=== PATIENT | male | born 1965 ===

== ENCOUNTER 2021-01-30 09:42 | Inpatient (IN) | payer BC, MEDICAID, MEDICARE ==
[2021-01-30] MEDS ORDERED: LACTULOSE 20 GM/30 ML ORAL LIQD PO ONE ×2 (11:00→19:22)
[2021-01-30] MEDS ORDERED: DEXTROSE 50% IN WATER (25GM) 50 ML VIAL IV PRN (11:00)
--- NOTE | 2021-01-30 11:03 | Emergency Department Report ---
ED General Adult HPI - General Chief complaint: Hyperglycemia Stated complaint: AMS/HYPOLYCEMIA PUI?: No Time Seen by Provider: 01/30/21 10:12 Source: patient, EMS ( EMS documentation not available at time of chart dictat ion ), RN notes reviewed, old records reviewed Mode of arrival: Stretcher Limitations: Altered Mental Status, Physical Limitation - History of Present Illness Initial comments: The patient was evaluated in the emergency department for symptoms described in the history of present illness. He/she was evaluated in the context of the global COVID-19 pandemic, which necessitated consideration that the patient might be at risk for infection with the virus that causes COVID-19. Institutional protocols and algorithms that pertain to the evaluation of patients at risk for COVID-19 are in a state of rapid change based on information released by regulatory bodies including the CDC and federal and state organizations. These policies and algorithms were followed during the patient's care in the emergency department. Please note that these policies, procedures and recommendations changed on a rapid basis. This is a 55-year-old gentleman. He is not known to myself previously. 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 This patient was recently admitted to [facility]. He presented with a toxic metabolic encephalopathy in the context of recently missed hemodialysis sessions and hepatic encephalopathy. His encephalopathy was resolved with hemodialysis,rifaxamin, and lactulose. While hospitalized at [facility], hemoglobin trended down from 9-7. He was started on octreotide, GI consulted, EGD performed on January 24 showed no actively bleeding vessels, scattered duodenal polyps. On day of discharge, hemoglobin was 7.3. He was referred to outpatient [facility]. Outpatient work-up was recommended, including outpatient CBC, outpatient GI evaluation for possible liver transplant, and MRI abdomen to better characterize liver. The patient presents to the ER today with a complaint of altered mental status and resolved hypoglycemia. The patient is currently altered. He is breathing spontaneously. He does not really follow commands. As per nursing documentation, initial sugar was 43, patient given amp of D50, blood sugar improved to 393. The patient is not currently accompanied by friends or family at this time to further elaborate on the qualitative nature of symptoms, exacerbating factors, relieving factors or aggravating factors. His last known well time is not explicitly known. He groans in response to painful stimuli. In the emergency room, Accu-Chek within normal limits, he is also found to be hypothermic with a rectal temperature of 91 degrees. His paperwork does not specify who his outpatient senior telecommunications consultant is. It is also not know what specific days he receives hemodialysis. -: unknown Radiation: other Severity scale (0 -10): 0 Quality: other Consistency: other Improves with: other Worsens with: other Associated Symptoms: weakness, other - Related Data Allergies Allergy/AdvReac Type Severity Reaction Status Date / Time No Known Allergies Allergy Unverified 01/30/21 09:58 ED Review of Systems ROS: Stated complaint: AMS/HYPOLYCEMIA Other details as noted in HPI Comment: Unobtainable due to pts medical conditions ED Past Medical Hx - Past Medical History Previous Medical History?: Yes Hx Hypertension: Yes Hx Diabetes: Yes - Surgical History Additional Surgical History: RBKA - Social History Smoking Status: Never Smoker ED Physical Exam - General Limitations: Altered Mental Status, Physical Limitation General appearance: lethargic - Head Head exam: Present: atraumatic, normocephalic - Eye Eye exam: Present: normal appearance, PERRL - ENT ENT exam: Present: mucous membranes dry, normal external ear exam - Neck Neck exam: Present: normal inspection. Absent: tenderness, meningismus - Respiratory Respiratory exam: Present: decreased breath sounds. Absent: respiratory di stress, wheezes, rales, rhonchi, stridor - Cardiovascular Cardiovascular Exam: Present: regular rate, normal rhythm, normal heart sounds. Absent: bradycardia, tachycardia, irregular rhythm, systolic murmur, diastolic murmur, rubs, gallop - GI/Abdominal GI/Abdominal exam: Present: soft. Absent: distended, tenderness, guarding, rebound, rigid, pulsatile mass - Rectal Rectal exam: Present: deferred - exam: Present: normal inspection External exam: Present: normal external exam - Extremities Exam Extremities exam: Present: normal inspection (2+ pulses noted in the bilateral upper extremities. 2+ pulses noted in the bilateral lower extremities. There is no long bony tenderness. The muscular compartments are soft. The pelvis is stable.), other (Status post right below-knee amputation. Right upper extremity fistula noted, without redness, pus or streaking.). Absent: tenderness, calf tenderness - Back Exam Back exam: Present: normal inspection. Absent: tenderness, CVA tenderness (R), CVA tenderness (L), paraspinal tenderness, vertebral tenderness - Neurological Exam Neurological exam: Present: altered, other (The patient is sleepy but arousable. He moves 4 extremities. He groans in response to stimuli.) - Psychiatric Psychiatric exam: Present: other (The patient is nonverbal) - Skin Skin exam: Present: warm, dry, intact, normal color ED Course Vital Signs 01/30/21 01/30/21 01/30/21 10:09 11:34 11:38 Temperature 97.6 F 91.8 F L 91.8 F L Pulse Rate 61 Respiratory 18 Rate Blood Pressure 118/57 [Left] O2 Sat by Pulse 98 Oximetry 01/30/21 13:16 Temperature Pulse Rate 80 Respiratory 10 L Rate Blood Pressure 180/95 [Left] O2 Sat by Pulse 100 Oximetry - Reevaluation(s) Reevaluation #1: 01/30/21 12:25 Differential diagnosis, including but not limited to: Hepatic encephalopathy, uremic encephalopathy, intracranial hemorrhage, pneumonia, urinary tract infection, toxic metabolic encephalopathy, sepsis Assessment and plan: 55-year-old gentleman, who is hypothermic with a core temperature of 91 degrees, history of hypoglycemia, history of hepatic encephalopathy, toxic metabolic encephalopathy, recently discharged from another hospital, who is likely presenting with the same. Start patient on active patient rewarming. Administer ceftriaxone empirically. Continue lactulose and rifaximin. Noncontrast CT scan of the brain negative for acute findings. Serum toxicology study negative. TSH within normal limits. Ammonia level pending. Have discussed with nephrology, Dr. Live, who has examined this patient, and will follow in consultation. Accu-Cheks every 1 hour, as needed dextrose. Patient will be to the medical service under the care of Dr. Fry. We will defer to inpatient team to follow-up on urinalysis. Elevated troponin is likely a type II troponin leak. EKG not consistent with STEMI. 01/30/21 12:27 Reevaluation #2: 01/30/21 12:48 Nursing team reports Accu-Chek of 56. They are instructed to administer dextrose as ordered. Reevaluation #3: 01/30/21 13:58 Patient more awake, eating a meal. Hyperammonemia noted, 74. To defer to inpatient team for further management ED Medical Decision Making - Lab Data Result diagrams: 01/30/21 11:11 01/30/21 11:11 Vital Signs 01/30/21 01/30/21 01/30/21 10:09 11:34 11:38 Temperature 97.6 F 91.8 F L 91.8 F L Pulse Rate 61 Respiratory 18 Rate Blood Pressure 118/57 [Left] O2 Sat by Pulse 98 Oximetry Lab Results 01/30/21 01/30/21 01/30/21 Range/Units 11:11 11:11 11:11 WBC 3.5 L (4.5-11.0) K/mm3 RBC 2.51 L (3.65-5.03) M/mm3 Hgb 7.9 L (11.8-15.2) gm/dl Hct 22.7 L (35.5-45.6) % MCV 90 (84-94) fl MCH 32 (28-32) pg MCHC 35 H (32-34) % RDW 15.1 (13.2-15.2) % Plt Count 70 L (140-440) K/mm3 Lymph % (Auto) 10.2 L (13.4-35.0) % [place] % (Auto) 6.0 (0.0-7.3) % Eos % (Auto) 0.2 (0.0-4.3) % Baso % (Auto) 0.2 (0.0-1.8) % Lymph # (Auto) 0.4 L (1.2-5.4) K/mm3 [place] # (Auto) 0.2 (0.0-0.8) K/mm3 Eos # (Auto) 0.0 (0.0-0.4) K/mm3 Baso # (Auto) 0.0 (0.0-0.1) K/mm3 Seg Neutrophils % 83.4 H (40.0-70.0) % Seg Neutrophils # 2.9 (1.8-7.7) K/mm3 PT 15.0 H (12.2-14.9) Sec. INR 1.20 H (0.87-1.13) APTT 27.2 (24.2-36.6) Sec. Sodium 140 (137-145) mmol/L Potassium 5.0 (3.6-5.0) mmol/L Chloride 101.0 (98-107) mmol/L Carbon Dioxide 24 (22-30) mmol/L Anion Gap 20 mmol/L BUN 81 H (9-20) mg/dL Creatinine 9.1 H (0.8-1.3) mg/dL Estimated GFR 6 ml/min BUN/Creatinine Ratio 9 % Glucose 82 (75-100) mg/dL Lactic Acid (0.7-2.0) mmol/L Calcium 9.0 (8.4-10.2) mg/dL Magnesium 2.30 (1.7-2.3) mg/dL Total Bilirubin 0.70 (0.1-1.2) mg/dL AST 15 (5-40) units/L ALT 14 (7-56) units/L Alkaline Phosphatase 151 H (35-129) units/L Total Creatine Kinase 45 L (55-170) units/L Troponin T 0.137 H* (0.00-0.029) ng/mL Total Protein 6.6 (6.3-8.2) g/dL Albumin 2.8 L (3.9-5) g/dL Albumin/Globulin Ratio 0.7 % TSH (0.270-4.200) mlU/mL Salicylates (2.8-20.0) mg/dL Acetaminophen (10.0-30.0) ug/mL Plasma/Serum Alcohol (0-0.07) % 01/30/21 01/30/21 01/30/21 Range/Units 11:11 11:11 11:11 WBC (4.5-11.0) K/mm3 RBC (3.65-5.03) M/mm3 Hgb (11.8-15.2) gm/dl Hct (35.5-45.6) % MCV (84-94) fl MCH (28-32) pg MCHC (32-34) % RDW (13.2-15.2) % Plt Count (140-440) K/mm3 Lymph % (Auto) (13.4-35.0) % [place] % (Auto) (0.0-7.3) % Eos % (Auto) (0.0-4.3) % Baso % (Auto) (0.0-1.8) % Lymph # (Auto) (1.2-5.4) K/mm3 [place] # (Auto) (0.0-0.8) K/mm3 Eos # (Auto) (0.0-0.4) K/mm3 Baso # (Auto) (0.0-0.1) K/mm3 Seg Neutrophils % (40.0-70.0) % Seg Neutrophils # (1.8-7.7) K/mm3 PT (12.2-14.9) Sec. INR (0.87-1.13) APTT (24.2-36.6) Sec. Sodium (137-145) mmol/L Potassium (3.6-5.0) mmol/L Chloride (98-107) mmol/L Carbon Dioxide (22-30) mmol/L Anion Gap mmol/L BUN (9-20) mg/dL Creatinine (0.8-1.3) mg/dL Estimated GFR ml/min BUN/Creatinine Ratio % Glucose (75-100) mg/dL Lactic Acid 1.40 (0.7-2.0) mmol/L Calcium (8.4-10.2) mg/dL Magnesium (1.7-2.3) mg/dL Total Bilirubin (0.1-1.2) mg/dL AST (5-40) units/L ALT (7-56) units/L Alkaline Phosphatase (35-129) units/L Total Creatine Kinase (55-170) units/L Troponin T (0.00-0.029) ng/mL Total Protein (6.3-8.2) g/dL Albumin (3.9-5) g/dL Albumin/Globulin Ratio % TSH 1.690 (0.270-4.200) mlU/mL Salicylates < 0.3 L (2.8-20.0) mg/dL Acetaminophen (10.0-30.0) ug/mL Plasma/Serum Alcohol (0-0.07) % 01/30/21 01/30/21 Range/Units 11:11 11:11 WBC (4.5-11.0) K/mm3 RBC (3.65-5.03) M/mm3 Hgb (11.8-15.2) gm/dl Hct (35.5-45.6) % MCV (84-94) fl MCH (28-32) pg MCHC (32-34) % RDW (13.2-15.2) % Plt Count (140-440) K/mm3 Lymph % (Auto) (13.4-35.0) % [place] % (Auto) (0.0-7.3) % Eos % (Auto) (0.0-4.3) % Baso % (Auto) (0.0-1.8) % Lymph # (Auto) (1.2-5.4) K/mm3 [place] # (Auto) (0.0-0.8) K/mm3 Eos # (Auto) (0.0-0.4) K/mm3 Baso # (Auto) (0.0-0.1) K/mm3 Seg Neutrophils % (40.0-70.0) % Seg Neutrophils # (1.8-7.7) K/mm3 PT (12.2-14.9) Sec. INR (0.87-1.13) APTT (24.2-36.6) Sec. Sodium (137-145) mmol/L Potassium (3.6-5.0) mmol/L Chloride (98-107) mmol/L Carbon Dioxide (22-30) mmol/L Anion Gap mmol/L BUN (9-20) mg/dL Creatinine (0.8-1.3) mg/dL Estimated GFR ml/min BUN/Creatinine Ratio % Glucose (75-100) mg/dL Lactic Acid (0.7-2.0) mmol/L Calcium (8.4-10.2) mg/dL Magnesium (1.7-2.3) mg/dL Total Bilirubin (0.1-1.2) mg/dL AST (5-40) units/L ALT (7-56) units/L Alkaline Phosphatase (35-129) units/L Total Creatine Kinase (55-170) units/L Troponin T (0.00-0.029) ng/mL Total Protein (6.3-8.2) g/dL Albumin (3.9-5) g/dL Albumin/Globulin Ratio % TSH (0.270-4.200) mlU/mL Salicylates (2.8-20.0) mg/dL Acetaminophen 5.0 L (10.0-30.0) ug/mL Plasma/Serum Alcohol < 0.01 (0-0.07) % - EKG Data -: EKG Interpreted by Me EKG shows normal: sinus rhythm Rate: normal - EKG Data When compared to previous EKG there are: previous EKG unavailable 01/30/21 12:23 EKG interpreted at 11: 22 Sinus rhythm, 68 bpm. Normal axis. QTC prolonged, motion artifact. Poor R wave progression. Abnormal EKG. Not a STEMI. No prior for comparison - Radiology Data Radiology results: report reviewed, image reviewed CHEST 1 VIEW INDICATION: Altered mental status, difficulty in breathing. COMPARISON: None FINDINGS: Support devices: None. Heart: Within normal limits. Lungs/Pleura: No acute air space or interstitial disease. Additional findings: None. IMPRESSION: No acute findings. Signer Name: Miguel Banks Jr, MD Signed: 01/30/2021 10:45 AM Workstation Name: [id number] CT BRAIN: 01/30/2021 INDICATION / CLINICAL INFORMATION: Altered Mental Status. COMPARISON: None available. FINDINGS: BRAIN/INTRACRANIAL STRUCTURES: Unenhanced CT images of the brain demonstrate no evidence of acute intracranial abnormality. Ventricles and sulci are within normal limits of size and shape for a patient of this age. Chronic white matter hypoattenuation is noted. There is possible chronic lacunar changes present in the fiona. There is no evidence of acute ischemic injury, hemorrhage, or mass. Prominent atherosclerotic vascular calcifications are associated with the distal vertebral arteries, left greater than right. Atherosclerotic changes are also associated with distal internal carotid arteries. EXTRACRANIAL STRUCTURES: Patient is status post left ocular surgery. IMPRESSION: No acute intracranial abnormality. All CT scans at this location are performed using dose reduction to ALARA by means of automated exposure control. Signer Name: Lanre Mc MD Signed: 01/30/2021 10:53 AM Workstation Name: [id number] Critical Care Time: Yes Critical care time in (mins) excluding proc time.: 35 Critical care attestation.: If time is entered above; I have spent that time in minutes in the direct care of this critically ill patient, excluding procedure time. ED Disposition Clinical Impression: Acute encephalopathy, End stage renal disease, History of hypoglycemia, Amputation of right lower extremity below knee, Hypothermia, Anemia Disposition: DC-09 OP ADMIT IP TO THIS HOSP Is pt being admited?: Yes Does the pt Need Aspirin: No Condition: Fair Referrals: PRIMARY CARE, [Primary Care Provider] - 3-5 Days
[2021-01-30] MEDS ORDERED: LACTULOSE ENEMA 1000 ML PR SCH (11:30)
[2021-01-30 11:35] LABS: Basophils % (Auto) 0.2 % (0.0-1.8); Eosinophils % (Auto) 0.2 % (0.0-4.3); Hematocrit 22.7 % (35.5-45.6); Hemoglobin 7.9 gm/dl (11.8-15.2); Lymphocytes # (Auto) 0.4 K/mm3 (1.2-5.4); Lymphocytes % (Auto) 10.2 % (13.4-35.0); Mean Corpuscular HGB Conc 35 % (32-34); Mean Corpuscular Volume 90 fl (84-94); Monocytes # (Auto) 0.2 K/mm3 (0.0-0.8); Red Blood Count 2.51 M/mm3 (3.65-5.03); Red Cell Distribution Width 15.1 % (13.2-15.2)
[2021-01-30 11:36] LABS: Platelet Count 70 K/mm3 (140-440)
--- NOTE | 2021-01-30 11:42 | Consultation ---
History of Present Illness - Reason for Consult Consult date: 01/30/21 end stage renal disease - History of Present Illness The patient is a 55 YO male with history significant for HTN, DM type 2, ESRD on HD (MWF), Noncompliance with outpatient dialysis, Anemia, HBV, Chronic Liver Disease, Cirrhosis complicated by Esophageal Varices and Debility who [facility] for evaluation of AMS. Patient is confused with and is unable to provide a good history. Family found patient to have increased confusion. EMS was notified and upon arrival the patient was found to have a blood glucose in the 50s. The patient was treated with supportive care and subsequently transported to the ED. The patient was found to have hepatic encephalopathy. He was admitted for further evaluation. Nephrology was consulted for further evaluation. Past History Past Medical History: other (See HPI.) Medications and Allergies Allergies Allergy/AdvReac Type Severity Reaction Status Date / Time No Known Allergies Allergy Unverified 01/30/21 09:58 Active Meds: Active Medications Dextrose (Dextrose 50% In Water (25gm) 50 Ml Vial) 50 gm IV Q30MIN PRN; Protocol PRN Reason: Hypoglycemia Lactulose (Lactulose Enema 1000 Ml) 20 gm OH NOW LEYLA Stop: 01/30/21 13:00 Review of Systems ROS unobtainable: due to mental status Exam - Vital Signs Vital signs: Vital Signs Temp Pulse Resp BP Pulse Ox 97.6 F 61 18 118/57 98 01/30/21 10:09 01/30/21 10:09 01/30/21 10:09 01/30/21 10:09 01/30/21 10:09 Results - Lab Results 01/30/21 11:11 01/30/21 11:11 Assessment and Plan 1. ESRD: Patient is on maintenance hemodialysis three times a week, MWF schedule. Per patient last HD was on 01/28. Meds dosage based on GFR. Hemodialysis today. 2. FEN: Monitor lytes and volume status. 3. Anemia, POA: 2/2 ESRD and Liver disease. Epogen with HD. 4. Encephalopathy, POA: Likely hepatic encephalopathy. Lactulose. Hypoglycemia on admission. 5. Hypoglycemia: D5 infusion. 6. Thrombocytopenia, POA: 7. Hypertension: Monitor BP. Adjust meds as appropriate. Subjective: Patient was seen and examined at the bedside. General Appearance: General appearance: well-developed, appears stated age, not in distress HEENT: ATNC, pupils equal Neck: trachea midline Respiratory: ctab Heart: regular, S1S2, no murmur Abdomen: soft, bowel sounds heard, appears distended, not tender Integumentary: no rash, warm and dry Neurologic: lethargic, not following any command, confused Ext: no edema, R BKA Hemodialysis access: R arm AVF
[2021-01-30 11:43] LABS: INR 1.2 (0.87-1.13)
[2021-01-30 11:44] LABS: Partial Thromboplastin Time 27.2 Sec. (24.2-36.6)
--- NOTE | 2021-01-30 11:50 | XRay Report ---
CHEST 1 VIEW INDICATION: Altered mental status, difficulty in breathing. COMPARISON: None FINDINGS: Support devices: None. Heart: Within normal limits. Lungs/Pleura: No acute air space or interstitial disease. Additional findings: None. IMPRESSION: No acute findings. Signer Name: Miguel Banks Jr, MD Signed: 01/30/2021 11:45 AM Workstation Name: [id number]
--- NOTE | 2021-01-30 11:57 | Cat Scan Report ---
CT BRAIN: 01/30/2021 INDICATION / CLINICAL INFORMATION: Altered Mental Status. COMPARISON: None available. FINDINGS: BRAIN/INTRACRANIAL STRUCTURES: Unenhanced CT images of the brain demonstrate no evidence of acute int racranial abnormality. Ventricles and sulci are within normal limits of size and shape for a patient of this age. Chronic wh ite matter hypoattenuation is noted. There is possible chronic lacunar changes present in the fiona. There is no evidence of acute ischemic injury, hemorrhage, or mass. Prominent atherosclerotic vascular calcifications are associated with the distal vertebral arteries, left greater than right. Atherosclerotic changes are also associated with distal internal carotid art eries. EXTRACRANIAL STRUCTURES: Patient is status post left ocular surgery. IMPRESSION: No acute intracranial abnormality. All CT scans at this location are performed using dose reduction to ALARA by means of automated expos ure control. Signer Name: Lanre Mc MD Signed: 01/30/2021 11:53 AM Workstation Name: [id number]
[2021-01-30 11:58] LABS: Albumin 2.8 g/dL (3.9-5)
[2021-01-30] MEDS ORDERED: cefTRIAXone/NS 2 GM/100 ML 2 GM/100 ML BAG IV ONE (12:15)
--- NOTE | 2021-01-30 12:49 | History and Physical Report ---
History of Present Illness Chief complaint: He is confused History of present illness: 55 YO Male with ESRD on HD, Noncompliance with outpatient dialysis, Anemia, HBV, Chronic Liver Disease, Cirrhosis complicated by Esophageal Varices, HTN, Debility, DM presents to ED for evaluation. Patient is confused with diminished cognition and is unable to provide detailed history. Patient is only able to provide minimal history. Patient history taken from EMS staff, ED staff as well as patient family members. Patient family report the patient was found to have increased confusion today. EMS was notified and upon arrival the patient was found to be in distress with a blood glucose in the 50s. The patient was treate d with supportive care and subsequently transported to [facility] for further care and evaluation of the aforementioned symptoms. The patient was seen and evaluated in the emergency department. All lab and imaging studies reviewed. The patient was found to have hepatic encephalopathy complicated by diminished cognition, end-stage renal disease in need of urgent dialysis, as well as hypoglycemia. Nephrology team consulted in ED. Patient found to have recurrent hypoglycemia and was initiated on a dextrose drip with every hour glucose monitoring. The patient was admitted to [facility] due to increased risk of decompensation. No further history is obtainable. Patient is confused and lethargic the time my evaluation but has a positive gag reflex and is able to protect his airway without difficulty. No prior admission for review. No medication listed at time of admission for reconciliation. Past History Past Medical History: hypertension, hyperlipidemia Past Surgical History: Other (Right BKA) Social history: single. denies: smoking, alcohol abuse, prescription drug abuse Family history: hypertension Medications and Allergies Allergies Allergy/AdvReac Type Severity Reaction Status Date / Time No Known Allergies Allergy Unverified 01/30/21 09:58 Active Meds: Active Medications Dextrose (Dextrose 50% In Water (25gm) 50 Ml Vial) 50 gm IV Q30MIN PRN; Protocol PRN Reason: Hypoglycemia Dextrose/Sodium Chloride (D5/0.45ns) 1,000 mls @ 250 mls/hr IV DIRECT LEYLA Lactulose (Lactulose Enema 1000 Ml) 20 gm WI NOW LEYLA Stop: 01/30/21 13:00 Rifaximin (Rifaximin 550 Mg Tab) 550 mg PO NOW ONE Stop: 01/30/21 13:01 Review of Systems ROS unobtainable: due to mental status Exam - Constitutional Vitals: Temp Pulse Resp BP Pulse Ox 91.8 F L 61 18 118/57 98 01/30/21 11:38 01/30/21 10:09 01/30/21 10:09 01/30/21 10:09 01/30/21 10:09 General appearance: Present: mild distress, disheveled, malodorous - EENT Eyes: Present: PERRL ENT: clear oral mucosa, hearing decreased - Neck Neck: Present: supple, normal ROM - Respiratory Respiratory effort: normal Respiratory: bilateral: CTA - Cardiovascular Heart Sounds: Present: S1 & S2. Absent: rub, click - Extremities Extremities: pulses symmetrical, No edema Peripheral Pulses: within normal limits - Abdominal General gastrointestinal: Present: soft, non-tender, non-distended, normal bowel sounds Male genitourinary: Present: normal - Integumentary Integumentary: Present: clear, warm, dry - Musculoskeletal Musculoskeletal: generalized weakness - Psychiatric Psychiatric: appropriate mood/affect, intact judgment & insight, no memory intac t - Neurologic Neurologic: CNII-XII intact, moves all extremities HEART Score - HEART Score Troponin: Troponin T 0.137 ng/mL (0.00-0.029) H* 01/30/21 11:11 Results - Labs CBC & Chem 7: 01/30/21 11:11 01/30/21 11:11 Labs: Abnormal lab results 01/30/21 01/30/21 01/30/21 Range/Units 11:11 11:11 11:11 WBC 3.5 L (4.5-11.0) K/mm3 RBC 2.51 L (3.65-5.03) M/mm3 Hgb 7.9 L (11.8-15.2) gm/dl Hct 22.7 L (35.5-45.6) % MCHC 35 H (32-34) % Plt Count 70 L (140-440) K/mm3 Lymph % (Auto) 10.2 L (13.4-35.0) % Lymph # (Auto) 0.4 L (1.2-5.4) K/mm3 Seg Neutrophils % 83.4 H (40.0-70.0) % PT 15.0 H (12.2-14.9) Sec. INR 1.20 H (0.87-1.13) BUN 81 H (9-20) mg/dL Creatinine 9.1 H (0.8-1.3) mg/dL Alkaline Phosphatase 151 H (35-129) units/L Total Creatine Kinase 45 L (55-170) units/L Troponin T 0.137 H* (0.00-0.029) ng/mL Albumin 2.8 L (3.9-5) g/dL Salicylates (2.8-20.0) mg/dL Acetaminophen (10.0-30.0) ug/mL 01/30/21 01/30/21 Range/Units 11:11 11:11 WBC (4.5-11.0) K/mm3 RBC (3.65-5.03) M/mm3 Hgb (11.8-15.2) gm/dl Hct (35.5-45.6) % MCHC (32-34) % Plt Count (140-440) K/mm3 Lymph % (Auto) (13.4-35.0) % Lymph # (Auto) (1.2-5.4) K/mm3 Seg Neutrophils % (40.0-70.0) % PT (12.2-14.9) Sec. INR (0.87-1.13) BUN (9-20) mg/dL Creatinine (0.8-1.3) mg/dL Alkaline Phosphatase (35-129) units/L Total Creatine Kinase (55-170) units/L Troponin T (0.00-0.029) ng/mL Albumin (3.9-5) g/dL Salicylates < 0.3 L (2.8-20.0) mg/dL Acetaminophen 5.0 L (10.0-30.0) ug/mL Assessment and Plan - Patient Problems (1) End stage renal disease Current Visit: No Status: Acute Plan to address problem: Nephrology team consulted in ED. Dialysis as per renal team, strict I/O, monitor urine output every shift, avoid nephrotoxic agents. (2) Hepatic encephalopathy Current Visit: Yes Status: Acute Plan to address problem: CT head, neuro check, seizure precaution, aspiration precautions, fall precautions, supportive care. (3) Chronic liver disease and cirrhosis Current Visit: Yes Status: Acute Plan to address problem: Outpatient GI follow-up for possible liver transplant, supportive care. Ammonia level, continue medical management. (4) Hypoglycemia Current Visit: Yes Status: Acute Plan to address problem: Dextrose drip, Accu-Chek every hour, continue medical management. Admit to IMCU. (5) DVT prophylaxis Current Visit: Yes Status: Acute Plan to address problem: SCD to bilateral lower extremities while in bed.
[2021-01-30] MEDS ORDERED: DEXTROSE 50% IN WATER (25GM) 50 ML SYRINGE IV ONE (12:51)
[2021-01-30] MEDS ORDERED: SODIUM CHLORIDE 0.9% 100 ML IV PRN (13:00)
[2021-01-30] MEDS ORDERED: D5W/0.45% NACL 1,000 ML IV SCH (13:00)
[2021-01-30] MEDS ORDERED: DEXTROSE 50% IN WATER (25GM) 50 ML SYRINGE IV PRN ×2 (13:00→22:15)
[2021-01-30] MEDS ORDERED: EPOETIN ALFA-EPBX 20,000 UNIT/1 ML VIAL SUB-Q PRN (13:00)
[2021-01-30] MEDS ORDERED: RIFAXIMIN 550 MG TAB PO ONE (13:00)
[2021-01-30 13:21] LABS: Chol/HDL Ratio 2.43 %
[2021-01-30] MEDS ORDERED: ALBUTEROL 2.5 MG/3 ML NEBU IH PRN (13:26)
[2021-01-30 15:31] LABS: Hepatitis B Surface Antigen Non-Reactive (Negative); Hepatitis C Virus Antibody Non-Reactive (NonReactive)
[2021-01-30] MEDS ORDERED: traMADol 50 MG TAB PO PRN (22:17)
[2021-01-31 00:20] LABS: Amphetamine Screen,Urine PRESUMPTIVE NEGATIVE; Benzodiazepines Screen,Urine PRESUMPTIVE NEGATIVE; Cannabinoid Screen,Urine PRESUMPTIVE NEGATIVE; Cocaine Screen,Urine PRESUMPTIVE NEGATIVE; Methadone Screen,Urine PRESUMPTIVE NEGATIVE; Opiate Screen,Urine PRESUMPTIVE NEGATIVE
[2021-01-31 00:28] LABS: Bilirubin,Urine NEG (Negative); Blood,Urine NEG (Negative); Color,Urine Yellow (Yellow); Mucus,Urine FEW /HPF
[2021-01-31 06:53] LABS: Albumin 2.5 g/dL (3.9-5); Calcium 8.3 mg/dL (8.4-10.2)
--- NOTE | 2021-01-31 09:22 | Progress Note ---
Assessment and Plan 1. ESRD: Patient is on maintenance hemodialysis three times a week, MWF schedule. Per patient last HD was on 01/28. Meds dosage based on GFR. Hemodialysis: 01/30. 2. FEN: Monitor lytes and volume status. 3. Anemia, POA: 2/2 ESRD and Liver disease. Epogen with HD. 4. Encephalopathy, POA: Likely hepatic encephalopathy. Lactulose. Hypoglycemia on admission. MS is better today. 5. Hypoglycemia: Bl sugar is high now. Monitor. 6. Thrombocytopenia, POA: 7. Hypertension: Monitor BP. Adjust meds as appropriate. Subjective: Patient was seen and examined at the bedside. Doing ok. General Appearance: General appearance: well-developed, appears stated age, not in distress HEENT: ATNC, pupils equal Neck: trachea midline Respiratory: ctab Heart: regular, S1S2, no murmur Abdomen: soft, bowel sounds heard, appears distended, not tender Integumentary: no rash, warm and dry Neurologic: alert, able to move extremities, slight confusion noted Ext: no edema, R BKA Hemodialysis access: R arm AVF Subjective Date of service: 01/31/21 Objective - Vital Signs Vital signs: Vital Signs - 12hr 01/30/21 01/30/21 01/30/21 21:30 22:00 22:30 Temperature Pulse Rate 93 H 93 H 97 H Respiratory 15 11 L 15 Rate Blood Pressure 140/31 140/55 174/90 O2 Sat by Pulse 100 99 100 Oximetry 01/30/21 01/30/21 01/30/21 23:00 23:16 23:30 Temperature 97.8 F Pulse Rate 93 H 93 H 100 H Respiratory 10 L 12 13 Rate Blood Pressure 143/49 159/54 134/34 O2 Sat by Pulse 100 97 100 Oximetry 01/31/21 01/31/21 01/31/21 00:30 00:40 00:50 Temperature Pulse Rate 96 H 97 H Respiratory 10 L 12 Rate Blood Pressure 144/55 144/55 186/51 O2 Sat by Pulse 98 100 100 Oximetry 01/31/21 01/31/21 01/31/21 01:00 01:48 03:16 Temperature 97.8 F Pulse Rate 93 H 97 H Respiratory 18 Rate Blood Pressure 124/41 124/62 O2 Sat by Pulse 99 98 Oximetry 01/31/21 07:39 Temperature Pulse Rate 92 H Respiratory Rate Blood Pressure 126/64 O2 Sat by Pulse 98 Oximetry - Lab 01/30/21 11:11 01/31/21 05:48 Most recent lab results Calcium 8.3 mg/dL (8.4-10.2) L 01/31/21 05:48 Magnesium 2.30 mg/dL (1.7-2.3) 01/30/21 11:11 Medications & Allergies - Medications Allergies/Adverse Reactions: Allergies No Known Allergies Allergy (Unverified 01/30/21 09:58) Home Medications: Home Medications Medication Instructions Recorded Confirmed Last Taken Type Insulin Glargine [Lantus VIAL] 30 unit SUB-Q QHS 01/31/21 01/31/21 Unknown History Lispro Insulin [HumaLOG] 0 unit SQ ACHS 01/31/21 01/31/21 Unknown History Active Medications: Generic Name Dose Route Start Last Admin Trade Name Freq PRN Reason Stop Dose Admin Albuterol 2.5 mg 01/30/21 13:26 Albuterol 2.5 Mg/3 Ml Nebu IH Q4HRT PRN Shortness Of Breath Dextrose 50 ml 01/30/21 22:15 Dextrose 50% In Water (25gm) 50 Ml Syringe IV Q30MIN PRN Hypoglycemia Protocol Dextrose/Sodium Chloride 1,000 mls @ 250 mls/hr 01/30/21 13:00 01/30/21 13:03 D5/0.45ns IV 250 mls/hr DIRECT LEYLA Administration Sodium Chloride 100 mls @ 999 mls/hr 01/30/21 13:00 Nacl 0.9% IV OLIVIA PRN Hypotension Insulin Human Regular 0 units 01/31/21 07:30 Insulin Regular, Human 100 Units/1 Ml SUB-Q ACHS LEYLA Protocol Ondansetron HCl 4 mg 01/30/21 13:26 Ondansetron 4 Mg/2 Ml Inj IV Q8H PRN Nausea And Vomiting Sodium Chloride 10 ml 01/30/21 22:00 01/30/21 22:11 Sodium Chloride 0.9% 10 Ml Flush Syringe IV 10 ml BID LEYLA Administration Sodium Chloride 10 ml 01/30/21 13:26 Sodium Chloride 0.9% 10 Ml Flush Syringe IV PRN PRN LINE FLUSH Tramadol HCl 50 mg 01/30/21 22:17 01/30/21 23:00 Tramadol 50 Mg Tab PO 50 mg Q6H PRN Administration Pain, Moderate (4-6)
[2021-01-31] MEDS: INSULIN REGULAR, HUMAN 100 UNITS/1 ML SUB-Q SCH ×5 (09:33→22:00)
--- NOTE | 2021-01-31 12:05 | Electrocardiograph Report ---
[facility] Test Date: 2021-01-30 Test Time: 11:22:48 Pat Name: WHITNEY ESPOSITO Department: Room: A479 Gender: M Service Desk Technician: FRED : 1965 Requested By: GAY MACDONALD Order Number: [id number] Reading MD: Mary Vaughn Measurements Intervals [place] Rate: 68 P: 63 [place]: 131 QRS: -1 QRSD: 106 T: 33 QT: 485 QTc: 515 Interpretive Statements Sinus rhythm Prolonged QT interval No previous ECG available for comparison Electronically Signed On 01-31-2021 12:04:40 EDT by Mary Vaughn
[2021-02-01 06:22] LABS: Hemoglobin 6.7 gm/dl (11.8-15.2); Mean Corpuscular HGB Conc 35 % (32-34); Mean Corpuscular Volume 91 fl (84-94); Red Blood Count 2.12 M/mm3 (3.65-5.03); Red Cell Distribution Width 15.1 % (13.2-15.2)
[2021-02-01 06:24] LABS: Hematocrit 19.3 % (35.5-45.6); Platelet Count 62 K/mm3 (140-440)
[2021-02-01 06:43] LABS: Calcium 8.6 mg/dL (8.4-10.2)
[2021-02-01] MEDS ORDERED: SODIUM CHLORIDE 0.9% 500 ML 500 ML IV NR (07:40)
--- NOTE | 2021-02-01 08:15 | Progress Note ---
Assessment and Plan Assessment and Plan (1) Hepatic encephalopathy Current Visit: Yes Status: Acute Plan to address problem: CT head, neuro check, seizure precaution, aspiration precautions, fall precautions, supportive care. Patient lethargic and confused Continue lactulose Repeat ammonia level (2) End stage renal disease Current Visit: No Status: Acute Plan to address problem: Nephrology team consulted in ED. Dialysis as per renal team, strict I/O, monitor urine output every shift, avoid nephrotoxic agents. (3) Chronic liver disease and cirrhosis Current Visit: Yes Status: Acute Plan to address problem: Outpatient GI follow-up for possible liver transplant, supportive care. Ammonia level, continue medical management. (4) Hypoglycemia Current Visit: Yes Status: Acute Plan to address problem: Dextrose drip, Accu-Chek every hour, continue medical management. Admit to IMCU. (5) DVT prophylaxis Current Visit: Yes Status: Acute Plan to address problem: SCD to bilateral lower extremities while in bed. Subjective Date of service: 01/31/21 Principal diagnosis: Hepatic encephalopathy, end-stage renal disease on dialysis Interval history: History of present illness: 55 YO Male with ESRD on HD, Noncompliance with outpatient dialysis, Anemia, HBV, Chronic Liver Disease, Cirrhosis complicated by Esophageal Varices, HTN, Debility, DM presents to ED for evaluation. Patient is confused with diminished cognition and is unable to provide detailed history. Patient is only able to provide minimal history. Patient history taken from EMS staff, ED staff as well as patient family members. Patient family report the patient was found to have increased confusion today. EMS was notified and upon arrival the patient was found to be in distress with a blood glucose in the 50s. The patient was treated with supportive care and subsequently transported to [facility] for further care and evaluation of the aforementioned symptoms. The patient was seen and evaluated in the emergency department. All lab and imaging studies reviewed. The patient was found to have hepatic encephalopathy complicated by diminished cognition, end-stage renal disease in need of urgent dialysis, as well as hypoglycemia. Nephrology team consulted in ED. Patient found to have recurrent hypoglycemia and was initiated on a dextrose drip with every hour glucose monitoring. The patient was admitted to IMCU due to increased risk of decompensation. No further history is obtainable. Patient is confused and lethargic the time my evaluation but has a positive gag reflex and is able to protect his airway without difficulty. No prior admission for review. No medication listed at time of admission for reconciliation. Day #2 01/31/2021 Patient still lethargic and confused Objective - Constitutional Vitals: Vital Signs - 12hr 01/31/21 01/31/21 02/01/21 22:00 23:36 04:29 Temperature 98.6 F 98.0 F Pulse Rate 94 H 94 H 81 Respiratory 20 18 Rate Blood Pressure 137/71 132/65 O2 Sat by Pulse 100 98 Oximetry General appearance: Present: no acute distress, well-nourished - EENT Eyes: PERRL, EOM intact ENT: hearing intact, clear oral mucosa Ears: bilateral: normal - Neck Neck: supple, normal ROM - Respiratory Respiratory effort: normal Respiratory: bilateral: CTA - Breasts Breasts: normal - Cardiovascular Heart rate: 78 Rhythm: regular Heart Sounds: Present: S1 & S2. Absent: gallop, rub Extremities: pulses intact, No edema, normal color, Full ROM - Gastrointestinal General gastrointestinal: Present: soft, non-tender, non-distended, normal bowel sounds - Genitourinary Male genitourinary: normal - Integumentary Integumentary: clear, warm, dry - Musculoskeletal Musculoskeletal: strength equal bilaterally, generalized weakness - Neurologic Neurologic: moves all extremities, other (Patient lethargic and confused) - Psychiatric Psychiatric: memory intact, appropriate mood/affect, intact judgment & insight - Allied health notes Allied health notes reviewed: nursing, case management - Labs CBC & Chem 7: 02/01/21 05:08 02/01/21 05:08 Labs: Abnormal lab results 01/30/21 01/31/21 01/31/21 Range/Units 11:11 07:40 11:23 WBC (4.5-11.0) K/mm3 RBC (3.65-5.03) M/mm3 Hgb (11.8-15.2) gm/dl Hct (35.5-45.6) % MCHC (32-34) % Plt Count (140-440) K/mm3 Sodium (137-145) mmol/L Chloride (98-107) mmol/L BUN (9-20) mg/dL Creatinine (0.8-1.3) mg/dL Glucose (75-100) mg/dL POC Glucose 392 H 380 H (70-105) mg/dL Phosphorus (2.5-4.5) mg/dL Crossmatch See Detail 01/31/21 01/31/21 02/01/21 Range/Units 16:30 20:33 00:39 WBC (4.5-11.0) K/mm3 RBC (3.65-5.03) M/mm3 Hgb (11.8-15.2) gm/dl Hct (35.5-45.6) % MCHC (32-34) % Plt Count (140-440) K/mm3 Sodium (137-145) mmol/L Chloride (98-107) mmol/L BUN (9-20) mg/dL Creatinine (0.8-1.3) mg/dL Glucose (75-100) mg/dL POC Glucose 312 H 485 H 159 H (70-105) mg/dL Phosphorus (2.5-4.5) mg/dL Crossmatch 02/01/21 02/01/21 Range/Units 05:08 05:08 WBC 3.5 L (4.5-11.0) K/mm3 RBC 2.12 L (3.65-5.03) M/mm3 Hgb 6.7 L (11.8-15.2) gm/dl Hct 19.3 L* (35.5-45.6) % MCHC 35 H (32-34) % Plt Count 62 L (140-440) K/mm3 Sodium 135 L (137-145) mmol/L Chloride 95.0 L (98-107) mmol/L BUN 67 H (9-20) mg/dL Creatinine 7.9 H (0.8-1.3) mg/dL Glucose 214 H (75-100) mg/dL POC Glucose (70-105) mg/dL Phosphorus 6.00 H (2.5-4.5) mg/dL Crossmatch HEART Score - HEART Score Troponin: Troponin T 0.137 ng/mL (0.00-0.029) H* 01/30/21 11:11
[2021-02-01] MEDS ORDERED: LACTULOSE 20 GM/30 ML ORAL LIQD PO SCH (09:00)
[2021-02-01] MEDS: INSULIN REGULAR, HUMAN 100 UNITS/1 ML SUB-Q SCH ×4 (10:13→23:39)
[2021-02-01] MEDS ORDERED: SODIUM CHLORIDE 0.9% 250ML 250 ML ONE (10:16)
--- NOTE | 2021-02-01 13:18 | Progress Note ---
Assessment and Plan 1. ESRD: Patient is on maintenance hemodialysis three times a week, MWF schedule. Per patient last HD was on 01/28. Meds dosage based on GFR. Hemodialysis: 01/30, 02/01. 2. FEN: Monitor lytes and volume status. 3. Anemia, POA: 2/2 ESRD and Liver disease. Epogen with HD. S/p PRBC today. 4. Encephalopathy, POA: Likely hepatic encephalopathy. Lactulose. Hypoglycemia on admission. MS is better. 5. DM type 2: Hypoglycemia on admission. Bl sugar is high now. Monitor. 6. Thrombocytopenia, POA: 7. Hypertension: Monitor BP. Adjust meds as appropriate. Subjective: Patient was seen and examined at the bedside. Doing ok. General Appearance: General appearance: well-developed, appears stated age, not in distress HEENT: ATNC, pupils equal Neck: trachea midline Respiratory: ctab Heart: regular, S1S2, no murmur Abdomen: soft, bowel sounds heard, appears distended, not tender Integumentary: no rash, warm and dry Neurologic: alert, able to move extremities, slight confusion noted Ext: no edema, R BKA Hemodialysis access: R arm AVF Subjective Date of service: 02/01/21 Principal diagnosis: Hepatic encephalopathy, end-stage renal disease on dialysis Objective - Vital Signs Vital signs: Vital Signs - 12hr 02/01/21 02/01/21 02/01/21 04:29 10:00 10:05 Temperature 98.0 F 97.9 F Pulse Rate 81 87 79 Respiratory 18 20 Rate Blood Pressure 132/65 178/76 165/77 O2 Sat by Pulse 98 Oximetry 02/01/21 02/01/21 02/01/21 10:15 10:30 10:45 Temperature Pulse Rate 86 92 H 63 Respiratory Rate Blood Pressure 156/63 142/56 154/60 O2 Sat by Pulse Oximetry 02/01/21 02/01/21 02/01/21 11:00 11:15 11:30 Temperature Pulse Rate 96 H 94 H 96 H Respiratory Rate Blood Pressure 146/64 157/66 154/64 O2 Sat by Pulse Oximetry 02/01/21 02/01/21 02/01/21 11:45 12:00 12:15 Temperature Pulse Rate 94 H 73 95 H Respiratory Rate Blood Pressure 149/91 173/75 152/66 O2 Sat by Pulse Oximetry - Lab 02/01/21 19:15 02/01/21 05:08 Most recent lab results Calcium 8.6 mg/dL (8.4-10.2) 02/01/21 05:08 Phosphorus 6.00 mg/dL (2.5-4.5) H 02/01/21 05:08 Magnesium 2.30 mg/dL (1.7-2.3) 01/30/21 11:11 Medications & Allergies - Medications Allergies/Adverse Reactions: Allergies No Known Allergies Allergy (Unverified 01/30/21 09:58) Home Medications: Home Medications Medication Instructions Recorded Confirmed Last Taken Type Insulin Glargine [Lantus VIAL] 30 unit SUB-Q QHS 01/31/21 01/31/21 Unknown History Lispro Insulin [HumaLOG] 0 unit SQ ACHS 01/31/21 01/31/21 Unknown History Active Medications: Generic Name Dose Route Start Last Admin Trade Name Freq PRN Reason Stop Dose Admin Albuterol 2.5 mg 01/30/21 13:26 Albuterol 2.5 Mg/3 Ml Nebu IH Q4HRT PRN Shortness Of Breath Dextrose 50 ml 01/30/21 22:15 Dextrose 50% In Water (25gm) 50 Ml Syringe IV Q30MIN PRN Hypoglycemia Protocol Sodium Chloride 100 mls @ 999 mls/hr 01/30/21 13:00 Nacl 0.9% IV OLIVIA PRN Hypotension Sodium Chloride 500 mls @ 0 mls/hr 02/01/21 07:40 Nacl 0.9% 500 Ml IV 02/01/21 20:00 ONCE NR As Directed Insulin Human Regular 0 units 01/31/21 07:30 02/01/21 10:13 Insulin Regular, Human 100 Units/1 Ml SUB-Q Not Given ACHS [facility] Protocol Lactulose 20 gm 02/01/21 09:00 02/01/21 11:26 Lactulose 20 Gm/30 Ml Oral Liqd PO Not Given Q12H LEYLA Ondansetron HCl 4 mg 01/30/21 13:26 Ondansetron 4 Mg/2 Ml Inj IV Q8H PRN Nausea And Vomiting Sodium Chloride 10 ml 01/30/21 22:00 02/01/21 11:26 Sodium Chloride 0.9% 10 Ml Flush Syringe IV Not Given BID LEYLA Sodium Chloride 10 ml 01/30/21 13:26 Sodium Chloride 0.9% 10 Ml Flush Syringe IV PRN PRN LINE FLUSH Tramadol HCl 50 mg 01/30/21 22:17 01/30/21 23:00 Tramadol 50 Mg Tab PO 50 mg Q6H PRN Administration Pain, Moderate (4-6)
--- NOTE | 2021-02-01 13:44 | Progress Note ---
Assessment and Plan Assessment and plan: #Hypoglycemia Resolved #Acute on chronic anemia Hemoglobin dropped to 6.7 Transfused with 1 unit PRBC Repeat hemoglobin after transfusion Monitor for any bleeding If hemoglobin remains stable, will discharge to follow-up with GI #Hepatic encephalopathy Continue lactulose as ordered in a.m. to have at least 3 BMs in a day #ESRD Hemodialysis as scheduled #Chronic liver disease and cirrhosis Follow-up with GI as outpatient Continue lactulose #DVT prophylaxis SCDs Hold heparin products due to acute on chronic anemia History Interval history: 55 YO Male with ESRD on HD, Noncompliance with outpatient dialysis, Anemia, HBV, Chronic Liver Disease, Cirrhosis complicated by Esophageal Varices, HTN, Debilit y, DM presents to ED for evaluation. Patient is confused with diminished cognition and is unable to provide detailed history. Patient is only able to provide minimal history. Patient history taken from EMS staff, ED staff as well as patient family members. Patient family report the patient was found to have increased confusion today. EMS was notified and upon arrival the patient was found to be in distress with a blood glucose in the 50s. The patient was treated with supportive care and subsequently transported to [facility] for further care and evaluation of the aforementioned symptoms. The patient was seen and evaluated in the emergency department. All lab and imaging studies reviewed. T he patient was found to have hepatic encephalopathy complicated by diminished cognition, end-stage renal disease in need of urgent dialysis, as well as hypoglycemia. Nephrology team consulted in ED. Patient found to have recurrent hypoglycemia and was initiated on a dextrose drip with every hour glucose monitoring. The patient was admitted to IMCU due to increased risk of decompensation. No further history is obtainable. Patient is confused and lethargic the time my evaluation but has a positive gag reflex and is able to protect his airway without difficulty. No prior admission for review. No medication listed at time of admission for reconciliation. 01/31. Patient is still confused and lethargic 02/01. Patient is more awake today. Hemoglobin dropped to 6.7. Ordered 1 unit PRBCs . His blood glucose has been stable. Hospitalist Physical - Physical exam Narrative exam: VITAL SIGNS: Reviewed. GENERAL: Awake HEAD: No signs of head trauma. EYES: Pupils are equal. Extraocular motions intact. MOUTH: Oropharynx is normal. NECK: No adenopathy, no JVD. CHEST: Chest with diminished breath sounds bilaterally. No wheezes, rales, or rhonchi. CARDIAC: normal S1 and S2, without murmurs, gallops, or rubs. ABDOMEN: Soft, non tender and non distended. No rebound or guarding, and no masses palpated. Bowel Sounds normal. MUSCULOSKELETAL: No edema NEUROLOGIC EXAM: Alert and oriented x3. No focal neurologic deficits SKIN: No obvious lesions - Constitutional Vitals: Temp Pulse Resp BP Pulse Ox 97.9 F 95 H 20 152/66 98 02/01/21 10:00 02/01/21 12:15 02/01/21 10:00 02/01/21 12:15 02/01/21 04:29 HEART Score - HEART Score Troponin: Troponin T 0.137 ng/mL (0.00-0.029) H* 01/30/21 11:11 Results - Labs CBC & Chem 7: 02/01/21 05:08 02/01/21 05:08 Labs: Laboratory Last Values WBC 3.5 K/mm3 (4.5-11.0) L 02/01/21 05:08 RBC 2.12 M/mm3 (3.65-5.03) L 02/01/21 05:08 Hgb 6.7 gm/dl (11.8-15.2) L 02/01/21 05:08 Hct 19.3 % (35.5-45.6) L* 02/01/21 05:08 MCV 91 fl (84-94) 02/01/21 05:08 MCH 32 pg (28-32) 02/01/21 05:08 MCHC 35 % (32-34) H 02/01/21 05:08 RDW 15.1 % (13.2-15.2) 02/01/21 05:08 Plt Count 62 K/mm3 (140-440) L 02/01/21 05:08 Lymph % (Auto) 10.2 % (13.4-35.0) L 01/30/21 11:11 [place] % (Auto) 6.0 % (0.0-7.3) 01/30/21 11:11 Eos % (Auto) 0.2 % (0.0-4.3) 01/30/21 11:11 Baso % (Auto) 0.2 % (0.0-1.8) 01/30/21 11:11 Lymph # (Auto) 0.4 K/mm3 (1.2-5.4) L 01/30/21 11:11 [place] # (Auto) 0.2 K/mm3 (0.0-0.8) 01/30/21 11:11 Eos # (Auto) 0.0 K/mm3 (0.0-0.4) 01/30/21 11:11 Baso # (Auto) 0.0 K/mm3 (0.0-0.1) 01/30/21 11:11 Seg Neutrophils % 83.4 % (40.0-70.0) H 01/30/21 11:11 Seg Neutrophils # 2.9 K/mm3 (1.8-7.7) 01/30/21 11:11 PT 15.0 Sec. (12.2-14.9) H 01/30/21 11:11 INR 1.20 (0.87-1.13) H 01/30/21 11:11 APTT 27.2 Sec. (24.2-36.6) 01/30/21 11:11 Sodium 135 mmol/L (137-145) L 02/01/21 05:08 Potassium 4.8 mmol/L (3.6-5.0) 02/01/21 05:08 Chloride 95.0 mmol/L (98-107) L 02/01/21 05:08 Carbon Dioxide 27 mmol/L (22-30) 02/01/21 05:08 Anion Gap 18 mmol/L 02/01/21 05:08 BUN 67 mg/dL (9-20) H 02/01/21 05:08 Creatinine 7.9 mg/dL (0.8-1.3) H 02/01/21 05:08 Estimated GFR 7 ml/min 02/01/21 05:08 BUN/Creatinine Ratio 8 % 02/01/21 05:08 Glucose 214 mg/dL (75-100) H 02/01/21 05:08 POC Glucose 292 mg/dL (70-105) H 02/01/21 08:12 Lactic Acid 1.40 mmol/L (0.7-2.0) 01/30/21 11:11 Calcium 8.6 mg/dL (8.4-10.2) 02/01/21 05:08 Phosphorus 6.00 mg/dL (2.5-4.5) H 02/01/21 05:08 Magnesium 2.30 mg/dL (1.7-2.3) 01/30/21 11:11 Total Bilirubin 0.30 mg/dL (0.1-1.2) 01/31/21 05:48 AST 29 units/L (5-40) 01/31/21 05:48 ALT 18 units/L (7-56) 01/31/21 05:48 Alkaline Phosphatase 169 units/L (35-129) H 01/31/21 05:48 Ammonia 83.0 umol/L (25-60) H 02/01/21 08:48 Total Creatine Kinase 45 units/L (55-170) L 01/30/21 11:11 Troponin T 0.137 ng/mL (0.00-0.029) H* 01/30/21 11:11 Total Protein 5.9 g/dL (6.3-8.2) L 01/31/21 05:48 Albumin 2.5 g/dL (3.9-5) L 01/31/21 05:48 Albumin/Globulin Ratio 0.7 % 01/31/21 05:48 Triglycerides 85 mg/dL (2-149) 01/30/21 11:11 Cholesterol 134 mg/dL (50-199) 01/30/21 11:11 LDL Cholesterol Direct 74 mg/dL (50-130) 01/30/21 11:11 HDL Cholesterol 55 mg/dL (40-59) 01/30/21 11:11 Cholesterol/HDL Ratio 2.43 % 01/30/21 11:11 TSH 1.690 mlU/mL (0.270-4.200) 01/30/21 11:11 Urine Color Yellow (Yellow) 01/30/21 23:57 Urine Turbidity Clear (Clear) 01/30/21 23:57 Urine pH 6.0 (5.0-7.0) 01/30/21 23:57 Ur Specific [place] 1.012 (1.003-1.030) 01/30/21 23:57 Urine Protein 100 mg/dl mg/dL (Negative) 01/30/21 23:57 Urine Glucose (UA) >=500 mg/dL (Negative) 01/30/21 23:57 Urine Ketones Neg mg/dL (Negative) 01/30/21 23:57 Urine Blood Neg (Negative) 01/30/21 23:57 Urine Nitrite Neg (Negative) 01/30/21 23:57 Urine Bilirubin Neg (Negative) 01/30/21 23:57 Urine Urobilinogen 2.0 mg/dL (<2.0) 01/30/21 23:57 Ur Leukocyte Esterase Neg (Negative) 01/30/21 23:57 Urine WBC (Auto) 6.0 /HPF (0.0-6.0) 01/30/21 23:57 Urine RBC (Auto) 13.0 /HPF (0.0-6.0) 01/30/21 23:57 U Epithel Cells (Auto) < 1.0 /HPF (0-13.0) 01/30/21 23:57 Urine Mucus Few /HPF 01/30/21 23:57 Nasal Screen MRSA (PCR) Positive (Negative) 01/31/21 Unknown Salicylates < 0.3 mg/dL (2.8-20.0) L 01/30/21 11:11 Urine Opiates Screen Presumptive negative 01/30/21 23:57 Urine Methadone Screen Presumptive negative 01/30/21 23:57 Acetaminophen 5.0 ug/mL (10.0-30.0) L 01/30/21 11:11 Ur Barbiturates Screen Presumptive negative 01/30/21 23:57 Ur Phencyclidine Scrn Presumptive negative 01/30/21 23:57 Ur Amphetamines Screen Presumptive negative 01/30/21 23:57 U Benzodiazepines Scrn Presumptive negative 01/30/21 23:57 Urine Cocaine Screen Presumptive negative 01/30/21 23:57 U Marijuana (THC) Screen Presumptive negative 01/30/21 23:57 Drugs of Abuse Note Disclamer 01/30/21 23:57 Plasma/Serum Alcohol < 0.01 % (0-0.07) 01/30/21 11:11 Hepatitis A IgM Ab Non-reactive (NonReactive) 01/30/21 11:11 Hep Bs Antigen Non-reactive (Negative) 01/30/21 11:11 Hep B Core IgM Ab Non-reactive (NonReactive) 01/30/21 11:11 Hepatitis C Antibody Non-reactive (NonReactive) 01/30/21 11:11 Blood Type A POSITIVE 01/30/21 11:11 Antibody Screen Negative 01/30/21 11:11 Crossmatch See Detail 01/30/21 11:11 Microbiology: Microbiology 01/30/21 11:11 Peripheral/Venous Blood Culture - Preliminary NO GROWTH AFTER 48 HOURS 01/30/21 11:11 Peripheral/Venous Blood Culture - Preliminary NO GROWTH AFTER 48 HOURS Sr/IV: Voiding Method Urinal Active Medications - Current Medications Current Medications: Generic Name Dose Route Start Last Admin Trade Name Freq PRN Reason Stop Dose Admin Albuterol 2.5 mg 01/30/21 13:26 Albuterol 2.5 Mg/3 Ml Nebu IH Q4HRT PRN Shortness Of Breath Dextrose 50 ml 01/30/21 22:15 Dextrose 50% In Water (25gm) 50 Ml Syringe IV Q30MIN PRN Hypoglycemia Protocol Sodium Chloride 100 mls @ 999 mls/hr 01/30/21 13:00 Nacl 0.9% IV OLIVIA PRN Hypotension Sodium Chloride 500 mls @ 0 mls/hr 02/01/21 07:40 Nacl 0.9% 500 Ml IV 02/01/21 20:00 ONCE NR As Directed Insulin Human Regular 0 units 01/31/21 07:30 02/01/21 10:13 Insulin Regular, Human 100 Units/1 Ml SUB-Q Not Given ACHS LEYLA Protocol Lactulose 20 gm 02/01/21 09:00 02/01/21 11:26 Lactulose 20 Gm/30 Ml Oral Liqd PO Not Given Q12H LEYLA Ondansetron HCl 4 mg 01/30/21 13:26 Ondansetron 4 Mg/2 Ml Inj IV Q8H PRN Nausea And Vomiting Sodium Chloride 10 ml 01/30/21 22:00 02/01/21 11:26 Sodium Chloride 0.9% 10 Ml Flush Syringe IV Not Given BID LEYLA Sodium Chloride 10 ml 01/30/21 13:26 Sodium Chloride 0.9% 10 Ml Flush Syringe IV PRN PRN LINE FLUSH Tramadol HCl 50 mg 01/30/21 22:17 01/30/21 23:00 Tramadol 50 Mg Tab PO 50 mg Q6H PRN Administration Pain, Moderate (4-6) Nutrition/Malnutrition Assess - Dietary Evaluation Nutrition/Malnutrition Findings: Nutrition Notes Start: 01/31/21 09:41 Freq: Status: Active Protocol: Document 01/31/21 09:41 LILIYA (Rec: 01/31/21 10:05 BK [id number]) Co-Sign 01/31/21 09:41 MK Nutrition Notes Need for Assessment generated from: MD Order Initial or Follow up Assessment Current Diagnosis CKD (stage V CKD),Diabetes, Hypertension,Hyperlipidemia Other Pertinent Diagnosis cirrhosis w/ esophageal varices, anemia Current Diet Cardiac/Consistent CHO Labs/Tests Na 135 BUN 55 CR 6.9 BG 448 Pertinent Medications D51/2NS 250ml/hr Insulin Height 5 ft 11 in Weight 63.7 kg Usual Body Weight 77 kg [place] Body Weight (kg) 78.18 BMI 19.5 Intake Prior to Admission Good Weight change and time frame 17% wt loss, 3 months Weight Status Appropriate Subjective/Other Information MD order for dietary supplement. Pt reports good appetite and consumed 100% breakfast and Glucerna. Per chart, pt has hx of noncompliance with dialysis and reoccuring hypoglycemia. Pt received dialysis on 01/30 and had 1L removed. Percent of energy/protein needs met: 39%/34% (PO intakes) Burn Absent Trauma Absent GI Symptoms None Food Allergy No Current % PO Good (75-100%) Minimum of two criteria No Interpretation of Weight Loss (severe) >7.5% in 3 months #1 Nutrition Diagnosis Increased nutrient needs ( specify in comment below) Comments: protein Etiology dialysis As Evidenced by Signs and Symptoms pt meeting 34% protein needs via PO intakes Is patient on ventilator? No Is Patient Ambulatory and/or Out of Bed No REE-([facility]-confined to bed) 1170.954 Calculation Used for Recommendations [facility] Additional Notes Pro: >76g (>1.2 g/kg) Fluid: 1,000-1,500 mL or per Nutrition Intervention Change Diet Order: Renal/Consistent CHO Nutrition Support: D/C Glucerna Butter Pecan Nepro Butter Pecan Daily Kcal 425 Protein (gm) 19 Goal #1 Meet at least 75% energy and protein needs via PO/ONS intakes Anticipated Discharge Needs: Renal/Consistent CHO diet Follow-Up By: 02/05/21 Additional Comments F/U for renal diet/ONS tolerance and intakes
[2021-02-01] MEDS: LACTULOSE 20 GM/30 ML ORAL LIQD PO SCH ×2 (14:05→23:35)
[2021-02-01 19:31] LABS: Hematocrit 23.5 % (35.5-45.6); Hemoglobin 8.2 gm/dl (11.8-15.2)
[2021-02-01] MEDS ORDERED: INSULIN GLARGINE 100 UNITS/ML SUB-Q SCH (22:00)
[2021-02-02 06:09] LABS: Basophils % (Auto) 0.5 % (0.0-1.8); Eosinophils # (Auto) 0.1 K/mm3 (0.0-0.4); Eosinophils % (Auto) 1.6 % (0.0-4.3); Hematocrit 23.1 % (35.5-45.6); Hemoglobin 8.1 gm/dl (11.8-15.2); Lymphocytes # (Auto) 0.5 K/mm3 (1.2-5.4); Lymphocytes % (Auto) 12.5 % (13.4-35.0); Mean Corpuscular HGB Conc 35 % (32-34); Mean Corpuscular Volume 92 fl (84-94); Monocytes # (Auto) 0.5 K/mm3 (0.0-0.8); Monocytes % (Auto) 10.5 % (0.0-7.3); Red Cell Distribution Width 14.4 % (13.2-15.2)
[2021-02-02 06:12] LABS: Platelet Count 64 K/mm3 (140-440)
[2021-02-02] MEDS: LACTULOSE 20 GM/30 ML ORAL LIQD PO SCH ×3 (06:58→22:31)
[2021-02-02] MEDS ORDERED: INSULIN GLARGINE 100 UNITS/ML SUB-Q NR (08:15)
[2021-02-02] MEDS: INSULIN REGULAR, HUMAN 100 UNITS/1 ML SUB-Q SCH ×4 (08:48→22:36)
--- NOTE | 2021-02-02 11:32 | Progress Note ---
History Interval history: 55 YO Male with ESRD on HD, Noncompliance with outpatient dialysis, Anemia, HBV, Chronic Liver Disease, Cirrhosis complicated by Esophageal Varices, HTN, Debility, DM presents to ED for evaluation. Patient is confused with diminished cognition and is unable to provide detailed history. Patient is only able to provide minimal history. Patient history taken from EMS staff, ED staff as well as patient family members. Patient family report the patient was found to have increased confusion today. EMS was notified and upon arrival the patient was found to be in distress with a blood glucose in the 50s. The patient was treated with supportive care and subsequently transported to [facility] for further care and evaluation of the aforementioned symptoms. The patient was seen and evaluated in the emergency department. All lab and imaging studies reviewed. The patient was found to have hepatic encephalopathy complicated by diminished cognition, end-stage renal disease in need of urgent dialysis, as well as hypoglycemia. Nephrology team consulted in ED. Patient found to have recurrent hypoglycemia and was initiated on a dextrose drip with every hour glucose monitoring. The patient was admitted to [facility] due to increased risk of decompensation. No further history is obtainable. Patient is confused and lethargic the time my evaluation but has a positive gag reflex and is able to protect his airway without difficulty. No prior admission for review. No medication listed at time of admission for reconciliation. 01/31. Patient is still confused and lethargic 02/01. Patient is more awake today. Hemoglobin dropped to 6.7. Ordered 1 unit PRBCs . His blood glucose has been stable. 02/02. Patient needs placement. Hemoglobin remained stable. Discharge when patient is placed Hospitalist Physical - Constitutional Vitals: Temp Pulse Resp BP Pulse Ox 99.2 F 101 H 18 154/77 98 02/02/21 04:18 02/02/21 04:18 02/02/21 04:18 02/02/21 04:18 02/02/21 04:18 General appearance: Present: no acute distress, well-nourished HEART Score - HEART Score Troponin: Troponin T 0.137 ng/mL (0.00-0.029) H* 01/30/21 11:11 Results - Labs CBC & Chem 7: 02/02/21 05:05 02/01/21 05:08 Labs: Laboratory Last Values WBC 4.4 K/mm3 (4.5-11.0) L 02/02/21 05:05 RBC 2.50 M/mm3 (3.65-5.03) L 02/02/21 05:05 Hgb 8.1 gm/dl (11.8-15.2) L 02/02/21 05:05 Hct 23.1 % (35.5-45.6) L 02/02/21 05:05 MCV 92 fl (84-94) 02/02/21 05:05 MCH 32 pg (28-32) 02/02/21 05:05 MCHC 35 % (32-34) H 02/02/21 05:05 RDW 14.4 % (13.2-15.2) 02/02/21 05:05 Plt Count 64 K/mm3 (140-440) L 02/02/21 05:05 Lymph % (Auto) 12.5 % (13.4-35.0) L 02/02/21 05:05 [place] % (Auto) 10.5 % (0.0-7.3) H 02/02/21 05:05 Eos % (Auto) 1.6 % (0.0-4.3) 02/02/21 05:05 Baso % (Auto) 0.5 % (0.0-1.8) 02/02/21 05:05 Lymph # (Auto) 0.5 K/mm3 (1.2-5.4) L 02/02/21 05:05 [place] # (Auto) 0.5 K/mm3 (0.0-0.8) 02/02/21 05:05 Eos # (Auto) 0.1 K/mm3 (0.0-0.4) 02/02/21 05:05 Baso # (Auto) 0.0 K/mm3 (0.0-0.1) 02/02/21 05:05 Seg Neutrophils % 74.9 % (40.0-70.0) H 02/02/21 05:05 Seg Neutrophils # 3.3 K/mm3 (1.8-7.7) 02/02/21 05:05 PT 15.0 Sec. (12.2-14.9) H 01/30/21 11:11 INR 1.20 (0.87-1.13) H 01/30/21 11:11 APTT 27.2 Sec. (24.2-36.6) 01/30/21 11:11 Sodium 135 mmol/L (137-145) L 02/01/21 05:08 Potassium 4.8 mmol/L (3.6-5.0) 02/01/21 05:08 Chloride 95.0 mmol/L (98-107) L 02/01/21 05:08 Carbon Dioxide 27 mmol/L (22-30) 02/01/21 05:08 Anion Gap 18 mmol/L 02/01/21 05:08 BUN 67 mg/dL (9-20) H 02/01/21 05:08 Creatinine 7.9 mg/dL (0.8-1.3) H 02/01/21 05:08 Estimated GFR 7 ml/min 02/01/21 05:08 BUN/Creatinine Ratio 8 % 02/01/21 05:08 Glucose 214 mg/dL (75-100) H 02/01/21 05:08 POC Glucose 490 mg/dL (70-105) H 02/02/21 08:19 Lactic Acid 1.40 mmol/L (0.7-2.0) 01/30/21 11:11 Calcium 8.6 mg/dL (8.4-10.2) 02/01/21 05:08 Phosphorus 6.00 mg/dL (2.5-4.5) H 02/01/21 05:08 Magnesium 2.30 mg/dL (1.7-2.3) 01/30/21 11:11 Total Bilirubin 0.30 mg/dL (0.1-1.2) 01/31/21 05:48 AST 29 units/L (5-40) 01/31/21 05:48 ALT 18 units/L (7-56) 01/31/21 05:48 Alkaline Phosphatase 169 units/L (35-129) H 01/31/21 05:48 Ammonia 83.0 umol/L (25-60) H 02/01/21 08:48 Total Creatine Kinase 45 units/L (55-170) L 01/30/21 11:11 Troponin T 0.137 ng/mL (0.00-0.029) H* 01/30/21 11:11 Total Protein 5.9 g/dL (6.3-8.2) L 01/31/21 05:48 Albumin 2.5 g/dL (3.9-5) L 01/31/21 05:48 Albumin/Globulin Ratio 0.7 % 01/31/21 05:48 Triglycerides 85 mg/dL (2-149) 01/30/21 11:11 Cholesterol 134 mg/dL (50-199) 01/30/21 11:11 LDL Cholesterol Direct 74 mg/dL (50-130) 01/30/21 11:11 HDL Cholesterol 55 mg/dL (40-59) 01/30/21 11:11 Cholesterol/HDL Ratio 2.43 % 01/30/21 11:11 TSH 1.690 mlU/mL (0.270-4.200) 01/30/21 11:11 Urine Color Yellow (Yellow) 01/30/21 23:57 Urine Turbidity Clear (Clear) 01/30/21 23:57 Urine pH 6.0 (5.0-7.0) 01/30/21 23:57 Ur Specific [place] 1.012 (1.003-1.030) 01/30/21 23:57 Urine Protein 100 mg/dl mg/dL (Negative) 01/30/21 23:57 Urine Glucose (UA) >=500 mg/dL (Negative) 01/30/21 23:57 Urine Ketones Neg mg/dL (Negative) 01/30/21 23:57 Urine Blood Neg (Negative) 01/30/21 23:57 Urine Nitrite Neg (Negative) 01/30/21 23:57 Urine Bilirubin Neg (Negative) 01/30/21 23:57 Urine Urobilinogen 2.0 mg/dL (<2.0) 01/30/21 23:57 Ur Leukocyte Esterase Neg (Negative) 01/30/21 23:57 Urine WBC (Auto) 6.0 /HPF (0.0-6.0) 01/30/21 23:57 Urine RBC (Auto) 13.0 /HPF (0.0-6.0) 01/30/21 23:57 U Epithel Cells (Auto) < 1.0 /HPF (0-13.0) 01/30/21 23:57 Urine Mucus Few /HPF 01/30/21 23:57 Nasal Screen MRSA (PCR) Positive (Negative) 01/31/21 Unknown Salicylates < 0.3 mg/dL (2.8-20.0) L 01/30/21 11:11 Urine Opiates Screen Presumptive negative 01/30/21 23:57 Urine Methadone Screen Presumptive negative 01/30/21 23:57 Acetaminophen 5.0 ug/mL (10.0-30.0) L 01/30/21 11:11 Ur Barbiturates Screen Presumptive negative 01/30/21 23:57 Ur Phencyclidine Scrn Presumptive negative 01/30/21 23:57 Ur Amphetamines Screen Presumptive negative 01/30/21 23:57 U Benzodiazepines Scrn Presumptive negative 01/30/21 23:57 Urine Cocaine Screen Presumptive negative 01/30/21 23:57 U Marijuana (THC) Screen Presumptive negative 01/30/21 23:57 Drugs of Abuse Note Disclamer 01/30/21 23:57 Plasma/Serum Alcohol < 0.01 % (0-0.07) 01/30/21 11:11 Hepatitis A IgM Ab Non-reactive (NonReactive) 01/30/21 11:11 Hep Bs Antigen Non-reactive (Negative) 01/30/21 11:11 Hep B Core IgM Ab Non-reactive (NonReactive) 01/30/21 11:11 Hepatitis C Antibody Non-reactive (NonReactive) 01/30/21 11:11 Blood Type A POSITIVE 01/30/21 11:11 Antibody Screen Negative 01/30/21 11:11 Crossmatch See Detail 01/30/21 11:11 Microbiology: Microbiology 01/30/21 11:11 Peripheral/Venous Blood Culture - Preliminary NO GROWTH AFTER 48 HOURS 01/30/21 11:11 Peripheral/Venous Blood Culture - Preliminary NO GROWTH AFTER 48 HOURS Sr/IV: Voiding Method Condom Catheter Active Medications - Current Medications Current Medications: Generic Name Dose Route Start Last Admin Trade Name Freq PRN Reason Stop Dose Admin Albuterol 2.5 mg 01/30/21 13:26 Albuterol 2.5 Mg/3 Ml Nebu IH Q4HRT PRN Shortness Of Breath Dextrose 50 ml 01/30/21 22:15 Dextrose 50% In Water (25gm) 50 Ml Syringe IV Q30MIN PRN Hypoglycemia Protocol Sodium Chloride 100 mls @ 999 mls/hr 01/30/21 13:00 Nacl 0.9% IV OLIVIA PRN Hypotension Insulin Glargine 10 units 02/01/21 22:00 02/01/21 23:35 Insulin Glargine 100 Units/Ml SUB-Q 10 units QHS LEYLA Administration Insulin Glargine 12 units 02/02/21 08:15 02/02/21 10:14 Insulin Glargine 100 Units/Ml SUB-Q 02/02/21 12:00 12 units QAMDIAB NR Administration Insulin Human Regular 0 units 01/31/21 07:30 02/02/21 08:48 Insulin Regular, Human 100 Units/1 Ml SUB-Q 10 units ACHS LEYLA Administration Protocol Lactulose 20 gm 02/01/21 14:00 02/02/21 06:58 Lactulose 20 Gm/30 Ml Oral Liqd PO 20 gm Q8H LEYLA Administration Ondansetron HCl 4 mg 01/30/21 13:26 Ondansetron 4 Mg/2 Ml Inj IV Q8H PRN Nausea And Vomiting Sodium Chloride 10 ml 01/30/21 22:00 02/02/21 10:14 Sodium Chloride 0.9% 10 Ml Flush Syringe IV 10 ml BID LEYLA Administration Sodium Chloride 10 ml 01/30/21 13:26 Sodium Chloride 0.9% 10 Ml Flush Syringe IV PRN PRN LINE FLUSH Tramadol HCl 50 mg 01/30/21 22:17 01/30/21 23:00 Tramadol 50 Mg Tab PO 50 mg Q6H PRN Administration Pain, Moderate (4-6) Nutrition/Malnutrition Assess - Dietary Evaluation Nutrition/Malnutrition Findings: Nutrition Notes Start: 01/31/21 09:41 Freq: Status: Active Protocol: Document 01/31/21 09:41 LILIYA (Rec: 01/31/21 10:05 LILIYA [email or web address]) Co-Sign 01/31/21 09:41 ALISSA Nutrition Notes Need for Assessment generated from: MD Order Initial or Follow up Assessment Current Diagnosis CKD (stage V CKD),Diabetes, Hypertension,Hyperlipidemia Other Pertinent Diagnosis cirrhosis w/ esophageal varices, anemia Current Diet Cardiac/Consistent CHO Labs/Tests Na 135 BUN 55 CR 6.9 BG 448 Pertinent Medications D51/2NS 250ml/hr Insulin Height 5 ft 11 in Weight 63.7 kg Usual Body Weight 77 kg [place] Body Weight (kg) 78.18 BMI 19.5 Intake Prior to Admission Good Weight change and time frame 17% wt loss, 3 months Weight Status Appropriate Subjective/Other Information MD order for dietary supplement. Pt reports good appetite and consumed 100% breakfast and Glucerna. Per chart, pt has hx of noncompliance with dialysis and reoccuring hypoglycemia. Pt received dialysis on 01/30 and had 1L removed. Percent of energy/protein needs met: 39%/34% (PO intakes) Burn Absent Trauma Absent GI Symptoms None Food Allergy No Current % PO Good (75-100%) Minimum of two criteria No Interpretation of Weight Loss (severe) >7.5% in 3 months #1 Nutrition Diagnosis Increased nutrient needs ( specify in comment below) Comments: protein Etiology dialysis As Evidenced by Signs and Symptoms pt meeting 34% protein needs via PO intakes Is patient on ventilator? No Is Patient Ambulatory and/or Out of Bed No REE-([facility]-confined to bed) 1586.128 Calculation Used for Recommendations [facility] Additional Notes Pro: >76g (>1.2 g/kg) Fluid: 1,000-1,500 mL or per MD Nutrition Intervention Change Diet Order: Renal/Consistent CHO Nutrition Support: D/C Glucerna Butter Pecan Nepro Butter Pecan Daily Kcal 425 Protein (gm) 19 Goal #1 Meet at least 75% energy and protein needs via PO/ONS intakes Anticipated Discharge Needs: Renal/Consistent CHO diet Follow-Up By: 02/05/21 Additional Comments F/U for renal diet/ONS tolerance and intakes
[2021-02-02] MEDS: INSULIN LISPRO 100 UNIT/ML SUB-Q SCH ×2 (13:56→22:37)
--- NOTE | 2021-02-02 14:56 | Progress Note ---
Assessment and Plan 1. ESRD: Patient is on maintenance hemodialysis three times a week, MWF schedule. Per patient last HD was on 01/28. Meds dosage based on GFR. Hemodialysis: 01/30, 02/01. 2. FEN: Monitor lytes and volume status. 3. Anemia, POA: 2/2 ESRD and Liver disease. Epogen with HD. S/p PRBC today. 4. Encephalopathy, POA: Likely hepatic encephalopathy. Lactulose. Hypoglycemia on admission. MS is better. 5. DM type 2: Hypoglycemia on admission. Bl sugar is high now. Monitor. 6. Thrombocytopenia, POA: 7. Hypertension: Monitor BP. Adjust meds as appropriate. Subjective: Patient was seen and examined at the bedside. Doing ok. General Appearance: General appearance: well-developed, appears stated age, not in distress HEENT: ATNC, pupils equal Neck: trachea midline Respiratory: ctab Heart: regular, S1S2, no murmur Abdomen: soft, bowel sounds heard, appears distended, not tender Integumentary: no rash, warm and dry Neurologic: alert, able to move extremities, slight confusion noted Ext: no edema, R BKA Hemodialysis access: R arm AVF Subjective Date of service: 02/02/21 Principal diagnosis: Hepatic encephalopathy, end-stage renal disease on dialysis Objective - Vital Signs Vital signs: Vital Signs - 12hr 02/02/21 04:18 Temperature 99.2 F Pulse Rate 101 H Respiratory 18 Rate Blood Pressure 154/77 O2 Sat by Pulse 98 Oximetry - Lab 02/02/21 05:05 02/01/21 05:08 Most recent lab results Calcium 8.6 mg/dL (8.4-10.2) 02/01/21 05:08 Phosphorus 6.00 mg/dL (2.5-4.5) H 02/01/21 05:08 Magnesium 2.30 mg/dL (1.7-2.3) 01/30/21 11:11 Medications & Allergies - Medications Allergies/Adverse Reactions: Allergies No Known Allergies Allergy (Unverified 01/30/21 09:58) Home Medications: Home Medications Medication Instructions Recorded Confirmed Last Taken Type Insulin Glargine [Lantus VIAL] 30 unit SUB-Q QHS 01/31/21 01/31/21 Unknown History Lispro Insulin [HumaLOG] 0 unit SQ ACHS 01/31/21 01/31/21 Unknown History Active Medications: Generic Name Dose Route Start Last Admin Trade Name Barb PRN Reason Stop Dose Admin Albuterol 2.5 mg 01/30/21 13:26 Albuterol 2.5 Mg/3 Ml Nebu IH Q4HRT PRN Shortness Of Breath Dextrose 50 ml 01/30/21 22:15 Dextrose 50% In Water (25gm) 50 Ml Syringe IV Q30MIN PRN Hypoglycemia Protocol Sodium Chloride 100 mls @ 999 mls/hr 01/30/21 13:00 Nacl 0.9% IV OLIVIA PRN Hypotension Insulin Glargine 10 units 02/01/21 22:00 02/01/21 23:35 Insulin Glargine 100 Units/Ml SUB-Q 10 units QHS LEYLA Administration Insulin Human Lispro 4 unit 02/02/21 13:19 02/02/21 13:56 Insulin Lispro 100 Unit/Ml SUB-Q 4 unit AC LEYLA Administration Insulin Human Regular 0 units 01/31/21 07:30 02/02/21 12:20 Insulin Regular, Human 100 Units/1 Ml SUB-Q 1 units ACHS LEYLA Administration Protocol Lactulose 20 gm 02/01/21 14:00 02/02/21 06:58 Lactulose 20 Gm/30 Ml Oral Liqd PO 20 gm Q8H LEYLA Administration Ondansetron HCl 4 mg 01/30/21 13:26 Ondansetron 4 Mg/2 Ml Inj IV Q8H PRN Nausea And Vomiting Sodium Chloride 10 ml 01/30/21 22:00 02/02/21 10:14 Sodium Chloride 0.9% 10 Ml Flush Syringe IV 10 ml BID LEYLA Administration Sodium Chloride 10 ml 01/30/21 13:26 Sodium Chloride 0.9% 10 Ml Flush Syringe IV PRN PRN LINE FLUSH Tramadol HCl 50 mg 01/30/21 22:17 01/30/21 23:00 Tramadol 50 Mg Tab PO 50 mg Q6H PRN Administration Pain, Moderate (4-6)
[2021-02-02] MEDS ORDERED: INSULIN GLARGINE 100 UNITS/ML SUB-Q SCH (22:00)
[2021-02-02] MEDS ORDERED: hydrALAZINE 20 MG/1 ML INJ IV PRN (22:02)
[2021-02-02] MEDS: INSULIN GLARGINE 100 UNITS/ML SUB-Q SCH (22:35)
[2021-02-03 00:22] LABS: Albumin 2.8 g/dL (3.9-5); Calcium 8.6 mg/dL (8.4-10.2)
[2021-02-03] MEDS: INSULIN REGULAR, HUMAN 100 UNITS/1 ML SUB-Q SCH ×7 (00:51→21:16)
[2021-02-03 01:12] LABS: Basophils % (Auto) 0.3 % (0.0-1.8); Eosinophils # (Auto) 0.1 K/mm3 (0.0-0.4); Eosinophils % (Auto) 2.5 % (0.0-4.3); Hematocrit 24.2 % (35.5-45.6); Hemoglobin 8.3 gm/dl (11.8-15.2); Lymphocytes # (Auto) 0.5 K/mm3 (1.2-5.4); Lymphocytes % (Auto) 13.3 % (13.4-35.0); Mean Corpuscular HGB Conc 34 % (32-34); Mean Corpuscular Volume 94 fl (84-94); Monocytes # (Auto) 0.3 K/mm3 (0.0-0.8); Monocytes % (Auto) 8.6 % (0.0-7.3); Red Blood Count 2.57 M/mm3 (3.65-5.03); Red Cell Distribution Width 14.9 % (13.2-15.2)
[2021-02-03 01:14] LABS: Platelet Count 60 K/mm3 (140-440)
[2021-02-03] MEDS ORDERED: INSULIN REGULAR, HUMAN 100 UNITS/1 ML SUB-Q ONE (01:38)
[2021-02-03] MEDS: LACTULOSE 20 GM/30 ML ORAL LIQD PO SCH ×3 (05:40→21:18)
[2021-02-03] MEDS: ONDANSETRON 4 MG/2 ML INJ IV PRN (06:05)
[2021-02-03] MEDS: INSULIN LISPRO 100 UNIT/ML SUB-Q SCH ×5 (08:41→21:17)
--- NOTE | 2021-02-03 08:50 | Progress Note ---
Assessment and Plan 1. ESRD: Patient is on maintenance hemodialysis three times a week, MWF schedule. Per patient last HD was on 01/28. Meds dosage based on GFR. Hemodialysis: 01/30, 02/01. 2. FEN: Monitor lytes and volume status. 3. Anemia, POA: 2/2 ESRD and Liver disease. Epogen with HD. S/p PRBC. 4. Encephalopathy, POA: Likely hepatic encephalopathy. Lactulose. Hypoglycemia on admission. MS is better. 5. DM type 2: Hypoglycemia on admission. Bl sugar is high now. Monitor. 6. Thrombocytopenia, POA: 7. Hypertension: Monitor BP. Adjust meds as appropriate. Subjective: Patient was seen and examined at the bedside. Doing ok. General Appearance: General appearance: well-developed, appears stated age, not in distress HEENT: ATNC, pupils equal Neck: trachea midline Respiratory: ctab Heart: regular, S1S2, no murmur Abdomen: soft, bowel sounds heard, appears distended, not tender Integumentary: no rash, warm and dry Neurologic: alert, able to move extremities Ext: no edema, R BKA Hemodialysis access: R arm AVF Subjective Date of service: 02/03/21 Principal diagnosis: Hepatic encephalopathy, end-stage renal disease on dialysis Objective - Vital Signs Vital signs: Vital Signs - 12hr 02/02/21 02/02/21 02/02/21 22:00 22:32 23:56 Temperature 98.1 F Pulse Rate 98 H 97 H 95 H Respiratory 18 Rate Blood Pressure 192/54 145/33 O2 Sat by Pulse 100 Oximetry 02/03/21 05:04 Temperature 98.2 F Pulse Rate 99 H Respiratory 18 Rate Blood Pressure 152/60 O2 Sat by Pulse 98 Oximetry - Lab 02/03/21 00:20 02/03/21 00:20 Most recent lab results Calcium 8.6 mg/dL (8.4-10.2) 02/02/21 23:17 Phosphorus 6.00 mg/dL (2.5-4.5) H 02/01/21 05:08 Magnesium 2.30 mg/dL (1.7-2.3) 01/30/21 11:11 Medications & Allergies - Medications Allergies/Adverse Reactions: Allergies No Known Allergies Allergy (Unverified 01/30/21 09:58) Home Medications: Home Medications Medication Instructions Recorded Confirmed Last Taken Type Insulin Glargine [Lantus VIAL] 30 unit SUB-Q QHS 01/31/21 01/31/21 Unknown History Lispro Insulin [HumaLOG] 0 unit SQ ACHS 01/31/21 01/31/21 Unknown History Insulin Glargine [Lantus VIAL] 26 units SUB-Q BID #20 ml 02/04/21 Unknown Rx Lactulose [Cephulac] 20 gm PO Q8H #30 oral.liqd 02/04/21 Unknown Rx Active Medications: Generic Name Dose Route Start Last Admin Trade Name Freq PRN Reason Stop Dose Admin Albuterol 2.5 mg 01/30/21 13:26 Albuterol 2.5 Mg/3 Ml Nebu IH Q4HRT PRN Shortness Of Breath Dextrose 50 ml 01/30/21 22:15 Dextrose 50% In Water (25gm) 50 Ml Syringe IV Q30MIN PRN Hypoglycemia Protocol Hydralazine HCl 5 mg 02/02/21 22:02 02/02/21 22:32 Hydralazine 20 Mg/1 Ml Inj IV 5 mg Q4H PRN Administration hypertention Sodium Chloride 100 mls @ 999 mls/hr 01/30/21 13:00 Nacl 0.9% IV OLIVIA PRN Hypotension Insulin Glargine 20 units 02/02/21 22:00 02/02/21 22:35 Insulin Glargine 100 Units/Ml SUB-Q 20 units BID LEYLA Administration Insulin Human Lispro 4 unit 02/02/21 22:00 02/03/21 08:41 Insulin Lispro 100 Unit/Ml SUB-Q Not Given ACHS [facility] Insulin Human Regular 0 units 01/31/21 07:30 02/03/21 08:42 Insulin Regular, Human 100 Units/1 Ml SUB-Q Not Given ACHS [facility] Protocol Lactulose 20 gm 02/01/21 14:00 02/03/21 05:40 Lactulose 20 Gm/30 Ml Oral Liqd PO 20 gm Q8H LEYLA Administration Ondansetron HCl 4 mg 01/30/21 13:26 02/03/21 06:05 Ondansetron 4 Mg/2 Ml Inj IV 4 mg Q8H PRN Administration Nausea And Vomiting Sodium Chloride 10 ml 01/30/21 22:00 02/02/21 22:37 Sodium Chloride 0.9% 10 Ml Flush Syringe IV 10 ml BID LEYLA Administration Sodium Chloride 10 ml 01/30/21 13:26 Sodium Chloride 0.9% 10 Ml Flush Syringe IV PRN PRN LINE FLUSH Tramadol HCl 50 mg 01/30/21 22:17 01/30/21 23:00 Tramadol 50 Mg Tab PO 50 mg Q6H PRN Administration Pain, Moderate (4-6)
--- NOTE | 2021-02-03 10:21 | Progress Note ---
Assessment and Plan Assessment and plan: #Hypoglycemia Resolved #Acute on chronic anemia Hemoglobin dropped to 6.7 was transfused Hemoglobin remained stable at ~8 Monitor for any bleeding #Hepatic encephalopathy Improved Continue lactulose #ESRD Hemodialysis as scheduled #Chronic liver disease and cirrhosis Follow-up with GI as outpatient Continue lactulose #DVT prophylaxis SCDs Hold heparin products due to acute on chronic anemia History Interval history: 55 YO Male with ESRD on HD, Noncompliance with outpatient dialysis, Anemia, HBV, Chronic Liver Disease, Cirrhosis complicated by Esophageal Varices, HTN, Debility, DM presents to ED for evaluation. Patient is confused with diminished cognition and is unable to provide detailed history. Patient is only able to provide minimal history. Patient history taken from EMS staff, ED staff as well as patient family members. Patient family report the patient was found to have increased confusion today. EMS was notified and upon arrival the patient was found to be in distress with a blood glucose in the 50s. The patient was treated with supportive care and subsequently transported to [facility] for further care and evaluation of the aforementioned symptoms. The patient was seen and evaluated in the emergency department. All lab and imaging studies reviewed. The patient was found to have hepatic encephalopathy complicated by diminished cognition, end-stage renal disease in need of urgent dialysis, as well as hypoglycemia. Nephrology team consulted in ED. Patient found to have recurrent hypoglycemia and was initiated on a dextrose drip with every hour glucose monitoring. The patient was admitted to [facility] due to increased risk of decompensation. No further history is obtainable. Patient is confused and lethargic the time my evaluation but has a positive gag reflex and is able to protect his airway without difficulty. No prior admission for review. No medication listed at time of admission for reconciliation. 01/31. Patient is still confused and lethargic 02/01. Patient is more awake today. Hemoglobin dropped to 6.7. Ordered 1 unit PRBCs . His blood glucose has been stable. 02/02. Patient needs placement. Hemoglobin remained stable. Discharge when patient is placed 02/03. Blood glucose was elevated yesterday so his insulin was adjusted. Blood glucose appears more stable today. Awaiting placement. Hemoglobin stable today Hospitalist Physical - Physical exam Narrative exam: VITAL SIGNS: Reviewed. GENERAL: Awake HEAD: No signs of head trauma. EYES: Pupils are equal. Extraocular motions intact. MOUTH: Oropharynx is normal. NECK: No adenopathy, no JVD. CHEST: Chest with diminished breath sounds bilaterally. No wheezes, rales, or rhonchi. CARDIAC: normal S1 and S2, without murmurs, gallops, or rubs. ABDOMEN: Soft, non tender and non distended. No rebound or guarding, and no masses palpated. Bowel Sounds normal. MUSCULOSKELETAL: No edema NEUROLOGIC EXAM: Alert and oriented x3. No focal neurologic deficits SKIN: No obvious lesions - Constitutional Vitals: Temp Pulse Resp BP Pulse Ox 98.2 F 99 H 18 152/60 98 02/03/21 05:04 02/03/21 05:04 02/03/21 05:04 02/03/21 05:04 02/03/21 05:04 HEART Score - HEART Score Troponin: Troponin T 0.137 ng/mL (0.00-0.029) H* 01/30/21 11:11 Results - Labs CBC & Chem 7: 02/03/21 00:20 02/03/21 00:20 Labs: Laboratory Last Values WBC 3.9 K/mm3 (4.5-11.0) L 02/03/21 00:20 RBC 2.57 M/mm3 (3.65-5.03) L 02/03/21 00:20 Hgb 8.3 gm/dl (11.8-15.2) L 02/03/21 00:20 Hct 24.2 % (35.5-45.6) L 02/03/21 00:20 MCV 94 fl (84-94) 02/03/21 00:20 MCH 32 pg (28-32) 02/03/21 00:20 MCHC 34 % (32-34) 02/03/21 00:20 RDW 14.9 % (13.2-15.2) 02/03/21 00:20 Plt Count 60 K/mm3 (140-440) L 02/03/21 00:20 Lymph % (Auto) 13.3 % (13.4-35.0) L 02/03/21 00:20 [place] % (Auto) 8.6 % (0.0-7.3) H 02/03/21 00:20 Eos % (Auto) 2.5 % (0.0-4.3) 02/03/21 00:20 Baso % (Auto) 0.3 % (0.0-1.8) 02/03/21 00:20 Lymph # (Auto) 0.5 K/mm3 (1.2-5.4) L 02/03/21 00:20 [place] # (Auto) 0.3 K/mm3 (0.0-0.8) 02/03/21 00:20 Eos # (Auto) 0.1 K/mm3 (0.0-0.4) 02/03/21 00:20 Baso # (Auto) 0.0 K/mm3 (0.0-0.1) 02/03/21 00:20 Seg Neutrophils % 75.3 % (40.0-70.0) H 02/03/21 00:20 Seg Neutrophils # 2.9 K/mm3 (1.8-7.7) 02/03/21 00:20 PT 15.0 Sec. (12.2-14.9) H 01/30/21 11:11 INR 1.20 (0.87-1.13) H 01/30/21 11:11 APTT 27.2 Sec. (24.2-36.6) 01/30/21 11:11 Sodium 130 mmol/L (137-145) L 02/02/21 23:17 Potassium 4.5 mmol/L (3.6-5.0) 02/02/21 23:17 Chloride 89.7 mmol/L (98-107) L 02/02/21 23:17 Carbon Dioxide 26 mmol/L (22-30) 02/02/21 23:17 Anion Gap 19 mmol/L 02/02/21 23:17 BUN 58 mg/dL (9-20) H 02/02/21 23:17 Creatinine 6.5 mg/dL (0.8-1.3) H 02/02/21 23:17 Estimated GFR 9 ml/min 02/02/21 23:17 BUN/Creatinine Ratio 9 % 02/02/21 23:17 Glucose 569 mg/dL (75-100) H* 02/03/21 00:20 POC Glucose 115 mg/dL (70-105) H 02/03/21 08:26 Lactic Acid 1.40 mmol/L (0.7-2.0) 01/30/21 11:11 Calcium 8.6 mg/dL (8.4-10.2) 02/02/21 23:17 Phosphorus 6.00 mg/dL (2.5-4.5) H 02/01/21 05:08 Magnesium 2.30 mg/dL (1.7-2.3) 01/30/21 11:11 Total Bilirubin 0.50 mg/dL (0.1-1.2) 02/02/21 23:17 AST 30 units/L (5-40) 02/02/21 23:17 ALT 30 units/L (7-56) 02/02/21 23:17 Alkaline Phosphatase 181 units/L (35-129) H 02/02/21 23:17 Ammonia 83.0 umol/L (25-60) H 02/01/21 08:48 Total Creatine Kinase 45 units/L (55-170) L 01/30/21 11:11 Troponin T 0.137 ng/mL (0.00-0.029) H* 01/30/21 11:11 Total Protein 5.9 g/dL (6.3-8.2) L 02/02/21 23:17 Albumin 2.8 g/dL (3.9-5) L 02/02/21 23:17 Albumin/Globulin Ratio 0.9 % 02/02/21 23:17 Triglycerides 85 mg/dL (2-149) 01/30/21 11:11 Cholesterol 134 mg/dL (50-199) 01/30/21 11:11 LDL Cholesterol Direct 74 mg/dL (50-130) 01/30/21 11:11 HDL Cholesterol 55 mg/dL (40-59) 01/30/21 11:11 Cholesterol/HDL Ratio 2.43 % 01/30/21 11:11 TSH 1.690 mlU/mL (0.270-4.200) 01/30/21 11:11 Urine Color Yellow (Yellow) 01/30/21 23:57 Urine Turbidity Clear (Clear) 01/30/21 23:57 Urine pH 6.0 (5.0-7.0) 01/30/21 23:57 Ur Specific [place] 1.012 (1.003-1.030) 01/30/21 23:57 Urine Protein 100 mg/dl mg/dL (Negative) 01/30/21 23:57 Urine Glucose (UA) >=500 mg/dL (Negative) 01/30/21 23:57 Urine Ketones Neg mg/dL (Negative) 01/30/21 23:57 Urine Blood Neg (Negative) 01/30/21 23:57 Urine Nitrite Neg (Negative) 01/30/21 23:57 Urine Bilirubin Neg (Negative) 01/30/21 23:57 Urine Urobilinogen 2.0 mg/dL (<2.0) 01/30/21 23:57 Ur Leukocyte Esterase Neg (Negative) 01/30/21 23:57 Urine WBC (Auto) 6.0 /HPF (0.0-6.0) 01/30/21 23:57 Urine RBC (Auto) 13.0 /HPF (0.0-6.0) 01/30/21 23:57 U Epithel Cells (Auto) < 1.0 /HPF (0-13.0) 01/30/21 23:57 Urine Mucus Few /HPF 01/30/21 23:57 Nasal Screen MRSA (PCR) Positive (Negative) 01/31/21 Unknown Salicylates < 0.3 mg/dL (2.8-20.0) L 01/30/21 11:11 Urine Opiates Screen Presumptive negative 01/30/21 23:57 Urine Methadone Screen Presumptive negative 01/30/21 23:57 Acetaminophen 5.0 ug/mL (10.0-30.0) L 01/30/21 11:11 Ur Barbiturates Screen Presumptive negative 01/30/21 23:57 Ur Phencyclidine Scrn Presumptive negative 01/30/21 23:57 Ur Amphetamines Screen Presumptive negative 01/30/21 23:57 U Benzodiazepines Scrn Presumptive negative 01/30/21 23:57 Urine Cocaine Screen Presumptive negative 01/30/21 23:57 U Marijuana (THC) Screen Presumptive negative 01/30/21 23:57 Drugs of Abuse Note Disclamer 01/30/21 23:57 Plasma/Serum Alcohol < 0.01 % (0-0.07) 01/30/21 11:11 Hepatitis A IgM Ab Non-reactive (NonReactive) 01/30/21 11:11 Hep Bs Antigen Non-reactive (Negative) 01/30/21 11:11 Hep B Core IgM Ab Non-reactive (NonReactive) 01/30/21 11:11 Hepatitis C Antibody Non-reactive (NonReactive) 01/30/21 11:11 Blood Type A POSITIVE 01/30/21 11:11 Antibody Screen Negative 01/30/21 11:11 Crossmatch See Detail 01/30/21 11:11 Microbiology: Microbiology 01/30/21 11:11 Peripheral/Venous Blood Culture - Preliminary NO GROWTH AFTER 72 HOURS 01/30/21 11:11 Peripheral/Venous Blood Culture - Preliminary NO GROWTH AFTER 72 HOURS Sr/IV: Voiding Method Condom Catheter Active Medications - Current Medications Current Medications: Generic Name Dose Route Start Last Admin Trade Name Freq PRN Reason Stop Dose Admin Albuterol 2.5 mg 01/30/21 13:26 Albuterol 2.5 Mg/3 Ml Nebu IH Q4HRT PRN Shortness Of Breath Dextrose 50 ml 01/30/21 22:15 Dextrose 50% In Water (25gm) 50 Ml Syringe IV Q30MIN PRN Hypoglycemia Protocol Hydralazine HCl 5 mg 02/02/21 22:02 02/02/21 22:32 Hydralazine 20 Mg/1 Ml Inj IV 5 mg Q4H PRN Administration hypertention Sodium Chloride 100 mls @ 999 mls/hr 01/30/21 13:00 Nacl 0.9% IV OLIVIA PRN Hypotension Insulin Glargine 20 units 02/02/21 22:00 02/02/21 22:35 Insulin Glargine 100 Units/Ml SUB-Q 20 units BID LEYLA Administration Insulin Human Lispro 4 unit 02/02/21 22:00 02/03/21 08:41 Insulin Lispro 100 Unit/Ml SUB-Q Not Given ACHS [facility] Insulin Human Regular 0 units 01/31/21 07:30 02/03/21 08:42 Insulin Regular, Human 100 Units/1 Ml SUB-Q Not Given ACHS [facility] Protocol Lactulose 20 gm 02/01/21 14:00 02/03/21 05:40 Lactulose 20 Gm/30 Ml Oral Liqd PO 20 gm Q8H LEYLA Administration Ondansetron HCl 4 mg 01/30/21 13:26 02/03/21 06:05 Ondansetron 4 Mg/2 Ml Inj IV 4 mg Q8H PRN Administration Nausea And Vomiting Sodium Chloride 10 ml 01/30/21 22:00 02/02/21 22:37 Sodium Chloride 0.9% 10 Ml Flush Syringe IV 10 ml BID LEYLA Administration Sodium Chloride 10 ml 05/12/21 13:26 Sodium Chloride 0.9% 10 Ml Flush Syringe IV PRN PRN LINE FLUSH Tramadol HCl 50 mg 01/30/21 22:17 01/30/21 23:00 Tramadol 50 Mg Tab PO 50 mg Q6H PRN Administration Pain, Moderate (4-6) Nutrition/Malnutrition Assess - Dietary Evaluation Nutrition/Malnutrition Findings: Nutrition Notes Start: 01/31/21 09:41 Freq: Status: Active Protocol: Document 01/31/21 09:41 LILIYA (Rec: 01/31/21 10:05 LILIYA [id number]) Co-Sign 01/31/21 09:41 MK Nutrition Notes Need for Assessment generated from: MD Order Initial or Follow up Assessment Current Diagnosis CKD (stage V CKD),Diabetes, Hypertension,Hyperlipidemia Other Pertinent Diagnosis cirrhosis w/ esophageal varices, anemia Current Diet Cardiac/Consistent CHO Labs/Tests Na 135 BUN 55 CR 6.9 BG 448 Pertinent Medications D51/2NS 250ml/hr Insulin Height 5 ft 11 in Weight 63.7 kg Usual Body Weight 77 kg [place] Body Weight (kg) 78.18 BMI 19.5 Intake Prior to Admission Good Weight change and time frame 17% wt loss, 3 months Weight Status Appropriate Subjective/Other Information MD order for dietary supplement. Pt reports good appetite and consumed 100% breakfast and Glucerna. Per chart, pt has hx of noncompliance with dialysis and reoccuring hypoglycemia. Pt received dialysis on 01/30 and had 1L removed. Percent of energy/protein needs met: 39%/34% (PO intakes) Burn Absent Trauma Absent GI Symptoms None Food Allergy No Current % PO Good (75-100%) Minimum of two criteria No Interpretation of Weight Loss (severe) >7.5% in 3 months #1 Nutrition Diagnosis Increased nutrient needs ( specify in comment below) Comments: protein Etiology dialysis As Evidenced by Signs and Symptoms pt meeting 34% protein needs via PO intakes Is patient on ventilator? No Is Patient Ambulatory and/or Out of Bed No REE-([facility]-confined to bed) [phone] Calculation Used for Recommendations [facility] Additional Notes Pro: >76g (>1.2 g/kg) Fluid: 1,000-1,500 mL or per MD Nutrition Intervention Change Diet Order: Renal/Consistent CHO Nutrition Support: D/C Glucerna Butter Pecan Nepro Butter Pecan Daily Kcal 425 Protein (gm) 19 Goal #1 Meet at least 75% energy and protein needs via PO/ONS intakes Anticipated Discharge Needs: Renal/Consistent CHO diet Follow-Up By: 02/05/21 Additional Comments F/U for renal diet/ONS tolerance and intakes
[2021-02-03] MEDS: INSULIN GLARGINE 100 UNITS/ML SUB-Q SCH ×2 (10:29→21:15)
[2021-02-04] MEDS ORDERED: SODIUM CHLORIDE 0.9% 250ML 250 ML IV ONE ×2 (00:01→01:45)
[2021-02-04] MEDS: ONDANSETRON 4 MG/2 ML INJ IV PRN (00:41)
[2021-02-04] MEDS: INSULIN REGULAR, HUMAN 100 UNITS/1 ML SUB-Q SCH ×2 (02:42→13:41)
[2021-02-04] MEDS: LACTULOSE 20 GM/30 ML ORAL LIQD PO SCH ×2 (05:42→15:32)
[2021-02-04] MEDS ORDERED: INSULIN GLARGINE 100 UNITS/ML SUB-Q SCH ×2 (07:56→10:00)
[2021-02-04] MEDS ORDERED: DEXTROSE 50% IN WATER (25GM) 50 ML SYRINGE IV PRN (07:57)
--- NOTE | 2021-02-04 10:02 | Progress Note ---
Assessment and Plan 1. ESRD: Patient is on maintenance hemodialysis three times a week, MWF schedule. Per patient last HD was on 01/28. Meds dosage based on GFR. Hemodialysis: 01/30, 02/01, 02/04. 2. FEN: Monitor lytes and volume status. 3. Anemia, POA: 2/2 ESRD and Liver disease. Epogen with HD. S/p PRBC. 4. Encephalopathy, POA: Likely hepatic encephalopathy. Lactulose. Hypoglycemia on admission. MS is better. 5. DM type 2: Hypoglycemia on admission. Bl sugar was high, improving. Monitor. 6. Thrombocytopenia, POA: 7. Hypertension: Monitor BP. Adjust meds as appropriate. Subjective: Patient was seen and examined at the bedside. Doing ok. General Appearance: General appearance: well-developed, appears stated age, not in distress HEENT: ATNC, pupils equal Neck: trachea midline Respiratory: ctab Heart: regular, S1S2, no murmur Abdomen: soft, bowel sounds heard, appears distended, not tender Integumentary: no rash, warm and dry Neurologic: alert, able to move extremities Ext: no edema, R BKA Hemodialysis access: R arm AVF Subjective Date of service: 02/04/21 Principal diagnosis: Hepatic encephalopathy, end-stage renal disease on dialysis Objective - Vital Signs Vital signs: Vital Signs - 12hr 02/03/21 02/04/21 02/04/21 23:19 03:54 07:33 Temperature 98.4 F 98.6 F 97.8 F Pulse Rate 102 H 78 92 H Respiratory 20 20 20 Rate Blood Pressure 116/67 129/60 Blood Pressure 121/89 [Left] O2 Sat by Pulse 100 98 99 Oximetry - Lab 02/03/21 00:20 02/03/21 00:20 Most recent lab results Calcium 8.6 mg/dL (8.4-10.2) 02/02/21 23:17 Phosphorus 6.00 mg/dL (2.5-4.5) H 02/01/21 05:08 Magnesium 2.30 mg/dL (1.7-2.3) 01/30/21 11:11 Medications & Allergies - Medications Allergies/Adverse Reactions: Allergies No Known Allergies Allergy (Unverified 01/30/21 09:58) Home Medications: Home Medications Medication Instructions Recorded Confirmed Last Taken Type Insulin Glargine [Lantus VIAL] 30 unit SUB-Q QHS 01/31/21 01/31/21 Unknown History Lispro Insulin [HumaLOG] 0 unit SQ ACHS 01/31/21 01/31/21 Unknown History Insulin Glargine [Lantus VIAL] 26 units SUB-Q BID #20 ml 02/04/21 Unknown Rx Lactulose [Cephulac] 20 gm PO Q8H #30 oral.liqd 02/04/21 Unknown Rx Active Medications: Generic Name Dose Route Start Last Admin Trade Name Freq PRN Reason Stop Dose Admin Albuterol 2.5 mg 01/30/21 13:26 Albuterol 2.5 Mg/3 Ml Nebu IH Q4HRT PRN Shortness Of Breath Dextrose 50 ml 01/30/21 22:15 Dextrose 50% In Water (25gm) 50 Ml Syringe IV Q30MIN PRN Hypoglycemia Protocol Hydralazine HCl 5 mg 02/02/21 22:02 02/02/21 22:32 Hydralazine 20 Mg/1 Ml Inj IV 5 mg Q4H PRN Administration hypertention Sodium Chloride 100 mls @ 999 mls/hr 01/30/21 13:00 Nacl 0.9% IV OLIVIA PRN Hypotension Insulin Glargine 26 units 02/04/21 10:00 02/04/21 09:22 Insulin Glargine 100 Units/Ml SUB-Q 26 units BID LEYLA Administration Insulin Human Lispro 0 unit 02/04/21 09:00 Insulin Lispro 100 Unit/Ml SUB-Q ACHS LEYLA Protocol Lactulose 20 gm 02/01/21 14:00 02/04/21 05:42 Lactulose 20 Gm/30 Ml Oral Liqd PO 20 gm Q8H LEYLA Administration Ondansetron HCl 4 mg 01/30/21 13:26 02/04/21 00:41 Ondansetron 4 Mg/2 Ml Inj IV 4 mg Q8H PRN Administration Nausea And Vomiting Sodium Chloride 10 ml 01/30/21 22:00 02/04/21 09:18 Sodium Chloride 0.9% 10 Ml Flush Syringe IV 10 ml BID LEYLA Administration Sodium Chloride 10 ml 01/30/21 13:26 Sodium Chloride 0.9% 10 Ml Flush Syringe IV PRN PRN LINE FLUSH Tramadol HCl 50 mg 01/30/21 22:17 01/30/21 23:00 Tramadol 50 Mg Tab PO 50 mg Q6H PRN Administration Pain, Moderate (4-6)
--- NOTE | 2021-02-04 11:03 | Progress Note ---
Assessment and Plan Assessment and plan: #Hypoglycemia Resolved #DM with hyperglycemia On lantus and lispro sliding scale Monitor blood glucose #Acute on chronic anemia Hemoglobin dropped to 6.7 was transfused Hemoglobin remained stable at ~8 Monitor for any bleeding #Hepatic encephalopathy Improved Continue lactulose #ESRD Hemodialysis as scheduled #Chronic liver disease and cirrhosis Follow-up with GI as outpatient Continue lactulose #DVT prophylaxis SCDs Hold heparin products due to acute on chronic anemia History Interval history: 55 YO Male with ESRD on HD, Noncompliance with outpatient dialysis, Anemia, HBV, Chronic Liver Disease, Cirrhosis complicated by Esophageal Varices, HTN, Debility, DM presents to ED for evaluation. Patient is confused with diminished cognition and is unable to provide detailed history. Patient is only able to provide minimal history. Patient history taken from EMS staff, ED staff as well as patient family members. Patient family report the patient was found to have increased confusion today. EMS was notified and upon arrival the patient was found to be in distress with a blood glucose in the 50s. The patient was treated with supportive care and subsequently transported to [facility] for further c are and evaluation of the aforementioned symptoms. The patient was seen and evaluated in the emergency department. All lab and imaging studies reviewed. The patient was found to have hepatic encephalopathy complicated by diminished cognition, end-stage renal disease in need of urgent dialysis, as well as hypoglycemia. Nephrology team consulted in ED. Patient found to have recurrent hypoglycemia and was initiated on a dextrose drip with every hour glucose monitoring. The patient was admitted to [facility] due to increased risk of decompensation. No further history is obtainable. Patient is confused and lethargic the time my evaluation but has a positive gag reflex and is able to protect his airway without difficulty. No prior admission for review. No medication listed at time of admission for reconciliation. Hospital course 01/31. Patient is still confused and lethargic 02/01. Patient is more awake today. Hemoglobin dropped to 6.7. Ordered 1 unit PRBCs . His blood glucose has been stable. 02/02. Patient needs placement. Hemoglobin remained stable. Discharge when patient is placed 02/03. Blood glucose was elevated yesterday so his insulin was adjusted. Blood glucose appears more stable today. Awaiting placement. Hemoglobin stable today 02/04. Insulin adjusted as his blood glucose was elevated. He is awaiting placement. Hospitalist Physical - Physical exam Narrative exam: VITAL SIGNS: Reviewed. GENERAL: Awake HEAD: No signs of head trauma. EYES: Pupils are equal. Extraocular motions intact. MOUTH: Oropharynx is normal. NECK: No adenopathy, no JVD. CHEST: Chest with diminished breath sounds bilaterally. No wheezes, rales, or rhonchi. CARDIAC: normal S1 and S2, without murmurs, gallops, or rubs. ABDOMEN: Soft, non tender and non distended. No rebound or guarding, and no masses palpated. Bowel Sounds normal. MUSCULOSKELETAL: No edema NEUROLOGIC EXAM: Alert and oriented x3. No focal neurologic deficits SKIN: No obvious lesions - Constitutional Vitals: Temp Pulse Resp BP Pulse Ox 97.8 F 92 H 20 129/60 99 02/04/21 07:33 02/04/21 07:33 02/04/21 07:33 02/04/21 07:33 02/04/21 07:33 HEART Score - HEART Score Troponin: Troponin T 0.137 ng/mL (0.00-0.029) H* 01/30/21 11:11 Results - Labs CBC & Chem 7: 02/03/21 00:20 02/03/21 00:20 Labs: Laboratory Last Values WBC 3.9 K/mm3 (4.5-11.0) L 02/03/21 00:20 RBC 2.57 M/mm3 (3.65-5.03) L 02/03/21 00:20 Hgb 8.3 gm/dl (11.8-15.2) L 02/03/21 00:20 Hct 24.2 % (35.5-45.6) L 02/03/21 00:20 MCV 94 fl (84-94) 02/03/21 00:20 MCH 32 pg (28-32) 02/03/21 00:20 MCHC 34 % (32-34) 02/03/21 00:20 RDW 14.9 % (13.2-15.2) 02/03/21 00:20 Plt Count 60 K/mm3 (140-440) L 02/03/21 00:20 Lymph % (Auto) 13.3 % (13.4-35.0) L 02/03/21 00:20 [place] % (Auto) 8.6 % (0.0-7.3) H 02/03/21 00:20 Eos % (Auto) 2.5 % (0.0-4.3) 02/03/21 00:20 Baso % (Auto) 0.3 % (0.0-1.8) 02/03/21 00:20 Lymph # (Auto) 0.5 K/mm3 (1.2-5.4) L 02/03/21 00:20 [place] # (Auto) 0.3 K/mm3 (0.0-0.8) 02/03/21 00:20 Eos # (Auto) 0.1 K/mm3 (0.0-0.4) 02/03/21 00:20 Baso # (Auto) 0.0 K/mm3 (0.0-0.1) 02/03/21 00:20 Seg Neutrophils % 75.3 % (40.0-70.0) H 02/03/21 00:20 Seg Neutrophils # 2.9 K/mm3 (1.8-7.7) 02/03/21 00:20 PT 15.0 Sec. (12.2-14.9) H 01/30/21 11:11 INR 1.20 (0.87-1.13) H 01/30/21 11:11 APTT 27.2 Sec. (24.2-36.6) 01/30/21 11:11 Sodium 130 mmol/L (137-145) L 02/02/21 23:17 Potassium 4.5 mmol/L (3.6-5.0) 02/02/21 23:17 Chloride 89.7 mmol/L (98-107) L 02/02/21 23:17 Carbon Dioxide 26 mmol/L (22-30) 02/02/21 23:17 Anion Gap 19 mmol/L 02/02/21 23:17 BUN 58 mg/dL (9-20) H 02/02/21 23:17 Creatinine 6.5 mg/dL (0.8-1.3) H 02/02/21 23:17 Estimated GFR 9 ml/min 02/02/21 23:17 BUN/Creatinine Ratio 9 % 02/02/21 23:17 Glucose 569 mg/dL (75-100) H* 02/03/21 00:20 POC Glucose 399 mg/dL (70-105) H 02/04/21 02:22 Lactic Acid 1.40 mmol/L (0.7-2.0) 01/30/21 11:11 Calcium 8.6 mg/dL (8.4-10.2) 02/02/21 23:17 Phosphorus 6.00 mg/dL (2.5-4.5) H 02/01/21 05:08 Magnesium 2.30 mg/dL (1.7-2.3) 01/30/21 11:11 Total Bilirubin 0.50 mg/dL (0.1-1.2) 02/02/21 23:17 AST 30 units/L (5-40) 02/02/21 23:17 ALT 30 units/L (7-56) 02/02/21 23:17 Alkaline Phosphatase 181 units/L (35-129) H 02/02/21 23:17 Ammonia 83.0 umol/L (25-60) H 02/01/21 08:48 Total Creatine Kinase 45 units/L (55-170) L 01/30/21 11:11 Troponin T 0.137 ng/mL (0.00-0.029) H* 01/30/21 11:11 Total Protein 5.9 g/dL (6.3-8.2) L 02/02/21 23:17 Albumin 2.8 g/dL (3.9-5) L 02/02/21 23:17 Albumin/Globulin Ratio 0.9 % 02/02/21 23:17 Triglycerides 85 mg/dL (2-149) 01/30/21 11:11 Cholesterol 134 mg/dL (50-199) 01/30/21 11:11 LDL Cholesterol Direct 74 mg/dL (50-130) 01/30/21 11:11 HDL Cholesterol 55 mg/dL (40-59) 01/30/21 11:11 Cholesterol/HDL Ratio 2.43 % 01/30/21 11:11 TSH 1.690 mlU/mL (0.270-4.200) 01/30/21 11:11 Urine Color Yellow (Yellow) 01/30/21 23:57 Urine Turbidity Clear (Clear) 01/30/21 23:57 Urine pH 6.0 (5.0-7.0) 01/30/21 23:57 Ur Specific [place] 1.012 (1.003-1.030) 05/12/21 23:57 Urine Protein 100 mg/dl mg/dL (Negative) 01/30/21 23:57 Urine Glucose (UA) >=500 mg/dL (Negative) 01/30/21 23:57 Urine Ketones Neg mg/dL (Negative) 01/30/21 23:57 Urine Blood Neg (Negative) 01/30/21 23:57 Urine Nitrite Neg (Negative) 01/30/21 23:57 Urine Bilirubin Neg (Negative) 01/30/21 23:57 Urine Urobilinogen 2.0 mg/dL (<2.0) 01/30/21 23:57 Ur Leukocyte Esterase Neg (Negative) 01/30/21 23:57 Urine WBC (Auto) 6.0 /HPF (0.0-6.0) 01/30/21 23:57 Urine RBC (Auto) 13.0 /HPF (0.0-6.0) 01/30/21 23:57 U Epithel Cells (Auto) < 1.0 /HPF (0-13.0) 01/30/21 23:57 Urine Mucus Few /HPF 01/30/21 23:57 Nasal Screen MRSA (PCR) Positive (Negative) 01/31/21 Unknown Salicylates < 0.3 mg/dL (2.8-20.0) L 01/30/21 11:11 Urine Opiates Screen Presumptive negative 01/30/21 23:57 Urine Methadone Screen Presumptive negative 01/30/21 23:57 Acetaminophen 5.0 ug/mL (10.0-30.0) L 01/30/21 11:11 Ur Barbiturates Screen Presumptive negative 01/30/21 23:57 Ur Phencyclidine Scrn Presumptive negative 01/30/21 23:57 Ur Amphetamines Screen Presumptive negative 01/30/21 23:57 U Benzodiazepines Scrn Presumptive negative 01/30/21 23:57 Urine Cocaine Screen Presumptive negative 01/30/21 23:57 U Marijuana (THC) Screen Presumptive negative 01/30/21 23:57 Drugs of Abuse Note Disclamer 01/30/21 23:57 Plasma/Serum Alcohol < 0.01 % (0-0.07) 01/30/21 11:11 Hepatitis A IgM Ab Non-reactive (NonReactive) 01/30/21 11:11 Hep Bs Antigen Non-reactive (Negative) 01/30/21 11:11 Hep B Core IgM Ab Non-reactive (NonReactive) 01/30/21 11:11 Hepatitis C Antibody Non-reactive (NonReactive) 01/30/21 11:11 Blood Type A POSITIVE 01/30/21 11:11 Antibody Screen Negative 01/30/21 11:11 Crossmatch See Detail 01/30/21 11:11 Microbiology: Microbiology 01/30/21 11:11 Peripheral/Venous Blood Culture - Preliminary NO GROWTH AFTER 4 DAYS 01/30/21 11:11 Peripheral/Venous Blood Culture - Preliminary NO GROWTH AFTER 4 DAYS 01/30/21 00:00 Urine,Catheterized - Straight Catheter Urine Culture - Final Sr/IV: Voiding Method Condom Catheter Active Medications - Current Medications Current Medications: Generic Name Dose Route Start Last Admin Trade Name Freq PRN Reason Stop Dose Admin Albuterol 2.5 mg 01/30/21 13:26 Albuterol 2.5 Mg/3 Ml Nebu IH Q4HRT PRN Shortness Of Breath Dextrose 50 ml 01/30/21 22:15 Dextrose 50% In Water (25gm) 50 Ml Syringe IV Q30MIN PRN Hypoglycemia Protocol Hydralazine HCl 5 mg 02/02/21 22:02 02/02/21 22:32 Hydralazine 20 Mg/1 Ml Inj IV 5 mg Q4H PRN Administration hypertention Sodium Chloride 100 mls @ 999 mls/hr 01/30/21 13:00 Nacl 0.9% IV OLIVIA PRN Hypotension Insulin Glargine 26 units 02/04/21 10:00 02/04/21 09:22 Insulin Glargine 100 Units/Ml SUB-Q 26 units BID LEYLA Administration Insulin Human Lispro 0 unit 02/04/21 09:00 Insulin Lispro 100 Unit/Ml SUB-Q [facility] Protocol Lactulose 20 gm 02/01/21 14:00 02/04/21 05:42 Lactulose 20 Gm/30 Ml Oral Liqd PO 20 gm Q8H LEYLA Administration Ondansetron HCl 4 mg 01/30/21 13:26 02/04/21 00:41 Ondansetron 4 Mg/2 Ml Inj IV 4 mg Q8H PRN Administration Nausea And Vomiting Sodium Chloride 10 ml 01/30/21 22:00 02/04/21 09:18 Sodium Chloride 0.9% 10 Ml Flush Syringe IV 10 ml BID LEYLA Administration Sodium Chloride 10 ml 01/30/21 13:26 Sodium Chloride 0.9% 10 Ml Flush Syringe IV PRN PRN LINE FLUSH Tramadol HCl 50 mg 01/30/21 22:17 01/30/21 23:00 Tramadol 50 Mg Tab PO 50 mg Q6H PRN Administration Pain, Moderate (4-6) Nutrition/Malnutrition Assess - Dietary Evaluation Nutrition/Malnutrition Findings: Nutrition Notes Start: 01/31/21 09:41 Freq: Status: Active Protocol: Document 01/31/21 09:41 LILIYA (Rec: 01/31/21 10:05 LILIYA [id number]) Co-Sign 01/31/21 09:41 ALISSA Nutrition Notes Need for Assessment generated from: MD Order Initial or Follow up Assessment Current Diagnosis CKD (stage V CKD),Diabetes, Hypertension,Hyperlipidemia Other Pertinent Diagnosis cirrhosis w/ esophageal varices, anemia Current Diet Cardiac/Consistent CHO Labs/Tests Na 135 BUN 55 CR 6.9 BG 448 Pertinent Medications D51/2NS 250ml/hr Insulin Height 5 ft 11 in Weight 63.7 kg Usual Body Weight 77 kg [place] Body Weight (kg) 78.18 BMI 19.5 Intake Prior to Admission Good Weight change and time frame 17% wt loss, 3 months Weight Status Appropriate Subjective/Other Information MD order for dietary supplement. Pt reports good appetite and consumed 100% breakfast and Glucerna. Per chart, pt has hx of noncompliance with dialysis and reoccuring hypoglycemia. Pt received dialysis on 01/30 and had 1L removed. Percent of energy/protein needs met: 39%/34% (PO intakes) Burn Absent Trauma Absent GI Symptoms None Food Allergy No Current % PO Good (75-100%) Minimum of two criteria No Interpretation of Weight Loss (severe) >7.5% in 3 months #1 Nutrition Diagnosis Increased nutrient needs ( specify in comment below) Comments: protein Etiology dialysis As Evidenced by Signs and Symptoms pt meeting 34% protein needs via PO intakes Is patient on ventilator? No Is Patient Ambulatory and/or Out of Bed No REE-([facility]-confined to bed) 5822.456 Calculation Used for Recommendations [facility] Additional Notes Pro: >76g (>1.2 g/kg) Fluid: 1,000-1,500 mL or per MD Nutrition Intervention Change Diet Order: Renal/Consistent CHO Nutrition Support: D/C Glucerna Butter Pecan Nepro Butter Pecan Daily Kcal 425 Protein (gm) 19 Goal #1 Meet at least 75% energy and protein needs via PO/ONS intakes Anticipated Discharge Needs: Renal/Consistent CHO diet Follow-Up By: 02/05/21 Additional Comments F/U for renal diet/ONS tolerance and intakes
--- NOTE | 2021-02-04 12:32 | Discharge Summary ---
Providers - Providers Date of Admission: 01/30/21 13:26 Date of discharge: 02/04/21 Attending physician: FRANK HARO 01/30/21 11:00 Consult to Physician [CONS] Urgent Comment: Consulting Provider: MOLLY TOVAR Physician Instructions: Reason For Exam: esrd 01/31/21 02:20 Consult to Dietitian/Nutrition [CONS] Routine Physician Instructions: Reason For Exam: Reason for Consult: Pt needs oral supplement 01/31/21 12:55 Physical Therapy Evaluation and Treat [CONS] Routine Comment: Reason For Exam: Debility Primary care physician: BOSTON CUTTER Hospitalization Condition: Fair Hospital course: 55 YO Male with ESRD on HD, Noncompliance with outpatient dialysis, Anemia, HBV, Chronic Liver Disease, Cirrhosis complicated by Esophageal Varices, HTN, Debility, DM presents to ED for evaluation. Patient is confused with diminished cognition and is unable to provide detailed history. Patient is only able to provide minimal history. Patient history taken from EMS staff, ED staff as well as patient family members. Patient family report the patient was found to have increased confusion today. EMS was notified and upon arrival the patient was found to be in distress with a blood glucose in the 50s. The patient was treated with supportive care and subsequently transported to [facility] for further care and evaluation of the aforementioned symptoms. The patient was seen and evaluated in the emergency department. All lab and imaging studies reviewed. The patient was found to have hepatic encephalopathy complicated by diminished cognition, end-stage renal disease in need of urgent dialysis, as well as hypoglycemia. Nephrology team consulted in ED. Patient found to have recurrent hypoglycemia and was initiated on a dextrose drip with every hour glucose monitoring. The patient was admitted to [facility] due to increased risk of decompensation. No further history is obtainable. Patient is confused and lethargic the time my evaluation but has a positive gag reflex and is able to protect his airway without difficulty. No prior admission for review. No medication listed at time of admission for reconciliation. Hospital course 01/31. Patient is still confused and lethargic 02/01. Patient is more awake today. Hemoglobin dropped to 6.7. Ordered 1 unit PRBCs . His blood glucose has been stable. 02/02. Patient needs placement. Hemoglobin remained stable. Discharge when patient is placed 02/03. Blood glucose was elevated yesterday so his insulin was adjusted. Blood glucose appears more stable today. Awaiting placement. Hemoglobin stable today 02/04. Insulin adjusted as his blood glucose was elevated. He is stable for discharge today. He is hemodynamically stable. Disposition: DC-01 TO HOME OR SELFCARE Final Discharge Diagnosis (Prints w/discharge instructions): Hypoglycemia Time spent for discharge: 45 mins Core Measure Documentation - Palliative Care Palliative Care/ Comfort Measures: Not Applicable - Core Measures Any of the following diagnoses?: none Exam - Physical Exam Narrative exam: VITAL SIGNS: Reviewed. GENERAL: Awake HEAD: No signs of head trauma. EYES: Pupils are equal. Extraocular motions intact. MOUTH: Oropharynx is normal. NECK: No adenopathy, no JVD. CHEST: Chest with diminished breath sounds bilaterally. No wheezes, rales, or rhonchi. CARDIAC: normal S1 and S2, without murmurs, gallops, or rubs. ABDOMEN: Soft, non tender and non distended. No rebound or guarding, and no masses palpated. Bowel Sounds normal. MUSCULOSKELETAL: No edema NEUROLOGIC EXAM: Alert and oriented x3. No focal neurologic deficits SKIN: No obvious lesions - Constitutional Vitals: Temp Pulse Resp BP Pulse Ox 99.0 F 95 H 18 97/44 99 02/04/21 10:20 02/04/21 12:15 02/04/21 10:20 02/04/21 12:15 02/04/21 07:33 Plan Additional Instructions: Continue insulin as prescribed. Follow up with PCP in 1 week Follow up with: PRIMARY CAREMD [Primary Care Provider] - 3-5 Days Prescriptions: Lactulose [Cephulac] 20 gm PO Q8H #30 oral.liqd Insulin Glargine [Lantus VIAL] 26 units SUB-Q BID #20 ml
[2021-02-04] MEDS: INSULIN LISPRO 100 UNIT/ML SUB-Q SCH ×3 (13:39→16:58)
[2021-02-04 14:55] VITALS: BP 136/64
== END 2021-02-04 17:38 | disposition home or self-care (01) | DRG 441 ==
LOC: ED 09:42 → IMCU 13:26 → 4A 01-31 00:48
PROVIDERS: ADMIT Internal Medicine; ATTEND Internal Medicine
PROC: 5A1D70Z Performance of Urinary Filtration, Intermittent, Less than 6 Hours Per Day (ICD-10-PCS; principal; 2021-01-30)
PROC: 5A1D70Z Performance of Urinary Filtration, Intermittent, Less than 6 Hours Per Day (ICD-10-PCS; 2021-02-01)
PROC: 30233L1 Transfusion of Nonautologous Fresh Plasma into Peripheral Vein, Percutaneous Approach (ICD-10-PCS; 2021-02-01)
PROC: 5A1D70Z Performance of Urinary Filtration, Intermittent, Less than 6 Hours Per Day (ICD-10-PCS; 2021-02-04)
DX: K72.90 Hepatic failure, unspecified without coma (principal); N18.6 End stage renal disease; E11.649 Type 2 diabetes mellitus with hypoglycemia without coma; D69.6 Thrombocytopenia, unspecified; I12.0 Hypertensive chronic kidney disease with stage 5 chronic kidney disease or end stage renal disease; E11.22 Type 2 diabetes mellitus with diabetic chronic kidney disease; D63.1 Anemia in chronic kidney disease; T68.XXXA Hypothermia, initial encounter; Z89.511 Acquired absence of right leg below knee; Z99.2 Dependence on renal dialysis; Z91.15 Patient's noncompliance with renal dialysis; Z81.1 Family history of alcohol abuse and dependence; Z82.49 Family history of ischemic heart disease and other diseases of the circulatory system
CPT/HCPCS: 36415; 36430; 70450; 71045; 80048; 80053; 80061; 80074; 80307; 80320; 81001; 82140; 82550; 82947; 82962; 83735; 84100; 84443; 84484; 85014; 85018; 85025; 85027; 85610; 85730; 86850; 86900; 86901; 86920; 87040; 87086; 87641; 93005; G0378; G0480; J0360; J0696; J0885; J1815; J2405; J7050; P9016

== ENCOUNTER 2021-02-12 14:05 | Inpatient (IN) | payer MEDICAID ==
--- NOTE | 2021-02-12 14:28 | Emergency Department Report ---
ED Altered Mental Status HPI - General Chief Complaint: Dyspnea/Respdistress Stated Complaint: SEPSIS Time Seen by Provider: 02/12/21 14:14 Source: EMS Mode of arrival: Stretcher Limitations: Altered Mental Status - History of Present Illness Initial Comments: Patient is 55-year-old male with history of end-stage renal disease on hemodialysis, hypertension diabetes and history of hepatic encephalopathy. Patient was recently discharged from the hospital approximately 9 days ago with similar presentation. Patient brought to the emergency room via EMS from home for evaluation of altered mental status and decreased responsiveness for the last few days. Patient is not communicating and history provided by EMS from the family. Family stated that patient missed dialysis. MD Complaint: altered mental status, confusion, decreased responsiveness -: days(s) Severity: moderate - Related Data Home Medications Medication Instructions Recorded Confirmed Last Taken Insulin Glargine [Lantus VIAL] 30 unit SUB-Q QHS 01/31/21 01/31/21 Unknown Lispro Insulin [HumaLOG] 0 unit SQ ACHS 01/31/21 01/31/21 Unknown Previous Rx's Medication Instructions Recorded Last Taken Type Insulin Glargine [Lantus VIAL] 26 units SUB-Q BID #20 ml 02/04/21 Unknown Rx Lactulose [Cephulac] 20 gm PO Q8H #30 oral.liqd 02/04/21 Unknown Rx Allergies Allergy/AdvReac Type Severity Reaction Status Date / Time No Known Allergies Allergy Unverified 01/30/21 09:58 ED Review of Systems ROS: Stated complaint: SEPSIS Other details as noted in HPI Comment: Unobtainable due to pts medical conditions ED Past Medical Hx - Past Medical History Hx Hypertension: Yes Hx Congestive Heart Failure: No Hx Diabetes: Yes Hx Asthma: No Hx COPD: No - Surgical History Additional Surgical History: RBKA - Social History Smoking Status: Unknown if ever smoked - Medications Home Medications: Home Medications Medication Instructions Recorded Confirmed Last Taken Type Insulin Glargine [Lantus VIAL] 30 unit SUB-Q QHS 01/31/21 01/31/21 Unknown History Lispro Insulin [HumaLOG] 0 unit SQ ACHS 01/31/21 01/31/21 Unknown History Insulin Glargine [Lantus VIAL] 26 units SUB-Q BID #20 ml 02/04/21 Unknown Rx Lactulose [Cephulac] 20 gm PO Q8H #30 oral.liqd 02/04/21 Unknown Rx ED Physical Exam - General Limitations: Altered Mental Status General appearance: alert, in no apparent distress - Head Head exam: Present: atraumatic, normocephalic, normal inspection - Eye Eye exam: Present: normal appearance - ENT ENT exam: Present: normal exam, normal orophraynx, mucous membranes moist - Neck Neck exam: Present: normal inspection, full ROM. Absent: tenderness, meningismus - Respiratory Respiratory exam: Present: normal lung sounds bilaterally - Cardiovascular Cardiovascular Exam: Present: regular rate, normal rhythm, normal heart sounds - GI/Abdominal GI/Abdominal exam: Present: soft, distended, normal bowel sounds. Absent: tenderness, guarding, rebound, rigid, hernia - Extremities Exam Extremities exam: Present: normal inspection, normal capillary refill, other (Right below-knee amputation.) - Back Exam Back exam: Present: normal inspection, full ROM. Absent: CVA tenderness (R), CV A tenderness (L) - Neurological Exam Neurological exam: Present: altered - Psychiatric Psychiatric exam: Present: flat affect - Skin Skin exam: Present: warm, intact, normal color ED Course Vital Signs 02/12/21 02/12/21 02/12/21 14:12 14:16 14:31 Temperature 98.4 F Pulse Rate 67 67 Respiratory 11 L 11 L Rate Blood Pressure 137/62 142/63 O2 Sat by Pulse 95 100 97 Oximetry 02/12/21 02/12/21 02/12/21 15:01 15:31 16:01 Temperature Pulse Rate 70 71 69 Respiratory 12 11 L 9 L Rate Blood Pressure 144/59 144/57 140/57 O2 Sat by Pulse 100 100 100 Oximetry 02/12/21 16:31 Temperature Pulse Rate 69 Respiratory 11 L Rate Blood Pressure 149/67 O2 Sat by Pulse 100 Oximetry - Lab Data Result diagrams: 02/12/21 14:42 02/12/21 14:42 Lab Results 02/12/21 02/12/21 02/12/21 Range/Units 14:42 14:42 14:42 WBC 4.4 L (4.5-11.0) K/mm3 RBC 2.26 L (3.65-5.03) M/mm3 Hgb 7.3 L (11.8-15.2) gm/dl Hct 21.5 L (35.5-45.6) % MCV 95 H (84-94) fl MCH 32 (28-32) pg MCHC 34 (32-34) % RDW 15.0 (13.2-15.2) % Plt Count 112 L (140-440) K/mm3 Lymph % (Auto) 9.2 L (13.4-35.0) % [place] % (Auto) 7.8 H (0.0-7.3) % Eos % (Auto) 1.6 (0.0-4.3) % Baso % (Auto) 0.4 (0.0-1.8) % Lymph # (Auto) 0.4 L (1.2-5.4) K/mm3 [place] # (Auto) 0.3 (0.0-0.8) K/mm3 Eos # (Auto) 0.1 (0.0-0.4) K/mm3 Baso # (Auto) 0.0 (0.0-0.1) K/mm3 Seg Neutrophils % 81.0 H (40.0-70.0) % Seg Neutrophils # 3.5 (1.8-7.7) K/mm3 PT 14.9 (12.2-14.9) Sec. INR 1.19 H (0.87-1.13) APTT 27.9 (24.2-36.6) Sec. Sodium 135 L (137-145) mmol/L Potassium 5.4 H (3.6-5.0) mmol/L Chloride 97.4 L (98-107) mmol/L Carbon Dioxide 22 (22-30) mmol/L Anion Gap 21 mmol/L BUN 91 H (9-20) mg/dL Creatinine 7.9 H (0.8-1.3) mg/dL Estimated GFR 7 ml/min BUN/Creatinine Ratio 12 % Glucose 563 H* (75-100) mg/dL Lactic Acid (0.7-2.0) mmol/L Calcium 8.4 (8.4-10.2) mg/dL Total Bilirubin (0.1-1.2) mg/dL Direct Bilirubin (0-0.2) mg/dL Indirect Bilirubin mg/dL AST (5-40) units/L ALT (7-56) units/L Alkaline Phosphatase (35-129) units/L Ammonia (25-60) umol/L Troponin T (0.00-0.029) ng/mL Total Protein (6.3-8.2) g/dL Albumin (3.9-5) g/dL Albumin/Globulin Ratio % Triglycerides (2-149) mg/dL Cholesterol (50-199) mg/dL LDL Cholesterol Direct (50-130) mg/dL HDL Cholesterol (40-59) mg/dL Cholesterol/HDL Ratio % 02/12/21 02/12/21 02/12/21 Range/Units 14:42 14:42 14:42 WBC (4.5-11.0) K/mm3 RBC (3.65-5.03) M/mm3 Hgb (11.8-15.2) gm/dl Hct (35.5-45.6) % MCV (84-94) fl MCH (28-32) pg MCHC (32-34) % RDW (13.2-15.2) % Plt Count (140-440) K/mm3 Lymph % (Auto) (13.4-35.0) % [place] % (Auto) (0.0-7.3) % Eos % (Auto) (0.0-4.3) % Baso % (Auto) (0.0-1.8) % Lymph # (Auto) (1.2-5.4) K/mm3 [place] # (Auto) (0.0-0.8) K/mm3 Eos # (Auto) (0.0-0.4) K/mm3 Baso # (Auto) (0.0-0.1) K/mm3 Seg Neutrophils % (40.0-70.0) % Seg Neutrophils # (1.8-7.7) K/mm3 PT (12.2-14.9) Sec. INR (0.87-1.13) APTT (24.2-36.6) Sec. Sodium (137-145) mmol/L Potassium (3.6-5.0) mmol/L Chloride (98-107) mmol/L Carbon Dioxide (22-30) mmol/L Anion Gap mmol/L BUN (9-20) mg/dL Creatinine (0.8-1.3) mg/dL Estimated GFR ml/min BUN/Creatinine Ratio % Glucose (75-100) mg/dL Lactic Acid 2.20 H* (0.7-2.0) mmol/L Calcium (8.4-10.2) mg/dL Total Bilirubin 0.40 (0.1-1.2) mg/dL Direct Bilirubin < 0.2 (0-0.2) mg/dL Indirect Bilirubin 0.2 mg/dL AST 12 (5-40) units/L ALT 24 (7-56) units/L Alkaline Phosphatase 194 H (35-129) units/L Ammonia 212.0 H (25-60) umol/L Troponin T 0.107 H* (0.00-0.029) ng/mL Total Protein 5.7 L (6.3-8.2) g/dL Albumin 3.1 L (3.9-5) g/dL Albumin/Globulin Ratio 1.2 % Triglycerides 130 (2-149) mg/dL Cholesterol 129 (50-199) mg/dL LDL Cholesterol Direct 60 (50-130) mg/dL HDL Cholesterol 51 (40-59) mg/dL Cholesterol/HDL Ratio 2.52 % - EKG Data -: EKG Interpreted by Me EKG shows normal: sinus rhythm - Radiology Data Radiology results: report reviewed - Medical Decision Making Patient is 55-year-old male with history of end-stage renal disease on hemodialysis, hypertension diabetes and history of hepatic encephalopathy. Patient was recently discharged from the hospital approximately 9 days ago with similar presentation. Patient brought to the emergency room via EMS from home for evaluation of altered mental status and decreased responsiveness for the last few days. Patient is not communicating and history provided by EMS from the family. Family stated that patient missed dialysis. Vital signs remained stable in the ER. Chest x-ray is unremarkable. Labs re viewed and showed ammonia level of 212. Patient started on lactulose. Potassium is 5.4 and blood glucose is 550. Patient received insulin. I discussed the patient with Dr. Fry, he agreed to admit the patient to medical service for further management. Critical Care Time: Yes Critical care time in (mins) excluding proc time.: 30 Critical care attestation.: If time is entered above; I have spent that time in minutes in the direct care of this critically ill patient, excluding procedure time. ED Disposition Clinical Impression: Acute encephalopathy, Altered mental status Disposition: [id number] OP ADMIT IP TO THIS HOSP Is pt being admited?: Yes Condition: Stable
--- NOTE | 2021-02-12 14:56 | XRay Report ---
CHEST 1 VIEW 02/12/2021 1:48 PM INDICATION / CLINICAL INFORMATION: Altered Mental Status. COMPARISON: 01/30/2021 FINDINGS: SUPPORT DEVICES: None. HEART / MEDIASTINUM: Stable cardiomegaly. LUNGS / PLEURA: No significant pulmonary or pleural abnormality. No pneumothorax. ADDITIONAL FINDINGS: No significant additional findings. IMPRESSION: No acute abnormality. Signer Name: Michael Schaffer MD Signed: 02/12/2021 2:52 PM Workstation Name: [id number]
[2021-02-12 15:10] LABS: Basophils % (Auto) 0.4 % (0.0-1.8); Eosinophils # (Auto) 0.1 K/mm3 (0.0-0.4); Eosinophils % (Auto) 1.6 % (0.0-4.3); Hematocrit 21.5 % (35.5-45.6); Hemoglobin 7.3 gm/dl (11.8-15.2); Lymphocytes # (Auto) 0.4 K/mm3 (1.2-5.4); Lymphocytes % (Auto) 9.2 % (13.4-35.0); Mean Corpuscular HGB Conc 34 % (32-34); Mean Corpuscular Volume 95 fl (84-94); Monocytes # (Auto) 0.3 K/mm3 (0.0-0.8); Monocytes % (Auto) 7.8 % (0.0-7.3); Platelet Count 112 K/mm3 (140-440); Red Blood Count 2.26 M/mm3 (3.65-5.03)
[2021-02-12 15:20] LABS: Calcium 8.4 mg/dL (8.4-10.2); INR 1.19 (0.87-1.13)
[2021-02-12 15:21] LABS: Partial Thromboplastin Time 27.9 Sec. (24.2-36.6)
[2021-02-12 15:24] LABS: Alanine Aminotransferase 24 units/L (7-56); Albumin 3.1 g/dL (3.9-5)
[2021-02-12 16:18] LABS: Bilirubin,Direct < 0.2 mg/dL (0-0.2)
[2021-02-12] MEDS ORDERED: INSULIN REGULAR, HUMAN 100 UNITS/1 ML IV ONE (16:21)
[2021-02-12 16:53] LABS: Chol/HDL Ratio 2.52 %; HDL Cholesterol 51 mg/dL (40-59); LDL Cholesterol,Direct 60 mg/dL (50-130)
[2021-02-12] MEDS ORDERED: ACETAMINOPHEN 325 MG TAB PO PRN (17:57)
[2021-02-12] MEDS ORDERED: ONDANSETRON 4 MG/2 ML INJ IV PRN (17:57)
[2021-02-12] MEDS ORDERED: ALBUTEROL 2.5 MG/3 ML NEBU IH PRN (17:57)
--- NOTE | 2021-02-12 17:57 | History and Physical Report ---
History of Present Illness Chief complaint: He is not acting like himself History of present illness: 55 YO Male with ESRD on HD, Noncompliance with outpatient dialysis, Anemia, HBV, Chronic Liver Disease, Cirrhosis complicated by Esophageal Varices, HTN, Debility, DM presents to ED for evaluation. Patient is confused with diminished cognition and is unable to provide detailed history. Patient history taken from EMS staff, ED staff as well as patient family members. Patient family report the patient was "not acting like himself" and found to have worsening confusion over the past 2 days. EMS was notified and upon arrival the patient was found to be in distress and subsequent transported to [facility] for further care and evaluation of the aforementioned symptoms. The patient was seen and evaluated in the emergency department. All lab and imaging studies reviewed. The patient was found to have hepatic encephalopathy complicated by diminished cognition, end-stage renal disease in need of urgent dialysis, as well as uncontrolled diabetes, and acidosis. Nephrology team consulted in ED. The patient was a dmitted to [facility] due to increased risk of decompensation. No further history is obtainable. Patient is confused and lethargic the time my evaluation but has a positive gag reflex and is able to protect his airway without difficulty. No prior admission for review. No medication listed at time of admission for reconciliation. Past History Past Medical History: ESRD, hypertension, other (See HPI) Past Surgical History: Other (Right BKA, dialysis access) Social history: single. denies: smoking, alcohol abuse, prescription drug abuse Family history: hypertension Medications and Allergies Allergies Allergy/AdvReac Type Severity Reaction Status Date / Time No Known Allergies Allergy Unverified 01/30/21 09:58 Home Medications Medication Instructions Recorded Confirmed Last Taken Type Insulin Glargine [Lantus VIAL] 30 unit SUB-Q QHS 01/31/21 01/31/21 Unknown History Lispro Insulin [HumaLOG] 0 unit SQ ACHS 01/31/21 01/31/21 Unknown History Insulin Glargine [Lantus VIAL] 26 units SUB-Q BID #20 ml 02/04/21 Unknown Rx Lactulose [Cephulac] 20 gm PO Q8H #30 oral.liqd 02/04/21 Unknown Rx Review of Systems ROS unobtainable: due to mental status Exam - Constitutional Vitals: Temp Pulse Resp BP Pulse Ox 98.4 F 72 11 L 151/66 100 02/12/21 14:12 02/12/21 17:01 02/12/21 17:01 02/12/21 17:01 02/12/21 17:01 General appearance: Present: mild distress - EENT Eyes: Present: PERRL ENT: hearing intact, clear oral mucosa - Neck Neck: Present: supple, normal ROM - Respiratory Respiratory effort: normal Respiratory: bilateral: CTA - Cardiovascular Heart Sounds: Present: S1 & S2. Absent: rub, click - Extremities Extremities: pulses symmetrical, No edema Extremity abnormal: other (Right BKA) Peripheral Pulses: within normal limits - Abdominal General gastrointestinal: Present: soft, non-tender, non-distended, normal bowel sounds Male genitourinary: Present: normal - Integumentary Integumentary: Present: clear, warm, dry - Musculoskeletal Musculoskeletal: generalized weakness - Psychiatric Psychiatric: no appropriate mood/affect, no intact judgment & insight, no memory intact - Neurologic Neurologic: CNII-XII intact, no focal deficits, moves all extremities, no gait normal HEART Score - HEART Score Troponin: Troponin T 0.107 ng/mL (0.00-0.029) H* 02/12/21 14:42 Results - Labs CBC & Chem 7: 02/12/21 14:42 02/12/21 14:42 Labs: Abnormal lab results 02/12/21 02/12/21 02/12/21 Range/Units 14:42 14:42 14:42 WBC 4.4 L (4.5-11.0) K/mm3 RBC 2.26 L (3.65-5.03) M/mm3 Hgb 7.3 L (11.8-15.2) gm/dl Hct 21.5 L (35.5-45.6) % MCV 95 H (84-94) fl Plt Count 112 L (140-440) K/mm3 Lymph % (Auto) 9.2 L (13.4-35.0) % [place] % (Auto) 7.8 H (0.0-7.3) % Lymph # (Auto) 0.4 L (1.2-5.4) K/mm3 Seg Neutrophils % 81.0 H (40.0-70.0) % INR 1.19 H (0.87-1.13) Sodium 135 L (137-145) mmol/L Potassium 5.4 H (3.6-5.0) mmol/L Chloride 97.4 L (98-107) mmol/L BUN 91 H (9-20) mg/dL Creatinine 7.9 H (0.8-1.3) mg/dL Glucose 563 H* (75-100) mg/dL POC Glucose (70-105) mg/dL Lactic Acid (0.7-2.0) mmol/L Alkaline Phosphatase (35-129) units/L Ammonia (25-60) umol/L Troponin T (0.00-0.029) ng/mL Total Protein (6.3-8.2) g/dL Albumin (3.9-5) g/dL 02/12/21 02/12/21 02/12/21 Range/Units 14:42 14:42 14:42 WBC (4.5-11.0) K/mm3 RBC (3.65-5.03) M/mm3 Hgb (11.8-15.2) gm/dl Hct (35.5-45.6) % MCV (84-94) fl Plt Count (140-440) K/mm3 Lymph % (Auto) (13.4-35.0) % [place] % (Auto) (0.0-7.3) % Lymph # (Auto) (1.2-5.4) K/mm3 Seg Neutrophils % (40.0-70.0) % INR (0.87-1.13) Sodium (137-145) mmol/L Potassium (3.6-5.0) mmol/L Chloride (98-107) mmol/L BUN (9-20) mg/dL Creatinine (0.8-1.3) mg/dL Glucose (75-100) mg/dL POC Glucose (70-105) mg/dL Lactic Acid 2.20 H* (0.7-2.0) mmol/L Alkaline Phosphatase 194 H (35-129) units/L Ammonia 212.0 H (25-60) umol/L Troponin T 0.107 H* (0.00-0.029) ng/mL Total Protein 5.7 L (6.3-8.2) g/dL Albumin 3.1 L (3.9-5) g/dL 02/12/21 Range/Units 16:14 WBC (4.5-11.0) K/mm3 RBC (3.65-5.03) M/mm3 Hgb (11.8-15.2) gm/dl Hct (35.5-45.6) % MCV (84-94) fl Plt Count (140-440) K/mm3 Lymph % (Auto) (13.4-35.0) % [place] % (Auto) (0.0-7.3) % Lymph # (Auto) (1.2-5.4) K/mm3 Seg Neutrophils % (40.0-70.0) % INR (0.87-1.13) Sodium (137-145) mmol/L Potassium (3.6-5.0) mmol/L Chloride (98-107) mmol/L BUN (9-20) mg/dL Creatinine (0.8-1.3) mg/dL Glucose (75-100) mg/dL POC Glucose 477 H (70-105) mg/dL Lactic Acid (0.7-2.0) mmol/L Alkaline Phosphatase (35-129) units/L Ammonia (25-60) umol/L Troponin T (0.00-0.029) ng/mL Total Protein (6.3-8.2) g/dL Albumin (3.9-5) g/dL Assessment and Plan - Patient Problems (1) Hepatic encephalopathy Current Visit: No Status: Acute Plan to address problem: Neuro check, seizure precaution, aspiration precaution, fall precautions, continue to monitor. (2) End stage renal disease Current Visit: No Status: Acute Plan to address problem: Nephrology team consulted, strict I's/O, monitor urine output every shift, dialysis as per renal team, avoid nephrotoxic agents. (3) Acidosis Current Visit: Yes Status: Acute Plan to address problem: BMP, repeat BMP in a.m., nephrology team consulted, dialysis as per renal team. (4) Hyponatremia Current Visit: Yes Status: Acute Plan to address problem: BMP, supportive care, repeat BMP in a.m., monitor fluid balance. (5) Hyperammonemia Current Visit: Yes Status: Acute Plan to address problem: Supportive care, repeat ammonia level in a.m. Lactulose x1. (6) DVT prophylaxis Current Visit: No Status: Acute Plan to address problem: SCD to bilateral lower extremities while in bed
[2021-02-12] MEDS ORDERED: DEXTROSE 50% IN WATER (25GM) 50 ML SYRINGE IV PRN (23:01)
[2021-02-12] MEDS: INSULIN REGULAR, HUMAN 100 UNITS/1 ML SUB-Q SCH (23:34)
[2021-02-13] MEDS ORDERED: traMADol 50 MG TAB PO PRN (02:12)
[2021-02-13 06:28] LABS: Basophils % (Auto) 0.4 % (0.0-1.8); Eosinophils # (Auto) 0.1 K/mm3 (0.0-0.4); Eosinophils % (Auto) 1.6 % (0.0-4.3); Hematocrit 21.6 % (35.5-45.6); Hemoglobin 7.5 gm/dl (11.8-15.2); Lymphocytes # (Auto) 0.7 K/mm3 (1.2-5.4); Lymphocytes % (Auto) 12.2 % (13.4-35.0); Mean Corpuscular HGB Conc 35 % (32-34); Mean Corpuscular Volume 94 fl (84-94); Monocytes # (Auto) 0.5 K/mm3 (0.0-0.8); Monocytes % (Auto) 8.3 % (0.0-7.3); Platelet Count 137 K/mm3 (140-440); Red Blood Count 2.31 M/mm3 (3.65-5.03); Red Cell Distribution Width 14.8 % (13.2-15.2)
[2021-02-13 06:41] LABS: Albumin 2.8 g/dL (3.9-5); Calcium 8.7 mg/dL (8.4-10.2)
[2021-02-13] MEDS: INSULIN REGULAR, HUMAN 100 UNITS/1 ML SUB-Q SCH ×4 (08:43→23:47)
[2021-02-13] MEDS ORDERED: EPOETIN ALFA-EPBX 20,000 UNIT/1 ML VIAL SUB-Q PRN (10:18)
[2021-02-13] MEDS ORDERED: SODIUM CHLORIDE 0.9% 100 ML IV PRN (10:18)
--- NOTE | 2021-02-13 10:18 | Consultation ---
History of Present Illness - Reason for Consult Consult date: 02/13/21 end stage renal disease - History of Present Illness The patient is a 55 YO male with history significant for HTN, DM type 2, ESRD on HD (MWF), Noncompliance with outpatient dialysis, Anemia, HBV, Chronic Liver Disease, Cirrhosis complicated by Esophageal Varices and Debility who presented to [facility] ED 02/12 for evaluation of AMS. Patient was lethargic to provide any history and there was no family member at the bedside. Patient family reported the patient was "not acting like himself" and found to have worsening confusion over the past 2 days. Of note he was recently admitted to this facility with similar presentation and was discharged on 02/04. Initial bl glucose was 563. The patient was found to have hepatic encephalopathy. Nephrology was consulted for further evaluation and treatment of ESRD. Past History Past Medical History: ESRD, hypertension, other (See HPI) Past Surgical History: Other (Right BKA, dialysis access) Social history: single. denies: smoking, alcohol abuse, prescription drug abuse Family history: hypertension Medications and Allergies Allergies Allergy/AdvReac Type Severity Reaction Status Date / Time No Known Allergies Allergy Verified 02/13/21 09:53 Home Medications Medication Instructions Recorded Confirmed Last Taken Type Insulin Glargine [Lantus VIAL] 30 unit SUB-Q QHS 01/31/21 02/13/21 Unknown History Lispro Insulin [HumaLOG] 0 unit SQ ACHS 01/31/21 02/13/21 Unknown History Insulin Glargine [Lantus VIAL] 26 units SUB-Q BID #20 ml 02/04/21 02/13/21 Unknown Rx Lactulose [Cephulac] 20 gm PO Q8H #30 oral.liqd 02/04/21 02/13/21 Unknown Rx Active Meds: Active Medications Acetaminophen (Acetaminophen 325 Mg Tab) 650 mg PO Q4H PRN PRN Reason: Pain MILD(1-3)/Fever >100.5/[place] Albuterol (Albuterol 2.5 Mg/3 Ml Nebu) 2.5 mg IH Q4HRT PRN PRN Reason: Shortness Of Breath Dextrose (Dextrose 50% In Water (25gm) 50 Ml Syringe) 50 ml IV Q30MIN PRN; Protocol PRN Reason: Hypoglycemia Insulin Human Regular (Insulin Regular, Human 100 Units/1 Ml) 0 units SUB-Q ACHS [facility]; Protocol Last Admin: 02/13/21 08:43 Dose: Not Given Documented by: Ondansetron HCl (Ondansetron 4 Mg/2 Ml Inj) 4 mg IV Q8H PRN PRN Reason: Nausea And Vomiting Sodium Chloride (Sodium Chloride 0.9% 10 Ml Flush Syringe) 10 ml IV BID [facility] Last Admin: 02/12/21 21:31 Dose: 10 ml Documented by: Sodium Chloride (Sodium Chloride 0.9% 10 Ml Flush Syringe) 10 ml IV PRN PRN PRN Reason: LINE FLUSH Tramadol HCl (Tramadol 50 Mg Tab) 50 mg PO Q6H PRN PRN Reason: Pain, Moderate (4-6) Review of Systems ROS unobtainable: due to mental status Exam - Vital Signs Vital signs: Vital Signs Temp Pulse Resp BP Pulse Ox 98.4 F 67 11 L 137/62 95 02/12/21 14:12 02/12/21 14:12 02/12/21 14:12 02/12/21 14:12 02/12/21 14:12 Results - Lab Results 02/13/21 05:55 02/13/21 05:55 Most recent lab results Calcium 8.7 mg/dL (8.4-10.2) 02/13/21 05:55 Assessment and Plan 1. ESRD: Patient is on maintenance hemodialysis three times a week, MWF schedule. Meds dosage based on GFR. Hemodialysis: 02/13. 2. FEN: Hyperkalemia, HD today. Monitor lytes and volume status. 3. Anemia, POA: 2/2 ESRD and Liver disease. Epogen with HD. PRBC as needed. 4. Encephalopathy, POA: Likely hepatic encephalopathy. Lactulose. Hyperglycemia on admission. Monitor. 5. DM type 2 uncontrolled: SSI. Monitor. 6. Thrombocytopenia, POA: 7. Hypertension: Monitor BP. Adjust meds as appropriate. Subjective: Patient was seen and examined at the bedside. General Appearance: General appearance: well-developed, appears stated age, not in distress HEENT: ATNC, pupils equal Neck: trachea midline Respiratory: ctab Heart: regular, S1S2, no murmur Abdomen: soft, bowel sounds heard, not tender Integumentary: no rash, warm and dry Neurologic: lethargic, non-verbal, not following any command Ext: no edema, R BKA Hemodialysis access: R arm AVF
--- NOTE | 2021-02-13 11:00 | Progress Note ---
Assessment and Plan Assessment and plan: 55 YO Male with ESRD on HD, Noncompliance with outpatient dialysis, Anemia, HBV, Chronic Liver Disease, Cirrhosis complicated by Esophageal Varices, HTN, Debility, DM presents to ED for evaluation. Patient is confused with diminished cognition and is unable to provide detailed history. Patient history taken from EMS staff, ED staff as well as patient family members. Patient family report the patient was "not acting like himself" and found to have worsening confusion over the past 2 days. EMS was notified and upon arrival the patient was found to be in distress and subsequent transported to [facility] for further care and evaluation of the aforementioned symptoms. The patient was seen and evaluated in the emergency department. All lab and imaging studies reviewed. The patient was found to have hepatic encephalopathy complicated by diminished cognition, end-stage renal disease in need of urgent dialysis, as well as uncontrolled diabetes, and acidosis. Nephrology team consulted in ED. 02/13: Patient was recently in the hospital with similar reasons, although at that time was also hypoglycemic, it appears that the patient has not been complaint with HD. Will Consult [employer] Consultant for HD Will start on Lactulose, patient may benefit from NGT as he is lethargic, nursing to re-assess and place if needed and unable to take PO. Adjust insulin management (1) Hepatic encephalopathy Current Visit: No Status: Acute Plan to address problem: Neuro check, seizure precaution, aspiration precaution, fall precautions, continue to monitor. (2) End stage renal disease Current Visit: No Status: Acute Plan to address problem: Nephrology team consulted, strict I's/O, monitor urine output every shift, olivia lysis as per renal team, avoid nephrotoxic agents. (3) Metolic Acidosis Current Visit: Yes Status: Acute Plan to address problem: BMP, repeat BMP in a.m., nephrology team consulted, dialysis as per renal team. (4) Hyponatremia Current Visit: Yes Status: Acute Plan to address problem: BMP, supportive care, repeat BMP in a.m., monitor fluid balance. (5) Hyperammonemia Current Visit: Yes Status: Acute Plan to address problem: Supportive care, repeat ammonia level in a.m. Lactulose x1. (6) diabetes mellitus with hyperglycemia (7) hyperkalemia Expect improvement with dialysis (8) DVT prophylaxis Current Visit: No Status: Acute Plan to address problem: SCD to bilateral lower extremities while in bed History Interval history: Patient seen and examined, remains altered, no respiratory distress noted. Hospitalist Physical - Physical exam Narrative exam: General appearance: Present: mild distress, altered mental status, lethargic - EENT Eyes: Present: PERRL ENT: hearing intact, clear oral mucosa - Neck Neck: Present: supple, normal ROM - Respiratory Respiratory effort: normal Respiratory: bilateral: CTA - Cardiovascular Heart Sounds: Present: S1 & S2. Absent: rub, click - Extremities Extremities: pulses symmetrical, No edema Extremity abnormal: other (Right BKA) Peripheral Pulses: within normal limits - Abdominal General gastrointestinal: Present: soft, non-tender, non-distended, normal bowel sounds Male genitourinary: Present: normal - Integumentary Integumentary: Present: warm and dry, see full skin exam from nursing staff - Musculoskeletal Musculoskeletal: generalized weakness - Psychiatric Psychiatric: no appropriate mood/affect, no intact judgment & insight, no memory intact - Neurologic Neurologic: CNII-XII intact, no focal deficits, moves all extremities, no gait normal - Constitutional Vitals: Temp Pulse Resp BP Pulse Ox 98.3 F 79 16 135/70 99 02/13/21 04:48 02/13/21 04:48 02/12/21 20:59 02/13/21 04:48 02/13/21 08:45 General appearance: Present: mild distress HEART Score - HEART Score Troponin: Troponin T 0.103 ng/mL (0.00-0.029) H* 02/12/21 17:13 Results - Labs CBC & Chem 7: 02/13/21 05:55 02/13/21 05:55 Labs: Laboratory Last Values WBC 5.5 K/mm3 (4.5-11.0) 02/13/21 05:55 RBC 2.31 M/mm3 (3.65-5.03) L 02/13/21 05:55 Hgb 7.5 gm/dl (11.8-15.2) L 02/13/21 05:55 Hct 21.6 % (35.5-45.6) L 02/13/21 05:55 MCV 94 fl (84-94) 02/13/21 05:55 MCH 32 pg (28-32) 02/13/21 05:55 MCHC 35 % (32-34) H 02/13/21 05:55 RDW 14.8 % (13.2-15.2) 02/13/21 05:55 Plt Count 137 K/mm3 (140-440) L 02/13/21 05:55 Lymph % (Auto) 12.2 % (13.4-35.0) L 02/13/21 05:55 Het[place] % (Auto) 8.3 % (0.0-7.3) H 02/13/21 05:55 Eos % (Auto) 1.6 % (0.0-4.3) 02/13/21 05:55 Baso % (Auto) 0.4 % (0.0-1.8) 02/13/21 05:55 Lymph # (Auto) 0.7 K/mm3 (1.2-5.4) L 02/13/21 05:55 Hettinger # (Auto) 0.5 K/mm3 (0.0-0.8) 02/13/21 05:55 Eos # (Auto) 0.1 K/mm3 (0.0-0.4) 02/13/21 05:55 Baso # (Auto) 0.0 K/mm3 (0.0-0.1) 02/13/21 05:55 Seg Neutrophils % 77.5 % (40.0-70.0) H 02/13/21 05:55 Seg Neutrophils # 4.3 K/mm3 (1.8-7.7) 02/13/21 05:55 PT 14.9 Sec. (12.2-14.9) 02/12/21 14:42 INR 1.19 (0.87-1.13) H 02/12/21 14:42 APTT 27.9 Sec. (24.2-36.6) 02/12/21 14:42 Sodium 138 mmol/L (137-145) 02/13/21 05:55 Potassium 5.3 mmol/L (3.6-5.0) H 02/13/21 05:55 Chloride 99.4 mmol/L (98-107) 02/13/21 05:55 Carbon Dioxide 23 mmol/L (22-30) 02/13/21 05:55 Anion Gap 21 mmol/L 02/13/21 05:55 BUN 101 mg/dL (9-20) H 02/13/21 05:55 Creatinine 8.6 mg/dL (0.8-1.3) H 02/13/21 05:55 Estimated GFR 6 ml/min 02/13/21 05:55 BUN/Creatinine Ratio 12 % 02/13/21 05:55 Glucose 264 mg/dL (75-100) H 02/13/21 05:55 POC Glucose 255 mg/dL (70-105) H 02/13/21 07:29 Lactic Acid 2.20 mmol/L (0.7-2.0) H* 02/12/21 14:42 Calcium 8.7 mg/dL (8.4-10.2) 02/13/21 05:55 Total Bilirubin 0.60 mg/dL (0.1-1.2) 02/13/21 05:55 Direct Bilirubin < 0.2 mg/dL (0-0.2) 02/12/21 14:42 Indirect Bilirubin 0.2 mg/dL 02/12/21 14:42 AST 15 units/L (5-40) 02/13/21 05:55 ALT 21 units/L (7-56) 02/13/21 05:55 Alkaline Phosphatase 177 units/L (35-129) H 02/13/21 05:55 Ammonia 212.0 umol/L (25-60) H 02/12/21 14:42 Troponin T 0.103 ng/mL (0.00-0.029) H* 02/12/21 17:13 Total Protein 6.2 g/dL (6.3-8.2) L 02/13/21 05:55 Albumin 2.8 g/dL (3.9-5) L 02/13/21 05:55 Albumin/Globulin Ratio 0.8 % 02/13/21 05:55 Triglycerides 130 mg/dL (2-149) 02/12/21 14:42 Cholesterol 129 mg/dL (50-199) 02/12/21 14:42 LDL Cholesterol Direct 60 mg/dL (50-130) 02/12/21 14:42 HDL Cholesterol 51 mg/dL (40-59) 02/12/21 14:42 Cholesterol/HDL Ratio 2.52 % 02/12/21 14:42 Microbiology: Microbiology 02/12/21 14:42 Peripheral/Venous Blood Culture - Preliminary Culture in Progress 02/12/21 14:50 Peripheral/Venous Blood Culture - Preliminary Culture in Progress Sr/IV: Voiding Method Diaper Active Medications - Current Medications Current Medications: Generic Name Dose Route Start Last Admin Trade Name Freq PRN Reason Stop Dose Admin Acetaminophen 650 mg 02/12/21 17:57 Acetaminophen 325 Mg Tab PO Q4H PRN Pain MILD(1-3)/Fever >100.5/MOLINA Albuterol 2.5 mg 02/12/21 17:57 Albuterol 2.5 Mg/3 Ml Nebu IH Q4HRT PRN Shortness Of Breath Dextrose 50 ml 02/12/21 23:01 Dextrose 50% In Water (25gm) 50 Ml Syringe IV Q30MIN PRN Hypoglycemia Protocol Sodium Chloride 100 mls @ 999 mls/hr 02/13/21 10:18 Nacl 0.9% IV OLIVIA PRN Hypotension Insulin Human Regular 0 units 02/12/21 23:00 02/13/21 08:43 Insulin Regular, Human 100 Units/1 Ml SUB-Q Not Given ACHS LEYLA Protocol Lactulose 20 gm 02/13/21 12:00 Lactulose 20 Gm/30 Ml Oral Liqd PO 02/14/21 06:01 Q6HR LEYLA Ondansetron HCl 4 mg 02/12/21 17:57 Ondansetron 4 Mg/2 Ml Inj IV Q8H PRN Nausea And Vomiting Sodium Chloride 10 ml 02/12/21 22:00 02/12/21 21:31 Sodium Chloride 0.9% 10 Ml Flush Syringe IV 10 ml BID LEYLA Administration Sodium Chloride 10 ml 02/12/21 18:57 Sodium Chloride 0.9% 10 Ml Flush Syringe IV PRN PRN LINE FLUSH Tramadol HCl 50 mg 02/13/21 02:12 Tramadol 50 Mg Tab PO Q6H PRN Pain, Moderate (4-6)
[2021-02-13] MEDS: LACTULOSE 20 GM/30 ML ORAL LIQD PO SCH ×3 (13:09→23:40)
--- NOTE | 2021-02-13 14:43 | Electrocardiograph Report ---
[facility] Test Date: 2021-02-12 Test Time: 14:34:33 Pat Name: WHITNEY ESPOSITO Department: Room: A381 1 Gender: M Physical Education Department Chair: BLAYNE : 1965 Requested By: BRIAN SONG Order Number: [id number] Reading MD: Mary Vaughn Measurements Intervals [place] Rate: 68 P: 51 [place]: 143 QRS: -8 QRSD: 97 T: 18 QT: 434 QTc: 461 Interpretive Statements Sinus rhythm Compared to ECG 01/30/2021 11:22:48 No significant change Electronically Signed On 02-13-2021 14:43:21 EDT by Mary Vaughn
--- NOTE | 2021-02-13 21:27 | XRay Report ---
ABDOMEN 1 VIEW 02/13/2021 8:18 PM INDICATION / CLINICAL INFORMATION: verification of doub houff placement. COMPARISON: 02/12/2021 chest radiograph FINDINGS: TUBES / LINES: Interval placement of weighted gastric tube with tip in the midline upper abdomen like ly in the distal stomach. BOWEL GAS PATTERN: Nonobstructive bowel gas pattern. FREE AIR / EXTRALUMINAL GAS: None. ADDITIONAL FINDINGS: No significant additional findings. IMPRESSION: 1. Weighted gastric tube tip is likely in the distal stomach. Signer Name: Severiano Riuz MD Signed: 02/13/2021 9:22 PM Workstation Name: [id number]
[2021-02-14] MEDS: LACTULOSE 20 GM/30 ML ORAL LIQD PO SCH ×4 (06:20→17:39)
[2021-02-14] MEDS: INSULIN REGULAR, HUMAN 100 UNITS/1 ML SUB-Q SCH ×4 (09:37→22:06)
--- NOTE | 2021-02-14 10:57 | Progress Note ---
Assessment and Plan Assessment and plan: 55 YO Male with ESRD on HD, Noncompliance with outpatient dialysis, Anemia, HBV, Chronic Liver Disease, Cirrhosis complicated by Esophageal Varices, HTN, Debility, DM presents to ED for evaluation. Patient is confused with diminished cognition and is unable to provide detailed history. Patient history taken from EMS staff, ED staff as well as patient family members. Patient family report the patient was "not acting like himself" and found to have worsening confusion over the past 2 days. EMS was notified and upon arrival the patient was found to be in distress and subsequent transported to [facility] for further care and evaluation of the aforementioned symptoms. The patient was seen and evaluated in the emergency department. All lab and imaging studies reviewed. The patient was found to have hepatic encephalopathy complicated by diminished cognition, end-stage renal disease in need of urgent dialysis, as well as uncontrolled diabetes, and acidosis. Nephrology team consulted in ED. 02/13: Patient was recently in the hospital with similar reasons, although at that time was also hypoglycemic, it appears that the patient has not been complaint with HD. Will Consult [employer] Docent for HD Will start on Lactulose, patient may benefit from NGT as he is lethargic, nursing to re-assess and place if needed and unable to take PO. Adjust insulin management 02/14: Continue supportive care, Ammonia level improving, will obtain CT head to ensure no other issues especially since patient refusing to speak. Fall precautions, also will defer to Leather Currier about starting tube feed if patient not tolerating PO. Will adjust insulin therapy for better blood glucose control. Monitor LABS Anticipate discharge in a day ot 2 (1) Hepatic encephalopathy Current Visit: No Status: Acute Plan to address problem: Neuro check, seizure precaution, aspiration precaution, fall precautions, continue to monitor. (2) End stage renal disease Current Visit: No Status: Acute Plan to address problem: Nephrology team consulted, strict I's/O, monitor urine output every shift, dialysis as per renal team, avoid nephrotoxic agents. (3) Metolic Acidosis Current Visit: Yes Status: Acute Plan to address problem: BMP, repeat BMP in a.m., nephrology team consulted, dialysis as per renal team. (4) Hyponatremia Current Visit: Yes Status: Acute Plan to address problem: BMP, supportive care, repeat BMP in a.m., monitor fluid balance. (5) Hyperammonemia Current Visit: Yes Status: Acute Plan to address problem: Supportive care, repeat ammonia level in a.m. Lactulose x1. (6) diabetes mellitus with hyperglycemia (7) hyperkalemia Expect improvement with dialysis (8) Moderate Protein Calorie Malnutrition (9) DVT prophylaxis Current Visit: No Status: Acute Plan to address problem: SCD to bilateral lower extremities while in bed History Interval history: Patient seen and examined, remains altered, no respiratory distress noted. Dobhoff was placed yesterday for lactulose administration. Patient is known to be verbal but again refusing to speak to staff. Hospitalist Physical - Physical exam Narrative exam: General appearance: Present: No distress, altered mental status, lethargic but moves all limbs, although however not speaking to staff - EENT Eyes: Present: PERRL ENT: hearing intact, clear oral mucosa - Neck Neck: Present: supple, normal ROM - Respiratory Respiratory effort: normal Respiratory: bilateral: CTA - Cardiovascular Heart Sounds: Present: S1 & S2. Absent: rub, click - Extremities Extremities: pulses symmetrical, No edema Extremity abnormal: other (Right BKA) Peripheral Pulses: within normal limits - Abdominal General gastrointestinal: Present: soft, non-tender, non-distended, normal bowel sounds Male genitourinary: Present: normal - Integumentary Integumentary: Present: warm and dry, see full skin exam from nursing staff - Musculoskeletal Musculoskeletal: generalized weakness - Psychiatric Psychiatric: no appropriate mood/affect, no intact judgment & insight, no memory intact - Neurologic Neurologic: CNII-XII intact, no focal deficits, moves all extremities, no gait normal - Constitutional Vitals: Temp Pulse Resp BP Pulse Ox 99.4 F 93 H 16 164/67 99 02/14/21 05:00 02/14/21 08:00 02/14/21 05:00 02/14/21 05:00 02/14/21 09:20 General appearance: Present: mild distress HEART Score - HEART Score Troponin: Troponin T 0.103 ng/mL (0.00-0.029) H* 02/12/21 17:13 Results - Labs CBC & Chem 7: 02/13/21 05:55 02/13/21 05:55 Labs: Laboratory Last Values WBC 5.5 K/mm3 (4.5-11.0) 02/13/21 05:55 RBC 2.31 M/mm3 (3.65-5.03) L 02/13/21 05:55 Hgb 7.5 gm/dl (11.8-15.2) L 02/13/21 05:55 Hct 21.6 % (35.5-45.6) L 02/13/21 05:55 MCV 94 fl (84-94) 02/13/21 05:55 MCH 32 pg (28-32) 02/13/21 05:55 MCHC 35 % (32-34) H 02/13/21 05:55 RDW 14.8 % (13.2-15.2) 02/13/21 05:55 Plt Count 137 K/mm3 (140-440) L 02/13/21 05:55 Lymph % (Auto) 12.2 % (13.4-35.0) L 02/13/21 05:55 Dickenson % (Auto) 8.3 % (0.0-7.3) H 02/13/21 05:55 Eos % (Auto) 1.6 % (0.0-4.3) 02/13/21 05:55 Baso % (Auto) 0.4 % (0.0-1.8) 02/13/21 05:55 Lymph # (Auto) 0.7 K/mm3 (1.2-5.4) L 02/13/21 05:55 Dickenson # (Auto) 0.5 K/mm3 (0.0-0.8) 02/13/21 05:55 Eos # (Auto) 0.1 K/mm3 (0.0-0.4) 02/13/21 05:55 Baso # (Auto) 0.0 K/mm3 (0.0-0.1) 02/13/21 05:55 Seg Neutrophils % 77.5 % (40.0-70.0) H 02/13/21 05:55 Seg Neutrophils # 4.3 K/mm3 (1.8-7.7) 02/13/21 05:55 PT 14.9 Sec. (12.2-14.9) 02/12/21 14:42 INR 1.19 (0.87-1.13) H 02/12/21 14:42 APTT 27.9 Sec. (24.2-36.6) 02/12/21 14:42 Sodium 138 mmol/L (137-145) 02/13/21 05:55 Potassium 5.3 mmol/L (3.6-5.0) H 02/13/21 05:55 Chloride 99.4 mmol/L (98-107) 02/13/21 05:55 Carbon Dioxide 23 mmol/L (22-30) 02/13/21 05:55 Anion Gap 21 mmol/L 02/13/21 05:55 BUN 101 mg/dL (9-20) H 02/13/21 05:55 Creatinine 8.6 mg/dL (0.8-1.3) H 02/13/21 05:55 Estimated GFR 6 ml/min 02/13/21 05:55 BUN/Creatinine Ratio 12 % 02/13/21 05:55 Glucose 264 mg/dL (75-100) H 02/13/21 05:55 POC Glucose 254 mg/dL (70-105) H 02/14/21 07:33 Lactic Acid 2.20 mmol/L (0.7-2.0) H* 02/12/21 14:42 Calcium 8.7 mg/dL (8.4-10.2) 02/13/21 05:55 Total Bilirubin 0.60 mg/dL (0.1-1.2) 02/13/21 05:55 Direct Bilirubin < 0.2 mg/dL (0-0.2) 02/12/21 14:42 Indirect Bilirubin 0.2 mg/dL 02/12/21 14:42 AST 15 units/L (5-40) 02/13/21 05:55 ALT 21 units/L (7-56) 02/13/21 05:55 Alkaline Phosphatase 177 units/L (35-129) H 02/13/21 05:55 Ammonia 156.0 umol/L (25-60) H 02/13/21 13:23 Troponin T 0.103 ng/mL (0.00-0.029) H* 02/12/21 17:13 Total Protein 6.2 g/dL (6.3-8.2) L 02/13/21 05:55 Albumin 2.8 g/dL (3.9-5) L 02/13/21 05:55 Albumin/Globulin Ratio 0.8 % 02/13/21 05:55 Triglycerides 130 mg/dL (2-149) 02/12/21 14:42 Cholesterol 129 mg/dL (50-199) 02/12/21 14:42 LDL Cholesterol Direct 60 mg/dL (50-130) 02/12/21 14:42 HDL Cholesterol 51 mg/dL (40-59) 02/12/21 14:42 Cholesterol/HDL Ratio 2.52 % 02/12/21 14:42 Microbiology: Microbiology 02/12/21 14:50 Peripheral/Venous Blood Culture - Preliminary NO GROWTH AFTER 24 HOURS 02/12/21 14:42 Peripheral/Venous Blood Culture - Preliminary NO GROWTH AFTER 24 HOURS Sr/IV: Voiding Method External Female Catheter Active Medications - Current Medications Current Medications: Generic Name Dose Route Start Last Admin Trade Name Freq PRN Reason Stop Dose Admin Acetaminophen 650 mg 02/12/21 17:57 Acetaminophen 325 Mg Tab PO Q4H PRN Pain MILD(1-3)/Fever >100.5/MOLINA Albuterol 2.5 mg 02/12/21 17:57 Albuterol 2.5 Mg/3 Ml Nebu IH Q4HRT PRN Shortness Of Breath Dextrose 50 ml 02/12/21 23:01 Dextrose 50% In Water (25gm) 50 Ml Syringe IV Q30MIN PRN Hypoglycemia Protocol Sodium Chloride 100 mls @ 999 mls/hr 02/13/21 10:18 Nacl 0.9% IV OLIVIA PRN Hypotension Insulin Human Regular 0 units 02/12/21 23:00 02/14/21 09:37 Insulin Regular, Human 100 Units/1 Ml SUB-Q 4 units ACHS LEYLA Administration Protocol Lactulose 20 gm 02/14/21 07:45 02/14/21 09:37 Lactulose 20 Gm/30 Ml Oral Liqd PO 20 gm Q6HR LEYLA Administration Ondansetron HCl 4 mg 02/12/21 17:57 Ondansetron 4 Mg/2 Ml Inj IV Q8H PRN Nausea And Vomiting Sodium Chloride 10 ml 02/12/21 22:00 02/14/21 09:38 Sodium Chloride 0.9% 10 Ml Flush Syringe IV 10 ml BID LEYLA Administration Sodium Chloride 10 ml 02/12/21 18:57 Sodium Chloride 0.9% 10 Ml Flush Syringe IV PRN PRN LINE FLUSH Tramadol HCl 50 mg 02/13/21 02:12 Tramadol 50 Mg Tab PO Q6H PRN Pain, Moderate (4-6) Nutrition/Malnutrition Assess - Dietary Evaluation Nutrition/Malnutrition Findings: Nutrition Notes Start: 02/13/21 12:34 Freq: Status: Active Protocol: Document 02/13/21 12:34 (Rec: 02/13/21 12:43 ALISSA [id number]) Nutrition Notes Need for Assessment generated from: MD Order,baseball glove shaper,MST Initial or Follow up Assessment Current Diagnosis CKD (stage V CKD),Diabetes, Hypertension Other Pertinent Diagnosis on HD, chronic liver disease, corrhosis, esophageal varices, debility Current Diet NPO Labs/Tests K 5.3 BG 264 Pertinent Medications Reviewed Height 5 ft 9 in Weight 77.111 kg [place] Body Weight (kg) 72.72 BMI 25.1 Weight Status Appropriate Subjective/Other Information RN screen for chewing difficulty, MST, and skin risk . Gavino score 17. MD consult for poor oral intakes and ONS. Pt is NPO and waiting OPERATIONS SPECIALIST eval. Pt has no signs of muscle or fat wasting. Burn Absent Trauma Absent Current % PO Negligible Minimum of two criteria No physical signs of malnutrition #1 Nutrition Diagnosis Predicted suboptimal energy intake Etiology debility As Evidenced by Signs and Symptoms pt NPO Is patient on ventilator? No Is Patient Ambulatory and/or Out of Bed No REE-([facility]-confined to bed) 1914.228 Calculation Used for Recommendations [facility] Additional Notes Protein: (0.8-1g/kg) 62-77g Fluid: 1 ml/kcal Nutrition Intervention Change Diet Order: Advance diet or start TF when medically able Nutrition Support: Recommend TF if pt unable to consume PO: Nepro 1.8 at 45 ml/hr Flush 200 ml q4h or per MD Kcal 1,944 Protein (gm) 87 Carbohydrates (gm) 174 Fat (gm) 104 Fluid (mL) 785 Fiber (gm) 0 Goal #1 Diet advancement or TF start Anticipated Discharge Needs: Unable to determine at this time Follow-Up By: 02/15/21 Additional Comments FU for TF start or diet advancement and intakes - Malnutrition Assessment Minimum of two criteria: Yes - Attestation Statement I have reviewed and agreed w/ Malnutrition eval & tx plan: Yes
--- NOTE | 2021-02-14 14:15 | Progress Note ---
Assessment and Plan 1. ESRD: Patient is on maintenance hemodialysis three times a week, MWF schedule. Meds dosage based on GFR. Hemodialysis: 02/13. 2. FEN: Hyperkalemia, s/p HD. Monitor lytes and volume status. 3. Anemia, POA: 2/2 ESRD and Liver disease. Epogen with HD. PRBC as needed. 4. Encephalopathy, POA: Likely hepatic encephalopathy. Lactulose. Hyperglycemia on admission. Monitor. 5. DM type 2 uncontrolled: SSI. Monitor. 6. Thrombocytopenia, POA: 7. Hypertension: Monitor BP. Adjust meds as appropriate. Subjective: Patient was seen and examined at the bedside. General Appearance: General appearance: well-developed, appears stated age, not in distress HEENT: ATNC, pupils equal Neck: trachea midline Respiratory: ctab Heart: regular, S1S2, no murmur Abdomen: soft, bowel sounds heard, not tender Integumentary: no rash, warm and dry Neurologic: more alert, conversing, follows command Ext: no edema, R BKA Hemodialysis access: R arm AVF Subjective Date of service: 02/14/21 Objective - Vital Signs Vital signs: Vital Signs - 12hr 02/14/21 02/14/21 02/14/21 05:00 08:00 09:20 Temperature 99.4 F Pulse Rate 100 H Pulse Rate [ 93 H Apical] Respiratory 16 Rate Blood Pressure 164/67 [Left] O2 Sat by Pulse 97 99 Oximetry 02/14/21 11:05 Temperature 99.9 F H Pulse Rate 99 H Pulse Rate [ Apical] Respiratory 16 Rate Blood Pressure 148/65 [Left] O2 Sat by Pulse 100 Oximetry - Lab 02/15/21 06:03 02/15/21 06:03 Most recent lab results Calcium 8.7 mg/dL (8.4-10.2) 02/13/21 05:55 Medications & Allergies - Medications Allergies/Adverse Reactions: Allergies No Known Allergies Allergy (Verified 02/13/21 09:53) Home Medications: Home Medications Medication Instructions Recorded Confirmed Last Taken Type Insulin Glargine [Lantus VIAL] 30 unit SUB-Q QHS 01/31/21 02/13/21 Unknown History Lispro Insulin [HumaLOG] 0 unit SQ ACHS 01/31/21 02/13/21 Unknown History Insulin Glargine [Lantus VIAL] 26 units SUB-Q BID #20 ml 02/04/21 02/13/21 Unknown Rx Lactulose [Cephulac] 20 gm PO Q8H #30 oral.liqd 02/04/21 02/13/21 Unknown Rx Active Medications: Generic Name Dose Route Start Last Admin Trade Name Freq PRN Reason Stop Dose Admin Acetaminophen 650 mg 02/12/21 17:57 Acetaminophen 325 Mg Tab PO Q4H PRN Pain MILD(1-3)/Fever >100.5/MOLINA Albuterol 2.5 mg 02/12/21 17:57 Albuterol 2.5 Mg/3 Ml Nebu IH Q4HRT PRN Shortness Of Breath Dextrose 50 ml 02/12/21 23:01 Dextrose 50% In Water (25gm) 50 Ml Syringe IV Q30MIN PRN Hypoglycemia Protocol Sodium Chloride 100 mls @ 999 mls/hr 02/13/21 10:18 Nacl 0.9% IV OLIVIA PRN Hypotension Insulin Human Regular 0 units 02/12/21 23:00 02/14/21 13:37 Insulin Regular, Human 100 Units/1 Ml SUB-Q 4 units ACHS LEYLA Administration Protocol Lactulose 20 gm 02/14/21 07:45 02/14/21 13:37 Lactulose 20 Gm/30 Ml Oral Liqd PO 20 gm Q6HR LEYLA Administration Ondansetron HCl 4 mg 02/12/21 17:57 Ondansetron 4 Mg/2 Ml Inj IV Q8H PRN Nausea And Vomiting Sodium Chloride 10 ml 02/12/21 22:00 02/14/21 09:38 Sodium Chloride 0.9% 10 Ml Flush Syringe IV 10 ml BID LEYLA Administration Sodium Chloride 10 ml 02/12/21 18:57 Sodium Chloride 0.9% 10 Ml Flush Syringe IV PRN PRN LINE FLUSH Tramadol HCl 50 mg 02/13/21 02:12 Tramadol 50 Mg Tab PO Q6H PRN Pain, Moderate (4-6)
--- NOTE | 2021-02-14 15:32 | Cat Scan Report ---
CT HEAD WITHOUT CONTRAST INDICATION / CLINICAL INFORMATION: AMS. TECHNIQUE: Axial imaging performed from the skull apex through the skull base without the use of cont rast. Sagittal and coronal reformatted images. All CT scans at this location are performed using CT dose reduction for ALARA by means of automated exposure control. COMPARISON: 01/30/2021 FINDINGS: CEREBRAL PARENCHYMA: No acute parenchymal abnormality is appreciated. Mild chronic ischemic changes i n the white matter are stable. HEMORRHAGE: None. EXTRA-AXIAL SPACES: Normal in size and morphology for the patient's age. VENTRICULAR SYSTEM: Normal in size and morphology for the patient's age. MIDLINE SHIFT OR HERNIATION: None. CEREBELLUM / BRAINSTEM: 5 mm chronic lacunar infarct in the right fiona is again noted. The remainder of the posterior fossa is unremarkable. CALVARIUM: No significant abnormality. ORBITS: Patient is status post left ocular surgery. The right orbital cavity is unremarkable. PARANASAL SINUSES / MASTOID AIR CELLS: Normal as visualized. SOFT TISSUES of HEAD: No significant abnormality. ADDITIONAL FINDINGS: None. IMPRESSION: No acute intracranial abnormality. Chronic findings as described which are unchanged since 01/30/2021. Signer Name: Miguel Banks Jr, MD Signed: 02/14/2021 3:28 PM Workstation Name: [id number]
[2021-02-15] MEDS: LACTULOSE 20 GM/30 ML ORAL LIQD PO SCH ×5 (05:38→23:18)
[2021-02-15 06:28] LABS: Hemoglobin 6.9 gm/dl (11.8-15.2); Mean Corpuscular HGB Conc 35 % (32-34); Mean Corpuscular Volume 94 fl (84-94); Red Blood Count 2.13 M/mm3 (3.65-5.03); Red Cell Distribution Width 14.8 % (13.2-15.2)
[2021-02-15 06:33] LABS: Platelet Count 97 K/mm3 (140-440)
[2021-02-15 06:52] LABS: Albumin 2.9 g/dL (3.9-5); Calcium 8.9 mg/dL (8.4-10.2)
[2021-02-15] MEDS: INSULIN REGULAR, HUMAN 100 UNITS/1 ML SUB-Q SCH ×4 (08:44→23:17)
[2021-02-15] MEDS ORDERED: diphenhydrAMINE 50 MG/ML VIAL IV ONE (11:26)
[2021-02-15] MEDS ORDERED: SODIUM CHLORIDE 0.9% 500 ML 500 ML IV ONE (12:00)
--- NOTE | 2021-02-15 12:06 | Progress Note ---
Assessment and Plan 1. ESRD: Patient is on maintenance hemodialysis three times a week, MWF schedule. Meds dosage based on GFR. Hemodialysis: 02/13, 02/15. 2. FEN: Hyperkalemia, improved. Monitor lytes and volume status. 3. Anemia, POA: 2/2 ESRD and Liver disease. Epogen with HD. PRBC as needed. 4. Encephalopathy, POA: Likely hepatic encephalopathy. Lactulose. Hyperglycemia on admission. Monitor. 5. DM type 2 uncontrolled: SSI. Monitor. 6. Thrombocytopenia, POA: 7. Hypertension: Monitor BP. Adjust meds as appropriate. Subjective: Patient was seen and examined at the bedside. Doing ok. General Appearance: General appearance: well-developed, appears stated age, not in distress HEENT: ATNC, pupils equal Neck: trachea midline Respiratory: ctab Heart: regular, S1S2, no murmur Abdomen: soft, bowel sounds heard, not tender Integumentary: no rash, warm and dry Neurologic: alert, conversing, able to move extremities, slight confusion noted Ext: no edema, R BKA Hemodialysis access: R arm AVF Subjective Date of service: 02/15/21 Objective - Vital Signs Vital signs: Vital Signs - 12hr 02/15/21 02/15/21 02/15/21 02:59 03:59 04:08 Temperature 98.6 F Pulse Rate 87 Respiratory 18 17 18 Rate Blood Pressure 129/61 O2 Sat by Pulse 100 Oximetry 02/15/21 02/15/21 02/15/21 09:00 09:05 09:30 Temperature 98.2 F Pulse Rate 82 77 80 Respiratory 18 Rate Blood Pressure 119/61 110/54 91/54 O2 Sat by Pulse Oximetry 02/15/21 02/15/21 02/15/21 09:45 10:00 10:15 Temperature Pulse Rate 80 79 80 Respiratory Rate Blood Pressure 101/47 92/48 91/45 O2 Sat by Pulse Oximetry 02/15/21 02/15/21 02/15/21 10:30 10:45 11:00 Temperature Pulse Rate 78 78 88 Respiratory Rate Blood Pressure 97/50 103/50 96/36 O2 Sat by Pulse Oximetry 02/15/21 02/15/21 11:15 11:30 Temperature Pulse Rate 80 78 Respiratory Rate Blood Pressure 130/61 109/51 O2 Sat by Pulse Oximetry - Lab 02/15/21 06:03 02/15/21 06:03 Most recent lab results Calcium 8.9 mg/dL (8.4-10.2) 02/15/21 06:03 Medications & Allergies - Medications Allergies/Adverse Reactions: Allergies No Known Allergies Allergy (Verified 02/13/21 09:53) Home Medications: Home Medications Medication Instructions Recorded Confirmed Last Taken Type Insulin Glargine [Lantus VIAL] 30 unit SUB-Q QHS 01/31/21 02/13/21 Unknown History Lispro Insulin [HumaLOG] 0 unit SQ ACHS 01/31/21 02/13/21 Unknown History Insulin Glargine [Lantus VIAL] 26 units SUB-Q BID #20 ml 02/04/21 02/13/21 Unknown Rx Lactulose [Cephulac] 20 gm PO Q8H #30 oral.liqd 02/04/21 02/13/21 Unknown Rx Active Medications: Generic Name Dose Route Start Last Admin Trade Name Freq PRN Reason Stop Dose Admin Acetaminophen 650 mg 02/12/21 17:57 Acetaminophen 325 Mg Tab PO Q4H PRN Pain MILD(1-3)/Fever >100.5/MOLINA Albuterol 2.5 mg 02/12/21 17:57 Albuterol 2.5 Mg/3 Ml Nebu IH Q4HRT PRN Shortness Of Breath Dextrose 50 ml 02/12/21 23:01 Dextrose 50% In Water (25gm) 50 Ml Syringe IV Q30MIN PRN Hypoglycemia Protocol Sodium Chloride 100 mls @ 999 mls/hr 02/13/21 10:18 Nacl 0.9% IV OLIVIA PRN Hypotension Insulin Human Regular 0 units 02/12/21 23:00 02/15/21 08:44 Insulin Regular, Human 100 Units/1 Ml SUB-Q 2 units ACHS LEYLA Administration Protocol Lactulose 20 gm 02/14/21 07:45 02/15/21 05:38 Lactulose 20 Gm/30 Ml Oral Liqd PO 20 gm Q6HR LEYLA Administration Ondansetron HCl 4 mg 02/12/21 17:57 Ondansetron 4 Mg/2 Ml Inj IV Q8H PRN Nausea And Vomiting Sodium Chloride 10 ml 02/12/21 22:00 02/15/21 09:08 Sodium Chloride 0.9% 10 Ml Flush Syringe IV Not Given BID LEYLA Sodium Chloride 10 ml 02/12/21 18:57 Sodium Chloride 0.9% 10 Ml Flush Syringe IV PRN PRN LINE FLUSH Tramadol HCl 50 mg 02/13/21 02:12 02/15/21 02:59 Tramadol 50 Mg Tab PO 50 mg Q6H PRN Administration Pain, Moderate (4-6)
--- NOTE | 2021-02-15 12:45 | Progress Note ---
Assessment and Plan Assessment and plan: 55 YO Male with ESRD on HD, Noncompliance with outpatient dialysis, Anemia, HBV, Chronic Liver Disease, Cirrhosis complicated by Esophageal Varices, HTN, Debility, DM presents to ED for evaluation. Patient is confused with diminished cognition and is unable to provide detailed history. Patient history taken from EMS staff, ED staff as well as patient family members. Patient family report the patient was "not acting like himself" and found to have worsening confusion over the past 2 days. EMS was notified and upon arrival the patient was found to be in distress and subsequent transported to [facility] for further care and evaluation of the aforementioned symptoms. The patient was seen and evaluated in the emergency department. All lab and imaging studies reviewed. The patient was found to have hepatic encephalopathy complicated by diminished cognition, end-stage renal disease in need of urgent dialysis, as well as uncontrolled diabetes, and acidosis. Nephrology team consulted in ED. 02/13: Patient was recently in the hospital with similar reasons, although at that time was also hypoglycemic, it appears that the patient has not been complaint with HD. Will Consult [facility] for HD Will start on Lactulose, patient may benefit from NGT as he is lethargic, nursing to re-assess and place if needed and unable to take PO. Adjust insulin management 02/14: Continue supportive care, Ammonia level improving, will obtain CT head to ensure no other issues especially since patient refusing to speak. Fall precautions, also will defer to Sample Processor about starting tube feed if patient not tolerating PO. Will adjust insulin therapy for better blood glucose control. Monitor LABS Anticipate discharge in a day ot 2 02/15: Noted anemia of chronic disease, will transfuse one unit considering hypotension also. Patient clinically is improving. Anticipate discharge in next 24 hours. He needs to be compliant with his lactulose as this was the turning point considering the hepatic encephalopathy. If hypotension is unresolving will obtain a CT of the abdomen and pelvis. Hyperkalemia is also resolved plan discussed with nursing staff. (1) Hepatic encephalopathy Current Visit: No Status: Acute Plan to address problem: Neuro check, seizure precaution, aspiration precaution, fall precautions, continue to monitor. (2) End stage renal disease Current Visit: No Status: Acute Plan to address problem: Nephrology team consulted, strict I's/O, monitor urine output every shift, dialysis as per renal team, avoid nephrotoxic agents. (3) Metolic Acidosis Current Visit: Yes Status: Acute Plan to address problem: BMP, repeat BMP in a.m., nephrology team consulted, dialysis as per renal team. (4) Hyponatremia Current Visit: Yes Status: Acute Plan to address problem: BMP, supportive care, repeat BMP in a.m., monitor fluid balance. (5) Hyperammonemia Current Visit: Yes Status: Acute Plan to address problem: Supportive care, repeat ammonia level in a.m. Lactulose x1. (6) diabetes mellitus with hyperglycemia (7) hyperkalemia Expect improvement with dialysis (8) Moderate Protein Calorie Malnutrition (9) DVT prophylaxis Current Visit: No Status: Acute Plan to address problem: SCD to bilateral lower extremities while in bed History Interval history: Patient seen and examined, remains altered, no respiratory distress noted. Patient pulled off dubhoff. But now more communicative, taking his medication. bp Low but not symptomatic Hospitalist Physical - Physical exam Narrative exam: General appearance: Present: No distress, altered mental status, lethargic but moves all limbs, a - EENT Eyes: Present: PERRL ENT: hearing intact, clear oral mucosa - Neck Neck: Present: supple, normal ROM - Respiratory Respiratory effort: normal Respiratory: bilateral: CTA - Cardiovascular Heart Sounds: Present: S1 & S2. Absent: rub, click - Extremities Extremities: pulses symmetrical, No edema Extremity abnormal: other (Right BKA) Peripheral Pulses: within normal limits - Abdominal General gastrointestinal: Present: soft, non-tender, non-distended, normal bowel sounds Male genitourinary: Present: normal - Integumentary Integumentary: Present: warm and dry, see full skin exam from nursing staff - Musculoskeletal Musculoskeletal: generalized weakness - Psychiatric Psychiatric: no appropriate mood/affect, no intact judgment & insight, no memory intact - Neurologic Neurologic: CNII-XII intact, no focal deficits, moves all extremities, no gait normal - Constitutional Vitals: Temp Pulse Resp BP Pulse Ox 98.3 F 78 18 129/60 100 02/15/21 12:15 02/15/21 12:15 02/15/21 12:15 02/15/21 12:15 02/15/21 04:08 General appearance: Present: mild distress HEART Score - HEART Score Troponin: Troponin T 0.103 ng/mL (0.00-0.029) H* 02/12/21 17:13 Results - Labs CBC & Chem 7: 02/15/21 06:03 02/15/21 06:03 Labs: Laboratory Last Values WBC 4.2 K/mm3 (4.5-11.0) L 02/15/21 06:03 RBC 2.13 M/mm3 (3.65-5.03) L 02/15/21 06:03 Hgb 6.9 gm/dl (11.8-15.2) L 02/15/21 06:03 Hct 20.0 % (35.5-45.6) L 02/15/21 06:03 MCV 94 fl (84-94) 02/15/21 06:03 MCH 33 pg (28-32) H 02/15/21 06:03 MCHC 35 % (32-34) H 02/15/21 06:03 RDW 14.8 % (13.2-15.2) 02/15/21 06:03 Plt Count 97 K/mm3 (140-440) L 02/15/21 06:03 Lymph % (Auto) 12.2 % (13.4-35.0) L 02/13/21 05:55 [place] % (Auto) 8.3 % (0.0-7.3) H 02/13/21 05:55 Eos % (Auto) 1.6 % (0.0-4.3) 02/13/21 05:55 Baso % (Auto) 0.4 % (0.0-1.8) 02/13/21 05:55 Lymph # (Auto) 0.7 K/mm3 (1.2-5.4) L 02/13/21 05:55 [place] # (Auto) 0.5 K/mm3 (0.0-0.8) 02/13/21 05:55 Eos # (Auto) 0.1 K/mm3 (0.0-0.4) 02/13/21 05:55 Baso # (Auto) 0.0 K/mm3 (0.0-0.1) 02/13/21 05:55 Seg Neutrophils % 77.5 % (40.0-70.0) H 02/13/21 05:55 Seg Neutrophils # 4.3 K/mm3 (1.8-7.7) 02/13/21 05:55 PT 14.9 Sec. (12.2-14.9) 02/12/21 14:42 INR 1.19 (0.87-1.13) H 02/12/21 14:42 APTT 27.9 Sec. (24.2-36.6) 02/12/21 14:42 Sodium 137 mmol/L (137-145) 02/15/21 06:03 Potassium 4.4 mmol/L (3.6-5.0) 02/15/21 06:03 Chloride 97.1 mmol/L (98-107) L 02/15/21 06:03 Carbon Dioxide 29 mmol/L (22-30) 02/15/21 06:03 Anion Gap 15 mmol/L 02/15/21 06:03 BUN 67 mg/dL (9-20) H 02/15/21 06:03 Creatinine 7.6 mg/dL (0.8-1.3) H 02/15/21 06:03 Estimated GFR 7 ml/min 02/15/21 06:03 BUN/Creatinine Ratio 9 % 02/15/21 06:03 Glucose 196 mg/dL (75-100) H 02/15/21 06:03 POC Glucose 195 mg/dL (70-105) H 02/15/21 07:59 Lactic Acid 2.20 mmol/L (0.7-2.0) H* 02/12/21 14:42 Calcium 8.9 mg/dL (8.4-10.2) 02/15/21 06:03 Total Bilirubin 0.70 mg/dL (0.1-1.2) 02/15/21 06:03 Direct Bilirubin < 0.2 mg/dL (0-0.2) 02/12/21 14:42 Indirect Bilirubin 0.2 mg/dL 02/12/21 14:42 AST 22 units/L (5-40) 02/15/21 06:03 ALT 18 units/L (7-56) 02/15/21 06:03 Alkaline Phosphatase 155 units/L (35-129) H 02/15/21 06:03 Ammonia 156.0 umol/L (25-60) H 02/13/21 13:23 Troponin T 0.103 ng/mL (0.00-0.029) H* 02/12/21 17:13 Total Protein 6.0 g/dL (6.3-8.2) L 02/15/21 06:03 Albumin 2.9 g/dL (3.9-5) L 02/15/21 06:03 Albumin/Globulin Ratio 0.9 % 02/15/21 06:03 Triglycerides 130 mg/dL (2-149) 02/12/21 14:42 Cholesterol 129 mg/dL (50-199) 02/12/21 14:42 LDL Cholesterol Direct 60 mg/dL (50-130) 02/12/21 14:42 HDL Cholesterol 51 mg/dL (40-59) 02/12/21 14:42 Cholesterol/HDL Ratio 2.52 % 02/12/21 14:42 Microbiology: Microbiology 02/12/21 14:42 Peripheral/Venous Blood Culture - Preliminary NO GROWTH AFTER 48 HOURS 02/12/21 14:50 Peripheral/Venous Blood Culture - Preliminary NO GROWTH AFTER 48 HOURS Sr/IV: Voiding Method Incontinent Active Medications - Current Medications Current Medications: Generic Name Dose Route Start Last Admin Trade Name Freq PRN Reason Stop Dose Admin Acetaminophen 650 mg 02/12/21 17:57 Acetaminophen 325 Mg Tab PO Q4H PRN Pain MILD(1-3)/Fever >100.5/MOLINA Albuterol 2.5 mg 02/12/21 17:57 Albuterol 2.5 Mg/3 Ml Nebu IH Q4HRT PRN Shortness Of Breath Dextrose 50 ml 02/12/21 23:01 Dextrose 50% In Water (25gm) 50 Ml Syringe IV Q30MIN PRN Hypoglycemia Protocol Sodium Chloride 100 mls @ 999 mls/hr 02/13/21 10:18 Nacl 0.9% IV OLIVIA PRN Hypotension Insulin Human Regular 0 units 02/12/21 23:00 02/15/21 12:22 Insulin Regular, Human 100 Units/1 Ml SUB-Q Not Given ACHS [facility] Protocol Lactulose 20 gm 02/14/21 07:45 02/15/21 12:26 Lactulose 20 Gm/30 Ml Oral Liqd PO Not Given Q6HR [facility] Ondansetron HCl 4 mg 02/12/21 17:57 Ondansetron 4 Mg/2 Ml Inj IV Q8H PRN Nausea And Vomiting Sodium Chloride 10 ml 02/12/21 22:00 02/15/21 09:08 Sodium Chloride 0.9% 10 Ml Flush Syringe IV Not Given BID LEYLA Sodium Chloride 10 ml 02/12/21 18:57 Sodium Chloride 0.9% 10 Ml Flush Syringe IV PRN PRN LINE FLUSH Tramadol HCl 50 mg 02/13/21 02:12 02/15/21 02:59 Tramadol 50 Mg Tab PO 50 mg Q6H PRN Administration Pain, Moderate (4-6) Nutrition/Malnutrition Assess - Dietary Evaluation Nutrition/Malnutrition Findings: Nutrition Notes Start: 02/13/21 12:34 Freq: Status: Active Protocol: Document 02/15/21 09:06 CW (Rec: 02/15/21 09:13 CW [id number]) Nutrition Notes Need for Assessment generated from: MD 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 Swallow evaluation completed. Pt able to tolerate regular consistency diet. PO intake has been excellent. Burn Absent Trauma Absent Current % PO Good (75-100%) Minimum of two criteria No physical signs of malnutrition #1 Nutrition Diagnosis Predicted suboptimal energy intake As Evidenced by Signs and Symptoms Pt eating 100% of meals Diagnosis Progress(for reassessment Resolved documentation) Is patient on ventilator? No Is Patient Ambulatory and/or Out of Bed No REE-([facility]-confined to bed) [phone] Calculation Used for Recommendations [facility] Additional Notes Protein: (0.8-1g/kg) 62-77g Fluid: 1 ml/kcal Nutrition Intervention Change Diet Order: Change diet to Consistent Carbohydrate Renal diet Goal #1 Meet at least 75% of kcal adn protein needs via PO Anticipated Discharge Needs: Renal Consistent Carbohydrate Diet Follow-Up By: 02/19/21 Additional Comments F/U stable intakes
[2021-02-15] MEDS ORDERED: SODIUM CHLORIDE 0.9% 500 ML 500 ML ONE (15:13)
[2021-02-16] MEDS: LACTULOSE 20 GM/30 ML ORAL LIQD PO SCH ×2 (05:23→13:00)
[2021-02-16] MEDS: INSULIN REGULAR, HUMAN 100 UNITS/1 ML SUB-Q SCH ×2 (07:30→11:30)
--- NOTE | 2021-02-16 08:52 | Progress Note ---
Assessment and Plan 1. ESRD: Patient is on maintenance hemodialysis three times a week, MWF schedule. Meds dosage based on GFR. Hemodialysis: 02/13, 02/15. 2. FEN: Hyperkalemia, improved. Monitor lytes and volume status. 3. Anemia, POA: 2/2 ESRD and Liver disease. Epogen with HD. PRBC as needed. 4. Encephalopathy, POA: Likely hepatic encephalopathy. Lactulose. Hyperglycemia on admission. Monitor. 5. DM type 2 uncontrolled: SSI. Monitor. 6. Thrombocytopenia, POA: 7. Hypertension: Monitor BP. Adjust meds as appropriate. Subjective: Patient was seen and examined at the bedside. Doing ok. General Appearance: General appearance: well-developed, appears stated age, not in distress HEENT: ATNC, pupils equal Neck: trachea midline Respiratory: ctab Heart: regular, S1S2, no murmur Abdomen: soft, bowel sounds heard, not tender Integumentary: no rash, warm and dry Neurologic: alert, conversing, able to move extremities, slight confusion noted Ext: no edema, R BKA Hemodialysis access: R arm AVF Subjective Date of service: 02/16/21 Objective - Vital Signs Vital signs: Vital Signs - 12hr 02/15/21 02/16/21 22:15 04:21 Temperature 98.9 F 98.6 F Pulse Rate 90 Respiratory 18 18 Rate Blood Pressure 129/57 139/64 O2 Sat by Pulse 99 Oximetry - Lab 02/16/21 10:51 02/15/21 06:03 Most recent lab results Calcium 8.9 mg/dL (8.4-10.2) 02/15/21 06:03 Medications & Allergies - Medications Allergies/Adverse Reactions: Allergies No Known Allergies Allergy (Verified 02/16/21 18:26) Home Medications: Home Medications Medication Instructions Recorded Confirmed Last Taken Type Insulin Glargine [Lantus VIAL] 30 unit SUB-Q QHS 01/31/21 02/13/21 Unknown History Lispro Insulin [HumaLOG] 0 unit SQ ACHS 01/31/21 02/13/21 Unknown History Insulin Glargine [Lantus VIAL] 26 units SUB-Q BID #20 ml 02/04/21 02/13/21 Unknown Rx Lactulose [Cephulac] 20 gm PO Q8H 30 Days oral.liqd 02/16/21 Unknown Rx Clindamycin [Clindamycin CAP] 300 mg PO Q6H #27 capsule 02/17/21 Unknown Rx Active Medications: Generic Name Dose Route Start Last Admin Trade Name Freq PRN Reason Stop Dose Admin Acetaminophen 650 mg 02/12/21 17:57 Acetaminophen 325 Mg Tab PO Q4H PRN Pain MILD(1-3)/Fever >100.5/MOLINA Albuterol 2.5 mg 02/12/21 17:57 Albuterol 2.5 Mg/3 Ml Nebu IH Q4HRT PRN Shortness Of Breath Dextrose 50 ml 02/12/21 23:01 Dextrose 50% In Water (25gm) 50 Ml Syringe IV Q30MIN PRN Hypoglycemia Protocol Sodium Chloride 100 mls @ 999 mls/hr 02/13/21 10:18 Nacl 0.9% IV OLIVIA PRN Hypotension Insulin Human Regular 0 units 02/12/21 23:00 02/15/21 23:17 Insulin Regular, Human 100 Units/1 Ml SUB-Q 8 units ACHS LEYLA Administration Protocol Lactulose 20 gm 02/14/21 07:45 02/16/21 05:23 Lactulose 20 Gm/30 Ml Oral Liqd PO 20 gm Q6HR LEYLA Administration Ondansetron HCl 4 mg 02/12/21 17:57 Ondansetron 4 Mg/2 Ml Inj IV Q8H PRN Nausea And Vomiting Sodium Chloride 10 ml 02/12/21 22:00 02/15/21 21:32 Sodium Chloride 0.9% 10 Ml Flush Syringe IV 10 ml BID LEYLA Administration Sodium Chloride 10 ml 02/12/21 18:57 Sodium Chloride 0.9% 10 Ml Flush Syringe IV PRN PRN LINE FLUSH Tramadol HCl 50 mg 02/13/21 02:12 02/15/21 02:59 Tramadol 50 Mg Tab PO 50 mg Q6H PRN Administration Pain, Moderate (4-6)
[2021-02-16] MEDS ORDERED: INSULIN REGULAR, HUMAN 100 UNITS/1 ML SUB-Q ONE (10:01)
--- NOTE | 2021-02-16 10:14 | Discharge Summary ---
Providers - Providers Date of Admission: 02/12/21 17:57 Attending physician: RONNIE PIERRE MD 02/13/21 02:10 Consult to Dietitian/Nutrition [CONS] Routine Physician Instructions: Reason For Exam: Reason for Consult: Poor oral intake 02/13/21 02:11 Speech Therapy Evaluation and Treat [CONS] Routine Reason For Exam: speech evaluation 02/13/21 08:44 Consult to Physician [CONS] Routine Comment: Consulting Provider: MOLLY TOVAR Physician Instructions: Reason For Exam: esrd 02/13/21 09:14 Physical Therapy Evaluation and Treat [CONS] Routine Comment: Reason For Exam: weakness 02/13/21 09:16 Occupational Therapy Evaluate and Treat [CONS] Routine Comment: Reason For Exam: weakness 02/14/21 11:00 Speech Therapy Evaluation and Treat [CONS] Routine Reason For Exam: swallow eval 02/15/21 03:36 Consult to Wound/ET Nurse [CONS] Routine Reason For Exam: wound eval 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 Patient is confused with diminished cognition and is unable to provide detailed history. Patient history taken from EMS staff, ED staff as well as patient family members. Patient family report the patient was "not acting like himself" and found to have worsening confusion over the past 2 days. EMS was notified and upon arrival the patient was found to be in distress and subsequent transported to [facility] for further care and evaluation of the aforementioned symptoms. The patient was seen and evaluated in the emergency de partment. All lab and imaging studies reviewed. The patient was found to have hepatic encephalopathy complicated by diminished cognition, end-stage renal disease in need of urgent dialysis, as well as uncontrolled diabetes, and acidosis. Nephrology team consulted in ED. 02/13: Patient was recently in the hospital with similar reasons, although at that time was also hypoglycemic, it appears that the patient has not been complaint with HD. Will Consult Business Performance Specialist for HD Will start on Lactulose, patient may benefit from NGT as he is lethargic, nursing to re-assess and place if needed and unable to take PO. Adjust insulin management 5/27: Continue supportive care, Ammonia level improving, will obtain CT head to ensure no other issues especially since patient refusing to speak. Fall p recautions, also will defer to Baby Counselor about starting tube feed if patient not tolerating PO. Will adjust insulin therapy for better blood glucose control. Monitor LABS Anticipate discharge in a day ot 2 02/15: Noted anemia of chronic disease, will transfuse one unit considering hypotension also. Patient clinically is improving. Anticipate discharge in next 24 hours. He needs to be compliant with his lactulose as this was the turning point considering the hepatic encephalopathy. If hypotension is unresolving will obtain a CT of the abdomen and pelvis. Hyperkalemia is also resolved plan discussed with nursing staff. 02/16: Patient clinically stable today mental status is improved we did have extensive discussion about his medical condition and the need to be compliant with the lactulose he states that he was not taking the lactulose because the staff at the facility where he is at would not clean him up. He also has a sacral wound which is being monitored. Considering that he was not having significant diarrhea on the lactulose he is now agreeable to he will take it. His blood pressure was low yesterday but this was during dialysis and is improved. I do not think that this inconsiderate to consider palliative care for him due to his chronic liver disease. Will defer to case management and outpatient discussion with the patient. Otherwise will plan proceed with dis charge and continued on dialysis outpatient. (1) Hepatic encephalopathy Current Visit: No Status: Acute Plan to address problem: Neuro check, seizure precaution, aspiration precaution, fall precautions, continue to monitor. (2) End stage renal disease Current Visit: No Status: Acute Plan to address problem: Nephrology team consulted, strict I's/O, monitor urine output every shift, dialysis as per renal team, avoid nephrotoxic agents. (3) Metabolic Acidosis Current Visit: Yes Status: Acute Plan to address problem: BMP, repeat BMP in a.m., nephrology team consulted, dialysis as per renal team. (4) Hyponatremia Current Visit: Yes Status: Acute Plan to address problem: BMP, supportive care, repeat BMP in a.m., monitor fluid balance. (5) Hyperammonemia Current Visit: Yes Status: Acute Plan to address problem: Supportive care, repeat ammonia level in a.m. Lactulose x1. (6) diabetes mellitus with hyperglycemia (7) hyperkalemia Expect improvement with dialysis (8) sacral wound (9) Moderate Protein Calorie Malnutrition Disposition: DC/TX-06 HOME UNDER HOME HLTH Final Discharge Diagnosis (Prints w/discharge instructions): hepatic hepatic Time spent for discharge: 35 mins Core Measure Documentation - Palliative Care Palliative Care/ Comfort Measures: Palliative Care/Comfort Measures - Core Measures Any of the following diagnoses?: none Exam - Physical Exam Narrative exam: General appearance: Present: No distress, altered mental status, lethargic but moves all limbs, a - EENT Eyes: Present: PERRL ENT: hearing intact, clear oral mucosa - Neck Neck: Present: supple, normal ROM - Respiratory Respiratory effort: normal Respiratory: bilateral: CTA - Cardiovascular Heart Sounds: Present: S1 & S2. Absent: rub, click - Extremities Extremities: pulses symmetrical, No edema Extremity abnormal: other (Right BKA) Peripheral Pulses: within normal limits - Abdominal General gastrointestinal: Present: soft, non-tender, non-distended, normal bowel sounds Male genitourinary: Present: normal - Integumentary Integumentary: Present: warm and dry, see full skin exam from nursing staff - Musculoskeletal Musculoskeletal: generalized weakness - Psychiatric Psychiatric: no appropriate mood/affect, no intact judgment & insight, no memory intact - Neurologic Neurologic: CNII-XII intact, no focal deficits, moves all extremities, no gait normal - Constitutional Vitals: Temp Pulse Resp BP Pulse Ox 98.6 F 90 18 139/64 99 02/16/21 04:21 02/15/21 22:15 02/16/21 04:21 02/16/21 04:21 02/15/21 22:15 Plan Activity: advance as tolerated, fall precautions Diet: low fat Special Instructions: record daily weights, record daily BP diary, physical therapy, occupational therapy, home health RN Durable Medical Equipment Needed Upon Discharge: Bedside Commode Additional Instructions: Patient must be compliant with lactulose and must continue with dialysis unless he wishes to be hospice. Follow up with: PRIMARY CAREMD [Primary Care Provider] - 3-5 Days MOLLY TOVAR MD [Staff Physician] - 7 Days Prescriptions: Lactulose [Cephulac] 20 gm PO Q8H 30 Days oral.liqd
[2021-02-16 11:10] LABS: Basophils % (Auto) 0.7 % (0.0-1.8); Eosinophils # (Auto) 0.1 K/mm3 (0.0-0.4); Eosinophils % (Auto) 2.5 % (0.0-4.3); Hematocrit 22.2 % (35.5-45.6); Hemoglobin 7.7 gm/dl (11.8-15.2); Lymphocytes # (Auto) 0.5 K/mm3 (1.2-5.4); Lymphocytes % (Auto) 10.6 % (13.4-35.0); Mean Corpuscular HGB Conc 35 % (32-34); Mean Corpuscular Volume 94 fl (84-94); Monocytes # (Auto) 0.5 K/mm3 (0.0-0.8); Monocytes % (Auto) 10.6 % (0.0-7.3); Red Blood Count 2.36 M/mm3 (3.65-5.03); Red Cell Distribution Width 14.8 % (13.2-15.2)
[2021-02-16 11:14] LABS: Platelet Count 76 K/mm3 (140-440)
[2021-02-16 16:48] VITALS: BP 126/62
== END 2021-02-16 17:04 | disposition hospice, inpatient (51) | DRG 441 ==
LOC: ED 14:05 → 3A 17:57
PROVIDERS: ADMIT Internal Medicine; ATTEND Internal Medicine
PROC: 5A1D70Z Performance of Urinary Filtration, Intermittent, Less than 6 Hours Per Day (ICD-10-PCS; 2021-02-13)
PROC: 30233N1 Transfusion of Nonautologous Red Blood Cells into Peripheral Vein, Percutaneous Approach (ICD-10-PCS; principal; 2021-02-15)
PROC: 5A1D70Z Performance of Urinary Filtration, Intermittent, Less than 6 Hours Per Day (ICD-10-PCS; 2021-02-15)
DX: K72.00 Acute and subacute hepatic failure without coma (principal); N18.6 End stage renal disease; E87.2 Acidosis; E72.20 Disorder of urea cycle metabolism, unspecified; E87.1 Hypo-osmolality and hyponatremia; E44.0 Moderate protein-calorie malnutrition; E11.65 Type 2 diabetes mellitus with hyperglycemia; I12.0 Hypertensive chronic kidney disease with stage 5 chronic kidney disease or end stage renal disease; Z20.822 Contact with and (suspected) exposure to COVID-19; E11.22 Type 2 diabetes mellitus with diabetic chronic kidney disease; K76.9 Liver disease, unspecified; E87.5 Hyperkalemia; D64.9 Anemia, unspecified; D69.6 Thrombocytopenia, unspecified; S31.000A Unspecified open wound of lower back and pelvis without penetration into retroperitoneum, initial encounter; Y93.89 Activity, other specified; Z68.25 Body mass index [BMI] 25.0-25.9, adult; Z99.2 Dependence on renal dialysis; Z89.511 Acquired absence of right leg below knee; Z82.49 Family history of ischemic heart disease and other diseases of the circulatory system; Z79.4 Long term (current) use of insulin; Z79.899 Other long term (current) drug therapy; Y99.8 Other external cause status; Y92.89 Other specified places as the place of occurrence of the external cause
CPT/HCPCS: 36415; 70450; 71045; 74018; 80048; 80053; 80061; 80076; 80320; 81001; 82140; 82550; 82962; 83735; 84443; 84484; 85025; 85027; 85610; 85730; 86850; 86900; 86901; 86920; 87040; 87086; 93005; 96374; G0378; G0480; J0885; J1200; J1644; J1815; J7040; P9016; U0003

== ENCOUNTER 2021-02-16 17:47 | Inpatient (IN) | payer MEDICAID ==
--- NOTE | 2021-02-17 02:42 | Emergency Department Report ---
<BRIAN SONG - Last Filed: 02/18/21 09:43> ED General Adult HPI - General Chief complaint: Medical Clearance Stated complaint: CASE MANAGEMENT Time Seen by Provider: 02/17/21 00:28 - Related Data Home Medications Medication Instructions Recorded Confirmed Last Taken Insulin Glargine [Lantus VIAL] 30 unit SUB-Q QHS 01/31/21 02/13/21 Unknown Lispro Insulin [HumaLOG] 0 unit SQ ACHS 01/31/21 02/13/21 Unknown Previous Rx's Medication Instructions Recorded Last Taken Type Insulin Glargine [Lantus VIAL] 26 units SUB-Q BID #20 ml 02/04/21 Unknown Rx Lactulose [Cephulac] 20 gm PO Q8H 30 Days oral.liqd 02/16/21 Unknown Rx Clindamycin [Clindamycin CAP] 300 mg PO Q6H #27 capsule 02/17/21 Unknown Rx Allergies Allergy/AdvReac Type Severity Reaction Status Date / Time No Known Allergies Allergy Verified 02/16/21 18:26 ED Past Medical Hx - Medications Home Medications: Home Medications Medication Instructions Recorded Confirmed Last Taken Type Insulin Glargine [Lantus VIAL] 30 unit SUB-Q QHS 01/31/21 02/13/21 Unknown History Lispro Insulin [HumaLOG] 0 unit SQ ACHS 01/31/21 02/13/21 Unknown History Insulin Glargine [Lantus VIAL] 26 units SUB-Q BID #20 ml 02/04/21 02/13/21 Unknown Rx Lactulose [Cephulac] 20 gm PO Q8H 30 Days oral.liqd 02/16/21 Unknown Rx Clindamycin [Clindamycin CAP] 300 mg PO Q6H #27 capsule 02/17/21 Unknown Rx ED Course - Reevaluation(s) Reevaluation #2: 02/18/21 09:44 Mr. Garcia is a 55-year-old male with history of end-stage renal disease on hemodialysis. Patient is waiting for placement. Case management involved. Patient is asymptomatic at this moment. I reviewed his vital sign stable with an oxygen saturation of 100% and a normal blood pressure. Patient denied any shortness of breath. Labs reviewed and showed a potassium of 4.2. BUN and creatinine slightly elevated from previous number however patient is not in need for emergency dialysis now. We will continue to monitor. ED Medical Decision Making - Lab Data Result diagrams: 02/17/21 02:24 02/18/21 06:46 ED Disposition Clinical Impression: Anemia, Chronic liver disease and cirrhosis, Hyperglycemia, Case management patient, Induration of skin, Amputation of right lower extremity below knee, Acidosis, End-stage renal disease needing dialysis, Azotemia Disposition: OP ADMIT IP TO THIS HOSP Condition: Good Prescriptions: Clindamycin [Clindamycin CAP] 300 mg PO Q6H #27 capsule Referrals: PRIMARY CARE, [Primary Care Provider] - 3-5 Days <TORRESGAY - Last Filed: 02/18/21 22:25> ED General Adult HPI - General PUI?: No Source: patient, EMS ( EMS documentation not available at time of chart dictation ), RN notes reviewed, old records reviewed Mode of arrival: Ambulatory Limitations: Physical Limitation - History of Present Illness Initial comments: The patient was evaluated in the emergency department for symptoms described in the history of present illness. He/she was evaluated in the context of the global COVID-19 pandemic, which necessitated consideration that the patient might be at risk for infection with the virus that causes COVID-19. Institutional protocols and algorithms that pertain to the evaluation of patients at risk for COVID-19 are in a state of rapid change based on information released by regulatory bodies including the CDC and federal and state organizations. These policies and algorithms were followed during the patient's care in the emergency department. Please note that these policies, procedures and recommendations changed on a rapid basis. The patient is a 55-year-old gentleman. His past medical history includes end-stage renal disease on hemodialysis, noncompliance with outpatient dialysis, anemia, hepatitis B, chronic liver disease, cirrhosis, esophageal varices, hypertension, debility, diabetes. Also has a history of left lower extremity below-knee amputation, distant past, as well as chronic sacral wound. I admitted this patient to the [facility] January 30 for hepatic encephalopathy, hypoglycemia, and hypothermia. The patient was discharged, and subsequently readmitted. As per review of recent discharge summary, patient was found to be clinically stable on February 16, with improving mental status. It appears that extensive discussion about his medical conditions and need to be compliant with lactulose was had with the patient, patient indicated he did not want to take lactulose because staff at facility would not clean him up. He is also found to have a sacral wound. Case management also saw and evaluated this patient. As per case management documentation from February 16, 2021, patient had been accepted to [facility] hosp[facility] program. In addition, case management received a call from a Mr. Trivedi; [phone], who had advised case management that he would receive patient back at his [facility] prison. However, at that point time, it appeared that the patient was refusing transportation, and had signed himself back into the hospital. To me, the patient presents to the ER with a complaint of request for case management. The patient denies headache, neck pain, chest pain, abdominal pain or shortness of breath. He indicates that he is hungry. He is not homicidal suicidal. He knows the month, date, and location. He denies dysuria. He states he is due for hemodialysis this Thursday. -: This evening Consistency: constant Improves with: none Worsens with: none ED Review of Systems ROS: Stated complaint: CASE MANAGEMENT Other details as noted in HPI Constitutional: malaise (Chronic malaise and weakness). denies: fever Eyes: denies: eye discharge Respiratory: denies: cough Cardiovascular: denies: chest pain Gastrointestinal: other (Patient states he is hungry). denies: abdominal pain Genitourinary: denies: dysuria Skin: lesions (Testicular lesion) Neurological: weakness ED Past Medical Hx - Past Medical History Hx Hypertension: Yes Hx Congestive Heart Failure: No Hx Diabetes: Yes Hx Renal Disease: Yes Hx Asthma: No Hx COPD: No - Surgical History Additional Surgical History: RBKA - Social History Smoking Status: Former Smoker ED Physical Exam - General Limitations: Physical Limitation, Other (Chaperoned by fishing guide Charmaine angulo) General appearance: alert, in no apparent distress - Head Head exam: Present: atraumatic, normocephalic - Eye Eye exam: Present: normal appearance, EOMI. Absent: nystagmus - ENT ENT exam: Present: normal exam, normal orophraynx, mucous membranes moist, normal external ear exam - Neck Neck exam: Present: normal inspection, full ROM. Absent: tenderness, meningismus - Respiratory Respiratory exam: Present: normal lung sounds bilaterally. Absent: respiratory distress, wheezes, rales, rhonchi, stridor, decreased breath sounds - Cardiovascular Cardiovascular Exam: Present: regular rate, normal rhythm, normal heart sounds. Absent: bradycardia, tachycardia, irregular rhythm, systolic murmur, diastolic murmur, rubs, gallop - GI/Abdominal GI/Abdominal exam: Present: soft, distended. Absent: tenderness, guarding, rebound, rigid, pulsatile mass - Rectal Rectal exam: Present: normal inspection (There is a chronic appearing sacral wound and skin avulsion. There is no redness, pus or streaking), other (Chaperoned by Charmaine Barrett) - exam: Present: other (There is no testicular tenderness. There is normal testicular lie bilaterally. In the mid scrotum, midline, there is a small area of induration, that is draining minimal pus.) - Extremities Exam Extremities exam: Present: normal inspection (Status post right lower extremity below-knee amputation), other (2+ pulses noted in the bilateral upper extremity, and left lower extremity. There is a right upper extremity fistula, without redness, pus or streaking. There is ecchymosis over the right arm fistula.) - Back Exam Back exam: Present: normal inspection. Absent: tenderness, CVA tenderness (R), paraspinal tenderness, vertebral tenderness - Neurological Exam Neurological exam: Present: alert, other (No facial droop. Tongue midline. Extraocular movements intact bilaterally. Facial sensation intact to light touch in V1, V2, V3 distribution bilaterally. 5 and a 5 strength in 4 extremities. Sensation intact to light touch in 4 extremities.) - Psychiatric Psychiatric exam: Present: flat affect - Skin Skin exam: Present: warm, dry, intact, normal color, abrasion. Absent: rash ED Course Vital Signs 02/16/21 02/17/21 02/17/21 18:26 06:25 12:10 Temperature 98.8 F 98.3 F 98.7 F Pulse Rate 94 H 100 H 89 Respiratory 14 18 18 Rate Blood Pressure 127/56 148/75 128/66 [Right] O2 Sat by Pulse 97 98 99 Oximetry 02/17/21 02/18/21 02/18/21 19:35 02:00 08:24 Temperature 98.2 F 97.9 F 98.5 F Pulse Rate 90 88 89 Respiratory 19 16 17 Rate Blood Pressure 125/52 136/72 116/50 [Right] O2 Sat by Pulse 100 100 100 Oximetry 02/18/21 21:00 Temperature 98.4 F Pulse Rate 85 Respiratory 18 Rate Blood Pressure 137/67 [Right] O2 Sat by Pulse 100 Oximetry - Reevaluation(s) Reevaluation #1: 02/17/21 04:31 Differential diagnosis, including but not limited to: Case management patient, chronic anemia, chronic hepatitis, end-stage renal disease, cellulitis with abscess draining Assessment and plan: 55-year-old gentleman, who is currently awake, alert, oriented, sober, without asterxis, not in clinical hepatic encephalopathy at this time, presenting essentially with request for case management evaluation. Laboratory studies appear to be at baseline, with the exception of hype rglycemia. Start sliding scale insulin. Give insulin bolus in the emergency room. He has a superficial area of cellulitis and induration on the mid superior scrotum, which is already draining. This is about 0.5 x 0.5 cm. There is no testicular tenderness. This does not appear to involve the deep tissues of the genitals, it appears to be superficial, therefore, warm compresses, antibiotics, and supportive care. Start warm compresses and clindamycin. Continue home medications. Request case management evaluation. EKG pending at this time. Assuming hypoglycemia improves, which to anticipate, patient medically suitable at this time for case management disposition. 02/17/21 05:08 [facility] to follow-up on urinalysis, repeat Accu-Chek, and case management recommendations. 02/18/21 05:07 Patient resting comfortably in stretcher, and in no acute distress. Case management arrangement for final disposition is pending. Repeat basic metabolic panel last night did not demonstrate need for emergent or urgent hemodialysis. Patient continues to have issues with hyperglycemia, repeat insulin as ordered. Repeat basic metabolic panel ordered for 6:45 AM draw. [facility] to follow-up on repeat basic metabolic panel. Patient is saturating well at this time, and in no acute respiratory distress. Reevaluation #2: 02/18/21 22:23 Patient has been here for a few days, and laboratory studies are progressively worsening, today, he has recurrent hyperglycemia, pseudohyponatremia, anion gap acidosis, azotemia and uremia. I contacted nephrology on-call, Dr. Nadia Pool, I discussed the patient's history, physical, pertinent laboratory studies and current presentation. We are both in agreement that admission would be acceptable and recommended for urgent hemodialysis, as well as glycemic optimization, in addition to inpatient case management optimization. Hospital physician, Dr. Blanca to admit to [facility] ED Medical Decision Making - Lab Data Result diagrams: 02/17/21 02:24 02/18/21 21:14 Vital Signs 02/16/21 18:26 Temperature 98.8 F Pulse Rate 94 H Respiratory 14 Rate Blood Pressure 127/56 [Right] O2 Sat by Pulse 97 Oximetry Lab Results 02/17/21 02/17/21 02/17/21 Range/Units 02:24 02:24 02:24 WBC 4.7 (4.5-11.0) K/mm3 RBC 2.70 L (3.65-5.03) M/mm3 Hgb 8.6 L (11.8-15.2) gm/dl Hct 25.3 L (35.5-45.6) % MCV 94 (84-94) fl MCH 32 (28-32) pg MCHC 34 (32-34) % RDW 15.1 (13.2-15.2) % Plt Count 86 L (140-440) K/mm3 Lymph % (Auto) 9.4 L (13.4-35.0) % [place] % (Auto) 7.9 H (0.0-7.3) % Eos % (Auto) 1.5 (0.0-4.3) % Baso % (Auto) 0.3 (0.0-1.8) % Lymph # (Auto) 0.4 L (1.2-5.4) K/mm3 [place] # (Auto) 0.4 (0.0-0.8) K/mm3 Eos # (Auto) 0.1 (0.0-0.4) K/mm3 Baso # (Auto) 0.0 (0.0-0.1) K/mm3 Seg Neutrophils % 80.9 H (40.0-70.0) % Seg Neutrophils # 3.8 (1.8-7.7) K/mm3 Sodium 132 L (137-145) mmol/L Potassium 4.1 (3.6-5.0) mmol/L Chloride 92.7 L (98-107) mmol/L Carbon Dioxide 26 (22-30) mmol/L Anion Gap 17 mmol/L BUN 50 H (9-20) mg/dL Creatinine 5.7 H (0.8-1.3) mg/dL Estimated GFR 10 ml/min BUN/Creatinine Ratio 9 % Glucose 470 H (75-100) mg/dL Calcium 8.4 (8.4-10.2) mg/dL Magnesium 2.10 (1.7-2.3) mg/dL Total Bilirubin 0.60 (0.1-1.2) mg/dL AST 18 (5-40) units/L ALT 19 (7-56) units/L Alkaline Phosphatase 171 H (35-129) units/L Total Creatine Kinase 86 (55-170) units/L Total Protein 6.2 L (6.3-8.2) g/dL Albumin 3.0 L (3.9-5) g/dL Albumin/Globulin Ratio 0.9 % TSH 0.986 (0.270-4.200) mlU/mL Salicylates (2.8-20.0) mg/dL Acetaminophen (10.0-30.0) ug/mL 02/17/21 02/17/21 Range/Units 02:24 02:24 WBC (4.5-11.0) K/mm3 RBC (3.65-5.03) M/mm3 Hgb (11.8-15.2) gm/dl Hct (35.5-45.6) % MCV (84-94) fl MCH (28-32) pg MCHC (32-34) % RDW (13.2-15.2) % Plt Count (140-440) K/mm3 Lymph % (Auto) (13.4-35.0) % [place] % (Auto) (0.0-7.3) % Eos % (Auto) (0.0-4.3) % Baso % (Auto) (0.0-1.8) % Lymph # (Auto) (1.2-5.4) K/mm3 [place] # (Auto) (0.0-0.8) K/mm3 Eos # (Auto) (0.0-0.4) K/mm3 Baso # (Auto) (0.0-0.1) K/mm3 Seg Neutrophils % (40.0-70.0) % Seg Neutrophils # (1.8-7.7) K/mm3 Sodium (137-145) mmol/L Potassium (3.6-5.0) mmol/L Chloride (98-107) mmol/L Carbon Dioxide (22-30) mmol/L Anion Gap mmol/L BUN (9-20) mg/dL Creatinine (0.8-1.3) mg/dL Estimated GFR ml/min BUN/Creatinine Ratio % Glucose (75-100) mg/dL Calcium (8.4-10.2) mg/dL Magnesium (1.7-2.3) mg/dL Total Bilirubin (0.1-1.2) mg/dL AST (5-40) units/L ALT (7-56) units/L Alkaline Phosphatase (35-129) units/L Total Creatine Kinase (55-170) units/L Total Protein (6.3-8.2) g/dL Albumin (3.9-5) g/dL Albumin/Globulin Ratio % TSH (0.270-4.200) mlU/mL Salicylates < 0.3 L (2.8-20.0) mg/dL Acetaminophen 5.0 L (10.0-30.0) ug/mL - EKG Data -: EKG Interpreted by Me EKG shows normal: sinus rhythm Rate: normal - EKG Data 02/17/21 05:09 EKG interpreted at 05: 0 5 AM. Sinus rhythm, 97 bpm. Normal axis, QTC prolonged, left ventricular hypertrophy, poor R wave progression, motion artifact. Abnormal EKG. No STEMI. Critical care attestation.: If time is entered above; I have spent that time in minutes in the direct care of this critically ill patient, excluding procedure time. ED Disposition Is pt being admited?: Yes Does the pt Need Aspirin: No
[2021-02-17] MEDS ORDERED: ACETAMINOPHEN 325 MG TAB PO PRN (02:43)
[2021-02-17] MEDS ORDERED: ONDANSETRON 4 MG ODT TAB PO PRN (02:43)
[2021-02-17 02:52] LABS: Basophils % (Auto) 0.3 % (0.0-1.8); Eosinophils # (Auto) 0.1 K/mm3 (0.0-0.4); Eosinophils % (Auto) 1.5 % (0.0-4.3); Hematocrit 25.3 % (35.5-45.6); Hemoglobin 8.6 gm/dl (11.8-15.2); Lymphocytes # (Auto) 0.4 K/mm3 (1.2-5.4); Lymphocytes % (Auto) 9.4 % (13.4-35.0); Mean Corpuscular HGB Conc 34 % (32-34); Mean Corpuscular Volume 94 fl (84-94); Monocytes # (Auto) 0.4 K/mm3 (0.0-0.8); Monocytes % (Auto) 7.9 % (0.0-7.3); Red Cell Distribution Width 15.1 % (13.2-15.2)
[2021-02-17 02:53] LABS: Platelet Count 86 K/mm3 (140-440)
[2021-02-17 03:09] LABS: Calcium 8.4 mg/dL (8.4-10.2)
[2021-02-17] MEDS ORDERED: INSULIN REGULAR, HUMAN 100 UNITS/1 ML SUB-Q ONE ×2 (03:27→05:48)
[2021-02-17] MEDS ORDERED: DEXTROSE 50% IN WATER (25GM) 50 ML SYRINGE IV PRN (04:19)
[2021-02-17] MEDS: CLINDAMYCIN 300 MG CAP PO SCH ×3 (04:25→19:30)
[2021-02-17] MEDS: LACTULOSE 20 GM/30 ML ORAL LIQD PO SCH ×3 (04:26→19:30)
[2021-02-17] MEDS ORDERED: INSULIN REGULAR, HUMAN 100 UNITS/1 ML SUB-Q SCH (05:00)
[2021-02-17 05:30] LABS: Bacteria,Urine 1+ /HPF (Negative); Bilirubin,Urine NEG (Negative); Blood,Urine NEG (Negative); Color,Urine Yellow (Yellow); Urobilinogen,Urine < 2.0 mg/dL (<2.0)
[2021-02-17] MEDS ORDERED: INSULIN GLARGINE 100 UNITS/ML SUB-Q SCH ×2 (10:00→22:00)
[2021-02-17] MEDS: INSULIN REGULAR, HUMAN 100 UNITS/1 ML SUB-Q SCH ×4 (14:44→23:12)
[2021-02-17 21:46] LABS: Calcium 8.6 mg/dL (8.4-10.2)
[2021-02-17] MEDS ORDERED: INSULIN LISPRO 100 UNIT/ML SUB-Q SCH (22:00)
[2021-02-18] MEDS: CLINDAMYCIN 300 MG CAP PO SCH ×4 (00:50→19:34)
[2021-02-18] MEDS ORDERED: INSULIN REGULAR, HUMAN 100 UNITS/1 ML SUB-Q ONE ×3 (01:45→17:52)
[2021-02-18] MEDS: LACTULOSE 20 GM/30 ML ORAL LIQD PO SCH ×3 (03:00→21:10)
[2021-02-18 07:28] LABS: Calcium 8.8 mg/dL (8.4-10.2)
[2021-02-18] MEDS: INSULIN REGULAR, HUMAN 100 UNITS/1 ML SUB-Q SCH ×3 (08:19→19:24)
--- NOTE | 2021-02-18 21:39 | Electrocardiograph Report ---
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
[2021-02-18 21:50] LABS: Calcium 8.4 mg/dL (8.4-10.2)
[2021-02-18] MEDS ORDERED: INSULIN REGULAR, HUMAN 100 UNITS/1 ML IV ONE (22:13)
[2021-02-18] MEDS ORDERED: ALBUTEROL 2.5 MG/3 ML NEBU IH PRN (22:38)
[2021-02-18] MEDS ORDERED: DEXTROSE 50% IN WATER (25GM) 50 ML SYRINGE IV PRN (22:39)
--- NOTE | 2021-02-18 22:46 | History and Physical Report ---
History of Present Illness Date of examination: 02/18/21 Date of admission: 02/18/21 Chief complaint: End-stage renal disease on hemodialysis Waiting for placement Hyperglycemia History of present illness: 55-year-old male with past medical history of end-stage renal disease on hemodialysis, noncompliance with outpatient dialysis, anemia, hepatitis B, chronic liver disease, cirrhosis, esophageal varices, hypertension, debility, diabetes. Also has a history of left lower extremity below-knee amputation, distant past, as well as chronic sacral wound was brought to the hospital for hemodialysis placement issue and hyperglycemia Patient was admitted to the [facility] January 30 for hepatic encephalopathy, hypoglycemia, and hypothermia. The patient was discharged, and subsequently readmitted. As per review of recent discharge summary, patient was found to be clinically stable on February 16, with improving mental status. It appears that extensive discussion about his medical conditions and need to be compliant with lactulose was had with the patient, patient indicated he did not want to take lactulose because staff at facility would not clean him up. He is also found to have a sacral wound. Case management also saw and evaluated this patient. As per case management documentation from February 16, 2021, patient had been accepted to [facility]. In addition, case management received a call from a Mr. Trivedi; [phone], who had advised case management that he would receive patient back at his personal [facility]. However, at that point time, it appeared that the patient was refusing transportation, and had signed himself back into the hospital. the patient presents to the ER because patient missed hemodialysis. Patient BUN is 77 creatinine 7.1 glucose 511 we consulted nephrology for hemodialysis in the morning Past History Past Medical History: anemia, diabetes, ESRD, hepatitis, hypertension, liver disease, renal failure, other (Esophageal varices) Medications and Allergies Allergies Allergy/AdvReac Type Severity Reaction Status Date / Time No Known Allergies Allergy Verified 02/16/21 18:26 Home Medications Medication Instructions Recorded Confirmed Last Taken Type Insulin Glargine [Lantus VIAL] 30 unit SUB-Q QHS 01/31/21 02/13/21 Unknown History Lispro Insulin [HumaLOG] 0 unit SQ ACHS 01/31/21 02/13/21 Unknown History Insulin Glargine [Lantus VIAL] 26 units SUB-Q BID #20 ml 02/04/21 02/13/21 Unknown Rx Lactulose [Cephulac] 20 gm PO Q8H 30 Days oral.liqd 02/16/21 Unknown Rx Clindamycin [Clindamycin CAP] 300 mg PO Q6H #27 capsule 02/17/21 Unknown Rx Active Meds: Active Medications Acetaminophen (Acetaminophen 325 Mg Tab) 325 mg PO Q6HR PRN PRN Reason: PAIN Acetaminophen (Acetaminophen 325 Mg Tab) 650 mg PO Q4H PRN PRN Reason: Pain MILD(1-3)/Fever >100.5/MOLINA Albuterol (Albuterol 2.5 Mg/3 Ml Nebu) 2.5 mg IH Q3HRT PRN PRN Reason: Shortness Of Breath Albuterol/Ipratropium (Ipratropium/Albuterol Sulfate 3 Ml Ampul.Neb) 1 ampul IH Q6HRT LEYLA Clindamycin HCl (Clindamycin 300 Mg Cap) 300 mg PO Q6HR LEYLA; Protocol Stop: 02/24/21 00:01 Last Admin: 02/18/21 19:34 Dose: 300 mg Documented by: Dextrose (Dextrose 50% In Water (25gm) 50 Ml Syringe) 50 ml IV Q30MIN PRN; Protocol PRN Reason: Hypoglycemia Dextrose (Dextrose 50% In Water (25gm) 50 Ml Syringe) 50 ml IV Q30MIN PRN; Protocol PRN Reason: Hypoglycemia Famotidine (Famotidine 20 Mg Tab) 20 mg PO BID LEYLA Insulin Glargine (Insulin Glargine 100 Units/Ml) 20 units SUB-Q BID LEYLA Insulin Human Lispro (Insulin Lispro 100 Unit/Ml) 0 unit SUB-Q ACHS LEYLA; Protocol Insulin Human Regular (Insulin Regular, Human 100 Units/1 Ml) 0 units SUB-Q AC LEYLA; Protocol Last Admin: 02/18/21 19:24 Dose: Not Given Documented by: Lactulose (Lactulose 20 Gm/30 Ml Oral Liqd) 20 gm PO Q8H [facility] Last Admin: 02/18/21 21:10 Dose: 20 gm Documented by: Ondansetron HCl (Ondansetron 4 Mg Odt Tab) 4 mg PO Q6HR PRN PRN Reason: Nausea Ondansetron HCl (Ondansetron 4 Mg/2 Ml Inj) 4 mg IV Q8H PRN PRN Reason: Nausea And Vomiting Sodium Chloride (Sodium Chloride 0.9% 10 Ml Flush Syringe) 10 ml IV BID LEYLA Sodium Chloride (Sodium Chloride 0.9% 10 Ml Flush Syringe) 10 ml IV PRN PRN PRN Reason: LINE FLUSH Exam - Constitutional Vitals: Temp Pulse Resp BP Pulse Ox 98.4 F 85 18 137/67 100 02/18/21 21:00 02/18/21 21:00 02/18/21 21:00 02/18/21 21:00 02/18/21 21:00 General appearance: Present: no acute distress, well-nourished - EENT Eyes: Present: PERRL ENT: hearing intact, clear oral mucosa - Neck Neck: Present: supple, normal ROM - Respiratory Respiratory effort: normal Respiratory: bilateral: diminished - Cardiovascular Heart Sounds: Present: S1 & S2. Absent: rub, click - Extremities Extremities: pulses symmetrical, No edema Extremity abnormal: other (normal inspection (Status post right lower extremity below-knee amputation), other (2+ pulses noted in the bilateral upper extremity, and left lower extremity. There is a right upper extremity fistula, without redness, pus or streaking. There is ecchymosis over the right arm fistula.)) Peripheral Pulses: within normal limits - Abdominal General gastrointestinal: Present: soft, non-tender, non-distended, normal bowel sounds Male genitourinary: Present: normal - Integumentary Integumentary: Present: clear, warm, dry - Musculoskeletal Musculoskeletal: gait normal, strength equal bilaterally - Psychiatric Psychiatric: appropriate mood/affect, intact judgment & insight - Neurologic Neurologic: CNII-XII intact, moves all extremities Results - Labs CBC & Chem 7: 02/17/21 02:24 02/18/21 21:14 Labs: Laboratory Last Values WBC 4.7 K/mm3 (4.5-11.0) 02/17/21 02:24 RBC 2.70 M/mm3 (3.65-5.03) L 02/17/21 02:24 Hgb 8.6 gm/dl (11.8-15.2) L 02/17/21 02:24 Hct 25.3 % (35.5-45.6) L 02/17/21 02:24 MCV 94 fl (84-94) 02/17/21 02:24 MCH 32 pg (28-32) 02/17/21 02:24 MCHC 34 % (32-34) 02/17/21 02:24 RDW 15.1 % (13.2-15.2) 02/17/21 02:24 Plt Count 86 K/mm3 (140-440) L 02/17/21 02:24 Lymph % (Auto) 9.4 % (13.4-35.0) L 02/17/21 02:24 [place] % (Auto) 7.9 % (0.0-7.3) H 02/17/21 02:24 Eos % (Auto) 1.5 % (0.0-4.3) 02/17/21 02:24 Baso % (Auto) 0.3 % (0.0-1.8) 02/17/21 02:24 Lymph # (Auto) 0.4 K/mm3 (1.2-5.4) L 02/17/21 02:24 [place] # (Auto) 0.4 K/mm3 (0.0-0.8) 02/17/21 02:24 Eos # (Auto) 0.1 K/mm3 (0.0-0.4) 02/17/21 02:24 Baso # (Auto) 0.0 K/mm3 (0.0-0.1) 02/17/21 02:24 Seg Neutrophils % 80.9 % (40.0-70.0) H 02/17/21 02:24 Seg Neutrophils # 3.8 K/mm3 (1.8-7.7) 02/17/21 02:24 Sodium 131 mmol/L (137-145) L 02/18/21 21:14 Potassium 4.3 mmol/L (3.6-5.0) 02/18/21 21:14 Chloride 91.6 mmol/L (98-107) L 02/18/21 21:14 Carbon Dioxide 24 mmol/L (22-30) 02/18/21 21:14 Anion Gap 20 mmol/L 02/18/21 21:14 BUN 77 mg/dL (9-20) H 02/18/21 21:14 Creatinine 7.1 mg/dL (0.8-1.3) H 02/18/21 21:14 Estimated GFR 8 ml/min 02/18/21 21:14 BUN/Creatinine Ratio 11 % 02/18/21 21:14 Glucose 511 mg/dL (75-100) H* 02/18/21 21:14 POC Glucose 395 mg/dL (70-105) H 02/18/21 16:50 Calcium 8.4 mg/dL (8.4-10.2) 02/18/21 21:14 Magnesium 2.10 mg/dL (1.7-2.3) 02/17/21 02:24 Total Bilirubin 0.60 mg/dL (0.1-1.2) 02/17/21 02:24 AST 18 units/L (5-40) 02/17/21 02:24 ALT 19 units/L (7-56) 02/17/21 02:24 Alkaline Phosphatase 171 units/L (35-129) H 02/17/21 02:24 Ammonia 43.0 umol/L (25-60) 02/18/21 21:14 Total Creatine Kinase 86 units/L (55-170) 02/17/21 02:24 Total Protein 6.2 g/dL (6.3-8.2) L 02/17/21 02:24 Albumin 3.0 g/dL (3.9-5) L 02/17/21 02:24 Albumin/Globulin Ratio 0.9 % 02/17/21 02:24 TSH 0.986 mlU/mL (0.270-4.200) 02/17/21 02:24 Urine Color Yellow (Yellow) 02/17/21 Unknown Urine Turbidity Clear (Clear) 02/17/21 Unknown Urine pH 6.0 (5.0-7.0) 02/17/21 Unknown Ur Specific [place] 1.012 (1.003-1.030) 02/17/21 Unknown Urine Protein 100 mg/dl mg/dL (Negative) 02/17/21 Unknown Urine Glucose (UA) >=500 mg/dL (Negative) 02/17/21 Unknown Urine Ketones Neg mg/dL (Negative) 02/17/21 Unknown Urine Blood Neg (Negative) 02/17/21 Unknown Urine Nitrite Neg (Negative) 02/17/21 Unknown Urine Bilirubin Neg (Negative) 02/17/21 Unknown Urine Urobilinogen < 2.0 mg/dL (<2.0) 02/17/21 Unknown Ur Leukocyte Esterase Neg (Negative) 02/17/21 Unknown Urine WBC (Auto) 2.0 /HPF (0.0-6.0) 02/17/21 Unknown Urine RBC (Auto) 2.0 /HPF (0.0-6.0) 02/17/21 Unknown U Epithel Cells (Auto) < 1.0 /HPF (0-13.0) 02/17/21 Unknown Urine Bacteria (Auto) 1+ /HPF (Negative) 02/17/21 Unknown Salicylates < 0.3 mg/dL (2.8-20.0) L 02/17/21 02:24 Acetaminophen 5.0 ug/mL (10.0-30.0) L 02/17/21 02:24 Microbiology: Microbiology 02/17/21 Unknown Urine,Clean Catch Urine Culture - Preliminary NO GROWTH AFTER 24 HOURS Assessment and Plan VTE prophylaxis?: Chemical Plan of care discussed with patient/family: Yes - Patient Problems (1) End-stage renal disease needing dialysis Current Visit: Yes Status: Acute Plan to address problem: We will put the patient on renal diet. Avoid nephrotoxic drug. We will consult nephrology for hemodialysis in the morning recheck CBC BMP in the morning (2) Diabetes 1.5, managed as type 2 Current Visit: Yes Status: Acute Plan to address problem: We will put the patient on diabetic diet. We also put the patient on Humalog sliding scale moderate dose Accu-Chek before meals and at bedtime. Will consult for diabetic education recheck BMP in the morning. We will continue the home medication (3) Anemia Current Visit: Yes Status: Acute Plan to address problem: Stable. Anemia most likely secondary to chronic kidney disease. Recheck CBC in the morning (4) Case management patient Current Visit: Yes Status: Acute Plan to address problem: Case management is working on placement for the patient. (5) Chronic liver disease and cirrhosis Current Visit: Yes Status: Acute (6) Hyponatremia Current Visit: No Status: Acute Plan to address problem: Patient has pseudohyponatremia due to elevated blood glucose. We will recheck the BMP in the morning. (7) Hypertension Current Visit: Yes Status: Acute Plan to address problem: Hydralazine 10 mg IV every 6 hours as needed. We will monitor the patient closely (8) DVT prophylaxis Current Visit: No Status: Acute Plan to address problem: Heparin 5000 units subcu every 8 hours for DVT prophylaxis. Pepcid 20 mg p.o. twice daily for GI prophylaxis. Patient is a full code
[2021-02-18] MEDS ORDERED: hydrALAZINE 20 MG/1 ML INJ IV PRN (22:56)
[2021-02-18] MEDS ORDERED: INSULIN GLARGINE 100 UNITS/ML SUB-Q SCH (23:00)
[2021-02-18] MEDS ORDERED: ONDANSETRON 4 MG ODT TAB PO PRN (23:00)
[2021-02-19] MEDS: CLINDAMYCIN 300 MG CAP PO SCH ×5 (00:28→23:26)
[2021-02-19] MEDS: IPRATROPIUM/ALBUTEROL SULFATE 3 ML AMPUL.NEB IH SCH ×4 (02:09→19:31)
[2021-02-19] MEDS: LACTULOSE 20 GM/30 ML ORAL LIQD PO SCH ×3 (03:23→20:20)
[2021-02-19] MEDS: HEPARIN 5,000 UNIT/1 ML VIAL SUB-Q SCH ×3 (05:08→22:09)
[2021-02-19 05:56] LABS: Basophils % (Auto) 0.5 % (0.0-1.8); Eosinophils # (Auto) 0.1 K/mm3 (0.0-0.4); Eosinophils % (Auto) 1.9 % (0.0-4.3); Hematocrit 20.7 % (35.5-45.6); Hemoglobin 7.3 gm/dl (11.8-15.2); Lymphocytes # (Auto) 0.6 K/mm3 (1.2-5.4); Lymphocytes % (Auto) 11.2 % (13.4-35.0); Mean Corpuscular HGB Conc 36 % (32-34); Mean Corpuscular Volume 93 fl (84-94); Monocytes # (Auto) 0.5 K/mm3 (0.0-0.8); Monocytes % (Auto) 9.2 % (0.0-7.3); Platelet Count 84 K/mm3 (140-440); Red Blood Count 2.22 M/mm3 (3.65-5.03); Red Cell Distribution Width 15.5 % (13.2-15.2)
[2021-02-19 06:11] LABS: Calcium 8.4 mg/dL (8.4-10.2)
--- NOTE | 2021-02-19 08:56 | Consultation ---
History of Present Illness - Reason for Consult Consult date: 02/19/21 end stage renal disease - History of Present Illness The patient is a 55 YO male with history significant for HTN, DM type 2, ESRD on HD (MWF), Noncompliance with outpatient dialysis, Anemia, HBV, Chronic Liver Disease, Cirrhosis complicated by Esophageal Varices and Debility who presented to [facility] ED 02/17 after he refused to go back to the personal [place] [facility]. He also refused to take Lactulose. He was recently admitted with AMS and was discharged on 02/16. He denies any new new symptoms at this time. He was last dialyzed on 02/15 at this facility. Initial bl glucose was 589. Nephrology was consulted for further evaluation and treatment of ESRD. Past History Past Medical History: anemia, diabetes, dialysis, ESRD, hepatitis, hypertension, liver disease, other (Esophageal varices) Medications and Allergies Allergies Allergy/AdvReac Type Severity Reaction Status Date / Time No Known Allergies Allergy Verified 02/16/21 18:26 Home Medications Medication Instructions Recorded Confirmed Last Taken Type Insulin Glargine [Lantus VIAL] 58 unit SUB-Q QHS 01/31/21 02/19/21 Unknown History Lispro Insulin [HumaLOG] See Protocol SQ ACHS 01/31/21 02/19/21 Unknown History Lactulose [Cephulac] 20 gm PO Q8H 30 Days oral.liqd 02/16/21 02/19/21 Unknown Rx Calcium Acetate 2 tab PO TID 02/19/21 02/19/21 Unknown History Inderal 20 mg PO BID 02/19/21 02/19/21 Unknown History allopurinoL 100 mg PO DAILY 02/19/21 02/19/21 Unknown History Active Meds: Active Medications Acetaminophen (Acetaminophen 325 Mg Tab) 650 mg PO Q4H PRN PRN Reason: Pain MILD(1-3)/Fever >100.5/MOLINA Albuterol (Albuterol 2.5 Mg/3 Ml Nebu) 2.5 mg IH Q3HRT PRN PRN Reason: Shortness Of Breath Albuterol/Ipratropium (Ipratropium/Albuterol Sulfate 3 Ml Ampul.Neb) 1 ampul IH Q6HRT LEYLA Last Admin: 02/19/21 02:09 Dose: 1 ampul Documented by: Clindamycin HCl (Clindamycin 300 Mg Cap) 300 mg PO Q6HR [facility]; Protocol Stop: 02/24/21 00:01 Last Admin: 02/19/21 05:09 Dose: 300 mg Documented by: Dextrose (Dextrose 50% In Water (25gm) 50 Ml Syringe) 0 ml IV Q30MIN PRN; Protocol PRN Reason: Hypoglycemia Famotidine (Famotidine 20 Mg Tab) 20 mg PO QAM [facility] Heparin Sodium (Porcine) (Heparin 5,000 Unit/1 Ml Vial) 5,000 unit SUB-Q Q8HR [facility] Last Admin: 02/19/21 05:08 Dose: 5,000 unit Documented by: Hydralazine HCl (Hydralazine 20 Mg/1 Ml Inj) 10 mg IV Q6H PRN PRN Reason: htn Insulin Glargine (Insulin Glargine 100 Units/Ml) 20 units SUB-Q BID [facility] Last Admin: 02/18/21 23:21 Dose: 20 units Documented by: Insulin Human Lispro (Insulin Lispro 100 Unit/Ml) 0 unit SUB-Q ACHS [facility]; Protocol Lactulose (Lactulose 20 Gm/30 Ml Oral Liqd) 20 gm PO Q8H [facility] Last Admin: 02/19/21 03:23 Dose: 20 gm Documented by: Ondansetron HCl (Ondansetron 4 Mg/2 Ml Inj) 4 mg IV Q8H PRN PRN Reason: Nausea And Vomiting Ondansetron HCl (Ondansetron 4 Mg Odt Tab) 4 mg PO Q6H PRN PRN Reason: Nausea Sodium Chloride (Sodium Chloride 0.9% 10 Ml Flush Syringe) 10 ml IV BID [facility] Sodium Chloride (Sodium Chloride 0.9% 10 Ml Flush Syringe) 10 ml IV PRN PRN PRN Reason: LINE FLUSH Review of Systems Constitutional: no weight loss, no weight gain, no fever, no chills, no weakness Cardiovascular: no chest pain, no edema, no syncope, no lightheadedness, no shortness of breath, no leg edema Respiratory: no cough, no hemoptysis, no shortness of breath Gastrointestinal: no abdominal pain, no nausea, no vomiting Genitourinary Male: no dysuria, no hematuria Neurological: no syncope, no convulsions, no aphasia, no change in speech Exam - Vital Signs Vital signs: Vital Signs Temp Pulse Resp BP Pulse Ox 98.8 F 94 H 14 127/56 97 02/16/21 18:26 02/16/21 18:26 02/16/21 18:26 02/16/21 18:26 02/16/21 18:26 Results - Lab Results 02/19/21 05:27 02/19/21 05:27 Most recent lab results Calcium 8.4 mg/dL (8.4-10.2) 02/19/21 05:27 Magnesium 2.10 mg/dL (1.7-2.3) 02/17/21 02:24 Assessment and Plan 1. ESRD: Patient is on maintenance hemodialysis three times a week, MWF schedule. Meds dosage based on GFR. Missed HD yesterday. Hemodialysis: 02/19. 2. FEN: Monitor lytes and volume status. 3. Anemia, POA: 2/2 ESRD and Liver disease. Epogen with HD. PRBC as needed. 4. Cirrhosis with h/o hepatic encephalopathy: Lactulose. Monitor. 5. DM type 2 uncontrolled: Hyperglycemia on admission. SSI. Monitor. 6. Thrombocytopenia, POA: 7. Hypertension: Monitor BP. Adjust meds as appropriate. Subjective: Patient was seen and examined at the bedside. General Appearance: General appearance: well-developed, appears stated age, not in distress HEENT: ATNC, pupils equal Neck: trachea midline Respiratory: ctab Heart: regular, S1S2, no murmur Abdomen: soft, bowel sounds heard, not tender Integumentary: no rash, warm and dry Neurologic: AO, conversing, able to move extremities Ext: no edema, R BKA Hemodialysis access: R arm AVF
[2021-02-19] MEDS ORDERED: SODIUM CHLORIDE 0.9% 100 ML IV PRN (09:06)
[2021-02-19] MEDS: INSULIN LISPRO 100 UNIT/ML SUB-Q SCH ×4 (09:10→23:18)
[2021-02-19] MEDS: FAMOTIDINE 20 MG TAB PO SCH (09:26)
--- NOTE | 2021-02-19 10:50 | Progress Note ---
Assessment and Plan Assessment and plan: 55 YO Male with ESRD on HD, Noncompliance with outpatient dialysis, Anemia, HBV, Chronic Liver Disease, Cirrhosis complicated by Esophageal Varices, HTN, Debility, DM presents to ED for evaluation. Patient is confused with diminished cognition and is unable to provide detailed history. Patient history taken from EMS staff, ED staff as well as patient family members. Patient family report the patient was "not acting like himself" and found to have worsening confusion over the past 2 days. EMS was notified and upon arrival the patient was found to be in distress and subsequent transported to [facility] for further care and evaluation of the aforementioned symptoms. The patient was seen and evaluated in the emergency department. All lab and imaging studies reviewed. The patient was found to have hepatic encephalopathy complicated by diminished cognition, end-stage renal disease in need of urgent dialysis, as well as uncontrolled diabetes, and acidosis. Nephrology team consulted in ED. During the admission referenced above is mental status is improved we did have extensive discussion about his medical condition and the need to be compliant with the lactulose he states that he was not taking the lactulose because the staff at the facility where he is at would not clean him up. He also has a sacral wound which is being monitored. Considering that he was not having significant diarrhea on the lactulose he is now agreeable to he will take it. His blood pressure was low yesterday but this was during dialysis and is improved. I do not think that this inconsiderate to consider palliative care for him due to his chronic liver disease. Will defer to case management and outpatient discussion with the patient. Otherwise will plan proceed with discharge and continued on dialysis outpatient. Return to the ER due to: As per case management documentation from February 16, 2021, patient had been accepted to [place] hospice program. In addition, case management received a call from a Mr. Trivedi; [phone], who had advised case management that he would receive patient back at his personal shelter. However, at that point time, it appeared that the patient was refusing tr ansportation, and had signed himself back into the hospital. the patient presents to the ER because patient missed hemodialysis. Patient BUN is 77 creatinine 7.1 glucose 511 we consulted nephrology for hemodialysis in the morning 6/1: Resume dialysis will adjust insulin for better coverage. Very poor prognosis considering poor medical compliance. Agree with hospice recommendation. Will obtain wound care to continue to manage. Monitor anemia as patient was pretty anemic during the last hospitalization. Required transfusion. (1) Hepatic encephalopathy Current Visit: No Status: Acute Plan to address problem: Neuro check, seizure precaution, aspiration precaution, fall precautions, continue to monitor. (2) End stage renal disease Current Visit: No Status: Acute Plan to address problem: Nephrology team consulted, strict I's/O, monitor urine output every shift, dialysis as per renal team, avoid nephrotoxic agents. (3) Metabolic Acidosis Current Visit: Yes Status: Acute Plan to address problem: BMP, repeat BMP in a.m., nephrology team consulted, dialysis as per renal team. (4) Hyponatremia Current Visit: Yes Status: Acute Plan to address problem: BMP, supportive care, repeat BMP in a.m., monitor fluid balance. (5) Hyperammonemia Current Visit: Yes Status: Acute Plan to address problem: Continue lactulose (6) diabetes mellitus with hyperglycemia (7) hyperkalemia Expect improvement with dialysis (8) sacral wound (9) Moderate Protein Calorie Malnutrition History Interval history: Patient seen and examined no acute distress. Hospitalist Physical - Physical exam Narrative exam: VITAL SIGNS: Reviewed. GENERAL: The patient appears normally developed, Vital signs as documented. HEAD: No signs of head trauma. EYES: Pupils are equal. Extraocular motions intact. Icteric sclera EARS: Hearing grossly intact. MOUTH: Oropharynx is normal. NECK: No adenopathy, no JVD. CHEST: Chest with diminished breath sounds bilaterally. No wheezes, rales, or rhonchi. CARDIAC: Regular rate and rhythm. S1 and S2, without murmurs, gallops, or rubs. VASCULAR: No Edema. Peripheral pulses normal and equal in all extremities. ABDOMEN: Soft, non tender and non distended. No rebound or guarding, and no masses palpated. Bowel Sounds normal. MUSCULOSKELETAL: Right BKA extremities without clubbing, cyanosis or edema. NEUROLOGIC EXAM: Alert and oriented x 3 No focal sensory or strength deficits. Speech normal. Follows commands. PSYCHIATRIC: Mood normal. SKIN: Jaundice detail exam as documented in skin assessment - Constitutional Vitals: Temp Pulse Resp BP Pulse Ox 99.4 F 90 18 110/57 98 02/19/21 09:50 02/19/21 10:45 02/19/21 09:50 02/19/21 10:45 02/19/21 04:52 General appearance: Present: no acute distress, well-nourished Results - Labs CBC & Chem 7: 02/19/21 05:27 02/19/21 05:27 Labs: Laboratory Last Values WBC 5.2 K/mm3 (4.5-11.0) 02/19/21 05:27 RBC 2.22 M/mm3 (3.65-5.03) L 02/19/21 05:27 Hgb 7.3 gm/dl (11.8-15.2) L 02/19/21 05:27 Hct 20.7 % (35.5-45.6) L 02/19/21 05:27 MCV 93 fl (84-94) 02/19/21 05:27 MCH 33 pg (28-32) H 02/19/21 05:27 MCHC 36 % (32-34) H 02/19/21 05:27 RDW 15.5 % (13.2-15.2) H 02/19/21 05:27 Plt Count 84 K/mm3 (140-440) L 02/19/21 05:27 Lymph % (Auto) 11.2 % (13.4-35.0) L 02/19/21 05:27 [place] % (Auto) 9.2 % (0.0-7.3) H 02/19/21 05:27 Eos % (Auto) 1.9 % (0.0-4.3) 02/19/21 05:27 Baso % (Auto) 0.5 % (0.0-1.8) 02/19/21 05:27 Lymph # (Auto) 0.6 K/mm3 (1.2-5.4) L 02/19/21 05:27 [place] # (Auto) 0.5 K/mm3 (0.0-0.8) 02/19/21 05:27 Eos # (Auto) 0.1 K/mm3 (0.0-0.4) 02/19/21 05:27 Baso # (Auto) 0.0 K/mm3 (0.0-0.1) 02/19/21 05:27 Seg Neutrophils % 77.2 % (40.0-70.0) H 02/19/21 05:27 Seg Neutrophils # 4.0 K/mm3 (1.8-7.7) 02/19/21 05:27 Sodium 132 mmol/L (137-145) L 02/19/21 05:27 Potassium 4.2 mmol/L (3.6-5.0) 02/19/21 05:27 Chloride 93.4 mmol/L (98-107) L 02/19/21 05:27 Carbon Dioxide 23 mmol/L (22-30) 02/19/21 05:27 Anion Gap 20 mmol/L 02/19/21 05:27 BUN 74 mg/dL (9-20) H 02/19/21 05:27 Creatinine 7.5 mg/dL (0.8-1.3) H 02/19/21 05:27 Estimated GFR 8 ml/min 02/19/21 05:27 BUN/Creatinine Ratio 10 % 02/19/21 05:27 Glucose 305 mg/dL (75-100) H 02/19/21 05:27 POC Glucose 267 mg/dL (70-105) H 02/19/21 07:40 Calcium 8.4 mg/dL (8.4-10.2) 02/19/21 05:27 Magnesium 2.10 mg/dL (1.7-2.3) 02/17/21 02:24 Total Bilirubin 0.60 mg/dL (0.1-1.2) 02/17/21 02:24 AST 18 units/L (5-40) 02/17/21 02:24 ALT 19 units/L (7-56) 02/17/21 02:24 Alkaline Phosphatase 171 units/L (35-129) H 02/17/21 02:24 Ammonia 43.0 umol/L (25-60) 02/18/21 21:14 Total Creatine Kinase 86 units/L (55-170) 02/17/21 02:24 Total Protein 6.2 g/dL (6.3-8.2) L 02/17/21 02:24 Albumin 3.0 g/dL (3.9-5) L 02/17/21 02:24 Albumin/Globulin Ratio 0.9 % 02/17/21 02:24 TSH 0.986 mlU/mL (0.270-4.200) 02/17/21 02:24 Urine Color Yellow (Yellow) 02/17/21 Unknown Urine Turbidity Clear (Clear) 02/17/21 Unknown Urine pH 6.0 (5.0-7.0) 02/17/21 Unknown Ur Specific [place] 1.012 (1.003-1.030) 02/17/21 Unknown Urine Protein 100 mg/dl mg/dL (Negative) 02/17/21 Unknown Urine Glucose (UA) >=500 mg/dL (Negative) 02/17/21 Unknown Urine Ketones Neg mg/dL (Negative) 02/17/21 Unknown Urine Blood Neg (Negative) 02/17/21 Unknown Urine Nitrite Neg (Negative) 02/17/21 Unknown Urine Bilirubin Neg (Negative) 02/17/21 Unknown Urine Urobilinogen < 2.0 mg/dL (<2.0) 02/17/21 Unknown Ur Leukocyte Esterase Neg (Negative) 02/17/21 Unknown Urine WBC (Auto) 2.0 /HPF (0.0-6.0) 02/17/21 Unknown Urine RBC (Auto) 2.0 /HPF (0.0-6.0) 02/17/21 Unknown U Epithel Cells (Auto) < 1.0 /HPF (0-13.0) 02/17/21 Unknown Urine Bacteria (Auto) 1+ /HPF (Negative) 02/17/21 Unknown Salicylates < 0.3 mg/dL (2.8-20.0) L 02/17/21 02:24 Acetaminophen 5.0 ug/mL (10.0-30.0) L 02/17/21 02:24 Microbiology: Microbiology 02/17/21 Unknown Urine,Clean Catch Urine Culture - Preliminary NO GROWTH AFTER 24 HOURS Sr/IV: Voiding Method Urinal Active Medications - Current Medications Current Medications: Generic Name Dose Route Start Last Admin Trade Name Freq PRN Reason Stop Dose Admin Acetaminophen 650 mg 02/18/21 22:38 Acetaminophen 325 Mg Tab PO Q4H PRN Pain MILD(1-3)/Fever >100.5/MOLINA Albuterol 2.5 mg 02/18/21 22:38 Albuterol 2.5 Mg/3 Ml Nebu IH Q3HRT PRN Shortness Of Breath Albuterol/Ipratropium 1 ampul 02/19/21 02:00 02/19/21 02:09 Ipratropium/Albuterol Sulfate 3 Ml Ampul.Neb IH 1 ampul Q6HRT LEYLA Administration Clindamycin HCl 300 mg 02/19/21 12:00 Clindamycin 300 Mg Cap PO 02/24/21 06:01 Q6HR LEYLA Protocol Dextrose 0 ml 02/18/21 23:00 Dextrose 50% In Water (25gm) 50 Ml Syringe IV Q30MIN PRN Hypoglycemia Protocol Famotidine 20 mg 02/19/21 10:00 02/19/21 09:26 Famotidine 20 Mg Tab PO 20 mg QAM LEYLA Administration Heparin Sodium (Porcine) 5,000 unit 02/19/21 06:00 02/19/21 05:08 Heparin 5,000 Unit/1 Ml Vial SUB-Q 5,000 unit Q8HR LEYLA Administration Hydralazine HCl 10 mg 02/18/21 22:56 Hydralazine 20 Mg/1 Ml Inj IV Q6H PRN htn Sodium Chloride 100 mls @ 999 mls/hr 02/19/21 09:06 Nacl 0.9% IV OLIVIA PRN Hypotension Insulin Glargine 20 units 02/18/21 23:00 02/18/21 23:21 Insulin Glargine 100 Units/Ml SUB-Q 20 units BID LEYLA Administration Insulin Human Lispro 0 unit 02/19/21 07:30 02/19/21 09:10 Insulin Lispro 100 Unit/Ml SUB-Q 4 unit ACHS LEYLA Administration Protocol Lactulose 20 gm 02/17/21 03:00 02/19/21 03:23 Lactulose 20 Gm/30 Ml Oral Liqd PO 20 gm Q8H LEYLA Administration Ondansetron HCl 4 mg 02/18/21 22:38 Ondansetron 4 Mg/2 Ml Inj IV Q8H PRN Nausea And Vomiting Sodium Chloride 10 ml 02/19/21 10:00 02/19/21 09:24 Sodium Chloride 0.9% 10 Ml Flush Syringe IV 10 ml BID LEYLA Administration Sodium Chloride 10 ml 02/18/21 22:38 Sodium Chloride 0.9% 10 Ml Flush Syringe IV PRN PRN LINE FLUSH
[2021-02-19] MEDS: EPOETIN ALFA-EPBX 20,000 UNIT/1 ML VIAL SUB-Q PRN (12:23)
[2021-02-19] MEDS: INSULIN GLARGINE 100 UNITS/ML SUB-Q SCH ×2 (13:48→23:17)
[2021-02-19] MEDS: INSULIN REGULAR, HUMAN 100 UNITS/1 ML SUB-Q SCH (17:23)
[2021-02-20] MEDS: LACTULOSE 20 GM/30 ML ORAL LIQD PO SCH ×3 (03:55→18:14)
[2021-02-20] MEDS: ACETAMINOPHEN 325 MG TAB PO PRN (04:59)
[2021-02-20] MEDS: CLINDAMYCIN 300 MG CAP PO SCH ×3 (06:16→17:16)
[2021-02-20] MEDS: HEPARIN 5,000 UNIT/1 ML VIAL SUB-Q SCH ×3 (06:17→21:46)
[2021-02-20] MEDS ORDERED: CALCIUM ACETATE PO SCH (08:00)
[2021-02-20] MEDS ORDERED: IPRATROPIUM/ALBUTEROL SULFATE 3 ML AMPUL.NEB IH SCH (08:00)
[2021-02-20] MEDS ORDERED: CALCIUM ACETATE 667 MG CAP PO SCH (08:30)
[2021-02-20] MEDS: CALCIUM ACETATE 667 MG CAP PO SCH ×3 (09:10→17:16)
[2021-02-20] MEDS: INSULIN LISPRO 100 UNIT/ML SUB-Q SCH ×4 (09:10→21:48)
[2021-02-20] MEDS: FAMOTIDINE 20 MG TAB PO SCH (09:11)
--- NOTE | 2021-02-20 09:36 | Progress Note ---
Assessment and Plan 1. ESRD: Patient is on maintenance hemodialysis three times a week, MWF schedule. Meds dosage based on GFR. Missed HD 02/18. Hemodialysis: 02/19, 02/20. 2. FEN: Monitor lytes and volume status. 3. Anemia, POA: 2/2 ESRD and Liver disease. Epogen with HD. PRBC as needed. 4. Cirrhosis with h/o hepatic encephalopathy: Lactulose. Monitor. 5. DM type 2 uncontrolled: Hyperglycemia on admission. SSI. Monitor. 6. Thrombocytopenia, POA: 7. Hypertension: Monitor BP. Adjust meds as appropriate. Subjective: Patient was seen and examined at the bedside. General Appearance: General appearance: well-developed, appears stated age, not in distress HEENT: ATNC, pupils equal Neck: trachea midline Respiratory: ctab Heart: regular, S1S2, no murmur Abdomen: soft, bowel sounds heard, not tender Integumentary: no rash, warm and dry Neurologic: AO, conversing, able to move extremities Ext: no edema, R BKA Hemodialysis access: R arm AVF Subjective Date of service: 02/20/21 Objective - Vital Signs Vital signs: Vital Signs - 12hr 02/19/21 02/20/21 21:53 05:04 Temperature 98.5 F Pulse Rate 95 H Respiratory 18 Rate Blood Pressure 118/52 [Right] O2 Sat by Pulse 95 100 Oximetry - Lab 02/19/21 05:27 02/19/21 05:27 Most recent lab results Calcium 8.4 mg/dL (8.4-10.2) 02/19/21 05:27 Magnesium 2.10 mg/dL (1.7-2.3) 02/17/21 02:24 Medications & Allergies - Medications Allergies/Adverse Reactions: Allergies No Known Allergies Allergy (Verified 02/16/21 18:26) Home Medications: Home Medications Medication Instructions Recorded Confirmed Last Taken Type Insulin Glargine [Lantus VIAL] 58 unit SUB-Q QHS 01/31/21 02/19/21 Unknown History Lispro Insulin [HumaLOG] See Protocol SQ ACHS 01/31/21 02/19/21 Unknown History Lactulose [Cephulac] 20 gm PO Q8H 30 Days oral.liqd 02/16/21 02/19/21 Unknown Rx Calcium Acetate 2 tab PO TID 02/19/21 02/19/21 Unknown History Inderal 20 mg PO BID 02/19/21 02/19/21 Unknown History allopurinoL 100 mg PO DAILY 02/19/21 02/19/21 Unknown History Active Medications: Generic Name Dose Route Start Last Admin Trade Name Freq PRN Reason Stop Dose Admin Acetaminophen 650 mg 02/18/21 22:38 02/20/21 04:59 Acetaminophen 325 Mg Tab PO 650 mg Q4H PRN Administration Pain MILD(1-3)/Fever >100.5/MOLINA Albuterol 2.5 mg 02/18/21 22:38 Albuterol 2.5 Mg/3 Ml Nebu IH Q3HRT PRN Shortness Of Breath Allopurinol 100 mg 02/20/21 10:00 Allopurinol 100 Mg Tab PO QDAY [facility] Calcium Acetate 1,334 mg 02/20/21 08:30 02/20/21 09:10 Calcium Acetate 667 Mg Cap PO Not Given TIDWM [facility] Clindamycin HCl 300 mg 02/19/21 12:00 02/20/21 06:16 Clindamycin 300 Mg Cap PO 02/24/21 06:01 300 mg Q6HR LEYLA Administration Protocol Dextrose 0 ml 02/18/21 23:00 Dextrose 50% In Water (25gm) 50 Ml Syringe IV Q30MIN PRN Hypoglycemia Protocol Famotidine 20 mg 02/19/21 10:00 02/20/21 09:11 Famotidine 20 Mg Tab PO Not Given QAM [facility] Heparin Sodium (Porcine) 5,000 unit 02/19/21 06:00 02/20/21 06:17 Heparin 5,000 Unit/1 Ml Vial SUB-Q Not Given Q8HR [facility] Hydralazine HCl 10 mg 02/18/21 22:56 Hydralazine 20 Mg/1 Ml Inj IV Q6H PRN htn Sodium Chloride 100 mls @ 999 mls/hr 02/19/21 09:06 Nacl 0.9% IV OLIVIA PRN Hypotension Insulin Glargine 30 units 02/19/21 11:00 02/19/21 23:17 Insulin Glargine 100 Units/Ml SUB-Q 30 units BID LEYLA Administration Insulin Human Lispro 0 unit 02/19/21 07:30 02/20/21 09:10 Insulin Lispro 100 Unit/Ml SUB-Q Not Given ACHS [facility] Protocol Lactulose 20 gm 02/17/21 03:00 02/20/21 03:55 Lactulose 20 Gm/30 Ml Oral Liqd PO 20 gm Q8H LEYLA Administration Ondansetron HCl 4 mg 02/18/21 22:38 Ondansetron 4 Mg/2 Ml Inj IV Q8H PRN Nausea And Vomiting Propranolol HCl 20 mg 02/20/21 10:00 Propranolol 10 Mg Tab PO BID LEYLA Sodium Chloride 10 ml 02/19/21 10:00 02/20/21 09:11 Sodium Chloride 0.9% 10 Ml Flush Syringe IV Not Given BID LEYLA Sodium Chloride 10 ml 02/18/21 22:38 Sodium Chloride 0.9% 10 Ml Flush Syringe IV PRN PRN LINE FLUSH
[2021-02-20] MEDS ORDERED: INDERAL 20 MG PO SCH (10:00)
[2021-02-20] MEDS ORDERED: NON-FORMULARY EACH (Allopurinol 100 MG) PO SCH (10:00)
--- NOTE | 2021-02-20 11:04 | Progress Note ---
Assessment and Plan Assessment and plan: 55 YO Male with ESRD on HD, Noncompliance with outpatient dialysis, Anemia, HBV, Chronic Liver Disease, Cirrhosis complicated by Esophageal Varices, HTN, Debility, DM presents to ED for evaluation. Patient is confused with diminished cognition and is unable to provide detailed history. Patient history taken from EMS staff, ED staff as well as patient family members. Patient family report the patient was "not acting like himself" and found to have worsening confusion over the past 2 days. EMS was notified and upon arrival the patient was found to be in distress and subsequent transported to [facility] for further care and evaluation of the aforementioned symptoms. The patient was seen and evaluated in the emergency department. All lab and imaging studies reviewed. The patient was found to have hepatic encephalopathy complicated by diminished cognition, end-stage renal disease in need of urgent dialysis, as well as uncontrolled diabetes, and acidosis. Nephrology team consulted in ED. During the admission referenced above is mental status is improved we did have extensive discussion about his medical condition and the need to be compliant with the lactulose he states that he was not taking the lactulose because the staff at the facility where he is at would not clean him up. He also has a sacral wound which is being monitored. Considering that he was not having significant diarrhea on the lactulose he is now agreeable to he will take it. His blood pressure was low yesterday but this was during dialysis and is improved. I do not think that this inconsiderate to consider palliative care for him due to his chronic liver disease. Will defer to case management and outpatient discussion with the patient. Otherwise will plan proceed with discharge and continued on dialysis outpatient. Return to the ER due to: As per case management documentation from February 16, 2021, patient had been accepted to [place] hosp[facility] program. In addition, case management received a call from a Mr. Trivedi; [phone], who had advised case management that he would receive patient back at his [facility]. However, at that point time, it appeared that the patient was refusing tr ansportation, and had signed himself back into the hospital. the patient presents to the ER because patient missed hemodialysis. Patient BUN is 77 creatinine 7.1 glucose 511 we consulted nephrology for hemodialysis in the morning 6/1: Resume dialysis will adjust insulin for better coverage. Very poor prognosis considering poor medical compliance. Agree with hospice recommendation. Will obtain wound care to continue to manage. Monitor anemia as patient was pretty anemic during the last hospitalization. Required transfusion. /: Continues to undergo dialysis no change in mental status noted. Tolerating medications. Blood sugar mildly elevated adjusted insulin yesterday when awake for the patient received a dose today and if still elevated will adjust. Again case management is working on discharge plan for this patient as he is pending placement (1) Hepatic encephalopathy Current Visit: No Status: Acute Plan to address problem: Neuro check, seizure precaution, aspiration precaution, fall precautions, continue to monitor. (2) End stage renal disease Current Visit: No Status: Acute Plan to address problem: Nephrology team consulted, strict I's/O, monitor urine output every shift, dialysis as per renal team, avoid nephrotoxic agents. (3) Metabolic Acidosis Current Visit: Yes Status: Acute Plan to address problem: BMP, repeat BMP in a.m., nephrology team consulted, dialysis as per renal team. (4) Hyponatremia Current Visit: Yes Status: Acute Plan to address problem: BMP, supportive care, repeat BMP in a.m., monitor fluid balance. (5) Hyperammonemia Current Visit: Yes Status: Acute Plan to address problem: Continue lactulose (6) diabetes mellitus with hyperglycemia (7) hyperkalemia Expect improvement with dialysis (8) sacral wound (9) Moderate Protein Calorie Malnutrition History Interval history: Patient seen and examined no acute distress. Undergoing HD. Hospitalist Physical - Physical exam Narrative exam: VITAL SIGNS: Reviewed. GENERAL: The patient appears normally developed, Vital signs as documented. Seen and examined at the hemodialysis bay HEAD: No signs of head trauma. EYES: Pupils are equal. Extraocular motions intact. Icteric sclera EARS: Hearing grossly intact. MOUTH: Oropharynx is normal. NECK: No adenopathy, no JVD. CHEST: Chest with diminished breath sounds bilaterally. No wheezes, rales, or rhonchi. CARDIAC: Regular rate and rhythm. S1 and S2, without murmurs, gallops, or ru bs. VASCULAR: No Edema. Peripheral pulses normal and equal in all extremities. ABDOMEN: Soft, non tender and non distended. No rebound or guarding, and no masses palpated. Bowel Sounds normal. MUSCULOSKELETAL: Right BKA extremities without clubbing, cyanosis or edema. NEUROLOGIC EXAM: Alert and oriented x 3 No focal sensory or strength deficits. Speech normal. Follows commands. PSYCHIATRIC: Mood normal. SKIN: Jaundice detail exam as documented in skin assessment - Constitutional Vitals: Temp Pulse Resp BP Pulse Ox 98.5 F 96 H 18 96/55 100 02/20/21 09:15 02/20/21 10:00 02/20/21 09:15 02/20/21 10:00 02/20/21 05:04 General appearance: Present: no acute distress, well-nourished Results - Labs CBC & Chem 7: 02/19/21 05:27 02/19/21 05:27 Labs: Laboratory Last Values WBC 5.2 K/mm3 (4.5-11.0) 02/19/21 05:27 RBC 2.22 M/mm3 (3.65-5.03) L 02/19/21 05:27 Hgb 7.3 gm/dl (11.8-15.2) L 02/19/21 05:27 Hct 20.7 % (35.5-45.6) L 02/19/21 05:27 MCV 93 fl (84-94) 02/19/21 05:27 MCH 33 pg (28-32) H 02/19/21 05:27 MCHC 36 % (32-34) H 02/19/21 05:27 RDW 15.5 % (13.2-15.2) H 02/19/21 05:27 Plt Count 84 K/mm3 (140-440) L 02/19/21 05:27 Lymph % (Auto) 11.2 % (13.4-35.0) L 02/19/21 05:27 [place] % (Auto) 9.2 % (0.0-7.3) H 02/19/21 05:27 Eos % (Auto) 1.9 % (0.0-4.3) 02/19/21 05:27 Baso % (Auto) 0.5 % (0.0-1.8) 02/19/21 05:27 Lymph # (Auto) 0.6 K/mm3 (1.2-5.4) L 02/19/21 05:27 [place] # (Auto) 0.5 K/mm3 (0.0-0.8) 02/19/21 05:27 Eos # (Auto) 0.1 K/mm3 (0.0-0.4) 02/19/21 05:27 Baso # (Auto) 0.0 K/mm3 (0.0-0.1) 02/19/21 05:27 Seg Neutrophils % 77.2 % (40.0-70.0) H 02/19/21 05:27 Seg Neutrophils # 4.0 K/mm3 (1.8-7.7) 02/19/21 05:27 Sodium 132 mmol/L (137-145) L 02/19/21 05:27 Potassium 4.2 mmol/L (3.6-5.0) 02/19/21 05:27 Chloride 93.4 mmol/L (98-107) L 02/19/21 05:27 Carbon Dioxide 23 mmol/L (22-30) 02/19/21 05:27 Anion Gap 20 mmol/L 02/19/21 05:27 BUN 74 mg/dL (9-20) H 02/19/21 05:27 Creatinine 7.5 mg/dL (0.8-1.3) H 02/19/21 05:27 Estimated GFR 8 ml/min 02/19/21 05:27 BUN/Creatinine Ratio 10 % 02/19/21 05:27 Glucose 305 mg/dL (75-100) H 02/19/21 05:27 POC Glucose 377 mg/dL (70-105) H 02/20/21 07:37 Calcium 8.4 mg/dL (8.4-10.2) 02/19/21 05:27 Magnesium 2.10 mg/dL (1.7-2.3) 02/17/21 02:24 Total Bilirubin 0.60 mg/dL (0.1-1.2) 02/17/21 02:24 AST 18 units/L (5-40) 02/17/21 02:24 ALT 19 units/L (7-56) 02/17/21 02:24 Alkaline Phosphatase 171 units/L (35-129) H 02/17/21 02:24 Ammonia 43.0 umol/L (25-60) 02/18/21 21:14 Total Creatine Kinase 86 units/L (55-170) 02/17/21 02:24 Total Protein 6.2 g/dL (6.3-8.2) L 02/17/21 02:24 Albumin 3.0 g/dL (3.9-5) L 02/17/21 02:24 Albumin/Globulin Ratio 0.9 % 02/17/21 02:24 TSH 0.986 mlU/mL (0.270-4.200) 02/17/21 02:24 Urine Color Yellow (Yellow) 02/17/21 Unknown Urine Turbidity Clear (Clear) 02/17/21 Unknown Urine pH 6.0 (5.0-7.0) 02/17/21 Unknown Ur Specific [place] 1.012 (1.003-1.030) 02/17/21 Unknown Urine Protein 100 mg/dl mg/dL (Negative) 02/17/21 Unknown Urine Glucose (UA) >=500 mg/dL (Negative) 02/17/21 Unknown Urine Ketones Neg mg/dL (Negative) 02/17/21 Unknown Urine Blood Neg (Negative) 02/17/21 Unknown Urine Nitrite Neg (Negative) 02/17/21 Unknown Urine Bilirubin Neg (Negative) 02/17/21 Unknown Urine Urobilinogen < 2.0 mg/dL (<2.0) 02/17/21 Unknown Ur Leukocyte Esterase Neg (Negative) 02/17/21 Unknown Urine WBC (Auto) 2.0 /HPF (0.0-6.0) 02/17/21 Unknown Urine RBC (Auto) 2.0 /HPF (0.0-6.0) 02/17/21 Unknown U Epithel Cells (Auto) < 1.0 /HPF (0-13.0) 02/17/21 Unknown Urine Bacteria (Auto) 1+ /HPF (Negative) 02/17/21 Unknown Salicylates < 0.3 mg/dL (2.8-20.0) L 02/17/21 02:24 Acetaminophen 5.0 ug/mL (10.0-30.0) L 02/17/21 02:24 Microbiology: Microbiology 02/17/21 Unknown Urine,Clean Catch Urine Culture - Final NO GROWTH AFTER 48 HOURS Sr/IV: Voiding Method Urinal Active Medications - Current Medications Current Medications: Generic Name Dose Route Start Last Admin Trade Name Freq PRN Reason Stop Dose Admin Acetaminophen 650 mg 02/18/21 22:38 02/20/21 04:59 Acetaminophen 325 Mg Tab PO 650 mg Q4H PRN Administration Pain MILD(1-3)/Fever >100.5/MOLINA Albuterol 2.5 mg 02/18/21 22:38 Albuterol 2.5 Mg/3 Ml Nebu IH Q3HRT PRN Shortness Of Breath Allopurinol 100 mg 02/20/21 10:00 Allopurinol 100 Mg Tab PO QDAY COUNTS INCLUDE 234 BEDS AT THE [facility] Calcium Acetate 1,334 mg 02/20/21 08:30 02/20/21 09:10 Calcium Acetate 667 Mg Cap PO Not Given TIDWM COUNTS INCLUDE 234 BEDS AT THE [facility] Clindamycin HCl 300 mg 02/19/21 12:00 02/20/21 06:16 Clindamycin 300 Mg Cap PO 02/24/21 06:01 300 mg Q6HR LEYLA Administration Protocol Dextrose 0 ml 02/18/21 23:00 Dextrose 50% In Water (25gm) 50 Ml Syringe IV Q30MIN PRN Hypoglycemia Protocol Famotidine 20 mg 02/19/21 10:00 02/20/21 09:11 Famotidine 20 Mg Tab PO Not Given QAM COUNTS INCLUDE 234 BEDS AT THE [facility] Heparin Sodium (Porcine) 5,000 unit 02/19/21 06:00 02/20/21 06:17 Heparin 5,000 Unit/1 Ml Vial SUB-Q Not Given Q8HR COUNTS INCLUDE 234 BEDS AT THE [facility] Hydralazine HCl 10 mg 02/18/21 22:56 Hydralazine 20 Mg/1 Ml Inj IV Q6H PRN htn Sodium Chloride 100 mls @ 999 mls/hr 02/19/21 09:06 Nacl 0.9% IV OLIVIA PRN Hypotension Insulin Glargine 30 units 02/19/21 11:00 02/19/21 23:17 Insulin Glargine 100 Units/Ml SUB-Q 30 units BID LEYLA Administration Insulin Human Lispro 0 unit 02/19/21 07:30 02/20/21 09:10 Insulin Lispro 100 Unit/Ml SUB-Q Not Given ACHS COUNTS INCLUDE 234 BEDS AT THE [facility] Protocol Lactulose 20 gm 02/17/21 03:00 02/20/21 03:55 Lactulose 20 Gm/30 Ml Oral Liqd PO 20 gm Q8H LEYLA Administration Ondansetron HCl 4 mg 02/18/21 22:38 Ondansetron 4 Mg/2 Ml Inj IV Q8H PRN Nausea And Vomiting Propranolol HCl 20 mg 02/20/21 10:00 Propranolol 10 Mg Tab PO BID LEYLA Sodium Chloride 10 ml 02/19/21 10:00 02/20/21 09:11 Sodium Chloride 0.9% 10 Ml Flush Syringe IV Not Given BID LEYLA Sodium Chloride 10 ml 02/18/21 22:38 Sodium Chloride 0.9% 10 Ml Flush Syringe IV PRN PRN LINE FLUSH Nutrition/Malnutrition Assess - Dietary Evaluation Nutrition/Malnutrition Findings: Nutrition Notes Start: 02/19/21 10:48 Freq: Status: Active Protocol: Document 02/19/21 10:48 LP (Rec: 02/19/21 11:08 LP [id number]) Nutrition Notes Need for Assessment generated from: MD Order Initial or Follow up Assessment Current Diagnosis CKD (stage V CKD),Decubitus( Pressure Ulcer),Diabetes, Hypertension Other Pertinent Diagnosis on HD, Liver dz, stage 2 sacral wound Current Diet Renal consistent CHO Labs/Tests Na 132 BUN 74 Cr 7.5 BG 305 Pertinent Medications Reviewed Height 5 ft 11 in Weight 70.307 kg [place] Body Weight (kg) 78.18 BMI 21.6 Weight Status Appropriate Subjective/Other Information Consult for diet education. Pt denies need for education. Pt states wanting more food and Nepro. Burn Absent Trauma Absent GI Symptoms None Minimum of two criteria Yes Body Fat Depletion Mild depletion (non-severe) Fluid Accumulation Mild (non-severe) #2 Nutrition Diagnosis Increased nutrient needs ( specify in comment below) Comments: protein Etiology wound healing As Evidenced by Signs and Symptoms Pt with stage 2 sacral wound #1 Nutrition Diagnosis Malnutrition Etiology chronic illness As Evidenced by Signs and Symptoms Muscle and fat mass loss, fluid accumulation Is patient on ventilator? No Is Patient Ambulatory and/or Out of Bed Yes REE-([place]. or-ambulatory/OOB) [ 2020. NUTR.MSJOOB] Kcal/Kg value to use for calculation 35 Approximate Energy Requirements Using 2461 kcal/Kg Calculation Used for Recommendations Kcal/kg Additional Notes Protein needs greater than 84g (greater than 1.2g/kg) Fluid needs are 1000-1500ml or per MD Nutrition Intervention Change Diet Order: Continue Add Supplement/Snack (indicate name/kcal Nepro TID and double portions /protein ) protein and vegetables Provides kCal: 1,275 Provides Protein (gm) 57 Goal #1 Meet at least 80% of kcal and protein needs Goal #2 Wound healing Anticipated Discharge Needs: Renal consistent CHO with Nepro BID- TID Follow-Up By: 02/21/21 Additional Comments Follow for intakes
[2021-02-20] MEDS: PROPRANOLOL 10 MG TAB PO SCH ×2 (12:47→22:01)
[2021-02-20] MEDS: INSULIN GLARGINE 100 UNITS/ML SUB-Q SCH ×2 (12:56→21:45)
[2021-02-20] MEDS: allopurinoL 100 MG TAB PO SCH (12:56)
[2021-02-21] MEDS: CLINDAMYCIN 300 MG CAP PO SCH ×5 (00:05→23:20)
--- NOTE | 2021-02-21 09:03 | Progress Note ---
Assessment and Plan 1. ESRD: Patient is on maintenance hemodialysis three times a week, MWF schedule. Meds dosage based on GFR. Missed HD 02/18. Hemodialysis: 02/19, 02/20. 2. FEN: Monitor lytes and volume status. 3. Anemia, POA: 2/2 ESRD and Liver disease. Epogen with HD. PRBC as needed. 4. Cirrhosis with h/o hepatic encephalopathy: Lactulose. Monitor. 5. DM type 2 uncontrolled: Hyperglycemia on admission. SSI. Monitor. 6. Thrombocytopenia, POA: 7. Hypertension: Monitor BP. Adjust meds as appropriate. Subjective: Patient was seen and examined at the bedside. Doing ok. General Appearance: General appearance: well-developed, appears stated age, not in distress HEENT: ATNC, pupils equal Neck: trachea midline Respiratory: ctab Heart: regular, S1S2, no murmur Abdomen: soft, bowel sounds heard, not tender Integumentary: no rash, warm and dry Neurologic: AO, conversing, able to move extremities Ext: no edema, R BKA Hemodialysis access: R arm AVF Subjective Date of service: 02/21/21 Objective - Vital Signs Vital signs: Vital Signs - 12hr 02/20/21 02/21/21 21:58 05:55 Temperature 98.3 F 98.9 F Pulse Rate 92 H 74 Respiratory 18 18 Rate Blood Pressure 119/55 102/45 O2 Sat by Pulse 98 96 Oximetry - Lab 02/19/21 05:27 02/19/21 05:27 Most recent lab results Calcium 8.4 mg/dL (8.4-10.2) 02/19/21 05:27 Magnesium 2.10 mg/dL (1.7-2.3) 02/17/21 02:24 Medications & Allergies - Medications Allergies/Adverse Reactions: Allergies No Known Allergies Allergy (Verified 02/16/21 18:26) Home Medications: Home Medications Medication Instructions Recorded Confirmed Last Taken Type Insulin Glargine [Lantus VIAL] 58 unit SUB-Q QHS 01/31/21 02/19/21 Unknown History Lispro Insulin [HumaLOG] See Protocol SQ ACHS 01/31/21 02/19/21 Unknown History Lactulose [Cephulac] 20 gm PO Q8H 30 Days oral.liqd 02/16/21 02/19/21 Unknown Rx Calcium Acetate 2 tab PO TID 02/19/21 02/19/21 Unknown History Inderal 20 mg PO BID 02/19/21 02/19/21 Unknown History allopurinoL 100 mg PO DAILY 02/19/21 02/19/21 Unknown History Active Medications: Generic Name Dose Route Start Last Admin Trade Name Freq PRN Reason Stop Dose Admin Acetaminophen 650 mg 02/18/21 22:38 02/20/21 04:59 Acetaminophen 325 Mg Tab PO 650 mg Q4H PRN Administration Pain MILD(1-3)/Fever >100.5/MOLINA Albuterol 2.5 mg 02/18/21 22:38 Albuterol 2.5 Mg/3 Ml Nebu IH Q3HRT PRN Shortness Of Breath Allopurinol 100 mg 02/20/21 10:00 02/20/21 12:56 Allopurinol 100 Mg Tab PO 100 mg QDAY LEYLA Administration Calcium Acetate 1,334 mg 02/20/21 08:30 02/20/21 17:16 Calcium Acetate 667 Mg Cap PO 1,334 mg TIDWM LEYLA Administration Clindamycin HCl 300 mg 02/19/21 12:00 02/21/21 06:37 Clindamycin 300 Mg Cap PO 02/24/21 06:01 300 mg Q6HR LEYLA Administration Protocol Dextrose 0 ml 02/18/21 23:00 Dextrose 50% In Water (25gm) 50 Ml Syringe IV Q30MIN PRN Hypoglycemia Protocol Famotidine 20 mg 02/19/21 10:00 02/20/21 09:11 Famotidine 20 Mg Tab PO Not Given QAM LEYLA Heparin Sodium (Porcine) 5,000 unit 02/19/21 06:00 02/20/21 21:46 Heparin 5,000 Unit/1 Ml Vial SUB-Q 5,000 unit Q8HR LEYLA Administration Hydralazine HCl 10 mg 02/18/21 22:56 Hydralazine 20 Mg/1 Ml Inj IV Q6H PRN htn Sodium Chloride 100 mls @ 999 mls/hr 02/19/21 09:06 Nacl 0.9% IV OLIVIA PRN Hypotension Insulin Glargine 30 units 02/19/21 11:00 02/20/21 21:45 Insulin Glargine 100 Units/Ml SUB-Q 30 units BID LEYLA Administration Insulin Human Lispro 0 unit 02/19/21 07:30 02/20/21 21:48 Insulin Lispro 100 Unit/Ml SUB-Q 8 unit ACHS LEYLA Administration Protocol Lactulose 20 gm 02/17/21 03:00 02/20/21 18:14 Lactulose 20 Gm/30 Ml Oral Liqd PO 20 gm Q8H LEYLA Administration Ondansetron HCl 4 mg 02/18/21 22:38 Ondansetron 4 Mg/2 Ml Inj IV Q8H PRN Nausea And Vomiting Propranolol HCl 20 mg 02/20/21 10:00 02/20/21 22:01 Propranolol 10 Mg Tab PO 20 mg BID LEYLA Administration Sodium Chloride 10 ml 02/19/21 10:00 02/21/21 00:06 Sodium Chloride 0.9% 10 Ml Flush Syringe IV 10 ml BID LEYLA Administration Sodium Chloride 10 ml 02/18/21 22:38 Sodium Chloride 0.9% 10 Ml Flush Syringe IV PRN PRN LINE FLUSH
[2021-02-21] MEDS: FAMOTIDINE 20 MG TAB PO SCH (09:42)
[2021-02-21] MEDS: PROPRANOLOL 10 MG TAB PO SCH ×2 (09:45→21:57)
[2021-02-21] MEDS: INSULIN GLARGINE 100 UNITS/ML SUB-Q SCH ×2 (09:51→21:54)
[2021-02-21] MEDS: INSULIN LISPRO 100 UNIT/ML SUB-Q SCH ×4 (09:56→21:55)
[2021-02-21] MEDS: CALCIUM ACETATE 667 MG CAP PO SCH ×3 (10:06→16:57)
[2021-02-21] MEDS: allopurinoL 100 MG TAB PO SCH (10:08)
[2021-02-21] MEDS: HEPARIN 5,000 UNIT/1 ML VIAL SUB-Q SCH ×3 (13:15→22:05)
[2021-02-21] MEDS: LACTULOSE 20 GM/30 ML ORAL LIQD PO SCH ×2 (13:15→21:59)
--- NOTE | 2021-02-21 13:49 | XRay Report ---
RIGHT HIP 3 VIEWS INDICATION: Pain right hip, recent surg after fall. COMPARISON: None. IMPRESSION: Limited exam. There is poor visualization of the right femoral neck on all views. There is been previous internal stabilization of the right femoral neck fracture with 3 orthopedic screws. There is suggestion of a subacute healing fracture in the right femoral neck. Please correlate with t he patient's surgical history. This could represent a healing fracture or an acute fracture. The pel karolyn bones are intact. The soft tissues are unremarkable. Signer Name: Miguel Banks Jr, MD Signed: 02/21/2021 1:44 PM Workstation Name: [id number]
--- NOTE | 2021-02-21 15:38 | Progress Note ---
Assessment and Plan Assessment and plan: 55 YO Male with ESRD on HD, Noncompliance with outpatient dialysis, Anemia, HBV, Chronic Liver Disease, Cirrhosis complicated by Esophageal Varices, HTN, Debility, DM presents to ED for evaluation. Patient is confused with diminished cognition and is unable to provide detailed history. Patient history taken from EMS staff, ED staff as well as patient family members. Patient family report the patient was "not acting like himself" and found to have worsening confusion over the past 2 days. EMS was notified and upon arrival the patient was found to be in distress and subsequent transported to [facility] for further care and evaluation of the aforementioned symptoms. The patient was seen and evaluated in the emergency department. All lab and imaging studies reviewed. The patient was found to have hepatic encephalopathy complicated by diminished cognition, end-stage renal disease in need of urgent dialysis, as well as uncontrolled diabetes, and acidosis. Nephrology team consulted in ED. During the admission referenced above is mental status is improved we did have extensive discussion about his medical condition and the need to be compliant with the lactulose he states that he was not taking the lactulose because the staff at the facility where he is at would not clean him up. He also has a sacral wound which is being monitored. Considering that he was not having significant diarrhea on the lactulose he is now agreeable to he will take it. His blood pressure was low yesterday but this was during dialysis and is improved. I do not think that this inconsiderate to consider palliative care for him due to his chronic liver disease. Will defer to case management and outpatient discussion with the patient. Otherwise will plan proceed with discharge and continued on dialysis outpatient. Return to the ER due to: As per case management documentation from February 16, 2021, patient had been accepted to [facility] program. In addition, case management received a call from a Mr. Trivedi; [phone], who had advised case management that he would receive patient back at his personal [facility]. However, at that point time, it appeared that the patient was refusing tra nsportation, and had signed himself back into the hospital. the patient presents to the ER because patient missed hemodialysis. Patient BUN is 77 creatinine 7.1 glucose 511 we consulted nephrology for hemodialysis in the morning 6/1: Resume dialysis will adjust insulin for better coverage. Very poor prognosis considering poor medical compliance. Agree with hospice recommendation. Will obtain wound care to continue to manage. Monitor anemia as patient was pretty anemic during the last hospitalization. Required transfusion. 02/20: Continues to undergo dialysis no change in mental status noted. Tolerating medications. Blood sugar mildly elevated adjusted insulin yesterday when awake for the patient received a dose today and if still elevated will adjust. Again case management is working on discharge plan for this patient as he is pending placement 02/21 patient complains of right hip pain. He said he fell few weeks ago and is concerned about another fracture. He had a fracture about 8 weeks ago and had surgery. Will obtain X ray right hip. Patient pending placement. (1) Hepatic encephalopathy Current Visit: No Status: Acute Plan to address problem: Neuro check, seizure precaution, aspiration precaution, fall precautions, continue to monitor. (2) End stage renal disease Current Visit: No Status: Acute Plan to address problem: Nephrology team consulted, strict I's/O, monitor urine output every shift, dialysis as per renal team, avoid nephrotoxic agents. (3) Metabolic Acidosis Current Visit: Yes Status: Acute Plan to address problem: BMP, repeat BMP in a.m., nephrology team consulted, dialysis as per renal team. (4) Hyponatremia Current Visit: Yes Status: Acute Plan to address problem: BMP, supportive care, repeat BMP in a.m., monitor fluid balance. (5) Hyperammonemia Current Visit: Yes Status: Acute Plan to address problem: Continue lactulose (6) diabetes mellitus with hyperglycemia (7) hyperkalemia Expect improvement with dialysis (8) sacral wound (9) Moderate Protein Calorie Malnutrition Hospitalist Physical - Physical exam Narrative exam: GENERAL: Not in acute distress, HEAD: Normocephalic, atraumatic. EYES: Pupils are equal. Extraocular motions intact. Icteric sclera EARS: Hearing grossly intact. MOUTH: Oropharynx is normal. NECK: No adenopathy, no JVD. CHEST: Chest with diminished breath sounds bilaterally. No wheezes, rales, or rhonchi. CARDIAC: Regular rate and rhythm. S1 and S2, without murmurs, gallops, or rubs. VASCULAR: No Edema. Peripheral pulses normal and equal in all extremities. ABDOMEN: Soft, non tender and non distended. No rebound or guarding, and no masses palpated. Bowel Sounds normal. MUSCULOSKELETAL: Right BKA , extremities without clubbing, cyanosis or edema. NEUROLOGIC EXAM: Alert and oriented x 3 No focal sensory or strength deficits. Speech normal. Follows commands. PSYCHIATRIC: Mood normal. - Constitutional Vitals: Temp Pulse Resp BP Pulse Ox 98.7 F 75 18 108/45 99 02/21/21 11:06 02/21/21 11:06 02/21/21 11:06 02/21/21 11:02/21/21 11:06 Results - Labs CBC & Chem 7: 02/19/21 05:27 02/19/21 05:27 Labs: Laboratory Last Values WBC 5.2 K/mm3 (4.5-11.0) 02/19/21 05:27 RBC 2.22 M/mm3 (3.65-5.03) L 02/19/21 05:27 Hgb 7.3 gm/dl (11.8-15.2) L 02/19/21 05:27 Hct 20.7 % (35.5-45.6) L 02/19/21 05:27 MCV 93 fl (84-94) 02/19/21 05:27 MCH 33 pg (28-32) H 02/19/21 05:27 MCHC 36 % (32-34) H 02/19/21 05:27 RDW 15.5 % (13.2-15.2) H 02/19/21 05:27 Plt Count 84 K/mm3 (140-440) L 02/19/21 05:27 Lymph % (Auto) 11.2 % (13.4-35.0) L 02/19/21 05:27 [place] % (Auto) 9.2 % (0.0-7.3) H 02/19/21 05:27 Eos % (Auto) 1.9 % (0.0-4.3) 02/19/21 05:27 Baso % (Auto) 0.5 % (0.0-1.8) 02/19/21 05:27 Lymph # (Auto) 0.6 K/mm3 (1.2-5.4) L 02/19/21 05:27 [place] # (Auto) 0.5 K/mm3 (0.0-0.8) 02/19/21 05:27 Eos # (Auto) 0.1 K/mm3 (0.0-0.4) 02/19/21 05:27 Baso # (Auto) 0.0 K/mm3 (0.0-0.1) 02/19/21 05:27 Seg Neutrophils % 77.2 % (40.0-70.0) H 02/19/21 05:27 Seg Neutrophils # 4.0 K/mm3 (1.8-7.7) 02/19/21 05:27 Sodium 132 mmol/L (137-145) L 02/19/21 05:27 Potassium 4.2 mmol/L (3.6-5.0) 02/19/21 05:27 Chloride 93.4 mmol/L (98-107) L 02/19/21 05:27 Carbon Dioxide 23 mmol/L (22-30) 02/19/21 05:27 Anion Gap 20 mmol/L 02/19/21 05:27 BUN 74 mg/dL (9-20) H 02/19/21 05:27 Creatinine 7.5 mg/dL (0.8-1.3) H 02/19/21 05:27 Estimated GFR 8 ml/min 02/19/21 05:27 BUN/Creatinine Ratio 10 % 02/19/21 05:27 Glucose 305 mg/dL (75-100) H 02/19/21 05:27 POC Glucose 190 mg/dL (70-105) H 02/21/21 11:06 Calcium 8.4 mg/dL (8.4-10.2) 02/19/21 05:27 Magnesium 2.10 mg/dL (1.7-2.3) 02/17/21 02:24 Total Bilirubin 0.60 mg/dL (0.1-1.2) 02/17/21 02:24 AST 18 units/L (5-40) 02/17/21 02:24 ALT 19 units/L (7-56) 02/17/21 02:24 Alkaline Phosphatase 171 units/L (35-129) H 02/17/21 02:24 Ammonia 43.0 umol/L (25-60) 02/18/21 21:14 Total Creatine Kinase 86 units/L (55-170) 02/17/21 02:24 Total Protein 6.2 g/dL (6.3-8.2) L 02/17/21 02:24 Albumin 3.0 g/dL (3.9-5) L 02/17/21 02:24 Albumin/Globulin Ratio 0.9 % 02/17/21 02:24 TSH 0.986 mlU/mL (0.270-4.200) 02/17/21 02:24 Urine Color Yellow (Yellow) 02/17/21 Unknown Urine Turbidity Clear (Clear) 02/17/21 Unknown Urine pH 6.0 (5.0-7.0) 02/17/21 Unknown Ur Specific [place] 1.012 (1.003-1.030) 02/17/21 Unknown Urine Protein 100 mg/dl mg/dL (Negative) 02/17/21 Unknown Urine Glucose (UA) >=500 mg/dL (Negative) 02/17/21 Unknown Urine Ketones Neg mg/dL (Negative) 02/17/21 Unknown Urine Blood Neg (Negative) 02/17/21 Unknown Urine Nitrite Neg (Negative) 02/17/21 Unknown Urine Bilirubin Neg (Negative) 02/17/21 Unknown Urine Urobilinogen < 2.0 mg/dL (<2.0) 02/17/21 Unknown Ur Leukocyte Esterase Neg (Negative) 02/17/21 Unknown Urine WBC (Auto) 2.0 /HPF (0.0-6.0) 02/17/21 Unknown Urine RBC (Auto) 2.0 /HPF (0.0-6.0) 02/17/21 Unknown U Epithel Cells (Auto) < 1.0 /HPF (0-13.0) 02/17/21 Unknown Urine Bacteria (Auto) 1+ /HPF (Negative) 02/17/21 Unknown Salicylates < 0.3 mg/dL (2.8-20.0) L 02/17/21 02:24 Acetaminophen 5.0 ug/mL (10.0-30.0) L 02/17/21 02:24 Coronavirus (PCR) Negative (Negative) 02/20/21 Unknown Sr/IV: Voiding Method Diaper Active Medications - Current Medications Current Medications: Generic Name Dose Route Start Last Admin Trade Name Freq PRN Reason Stop Dose Admin Acetaminophen 650 mg 02/18/21 22:38 02/20/21 04:59 Acetaminophen 325 Mg Tab PO 650 mg Q4H PRN Administration Pain MILD(1-3)/Fever >100.5/MOLINA Albuterol 2.5 mg 02/18/21 22:38 Albuterol 2.5 Mg/3 Ml Nebu IH Q3HRT PRN Shortness Of Breath Allopurinol 100 mg 02/20/21 10:00 02/21/21 10:08 Allopurinol 100 Mg Tab PO 100 mg QDAY LEYLA Administration Calcium Acetate 1,334 mg 02/20/21 08:30 02/21/21 13:15 Calcium Acetate 667 Mg Cap PO 1,334 mg TIDWM LEYLA Administration Clindamycin HCl 300 mg 02/19/21 12:00 02/21/21 13:15 Clindamycin 300 Mg Cap PO 02/24/21 06:01 300 mg Q6HR LEYLA Administration Protocol Dextrose 0 ml 02/18/21 23:00 Dextrose 50% In Water (25gm) 50 Ml Syringe IV Q30MIN PRN Hypoglycemia Protocol Famotidine 20 mg 02/19/21 10:00 02/21/21 09:42 Famotidine 20 Mg Tab PO 20 mg QAM LEYLA Administration Heparin Sodium (Porcine) 5,000 unit 02/19/21 06:00 02/21/21 13:15 Heparin 5,000 Unit/1 Ml Vial SUB-Q Not Given Q8HR LEYLA Hydralazine HCl 10 mg 02/18/21 22:56 Hydralazine 20 Mg/1 Ml Inj IV Q6H PRN htn Sodium Chloride 100 mls @ 999 mls/hr 02/19/21 09:06 Nacl 0.9% IV OLIVIA PRN Hypotension Insulin Glargine 30 units 02/19/21 11:00 02/21/21 09:51 Insulin Glargine 100 Units/Ml SUB-Q 30 units BID LEYLA Administration Insulin Human Lispro 0 unit 02/19/21 07:30 02/21/21 13:15 Insulin Lispro 100 Unit/Ml SUB-Q 2 unit ACHS LEYLA Administration Protocol Lactulose 20 gm 02/17/21 03:00 02/21/21 13:15 Lactulose 20 Gm/30 Ml Oral Liqd PO 20 gm Q8H ELYLA Administration Ondansetron HCl 4 mg 02/18/21 22:38 Ondansetron 4 Mg/2 Ml Inj IV Q8H PRN Nausea And Vomiting Propranolol HCl 20 mg 02/20/21 10:00 02/21/21 09:45 Propranolol 10 Mg Tab PO 20 mg BID LEYLA Administration Sodium Chloride 10 ml 02/19/21 10:00 02/21/21 10:06 Sodium Chloride 0.9% 10 Ml Flush Syringe IV 10 ml BID LEYLA Administration Sodium Chloride 10 ml 02/18/21 22:38 Sodium Chloride 0.9% 10 Ml Flush Syringe IV PRN PRN LINE FLUSH Nutrition/Malnutrition Assess - Dietary Evaluation Nutrition/Malnutrition Findings: Nutrition Notes Start: 02/19/21 10:48 Freq: Status: Active Protocol: Document 02/21/21 10:55 (Rec: 02/21/21 10:59 MK [id number]) Nutrition Notes Initial or Follow up Reassessment Current Diagnosis CKD (stage V CKD),Decubitus( Pressure Ulcer),Diabetes, Hypertension Other Pertinent Diagnosis on HD, Liver dz, stage 2 sacral wound Current Diet Renal consistent CHO cardiac Labs/Tests POC BG [id number] Pertinent Medications Reviewed Height 5 ft 11 in Weight 70.3 kg [place] Body Weight (kg) 78.18 BMI 21.6 Weight Status Appropriate Subjective/Other Information FU for intakes. Pt reports only wanting 1 Nepro. He states he is eating most of his meal trays and would like more Frosted Flakes. Percent of energy/protein needs met: 100%/100% Burn Absent Trauma Absent GI Symptoms None Current % PO Good (75-100%) Minimum of two criteria Yes Body Fat Depletion Mild depletion (non-severe) Fluid Accumulation Mild (non-severe) #2 Nutrition Diagnosis Increased nutrient needs ( specify in comment below) Diagnosis Progress(for reassessment Continues documentation) #1 Nutrition Diagnosis Malnutrition Diagnosis Progress(for reassessment Continues documentation) Is patient on ventilator? No Is Patient Ambulatory and/or Out of Bed Yes REE-(Stanly-St. Jeor-ambulatory/OOB) [ NUTR.MSJOOB] Kcal/Kg value to use for calculation 35 Approximate Energy Requirements Using 2461 kcal/Kg Calculation Used for Recommendations Kcal/kg Additional Notes Protein needs greater than 84g (greater than 1.2g/kg) Fluid needs are 1000-1500ml or per MD Nutrition Intervention Change Diet Order: Continue Add Supplement/Snack (indicate name/kcal Nepro daily /protein ) Provides kCal: 425 Provides Protein (gm) 19 Goal #1 Meet at least 80% of kcal and protein needs Goal #2 Wound healing Anticipated Discharge Needs: Renal consistent CHO with Nepro BID- daily Follow-Up By: 02/27/21 Additional Comments Follow for stable intakes
[2021-02-22] MEDS: CLINDAMYCIN 300 MG CAP PO SCH ×3 (05:42→17:05)
[2021-02-22] MEDS: LACTULOSE 20 GM/30 ML ORAL LIQD PO SCH ×4 (05:43→18:12)
[2021-02-22] MEDS: HEPARIN 5,000 UNIT/1 ML VIAL SUB-Q SCH ×4 (05:46→22:18)
[2021-02-22 07:57] LABS: Hematocrit 22.2 % (35.5-45.6); Hemoglobin 7.6 gm/dl (11.8-15.2)
--- NOTE | 2021-02-22 08:35 | Progress Note ---
Assessment and Plan 1. ESRD: Patient is on maintenance hemodialysis three times a week, MWF schedule. Meds dosage based on GFR. Missed HD 02/18. Hemodialysis: 02/19, 02/20. 2. FEN: Monitor lytes and volume status. 3. Anemia, POA: 2/2 ESRD and Liver disease. Epogen with HD. PRBC as needed. 4. Cirrhosis with h/o hepatic encephalopathy: Lactulose. Monitor. 5. DM type 2 uncontrolled: Hyperglycemia on admission. SSI. Monitor. 6. Thrombocytopenia, POA: 7. Hypertension: Monitor BP. Adjust meds as appropriate. Subjective: Patient was seen and examined at the bedside. Doing ok. General Appearance: General appearance: well-developed, appears stated age, not in distress HEENT: ATNC, pupils equal Neck: trachea midline Respiratory: ctab Heart: regular, S1S2, no murmur Abdomen: soft, bowel sounds heard, not tender Integumentary: no rash, warm and dry Neurologic: AO, conversing, able to move extremities Ext: no edema, R BKA Hemodialysis access: R arm AVF Subjective Date of service: 02/22/21 Objective - Vital Signs Vital signs: Vital Signs - 12hr 02/21/21 02/21/21 02/21/21 21:35 21:36 21:57 Temperature 98.0 F Pulse Rate 71 71 71 Respiratory 18 Rate Blood Pressure 107/57 107/57 O2 Sat by Pulse 100 100 Oximetry 02/22/21 05:48 Temperature 98.2 F Pulse Rate 79 Respiratory 18 Rate Blood Pressure 119/56 O2 Sat by Pulse 99 Oximetry - Lab 02/22/21 07:22 02/19/21 05:27 Most recent lab results Calcium 8.4 mg/dL (8.4-10.2) 02/19/21 05:27 Magnesium 2.10 mg/dL (1.7-2.3) 02/17/21 02:24 Medications & Allergies - Medications Allergies/Adverse Reactions: Allergies No Known Allergies Allergy (Verified 02/16/21 18:26) Home Medications: Home Medications Medication Instructions Recorded Confirmed Last Taken Type Insulin Glargine [Lantus VIAL] 58 unit SUB-Q QHS 01/31/21 02/19/21 Unknown History Lispro Insulin [HumaLOG] See Protocol SQ ACHS 01/31/21 02/19/21 Unknown History Lactulose [Cephulac] 20 gm PO Q8H 30 Days oral.liqd 02/16/21 02/19/21 Unknown Rx Calcium Acetate 2 tab PO TID 02/19/21 02/19/21 Unknown History Inderal 20 mg PO BID 02/19/21 02/19/21 Unknown History allopurinoL 100 mg PO DAILY 02/19/21 02/19/21 Unknown History Active Medications: Generic Name Dose Route Start Last Admin Trade Name Freq PRN Reason Stop Dose Admin Acetaminophen 650 mg 02/18/21 22:38 02/20/21 04:59 Acetaminophen 325 Mg Tab PO 650 mg Q4H PRN Administration Pain MILD(1-3)/Fever >100.5/MOLINA Albuterol 2.5 mg 02/18/21 22:38 Albuterol 2.5 Mg/3 Ml Nebu IH Q3HRT PRN Shortness Of Breath Allopurinol 100 mg 02/20/21 10:00 02/21/21 10:08 Allopurinol 100 Mg Tab PO 100 mg QDAY LEYLA Administration Calcium Acetate 1,334 mg 02/20/21 08:30 02/21/21 16:57 Calcium Acetate 667 Mg Cap PO 1,334 mg TIDWM LEYLA Administration Clindamycin HCl 300 mg 02/19/21 12:00 02/22/21 05:42 Clindamycin 300 Mg Cap PO 02/24/21 06:01 300 mg Q6HR LEYLA Administration Protocol Dextrose 0 ml 02/18/21 23:00 Dextrose 50% In Water (25gm) 50 Ml Syringe IV Q30MIN PRN Hypoglycemia Protocol Famotidine 20 mg 02/19/21 10:00 02/21/21 09:42 Famotidine 20 Mg Tab PO 20 mg QAM LEYLA Administration Heparin Sodium (Porcine) 5,000 unit 02/19/21 06:00 02/22/21 05:46 Heparin 5,000 Unit/1 Ml Vial SUB-Q Not Given Q8HR LEYLA Hydralazine HCl 10 mg 02/18/21 22:56 Hydralazine 20 Mg/1 Ml Inj IV Q6H PRN htn Sodium Chloride 100 mls @ 999 mls/hr 02/19/21 09:06 Nacl 0.9% IV OLIVIA PRN Hypotension Insulin Glargine 30 units 02/19/21 11:00 02/21/21 21:54 Insulin Glargine 100 Units/Ml SUB-Q 30 units BID LEYLA Administration Insulin Human Lispro 0 unit 02/19/21 07:30 02/21/21 21:55 Insulin Lispro 100 Unit/Ml SUB-Q 4 unit ACHS LEYLA Administration Protocol Lactulose 20 gm 02/17/21 03:00 02/22/21 05:43 Lactulose 20 Gm/30 Ml Oral Liqd PO 20 gm Q8H LEYLA Administration Ondansetron HCl 4 mg 02/18/21 22:38 Ondansetron 4 Mg/2 Ml Inj IV Q8H PRN Nausea And Vomiting Propranolol HCl 20 mg 02/20/21 10:00 02/21/21 21:57 Propranolol 10 Mg Tab PO 20 mg BID LEYLA Administration Sodium Chloride 10 ml 02/19/21 10:00 02/21/21 21:56 Sodium Chloride 0.9% 10 Ml Flush Syringe IV 10 ml BID LEYLA Administration Sodium Chloride 10 ml 02/18/21 22:38 Sodium Chloride 0.9% 10 Ml Flush Syringe IV PRN PRN LINE FLUSH
[2021-02-22] MEDS: INSULIN LISPRO 100 UNIT/ML SUB-Q SCH ×4 (08:56→22:23)
[2021-02-22] MEDS: CALCIUM ACETATE 667 MG CAP PO SCH ×3 (08:57→17:05)
[2021-02-22] MEDS: INSULIN GLARGINE 100 UNITS/ML SUB-Q SCH ×2 (08:59→22:26)
[2021-02-22] MEDS: PROPRANOLOL 10 MG TAB PO SCH ×2 (08:59→22:27)
[2021-02-22] MEDS: FAMOTIDINE 20 MG TAB PO SCH (08:59)
[2021-02-22] MEDS: allopurinoL 100 MG TAB PO SCH (08:59)
--- NOTE | 2021-02-22 12:50 | Progress Note ---
Assessment and Plan Assessment and plan: 55 YO Male with ESRD on HD, Noncompliance with outpatient dialysis, Anemia, HBV, Chronic Liver Disease, Cirrhosis complicated by Esophageal Varices, HTN, Debility, DM presents to ED for evaluation. Patient is confused with diminished cognition and is unable to provide detailed history. Patient history taken from EMS staff, ED staff as well as patient family members. Patient family report the patient was "not acting like himself" and found to have worsening confusion over the past 2 days. EMS was notified and upon arrival the patient was found to be in distress and subsequent transported to [facility] for further care and evaluation of the aforementioned symptoms. The patient was seen and evaluated in the emergency department. All lab and imaging studies reviewed. The patient was found to have hepatic encephalopathy complicated by diminished cognition, end-stage renal disease in need of urgent dialysis, as well as uncontrolled diabetes, and acidosis. Nephrology team consulted in ED. During the admission referenced above is mental status is improved we did have extensive discussion about his medical condition and the need to be compliant with the lactulose he states that he was not taking the lactulose because the staff at the facility where he is at would not clean him up. He also has a sacral wound which is being monitored. Considering that he was not having significant diarrhea on the lactulose he is now agreeable to he will take it. His blood pressure was low yesterday but this was during dialysis and is improved. I do not think that this inconsiderate to consider palliative care for him due to his chronic liver disease. Will defer to case management and outpatient discussion with the patient. Otherwise will plan proceed with discharge and continued on dialysis outpatient. Return to the ER due to: As per case management documentation from February 16, 2021, patient had been accepted to [facility]. In addition, case management received a call from a Mr. Trivedi; [phone], who had advised case management that he would receive patient back at his personal residential. However, at that point time, it appeared that the patient was refusing tra nsportation, and had signed himself back into the hospital. the patient presents to the ER because patient missed hemodialysis. Patient BUN is 77 creatinine 7.1 glucose 511 we consulted nephrology for hemodialysis in the morning 6/1: Resume dialysis will adjust insulin for better coverage. Very poor prognosis considering poor medical compliance. Agree with hospice recommendation. Will obtain wound care to continue to manage. Monitor anemia as patient was pretty anemic during the last hospitalization. Required transfusion. 02/20: Continues to undergo dialysis no change in mental status noted. Tolerating medications. Blood sugar mildly elevated adjusted insulin yesterday when awake for the patient received a dose today and if still elevated will adjust. Again case management is working on discharge plan for this patient as he is pending placement 02/21 patient complains of right hip pain. He said he fell few weeks ago and is concerned about another fracture. He had a fracture about 8 weeks ago and had surgery. Will obtain X ray right hip. Patient pending placement. 02/22 Patient seen in Dialysis Unit. He states hip pain improved. No other complaints. Right hip X ray done yesterday report read may be healing fracture or acute fracture. Will discuss with Orthopedic Surgeon Patient pending placement (1) Hepatic encephalopathy Current Visit: No Status: Acute Plan to address problem: Neuro check, seizure precaution, aspiration precaution, fall precautions, continue to monitor. (2) End stage renal disease Current Visit: No Status: Acute Plan to address problem: Nephrology team consulted, strict I's/O, monitor urine output every shift, dialysis as per renal team, avoid nephrotoxic agents. (3) Metabolic Acidosis Current Visit: Yes Status: Acute Plan to address problem: BMP, repeat BMP in a.m., nephrology team consulted, dialysis as per renal team. (4) Hyponatremia Current Visit: Yes Status: Acute Plan to address problem: BMP, supportive care, repeat BMP in a.m., monitor fluid balance. (5) Hyperammonemia Current Visit: Yes Status: Acute Plan to address problem: Continue lactulose (6) diabetes mellitus with hyperglycemia (7) hyperkalemia Expect improvement with dialysis (8) sacral wound (9) Moderate Protein Calorie Malnutrition History Interval history: Less pain right hip Hospitalist Physical - Physical exam Narrative exam: GENERAL: Not in acute distress, HEAD: Normocephalic, atraumatic. EYES: Pupils are equal. Extraocular motions intact. Icteric sclera EARS: Hearing grossly intact. MOUTH: Oropharynx is normal. NECK: No adenopathy, no JVD. CHEST: Chest with diminished breath sounds bilaterally. No wheezes, rales, or rhonchi. CARDIAC: Regular rate and rhythm. S1 and S2, without murmurs, gallops, or rubs. VASCULAR: No Edema. Peripheral pulses normal and equal in all extremities. ABDOMEN: Soft, non tender and non distended. No rebound or guarding, and no masses palpated. Bowel Sounds normal. MUSCULOSKELETAL: Right BKA , extremities without clubbing, cyanosis or edema. NEUROLOGIC EXAM: Alert and oriented x 3 No focal sensory or strength deficits. Speech normal. Follows commands. PSYCHIATRIC: Mood normal. - Constitutional Vitals: Temp Pulse Resp BP Pulse Ox 97.2 F L 69 20 83/47 99 02/22/21 09:15 02/22/21 12:00 02/22/21 09:15 02/22/21 12:00 02/22/21 05:48 General appearance: Present: no acute distress, well-nourished Results - Labs CBC & Chem 7: 02/22/21 07:22 02/19/21 05:27 Labs: Laboratory Last Values WBC 5.2 K/mm3 (4.5-11.0) 02/19/21 05:27 RBC 2.22 M/mm3 (3.65-5.03) L 02/19/21 05:27 Hgb 7.6 gm/dl (11.8-15.2) L 02/22/21 07:22 Hct 22.2 % (35.5-45.6) L 02/22/21 07:22 MCV 93 fl (84-94) 02/19/21 05:27 MCH 33 pg (28-32) H 02/19/21 05:27 MCHC 36 % (32-34) H 02/19/21 05:27 RDW 15.5 % (13.2-15.2) H 02/19/21 05:27 Plt Count 84 K/mm3 (140-440) L 02/19/21 05:27 Lymph % (Auto) 11.2 % (13.4-35.0) L 02/19/21 05:27 [place] % (Auto) 9.2 % (0.0-7.3) H 02/19/21 05:27 Eos % (Auto) 1.9 % (0.0-4.3) 02/19/21 05:27 Baso % (Auto) 0.5 % (0.0-1.8) 02/19/21 05:27 Lymph # (Auto) 0.6 K/mm3 (1.2-5.4) L 02/19/21 05:27 [place] # (Auto) 0.5 K/mm3 (0.0-0.8) 02/19/21 05:27 Eos # (Auto) 0.1 K/mm3 (0.0-0.4) 02/19/21 05:27 Baso # (Auto) 0.0 K/mm3 (0.0-0.1) 02/19/21 05:27 Seg Neutrophils % 77.2 % (40.0-70.0) H 02/19/21 05:27 Seg Neutrophils # 4.0 K/mm3 (1.8-7.7) 02/19/21 05:27 Sodium 132 mmol/L (137-145) L 02/19/21 05:27 Potassium 4.2 mmol/L (3.6-5.0) 02/19/21 05:27 Chloride 93.4 mmol/L (98-107) L 02/19/21 05:27 Carbon Dioxide 23 mmol/L (22-30) 02/19/21 05:27 Anion Gap 20 mmol/L 02/19/21 05:27 BUN 74 mg/dL (9-20) H 02/19/21 05:27 Creatinine 7.5 mg/dL (0.8-1.3) H 02/19/21 05:27 Estimated GFR 8 ml/min 02/19/21 05:27 BUN/Creatinine Ratio 10 % 02/19/21 05:27 Glucose 305 mg/dL (75-100) H 02/19/21 05:27 POC Glucose 308 mg/dL (70-105) H 02/22/21 07:23 Calcium 8.4 mg/dL (8.4-10.2) 02/19/21 05:27 Magnesium 2.10 mg/dL (1.7-2.3) 02/17/21 02:24 Total Bilirubin 0.60 mg/dL (0.1-1.2) 02/17/21 02:24 AST 18 units/L (5-40) 02/17/21 02:24 ALT 19 units/L (7-56) 02/17/21 02:24 Alkaline Phosphatase 171 units/L (35-129) H 02/17/21 02:24 Ammonia 43.0 umol/L (25-60) 02/18/21 21:14 Total Creatine Kinase 86 units/L (55-170) 02/17/21 02:24 Total Protein 6.2 g/dL (6.3-8.2) L 02/17/21 02:24 Albumin 3.0 g/dL (3.9-5) L 02/17/21 02:24 Albumin/Globulin Ratio 0.9 % 02/17/21 02:24 TSH 0.986 mlU/mL (0.270-4.200) 02/17/21 02:24 Urine Color Yellow (Yellow) 02/17/21 Unknown Urine Turbidity Clear (Clear) 02/17/21 Unknown Urine pH 6.0 (5.0-7.0) 02/17/21 Unknown Ur Specific [place] 1.012 (1.003-1.030) 02/17/21 Unknown Urine Protein 100 mg/dl mg/dL (Negative) 02/17/21 Unknown Urine Glucose (UA) >=500 mg/dL (Negative) 02/17/21 Unknown Urine Ketones Neg mg/dL (Negative) 02/17/21 Unknown Urine Blood Neg (Negative) 02/17/21 Unknown Urine Nitrite Neg (Negative) 02/17/21 Unknown Urine Bilirubin Neg (Negative) 02/17/21 Unknown Urine Urobilinogen < 2.0 mg/dL (<2.0) 02/17/21 Unknown Ur Leukocyte Esterase Neg (Negative) 02/17/21 Unknown Urine WBC (Auto) 2.0 /HPF (0.0-6.0) 02/17/21 Unknown Urine RBC (Auto) 2.0 /HPF (0.0-6.0) 02/17/21 Unknown U Epithel Cells (Auto) < 1.0 /HPF (0-13.0) 02/17/21 Unknown Urine Bacteria (Auto) 1+ /HPF (Negative) 02/17/21 Unknown Salicylates < 0.3 mg/dL (2.8-20.0) L 02/17/21 02:24 Acetaminophen 5.0 ug/mL (10.0-30.0) L 02/17/21 02:24 Coronavirus (PCR) Negative (Negative) 02/20/21 Unknown Sr/IV: Voiding Method Bedpan Active Medications - Current Medications Current Medications: Generic Name Dose Route Start Last Admin Trade Name Freq PRN Reason Stop Dose Admin Acetaminophen 650 mg 02/18/21 22:38 02/20/21 04:59 Acetaminophen 325 Mg Tab PO 650 mg Q4H PRN Administration Pain MILD(1-3)/Fever >100.5/MOLINA Albuterol 2.5 mg 02/18/21 22:38 Albuterol 2.5 Mg/3 Ml Nebu IH Q3HRT PRN Shortness Of Breath Allopurinol 100 mg 02/20/21 10:00 02/22/21 08:59 Allopurinol 100 Mg Tab PO 100 mg QDAY LEYLA Administration Calcium Acetate 1,334 mg 02/20/21 08:30 02/22/21 08:57 Calcium Acetate 667 Mg Cap PO 1,334 mg TIDWM LEYLA Administration Clindamycin HCl 300 mg 02/19/21 12:00 02/22/21 05:42 Clindamycin 300 Mg Cap PO 02/24/21 06:01 300 mg Q6HR LEYLA Administration Protocol Dextrose 0 ml 02/18/21 23:00 Dextrose 50% In Water (25gm) 50 Ml Syringe IV Q30MIN PRN Hypoglycemia Protocol Famotidine 20 mg 02/19/21 10:00 02/22/21 08:59 Famotidine 20 Mg Tab PO 20 mg QAM LEYLA Administration Heparin Sodium (Porcine) 5,000 unit 02/19/21 06:00 02/22/21 05:46 Heparin 5,000 Unit/1 Ml Vial SUB-Q Not Given Q8HR LEYLA Hydralazine HCl 10 mg 02/18/21 22:56 Hydralazine 20 Mg/1 Ml Inj IV Q6H PRN htn Sodium Chloride 100 mls @ 999 mls/hr 02/19/21 09:06 Nacl 0.9% IV OLIVIA PRN Hypotension Insulin Glargine 30 units 02/19/21 11:00 02/22/21 08:59 Insulin Glargine 100 Units/Ml SUB-Q 30 units BID LEYLA Administration Insulin Human Lispro 0 unit 02/19/21 07:30 02/22/21 08:56 Insulin Lispro 100 Unit/Ml SUB-Q 6 unit ACHS LEYLA Administration Protocol Lactulose 20 gm 02/17/21 03:00 02/22/21 05:43 Lactulose 20 Gm/30 Ml Oral Liqd PO 20 gm Q8H LEYLA Administration Ondansetron HCl 4 mg 02/18/21 22:38 Ondansetron 4 Mg/2 Ml Inj IV Q8H PRN Nausea And Vomiting Propranolol HCl 20 mg 02/20/21 10:00 02/22/21 08:59 Propranolol 10 Mg Tab PO 20 mg BID LEYLA Administration Sodium Chloride 10 ml 02/19/21 10:00 02/22/21 09:00 Sodium Chloride 0.9% 10 Ml Flush Syringe IV 10 ml BID LEYLA Administration Sodium Chloride 10 ml 02/18/21 22:38 Sodium Chloride 0.9% 10 Ml Flush Syringe IV PRN PRN LINE FLUSH Nutrition/Malnutrition Assess - Dietary Evaluation Nutrition/Malnutrition Findings: Nutrition Notes Start: 02/19/21 10:48 Freq: Status: Active Protocol: Document 02/21/21 10:55 (Rec: 02/21/21 10:59 [id number]) Nutrition Notes Initial or Follow up Reassessment Current Diagnosis CKD (stage V CKD),Decubitus( Pressure Ulcer),Diabetes, Hypertension Other Pertinent Diagnosis on HD, Liver dz, stage 2 sacral wound Current Diet Renal consistent CHO cardiac Labs/Tests POC BG [id number] Pertinent Medications Reviewed Height 5 ft 11 in Weight 70.3 kg [place] Body Weight (kg) 78.18 BMI 21.6 Weight Status Appropriate Subjective/Other Information FU for intakes. Pt reports only wanting 1 Nepro. He states he is eating most of his meal trays and would like more Frosted Flakes. Percent of energy/protein needs met: 100%/100% Burn Absent Trauma Absent GI Symptoms None Current % PO Good (75-100%) Minimum of two criteria Yes Body Fat Depletion Mild depletion (non-severe) Fluid Accumulation Mild (non-severe) #2 Nutrition Diagnosis Increased nutrient needs ( specify in comment below) Diagnosis Progress(for reassessment Continues documentation) #1 Nutrition Diagnosis Malnutrition Diagnosis Progress(for reassessment Continues documentation) Is patient on ventilator? No Is Patient Ambulatory and/or Out of Bed Yes REE-([place]-St. Jeor-ambulatory/OOB) [ [id number]] Kcal/Kg value to use for calculation 35 Approximate Energy Requirements Using 2461 kcal/Kg Calculation Used for Recommendations Kcal/kg Additional Notes Protein needs greater than 84g (greater than 1.2g/kg) Fluid needs are 1000-1500ml or per MD Nutrition Intervention Change Diet Order: Continue Add Supplement/Snack (indicate name/kcal Nepro daily /protein ) Provides kCal: 425 Provides Protein (gm) 19 Goal #1 Meet at least 80% of kcal and protein needs Goal #2 Wound healing Anticipated Discharge Needs: Renal consistent CHO with Nepro BID- daily Follow-Up By: 02/27/21 Additional Comments Follow for stable intakes
[2021-02-23] MEDS: CLINDAMYCIN 300 MG CAP PO SCH ×4 (00:38→17:35)
[2021-02-23] MEDS: LACTULOSE 20 GM/30 ML ORAL LIQD PO SCH ×3 (04:13→20:37)
[2021-02-23] MEDS: HEPARIN 5,000 UNIT/1 ML VIAL SUB-Q SCH ×3 (05:50→22:05)
[2021-02-23] MEDS: INSULIN LISPRO 100 UNIT/ML SUB-Q SCH ×4 (08:20→22:04)
[2021-02-23] MEDS: CALCIUM ACETATE 667 MG CAP PO SCH ×3 (08:21→17:35)
[2021-02-23] MEDS: INSULIN GLARGINE 100 UNITS/ML SUB-Q SCH ×2 (09:17→22:03)
[2021-02-23] MEDS: diphenhydrAMINE 25 MG CAP PO PRN ×2 (09:32→22:04)
[2021-02-23] MEDS: allopurinoL 100 MG TAB PO SCH (09:32)
[2021-02-23] MEDS: FAMOTIDINE 20 MG TAB PO SCH (09:33)
[2021-02-23] MEDS: PROPRANOLOL 10 MG TAB PO SCH ×2 (09:34→21:58)
--- NOTE | 2021-02-23 10:08 | Progress Note ---
Assessment and Plan Assessment and plan: 55 YO Male with ESRD on HD, Noncompliance with outpatient dialysis, Anemia, HBV, Chronic Liver Disease, Cirrhosis complicated by Esophageal Varices, HTN, Debility, DM presents to ED for evaluation. Patient is confused with diminished cognition and is unable to provide detailed history. Patient history taken from EMS staff, ED staff as well as patient family members. Patient family report the patient was "not acting like himself" and found to have worsening confusion over the past 2 days. EMS was notified and upon arrival the patient was found to be in distress and subsequent transported to [facility] for further care and evaluation of the aforementioned symptoms. The patient was seen and evaluated in the emergency department. All lab and imaging studies reviewed. The patient was found to have hepatic encephalopathy complicated by diminished cognition, end-stage renal disease in need of urgent dialysis, as well as uncontrolled diabetes, and acidosis. Nephrology team consulted in ED. During the admission referenced above is mental status is improved we did have extensive discussion about his medical condition and the need to be compliant with the lactulose he states that he was not taking the lactulose because the staff at the facility where he is at would not clean him up. He also has a sacral wound which is being monitored. Considering that he was not having significant diarrhea on the lactulose he is now agreeable to he will take it. His blood pressure was low yesterday but this was during dialysis and is improved. I do not think that this inconsiderate to consider palliative care for him due to his chronic liver disease. Will defer to case management and outpatient discussion with the patient. Otherwise will plan proceed with discharge and continued on dialysis outpatient. Return to the ER due to: As per case management documentation from February 16, 2021, patient had been accepted to [facility]. In addition, case management received a call from a Mr. Trivedi; [phone], who had advised case management that he would receive patient back at his personal [place] [facility]. However, at that point time, it appeared that the patient was refusing tra nsportation, and had signed himself back into the hospital. the patient presents to the ER because patient missed hemodialysis. Patient BUN is 77 creatinine 7.1 glucose 511 we consulted nephrology for hemodialysis in the morning 6/1: Resume dialysis will adjust insulin for better coverage. Very poor prognosis considering poor medical compliance. Agree with hospice recommendation. Will obtain wound care to continue to manage. Monitor anemia as patient was pretty anemic during the last hospitalization. Required transfusion. 02/20: Continues to undergo dialysis no change in mental status noted. Tolerating medications. Blood sugar mildly elevated adjusted insulin yesterday when awake for the patient received a dose today and if still elevated will adjust. Again case management is working on discharge plan for this patient as he is pending placement 02/21 patient complains of right hip pain. He said he fell few weeks ago and is concerned about another fracture. He had a fracture about 8 weeks ago and had surgery. Will obtain X ray right hip. Patient pending placement. 02/22 Patient seen in Dialysis Unit. He states hip pain improved. No other complaints. Right hip X ray done yesterday report read may be healing fracture or acute fracture. Will discuss with Orthopedic Surgeon Patient pending placement 02/23 Less hip pain. Today complains of generalized itching. Will start Benadryl po prn. Orthopedic consulted to evaluate right hip. Patient pending placement (1) Hepatic encephalopathy Current Visit: No Status: Acute Plan to address problem: Neuro check, seizure precaution, aspiration precaution, fall precautions, continue to monitor. (2) End stage renal disease Current Visit: No Status: Acute Plan to address problem: Nephrology team consulted, strict I's/O, monitor urine output every shift, dialysis as per renal team, avoid nephrotoxic agents. (3) Metabolic Acidosis Current Visit: Yes Status: Acute Plan to address problem: BMP, repeat BMP in a.m., nephrology team consulted, dialysis as per renal team. (4) Hyponatremia Current Visit: Yes Status: Acute Plan to address problem: BMP, supportive care, repeat BMP in a.m., monitor fluid balance. (5) Hyperammonemia Current Visit: Yes Status: Acute Plan to address problem: Continue lactulose (6) diabetes mellitus with hyperglycemia (7) hyperkalemia Expect improvement with dialysis (8) sacral wound (9) Moderate Protein Calorie Malnutrition History Interval history: Less pain right hip Gen itching Hospitalist Physical - Physical exam Narrative exam: GENERAL: Not in acute distress, HEAD: Normocephalic, atraumatic. EYES: Pupils are equal. Extraocular motions intact. Icteric sclera EARS: Hearing grossly intact. MOUTH: Oropharynx is normal. NECK: No adenopathy, no JVD. CHEST: Chest with diminished breath sounds bilaterally. No wheezes, rales, or rhonchi. CARDIAC: Regular rate and rhythm. S1 and S2, without murmurs, gallops, or rubs. VASCULAR: No Edema. Peripheral pulses normal and equal in all extremities. ABDOMEN: Soft, non tender and non distended. No rebound or guarding, and no masses palpated. Bowel Sounds normal. MUSCULOSKELETAL: Right BKA , extremities without clubbing, cyanosis or edema. NEUROLOGIC EXAM: Alert and oriented x 3 No focal sensory or strength deficits. Speech normal. Follows commands. PSYCHIATRIC: Mood normal. - Constitutional Vitals: Temp Pulse Resp BP Pulse Ox 97.9 F 82 16 94/39 97 02/23/21 09:59 02/23/21 09:59 02/23/21 09:59 02/23/21 09:59 02/23/21 09:59 General appearance: Present: no acute distress, well-nourished Results - Labs CBC & Chem 7: 02/22/21 07:22 02/19/21 05:27 Labs: Laboratory Last Values WBC 5.2 K/mm3 (4.5-11.0) 02/19/21 05:27 RBC 2.22 M/mm3 (3.65-5.03) L 02/19/21 05:27 Hgb 7.6 gm/dl (11.8-15.2) L 02/22/21 07:22 Hct 22.2 % (35.5-45.6) L 02/22/21 07:22 MCV 93 fl (84-94) 02/19/21 05:27 MCH 33 pg (28-32) H 02/19/21 05:27 MCHC 36 % (32-34) H 02/19/21 05:27 RDW 15.5 % (13.2-15.2) H 02/19/21 05:27 Plt Count 84 K/mm3 (140-440) L 02/19/21 05:27 Lymph % (Auto) 11.2 % (13.4-35.0) L 02/19/21 05:27 Bee % (Auto) 9.2 % (0.0-7.3) H 02/19/21 05:27 Eos % (Auto) 1.9 % (0.0-4.3) 02/19/21 05:27 Baso % (Auto) 0.5 % (0.0-1.8) 02/19/21 05:27 Lymph # (Auto) 0.6 K/mm3 (1.2-5.4) L 02/19/21 05:27 Bee # (Auto) 0.5 K/mm3 (0.0-0.8) 02/19/21 05:27 Eos # (Auto) 0.1 K/mm3 (0.0-0.4) 02/19/21 05:27 Baso # (Auto) 0.0 K/mm3 (0.0-0.1) 02/19/21 05:27 Seg Neutrophils % 77.2 % (40.0-70.0) H 02/19/21 05:27 Seg Neutrophils # 4.0 K/mm3 (1.8-7.7) 02/19/21 05:27 Sodium 132 mmol/L (137-145) L 02/19/21 05:27 Potassium 4.2 mmol/L (3.6-5.0) 02/19/21 05:27 Chloride 93.4 mmol/L (98-107) L 02/19/21 05:27 Carbon Dioxide 23 mmol/L (22-30) 02/19/21 05:27 Anion Gap 20 mmol/L 02/19/21 05:27 BUN 74 mg/dL (9-20) H 02/19/21 05:27 Creatinine 7.5 mg/dL (0.8-1.3) H 02/19/21 05:27 Estimated GFR 8 ml/min 02/19/21 05:27 BUN/Creatinine Ratio 10 % 02/19/21 05:27 Glucose 305 mg/dL (75-100) H 02/19/21 05:27 POC Glucose 353 mg/dL (70-105) H 02/22/21 22:13 Calcium 8.4 mg/dL (8.4-10.2) 02/19/21 05:27 Magnesium 2.10 mg/dL (1.7-2.3) 02/17/21 02:24 Total Bilirubin 0.60 mg/dL (0.1-1.2) 02/17/21 02:24 AST 18 units/L (5-40) 02/17/21 02:24 ALT 19 units/L (7-56) 02/17/21 02:24 Alkaline Phosphatase 171 units/L (35-129) H 02/17/21 02:24 Ammonia 43.0 umol/L (25-60) 02/18/21 21:14 Total Creatine Kinase 86 units/L (55-170) 02/17/21 02:24 Total Protein 6.2 g/dL (6.3-8.2) L 02/17/21 02:24 Albumin 3.0 g/dL (3.9-5) L 02/17/21 02:24 Albumin/Globulin Ratio 0.9 % 02/17/21 02:24 TSH 0.986 mlU/mL (0.270-4.200) 02/17/21 02:24 Urine Color Yellow (Yellow) 02/17/21 Unknown Urine Turbidity Clear (Clear) 02/17/21 Unknown Urine pH 6.0 (5.0-7.0) 02/17/21 Unknown Ur Specific [place] 1.012 (1.003-1.030) 02/17/21 Unknown Urine Protein 100 mg/dl mg/dL (Negative) 02/17/21 Unknown Urine Glucose (UA) >=500 mg/dL (Negative) 02/17/21 Unknown Urine Ketones Neg mg/dL (Negative) 02/17/21 Unknown Urine Blood Neg (Negative) 02/17/21 Unknown Urine Nitrite Neg (Negative) 02/17/21 Unknown Urine Bilirubin Neg (Negative) 02/17/21 Unknown Urine Urobilinogen < 2.0 mg/dL (<2.0) 02/17/21 Unknown Ur Leukocyte Esterase Neg (Negative) 02/17/21 Unknown Urine WBC (Auto) 2.0 /HPF (0.0-6.0) 02/17/21 Unknown Urine RBC (Auto) 2.0 /HPF (0.0-6.0) 02/17/21 Unknown U Epithel Cells (Auto) < 1.0 /HPF (0-13.0) 02/17/21 Unknown Urine Bacteria (Auto) 1+ /HPF (Negative) 02/17/21 Unknown Salicylates < 0.3 mg/dL (2.8-20.0) L 02/17/21 02:24 Acetaminophen 5.0 ug/mL (10.0-30.0) L 02/17/21 02:24 Coronavirus (PCR) Negative (Negative) 02/20/21 Unknown Sr/IV: Voiding Method Bedpan Active Medications - Current Medications Current Medications: Generic Name Dose Route Start Last Admin Trade Name Freq PRN Reason Stop Dose Admin Acetaminophen 650 mg 02/18/21 22:38 02/20/21 04:59 Acetaminophen 325 Mg Tab PO 650 mg Q4H PRN Administration Pain MILD(1-3)/Fever >100.5/MOLINA Albuterol 2.5 mg 02/18/21 22:38 Albuterol 2.5 Mg/3 Ml Nebu IH Q3HRT PRN Shortness Of Breath Allopurinol 100 mg 02/20/21 10:00 02/23/21 09:32 Allopurinol 100 Mg Tab PO 100 mg QDAY LEYLA Administration Calcium Acetate 1,334 mg 02/20/21 08:30 02/23/21 08:21 Calcium Acetate 667 Mg Cap PO 1,334 mg TIDWM LEYLA Administration Clindamycin HCl 300 mg 02/19/21 12:00 02/23/21 05:51 Clindamycin 300 Mg Cap PO 02/24/21 06:01 300 mg Q6HR LEYLA Administration Protocol Dextrose 0 ml 02/18/21 23:00 Dextrose 50% In Water (25gm) 50 Ml Syringe IV Q30MIN PRN Hypoglycemia Protocol Diphenhydramine HCl 25 mg 02/23/21 09:10 02/23/21 09:32 Diphenhydramine 25 Mg Cap PO 25 mg BID PRN Administration Itching Famotidine 20 mg 02/19/21 10:00 02/23/21 09:33 Famotidine 20 Mg Tab PO 20 mg QAM LEYLA Administration Heparin Sodium (Porcine) 5,000 unit 02/19/21 06:00 02/23/21 05:50 Heparin 5,000 Unit/1 Ml Vial SUB-Q 5,000 unit Q8HR LEYLA Administration Hydralazine HCl 10 mg 02/18/21 22:56 Hydralazine 20 Mg/1 Ml Inj IV Q6H PRN htn Sodium Chloride 100 mls @ 999 mls/hr 02/19/21 09:06 Nacl 0.9% IV OLIVIA PRN Hypotension Insulin Glargine 30 units 02/19/21 11:00 02/23/21 09:17 Insulin Glargine 100 Units/Ml SUB-Q Not Given BID [facility] Insulin Human Lispro 0 unit 02/19/21 07:30 02/23/21 08:20 Insulin Lispro 100 Unit/Ml SUB-Q 2 unit ACHS LEYLA Administration Protocol Lactulose 20 gm 02/17/21 03:00 02/23/21 04:13 Lactulose 20 Gm/30 Ml Oral Liqd PO Not Given Q8H LEYLA Ondansetron HCl 4 mg 02/18/21 22:38 Ondansetron 4 Mg/2 Ml Inj IV Q8H PRN Nausea And Vomiting Propranolol HCl 20 mg 02/20/21 10:00 02/23/21 09:34 Propranolol 10 Mg Tab PO Not Given BID LEYLA Sodium Chloride 10 ml 02/19/21 10:00 02/23/21 09:34 Sodium Chloride 0.9% 10 Ml Flush Syringe IV 10 ml BID LEYLA Administration Sodium Chloride 10 ml 02/18/21 22:38 Sodium Chloride 0.9% 10 Ml Flush Syringe IV PRN PRN LINE FLUSH Nutrition/Malnutrition Assess - Dietary Evaluation Nutrition/Malnutrition Findings: Nutrition Notes Start: 02/19/21 10:48 Freq: Status: Active Protocol: Document 02/21/21 10:55 (Rec: 02/21/21 10:59 [id number]) Nutrition Notes Initial or Follow up Reassessment Current Diagnosis CKD (stage V CKD),Decubitus( Pressure Ulcer),Diabetes, Hypertension Other Pertinent Diagnosis on HD, Liver dz, stage 2 sacral wound Current Diet Renal consistent CHO cardiac Labs/Tests POC BG [id number] Pertinent Medications Reviewed Height 5 ft 11 in Weight 70.3 kg [place] Body Weight (kg) 78.18 BMI 21.6 Weight Status Appropriate Subjective/Other Information FU for intakes. Pt reports only wanting 1 Nepro. He states he is eating most of his meal trays and would like more Frosted Flakes. Percent of energy/protein needs met: 100%/100% Burn Absent Trauma Absent GI Symptoms None Current % PO Good (75-100%) Minimum of two criteria Yes Body Fat Depletion Mild depletion (non-severe) Fluid Accumulation Mild (non-severe) #2 Nutrition Diagnosis Increased nutrient needs ( specify in comment below) Diagnosis Progress(for reassessment Continues documentation) #1 Nutrition Diagnosis Malnutrition Diagnosis Progress(for reassessment Continues documentation) Is patient on ventilator? No Is Patient Ambulatory and/or Out of Bed Yes REE-(Ceiba-St. Jeor-ambulatory/OOB) [ NUTR.MSJOOB] Kcal/Kg value to use for calculation 35 Approximate Energy Requirements Using 2461 kcal/Kg Calculation Used for Recommendations Kcal/kg Additional Notes Protein needs greater than 84g (greater than 1.2g/kg) Fluid needs are 1000-1500ml or per MD Nutrition Intervention Change Diet Order: Continue Add Supplement/Snack (indicate name/kcal Nepro daily /protein ) Provides kCal: 425 Provides Protein (gm) 19 Goal #1 Meet at least 80% of kcal and protein needs Goal #2 Wound healing Anticipated Discharge Needs: Renal consistent CHO with Nepro BID- daily Follow-Up By: 02/27/21 Additional Comments Follow for stable intakes
--- NOTE | 2021-02-23 14:32 | Progress Note ---
Assessment and Plan 1. ESRD: Patient is on maintenance hemodialysis three times a week, MWF schedule. Meds dosage based on GFR. Missed HD 02/18. Hemodialysis: 02/19, 02/20, 02/22. 2. FEN: Monitor lytes and volume status. 3. Anemia, POA: 2/2 ESRD and Liver disease. Epogen with HD. PRBC as needed. 4. Cirrhosis with h/o hepatic encephalopathy: Lactulose. Monitor. 5. DM type 2 uncontrolled: Hyperglycemia on admission. SSI. Monitor. 6. Thrombocytopenia, POA: 7. Hypertension: Monitor BP. Adjust meds as appropriate. Subjective: Patient was seen and examined at the bedside. Doing ok. General Appearance: General appearance: well-developed, appears stated age, not in distress HEENT: ATNC, pupils equal Neck: trachea midline Respiratory: ctab Heart: regular, S1S2, no murmur Abdomen: soft, bowel sounds heard, not tender Integumentary: no rash, warm and dry Neurologic: AO, conversing, able to move extremities Ext: no edema, R BKA Hemodialysis access: R arm AVF Subjective Date of service: 02/23/21 Objective - Vital Signs Vital signs: Vital Signs - 12hr 02/23/21 02/23/21 02/23/21 05:50 09:34 09:59 Temperature 97.6 F 97.9 F Pulse Rate 78 82 82 Respiratory 16 16 Rate Blood Pressure 105/47 94/39 Blood Pressure 94/39 [Right] O2 Sat by Pulse 97 97 Oximetry 02/23/21 11:27 Temperature Pulse Rate 82 Respiratory 16 Rate Blood Pressure Blood Pressure 111/69 [Right] O2 Sat by Pulse 98 Oximetry - Lab 02/22/21 07:22 02/19/21 05:27 Most recent lab results Calcium 8.4 mg/dL (8.4-10.2) 02/19/21 05:27 Magnesium 2.10 mg/dL (1.7-2.3) 02/17/21 02:24 Medications & Allergies - Medications Allergies/Adverse Reactions: Allergies No Known Allergies Allergy (Verified 02/16/21 18:26) Home Medications: Home Medications Medication Instructions Recorded Confirmed Last Taken Type Insulin Glargine [Lantus VIAL] 58 unit SUB-Q QHS 01/31/21 02/19/21 Unknown History Lispro Insulin [HumaLOG] See Protocol SQ ACHS 01/31/21 02/19/21 Unknown History Lactulose [Cephulac] 20 gm PO Q8H 30 Days oral.liqd 02/16/21 02/19/21 Unknown Rx Calcium Acetate 2 tab PO TID 02/19/21 02/19/21 Unknown History Inderal 20 mg PO BID 02/19/21 02/19/21 Unknown History allopurinoL 100 mg PO DAILY 02/19/21 02/19/21 Unknown History Active Medications: Generic Name Dose Route Start Last Admin Trade Name Freq PRN Reason Stop Dose Admin Acetaminophen 650 mg 02/18/21 22:38 02/20/21 04:59 Acetaminophen 325 Mg Tab PO 650 mg Q4H PRN Administration Pain MILD(1-3)/Fever >100.5/MOLINA Albuterol 2.5 mg 02/18/21 22:38 Albuterol 2.5 Mg/3 Ml Nebu IH Q3HRT PRN Shortness Of Breath Allopurinol 100 mg 02/20/21 10:00 02/23/21 09:32 Allopurinol 100 Mg Tab PO 100 mg QDAY LEYLA Administration Calcium Acetate 1,334 mg 02/20/21 08:30 02/23/21 12:28 Calcium Acetate 667 Mg Cap PO 1,334 mg TIDWM LEYLA Administration Clindamycin HCl 300 mg 02/19/21 12:00 02/23/21 12:28 Clindamycin 300 Mg Cap PO 02/24/21 06:01 300 mg Q6HR LEYLA Administration Protocol Dextrose 0 ml 02/18/21 23:00 Dextrose 50% In Water (25gm) 50 Ml Syringe IV Q30MIN PRN Hypoglycemia Protocol Diphenhydramine HCl 25 mg 02/23/21 09:10 02/23/21 09:32 Diphenhydramine 25 Mg Cap PO 25 mg BID PRN Administration Itching Famotidine 20 mg 02/19/21 10:00 02/23/21 09:33 Famotidine 20 Mg Tab PO 20 mg QAM LEYLA Administration Heparin Sodium (Porcine) 5,000 unit 02/19/21 06:00 02/23/21 05:50 Heparin 5,000 Unit/1 Ml Vial SUB-Q 5,000 unit Q8HR LEYLA Administration Hydralazine HCl 10 mg 02/18/21 22:56 Hydralazine 20 Mg/1 Ml Inj IV Q6H PRN htn Sodium Chloride 100 mls @ 999 mls/hr 02/19/21 09:06 Nacl 0.9% IV OLIVIA PRN Hypotension Insulin Glargine 30 units 02/19/21 11:00 02/23/21 09:17 Insulin Glargine 100 Units/Ml SUB-Q Not Given BID LEYLA Insulin Human Lispro 0 unit 02/19/21 07:30 02/23/21 12:27 Insulin Lispro 100 Unit/Ml SUB-Q 4 unit ACHS LEYLA Administration Protocol Lactulose 20 gm 02/17/21 03:00 02/23/21 12:28 Lactulose 20 Gm/30 Ml Oral Liqd PO 20 gm Q8H LEYLA Administration Ondansetron HCl 4 mg 02/18/21 22:38 Ondansetron 4 Mg/2 Ml Inj IV Q8H PRN Nausea And Vomiting Propranolol HCl 20 mg 02/20/21 10:00 02/23/21 09:34 Propranolol 10 Mg Tab PO Not Given BID LEYLA Sodium Chloride 10 ml 02/19/21 10:00 02/23/21 09:34 Sodium Chloride 0.9% 10 Ml Flush Syringe IV 10 ml BID LEYLA Administration Sodium Chloride 10 ml 02/18/21 22:38 Sodium Chloride 0.9% 10 Ml Flush Syringe IV PRN PRN LINE FLUSH
[2021-02-23] MEDS: ACETAMINOPHEN 325 MG TAB PO PRN (17:36)
[2021-02-23] MEDS: ONDANSETRON 4 MG/2 ML INJ IV PRN (22:01)
[2021-02-24] MEDS: CLINDAMYCIN 300 MG CAP PO SCH ×2 (00:06→05:44)
[2021-02-24] MEDS: LACTULOSE 20 GM/30 ML ORAL LIQD PO SCH ×3 (04:13→22:05)
[2021-02-24] MEDS: HEPARIN 5,000 UNIT/1 ML VIAL SUB-Q SCH ×3 (05:44→22:11)
[2021-02-24] MEDS: INSULIN LISPRO 100 UNIT/ML SUB-Q SCH ×4 (08:32→22:35)
[2021-02-24] MEDS: CALCIUM ACETATE 667 MG CAP PO SCH ×3 (08:32→18:10)
--- NOTE | 2021-02-24 09:54 | Progress Note ---
Assessment and Plan Assessment and plan: 55 YO Male with ESRD on HD, Noncompliance with outpatient dialysis, Anemia, HBV, Chronic Liver Disease, Cirrhosis complicated by Esophageal Varices, HTN, Debility, DM presents to ED for evaluation. Patient is confused with diminished cognition and is unable to provide detailed history. Patient history taken from EMS staff, ED staff as well as patient family members. Patient family report the patient was "not acting like himself" and found to have worsening confusion over the past 2 days. EMS was notified and upon arrival the patient was found to be in distress and subsequent transported to [facility] for further care and evaluation of the aforementioned symptoms. The patient was seen and evaluated in the emergency department. All lab and imaging studies reviewed. The patient was found to have hepatic encephalopathy complicated by diminished cognition, end-stage renal disease in need of urgent dialysis, as well as uncontrolled diabetes, and acidosis. Nephrology team consulted in ED. During the admission referenced above is mental status is improved we did have extensive discussion about his medical condition and the need to be compliant with the lactulose he states that he was not taking the lactulose because the staff at the facility where he is at would not clean him up. He also has a sacral wound which is being monitored. Considering that he was not having significant diarrhea on the lactulose he is now agreeable to he will take it. His blood pressure was low yesterday but this was during dialysis and is improved. I do not think that this inconsiderate to consider palliative care for him due to his chronic liver disease. Will defer to case management and outpatient discussion with the patient. Otherwise will plan proceed with discharge and continued on dialysis outpatient. Return to the ER due to: As per case management documentation from February 16, 2021, patient had been accepted to [facility]. In addition, case management received a call from a Mr. Trivedi; [phone], who had advised case management that he would receive patient back at his personal long term. However, at that point time, it appeared that the patient was refusing tra nsportation, and had signed himself back into the hospital. the patient presents to the ER because patient missed hemodialysis. Patient BUN is 77 creatinine 7.1 glucose 511 we consulted nephrology for hemodialysis in the morning 6/1: Resume dialysis will adjust insulin for better coverage. Very poor prognosis considering poor medical compliance. Agree with hospice recommendation. Will obtain wound care to continue to manage. Monitor anemia as patient was pretty anemic during the last hospitalization. Required transfusion. 02/20: Continues to undergo dialysis no change in mental status noted. Tolerating medications. Blood sugar mildly elevated adjusted insulin yesterday when awake for the patient received a dose today and if still elevated will adjust. Again case management is working on discharge plan for this patient as he is pending placement 02/21 patient complains of right hip pain. He said he fell few weeks ago and is concerned about another fracture. He had a fracture about 8 weeks ago and had surgery. Will obtain X ray right hip. Patient pending placement. 02/22 Patient seen in Dialysis Unit. He states hip pain improved. No other complaints. Right hip X ray done yesterday report read may be healing fracture or acute fracture. Will discuss with Orthopedic Surgeon Patient pending placement 02/23 Less hip pain. Today complains of generalized itching. Will start Benadryl po prn. Orthopedic consulted to evaluate right hip. Patient pending placement 02/24 Less hip pain. Generalized itching now resolved. Orthopedic consulted to evaluate right hip. He complains of sleeplessness. Will give Ambien prn Patient pending placement (1) Hepatic encephalopathy Current Visit: No Status: Acute Plan to address problem: Neuro check, seizure precaution, aspiration precaution, fall precautions, continue to monitor. (2) End stage renal disease Current Visit: No Status: Acute Plan to address problem: Nephrology team consulted, strict I's/O, monitor urine output every shift, dialysis as per renal team, avoid nephrotoxic agents. (3) Metabolic Acidosis Current Visit: Yes Status: Acute Plan to address problem: BMP, repeat BMP in a.m., nephrology team consulted, dialysis as per renal team. (4) Hyponatremia Current Visit: Yes Status: Acute Plan to address problem: BMP, supportive care, repeat BMP in a.m., monitor fluid balance. (5) Hyperammonemia Current Visit: Yes Status: Acute Plan to address problem: Continue lactulose (6) diabetes mellitus with hyperglycemia (7) hyperkalemia Expect improvement with dialysis (8) sacral wound (9) Moderate Protein Calorie Malnutrition History Interval history: Less pain right hip Gen itching is resolved c/o sleeplessness,requesting sleep aid Hospitalist Physical - Physical exam Narrative exam: GENERAL: Not in acute distress, HEAD: Normocephalic, atraumatic. EYES: Pupils are equal. Extraocular motions intact. Icteric sclera EARS: Hearing grossly intact. MOUTH: Oropharynx is normal. NECK: No adenopathy, no JVD. CHEST: Chest with diminished breath sounds bilaterally. No wheezes, rales, or rhonchi. CARDIAC: Regular rate and rhythm. S1 and S2, without murmurs, gallops, or rubs. VASCULAR: No Edema. Peripheral pulses normal and equal in all extremities. ABDOMEN: Soft, non tender and non distended. No rebound or guarding, and no masses palpated. Bowel Sounds normal. MUSCULOSKELETAL: Right BKA , extremities without clubbing, cyanosis or edema. NEUROLOGIC EXAM: Alert and oriented x 3 No focal sensory or strength deficits. Speech normal. Follows commands. PSYCHIATRIC: Mood normal. - Constitutional Vitals: Temp Pulse Resp BP Pulse Ox 98.2 F 76 16 109/41 99 02/24/21 04:56 02/24/21 04:56 02/24/21 04:56 02/24/21 04:56 02/24/21 04:56 General appearance: Present: no acute distress, well-nourished Results - Labs CBC & Chem 7: 02/22/21 07:22 02/19/21 05:27 Labs: Laboratory Last Values WBC 5.2 K/mm3 (4.5-11.0) 02/19/21 05:27 RBC 2.22 M/mm3 (3.65-5.03) L 02/19/21 05:27 Hgb 7.6 gm/dl (11.8-15.2) L 02/22/21 07:22 Hct 22.2 % (35.5-45.6) L 02/22/21 07:22 MCV 93 fl (84-94) 02/19/21 05:27 MCH 33 pg (28-32) H 02/19/21 05:27 MCHC 36 % (32-34) H 02/19/21 05:27 RDW 15.5 % (13.2-15.2) H 02/19/21 05:27 Plt Count 84 K/mm3 (140-440) L 02/19/21 05:27 Lymph % (Auto) 11.2 % (13.4-35.0) L 02/19/21 05:27 [place] % (Auto) 9.2 % (0.0-7.3) H 02/19/21 05:27 Eos % (Auto) 1.9 % (0.0-4.3) 02/19/21 05:27 Baso % (Auto) 0.5 % (0.0-1.8) 02/19/21 05:27 Lymph # (Auto) 0.6 K/mm3 (1.2-5.4) L 02/19/21 05:27 [place] # (Auto) 0.5 K/mm3 (0.0-0.8) 02/19/21 05:27 Eos # (Auto) 0.1 K/mm3 (0.0-0.4) 02/19/21 05:27 Baso # (Auto) 0.0 K/mm3 (0.0-0.1) 02/19/21 05:27 Seg Neutrophils % 77.2 % (40.0-70.0) H 02/19/21 05:27 Seg Neutrophils # 4.0 K/mm3 (1.8-7.7) 02/19/21 05:27 Sodium 132 mmol/L (137-145) L 02/19/21 05:27 Potassium 4.2 mmol/L (3.6-5.0) 02/19/21 05:27 Chloride 93.4 mmol/L (98-107) L 02/19/21 05:27 Carbon Dioxide 23 mmol/L (22-30) 02/19/21 05:27 Anion Gap 20 mmol/L 02/19/21 05:27 BUN 74 mg/dL (9-20) H 02/19/21 05:27 Creatinine 7.5 mg/dL (0.8-1.3) H 02/19/21 05:27 Estimated GFR 8 ml/min 02/19/21 05:27 BUN/Creatinine Ratio 10 % 02/19/21 05:27 Glucose 305 mg/dL (75-100) H 02/19/21 05:27 POC Glucose 248 mg/dL (70-105) H 02/23/21 21:52 Calcium 8.4 mg/dL (8.4-10.2) 02/19/21 05:27 Magnesium 2.10 mg/dL (1.7-2.3) 02/17/21 02:24 Total Bilirubin 0.60 mg/dL (0.1-1.2) 02/17/21 02:24 AST 18 units/L (5-40) 02/17/21 02:24 ALT 19 units/L (7-56) 02/17/21 02:24 Alkaline Phosphatase 171 units/L (35-129) H 02/17/21 02:24 Ammonia 43.0 umol/L (25-60) 02/18/21 21:14 Total Creatine Kinase 86 units/L (55-170) 02/17/21 02:24 Total Protein 6.2 g/dL (6.3-8.2) L 02/17/21 02:24 Albumin 3.0 g/dL (3.9-5) L 02/17/21 02:24 Albumin/Globulin Ratio 0.9 % 02/17/21 02:24 TSH 0.986 mlU/mL (0.270-4.200) 02/17/21 02:24 Urine Color Yellow (Yellow) 02/17/21 Unknown Urine Turbidity Clear (Clear) 02/17/21 Unknown Urine pH 6.0 (5.0-7.0) 02/17/21 Unknown Ur Specific [place] 1.012 (1.003-1.030) 02/17/21 Unknown Urine Protein 100 mg/dl mg/dL (Negative) 02/17/21 Unknown Urine Glucose (UA) >=500 mg/dL (Negative) 02/17/21 Unknown Urine Ketones Neg mg/dL (Negative) 02/17/21 Unknown Urine Blood Neg (Negative) 02/17/21 Unknown Urine Nitrite Neg (Negative) 02/17/21 Unknown Urine Bilirubin Neg (Negative) 02/17/21 Unknown Urine Urobilinogen < 2.0 mg/dL (<2.0) 02/17/21 Unknown Ur Leukocyte Esterase Neg (Negative) 02/17/21 Unknown Urine WBC (Auto) 2.0 /HPF (0.0-6.0) 02/17/21 Unknown Urine RBC (Auto) 2.0 /HPF (0.0-6.0) 02/17/21 Unknown U Epithel Cells (Auto) < 1.0 /HPF (0-13.0) 02/17/21 Unknown Urine Bacteria (Auto) 1+ /HPF (Negative) 02/17/21 Unknown Salicylates < 0.3 mg/dL (2.8-20.0) L 02/17/21 02:24 Acetaminophen 5.0 ug/mL (10.0-30.0) L 02/17/21 02:24 Coronavirus (PCR) Negative (Negative) 02/20/21 Unknown Sr/IV: Voiding Method Urinal Active Medications - Current Medications Current Medications: Generic Name Dose Route Start Last Admin Trade Name Freq PRN Reason Stop Dose Admin Acetaminophen 650 mg 02/18/21 22:38 02/23/21 17:36 Acetaminophen 325 Mg Tab PO 650 mg Q4H PRN Administration Pain MILD(1-3)/Fever >100.5/MOLINA Albuterol 2.5 mg 02/18/21 22:38 Albuterol 2.5 Mg/3 Ml Nebu IH Q3HRT PRN Shortness Of Breath Allopurinol 100 mg 02/20/21 10:00 02/23/21 09:32 Allopurinol 100 Mg Tab PO 100 mg QDAY LEYLA Administration Calcium Acetate 1,334 mg 02/20/21 08:30 02/24/21 08:32 Calcium Acetate 667 Mg Cap PO 1,334 mg TIDWM LEYLA Administration Dextrose 0 ml 02/18/21 23:00 Dextrose 50% In Water (25gm) 50 Ml Syringe IV Q30MIN PRN Hypoglycemia Protocol Diphenhydramine HCl 25 mg 02/23/21 09:10 02/23/21 22:04 Diphenhydramine 25 Mg Cap PO 25 mg BID PRN Administration Itching Famotidine 20 mg 02/19/21 10:00 02/23/21 09:33 Famotidine 20 Mg Tab PO 20 mg QAM LEYLA Administration Heparin Sodium (Porcine) 5,000 unit 02/19/21 06:00 02/24/21 05:44 Heparin 5,000 Unit/1 Ml Vial SUB-Q Not Given Q8HR LEYLA Hydralazine HCl 10 mg 02/18/21 22:56 Hydralazine 20 Mg/1 Ml Inj IV Q6H PRN htn Sodium Chloride 100 mls @ 999 mls/hr 02/19/21 09:06 Nacl 0.9% IV OLIVIA PRN Hypotension Insulin Glargine 30 units 02/19/21 11:00 02/23/21 22:03 Insulin Glargine 100 Units/Ml SUB-Q 30 units BID LEYLA Administration Insulin Human Lispro 0 unit 02/19/21 07:30 02/24/21 08:32 Insulin Lispro 100 Unit/Ml SUB-Q 2 unit ACHS LEYLA Administration Protocol Lactulose 20 gm 02/24/21 14:00 Lactulose 20 Gm/30 Ml Oral Liqd PO Q8HR LEYLA Ondansetron HCl 4 mg 02/18/21 22:38 02/23/21 22:01 Ondansetron 4 Mg/2 Ml Inj IV 4 mg Q8H PRN Administration Nausea And Vomiting Propranolol HCl 20 mg 02/20/21 10:00 02/23/21 21:58 Propranolol 10 Mg Tab PO Not Given BID LEYLA Sodium Chloride 10 ml 02/19/21 10:00 02/23/21 22:07 Sodium Chloride 0.9% 10 Ml Flush Syringe IV 10 ml BID LEYLA Administration Sodium Chloride 10 ml 02/18/21 22:38 Sodium Chloride 0.9% 10 Ml Flush Syringe IV PRN PRN LINE FLUSH Nutrition/Malnutrition Assess - Dietary Evaluation Nutrition/Malnutrition Findings: Nutrition Notes Start: 02/19/21 10:48 Freq: Status: Active Protocol: Document 02/21/21 10:55 (Rec: 02/21/21 10:59 [id number]) Nutrition Notes Initial or Follow up Reassessment Current Diagnosis CKD (stage V CKD),Decubitus( Pressure Ulcer),Diabetes, Hypertension Other Pertinent Diagnosis on HD, Liver dz, stage 2 sacral wound Current Diet Renal consistent CHO cardiac Labs/Tests POC BG 446-201 Pertinent Medications Reviewed Height 5 ft 11 in Weight 70.3 kg [place] Body Weight (kg) 78.18 BMI 21.6 Weight Status Appropriate Subjective/Other Information FU for intakes. Pt reports only wanting 1 Nepro. He states he is eating most of his meal trays and would like more Frosted Flakes. Percent of energy/protein needs met: 100%/100% Burn Absent Trauma Absent GI Symptoms None Current % PO Good (75-100%) Minimum of two criteria Yes Body Fat Depletion Mild depletion (non-severe) Fluid Accumulation Mild (non-severe) #2 Nutrition Diagnosis Increased nutrient needs ( specify in comment below) Diagnosis Progress(for reassessment Continues documentation) #1 Nutrition Diagnosis Malnutrition Diagnosis Progress(for reassessment Continues documentation) Is patient on ventilator? No Is Patient Ambulatory and/or Out of Bed Yes REE-(Sharp-St. Jeor-ambulatory/OOB) [ NUTR.MSJOOB] Kcal/Kg value to use for calculation 35 Approximate Energy Requirements Using 2461 kcal/Kg Calculation Used for Recommendations Kcal/kg Additional Notes Protein needs greater than 84g (greater than 1.2g/kg) Fluid needs are 1000-1500ml or per MD Nutrition Intervention Change Diet Order: Continue Add Supplement/Snack (indicate name/kcal Nepro daily /protein ) Provides kCal: 425 Provides Protein (gm) 19 Goal #1 Meet at least 80% of kcal and protein needs Goal #2 Wound healing Anticipated Discharge Needs: Renal consistent CHO with Nepro BID- daily Follow-Up By: 02/27/21 Additional Comments Follow for stable intakes
[2021-02-24] MEDS: diphenhydrAMINE 25 MG CAP PO PRN ×2 (11:16→22:04)
[2021-02-24] MEDS: allopurinoL 100 MG TAB PO SCH (11:17)
[2021-02-24] MEDS: FAMOTIDINE 20 MG TAB PO SCH (11:17)
[2021-02-24] MEDS: PROPRANOLOL 10 MG TAB PO SCH ×2 (11:18→22:05)
[2021-02-24] MEDS: INSULIN GLARGINE 100 UNITS/ML SUB-Q SCH ×2 (11:26→22:34)
[2021-02-24] MEDS ORDERED: POLYETHYLENE GLYCOL 3350 17 GM POWDER PO PRN (12:08)
[2021-02-24] MEDS: traMADol 50 MG TAB PO PRN (13:44)
--- NOTE | 2021-02-24 19:05 | Progress Note ---
Assessment and Plan 1. ESRD: Patient is on maintenance hemodialysis three times a week, MWF schedule. Meds dosage based on GFR. Missed HD 02/18. Hemodialysis: 02/19, 02/20, 02/22. 2. FEN: Monitor lytes and volume status. 3. Anemia, POA: 2/2 ESRD and Liver disease. Epogen with HD. PRBC as needed. 4. Cirrhosis with h/o hepatic encephalopathy: Lactulose. Monitor. 5. DM type 2 uncontrolled: Hyperglycemia on admission. SSI. Monitor. 6. Thrombocytopenia, POA: 7. Hypertension: Monitor BP. Adjust meds as appropriate. Subjective: Patient was seen and examined at the bedside. Doing ok. General Appearance: General appearance: well-developed, appears stated age, not in distress HEENT: ATNC, pupils equal Neck: trachea midline Respiratory: ctab Heart: regular, S1S2, no murmur Abdomen: soft, bowel sounds heard, not tender Integumentary: no rash, warm and dry Neurologic: AO, conversing, able to move extremities Ext: no edema, R BKA Hemodialysis access: R arm AVF Subjective Date of service: 02/24/21 Objective - Vital Signs Vital signs: Vital Signs - 12hr 02/24/21 02/24/21 02/24/21 10:00 11:10 11:18 Temperature 98 F Pulse Rate 81 81 Respiratory 18 16 Rate Blood Pressure 107/54 Blood Pressure 107/54 [Left] O2 Sat by Pulse 98 98 Oximetry - Lab 02/22/21 07:22 02/19/21 05:27 Most recent lab results Calcium 8.4 mg/dL (8.4-10.2) 02/19/21 05:27 Magnesium 2.10 mg/dL (1.7-2.3) 02/17/21 02:24 Medications & Allergies - Medications Allergies/Adverse Reactions: Allergies No Known Allergies Allergy (Verified 02/16/21 18:26) Home Medications: Home Medications Medication Instructions Recorded Confirmed Last Taken Type Insulin Glargine [Lantus VIAL] 58 unit SUB-Q QHS 01/31/21 02/19/21 Unknown History Lispro Insulin [HumaLOG] See Protocol SQ ACHS 01/31/21 02/19/21 Unknown History Lactulose [Cephulac] 20 gm PO Q8H 30 Days oral.liqd 02/16/21 02/19/21 Unknown Rx Calcium Acetate 2 tab PO TID 02/19/21 02/19/21 Unknown History Inderal 20 mg PO BID 02/19/21 02/19/21 Unknown History allopurinoL 100 mg PO DAILY 02/19/21 02/19/21 Unknown History Active Medications: Generic Name Dose Route Start Last Admin Trade Name Freq PRN Reason Stop Dose Admin Acetaminophen 650 mg 02/18/21 22:38 02/23/21 17:36 Acetaminophen 325 Mg Tab PO 650 mg Q4H PRN Administration Pain MILD(1-3)/Fever >100.5/MOLINA Albuterol 2.5 mg 02/18/21 22:38 Albuterol 2.5 Mg/3 Ml Nebu IH Q3HRT PRN Shortness Of Breath Allopurinol 100 mg 02/20/21 10:00 02/24/21 11:17 Allopurinol 100 Mg Tab PO 100 mg QDAY LEYLA Administration Calcium Acetate 1,334 mg 02/20/21 08:30 02/24/21 18:10 Calcium Acetate 667 Mg Cap PO Not Given TIDWM LEYLA Dextrose 0 ml 02/18/21 23:00 Dextrose 50% In Water (25gm) 50 Ml Syringe IV Q30MIN PRN Hypoglycemia Protocol Diphenhydramine HCl 25 mg 02/23/21 09:10 02/24/21 11:16 Diphenhydramine 25 Mg Cap PO 25 mg BID PRN Administration Itching Famotidine 20 mg 02/19/21 10:00 02/24/21 11:17 Famotidine 20 Mg Tab PO 20 mg QAM LEYLA Administration Heparin Sodium (Porcine) 5,000 unit 02/19/21 06:00 02/24/21 14:55 Heparin 5,000 Unit/1 Ml Vial SUB-Q Not Given Q8HR LEYLA Hydralazine HCl 10 mg 02/18/21 22:56 Hydralazine 20 Mg/1 Ml Inj IV Q6H PRN htn Sodium Chloride 100 mls @ 999 mls/hr 02/19/21 09:06 Nacl 0.9% IV OLIVIA PRN Hypotension Insulin Glargine 30 units 02/19/21 11:00 02/24/21 11:26 Insulin Glargine 100 Units/Ml SUB-Q 30 units BID LEYLA Administration Insulin Human Lispro 0 unit 02/19/21 07:30 02/24/21 18:11 Insulin Lispro 100 Unit/Ml SUB-Q Not Given ACHS LEYLA Protocol Lactulose 20 gm 02/24/21 14:00 02/24/21 13:43 Lactulose 20 Gm/30 Ml Oral Liqd PO 20 gm Q8HR LEYLA Administration Ondansetron HCl 4 mg 02/18/21 22:38 02/23/21 22:01 Ondansetron 4 Mg/2 Ml Inj IV 4 mg Q8H PRN Administration Nausea And Vomiting Polyethylene Glycol 17 gm 02/24/21 12:08 02/24/21 12:47 Polyethylene Glycol 3350 17 Gm Powder PO 17 gm QDAY PRN Administration Constipation Propranolol HCl 20 mg 02/20/21 10:00 02/24/21 11:18 Propranolol 10 Mg Tab PO Not Given BID LEYLA Sodium Chloride 10 ml 02/19/21 10:00 02/24/21 11:17 Sodium Chloride 0.9% 10 Ml Flush Syringe IV 10 ml BID LEYLA Administration Sodium Chloride 10 ml 02/18/21 22:38 Sodium Chloride 0.9% 10 Ml Flush Syringe IV PRN PRN LINE FLUSH Tramadol HCl 50 mg 02/24/21 13:20 02/24/21 13:44 Tramadol 50 Mg Tab PO 50 mg Q6H PRN Administration Pain, Moderate (4-6) Zolpidem Tartrate 5 mg 02/24/21 09:54 Zolpidem 5 Mg Tab PO QHS PRN Sleep
[2021-02-24] MEDS: ZOLPIDEM 5 MG TAB PO PRN (22:36)
[2021-02-25] MEDS: LACTULOSE 20 GM/30 ML ORAL LIQD PO SCH ×3 (05:25→21:56)
[2021-02-25] MEDS: HEPARIN 5,000 UNIT/1 ML VIAL SUB-Q SCH ×3 (05:37→21:57)
[2021-02-25] MEDS: ONDANSETRON 4 MG/2 ML INJ IV PRN (06:06)
[2021-02-25] MEDS: INSULIN LISPRO 100 UNIT/ML SUB-Q SCH ×4 (08:52→21:57)
--- NOTE | 2021-02-25 09:03 | Progress Note ---
Assessment and Plan 1. ESRD: Patient is on maintenance hemodialysis three times a week, MWF schedule. Meds dosage based on GFR. Missed HD 02/18. Hemodialysis: 02/19, 02/20, 02/22. 2. FEN: Monitor lytes and volume status. 3. Anemia, POA: 2/2 ESRD and Liver disease. Epogen with HD. PRBC as needed. 4. Cirrhosis with h/o hepatic encephalopathy: Lactulose. Monitor. 5. DM type 2 uncontrolled: Hyperglycemia on admission. SSI. Monitor. 6. Thrombocytopenia, POA: 7. Hypertension: Monitor BP. Adjust meds as appropriate. Subjective: Patient was seen and examined at the bedside. Doing ok. General Appearance: General appearance: well-developed, appears stated age, not in distress HEENT: ATNC, pupils equal Neck: trachea midline Respiratory: ctab Heart: regular, S1S2, no murmur Abdomen: soft, bowel sounds heard, not tender Integumentary: no rash, warm and dry Neurologic: AO, conversing, able to move extremities Ext: no edema, R BKA Hemodialysis access: R arm AVF Subjective Date of service: 02/25/21 Objective - Vital Signs Vital signs: Vital Signs - 12hr 02/24/21 02/24/21 02/25/21 22:00 22:05 04:05 Temperature 98.3 F Pulse Rate 73 68 Respiratory 18 18 Rate Blood Pressure 122/62 104/54 O2 Sat by Pulse 100 99 Oximetry 02/25/21 04:06 Temperature Pulse Rate 68 Respiratory Rate Blood Pressure O2 Sat by Pulse 100 Oximetry - Lab 02/22/21 07:22 02/19/21 05:27 Most recent lab results Calcium 8.4 mg/dL (8.4-10.2) 02/19/21 05:27 Magnesium 2.10 mg/dL (1.7-2.3) 02/17/21 02:24 Medications & Allergies - Medications Allergies/Adverse Reactions: Allergies No Known Allergies Allergy (Verified 02/16/21 18:26) Home Medications: Home Medications Medication Instructions Recorded Confirmed Last Taken Type Insulin Glargine [Lantus VIAL] 58 unit SUB-Q QHS 01/31/21 02/19/21 Unknown History Lispro Insulin [HumaLOG] See Protocol SQ ACHS 01/31/21 02/19/21 Unknown History Lactulose [Cephulac] 20 gm PO Q8H 30 Days oral.liqd 02/16/21 02/19/21 Unknown Rx Calcium Acetate 2 tab PO TID 02/19/21 02/19/21 Unknown History Inderal 20 mg PO BID 02/19/21 02/19/21 Unknown History allopurinoL 100 mg PO DAILY 02/19/21 02/19/21 Unknown History Active Medications: Generic Name Dose Route Start Last Admin Trade Name Freq PRN Reason Stop Dose Admin Acetaminophen 650 mg 02/18/21 22:38 02/23/21 17:36 Acetaminophen 325 Mg Tab PO 650 mg Q4H PRN Administration Pain MILD(1-3)/Fever >100.5/MOLINA Albuterol 2.5 mg 02/18/21 22:38 Albuterol 2.5 Mg/3 Ml Nebu IH Q3HRT PRN Shortness Of Breath Allopurinol 100 mg 02/20/21 10:00 02/24/21 11:17 Allopurinol 100 Mg Tab PO 100 mg QDAY LEYLA Administration Calcium Acetate 1,334 mg 02/20/21 08:30 02/24/21 18:10 Calcium Acetate 667 Mg Cap PO Not Given TIDWM LEYLA Dextrose 0 ml 02/18/21 23:00 Dextrose 50% In Water (25gm) 50 Ml Syringe IV Q30MIN PRN Hypoglycemia Protocol Diphenhydramine HCl 25 mg 02/23/21 09:10 02/24/21 22:04 Diphenhydramine 25 Mg Cap PO 25 mg BID PRN Administration Itching Famotidine 20 mg 02/19/21 10:00 02/24/21 11:17 Famotidine 20 Mg Tab PO 20 mg QAM LEYLA Administration Heparin Sodium (Porcine) 5,000 unit 02/19/21 06:00 02/25/21 05:37 Heparin 5,000 Unit/1 Ml Vial SUB-Q Not Given Q8HR LEYLA Hydralazine HCl 10 mg 02/18/21 22:56 Hydralazine 20 Mg/1 Ml Inj IV Q6H PRN htn Sodium Chloride 100 mls @ 999 mls/hr 02/19/21 09:06 Nacl 0.9% IV OLIVIA PRN Hypotension Insulin Glargine 30 units 02/19/21 11:00 02/24/21 22:34 Insulin Glargine 100 Units/Ml SUB-Q 30 units BID LEYLA Administration Insulin Human Lispro 0 unit 02/19/21 07:30 02/25/21 08:52 Insulin Lispro 100 Unit/Ml SUB-Q Not Given ACHS [facility] Protocol Lactulose 20 gm 02/24/21 14:00 02/25/21 05:25 Lactulose 20 Gm/30 Ml Oral Liqd PO 20 gm Q8HR LEYLA Administration Ondansetron HCl 4 mg 02/18/21 22:38 02/25/21 06:06 Ondansetron 4 Mg/2 Ml Inj IV 4 mg Q8H PRN Administration Nausea And Vomiting Polyethylene Glycol 17 gm 02/24/21 12:08 02/24/21 12:47 Polyethylene Glycol 3350 17 Gm Powder PO 17 gm QDAY PRN Administration Constipation Propranolol HCl 20 mg 02/20/21 10:00 02/24/21 22:05 Propranolol 10 Mg Tab PO 20 mg BID LEYLA Administration Sodium Chloride 10 ml 02/19/21 10:00 02/24/21 22:06 Sodium Chloride 0.9% 10 Ml Flush Syringe IV 10 ml BID LEYLA Administration Sodium Chloride 10 ml 02/18/21 22:38 Sodium Chloride 0.9% 10 Ml Flush Syringe IV PRN PRN LINE FLUSH Tramadol HCl 50 mg 02/24/21 13:20 02/24/21 13:44 Tramadol 50 Mg Tab PO 50 mg Q6H PRN Administration Pain, Moderate (4-6) Zolpidem Tartrate 5 mg 02/24/21 09:54 02/24/21 22:36 Zolpidem 5 Mg Tab PO 5 mg QHS PRN Administration Sleep
[2021-02-25] MEDS: PROPRANOLOL 10 MG TAB PO SCH ×2 (09:04→21:56)
[2021-02-25] MEDS: allopurinoL 100 MG TAB PO SCH (09:04)
[2021-02-25] MEDS: INSULIN GLARGINE 100 UNITS/ML SUB-Q SCH (09:04)
[2021-02-25] MEDS: CALCIUM ACETATE 667 MG CAP PO SCH ×3 (09:04→17:17)
[2021-02-25] MEDS: FAMOTIDINE 20 MG TAB PO SCH (09:04)
--- NOTE | 2021-02-25 09:48 | Consultation ---
History of Present Illness - HPI Consult date: 02/25/21 Consult reason: joint pain, fracture History of present illness: 55 y/o male with c/o right hip pain after a fall several months back, seen at outside facility where he underwent cannulated screw fixation right hip fracture...hx of ETOH abuse, dementia... Past History Past Medical History: anemia, diabetes, dialysis, ESRD, hepatitis, hypertension, liver disease, other (Esophageal varices) Medications and Allergies Allergies Allergy/AdvReac Type Severity Reaction Status Date / Time No Known Allergies Allergy Verified 02/16/21 18:26 Home Medications Medication Instructions Recorded Confirmed Last Taken Type Calcium Acetate [Phoslo] 1,334 mg PO TIDWM #90 capsule 03/01/21 Unknown Rx Famotidine [Pepcid] 20 mg PO QAM #30 tablet 03/01/21 Unknown Rx Lactulose [Cephulac] 20 gm PO Q8HR 30 Days 03/01/21 Unknown Rx Lispro Insulin [HumaLOG] See Protocol SQ ACHS 30 Days 03/01/21 Unknown Rx allopurinoL [Zyloprim] 100 mg PO QDAY #30 tablet 03/01/21 Unknown Rx propranoloL [Inderal] 20 mg PO BID #60 tablet 03/01/21 Unknown Rx Active Meds: Active Medications Acetaminophen (Acetaminophen 325 Mg Tab) 650 mg PO Q4H PRN PRN Reason: Pain MILD(1-3)/Fever >100.5/MOLINA Last Admin: 02/23/21 17:36 Dose: 650 mg Documented by: Albuterol (Albuterol 2.5 Mg/3 Ml Nebu) 2.5 mg IH Q3HRT PRN PRN Reason: Shortness Of Breath Allopurinol (Allopurinol 100 Mg Tab) 100 mg PO QDAY [facility] Last Admin: 02/25/21 09:04 Dose: 100 mg Documented by: Calcium Acetate (Calcium Acetate 667 Mg Cap) 1,334 mg PO TIDWM [facility] Last Admin: 02/25/21 09:04 Dose: 1,334 mg Documented by: Dextrose (Dextrose 50% In Water (25gm) 50 Ml Syringe) 0 ml IV Q30MIN PRN; Protocol PRN Reason: Hypoglycemia Diphenhydramine HCl (Diphenhydramine 25 Mg Cap) 25 mg PO BID PRN PRN Reason: Itching Last Admin: 02/24/21 22:04 Dose: 25 mg Documented by: Famotidine (Famotidine 20 Mg Tab) 20 mg PO QAM [facility] Last Admin: 02/25/21 09:04 Dose: 20 mg Documented by: Heparin Sodium (Porcine) (Heparin 5,000 Unit/1 Ml Vial) 5,000 unit SUB-Q Q8HR [facility] Last Admin: 02/25/21 05:37 Dose: Not Given Documented by: Hydralazine HCl (Hydralazine 20 Mg/1 Ml Inj) 10 mg IV Q6H PRN PRN Reason: htn Sodium Chloride (Nacl 0.9%) 100 mls @ 999 mls/hr IV OLIVIA PRN PRN Reason: Hypotension Insulin Glargine (Insulin Glargine 100 Units/Ml) 30 units SUB-Q BID [facility] Last Admin: 02/25/21 09:04 Dose: 30 units Documented by: Insulin Human Lispro (Insulin Lispro 100 Unit/Ml) 0 unit SUB-Q ACHS [facility]; Protocol Last Admin: 02/25/21 08:52 Dose: Not Given Documented by: Lactulose (Lactulose 20 Gm/30 Ml Oral Liqd) 20 gm PO Q8HR [facility] Last Admin: 02/25/21 05:25 Dose: 20 gm Documented by: Ondansetron HCl (Ondansetron 4 Mg/2 Ml Inj) 4 mg IV Q8H PRN PRN Reason: Nausea And Vomiting Last Admin: 02/25/21 06:06 Dose: 4 mg Documented by: Polyethylene Glycol (Polyethylene Glycol 3350 17 Gm Powder) 17 gm PO QDAY PRN PRN Reason: Constipation Last Admin: 02/24/21 12:47 Dose: 17 gm Documented by: Propranolol HCl (Propranolol 10 Mg Tab) 20 mg PO BID [facility] Last Admin: 02/25/21 09:04 Dose: Not Given Documented by: Sodium Chloride (Sodium Chloride 0.9% 10 Ml Flush Syringe) 10 ml IV BID [facility] Last Admin: 02/25/21 09:04 Dose: 10 ml Documented by: Sodium Chloride (Sodium Chloride 0.9% 10 Ml Flush Syringe) 10 ml IV PRN PRN PRN Reason: LINE FLUSH Tramadol HCl (Tramadol 50 Mg Tab) 50 mg PO Q6H PRN PRN Reason: Pain, Moderate (4-6) Last Admin: 02/24/21 13:44 Dose: 50 mg Documented by: Zolpidem Tartrate (Zolpidem 5 Mg Tab) 5 mg PO QHS PRN PRN Reason: Sleep Last Admin: 02/24/21 22:36 Dose: 5 mg Documented by: Physical Examination - Physical exam Narrative exam: Right hip well-healed incision stab wounds mild to moderate swelling Assessment and Plan right femoral neck fracture, s/p ORIF would resume PT when medical condition allows
[2021-02-25] MEDS: traMADol 50 MG TAB PO PRN (10:17)
[2021-02-25] MEDS: DEXTROSE 50% IN WATER (25GM) 50 ML SYRINGE IV PRN ×3 (11:44→16:56)
--- NOTE | 2021-02-25 13:22 | Progress Note ---
Assessment and Plan Assessment and plan: 55 YO Male with ESRD on HD, Noncompliance with outpatient dialysis, Anemia, HBV, Chronic Liver Disease, Cirrhosis complicated by Esophageal Varices, HTN, Debility, DM presents to ED for evaluation. Patient is confused with diminished cognition and is unable to provide detailed history. Patient history taken from EMS staff, ED staff as well as patient family members. Patient family report the patient was "not acting like himself" and found to have worsening confusion over the past 2 days. EMS was notified and upon arrival the patient was found to be in distress and subsequent transported to [facility] for further care and evaluation of the aforementioned symptoms. The patient was seen and evaluated in the emergency department. All lab and imaging studies reviewed. The patient was found to have hepatic encephalopathy complicated by diminished cognition, end-stage renal disease in need of urgent dialysis, as well as uncontrolled diabetes, and acidosis. Nephrology team consulted in ED. During the admission referenced above is mental status is improved we did have extensive discussion about his medical condition and the need to be compliant with the lactulose he states that he was not taking the lactulose because the staff at the facility where he is at would not clean him up. He also has a sacral wound which is being monitored. Considering that he was not having significant diarrhea on the lactulose he is now agreeable to he will take it. His blood pressure was low yesterday but this was during dialysis and is improved. I do not think that this inconsiderate to consider palliative care for him due to his chronic liver disease. Will defer to case management and outpatient discussion with the patient. Otherwise will plan proceed with discharge and continued on dialysis outpatient. Return to the ER due to: As per case management documentation from February 16, 2021, patient had been accepted to [facility] hospice program. In addition, case management received a call from a Mr. Trivedi; [phone], who had advised case management that he would receive patient back at his personal long term. However, at that point time, it appeared that the patient was refusing tra nsportation, and had signed himself back into the hospital. the patient presents to the ER because patient missed hemodialysis. Patient BUN is 77 creatinine 7.1 glucose 511 we consulted nephrology for hemodialysis in the morning 6/1: Resume dialysis will adjust insulin for better coverage. Very poor prognosis considering poor medical compliance. Agree with hospice recommendation. Will obtain wound care to continue to manage. Monitor anemia as patient was pretty anemic during the last hospitalization. Required transfusion. 02/20: Continues to undergo dialysis no change in mental status noted. Tolerating medications. Blood sugar mildly elevated adjusted insulin yesterday when awake for the patient received a dose today and if still elevated will adjust. Again case management is working on discharge plan for this patient as he is pending placement 02/21 patient complains of right hip pain. He said he fell few weeks ago and is concerned about another fracture. He had a fracture about 8 weeks ago and had surgery. Will obtain X ray right hip. Patient pending placement. 02/22 Patient seen in Dialysis Unit. He states hip pain improved. No other complaints. Right hip X ray done yesterday report read may be healing fracture or acute fracture. Will discuss with Orthopedic Surgeon Patient pending placement 02/23 Less hip pain. Today complains of generalized itching. Will start Benadryl po prn. Orthopedic consulted to evaluate right hip. Patient pending placement 02/24 Less hip pain. Generalized itching now resolved. Orthopedic consulted to evaluate right hip. He complains of sleeplessness. Will give Ambien prn Patient pending placement 02/25 Patient requested DNR status yesterday. I discussed with him and he signed forms. He also complains of worsening abdominal distension and requested tapping, Will order paracentesis. Right hip evaluated by Dr. Trivedi and conservative management recommended. (1) Hepatic encephalopathy Current Visit: No Status: Acute Plan to address problem: Neuro check, seizure precaution, aspiration precaution, fall precautions, continue to monitor. (2) End stage renal disease Current Visit: No Status: Acute Plan to address problem: Nephrology team consulted, strict I's/O, monitor urine output every shift, dialysis as per renal team, avoid nephrotoxic agents. (3) Metabolic Acidosis Current Visit: Yes Status: Acute Plan to address problem: BMP, repeat BMP in a.m., nephrology team consulted, dialysis as per renal team. (4) Hyponatremia Current Visit: Yes Status: Acute Plan to address problem: BMP, supportive care, repeat BMP in a.m., monitor fluid balance. (5) Hyperammonemia Current Visit: Yes Status: Acute Plan to address problem: Continue lactulose (6) diabetes mellitus with hyperglycemia (7) hyperkalemia Expect improvement with dialysis (8) sacral wound (9) Moderate Protein Calorie Malnutrition History Interval history: Less pain right hip Gen itching is resolved c/o sleeplessness,requested sleep aid Requested DNR status Abdominal distension, request paracentesis Hospitalist Physical - Physical exam Narrative exam: GENERAL: Not in acute distress, HEAD: Normocephalic, atraumatic. EYES: Pupils are equal. Extraocular motions intact. Icteric sclera EARS: Hearing grossly intact. MOUTH: Oropharynx is normal. NECK: No adenopathy, no JVD. CHEST: Chest with diminished breath sounds bilaterally. No wheezes, rales, or rhonchi. CARDIAC: Regular rate and rhythm. S1 and S2, without murmurs, gallops, or rubs. VASCULAR: No Edema. Peripheral pulses normal and equal in all extremities. ABDOMEN: Soft, non tender , abd distension from ascitis, No rebound or gu arding, and no masses palpated. Bowel Sounds normal. MUSCULOSKELETAL: Right BKA , extremities without clubbing, cyanosis or edema. NEUROLOGIC EXAM: Alert and oriented x 3 No focal sensory or strength deficits. Speech normal. Follows commands. PSYCHIATRIC: Mood normal. - Constitutional Vitals: Temp Pulse Resp BP Pulse Ox 98.3 F 69 18 119/54 98 02/25/21 12:22 02/25/21 12:22 02/25/21 12:22 02/25/21 12:22 02/25/21 12:22 General appearance: Present: no acute distress, well-nourished HEART Score - HEART Score Troponin: Hgb 7.6 gm/dl (11.8-15.2) L 02/22/21 07:22 Hct 22.2 % (35.5-45.6) L 02/22/21 07:22 Coronavirus (PCR) Negative (Negative) 02/20/21 Unknown Results - Labs CBC & Chem 7: 02/22/21 07:22 02/19/21 05:27 Labs: Laboratory Last Values WBC 5.2 K/mm3 (4.5-11.0) 02/19/21 05:27 RBC 2.22 M/mm3 (3.65-5.03) L 02/19/21 05:27 Hgb 7.6 gm/dl (11.8-15.2) L 02/22/21 07:22 Hct 22.2 % (35.5-45.6) L 02/22/21 07:22 MCV 93 fl (84-94) 02/19/21 05:27 MCH 33 pg (28-32) H 02/19/21 05:27 MCHC 36 % (32-34) H 02/19/21 05:27 RDW 15.5 % (13.2-15.2) H 02/19/21 05:27 Plt Count 84 K/mm3 (140-440) L 02/19/21 05:27 Lymph % (Auto) 11.2 % (13.4-35.0) L 02/19/21 05:27 [place] % (Auto) 9.2 % (0.0-7.3) H 02/19/21 05:27 Eos % (Auto) 1.9 % (0.0-4.3) 02/19/21 05:27 Baso % (Auto) 0.5 % (0.0-1.8) 02/19/21 05:27 Lymph # (Auto) 0.6 K/mm3 (1.2-5.4) L 02/19/21 05:27 [place] # (Auto) 0.5 K/mm3 (0.0-0.8) 02/19/21 05:27 Eos # (Auto) 0.1 K/mm3 (0.0-0.4) 02/19/21 05:27 Baso # (Auto) 0.0 K/mm3 (0.0-0.1) 02/19/21 05:27 Seg Neutrophils % 77.2 % (40.0-70.0) H 02/19/21 05:27 Seg Neutrophils # 4.0 K/mm3 (1.8-7.7) 02/19/21 05:27 Sodium 132 mmol/L (137-145) L 02/19/21 05:27 Potassium 4.2 mmol/L (3.6-5.0) 02/19/21 05:27 Chloride 93.4 mmol/L (98-107) L 02/19/21 05:27 Carbon Dioxide 23 mmol/L (22-30) 02/19/21 05:27 Anion Gap 20 mmol/L 02/19/21 05:27 BUN 74 mg/dL (9-20) H 02/19/21 05:27 Creatinine 7.5 mg/dL (0.8-1.3) H 02/19/21 05:27 Estimated GFR 8 ml/min 02/19/21 05:27 BUN/Creatinine Ratio 10 % 02/19/21 05:27 Glucose 305 mg/dL (75-100) H 02/19/21 05:27 POC Glucose 69 mg/dL (70-105) L 02/25/21 12:11 Calcium 8.4 mg/dL (8.4-10.2) 02/19/21 05:27 Magnesium 2.10 mg/dL (1.7-2.3) 02/17/21 02:24 Total Bilirubin 0.60 mg/dL (0.1-1.2) 02/17/21 02:24 AST 18 units/L (5-40) 02/17/21 02:24 ALT 19 units/L (7-56) 02/17/21 02:24 Alkaline Phosphatase 171 units/L (35-129) H 02/17/21 02:24 Ammonia 43.0 umol/L (25-60) 02/18/21 21:14 Total Creatine Kinase 86 units/L (55-170) 02/17/21 02:24 Total Protein 6.2 g/dL (6.3-8.2) L 02/17/21 02:24 Albumin 3.0 g/dL (3.9-5) L 02/17/21 02:24 Albumin/Globulin Ratio 0.9 % 02/17/21 02:24 TSH 0.986 mlU/mL (0.270-4.200) 02/17/21 02:24 Urine Color Yellow (Yellow) 02/17/21 Unknown Urine Turbidity Clear (Clear) 02/17/21 Unknown Urine pH 6.0 (5.0-7.0) 02/17/21 Unknown Ur Specific [place] 1.012 (1.003-1.030) 02/17/21 Unknown Urine Protein 100 mg/dl mg/dL (Negative) 02/17/21 Unknown Urine Glucose (UA) >=500 mg/dL (Negative) 02/17/21 Unknown Urine Ketones Neg mg/dL (Negative) 02/17/21 Unknown Urine Blood Neg (Negative) 02/17/21 Unknown Urine Nitrite Neg (Negative) 02/17/21 Unknown Urine Bilirubin Neg (Negative) 02/17/21 Unknown Urine Urobilinogen < 2.0 mg/dL (<2.0) 02/17/21 Unknown Ur Leukocyte Esterase Neg (Negative) 02/17/21 Unknown Urine WBC (Auto) 2.0 /HPF (0.0-6.0) 02/17/21 Unknown Urine RBC (Auto) 2.0 /HPF (0.0-6.0) 02/17/21 Unknown U Epithel Cells (Auto) < 1.0 /HPF (0-13.0) 02/17/21 Unknown Urine Bacteria (Auto) 1+ /HPF (Negative) 02/17/21 Unknown Salicylates < 0.3 mg/dL (2.8-20.0) L 02/17/21 02:24 Acetaminophen 5.0 ug/mL (10.0-30.0) L 02/17/21 02:24 Coronavirus (PCR) Negative (Negative) 02/20/21 Unknown Sr/IV: Voiding Method Urinal Active Medications - Current Medications Current Medications: Generic Name Dose Route Start Last Admin Trade Name Freq PRN Reason Stop Dose Admin Acetaminophen 650 mg 02/18/21 22:38 02/23/21 17:36 Acetaminophen 325 Mg Tab PO 650 mg Q4H PRN Administration Pain MILD(1-3)/Fever >100.5/MOLINA Albuterol 2.5 mg 02/18/21 22:38 Albuterol 2.5 Mg/3 Ml Nebu IH Q3HRT PRN Shortness Of Breath Allopurinol 100 mg 02/20/21 10:00 02/25/21 09:04 Allopurinol 100 Mg Tab PO 100 mg QDAY LEYLA Administration Calcium Acetate 1,334 mg 02/20/21 08:30 02/25/21 12:15 Calcium Acetate 667 Mg Cap PO Not Given TIDWM LEYLA Dextrose 0 ml 02/18/21 23:00 02/25/21 12:11 Dextrose 50% In Water (25gm) 50 Ml Syringe IV 15 ml Q30MIN PRN Administration Hypoglycemia Protocol Diphenhydramine HCl 25 mg 02/23/21 09:10 02/24/21 22:04 Diphenhydramine 25 Mg Cap PO 25 mg BID PRN Administration Itching Famotidine 20 mg 02/19/21 10:00 02/25/21 09:04 Famotidine 20 Mg Tab PO 20 mg QAM LEYLA Administration Heparin Sodium (Porcine) 5,000 unit 02/19/21 06:00 02/25/21 05:37 Heparin 5,000 Unit/1 Ml Vial SUB-Q Not Given Q8HR LEYLA Hydralazine HCl 10 mg 02/18/21 22:56 Hydralazine 20 Mg/1 Ml Inj IV Q6H PRN htn Sodium Chloride 100 mls @ 999 mls/hr 02/19/21 09:06 Nacl 0.9% IV OLIVIA PRN Hypotension Insulin Human Lispro 0 unit 02/19/21 07:30 02/25/21 11:42 Insulin Lispro 100 Unit/Ml SUB-Q Not Given ACHS [facility] Protocol Lactulose 20 gm 02/24/21 14:00 02/25/21 05:25 Lactulose 20 Gm/30 Ml Oral Liqd PO 20 gm Q8HR LEYLA Administration Ondansetron HCl 4 mg 02/18/21 22:38 02/25/21 06:06 Ondansetron 4 Mg/2 Ml Inj IV 4 mg Q8H PRN Administration Nausea And Vomiting Polyethylene Glycol 17 gm 02/24/21 12:08 02/24/21 12:47 Polyethylene Glycol 3350 17 Gm Powder PO 17 gm QDAY PRN Administration Constipation Propranolol HCl 20 mg 02/20/21 10:00 02/25/21 09:04 Propranolol 10 Mg Tab PO Not Given BID LEYLA Sodium Chloride 10 ml 02/19/21 10:00 02/25/21 09:04 Sodium Chloride 0.9% 10 Ml Flush Syringe IV 10 ml BID LEYLA Administration Sodium Chloride 10 ml 02/18/21 22:38 Sodium Chloride 0.9% 10 Ml Flush Syringe IV PRN PRN LINE FLUSH Tramadol HCl 50 mg 02/24/21 13:20 02/25/21 10:17 Tramadol 50 Mg Tab PO 50 mg Q6H PRN Administration Pain, Moderate (4-6) Zolpidem Tartrate 5 mg 02/24/21 09:54 02/24/21 22:36 Zolpidem 5 Mg Tab PO 5 mg QHS PRN Administration Sleep Nutrition/Malnutrition Assess - Dietary Evaluation Nutrition/Malnutrition Findings: Nutrition Notes Start: 02/19/21 10:48 Freq: Status: Active Protocol: Document 02/21/21 10:55 MK (Rec: 02/21/21 10:59 MK [id number]) Nutrition Notes Initial or Follow up Reassessment Current Diagnosis CKD (stage V CKD),Decubitus( Pressure Ulcer),Diabetes, Hypertension Other Pertinent Diagnosis on HD, Liver dz, stage 2 sacral wound Current Diet Renal consistent CHO cardiac Labs/Tests POC BG [id number] Pertinent Medications Reviewed Height 5 ft 11 in Weight 70.3 kg [place] Body Weight (kg) 78.18 BMI 21.6 Weight Status Appropriate Subjective/Other Information FU for intakes. Pt reports only wanting 1 Nepro. He states he is eating most of his meal trays and would like more Frosted Flakes. Percent of energy/protein needs met: 100%/100% Burn Absent Trauma Absent GI Symptoms None Current % PO Good (75-100%) Minimum of two criteria Yes Body Fat Depletion Mild depletion (non-severe) Fluid Accumulation Mild (non-severe) #2 Nutrition Diagnosis Increased nutrient needs ( specify in comment below) Diagnosis Progress(for reassessment Continues documentation) #1 Nutrition Diagnosis Malnutrition Diagnosis Progress(for reassessment Continues documentation) Is patient on ventilator? No Is Patient Ambulatory and/or Out of Bed Yes REE-([place]-ambulatory/OOB) [ NUTR.[id number]] Kcal/Kg value to use for calculation 35 Approximate Energy Requirements Using 2461 kcal/Kg Calculation Used for Recommendations Kcal/kg Additional Notes Protein needs greater than 84g (greater than 1.2g/kg) Fluid needs are 1000-1500ml or per MD Nutrition Intervention Change Diet Order: Continue Add Supplement/Snack (indicate name/kcal Nepro daily /protein ) Provides kCal: 425 Provides Protein (gm) 19 Goal #1 Meet at least 80% of kcal and protein needs Goal #2 Wound healing Anticipated Discharge Needs: Renal consistent CHO with Nepro BID- daily Follow-Up By: 02/27/21 Additional Comments Follow for stable intakes
[2021-02-25] MEDS: EPOETIN ALFA-EPBX 20,000 UNIT/1 ML VIAL SUB-Q PRN (15:47)
[2021-02-25] MEDS: DEXTROSE 5% IN WATER 1,000 ML IV SCH (18:43)
[2021-02-26 05:28] LABS: Hemoglobin 7.8 gm/dl (11.8-15.2); Mean Corpuscular HGB Conc 34 % (32-34); Mean Corpuscular Volume 95 fl (84-94); Red Blood Count 2.44 M/mm3 (3.65-5.03); Red Cell Distribution Width 15.5 % (13.2-15.2)
[2021-02-26 05:32] LABS: Platelet Count 98 K/mm3 (140-440)
[2021-02-26 05:36] LABS: Calcium 8.7 mg/dL (8.4-10.2)
[2021-02-26] MEDS: LACTULOSE 20 GM/30 ML ORAL LIQD PO SCH ×4 (06:21→22:21)
[2021-02-26] MEDS: HEPARIN 5,000 UNIT/1 ML VIAL SUB-Q SCH ×4 (06:21→22:22)
[2021-02-26] MEDS: INSULIN LISPRO 100 UNIT/ML SUB-Q SCH ×4 (09:56→22:17)
[2021-02-26] MEDS: CALCIUM ACETATE 667 MG CAP PO SCH ×3 (09:56→16:55)
[2021-02-26] MEDS: PROPRANOLOL 10 MG TAB PO SCH ×3 (09:57→22:22)
[2021-02-26] MEDS: allopurinoL 100 MG TAB PO SCH (09:57)
[2021-02-26] MEDS: FAMOTIDINE 20 MG TAB PO SCH (09:57)
[2021-02-26] MEDS: DEXTROSE 5% IN WATER 1,000 ML IV SCH (10:02)
--- NOTE | 2021-02-26 13:05 | Progress Note ---
Assessment and Plan 55 YO Male with ESRD on HD, Noncompliance with outpatient dialysis, Anemia, HBV, Chronic Liver Disease, Cirrhosis complicated by Esophageal Varices, HTN, Debility, DM presents to ED with confusion with diminished cognition. Patient family report the patient was "not acting like himself" and found to have worsening confusion over the past 2 days. In the ER the patient was found to have hepatic encephalopathy complicated by diminished cognition, end-stage renal disease in need of urgent dialysis, as well as uncontrolled diabetes, and a cidosis. Nephrology team consulted in ED and patient was then admitted for further evaluation and Mx. A/p -- Hepatic encephalopathy cont lactulose, Neuro check, seizure precaution, aspiration precaution, fall precautions, continue to monitor. -- End stage renal disease Nephrology team consulted, strict I's/O, monitor urine output every shift, dialysis as per renal team, avoid nephrotoxic agents. --Metabolic Acidosis Nephrology team consulted, dialysis as per renal team. --Hyponatremia Monitor BMP, monitor fluid balance. -- Hyperammonemia Continue lactulose --Diabetes mellitus with hyperglycemia Consistent carb diet, SSI -- hyperkalemia, Improvement with dialysis --Sacral wound, wound care -- Moderate Protein Calorie Malnutrition, nutrition consulted --DVT Px, SCD --DNR code status --Disposition: needs placement, CM waiting for placement Daily clinical course: 02/19: Resume dialysis will adjust insulin for better coverage. Very poor prognosis considering poor medical compliance. Agree with hospice recommendation. Will obtain wound care to continue to manage. Monitor anemia as patient was pretty anemic during the last hospitalization. Required transfusion. 02/20: Continues to undergo dialysis no change in mental status noted. Tolerating medications. Blood sugar mildly elevated adjusted insulin yesterday when awake for the patient received a dose today and if still elevated will adjust. Again case management is working on discharge plan for this patient as he is pending placement 02/21 patient complains of right hip pain. He said he fell few weeks ago and is concerned about another fracture. He had a fracture about 8 weeks ago and had surgery. Will obtain X ray right hip. Patient pending placement. 02/22 Patient seen in Dialysis Unit. He states hip pain improved. No other complaints. Right hip X ray done yesterday report read may be healing fracture or acute fracture. Will discuss with Orthopedic Surgeon Patient pending placement 02/23 Less hip pain. Today complains of generalized itching. Will start Benadryl po prn. Orthopedic consulted to evaluate right hip. Patient pending placement 02/24 Less hip pain. Generalized itching now resolved. Orthopedic consulted to evaluate right hip. He complains of sleeplessness. Will give Ambien prn Patient pending placement 02/25 Patient requested DNR status yesterday. I discussed with him and he signed forms. He also complains of worsening abdominal distension and requested tapping, Will order paracentesis. Right hip evaluated by Dr. Trivedi and conservative management recommended. 02/26: Plan for paracentesis today. Need to set up dialysis as outpatient. district manager primary care sales working on discharge planning. Subjective Date of service: 02/26/21 Interval history: Patient seen and examined. Medical records and medication list reviewed. No acute event overnight noted by the RN. Patient denies any chest pain or difficulty breathing. Patient is tolerating diet. Discussed plan of care at bedside with patient. Objective - Exam Narrative Exam: GENERAL: Not in acute distress, HEAD: Normocephalic, atraumatic. EYES: Pupils are equal. Extraocular motions intact. Icteric sclera EARS: Hearing grossly intact. MOUTH: Oropharynx is normal. NECK: No adenopathy, no JVD. CHEST: Chest with diminished breath sounds bilaterally. No wheezes, rales, or rhonchi. CARDIAC: Regular rate and rhythm. S1 and S2, without murmurs, gallops, or rubs. VASCULAR: No Edema. Peripheral pulses normal and equal in all extremities. ABDOMEN: Soft, non tender , abd distension from ascitis, No rebound or guarding, and no masses palpated. Bowel Sounds normal. MUSCULOSKELETAL: Right BKA , extremities without clubbing, cyanosis or edema. NEUROLOGIC EXAM: Alert, No focal sensory or strength deficits. Speech leticia l. Follows commands. PSYCHIATRIC: Mood dull. - Labs CBC & Chem 7: 02/28/21 12:37 02/28/21 12:37 Labs: Abnormal lab results 02/25/21 02/25/21 02/25/21 Range/Units 16:48 17:16 18:18 RBC (3.65-5.03) M/mm3 Hgb (11.8-15.2) gm/dl Hct (35.5-45.6) % MCV (84-94) fl RDW (13.2-15.2) % Plt Count (140-440) K/mm3 Sodium (137-145) mmol/L Chloride (98-107) mmol/L BUN (9-20) mg/dL Creatinine (0.8-1.3) mg/dL POC Glucose 45 L 123 H 64 L (70-105) mg/dL Hemoglobin A1c (4-6) % 02/26/21 02/26/21 02/26/21 Range/Units 04:33 04:33 04:33 RBC 2.44 L (3.65-5.03) M/mm3 Hgb 7.8 L (11.8-15.2) gm/dl Hct 23.0 L (35.5-45.6) % MCV 95 H (84-94) fl RDW 15.5 H (13.2-15.2) % Plt Count 98 L (140-440) K/mm3 Sodium 133 L (137-145) mmol/L Chloride 94.1 L (98-107) mmol/L BUN 39 H (9-20) mg/dL Creatinine 5.0 H (0.8-1.3) mg/dL POC Glucose (70-105) mg/dL Hemoglobin A1c 7.4 H (4-6) %
--- NOTE | 2021-02-26 14:22 | Progress Note ---
Assessment and Plan 1. ESRD: Patient is on maintenance hemodialysis three times a week, MWF schedule. Meds dosage based on GFR. Missed HD 02/18. Hemodialysis: 02/19, 02/20, 02/22, 02/25. 2. FEN: Monitor lytes and volume status. 3. Anemia, POA: 2/2 ESRD and Liver disease. Epogen with HD. PRBC as needed. 4. Cirrhosis with h/o hepatic encephalopathy: Lactulose. Monitor. 5. DM type 2 uncontrolled: Hyperglycemia on admission. SSI. Monitor. 6. Thrombocytopenia, POA: 7. Hypertension: Monitor BP. Adjust meds as appropriate. Subjective: Patient was seen and examined at the bedside. General Appearance: General appearance: well-developed, appears stated age, not in distress HEENT: ATNC, pupils equal Neck: trachea midline Respiratory: ctab Heart: regular, S1S2, no murmur Abdomen: soft, bowel sounds heard, not tender Integumentary: no rash, warm and dry Neurologic: lethargic Ext: no edema, R BKA Hemodialysis access: R arm AVF Subjective Date of service: 02/26/21 Objective - Lab 02/26/21 04:33 02/26/21 04:33 Most recent lab results Calcium 8.7 mg/dL (8.4-10.2) 02/26/21 04:33 Magnesium 2.10 mg/dL (1.7-2.3) 02/17/21 02:24 Medications & Allergies - Medications Allergies/Adverse Reactions: Allergies No Known Allergies Allergy (Verified 02/16/21 18:26) Home Medications: Home Medications Medication Instructions Recorded Confirmed Last Taken Type Insulin Glargine [Lantus VIAL] 58 unit SUB-Q QHS 01/31/21 02/19/21 Unknown History Lispro Insulin [HumaLOG] See Protocol SQ ACHS 01/31/21 02/19/21 Unknown History Lactulose [Cephulac] 20 gm PO Q8H 30 Days oral.liqd 02/16/21 02/19/21 Unknown Rx Calcium Acetate 2 tab PO TID 02/19/21 02/19/21 Unknown History Inderal 20 mg PO BID 02/19/21 02/19/21 Unknown History allopurinoL 100 mg PO DAILY 02/19/21 02/19/21 Unknown History Active Medications: Generic Name Dose Route Start Last Admin Trade Name Freq PRN Reason Stop Dose Admin Acetaminophen 650 mg 02/18/21 22:38 02/23/21 17:36 Acetaminophen 325 Mg Tab PO 650 mg Q4H PRN Administration Pain MILD(1-3)/Fever >100.5/MOLINA Albuterol 2.5 mg 02/18/21 22:38 Albuterol 2.5 Mg/3 Ml Nebu IH Q3HRT PRN Shortness Of Breath Allopurinol 100 mg 02/20/21 10:00 02/26/21 09:57 Allopurinol 100 Mg Tab PO Not Given QDAY [facility] Calcium Acetate 1,334 mg 02/20/21 08:30 02/26/21 11:48 Calcium Acetate 667 Mg Cap PO Not Given TIDWM [facility] Dextrose 0 ml 02/18/21 23:00 02/25/21 16:56 Dextrose 50% In Water (25gm) 50 Ml Syringe IV 50 ml Q30MIN PRN Administration Hypoglycemia Protocol Diphenhydramine HCl 25 mg 02/23/21 09:10 02/24/21 22:04 Diphenhydramine 25 Mg Cap PO 25 mg BID PRN Administration Itching Famotidine 20 mg 02/19/21 10:00 02/26/21 09:57 Famotidine 20 Mg Tab PO Not Given QAM [facility] Heparin Sodium (Porcine) 5,000 unit 02/19/21 06:00 02/26/21 13:43 Heparin 5,000 Unit/1 Ml Vial SUB-Q Not Given Q8HR [facility] Hydralazine HCl 10 mg 02/18/21 22:56 Hydralazine 20 Mg/1 Ml Inj IV Q6H PRN htn Sodium Chloride 100 mls @ 999 mls/hr 02/19/21 09:06 Nacl 0.9% IV OLIVIA PRN Hypotension Dextrose 1,000 mls @ 42 mls/hr 02/25/21 19:00 02/26/21 10:02 D5w IV 42 mls/hr DIRECT LEYLA Administration Insulin Human Lispro 0 unit 02/19/21 07:30 02/26/21 11:48 Insulin Lispro 100 Unit/Ml SUB-Q Not Given ACHS [facility] Protocol Lactulose 20 gm 02/24/21 14:00 02/26/21 13:43 Lactulose 20 Gm/30 Ml Oral Liqd PO Not Given Q8HR [facility] Ondansetron HCl 4 mg 02/18/21 22:38 02/25/21 06:06 Ondansetron 4 Mg/2 Ml Inj IV 4 mg Q8H PRN Administration Nausea And Vomiting Polyethylene Glycol 17 gm 02/24/21 12:08 02/24/21 12:47 Polyethylene Glycol 3350 17 Gm Powder PO 17 gm QDAY PRN Administration Constipation Propranolol HCl 20 mg 02/20/21 10:00 02/26/21 09:57 Propranolol 10 Mg Tab PO Not Given BID LEYLA Sodium Chloride 10 ml 02/19/21 10:00 02/26/21 09:57 Sodium Chloride 0.9% 10 Ml Flush Syringe IV Not Given BID LEYLA Sodium Chloride 10 ml 02/18/21 22:38 Sodium Chloride 0.9% 10 Ml Flush Syringe IV PRN PRN LINE FLUSH Tramadol HCl 50 mg 02/24/21 13:20 02/25/21 10:17 Tramadol 50 Mg Tab PO 50 mg Q6H PRN Administration Pain, Moderate (4-6) Zolpidem Tartrate 5 mg 02/24/21 09:54 02/24/21 22:36 Zolpidem 5 Mg Tab PO 5 mg QHS PRN Administration Sleep
[2021-02-27] MEDS: HEPARIN 5,000 UNIT/1 ML VIAL SUB-Q SCH ×3 (05:17→21:10)
[2021-02-27] MEDS: LACTULOSE 20 GM/30 ML ORAL LIQD PO SCH ×4 (05:17→22:20)
[2021-02-27] MEDS: DEXTROSE 5% IN WATER 1,000 ML IV SCH (06:18)
[2021-02-27] MEDS: INSULIN LISPRO 100 UNIT/ML SUB-Q SCH ×4 (08:20→21:33)
--- NOTE | 2021-02-27 10:51 | Progress Note ---
Assessment and Plan 1. ESRD: Patient is on maintenance hemodialysis three times a week, MWF schedule. Meds dosage based on GFR. Missed HD 02/18. Hemodialysis: 02/19, 02/20, 02/22, 02/25. 2. FEN: Monitor lytes and volume status. 3. Anemia, POA: 2/2 ESRD and Liver disease. Epogen with HD. PRBC as needed. 4. Cirrhosis with h/o hepatic encephalopathy: Lactulose. Monitor. 5. DM type 2 uncontrolled: Hyperglycemia on admission. SSI. Monitor. 6. Thrombocytopenia, POA: 7. Hypertension: Monitor BP. Adjust meds as appropriate. Subjective: Patient was seen and examined at the bedside while on hemodialysis. Patient refusing his meds. General Appearance: General appearance: well-developed, appears stated age, not in distress HEENT: ATNC, pupils equal Neck: trachea midline Respiratory: ctab Heart: regular, S1S2, no murmur Abdomen: soft, bowel sounds heard, not tender Integumentary: no rash, warm and dry Neurologic: lethargic, non-verbal, not following any command Ext: no edema, R BKA Hemodialysis access: R arm AVF Subjective Date of service: 02/27/21 Objective - Vital Signs Vital signs: Vital Signs - 12hr 02/27/21 05:05 Temperature 97.7 F Pulse Rate 81 Respiratory 20 Rate Blood Pressure 149/70 O2 Sat by Pulse 100 Oximetry - Lab 02/26/21 04:33 02/26/21 04:33 Most recent lab results Calcium 8.7 mg/dL (8.4-10.2) 02/26/21 04:33 Magnesium 2.10 mg/dL (1.7-2.3) 02/17/21 02:24 Medications & Allergies - Medications Allergies/Adverse Reactions: Allergies No Known Allergies Allergy (Verified 02/16/21 18:26) Home Medications: Home Medications Medication Instructions Recorded Confirmed Last Taken Type Insulin Glargine [Lantus VIAL] 58 unit SUB-Q QHS 01/31/21 02/19/21 Unknown History Lispro Insulin [HumaLOG] See Protocol SQ ACHS 01/31/21 02/19/21 Unknown History Lactulose [Cephulac] 20 gm PO Q8H 30 Days oral.liqd 02/16/21 02/19/21 Unknown Rx Calcium Acetate 2 tab PO TID 02/19/21 02/19/21 Unknown History Inderal 20 mg PO BID 02/19/21 02/19/21 Unknown History allopurinoL 100 mg PO DAILY 02/19/21 02/19/21 Unknown History Active Medications: Generic Name Dose Route Start Last Admin Trade Name Freq PRN Reason Stop Dose Admin Acetaminophen 650 mg 02/18/21 22:38 02/23/21 17:36 Acetaminophen 325 Mg Tab PO 650 mg Q4H PRN Administration Pain MILD(1-3)/Fever >100.5/MOLINA Albuterol 2.5 mg 02/18/21 22:38 Albuterol 2.5 Mg/3 Ml Nebu IH Q3HRT PRN Shortness Of Breath Allopurinol 100 mg 02/20/21 10:00 02/26/21 09:57 Allopurinol 100 Mg Tab PO Not Given QDAY LEYLA Calcium Acetate 1,334 mg 02/20/21 08:30 02/26/21 16:55 Calcium Acetate 667 Mg Cap PO Not Given TIDWM LEYLA Dextrose 0 ml 02/18/21 23:00 02/25/21 16:56 Dextrose 50% In Water (25gm) 50 Ml Syringe IV 50 ml Q30MIN PRN Administration Hypoglycemia Protocol Diphenhydramine HCl 25 mg 02/23/21 09:10 02/24/21 22:04 Diphenhydramine 25 Mg Cap PO 25 mg BID PRN Administration Itching Famotidine 20 mg 02/19/21 10:00 02/26/21 09:57 Famotidine 20 Mg Tab PO Not Given QAM [facility] Heparin Sodium (Porcine) 5,000 unit 02/19/21 06:00 02/27/21 05:17 Heparin 5,000 Unit/1 Ml Vial SUB-Q Not Given Q8HR [facility] Hydralazine HCl 10 mg 02/18/21 22:56 Hydralazine 20 Mg/1 Ml Inj IV Q6H PRN htn Sodium Chloride 100 mls @ 999 mls/hr 02/19/21 09:06 Nacl 0.9% IV OLIVIA PRN Hypotension Dextrose 1,000 mls @ 42 mls/hr 02/25/21 19:00 02/27/21 06:18 D5w IV 42 mls/hr DIRECT LEYLA Administration Insulin Human Lispro 0 unit 02/19/21 07:30 02/27/21 08:20 Insulin Lispro 100 Unit/Ml SUB-Q Not Given A[facility]S [facility] Protocol Lactulose 20 gm 02/24/21 14:00 02/27/21 05:17 Lactulose 20 Gm/30 Ml Oral Liqd PO Not Given Q8HR [facility] Ondansetron HCl 4 mg 02/18/21 22:38 02/25/21 06:06 Ondansetron 4 Mg/2 Ml Inj IV 4 mg Q8H PRN Administration Nausea And Vomiting Polyethylene Glycol 17 gm 02/24/21 12:08 02/24/21 12:47 Polyethylene Glycol 3350 17 Gm Powder PO 17 gm QDAY PRN Administration Constipation Propranolol HCl 20 mg 02/20/21 10:00 02/26/21 22:22 Propranolol 10 Mg Tab PO Not Given BID [facility] Sodium Chloride 10 ml 02/19/21 10:00 02/26/21 22:17 Sodium Chloride 0.9% 10 Ml Flush Syringe IV 10 ml BID LEYLA Administration Sodium Chloride 10 ml 02/18/21 22:38 Sodium Chloride 0.9% 10 Ml Flush Syringe IV PRN PRN LINE FLUSH Tramadol HCl 50 mg 02/24/21 13:20 02/25/21 10:17 Tramadol 50 Mg Tab PO 50 mg Q6H PRN Administration Pain, Moderate (4-6) Zolpidem Tartrate 5 mg 02/24/21 09:54 02/24/21 22:36 Zolpidem 5 Mg Tab PO 5 mg QHS PRN Administration Sleep
[2021-02-27] MEDS: FAMOTIDINE 20 MG TAB PO SCH (11:34)
[2021-02-27] MEDS: CALCIUM ACETATE 667 MG CAP PO SCH ×3 (11:34→18:59)
[2021-02-27] MEDS: PROPRANOLOL 10 MG TAB PO SCH ×2 (11:34→22:21)
[2021-02-27] MEDS: allopurinoL 100 MG TAB PO SCH (11:34)
--- NOTE | 2021-02-27 14:33 | Procedure Note ---
Date of procedure: 02/27/21 Pre-op diagnosis: ascites Post-op diagnosis: same Procedure: US paracentesis Findings: moderate ascites Anesthesia: local Surgeon: AL WEINBERG Estimated blood loss: none Pathology: list (120cc) Specimen disposition: to lab Condition: stable Disposition: floor
--- NOTE | 2021-02-27 14:44 | Progress Note ---
Assessment and Plan 55 YO Male with ESRD on HD, Noncompliance with outpatient dialysis, Anemia, HBV, Chronic Liver Disease, Cirrhosis complicated by Esophageal Varices, HTN, Debility, DM presents to ED with confusion with diminished cognition. Patient family report the patient was "not acting like himself" and found to have worsening confusion over the past 2 days. In the ER the patient was found to have hepatic encephalopathy complicated by diminished cognition, end-stage renal disease in need of urgent dialysis, as well as uncontrolled diabetes, and a cidosis. Nephrology team consulted in ED and patient was then admitted for further evaluation and Mx. A/p -- Hepatic encephalopathy due to hepatic cirrhosis cont lactulose, Neuro check, seizure precaution, aspiration precaution, fall precautions, continue to monitor. -- End stage renal disease Nephrology team consulted, strict I's/O, monitor urine output every shift, dialysis as per renal team, avoid nephrotoxic agents. --Metabolic Acidosis Nephrology team consulted, dialysis as per renal team. --Hyponatremia Monitor BMP, monitor fluid balance. -- Hyperammonemia Continue lactulose --Diabetes mellitus with hyperglycemia Consistent carb diet, SSI -- hyperkalemia, Improvement with dialysis --Ascitis, s/p paracentesis today --Sacral wound, wound care -- Moderate Protein Calorie Malnutrition, nutrition consulted --DVT Px, SCD --DNR code status --Disposition: needs placement, CM waiting for placement Daily clinical course: 02/19: Resume dialysis will adjust insulin for better coverage. Very poor prognosis considering poor medical compliance. Agree with hospice recommendation. Will obtain wound care to continue to manage. Monitor anemia as patient was pretty anemic during the last hospitalization. Required transf usion. 02/20: Continues to undergo dialysis no change in mental status noted. Tolerating medications. Blood sugar mildly elevated adjusted insulin yesterday when awake for the patient received a dose today and if still elevated will adjust. Again case management is working on discharge plan for this patient as he is pending placement 02/21 patient complains of right hip pain. He said he fell few weeks ago and is concerned about another fracture. He had a fracture about 8 weeks ago and had surgery. Will obtain X ray right hip. Patient pending placement. 02/22 Patient seen in Dialysis Unit. He states hip pain improved. No other complaints. Right hip X ray done yesterday report read may be healing fracture or acute fracture. Will discuss with Orthopedic Surgeon Patient pending placement 6/ Less hip pain. Today complains of generalized itching. Will start Benadryl po prn. Orthopedic consulted to evaluate right hip. Patient pending placement 6/6 Less hip pain. Generalized itching now resolved. Orthopedic consulted to evaluate right hip. He complains of sleeplessness. Will give Ambien prn Patient pending placement 02/25 Patient requested DNR status yesterday. I discussed with him and he signed forms. He also complains of worsening abdominal distension and requested tapping, Will order paracentesis. Right hip evaluated by Dr. Trivedi and conservative management recommended. 02/26: Plan for paracentesis today. Need to set up dialysis as outpatient. manager location working on discharge planning. 02/27: Patient did not sign the consent for paracentesis yesterday so paracentesis was done today and aspirated 6.2L ascitic fluid. Patient refusing medication per RN. Getting dialysis. Patient noted slightly altered today, will place NG tube remains altered and keep refusing oral meds, order for ammonia level and will cont lactulose. Subjective Date of service: 02/27/21 Interval history: Patient seen and examined. Medical records and medication list reviewed. No acute event overnight noted by the RN. Patient denies any chest pain or difficulty breathing. Patient is tolerating diet. Discussed plan of care at bedside with patient. s/p paracentesis today Objective - Exam Narrative Exam: GENERAL: Not in acute distress, HEAD: Normocephalic, atraumatic. EYES: Pupils are equal. Extraocular motions intact. Icteric sclera EARS: Hearing grossly intact. MOUTH: Oropharynx is normal. NECK: No adenopathy, no JVD. CHEST: Chest with diminished breath sounds bilaterally. No wheezes, rales, or rhonchi. CARDIAC: Regular rate and rhythm. S1 and S2, without murmurs, gallops, or rubs. VASCULAR: No Edema. Peripheral pulses normal and equal in all extremities. ABDOMEN: Soft, non tender , abd distension from ascitis, No rebound or guarding, and no masses palpated. Bowel Sounds normal. MUSCULOSKELETAL: Right BKA , extremities without clubbing, cyanosis or edema. NEUROLOGIC EXAM: Alert, No focal sensory or strength deficits. Speech normal. Follows commands. PSYCHIATRIC: Mood dull. - Constitutional Vitals: Vital Signs - 12hr 06/09/21 06/09/21 06/09/21 05:05 09:05 09:35 Temperature 97.7 F 98.9 F Pulse Rate 81 80 78 Respiratory 20 20 Rate Blood Pressure 149/70 136/69 145/74 O2 Sat by Pulse 100 Oximetry 02/27/21 02/27/21 02/27/21 09:45 10:00 10:15 Temperature Pulse Rate 79 77 78 Respiratory Rate Blood Pressure 143/76 141/77 170/94 O2 Sat by Pulse Oximetry 02/27/21 02/27/21 02/27/21 10:30 10:45 11:00 Temperature Pulse Rate 798 H 78 75 Respiratory Rate Blood Pressure 156/82 134/72 136/66 O2 Sat by Pulse Oximetry 02/27/21 02/27/21 02/27/21 11:15 11:30 11:45 Temperature Pulse Rate 77 82 79 Respiratory Rate Blood Pressure 142/78 136/67 158/74 O2 Sat by Pulse Oximetry 02/27/21 02/27/21 02/27/21 12:00 12:15 12:30 Temperature Pulse Rate 82 83 78 Respiratory Rate Blood Pressure 162/76 154/96 137/73 O2 Sat by Pulse Oximetry 02/27/21 02/27/21 12:45 13:15 Temperature 98.9 F Pulse Rate 79 79 Respiratory 16 Rate Blood Pressure 129/73 135/72 O2 Sat by Pulse Oximetry - Labs CBC & Chem 7: 02/28/21 12:37 02/28/21 12:37 Labs: Abnormal lab results 02/26/21 02/27/21 02/27/21 Range/Units 21:34 02:03 08:10 POC Glucose 114 H 118 H 115 H (70-105) mg/dL
--- NOTE | 2021-02-27 16:27 | Ultrasound Report ---
ULTRASOUND-GUIDED PARACENTESIS HISTORY: ascitis from cirrhosis. PROCEDURE: The risks (including but not limited to bleeding, infection, and bowel injury) and benefi ts were explained to the patient and informed consent was obtained. A time out procedure was perform ed. Ultrasound was used to evaluate the abdomen and locate the largest ascites fluid pocket. Once the sk in was marked, the procedure site was prepped and draped in the usual sterile fashion and lidocaine w as used for local anesthesia. A skin beck was made and a 5 [place]kin[place] centesis catheter was placed. The patient was monitored closely throughout the procedure, and a total of 6200 mL of yellow fluid was a spirated. No labs were ordered. The patient tolerated the procedure well with no complications. IMPRESSION: Successful ultrasound-guided paracentesis as described. Signer Name: Miguel Banks Jr, MD Signed: 02/27/2021 4:22 PM Workstation Name: [id number]
[2021-02-27] MEDS: ONDANSETRON 4 MG/2 ML INJ IV PRN (17:10)
[2021-02-28] MEDS: LACTULOSE 20 GM/30 ML ORAL LIQD PO SCH ×3 (06:17→22:29)
[2021-02-28] MEDS: HEPARIN 5,000 UNIT/1 ML VIAL SUB-Q SCH ×4 (06:18→22:29)
[2021-02-28] MEDS: INSULIN LISPRO 100 UNIT/ML SUB-Q SCH ×4 (09:37→22:30)
[2021-02-28] MEDS: allopurinoL 100 MG TAB PO SCH (09:41)
[2021-02-28] MEDS: CALCIUM ACETATE 667 MG CAP PO SCH ×3 (09:41→17:50)
[2021-02-28] MEDS: FAMOTIDINE 20 MG TAB PO SCH (09:41)
[2021-02-28] MEDS: PROPRANOLOL 10 MG TAB PO SCH ×2 (09:43→22:30)
--- NOTE | 2021-02-28 10:15 | Progress Note ---
Assessment and Plan 1. ESRD: Patient is on maintenance hemodialysis three times a week, MWF schedule. Meds dosage based on GFR. Missed HD 02/18. Hemodialysis: 02/19, 02/20, 02/22, 02/25, 02/27. 2. FEN: Monitor lytes and volume status. 3. Anemia, POA: 2/2 ESRD and Liver disease. Epogen with HD. PRBC as needed. 4. Cirrhosis with h/o hepatic encephalopathy: Lactulose. Monitor. 5. DM type 2 uncontrolled: Hyperglycemia on admission. SSI. Monitor. 6. Thrombocytopenia, POA: 7. Hypertension: Monitor BP. Adjust meds as appropriate. Subjective: Patient was seen and examined at the bedside while on hemodialysis. General Appearance: General appearance: well-developed, appears stated age, not in distress HEENT: ATNC, pupils equal Neck: trachea midline Respiratory: ctab Heart: regular, S1S2, no murmur Abdomen: soft, bowel sounds heard, not tender Integumentary: no rash, warm and dry Neurologic: alert, conversing, moving extremities Ext: no edema, R BKA Hemodialysis access: R arm AVF Subjective Date of service: 02/28/21 Objective - Vital Signs Vital signs: Vital Signs - 12hr 02/27/21 02/28/21 02/28/21 22:27 04:33 09:39 Temperature 98.2 F 98.6 F 97.9 F Pulse Rate 85 84 82 Respiratory 16 14 18 Rate Blood Pressure 125/67 125/64 112/47 O2 Sat by Pulse 100 98 97 Oximetry 02/28/21 09:43 Temperature Pulse Rate Respiratory Rate Blood Pressure 112/47 O2 Sat by Pulse Oximetry - Lab 02/28/21 12:37 02/28/21 12:37 Most recent lab results Calcium 8.7 mg/dL (8.4-10.2) 02/26/21 04:33 Magnesium 2.10 mg/dL (1.7-2.3) 02/17/21 02:24 Medications & Allergies - Medications Allergies/Adverse Reactions: Allergies No Known Allergies Allergy (Verified 02/16/21 18:26) Home Medications: Home Medications Medication Instructions Recorded Confirmed Last Taken Type Insulin Glargine [Lantus VIAL] 58 unit SUB-Q QHS 01/31/21 02/19/21 Unknown History Lispro Insulin [HumaLOG] See Protocol SQ ACHS 01/31/21 02/19/21 Unknown History Lactulose [Cephulac] 20 gm PO Q8H 30 Days oral.liqd 02/16/21 02/19/21 Unknown Rx Calcium Acetate 2 tab PO TID 02/19/21 02/19/21 Unknown History Inderal 20 mg PO BID 02/19/21 02/19/21 Unknown History allopurinoL 100 mg PO DAILY 02/19/21 02/19/21 Unknown History Active Medications: Generic Name Dose Route Start Last Admin Trade Name Freq PRN Reason Stop Dose Admin Acetaminophen 650 mg 02/18/21 22:38 02/23/21 17:36 Acetaminophen 325 Mg Tab PO 650 mg Q4H PRN Administration Pain MILD(1-3)/Fever >100.5/MOLINA Albuterol 2.5 mg 02/18/21 22:38 Albuterol 2.5 Mg/3 Ml Nebu IH Q3HRT PRN Shortness Of Breath Allopurinol 100 mg 02/20/21 10:00 02/28/21 09:41 Allopurinol 100 Mg Tab PO 100 mg QDAY LEYLA Administration Calcium Acetate 1,334 mg 02/20/21 08:30 02/28/21 09:41 Calcium Acetate 667 Mg Cap PO 1,334 mg TIDWM LEYLA Administration Dextrose 0 ml 02/18/21 23:00 02/25/21 16:56 Dextrose 50% In Water (25gm) 50 Ml Syringe IV 50 ml Q30MIN PRN Administration Hypoglycemia Protocol Diphenhydramine HCl 25 mg 02/23/21 09:10 02/24/21 22:04 Diphenhydramine 25 Mg Cap PO 25 mg BID PRN Administration Itching Famotidine 20 mg 02/19/21 10:00 02/28/21 09:41 Famotidine 20 Mg Tab PO 20 mg QAM LEYLA Administration Heparin Sodium (Porcine) 5,000 unit 02/19/21 06:00 02/28/21 06:18 Heparin 5,000 Unit/1 Ml Vial SUB-Q Not Given Q8HR LEYLA Hydralazine HCl 10 mg 02/18/21 22:56 Hydralazine 20 Mg/1 Ml Inj IV Q6H PRN htn Sodium Chloride 100 mls @ 999 mls/hr 02/19/21 09:06 Nacl 0.9% IV OLIVIA PRN Hypotension Dextrose 1,000 mls @ 42 mls/hr 02/25/21 19:00 02/27/21 06:18 D5w IV 42 mls/hr DIRECT LEYLA Administration Insulin Human Lispro 0 unit 02/19/21 07:30 02/28/21 09:37 Insulin Lispro 100 Unit/Ml SUB-Q 2 unit ACHS LEYLA Administration Protocol Lactulose 20 gm 02/24/21 14:00 02/28/21 06:17 Lactulose 20 Gm/30 Ml Oral Liqd PO Not Given Q8HR LEYLA Ondansetron HCl 4 mg 02/18/21 22:38 02/27/21 17:10 Ondansetron 4 Mg/2 Ml Inj IV 4 mg Q8H PRN Administration Nausea And Vomiting Polyethylene Glycol 17 gm 02/24/21 12:08 02/24/21 12:47 Polyethylene Glycol 3350 17 Gm Powder PO 17 gm QDAY PRN Administration Constipation Propranolol HCl 20 mg 02/20/21 10:00 02/28/21 09:43 Propranolol 10 Mg Tab PO Not Given BID LEYLA Sodium Chloride 10 ml 02/19/21 10:00 02/28/21 09:44 Sodium Chloride 0.9% 10 Ml Flush Syringe IV 10 ml BID LEYLA Administration Sodium Chloride 10 ml 02/18/21 22:38 Sodium Chloride 0.9% 10 Ml Flush Syringe IV PRN PRN LINE FLUSH Tramadol HCl 50 mg 02/24/21 13:20 02/25/21 10:17 Tramadol 50 Mg Tab PO 50 mg Q6H PRN Administration Pain, Moderate (4-6) Zolpidem Tartrate 5 mg 02/24/21 09:54 02/24/21 22:36 Zolpidem 5 Mg Tab PO 5 mg QHS PRN Administration Sleep
[2021-02-28] MEDS: ONDANSETRON 4 MG/2 ML INJ IV PRN (12:32)
[2021-02-28 13:19] LABS: Basophils % (Auto) 0.7 % (0.0-1.8); Eosinophils % (Auto) 1.1 % (0.0-4.3); Hematocrit 20.5 % (35.5-45.6); Hemoglobin 7.1 gm/dl (11.8-15.2); Lymphocytes # (Auto) 0.5 K/mm3 (1.2-5.4); Lymphocytes % (Auto) 13.2 % (13.4-35.0); Mean Corpuscular HGB Conc 35 % (32-34); Mean Corpuscular Volume 93 fl (84-94); Monocytes # (Auto) 0.4 K/mm3 (0.0-0.8); Monocytes % (Auto) 10.6 % (0.0-7.3); Platelet Count 113 K/mm3 (140-440); Red Blood Count 2.22 M/mm3 (3.65-5.03)
[2021-02-28 14:38] LABS: Hepatitis B Surface Antigen Non-Reactive (Negative); Hepatitis C Virus Antibody Non-Reactive (NonReactive)
[2021-02-28 14:39] LABS: Calcium 8.4 mg/dL (8.4-10.2)
--- NOTE | 2021-02-28 16:03 | Progress Note ---
Assessment and Plan 55 YO Male with ESRD on HD, Noncompliance with outpatient dialysis, Anemia, HBV, Chronic Liver Disease, Cirrhosis complicated by Esophageal Varices, HTN, Debility, DM presents to ED with confusion with diminished cognition. Patient family report the patient was "not acting like himself" and found to have worsening confusion over the past 2 days. In the ER the patient was found to have hepatic encephalopathy complicated by diminished cognition, end-stage renal disease in need of urgent dialysis, as well as uncontrolled diabetes, and a cidosis. Nephrology team consulted in ED and patient was then admitted for further evaluation and Mx. A/p -- Hepatic encephalopathy due to hepatic cirrhosis cont lactulose, Neuro check, seizure precaution, aspiration precaution, fall precautions, continue to monitor. -- End stage renal disease Nephrology team consulted, strict I's/O, monitor urine output every shift, dialysis as per renal team, avoid nephrotoxic agents. --Metabolic Acidosis Nephrology team consulted, dialysis as per renal team. --Hyponatremia Monitor BMP, monitor fluid balance. -- Hyperammonemia Continue lactulose --Diabetes mellitus with hyperglycemia Consistent carb diet, SSI -- hyperkalemia, Improvement with dialysis --Ascitis, s/p paracentesis today --Sacral wound, wound care -- Moderate Protein Calorie Malnutrition, nutrition consulted --DVT Px, SCD --DNR code status --Disposition: needs placement, CM waiting for placement Daily clinical course: 02/19: Resume dialysis will adjust insulin for better coverage. Very poor prognosis considering poor medical compliance. Agree with hospice recommendation. Will obtain wound care to continue to manage. Monitor anemia as patient was pretty anemic during the last hospitalization. Required transf usion. 02/20: Continues to undergo dialysis no change in mental status noted. Tolerating medications. Blood sugar mildly elevated adjusted insulin yesterday when awake for the patient received a dose today and if still elevated will adjust. Again case management is working on discharge plan for this patient as he is pending placement 02/21 patient complains of right hip pain. He said he fell few weeks ago and is concerned about another fracture. He had a fracture about 8 weeks ago and had surgery. Will obtain X ray right hip. Patient pending placement. 02/22 Patient seen in Dialysis Unit. He states hip pain improved. No other complaints. Right hip X ray done yesterday report read may be healing fracture or acute fracture. Will discuss with Orthopedic Surgeon Patient pending placement 02/23 Less hip pain. Today complains of generalized itching. Will start Benadryl po prn. Orthopedic consulted to evaluate right hip. Patient pending placement / Less hip pain. Generalized itching now resolved. Orthopedic consulted to evaluate right hip. He complains of sleeplessness. Will give Ambien prn Patient pending placement 02/25 Patient requested DNR status yesterday. I discussed with him and he signed forms. He also complains of worsening abdominal distension and requested tapping, Will order paracentesis. Right hip evaluated by Dr. Trivedi and conservative management recommended. 02/26: Plan for paracentesis today. Need to set up dialysis as outpatient. 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 02/27: Patient did not sign the consent for paracentesis yesterday so paracentesis was done today and aspirated 6.2L ascitic fluid. Patient refusing medication per RN. Getting dialysis. Patient noted slightly altered today, will place NG tube remains altered and keep refusing oral meds, order for ammonia level and will cont lactulose. 02/28: Patient appears much more calm and cooperative today. He stated that he has been refusing procedure and medication as he believes he was not in the right state of his mind. Patient acknowledges the importance of being compliant and he promises that he will take the medications as he will be given. Discharge planning per case management as patient would need outpatient dialysis center set up and personal intermediate set up. Subjective Date of service: 02/28/21 Interval history: Patient seen and examined. Medical records and medication list reviewed. No acute event overnight noted by the RN. Patient denies any chest pain or difficulty breathing. Patient is tolerating diet. Discussed plan of care at bedside with patient. Need placement on discharge Objective - Exam Narrative Exam: GENERAL: Not in acute distress, HEAD: Normocephalic, atraumatic. EYES: Pupils are equal. Extraocular motions intact. Icteric sclera EARS: Hearing grossly intact. MOUTH: Oropharynx is normal. NECK: No adenopathy, no JVD. CHEST: Chest with diminished breath sounds bilaterally. No wheezes, rales, or rhonchi. CARDIAC: Regular rate and rhythm. S1 and S2, without murmurs, gallops, or rubs. VASCULAR: No Edema. Peripheral pulses normal and equal in all extremities. ABDOMEN: Soft, non tender , abd distension from ascitis, No rebound or guarding, and no masses palpated. Bowel Sounds normal. MUSCULOSKELETAL: Right BKA , extremities without clubbing, cyanosis or edema. NEUROLOGIC EXAM: Alert and oriented x3, No focal sensory or strength deficits. Speech normal. Follows commands. PSYCHIATRIC: Mood dull. - Constitutional Vitals: Vital Signs - 12hr 02/28/21 02/28/21 02/28/21 04:33 09:39 09:43 Temperature 98.6 F 97.9 F Pulse Rate 84 82 Respiratory 14 18 Rate Blood Pressure 125/64 112/47 112/47 O2 Sat by Pulse 98 97 Oximetry - Labs CBC & Chem 7: 02/28/21 12:37 02/28/21 12:37 Labs: Abnormal lab results 02/27/21 02/27/21 02/27/21 Range/Units 17:01 20:31 23:57 WBC (4.5-11.0) K/mm3 RBC (3.65-5.03) M/mm3 Hgb (11.8-15.2) gm/dl Hct (35.5-45.6) % MCHC (32-34) % Plt Count (140-440) K/mm3 Lymph % (Auto) (13.4-35.0) % [place] % (Auto) (0.0-7.3) % Lymph # (Auto) (1.2-5.4) K/mm3 Seg Neutrophils % (40.0-70.0) % Sodium (137-145) mmol/L Chloride (98-107) mmol/L BUN (9-20) mg/dL Creatinine (0.8-1.3) mg/dL Glucose (75-100) mg/dL POC Glucose 110 H 166 H 200 H (70-105) mg/dL Ammonia (25-60) umol/L 02/28/21 02/28/21 02/28/21 Range/Units 04:14 08:08 12:05 WBC (4.5-11.0) K/mm3 RBC (3.65-5.03) M/mm3 Hgb (11.8-15.2) gm/dl Hct (35.5-45.6) % MCHC (32-34) % Plt Count (140-440) K/mm3 Lymph % (Auto) (13.4-35.0) % [place] % (Auto) (0.0-7.3) % Lymph # (Auto) (1.2-5.4) K/mm3 Seg Neutrophils % (40.0-70.0) % Sodium (137-145) mmol/L Chloride (98-107) mmol/L BUN (9-20) mg/dL Creatinine (0.8-1.3) mg/dL Glucose (75-100) mg/dL POC Glucose 169 H 161 H 357 H (70-105) mg/dL Ammonia (25-60) umol/L 02/28/21 02/28/21 02/28/21 Range/Units 12:37 12:37 12:37 WBC 3.6 L (4.5-11.0) K/mm3 RBC 2.22 L (3.65-5.03) M/mm3 Hgb 7.1 L (11.8-15.2) gm/dl Hct 20.5 L (35.5-45.6) % MCHC 35 H (32-34) % Plt Count 113 L (140-440) K/mm3 Lymph % (Auto) 13.2 L (13.4-35.0) % [place] % (Auto) 10.6 H (0.0-7.3) % Lymph # (Auto) 0.5 L (1.2-5.4) K/mm3 Seg Neutrophils % 74.4 H (40.0-70.0) % Sodium 130 L (137-145) mmol/L Chloride 88.7 L (98-107) mmol/L BUN 54 H (9-20) mg/dL Creatinine 6.5 H (0.8-1.3) mg/dL Glucose 295 H (75-100) mg/dL POC Glucose (70-105) mg/dL Ammonia 138.0 H (25-60) umol/L
[2021-02-28] MEDS: ZOLPIDEM 5 MG TAB PO PRN (22:29)
[2021-03-01] MEDS: HEPARIN 5,000 UNIT/1 ML VIAL SUB-Q SCH ×3 (05:11→22:16)
[2021-03-01] MEDS: LACTULOSE 20 GM/30 ML ORAL LIQD PO SCH ×3 (05:11→22:12)
[2021-03-01] MEDS: CALCIUM ACETATE 667 MG CAP PO SCH ×3 (08:51→17:22)
[2021-03-01] MEDS: INSULIN LISPRO 100 UNIT/ML SUB-Q SCH ×4 (08:51→22:50)
[2021-03-01] MEDS: diphenhydrAMINE 25 MG CAP PO PRN (10:30)
--- NOTE | 2021-03-01 11:55 | Progress Note ---
Assessment and Plan 1. ESRD: Patient is on maintenance hemodialysis three times a week, MWF schedule. Meds dosage based on GFR. Missed HD 02/18. Hemodialysis: 02/19, 02/20, 02/22, 02/25, 02/27. 2. FEN: Monitor lytes and volume status. 3. Anemia, POA: 2/2 ESRD and Liver disease. Epogen with HD. PRBC as needed. 4. Cirrhosis with h/o hepatic encephalopathy: Lactulose. Monitor. 5. DM type 2 uncontrolled: Hyperglycemia on admission. SSI. Monitor. 6. Thrombocytopenia, POA: 7. Hypertension: Monitor BP. Adjust meds as appropriate. Subjective: Patient was seen and examined at the bedside while on hemodialysis. General Appearance: General appearance: well-developed, appears stated age, not in distress HEENT: ATNC, pupils equal Neck: trachea midline Respiratory: ctab Heart: regular, S1S2, no murmur Abdomen: soft, bowel sounds heard, not tender Integumentary: no rash, warm and dry Neurologic: alert, conversing, moving extremities Ext: no edema, R BKA Hemodialysis access: R arm AVF Subjective Date of service: 03/01/21 Objective - Vital Signs Vital signs: Vital Signs - 12hr 03/01/21 03/01/21 03/01/21 04:36 09:00 09:04 Temperature 97.9 F 98.3 F Pulse Rate 85 82 79 Respiratory 18 18 Rate Blood Pressure 117/65 132/70 118/66 O2 Sat by Pulse 100 Oximetry 03/01/21 03/01/21 03/01/21 09:15 09:30 09:45 Temperature Pulse Rate 76 84 86 Respiratory Rate Blood Pressure 107/53 133/65 113/62 O2 Sat by Pulse Oximetry 03/01/21 03/01/21 03/01/21 10:00 10:15 10:30 Temperature Pulse Rate 85 84 91 H Respiratory Rate Blood Pressure 113/64 129/62 124/56 O2 Sat by Pulse Oximetry 03/01/21 03/01/21 03/01/21 10:45 11:00 11:15 Temperature Pulse Rate 87 89 85 Respiratory Rate Blood Pressure 107/57 127/63 104/57 O2 Sat by Pulse Oximetry 03/01/21 03/01/21 11:30 11:45 Temperature Pulse Rate 81 89 Respiratory Rate Blood Pressure 102/52 103/56 O2 Sat by Pulse Oximetry - Lab 02/28/21 12:37 02/28/21 12:37 Most recent lab results Calcium 8.4 mg/dL (8.4-10.2) 02/28/21 12:37 Magnesium 2.10 mg/dL (1.7-2.3) 02/17/21 02:24 Medications & Allergies - Medications Allergies/Adverse Reactions: Allergies No Known Allergies Allergy (Verified 02/16/21 18:26) Home Medications: Home Medications Medication Instructions Recorded Confirmed Last Taken Type Calcium Acetate [Phoslo] 1,334 mg PO TIDWM #90 capsule 03/01/21 Unknown Rx Famotidine [Pepcid] 20 mg PO QAM #30 tablet 03/01/21 Unknown Rx Lactulose [Cephulac] 20 gm PO Q8HR 30 Days 03/01/21 Unknown Rx Lispro Insulin [HumaLOG] See Protocol SQ ACHS 30 Days 03/01/21 Unknown Rx allopurinoL [Zyloprim] 100 mg PO QDAY #30 tablet 03/01/21 Unknown Rx propranoloL [Inderal] 20 mg PO BID #60 tablet 03/01/21 Unknown Rx Active Medications: Generic Name Dose Route Start Last Admin Trade Name Freq PRN Reason Stop Dose Admin Acetaminophen 650 mg 02/18/21 22:38 02/23/21 17:36 Acetaminophen 325 Mg Tab PO 650 mg Q4H PRN Administration Pain MILD(1-3)/Fever >100.5/MOLINA Albuterol 2.5 mg 02/18/21 22:38 Albuterol 2.5 Mg/3 Ml Nebu IH Q3HRT PRN Shortness Of Breath Allopurinol 100 mg 02/20/21 10:00 02/28/21 09:41 Allopurinol 100 Mg Tab PO 100 mg QDAY LEYLA Administration Calcium Acetate 1,334 mg 02/20/21 08:30 03/01/21 08:51 Calcium Acetate 667 Mg Cap PO Not Given TIDWM LEYLA Dextrose 0 ml 02/18/21 23:00 02/25/21 16:56 Dextrose 50% In Water (25gm) 50 Ml Syringe IV 50 ml Q30MIN PRN Administration Hypoglycemia Protocol Diphenhydramine HCl 25 mg 02/23/21 09:10 03/01/21 10:30 Diphenhydramine 25 Mg Cap PO 25 mg BID PRN Administration Itching Famotidine 20 mg 02/19/21 10:00 02/28/21 09:41 Famotidine 20 Mg Tab PO 20 mg QAM LEYLA Administration Heparin Sodium (Porcine) 5,000 unit 02/19/21 06:00 03/01/21 05:11 Heparin 5,000 Unit/1 Ml Vial SUB-Q Not Given Q8HR [facility] Hydralazine HCl 10 mg 02/18/21 22:56 Hydralazine 20 Mg/1 Ml Inj IV Q6H PRN htn Sodium Chloride 100 mls @ 999 mls/hr 02/19/21 09:06 Nacl 0.9% IV OLIVIA PRN Hypotension Insulin Human Lispro 0 unit 02/19/21 07:30 03/01/21 08:51 Insulin Lispro 100 Unit/Ml SUB-Q Not Given [facility] Protocol Lactulose 20 gm 02/24/21 14:00 03/01/21 05:11 Lactulose 20 Gm/30 Ml Oral Liqd PO Not Given Q8HR [facility] Ondansetron HCl 4 mg 02/18/21 22:38 02/28/21 12:32 Ondansetron 4 Mg/2 Ml Inj IV 4 mg Q8H PRN Administration Nausea And Vomiting Polyethylene Glycol 17 gm 02/24/21 12:08 02/24/21 12:47 Polyethylene Glycol 3350 17 Gm Powder PO 17 gm QDAY PRN Administration Constipation Propranolol HCl 20 mg 02/20/21 10:00 02/28/21 22:30 Propranolol 10 Mg Tab PO Not Given BID LEYLA Sodium Chloride 10 ml 02/19/21 10:00 02/28/21 22:29 Sodium Chloride 0.9% 10 Ml Flush Syringe IV 10 ml BID LEYLA Administration Sodium Chloride 10 ml 02/18/21 22:38 Sodium Chloride 0.9% 10 Ml Flush Syringe IV PRN PRN LINE FLUSH Tramadol HCl 50 mg 02/24/21 13:20 02/25/21 10:17 Tramadol 50 Mg Tab PO 50 mg Q6H PRN Administration Pain, Moderate (4-6) Zolpidem Tartrate 5 mg 02/24/21 09:54 02/28/21 22:29 Zolpidem 5 Mg Tab PO 5 mg QHS PRN Administration Sleep
[2021-03-01] MEDS: EPOETIN ALFA-EPBX 20,000 UNIT/1 ML VIAL SUB-Q PRN (12:00)
--- NOTE | 2021-03-01 12:25 | Discharge Summary ---
Providers - Providers Date of Admission: 02/19/21 16:35 Date of discharge: 03/01/21 Attending physician: JEN CARPENTER 02/17/21 02:42 Consult to Case Management [CONS] Stat Services Needed at Discharge: Body Welder Notified:: awaiting call back 02/18/21 22:13 Consult to Physician [CONS] Urgent Comment: Dr. Edwards spoke with Dr. Pool @ [phone] Consulting Provider: MOLLY TOVAR Physician Instructions: Reason For Exam: esrd 02/18/21 22:40 Consult to Dietitian/Nutrition [CONS] Routine Physician Instructions: Reason For Exam: Reason for Consult: Diet education 02/19/21 07:34 Consult to Wound/ET Nurse [CONS] Routine Reason For Exam: wound eval 02/22/21 14:04 Consult to Physician [CONS] Routine Comment: Consulting Provider: NEFTALI CAMARILLO Physician Instructions: Reason For Exam: Right hip pain, recent hip fracture post surg 02/26/21 14:06 Occupational Therapy Evaluate and Treat [CONS] Routine Comment: Reason For Exam: Eval & Treat Physical Therapy Evaluation and Treat [CONS] Routine Comment: Reason For Exam: Eval & Treat 02/26/21 22:37 Consult to Wound/ET Nurse [CONS] Routine Reason For Exam: wound eval 02/28/21 23:29 Consult to Wound/ET Nurse [CONS] Routine Reason For Exam: puss coming out between scrotum and penis Primary care physician: [employer] APPRENTICE Hospitalization Condition: Good Disposition: [id number] HOME UNDER HOME [facility] Time spent for discharge: 34 minutes Core Measure Documentation - Palliative Care Palliative Care/ Comfort Measures: Not Applicable - Core Measures Any of the following diagnoses?: none Exam - Physical Exam Narrative exam: GENERAL: Not in acute distress, HEAD: Normocephalic, atraumatic. EYES: Pupils are equal. Extraocular motions intact. Icteric sclera EARS: Hearing grossly intact. MOUTH: Oropharynx is normal. NECK: No adenopathy, no JVD. CHEST: Chest with diminished breath sounds bilaterally. No wheezes, rales, or rhonchi. CARDIAC: Regular rate and rhythm. S1 and S2, without murmurs, gallops, or rubs. VASCULAR: No Edema. Peripheral pulses normal and equal in all extremities. ABDOMEN: Soft, non tender , abd distension from ascitis, No rebound or guarding, and no masses palpated. Bowel Sounds normal. MUSCULOSKELETAL: Right BKA , extremities without clubbing, cyanosis or edema. NEUROLOGIC EXAM: Alert and oriented x3, No focal sensory or strength deficits. Speech normal. Follows commands. PSYCHIATRIC: Mood dull. - Constitutional Vitals: Temp Pulse Resp BP Pulse Ox 98.3 F 89 18 103/56 100 03/01/21 09:00 03/01/21 11:45 03/01/21 09:00 03/01/21 11:45 03/01/21 04:36 Plan Activity: advance as tolerated, fall precautions Weight Bearing Status: Weight Bear as Tolerated Diet: renal, low carbohydrate Follow up with: PRIMARY CARE, [Primary Care Provider] - 3-5 Days TIP ESCOBAR MD [Staff Physician] - 7 Days MARY LOU RED MD [Staff Physician] - 7 Days Prescriptions: Lactulose [Cephulac] 20 gm PO Q8HR 30 Days Lispro Insulin [HumaLOG] See Protocol SQ ACHS 30 Days propranoloL [Inderal] 20 mg PO BID #60 tablet Famotidine [Pepcid] 20 mg PO QAM #30 tablet Calcium Acetate [Phoslo] 1,334 mg PO TIDWM #90 capsule allopurinoL [Zyloprim] 100 mg PO QDAY #30 tablet
[2021-03-01] MEDS: FAMOTIDINE 20 MG TAB PO SCH (13:23)
[2021-03-01] MEDS: allopurinoL 100 MG TAB PO SCH (13:23)
[2021-03-01] MEDS: PROPRANOLOL 10 MG TAB PO SCH ×2 (13:25→22:16)
[2021-03-02] MEDS: LACTULOSE 20 GM/30 ML ORAL LIQD PO SCH ×3 (05:37→23:13)
[2021-03-02] MEDS: HEPARIN 5,000 UNIT/1 ML VIAL SUB-Q SCH ×3 (05:38→23:16)
[2021-03-02] MEDS: INSULIN LISPRO 100 UNIT/ML SUB-Q SCH ×4 (07:30→23:20)
[2021-03-02] MEDS: CALCIUM ACETATE 667 MG CAP PO SCH ×3 (08:11→17:30)
[2021-03-02] MEDS: PROPRANOLOL 10 MG TAB PO SCH ×2 (10:07→23:13)
[2021-03-02] MEDS: FAMOTIDINE 20 MG TAB PO SCH (10:07)
[2021-03-02] MEDS: allopurinoL 100 MG TAB PO SCH (10:08)
--- NOTE | 2021-03-02 10:12 | Progress Note ---
Assessment and Plan 1. ESRD: Patient is on maintenance hemodialysis three times a week, MWF schedule. Meds dosage based on GFR. Missed HD 02/18. Hemodialysis: 02/19, 02/20, 02/22, 02/25, 02/27, 03/01. 2. FEN: Monitor lytes and volume status. 3. Anemia, POA: 2/2 ESRD and Liver disease. Epogen with HD. PRBC as needed. 4. Cirrhosis with h/o hepatic encephalopathy: Lactulose. Monitor. 5. DM type 2 uncontrolled: SSI. Monitor. 6. Thrombocytopenia, POA: 7. Hypertension: Monitor BP. Adjust meds as appropriate. Subjective: Patient was seen and examined at the bedside while on hemodialysis. Doing ok. General Appearance: General appearance: well-developed, appears stated age, not in distress HEENT: ATNC, pupils equal Neck: trachea midline Respiratory: ctab Heart: regular, S1S2, no murmur Abdomen: soft, bowel sounds heard, not tender Integumentary: no rash, warm and dry Neurologic: alert, conversing, moving extremities Ext: no edema, R BKA Hemodialysis access: R arm AVF Subjective Date of service: 03/02/21 Objective - Vital Signs Vital signs: Vital Signs - 12hr 03/01/21 03/02/21 03/02/21 22:16 04:52 05:15 Temperature 99.2 F Pulse Rate 78 80 Respiratory 18 Rate Blood Pressure 112/51 123/60 O2 Sat by Pulse 100 Oximetry 03/02/21 10:07 Temperature Pulse Rate Respiratory Rate Blood Pressure 120/60 O2 Sat by Pulse Oximetry - Lab 02/28/21 12:37 02/28/21 12:37 Most recent lab results Calcium 8.4 mg/dL (8.4-10.2) 02/28/21 12:37 Magnesium 2.10 mg/dL (1.7-2.3) 02/17/21 02:24 Medications & Allergies - Medications Allergies/Adverse Reactions: Allergies No Known Allergies Allergy (Verified 02/16/21 18:26) Home Medications: Home Medications Medication Instructions Recorded Confirmed Last Taken Type Calcium Acetate [Phoslo] 1,334 mg PO TIDWM #90 capsule 03/01/21 Unknown Rx Famotidine [Pepcid] 20 mg PO QAM #30 tablet 03/01/21 Unknown Rx Lactulose [Cephulac] 20 gm PO Q8HR 30 Days 03/01/21 Unknown Rx Lispro Insulin [HumaLOG] See Protocol SQ ACHS 30 Days 03/01/21 Unknown Rx allopurinoL [Zyloprim] 100 mg PO QDAY #30 tablet 03/01/21 Unknown Rx propranoloL [Inderal] 20 mg PO BID #60 tablet 03/01/21 Unknown Rx Active Medications: Generic Name Dose Route Start Last Admin Trade Name Freq PRN Reason Stop Dose Admin Acetaminophen 650 mg 02/18/21 22:38 02/23/21 17:36 Acetaminophen 325 Mg Tab PO 650 mg Q4H PRN Administration Pain MILD(1-3)/Fever >100.5/MOLINA Albuterol 2.5 mg 02/18/21 22:38 Albuterol 2.5 Mg/3 Ml Nebu IH Q3HRT PRN Shortness Of Breath Allopurinol 100 mg 02/20/21 10:00 03/02/21 10:08 Allopurinol 100 Mg Tab PO 100 mg QDAY LEYLA Administration Calcium Acetate 1,334 mg 02/20/21 08:30 03/02/21 08:11 Calcium Acetate 667 Mg Cap PO 1,334 mg TIDWM LEYLA Administration Dextrose 0 ml 02/18/21 23:00 02/25/21 16:56 Dextrose 50% In Water (25gm) 50 Ml Syringe IV 50 ml Q30MIN PRN Administration Hypoglycemia Protocol Diphenhydramine HCl 25 mg 02/23/21 09:10 03/01/21 10:30 Diphenhydramine 25 Mg Cap PO 25 mg BID PRN Administration Itching Famotidine 20 mg 02/19/21 10:00 03/02/21 10:07 Famotidine 20 Mg Tab PO 20 mg QAM LEYLA Administration Heparin Sodium (Porcine) 5,000 unit 02/19/21 06:00 03/02/21 05:38 Heparin 5,000 Unit/1 Ml Vial SUB-Q Not Given Q8HR LEYLA Hydralazine HCl 10 mg 02/18/21 22:56 Hydralazine 20 Mg/1 Ml Inj IV Q6H PRN htn Sodium Chloride 100 mls @ 999 mls/hr 02/19/21 09:06 Nacl 0.9% IV OLIVIA PRN Hypotension Insulin Human Lispro 0 unit 02/19/21 07:30 03/02/21 07:30 Insulin Lispro 100 Unit/Ml SUB-Q 6 unit ACHS LEYLA Administration Protocol Lactulose 20 gm 02/24/21 14:00 03/02/21 05:37 Lactulose 20 Gm/30 Ml Oral Liqd PO 20 gm Q8HR LEYLA Administration Ondansetron HCl 4 mg 02/18/21 22:38 02/28/21 12:32 Ondansetron 4 Mg/2 Ml Inj IV 4 mg Q8H PRN Administration Nausea And Vomiting Polyethylene Glycol 17 gm 02/24/21 12:08 02/24/21 12:47 Polyethylene Glycol 3350 17 Gm Powder PO 17 gm QDAY PRN Administration Constipation Propranolol HCl 20 mg 02/20/21 10:00 03/02/21 10:07 Propranolol 10 Mg Tab PO 20 mg BID LEYLA Administration Sodium Chloride 10 ml 02/19/21 10:00 03/02/21 10:08 Sodium Chloride 0.9% 10 Ml Flush Syringe IV 10 ml BID LEYLA Administration Sodium Chloride 10 ml 02/18/21 22:38 Sodium Chloride 0.9% 10 Ml Flush Syringe IV PRN PRN LINE FLUSH Tramadol HCl 50 mg 02/24/21 13:20 02/25/21 10:17 Tramadol 50 Mg Tab PO 50 mg Q6H PRN Administration Pain, Moderate (4-6) Zolpidem Tartrate 5 mg 02/24/21 09:54 02/28/21 22:29 Zolpidem 5 Mg Tab PO 5 mg QHS PRN Administration Sleep
--- NOTE | 2021-03-02 16:39 | Progress Note ---
Assessment and Plan 55 YO Male with ESRD on HD, Noncompliance with outpatient dialysis, Anemia, HBV, Chronic Liver Disease, Cirrhosis complicated by Esophageal Varices, HTN, Debility, DM presents to ED with confusion with diminished cognition. Patient family report the patient was "not acting like himself" and found to have worsening confusion over the past 2 days. In the ER the patient was found to have hepatic encephalopathy complicated by diminished cognition, end-stage renal disease in need of urgent dialysis, as well as uncontrolled diabetes, and a cidosis. Nephrology team consulted in ED and patient was then admitted for further evaluation and Mx. A/p -- Hepatic encephalopathy due to hepatic cirrhosis cont lactulose, Neuro check, seizure precaution, aspiration precaution, fall precautions, continue to monitor. -- End stage renal disease Nephrology team consulted, strict I's/O, monitor urine output every shift, dialysis as per renal team, avoid nephrotoxic agents. --Metabolic Acidosis Nephrology team consulted, dialysis as per renal team. --Hyponatremia Monitor BMP, monitor fluid balance. -- Hyperammonemia Continue lactulose --Diabetes mellitus with hyperglycemia Consistent carb diet, SSI -- hyperkalemia, Improvement with dialysis --Ascitis, s/p paracentesis today --Sacral wound, wound care -- Moderate Protein Calorie Malnutrition, nutrition consulted --DVT Px, SCD --DNR code status --Disposition: needs placement, CM waiting for placement Daily clinical course: 02/19: Resume dialysis will adjust insulin for better coverage. Very poor prognosis considering poor medical compliance. Agree with hospice recommendation. Will obtain wound care to continue to manage. Monitor anemia as patient was pretty anemic during the last hospitalization. Required transf usion. 02/20: Continues to undergo dialysis no change in mental status noted. Tolerating medications. Blood sugar mildly elevated adjusted insulin yesterday when awake for the patient received a dose today and if still elevated will adjust. Again case management is working on discharge plan for this patient as he is pending placement 02/21 patient complains of right hip pain. He said he fell few weeks ago and is concerned about another fracture. He had a fracture about 8 weeks ago and had surgery. Will obtain X ray right hip. Patient pending placement. 02/22 Patient seen in Dialysis Unit. He states hip pain improved. No other complaints. Right hip X ray done yesterday report read may be healing fracture or acute fracture. Will discuss with Orthopedic Surgeon Patient pending placement 02/23 Less hip pain. Today complains of generalized itching. Will start Benadryl po prn. Orthopedic consulted to evaluate right hip. Patient pending placement 02/24 Less hip pain. Generalized itching now resolved. Orthopedic consulted to evaluate right hip. He complains of sleeplessness. Will give Ambien prn Patient pending placement 02/25 Patient requested DNR status yesterday. I discussed with him and he signed forms. He also complains of worsening abdominal distension and requested tapping, Will order paracentesis. Right hip evaluated by Dr. Trivedi and conservative management recommended. 02/26: Plan for paracentesis today. Need to set up dialysis as outpatient. human resources operations manager working on discharge planning. 02/27: Patient did not sign the consent for paracentesis yesterday so paracentesis was done today and aspirated 6.2L ascitic fluid. Patient refusing medication per RN. Getting dialysis. Patient noted slightly altered today, will place NG tube remains altered and keep refusing oral meds, order for ammonia level and will cont lactulose. 02/28: Patient appears much more calm and cooperative today. He stated that he has been refusing procedure and medication as he believes he was not in the right state of his mind. Patient acknowledges the importance of being compliant and he promises that he will take the medications as he will be given. Discharge planning per case management as patient would need outpatient dialysis center set up and personal intermediate set up. 03/01/21: Patient has personal intermediate setting but according to correctional case records supervisor no available caregiver to accept the patient till Thursday. Continue supportive care. Discharge pending on placement. Subjective Date of service: 03/01/21 Interval history: Patient seen and examined. Medical records and medication list reviewed. No acute event overnight noted by the RN. Patient denies any chest pain or difficulty breathing. Patient is tolerating diet. Discussed plan of care at bedside with patient. Need placement on discharge Objective - Exam Narrative Exam: GENERAL: Not in acute distress, HEAD: Normocephalic, atraumatic. EYES: Pupils are equal. Extraocular motions intact. Icteric sclera EARS: Hearing grossly intact. MOUTH: Oropharynx is normal. NECK: No adenopathy, no JVD. CHEST: Chest with diminished breath sounds bilaterally. No wheezes, rales, or rhonchi. CARDIAC: Regular rate and rhythm. S1 and S2, without murmurs, gallops, or rubs. VASCULAR: No Edema. Peripheral pulses normal and equal in all extremities. ABDOMEN: Soft, non tender , abd distension from ascitis, No rebound or guarding, and no masses palpated. Bowel Sounds normal. MUSCULOSKELETAL: Right BKA , extremities without clubbing, cyanosis or edema. NEUROLOGIC EXAM: Alert and oriented x3, No focal sensory or strength deficits. Speech normal. Follows commands. PSYCHIATRIC: Mood dull. - Constitutional Vitals: Vital Signs - 12hr 03/02/21 03/02/21 03/02/21 04:52 05:15 10:07 Temperature 99.2 F Pulse Rate 80 Respiratory 18 Rate Blood Pressure 123/60 120/60 Blood Pressure [Left] O2 Sat by Pulse 100 Oximetry 03/02/21 11:57 Temperature 98.2 F Pulse Rate 80 Respiratory 20 Rate Blood Pressure Blood Pressure 112/50 [Left] O2 Sat by Pulse 96 Oximetry - Labs CBC & Chem 7: 02/28/21 12:37 02/28/21 12:37 Labs: Abnormal lab results 03/01/21 03/01/21 03/01/21 Range/Units 13:09 16:53 21:25 POC Glucose 229 H 312 H 238 H (70-105) mg/dL 03/02/21 03/02/21 Range/Units 07:43 12:38 POC Glucose 351 H 209 H (70-105) mg/dL
--- NOTE | 2021-03-02 16:40 | Progress Note ---
Assessment and Plan 55 YO Male with ESRD on HD, Noncompliance with outpatient dialysis, Anemia, HBV, Chronic Liver Disease, Cirrhosis complicated by Esophageal Varices, HTN, Debility, DM presents to ED with confusion with diminished cognition. Patient family report the patient was "not acting like himself" and found to have worsening confusion over the past 2 days. In the ER the patient was found to have hepatic encephalopathy complicated by diminished cognition, end-stage renal disease in need of urgent dialysis, as well as uncontrolled diabetes, and a cidosis. Nephrology team consulted in ED and patient was then admitted for further evaluation and Mx. A/p -- Hepatic encephalopathy due to hepatic cirrhosis cont lactulose, Neuro check, seizure precaution, aspiration precaution, fall precautions, continue to monitor. -- End stage renal disease Nephrology team consulted, strict I's/O, monitor urine output every shift, dialysis as per renal team, avoid nephrotoxic agents. --Metabolic Acidosis Nephrology team consulted, dialysis as per renal team. --Hyponatremia Monitor BMP, monitor fluid balance. -- Hyperammonemia Continue lactulose --Diabetes mellitus with hyperglycemia Consistent carb diet, SSI -- hyperkalemia, Improvement with dialysis --Ascitis, s/p paracentesis today --Sacral wound, wound care -- Moderate Protein Calorie Malnutrition, nutrition consulted --DVT Px, SCD --DNR code status --Disposition: needs placement, CM waiting for placement Daily clinical course: 02/19: Resume dialysis will adjust insulin for better coverage. Very poor prognosis considering poor medical compliance. Agree with hospice recommendation. Will obtain wound care to continue to manage. Monitor anemia as patient was pretty anemic during the last hospitalization. Required transf usion. 02/20: Continues to undergo dialysis no change in mental status noted. Tolerating medications. Blood sugar mildly elevated adjusted insulin yesterday when awake for the patient received a dose today and if still elevated will adjust. Again case management is working on discharge plan for this patient as he is pending placement 02/21 patient complains of right hip pain. He said he fell few weeks ago and is concerned about another fracture. He had a fracture about 8 weeks ago and had surgery. Will obtain X ray right hip. Patient pending placement. 02/22 Patient seen in Dialysis Unit. He states hip pain improved. No other complaints. Right hip X ray done yesterday report read may be healing fracture or acute fracture. Will discuss with Orthopedic Surgeon Patient pending placement 02/23 Less hip pain. Today complains of generalized itching. Will start Benadryl po prn. Orthopedic consulted to evaluate right hip. Patient pending placement 02/24 Less hip pain. Generalized itching now resolved. Orthopedic consulted to evaluate right hip. He complains of sleeplessness. Will give Ambien prn Patient pending placement 02/25 Patient requested DNR status yesterday. I discussed with him and he signed forms. He also complains of worsening abdominal distension and requested tapping, Will order paracentesis. Right hip evaluated by Dr. Trivedi and conservative management recommended. 02/26: Plan for paracentesis today. Need to set up dialysis as outpatient. rehab department manager working on discharge planning. 02/27: Patient did not sign the consent for paracentesis yesterday so paracentesis was done today and aspirated 6.2L ascitic fluid. Patient refusing medication per RN. Getting dialysis. Patient noted slightly altered today, will place NG tube remains altered and keep refusing oral meds, order for ammonia level and will cont lactulose. 02/28: Patient appears much more calm and cooperative today. He stated that he has been refusing procedure and medication as he believes he was not in the right state of his mind. Patient acknowledges the importance of being compliant and he promises that he will take the medications as he will be given. Discharge planning per case management as patient would need outpatient dialysis center set up and personal [facility] set up. 03/01/21: Patient has personal [facility] setting but according to rn case mgr no available caregiver to accept the patient till Thursday. Continue supportive care. Discharge pending on placement. 03/02/21: Discharge pending on placement, continue Subjective Date of service: 03/02/21 Objective - Exam Narrative Exam: GENERAL: Not in acute distress, HEAD: Normocephalic, atraumatic. EYES: Pupils are equal. Extraocular motions intact. Icteric sclera EARS: Hearing grossly intact. MOUTH: Oropharynx is normal. NECK: No adenopathy, no JVD. CHEST: Chest with diminished breath sounds bilaterally. No wheezes, rales, or rhonchi. CARDIAC: Regular rate and rhythm. S1 and S2, without murmurs, gallops, or rubs. VASCULAR: No Edema. Peripheral pulses normal and equal in all extremities. ABDOMEN: Soft, non tender , abd distension from ascitis, No rebound or guarding, and no masses palpated. Bowel Sounds normal. MUSCULOSKELETAL: Right BKA , extremities without clubbing, cyanosis or edema. NEUROLOGIC EXAM: Alert and oriented x3, No focal sensory or strength deficits. Speech normal. Follows commands. PSYCHIATRIC: Mood dull. - Constitutional Vitals: Vital Signs - 12hr 03/02/21 03/02/21 03/02/21 04:52 05:15 10:07 Temperature 99.2 F Pulse Rate 80 Respiratory 18 Rate Blood Pressure 123/60 120/60 Blood Pressure [Left] O2 Sat by Pulse 100 Oximetry 03/02/21 11:57 Temperature 98.2 F Pulse Rate 80 Respiratory 20 Rate Blood Pressure Blood Pressure 112/50 [Left] O2 Sat by Pulse 96 Oximetry - Labs CBC & Chem 7: 02/28/21 12:37 02/28/21 12:37 Labs: Abnormal lab results 03/01/21 03/01/21 03/01/21 Range/Units 13:09 16:53 21:25 POC Glucose 229 H 312 H 238 H (70-105) mg/dL 03/02/21 03/02/21 Range/Units 07:43 12:38 POC Glucose 351 H 209 H (70-105) mg/dL
[2021-03-03] MEDS: HEPARIN 5,000 UNIT/1 ML VIAL SUB-Q SCH ×3 (06:15→22:11)
[2021-03-03] MEDS: LACTULOSE 20 GM/30 ML ORAL LIQD PO SCH ×4 (06:16→22:08)
[2021-03-03] MEDS: INSULIN LISPRO 100 UNIT/ML SUB-Q SCH ×4 (07:30→22:09)
[2021-03-03] MEDS: CALCIUM ACETATE 667 MG CAP PO SCH ×3 (08:03→16:53)
[2021-03-03] MEDS: PROPRANOLOL 10 MG TAB PO SCH ×3 (08:53→22:08)
[2021-03-03] MEDS: allopurinoL 100 MG TAB PO SCH ×2 (08:53→10:19)
[2021-03-03] MEDS: FAMOTIDINE 20 MG TAB PO SCH ×2 (08:53→10:19)
--- NOTE | 2021-03-03 12:21 | Progress Note ---
Assessment and Plan 1. ESRD: Patient is on maintenance hemodialysis three times a week, MWF schedule. Meds dosage based on GFR. Missed HD 02/18. Hemodialysis: 02/19, 02/20, 02/22, 02/25, 02/27, 03/01. 2. FEN: Monitor lytes and volume status. 3. Anemia, POA: 2/2 ESRD and Liver disease. Epogen with HD. PRBC as needed. 4. Cirrhosis with h/o hepatic encephalopathy: Lactulose. Monitor. 5. DM type 2 uncontrolled: SSI. Monitor. 6. Thrombocytopenia, POA: 7. Hypertension: Monitor BP. Adjust meds as appropriate. Subjective: Patient was seen and examined at the bedside. General Appearance: General appearance: well-developed, appears stated age, not in distress HEENT: ATNC, pupils equal Neck: trachea midline Respiratory: ctab Heart: regular, S1S2, no murmur Abdomen: soft, bowel sounds heard, not tender Integumentary: no rash, warm and dry Neurologic: lethargic Ext: no edema, R BKA Hemodialysis access: R arm AVF Subjective Date of service: 03/03/21 Objective - Vital Signs Vital signs: Vital Signs - 12hr 03/03/21 03/03/21 04:25 08:53 Temperature 98.2 F Pulse Rate 69 70 Respiratory 18 Rate Blood Pressure 128/60 120/62 O2 Sat by Pulse 100 Oximetry - Lab 03/04/21 23:13 03/04/21 23:13 Most recent lab results Calcium 8.4 mg/dL (8.4-10.2) 02/28/21 12:37 Magnesium 2.10 mg/dL (1.7-2.3) 02/17/21 02:24 Medications & Allergies - Medications Allergies/Adverse Reactions: Allergies No Known Allergies Allergy (Verified 02/16/21 18:26) Home Medications: Home Medications Medication Instructions Recorded Confirmed Last Taken Type Calcium Acetate [Phoslo] 1,334 mg PO TIDWM #90 capsule 03/01/21 Unknown Rx Famotidine [Pepcid] 20 mg PO QAM #30 tablet 03/01/21 Unknown Rx Lactulose [Cephulac] 20 gm PO Q8HR 30 Days 03/01/21 Unknown Rx Lispro Insulin [HumaLOG] See Protocol SQ ACHS 30 Days 03/01/21 Unknown Rx allopurinoL [Zyloprim] 100 mg PO QDAY #30 tablet 03/01/21 Unknown Rx propranoloL [Inderal] 20 mg PO BID #60 tablet 03/01/21 Unknown Rx Active Medications: Generic Name Dose Route Start Last Admin Trade Name Freq PRN Reason Stop Dose Admin Acetaminophen 650 mg 02/18/21 22:38 02/23/21 17:36 Acetaminophen 325 Mg Tab PO 650 mg Q4H PRN Administration Pain MILD(1-3)/Fever >100.5/MOLINA Albuterol 2.5 mg 02/18/21 22:38 Albuterol 2.5 Mg/3 Ml Nebu IH Q3HRT PRN Shortness Of Breath Allopurinol 100 mg 02/20/21 10:00 03/03/21 10:19 Allopurinol 100 Mg Tab PO Not Given QDAY LEYLA Calcium Acetate 1,334 mg 02/20/21 08:30 03/03/21 12:03 Calcium Acetate 667 Mg Cap PO Not Given TIDWM LEYLA Dextrose 0 ml 02/18/21 23:00 02/25/21 16:56 Dextrose 50% In Water (25gm) 50 Ml Syringe IV 50 ml Q30MIN PRN Administration Hypoglycemia Protocol Diphenhydramine HCl 25 mg 02/23/21 09:10 03/01/21 10:30 Diphenhydramine 25 Mg Cap PO 25 mg BID PRN Administration Itching Famotidine 20 mg 02/19/21 10:00 03/03/21 10:19 Famotidine 20 Mg Tab PO Not Given QAM LEYLA Heparin Sodium (Porcine) 5,000 unit 02/19/21 06:00 03/03/21 06:15 Heparin 5,000 Unit/1 Ml Vial SUB-Q Not Given Q8HR LEYLA Hydralazine HCl 10 mg 02/18/21 22:56 Hydralazine 20 Mg/1 Ml Inj IV Q6H PRN htn Sodium Chloride 100 mls @ 999 mls/hr 02/19/21 09:06 Nacl 0.9% IV OLIVIA PRN Hypotension Insulin Human Lispro 0 unit 02/19/21 07:30 03/03/21 11:30 Insulin Lispro 100 Unit/Ml SUB-Q 4 unit ACHS LEYLA Administration Protocol Lactulose 20 gm 02/24/21 14:00 03/03/21 06:16 Lactulose 20 Gm/30 Ml Oral Liqd PO 20 gm Q8HR LEYLA Administration Ondansetron HCl 4 mg 02/18/21 22:38 02/28/21 12:32 Ondansetron 4 Mg/2 Ml Inj IV 4 mg Q8H PRN Administration Nausea And Vomiting Polyethylene Glycol 17 gm 02/24/21 12:08 02/24/21 12:47 Polyethylene Glycol 3350 17 Gm Powder PO 17 gm QDAY PRN Administration Constipation Propranolol HCl 20 mg 02/20/21 10:00 03/03/21 10:19 Propranolol 10 Mg Tab PO Not Given BID LEYLA Sodium Chloride 10 ml 02/19/21 10:00 03/03/21 10:19 Sodium Chloride 0.9% 10 Ml Flush Syringe IV Not Given BID LEYLA Sodium Chloride 10 ml 02/18/21 22:38 Sodium Chloride 0.9% 10 Ml Flush Syringe IV PRN PRN LINE FLUSH Tramadol HCl 50 mg 02/24/21 13:20 02/25/21 10:17 Tramadol 50 Mg Tab PO 50 mg Q6H PRN Administration Pain, Moderate (4-6) Zolpidem Tartrate 5 mg 02/24/21 09:54 02/28/21 22:29 Zolpidem 5 Mg Tab PO 5 mg QHS PRN Administration Sleep
--- NOTE | 2021-03-03 14:19 | Progress Note ---
Assessment and Plan 55 YO Male with ESRD on HD, Noncompliance with outpatient dialysis, Anemia, HBV, Chronic Liver Disease, Cirrhosis complicated by Esophageal Varices, HTN, Debility, DM presents to ED with confusion with diminished cognition. Patient family report the patient was "not acting like himself" and found to have worsening confusion over the past 2 days. In the ER the patient was found to have hepatic encephalopathy complicated by diminished cognition, end-stage renal disease in need of urgent dialysis, as well as uncontrolled diabetes, and a cidosis. Nephrology team consulted in ED and patient was then admitted for further evaluation and Mx. A/p -- Hepatic encephalopathy due to hepatic cirrhosis cont lactulose, Neuro check, seizure precaution, aspiration precaution, fall precautions, continue to monitor. -- End stage renal disease Nephrology team consulted, strict I's/O, monitor urine output every shift, dialysis as per renal team, avoid nephrotoxic agents. --Metabolic Acidosis Nephrology team consulted, dialysis as per renal team. --Hyponatremia Monitor BMP, monitor fluid balance. -- Hyperammonemia Continue lactulose --Diabetes mellitus with hyperglycemia Consistent carb diet, SSI -- hyperkalemia, Improvement with dialysis --Ascitis, s/p paracentesis today --Sacral wound, wound care -- Moderate Protein Calorie Malnutrition, nutrition consulted --DVT Px, SCD --DNR code status --Disposition: needs placement, CM waiting for placement Daily clinical course: 02/19: Resume dialysis will adjust insulin for better coverage. Very poor prognosis considering poor medical compliance. Agree with hospice recommendation. Will obtain wound care to continue to manage. Monitor anemia as patient was pretty anemic during the last hospitalization. Required transf usion. 02/20: Continues to undergo dialysis no change in mental status noted. Tolerating medications. Blood sugar mildly elevated adjusted insulin yesterday when awake for the patient received a dose today and if still elevated will adjust. Again case management is working on discharge plan for this patient as he is pending placement 02/21 patient complains of right hip pain. He said he fell few weeks ago and is concerned about another fracture. He had a fracture about 8 weeks ago and had surgery. Will obtain X ray right hip. Patient pending placement. 02/22 Patient seen in Dialysis Unit. He states hip pain improved. No other complaints. Right hip X ray done yesterday report read may be healing fracture or acute fracture. Will discuss with Orthopedic Surgeon Patient pending placement 02/23 Less hip pain. Today complains of generalized itching. Will start Benadryl po prn. Orthopedic consulted to evaluate right hip. Patient pending placement 02/24 Less hip pain. Generalized itching now resolved. Orthopedic consulted to evaluate right hip. He complains of sleeplessness. Will give Ambien prn Patient pending placement 02/25 Patient requested DNR status yesterday. I discussed with him and he signed forms. He also complains of worsening abdominal distension and requested tapping, Will order paracentesis. Right hip evaluated by Dr. Trivedi and conservative management recommended. 02/26: Plan for paracentesis today. Need to set up dialysis as outpatient. surgical services manager working on discharge planning. 02/27: Patient did not sign the consent for paracentesis yesterday so paracentesis was done today and aspirated 6.2L ascitic fluid. Patient refusing medication per RN. Getting dialysis. Patient noted slightly altered today, will place NG tube remains altered and keep refusing oral meds, order for ammonia level and will cont lactulose. 02/28: Patient appears much more calm and cooperative today. He stated that he has been refusing procedure and medication as he believes he was not in the right state of his mind. Patient acknowledges the importance of being compliant and he promises that he will take the medications as he will be given. Discharge planning per case management as patient would need outpatient dialysis center set up and personal intermediate set up. 03/01/21: Patient has personal intermediate setting but according to case management director no available caregiver to accept the patient till Thursday. Continue supportive care. Discharge pending on placement. 03/02/21 -03/03/21: Discharge pending on placement, continue to monitor clinically. Continue current management and plan and supportive care. Subjective Date of service: 03/03/21 Interval history: Patient seen and examined. Medical records and medication list reviewed. No acute event overnight noted by the RN. Patient denies any chest pain or difficulty breathing. Patient is tolerating diet. Discussed plan of care at bedside with patient. Need placement on discharge Objective - Exam Narrative Exam: GENERAL: Not in acute distress, HEAD: Normocephalic, atraumatic. EYES: Pupils are equal. Extraocular motions intact. Icteric sclera EARS: Hearing grossly intact. MOUTH: Oropharynx is normal. NECK: No adenopathy, no JVD. CHEST: Chest with diminished breath sounds bilaterally. No wheezes, rales, or rhonchi. CARDIAC: Regular rate and rhythm. S1 and S2, without murmurs, gallops, or rubs. VASCULAR: No Edema. Peripheral pulses normal and equal in all extremities. ABDOMEN: Soft, non tender , abd distension from ascitis, No rebound or guarding, and no masses palpated. Bowel Sounds normal. MUSCULOSKELETAL: Right BKA , extremities without clubbing, cyanosis or edema. NEUROLOGIC EXAM: Alert and oriented x3, No focal sensory or strength deficits. Speech normal. Follows commands. PSYCHIATRIC: Mood dull. - Constitutional Vitals: Vital Signs - 12hr 03/03/21 03/03/21 03/03/21 04:25 08:53 12:57 Temperature 98.2 F 98.6 F Pulse Rate 69 70 73 Respiratory 18 24 Rate Blood Pressure 128/60 120/62 136/59 O2 Sat by Pulse 100 100 Oximetry - Labs CBC & Chem 7: 02/28/21 12:37 02/28/21 12:37 Labs: Abnormal lab results 03/02/21 03/02/21 03/02/21 Range/Units 12:38 16:38 21:08 POC Glucose 209 H 195 H 369 H (70-105) mg/dL 03/03/21 03/03/21 03/03/21 Range/Units 02:28 08:09 11:10 POC Glucose 268 H 202 H 263 H (70-105) mg/dL
[2021-03-04] MEDS: HEPARIN 5,000 UNIT/1 ML VIAL SUB-Q SCH ×3 (06:12→21:50)
[2021-03-04] MEDS: LACTULOSE 20 GM/30 ML ORAL LIQD PO SCH ×3 (06:17→21:50)
[2021-03-04] MEDS: INSULIN LISPRO 100 UNIT/ML SUB-Q SCH ×4 (07:30→21:53)
[2021-03-04] MEDS: CALCIUM ACETATE 667 MG CAP PO SCH ×3 (08:38→17:13)
[2021-03-04] MEDS: PROPRANOLOL 10 MG TAB PO SCH ×2 (10:00→21:54)
[2021-03-04] MEDS: EPOETIN ALFA-EPBX 20,000 UNIT/1 ML VIAL SUB-Q PRN (12:54)
--- NOTE | 2021-03-04 15:17 | Progress Note ---
Assessment and Plan 1. ESRD: Patient is on maintenance hemodialysis three times a week, MWF schedule. Meds dosage based on GFR. Missed HD 02/18. Hemodialysis: 02/19, 02/20, 02/22, 02/25, 02/27, 03/01, 03/04. 2. FEN: Monitor lytes and volume status. 3. Anemia, POA: 2/2 ESRD and Liver disease. Epogen with HD. PRBC as needed. 4. Cirrhosis with h/o hepatic encephalopathy: Lactulose. Monitor. 5. DM type 2 uncontrolled: SSI. Monitor. 6. Thrombocytopenia, POA: 7. Hypertension: Monitor BP. Adjust meds as appropriate. Subjective: Patient was seen and examined at the bedside. General Appearance: General appearance: well-developed, appears stated age, not in distress HEENT: ATNC, pupils equal Neck: trachea midline Respiratory: ctab Heart: regular, S1S2, no murmur Abdomen: soft, bowel sounds heard, not tender Integumentary: no rash, warm and dry Neurologic: lethargic Ext: no edema, R BKA Hemodialysis access: R arm AVF Subjective Date of service: 03/04/21 Objective - Vital Signs Vital signs: Vital Signs - 12hr 03/04/21 03/04/21 03/04/21 05:11 10:30 10:36 Temperature 98.5 F 98.3 F Pulse Rate 69 71 70 Respiratory 18 18 Rate Blood Pressure 107/46 155/73 146/76 O2 Sat by Pulse 99 Oximetry 03/04/21 03/04/21 03/04/21 10:45 11:00 11:15 Temperature Pulse Rate 73 75 77 Respiratory Rate Blood Pressure 152/72 143/69 127/63 O2 Sat by Pulse Oximetry 03/04/21 03/04/21 03/04/21 11:30 11:45 12:00 Temperature Pulse Rate 76 74 73 Respiratory Rate Blood Pressure 106/55 103/51 101/49 O2 Sat by Pulse Oximetry 03/04/21 03/04/21 03/04/21 12:15 12:30 12:45 Temperature Pulse Rate 76 74 74 Respiratory Rate Blood Pressure 103/50 97/46 101/47 O2 Sat by Pulse Oximetry 03/04/21 03/04/21 03/04/21 13:00 13:15 13:30 Temperature Pulse Rate 77 78 79 Respiratory Rate Blood Pressure 92/53 94/53 91/52 O2 Sat by Pulse Oximetry 03/04/21 03/04/21 13:36 13:45 Temperature 98.3 F Pulse Rate 80 75 Respiratory 18 Rate Blood Pressure 98/59 103/52 O2 Sat by Pulse Oximetry - Lab 03/04/21 23:13 03/04/21 23:13 Most recent lab results Calcium 8.4 mg/dL (8.4-10.2) 02/28/21 12:37 Magnesium 2.10 mg/dL (1.7-2.3) 02/17/21 02:24 Medications & Allergies - Medications Allergies/Adverse Reactions: Allergies No Known Allergies Allergy (Verified 02/16/21 18:26) Home Medications: Home Medications Medication Instructions Recorded Confirmed Last Taken Type Calcium Acetate [Phoslo] 1,334 mg PO TIDWM #90 capsule 03/01/21 Unknown Rx Famotidine [Pepcid] 20 mg PO QAM #30 tablet 03/01/21 Unknown Rx Lactulose [Cephulac] 20 gm PO Q8HR 30 Days 03/01/21 Unknown Rx Lispro Insulin [HumaLOG] See Protocol SQ ACHS 30 Days 03/01/21 Unknown Rx allopurinoL [Zyloprim] 100 mg PO QDAY #30 tablet 03/01/21 Unknown Rx propranoloL [Inderal] 20 mg PO BID #60 tablet 03/01/21 Unknown Rx Active Medications: Generic Name Dose Route Start Last Admin Trade Name Freq PRN Reason Stop Dose Admin Acetaminophen 650 mg 02/18/21 22:38 02/23/21 17:36 Acetaminophen 325 Mg Tab PO 650 mg Q4H PRN Administration Pain MILD(1-3)/Fever >100.5/MOLINA Albuterol 2.5 mg 02/18/21 22:38 Albuterol 2.5 Mg/3 Ml Nebu IH Q3HRT PRN Shortness Of Breath Allopurinol 100 mg 02/20/21 10:00 03/03/21 10:19 Allopurinol 100 Mg Tab PO Not Given QDAY LEYLA Calcium Acetate 1,334 mg 02/20/21 08:30 03/04/21 12:41 Calcium Acetate 667 Mg Cap PO Not Given TIDWM LEYLA Dextrose 0 ml 02/18/21 23:00 02/25/21 16:56 Dextrose 50% In Water (25gm) 50 Ml Syringe IV 50 ml Q30MIN PRN Administration Hypoglycemia Protocol Diphenhydramine HCl 25 mg 02/23/21 09:10 03/01/21 10:30 Diphenhydramine 25 Mg Cap PO 25 mg BID PRN Administration Itching Famotidine 20 mg 02/19/21 10:00 03/03/21 10:19 Famotidine 20 Mg Tab PO Not Given QAM [facility] Heparin Sodium (Porcine) 5,000 unit 02/19/21 06:00 03/04/21 06:12 Heparin 5,000 Unit/1 Ml Vial SUB-Q Not Given Q8HR LEYLA Hydralazine HCl 10 mg 02/18/21 22:56 Hydralazine 20 Mg/1 Ml Inj IV Q6H PRN htn Sodium Chloride 100 mls @ 999 mls/hr 02/19/21 09:06 Nacl 0.9% IV OLIVIA PRN Hypotension Insulin Human Lispro 0 unit 02/19/21 07:30 03/04/21 11:30 Insulin Lispro 100 Unit/Ml SUB-Q Not Given ACHS [facility] Protocol Lactulose 20 gm 02/24/21 14:00 03/04/21 06:17 Lactulose 20 Gm/30 Ml Oral Liqd PO Not Given Q8HR [facility]1983 Ondansetron HCl 4 mg 02/18/21 22:38 02/28/21 12:32 Ondansetron 4 Mg/2 Ml Inj IV 4 mg Q8H PRN Administration Nausea And Vomiting Polyethylene Glycol 17 gm 02/24/21 12:08 02/24/21 12:47 Polyethylene Glycol 3350 17 Gm Powder PO 17 gm QDAY PRN Administration Constipation Propranolol HCl 20 mg 02/20/21 10:00 03/04/21 10:00 Propranolol 10 Mg Tab PO Not Given BID LEYLA Sodium Chloride 10 ml 02/19/21 10:00 03/03/21 22:00 Sodium Chloride 0.9% 10 Ml Flush Syringe IV Not Given BID LEYLA Sodium Chloride 10 ml 02/18/21 22:38 Sodium Chloride 0.9% 10 Ml Flush Syringe IV PRN PRN LINE FLUSH Tramadol HCl 50 mg 02/24/21 13:20 02/25/21 10:17 Tramadol 50 Mg Tab PO 50 mg Q6H PRN Administration Pain, Moderate (4-6) Zolpidem Tartrate 5 mg 02/24/21 09:54 02/28/21 22:29 Zolpidem 5 Mg Tab PO 5 mg QHS PRN Administration Sleep
--- NOTE | 2021-03-04 16:07 | Progress Note ---
Assessment and Plan 55 YO Male with ESRD on HD, Noncompliance with outpatient dialysis, Anemia, HBV, Chronic Liver Disease, Cirrhosis complicated by Esophageal Varices, HTN, Debility, DM presents to ED with confusion with diminished cognition. Patient family report the patient was "not acting like himself" and found to have worsening confusion over the past 2 days. In the ER the patient was found to have hepatic encephalopathy complicated by diminished cognition, end-stage renal disease in need of urgent dialysis, as well as uncontrolled diabetes, and a cidosis. Nephrology team consulted in ED and patient was then admitted for further evaluation and Mx. A/p -- Hepatic encephalopathy due to hepatic cirrhosis cont lactulose, Neuro check, seizure precaution, aspiration precaution, fall precautions, continue to monitor. -- End stage renal disease Nephrology team consulted, strict I's/O, monitor urine output every shift, dialysis as per renal team, avoid nephrotoxic agents. --Metabolic Acidosis Nephrology team consulted, dialysis as per renal team. --Hyponatremia Monitor BMP, monitor fluid balance. -- Hyperammonemia Continue lactulose --Diabetes mellitus with hyperglycemia Consistent carb diet, SSI -- hyperkalemia, Improvement with dialysis --Ascitis, s/p paracentesis drained 6.2l of ascitic fluid --Sacral wound, cont wound care -- Moderate Protein Calorie Malnutrition, nutrition consulted --Noncompliance, counseled for medication compliance --DVT Px, SCD --DNR code status --Disposition: needs placement, CM waiting for placement Daily clinical course: 02/19: Resume dialysis will adjust insulin for better coverage. Very poor prognosis considering poor medical compliance. Agree with hospice recommendation. Will obtain wound care to continue to manage. Monitor anemia as patient was pretty anemic during the last hospitalization. Required transfusion. 02/20: Continues to undergo dialysis no change in mental status noted. Tolerating medications. Blood sugar mildly elevated adjusted insulin yesterday when awake for the patient received a dose today and if still elevated will adjust. Again case management is working on discharge plan for this patient as he is pending placement 02/21 patient complains of right hip pain. He said he fell few weeks ago and is co ncerned about another fracture. He had a fracture about 8 weeks ago and had surgery. Will obtain X ray right hip. Patient pending placement. 02/22 Patient seen in Dialysis Unit. He states hip pain improved. No other complaints. Right hip X ray done yesterday report read may be healing fracture or acute fracture. Will discuss with Orthopedic Surgeon Patient pending placement 02/23 Less hip pain. Today complains of generalized itching. Will start Benadryl po prn. Orthopedic consulted to evaluate right hip. Patient pending placement 02/24 Less hip pain. Generalized itching now resolved. Orthopedic consulted to evaluate right hip. He complains of sleeplessness. Will give Ambien prn Patient pending placement 02/25 Patient requested DNR status yesterday. I discussed with him and he signed forms. He also complains of worsening abdominal distension and requested tapping, Will order paracentesis. Right hip evaluated by Dr. Trivedi and conservative management recommended. 02/26: Plan for paracentesis today. Need to set up dialysis as outpatient. manager case working on discharge planning. 02/27: Patient did not sign the consent for paracentesis yesterday so paracentesis was done today and aspirated 6.2L ascitic fluid. Patient refusing medication per RN. Getting dialysis. Patient noted slightly altered today, will place NG tube remains altered and keep refusing oral meds, order for ammonia level and will cont lactulose. 02/28: Patient appears much more calm and cooperative today. He stated that he has been refusing procedure and medication as he believes he was not in the right state of his mind. Patient acknowledges the importance of being compliant and he promises that he will take the medications as he will be given. Discharge planning per case management as patient would need outpatient dialysis center set up and personal longterm set up. 03/01/21: Patient has assisted setting but according to top case assembler no available RN to accept the patient till Thursday. Continue supportive care. Discharge pending on placement. 03/02/21 -03/04/21: Discharge pending on placement, continue to monitor clinically. Continue current management and plan and supportive care. Patient need SNF placement. Subjective Date of service: 03/04/21 Interval history: Patient seen and examined. Medical records and medication list reviewed. No acute event overnight noted by the RN. Patient denies any chest pain or difficulty breathing. Patient is tolerating diet. Discussed plan of care at bedside with patient. Need placement on discharge Objective - Exam Narrative Exam: GENERAL: Not in acute distress, HEAD: Normocephalic, atraumatic. EYES: Pupils are equal. Extraocular motions intact. Icteric sclera EARS: Hearing grossly intact. MOUTH: Oropharynx is normal. NECK: No adenopathy, no JVD. CHEST: Chest with diminished breath sounds bilaterally. No wheezes, rales, or rhonchi. CARDIAC: Regular rate and rhythm. S1 and S2, without murmurs, gallops, or rubs. VASCULAR: No Edema. Peripheral pulses normal and equal in all extremities. ABDOMEN: Soft, non tender , abd distension from ascitis, No rebound or guarding, and no masses palpated. Bowel Sounds normal. MUSCULOSKELETAL: Right BKA , extremities without clubbing, cyanosis or edema. NEUROLOGIC EXAM: Alert and oriented x3, No focal sensory or strength deficits. Speech normal. Follows commands. PSYCHIATRIC: Mood dull. - Constitutional Vitals: Vital Signs - 12hr 03/04/21 03/04/21 03/04/21 05:11 10:30 10:36 Temperature 98.5 F 98.3 F Pulse Rate 69 71 70 Respiratory 18 18 Rate Blood Pressure 107/46 155/73 146/76 O2 Sat by Pulse 99 Oximetry 03/04/21 03/04/21 03/04/21 10:45 11:00 11:15 Temperature Pulse Rate 73 75 77 Respiratory Rate Blood Pressure 152/72 143/69 127/63 O2 Sat by Pulse Oximetry 03/04/21 03/04/21 03/04/21 11:30 11:45 12:00 Temperature Pulse Rate 76 74 73 Respiratory Rate Blood Pressure 106/55 103/51 101/49 O2 Sat by Pulse Oximetry 03/04/21 03/04/21 03/04/21 12:15 12:30 12:45 Temperature Pulse Rate 76 74 74 Respiratory Rate Blood Pressure 103/50 97/46 101/47 O2 Sat by Pulse Oximetry 03/04/21 03/04/21 03/04/21 13:00 13:15 13:30 Temperature Pulse Rate 77 78 79 Respiratory Rate Blood Pressure 92/53 94/53 91/52 O2 Sat by Pulse Oximetry 03/04/21 03/04/21 13:36 13:45 Temperature 98.3 F Pulse Rate 80 75 Respiratory 18 Rate Blood Pressure 98/59 103/52 O2 Sat by Pulse Oximetry - Labs CBC & Chem 7: 02/28/21 12:37 02/28/21 12:37 Labs: Abnormal lab results 03/03/21 03/03/21 03/04/21 Range/Units 16:20 21:31 06:57 POC Glucose 193 H 264 H 220 H (70-105) mg/dL 03/04/21 Range/Units 07:34 POC Glucose 178 H (70-105) mg/dL
[2021-03-04] MEDS: FAMOTIDINE 20 MG TAB PO SCH (16:16)
[2021-03-04] MEDS: allopurinoL 100 MG TAB PO SCH (16:16)
[2021-03-04 23:53] LABS: Calcium 8.6 mg/dL (8.4-10.2)
[2021-03-05 00:08] LABS: Hematocrit 23.8 % (35.5-45.6); Hemoglobin 8.2 gm/dl (11.8-15.2); Mean Corpuscular HGB Conc 34 % (32-34); Mean Corpuscular Volume 94 fl (84-94); Platelet Count 139 K/mm3 (140-440); Red Blood Count 2.54 M/mm3 (3.65-5.03); Red Cell Distribution Width 16.3 % (13.2-15.2)
[2021-03-05] MEDS: HEPARIN 5,000 UNIT/1 ML VIAL SUB-Q SCH ×3 (05:27→22:05)
[2021-03-05] MEDS: LACTULOSE 20 GM/30 ML ORAL LIQD PO SCH ×3 (05:29→22:03)
[2021-03-05] MEDS: INSULIN LISPRO 100 UNIT/ML SUB-Q SCH ×4 (07:30→22:04)
--- NOTE | 2021-03-05 07:33 | Progress Note ---
Assessment and Plan 1. ESRD: Patient is on maintenance hemodialysis three times a week, MWF schedule. Meds dosage based on GFR. Missed HD 02/18. Hemodialysis: 02/19, 02/20, 02/22, 02/25, 02/27, 03/01, 03/04. 2. FEN: Hyperkalemia, meds ordered. Monitor lytes and volume status. 3. Anemia, POA: 2/2 ESRD and Liver disease. Epogen with HD. PRBC as needed. 4. Cirrhosis with h/o hepatic encephalopathy: Lactulose. Monitor. 5. DM type 2 uncontrolled: SSI. Monitor. 6. Thrombocytopenia, POA: 7. Hypertension: Monitor BP. Adjust meds as appropriate. Subjective: Patient was seen and examined at the bedside. Patient refusing meds. General Appearance: General appearance: well-developed, appears stated age, not in distress HEENT: ATNC, pupils equal Neck: trachea midline Respiratory: ctab Heart: regular, S1S2, no murmur Abdomen: soft, bowel sounds heard, not tender Integumentary: no rash, warm and dry Neurologic: lethargic, non-verbal Ext: no edema, R BKA Hemodialysis access: R arm AVF Subjective Date of service: 03/05/21 Objective - Vital Signs Vital signs: Vital Signs - 12hr 03/04/21 03/05/21 21:54 05:33 Temperature 99.4 F 99.7 F H Pulse Rate 95 H 102 H Respiratory 20 20 Rate Blood Pressure 143/63 148/71 O2 Sat by Pulse 99 97 Oximetry - Lab 03/04/21 23:13 03/05/21 08:46 Most recent lab results Calcium 8.6 mg/dL (8.4-10.2) 03/04/21 23:13 Magnesium 2.10 mg/dL (1.7-2.3) 02/17/21 02:24 Medications & Allergies - Medications Allergies/Adverse Reactions: Allergies No Known Allergies Allergy (Verified 02/16/21 18:26) Home Medications: Home Medications Medication Instructions Recorded Confirmed Last Taken Type Calcium Acetate [Phoslo] 1,334 mg PO TIDWM #90 capsule 03/01/21 Unknown Rx Famotidine [Pepcid] 20 mg PO QAM #30 tablet 03/01/21 Unknown Rx Lactulose [Cephulac] 20 gm PO Q8HR 30 Days 03/01/21 Unknown Rx Lispro Insulin [HumaLOG] See Protocol SQ ACHS 30 Days 03/01/21 Unknown Rx allopurinoL [Zyloprim] 100 mg PO QDAY #30 tablet 03/01/21 Unknown Rx propranoloL [Inderal] 20 mg PO BID #60 tablet 03/01/21 Unknown Rx Active Medications: Generic Name Dose Route Start Last Admin Trade Name Freq PRN Reason Stop Dose Admin Acetaminophen 650 mg 02/18/21 22:38 02/23/21 17:36 Acetaminophen 325 Mg Tab PO 650 mg Q4H PRN Administration Pain MILD(1-3)/Fever >100.5/MOLINA Albuterol 2.5 mg 02/18/21 22:38 Albuterol 2.5 Mg/3 Ml Nebu IH Q3HRT PRN Shortness Of Breath Allopurinol 100 mg 02/20/21 10:00 03/04/21 16:16 Allopurinol 100 Mg Tab PO 100 mg QDAY LEYLA Administration Calcium Acetate 1,334 mg 02/20/21 08:30 03/04/21 17:13 Calcium Acetate 667 Mg Cap PO Not Given TIDWM LEYLA Dextrose 0 ml 02/18/21 23:00 02/25/21 16:56 Dextrose 50% In Water (25gm) 50 Ml Syringe IV 50 ml Q30MIN PRN Administration Hypoglycemia Protocol Diphenhydramine HCl 25 mg 02/23/21 09:10 03/01/21 10:30 Diphenhydramine 25 Mg Cap PO 25 mg BID PRN Administration Itching Famotidine 20 mg 02/19/21 10:00 03/04/21 16:16 Famotidine 20 Mg Tab PO 20 mg QAM LEYLA Administration Heparin Sodium (Porcine) 5,000 unit 02/19/21 06:00 03/05/21 05:27 Heparin 5,000 Unit/1 Ml Vial SUB-Q 5,000 unit Q8HR LEYLA Administration Hydralazine HCl 10 mg 02/18/21 22:56 Hydralazine 20 Mg/1 Ml Inj IV Q6H PRN htn Sodium Chloride 100 mls @ 999 mls/hr 02/19/21 09:06 Nacl 0.9% IV OLIVIA PRN Hypotension Insulin Human Lispro 0 unit 02/19/21 07:30 03/04/21 21:53 Insulin Lispro 100 Unit/Ml SUB-Q 4 unit ACHS LEYLA Administration Protocol Lactulose 20 gm 02/24/21 14:00 03/05/21 05:29 Lactulose 20 Gm/30 Ml Oral Liqd PO Not Given Q8HR [facility] Ondansetron HCl 4 mg 02/18/21 22:38 02/28/21 12:32 Ondansetron 4 Mg/2 Ml Inj IV 4 mg Q8H PRN Administration Nausea And Vomiting Polyethylene Glycol 17 gm 02/24/21 12:08 02/24/21 12:47 Polyethylene Glycol 3350 17 Gm Powder PO 17 gm QDAY PRN Administration Constipation Propranolol HCl 20 mg 02/20/21 10:00 03/04/21 21:54 Propranolol 10 Mg Tab PO 20 mg BID LEYLA Administration Sodium Chloride 10 ml 02/19/21 10:00 03/04/21 22:07 Sodium Chloride 0.9% 10 Ml Flush Syringe IV 10 ml BID LEYLA Administration Sodium Chloride 10 ml 02/18/21 22:38 Sodium Chloride 0.9% 10 Ml Flush Syringe IV PRN PRN LINE FLUSH Tramadol HCl 50 mg 02/24/21 13:20 02/25/21 10:17 Tramadol 50 Mg Tab PO 50 mg Q6H PRN Administration Pain, Moderate (4-6) Zolpidem Tartrate 5 mg 02/24/21 09:54 02/28/21 22:29 Zolpidem 5 Mg Tab PO 5 mg QHS PRN Administration Sleep
--- NOTE | 2021-03-05 07:54 | Progress Note ---
Assessment and Plan Assessment and plan: 55 YO Male with ESRD on HD, Noncompliance with outpatient dialysis, Anemia, HBV, Chronic Liver Disease, Cirrhosis complicated by Esophageal Varices, HTN, Debility, DM presents to ED with confusion with diminished cognition. Patient family report the patient was "not acting like himself" and found to have worsening confusion over the past 2 days. In the ER the patient was found to have hepatic encephalopathy complicated by diminished cognition, end-stage renal disease in need of urgent dialysis, as well as uncontrolled diabetes, and acidosis. Nephrology team consulted in ED and patient was then admitted for further evaluation and Mx. A/p -- Hepatic encephalopathy due to hepatic cirrhosis cont lactulose, Neuro check, seizure precaution, aspiration precaution, fall precautions, continue to monitor. -- End stage renal disease Nephrology team consulted, strict I's/O, monitor urine output every shift, dialysis as per renal team, avoid nephrotoxic agents. --Metabolic Acidosis Nephrology team consulted, dialysis as per renal team. --Hyponatremia Monitor BMP, monitor fluid balance. -- Hyperammonemia Continue lactulose --Diabetes mellitus with hyperglycemia Consistent carb diet, SSI -- hyperkalemia, Improvement with dialysis --Ascitis, s/p paracentesis drained 6.2l of ascitic fluid --Sacral wound, cont wound care -- Moderate Protein Calorie Malnutrition, nutrition consulted --Noncompliance, counseled for medication compliance --DVT Px, SCD --DNR code status --Disposition: needs placement, CM waiting for placement Daily clinical course: 02/19: Resume dialysis will adjust insulin for better coverage. Very poor progn osis considering poor medical compliance. Agree with hospice recommendation. Will obtain wound care to continue to manage. Monitor anemia as patient was pretty anemic during the last hospitalization. Required transfusion. 02/20: Continues to undergo dialysis no change in mental status noted. Tolerating medications. Blood sugar mildly elevated adjusted insulin yesterday when awake for the patient received a dose today and if still elevated will adjust. Again case management is working on discharge plan for this patient as he is pending placement 02/21 patient complains of right hip pain. He said he fell few weeks ago and is concerned about another fracture. He had a fracture about 8 weeks ago and had surgery. Will obtain X ray right hip. Patient pending placement. 02/22 Patient seen in Dialysis Unit. He states hip pain improved. No other complaints. Right hip X ray done yesterday report read may be healing fracture or acute fracture. Will discuss with Orthopedic Surgeon Patient pending placement 02/23 Less hip pain. Today complains of generalized itching. Will start Benadryl po prn. Orthopedic consulted to evaluate right hip. Patient pending placement 02/24 Less hip pain. Generalized itching now resolved. Orthopedic consulted to evaluate right hip. He complains of sleeplessness. Will give Ambien prn Patient pending placement 02/25 Patient requested DNR status yesterday. I discussed with him and he signed forms. He also complains of worsening abdominal distension and requested t apping, Will order paracentesis. Right hip evaluated by Dr. Trivedi and conservative management recommended. 02/26: Plan for paracentesis today. Need to set up dialysis as outpatient. foundation relations manager working on discharge planning. 02/27: Patient did not sign the consent for paracentesis yesterday so paracentesis was done today and aspirated 6.2L ascitic fluid. Patient refusing medication per RN. Getting dialysis. Patient noted slightly altered today, will place NG tube remains altered and keep refusing oral meds, order for ammonia level and will cont lactulose. 02/28: Patient appears much more calm and cooperative today. He stated that he has been refusing procedure and medication as he believes he was not in the right state of his mind. Patient acknowledges the importance of being compliant and he promises that he will take the medications as he will be given. Discharge planning per case management as patient would need outpatient dialysis center set up and personal nursing home set up. 03/01/21: Patient has senior living setting but according to pillowcase cutter no available RN to accept the patient till Thursday. Continue supportive care. Discharge pending on placement. 03/02/21 -03/04/21: Discharge pending on placement, continue to monitor clinically. Continue current management and plan and supportive care. Patient need SNF placement. 03/05/2021; Awaiting SNF placement for discharge. Prognosis is very poor. Patient is nonresponsive. I try to reach to his son over the phone but could not get in touch. Patient is appropriate for hospice care. History Interval history: Patient was seen and evaluated this morning Patient was minimally responsive Patient is not eating and drinking Hospitalist Physical - Physical exam Narrative exam: Not in cardiopulmonary distress. The patient appeared well nourished and normally developed. Vital signs as documented. Head exam is unremarkable. No scleral icterus . Neck is without jugular venous distension, thyromegaly, or carotid bruits. Lungs are clear to auscultation. Cardiac exam reveals regular rate and Rhythm. Abdominal exam reveals normal bowel sounds, nontender, no organomegaly. Extremities right BKA. WELDER PLASMA ARC: Patient is comatose Sacral decubitus ulcer. - Constitutional Vitals: Temp Pulse Resp BP Pulse Ox 99.7 F H 102 H 20 148/71 97 03/05/21 05:33 03/05/21 05:33 03/05/21 05:33 03/05/21 05:33 03/05/21 05:33 General appearance: Present: no acute distress, well-nourished Results - Labs CBC & Chem 7: 03/04/21 23:13 03/05/21 08:46 Labs: Laboratory Last Values WBC 6.2 K/mm3 (4.5-11.0) 03/04/21 23:13 RBC 2.54 M/mm3 (3.65-5.03) L 03/04/21 23:13 Hgb 8.2 gm/dl (11.8-15.2) L 03/04/21 23:13 Hct 23.8 % (35.5-45.6) L 03/04/21 23:13 MCV 94 fl (84-94) 03/04/21 23:13 MCH 32 pg (28-32) 03/04/21 23:13 MCHC 34 % (32-34) 03/04/21 23:13 RDW 16.3 % (13.2-15.2) H 03/04/21 23:13 Plt Count 139 K/mm3 (140-440) L 03/04/21 23:13 Lymph % (Auto) 13.2 % (13.4-35.0) L 02/28/21 12:37 [place] % (Auto) 10.6 % (0.0-7.3) H 02/28/21 12:37 Eos % (Auto) 1.1 % (0.0-4.3) 02/28/21 12:37 Baso % (Auto) 0.7 % (0.0-1.8) 02/28/21 12:37 Lymph # (Auto) 0.5 K/mm3 (1.2-5.4) L 02/28/21 12:37 [place] # (Auto) 0.4 K/mm3 (0.0-0.8) 02/28/21 12:37 Eos # (Auto) 0.0 K/mm3 (0.0-0.4) 02/28/21 12:37 Baso # (Auto) 0.0 K/mm3 (0.0-0.1) 02/28/21 12:37 Seg Neutrophils % 74.4 % (40.0-70.0) H 02/28/21 12:37 Seg Neutrophils # 2.7 K/mm3 (1.8-7.7) 02/28/21 12:37 PT 13.7 Sec. (12.2-14.9) 02/26/21 04:33 INR 1.00 (0.87-1.13) 02/26/21 04:33 Sodium 132 mmol/L (137-145) L 03/04/21 23:13 Potassium 5.6 mmol/L (3.6-5.0) H D 03/04/21 23:13 Chloride 91.6 mmol/L (98-107) L 03/04/21 23:13 Carbon Dioxide 27 mmol/L (22-30) 03/04/21 23:13 Anion Gap 19 mmol/L 03/04/21 23:13 BUN 47 mg/dL (9-20) H 03/04/21 23:13 Creatinine 5.7 mg/dL (0.8-1.3) H 03/04/21 23:13 Estimated GFR 10 ml/min 03/04/21 23:13 BUN/Creatinine Ratio 8 % 03/04/21 23:13 Glucose 285 mg/dL (75-100) H 03/04/21 23:13 POC Glucose 281 mg/dL (70-105) H 03/04/21 21:52 Hemoglobin A1c 7.4 % (4-6) H 02/26/21 04:33 Calcium 8.6 mg/dL (8.4-10.2) 03/04/21 23:13 Magnesium 2.10 mg/dL (1.7-2.3) 02/17/21 02:24 Total Bilirubin 0.60 mg/dL (0.1-1.2) 02/17/21 02:24 AST 18 units/L (5-40) 02/17/21 02:24 ALT 19 units/L (7-56) 02/17/21 02:24 Alkaline Phosphatase 171 units/L (35-129) H 02/17/21 02:24 Ammonia 138.0 umol/L (25-60) H 02/28/21 12:37 Total Creatine Kinase 86 units/L (55-170) 02/17/21 02:24 Total Protein 6.2 g/dL (6.3-8.2) L 02/17/21 02:24 Albumin 3.0 g/dL (3.9-5) L 02/17/21 02:24 Albumin/Globulin Ratio 0.9 % 02/17/21 02:24 TSH 0.986 mlU/mL (0.270-4.200) 02/17/21 02:24 Urine Color Yellow (Yellow) 02/17/21 Unknown Urine Turbidity Clear (Clear) 02/17/21 Unknown Urine pH 6.0 (5.0-7.0) 02/17/21 Unknown Ur Specific [place] 1.012 (1.003-1.030) 02/17/21 Unknown Urine Protein 100 mg/dl mg/dL (Negative) 02/17/21 Unknown Urine Glucose (UA) >=500 mg/dL (Negative) 02/17/21 Unknown Urine Ketones Neg mg/dL (Negative) 02/17/21 Unknown Urine Blood Neg (Negative) 02/17/21 Unknown Urine Nitrite Neg (Negative) 02/17/21 Unknown Urine Bilirubin Neg (Negative) 02/17/21 Unknown Urine Urobilinogen < 2.0 mg/dL (<2.0) 02/17/21 Unknown Ur Leukocyte Esterase Neg (Negative) 02/17/21 Unknown Urine WBC (Auto) 2.0 /HPF (0.0-6.0) 02/17/21 Unknown Urine RBC (Auto) 2.0 /HPF (0.0-6.0) 02/17/21 Unknown U Epithel Cells (Auto) < 1.0 /HPF (0-13.0) 02/17/21 Unknown Urine Bacteria (Auto) 1+ /HPF (Negative) 02/17/21 Unknown Salicylates < 0.3 mg/dL (2.8-20.0) L 02/17/21 02:24 Acetaminophen 5.0 ug/mL (10.0-30.0) L 02/17/21 02:24 Coronavirus (PCR) Negative (Negative) 02/20/21 Unknown Hepatitis A IgM Ab Non-reactive (NonReactive) 02/28/21 12:37 Hep Bs Antigen Non-reactive (Negative) 02/28/21 12:37 Hep B Core IgM Ab Non-reactive (NonReactive) 02/28/21 12:37 Hepatitis C Antibody Non-reactive (NonReactive) 02/28/21 12:37 Sr/IV: Voiding Method Incontinent Active Medications - Current Medications Current Medications: Generic Name Dose Route Start Last Admin Trade Name Freq PRN Reason Stop Dose Admin Acetaminophen 650 mg 02/18/21 22:38 02/23/21 17:36 Acetaminophen 325 Mg Tab PO 650 mg Q4H PRN Administration Pain MILD(1-3)/Fever >100.5/MOLINA Albuterol 2.5 mg 02/18/21 22:38 Albuterol 2.5 Mg/3 Ml Nebu IH Q3HRT PRN Shortness Of Breath Allopurinol 100 mg 02/20/21 10:00 03/04/21 16:16 Allopurinol 100 Mg Tab PO 100 mg QDAY LEYLA Administration Calcium Acetate 1,334 mg 02/20/21 08:30 03/04/21 17:13 Calcium Acetate 667 Mg Cap PO Not Given TIDWM LEYLA Dextrose 0 ml 02/18/21 23:00 02/25/21 16:56 Dextrose 50% In Water (25gm) 50 Ml Syringe IV 50 ml Q30MIN PRN Administration Hypoglycemia Protocol Diphenhydramine HCl 25 mg 02/23/21 09:10 03/01/21 10:30 Diphenhydramine 25 Mg Cap PO 25 mg BID PRN Administration Itching Famotidine 20 mg 02/19/21 10:00 03/04/21 16:16 Famotidine 20 Mg Tab PO 20 mg QAM LEYLA Administration Heparin Sodium (Porcine) 5,000 unit 02/19/21 06:00 03/05/21 05:27 Heparin 5,000 Unit/1 Ml Vial SUB-Q 5,000 unit Q8HR LEYLA Administration Hydralazine HCl 10 mg 02/18/21 22:56 Hydralazine 20 Mg/1 Ml Inj IV Q6H PRN htn Sodium Chloride 100 mls @ 999 mls/hr 02/19/21 09:06 Nacl 0.9% IV OLIVIA PRN Hypotension Insulin Human Lispro 0 unit 02/19/21 07:30 03/04/21 21:53 Insulin Lispro 100 Unit/Ml SUB-Q 4 unit ACHS LEYLA Administration Protocol Lactulose 20 gm 02/24/21 14:00 03/05/21 05:29 Lactulose 20 Gm/30 Ml Oral Liqd PO Not Given Q8HR LEYLA Ondansetron HCl 4 mg 02/18/21 22:38 02/28/21 12:32 Ondansetron 4 Mg/2 Ml Inj IV 4 mg Q8H PRN Administration Nausea And Vomiting Polyethylene Glycol 17 gm 02/24/21 12:08 02/24/21 12:47 Polyethylene Glycol 3350 17 Gm Powder PO 17 gm QDAY PRN Administration Constipation Propranolol HCl 20 mg 02/20/21 10:00 03/04/21 21:54 Propranolol 10 Mg Tab PO 20 mg BID LEYLA Administration Sodium Chloride 10 ml 02/19/21 10:00 03/04/21 22:07 Sodium Chloride 0.9% 10 Ml Flush Syringe IV 10 ml BID LEYLA Administration Sodium Chloride 10 ml 02/18/21 22:38 Sodium Chloride 0.9% 10 Ml Flush Syringe IV PRN PRN LINE FLUSH Tramadol HCl 50 mg 02/24/21 13:20 02/25/21 10:17 Tramadol 50 Mg Tab PO 50 mg Q6H PRN Administration Pain, Moderate (4-6) Zolpidem Tartrate 5 mg 02/24/21 09:54 02/28/21 22:29 Zolpidem 5 Mg Tab PO 5 mg QHS PRN Administration Sleep Nutrition/Malnutrition Assess - Dietary Evaluation Nutrition/Malnutrition Findings: Nutrition Notes Start: 02/19/21 10:48 Freq: Status: Active Protocol: Document 02/28/21 14:53 (Rec: 02/28/21 14:56 ALISSA [id number]) Nutrition Notes Initial or Follow up Reassessment Current Diagnosis CKD (stage V CKD),Decubitus( Pressure Ulcer),Diabetes, Hypertension Other Pertinent Diagnosis on HD, Liver dz, stage 2 sacral wound Current Diet Renal/Consistent CHO + Nepro once daily Labs/Tests Na 130 BUN 54 Cr 6.5 BG 295 Pertinent Medications Zofran Height 5 ft 11 in Weight 65.7 kg [place] Body Weight (kg) 78.18 BMI 20.2 Weight change and time frame Follow for trends Weight Status Appropriate Subjective/Other Information FU for intakes. Pt reports eating 100% of meals. Cracker wrappers at bedside. Pt asked for snacks- Nepro given. RN states pt ate 100% of breakfast. Percent of energy/protein needs met: 100%/100% Burn Absent Trauma Absent Current % PO Good (75-100%) Minimum of two criteria Yes Body Fat Depletion Mild depletion (non-severe) Fluid Accumulation Mild (non-severe) #2 Nutrition Diagnosis Increased nutrient needs ( specify in comment below) Diagnosis Progress(for reassessment Continues documentation) #1 Nutrition Diagnosis Malnutrition Diagnosis Progress(for reassessment Continues documentation) Is patient on ventilator? No Is Patient Ambulatory and/or Out of Bed No REE-([place]-confined to bed) 1815.540 Kcal/Kg value to use for calculation 31 Approximate Energy Requirements Using 7 kcal/Kg Calculation Used for Recommendations Kcal/kg Additional Notes Pro needs >1.2g/kg: >92g/day Fluid needs 1-1.5L/day Nutrition Intervention Change Diet Order: Continue current diet order Add Supplement/Snack (indicate name/kcal Nepro daily /protein ) Provides kCal: 425 Provides Protein (gm) 19 Goal #1 PO intake of meals plus ONS to meet at least 75% energy and pro needs Goal #2 Wound healing Follow-Up By: 03/05/21 Additional Comments F/U: intakes
[2021-03-05] MEDS: CALCIUM ACETATE 667 MG CAP PO SCH ×3 (08:00→17:03)
[2021-03-05 09:13] LABS: Calcium 9.2 mg/dL (8.4-10.2)
[2021-03-05] MEDS: allopurinoL 100 MG TAB PO SCH (10:00)
[2021-03-05] MEDS: FAMOTIDINE 20 MG TAB PO SCH (10:00)
[2021-03-05] MEDS: PROPRANOLOL 10 MG TAB PO SCH ×2 (10:00→22:03)
[2021-03-05] MEDS ORDERED: CALCIUM GLUCONATE 1,000 MG in SODIUM CHLORIDE 0.9% 100 ML IV ONE (22:23)
[2021-03-05] MEDS ORDERED: SODIUM POLYSTYRENE 15 GM/60 ML ORAL LIQD PO ONE (22:23)
[2021-03-05] MEDS ORDERED: DEXTROSE 50% IN WATER (25GM) 50 ML SYRINGE IV ONE (22:23)
[2021-03-05] MEDS ORDERED: INSULIN REGULAR, HUMAN 100 UNITS/1 ML IV ONE (22:23)
[2021-03-05] MEDS: DEXTROSE 50% IN WATER (25GM) 50 ML SYRINGE IV PRN (23:30)
[2021-03-06] MEDS: HEPARIN 5,000 UNIT/1 ML VIAL SUB-Q SCH ×3 (05:42→21:52)
[2021-03-06] MEDS: LACTULOSE 20 GM/30 ML ORAL LIQD PO SCH ×3 (05:42→21:51)
--- NOTE | 2021-03-06 07:39 | Progress Note ---
Assessment and Plan Assessment and plan: 55 YO Male with ESRD on HD, Noncompliance with outpatient dialysis, Anemia, HBV, Chronic Liver Disease, Cirrhosis complicated by Esophageal Varices, HTN, Debility, DM presents to ED with confusion with diminished cognition. Patient family report the patient was "not acting like himself" and found to have worsening confusion over the past 2 days. In the ER the patient was found to have hepatic encephalopathy complicated by diminished cognition, end-stage renal disease in need of urgent dialysis, as well as uncontrolled diabetes, and acidosis. Nephrology team consulted in ED and patient was then admitted for further evaluation and Mx. A/p -- Hepatic encephalopathy due to hepatic cirrhosis cont lactulose, Neuro check, seizure precaution, aspiration precaution, fall precautions, continue to monitor. -- End stage renal disease Nephrology team consulted, strict I's/O, monitor urine output every shift, dialysis as per renal team, avoid nephrotoxic agents. --Metabolic Acidosis Nephrology team consulted, dialysis as per renal team. --Hyponatremia Monitor BMP, monitor fluid balance. -- Hyperammonemia Continue lactulose --Diabetes mellitus with hyperglycemia Consistent carb diet, SSI -- hyperkalemia, Improvement with dialysis --Ascitis, s/p paracentesis drained 6.2l of ascitic fluid --Sacral wound, cont wound care -- Moderate Protein Calorie Malnutrition, nutrition consulted --Noncompliance, counseled for medication compliance --DVT Px, SCD --DNR code status --Disposition: needs placement, CM waiting for placement Daily clinical course: 02/19: Resume dialysis will adjust insulin for better coverage. Very poor progn osis considering poor medical compliance. Agree with hospice recommendation. Will obtain wound care to continue to manage. Monitor anemia as patient was pretty anemic during the last hospitalization. Required transfusion. 02/20: Continues to undergo dialysis no change in mental status noted. Tolerating medications. Blood sugar mildly elevated adjusted insulin yesterday when awake for the patient received a dose today and if still elevated will adjust. Again case management is working on discharge plan for this patient as he is pending placement 02/21 patient complains of right hip pain. He said he fell few weeks ago and is concerned about another fracture. He had a fracture about 8 weeks ago and had surgery. Will obtain X ray right hip. Patient pending placement. 02/22 Patient seen in Dialysis Unit. He states hip pain improved. No other complaints. Right hip X ray done yesterday report read may be healing fracture or acute fracture. Will discuss with Orthopedic Surgeon Patient pending placement 02/23 Less hip pain. Today complains of generalized itching. Will start Benadryl po prn. Orthopedic consulted to evaluate right hip. Patient pending placement 02/24 Less hip pain. Generalized itching now resolved. Orthopedic consulted to evaluate right hip. He complains of sleeplessness. Will give Ambien prn Patient pending placement 02/25 Patient requested DNR status yesterday. I discussed with him and he signed forms. He also complains of worsening abdominal distension and requested t apping, Will order paracentesis. Right hip evaluated by Dr. Trivedi and conservative management recommended. 02/26: Plan for paracentesis today. Need to set up dialysis as outpatient. senior online marketing manager working on discharge planning. 02/27: Patient did not sign the consent for paracentesis yesterday so paracentesis was done today and aspirated 6.2L ascitic fluid. Patient refusing medication per RN. Getting dialysis. Patient noted slightly altered today, will place NG tube remains altered and keep refusing oral meds, order for ammonia level and will cont lactulose. 02/28: Patient appears much more calm and cooperative today. He stated that he has been refusing procedure and medication as he believes he was not in the right state of his mind. Patient acknowledges the importance of being compliant and he promises that he will take the medications as he will be given. Discharge planning per case management as patient would need outpatient dialysis center set up and personal assisted set up. 03/01/21: Patient has skilled nursing setting but according to human services case manager no available RN to accept the patient till Thursday. Continue supportive care. Discharge pending on placement. 03/02/21 -03/04/21: Discharge pending on placement, continue to monitor clinically. Continue current management and plan and supportive care. Patient need SNF placement. 03/05/2021; Awaiting SNF placement for discharge. Prognosis is very poor. Patient is nonresponsive. I try to reach to his son over the phone but could not get in touch. Patient is appropriate for hospice care. 03/06/2021; patient is awaiting SNF placement. Patient was alert and oriented. No confusion. Patient is stable to be discharged back to SNF. History Interval history: Patient was seen and evaluated this morning Patient was alert and oriented Complaining pain at his BKA stump Hospitalist Physical - Physical exam Narrative exam: Not in cardiopulmonary distress. The patient appeared well nourished and normally developed. Vital signs as documented. Head exam is unremarkable. No scleral icterus . Neck is without jugular venous distension, thyromegaly, or carotid bruits. Lungs are clear to auscultation. Cardiac exam reveals regular rate and Rhythm. Abdominal exam reveals normal bowel sounds, nontender, no organomegaly. Extremities right BKA. LAYER OUT: Patient was alert and oriented. Sacral decubitus ulcer. - Constitutional Vitals: Temp Pulse Resp BP Pulse Ox 99.2 F 92 H 20 150/59 98 03/06/21 06:52 03/06/21 06:52 03/06/21 06:52 03/06/21 06:52 03/06/21 06:52 General appearance: Present: no acute distress, well-nourished Results - Labs CBC & Chem 7: 03/04/21 23:13 03/06/21 07:31 Labs: Laboratory Last Values WBC 6.2 K/mm3 (4.5-11.0) 03/04/21 23:13 RBC 2.54 M/mm3 (3.65-5.03) L 03/04/21 23:13 Hgb 8.2 gm/dl (11.8-15.2) L 03/04/21 23:13 Hct 23.8 % (35.5-45.6) L 03/04/21 23:13 MCV 94 fl (84-94) 03/04/21 23:13 MCH 32 pg (28-32) 03/04/21 23:13 MCHC 34 % (32-34) 03/04/21 23:13 RDW 16.3 % (13.2-15.2) H 03/04/21 23:13 Plt Count 139 K/mm3 (140-440) L 03/04/21 23:13 Lymph % (Auto) 13.2 % (13.4-35.0) L 02/28/21 12:37 [place] % (Auto) 10.6 % (0.0-7.3) H 02/28/21 12:37 Eos % (Auto) 1.1 % (0.0-4.3) 02/28/21 12:37 Baso % (Auto) 0.7 % (0.0-1.8) 02/28/21 12:37 Lymph # (Auto) 0.5 K/mm3 (1.2-5.4) L 02/28/21 12:37 [place] # (Auto) 0.4 K/mm3 (0.0-0.8) 02/28/21 12:37 Eos # (Auto) 0.0 K/mm3 (0.0-0.4) 02/28/21 12:37 Baso # (Auto) 0.0 K/mm3 (0.0-0.1) 02/28/21 12:37 Seg Neutrophils % 74.4 % (40.0-70.0) H 02/28/21 12:37 Seg Neutrophils # 2.7 K/mm3 (1.8-7.7) 02/28/21 12:37 PT 13.7 Sec. (12.2-14.9) 02/26/21 04:33 INR 1.00 (0.87-1.13) 02/26/21 04:33 Sodium 133 mmol/L (137-145) L 03/05/21 08:46 Potassium 5.8 mmol/L (3.6-5.0) H 03/05/21 08:46 Chloride 92.9 mmol/L (98-107) L 03/05/21 08:46 Carbon Dioxide 25 mmol/L (22-30) 03/05/21 08:46 Anion Gap 21 mmol/L 03/05/21 08:46 BUN 57 mg/dL (9-20) H 03/05/21 08:46 Creatinine 6.2 mg/dL (0.8-1.3) H 03/05/21 08:46 Estimated GFR 9 ml/min 03/05/21 08:46 BUN/Creatinine Ratio 9 % 03/05/21 08:46 Glucose 301 mg/dL (75-100) H 03/05/21 08:46 POC Glucose 208 mg/dL (70-105) H 03/05/21 21:54 Hemoglobin A1c 7.4 % (4-6) H 02/26/21 04:33 Calcium 9.2 mg/dL (8.4-10.2) 03/05/21 08:46 Magnesium 2.10 mg/dL (1.7-2.3) 02/17/21 02:24 Total Bilirubin 0.60 mg/dL (0.1-1.2) 02/17/21 02:24 AST 18 units/L (5-40) 02/17/21 02:24 ALT 19 units/L (7-56) 02/17/21 02:24 Alkaline Phosphatase 171 units/L (35-129) H 02/17/21 02:24 Ammonia 138.0 umol/L (25-60) H 02/28/21 12:37 Total Creatine Kinase 86 units/L (55-170) 02/17/21 02:24 Total Protein 6.2 g/dL (6.3-8.2) L 02/17/21 02:24 Albumin 3.0 g/dL (3.9-5) L 02/17/21 02:24 Albumin/Globulin Ratio 0.9 % 02/17/21 02:24 TSH 0.986 mlU/mL (0.270-4.200) 02/17/21 02:24 Urine Color Yellow (Yellow) 02/17/21 Unknown Urine Turbidity Clear (Clear) 02/17/21 Unknown Urine pH 6.0 (5.0-7.0) 02/17/21 Unknown Ur Specific [place] 1.012 (1.003-1.030) 02/17/21 Unknown Urine Protein 100 mg/dl mg/dL (Negative) 02/17/21 Unknown Urine Glucose (UA) >=500 mg/dL (Negative) 02/17/21 Unknown Urine Ketones Neg mg/dL (Negative) 02/17/21 Unknown Urine Blood Neg (Negative) 02/17/21 Unknown Urine Nitrite Neg (Negative) 02/17/21 Unknown Urine Bilirubin Neg (Negative) 02/17/21 Unknown Urine Urobilinogen < 2.0 mg/dL (<2.0) 02/17/21 Unknown Ur Leukocyte Esterase Neg (Negative) 02/17/21 Unknown Urine WBC (Auto) 2.0 /HPF (0.0-6.0) 02/17/21 Unknown Urine RBC (Auto) 2.0 /HPF (0.0-6.0) 02/17/21 Unknown U Epithel Cells (Auto) < 1.0 /HPF (0-13.0) 02/17/21 Unknown Urine Bacteria (Auto) 1+ /HPF (Negative) 02/17/21 Unknown Salicylates < 0.3 mg/dL (2.8-20.0) L 02/17/21 02:24 Acetaminophen 5.0 ug/mL (10.0-30.0) L 02/17/21 02:24 Coronavirus (PCR) Negative (Negative) 02/20/21 Unknown Hepatitis A IgM Ab Non-reactive (NonReactive) 02/28/21 12:37 Hep Bs Antigen Non-reactive (Negative) 02/28/21 12:37 Hep B Core IgM Ab Non-reactive (NonReactive) 02/28/21 12:37 Hepatitis C Antibody Non-reactive (NonReactive) 02/28/21 12:37 Sr/IV: Voiding Method Incontinent Active Medications - Current Medications Current Medications: Generic Name Dose Route Start Last Admin Trade Name Freq PRN Reason Stop Dose Admin Acetaminophen 650 mg 02/18/21 22:38 02/23/21 17:36 Acetaminophen 325 Mg Tab PO 650 mg Q4H PRN Administration Pain MILD(1-3)/Fever >100.5/MOLINA Albuterol 2.5 mg 02/18/21 22:38 Albuterol 2.5 Mg/3 Ml Nebu IH Q3HRT PRN Shortness Of Breath Allopurinol 100 mg 02/20/21 10:00 03/05/21 10:00 Allopurinol 100 Mg Tab PO Not Given QDAY [facility] Calcium Acetate 1,334 mg 02/20/21 08:30 03/05/21 17:03 Calcium Acetate 667 Mg Cap PO Not Given TIDWM [facility] Dextrose 0 ml 02/18/21 23:00 02/25/21 16:56 Dextrose 50% In Water (25gm) 50 Ml Syringe IV 50 ml Q30MIN PRN Administration Hypoglycemia Protocol Diphenhydramine HCl 25 mg 02/23/21 09:10 03/01/21 10:30 Diphenhydramine 25 Mg Cap PO 25 mg BID PRN Administration Itching Famotidine 20 mg 02/19/21 10:00 03/05/21 10:00 Famotidine 20 Mg Tab PO Not Given QAM [facility] Heparin Sodium (Porcine) 5,000 unit 02/19/21 06:00 03/06/21 05:42 Heparin 5,000 Unit/1 Ml Vial SUB-Q 5,000 unit Q8HR LEYLA Administration Hydralazine HCl 10 mg 02/18/21 22:56 Hydralazine 20 Mg/1 Ml Inj IV Q6H PRN htn Sodium Chloride 100 mls @ 999 mls/hr 02/19/21 09:06 Nacl 0.9% IV OLIVIA PRN Hypotension Insulin Human Lispro 0 unit 02/19/21 07:30 03/05/21 22:04 Insulin Lispro 100 Unit/Ml SUB-Q 3 unit ACHS LEYLA Administration Protocol Lactulose 20 gm 02/24/21 14:00 03/06/21 05:42 Lactulose 20 Gm/30 Ml Oral Liqd PO 20 gm Q8HR LEYLA Administration Ondansetron HCl 4 mg 02/18/21 22:38 02/28/21 12:32 Ondansetron 4 Mg/2 Ml Inj IV 4 mg Q8H PRN Administration Nausea And Vomiting Polyethylene Glycol 17 gm 02/24/21 12:08 02/24/21 12:47 Polyethylene Glycol 3350 17 Gm Powder PO 17 gm QDAY PRN Administration Constipation Propranolol HCl 20 mg 02/20/21 10:00 03/05/21 22:03 Propranolol 10 Mg Tab PO Not Given BID LEYLA Sodium Chloride 10 ml 02/19/21 10:00 03/05/21 22:04 Sodium Chloride 0.9% 10 Ml Flush Syringe IV 10 ml BID LEYLA Administration Sodium Chloride 10 ml 02/18/21 22:38 Sodium Chloride 0.9% 10 Ml Flush Syringe IV PRN PRN LINE FLUSH Tramadol HCl 50 mg 02/24/21 13:20 02/25/21 10:17 Tramadol 50 Mg Tab PO 50 mg Q6H PRN Administration Pain, Moderate (4-6) Zolpidem Tartrate 5 mg 02/24/21 09:54 02/28/21 22:29 Zolpidem 5 Mg Tab PO 5 mg QHS PRN Administration Sleep Nutrition/Malnutrition Assess - Dietary Evaluation Nutrition/Malnutrition Findings: Nutrition Notes Start: 02/19/21 10:48 Freq: Status: Active Protocol: Document 03/05/21 12:37 (Rec: 03/05/21 12:39 [email or web address]) Nutrition Notes Initial or Follow up Reassessment Current Diagnosis CKD (stage V CKD),Decubitus( Pressure Ulcer),Diabetes, Hypertension Other Pertinent Diagnosis on HD, Liver dz, stage 2 sacral wound Current Diet Renal/Consistent CHO + Nepro once daily Labs/Tests Na 133 K 5.8 Pertinent Medications Reviewed Height 5 ft 11 in Weight 68.3 kg [place] Body Weight (kg) 78.18 BMI 20.9 Weight Status Appropriate Subjective/Other Information FU for intakes. Pt not responding. Per chart, pt not eating or drinking. Percent of energy/protein needs met: 0%/0% Burn Absent Trauma Absent Current % PO Negligible Minimum of two criteria Yes Body Fat Depletion Mild depletion (non-severe) Fluid Accumulation Mild (non-severe) #2 Nutrition Diagnosis Increased nutrient needs ( specify in comment below) Diagnosis Progress(for reassessment Continues documentation) #1 Nutrition Diagnosis Malnutrition Diagnosis Progress(for reassessment Continues documentation) Is patient on ventilator? No Is Patient Ambulatory and/or Out of Bed No REE-([facility]-confined to bed) 1846.704 Kcal/Kg value to use for calculation 31 Approximate Energy Requirements Using 2117 kcal/Kg Calculation Used for Recommendations Kcal/kg Additional Notes Pro needs >1.2g/kg: >92g/day Fluid needs 1-1.5L/day Nutrition Intervention Change Diet Order: Continue current diet order Add Supplement/Snack (indicate name/kcal Nepro daily /protein ) Provides kCal: 425 Provides Protein (gm) 19 Goal #1 PO intake of meals plus ONS to meet at least 75% energy and pro needs Goal #2 Wound healing Follow-Up By: 03/07/21 Additional Comments FU for intakes
[2021-03-06] MEDS: CALCIUM ACETATE 667 MG CAP PO SCH ×3 (08:57→16:00)
[2021-03-06] MEDS: INSULIN LISPRO 100 UNIT/ML SUB-Q SCH ×4 (08:57→21:52)
[2021-03-06] MEDS: PROPRANOLOL 10 MG TAB PO SCH ×2 (10:10→21:51)
[2021-03-06] MEDS: FAMOTIDINE 20 MG TAB PO SCH (10:11)
[2021-03-06] MEDS: allopurinoL 100 MG TAB PO SCH (10:11)
--- NOTE | 2021-03-06 10:17 | Progress Note ---
Assessment and Plan 1. ESRD: Patient is on maintenance hemodialysis three times a week, MWF schedule. Meds dosage based on GFR. Missed HD 02/18. Hemodialysis: 02/19, 02/20, 02/22, 02/25, 02/27, 03/01, 03/04, 03/06. 2. FEN: Hyperkalemia, improved. Monitor lytes and volume status. 3. Anemia, POA: 2/2 ESRD and Liver disease. Epogen with HD. PRBC as needed. 4. Cirrhosis with h/o hepatic encephalopathy: Lactulose. Monitor. 5. DM type 2 uncontrolled: SSI. Monitor. 6. Thrombocytopenia, POA: 7. Hypertension: Monitor BP. Adjust meds as appropriate. Subjective: Patient was seen and examined at the bedside while on hemodialysis. General Appearance: General appearance: well-developed, appears stated age, not in distress HEENT: ATNC, pupils equal Neck: trachea midline Respiratory: ctab Heart: regular, S1S2, no murmur Abdomen: soft, bowel sounds heard, not tender Integumentary: no rash, warm and dry Neurologic: lethargic, non-verbal Ext: no edema, R BKA Hemodialysis access: R arm AVF Subjective Date of service: 03/06/21 Objective - Vital Signs Vital signs: Vital Signs - 12hr 03/06/21 03/06/21 03/06/21 06:52 09:30 09:45 Temperature 99.2 F 98.0 F Pulse Rate 92 H 90 90 Respiratory 20 18 Rate Blood Pressure 150/59 148/63 120/54 O2 Sat by Pulse 98 Oximetry - Lab 03/04/21 23:13 03/06/21 07:31 Most recent lab results Calcium 9.0 mg/dL (8.4-10.2) 03/06/21 07:31 Magnesium 2.10 mg/dL (1.7-2.3) 02/17/21 02:24 Medications & Allergies - Medications Allergies/Adverse Reactions: Allergies No Known Allergies Allergy (Verified 02/16/21 18:26) Home Medications: Home Medications Medication Instructions Recorded Confirmed Last Taken Type Calcium Acetate [Phoslo] 1,334 mg PO TIDWM #90 capsule 03/01/21 Unknown Rx Famotidine [Pepcid] 20 mg PO QAM #30 tablet 03/01/21 Unknown Rx Lactulose [Cephulac] 20 gm PO Q8HR 30 Days 03/01/21 Unknown Rx Lispro Insulin [HumaLOG] See Protocol SQ ACHS 30 Days 03/01/21 Unknown Rx allopurinoL [Zyloprim] 100 mg PO QDAY #30 tablet 03/01/21 Unknown Rx propranoloL [Inderal] 20 mg PO BID #60 tablet 03/01/21 Unknown Rx Active Medications: Generic Name Dose Route Start Last Admin Trade Name Freq PRN Reason Stop Dose Admin Acetaminophen 650 mg 02/18/21 22:38 02/23/21 17:36 Acetaminophen 325 Mg Tab PO 650 mg Q4H PRN Administration Pain MILD(1-3)/Fever >100.5/MOLINA Albuterol 2.5 mg 02/18/21 22:38 Albuterol 2.5 Mg/3 Ml Nebu IH Q3HRT PRN Shortness Of Breath Allopurinol 100 mg 02/20/21 10:00 03/06/21 10:11 Allopurinol 100 Mg Tab PO Not Given QDAY LEYLA Calcium Acetate 1,334 mg 02/20/21 08:30 03/06/21 08:57 Calcium Acetate 667 Mg Cap PO 1,334 mg TIDWM LEYLA Administration Dextrose 0 ml 02/18/21 23:00 02/25/21 16:56 Dextrose 50% In Water (25gm) 50 Ml Syringe IV 50 ml Q30MIN PRN Administration Hypoglycemia Protocol Diphenhydramine HCl 25 mg 02/23/21 09:10 03/01/21 10:30 Diphenhydramine 25 Mg Cap PO 25 mg BID PRN Administration Itching Famotidine 20 mg 02/19/21 10:00 03/06/21 10:11 Famotidine 20 Mg Tab PO Not Given QAM LEYLA Heparin Sodium (Porcine) 5,000 unit 02/19/21 06:00 03/06/21 05:42 Heparin 5,000 Unit/1 Ml Vial SUB-Q 5,000 unit Q8HR LEYLA Administration Hydralazine HCl 10 mg 02/18/21 22:56 Hydralazine 20 Mg/1 Ml Inj IV Q6H PRN htn Sodium Chloride 100 mls @ 999 mls/hr 02/19/21 09:06 Nacl 0.9% IV OLIVIA PRN Hypotension Insulin Human Lispro 0 unit 02/19/21 07:30 03/06/21 08:57 Insulin Lispro 100 Unit/Ml SUB-Q 3 unit ACHS LEYLA Administration Protocol Lactulose 20 gm 02/24/21 14:00 03/06/21 05:42 Lactulose 20 Gm/30 Ml Oral Liqd PO 20 gm Q8HR LEYLA Administration Ondansetron HCl 4 mg 02/18/21 22:38 02/28/21 12:32 Ondansetron 4 Mg/2 Ml Inj IV 4 mg Q8H PRN Administration Nausea And Vomiting Polyethylene Glycol 17 gm 02/24/21 12:08 02/24/21 12:47 Polyethylene Glycol 3350 17 Gm Powder PO 17 gm QDAY PRN Administration Constipation Propranolol HCl 20 mg 02/20/21 10:00 03/06/21 10:10 Propranolol 10 Mg Tab PO Not Given BID LEYLA Sodium Chloride 10 ml 02/19/21 10:00 03/05/21 22:04 Sodium Chloride 0.9% 10 Ml Flush Syringe IV 10 ml BID LEYLA Administration Sodium Chloride 10 ml 02/18/21 22:38 Sodium Chloride 0.9% 10 Ml Flush Syringe IV PRN PRN LINE FLUSH Tramadol HCl 50 mg 02/24/21 13:20 02/25/21 10:17 Tramadol 50 Mg Tab PO 50 mg Q6H PRN Administration Pain, Moderate (4-6) Zolpidem Tartrate 5 mg 02/24/21 09:54 02/28/21 22:29 Zolpidem 5 Mg Tab PO 5 mg QHS PRN Administration Sleep
[2021-03-06] MEDS: EPOETIN ALFA-EPBX 20,000 UNIT/1 ML VIAL SUB-Q PRN (12:39)
[2021-03-06] MEDS: ACETAMINOPHEN 325 MG TAB PO PRN (18:30)
[2021-03-06] MEDS: ZOLPIDEM 5 MG TAB PO PRN (21:51)
[2021-03-07 05:47] LABS: Hemoglobin 6.8 gm/dl (11.8-15.2); Mean Corpuscular HGB Conc 34 % (32-34); Mean Corpuscular Volume 95 fl (84-94); Red Blood Count 2.09 M/mm3 (3.65-5.03)
[2021-03-07 05:52] LABS: Hematocrit 19.9 % (35.5-45.6); Platelet Count 86 K/mm3 (140-440)
[2021-03-07] MEDS: LACTULOSE 20 GM/30 ML ORAL LIQD PO SCH ×3 (06:37→22:54)
[2021-03-07] MEDS ORDERED: SODIUM CHLORIDE 0.9% 500 ML 500 ML IV ONE (06:48)
[2021-03-07 07:10] LABS: Calcium 8.4 mg/dL (8.4-10.2)
--- NOTE | 2021-03-07 08:41 | Progress Note ---
Assessment and Plan Assessment and plan: 55 YO Male with ESRD on HD, Noncompliance with outpatient dialysis, Anemia, HBV, Chronic Liver Disease, Cirrhosis complicated by Esophageal Varices, HTN, Debility, DM presents to ED with confusion with diminished cognition. Patient family report the patient was "not acting like himself" and found to have worsening confusion over the past 2 days. In the ER the patient was found to have hepatic encephalopathy complicated by diminished cognition, end-stage renal disease in need of urgent dialysis, as well as uncontrolled diabetes, and acidosis. Nephrology team consulted in ED and patient was then admitted for further evaluation and Mx. A/p -- Hepatic encephalopathy due to hepatic cirrhosis cont lactulose, Neuro check, seizure precaution, aspiration precaution, fall precautions, continue to monitor. -- End stage renal disease Nephrology team consulted, strict I's/O, monitor urine output every shift, dialysis as per renal team, avoid nephrotoxic agents. --Metabolic Acidosis Nephrology team consulted, dialysis as per renal team. --Hyponatremia Monitor BMP, monitor fluid balance. -- Hyperammonemia Continue lactulose --Diabetes mellitus with hyperglycemia Consistent carb diet, SSI -- hyperkalemia, Improvement with dialysis --Ascitis, s/p paracentesis drained 6.2l of ascitic fluid --Sacral wound, cont wound care -- Moderate Protein Calorie Malnutrition, nutrition consulted --Noncompliance, counseled for medication compliance --DVT Px, SCD --DNR code status --Disposition: needs placement, CM waiting for placement Daily clinical course: 02/19: Resume dialysis will adjust insulin for better coverage. Very poor progn osis considering poor medical compliance. Agree with hospice recommendation. Will obtain wound care to continue to manage. Monitor anemia as patient was pretty anemic during the last hospitalization. Required transfusion. 02/20: Continues to undergo dialysis no change in mental status noted. Tolerating medications. Blood sugar mildly elevated adjusted insulin yesterday when awake for the patient received a dose today and if still elevated will adjust. Again case management is working on discharge plan for this patient as he is pending placement 02/21 patient complains of right hip pain. He said he fell few weeks ago and is concerned about another fracture. He had a fracture about 8 weeks ago and had surgery. Will obtain X ray right hip. Patient pending placement. 02/22 Patient seen in Dialysis Unit. He states hip pain improved. No other complaints. Right hip X ray done yesterday report read may be healing fracture or acute fracture. Will discuss with Orthopedic Surgeon Patient pending placement 02/23 Less hip pain. Today complains of generalized itching. Will start Benadryl po prn. Orthopedic consulted to evaluate right hip. Patient pending placement 02/24 Less hip pain. Generalized itching now resolved. Orthopedic consulted to evaluate right hip. He complains of sleeplessness. Will give Ambien prn Patient pending placement 02/25 Patient requested DNR status yesterday. I discussed with him and he signed forms. He also complains of worsening abdominal distension and requested t apping, Will order paracentesis. Right hip evaluated by Dr. Trivedi and conservative management recommended. 02/26: Plan for paracentesis today. Need to set up dialysis as outpatient. assistant manager trainee working on discharge planning. 02/27: Patient did not sign the consent for paracentesis yesterday so paracentesis was done today and aspirated 6.2L ascitic fluid. Patient refusing medication per RN. Getting dialysis. Patient noted slightly altered today, will place NG tube remains altered and keep refusing oral meds, order for ammonia level and will cont lactulose. 02/28: Patient appears much more calm and cooperative today. He stated that he has been refusing procedure and medication as he believes he was not in the right state of his mind. Patient acknowledges the importance of being compliant and he promises that he will take the medications as he will be given. Discharge planning per case management as patient would need outpatient dialysis center set up and personal shelter set up. 03/01/21: Patient has [facility] setting but according to case finishing machine adjuster no available RN to accept the patient till Thursday. Continue supportive care. Discharge pending on placement. 03/02/21 -03/04/21: Discharge pending on placement, continue to monitor clinically. Continue current management and plan and supportive care. Patient need SNF placement. 03/05/2021; Awaiting SNF placement for discharge. Prognosis is very poor. Patient is nonresponsive. I try to reach to his son over the phone but could not get in touch. Patient is appropriate for hospice care. 03/06/2021; patient is awaiting SNF placement. Patient was alert and oriented. No confusion. Patient is stable to be discharged back to SNF. 03/07/2021; patient has hemoglobin of 6.8 this morning. A unit of blood ordered. Will monitor H&H. Nephrology is following for dialysis. History Interval history: Patient was seen and evaluated this morning Patient was alert and oriented Complaining pain at his BKA stump Hospitalist Physical - Physical exam Narrative exam: Not in cardiopulmonary distress. The patient appeared well nourished and normally developed. Vital signs as documented. Head exam is unremarkable. No scleral icterus . Neck is without jugular venous distension, thyromegaly, or carotid bruits. Lungs are clear to auscultation. Cardiac exam reveals regular rate and Rhythm. Abdominal exam reveals normal bowel sounds, nontender, no organomegaly. Extremities right BKA. RANGE AID: Patient was alert and oriented. Sacral decubitus ulcer. - Constitutional Vitals: Temp Pulse Resp BP Pulse Ox 99.9 F H 90 20 120/41 99 03/07/21 06:06 03/07/21 06:06 03/07/21 06:06 03/07/21 06:06 03/07/21 06:06 General appearance: Present: no acute distress, well-nourished Results - Labs CBC & Chem 7: 03/07/21 05:23 03/07/21 05:23 Labs: Laboratory Last Values WBC 2.5 K/mm3 (4.5-11.0) L 03/07/21 05:23 RBC 2.09 M/mm3 (3.65-5.03) L 03/07/21 05:23 Hgb 6.8 gm/dl (11.8-15.2) L 03/07/21 05:23 Hct 19.9 % (35.5-45.6) L* 03/07/21 05:23 MCV 95 fl (84-94) H 03/07/21 05:23 MCH 32 pg (28-32) 03/07/21 05:23 MCHC 34 % (32-34) 03/07/21 05:23 RDW 16.0 % (13.2-15.2) H 03/07/21 05:23 Plt Count 86 K/mm3 (140-440) L 03/07/21 05:23 Lymph % (Auto) 13.2 % (13.4-35.0) L 02/28/21 12:37 [place] % (Auto) Group Account Director 03/07/21 05:23 Eos % (Auto) 1.1 % (0.0-4.3) 02/28/21 12:37 Baso % (Auto) 0.7 % (0.0-1.8) 02/28/21 12:37 Lymph # (Auto) 0.5 K/mm3 (1.2-5.4) L 02/28/21 12:37 [place] # (Auto) 0.4 K/mm3 (0.0-0.8) 02/28/21 12:37 Eos # (Auto) 0.0 K/mm3 (0.0-0.4) 02/28/21 12:37 Baso # (Auto) 0.0 K/mm3 (0.0-0.1) 02/28/21 12:37 Seg Neutrophils % 74.4 % (40.0-70.0) H 02/28/21 12:37 Seg Neutrophils # 2.7 K/mm3 (1.8-7.7) 02/28/21 12:37 PT 13.7 Sec. (12.2-14.9) 02/26/21 04:33 INR 1.00 (0.87-1.13) 02/26/21 04:33 Sodium 134 mmol/L (137-145) L 03/07/21 05:23 Potassium 3.8 mmol/L (3.6-5.0) 03/07/21 05:23 Chloride 93.6 mmol/L (98-107) L 03/07/21 05:23 Carbon Dioxide 31 mmol/L (22-30) H 03/07/21 05:23 Anion Gap 13 mmol/L 03/07/21 05:23 BUN 38 mg/dL (9-20) H 03/07/21 05:23 Creatinine 4.5 mg/dL (0.8-1.3) H 03/07/21 05:23 Estimated GFR 14 ml/min 03/07/21 05:23 BUN/Creatinine Ratio 8 % 03/07/21 05:23 Glucose 284 mg/dL (75-100) H 03/07/21 05:23 POC Glucose 375 mg/dL (70-105) H 03/06/21 21:10 Hemoglobin A1c 7.4 % (4-6) H 02/26/21 04:33 Calcium 8.4 mg/dL (8.4-10.2) 03/07/21 05:23 Magnesium 2.10 mg/dL (1.7-2.3) 02/17/21 02:24 Total Bilirubin 0.60 mg/dL (0.1-1.2) 02/17/21 02:24 AST 18 units/L (5-40) 02/17/21 02:24 ALT 19 units/L (7-56) 02/17/21 02:24 Alkaline Phosphatase 171 units/L (35-129) H 02/17/21 02:24 Ammonia 138.0 umol/L (25-60) H 02/28/21 12:37 Total Creatine Kinase 86 units/L (55-170) 02/17/21 02:24 Total Protein 6.2 g/dL (6.3-8.2) L 02/17/21 02:24 Albumin 3.0 g/dL (3.9-5) L 02/17/21 02:24 Albumin/Globulin Ratio 0.9 % 02/17/21 02:24 TSH 0.986 mlU/mL (0.270-4.200) 02/17/21 02:24 Urine Color Yellow (Yellow) 02/17/21 Unknown Urine Turbidity Clear (Clear) 02/17/21 Unknown Urine pH 6.0 (5.0-7.0) 02/17/21 Unknown Ur Specific [place] 1.012 (1.003-1.030) 02/17/21 Unknown Urine Protein 100 mg/dl mg/dL (Negative) 02/17/21 Unknown Urine Glucose (UA) >=500 mg/dL (Negative) 02/17/21 Unknown Urine Ketones Neg mg/dL (Negative) 02/17/21 Unknown Urine Blood Neg (Negative) 02/17/21 Unknown Urine Nitrite Neg (Negative) 02/17/21 Unknown Urine Bilirubin Neg (Negative) 02/17/21 Unknown Urine Urobilinogen < 2.0 mg/dL (<2.0) 02/17/21 Unknown Ur Leukocyte Esterase Neg (Negative) 02/17/21 Unknown Urine WBC (Auto) 2.0 /HPF (0.0-6.0) 02/17/21 Unknown Urine RBC (Auto) 2.0 /HPF (0.0-6.0) 02/17/21 Unknown U Epithel Cells (Auto) < 1.0 /HPF (0-13.0) 02/17/21 Unknown Urine Bacteria (Auto) 1+ /HPF (Negative) 02/17/21 Unknown Salicylates < 0.3 mg/dL (2.8-20.0) L 02/17/21 02:24 Acetaminophen 5.0 ug/mL (10.0-30.0) L 02/17/21 02:24 Coronavirus (PCR) Negative (Negative) 02/20/21 Unknown Hepatitis A IgM Ab Non-reactive (NonReactive) 02/28/21 12:37 Hep Bs Antigen Non-reactive (Negative) 02/28/21 12:37 Hep B Core IgM Ab Non-reactive (NonReactive) 02/28/21 12:37 Hepatitis C Antibody Non-reactive (NonReactive) 02/28/21 12:37 Blood Type A POSITIVE 03/07/21 06:31 Crossmatch See Detail 03/07/21 06:31 Sr/IV: Voiding Method Incontinent Active Medications - Current Medications Current Medications: Generic Name Dose Route Start Last Admin Trade Name Freq PRN Reason Stop Dose Admin Acetaminophen 650 mg 02/18/21 22:38 03/06/21 18:30 Acetaminophen 325 Mg Tab PO 650 mg Q4H PRN Administration Pain MILD(1-3)/Fever >100.5/MOLINA Albuterol 2.5 mg 02/18/21 22:38 Albuterol 2.5 Mg/3 Ml Nebu IH Q3HRT PRN Shortness Of Breath Allopurinol 100 mg 02/20/21 10:00 03/06/21 10:11 Allopurinol 100 Mg Tab PO Not Given QDAY LEYLA Calcium Acetate 1,334 mg 02/20/21 08:30 03/06/21 16:00 Calcium Acetate 667 Mg Cap PO 1,334 mg TIDWM LEYLA Administration Dextrose 0 ml 02/18/21 23:00 02/25/21 16:56 Dextrose 50% In Water (25gm) 50 Ml Syringe IV 50 ml Q30MIN PRN Administration Hypoglycemia Protocol Diphenhydramine HCl 25 mg 02/23/21 09:10 03/01/21 10:30 Diphenhydramine 25 Mg Cap PO 25 mg BID PRN Administration Itching Famotidine 20 mg 02/19/21 10:00 03/06/21 10:11 Famotidine 20 Mg Tab PO Not Given QAM LEYLA Hydralazine HCl 10 mg 02/18/21 22:56 Hydralazine 20 Mg/1 Ml Inj IV Q6H PRN htn Sodium Chloride 100 mls @ 999 mls/hr 02/19/21 09:06 Nacl 0.9% IV OLIVIA PRN Hypotension Insulin Human Lispro 0 unit 02/19/21 07:30 03/06/21 21:52 Insulin Lispro 100 Unit/Ml SUB-Q 8 unit ACHS LEYLA Administration Protocol Lactulose 20 gm 02/24/21 14:00 03/07/21 06:37 Lactulose 20 Gm/30 Ml Oral Liqd PO 20 gm Q8HR LEYLA Administration Ondansetron HCl 4 mg 02/18/21 22:38 02/28/21 12:32 Ondansetron 4 Mg/2 Ml Inj IV 4 mg Q8H PRN Administration Nausea And Vomiting Polyethylene Glycol 17 gm 02/24/21 12:08 02/24/21 12:47 Polyethylene Glycol 3350 17 Gm Powder PO 17 gm QDAY PRN Administration Constipation Propranolol HCl 20 mg 02/20/21 10:00 03/06/21 21:51 Propranolol 10 Mg Tab PO Not Given BID LEYLA Sodium Chloride 10 ml 02/19/21 10:00 03/06/21 21:52 Sodium Chloride 0.9% 10 Ml Flush Syringe IV Not Given BID LEYLA Sodium Chloride 10 ml 02/18/21 22:38 Sodium Chloride 0.9% 10 Ml Flush Syringe IV PRN PRN LINE FLUSH Tramadol HCl 50 mg 02/24/21 13:20 02/25/21 10:17 Tramadol 50 Mg Tab PO 50 mg Q6H PRN Administration Pain, Moderate (4-6) Zolpidem Tartrate 5 mg 02/24/21 09:54 03/06/21 21:51 Zolpidem 5 Mg Tab PO 5 mg QHS PRN Administration Sleep Nutrition/Malnutrition Assess - Dietary Evaluation Nutrition/Malnutrition Findings: Nutrition Notes Start: 02/19/21 10:48 Freq: Status: Active Protocol: Document 03/05/21 12:37 (Rec: 03/05/21 12:39 ALISSA [id number]) Nutrition Notes Initial or Follow up Reassessment Current Diagnosis CKD (stage V CKD),Decubitus( Pressure Ulcer),Diabetes, Hypertension Other Pertinent Diagnosis on HD, Liver dz, stage 2 sacral wound Current Diet Renal/Consistent CHO + Nepro once daily Labs/Tests Na 133 K 5.8 Pertinent Medications Reviewed Height 5 ft 11 in Weight 68.3 kg [place] Body Weight (kg) 78.18 BMI 20.9 Weight Status Appropriate Subjective/Other Information FU for intakes. Pt not responding. Per chart, pt not eating or drinking. Percent of energy/protein needs met: 0%/0% Burn Absent Trauma Absent Current % PO Negligible Minimum of two criteria Yes Body Fat Depletion Mild depletion (non-severe) Fluid Accumulation Mild (non-severe) #2 Nutrition Diagnosis Increased nutrient needs ( specify in comment below) Diagnosis Progress(for reassessment Continues documentation) #1 Nutrition Diagnosis Malnutrition Diagnosis Progress(for reassessment Continues documentation) Is patient on ventilator? No Is Patient Ambulatory and/or Out of Bed No REE-(Walker-St. Jeor-confined to bed) 1846.704 Kcal/Kg value to use for calculation 31 Approximate Energy Requirements Using 2117 kcal/Kg Calculation Used for Recommendations Kcal/kg Additional Notes Pro needs >1.2g/kg: >92g/day Fluid needs 1-1.5L/day Nutrition Intervention Change Diet Order: Continue current diet order Add Supplement/Snack (indicate name/kcal Nepro daily /protein ) Provides kCal: 425 Provides Protein (gm) 19 Goal #1 PO intake of meals plus ONS to meet at least 75% energy and pro needs Goal #2 Wound healing Follow-Up By: 03/07/21 Additional Comments FU for intakes
[2021-03-07] MEDS: INSULIN LISPRO 100 UNIT/ML SUB-Q SCH ×4 (09:38→22:54)
--- NOTE | 2021-03-07 10:07 | Progress Note ---
Assessment and Plan 1. ESRD: Patient is on maintenance hemodialysis three times a week, MWF schedule. Meds dosage based on GFR. Missed HD 02/18. Hemodialysis: 02/19, 02/20, 02/22, 02/25, 02/27, 03/01, 03/04, 03/06. 2. FEN: Hyperkalemia, improved. Monitor lytes and volume status. 3. Anemia, POA: 2/2 ESRD and Liver disease. Epogen with HD. PRBC as needed. 4. Cirrhosis with h/o hepatic encephalopathy: Lactulose. Monitor. 5. DM type 2 uncontrolled: SSI. Monitor. 6. Thrombocytopenia, POA: 7. Hypertension: Monitor BP. Adjust meds as appropriate. Subjective: Patient was seen and examined at the bedside. General Appearance: General appearance: well-developed, appears stated age, not in distress HEENT: ATNC, pupils equal Neck: trachea midline Respiratory: ctab Heart: regular, S1S2, no murmur Abdomen: soft, bowel sounds heard, not tender Integumentary: no rash, warm and dry Neurologic: lethargic, non-verbal Ext: no edema, R BKA Hemodialysis access: R arm AVF Subjective Date of service: 03/07/21 Objective - Vital Signs Vital signs: Vital Signs - 12hr 03/07/21 03/07/21 01:11 06:06 Temperature 99.6 F 99.9 F H Pulse Rate 97 H 90 Respiratory 20 20 Rate Blood Pressure 117/55 120/41 O2 Sat by Pulse 99 99 Oximetry - Lab 03/07/21 05:23 03/07/21 05:23 Most recent lab results Calcium 8.4 mg/dL (8.4-10.2) 03/07/21 05:23 Magnesium 2.10 mg/dL (1.7-2.3) 02/17/21 02:24 Medications & Allergies - Medications Allergies/Adverse Reactions: Allergies No Known Allergies Allergy (Verified 02/16/21 18:26) Home Medications: Home Medications Medication Instructions Recorded Confirmed Last Taken Type Calcium Acetate [Phoslo] 1,334 mg PO TIDWM #90 capsule 03/01/21 Unknown Rx Famotidine [Pepcid] 20 mg PO QAM #30 tablet 03/01/21 Unknown Rx Lactulose [Cephulac] 20 gm PO Q8HR 30 Days 03/01/21 Unknown Rx Lispro Insulin [HumaLOG] See Protocol SQ ACHS 30 Days 03/01/21 Unknown Rx allopurinoL [Zyloprim] 100 mg PO QDAY #30 tablet 03/01/21 Unknown Rx propranoloL [Inderal] 20 mg PO BID #60 tablet 03/01/21 Unknown Rx Active Medications: Generic Name Dose Route Start Last Admin Trade Name Freq PRN Reason Stop Dose Admin Acetaminophen 650 mg 02/18/21 22:38 03/06/21 18:30 Acetaminophen 325 Mg Tab PO 650 mg Q4H PRN Administration Pain MILD(1-3)/Fever >100.5/MOLINA Albuterol 2.5 mg 02/18/21 22:38 Albuterol 2.5 Mg/3 Ml Nebu IH Q3HRT PRN Shortness Of Breath Allopurinol 100 mg 02/20/21 10:00 03/06/21 10:11 Allopurinol 100 Mg Tab PO Not Given QDAY LEYLA Calcium Acetate 1,334 mg 02/20/21 08:30 03/06/21 16:00 Calcium Acetate 667 Mg Cap PO 1,334 mg TIDWM LEYLA Administration Dextrose 0 ml 02/18/21 23:00 02/25/21 16:56 Dextrose 50% In Water (25gm) 50 Ml Syringe IV 50 ml Q30MIN PRN Administration Hypoglycemia Protocol Diphenhydramine HCl 25 mg 02/23/21 09:10 03/01/21 10:30 Diphenhydramine 25 Mg Cap PO 25 mg BID PRN Administration Itching Famotidine 20 mg 02/19/21 10:00 03/06/21 10:11 Famotidine 20 Mg Tab PO Not Given QAM [facility] Hydralazine HCl 10 mg 02/18/21 22:56 Hydralazine 20 Mg/1 Ml Inj IV Q6H PRN htn Sodium Chloride 100 mls @ 999 mls/hr 02/19/21 09:06 Nacl 0.9% IV OLIVIA PRN Hypotension Insulin Human Lispro 0 unit 02/19/21 07:30 03/07/21 09:38 Insulin Lispro 100 Unit/Ml SUB-Q Not Given ACHS [facility] Protocol Lactulose 20 gm 02/24/21 14:00 03/07/21 06:37 Lactulose 20 Gm/30 Ml Oral Liqd PO 20 gm Q8HR LEYLA Administration Ondansetron HCl 4 mg 02/18/21 22:38 02/28/21 12:32 Ondansetron 4 Mg/2 Ml Inj IV 4 mg Q8H PRN Administration Nausea And Vomiting Polyethylene Glycol 17 gm 02/24/21 12:08 02/24/21 12:47 Polyethylene Glycol 3350 17 Gm Powder PO 17 gm QDAY PRN Administration Constipation Propranolol HCl 20 mg 02/20/21 10:00 03/06/21 21:51 Propranolol 10 Mg Tab PO Not Given BID LEYLA Sodium Chloride 10 ml 02/19/21 10:00 03/06/21 21:52 Sodium Chloride 0.9% 10 Ml Flush Syringe IV Not Given BID LEYLA Sodium Chloride 10 ml 02/18/21 22:38 Sodium Chloride 0.9% 10 Ml Flush Syringe IV PRN PRN LINE FLUSH Tramadol HCl 50 mg 02/24/21 13:20 02/25/21 10:17 Tramadol 50 Mg Tab PO 50 mg Q6H PRN Administration Pain, Moderate (4-6) Zolpidem Tartrate 5 mg 02/24/21 09:54 03/06/21 21:51 Zolpidem 5 Mg Tab PO 5 mg QHS PRN Administration Sleep
[2021-03-07] MEDS: FAMOTIDINE 20 MG TAB PO SCH (10:19)
[2021-03-07] MEDS: CALCIUM ACETATE 667 MG CAP PO SCH ×3 (10:19→17:57)
[2021-03-07] MEDS: allopurinoL 100 MG TAB PO SCH (10:20)
[2021-03-07] MEDS: PROPRANOLOL 10 MG TAB PO SCH ×2 (10:30→22:54)
--- NOTE | 2021-03-07 12:07 | XRay Report ---
CHEST PA AND LATERAL VIEWS INDICATION: Chest pain. COMPARISON: 02/12/2021 FINDINGS: Support devices: None. Heart: Within normal limits. Lungs/Pleura: Subtle opacities in the right mid to lower lung are new since the prior. Left lung is c lear. No pleural abnormality. IMPRESSION: 1. Subtle, somewhat patchy opacities in the right mid to lower lung are new since the prior. These co uld be due to atelectasis. Infiltrates could have this appearance. Follow-up is recommended. Signer Name: Jack Chamberlain MD Signed: 03/07/2021 12:03 PM Workstation Name: [id number]
[2021-03-07] MEDS ORDERED: SODIUM CHLORIDE 0.9% 500 ML 500 ML ONE (14:21)
[2021-03-07] MEDS: ACETAMINOPHEN 325 MG TAB PO PRN (14:38)
[2021-03-07 14:59] LABS: Total Cells Counted 100
[2021-03-07 15:00] LABS: Anisocytosis Few; Platelet Estimate Consistent w Auto
[2021-03-07] MEDS: HEPARIN 5,000 UNIT/1 ML VIAL SUB-Q SCH (20:57)
[2021-03-08] MEDS: ZOLPIDEM 5 MG TAB PO PRN ×2 (00:42→23:25)
[2021-03-08] MEDS: LACTULOSE 20 GM/30 ML ORAL LIQD PO SCH ×3 (05:08→23:22)
[2021-03-08 08:44] LABS: Basophils % (Auto) 0.5 % (0.0-1.8); Eosinophils % (Auto) 1.1 % (0.0-4.3); Hematocrit 22.4 % (35.5-45.6); Hemoglobin 7.5 gm/dl (11.8-15.2); Lymphocytes # (Auto) 0.5 K/mm3 (1.2-5.4); Lymphocytes % (Auto) 17.4 % (13.4-35.0); Mean Corpuscular HGB Conc 34 % (32-34); Mean Corpuscular Volume 93 fl (84-94); Monocytes # (Auto) 0.4 K/mm3 (0.0-0.8); Monocytes % (Auto) 14.8 % (0.0-7.3); Red Cell Distribution Width 17.3 % (13.2-15.2)
[2021-03-08 08:51] LABS: Platelet Count 82 K/mm3 (140-440)
--- NOTE | 2021-03-08 08:54 | Progress Note ---
Assessment and Plan Assessment and plan: 55 YO Male with ESRD on HD, Noncompliance with outpatient dialysis, Anemia, HBV, Chronic Liver Disease, Cirrhosis complicated by Esophageal Varices, HTN, Debility, DM presents to ED with confusion with diminished cognition. Patient family report the patient was "not acting like himself" and found to have worsening confusion over the past 2 days. In the ER the patient was found to have hepatic encephalopathy complicated by diminished cognition, end-stage renal disease in need of urgent dialysis, as well as uncontrolled diabetes, and acidosis. Nephrology team consulted in ED and patient was then admitted for further evaluation and Mx. A/p -- Hepatic encephalopathy due to hepatic cirrhosis cont lactulose, Neuro check, seizure precaution, aspiration precaution, fall precautions, continue to monitor. -- End stage renal disease Nephrology team consulted, strict I's/O, monitor urine output every shift, dialysis as per renal team, avoid nephrotoxic agents. --Metabolic Acidosis Nephrology team consulted, dialysis as per renal team. --Hyponatremia Monitor BMP, monitor fluid balance. -- Hyperammonemia Continue lactulose --Diabetes mellitus with hyperglycemia Consistent carb diet, SSI -- hyperkalemia, Improvement with dialysis --Ascitis, s/p paracentesis drained 6.2l of ascitic fluid --Sacral wound, cont wound care -- Moderate Protein Calorie Malnutrition, nutrition consulted --Noncompliance, counseled for medication compliance --DVT Px, SCD --DNR code status --Disposition: needs placement, CM waiting for placement Daily clinical course: 02/19: Resume dialysis will adjust insulin for better coverage. Very poor progn osis considering poor medical compliance. Agree with hospice recommendation. Will obtain wound care to continue to manage. Monitor anemia as patient was pretty anemic during the last hospitalization. Required transfusion. 02/20: Continues to undergo dialysis no change in mental status noted. Tolerating medications. Blood sugar mildly elevated adjusted insulin yesterday when awake for the patient received a dose today and if still elevated will adjust. Again case management is working on discharge plan for this patient as he is pending placement 02/21 patient complains of right hip pain. He said he fell few weeks ago and is concerned about another fracture. He had a fracture about 8 weeks ago and had surgery. Will obtain X ray right hip. Patient pending placement. 02/22 Patient seen in Dialysis Unit. He states hip pain improved. No other complaints. Right hip X ray done yesterday report read may be healing fracture or acute fracture. Will discuss with Orthopedic Surgeon Patient pending placement 02/23 Less hip pain. Today complains of generalized itching. Will start Benadryl po prn. Orthopedic consulted to evaluate right hip. Patient pending placement 02/24 Less hip pain. Generalized itching now resolved. Orthopedic consulted to evaluate right hip. He complains of sleeplessness. Will give Ambien prn Patient pending placement 02/25 Patient requested DNR status yesterday. I discussed with him and he signed forms. He also complains of worsening abdominal distension and requested t apping, Will order paracentesis. Right hip evaluated by Dr. Trivedi and conservative management recommended. 02/26: Plan for paracentesis today. Need to set up dialysis as outpatient. manager image working on discharge planning. 02/27: Patient did not sign the consent for paracentesis yesterday so paracentesis was done today and aspirated 6.2L ascitic fluid. Patient refusing medication per RN. Getting dialysis. Patient noted slightly altered today, will place NG tube remains altered and keep refusing oral meds, order for ammonia level and will cont lactulose. 02/28: Patient appears much more calm and cooperative today. He stated that he has been refusing procedure and medication as he believes he was not in the right state of his mind. Patient acknowledges the importance of being compliant and he promises that he will take the medications as he will be given. Discharge planning per case management as patient would need outpatient dialysis center set up and personal senior care set up. 03/01/21: Patient has custodial setting but according to case monitor no available RN to accept the patient till Thursday. Continue supportive care. Discharge pending on placement. 03/02/21 -03/04/21: Discharge pending on placement, continue to monitor clinically. Continue current management and plan and supportive care. Patient need SNF placement. 03/05/2021; Awaiting SNF placement for discharge. Prognosis is very poor. Patient is nonresponsive. I try to reach to his son over the phone but could not get in touch. Patient is appropriate for hospice care. 03/06/2021; patient is awaiting SNF placement. Patient was alert and oriented. No confusion. Patient is stable to be discharged back to SNF. 03/07/2021; patient has hemoglobin of 6.8 this morning. A unit of blood ordered. Will monitor H&H. Nephrology is following for dialysis. 03/08/2021; patient's hemoglobin was 6.8 yesterday and transfused a unit of blood. I ordered yesterday to do posttransfusion H&H and was not done. CBC was ordered to be done this morning but was not done. COVID-19 test was done on 03/06 and positive. Nephrology is following the patient for his dialysis. Plan is to discharge him to SNF. Will follow with case management because patient is Covid positive. History Interval history: Patient was seen and evaluated this morning Patient was alert and oriented Complaining pain at his [facility] Hospitalist Physical - Physical exam Narrative exam: Not in cardiopulmonary distress. The patient appeared well nourished and normally developed. Vital signs as documented. Head exam is unremarkable. No scleral icterus . Neck is without jugular venous distension, thyromegaly, or carotid bruits. Lungs are clear to auscultation. Cardiac exam reveals regular rate and Rhythm. Abdominal exam reveals normal bowel sounds, nontender, no organomegaly. Extremities right BKA. 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 Sacral decubitus ulcer. - Constitutional Vitals: Temp Pulse Resp BP Pulse Ox 98.5 F 83 18 152/54 99 03/08/21 04:31 03/08/21 04:31 03/08/21 04:31 03/08/21 04:31 03/08/21 04:31 General appearance: Present: no acute distress, well-nourished Results - Labs CBC & Chem 7: 03/08/21 07:06 03/07/21 05:23 Labs: Laboratory Last Values WBC 2.5 K/mm3 (4.5-11.0) L 03/07/21 05:23 RBC 2.09 M/mm3 (3.65-5.03) L 03/07/21 05:23 Hgb 6.8 gm/dl (11.8-15.2) L 03/07/21 05:23 Hct 19.9 % (35.5-45.6) L* 03/07/21 05:23 MCV 95 fl (84-94) H 03/07/21 05:23 MCH 32 pg (28-32) 03/07/21 05:23 MCHC 34 % (32-34) 03/07/21 05:23 RDW 16.0 % (13.2-15.2) H 03/07/21 05:23 Plt Count 86 K/mm3 (140-440) L 03/07/21 05:23 Lymph % (Auto) 13.2 % (13.4-35.0) L 02/28/21 12:37 [place] % (Auto) 14.8 % (0.0-7.3) H 03/08/21 07:06 Eos % (Auto) 1.1 % (0.0-4.3) 03/08/21 07:06 Baso % (Auto) 0.7 % (0.0-1.8) 02/28/21 12:37 Lymph # (Auto) 0.5 K/mm3 (1.2-5.4) L 02/28/21 12:37 [place] # (Auto) 0.4 K/mm3 (0.0-0.8) 03/08/21 07:06 Eos # (Auto) 0.0 K/mm3 (0.0-0.4) 03/08/21 07:06 Baso # (Auto) 0.0 K/mm3 (0.0-0.1) 03/08/21 07:06 Add Manual Diff Complete 03/07/21 05:23 Total Counted 100 03/07/21 05:23 Seg Neutrophils % 66.2 % (40.0-70.0) 03/08/21 07:06 Seg Neuts % (Manual) 78.0 % (40.0-70.0) H 03/07/21 05:23 Lymphocytes % (Manual) 13.0 % (13.4-35.0) L 03/07/21 05:23 Monocytes % (Manual) 9.0 % (0.0-7.3) H 03/07/21 05:23 Nucleated RBC % Not Reportable 03/07/21 05:23 Seg Neutrophils # 1.8 K/mm3 (1.8-7.7) 03/08/21 07:06 Seg Neutrophils # Man 2.0 K/mm3 (1.8-7.7) 03/07/21 05:23 Band Neutrophils # 0.0 K/mm3 03/07/21 05:23 Lymphocytes # (Manual) 0.3 K/mm3 (1.2-5.4) L 03/07/21 05:23 Abs React Lymphs (Man) 0.0 K/mm3 03/07/21 05:23 Monocytes # (Manual) 0.2 K/mm3 (0.0-0.8) 03/07/21 05:23 Eosinophils # (Manual) 0.0 K/mm3 (0.0-0.4) 03/07/21 05:23 Basophils # (Manual) 0.0 K/mm3 (0.0-0.1) 03/07/21 05:23 Metamyelocytes # 0.0 K/mm3 03/07/21 05:23 Myelocytes # 0.0 K/mm3 03/07/21 05:23 Promyelocytes # 0.0 K/mm3 03/07/21 05:23 Blast Cells # 0.0 K/mm3 03/07/21 05:23 WBC Morphology Not Reportable 03/07/21 05:23 Hypersegmented Neuts Not Reportable 03/07/21 05:23 Hyposegmented Neuts Not Reportable 03/07/21 05:23 Hypogranular Neuts Not Reportable 03/07/21 05:23 Smudge Cells Not Reportable 03/07/21 05:23 Toxic Granulation Not Reportable 03/07/21 05:23 Toxic Vacuolation Not Reportable 03/07/21 05:23 Dohle Bodies Not Reportable 03/07/21 05:23 Pelger-Huet Anomaly Not Reportable 03/07/21 05:23 Cosme Rods Not Reportable 03/07/21 05:23 Platelet Estimate Consistent w auto 03/07/21 05:23 Clumped Platelets Not Reportable 03/07/21 05:23 Plt Clumps, EDTA Not Reportable 03/07/21 05:23 Large Platelets Not Reportable 03/07/21 05:23 Giant Platelets Not Reportable 03/07/21 05:23 Platelet Satelliting Not Reportable 03/07/21 05:23 Plt Morphology Comment Not Reportable 03/07/21 05:23 RBC Morphology Not Reportable 03/07/21 05:23 Dimorphic RBCs Not Reportable 03/07/21 05:23 Polychromasia Not Reportable 03/07/21 05:23 Hypochromasia Not Reportable 03/07/21 05:23 Poikilocytosis Not Reportable 03/07/21 05:23 Anisocytosis Few 03/07/21 05:23 Microcytosis Not Reportable 03/07/21 05:23 Macrocytosis Not Reportable 03/07/21 05:23 Spherocytes Not Reportable 03/07/21 05:23 Pappenheimer Bodies Not Reportable 03/07/21 05:23 Sickle Cells Not Reportable 03/07/21 05:23 Target Cells Not Reportable 03/07/21 05:23 Tear Drop Cells Not Reportable 03/07/21 05:23 Ovalocytes Not Reportable 03/07/21 05:23 Helmet Cells Not Reportable 03/07/21 05:23 [place] Bodies Not Reportable 03/07/21 05:23 [place] Rings Not Reportable 03/07/21 05:23 [place] Cells Not Reportable 03/07/21 05:23 Bite Cells Not Reportable 03/07/21 05:23 Crenated Cell Not Reportable 03/07/21 05:23 Elliptocytes Not Reportable 03/07/21 05:23 Acanthocytes (Spur) Not Reportable 03/07/21 05:23 Rouleaux Not Reportable 03/07/21 05:23 Hemoglobin C Crystals Not Reportable 03/07/21 05:23 Schistocytes Not Reportable 03/07/21 05:23 Malaria parasites Not Reportable 03/07/21 05:23 Samir Bodies Not Reportable 03/07/21 05:23 Hem Pathologist Commnt No 03/07/21 05:23 PT 13.7 Sec. (12.2-14.9) 02/26/21 04:33 INR 1.00 (0.87-1.13) 02/26/21 04:33 Sodium 134 mmol/L (137-145) L 03/07/21 05:23 Potassium 3.8 mmol/L (3.6-5.0) 03/07/21 05:23 Chloride 93.6 mmol/L (98-107) L 03/07/21 05:23 Carbon Dioxide 31 mmol/L (22-30) H 03/07/21 05:23 Anion Gap 13 mmol/L 03/07/21 05:23 BUN 38 mg/dL (9-20) H 03/07/21 05:23 Creatinine 4.5 mg/dL (0.8-1.3) H 03/07/21 05:23 Estimated GFR 14 ml/min 03/07/21 05:23 BUN/Creatinine Ratio 8 % 03/07/21 05:23 Glucose 284 mg/dL (75-100) H 03/07/21 05:23 POC Glucose 378 mg/dL (70-105) H 03/08/21 07:40 Hemoglobin A1c 7.4 % (4-6) H 02/26/21 04:33 Calcium 8.4 mg/dL (8.4-10.2) 03/07/21 05:23 Magnesium 2.10 mg/dL (1.7-2.3) 02/17/21 02:24 Total Bilirubin 0.60 mg/dL (0.1-1.2) 02/17/21 02:24 AST 18 units/L (5-40) 02/17/21 02:24 ALT 19 units/L (7-56) 02/17/21 02:24 Alkaline Phosphatase 171 units/L (35-129) H 02/17/21 02:24 Ammonia 138.0 umol/L (25-60) H 02/28/21 12:37 Total Creatine Kinase 86 units/L (55-170) 02/17/21 02:24 Total Protein 6.2 g/dL (6.3-8.2) L 02/17/21 02:24 Albumin 3.0 g/dL (3.9-5) L 02/17/21 02:24 Albumin/Globulin Ratio 0.9 % 02/17/21 02:24 TSH 0.986 mlU/mL (0.270-4.200) 02/17/21 02:24 Urine Color Yellow (Yellow) 02/17/21 Unknown Urine Turbidity Clear (Clear) 02/17/21 Unknown Urine pH 6.0 (5.0-7.0) 02/17/21 Unknown Ur Specific Bee 1.012 (1.003-1.030) 02/17/21 Unknown Urine Protein 100 mg/dl mg/dL (Negative) 02/17/21 Unknown Urine Glucose (UA) >=500 mg/dL (Negative) 02/17/21 Unknown Urine Ketones Neg mg/dL (Negative) 02/17/21 Unknown Urine Blood Neg (Negative) 02/17/21 Unknown Urine Nitrite Neg (Negative) 02/17/21 Unknown Urine Bilirubin Neg (Negative) 02/17/21 Unknown Urine Urobilinogen < 2.0 mg/dL (<2.0) 02/17/21 Unknown Ur Leukocyte Esterase Neg (Negative) 02/17/21 Unknown Urine WBC (Auto) 2.0 /HPF (0.0-6.0) 02/17/21 Unknown Urine RBC (Auto) 2.0 /HPF (0.0-6.0) 02/17/21 Unknown U Epithel Cells (Auto) < 1.0 /HPF (0-13.0) 02/17/21 Unknown Urine Bacteria (Auto) 1+ /HPF (Negative) 02/17/21 Unknown Salicylates < 0.3 mg/dL (2.8-20.0) L 02/17/21 02:24 Acetaminophen 5.0 ug/mL (10.0-30.0) L 02/17/21 02:24 Coronavirus (PCR) Positive (Negative) A 03/06/21 Unknown Hepatitis A IgM Ab Non-reactive (NonReactive) 02/28/21 12:37 Hep Bs Antigen Non-reactive (Negative) 02/28/21 12:37 Hep B Core IgM Ab Non-reactive (NonReactive) 02/28/21 12:37 Hepatitis C Antibody Non-reactive (NonReactive) 02/28/21 12:37 Blood Type A POSITIVE 03/07/21 06:31 Antibody Screen Negative 03/07/21 06:31 Crossmatch See Detail 03/07/21 06:31 Sr/IV: Voiding Method Incontinent Active Medications - Current Medications Current Medications: Generic Name Dose Route Start Last Admin Trade Name Freq PRN Reason Stop Dose Admin Acetaminophen 650 mg 02/18/21 22:38 03/07/21 14:38 Acetaminophen 325 Mg Tab PO 650 mg Q4H PRN Administration Pain MILD(1-3)/Fever >100.5/MOLINA Albuterol 2.5 mg 02/18/21 22:38 Albuterol 2.5 Mg/3 Ml Nebu IH Q3HRT PRN Shortness Of Breath Allopurinol 100 mg 02/20/21 10:00 03/07/21 10:20 Allopurinol 100 Mg Tab PO 100 mg QDAY LEYLA Administration Calcium Acetate 1,334 mg 02/20/21 08:30 03/07/21 17:57 Calcium Acetate 667 Mg Cap PO 1,334 mg TIDWM LEYLA Administration Dextrose 0 ml 02/18/21 23:00 02/25/21 16:56 Dextrose 50% In Water (25gm) 50 Ml Syringe IV 50 ml Q30MIN PRN Administration Hypoglycemia Protocol Diphenhydramine HCl 25 mg 02/23/21 09:10 03/01/21 10:30 Diphenhydramine 25 Mg Cap PO 25 mg BID PRN Administration Itching Famotidine 20 mg 02/19/21 10:00 03/07/21 10:19 Famotidine 20 Mg Tab PO 20 mg QAM LEYLA Administration Hydralazine HCl 10 mg 02/18/21 22:56 Hydralazine 20 Mg/1 Ml Inj IV Q6H PRN htn Sodium Chloride 100 mls @ 999 mls/hr 02/19/21 09:06 Nacl 0.9% IV OLIVIA PRN Hypotension Insulin Human Lispro 0 unit 02/19/21 07:30 03/07/21 22:54 Insulin Lispro 100 Unit/Ml SUB-Q 6 unit ACHS LEYLA Administration Protocol Lactulose 20 gm 02/24/21 14:00 03/08/21 05:08 Lactulose 20 Gm/30 Ml Oral Liqd PO Not Given Q8HR COUNTS INCLUDE 234 BEDS AT [facility] Ondansetron HCl 4 mg 02/18/21 22:38 02/28/21 12:32 Ondansetron 4 Mg/2 Ml Inj IV 4 mg Q8H PRN Administration Nausea And Vomiting Polyethylene Glycol 17 gm 02/24/21 12:08 02/24/21 12:47 Polyethylene Glycol 3350 17 Gm Powder PO 17 gm QDAY PRN Administration Constipation Propranolol HCl 20 mg 02/20/21 10:00 03/07/21 22:54 Propranolol 10 Mg Tab PO 20 mg BID LEYLA Administration Sodium Chloride 10 ml 02/19/21 10:00 03/07/21 22:55 Sodium Chloride 0.9% 10 Ml Flush Syringe IV 10 ml BID LEYLA Administration Sodium Chloride 10 ml 02/18/21 22:38 Sodium Chloride 0.9% 10 Ml Flush Syringe IV PRN PRN LINE FLUSH Tramadol HCl 50 mg 02/24/21 13:20 02/25/21 10:17 Tramadol 50 Mg Tab PO 50 mg Q6H PRN Administration Pain, Moderate (4-6) Zolpidem Tartrate 5 mg 02/24/21 09:54 03/08/21 00:42 Zolpidem 5 Mg Tab PO 5 mg QHS PRN Administration Sleep Nutrition/Malnutrition Assess - Dietary Evaluation Nutrition/Malnutrition Findings: Nutrition Notes Start: 02/19/21 10:48 Freq: Status: Active Protocol: Document 03/07/21 16:43 AKSHAT (Rec: 03/07/21 16:45 [facility] [id number]) Nutrition Notes Initial or Follow up Brief Note Current Diagnosis CKD (stage V CKD),Diabetes Other Pertinent Diagnosis COVID-19 (+), hepatic encephalopathy, ascites Subjective/Other Information Unable to reach pt via phone. Pt with hx of medication/ medical noncompliance. He has consumed <25% of meals since last assessment. Nutrition Intervention Follow-Up By: 03/10/21 Additional Comments F/U: intakes
[2021-03-08] MEDS: FAMOTIDINE 20 MG TAB PO SCH (09:54)
[2021-03-08] MEDS: INSULIN LISPRO 100 UNIT/ML SUB-Q SCH ×4 (09:54→23:22)
[2021-03-08] MEDS: allopurinoL 100 MG TAB PO SCH (09:54)
[2021-03-08] MEDS: CALCIUM ACETATE 667 MG CAP PO SCH ×3 (09:54→18:05)
[2021-03-08] MEDS: PROPRANOLOL 10 MG TAB PO SCH ×2 (09:54→23:24)
--- NOTE | 2021-03-08 13:45 | Progress Note ---
Assessment and Plan 1. ESRD: Patient is on maintenance hemodialysis three times a week, MWF schedule. Meds dosage based on GFR. Missed HD 02/18. Hemodialysis: 02/19, 02/20, 02/22, 02/25, 02/27, 03/01, 03/04, 03/06. 2. FEN: Hyperkalemia, improved. Monitor lytes and volume status. 3. Anemia, POA: 2/2 ESRD and Liver disease. Epogen with HD. PRBC as needed. 4. Cirrhosis with h/o hepatic encephalopathy: Lactulose. Monitor. 5. DM type 2 uncontrolled: SSI. Monitor. 6. Thrombocytopenia, POA: 7. Hypertension: Monitor BP. Adjust meds as appropriate. Await placement. Subjective: Patient was seen and examined at the bedside. General Appearance: General appearance: well-developed, appears stated age, not in distress HEENT: ATNC, pupils equal Neck: trachea midline Respiratory: ctab Heart: regular, S1S2, no murmur Abdomen: soft, bowel sounds heard, not tender Integumentary: no rash, warm and dry Neurologic: lethargic, non-verbal Ext: no edema, R BKA Hemodialysis access: R arm AVF Subjective Date of service: 03/08/21 Objective - Vital Signs Vital signs: Vital Signs - 12hr 03/08/21 03/08/21 04:31 12:46 Temperature 98.5 F 98.2 F Pulse Rate 83 80 Respiratory 18 20 Rate Blood Pressure 152/54 136/42 O2 Sat by Pulse 99 97 Oximetry - Lab 03/08/21 07:06 03/07/21 05:23 Most recent lab results Calcium 8.4 mg/dL (8.4-10.2) 03/07/21 05:23 Magnesium 2.10 mg/dL (1.7-2.3) 02/17/21 02:24 Medications & Allergies - Medications Allergies/Adverse Reactions: Allergies No Known Allergies Allergy (Verified 02/16/21 18:26) Home Medications: Home Medications Medication Instructions Recorded Confirmed Last Taken Type Calcium Acetate [Phoslo] 1,334 mg PO TIDWM #90 capsule 03/01/21 Unknown Rx Famotidine [Pepcid] 20 mg PO QAM #30 tablet 03/01/21 Unknown Rx Lactulose [Cephulac] 20 gm PO Q8HR 30 Days 03/01/21 Unknown Rx Lispro Insulin [HumaLOG] See Protocol SQ ACHS 30 Days 03/01/21 Unknown Rx allopurinoL [Zyloprim] 100 mg PO QDAY #30 tablet 03/01/21 Unknown Rx propranoloL [Inderal] 20 mg PO BID #60 tablet 03/01/21 Unknown Rx Active Medications: Generic Name Dose Route Start Last Admin Trade Name Freq PRN Reason Stop Dose Admin Acetaminophen 650 mg 02/18/21 22:38 03/07/21 14:38 Acetaminophen 325 Mg Tab PO 650 mg Q4H PRN Administration Pain MILD(1-3)/Fever >100.5/MOLINA Albuterol 2.5 mg 02/18/21 22:38 Albuterol 2.5 Mg/3 Ml Nebu IH Q3HRT PRN Shortness Of Breath Allopurinol 100 mg 02/20/21 10:00 03/08/21 09:54 Allopurinol 100 Mg Tab PO 100 mg QDAY LEYLA Administration Calcium Acetate 1,334 mg 02/20/21 08:30 03/08/21 13:40 Calcium Acetate 667 Mg Cap PO 1,334 mg TIDWM LEYLA Administration Dextrose 0 ml 02/18/21 23:00 02/25/21 16:56 Dextrose 50% In Water (25gm) 50 Ml Syringe IV 50 ml Q30MIN PRN Administration Hypoglycemia Protocol Diphenhydramine HCl 25 mg 02/23/21 09:10 03/01/21 10:30 Diphenhydramine 25 Mg Cap PO 25 mg BID PRN Administration Itching Famotidine 20 mg 02/19/21 10:00 03/08/21 09:54 Famotidine 20 Mg Tab PO 20 mg QAM LEYLA Administration Hydralazine HCl 10 mg 02/18/21 22:56 Hydralazine 20 Mg/1 Ml Inj IV Q6H PRN htn Sodium Chloride 100 mls @ 999 mls/hr 02/19/21 09:06 Nacl 0.9% IV OLIVIA PRN Hypotension Insulin Human Lispro 0 unit 02/19/21 07:30 03/08/21 13:40 Insulin Lispro 100 Unit/Ml SUB-Q 8 unit ACHS LEYLA Administration Protocol Lactulose 20 gm 02/24/21 14:00 03/08/21 13:40 Lactulose 20 Gm/30 Ml Oral Liqd PO 20 gm Q8HR LEYLA Administration Ondansetron HCl 4 mg 02/18/21 22:38 02/28/21 12:32 Ondansetron 4 Mg/2 Ml Inj IV 4 mg Q8H PRN Administration Nausea And Vomiting Polyethylene Glycol 17 gm 02/24/21 12:08 02/24/21 12:47 Polyethylene Glycol 3350 17 Gm Powder PO 17 gm QDAY PRN Administration Constipation Propranolol HCl 20 mg 02/20/21 10:00 03/08/21 09:54 Propranolol 10 Mg Tab PO 20 mg BID LEYLA Administration Sodium Chloride 10 ml 02/19/21 10:00 03/08/21 09:55 Sodium Chloride 0.9% 10 Ml Flush Syringe IV 10 ml BID LEYLA Administration Sodium Chloride 10 ml 02/18/21 22:38 Sodium Chloride 0.9% 10 Ml Flush Syringe IV PRN PRN LINE FLUSH Tramadol HCl 50 mg 02/24/21 13:20 02/25/21 10:17 Tramadol 50 Mg Tab PO 50 mg Q6H PRN Administration Pain, Moderate (4-6) Zolpidem Tartrate 5 mg 02/24/21 09:54 03/08/21 00:42 Zolpidem 5 Mg Tab PO 5 mg QHS PRN Administration Sleep
[2021-03-08] MEDS: EPOETIN ALFA-EPBX 20,000 UNIT/1 ML VIAL SUB-Q PRN (21:10)
[2021-03-09] MEDS: LACTULOSE 20 GM/30 ML ORAL LIQD PO SCH ×4 (06:25→23:26)
[2021-03-09] MEDS: INSULIN LISPRO 100 UNIT/ML SUB-Q SCH ×4 (07:30→23:25)
--- NOTE | 2021-03-09 07:50 | Progress Note ---
Assessment and Plan Assessment and plan: 55 YO Male with ESRD on HD, Noncompliance with outpatient dialysis, Anemia, HBV, Chronic Liver Disease, Cirrhosis complicated by Esophageal Varices, HTN, Debility, DM presents to ED with confusion with diminished cognition. Patient family report the patient was "not acting like himself" and found to have worsening confusion over the past 2 days. In the ER the patient was found to have hepatic encephalopathy complicated by diminished cognition, end-stage renal disease in need of urgent dialysis, as well as uncontrolled diabetes, and acidosis. Nephrology team consulted in ED and patient was then admitted for further evaluation and Mx. A/p -- Hepatic encephalopathy due to hepatic cirrhosis cont lactulose, Neuro check, seizure precaution, aspiration precaution, fall precautions, continue to monitor. -- End stage renal disease Nephrology team consulted, strict I's/O, monitor urine output every shift, dialysis as per renal team, avoid nephrotoxic agents. --Metabolic Acidosis Nephrology team consulted, dialysis as per renal team. --Hyponatremia Monitor BMP, monitor fluid balance. -- Hyperammonemia Continue lactulose --Diabetes mellitus with hyperglycemia Consistent carb diet, SSI -- hyperkalemia, Improvement with dialysis --Ascitis, s/p paracentesis drained 6.2l of ascitic fluid --Sacral wound, cont wound care -- Moderate Protein Calorie Malnutrition, nutrition consulted --Noncompliance, counseled for medication compliance --DVT Px, SCD --DNR code status --Disposition: needs placement, CM waiting for placement Daily clinical course: 02/19: Resume dialysis will adjust insulin for better coverage. Very poor progn osis considering poor medical compliance. Agree with hospice recommendation. Will obtain wound care to continue to manage. Monitor anemia as patient was pretty anemic during the last hospitalization. Required transfusion. 02/20: Continues to undergo dialysis no change in mental status noted. Tolerating medications. Blood sugar mildly elevated adjusted insulin yesterday when awake for the patient received a dose today and if still elevated will adjust. Again case management is working on discharge plan for this patient as he is pending placement 02/21 patient complains of right hip pain. He said he fell few weeks ago and is concerned about another fracture. He had a fracture about 8 weeks ago and had surgery. Will obtain X ray right hip. Patient pending placement. 02/22 Patient seen in Dialysis Unit. He states hip pain improved. No other complaints. Right hip X ray done yesterday report read may be healing fracture or acute fracture. Will discuss with Orthopedic Surgeon Patient pending placement 02/23 Less hip pain. Today complains of generalized itching. Will start Benadryl po prn. Orthopedic consulted to evaluate right hip. Patient pending placement 02/24 Less hip pain. Generalized itching now resolved. Orthopedic consulted to evaluate right hip. He complains of sleeplessness. Will give Ambien prn Patient pending placement 02/25 Patient requested DNR status yesterday. I discussed with him and he signed forms. He also complains of worsening abdominal distension and requested t apping, Will order paracentesis. Right hip evaluated by Dr. Trivedi and conservative management recommended. 02/26: Plan for paracentesis today. Need to set up dialysis as outpatient. track manager working on discharge planning. 02/27: Patient did not sign the consent for paracentesis yesterday so paracentesis was done today and aspirated 6.2L ascitic fluid. Patient refusing medication per RN. Getting dialysis. Patient noted slightly altered today, will place NG tube remains altered and keep refusing oral meds, order for ammonia level and will cont lactulose. 02/28: Patient appears much more calm and cooperative today. He stated that he has been refusing procedure and medication as he believes he was not in the right state of his mind. Patient acknowledges the importance of being compliant and he promises that he will take the medications as he will be given. Discharge planning per case management as patient would need outpatient dialysis center set up and personal jail set up. 03/01/21: Patient has [facility] setting but according to corrections caseworker no available RN to accept the patient till Thursday. Continue supportive care. Discharge pending on placement. 03/02/21 -03/04/21: Discharge pending on placement, continue to monitor clinically. Continue current management and plan and supportive care. Patient need SNF placement. 03/05/2021; Awaiting SNF placement for discharge. Prognosis is very poor. Patient is nonresponsive. I try to reach to his son over the phone but could not get in touch. Patient is appropriate for hospice care. 03/06/2021; patient is awaiting SNF placement. Patient was alert and oriented. No confusion. Patient is stable to be discharged back to SNF. 03/07/2021; patient has hemoglobin of 6.8 this morning. A unit of blood ordered. Will monitor H&H. Nephrology is following for dialysis. 03/08/2021; patient's hemoglobin was 6.8 yesterday and transfused a unit of blood. I ordered yesterday to do posttransfusion H&H and was not done. CBC was ordered to be done this morning but was not done. COVID-19 test was done on 03/06 and positive. Nephrology is following the patient for his dialysis. Plan is to discharge him to SNF. Will follow with case management because patient is Covid positive. 03/09/2021; patient's repeat Covid test on 03/09/2021 was positive. Patient is pending for SNF placement. History Interval history: Patient was seen and evaluated this morning Patient was alert and oriented Patient does have any complaints Hospitalist Physical - Physical exam Narrative exam: Not in cardiopulmonary distress. The patient appeared well nourished and normally developed. Vital signs as documented. Head exam is unremarkable. No scleral icterus . Neck is without jugular venous distension, thyromegaly, or carotid bruits. Lungs are clear to auscultation. Cardiac exam reveals regular rate and Rhythm. Abdominal exam reveals normal bowel sounds, nontender, no organomegaly. Extremities right BKA. GLOBE CHANGER: Patient was alert and oriented. Sacral decubitus ulcer. - Constitutional Vitals: Temp Pulse Resp BP Pulse Ox 98.3 F 81 17 135/52 100 03/08/21 21:30 03/08/21 23:24 03/08/21 22:00 03/08/21 23:24 03/08/21 22:00 General appearance: Present: no acute distress, well-nourished Results - Labs CBC & Chem 7: 03/08/21 07:06 03/07/21 05:23 Labs: Laboratory Last Values WBC 2.7 K/mm3 (4.5-11.0) L 03/08/21 07:06 RBC 2.40 M/mm3 (3.65-5.03) L 03/08/21 07:06 Hgb 7.5 gm/dl (11.8-15.2) L 03/08/21 07:06 Hct 22.4 % (35.5-45.6) L 03/08/21 07:06 MCV 93 fl (84-94) 03/08/21 07:06 MCH 32 pg (28-32) 03/08/21 07:06 MCHC 34 % (32-34) 03/08/21 07:06 RDW 17.3 % (13.2-15.2) H 03/08/21 07:06 Plt Count 82 K/mm3 (140-440) L 03/08/21 07:06 Lymph % (Auto) 17.4 % (13.4-35.0) 03/08/21 07:06 [place] % (Auto) 14.8 % (0.0-7.3) H 03/08/21 07:06 Eos % (Auto) 1.1 % (0.0-4.3) 03/08/21 07:06 Baso % (Auto) 0.5 % (0.0-1.8) 03/08/21 07:06 Lymph # (Auto) 0.5 K/mm3 (1.2-5.4) L 03/08/21 07:06 [place] # (Auto) 0.4 K/mm3 (0.0-0.8) 03/08/21 07:06 Eos # (Auto) 0.0 K/mm3 (0.0-0.4) 03/08/21 07:06 Baso # (Auto) 0.0 K/mm3 (0.0-0.1) 03/08/21 07:06 Add Manual Diff Complete 03/07/21 05:23 Total Counted 100 03/07/21 05:23 Seg Neutrophils % 66.2 % (40.0-70.0) 03/08/21 07:06 Seg Neuts % (Manual) 78.0 % (40.0-70.0) H 03/07/21 05:23 Lymphocytes % (Manual) 13.0 % (13.4-35.0) L 03/07/21 05:23 Monocytes % (Manual) 9.0 % (0.0-7.3) H 03/07/21 05:23 Nucleated RBC % Not Reportable 03/07/21 05:23 Seg Neutrophils # 1.8 K/mm3 (1.8-7.7) 03/08/21 07:06 Seg Neutrophils # Man 2.0 K/mm3 (1.8-7.7) 03/07/21 05:23 Band Neutrophils # 0.0 K/mm3 03/07/21 05:23 Lymphocytes # (Manual) 0.3 K/mm3 (1.2-5.4) L 03/07/21 05:23 Abs React Lymphs (Man) 0.0 K/mm3 03/07/21 05:23 Monocytes # (Manual) 0.2 K/mm3 (0.0-0.8) 03/07/21 05:23 Eosinophils # (Manual) 0.0 K/mm3 (0.0-0.4) 03/07/21 05:23 Basophils # (Manual) 0.0 K/mm3 (0.0-0.1) 03/07/21 05:23 Metamyelocytes # 0.0 K/mm3 03/07/21 05:23 Myelocytes # 0.0 K/mm3 03/07/21 05:23 Promyelocytes # 0.0 K/mm3 03/07/21 05:23 Blast Cells # 0.0 K/mm3 03/07/21 05:23 WBC Morphology Not Reportable 03/07/21 05:23 Hypersegmented Neuts Not Reportable 03/07/21 05:23 Hyposegmented Neuts Not Reportable 03/07/21 05:23 Hypogranular Neuts Not Reportable 03/07/21 05:23 Smudge Cells Not Reportable 03/07/21 05:23 Toxic Granulation Not Reportable 03/07/21 05:23 Toxic Vacuolation Not Reportable 03/07/21 05:23 Dohle Bodies Not Reportable 03/07/21 05:23 Pelger-Huet Anomaly Not Reportable 03/07/21 05:23 Cosme Rods Not Reportable 03/07/21 05:23 Platelet Estimate Consistent w auto 03/07/21 05:23 Clumped Platelets Not Reportable 03/07/21 05:23 Plt Clumps, EDTA Not Reportable 03/07/21 05:23 Large Platelets Not Reportable 03/07/21 05:23 Giant Platelets Not Reportable 03/07/21 05:23 Platelet Satelliting Not Reportable 03/07/21 05:23 Plt Morphology Comment Not Reportable 03/07/21 05:23 RBC Morphology Not Reportable 03/07/21 05:23 Dimorphic RBCs Not Reportable 03/07/21 05:23 Polychromasia Not Reportable 03/07/21 05:23 Hypochromasia Not Reportable 03/07/21 05:23 Poikilocytosis Not Reportable 03/07/21 05:23 Anisocytosis Few 03/07/21 05:23 Microcytosis Not Reportable 03/07/21 05:23 Macrocytosis Not Reportable 03/07/21 05:23 Spherocytes Not Reportable 03/07/21 05:23 Pappenheimer Bodies Not Reportable 03/07/21 05:23 Sickle Cells Not Reportable 03/07/21 05:23 Target Cells Not Reportable 03/07/21 05:23 Tear Drop Cells Not Reportable 03/07/21 05:23 Ovalocytes Not Reportable 03/07/21 05:23 Helmet Cells Not Reportable 03/07/21 05:23 Mercado-Ackley Bodies Not Reportable 03/07/21 05:23 Belt Rings Not Reportable 03/07/21 05:23 [place] Cells Not Reportable 03/07/21 05:23 Bite Cells Not Reportable 03/07/21 05:23 Crenated Cell Not Reportable 03/07/21 05:23 Elliptocytes Not Reportable 03/07/21 05:23 Acanthocytes (Spur) Not Reportable 03/07/21 05:23 Rouleaux Not Reportable 03/07/21 05:23 Hemoglobin C Crystals Not Reportable 03/07/21 05:23 Schistocytes Not Reportable 03/07/21 05:23 Malaria parasites Not Reportable 03/07/21 05:23 Samir Bodies Not Reportable 03/07/21 05:23 Hem Pathologist Commnt No 03/07/21 05:23 PT 13.7 Sec. (12.2-14.9) 02/26/21 04:33 INR 1.00 (0.87-1.13) 02/26/21 04:33 Sodium 134 mmol/L (137-145) L 03/07/21 05:23 Potassium 3.8 mmol/L (3.6-5.0) 03/07/21 05:23 Chloride 93.6 mmol/L (98-107) L 03/07/21 05:23 Carbon Dioxide 31 mmol/L (22-30) H 03/07/21 05:23 Anion Gap 13 mmol/L 03/07/21 05:23 BUN 38 mg/dL (9-20) H 03/07/21 05:23 Creatinine 4.5 mg/dL (0.8-1.3) H 03/07/21 05:23 Estimated GFR 14 ml/min 03/07/21 05:23 BUN/Creatinine Ratio 8 % 03/07/21 05:23 Glucose 284 mg/dL (75-100) H 03/07/21 05:23 POC Glucose 376 mg/dL (70-105) H 03/09/21 07:35 Hemoglobin A1c 7.4 % (4-6) H 02/26/21 04:33 Calcium 8.4 mg/dL (8.4-10.2) 03/07/21 05:23 Magnesium 2.10 mg/dL (1.7-2.3) 02/17/21 02:24 Total Bilirubin 0.60 mg/dL (0.1-1.2) 02/17/21 02:24 AST 18 units/L (5-40) 02/17/21 02:24 ALT 19 units/L (7-56) 02/17/21 02:24 Alkaline Phosphatase 171 units/L (35-129) H 02/17/21 02:24 Ammonia 138.0 umol/L (25-60) H 02/28/21 12:37 Total Creatine Kinase 86 units/L (55-170) 02/17/21 02:24 Total Protein 6.2 g/dL (6.3-8.2) L 02/17/21 02:24 Albumin 3.0 g/dL (3.9-5) L 02/17/21 02:24 Albumin/Globulin Ratio 0.9 % 02/17/21 02:24 TSH 0.986 mlU/mL (0.270-4.200) 02/17/21 02:24 Urine Color Yellow (Yellow) 02/17/21 Unknown Urine Turbidity Clear (Clear) 02/17/21 Unknown Urine pH 6.0 (5.0-7.0) 02/17/21 Unknown Ur Specific [place] 1.012 (1.003-1.030) 02/17/21 Unknown Urine Protein 100 mg/dl mg/dL (Negative) 02/17/21 Unknown Urine Glucose (UA) >=500 mg/dL (Negative) 02/17/21 Unknown Urine Ketones Neg mg/dL (Negative) 02/17/21 Unknown Urine Blood Neg (Negative) 02/17/21 Unknown Urine Nitrite Neg (Negative) 02/17/21 Unknown Urine Bilirubin Neg (Negative) 02/17/21 Unknown Urine Urobilinogen < 2.0 mg/dL (<2.0) 02/17/21 Unknown Ur Leukocyte Esterase Neg (Negative) 02/17/21 Unknown Urine WBC (Auto) 2.0 /HPF (0.0-6.0) 02/17/21 Unknown Urine RBC (Auto) 2.0 /HPF (0.0-6.0) 02/17/21 Unknown U Epithel Cells (Auto) < 1.0 /HPF (0-13.0) 02/17/21 Unknown Urine Bacteria (Auto) 1+ /HPF (Negative) 02/17/21 Unknown Salicylates < 0.3 mg/dL (2.8-20.0) L 02/17/21 02:24 Acetaminophen 5.0 ug/mL (10.0-30.0) L 02/17/21 02:24 Coronavirus (PCR) Positive (Negative) A 03/08/21 10:57 Hepatitis A IgM Ab Non-reactive (NonReactive) 02/28/21 12:37 Hep Bs Antigen Non-reactive (Negative) 02/28/21 12:37 Hep B Core IgM Ab Non-reactive (NonReactive) 02/28/21 12:37 Hepatitis C Antibody Non-reactive (NonReactive) 02/28/21 12:37 Blood Type A POSITIVE 03/07/21 06:31 Antibody Screen Negative 03/07/21 06:31 Crossmatch See Detail 03/07/21 06:31 Sr/IV: Voiding Method Urinal Active Medications - Current Medications Current Medications: Generic Name Dose Route Start Last Admin Trade Name Freq PRN Reason Stop Dose Admin Acetaminophen 650 mg 02/18/21 22:38 03/07/21 14:38 Acetaminophen 325 Mg Tab PO 650 mg Q4H PRN Administration Pain MILD(1-3)/Fever >100.5/MOLINA Albuterol 2.5 mg 02/18/21 22:38 Albuterol 2.5 Mg/3 Ml Nebu IH Q3HRT PRN Shortness Of Breath Allopurinol 100 mg 02/20/21 10:00 03/08/21 09:54 Allopurinol 100 Mg Tab PO 100 mg QDAY LEYLA Administration Calcium Acetate 1,334 mg 02/20/21 08:30 03/08/21 18:05 Calcium Acetate 667 Mg Cap PO 1,334 mg TIDWM LEYLA Administration Dextrose 0 ml 02/18/21 23:00 02/25/21 16:56 Dextrose 50% In Water (25gm) 50 Ml Syringe IV 50 ml Q30MIN PRN Administration Hypoglycemia Protocol Diphenhydramine HCl 25 mg 02/23/21 09:10 03/01/21 10:30 Diphenhydramine 25 Mg Cap PO 25 mg BID PRN Administration Itching Famotidine 20 mg 02/19/21 10:00 03/08/21 09:54 Famotidine 20 Mg Tab PO 20 mg QAM LEYLA Administration Hydralazine HCl 10 mg 02/18/21 22:56 Hydralazine 20 Mg/1 Ml Inj IV Q6H PRN htn Sodium Chloride 100 mls @ 999 mls/hr 02/19/21 09:06 Nacl 0.9% IV OLIVIA PRN Hypotension Insulin Human Lispro 0 unit 02/19/21 07:30 03/08/21 23:22 Insulin Lispro 100 Unit/Ml SUB-Q 4 unit ACHS LEYLA Administration Protocol Lactulose 20 gm 02/24/21 14:00 03/09/21 06:25 Lactulose 20 Gm/30 Ml Oral Liqd PO Not Given Q8HR [facility] Ondansetron HCl 4 mg 02/18/21 22:38 02/28/21 12:32 Ondansetron 4 Mg/2 Ml Inj IV 4 mg Q8H PRN Administration Nausea And Vomiting Polyethylene Glycol 17 gm 02/24/21 12:08 02/24/21 12:47 Polyethylene Glycol 3350 17 Gm Powder PO 17 gm QDAY PRN Administration Constipation Propranolol HCl 20 mg 02/20/21 10:00 03/08/21 23:24 Propranolol 10 Mg Tab PO 20 mg BID LEYLA Administration Sodium Chloride 10 ml 02/19/21 10:00 03/08/21 23:25 Sodium Chloride 0.9% 10 Ml Flush Syringe IV 10 ml BID LEYLA Administration Sodium Chloride 10 ml 02/18/21 22:38 Sodium Chloride 0.9% 10 Ml Flush Syringe IV PRN PRN LINE FLUSH Tramadol HCl 50 mg 02/24/21 13:20 02/25/21 10:17 Tramadol 50 Mg Tab PO 50 mg Q6H PRN Administration Pain, Moderate (4-6) Zolpidem Tartrate 5 mg 02/24/21 09:54 03/08/21 23:25 Zolpidem 5 Mg Tab PO 5 mg QHS PRN Administration Sleep Nutrition/Malnutrition Assess - Dietary Evaluation Nutrition/Malnutrition Findings: Nutrition Notes Start: 02/19/21 10:48 Freq: Status: Active Protocol: Document 03/07/21 16:43 [facility] (Rec: 03/07/21 16:45 [facility] [id number]) Nutrition Notes Initial or Follow up Brief Note Current Diagnosis CKD (stage V CKD),Diabetes Other Pertinent Diagnosis COVID-19 (+), hepatic encephalopathy, ascites Subjective/Other Information Unable to reach pt via phone. Pt with hx of medication/ medical noncompliance. He has consumed <25% of meals since last assessment. Nutrition Intervention Follow-Up By: 03/10/21 Additional Comments F/U: intakes
[2021-03-09] MEDS: CALCIUM ACETATE 667 MG CAP PO SCH ×3 (08:00→17:42)
[2021-03-09] MEDS: PROPRANOLOL 10 MG TAB PO SCH ×2 (10:28→23:24)
[2021-03-09] MEDS: FAMOTIDINE 20 MG TAB PO SCH (10:28)
[2021-03-09] MEDS: allopurinoL 100 MG TAB PO SCH (10:29)
--- NOTE | 2021-03-09 11:10 | Progress Note ---
Assessment and Plan 1. ESRD: Patient is on maintenance hemodialysis three times a week, MWF schedule. Meds dosage based on GFR. Missed HD 02/18. Hemodialysis: 02/19, 02/20, 02/22, 02/25, 02/27, 03/01, 03/04, 03/06, 03/08. 2. FEN: Hyperkalemia, improved. Monitor lytes and volume status. 3. Anemia, POA: 2/2 ESRD and Liver disease. Epogen with HD. PRBC as needed. 4. Cirrhosis with h/o hepatic encephalopathy: Lactulose. Monitor. 5. DM type 2 uncontrolled: SSI. Monitor. 6. Thrombocytopenia, POA: 7. Hypertension: Monitor BP. Adjust meds as appropriate. Await placement. Subjective: Patient was seen and examined at the bedside. General Appearance: General appearance: well-developed, appears stated age, not in distress HEENT: ATNC, pupils equal Neck: trachea midline Respiratory: ctab Heart: regular, S1S2, no murmur Abdomen: soft, bowel sounds heard, not tender Integumentary: no rash, warm and dry Neurologic: lethargic, non-verbal Ext: no edema, R BKA Hemodialysis access: R arm AVF Subjective Date of service: 03/09/21 Objective - Vital Signs Vital signs: Vital Signs - 12hr 03/08/21 23:24 Pulse Rate 81 Blood Pressure 135/52 - Lab 03/08/21 07:06 03/07/21 05:23 Most recent lab results Calcium 8.4 mg/dL (8.4-10.2) 03/07/21 05:23 Magnesium 2.10 mg/dL (1.7-2.3) 02/17/21 02:24 Medications & Allergies - Medications Allergies/Adverse Reactions: Allergies No Known Allergies Allergy (Verified 02/16/21 18:26) Home Medications: Home Medications Medication Instructions Recorded Confirmed Last Taken Type Calcium Acetate [Phoslo] 1,334 mg PO TIDWM #90 capsule 03/01/21 Unknown Rx Famotidine [Pepcid] 20 mg PO QAM #30 tablet 03/01/21 Unknown Rx Lactulose [Cephulac] 20 gm PO Q8HR 30 Days 03/01/21 Unknown Rx Lispro Insulin [HumaLOG] See Protocol SQ ACHS 30 Days 03/01/21 Unknown Rx allopurinoL [Zyloprim] 100 mg PO QDAY #30 tablet 03/01/21 Unknown Rx propranoloL [Inderal] 20 mg PO BID #60 tablet 03/01/21 Unknown Rx Active Medications: Generic Name Dose Route Start Last Admin Trade Name Freq PRN Reason Stop Dose Admin Acetaminophen 650 mg 02/18/21 22:38 03/07/21 14:38 Acetaminophen 325 Mg Tab PO 650 mg Q4H PRN Administration Pain MILD(1-3)/Fever >100.5/MOLINA Albuterol 2.5 mg 02/18/21 22:38 Albuterol 2.5 Mg/3 Ml Nebu IH Q3HRT PRN Shortness Of Breath Allopurinol 100 mg 02/20/21 10:00 03/09/21 10:29 Allopurinol 100 Mg Tab PO Not Given QDAY LEYLA Calcium Acetate 1,334 mg 02/20/21 08:30 03/09/21 08:00 Calcium Acetate 667 Mg Cap PO Not Given TIDWM LEYLA Dextrose 0 ml 02/18/21 23:00 02/25/21 16:56 Dextrose 50% In Water (25gm) 50 Ml Syringe IV 50 ml Q30MIN PRN Administration Hypoglycemia Protocol Diphenhydramine HCl 25 mg 02/23/21 09:10 03/01/21 10:30 Diphenhydramine 25 Mg Cap PO 25 mg BID PRN Administration Itching Famotidine 20 mg 02/19/21 10:00 03/09/21 10:28 Famotidine 20 Mg Tab PO Not Given QAM LEYLA Hydralazine HCl 10 mg 02/18/21 22:56 Hydralazine 20 Mg/1 Ml Inj IV Q6H PRN htn Sodium Chloride 100 mls @ 999 mls/hr 02/19/21 09:06 Nacl 0.9% IV OLIVIA PRN Hypotension Insulin Human Lispro 0 unit 02/19/21 07:30 03/09/21 07:30 Insulin Lispro 100 Unit/Ml SUB-Q 8 unit ACHS LEYLA Administration Protocol Lactulose 20 gm 02/24/21 14:00 03/09/21 06:25 Lactulose 20 Gm/30 Ml Oral Liqd PO Not Given Q8HR LEYLA Ondansetron HCl 4 mg 02/18/21 22:38 02/28/21 12:32 Ondansetron 4 Mg/2 Ml Inj IV 4 mg Q8H PRN Administration Nausea And Vomiting Polyethylene Glycol 17 gm 02/24/21 12:08 02/24/21 12:47 Polyethylene Glycol 3350 17 Gm Powder PO 17 gm QDAY PRN Administration Constipation Propranolol HCl 20 mg 02/20/21 10:00 03/09/21 10:28 Propranolol 10 Mg Tab PO Not Given BID LEYLA Sodium Chloride 10 ml 02/19/21 10:00 03/09/21 10:29 Sodium Chloride 0.9% 10 Ml Flush Syringe IV Not Given BID LEYLA Sodium Chloride 10 ml 02/18/21 22:38 Sodium Chloride 0.9% 10 Ml Flush Syringe IV PRN PRN LINE FLUSH Tramadol HCl 50 mg 02/24/21 13:20 02/25/21 10:17 Tramadol 50 Mg Tab PO 50 mg Q6H PRN Administration Pain, Moderate (4-6) Zolpidem Tartrate 5 mg 02/24/21 09:54 03/08/21 23:25 Zolpidem 5 Mg Tab PO 5 mg QHS PRN Administration Sleep
[2021-03-09] MEDS: ACETAMINOPHEN 325 MG TAB PO PRN (13:15)
[2021-03-09] MEDS: INSULIN GLARGINE 100 UNITS/ML SUB-Q SCH (23:25)
[2021-03-10] MEDS: LACTULOSE 20 GM/30 ML ORAL LIQD PO SCH ×3 (07:05→18:21)
[2021-03-10] MEDS: INSULIN LISPRO 100 UNIT/ML SUB-Q SCH ×4 (07:30→22:28)
[2021-03-10] MEDS: CALCIUM ACETATE 667 MG CAP PO SCH ×3 (08:00→17:20)
--- NOTE | 2021-03-10 08:36 | Progress Note ---
Assessment and Plan Assessment and plan: 55 YO Male with ESRD on HD, Noncompliance with outpatient dialysis, Anemia, HBV, Chronic Liver Disease, Cirrhosis complicated by Esophageal Varices, HTN, Debility, DM presents to ED with confusion with diminished cognition. Patient family report the patient was "not acting like himself" and found to have worsening confusion over the past 2 days. In the ER the patient was found to have hepatic encephalopathy complicated by diminished cognition, end-stage renal disease in need of urgent dialysis, as well as uncontrolled diabetes, and acidosis. Nephrology team consulted in ED and patient was then admitted for further evaluation and Mx. A/p -- Hepatic encephalopathy due to hepatic cirrhosis cont lactulose, Neuro check, seizure precaution, aspiration precaution, fall precautions, continue to monitor. -- End stage renal disease Nephrology team consulted, strict I's/O, monitor urine output every shift, dialysis as per renal team, avoid nephrotoxic agents. --Metabolic Acidosis Nephrology team consulted, dialysis as per renal team. --Hyponatremia Monitor BMP, monitor fluid balance. -- Hyperammonemia Continue lactulose --Diabetes mellitus with hyperglycemia Consistent carb diet, SSI -- hyperkalemia, Improvement with dialysis --Ascitis, s/p paracentesis drained 6.2l of ascitic fluid --Sacral wound, cont wound care -- Moderate Protein Calorie Malnutrition, nutrition consulted --Noncompliance, counseled for medication compliance --DVT Px, SCD --DNR code status --Disposition: needs placement, CM waiting for placement Daily clinical course: 02/19: Resume dialysis will adjust insulin for better coverage. Very poor progn osis considering poor medical compliance. Agree with hospice recommendation. Will obtain wound care to continue to manage. Monitor anemia as patient was pretty anemic during the last hospitalization. Required transfusion. 02/20: Continues to undergo dialysis no change in mental status noted. Tolerating medications. Blood sugar mildly elevated adjusted insulin yesterday when awake for the patient received a dose today and if still elevated will adjust. Again case management is working on discharge plan for this patient as he is pending placement 02/21 patient complains of right hip pain. He said he fell few weeks ago and is concerned about another fracture. He had a fracture about 8 weeks ago and had surgery. Will obtain X ray right hip. Patient pending placement. 02/22 Patient seen in Dialysis Unit. He states hip pain improved. No other complaints. Right hip X ray done yesterday report read may be healing fracture or acute fracture. Will discuss with Orthopedic Surgeon Patient pending placement 02/23 Less hip pain. Today complains of generalized itching. Will start Benadryl po prn. Orthopedic consulted to evaluate right hip. Patient pending placement 02/24 Less hip pain. Generalized itching now resolved. Orthopedic consulted to evaluate right hip. He complains of sleeplessness. Will give Ambien prn Patient pending placement 02/25 Patient requested DNR status yesterday. I discussed with him and he signed forms. He also complains of worsening abdominal distension and requested t apping, Will order paracentesis. Right hip evaluated by Dr. Trivedi and conservative management recommended. 02/26: Plan for paracentesis today. Need to set up dialysis as outpatient. 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 02/27: Patient did not sign the consent for paracentesis yesterday so paracentesis was done today and aspirated 6.2L ascitic fluid. Patient refusing medication per RN. Getting dialysis. Patient noted slightly altered today, will place NG tube remains altered and keep refusing oral meds, order for ammonia level and will cont lactulose. 02/28: Patient appears much more calm and cooperative today. He stated that he has been refusing procedure and medication as he believes he was not in the right state of his mind. Patient acknowledges the importance of being compliant and he promises that he will take the medications as he will be given. Discharge planning per case management as patient would need outpatient dialysis center set up and personal jail set up. 03/01/21: Patient has custodial setting but according to nurse case management no available RN to accept the patient till Thursday. Continue supportive care. Discharge pending on placement. 03/02/21 -03/04/21: Discharge pending on placement, continue to monitor clinically. Continue current management and plan and supportive care. Patient need SNF placement. 03/05/2021; Awaiting SNF placement for discharge. Prognosis is very poor. Patient is nonresponsive. I try to reach to his son over the phone but could not get in touch. Patient is appropriate for hospice care. 03/06/2021; patient is awaiting SNF placement. Patient was alert and oriented. No confusion. Patient is stable to be discharged back to SNF. 03/07/2021; patient has hemoglobin of 6.8 this morning. A unit of blood ordered. Will monitor H&H. Nephrology is following for dialysis. 03/08/2021; patient's hemoglobin was 6.8 yesterday and transfused a unit of blood. I ordered yesterday to do posttransfusion H&H and was not done. CBC was ordered to be done this morning but was not done. COVID-19 test was done on 03/06 and positive. Nephrology is following the patient for his dialysis. Plan is to discharge him to SNF. Will follow with case management because patient is Covid positive. 03/09/2021; patient's repeat Covid test on 03/08/2021 was positive. Patient is pending for SNF Placement. Patient had hypoglycemia yesterday and patient was placed on Lantus and his sliding scale adjusted to high dose. Will monitor and adjust as needed. 03/10/2021; pending SNF placement. Covid test was positive on and . History Interval history: Patient was seen and evaluated this morning Patient was alert and oriented Patient does have any complaints Hospitalist Physical - Physical exam Narrative exam: Not in cardiopulmonary distress. The patient appeared well nourished and normally developed. Vital signs as documented. Head exam is unremarkable. No scleral icterus . Neck is without jugular venous distension, thyromegaly, or carotid bruits. Lungs are clear to auscultation. Cardiac exam reveals regular rate and Rhythm. Abdominal exam reveals normal bowel sounds, nontender, no organomegaly. Extremities right BKA. 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 Sacral decubitus ulcer. - Constitutional Vitals: Temp Pulse Resp BP Pulse Ox 99.6 F 79 20 151/55 100 03/09/21 23:27 03/09/21 23:27 03/09/21 23:27 03/09/21 23:27 03/09/21 23:27 General appearance: Present: no acute distress, well-nourished Results - Labs CBC & Chem 7: 03/08/21 07:06 03/07/21 05:23 Labs: Laboratory Last Values WBC 2.7 K/mm3 (4.5-11.0) L 03/08/21 07:06 RBC 2.40 M/mm3 (3.65-5.03) L 03/08/21 07:06 Hgb 7.5 gm/dl (11.8-15.2) L 03/08/21 07:06 Hct 22.4 % (35.5-45.6) L 03/08/21 07:06 MCV 93 fl (84-94) 03/08/21 07:06 MCH 32 pg (28-32) 03/08/21 07:06 MCHC 34 % (32-34) 03/08/21 07:06 RDW 17.3 % (13.2-15.2) H 03/08/21 07:06 Plt Count 82 K/mm3 (140-440) L 03/08/21 07:06 Lymph % (Auto) 17.4 % (13.4-35.0) 03/08/21 07:06 Garvin % (Auto) 14.8 % (0.0-7.3) H 03/08/21 07:06 Eos % (Auto) 1.1 % (0.0-4.3) 03/08/21 07:06 Baso % (Auto) 0.5 % (0.0-1.8) 03/08/21 07:06 Lymph # (Auto) 0.5 K/mm3 (1.2-5.4) L 03/08/21 07:06 Garvin # (Auto) 0.4 K/mm3 (0.0-0.8) 03/08/21 07:06 Eos # (Auto) 0.0 K/mm3 (0.0-0.4) 03/08/21 07:06 Baso # (Auto) 0.0 K/mm3 (0.0-0.1) 03/08/21 07:06 Add Manual Diff Complete 03/07/21 05:23 Total Counted 100 03/07/21 05:23 Seg Neutrophils % 66.2 % (40.0-70.0) 03/08/21 07:06 Seg Neuts % (Manual) 78.0 % (40.0-70.0) H 03/07/21 05:23 Lymphocytes % (Manual) 13.0 % (13.4-35.0) L 03/07/21 05:23 Monocytes % (Manual) 9.0 % (0.0-7.3) H 03/07/21 05:23 Nucleated RBC % Not Reportable 03/07/21 05:23 Seg Neutrophils # 1.8 K/mm3 (1.8-7.7) 03/08/21 07:06 Seg Neutrophils # Man 2.0 K/mm3 (1.8-7.7) 03/07/21 05:23 Band Neutrophils # 0.0 K/mm3 03/07/21 05:23 Lymphocytes # (Manual) 0.3 K/mm3 (1.2-5.4) L 03/07/21 05:23 Abs React Lymphs (Man) 0.0 K/mm3 03/07/21 05:23 Monocytes # (Manual) 0.2 K/mm3 (0.0-0.8) 03/07/21 05:23 Eosinophils # (Manual) 0.0 K/mm3 (0.0-0.4) 03/07/21 05:23 Basophils # (Manual) 0.0 K/mm3 (0.0-0.1) 03/07/21 05:23 Metamyelocytes # 0.0 K/mm3 03/07/21 05:23 Myelocytes # 0.0 K/mm3 03/07/21 05:23 Promyelocytes # 0.0 K/mm3 03/07/21 05:23 Blast Cells # 0.0 K/mm3 03/07/21 05:23 WBC Morphology Not Reportable 03/07/21 05:23 Hypersegmented Neuts Not Reportable 03/07/21 05:23 Hyposegmented Neuts Not Reportable 03/07/21 05:23 Hypogranular Neuts Not Reportable 03/07/21 05:23 Smudge Cells Not Reportable 03/07/21 05:23 Toxic Granulation Not Reportable 03/07/21 05:23 Toxic Vacuolation Not Reportable 03/07/21 05:23 Dohle Bodies Not Reportable 03/07/21 05:23 Pelger-Huet Anomaly Not Reportable 03/07/21 05:23 Cosme Rods Not Reportable 03/07/21 05:23 Platelet Estimate Consistent w auto 03/07/21 05:23 Clumped Platelets Not Reportable 03/07/21 05:23 Plt Clumps, EDTA Not Reportable 03/07/21 05:23 Large Platelets Not Reportable 03/07/21 05:23 Giant Platelets Not Reportable 03/07/21 05:23 Platelet Satelliting Not Reportable 03/07/21 05:23 Plt Morphology Comment Not Reportable 03/07/21 05:23 RBC Morphology Not Reportable 03/07/21 05:23 Dimorphic RBCs Not Reportable 03/07/21 05:23 Polychromasia Not Reportable 03/07/21 05:23 Hypochromasia Not Reportable 03/07/21 05:23 Poikilocytosis Not Reportable 03/07/21 05:23 Anisocytosis Few 03/07/21 05:23 Microcytosis Not Reportable 03/07/21 05:23 Macrocytosis Not Reportable 03/07/21 05:23 Spherocytes Not Reportable 03/07/21 05:23 Pappenheimer Bodies Not Reportable 03/07/21 05:23 Sickle Cells Not Reportable 03/07/21 05:23 Target Cells Not Reportable 03/07/21 05:23 Tear Drop Cells Not Reportable 03/07/21 05:23 Ovalocytes Not Reportable 03/07/21 05:23 Helmet Cells Not Reportable 03/07/21 05:23 Mercado-Walbridge Bodies Not Reportable 03/07/21 05:23 Atwood Rings Not Reportable 03/07/21 05:23 Kathy Cells Not Reportable 03/07/21 05:23 Bite Cells Not Reportable 03/07/21 05:23 Crenated Cell Not Reportable 03/07/21 05:23 Elliptocytes Not Reportable 03/07/21 05:23 Acanthocytes (Spur) Not Reportable 03/07/21 05:23 Rouleaux Not Reportable 03/07/21 05:23 Hemoglobin C Crystals Not Reportable 03/07/21 05:23 Schistocytes Not Reportable 03/07/21 05:23 Malaria parasites Not Reportable 03/07/21 05:23 Samir Bodies Not Reportable 03/07/21 05:23 Hem Pathologist Commnt No 03/07/21 05:23 PT 13.7 Sec. (12.2-14.9) 02/26/21 04:33 INR 1.00 (0.87-1.13) 02/26/21 04:33 Sodium 134 mmol/L (137-145) L 03/07/21 05:23 Potassium 3.8 mmol/L (3.6-5.0) 03/07/21 05:23 Chloride 93.6 mmol/L (98-107) L 03/07/21 05:23 Carbon Dioxide 31 mmol/L (22-30) H 03/07/21 05:23 Anion Gap 13 mmol/L 03/07/21 05:23 BUN 38 mg/dL (9-20) H 03/07/21 05:23 Creatinine 4.5 mg/dL (0.8-1.3) H 03/07/21 05:23 Estimated GFR 14 ml/min 03/07/21 05:23 BUN/Creatinine Ratio 8 % 03/07/21 05:23 Glucose 284 mg/dL (75-100) H 03/07/21 05:23 POC Glucose 299 mg/dL (70-105) H 03/09/21 21:12 Hemoglobin A1c 7.4 % (4-6) H 02/26/21 04:33 Calcium 8.4 mg/dL (8.4-10.2) 03/07/21 05:23 Magnesium 2.10 mg/dL (1.7-2.3) 02/17/21 02:24 Total Bilirubin 0.60 mg/dL (0.1-1.2) 02/17/21 02:24 AST 18 units/L (5-40) 02/17/21 02:24 ALT 19 units/L (7-56) 02/17/21 02:24 Alkaline Phosphatase 171 units/L (35-129) H 02/17/21 02:24 Ammonia 117.0 umol/L (25-60) H 03/09/21 10:10 Total Creatine Kinase 86 units/L (55-170) 02/17/21 02:24 Total Protein 6.2 g/dL (6.3-8.2) L 02/17/21 02:24 Albumin 3.0 g/dL (3.9-5) L 02/17/21 02:24 Albumin/Globulin Ratio 0.9 % 02/17/21 02:24 TSH 0.986 mlU/mL (0.270-4.200) 02/17/21 02:24 Urine Color Yellow (Yellow) 02/17/21 Unknown Urine Turbidity Clear (Clear) 02/17/21 Unknown Urine pH 6.0 (5.0-7.0) 02/17/21 Unknown Ur Specific [place] 1.012 (1.003-1.030) 02/17/21 Unknown Urine Protein 100 mg/dl mg/dL (Negative) 02/17/21 Unknown Urine Glucose (UA) >=500 mg/dL (Negative) 02/17/21 Unknown Urine Ketones Neg mg/dL (Negative) 02/17/21 Unknown Urine Blood Neg (Negative) 02/17/21 Unknown Urine Nitrite Neg (Negative) 02/17/21 Unknown Urine Bilirubin Neg (Negative) 02/17/21 Unknown Urine Urobilinogen < 2.0 mg/dL (<2.0) 02/17/21 Unknown Ur Leukocyte Esterase Neg (Negative) 02/17/21 Unknown Urine WBC (Auto) 2.0 /HPF (0.0-6.0) 02/17/21 Unknown Urine RBC (Auto) 2.0 /HPF (0.0-6.0) 02/17/21 Unknown U Epithel Cells (Auto) < 1.0 /HPF (0-13.0) 02/17/21 Unknown Urine Bacteria (Auto) 1+ /HPF (Negative) 02/17/21 Unknown Salicylates < 0.3 mg/dL (2.8-20.0) L 02/17/21 02:24 Acetaminophen 5.0 ug/mL (10.0-30.0) L 02/17/21 02:24 Coronavirus (PCR) Positive (Negative) A 03/08/21 10:57 Hepatitis A IgM Ab Non-reactive (NonReactive) 02/28/21 12:37 Hep Bs Antigen Non-reactive (Negative) 02/28/21 12:37 Hep B Core IgM Ab Non-reactive (NonReactive) 02/28/21 12:37 Hepatitis C Antibody Non-reactive (NonReactive) 02/28/21 12:37 Blood Type A POSITIVE 03/07/21 06:31 Antibody Screen Negative 03/07/21 06:31 Crossmatch See Detail 03/07/21 06:31 Sr/IV: Voiding Method Incontinent Active Medications - Current Medications Current Medications: Generic Name Dose Route Start Last Admin Trade Name Freq PRN Reason Stop Dose Admin Acetaminophen 650 mg 02/18/21 22:38 03/09/21 13:15 Acetaminophen 325 Mg Tab PO 650 mg Q4H PRN Administration Pain MILD(1-3)/Fever >100.5/MOLINA Albuterol 2.5 mg 02/18/21 22:38 Albuterol 2.5 Mg/3 Ml Nebu IH Q3HRT PRN Shortness Of Breath Allopurinol 100 mg 02/20/21 10:00 03/09/21 10:29 Allopurinol 100 Mg Tab PO Not Given QDAY LEYLA Calcium Acetate 1,334 mg 02/20/21 08:30 03/09/21 17:42 Calcium Acetate 667 Mg Cap PO 1,334 mg TIDWM LEYLA Administration Dextrose 0 ml 02/18/21 23:00 02/25/21 16:56 Dextrose 50% In Water (25gm) 50 Ml Syringe IV 50 ml Q30MIN PRN Administration Hypoglycemia Protocol Diphenhydramine HCl 25 mg 02/23/21 09:10 03/01/21 10:30 Diphenhydramine 25 Mg Cap PO 25 mg BID PRN Administration Itching Famotidine 20 mg 02/19/21 10:00 03/09/21 10:28 Famotidine 20 Mg Tab PO Not Given QAM LEYLA Hydralazine HCl 10 mg 02/18/21 22:56 Hydralazine 20 Mg/1 Ml Inj IV Q6H PRN htn Sodium Chloride 100 mls @ 999 mls/hr 02/19/21 09:06 Nacl 0.9% IV OLIVIA PRN Hypotension Insulin Glargine 10 units 03/09/21 22:00 03/09/21 23:25 Insulin Glargine 100 Units/Ml SUB-Q 10 units QHS LEYLA Administration Insulin Human Lispro 0 unit 03/09/21 22:00 03/09/21 23:25 Insulin Lispro 100 Unit/Ml SUB-Q 6 unit ACHS LEYLA Administration Protocol Lactulose 20 gm 03/09/21 18:00 03/10/21 07:05 Lactulose 20 Gm/30 Ml Oral Liqd PO 20 gm Q6HR LEYLA Administration Ondansetron HCl 4 mg 02/18/21 22:38 02/28/21 12:32 Ondansetron 4 Mg/2 Ml Inj IV 4 mg Q8H PRN Administration Nausea And Vomiting Polyethylene Glycol 17 gm 02/24/21 12:08 02/24/21 12:47 Polyethylene Glycol 3350 17 Gm Powder PO 17 gm QDAY PRN Administration Constipation Propranolol HCl 20 mg 02/20/21 10:00 03/09/21 23:24 Propranolol 10 Mg Tab PO 20 mg BID LEYLA Administration Sodium Chloride 10 ml 02/19/21 10:00 03/09/21 23:26 Sodium Chloride 0.9% 10 Ml Flush Syringe IV 10 ml BID LEYLA Administration Sodium Chloride 10 ml 02/18/21 22:38 Sodium Chloride 0.9% 10 Ml Flush Syringe IV PRN PRN LINE FLUSH Tramadol HCl 50 mg 02/24/21 13:20 02/25/21 10:17 Tramadol 50 Mg Tab PO 50 mg Q6H PRN Administration Pain, Moderate (4-6) Zolpidem Tartrate 5 mg 02/24/21 09:54 03/08/21 23:25 Zolpidem 5 Mg Tab PO 5 mg QHS PRN Administration Sleep Nutrition/Malnutrition Assess - Dietary Evaluation Nutrition/Malnutrition Findings: Nutrition Notes Start: 02/19/21 10:48 Freq: Status: Active Protocol: Document 03/07/21 16:43 AKSHAT (Rec: 03/07/21 16:45 [email or web address] [id number]) Nutrition Notes Initial or Follow up Brief Note Current Diagnosis CKD (stage V CKD),Diabetes Other Pertinent Diagnosis COVID-19 (+), hepatic encephalopathy, ascites Subjective/Other Information Unable to reach pt via phone. Pt with hx of medication/ medical noncompliance. He has consumed <25% of meals since last assessment. Nutrition Intervention Follow-Up By: 03/10/21 Additional Comments F/U: intakes
[2021-03-10] MEDS: allopurinoL 100 MG TAB PO SCH (09:30)
[2021-03-10] MEDS: PROPRANOLOL 10 MG TAB PO SCH ×2 (09:30→22:28)
[2021-03-10] MEDS: FAMOTIDINE 20 MG TAB PO SCH (09:31)
[2021-03-10] MEDS: RIFAXIMIN 550 MG TAB PO SCH ×2 (12:00→22:28)
--- NOTE | 2021-03-10 15:37 | Progress Note ---
Assessment and Plan 1. ESRD: Patient is on maintenance hemodialysis three times a week, MWF schedule. Meds dosage based on GFR. Missed HD 02/18. Hemodialysis: 02/19, 02/20, 02/22, 02/25, 02/27, 03/01, 03/04, 03/06, 03/08. 2. FEN: Hyperkalemia, improved. Monitor lytes and volume status. 3. Anemia, POA: 2/2 ESRD and Liver disease. Epogen with HD. PRBC as needed. 4. Cirrhosis with h/o hepatic encephalopathy: Lactulose. Monitor. 5. DM type 2 uncontrolled: SSI. Monitor. 6. Thrombocytopenia, POA: 7. Hypertension: Monitor BP. Adjust meds as appropriate. Await placement. Subjective: Patient was seen and examined at the bedside. General Appearance: General appearance: well-developed, appears stated age, not in distress HEENT: ATNC, pupils equal Neck: trachea midline Respiratory: ctab Heart: regular, S1S2, no murmur Abdomen: soft, bowel sounds heard, not tender Integumentary: no rash, warm and dry Neurologic: lethargic, non-verbal Ext: no edema, R BKA Hemodialysis access: R arm AVF Subjective Date of service: 03/10/21 Objective - Lab 03/08/21 07:06 03/07/21 05:23 Most recent lab results Calcium 8.4 mg/dL (8.4-10.2) 03/07/21 05:23 Magnesium 2.10 mg/dL (1.7-2.3) 02/17/21 02:24 Medications & Allergies - Medications Allergies/Adverse Reactions: Allergies No Known Allergies Allergy (Verified 02/16/21 18:26) Home Medications: Home Medications Medication Instructions Recorded Confirmed Last Taken Type Calcium Acetate [Phoslo] 1,334 mg PO TIDWM #90 capsule 03/01/21 Unknown Rx Famotidine [Pepcid] 20 mg PO QAM #30 tablet 03/01/21 Unknown Rx Lactulose [Cephulac] 20 gm PO Q8HR 30 Days 03/01/21 Unknown Rx Lispro Insulin [HumaLOG] See Protocol SQ ACHS 30 Days 03/01/21 Unknown Rx allopurinoL [Zyloprim] 100 mg PO QDAY #30 tablet 03/01/21 Unknown Rx propranoloL [Inderal] 20 mg PO BID #60 tablet 03/01/21 Unknown Rx Active Medications: Generic Name Dose Route Start Last Admin Trade Name Freq PRN Reason Stop Dose Admin Acetaminophen 650 mg 02/18/21 22:38 03/09/21 13:15 Acetaminophen 325 Mg Tab PO 650 mg Q4H PRN Administration Pain MILD(1-3)/Fever >100.5/MOLINA Albuterol 2.5 mg 02/18/21 22:38 Albuterol 2.5 Mg/3 Ml Nebu IH Q3HRT PRN Shortness Of Breath Allopurinol 100 mg 02/20/21 10:00 03/10/21 09:30 Allopurinol 100 Mg Tab PO 100 mg QDAY LEYLA Administration Calcium Acetate 1,334 mg 02/20/21 08:30 03/10/21 12:00 Calcium Acetate 667 Mg Cap PO 1,334 mg TIDWM LEYLA Administration Dextrose 0 ml 02/18/21 23:00 02/25/21 16:56 Dextrose 50% In Water (25gm) 50 Ml Syringe IV 50 ml Q30MIN PRN Administration Hypoglycemia Protocol Diphenhydramine HCl 25 mg 02/23/21 09:10 03/01/21 10:30 Diphenhydramine 25 Mg Cap PO 25 mg BID PRN Administration Itching Famotidine 20 mg 02/19/21 10:00 03/10/21 09:31 Famotidine 20 Mg Tab PO 20 mg QAM LEYLA Administration Hydralazine HCl 10 mg 02/18/21 22:56 Hydralazine 20 Mg/1 Ml Inj IV Q6H PRN htn Sodium Chloride 100 mls @ 999 mls/hr 02/19/21 09:06 Nacl 0.9% IV OLIVIA PRN Hypotension Insulin Glargine 10 units 03/09/21 22:00 03/09/21 23:25 Insulin Glargine 100 Units/Ml SUB-Q 10 units QHS LEYLA Administration Insulin Human Lispro 0 unit 03/09/21 22:00 03/10/21 11:30 Insulin Lispro 100 Unit/Ml SUB-Q 4 unit ACHS LEYLA Administration Protocol Lactulose 20 gm 03/09/21 18:00 03/10/21 12:38 Lactulose 20 Gm/30 Ml Oral Liqd PO 20 gm Q6HR LEYLA Administration Ondansetron HCl 4 mg 02/18/21 22:38 02/28/21 12:32 Ondansetron 4 Mg/2 Ml Inj IV 4 mg Q8H PRN Administration Nausea And Vomiting Polyethylene Glycol 17 gm 02/24/21 12:08 02/24/21 12:47 Polyethylene Glycol 3350 17 Gm Powder PO 17 gm QDAY PRN Administration Constipation Propranolol HCl 20 mg 02/20/21 10:00 03/10/21 09:30 Propranolol 10 Mg Tab PO 20 mg BID LEYLA Administration Rifaximin 550 mg 03/10/21 12:00 03/10/21 12:00 Rifaximin 550 Mg Tab PO 550 mg BID LEYLA Administration Sodium Chloride 10 ml 02/19/21 10:00 03/10/21 09:31 Sodium Chloride 0.9% 10 Ml Flush Syringe IV 10 ml BID LEYLA Administration Sodium Chloride 10 ml 02/18/21 22:38 Sodium Chloride 0.9% 10 Ml Flush Syringe IV PRN PRN LINE FLUSH Tramadol HCl 50 mg 02/24/21 13:20 02/25/21 10:17 Tramadol 50 Mg Tab PO 50 mg Q6H PRN Administration Pain, Moderate (4-6) Zolpidem Tartrate 5 mg 02/24/21 09:54 03/08/21 23:25 Zolpidem 5 Mg Tab PO 5 mg QHS PRN Administration Sleep
[2021-03-10] MEDS: INSULIN GLARGINE 100 UNITS/ML SUB-Q SCH (22:28)
[2021-03-11] MEDS: LACTULOSE 20 GM/30 ML ORAL LIQD PO SCH ×5 (01:54→23:34)
--- NOTE | 2021-03-11 09:02 | Progress Note ---
Assessment and Plan Assessment and plan: 55 YO Male with ESRD on HD, Noncompliance with outpatient dialysis, Anemia, HBV, Chronic Liver Disease, Cirrhosis complicated by Esophageal Varices, HTN, Debility, DM presents to ED with confusion with diminished cognition. Patient family report the patient was "not acting like himself" and found to have worsening confusion over the past 2 days. In the ER the patient was found to have hepatic encephalopathy complicated by diminished cognition, end-stage renal disease in need of urgent dialysis, as well as uncontrolled diabetes, and acidosis. Nephrology team consulted in ED and patient was then admitted for further evaluation and Mx. A/p -- Hepatic encephalopathy due to hepatic cirrhosis cont lactulose, Neuro check, seizure precaution, aspiration precaution, fall precautions, continue to monitor. -- End stage renal disease Nephrology team consulted, strict I's/O, monitor urine output every shift, dialysis as per renal team, avoid nephrotoxic agents. --Metabolic Acidosis Nephrology team consulted, dialysis as per renal team. --Hyponatremia Monitor BMP, monitor fluid balance. -- Hyperammonemia Continue lactulose --Diabetes mellitus with hyperglycemia Consistent carb diet, SSI -- hyperkalemia, Improvement with dialysis --Ascitis, s/p paracentesis drained 6.2l of ascitic fluid --Sacral wound, cont wound care -- Moderate Protein Calorie Malnutrition, nutrition consulted --Noncompliance, counseled for medication compliance --DVT Px, SCD --DNR code status --Disposition: needs placement, CM waiting for placement Daily clinical course: 02/19: Resume dialysis will adjust insulin for better coverage. Very poor progn osis considering poor medical compliance. Agree with hospice recommendation. Will obtain wound care to continue to manage. Monitor anemia as patient was pretty anemic during the last hospitalization. Required transfusion. 02/20: Continues to undergo dialysis no change in mental status noted. Tolerating medications. Blood sugar mildly elevated adjusted insulin yesterday when awake for the patient received a dose today and if still elevated will adjust. Again case management is working on discharge plan for this patient as he is pending placement 02/21 patient complains of right hip pain. He said he fell few weeks ago and is concerned about another fracture. He had a fracture about 8 weeks ago and had surgery. Will obtain X ray right hip. Patient pending placement. 02/22 Patient seen in Dialysis Unit. He states hip pain improved. No other complaints. Right hip X ray done yesterday report read may be healing fracture or acute fracture. Will discuss with Orthopedic Surgeon Patient pending placement 02/23 Less hip pain. Today complains of generalized itching. Will start Benadryl po prn. Orthopedic consulted to evaluate right hip. Patient pending placement 02/24 Less hip pain. Generalized itching now resolved. Orthopedic consulted to evaluate right hip. He complains of sleeplessness. Will give Ambien prn Patient pending placement 02/25 Patient requested DNR status yesterday. I discussed with him and he signed forms. He also complains of worsening abdominal distension and requested t apping, Will order paracentesis. Right hip evaluated by Dr. Trivedi and conservative management recommended. 02/26: Plan for paracentesis today. Need to set up dialysis as outpatient. [employer] working on discharge planning. 02/27: Patient did not sign the consent for paracentesis yesterday so paracentesis was done today and aspirated 6.2L ascitic fluid. Patient refusing medication per RN. Getting dialysis. Patient noted slightly altered today, will place NG tube remains altered and keep refusing oral meds, order for ammonia level and will cont lactulose. 02/28: Patient appears much more calm and cooperative today. He stated that he has been refusing procedure and medication as he believes he was not in the right state of his mind. Patient acknowledges the importance of being compliant and he promises that he will take the medications as he will be given. Discharge planning per case management as patient would need outpatient dialysis center set up and personal fdc set up. 03/01/21: Patient has halfway setting but according to case folder no available RN to accept the patient till Thursday. Continue supportive care. Discharge pending on placement. 03/02/21 -03/04/21: Discharge pending on placement, continue to monitor clinically. Continue current management and plan and supportive care. Patient need SNF placement. 03/05/2021; Awaiting SNF placement for discharge. Prognosis is very poor. Patient is nonresponsive. I try to reach to his son over the phone but could not get in touch. Patient is appropriate for hospice care. 03/06/2021; patient is awaiting SNF placement. Patient was alert and oriented. No confusion. Patient is stable to be discharged back to SNF. 03/07/2021; patient has hemoglobin of 6.8 this morning. A unit of blood ordered. Will monitor H&H. Nephrology is following for dialysis. 03/08/2021; patient's hemoglobin was 6.8 yesterday and transfused a unit of blood. I ordered yesterday to do posttransfusion H&H and was not done. CBC was ordered to be done this morning but was not done. COVID-19 test was done on 03/06 and positive. Nephrology is following the patient for his dialysis. Plan is to discharge him to SNF. Will follow with case management because patient is Covid positive. 03/09/2021; patient's repeat Covid test on 03/08/2021 was positive. Patient is pending for SNF Placement. Patient had hypoglycemia yesterday and patient was placed on Lantus and his sliding scale adjusted to high dose. Will monitor and adjust as needed. 03/10/2021; pending SNF placement. Covid test was positive on and . 03/11/2021; patient has hepatic encephalopathy and his ammonia level is very high, patient is currently on lactulose and rifaximin. Ammonia level is trending down. Nephrology is following for dialysis. Patient has positive Covid test last one was on 03/08, that makes placement difficult. Continue with case management. History Interval history: Patient was seen and evaluated this morning Patient was alert and oriented Patient does have any complaints Hospitalist Physical - Physical exam Narrative exam: Not in cardiopulmonary distress. The patient appeared well nourished and normally developed. Vital signs as documented. Head exam is unremarkable. No scleral icterus . Neck is without jugular venous distension, thyromegaly, or carotid bruits. Lungs are clear to auscultation. Cardiac exam reveals regular rate and Rhythm. Abdominal exam reveals normal bowel sounds, nontender, no organomegaly. Extremities right BKA. 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 Sacral decubitus ulcer. - Constitutional Vitals: Temp Pulse Resp BP Pulse Ox 98.5 F 68 20 152/58 99 03/10/21 22:58 03/10/21 22:58 03/10/21 22:58 03/10/21 22:58 03/10/21 22:58 General appearance: Present: no acute distress, well-nourished Results - Labs CBC & Chem 7: 03/08/21 07:06 03/07/21 05:23 Labs: Laboratory Last Values WBC 2.7 K/mm3 (4.5-11.0) L 03/08/21 07:06 RBC 2.40 M/mm3 (3.65-5.03) L 03/08/21 07:06 Hgb 7.5 gm/dl (11.8-15.2) L 03/08/21 07:06 Hct 22.4 % (35.5-45.6) L 03/08/21 07:06 MCV 93 fl (84-94) 03/08/21 07:06 MCH 32 pg (28-32) 03/08/21 07:06 MCHC 34 % (32-34) 03/08/21 07:06 RDW 17.3 % (13.2-15.2) H 03/08/21 07:06 Plt Count 82 K/mm3 (140-440) L 03/08/21 07:06 Lymph % (Auto) 17.4 % (13.4-35.0) 03/08/21 07:06 [place] % (Auto) 14.8 % (0.0-7.3) H 03/08/21 07:06 Eos % (Auto) 1.1 % (0.0-4.3) 03/08/21 07:06 Baso % (Auto) 0.5 % (0.0-1.8) 03/08/21 07:06 Lymph # (Auto) 0.5 K/mm3 (1.2-5.4) L 03/08/21 07:06 [place] # (Auto) 0.4 K/mm3 (0.0-0.8) 03/08/21 07:06 Eos # (Auto) 0.0 K/mm3 (0.0-0.4) 03/08/21 07:06 Baso # (Auto) 0.0 K/mm3 (0.0-0.1) 03/08/21 07:06 Add Manual Diff Complete 03/07/21 05:23 Total Counted 100 03/07/21 05:23 Seg Neutrophils % 66.2 % (40.0-70.0) 03/08/21 07:06 Seg Neuts % (Manual) 78.0 % (40.0-70.0) H 03/07/21 05:23 Lymphocytes % (Manual) 13.0 % (13.4-35.0) L 03/07/21 05:23 Monocytes % (Manual) 9.0 % (0.0-7.3) H 03/07/21 05:23 Nucleated RBC % Not Reportable 03/07/21 05:23 Seg Neutrophils # 1.8 K/mm3 (1.8-7.7) 03/08/21 07:06 Seg Neutrophils # Man 2.0 K/mm3 (1.8-7.7) 03/07/21 05:23 Band Neutrophils # 0.0 K/mm3 03/07/21 05:23 Lymphocytes # (Manual) 0.3 K/mm3 (1.2-5.4) L 03/07/21 05:23 Abs React Lymphs (Man) 0.0 K/mm3 03/07/21 05:23 Monocytes # (Manual) 0.2 K/mm3 (0.0-0.8) 03/07/21 05:23 Eosinophils # (Manual) 0.0 K/mm3 (0.0-0.4) 03/07/21 05:23 Basophils # (Manual) 0.0 K/mm3 (0.0-0.1) 03/07/21 05:23 Metamyelocytes # 0.0 K/mm3 03/07/21 05:23 Myelocytes # 0.0 K/mm3 03/07/21 05:23 Promyelocytes # 0.0 K/mm3 03/07/21 05:23 Blast Cells # 0.0 K/mm3 03/07/21 05:23 WBC Morphology Not Reportable 03/07/21 05:23 Hypersegmented Neuts Not Reportable 03/07/21 05:23 Hyposegmented Neuts Not Reportable 03/07/21 05:23 Hypogranular Neuts Not Reportable 03/07/21 05:23 Smudge Cells Not Reportable 03/07/21 05:23 Toxic Granulation Not Reportable 03/07/21 05:23 Toxic Vacuolation Not Reportable 03/07/21 05:23 Dohle Bodies Not Reportable 03/07/21 05:23 Pelger-Huet Anomaly Not Reportable 03/07/21 05:23 Cosme Rods Not Reportable 03/07/21 05:23 Platelet Estimate Consistent w auto 03/07/21 05:23 Clumped Platelets Not Reportable 03/07/21 05:23 Plt Clumps, EDTA Not Reportable 03/07/21 05:23 Large Platelets Not Reportable 03/07/21 05:23 Giant Platelets Not Reportable 03/07/21 05:23 Platelet Satelliting Not Reportable 03/07/21 05:23 Plt Morphology Comment Not Reportable 03/07/21 05:23 RBC Morphology Not Reportable 03/07/21 05:23 Dimorphic RBCs Not Reportable 03/07/21 05:23 Polychromasia Not Reportable 03/07/21 05:23 Hypochromasia Not Reportable 03/07/21 05:23 Poikilocytosis Not Reportable 03/07/21 05:23 Anisocytosis Few 03/07/21 05:23 Microcytosis Not Reportable 03/07/21 05:23 Macrocytosis Not Reportable 03/07/21 05:23 Spherocytes Not Reportable 03/07/21 05:23 Pappenheimer Bodies Not Reportable 03/07/21 05:23 Sickle Cells Not Reportable 03/07/21 05:23 Target Cells Not Reportable 03/07/21 05:23 Tear Drop Cells Not Reportable 03/07/21 05:23 Ovalocytes Not Reportable 03/07/21 05:23 Helmet Cells Not Reportable 03/07/21 05:23 [place] Bodies Not Reportable 03/07/21 05:23 [place] Rings Not Reportable 03/07/21 05:23 [place] Cells Not Reportable 03/07/21 05:23 Bite Cells Not Reportable 03/07/21 05:23 Crenated Cell Not Reportable 03/07/21 05:23 Elliptocytes Not Reportable 03/07/21 05:23 Acanthocytes (Spur) Not Reportable 03/07/21 05:23 Rouleaux Not Reportable 03/07/21 05:23 Hemoglobin C Crystals Not Reportable 03/07/21 05:23 Schistocytes Not Reportable 03/07/21 05:23 Malaria parasites Not Reportable 03/07/21 05:23 Samir Bodies Not Reportable 03/07/21 05:23 Hem Pathologist Commnt No 03/07/21 05:23 PT 13.7 Sec. (12.2-14.9) 02/26/21 04:33 INR 1.00 (0.87-1.13) 02/26/21 04:33 Sodium 134 mmol/L (137-145) L 03/07/21 05:23 Potassium 3.8 mmol/L (3.6-5.0) 03/07/21 05:23 Chloride 93.6 mmol/L (98-107) L 03/07/21 05:23 Carbon Dioxide 31 mmol/L (22-30) H 03/07/21 05:23 Anion Gap 13 mmol/L 03/07/21 05:23 BUN 38 mg/dL (9-20) H 03/07/21 05:23 Creatinine 4.5 mg/dL (0.8-1.3) H 03/07/21 05:23 Estimated GFR 14 ml/min 03/07/21 05:23 BUN/Creatinine Ratio 8 % 03/07/21 05:23 Glucose 284 mg/dL (75-100) H 03/07/21 05:23 POC Glucose 186 mg/dL (70-105) H 03/11/21 07:32 Hemoglobin A1c 7.4 % (4-6) H 02/26/21 04:33 Calcium 8.4 mg/dL (8.4-10.2) 03/07/21 05:23 Magnesium 2.10 mg/dL (1.7-2.3) 02/17/21 02:24 Total Bilirubin 0.60 mg/dL (0.1-1.2) 02/17/21 02:24 AST 18 units/L (5-40) 02/17/21 02:24 ALT 19 units/L (7-56) 02/17/21 02:24 Alkaline Phosphatase 171 units/L (35-129) H 02/17/21 02:24 Ammonia 84.0 umol/L (25-60) H 03/11/21 05:45 Total Creatine Kinase 86 units/L (55-170) 02/17/21 02:24 Total Protein 6.2 g/dL (6.3-8.2) L 02/17/21 02:24 Albumin 3.0 g/dL (3.9-5) L 02/17/21 02:24 Albumin/Globulin Ratio 0.9 % 02/17/21 02:24 TSH 0.986 mlU/mL (0.270-4.200) 02/17/21 02:24 Urine Color Yellow (Yellow) 02/17/21 Unknown Urine Turbidity Clear (Clear) 02/17/21 Unknown Urine pH 6.0 (5.0-7.0) 02/17/21 Unknown Ur Specific [place] 1.012 (1.003-1.030) 02/17/21 Unknown Urine Protein 100 mg/dl mg/dL (Negative) 02/17/21 Unknown Urine Glucose (UA) >=500 mg/dL (Negative) 02/17/21 Unknown Urine Ketones Neg mg/dL (Negative) 02/17/21 Unknown Urine Blood Neg (Negative) 02/17/21 Unknown Urine Nitrite Neg (Negative) 02/17/21 Unknown Urine Bilirubin Neg (Negative) 02/17/21 Unknown Urine Urobilinogen < 2.0 mg/dL (<2.0) 02/17/21 Unknown Ur Leukocyte Esterase Neg (Negative) 02/17/21 Unknown Urine WBC (Auto) 2.0 /HPF (0.0-6.0) 02/17/21 Unknown Urine RBC (Auto) 2.0 /HPF (0.0-6.0) 02/17/21 Unknown U Epithel Cells (Auto) < 1.0 /HPF (0-13.0) 02/17/21 Unknown Urine Bacteria (Auto) 1+ /HPF (Negative) 02/17/21 Unknown Salicylates < 0.3 mg/dL (2.8-20.0) L 02/17/21 02:24 Acetaminophen 5.0 ug/mL (10.0-30.0) L 02/17/21 02:24 Coronavirus (PCR) Positive (Negative) A 03/08/21 10:57 Hepatitis A IgM Ab Non-reactive (NonReactive) 02/28/21 12:37 Hep Bs Antigen Non-reactive (Negative) 02/28/21 12:37 Hep B Core IgM Ab Non-reactive (NonReactive) 02/28/21 12:37 Hepatitis C Antibody Non-reactive (NonReactive) 02/28/21 12:37 Blood Type A POSITIVE 03/07/21 06:31 Antibody Screen Negative 03/07/21 06:31 Crossmatch See Detail 03/07/21 06:31 Sr/IV: Voiding Method Urinal Active Medications - Current Medications Current Medications: Generic Name Dose Route Start Last Admin Trade Name Freq PRN Reason Stop Dose Admin Acetaminophen 650 mg 02/18/21 22:38 03/09/21 13:15 Acetaminophen 325 Mg Tab PO 650 mg Q4H PRN Administration Pain MILD(1-3)/Fever >100.5/MOLINA Albuterol 2.5 mg 02/18/21 22:38 Albuterol 2.5 Mg/3 Ml Nebu IH Q3HRT PRN Shortness Of Breath Allopurinol 100 mg 02/20/21 10:00 03/10/21 09:30 Allopurinol 100 Mg Tab PO 100 mg QDAY LEYLA Administration Calcium Acetate 1,334 mg 02/20/21 08:30 03/10/21 17:20 Calcium Acetate 667 Mg Cap PO 1,334 mg TIDWM LEYLA Administration Dextrose 0 ml 02/18/21 23:00 02/25/21 16:56 Dextrose 50% In Water (25gm) 50 Ml Syringe IV 50 ml Q30MIN PRN Administration Hypoglycemia Protocol Diphenhydramine HCl 25 mg 02/23/21 09:10 03/01/21 10:30 Diphenhydramine 25 Mg Cap PO 25 mg BID PRN Administration Itching Famotidine 20 mg 02/19/21 10:00 03/10/21 09:31 Famotidine 20 Mg Tab PO 20 mg QAM LEYLA Administration Hydralazine HCl 10 mg 02/18/21 22:56 Hydralazine 20 Mg/1 Ml Inj IV Q6H PRN htn Sodium Chloride 100 mls @ 999 mls/hr 02/19/21 09:06 Nacl 0.9% IV OLIVIA PRN Hypotension Insulin Glargine 10 units 03/09/21 22:00 03/10/21 22:28 Insulin Glargine 100 Units/Ml SUB-Q 10 units QHS LEYLA Administration Insulin Human Lispro 0 unit 03/09/21 22:00 03/10/21 22:28 Insulin Lispro 100 Unit/Ml SUB-Q Not Given ACHS LEYLA Protocol Lactulose 20 gm 03/09/21 18:00 03/11/21 06:13 Lactulose 20 Gm/30 Ml Oral Liqd PO 20 gm Q6HR LEYLA Administration Ondansetron HCl 4 mg 02/18/21 22:38 02/28/21 12:32 Ondansetron 4 Mg/2 Ml Inj IV 4 mg Q8H PRN Administration Nausea And Vomiting Polyethylene Glycol 17 gm 02/24/21 12:08 02/24/21 12:47 Polyethylene Glycol 3350 17 Gm Powder PO 17 gm QDAY PRN Administration Constipation Propranolol HCl 20 mg 02/20/21 10:00 03/10/21 22:28 Propranolol 10 Mg Tab PO 20 mg BID LEYLA Administration Rifaximin 550 mg 03/10/21 12:00 03/10/21 22:28 Rifaximin 550 Mg Tab PO 550 mg BID LEYLA Administration Sodium Chloride 10 ml 02/19/21 10:00 03/10/21 22:28 Sodium Chloride 0.9% 10 Ml Flush Syringe IV 10 ml BID LEYLA Administration Sodium Chloride 10 ml 02/18/21 22:38 Sodium Chloride 0.9% 10 Ml Flush Syringe IV PRN PRN LINE FLUSH Tramadol HCl 50 mg 02/24/21 13:20 02/25/21 10:17 Tramadol 50 Mg Tab PO 50 mg Q6H PRN Administration Pain, Moderate (4-6) Zolpidem Tartrate 5 mg 02/24/21 09:54 03/08/21 23:25 Zolpidem 5 Mg Tab PO 5 mg QHS PRN Administration Sleep Nutrition/Malnutrition Assess - Dietary Evaluation Nutrition/Malnutrition Findings: Nutrition Notes Start: 02/19/21 10:48 Freq: Status: Active Protocol: Document 03/10/21 12:36 AKSHAT (Rec: 03/10/21 12:42 [facility] [email or web address]) Nutrition Notes Initial or Follow up Reassessment Current Diagnosis CKD (stage V CKD),Diabetes Other Pertinent Diagnosis COVID-19 (+), hepatic encephalopathy, ascites Current Diet Renal/Consistent CHO + Nepro once daily Labs/Tests POC Glu been >175 since last assessment Ammonia 117 (03/09) Pertinent Medications Reviewed Height 5 ft 11 in Weight 68.9 kg [place] Body Weight (kg) 78.18 BMI 21.2 Weight Status Appropriate Subjective/Other Information Pt has consumed 61% of meals since last assessment. Percent of energy/protein needs met: 68% energy 57% pro Burn Absent Trauma Absent #2 Nutrition Diagnosis Increased nutrient needs ( specify in comment below) Diagnosis Progress(for reassessment Continues documentation) #1 Nutrition Diagnosis Malnutrition Diagnosis Progress(for reassessment Continues documentation) Is patient on ventilator? No Is Patient Ambulatory and/or Out of Bed No REE-([facility]varisto-confined to bed) 1003.620 Calculation Used for Recommendations [facility] Additional Notes Pro needs >1.2g/kg/day Fluid needs 1-1.5L/day Nutrition Intervention Change Diet Order: Continue current diet order Add Supplement/Snack (indicate name/kcal Nepro daily /protein ) Provides kCal: 425 Provides Protein (gm) 19 Goal #1 PO intake of meals plus ONS to meet at least 75% energy and pro needs Goal #2 Wound healing Follow-Up By: 03/13/21 Additional Comments F/U: intakes (meals/ONS)
[2021-03-11] MEDS: allopurinoL 100 MG TAB PO SCH (09:37)
[2021-03-11] MEDS: RIFAXIMIN 550 MG TAB PO SCH ×2 (09:37→23:35)
[2021-03-11] MEDS: CALCIUM ACETATE 667 MG CAP PO SCH ×3 (09:37→17:29)
[2021-03-11] MEDS: INSULIN LISPRO 100 UNIT/ML SUB-Q SCH ×4 (09:37→23:34)
[2021-03-11] MEDS: FAMOTIDINE 20 MG TAB PO SCH (09:37)
[2021-03-11] MEDS: PROPRANOLOL 10 MG TAB PO SCH ×2 (09:38→23:34)
--- NOTE | 2021-03-11 12:16 | Progress Note ---
Assessment and Plan 1. ESRD: Patient is on maintenance hemodialysis three times a week, MWF schedule. Meds dosage based on GFR. Missed HD 02/18. Hemodialysis: 02/19, 02/20, 02/22, 02/25, 02/27, 03/01, 03/04, 03/06, 03/08. 2. FEN: Hyperkalemia, improved. Monitor lytes and volume status. 3. Anemia, POA: 2/2 ESRD and Liver disease. Epogen with HD. PRBC as needed. 4. Cirrhosis with h/o hepatic encephalopathy: Lactulose. Monitor. 5. DM type 2 uncontrolled: SSI. Monitor. 6. Thrombocytopenia, POA: 7. Hypertension: Monitor BP. Adjust meds as appropriate. Await placement. Subjective: Patient was seen and examined at the bedside. General Appearance: General appearance: well-developed, appears stated age, not in distress HEENT: ATNC, pupils equal Neck: trachea midline Respiratory: ctab Heart: regular, S1S2, no murmur Abdomen: soft, bowel sounds heard, not tender Integumentary: no rash, warm and dry Neurologic: lethargic, non-verbal Ext: no edema, R BKA Hemodialysis access: R arm AVF Subjective Date of service: 03/11/21 Objective - Lab 03/08/21 07:06 03/07/21 05:23 Most recent lab results Calcium 8.4 mg/dL (8.4-10.2) 03/07/21 05:23 Magnesium 2.10 mg/dL (1.7-2.3) 02/17/21 02:24 Medications & Allergies - Medications Allergies/Adverse Reactions: Allergies No Known Allergies Allergy (Verified 02/16/21 18:26) Home Medications: Home Medications Medication Instructions Recorded Confirmed Last Taken Type Calcium Acetate [Phoslo] 1,334 mg PO TIDWM #90 capsule 03/01/21 Unknown Rx Famotidine [Pepcid] 20 mg PO QAM #30 tablet 03/01/21 Unknown Rx Lactulose [Cephulac] 20 gm PO Q8HR 30 Days 03/01/21 Unknown Rx Lispro Insulin [HumaLOG] See Protocol SQ ACHS 30 Days 03/01/21 Unknown Rx allopurinoL [Zyloprim] 100 mg PO QDAY #30 tablet 03/01/21 Unknown Rx propranoloL [Inderal] 20 mg PO BID #60 tablet 03/01/21 Unknown Rx Active Medications: Generic Name Dose Route Start Last Admin Trade Name Freq PRN Reason Stop Dose Admin Acetaminophen 650 mg 02/18/21 22:38 03/09/21 13:15 Acetaminophen 325 Mg Tab PO 650 mg Q4H PRN Administration Pain MILD(1-3)/Fever >100.5/MOLINA Albuterol 2.5 mg 02/18/21 22:38 Albuterol 2.5 Mg/3 Ml Nebu IH Q3HRT PRN Shortness Of Breath Allopurinol 100 mg 02/20/21 10:00 03/11/21 09:37 Allopurinol 100 Mg Tab PO 100 mg QDAY LEYLA Administration Calcium Acetate 1,334 mg 02/20/21 08:30 03/11/21 09:37 Calcium Acetate 667 Mg Cap PO 1,334 mg TIDWM LEYLA Administration Dextrose 0 ml 02/18/21 23:00 02/25/21 16:56 Dextrose 50% In Water (25gm) 50 Ml Syringe IV 50 ml Q30MIN PRN Administration Hypoglycemia Protocol Diphenhydramine HCl 25 mg 02/23/21 09:10 03/01/21 10:30 Diphenhydramine 25 Mg Cap PO 25 mg BID PRN Administration Itching Famotidine 20 mg 02/19/21 10:00 03/11/21 09:37 Famotidine 20 Mg Tab PO 20 mg QAM LEYLA Administration Hydralazine HCl 10 mg 02/18/21 22:56 Hydralazine 20 Mg/1 Ml Inj IV Q6H PRN htn Sodium Chloride 100 mls @ 999 mls/hr 02/19/21 09:06 Nacl 0.9% IV OLIVIA PRN Hypotension Insulin Glargine 10 units 03/09/21 22:00 03/10/21 22:28 Insulin Glargine 100 Units/Ml SUB-Q 10 units QHS LEYLA Administration Insulin Human Lispro 0 unit 03/09/21 22:00 03/11/21 09:37 Insulin Lispro 100 Unit/Ml SUB-Q 3 unit ACHS LEYLA Administration Protocol Lactulose 20 gm 03/09/21 18:00 03/11/21 06:13 Lactulose 20 Gm/30 Ml Oral Liqd PO 20 gm Q6HR LEYLA Administration Ondansetron HCl 4 mg 02/18/21 22:38 02/28/21 12:32 Ondansetron 4 Mg/2 Ml Inj IV 4 mg Q8H PRN Administration Nausea And Vomiting Polyethylene Glycol 17 gm 02/24/21 12:08 02/24/21 12:47 Polyethylene Glycol 3350 17 Gm Powder PO 17 gm QDAY PRN Administration Constipation Propranolol HCl 20 mg 02/20/21 10:00 03/11/21 09:38 Propranolol 10 Mg Tab PO 20 mg BID LEYLA Administration Rifaximin 550 mg 03/10/21 12:00 03/11/21 09:37 Rifaximin 550 Mg Tab PO 550 mg BID LEYLA Administration Sodium Chloride 10 ml 02/19/21 10:00 03/11/21 09:38 Sodium Chloride 0.9% 10 Ml Flush Syringe IV 10 ml BID LEYLA Administration Sodium Chloride 10 ml 02/18/21 22:38 Sodium Chloride 0.9% 10 Ml Flush Syringe IV PRN PRN LINE FLUSH Tramadol HCl 50 mg 02/24/21 13:20 02/25/21 10:17 Tramadol 50 Mg Tab PO 50 mg Q6H PRN Administration Pain, Moderate (4-6) Zolpidem Tartrate 5 mg 02/24/21 09:54 03/08/21 23:25 Zolpidem 5 Mg Tab PO 5 mg QHS PRN Administration Sleep
[2021-03-11] MEDS: INSULIN GLARGINE 100 UNITS/ML SUB-Q SCH (23:34)
[2021-03-12] MEDS: LACTULOSE 20 GM/30 ML ORAL LIQD PO SCH ×4 (06:07→22:59)
--- NOTE | 2021-03-12 09:09 | Progress Note ---
Assessment and Plan 1. ESRD: Patient is on maintenance hemodialysis three times a week, MWF schedule. Meds dosage based on GFR. Missed HD 02/18. Hemodialysis: 02/19, 02/20, 02/22, 02/25, 02/27, 03/01, 03/04, 03/06, 03/08, 03/11. 2. FEN: Hyperkalemia, improved. Monitor lytes and volume status. 3. Anemia, POA: 2/2 ESRD and Liver disease. Epogen with HD. PRBC as needed. 4. Cirrhosis with h/o hepatic encephalopathy: Lactulose. Monitor. 5. DM type 2 uncontrolled: SSI. Monitor. 6. Thrombocytopenia, POA: 7. Hypertension: Monitor BP. Adjust meds as appropriate. Await placement. Subjective: Patient was seen and examined at the bedside. General Appearance: General appearance: well-developed, appears stated age, not in distress HEENT: ATNC, pupils equal Neck: trachea midline Respiratory: ctab Heart: regular, S1S2, no murmur Abdomen: soft, bowel sounds heard, not tender Integumentary: no rash, warm and dry Neurologic: lethargic, non-verbal, not following any command Ext: no edema, R BKA Hemodialysis access: R arm AVF Subjective Date of service: 03/12/21 Objective - Vital Signs Vital signs: Vital Signs - 12hr 03/11/21 03/12/21 21:43 04:11 Temperature 97.9 F 99.5 F Pulse Rate 79 76 Respiratory 18 18 Rate Blood Pressure 150/51 141/53 O2 Sat by Pulse 98 94 Oximetry - Lab 03/08/21 07:06 03/07/21 05:23 Most recent lab results Calcium 8.4 mg/dL (8.4-10.2) 03/07/21 05:23 Magnesium 2.10 mg/dL (1.7-2.3) 02/17/21 02:24 Medications & Allergies - Medications Allergies/Adverse Reactions: Allergies No Known Allergies Allergy (Verified 02/16/21 18:26) Home Medications: Home Medications Medication Instructions Recorded Confirmed Last Taken Type Calcium Acetate [Phoslo] 1,334 mg PO TIDWM #90 capsule 03/01/21 Unknown Rx Famotidine [Pepcid] 20 mg PO QAM #30 tablet 03/01/21 Unknown Rx Lactulose [Cephulac] 20 gm PO Q8HR 30 Days 03/01/21 Unknown Rx Lispro Insulin [HumaLOG] See Protocol SQ ACHS 30 Days 03/01/21 Unknown Rx allopurinoL [Zyloprim] 100 mg PO QDAY #30 tablet 03/01/21 Unknown Rx propranoloL [Inderal] 20 mg PO BID #60 tablet 03/01/21 Unknown Rx Active Medications: Generic Name Dose Route Start Last Admin Trade Name Freq PRN Reason Stop Dose Admin Acetaminophen 650 mg 02/18/21 22:38 03/09/21 13:15 Acetaminophen 325 Mg Tab PO 650 mg Q4H PRN Administration Pain MILD(1-3)/Fever >100.5/MOLINA Albuterol 2.5 mg 02/18/21 22:38 Albuterol 2.5 Mg/3 Ml Nebu IH Q3HRT PRN Shortness Of Breath Allopurinol 100 mg 02/20/21 10:00 03/11/21 09:37 Allopurinol 100 Mg Tab PO 100 mg QDAY LEYLA Administration Calcium Acetate 1,334 mg 02/20/21 08:30 03/11/21 17:29 Calcium Acetate 667 Mg Cap PO Not Given TIDWM LEYLA Dextrose 0 ml 02/18/21 23:00 02/25/21 16:56 Dextrose 50% In Water (25gm) 50 Ml Syringe IV 50 ml Q30MIN PRN Administration Hypoglycemia Protocol Diphenhydramine HCl 25 mg 02/23/21 09:10 03/01/21 10:30 Diphenhydramine 25 Mg Cap PO 25 mg BID PRN Administration Itching Famotidine 20 mg 02/19/21 10:00 03/11/21 09:37 Famotidine 20 Mg Tab PO 20 mg QAM LEYLA Administration Hydralazine HCl 10 mg 02/18/21 22:56 Hydralazine 20 Mg/1 Ml Inj IV Q6H PRN htn Sodium Chloride 100 mls @ 999 mls/hr 02/19/21 09:06 Nacl 0.9% IV OLIVIA PRN Hypotension Insulin Glargine 10 units 03/09/21 22:00 03/11/21 23:34 Insulin Glargine 100 Units/Ml SUB-Q 10 units QHS LEYLA Administration Insulin Human Lispro 0 unit 03/09/21 22:00 03/11/21 23:34 Insulin Lispro 100 Unit/Ml SUB-Q 10 unit ACHS LEYLA Administration Protocol Lactulose 20 gm 03/09/21 18:00 03/12/21 06:07 Lactulose 20 Gm/30 Ml Oral Liqd PO 20 gm Q6HR LEYLA Administration Ondansetron HCl 4 mg 02/18/21 22:38 02/28/21 12:32 Ondansetron 4 Mg/2 Ml Inj IV 4 mg Q8H PRN Administration Nausea And Vomiting Polyethylene Glycol 17 gm 02/24/21 12:08 02/24/21 12:47 Polyethylene Glycol 3350 17 Gm Powder PO 17 gm QDAY PRN Administration Constipation Propranolol HCl 20 mg 02/20/21 10:00 03/11/21 23:34 Propranolol 10 Mg Tab PO 20 mg BID LEYLA Administration Rifaximin 550 mg 03/10/21 12:00 03/11/21 23:35 Rifaximin 550 Mg Tab PO 550 mg BID LEYLA Administration Sodium Chloride 10 ml 02/19/21 10:00 03/11/21 23:35 Sodium Chloride 0.9% 10 Ml Flush Syringe IV 10 ml BID LEYLA Administration Sodium Chloride 10 ml 02/18/21 22:38 Sodium Chloride 0.9% 10 Ml Flush Syringe IV PRN PRN LINE FLUSH Tramadol HCl 50 mg 02/24/21 13:20 02/25/21 10:17 Tramadol 50 Mg Tab PO 50 mg Q6H PRN Administration Pain, Moderate (4-6) Zolpidem Tartrate 5 mg 02/24/21 09:54 03/08/21 23:25 Zolpidem 5 Mg Tab PO 5 mg QHS PRN Administration Sleep
[2021-03-12] MEDS: CALCIUM ACETATE 667 MG CAP PO SCH ×3 (09:26→18:06)
[2021-03-12] MEDS: FAMOTIDINE 20 MG TAB PO SCH (09:26)
[2021-03-12] MEDS: INSULIN LISPRO 100 UNIT/ML SUB-Q SCH ×4 (09:26→22:58)
[2021-03-12] MEDS: PROPRANOLOL 10 MG TAB PO SCH ×2 (09:26→22:58)
[2021-03-12] MEDS: allopurinoL 100 MG TAB PO SCH (09:26)
[2021-03-12] MEDS: RIFAXIMIN 550 MG TAB PO SCH ×2 (09:26→22:59)
--- NOTE | 2021-03-12 11:11 | Progress Note ---
Assessment and Plan Assessment and plan: 55 YO Male with ESRD on HD, Noncompliance with outpatient dialysis, Anemia, HBV, Chronic Liver Disease, Cirrhosis complicated by Esophageal Varices, HTN, Debility, DM presents to ED with confusion with diminished cognition. Patient family report the patient was "not acting like himself" and found to have worsening confusion over the past 2 days. In the ER the patient was found to have hepatic encephalopathy complicated by diminished cognition, end-stage renal disease in need of urgent dialysis, as well as uncontrolled diabetes, and acidosis. Nephrology team consulted in ED and patient was then admitted for further evaluation and Mx. A/p -- Hepatic encephalopathy due to hepatic cirrhosis cont lactulose, Neuro check, seizure precaution, aspiration precaution, fall precautions, continue to monitor. -- End stage renal disease Nephrology team consulted, strict I's/O, monitor urine output every shift, dialysis as per renal team, avoid nephrotoxic agents. --Metabolic Acidosis Nephrology team consulted, dialysis as per renal team. --Hyponatremia Monitor BMP, monitor fluid balance. -- Hyperammonemia Continue lactulose --Diabetes mellitus with hyperglycemia Consistent carb diet, SSI -- hyperkalemia, Improvement with dialysis --Ascitis, s/p paracentesis drained 6.2l of ascitic fluid --Sacral wound, cont wound care -- Moderate Protein Calorie Malnutrition, nutrition consulted --Noncompliance, counseled for medication compliance --DVT Px, SCD --DNR code status --Disposition: needs placement, CM waiting for placement Daily clinical course: 02/19: Resume dialysis will adjust insulin for better coverage. Very poor progno sis considering poor medical compliance. Agree with hospice recommendation. Will obtain wound care to continue to manage. Monitor anemia as patient was pretty anemic during the last hospitalization. Required transfusion. 02/20: Continues to undergo dialysis no change in mental status noted. Tolerating medications. Blood sugar mildly elevated adjusted insulin yesterday when awake for the patient received a dose today and if still elevated will adjust. Again case management is working on discharge plan for this patient as he is pending placement 02/21 patient complains of right hip pain. He said he fell few weeks ago and is concerned about another fracture. He had a fracture about 8 weeks ago and had surgery. Will obtain X ray right hip. Patient pending placement. 02/22 Patient seen in Dialysis Unit. He states hip pain improved. No other complaints. Right hip X ray done yesterday report read may be healing fracture or acute fracture. Will discuss with Orthopedic Surgeon Patient pending placement 02/23 Less hip pain. Today complains of generalized itching. Will start Benadryl po prn. Orthopedic consulted to evaluate right hip. Patient pending placement 02/24 Less hip pain. Generalized itching now resolved. Orthopedic consulted to evaluate right hip. He complains of sleeplessness. Will give Ambien prn Patient pending placement 02/25 Patient requested DNR status yesterday. I discussed with him and he signed forms. He also complains of worsening abdominal distension and requested ta pping, Will order paracentesis. Right hip evaluated by Dr. Trivedi and conservative management recommended. 02/26: Plan for paracentesis today. Need to set up dialysis as outpatient. training project manager working on discharge planning. 02/27: Patient did not sign the consent for paracentesis yesterday so paracentesis was done today and aspirated 6.2L ascitic fluid. Patient refusing medication per RN. Getting dialysis. Patient noted slightly altered today, will place NG tube remains altered and keep refusing oral meds, order for ammonia level and will cont lactulose. 02/28: Patient appears much more calm and cooperative today. He stated that he has been refusing procedure and medication as he believes he was not in the right state of his mind. Patient acknowledges the importance of being compliant and he promises that he will take the medications as he will be given. Discharge planning per case management as patient would need outpatient dialysis center set up and personal custodial set up. 03/01/21: Patient has long-term setting but according to machine adjuster leader case trim no available RN to accept the patient till Thursday. Continue supportive care. Discharge pending on placement. 03/02/21 -03/04/21: Discharge pending on placement, continue to monitor clinically. Continue current management and plan and supportive care. Patient need SNF placement. 03/05/2021; Awaiting SNF placement for discharge. Prognosis is very poor. Patient is nonresponsive. I try to reach to his son over the phone but could not get in touch. Patient is appropriate for hospice care. 03/06/2021; patient is awaiting SNF placement. Patient was alert and oriented. No confusion. Patient is stable to be discharged back to SNF. 03/07/2021; patient has hemoglobin of 6.8 this morning. A unit of blood ordered. Will monitor H&H. Nephrology is following for dialysis. 03/08/2021; patient's hemoglobin was 6.8 yesterday and transfused a unit of blood. I ordered yesterday to do posttransfusion H&H and was not done. CBC was ordered to be done this morning but was not done. COVID-19 test was done on 03/06 and positive. Nephrology is following the patient for his dialysis. Plan is to discharge him to SNF. Will follow with case management because patient is Covid positive. 03/09/2021; patient's repeat Covid test on 03/08/2021 was positive. Patient is pending for SNF Placement. Patient had hypoglycemia yesterday and patient was placed on Lantus and his sliding scale adjusted to high dose. Will monitor and adjust as needed. 03/10/2021; pending SNF placement. Covid test was positive on and . 03/11/2021; patient has hepatic encephalopathy and his ammonia level is very high, patient is currently on lactulose and rifaximin. Ammonia level is trending down. Nephrology is following for dialysis. Patient has positive Covid test last one was on 03/08, that makes placement difficult. Continue with case management. 03/12: Still awaiting placement, discussed with nursing staff to monitor mental s tatus changes. Will check ammonia level. Continue to adjust blood sugar. Complicated by COVID POSITIVELY. Awaiting placement for the patient. Also dialysis chair time. I have discussed with case management as my understanding was that patient was to go for hospice but this plan appears to have changed possibly not clear to me at this time History Interval history: Patient seen and examined no acute distress. Was very lethargic and stuporous. Hospitalist Physical - Physical exam Narrative exam: VITAL SIGNS: Reviewed. GENERAL: The patient appears normally developed, lethargic vital signs as documented. HEAD: No signs of head trauma. EYES: Pupils are equal. Extraocular motions intact. Icteric sclera EARS: Hearing grossly intact. MOUTH: Oropharynx is normal. NECK: No adenopathy, no JVD. CHEST: Chest with diminished breath sounds bilaterally. No wheezes, rales, or rhonchi. CARDIAC: Regular rate and rhythm. S1 and S2, without murmurs, gallops, or rubs. VASCULAR: No Edema. Peripheral pulses normal and equal in all extremities. ABDOMEN: Soft, non tender and non distended. No rebound or guarding, and no masses palpated. Bowel Sounds normal. MUSCULOSKELETAL: Right BKA extremities without clubbing, cyanosis or edema. NEUROLOGIC EXAM: Lethargic and stuporous. No focal sensory or strength deficits. PSYCHIATRIC: Unable to clearly examine SKIN: Jaundice detail exam as documented in skin assessment - Constitutional Vitals: Temp Pulse Resp BP Pulse Ox 99.5 F 76 18 141/53 94 03/12/21 04:11 03/12/21 04:11 03/12/21 04:11 03/12/21 04:11 03/12/21 04:11 General appearance: Present: no acute distress, well-nourished Results - Labs CBC & Chem 7: 03/08/21 07:06 03/07/21 05:23 Labs: Laboratory Last Values WBC 2.7 K/mm3 (4.5-11.0) L 03/08/21 07:06 RBC 2.40 M/mm3 (3.65-5.03) L 03/08/21 07:06 Hgb 7.5 gm/dl (11.8-15.2) L 03/08/21 07:06 Hct 22.4 % (35.5-45.6) L 03/08/21 07:06 MCV 93 fl (84-94) 03/08/21 07:06 MCH 32 pg (28-32) 03/08/21 07:06 MCHC 34 % (32-34) 03/08/21 07:06 RDW 17.3 % (13.2-15.2) H 03/08/21 07:06 Plt Count 82 K/mm3 (140-440) L 03/08/21 07:06 Lymph % (Auto) 17.4 % (13.4-35.0) 03/08/21 07:06 [place] % (Auto) 14.8 % (0.0-7.3) H 03/08/21 07:06 Eos % (Auto) 1.1 % (0.0-4.3) 03/08/21 07:06 Baso % (Auto) 0.5 % (0.0-1.8) 03/08/21 07:06 Lymph # (Auto) 0.5 K/mm3 (1.2-5.4) L 03/08/21 07:06 [place] # (Auto) 0.4 K/mm3 (0.0-0.8) 03/08/21 07:06 Eos # (Auto) 0.0 K/mm3 (0.0-0.4) 03/08/21 07:06 Baso # (Auto) 0.0 K/mm3 (0.0-0.1) 03/08/21 07:06 Add Manual Diff Complete 03/07/21 05:23 Total Counted 100 03/07/21 05:23 Seg Neutrophils % 66.2 % (40.0-70.0) 03/08/21 07:06 Seg Neuts % (Manual) 78.0 % (40.0-70.0) H 03/07/21 05:23 Lymphocytes % (Manual) 13.0 % (13.4-35.0) L 03/07/21 05:23 Monocytes % (Manual) 9.0 % (0.0-7.3) H 03/07/21 05:23 Nucleated RBC % Not Reportable 03/07/21 05:23 Seg Neutrophils # 1.8 K/mm3 (1.8-7.7) 03/08/21 07:06 Seg Neutrophils # Man 2.0 K/mm3 (1.8-7.7) 03/07/21 05:23 Band Neutrophils # 0.0 K/mm3 03/07/21 05:23 Lymphocytes # (Manual) 0.3 K/mm3 (1.2-5.4) L 03/07/21 05:23 Abs React Lymphs (Man) 0.0 K/mm3 03/07/21 05:23 Monocytes # (Manual) 0.2 K/mm3 (0.0-0.8) 03/07/21 05:23 Eosinophils # (Manual) 0.0 K/mm3 (0.0-0.4) 03/07/21 05:23 Basophils # (Manual) 0.0 K/mm3 (0.0-0.1) 03/07/21 05:23 Metamyelocytes # 0.0 K/mm3 03/07/21 05:23 Myelocytes # 0.0 K/mm3 03/07/21 05:23 Promyelocytes # 0.0 K/mm3 03/07/21 05:23 Blast Cells # 0.0 K/mm3 03/07/21 05:23 WBC Morphology Not Reportable 03/07/21 05:23 Hypersegmented Neuts Not Reportable 03/07/21 05:23 Hyposegmented Neuts Not Reportable 03/07/21 05:23 Hypogranular Neuts Not Reportable 03/07/21 05:23 Smudge Cells Not Reportable 03/07/21 05:23 Toxic Granulation Not Reportable 03/07/21 05:23 Toxic Vacuolation Not Reportable 03/07/21 05:23 Dohle Bodies Not Reportable 03/07/21 05:23 Pelger-Huet Anomaly Not Reportable 03/07/21 05:23 Cosme Rods Not Reportable 03/07/21 05:23 Platelet Estimate Consistent w auto 03/07/21 05:23 Clumped Platelets Not Reportable 03/07/21 05:23 Plt Clumps, EDTA Not Reportable 03/07/21 05:23 Large Platelets Not Reportable 03/07/21 05:23 Giant Platelets Not Reportable 03/07/21 05:23 Platelet Satelliting Not Reportable 03/07/21 05:23 Plt Morphology Comment Not Reportable 03/07/21 05:23 RBC Morphology Not Reportable 03/07/21 05:23 Dimorphic RBCs Not Reportable 03/07/21 05:23 Polychromasia Not Reportable 03/07/21 05:23 Hypochromasia Not Reportable 03/07/21 05:23 Poikilocytosis Not Reportable 03/07/21 05:23 Anisocytosis Few 03/07/21 05:23 Microcytosis Not Reportable 03/07/21 05:23 Macrocytosis Not Reportable 03/07/21 05:23 Spherocytes Not Reportable 03/07/21 05:23 Pappenheimer Bodies Not Reportable 03/07/21 05:23 Sickle Cells Not Reportable 03/07/21 05:23 Target Cells Not Reportable 03/07/21 05:23 Tear Drop Cells Not Reportable 03/07/21 05:23 Ovalocytes Not Reportable 03/07/21 05:23 Helmet Cells Not Reportable 03/07/21 05:23 Mercado-Mallow Bodies Not Reportable 03/07/21 05:23 [place] Rings Not Reportable 03/07/21 05:23 Kathy Cells Not Reportable 03/07/21 05:23 Bite Cells Not Reportable 03/07/21 05:23 Crenated Cell Not Reportable 03/07/21 05:23 Elliptocytes Not Reportable 03/07/21 05:23 Acanthocytes (Spur) Not Reportable 03/07/21 05:23 Rouleaux Not Reportable 03/07/21 05:23 Hemoglobin C Crystals Not Reportable 03/07/21 05:23 Schistocytes Not Reportable 03/07/21 05:23 Malaria parasites Not Reportable 03/07/21 05:23 Samir Bodies Not Reportable 03/07/21 05:23 Hem Pathologist Commnt No 03/07/21 05:23 PT 13.7 Sec. (12.2-14.9) 02/26/21 04:33 INR 1.00 (0.87-1.13) 02/26/21 04:33 Sodium 134 mmol/L (137-145) L 03/07/21 05:23 Potassium 3.8 mmol/L (3.6-5.0) 03/07/21 05:23 Chloride 93.6 mmol/L (98-107) L 03/07/21 05:23 Carbon Dioxide 31 mmol/L (22-30) H 03/07/21 05:23 Anion Gap 13 mmol/L 03/07/21 05:23 BUN 38 mg/dL (9-20) H 03/07/21 05:23 Creatinine 4.5 mg/dL (0.8-1.3) H 03/07/21 05:23 Estimated GFR 14 ml/min 03/07/21 05:23 BUN/Creatinine Ratio 8 % 03/07/21 05:23 Glucose 284 mg/dL (75-100) H 03/07/21 05:23 POC Glucose 209 mg/dL (70-105) H 03/12/21 08:18 Hemoglobin A1c 7.4 % (4-6) H 02/26/21 04:33 Calcium 8.4 mg/dL (8.4-10.2) 03/07/21 05:23 Magnesium 2.10 mg/dL (1.7-2.3) 02/17/21 02:24 Total Bilirubin 0.60 mg/dL (0.1-1.2) 02/17/21 02:24 AST 18 units/L (5-40) 02/17/21 02:24 ALT 19 units/L (7-56) 02/17/21 02:24 Alkaline Phosphatase 171 units/L (35-129) H 02/17/21 02:24 Ammonia 84.0 umol/L (25-60) H 03/11/21 05:45 Total Creatine Kinase 86 units/L (55-170) 02/17/21 02:24 Total Protein 6.2 g/dL (6.3-8.2) L 02/17/21 02:24 Albumin 3.0 g/dL (3.9-5) L 02/17/21 02:24 Albumin/Globulin Ratio 0.9 % 02/17/21 02:24 TSH 0.986 mlU/mL (0.270-4.200) 02/17/21 02:24 Urine Color Yellow (Yellow) 02/17/21 Unknown Urine Turbidity Clear (Clear) 02/17/21 Unknown Urine pH 6.0 (5.0-7.0) 02/17/21 Unknown Ur Specific [place] 1.012 (1.003-1.030) 02/17/21 Unknown Urine Protein 100 mg/dl mg/dL (Negative) 02/17/21 Unknown Urine Glucose (UA) >=500 mg/dL (Negative) 02/17/21 Unknown Urine Ketones Neg mg/dL (Negative) 02/17/21 Unknown Urine Blood Neg (Negative) 02/17/21 Unknown Urine Nitrite Neg (Negative) 02/17/21 Unknown Urine Bilirubin Neg (Negative) 02/17/21 Unknown Urine Urobilinogen < 2.0 mg/dL (<2.0) 02/17/21 Unknown Ur Leukocyte Esterase Neg (Negative) 02/17/21 Unknown Urine WBC (Auto) 2.0 /HPF (0.0-6.0) 02/17/21 Unknown Urine RBC (Auto) 2.0 /HPF (0.0-6.0) 02/17/21 Unknown U Epithel Cells (Auto) < 1.0 /HPF (0-13.0) 02/17/21 Unknown Urine Bacteria (Auto) 1+ /HPF (Negative) 02/17/21 Unknown Salicylates < 0.3 mg/dL (2.8-20.0) L 02/17/21 02:24 Acetaminophen 5.0 ug/mL (10.0-30.0) L 02/17/21 02:24 Coronavirus (PCR) Positive (Negative) A 03/08/21 10:57 Hepatitis A IgM Ab Non-reactive (NonReactive) 02/28/21 12:37 Hep Bs Antigen Non-reactive (Negative) 02/28/21 12:37 Hep B Core IgM Ab Non-reactive (NonReactive) 02/28/21 12:37 Hepatitis C Antibody Non-reactive (NonReactive) 02/28/21 12:37 Blood Type A POSITIVE 03/07/21 06:31 Antibody Screen Negative 03/07/21 06:31 Crossmatch See Detail 03/07/21 06:31 Sr/IV: Voiding Method Incontinent Active Medications - Current Medications Current Medications: Generic Name Dose Route Start Last Admin Trade Name Freq PRN Reason Stop Dose Admin Acetaminophen 650 mg 02/18/21 22:38 03/09/21 13:15 Acetaminophen 325 Mg Tab PO 650 mg Q4H PRN Administration Pain MILD(1-3)/Fever >100.5/MOLINA Albuterol 2.5 mg 02/18/21 22:38 Albuterol 2.5 Mg/3 Ml Nebu IH Q3HRT PRN Shortness Of Breath Allopurinol 100 mg 02/20/21 10:00 03/12/21 09:26 Allopurinol 100 Mg Tab PO 100 mg QDAY LEYLA Administration Calcium Acetate 1,334 mg 02/20/21 08:30 03/12/21 09:26 Calcium Acetate 667 Mg Cap PO 1,334 mg TIDWM LEYLA Administration Dextrose 0 ml 02/18/21 23:00 02/25/21 16:56 Dextrose 50% In Water (25gm) 50 Ml Syringe IV 50 ml Q30MIN PRN Administration Hypoglycemia Protocol Diphenhydramine HCl 25 mg 02/23/21 09:10 03/01/21 10:30 Diphenhydramine 25 Mg Cap PO 25 mg BID PRN Administration Itching Famotidine 20 mg 02/19/21 10:00 03/12/21 09:26 Famotidine 20 Mg Tab PO 20 mg QAM LEYLA Administration Hydralazine HCl 10 mg 02/18/21 22:56 Hydralazine 20 Mg/1 Ml Inj IV Q6H PRN htn Sodium Chloride 100 mls @ 999 mls/hr 02/19/21 09:06 Nacl 0.9% IV OLIVIA PRN Hypotension Insulin Glargine 10 units 03/09/21 22:00 03/11/21 23:34 Insulin Glargine 100 Units/Ml SUB-Q 10 units QHS LEYLA Administration Insulin Human Lispro 0 unit 03/09/21 22:00 03/12/21 09:26 Insulin Lispro 100 Unit/Ml SUB-Q 4 unit ACHS LEYLA Administration Protocol Lactulose 20 gm 03/09/21 18:00 03/12/21 06:07 Lactulose 20 Gm/30 Ml Oral Liqd PO 20 gm Q6HR LEYLA Administration Ondansetron HCl 4 mg 02/18/21 22:38 02/28/21 12:32 Ondansetron 4 Mg/2 Ml Inj IV 4 mg Q8H PRN Administration Nausea And Vomiting Polyethylene Glycol 17 gm 02/24/21 12:08 02/24/21 12:47 Polyethylene Glycol 3350 17 Gm Powder PO 17 gm QDAY PRN Administration Constipation Propranolol HCl 20 mg 02/20/21 10:00 03/12/21 09:26 Propranolol 10 Mg Tab PO 20 mg BID LEYLA Administration Rifaximin 550 mg 03/10/21 12:00 03/12/21 09:26 Rifaximin 550 Mg Tab PO 550 mg BID LEYLA Administration Sodium Chloride 10 ml 02/19/21 10:00 03/12/21 09:27 Sodium Chloride 0.9% 10 Ml Flush Syringe IV 10 ml BID LEYLA Administration Sodium Chloride 10 ml 02/18/21 22:38 Sodium Chloride 0.9% 10 Ml Flush Syringe IV PRN PRN LINE FLUSH Tramadol HCl 50 mg 02/24/21 13:20 02/25/21 10:17 Tramadol 50 Mg Tab PO 50 mg Q6H PRN Administration Pain, Moderate (4-6) Zolpidem Tartrate 5 mg 02/24/21 09:54 03/08/21 23:25 Zolpidem 5 Mg Tab PO 5 mg QHS PRN Administration Sleep Nutrition/Malnutrition Assess - Dietary Evaluation Nutrition/Malnutrition Findings: Nutrition Notes Start: 02/19/21 10:48 Freq: Status: Active Protocol: Document 03/10/21 12:36 [email or web address] (Rec: 03/10/21 12:42 [facility] [id number]) Nutrition Notes Initial or Follow up Reassessment Current Diagnosis CKD (stage V CKD),Diabetes Other Pertinent Diagnosis COVID-19 (+), hepatic encephalopathy, ascites Current Diet Renal/Consistent CHO + Nepro once daily Labs/Tests POC Glu been >175 since last assessment Ammonia 117 (03/09) Pertinent Medications Reviewed Height 5 ft 11 in Weight 68.9 kg [place] Body Weight (kg) 78.18 BMI 21.2 Weight Status Appropriate Subjective/Other Information Pt has consumed 61% of meals since last assessment. Percent of energy/protein needs met: 68% energy 57% pro Burn Absent Trauma Absent #2 Nutrition Diagnosis Increased nutrient needs ( specify in comment below) Diagnosis Progress(for reassessment Continues documentation) #1 Nutrition Diagnosis Malnutrition Diagnosis Progress(for reassessment Continues documentation) Is patient on ventilator? No Is Patient Ambulatory and/or Out of Bed No REE-([facility]-confined to bed) [phone] Calculation Used for Recommendations [facility] Additional Notes Pro needs >1.2g/kg/day Fluid needs 1-1.5L/day Nutrition Intervention Change Diet Order: Continue current diet order Add Supplement/Snack (indicate name/kcal Nepro daily /protein ) Provides kCal: 425 Provides Protein (gm) 19 Goal #1 PO intake of meals plus ONS to meet at least 75% energy and pro needs Goal #2 Wound healing Follow-Up By: 03/13/21 Additional Comments F/U: intakes (meals/ONS)
[2021-03-12] MEDS: D5W/0.45% NACL 1,000 ML IV SCH (15:21)
[2021-03-12] MEDS: INSULIN GLARGINE 100 UNITS/ML SUB-Q SCH (22:59)
[2021-03-13] MEDS: LACTULOSE 20 GM/30 ML ORAL LIQD PO SCH ×4 (05:51→23:15)
--- NOTE | 2021-03-13 09:55 | Progress Note ---
Assessment and Plan 1. ESRD: Patient is on maintenance hemodialysis three times a week, MWF schedule. Meds dosage based on GFR. Missed HD 02/18. Hemodialysis: 02/19, 02/20, 02/22, 02/25, 02/27, 03/01, 03/04, 03/06, 03/08, 03/11. 2. FEN: Hyperkalemia, improved. Monitor lytes and volume status. 3. Anemia, POA: 2/2 ESRD and Liver disease. Epogen with HD. PRBC as needed. 4. Cirrhosis with h/o hepatic encephalopathy: Lactulose. Monitor. 5. DM type 2: SSI. Monitor. 6. Thrombocytopenia, POA: 7. Hypertension: Monitor BP. Adjust meds as appropriate. Await placement. Subjective: Patient was seen and examined at the bedside. General Appearance: General appearance: well-developed, appears stated age, not in distress HEENT: ATNC, pupils equal Neck: trachea midline Respiratory: ctab Heart: regular, S1S2, no murmur Abdomen: soft, bowel sounds heard, not tender Integumentary: no rash, warm and dry Neurologic: lethargic, non-verbal, not following any command Ext: no edema, R BKA Hemodialysis access: R arm AVF Subjective Date of service: 03/13/21 Objective - Vital Signs Vital signs: Vital Signs - 12hr 03/12/21 03/13/21 22:23 05:23 Temperature 97.8 F 99.8 F H Pulse Rate 73 74 Respiratory 18 18 Rate Blood Pressure 150/63 160/60 O2 Sat by Pulse 99 96 Oximetry - Lab 03/08/21 07:06 03/07/21 05:23 Most recent lab results Calcium 8.4 mg/dL (8.4-10.2) 03/07/21 05:23 Magnesium 2.10 mg/dL (1.7-2.3) 02/17/21 02:24 Medications & Allergies - Medications Allergies/Adverse Reactions: Allergies No Known Allergies Allergy (Verified 02/16/21 18:26) Home Medications: Home Medications Medication Instructions Recorded Confirmed Last Taken Type Calcium Acetate [Phoslo] 1,334 mg PO TIDWM #90 capsule 03/01/21 Unknown Rx Famotidine [Pepcid] 20 mg PO QAM #30 tablet 03/01/21 Unknown Rx Lactulose [Cephulac] 20 gm PO Q8HR 30 Days 03/01/21 Unknown Rx Lispro Insulin [HumaLOG] See Protocol SQ ACHS 30 Days 03/01/21 Unknown Rx allopurinoL [Zyloprim] 100 mg PO QDAY #30 tablet 03/01/21 Unknown Rx propranoloL [Inderal] 20 mg PO BID #60 tablet 03/01/21 Unknown Rx Active Medications: Generic Name Dose Route Start Last Admin Trade Name Freq PRN Reason Stop Dose Admin Acetaminophen 650 mg 02/18/21 22:38 03/09/21 13:15 Acetaminophen 325 Mg Tab PO 650 mg Q4H PRN Administration Pain MILD(1-3)/Fever >100.5/MOLINA Albuterol 2.5 mg 02/18/21 22:38 Albuterol 2.5 Mg/3 Ml Nebu IH Q3HRT PRN Shortness Of Breath Allopurinol 100 mg 02/20/21 10:00 03/12/21 09:26 Allopurinol 100 Mg Tab PO 100 mg QDAY LEYLA Administration Calcium Acetate 1,334 mg 02/20/21 08:30 03/12/21 18:06 Calcium Acetate 667 Mg Cap PO Not Given TIDWM LEYLA Dextrose 0 ml 02/18/21 23:00 02/25/21 16:56 Dextrose 50% In Water (25gm) 50 Ml Syringe IV 50 ml Q30MIN PRN Administration Hypoglycemia Protocol Diphenhydramine HCl 25 mg 02/23/21 09:10 03/01/21 10:30 Diphenhydramine 25 Mg Cap PO 25 mg BID PRN Administration Itching Famotidine 20 mg 02/19/21 10:00 03/12/21 09:26 Famotidine 20 Mg Tab PO 20 mg QAM LEYLA Administration Hydralazine HCl 10 mg 02/18/21 22:56 Hydralazine 20 Mg/1 Ml Inj IV Q6H PRN htn Sodium Chloride 100 mls @ 999 mls/hr 02/19/21 09:06 Nacl 0.9% IV OLIVIA PRN Hypotension Dextrose/Sodium Chloride 1,000 mls @ 50 mls/hr 03/12/21 15:00 03/12/21 15:21 D5/0.45ns IV 50 mls/hr DIRECT LEYLA Administration Insulin Glargine 10 units 03/09/21 22:00 03/12/21 22:59 Insulin Glargine 100 Units/Ml SUB-Q 10 units QHS LEYLA Administration Insulin Human Lispro 0 unit 03/09/21 22:00 03/12/21 22:58 Insulin Lispro 100 Unit/Ml SUB-Q 3 unit ACHS LEYLA Administration Protocol Lactulose 20 gm 03/09/21 18:00 03/13/21 05:51 Lactulose 20 Gm/30 Ml Oral Liqd PO 20 gm Q6HR LEYLA Administration Ondansetron HCl 4 mg 02/18/21 22:38 02/28/21 12:32 Ondansetron 4 Mg/2 Ml Inj IV 4 mg Q8H PRN Administration Nausea And Vomiting Polyethylene Glycol 17 gm 02/24/21 12:08 02/24/21 12:47 Polyethylene Glycol 3350 17 Gm Powder PO 17 gm QDAY PRN Administration Constipation Propranolol HCl 20 mg 02/20/21 10:00 03/12/21 22:58 Propranolol 10 Mg Tab PO 20 mg BID LEYLA Administration Rifaximin 550 mg 03/10/21 12:00 03/12/21 22:59 Rifaximin 550 Mg Tab PO 550 mg BID LEYLA Administration Sodium Chloride 10 ml 02/19/21 10:00 03/12/21 22:59 Sodium Chloride 0.9% 10 Ml Flush Syringe IV 10 ml BID LEYLA Administration Sodium Chloride 10 ml 02/18/21 22:38 Sodium Chloride 0.9% 10 Ml Flush Syringe IV PRN PRN LINE FLUSH Tramadol HCl 50 mg 02/24/21 13:20 02/25/21 10:17 Tramadol 50 Mg Tab PO 50 mg Q6H PRN Administration Pain, Moderate (4-6) Zolpidem Tartrate 5 mg 02/24/21 09:54 03/08/21 23:25 Zolpidem 5 Mg Tab PO 5 mg QHS PRN Administration Sleep
[2021-03-13] MEDS: CALCIUM ACETATE 667 MG CAP PO SCH ×3 (10:28→16:59)
[2021-03-13] MEDS: PROPRANOLOL 10 MG TAB PO SCH ×2 (10:56→23:15)
[2021-03-13] MEDS: INSULIN LISPRO 100 UNIT/ML SUB-Q SCH ×4 (10:57→23:13)
--- NOTE | 2021-03-13 12:22 | Progress Note ---
Assessment and Plan Assessment and plan: 55 YO Male with ESRD on HD, Noncompliance with outpatient dialysis, Anemia, HBV, Chronic Liver Disease, Cirrhosis complicated by Esophageal Varices, HTN, Debility, DM presents to ED with confusion with diminished cognition. Patient family report the patient was "not acting like himself" and found to have worsening confusion over the past 2 days. In the ER the patient was found to have hepatic encephalopathy complicated by diminished cognition, end-stage renal disease in need of urgent dialysis, as well as uncontrolled diabetes, and acidosis. Nephrology team consulted in ED and patient was then admitted for further evaluation and Mx. A/p -- Hepatic encephalopathy due to hepatic cirrhosis cont lactulose, Neuro check, seizure precaution, aspiration precaution, fall precautions, continue to monitor. -- End stage renal disease Nephrology team consulted, strict I's/O, monitor urine output every shift, dialysis as per renal team, avoid nephrotoxic agents. --Metabolic Acidosis Nephrology team consulted, dialysis as per renal team. --Hyponatremia Monitor BMP, monitor fluid balance. -- Hyperammonemia Continue lactulose --Diabetes mellitus with hyperglycemia Consistent carb diet, SSI -- hyperkalemia, Improvement with dialysis --Ascitis, s/p paracentesis drained 6.2l of ascitic fluid --Sacral wound, cont wound care -- Moderate Protein Calorie Malnutrition, nutrition consulted --Noncompliance, counseled for medication compliance --DVT Px, SCD --DNR code status --Disposition: needs placement, CM waiting for placement Daily clinical course: 02/19: Resume dialysis will adjust insulin for better coverage. Very poor progno sis considering poor medical compliance. Agree with hospice recommendation. Will obtain wound care to continue to manage. Monitor anemia as patient was pretty anemic during the last hospitalization. Required transfusion. 02/20: Continues to undergo dialysis no change in mental status noted. Tolerating medications. Blood sugar mildly elevated adjusted insulin yesterday when awake for the patient received a dose today and if still elevated will adjust. Again case management is working on discharge plan for this patient as he is pending placement 02/21 patient complains of right hip pain. He said he fell few weeks ago and is concerned about another fracture. He had a fracture about 8 weeks ago and had surgery. Will obtain X ray right hip. Patient pending placement. 02/22 Patient seen in Dialysis Unit. He states hip pain improved. No other complaints. Right hip X ray done yesterday report read may be healing fracture or acute fracture. Will discuss with Orthopedic Surgeon Patient pending placement 02/23 Less hip pain. Today complains of generalized itching. Will start Benadryl po prn. Orthopedic consulted to evaluate right hip. Patient pending placement 02/24 Less hip pain. Generalized itching now resolved. Orthopedic consulted to evaluate right hip. He complains of sleeplessness. Will give Ambien prn Patient pending placement 02/25 Patient requested DNR status yesterday. I discussed with him and he signed forms. He also complains of worsening abdominal distension and requested ta pping, Will order paracentesis. Right hip evaluated by Dr. Trivedi and conservative management recommended. 02/26: Plan for paracentesis today. Need to set up dialysis as outpatient. architectural practice manager working on discharge planning. 02/27: Patient did not sign the consent for paracentesis yesterday so paracentesis was done today and aspirated 6.2L ascitic fluid. Patient refusing medication per RN. Getting dialysis. Patient noted slightly altered today, will place NG tube remains altered and keep refusing oral meds, order for ammonia level and will cont lactulose. 02/28: Patient appears much more calm and cooperative today. He stated that he has been refusing procedure and medication as he believes he was not in the right state of his mind. Patient acknowledges the importance of being compliant and he promises that he will take the medications as he will be given. Discharge planning per case management as patient would need outpatient dialysis center set up and personal chcf set up. 03/01/21: Patient has senior care setting but according to pillowcase maker no available RN to accept the patient till Thursday. Continue supportive care. Discharge pending on placement. 03/02/21 -03/04/21: Discharge pending on placement, continue to monitor clinically. Continue current management and plan and supportive care. Patient need SNF placement. 03/05/2021; Awaiting SNF placement for discharge. Prognosis is very poor. Patient is nonresponsive. I try to reach to his son over the phone but could not get in touch. Patient is appropriate for hospice care. 03/06/2021; patient is awaiting SNF placement. Patient was alert and oriented. No confusion. Patient is stable to be discharged back to SNF. 03/07/2021; patient has hemoglobin of 6.8 this morning. A unit of blood ordered. Will monitor H&H. Nephrology is following for dialysis. 03/08/2021; patient's hemoglobin was 6.8 yesterday and transfused a unit of blood. I ordered yesterday to do posttransfusion H&H and was not done. CBC was ordered to be done this morning but was not done. COVID-19 test was done on 03/06 and positive. Nephrology is following the patient for his dialysis. Plan is to discharge him to SNF. Will follow with case management because patient is Covid positive. 03/09/2021; patient's repeat Covid test on 03/08/2021 was positive. Patient is pending for SNF Placement. Patient had hypoglycemia yesterday and patient was placed on Lantus and his sliding scale adjusted to high dose. Will monitor and adjust as needed. 03/10/2021; pending SNF placement. Covid test was positive on and . 03/11/2021; patient has hepatic encephalopathy and his ammonia level is very high, patient is currently on lactulose and rifaximin. Ammonia level is trending down. Nephrology is following for dialysis. Patient has positive Covid test last one was on 03/08, that makes placement difficult. Continue with case management. 03/12: Still awaiting placement, discussed with nursing staff to monitor mental s tatus changes. Will check ammonia level. Continue to adjust blood sugar. Complicated by COVID POSITIVELY. Awaiting placement for the patient. Also dialysis chair time. I have discussed with case management as my understanding was that patient was to go for hospice but this plan appears to have changed possibly not clear to me at this time 03/13: Continue supportive care crush medications that can be crushed. Ammonia level is elevated but not as elevated as previously. Continue lactulose advised nursing staff that this should be given as ordered to communicate with the night team also. Unfortunately when the patient gets better he refuses his lactulose. I truly believe that we should strongly consider palliative care for this patient but nevertheless if he wants to continue dialysis and will be compliant with his medications this is definitely an option can be pursued. Aspiration precautions monitor hemoglobin and platelets. History Interval history: Patient seen and examined no acute distress. Still with profuse encephalopathy overnight states that he takes some of his medications that a liquid form. Hospitalist Physical - Physical exam Narrative exam: VITAL SIGNS: Reviewed. GENERAL: The patient appears normally developed, lethargic vital signs as documented. HEAD: No signs of head trauma. EYES: Pupils are equal. Extraocular motions intact. Icteric sclera EARS: Hearing grossly intact. MOUTH: Oropharynx is normal. NECK: No adenopathy, no JVD. CHEST: Chest with diminished breath sounds bilaterally. No wheezes, rales, or rhonchi. CARDIAC: Regular rate and rhythm. S1 and S2, without murmurs, gallops, or rubs. VASCULAR: No Edema. Peripheral pulses normal and equal in all extremities. ABDOMEN: Soft, non tender and non distended. No rebound or guarding, and no masses palpated. Bowel Sounds normal. MUSCULOSKELETAL: Right BKA extremities without clubbing, cyanosis or edema. NEUROLOGIC EXAM: Lethargic and stuporous. No focal sensory or strength deficits. PSYCHIATRIC: Unable to clearly examine SKIN: Jaundice detail exam as documented in skin assessment - Constitutional Vitals: Temp Pulse Resp BP Pulse Ox 99.8 F H 74 18 160/60 96 03/13/21 05:23 03/13/21 05:23 03/13/21 05:23 03/13/21 05:23 03/13/21 05:23 General appearance: Present: no acute distress, well-nourished Results - Labs CBC & Chem 7: 03/08/21 07:06 03/07/21 05:23 Labs: Laboratory Last Values WBC 2.7 K/mm3 (4.5-11.0) L 03/08/21 07:06 RBC 2.40 M/mm3 (3.65-5.03) L 03/08/21 07:06 Hgb 7.5 gm/dl (11.8-15.2) L 03/08/21 07:06 Hct 22.4 % (35.5-45.6) L 03/08/21 07:06 MCV 93 fl (84-94) 03/08/21 07:06 MCH 32 pg (28-32) 03/08/21 07:06 MCHC 34 % (32-34) 03/08/21 07:06 RDW 17.3 % (13.2-15.2) H 03/08/21 07:06 Plt Count 82 K/mm3 (140-440) L 03/08/21 07:06 Lymph % (Auto) 17.4 % (13.4-35.0) 03/08/21 07:06 [place] % (Auto) 14.8 % (0.0-7.3) H 03/08/21 07:06 Eos % (Auto) 1.1 % (0.0-4.3) 03/08/21 07:06 Baso % (Auto) 0.5 % (0.0-1.8) 03/08/21 07:06 Lymph # (Auto) 0.5 K/mm3 (1.2-5.4) L 03/08/21 07:06 [place] # (Auto) 0.4 K/mm3 (0.0-0.8) 03/08/21 07:06 Eos # (Auto) 0.0 K/mm3 (0.0-0.4) 03/08/21 07:06 Baso # (Auto) 0.0 K/mm3 (0.0-0.1) 03/08/21 07:06 Add Manual Diff Complete 03/07/21 05:23 Total Counted 100 03/07/21 05:23 Seg Neutrophils % 66.2 % (40.0-70.0) 03/08/21 07:06 Seg Neuts % (Manual) 78.0 % (40.0-70.0) H 03/07/21 05:23 Lymphocytes % (Manual) 13.0 % (13.4-35.0) L 03/07/21 05:23 Monocytes % (Manual) 9.0 % (0.0-7.3) H 03/07/21 05:23 Nucleated RBC % Not Reportable 03/07/21 05:23 Seg Neutrophils # 1.8 K/mm3 (1.8-7.7) 03/08/21 07:06 Seg Neutrophils # Man 2.0 K/mm3 (1.8-7.7) 03/07/21 05:23 Band Neutrophils # 0.0 K/mm3 03/07/21 05:23 Lymphocytes # (Manual) 0.3 K/mm3 (1.2-5.4) L 03/07/21 05:23 Abs React Lymphs (Man) 0.0 K/mm3 03/07/21 05:23 Monocytes # (Manual) 0.2 K/mm3 (0.0-0.8) 03/07/21 05:23 Eosinophils # (Manual) 0.0 K/mm3 (0.0-0.4) 03/07/21 05:23 Basophils # (Manual) 0.0 K/mm3 (0.0-0.1) 03/07/21 05:23 Metamyelocytes # 0.0 K/mm3 03/07/21 05:23 Myelocytes # 0.0 K/mm3 03/07/21 05:23 Promyelocytes # 0.0 K/mm3 03/07/21 05:23 Blast Cells # 0.0 K/mm3 03/07/21 05:23 WBC Morphology Not Reportable 03/07/21 05:23 Hypersegmented Neuts Not Reportable 03/07/21 05:23 Hyposegmented Neuts Not Reportable 03/07/21 05:23 Hypogranular Neuts Not Reportable 03/07/21 05:23 Smudge Cells Not Reportable 03/07/21 05:23 Toxic Granulation Not Reportable 03/07/21 05:23 Toxic Vacuolation Not Reportable 03/07/21 05:23 Dohle Bodies Not Reportable 03/07/21 05:23 Pelger-Huet Anomaly Not Reportable 03/07/21 05:23 Cosme Rods Not Reportable 03/07/21 05:23 Platelet Estimate Consistent w auto 03/07/21 05:23 Clumped Platelets Not Reportable 03/07/21 05:23 Plt Clumps, EDTA Not Reportable 03/07/21 05:23 Large Platelets Not Reportable 03/07/21 05:23 Giant Platelets Not Reportable 03/07/21 05:23 Platelet Satelliting Not Reportable 03/07/21 05:23 Plt Morphology Comment Not Reportable 03/07/21 05:23 RBC Morphology Not Reportable 03/07/21 05:23 Dimorphic RBCs Not Reportable 03/07/21 05:23 Polychromasia Not Reportable 03/07/21 05:23 Hypochromasia Not Reportable 03/07/21 05:23 Poikilocytosis Not Reportable 03/07/21 05:23 Anisocytosis Few 03/07/21 05:23 Microcytosis Not Reportable 03/07/21 05:23 Macrocytosis Not Reportable 03/07/21 05:23 Spherocytes Not Reportable 03/07/21 05:23 Pappenheimer Bodies Not Reportable 03/07/21 05:23 Sickle Cells Not Reportable 03/07/21 05:23 Target Cells Not Reportable 03/07/21 05:23 Tear Drop Cells Not Reportable 03/07/21 05:23 Ovalocytes Not Reportable 03/07/21 05:23 Helmet Cells Not Reportable 03/07/21 05:23 [place] Bodies Not Reportable 03/07/21 05:23 [place] Rings Not Reportable 03/07/21 05:23 Kathy Cells Not Reportable 03/07/21 05:23 Bite Cells Not Reportable 03/07/21 05:23 Crenated Cell Not Reportable 03/07/21 05:23 Elliptocytes Not Reportable 03/07/21 05:23 Acanthocytes (Spur) Not Reportable 03/07/21 05:23 Rouleaux Not Reportable 03/07/21 05:23 Hemoglobin C Crystals Not Reportable 03/07/21 05:23 Schistocytes Not Reportable 03/07/21 05:23 Malaria parasites Not Reportable 03/07/21 05:23 Samir Bodies Not Reportable 03/07/21 05:23 Hem Pathologist Commnt No 03/07/21 05:23 PT 13.7 Sec. (12.2-14.9) 02/26/21 04:33 INR 1.00 (0.87-1.13) 02/26/21 04:33 Sodium 134 mmol/L (137-145) L 03/07/21 05:23 Potassium 3.8 mmol/L (3.6-5.0) 03/07/21 05:23 Chloride 93.6 mmol/L (98-107) L 03/07/21 05:23 Carbon Dioxide 31 mmol/L (22-30) H 03/07/21 05:23 Anion Gap 13 mmol/L 03/07/21 05:23 BUN 38 mg/dL (9-20) H 03/07/21 05:23 Creatinine 4.5 mg/dL (0.8-1.3) H 03/07/21 05:23 Estimated GFR 14 ml/min 03/07/21 05:23 BUN/Creatinine Ratio 8 % 03/07/21 05:23 Glucose 284 mg/dL (75-100) H 03/07/21 05:23 POC Glucose 182 mg/dL (70-105) H 03/12/21 22:18 Hemoglobin A1c 7.4 % (4-6) H 02/26/21 04:33 Calcium 8.4 mg/dL (8.4-10.2) 03/07/21 05:23 Magnesium 2.10 mg/dL (1.7-2.3) 02/17/21 02:24 Total Bilirubin 0.60 mg/dL (0.1-1.2) 02/17/21 02:24 AST 18 units/L (5-40) 02/17/21 02:24 ALT 19 units/L (7-56) 02/17/21 02:24 Alkaline Phosphatase 171 units/L (35-129) H 02/17/21 02:24 Ammonia 84.0 umol/L (25-60) H 03/11/21 05:45 Total Creatine Kinase 86 units/L (55-170) 02/17/21 02:24 Total Protein 6.2 g/dL (6.3-8.2) L 02/17/21 02:24 Albumin 3.0 g/dL (3.9-5) L 02/17/21 02:24 Albumin/Globulin Ratio 0.9 % 02/17/21 02:24 TSH 0.986 mlU/mL (0.270-4.200) 02/17/21 02:24 Urine Color Yellow (Yellow) 02/17/21 Unknown Urine Turbidity Clear (Clear) 02/17/21 Unknown Urine pH 6.0 (5.0-7.0) 02/17/21 Unknown Ur Specific [place] 1.012 (1.003-1.030) 02/17/21 Unknown Urine Protein 100 mg/dl mg/dL (Negative) 02/17/21 Unknown Urine Glucose (UA) >=500 mg/dL (Negative) 02/17/21 Unknown Urine Ketones Neg mg/dL (Negative) 02/17/21 Unknown Urine Blood Neg (Negative) 02/17/21 Unknown Urine Nitrite Neg (Negative) 02/17/21 Unknown Urine Bilirubin Neg (Negative) 02/17/21 Unknown Urine Urobilinogen < 2.0 mg/dL (<2.0) 02/17/21 Unknown Ur Leukocyte Esterase Neg (Negative) 02/17/21 Unknown Urine WBC (Auto) 2.0 /HPF (0.0-6.0) 02/17/21 Unknown Urine RBC (Auto) 2.0 /HPF (0.0-6.0) 02/17/21 Unknown U Epithel Cells (Auto) < 1.0 /HPF (0-13.0) 02/17/21 Unknown Urine Bacteria (Auto) 1+ /HPF (Negative) 02/17/21 Unknown Salicylates < 0.3 mg/dL (2.8-20.0) L 02/17/21 02:24 Acetaminophen 5.0 ug/mL (10.0-30.0) L 02/17/21 02:24 Coronavirus (PCR) Positive (Negative) A 03/08/21 10:57 Hepatitis A IgM Ab Non-reactive (NonReactive) 02/28/21 12:37 Hep Bs Antigen Non-reactive (Negative) 02/28/21 12:37 Hep B Core IgM Ab Non-reactive (NonReactive) 02/28/21 12:37 Hepatitis C Antibody Non-reactive (NonReactive) 02/28/21 12:37 Blood Type A POSITIVE 03/07/21 06:31 Antibody Screen Negative 03/07/21 06:31 Crossmatch See Detail 03/07/21 06:31 Sr/IV: Voiding Method Incontinent Active Medications - Current Medications Current Medications: Generic Name Dose Route Start Last Admin Trade Name Freq PRN Reason Stop Dose Admin Acetaminophen 650 mg 02/18/21 22:38 03/09/21 13:15 Acetaminophen 325 Mg Tab PO 650 mg Q4H PRN Administration Pain MILD(1-3)/Fever >100.5/MOLINA Albuterol 2.5 mg 02/18/21 22:38 Albuterol 2.5 Mg/3 Ml Nebu IH Q3HRT PRN Shortness Of Breath Allopurinol 100 mg 02/20/21 10:00 03/12/21 09:26 Allopurinol 100 Mg Tab PO 100 mg QDAY LEYLA Administration Calcium Acetate 1,334 mg 02/20/21 08:30 03/13/21 10:28 Calcium Acetate 667 Mg Cap PO Not Given TIDWM LEYLA Dextrose 0 ml 02/18/21 23:00 02/25/21 16:56 Dextrose 50% In Water (25gm) 50 Ml Syringe IV 50 ml Q30MIN PRN Administration Hypoglycemia Protocol Diphenhydramine HCl 25 mg 02/23/21 09:10 03/01/21 10:30 Diphenhydramine 25 Mg Cap PO 25 mg BID PRN Administration Itching Famotidine 20 mg 02/19/21 10:00 03/12/21 09:26 Famotidine 20 Mg Tab PO 20 mg QAM LEYLA Administration Hydralazine HCl 10 mg 02/18/21 22:56 Hydralazine 20 Mg/1 Ml Inj IV Q6H PRN htn Sodium Chloride 100 mls @ 999 mls/hr 02/19/21 09:06 Nacl 0.9% IV OLIVIA PRN Hypotension Dextrose/Sodium Chloride 1,000 mls @ 50 mls/hr 03/12/21 15:00 03/12/21 15:21 D5/0.45ns IV 50 mls/hr DIRECT LEYLA Administration Insulin Glargine 10 units 03/09/21 22:00 03/12/21 22:59 Insulin Glargine 100 Units/Ml SUB-Q 10 units QHS LEYLA Administration Insulin Human Lispro 0 unit 03/09/21 22:00 03/13/21 10:57 Insulin Lispro 100 Unit/Ml SUB-Q Not Given ACHS [facility] Protocol Lactulose 20 gm 03/09/21 18:00 03/13/21 11:27 Lactulose 20 Gm/30 Ml Oral Liqd PO 20 gm Q6HR LEYLA Administration Ondansetron HCl 4 mg 02/18/21 22:38 02/28/21 12:32 Ondansetron 4 Mg/2 Ml Inj IV 4 mg Q8H PRN Administration Nausea And Vomiting Polyethylene Glycol 17 gm 02/24/21 12:08 02/24/21 12:47 Polyethylene Glycol 3350 17 Gm Powder PO 17 gm QDAY PRN Administration Constipation Propranolol HCl 20 mg 02/20/21 10:00 03/12/21 22:58 Propranolol 10 Mg Tab PO 20 mg BID LEYLA Administration Rifaximin 550 mg 03/10/21 12:00 03/12/21 22:59 Rifaximin 550 Mg Tab PO 550 mg BID LEYLA Administration Sodium Chloride 10 ml 02/19/21 10:00 03/13/21 11:27 Sodium Chloride 0.9% 10 Ml Flush Syringe IV 10 ml BID LEYLA Administration Sodium Chloride 10 ml 02/18/21 22:38 Sodium Chloride 0.9% 10 Ml Flush Syringe IV PRN PRN LINE FLUSH Tramadol HCl 50 mg 02/24/21 13:20 02/25/21 10:17 Tramadol 50 Mg Tab PO 50 mg Q6H PRN Administration Pain, Moderate (4-6) Zolpidem Tartrate 5 mg 02/24/21 09:54 03/08/21 23:25 Zolpidem 5 Mg Tab PO 5 mg QHS PRN Administration Sleep Nutrition/Malnutrition Assess - Dietary Evaluation Nutrition/Malnutrition Findings: Nutrition Notes Start: 02/19/21 10:48 Freq: Status: Active Protocol: Document 03/10/21 12:36 AKSHAT (Rec: 03/10/21 12:42 [email or web address] [id number]) Nutrition Notes Initial or Follow up Reassessment Current Diagnosis CKD (stage V CKD),Diabetes Other Pertinent Diagnosis COVID-19 (+), hepatic encephalopathy, ascites Current Diet Renal/Consistent CHO + Nepro once daily Labs/Tests POC Glu been >175 since last assessment Ammonia 117 (03/09) Pertinent Medications Reviewed Height 5 ft 11 in Weight 68.9 kg [place] Body Weight (kg) 78.18 BMI 21.2 Weight Status Appropriate Subjective/Other Information Pt has consumed 61% of meals since last assessment. Percent of energy/protein needs met: 68% energy 57% pro Burn Absent Trauma Absent #2 Nutrition Diagnosis Increased nutrient needs ( specify in comment below) Diagnosis Progress(for reassessment Continues documentation) #1 Nutrition Diagnosis Malnutrition Diagnosis Progress(for reassessment Continues documentation) Is patient on ventilator? No Is Patient Ambulatory and/or Out of Bed No REE-([place]-[facility] Jeor-confined to bed) 6413.908 Calculation [facility] [place] Additional Notes Pro needs >1.2g/kg/day Fluid needs 1-1.5L/day Nutrition Intervention Change Diet Order: Continue current diet order Add Supplement/Snack (indicate name/kcal Nepro daily /protein ) Provides kCal: 425 Provides Protein (gm) 19 Goal #1 PO intake of meals plus ONS to meet at least 75% energy and pro needs Goal #2 Wound healing Follow-Up By: 03/13/21 Additional Comments F/U: intakes (meals/ONS)
[2021-03-13] MEDS: allopurinoL 100 MG TAB PO SCH (13:26)
[2021-03-13] MEDS: FAMOTIDINE 20 MG TAB PO SCH (13:26)
[2021-03-13] MEDS: RIFAXIMIN 550 MG TAB PO SCH ×2 (13:26→23:15)
[2021-03-13] MEDS: INSULIN GLARGINE 100 UNITS/ML SUB-Q SCH (23:13)
[2021-03-14] MEDS: LACTULOSE 20 GM/30 ML ORAL LIQD PO SCH ×4 (06:56→23:23)
[2021-03-14 08:19] LABS: Hematocrit 26.7 % (35.5-45.6); Hemoglobin 9.4 gm/dl (11.8-15.2); Mean Corpuscular HGB Conc 35 % (32-34); Mean Corpuscular Volume 90 fl (84-94); Platelet Count 100 K/mm3 (140-440); Red Blood Count 2.96 M/mm3 (3.65-5.03); Red Cell Distribution Width 16.3 % (13.2-15.2)
[2021-03-14 08:38] LABS: Albumin 2.3 g/dL (3.9-5); Bilirubin,Direct 0.3 mg/dL (0-0.2)
[2021-03-14 08:55] LABS: Calcium 8.2 mg/dL (8.4-10.2)
--- NOTE | 2021-03-14 10:04 | Progress Note ---
Assessment and Plan 1. ESRD: Patient is on maintenance hemodialysis three times a week, MWF schedule. Meds dosage based on GFR. Missed HD 02/18. Hemodialysis: 02/19, 02/20, 02/22, 02/25, 02/27, 03/01, 03/04, 03/06, 03/08, 03/11, 03/13. 2. FEN: Hyperkalemia, improved. Monitor lytes and volume status. 3. Anemia, POA: 2/2 ESRD and Liver disease. Epogen with HD. PRBC as needed. 4. Cirrhosis with h/o hepatic encephalopathy: Lactulose. Monitor. 5. DM type 2: SSI. Monitor. 6. Thrombocytopenia, POA: 7. Hypertension: Monitor BP. Adjust meds as appropriate. Await placement. Subjective: Patient was seen and examined at the bedside. General Appearance: General appearance: well-developed, appears stated age, not in distress HEENT: ATNC, pupils equal Neck: trachea midline Respiratory: ctab Heart: regular, S1S2, no murmur Abdomen: soft, bowel sounds heard, not tender Integumentary: no rash, warm and dry Neurologic: lethargic, non-verbal, not following any command Ext: no edema, R BKA Hemodialysis access: R arm AVF Subjective Date of service: 03/14/21 Objective - Vital Signs Vital signs: Vital Signs - 12hr 03/13/21 03/14/21 23:03 07:14 Temperature 100.3 F H 99.2 F Pulse Rate 80 78 Respiratory 20 20 Rate Blood Pressure 141/42 157/57 O2 Sat by Pulse 97 97 Oximetry - Lab 03/14/21 07:24 03/14/21 07:24 Most recent lab results Calcium 8.2 mg/dL (8.4-10.2) L 03/14/21 07:24 Magnesium 2.10 mg/dL (1.7-2.3) 02/17/21 02:24 Medications & Allergies - Medications Allergies/Adverse Reactions: Allergies No Known Allergies Allergy (Verified 02/16/21 18:26) Home Medications: Home Medications Medication Instructions Recorded Confirmed Last Taken Type Calcium Acetate [Phoslo] 1,334 mg PO TIDWM #90 capsule 03/01/21 Unknown Rx Famotidine [Pepcid] 20 mg PO QAM #30 tablet 03/01/21 Unknown Rx Lactulose [Cephulac] 20 gm PO Q8HR 30 Days 03/01/21 Unknown Rx Lispro Insulin [HumaLOG] See Protocol SQ ACHS 30 Days 03/01/21 Unknown Rx allopurinoL [Zyloprim] 100 mg PO QDAY #30 tablet 03/01/21 Unknown Rx propranoloL [Inderal] 20 mg PO BID #60 tablet 03/01/21 Unknown Rx Active Medications: Generic Name Dose Route Start Last Admin Trade Name Freq PRN Reason Stop Dose Admin Acetaminophen 650 mg 02/18/21 22:38 03/09/21 13:15 Acetaminophen 325 Mg Tab PO 650 mg Q4H PRN Administration Pain MILD(1-3)/Fever >100.5/MOLINA Albuterol 2.5 mg 02/18/21 22:38 Albuterol 2.5 Mg/3 Ml Nebu IH Q3HRT PRN Shortness Of Breath Allopurinol 100 mg 02/20/21 10:00 03/13/21 13:26 Allopurinol 100 Mg Tab PO 100 mg QDAY LEYLA Administration Calcium Acetate 1,334 mg 02/20/21 08:30 03/13/21 16:59 Calcium Acetate 667 Mg Cap PO Not Given TIDWM LEYLA Dextrose 0 ml 02/18/21 23:00 02/25/21 16:56 Dextrose 50% In Water (25gm) 50 Ml Syringe IV 50 ml Q30MIN PRN Administration Hypoglycemia Protocol Diphenhydramine HCl 25 mg 02/23/21 09:10 03/01/21 10:30 Diphenhydramine 25 Mg Cap PO 25 mg BID PRN Administration Itching Famotidine 20 mg 02/19/21 10:00 03/13/21 13:26 Famotidine 20 Mg Tab PO 20 mg QAM LEYLA Administration Hydralazine HCl 10 mg 02/18/21 22:56 Hydralazine 20 Mg/1 Ml Inj IV Q6H PRN htn Sodium Chloride 100 mls @ 999 mls/hr 02/19/21 09:06 Nacl 0.9% IV OLIVIA PRN Hypotension Dextrose/Sodium Chloride 1,000 mls @ 50 mls/hr 03/12/21 15:00 03/12/21 15:21 D5/0.45ns IV 50 mls/hr DIRECT LEYLA Administration Insulin Glargine 10 units 03/09/21 22:00 03/13/21 23:13 Insulin Glargine 100 Units/Ml SUB-Q 10 units QHS LEYLA Administration Insulin Human Lispro 0 unit 03/09/21 22:00 03/13/21 23:13 Insulin Lispro 100 Unit/Ml SUB-Q 4 unit ACHS LEYLA Administration Protocol Lactulose 20 gm 03/09/21 18:00 03/14/21 06:56 Lactulose 20 Gm/30 Ml Oral Liqd PO 20 gm Q6HR LEYLA Administration Ondansetron HCl 4 mg 02/18/21 22:38 02/28/21 12:32 Ondansetron 4 Mg/2 Ml Inj IV 4 mg Q8H PRN Administration Nausea And Vomiting Polyethylene Glycol 17 gm 02/24/21 12:08 02/24/21 12:47 Polyethylene Glycol 3350 17 Gm Powder PO 17 gm QDAY PRN Administration Constipation Propranolol HCl 20 mg 02/20/21 10:00 03/13/21 23:15 Propranolol 10 Mg Tab PO 20 mg BID LEYLA Administration Rifaximin 550 mg 03/10/21 12:00 03/13/21 23:15 Rifaximin 550 Mg Tab PO 550 mg BID LEYLA Administration Sodium Chloride 10 ml 02/19/21 10:00 03/13/21 23:16 Sodium Chloride 0.9% 10 Ml Flush Syringe IV 10 ml BID LEYLA Administration Sodium Chloride 10 ml 02/18/21 22:38 Sodium Chloride 0.9% 10 Ml Flush Syringe IV PRN PRN LINE FLUSH Tramadol HCl 50 mg 02/24/21 13:20 02/25/21 10:17 Tramadol 50 Mg Tab PO 50 mg Q6H PRN Administration Pain, Moderate (4-6) Zolpidem Tartrate 5 mg 02/24/21 09:54 03/08/21 23:25 Zolpidem 5 Mg Tab PO 5 mg QHS PRN Administration Sleep
[2021-03-14] MEDS: CALCIUM ACETATE 667 MG CAP PO SCH ×3 (10:31→17:10)
[2021-03-14] MEDS: INSULIN LISPRO 100 UNIT/ML SUB-Q SCH ×4 (10:31→23:24)
[2021-03-14] MEDS: allopurinoL 100 MG TAB PO SCH (10:32)
[2021-03-14] MEDS: RIFAXIMIN 550 MG TAB PO SCH ×2 (10:32→23:23)
[2021-03-14] MEDS: PROPRANOLOL 10 MG TAB PO SCH ×2 (10:32→23:23)
[2021-03-14] MEDS: FAMOTIDINE 20 MG TAB PO SCH (10:32)
--- NOTE | 2021-03-14 11:19 | Progress Note ---
Assessment and Plan Assessment and plan: 55 YO Male with ESRD on HD, Noncompliance with outpatient dialysis, Anemia, HBV, Chronic Liver Disease, Cirrhosis complicated by Esophageal Varices, HTN, Debility, DM presents to ED with confusion with diminished cognition. Patient family report the patient was "not acting like himself" and found to have worsening confusion over the past 2 days. In the ER the patient was found to have hepatic encephalopathy complicated by diminished cognition, end-stage renal disease in need of urgent dialysis, as well as uncontrolled diabetes, and acidosis. Nephrology team consulted in ED and patient was then admitted for further evaluation and Mx. A/p -- Hepatic encephalopathy due to hepatic cirrhosis cont lactulose, Neuro check, seizure precaution, aspiration precaution, fall precautions, continue to monitor. -- End stage renal disease Nephrology team consulted, strict I's/O, monitor urine output every shift, dialysis as per renal team, avoid nephrotoxic agents. --Metabolic Acidosis Nephrology team consulted, dialysis as per renal team. --Hyponatremia Monitor BMP, monitor fluid balance. -- Hyperammonemia Continue lactulose --Diabetes mellitus with hyperglycemia Consistent carb diet, SSI -- hyperkalemia, Improvement with dialysis --Ascitis, s/p paracentesis drained 6.2l of ascitic fluid --Sacral wound, cont wound care -- Moderate Protein Calorie Malnutrition, nutrition consulted --Noncompliance, counseled for medication compliance --DVT Px, SCD --DNR code status --Disposition: needs placement, CM waiting for placement Daily clinical course: 02/19: Resume dialysis will adjust insulin for better coverage. Very poor progno sis considering poor medical compliance. Agree with hospice recommendation. Will obtain wound care to continue to manage. Monitor anemia as patient was pretty anemic during the last hospitalization. Required transfusion. 02/20: Continues to undergo dialysis no change in mental status noted. Tolerating medications. Blood sugar mildly elevated adjusted insulin yesterday when awake for the patient received a dose today and if still elevated will adjust. Again case management is working on discharge plan for this patient as he is pending placement 02/21 patient complains of right hip pain. He said he fell few weeks ago and is concerned about another fracture. He had a fracture about 8 weeks ago and had surgery. Will obtain X ray right hip. Patient pending placement. 02/22 Patient seen in Dialysis Unit. He states hip pain improved. No other complaints. Right hip X ray done yesterday report read may be healing fracture or acute fracture. Will discuss with Orthopedic Surgeon Patient pending placement 02/23 Less hip pain. Today complains of generalized itching. Will start Benadryl po prn. Orthopedic consulted to evaluate right hip. Patient pending placement 02/24 Less hip pain. Generalized itching now resolved. Orthopedic consulted to evaluate right hip. He complains of sleeplessness. Will give Ambien prn Patient pending placement 02/25 Patient requested DNR status yesterday. I discussed with him and he signed forms. He also complains of worsening abdominal distension and requested ta pping, Will order paracentesis. Right hip evaluated by Dr. Trivedi and conservative management recommended. 02/26: Plan for paracentesis today. Need to set up dialysis as outpatient. senior procurement manager working on discharge planning. 02/27: Patient did not sign the consent for paracentesis yesterday so paracentesis was done today and aspirated 6.2L ascitic fluid. Patient refusing medication per RN. Getting dialysis. Patient noted slightly altered today, will place NG tube remains altered and keep refusing oral meds, order for ammonia level and will cont lactulose. 02/28: Patient appears much more calm and cooperative today. He stated that he has been refusing procedure and medication as he believes he was not in the right state of his mind. Patient acknowledges the importance of being compliant and he promises that he will take the medications as he will be given. Discharge planning per case management as patient would need outpatient dialysis center set up and personal skilled nursing set up. 03/01/21: Patient has [facility] but according to telehealth case manager no available RN to accept the patient till Thursday. Continue supportive care. Discharge pending on placement. 03/02/21 -03/04/21: Discharge pending on placement, continue to monitor clinically. Continue current management and plan and supportive care. Patient need SNF placement. 03/05/2021; Awaiting SNF placement for discharge. Prognosis is very poor. Patient is nonresponsive. I try to reach to his son over the phone but could not get in touch. Patient is appropriate for hospice care. 03/06/2021; patient is awaiting SNF placement. Patient was alert and oriented. No confusion. Patient is stable to be discharged back to SNF. 03/07/2021; patient has hemoglobin of 6.8 this morning. A unit of blood ordered. Will monitor H&H. Nephrology is following for dialysis. 03/08/2021; patient's hemoglobin was 6.8 yesterday and transfused a unit of blood. I ordered yesterday to do posttransfusion H&H and was not done. CBC was ordered to be done this morning but was not done. COVID-19 test was done on 03/06 and positive. Nephrology is following the patient for his dialysis. Plan is to discharge him to SNF. Will follow with case management because patient is Covid positive. 03/09/2021; patient's repeat Covid test on 03/08/2021 was positive. Patient is pending for SNF Placement. Patient had hypoglycemia yesterday and patient was placed on Lantus and his sliding scale adjusted to high dose. Will monitor and adjust as needed. 03/10/2021; pending SNF placement. Covid test was positive on and . 03/11/2021; patient has hepatic encephalopathy and his ammonia level is very high, patient is currently on lactulose and rifaximin. Ammonia level is trending down. Nephrology is following for dialysis. Patient has positive Covid test last one was on 03/08, that makes placement difficult. Continue with case management. 03/12: Still awaiting placement, discussed with nursing staff to monitor mental s tatus changes. Will check ammonia level. Continue to adjust blood sugar. Complicated by COVID POSITIVELY. Awaiting placement for the patient. Also dialysis chair time. I have discussed with case management as my understanding was that patient was to go for hospice but this plan appears to have changed possibly not clear to me at this time 03/13: Continue supportive care crush medications that can be crushed. Ammonia level is elevated but not as elevated as previously. Continue lactulose advised nursing staff that this should be given as ordered to communicate with the night team also. Unfortunately when the patient gets better he refuses his lactulose. I truly believe that we should strongly consider palliative care for this patient but nevertheless if he wants to continue dialysis and will be compliant with his medications this is definitely an option can be pursued. Aspiration precautions monitor hemoglobin and platelets. 03/14: Patient seen and examined, more awake today. Continue supportive care, patient was made DNR wade, signed the form today after confirming the patient and also the physician. Monitor for fever. AWAITING PLACEMENT. poor prognosis History Interval history: Patient seen and examined no acute distress. Low grade temp. More awake today. Hospitalist Physical - Physical exam Narrative exam: VITAL SIGNS: Reviewed. GENERAL: The patient appears normally developed, lethargic, pale, vital signs as documented. HEAD: No signs of head trauma. EYES: Pupils are equal. Extraocular motions intact. Icteric sclera-Jaundice EARS: Hearing grossly intact. MOUTH: Oropharynx is normal. NECK: No adenopathy, no JVD. CHEST: Chest with diminished breath sounds bilaterally. No wheezes, rales, or rhonchi. CARDIAC: Regular rate and rhythm. S1 and S2, without murmurs, gallops, or rubs. VASCULAR: No Edema. Peripheral pulses normal and equal in all extremities. ABDOMEN: Soft, non tender and non distended. No rebound or guarding, and no masses palpated. Bowel Sounds normal. MUSCULOSKELETAL: Right BKA extremities without clubbing, cyanosis or edema. NEUROLOGIC EXAM: Lethargic and stuporous. No focal sensory or strength deficits. PSYCHIATRIC: Unable to clearly examine SKIN: Jaundice detail exam as documented in skin assessment - Constitutional Vitals: Temp Pulse Resp BP Pulse Ox 99.2 F 78 20 157/57 97 03/14/21 07:14 03/14/21 07:14 03/14/21 07:14 03/14/21 07:14 03/14/21 07:14 General appearance: Present: no acute distress, well-nourished Results - Labs CBC & Chem 7: 03/14/21 07:24 03/14/21 07:24 Labs: Laboratory Last Values WBC 4.4 K/mm3 (4.5-11.0) L 03/14/21 07:24 RBC 2.96 M/mm3 (3.65-5.03) L 03/14/21 07:24 Hgb 9.4 gm/dl (11.8-15.2) L 03/14/21 07:24 Hct 26.7 % (35.5-45.6) L 03/14/21 07:24 MCV 90 fl (84-94) 03/14/21 07:24 MCH 32 pg (28-32) 03/14/21 07:24 MCHC 35 % (32-34) H 03/14/21 07:24 RDW 16.3 % (13.2-15.2) H 03/14/21 07:24 Plt Count 100 K/mm3 (140-440) L 03/14/21 07:24 Lymph % (Auto) 17.4 % (13.4-35.0) 03/08/21 07:06 [place] % (Auto) 14.8 % (0.0-7.3) H 03/08/21 07:06 Eos % (Auto) 1.1 % (0.0-4.3) 03/08/21 07:06 Baso % (Auto) 0.5 % (0.0-1.8) 03/08/21 07:06 Lymph # (Auto) 0.5 K/mm3 (1.2-5.4) L 03/08/21 07:06 [place] # (Auto) 0.4 K/mm3 (0.0-0.8) 03/08/21 07:06 Eos # (Auto) 0.0 K/mm3 (0.0-0.4) 03/08/21 07:06 Baso # (Auto) 0.0 K/mm3 (0.0-0.1) 03/08/21 07:06 Add Manual Diff Complete 03/07/21 05:23 Total Counted 100 03/07/21 05:23 Seg Neutrophils % 66.2 % (40.0-70.0) 03/08/21 07:06 Seg Neuts % (Manual) 78.0 % (40.0-70.0) H 03/07/21 05:23 Lymphocytes % (Manual) 13.0 % (13.4-35.0) L 03/07/21 05:23 Monocytes % (Manual) 9.0 % (0.0-7.3) H 03/07/21 05:23 Nucleated RBC % Not Reportable 03/07/21 05:23 Seg Neutrophils # 1.8 K/mm3 (1.8-7.7) 03/08/21 07:06 Seg Neutrophils # Man 2.0 K/mm3 (1.8-7.7) 03/07/21 05:23 Band Neutrophils # 0.0 K/mm3 03/07/21 05:23 Lymphocytes # (Manual) 0.3 K/mm3 (1.2-5.4) L 03/07/21 05:23 Abs React Lymphs (Man) 0.0 K/mm3 03/07/21 05:23 Monocytes # (Manual) 0.2 K/mm3 (0.0-0.8) 03/07/21 05:23 Eosinophils # (Manual) 0.0 K/mm3 (0.0-0.4) 03/07/21 05:23 Basophils # (Manual) 0.0 K/mm3 (0.0-0.1) 03/07/21 05:23 Metamyelocytes # 0.0 K/mm3 03/07/21 05:23 Myelocytes # 0.0 K/mm3 03/07/21 05:23 Promyelocytes # 0.0 K/mm3 03/07/21 05:23 Blast Cells # 0.0 K/mm3 03/07/21 05:23 WBC Morphology Not Reportable 03/07/21 05:23 Hypersegmented Neuts Not Reportable 03/07/21 05:23 Hyposegmented Neuts Not Reportable 03/07/21 05:23 Hypogranular Neuts Not Reportable 03/07/21 05:23 Smudge Cells Not Reportable 03/07/21 05:23 Toxic Granulation Not Reportable 03/07/21 05:23 Toxic Vacuolation Not Reportable 03/07/21 05:23 Dohle Bodies Not Reportable 03/07/21 05:23 Pelger-Huet Anomaly Not Reportable 03/07/21 05:23 Cosme Rods Not Reportable 03/07/21 05:23 Platelet Estimate Consistent w auto 03/07/21 05:23 Clumped Platelets Not Reportable 03/07/21 05:23 Plt Clumps, EDTA Not Reportable 03/07/21 05:23 Large Platelets Not Reportable 03/07/21 05:23 Giant Platelets Not Reportable 03/07/21 05:23 Platelet Satelliting Not Reportable 03/07/21 05:23 Plt Morphology Comment Not Reportable 03/07/21 05:23 RBC Morphology Not Reportable 03/07/21 05:23 Dimorphic RBCs Not Reportable 03/07/21 05:23 Polychromasia Not Reportable 03/07/21 05:23 Hypochromasia Not Reportable 03/07/21 05:23 Poikilocytosis Not Reportable 03/07/21 05:23 Anisocytosis Few 03/07/21 05:23 Microcytosis Not Reportable 03/07/21 05:23 Macrocytosis Not Reportable 03/07/21 05:23 Spherocytes Not Reportable 03/07/21 05:23 Pappenheimer Bodies Not Reportable 03/07/21 05:23 Sickle Cells Not Reportable 03/07/21 05:23 Target Cells Not Reportable 03/07/21 05:23 Tear Drop Cells Not Reportable 03/07/21 05:23 Ovalocytes Not Reportable 03/07/21 05:23 Helmet Cells Not Reportable 03/07/21 05:23 Mercado-Magness Bodies Not Reportable 03/07/21 05:23 [place] Rings Not Reportable 03/07/21 05:23 Kathy Cells Not Reportable 03/07/21 05:23 Bite Cells Not Reportable 03/07/21 05:23 Crenated Cell Not Reportable 03/07/21 05:23 Elliptocytes Not Reportable 03/07/21 05:23 Acanthocytes (Spur) Not Reportable 03/07/21 05:23 Rouleaux Not Reportable 03/07/21 05:23 Hemoglobin C Crystals Not Reportable 03/07/21 05:23 Schistocytes Not Reportable 03/07/21 05:23 Malaria parasites Not Reportable 03/07/21 05:23 Samir Bodies Not Reportable 03/07/21 05:23 Hem Pathologist Commnt No 03/07/21 05:23 PT 13.7 Sec. (12.2-14.9) 02/26/21 04:33 INR 1.00 (0.87-1.13) 02/26/21 04:33 Sodium 135 mmol/L (137-145) L 03/14/21 07:24 Potassium 4.5 mmol/L (3.6-5.0) 03/14/21 07:24 Chloride 94.3 mmol/L (98-107) L 03/14/21 07:24 Carbon Dioxide 26 mmol/L (22-30) 03/14/21 07:24 Anion Gap 19 mmol/L 03/14/21 07:24 BUN 44 mg/dL (9-20) H 03/14/21 07:24 Creatinine 5.3 mg/dL (0.8-1.3) H 03/14/21 07:24 Estimated GFR 11 ml/min 03/14/21 07:24 BUN/Creatinine Ratio 8 % 03/14/21 07:24 Glucose 191 mg/dL (75-100) H 03/14/21 07:24 POC Glucose 165 mg/dL (70-105) H 03/14/21 07:55 Hemoglobin A1c 7.4 % (4-6) H 02/26/21 04:33 Calcium 8.2 mg/dL (8.4-10.2) L 03/14/21 07:24 Magnesium 2.10 mg/dL (1.7-2.3) 02/17/21 02:24 Total Bilirubin 0.60 mg/dL (0.1-1.2) 03/14/21 07:24 Direct Bilirubin 0.3 mg/dL (0-0.2) H 03/14/21 07:24 Indirect Bilirubin 0.3 mg/dL 03/14/21 07:24 AST 57 units/L (5-40) H 03/14/21 07:24 ALT 24 units/L (7-56) 03/14/21 07:24 Alkaline Phosphatase 179 units/L (35-129) H 03/14/21 07:24 Ammonia 30.0 umol/L (25-60) 03/14/21 07:24 Total Creatine Kinase 86 units/L (55-170) 02/17/21 02:24 Total Protein 6.2 g/dL (6.3-8.2) L 03/14/21 07:24 Albumin 2.3 g/dL (3.9-5) L 03/14/21 07:24 Albumin/Globulin Ratio 0.6 % 03/14/21 07:24 TSH 0.986 mlU/mL (0.270-4.200) 02/17/21 02:24 Urine Color Yellow (Yellow) 02/17/21 Unknown Urine Turbidity Clear (Clear) 02/17/21 Unknown Urine pH 6.0 (5.0-7.0) 02/17/21 Unknown Ur Specific [place] 1.012 (1.003-1.030) 02/17/21 Unknown Urine Protein 100 mg/dl mg/dL (Negative) 02/17/21 Unknown Urine Glucose (UA) >=500 mg/dL (Negative) 02/17/21 Unknown Urine Ketones Neg mg/dL (Negative) 02/17/21 Unknown Urine Blood Neg (Negative) 02/17/21 Unknown Urine Nitrite Neg (Negative) 02/17/21 Unknown Urine Bilirubin Neg (Negative) 02/17/21 Unknown Urine Urobilinogen < 2.0 mg/dL (<2.0) 02/17/21 Unknown Ur Leukocyte Esterase Neg (Negative) 02/17/21 Unknown Urine WBC (Auto) 2.0 /HPF (0.0-6.0) 02/17/21 Unknown Urine RBC (Auto) 2.0 /HPF (0.0-6.0) 02/17/21 Unknown U Epithel Cells (Auto) < 1.0 /HPF (0-13.0) 02/17/21 Unknown Urine Bacteria (Auto) 1+ /HPF (Negative) 02/17/21 Unknown Salicylates < 0.3 mg/dL (2.8-20.0) L 02/17/21 02:24 Acetaminophen 5.0 ug/mL (10.0-30.0) L 02/17/21 02:24 Coronavirus (PCR) Positive (Negative) A 03/08/21 10:57 Hepatitis A IgM Ab Non-reactive (NonReactive) 02/28/21 12:37 Hep Bs Antigen Non-reactive (Negative) 02/28/21 12:37 Hep B Core IgM Ab Non-reactive (NonReactive) 02/28/21 12:37 Hepatitis C Antibody Non-reactive (NonReactive) 02/28/21 12:37 Blood Type A POSITIVE 03/07/21 06:31 Antibody Screen Negative 03/07/21 06:31 Crossmatch See Detail 03/07/21 06:31 Sr/IV: Voiding Method Incontinent Active Medications - Current Medications Current Medications: Generic Name Dose Route Start Last Admin Trade Name Freq PRN Reason Stop Dose Admin Acetaminophen 650 mg 02/18/21 22:38 03/09/21 13:15 Acetaminophen 325 Mg Tab PO 650 mg Q4H PRN Administration Pain MILD(1-3)/Fever >100.5/MOLINA Albuterol 2.5 mg 02/18/21 22:38 Albuterol 2.5 Mg/3 Ml Nebu IH Q3HRT PRN Shortness Of Breath Allopurinol 100 mg 02/20/21 10:00 03/14/21 10:32 Allopurinol 100 Mg Tab PO Not Given QDAY [facility] Calcium Acetate 1,334 mg 02/20/21 08:30 03/14/21 10:31 Calcium Acetate 667 Mg Cap PO Not Given TIDWM LEYLA Dextrose 0 ml 02/18/21 23:00 02/25/21 16:56 Dextrose 50% In Water (25gm) 50 Ml Syringe IV 50 ml Q30MIN PRN Administration Hypoglycemia Protocol Diphenhydramine HCl 25 mg 02/23/21 09:10 03/01/21 10:30 Diphenhydramine 25 Mg Cap PO 25 mg BID PRN Administration Itching Famotidine 20 mg 02/19/21 10:00 03/14/21 10:32 Famotidine 20 Mg Tab PO Not Given QAM [facility] Hydralazine HCl 10 mg 02/18/21 22:56 Hydralazine 20 Mg/1 Ml Inj IV Q6H PRN htn Sodium Chloride 100 mls @ 999 mls/hr 02/19/21 09:06 Nacl 0.9% IV OLIVIA PRN Hypotension Dextrose/Sodium Chloride 1,000 mls @ 50 mls/hr 03/12/21 15:00 03/12/21 15:21 D5/0.45ns IV 50 mls/hr DIRECT LEYLA Administration Insulin Glargine 10 units 03/09/21 22:00 03/13/21 23:13 Insulin Glargine 100 Units/Ml SUB-Q 10 units QHS LEYLA Administration Insulin Human Lispro 0 unit 03/09/21 22:00 03/14/21 10:31 Insulin Lispro 100 Unit/Ml SUB-Q Not Given ACHS [facility] Protocol Lactulose 20 gm 03/09/21 18:00 03/14/21 06:56 Lactulose 20 Gm/30 Ml Oral Liqd PO 20 gm Q6HR LEYLA Administration Ondansetron HCl 4 mg 02/18/21 22:38 02/28/21 12:32 Ondansetron 4 Mg/2 Ml Inj IV 4 mg Q8H PRN Administration Nausea And Vomiting Polyethylene Glycol 17 gm 02/24/21 12:08 02/24/21 12:47 Polyethylene Glycol 3350 17 Gm Powder PO 17 gm QDAY PRN Administration Constipation Propranolol HCl 20 mg 02/20/21 10:00 03/14/21 10:32 Propranolol 10 Mg Tab PO Not Given BID LEYLA Rifaximin 550 mg 03/10/21 12:00 03/14/21 10:32 Rifaximin 550 Mg Tab PO Not Given BID LEYLA Sodium Chloride 10 ml 02/19/21 10:00 03/14/21 10:32 Sodium Chloride 0.9% 10 Ml Flush Syringe IV 10 ml BID LEYLA Administration Sodium Chloride 10 ml 02/18/21 22:38 Sodium Chloride 0.9% 10 Ml Flush Syringe IV PRN PRN LINE FLUSH Tramadol HCl 50 mg 02/24/21 13:20 02/25/21 10:17 Tramadol 50 Mg Tab PO 50 mg Q6H PRN Administration Pain, Moderate (4-6) Zolpidem Tartrate 5 mg 02/24/21 09:54 03/08/21 23:25 Zolpidem 5 Mg Tab PO 5 mg QHS PRN Administration Sleep Nutrition/Malnutrition Assess - Dietary Evaluation Nutrition/Malnutrition Findings: Nutrition Notes Start: 02/19/21 10:48 Freq: Status: Active Protocol: Document 03/13/21 14:06 (Rec: 03/13/21 14:08 [email or web address]) Nutrition Notes Initial or Follow up Reassessment Current Diagnosis CKD (stage V CKD),Diabetes Other Pertinent Diagnosis COVID-19 (+), hepatic encephalopathy, ascites Current Diet Renal/Consistent CHO + Nepro once daily Labs/Tests POC 204 Pertinent Medications D5 1/2 NS at 50ml/hr Height 5 ft 11 in Weight 69.3 kg [place] Body Weight (kg) 78.18 BMI 21.3 Weight Status Appropriate Subjective/Other Information Pt consuming <25% of meals or refusing meals. Unable to reach pt for food prefrences. Percent of energy/protein needs met: Negligible Burn Absent Trauma Absent Current % PO Negligible Minimum of two criteria Yes Body Fat Depletion Mild depletion (non-severe) Fluid Accumulation Mild (non-severe) #2 Nutrition Diagnosis Increased nutrient needs ( specify in comment below) Diagnosis Progress(for reassessment Continues documentation) #1 Nutrition Diagnosis Malnutrition Diagnosis Progress(for reassessment Continues documentation) Is patient on ventilator? No Is Patient Ambulatory and/or Out of Bed No [facility] [phone] Calculation Used for Recommendations Иван Loera Additional Notes Pro needs >1.2g/kg/day Fluid needs 1-1.5L/day Nutrition Intervention Change Diet Order: Continue current diet order Add Supplement/Snack (indicate name/kcal Nepro daily /protein ) Provides kCal: 425 Provides Protein (gm) 19 Goal #1 PO intake of meals plus ONS to meet at least 75% energy and pro needs Goal #2 Wound healing Follow-Up By: 03/15/21 Additional Comments F/U: intakes (meals/ONS) - Malnutrition Assessment Minimum of two criteria: Yes - Attestation Statement I have reviewed and agreed w/ Malnutrition eval & tx plan: Yes
[2021-03-14] MEDS: D5W/0.45% NACL 1,000 ML IV SCH (17:08)
[2021-03-14] MEDS: INSULIN GLARGINE 100 UNITS/ML SUB-Q SCH (23:24)
[2021-03-15] MEDS: LACTULOSE 20 GM/30 ML ORAL LIQD PO SCH ×3 (06:05→17:19)
[2021-03-15] MEDS: INSULIN LISPRO 100 UNIT/ML SUB-Q SCH ×5 (09:47→23:14)
[2021-03-15] MEDS: CALCIUM ACETATE 667 MG CAP PO SCH ×3 (09:47→17:19)
--- NOTE | 2021-03-15 10:24 | Progress Note ---
Assessment and Plan Assessment and plan: Assessment and plan: 55 YO Male with ESRD on HD, Noncompliance with outpatient dialysis, Anemia, HBV, Chronic Liver Disease, Cirrhosis complicated by Esophageal Varices, HTN, Mahnaz ility, DM presents to ED with confusion with diminished cognition. Patient family report the patient was "not acting like himself" and found to have worsening confusion over the past 2 days. In the ER the patient was found to have hepatic encephalopathy complicated by diminished cognition, end-stage renal disease in need of urgent dialysis, as well as uncontrolled diabetes, and acidosis. Nephrology team consulted in ED and patient was then admitted for further evaluation and Mx. A/p -- Hepatic encephalopathy due to hepatic cirrhosis cont lactulose, Neuro check, seizure precaution, aspiration precaution, fall precautions, continue to monitor. -- End stage renal disease Nephrology team consulted, strict I's/O, monitor urine output every shift, dialysis as per renal team, avoid nephrotoxic agents. --Metabolic Acidosis Nephrology team consulted, dialysis as per renal team. --Hyponatremia Monitor BMP, monitor fluid balance. -- Hyperammonemia Continue lactulose --Diabetes mellitus with hyperglycemia Consistent carb diet, SSI -- hyperkalemia, Improvement with dialysis --Ascitis, s/p paracentesis drained 6.2l of ascitic fluid --Sacral wound, cont wound care -- Moderate Protein Calorie Malnutrition, nutrition consulted --Noncompliance, counseled for medication compliance --DVT Px, SCD --DNR code status --Disposition: needs placement, CM waiting for placement Daily clinical course: 02/19: Resume dialysis will adjust insulin for better coverage. Very poor prognosis considering poor medical compliance. Agree with hospice recommendation. Will obtain wound care to continue to manage. Monitor anemia as patient was pretty anemic during the last hospitalization. Required transfusion. 02/20: Continues to undergo dialysis no change in mental status noted. Tolerating medications. Blood sugar mildly elevated adjusted insulin yesterday when awake for the patient received a dose today and if still elevated will adjust. Again case management is working on discharge plan for this patient as he is pending placement 02/21 patient complains of right hip pain. He said he fell few weeks ago and is concerned about another fracture. He had a fracture about 8 weeks ago and had surgery. Will obtain X ray right hip. Patient pending placement. 02/22 Patient seen in Dialysis Unit. He states hip pain improved. No other com plaints. Right hip X ray done yesterday report read may be healing fracture or acute fracture. Will discuss with Orthopedic Surgeon Patient pending placement 02/23 Less hip pain. Today complains of generalized itching. Will start Benadryl po prn. Orthopedic consulted to evaluate right hip. Patient pending placement 02/24 Less hip pain. Generalized itching now resolved. Orthopedic consulted to evaluate right hip. He complains of sleeplessness. Will give Ambien prn Patient pending placement 02/25 Patient requested DNR status yesterday. I discussed with him and he signed forms. He also complains of worsening abdominal distension and requested tapping, Will order paracentesis. Right hip evaluated by Dr. Trivedi and conservative management recommended. 02/26: Plan for paracentesis today. Need to set up dialysis as outpatient. manager environmental services working on discharge planning. 02/27: Patient did not sign the consent for paracentesis yesterday so paracentesis was done today and aspirated 6.2L ascitic fluid. Patient refusing medication per RN. Getting dialysis. Patient noted slightly altered today, will place NG tube remains altered and keep refusing oral meds, order for ammonia level and will cont lactulose. 02/28: Patient appears much more calm and cooperative today. He stated that he has been refusing procedure and medication as he believes he was not in the right state of his mind. Patient acknowledges the importance of being compliant and he promises that he will take the medications as he will be given. Discharge planning per case management as patient would need outpatient dialysis center set up and personal jail set up. 03/01/21: Patient has skilled nursing setting but according to case repairer no available RN to accept the patient till Thursday. Continue supportive care. Discharge pending on placement. 03/02/21 -03/04/21: Discharge pending on placement, continue to monitor clinically. Continue current management and plan and supportive care. Patient need SNF placement. 03/05/2021; Awaiting SNF placement for discharge. Prognosis is very poor. Patient is nonresponsive. I try to reach to his son over the phone but could not get in touch. Patient is appropriate for hospice care. 03/06/2021; patient is awaiting SNF placement. Patient was alert and oriented. No confusion. Patient is stable to be discharged back to SNF. 03/07/2021; patient has hemoglobin of 6.8 this morning. A unit of blood ordered. Will monitor H&H. Nephrology is following for dialysis. 03/08/2021; patient's hemoglobin was 6.8 yesterday and transfused a unit of blood. I ordered yesterday to do posttransfusion H&H and was not done. CBC was ordered to be done this morning but was not done. COVID-19 test was done on 03/06 and positive. Nephrology is following the patient for his dialysis. Plan is to discharge him to SNF. Will follow with case management because patient is Covid positive. 03/09/2021; patient's repeat Covid test on 03/08/2021 was positive. Patient is pending for SNF Placement. Patient had hypoglycemia yesterday and patient was placed on Lantus and his sli ding scale adjusted to high dose. Will monitor and adjust as needed. 03/10/2021; pending SNF placement. Covid test was positive on and . 03/11/2021; patient has hepatic encephalopathy and his ammonia level is very high, patient is currently on lactulose and rifaximin. Ammonia level is trendi ng down. Nephrology is following for dialysis. Patient has positive Covid test last one was on 03/08, that makes placement difficult. Continue with case management. 03/12: Still awaiting placement, discussed with nursing staff to monitor mental status changes. Will check ammonia level. Continue to adjust blood sugar. Complicated by COVID POSITIVELY. Awaiting placement for the patient. Also dialysis chair time. I have discussed with case management as my understanding was that patient was to go for hospice but this plan appears to have changed possibly not clear to me at this time 03/13: Continue supportive care crush medications that can be crushed. Ammonia level is elevated but not as elevated as previously. Continue lactulose advised nursing staff that this should be given as ordered to communicate with the night team also. Unfortunately when the patient gets better he refuses his lactulose. I truly believe that we should strongly consider palliative care for this patient but nevertheless if he wants to continue dialysis and will be compliant with his medications this is definitely an option can be pursued. Aspiration precautions monitor hemoglobin and platelets. 03/14: Patient seen and examined, more awake today. Continue supportive care, patient was made DNR ealier, signed the form today after confirming the patient and also the physician. Monitor for fever. AWAITING PLACEMENT. poor prognosis 03/15/21 Patient is seen and examined. Lab and medication reviewed. Patient denied any chest pain or shortness of breath. Patient is more awake alert today. Patient is getting them hemodialysis today. Continue current management. Awaiting placement. - Patient Problems (1) End-stage renal disease needing dialysis Current Visit: Yes Status: Acute (2) Diabetes 1.5, managed as type 2 Current Visit: Yes Status: Acute (3) Anemia Current Visit: Yes Status: Acute (4) Case management patient Current Visit: Yes Status: Acute (5) Chronic liver disease and cirrhosis Current Visit: Yes Status: Acute (6) Hyponatremia Current Visit: No Status: Acute (7) Hypertension Current Visit: Yes Status: Acute (8) DVT prophylaxis Current Visit: No Status: Acute History Interval history: Patient is seen and examined. Lab and medication is reviewed. Patient is more awake alert. Patient denied any new complain Hospitalist Physical - Constitutional Vitals: Temp Pulse Resp BP Pulse Ox 99.3 F 77 18 143/49 94 03/15/21 04:20 03/15/21 06:04 03/15/21 06:04 03/15/21 06:04 03/15/21 06:04 General appearance: Present: no acute distress, well-nourished Results - Labs CBC & Chem 7: 03/14/21 07:24 03/14/21 07:24 Labs: Laboratory Last Values WBC 4.4 K/mm3 (4.5-11.0) L 03/14/21 07:24 RBC 2.96 M/mm3 (3.65-5.03) L 03/14/21 07:24 Hgb 9.4 gm/dl (11.8-15.2) L 03/14/21 07:24 Hct 26.7 % (35.5-45.6) L 03/14/21 07:24 MCV 90 fl (84-94) 03/14/21 07:24 MCH 32 pg (28-32) 03/14/21 07:24 MCHC 35 % (32-34) H 03/14/21 07:24 RDW 16.3 % (13.2-15.2) H 03/14/21 07:24 Plt Count 100 K/mm3 (140-440) L 03/14/21 07:24 Lymph % (Auto) 17.4 % (13.4-35.0) 03/08/21 07:06 [place] % (Auto) 14.8 % (0.0-7.3) H 03/08/21 07:06 Eos % (Auto) 1.1 % (0.0-4.3) 03/08/21 07:06 Baso % (Auto) 0.5 % (0.0-1.8) 03/08/21 07:06 Lymph # (Auto) 0.5 K/mm3 (1.2-5.4) L 03/08/21 07:06 [place] # (Auto) 0.4 K/mm3 (0.0-0.8) 03/08/21 07:06 Eos # (Auto) 0.0 K/mm3 (0.0-0.4) 03/08/21 07:06 Baso # (Auto) 0.0 K/mm3 (0.0-0.1) 03/08/21 07:06 Add Manual Diff Complete 03/07/21 05:23 Total Counted 100 03/07/21 05:23 Seg Neutrophils % 66.2 % (40.0-70.0) 03/08/21 07:06 Seg Neuts % (Manual) 78.0 % (40.0-70.0) H 03/07/21 05:23 Lymphocytes % (Manual) 13.0 % (13.4-35.0) L 03/07/21 05:23 Monocytes % (Manual) 9.0 % (0.0-7.3) H 03/07/21 05:23 Nucleated RBC % Not Reportable 03/07/21 05:23 Seg Neutrophils # 1.8 K/mm3 (1.8-7.7) 03/08/21 07:06 Seg Neutrophils # Man 2.0 K/mm3 (1.8-7.7) 03/07/21 05:23 Band Neutrophils # 0.0 K/mm3 03/07/21 05:23 Lymphocytes # (Manual) 0.3 K/mm3 (1.2-5.4) L 03/07/21 05:23 Abs React Lymphs (Man) 0.0 K/mm3 03/07/21 05:23 Monocytes # (Manual) 0.2 K/mm3 (0.0-0.8) 03/07/21 05:23 Eosinophils # (Manual) 0.0 K/mm3 (0.0-0.4) 03/07/21 05:23 Basophils # (Manual) 0.0 K/mm3 (0.0-0.1) 03/07/21 05:23 Metamyelocytes # 0.0 K/mm3 03/07/21 05:23 Myelocytes # 0.0 K/mm3 03/07/21 05:23 Promyelocytes # 0.0 K/mm3 03/07/21 05:23 Blast Cells # 0.0 K/mm3 03/07/21 05:23 WBC Morphology Not Reportable 03/07/21 05:23 Hypersegmented Neuts Not Reportable 03/07/21 05:23 Hyposegmented Neuts Not Reportable 03/07/21 05:23 Hypogranular Neuts Not Reportable 03/07/21 05:23 Smudge Cells Not Reportable 03/07/21 05:23 Toxic Granulation Not Reportable 03/07/21 05:23 Toxic Vacuolation Not Reportable 03/07/21 05:23 Dohle Bodies Not Reportable 03/07/21 05:23 Pelger-Huet Anomaly Not Reportable 03/07/21 05:23 Cosme Rods Not Reportable 03/07/21 05:23 Platelet Estimate Consistent w auto 03/07/21 05:23 Clumped Platelets Not Reportable 03/07/21 05:23 Plt Clumps, EDTA Not Reportable 03/07/21 05:23 Large Platelets Not Reportable 03/07/21 05:23 Giant Platelets Not Reportable 03/07/21 05:23 Platelet Satelliting Not Reportable 03/07/21 05:23 Plt Morphology Comment Not Reportable 03/07/21 05:23 RBC Morphology Not Reportable 03/07/21 05:23 Dimorphic RBCs Not Reportable 03/07/21 05:23 Polychromasia Not Reportable 03/07/21 05:23 Hypochromasia Not Reportable 03/07/21 05:23 Poikilocytosis Not Reportable 03/07/21 05:23 Anisocytosis Few 03/07/21 05:23 Microcytosis Not Reportable 03/07/21 05:23 Macrocytosis Not Reportable 03/07/21 05:23 Spherocytes Not Reportable 03/07/21 05:23 Pappenheimer Bodies Not Reportable 03/07/21 05:23 Sickle Cells Not Reportable 03/07/21 05:23 Target Cells Not Reportable 03/07/21 05:23 Tear Drop Cells Not Reportable 03/07/21 05:23 Ovalocytes Not Reportable 03/07/21 05:23 Helmet Cells Not Reportable 03/07/21 05:23 Mercado-Florien Bodies Not Reportable 03/07/21 05:23 [place] Rings Not Reportable 03/07/21 05:23 Kathy Cells Not Reportable 03/07/21 05:23 Bite Cells Not Reportable 03/07/21 05:23 Crenated Cell Not Reportable 03/07/21 05:23 Elliptocytes Not Reportable 03/07/21 05:23 Acanthocytes (Spur) Not Reportable 03/07/21 05:23 Rouleaux Not Reportable 03/07/21 05:23 Hemoglobin C Crystals Not Reportable 03/07/21 05:23 Schistocytes Not Reportable 03/07/21 05:23 Malaria parasites Not Reportable 03/07/21 05:23 Samir Bodies Not Reportable 03/07/21 05:23 Hem Pathologist Commnt No 03/07/21 05:23 PT 13.7 Sec. (12.2-14.9) 02/26/21 04:33 INR 1.00 (0.87-1.13) 02/26/21 04:33 Sodium 135 mmol/L (137-145) L 03/14/21 07:24 Potassium 4.5 mmol/L (3.6-5.0) 03/14/21 07:24 Chloride 94.3 mmol/L (98-107) L 03/14/21 07:24 Carbon Dioxide 26 mmol/L (22-30) 03/14/21 07:24 Anion Gap 19 mmol/L 03/14/21 07:24 BUN 44 mg/dL (9-20) H 03/14/21 07:24 Creatinine 5.3 mg/dL (0.8-1.3) H 03/14/21 07:24 Estimated GFR 11 ml/min 03/14/21 07:24 BUN/Creatinine Ratio 8 % 03/14/21 07:24 Glucose 191 mg/dL (75-100) H 03/14/21 07:24 POC Glucose 229 mg/dL (70-105) H 03/15/21 07:39 Hemoglobin A1c 7.4 % (4-6) H 02/26/21 04:33 Calcium 8.2 mg/dL (8.4-10.2) L 03/14/21 07:24 Magnesium 2.10 mg/dL (1.7-2.3) 02/17/21 02:24 Total Bilirubin 0.60 mg/dL (0.1-1.2) 03/14/21 07:24 Direct Bilirubin 0.3 mg/dL (0-0.2) H 03/14/21 07:24 Indirect Bilirubin 0.3 mg/dL 03/14/21 07:24 AST 57 units/L (5-40) H 03/14/21 07:24 ALT 24 units/L (7-56) 03/14/21 07:24 Alkaline Phosphatase 179 units/L (35-129) H 03/14/21 07:24 Ammonia 30.0 umol/L (25-60) 03/14/21 07:24 Total Creatine Kinase 86 units/L (55-170) 02/17/21 02:24 Total Protein 6.2 g/dL (6.3-8.2) L 03/14/21 07:24 Albumin 2.3 g/dL (3.9-5) L 03/14/21 07:24 Albumin/Globulin Ratio 0.6 % 03/14/21 07:24 TSH 0.986 mlU/mL (0.270-4.200) 02/17/21 02:24 Urine Color Yellow (Yellow) 02/17/21 Unknown Urine Turbidity Clear (Clear) 02/17/21 Unknown Urine pH 6.0 (5.0-7.0) 02/17/21 Unknown Ur Specific Menan 1.012 (1.003-1.030) 02/17/21 Unknown Urine Protein 100 mg/dl mg/dL (Negative) 02/17/21 Unknown Urine Glucose (UA) >=500 mg/dL (Negative) 02/17/21 Unknown Urine Ketones Neg mg/dL (Negative) 02/17/21 Unknown Urine Blood Neg (Negative) 02/17/21 Unknown Urine Nitrite Neg (Negative) 02/17/21 Unknown Urine Bilirubin Neg (Negative) 02/17/21 Unknown Urine Urobilinogen < 2.0 mg/dL (<2.0) 02/17/21 Unknown Ur Leukocyte Esterase Neg (Negative) 02/17/21 Unknown Urine WBC (Auto) 2.0 /HPF (0.0-6.0) 02/17/21 Unknown Urine RBC (Auto) 2.0 /HPF (0.0-6.0) 02/17/21 Unknown U Epithel Cells (Auto) < 1.0 /HPF (0-13.0) 02/17/21 Unknown Urine Bacteria (Auto) 1+ /HPF (Negative) 02/17/21 Unknown Salicylates < 0.3 mg/dL (2.8-20.0) L 02/17/21 02:24 Acetaminophen 5.0 ug/mL (10.0-30.0) L 02/17/21 02:24 Coronavirus (PCR) Positive (Negative) A 03/08/21 10:57 Hepatitis A IgM Ab Non-reactive (NonReactive) 02/28/21 12:37 Hep Bs Antigen Non-reactive (Negative) 02/28/21 12:37 Hep B Core IgM Ab Non-reactive (NonReactive) 02/28/21 12:37 Hepatitis C Antibody Non-reactive (NonReactive) 02/28/21 12:37 Blood Type A POSITIVE 03/07/21 06:31 Antibody Screen Negative 03/07/21 06:31 Crossmatch See Detail 03/07/21 06:31 Sr/IV: Voiding Method Incontinent Active Medications - Current Medications Current Medications: Generic Name Dose Route Start Last Admin Trade Name Freq PRN Reason Stop Dose Admin Acetaminophen 650 mg 02/18/21 22:38 03/09/21 13:15 Acetaminophen 325 Mg Tab PO 650 mg Q4H PRN Administration Pain MILD(1-3)/Fever >100.5/MOLINA Albuterol 2.5 mg 02/18/21 22:38 Albuterol 2.5 Mg/3 Ml Nebu IH Q3HRT PRN Shortness Of Breath Allopurinol 100 mg 02/20/21 10:00 03/14/21 10:32 Allopurinol 100 Mg Tab PO Not Given QDAY [facility] Calcium Acetate 1,334 mg 02/20/21 08:30 03/15/21 09:47 Calcium Acetate 667 Mg Cap PO Not Given TIDWM LEYLA Dextrose 0 ml 02/18/21 23:00 02/25/21 16:56 Dextrose 50% In Water (25gm) 50 Ml Syringe IV 50 ml Q30MIN PRN Administration Hypoglycemia Protocol Diphenhydramine HCl 25 mg 02/23/21 09:10 03/01/21 10:30 Diphenhydramine 25 Mg Cap PO 25 mg BID PRN Administration Itching Famotidine 20 mg 02/19/21 10:00 03/14/21 10:32 Famotidine 20 Mg Tab PO Not Given QAM LEYLA Hydralazine HCl 10 mg 02/18/21 22:56 Hydralazine 20 Mg/1 Ml Inj IV Q6H PRN htn Sodium Chloride 100 mls @ 999 mls/hr 02/19/21 09:06 Nacl 0.9% IV OLIVIA PRN Hypotension Dextrose/Sodium Chloride 1,000 mls @ 50 mls/hr 03/12/21 15:00 03/14/21 17:08 D5/0.45ns IV 50 mls/hr DIRECT LEYLA Administration Insulin Glargine 10 units 03/09/21 22:00 03/14/21 23:24 Insulin Glargine 100 Units/Ml SUB-Q 10 units QHS LEYLA Administration Insulin Human Lispro 0 unit 03/09/21 22:00 03/15/21 09:47 Insulin Lispro 100 Unit/Ml SUB-Q Not Given ACHS [facility] Protocol Lactulose 20 gm 03/09/21 18:00 03/15/21 06:05 Lactulose 20 Gm/30 Ml Oral Liqd PO 20 gm Q6HR LEYLA Administration Ondansetron HCl 4 mg 02/18/21 22:38 02/28/21 12:32 Ondansetron 4 Mg/2 Ml Inj IV 4 mg Q8H PRN Administration Nausea And Vomiting Polyethylene Glycol 17 gm 02/24/21 12:08 02/24/21 12:47 Polyethylene Glycol 3350 17 Gm Powder PO 17 gm QDAY PRN Administration Constipation Propranolol HCl 20 mg 02/20/21 10:00 03/14/21 23:23 Propranolol 10 Mg Tab PO 20 mg BID LEYLA Administration Rifaximin 550 mg 03/10/21 12:00 03/14/21 23:23 Rifaximin 550 Mg Tab PO 550 mg BID LEYLA Administration Sodium Chloride 10 ml 02/19/21 10:00 03/15/21 09:47 Sodium Chloride 0.9% 10 Ml Flush Syringe IV Not Given BID LEYLA Sodium Chloride 10 ml 02/18/21 22:38 Sodium Chloride 0.9% 10 Ml Flush Syringe IV PRN PRN LINE FLUSH Tramadol HCl 50 mg 02/24/21 13:20 02/25/21 10:17 Tramadol 50 Mg Tab PO 50 mg Q6H PRN Administration Pain, Moderate (4-6) Zolpidem Tartrate 5 mg 02/24/21 09:54 03/08/21 23:25 Zolpidem 5 Mg Tab PO 5 mg QHS PRN Administration Sleep Nutrition/Malnutrition Assess - Dietary Evaluation Nutrition/Malnutrition Findings: Nutrition Notes Start: 02/19/21 10:48 Freq: Status: Active Protocol: Document 03/13/21 14:06 (Rec: 03/13/21 14:08 ALISSA [id number]) Nutrition Notes Initial or Follow up Reassessment Current Diagnosis CKD (stage V CKD),Diabetes Other Pertinent Diagnosis COVID-19 (+), hepatic encephalopathy, ascites Current Diet Renal/Consistent CHO + Nepro once daily Labs/Tests POC 204 Pertinent Medications D5 1/2 NS at 50ml/hr Height 5 ft 11 in Weight 69.3 kg [place] Body Weight (kg) 78.18 BMI 21.3 Weight Status Appropriate Subjective/Other Information Pt consuming <25% of meals or refusing meals. Unable to reach pt for food prefrences. Percent of energy/protein needs met: Negligible Burn Absent Trauma Absent Current % PO Negligible Minimum of two criteria Yes Body Fat Depletion Mild depletion (non-severe) Fluid Accumulation Mild (non-severe) #2 Nutrition Diagnosis Increased nutrient needs ( specify in comment below) Diagnosis Progress(for reassessment Continues documentation) #1 Nutrition Diagnosis Malnutrition Diagnosis Progress(for reassessment Continues documentation) Is patient on ventilator? No Is Patient Ambulatory and/or Out of Bed No REE-([place]-confined to bed) 1739.702 Calculation Used for Recommendations [place] Additional Notes Pro needs >1.2g/kg/day Fluid needs 1-1.5L/day Nutrition Intervention Change Diet Order: Continue current diet order Add Supplement/Snack (indicate name/kcal Nepro daily /protein ) Provides kCal: 425 Provides Protein (gm) 19 Goal #1 PO intake of meals plus ONS to meet at least 75% energy and pro needs Goal #2 Wound healing Follow-Up By: 03/15/21 Additional Comments F/U: intakes (meals/ONS) - Malnutrition Assessment Minimum of two criteria: Yes - Attestation Statement I have reviewed and agreed w/ Malnutrition eval & tx plan: Yes
--- NOTE | 2021-03-15 10:36 | Progress Note ---
Assessment and Plan 1. ESRD: Patient is on maintenance hemodialysis three times a week, MWF schedule. Meds dosage based on GFR. Missed HD 02/18. Hemodialysis: 02/19, 02/20, 02/22, 02/25, 02/27, 03/01, 03/04, 03/06, 03/08, 03/11, 03/13, 03/15. 2. FEN: Hyperkalemia, improved. Monitor lytes and volume status. 3. Anemia, POA: 2/2 ESRD and Liver disease. Epogen with HD. PRBC as needed. 4. Cirrhosis with h/o hepatic encephalopathy: Lactulose. Monitor. 5. DM type 2: SSI. Monitor. 6. Thrombocytopenia, POA: 7. Hypertension: Monitor BP. Adjust meds as appropriate. Await placement. Subjective: Patient was seen and examined at the bedside. General Appearance: General appearance: well-developed, appears stated age, not in distress HEENT: ATNC, pupils equal Neck: trachea midline Respiratory: ctab Heart: regular, S1S2, no murmur Abdomen: soft, bowel sounds heard, not tender Integumentary: no rash, warm and dry Neurologic: lethargic, non-verbal, not following any command Ext: no edema, R BKA Hemodialysis access: R arm AVF Subjective Date of service: 03/15/21 Objective - Vital Signs Vital signs: Vital Signs - 12hr 03/15/21 03/15/21 04:20 06:04 Temperature 99.3 F Pulse Rate 81 77 Respiratory 20 18 Rate Blood Pressure 176/48 Blood Pressure 143/49 [Left] O2 Sat by Pulse 92 94 Oximetry - Lab 03/14/21 07:24 03/14/21 07:24 Most recent lab results Calcium 8.2 mg/dL (8.4-10.2) L 03/14/21 07:24 Magnesium 2.10 mg/dL (1.7-2.3) 02/17/21 02:24 Medications & Allergies - Medications Allergies/Adverse Reactions: Allergies No Known Allergies Allergy (Verified 02/16/21 18:26) Home Medications: Home Medications Medication Instructions Recorded Confirmed Last Taken Type Calcium Acetate [Phoslo] 1,334 mg PO TIDWM #90 capsule 03/01/21 Unknown Rx Famotidine [Pepcid] 20 mg PO QAM #30 tablet 03/01/21 Unknown Rx Lactulose [Cephulac] 20 gm PO Q8HR 30 Days 03/01/21 Unknown Rx Lispro Insulin [HumaLOG] See Protocol SQ ACHS 30 Days 03/01/21 Unknown Rx allopurinoL [Zyloprim] 100 mg PO QDAY #30 tablet 03/01/21 Unknown Rx propranoloL [Inderal] 20 mg PO BID #60 tablet 03/01/21 Unknown Rx Active Medications: Generic Name Dose Route Start Last Admin Trade Name Freq PRN Reason Stop Dose Admin Acetaminophen 650 mg 02/18/21 22:38 03/09/21 13:15 Acetaminophen 325 Mg Tab PO 650 mg Q4H PRN Administration Pain MILD(1-3)/Fever >100.5/MOLINA Albuterol 2.5 mg 02/18/21 22:38 Albuterol 2.5 Mg/3 Ml Nebu IH Q3HRT PRN Shortness Of Breath Allopurinol 100 mg 02/20/21 10:00 03/14/21 10:32 Allopurinol 100 Mg Tab PO Not Given QDAY LEYLA Calcium Acetate 1,334 mg 02/20/21 08:30 03/15/21 09:47 Calcium Acetate 667 Mg Cap PO Not Given TIDWM LEYLA Dextrose 0 ml 02/18/21 23:00 02/25/21 16:56 Dextrose 50% In Water (25gm) 50 Ml Syringe IV 50 ml Q30MIN PRN Administration Hypoglycemia Protocol Diphenhydramine HCl 25 mg 02/23/21 09:10 03/01/21 10:30 Diphenhydramine 25 Mg Cap PO 25 mg BID PRN Administration Itching Famotidine 20 mg 02/19/21 10:00 03/14/21 10:32 Famotidine 20 Mg Tab PO Not Given QAM LEYLA Hydralazine HCl 10 mg 02/18/21 22:56 Hydralazine 20 Mg/1 Ml Inj IV Q6H PRN htn Sodium Chloride 100 mls @ 999 mls/hr 02/19/21 09:06 Nacl 0.9% IV OLIVIA PRN Hypotension Dextrose/Sodium Chloride 1,000 mls @ 50 mls/hr 03/12/21 15:00 03/14/21 17:08 D5/0.45ns IV 50 mls/hr DIRECT LEYLA Administration Insulin Glargine 10 units 03/09/21 22:00 03/14/21 23:24 Insulin Glargine 100 Units/Ml SUB-Q 10 units QHS LEYLA Administration Insulin Human Lispro 0 unit 03/09/21 22:00 03/15/21 09:47 Insulin Lispro 100 Unit/Ml SUB-Q Not Given ACHS [facility] Protocol Lactulose 20 gm 03/09/21 18:00 03/15/21 06:05 Lactulose 20 Gm/30 Ml Oral Liqd PO 20 gm Q6HR LEYLA Administration Ondansetron HCl 4 mg 02/18/21 22:38 02/28/21 12:32 Ondansetron 4 Mg/2 Ml Inj IV 4 mg Q8H PRN Administration Nausea And Vomiting Polyethylene Glycol 17 gm 02/24/21 12:08 02/24/21 12:47 Polyethylene Glycol 3350 17 Gm Powder PO 17 gm QDAY PRN Administration Constipation Propranolol HCl 20 mg 02/20/21 10:00 03/14/21 23:23 Propranolol 10 Mg Tab PO 20 mg BID LEYLA Administration Rifaximin 550 mg 03/10/21 12:00 03/14/21 23:23 Rifaximin 550 Mg Tab PO 550 mg BID LEYLA Administration Sodium Chloride 10 ml 02/19/21 10:00 03/15/21 09:47 Sodium Chloride 0.9% 10 Ml Flush Syringe IV Not Given BID LEYLA Sodium Chloride 10 ml 02/18/21 22:38 Sodium Chloride 0.9% 10 Ml Flush Syringe IV PRN PRN LINE FLUSH Tramadol HCl 50 mg 02/24/21 13:20 02/25/21 10:17 Tramadol 50 Mg Tab PO 50 mg Q6H PRN Administration Pain, Moderate (4-6) Zolpidem Tartrate 5 mg 02/24/21 09:54 03/08/21 23:25 Zolpidem 5 Mg Tab PO 5 mg QHS PRN Administration Sleep
[2021-03-15] MEDS: D5W/0.45% NACL 1,000 ML IV SCH (13:23)
[2021-03-15] MEDS: allopurinoL 100 MG TAB PO SCH (13:24)
[2021-03-15] MEDS: RIFAXIMIN 550 MG TAB PO SCH ×2 (13:24→21:52)
[2021-03-15] MEDS: PROPRANOLOL 10 MG TAB PO SCH ×2 (13:24→21:52)
[2021-03-15] MEDS: FAMOTIDINE 20 MG TAB PO SCH (13:24)
[2021-03-15] MEDS: INSULIN GLARGINE 100 UNITS/ML SUB-Q SCH (21:52)
[2021-03-16] MEDS: LACTULOSE 20 GM/30 ML ORAL LIQD PO SCH ×6 (00:21→23:10)
[2021-03-16] MEDS: D5W/0.45% NACL 1,000 ML IV SCH ×2 (05:54→23:12)
[2021-03-16] MEDS: INSULIN LISPRO 100 UNIT/ML SUB-Q SCH ×4 (07:30→23:06)
[2021-03-16 07:32] LABS: Basophils % (Auto) 0.3 % (0.0-1.8); Eosinophils % (Auto) 0.2 % (0.0-4.3); Hematocrit 23.9 % (35.5-45.6); Lymphocytes # (Auto) 0.4 K/mm3 (1.2-5.4); Lymphocytes % (Auto) 8.7 % (13.4-35.0); Mean Corpuscular HGB Conc 34 % (32-34); Mean Corpuscular Volume 92 fl (84-94); Monocytes # (Auto) 0.5 K/mm3 (0.0-0.8); Monocytes % (Auto) 11.6 % (0.0-7.3); Red Cell Distribution Width 15.7 % (13.2-15.2)
[2021-03-16 07:49] LABS: Calcium 7.8 mg/dL (8.4-10.2)
[2021-03-16 07:58] LABS: Platelet Count 95 K/mm3 (140-440)
[2021-03-16] MEDS: CALCIUM ACETATE 667 MG CAP PO SCH ×3 (08:00→17:01)
[2021-03-16] MEDS: RIFAXIMIN 550 MG TAB PO SCH ×3 (08:56→21:03)
[2021-03-16] MEDS: allopurinoL 100 MG TAB PO SCH ×2 (08:57→16:59)
[2021-03-16] MEDS: PROPRANOLOL 10 MG TAB PO SCH ×3 (08:57→21:04)
[2021-03-16] MEDS: FAMOTIDINE 20 MG TAB PO SCH ×2 (08:58→16:59)
--- NOTE | 2021-03-16 11:04 | Progress Note ---
Assessment and Plan Assessment and plan: Assessment and plan: 55 YO Male with ESRD on HD, Noncompliance with outpatient dialysis, Anemia, HBV, Chronic Liver Disease, Cirrhosis complicated by Esophageal Varices, HTN, Mahnaz ility, DM presents to ED with confusion with diminished cognition. Patient family report the patient was "not acting like himself" and found to have worsening confusion over the past 2 days. In the ER the patient was found to have hepatic encephalopathy complicated by diminished cognition, end-stage renal disease in need of urgent dialysis, as well as uncontrolled diabetes, and acidosis. Nephrology team consulted in ED and patient was then admitted for further evaluation and Mx. A/p -- Hepatic encephalopathy due to hepatic cirrhosis cont lactulose, Neuro check, seizure precaution, aspiration precaution, fall precautions, continue to monitor. -- End stage renal disease Nephrology team consulted, strict I's/O, monitor urine output every shift, dialysis as per renal team, avoid nephrotoxic agents. --Metabolic Acidosis Nephrology team consulted, dialysis as per renal team. --Hyponatremia Monitor BMP, monitor fluid balance. -- Hyperammonemia Continue lactulose --Diabetes mellitus with hyperglycemia Consistent carb diet, SSI -- hyperkalemia, Improvement with dialysis --Ascitis, s/p paracentesis drained 6.2l of ascitic fluid --Sacral wound, cont wound care -- Moderate Protein Calorie Malnutrition, nutrition consulted --Noncompliance, counseled for medication compliance --DVT Px, SCD --DNR code status --Disposition: needs placement, CM waiting for placement Daily clinical course: 02/19: Resume dialysis will adjust insulin for better coverage. Very poor prognosis considering poor medical compliance. Agree with hospice recommendation. Will obtain wound care to continue to manage. Monitor anemia as patient was pretty anemic during the last hospitalization. Required transfusion. 02/20: Continues to undergo dialysis no change in mental status noted. Tolerating medications. Blood sugar mildly elevated adjusted insulin yesterday when awake for the patient received a dose today and if still elevated will adjust. Again case management is working on discharge plan for this patient as he is pending placement 02/21 patient complains of right hip pain. He said he fell few weeks ago and is concerned about another fracture. He had a fracture about 8 weeks ago and had surgery. Will obtain X ray right hip. Patient pending placement. 02/22 Patient seen in Dialysis Unit. He states hip pain improved. No other com plaints. Right hip X ray done yesterday report read may be healing fracture or acute fracture. Will discuss with Orthopedic Surgeon Patient pending placement 02/23 Less hip pain. Today complains of generalized itching. Will start Benadryl po prn. Orthopedic consulted to evaluate right hip. Patient pending placement 02/24 Less hip pain. Generalized itching now resolved. Orthopedic consulted to evaluate right hip. He complains of sleeplessness. Will give Ambien prn Patient pending placement 02/25 Patient requested DNR status yesterday. I discussed with him and he signed forms. He also complains of worsening abdominal distension and requested tapping, Will order paracentesis. Right hip evaluated by Dr. Trivedi and conservative management recommended. 02/26: Plan for paracentesis today. Need to set up dialysis as outpatient. animal shelter manager working on discharge planning. 02/27: Patient did not sign the consent for paracentesis yesterday so paracentesis was done today and aspirated 6.2L ascitic fluid. Patient refusing medication per RN. Getting dialysis. Patient noted slightly altered today, will place NG tube remains altered and keep refusing oral meds, order for ammonia level and will cont lactulose. 02/28: Patient appears much more calm and cooperative today. He stated that he has been refusing procedure and medication as he believes he was not in the right state of his mind. Patient acknowledges the importance of being compliant and he promises that he will take the medications as he will be given. Discharge planning per case management as patient would need outpatient dialysis center set up and personal fdc set up. 03/01/21: Patient has fpc setting but according to nurse case manager no available RN to accept the patient till Thursday. Continue supportive care. Discharge pending on placement. 03/02/21 -03/04/21: Discharge pending on placement, continue to monitor clinically. Continue current management and plan and supportive care. Patient need SNF placement. 03/05/2021; Awaiting SNF placement for discharge. Prognosis is very poor. Patient is nonresponsive. I try to reach to his son over the phone but could not get in touch. Patient is appropriate for hospice care. 03/06/2021; patient is awaiting SNF placement. Patient was alert and oriented. No confusion. Patient is stable to be discharged back to SNF. 03/07/2021; patient has hemoglobin of 6.8 this morning. A unit of blood ordered. Will monitor H&H. Nephrology is following for dialysis. 03/08/2021; patient's hemoglobin was 6.8 yesterday and transfused a unit of blood. I ordered yesterday to do posttransfusion H&H and was not done. CBC was ordered to be done this morning but was not done. COVID-19 test was done on 03/06 and positive. Nephrology is following the patient for his dialysis. Plan is to discharge him to SNF. Will follow with case management because patient is Covid positive. 03/09/2021; patient's repeat Covid test on 03/08/2021 was positive. Patient is pending for SNF Placement. Patient had hypoglycemia yesterday and patient was placed on Lantus and his sli ding scale adjusted to high dose. Will monitor and adjust as needed. 03/10/2021; pending SNF placement. Covid test was positive on and . 03/11/2021; patient has hepatic encephalopathy and his ammonia level is very high, patient is currently on lactulose and rifaximin. Ammonia level is trendi ng down. Nephrology is following for dialysis. Patient has positive Covid test last one was on 03/08, that makes placement difficult. Continue with case management. 03/12: Still awaiting placement, discussed with nursing staff to monitor mental status changes. Will check ammonia level. Continue to adjust blood sugar. Complicated by COVID POSITIVELY. Awaiting placement for the patient. Also dialysis chair time. I have discussed with case management as my understanding was that patient was to go for hospice but this plan appears to have changed possibly not clear to me at this time 03/13: Continue supportive care crush medications that can be crushed. Ammonia level is elevated but not as elevated as previously. Continue lactulose advised nursing staff that this should be given as ordered to communicate with the night team also. Unfortunately when the patient gets better he refuses his lactulose. I truly believe that we should strongly consider palliative care for this patient but nevertheless if he wants to continue dialysis and will be compliant with his medications this is definitely an option can be pursued. Aspiration precautions monitor hemoglobin and platelets. 03/14: Patient seen and examined, more awake today. Continue supportive care, patient was made DNR ealier, signed the form today after confirming the patient and also the physician. Monitor for fever. AWAITING PLACEMENT. poor prognosis 03/15/21 Patient is seen and examined. Lab and medication reviewed. Patient denied any chest pain or shortness of breath. Patient is more awake alert today. Patient is getting them hemodialysis today. Continue current management. Awaiting placement. 03/16/21 patient seen and examined. Lab and medication reviewed. Patient feels better. Hemoglobin 8.2 and hematocrit 23.9. Complained of pain in the butt. No other complain. Continue current management and supportive care. Patient is waiting for placement. - Patient Problems (1) End-stage renal disease needing dialysis Current Visit: Yes Status: Acute (2) Diabetes 1.5, managed as type 2 Current Visit: Yes Status: Acute (3) Anemia Current Visit: Yes Status: Acute (4) Case management patient Current Visit: Yes Status: Acute (5) Chronic liver disease and cirrhosis Current Visit: Yes Status: Acute (6) Hyponatremia Current Visit: No Status: Acute (7) Hypertension Current Visit: Yes Status: Acute (8) DVT prophylaxis Current Visit: No Status: Acute History Interval history: Patient is seen and examined. Lab and medication is reviewed. Patient is more awake alert. Patient denied any new complain. Hospitalist Physical - Constitutional Vitals: Temp Pulse Resp BP Pulse Ox 98.7 F 78 20 120/80 89 03/16/21 05:22 03/16/21 08:57 03/16/21 05:22 03/16/21 08:57 03/16/21 05:22 General appearance: Present: no acute distress, well-nourished - EENT Eyes: Present: PERRL, EOM intact ENT: hearing intact, clear oral mucosa - Neck Neck: Present: supple, normal ROM - Respiratory Respiratory effort: normal Respiratory: bilateral: CTA - Cardiovascular Rhythm: regular Heart Sounds: Present: S1 & S2 - Extremities Extremities: no ischemia Peripheral Pulses: within normal limits - Abdominal General gastrointestinal: soft, non-tender, normal bowel sounds - Integumentary Integumentary: Present: clear, warm - Psychiatric Psychiatric: appropriate mood/affect, intact judgment & insight - Neurologic Neurologic: CNII-XII intact, moves all extremities Results - Labs CBC & Chem 7: 03/16/21 06:43 03/16/21 06:43 Labs: Laboratory Last Values WBC 4.5 K/mm3 (4.5-11.0) 03/16/21 06:43 RBC 2.60 M/mm3 (3.65-5.03) L 03/16/21 06:43 Hgb 8.0 gm/dl (11.8-15.2) L 03/16/21 06:43 Hct 23.9 % (35.5-45.6) L 03/16/21 06:43 MCV 92 fl (84-94) 03/16/21 06:43 MCH 31 pg (28-32) 03/16/21 06:43 MCHC 34 % (32-34) 03/16/21 06:43 RDW 15.7 % (13.2-15.2) H 03/16/21 06:43 Plt Count 95 K/mm3 (140-440) L 03/16/21 06:43 Lymph % (Auto) 8.7 % (13.4-35.0) L 03/16/21 06:43 [place] % (Auto) 11.6 % (0.0-7.3) H 03/16/21 06:43 Eos % (Auto) 0.2 % (0.0-4.3) 03/16/21 06:43 Baso % (Auto) 0.3 % (0.0-1.8) 03/16/21 06:43 Lymph # (Auto) 0.4 K/mm3 (1.2-5.4) L 03/16/21 06:43 [place] # (Auto) 0.5 K/mm3 (0.0-0.8) 03/16/21 06:43 Eos # (Auto) 0.0 K/mm3 (0.0-0.4) 03/16/21 06:43 Baso # (Auto) 0.0 K/mm3 (0.0-0.1) 03/16/21 06:43 Add Manual Diff Complete 03/07/21 05:23 Total Counted 100 03/07/21 05:23 Seg Neutrophils % 79.2 % (40.0-70.0) H 03/16/21 06:43 Seg Neuts % (Manual) 78.0 % (40.0-70.0) H 03/07/21 05:23 Lymphocytes % (Manual) 13.0 % (13.4-35.0) L 03/07/21 05:23 Monocytes % (Manual) 9.0 % (0.0-7.3) H 03/07/21 05:23 Nucleated RBC % Not Reportable 03/07/21 05:23 Seg Neutrophils # 3.6 K/mm3 (1.8-7.7) 03/16/21 06:43 Seg Neutrophils # Man 2.0 K/mm3 (1.8-7.7) 03/07/21 05:23 Band Neutrophils # 0.0 K/mm3 03/07/21 05:23 Lymphocytes # (Manual) 0.3 K/mm3 (1.2-5.4) L 03/07/21 05:23 Abs React Lymphs (Man) 0.0 K/mm3 03/07/21 05:23 Monocytes # (Manual) 0.2 K/mm3 (0.0-0.8) 03/07/21 05:23 Eosinophils # (Manual) 0.0 K/mm3 (0.0-0.4) 03/07/21 05:23 Basophils # (Manual) 0.0 K/mm3 (0.0-0.1) 03/07/21 05:23 Metamyelocytes # 0.0 K/mm3 03/07/21 05:23 Myelocytes # 0.0 K/mm3 03/07/21 05:23 Promyelocytes # 0.0 K/mm3 03/07/21 05:23 Blast Cells # 0.0 K/mm3 03/07/21 05:23 WBC Morphology Not Reportable 03/07/21 05:23 Hypersegmented Neuts Not Reportable 03/07/21 05:23 Hyposegmented Neuts Not Reportable 03/07/21 05:23 Hypogranular Neuts Not Reportable 03/07/21 05:23 Smudge Cells Not Reportable 03/07/21 05:23 Toxic Granulation Not Reportable 03/07/21 05:23 Toxic Vacuolation Not Reportable 03/07/21 05:23 Dohle Bodies Not Reportable 03/07/21 05:23 Pelger-Huet Anomaly Not Reportable 03/07/21 05:23 Cosme Rods Not Reportable 03/07/21 05:23 Platelet Estimate Consistent w auto 03/07/21 05:23 Clumped Platelets Not Reportable 03/07/21 05:23 Plt Clumps, EDTA Not Reportable 03/07/21 05:23 Large Platelets Not Reportable 03/07/21 05:23 Giant Platelets Not Reportable 03/07/21 05:23 Platelet Satelliting Not Reportable 03/07/21 05:23 Plt Morphology Comment Not Reportable 03/07/21 05:23 RBC Morphology Not Reportable 03/07/21 05:23 Dimorphic RBCs Not Reportable 03/07/21 05:23 Polychromasia Not Reportable 03/07/21 05:23 Hypochromasia Not Reportable 03/07/21 05:23 Poikilocytosis Not Reportable 03/07/21 05:23 Anisocytosis Few 03/07/21 05:23 Microcytosis Not Reportable 03/07/21 05:23 Macrocytosis Not Reportable 03/07/21 05:23 Spherocytes Not Reportable 03/07/21 05:23 Pappenheimer Bodies Not Reportable 03/07/21 05:23 Sickle Cells Not Reportable 03/07/21 05:23 Target Cells Not Reportable 03/07/21 05:23 Tear Drop Cells Not Reportable 03/07/21 05:23 Ovalocytes Not Reportable 03/07/21 05:23 Helmet Cells Not Reportable 03/07/21 05:23 [place] Bodies Not Reportable 03/07/21 05:23 [place] Rings Not Reportable 03/07/21 05:23 Kathy Cells Not Reportable 03/07/21 05:23 Bite Cells Not Reportable 03/07/21 05:23 Crenated Cell Not Reportable 03/07/21 05:23 Elliptocytes Not Reportable 03/07/21 05:23 Acanthocytes (Spur) Not Reportable 03/07/21 05:23 Rouleaux Not Reportable 03/07/21 05:23 Hemoglobin C Crystals Not Reportable 03/07/21 05:23 Schistocytes Not Reportable 03/07/21 05:23 Malaria parasites Not Reportable 03/07/21 05:23 Samir Bodies Not Reportable 03/07/21 05:23 Hem Pathologist Commnt No 03/07/21 05:23 PT 13.7 Sec. (12.2-14.9) 02/26/21 04:33 INR 1.00 (0.87-1.13) 02/26/21 04:33 Sodium 135 mmol/L (137-145) L 03/16/21 06:43 Potassium 3.6 mmol/L (3.6-5.0) 03/16/21 06:43 Chloride 95.5 mmol/L (98-107) L 03/16/21 06:43 Carbon Dioxide 30 mmol/L (22-30) 03/16/21 06:43 Anion Gap 13 mmol/L 03/16/21 06:43 BUN 37 mg/dL (9-20) H 03/16/21 06:43 Creatinine 5.2 mg/dL (0.8-1.3) H 03/16/21 06:43 Estimated GFR 12 ml/min 03/16/21 06:43 BUN/Creatinine Ratio 7 % 03/16/21 06:43 Glucose 187 mg/dL (75-100) H 03/16/21 06:43 POC Glucose 179 mg/dL (70-105) H 03/16/21 10:56 Hemoglobin A1c 7.4 % (4-6) H 02/26/21 04:33 Calcium 7.8 mg/dL (8.4-10.2) L 03/16/21 06:43 Magnesium 2.10 mg/dL (1.7-2.3) 02/17/21 02:24 Total Bilirubin 0.60 mg/dL (0.1-1.2) 03/14/21 07:24 Direct Bilirubin 0.3 mg/dL (0-0.2) H 03/14/21 07:24 Indirect Bilirubin 0.3 mg/dL 03/14/21 07:24 AST 57 units/L (5-40) H 03/14/21 07:24 ALT 24 units/L (7-56) 03/14/21 07:24 Alkaline Phosphatase 179 units/L (35-129) H 03/14/21 07:24 Ammonia 30.0 umol/L (25-60) 03/14/21 07:24 Total Creatine Kinase 86 units/L (55-170) 02/17/21 02:24 Total Protein 6.2 g/dL (6.3-8.2) L 03/14/21 07:24 Albumin 2.3 g/dL (3.9-5) L 03/14/21 07:24 Albumin/Globulin Ratio 0.6 % 03/14/21 07:24 TSH 0.986 mlU/mL (0.270-4.200) 02/17/21 02:24 Urine Color Yellow (Yellow) 02/17/21 Unknown Urine Turbidity Clear (Clear) 02/17/21 Unknown Urine pH 6.0 (5.0-7.0) 02/17/21 Unknown Ur Specific [place] 1.012 (1.003-1.030) 02/17/21 Unknown Urine Protein 100 mg/dl mg/dL (Negative) 02/17/21 Unknown Urine Glucose (UA) >=500 mg/dL (Negative) 02/17/21 Unknown Urine Ketones Neg mg/dL (Negative) 02/17/21 Unknown Urine Blood Neg (Negative) 02/17/21 Unknown Urine Nitrite Neg (Negative) 02/17/21 Unknown Urine Bilirubin Neg (Negative) 02/17/21 Unknown Urine Urobilinogen < 2.0 mg/dL (<2.0) 02/17/21 Unknown Ur Leukocyte Esterase Neg (Negative) 02/17/21 Unknown Urine WBC (Auto) 2.0 /HPF (0.0-6.0) 02/17/21 Unknown Urine RBC (Auto) 2.0 /HPF (0.0-6.0) 02/17/21 Unknown U Epithel Cells (Auto) < 1.0 /HPF (0-13.0) 02/17/21 Unknown Urine Bacteria (Auto) 1+ /HPF (Negative) 02/17/21 Unknown Salicylates < 0.3 mg/dL (2.8-20.0) L 02/17/21 02:24 Acetaminophen 5.0 ug/mL (10.0-30.0) L 02/17/21 02:24 Coronavirus (PCR) Positive (Negative) A 03/08/21 10:57 Hepatitis A IgM Ab Non-reactive (NonReactive) 02/28/21 12:37 Hep Bs Antigen Non-reactive (Negative) 02/28/21 12:37 Hep B Core IgM Ab Non-reactive (NonReactive) 02/28/21 12:37 Hepatitis C Antibody Non-reactive (NonReactive) 02/28/21 12:37 Blood Type A POSITIVE 03/07/21 06:31 Antibody Screen Negative 03/07/21 06:31 Crossmatch See Detail 03/07/21 06:31 Sr/IV: Voiding Method Incontinent Active Medications - Current Medications Current Medications: Generic Name Dose Route Start Last Admin Trade Name Freq PRN Reason Stop Dose Admin Acetaminophen 650 mg 02/18/21 22:38 03/09/21 13:15 Acetaminophen 325 Mg Tab PO 650 mg Q4H PRN Administration Pain MILD(1-3)/Fever >100.5/MOLINA Albuterol 2.5 mg 02/18/21 22:38 Albuterol 2.5 Mg/3 Ml Nebu IH Q3HRT PRN Shortness Of Breath Allopurinol 100 mg 02/20/21 10:00 03/16/21 08:57 Allopurinol 100 Mg Tab PO 100 mg QDAY LEYLA Administration Calcium Acetate 1,334 mg 02/20/21 08:30 03/16/21 08:00 Calcium Acetate 667 Mg Cap PO 1,334 mg TIDWM LEYLA Administration Dextrose 0 ml 02/18/21 23:00 02/25/21 16:56 Dextrose 50% In Water (25gm) 50 Ml Syringe IV 50 ml Q30MIN PRN Administration Hypoglycemia Protocol Diphenhydramine HCl 25 mg 02/23/21 09:10 03/01/21 10:30 Diphenhydramine 25 Mg Cap PO 25 mg BID PRN Administration Itching Famotidine 20 mg 02/19/21 10:00 03/16/21 08:58 Famotidine 20 Mg Tab PO 20 mg QAM LEYLA Administration Hydralazine HCl 10 mg 02/18/21 22:56 Hydralazine 20 Mg/1 Ml Inj IV Q6H PRN htn Sodium Chloride 100 mls @ 999 mls/hr 02/19/21 09:06 Nacl 0.9% IV OLIVIA PRN Hypotension Dextrose/Sodium Chloride 1,000 mls @ 50 mls/hr 03/12/21 15:00 03/16/21 05:54 D5/0.45ns IV 50 mls/hr DIRECT LEYLA Administration Insulin Glargine 10 units 03/09/21 22:00 03/15/21 21:52 Insulin Glargine 100 Units/Ml SUB-Q 10 units QHS LEYLA Administration Insulin Human Lispro 0 unit 03/09/21 22:00 03/16/21 07:30 Insulin Lispro 100 Unit/Ml SUB-Q 3 unit ACHS LEYLA Administration Protocol Lactulose 20 gm 03/09/21 18:00 03/16/21 05:14 Lactulose 20 Gm/30 Ml Oral Liqd PO Not Given Q6HR LEYLA Ondansetron HCl 4 mg 02/18/21 22:38 02/28/21 12:32 Ondansetron 4 Mg/2 Ml Inj IV 4 mg Q8H PRN Administration Nausea And Vomiting Polyethylene Glycol 17 gm 02/24/21 12:08 02/24/21 12:47 Polyethylene Glycol 3350 17 Gm Powder PO 17 gm QDAY PRN Administration Constipation Propranolol HCl 20 mg 02/20/21 10:00 03/16/21 08:57 Propranolol 10 Mg Tab PO 20 mg BID LEYLA Administration Rifaximin 550 mg 03/10/21 12:00 03/16/21 08:56 Rifaximin 550 Mg Tab PO 550 mg BID LEYLA Administration Sodium Chloride 10 ml 02/19/21 10:00 03/16/21 08:58 Sodium Chloride 0.9% 10 Ml Flush Syringe IV 10 ml BID LEYLA Administration Sodium Chloride 10 ml 02/18/21 22:38 Sodium Chloride 0.9% 10 Ml Flush Syringe IV PRN PRN LINE FLUSH Tramadol HCl 50 mg 02/24/21 13:20 02/25/21 10:17 Tramadol 50 Mg Tab PO 50 mg Q6H PRN Administration Pain, Moderate (4-6) Zolpidem Tartrate 5 mg 02/24/21 09:54 03/08/21 23:25 Zolpidem 5 Mg Tab PO 5 mg QHS PRN Administration Sleep Nutrition/Malnutrition Assess - Dietary Evaluation Nutrition/Malnutrition Findings: Nutrition Notes Start: 02/19/21 10:48 Freq: Status: Active Protocol: Document 03/15/21 11:14 LM (Rec: 03/15/21 11:28 LM [id number]) Nutrition Notes Initial or Follow up Reassessment Current Diagnosis CKD (stage V CKD),Diabetes Other Pertinent Diagnosis COVID-19 (+), hepatic encephalopathy, ascites Current Diet Renal/Consistent CHO + Nepro once daily Labs/Tests POC glu 229 BUN 14 Cr 5.3 Na 135 Pertinent Medications Reviewed Height 5 ft 11 in Weight 66.8 kg [place] Body Weight (kg) 78.18 BMI 20.5 Weight Status Appropriate Subjective/Other Information Unable to reach pt by phone. Per EMR pt ate 0% of breakfast , 75% dinner yesterday. Pt has had poor intakes >7 days. Percent of energy/protein needs met: Negligible Burn Absent Trauma Absent Current % PO Negligible Minimum of two criteria Yes Body Fat Depletion Mild depletion (non-severe) Fluid Accumulation Mild (non-severe) #2 Nutrition Diagnosis Increased nutrient needs ( specify in comment below) Diagnosis Progress(for reassessment Continues documentation) #1 Nutrition Diagnosis Malnutrition Diagnosis Progress(for reassessment Continues documentation) Is patient on ventilator? No Is Patient Ambulatory and/or Out of Bed No REE-([place]-St. Jeor-confined to bed) [phone] Calculation Used for Recommendations [facility] Additional Notes Pro needs >1.2g/kg/day Fluid needs 1-1.5L/day Nutrition Intervention Change Diet Order: Recommend enteral nutrition support if intakes continue > 50%. Nutrition Support: Nepro 1.8 at 45ml/hr Flush 200ml q4h Kcal 1,944 Protein (gm) 87 Fluid (mL) 785 Add Supplement/Snack (indicate name/kcal Nepro daily /protein ) Provides kCal: 425 Provides Protein (gm) 19 Goal #1 PO intake of meals plus ONS to meet at least 75% energy and pro needs or start TF Goal #2 Wound healing Follow-Up By: 03/18/21 Additional Comments F/U for PO/ONS intakes, POC - Malnutrition Assessment Minimum of two criteria: No - Attestation Statement I have reviewed and agreed w/ Malnutrition eval & tx plan: No
--- NOTE | 2021-03-16 13:14 | Progress Note ---
Assessment and Plan 1. ESRD: Patient is on maintenance hemodialysis three times a week, MWF schedule. Meds dosage based on GFR. Missed HD 02/18. Hemodialysis: 02/19, 02/20, 02/22, 02/25, 02/27, 03/01, 03/04, 03/06, 03/08, 03/11, 03/13, 03/15. 2. FEN: Hyperkalemia, improved. Monitor lytes and volume status. 3. Anemia, POA: 2/2 ESRD and Liver disease. Epogen with HD. PRBC as needed. 4. Cirrhosis with h/o hepatic encephalopathy: Lactulose. Monitor. 5. DM type 2: SSI. Monitor. 6. Thrombocytopenia, POA: 7. Hypertension: Monitor BP. Adjust meds as appropriate. Await placement. Subjective: Patient was seen and examined at the bedside. General Appearance: General appearance: well-developed, appears stated age, not in distress HEENT: ATNC, pupils equal Neck: trachea midline Respiratory: ctab Heart: regular, S1S2, no murmur Abdomen: soft, bowel sounds heard, not tender Integumentary: no rash, warm and dry Neurologic: lethargic, non-verbal, not following any command Ext: no edema, R BKA Hemodialysis access: R arm AVF Subjective Date of service: 03/16/21 Objective - Vital Signs Vital signs: Vital Signs - 12hr 03/16/21 03/16/21 03/16/21 05:22 08:57 10:59 Temperature 98.7 F 98.7 F Pulse Rate 78 78 77 Respiratory 20 22 Rate Blood Pressure 111/40 120/80 109/33 O2 Sat by Pulse 89 91 Oximetry - Lab 03/16/21 06:43 03/16/21 06:43 Most recent lab results Calcium 7.8 mg/dL (8.4-10.2) L 03/16/21 06:43 Magnesium 2.10 mg/dL (1.7-2.3) 02/17/21 02:24 Medications & Allergies - Medications Allergies/Adverse Reactions: Allergies No Known Allergies Allergy (Verified 02/16/21 18:26) Home Medications: Home Medications Medication Instructions Recorded Confirmed Last Taken Type Calcium Acetate [Phoslo] 1,334 mg PO TIDWM #90 capsule 03/01/21 Unknown Rx Famotidine [Pepcid] 20 mg PO QAM #30 tablet 03/01/21 Unknown Rx Lactulose [Cephulac] 20 gm PO Q8HR 30 Days 03/01/21 Unknown Rx Lispro Insulin [HumaLOG] See Protocol SQ ACHS 30 Days 03/01/21 Unknown Rx allopurinoL [Zyloprim] 100 mg PO QDAY #30 tablet 03/01/21 Unknown Rx propranoloL [Inderal] 20 mg PO BID #60 tablet 03/01/21 Unknown Rx Active Medications: Generic Name Dose Route Start Last Admin Trade Name Freq PRN Reason Stop Dose Admin Acetaminophen 650 mg 02/18/21 22:38 03/09/21 13:15 Acetaminophen 325 Mg Tab PO 650 mg Q4H PRN Administration Pain MILD(1-3)/Fever >100.5/MOLINA Albuterol 2.5 mg 02/18/21 22:38 Albuterol 2.5 Mg/3 Ml Nebu IH Q3HRT PRN Shortness Of Breath Allopurinol 100 mg 02/20/21 10:00 03/16/21 08:57 Allopurinol 100 Mg Tab PO 100 mg QDAY LEYLA Administration Calcium Acetate 1,334 mg 02/20/21 08:30 03/16/21 12:43 Calcium Acetate 667 Mg Cap PO Not Given TIDWM LEYLA Dextrose 0 ml 02/18/21 23:00 02/25/21 16:56 Dextrose 50% In Water (25gm) 50 Ml Syringe IV 50 ml Q30MIN PRN Administration Hypoglycemia Protocol Diphenhydramine HCl 25 mg 02/23/21 09:10 03/01/21 10:30 Diphenhydramine 25 Mg Cap PO 25 mg BID PRN Administration Itching Famotidine 20 mg 02/19/21 10:00 03/16/21 08:58 Famotidine 20 Mg Tab PO 20 mg QAM LEYLA Administration Hydralazine HCl 10 mg 02/18/21 22:56 Hydralazine 20 Mg/1 Ml Inj IV Q6H PRN htn Sodium Chloride 100 mls @ 999 mls/hr 02/19/21 09:06 Nacl 0.9% IV OLIVIA PRN Hypotension Dextrose/Sodium Chloride 1,000 mls @ 50 mls/hr 03/12/21 15:00 03/16/21 05:54 D5/0.45ns IV 50 mls/hr DIRECT LEYLA Administration Insulin Glargine 10 units 03/09/21 22:00 03/15/21 21:52 Insulin Glargine 100 Units/Ml SUB-Q 10 units QHS LEYLA Administration Insulin Human Lispro 0 unit 03/09/21 22:00 03/16/21 11:30 Insulin Lispro 100 Unit/Ml SUB-Q 3 unit ACHS LEYLA Administration Protocol Lactulose 20 gm 03/09/21 18:00 03/16/21 05:14 Lactulose 20 Gm/30 Ml Oral Liqd PO Not Given Q6HR [facility] Ondansetron HCl 4 mg 02/18/21 22:38 02/28/21 12:32 Ondansetron 4 Mg/2 Ml Inj IV 4 mg Q8H PRN Administration Nausea And Vomiting Polyethylene Glycol 17 gm 02/24/21 12:08 02/24/21 12:47 Polyethylene Glycol 3350 17 Gm Powder PO 17 gm QDAY PRN Administration Constipation Propranolol HCl 20 mg 02/20/21 10:00 03/16/21 08:57 Propranolol 10 Mg Tab PO 20 mg BID LEYLA Administration Rifaximin 550 mg 03/10/21 12:00 03/16/21 08:56 Rifaximin 550 Mg Tab PO 550 mg BID LEYLA Administration Sodium Chloride 10 ml 02/19/21 10:00 03/16/21 08:58 Sodium Chloride 0.9% 10 Ml Flush Syringe IV 10 ml BID LEYLA Administration Sodium Chloride 10 ml 02/18/21 22:38 Sodium Chloride 0.9% 10 Ml Flush Syringe IV PRN PRN LINE FLUSH Tramadol HCl 50 mg 02/24/21 13:20 02/25/21 10:17 Tramadol 50 Mg Tab PO 50 mg Q6H PRN Administration Pain, Moderate (4-6) Zolpidem Tartrate 5 mg 02/24/21 09:54 03/08/21 23:25 Zolpidem 5 Mg Tab PO 5 mg QHS PRN Administration Sleep
[2021-03-16] MEDS: traMADol 50 MG TAB PO PRN (21:03)
[2021-03-16] MEDS: INSULIN GLARGINE 100 UNITS/ML SUB-Q SCH (23:07)
[2021-03-17] MEDS: LACTULOSE 20 GM/30 ML ORAL LIQD PO SCH ×4 (05:54→23:01)
[2021-03-17] MEDS: INSULIN LISPRO 100 UNIT/ML SUB-Q SCH ×4 (07:30→22:42)
--- NOTE | 2021-03-17 09:10 | Progress Note ---
Assessment and Plan 1. ESRD: Patient is on maintenance hemodialysis three times a week, MWF schedule. Meds dosage based on GFR. Missed HD 02/18. Hemodialysis: 02/19, 02/20, 02/22, 02/25, 02/27, 03/01, 03/04, 03/06, 03/08, 03/11, 03/13, 03/15. 2. FEN: Hyperkalemia, improved. Monitor lytes and volume status. 3. Anemia, POA: 2/2 ESRD and Liver disease. Epogen with HD. PRBC as needed. 4. Cirrhosis with h/o hepatic encephalopathy: Lactulose. Monitor. 5. DM type 2: SSI. Monitor. 6. Thrombocytopenia, POA: 7. Hypertension: Monitor BP. Adjust meds as appropriate. Await placement. Subjective: Patient was seen and examined at the bedside. General Appearance: General appearance: well-developed, appears stated age, not in distress HEENT: ATNC, pupils equal Neck: trachea midline Respiratory: ctab Heart: regular, S1S2, no murmur Abdomen: soft, bowel sounds heard, not tender Integumentary: no rash, warm and dry Neurologic: lethargic, non-verbal, not following any command Ext: no edema, R BKA Hemodialysis access: R arm AVF Subjective Date of service: 03/17/21 Objective - Vital Signs Vital signs: Vital Signs - 12hr 03/16/21 03/17/21 22:31 05:53 Temperature 98.3 F 98.2 F Pulse Rate 66 76 Respiratory 18 18 Rate Blood Pressure 139/48 144/62 O2 Sat by Pulse 98 91 Oximetry - Lab 03/16/21 06:43 03/16/21 06:43 Most recent lab results Calcium 7.8 mg/dL (8.4-10.2) L 03/16/21 06:43 Magnesium 2.10 mg/dL (1.7-2.3) 02/17/21 02:24 Medications & Allergies - Medications Allergies/Adverse Reactions: Allergies No Known Allergies Allergy (Verified 02/16/21 18:26) Home Medications: Home Medications Medication Instructions Recorded Confirmed Last Taken Type Calcium Acetate [Phoslo] 1,334 mg PO TIDWM #90 capsule 03/01/21 Unknown Rx Famotidine [Pepcid] 20 mg PO QAM #30 tablet 03/01/21 Unknown Rx Lactulose [Cephulac] 20 gm PO Q8HR 30 Days 03/01/21 Unknown Rx Lispro Insulin [HumaLOG] See Protocol SQ ACHS 30 Days 03/01/21 Unknown Rx allopurinoL [Zyloprim] 100 mg PO QDAY #30 tablet 03/01/21 Unknown Rx propranoloL [Inderal] 20 mg PO BID #60 tablet 03/01/21 Unknown Rx Active Medications: Generic Name Dose Route Start Last Admin Trade Name Freq PRN Reason Stop Dose Admin Acetaminophen 650 mg 02/18/21 22:38 03/09/21 13:15 Acetaminophen 325 Mg Tab PO 650 mg Q4H PRN Administration Pain MILD(1-3)/Fever >100.5/MOLINA Albuterol 2.5 mg 02/18/21 22:38 Albuterol 2.5 Mg/3 Ml Nebu IH Q3HRT PRN Shortness Of Breath Allopurinol 100 mg 02/20/21 10:00 03/16/21 16:59 Allopurinol 100 Mg Tab PO Not Given QDAY LEYLA Calcium Acetate 1,334 mg 02/20/21 08:30 03/16/21 17:01 Calcium Acetate 667 Mg Cap PO 1,334 mg TIDWM LEYLA Administration Dextrose 0 ml 02/18/21 23:00 02/25/21 16:56 Dextrose 50% In Water (25gm) 50 Ml Syringe IV 50 ml Q30MIN PRN Administration Hypoglycemia Protocol Diphenhydramine HCl 25 mg 02/23/21 09:10 03/01/21 10:30 Diphenhydramine 25 Mg Cap PO 25 mg BID PRN Administration Itching Famotidine 20 mg 02/19/21 10:00 03/16/21 16:59 Famotidine 20 Mg Tab PO Not Given QAM LEYLA Hydralazine HCl 10 mg 02/18/21 22:56 Hydralazine 20 Mg/1 Ml Inj IV Q6H PRN htn Sodium Chloride 100 mls @ 999 mls/hr 02/19/21 09:06 Nacl 0.9% IV OLIVIA PRN Hypotension Dextrose/Sodium Chloride 1,000 mls @ 50 mls/hr 03/12/21 15:00 03/16/21 23:12 D5/0.45ns IV 50 mls/hr DIRECT LEYLA Administration Insulin Glargine 10 units 03/09/21 22:00 03/16/21 23:07 Insulin Glargine 100 Units/Ml SUB-Q 10 units QHS LEYLA Administration Insulin Human Lispro 0 unit 03/09/21 22:00 03/16/21 23:06 Insulin Lispro 100 Unit/Ml SUB-Q 6 unit ACHS LEYLA Administration Protocol Lactulose 20 gm 03/09/21 18:00 03/17/21 05:59 Lactulose 20 Gm/30 Ml Oral Liqd PO Not Given Q6HR [facility] Ondansetron HCl 4 mg 02/18/21 22:38 02/28/21 12:32 Ondansetron 4 Mg/2 Ml Inj IV 4 mg Q8H PRN Administration Nausea And Vomiting Polyethylene Glycol 17 gm 02/24/21 12:08 02/24/21 12:47 Polyethylene Glycol 3350 17 Gm Powder PO 17 gm QDAY PRN Administration Constipation Propranolol HCl 20 mg 02/20/21 10:00 03/16/21 21:04 Propranolol 10 Mg Tab PO 20 mg BID LEYLA Administration Rifaximin 550 mg 03/10/21 12:00 03/16/21 21:03 Rifaximin 550 Mg Tab PO 550 mg BID LEYLA Administration Sodium Chloride 10 ml 02/19/21 10:00 03/16/21 23:11 Sodium Chloride 0.9% 10 Ml Flush Syringe IV 10 ml BID LEYLA Administration Sodium Chloride 10 ml 02/18/21 22:38 Sodium Chloride 0.9% 10 Ml Flush Syringe IV PRN PRN LINE FLUSH Tramadol HCl 50 mg 02/24/21 13:20 03/16/21 21:03 Tramadol 50 Mg Tab PO 50 mg Q6H PRN Administration Pain, Moderate (4-6) Zolpidem Tartrate 5 mg 02/24/21 09:54 03/08/21 23:25 Zolpidem 5 Mg Tab PO 5 mg QHS PRN Administration Sleep
[2021-03-17] MEDS: PROPRANOLOL 10 MG TAB PO SCH ×2 (09:47→22:54)
[2021-03-17] MEDS: CALCIUM ACETATE 667 MG CAP PO SCH ×3 (09:47→16:53)
[2021-03-17] MEDS: allopurinoL 100 MG TAB PO SCH (09:47)
[2021-03-17] MEDS: RIFAXIMIN 550 MG TAB PO SCH ×2 (09:48→22:43)
[2021-03-17] MEDS: FAMOTIDINE 20 MG TAB PO SCH (09:48)
--- NOTE | 2021-03-17 09:59 | Progress Note ---
Assessment and Plan Assessment and plan: 55 YO Male with ESRD on HD, Noncompliance with outpatient dialysis, Anemia, HBV, Chronic Liver Disease, Cirrhosis complicated by Esophageal Varices, HTN, Debility, DM presents to ED with confusion with diminished cognition. Patient family report the patient was "not acting like himself" and found to have worsening confusion over the past 2 days. In the ER the patient was found to have hepatic encephalopathy complicated by diminished cognition, end-stage renal disease in need of urgent dialysis, as well as uncontrolled diabetes, and acidosis. Nephrology team consulted in ED and patient was then admitted for further evaluation and Mx. A/p -- Hepatic encephalopathy due to hepatic cirrhosis cont lactulose, Neuro check, seizure precaution, aspiration precaution, fall precautions, continue to monitor. -- End stage renal disease Nephrology team consulted, strict I's/O, monitor urine output every shift, dialysis as per renal team, avoid nephrotoxic agents. --Metabolic Acidosis Nephrology team consulted, dialysis as per renal team. --Hyponatremia Monitor BMP, monitor fluid balance. -- Hyperammonemia Continue lactulose --Diabetes mellitus with hyperglycemia Consistent carb diet, SSI -- hyperkalemia, Improvement with dialysis --Ascitis, s/p paracentesis drained 6.2l of ascitic fluid --Sacral wound, cont wound care -- Moderate Protein Calorie Malnutrition, nutrition consulted --Noncompliance, counseled for medication compliance --DVT Px, SCD --DNR code status --Disposition: needs placement, CM waiting for placement Daily clinical course: 02/19: Resume dialysis will adjust insulin for better coverage. Very poor progno sis considering poor medical compliance. Agree with hospice recommendation. Will obtain wound care to continue to manage. Monitor anemia as patient was pretty anemic during the last hospitalization. Required transfusion. 02/20: Continues to undergo dialysis no change in mental status noted. Tolerating medications. Blood sugar mildly elevated adjusted insulin yesterday when awake for the patient received a dose today and if still elevated will adjust. Again case management is working on discharge plan for this patient as he is pending placement 02/21 patient complains of right hip pain. He said he fell few weeks ago and is concerned about another fracture. He had a fracture about 8 weeks ago and had surgery. Will obtain X ray right hip. Patient pending placement. 02/22 Patient seen in Dialysis Unit. He states hip pain improved. No other complaints. Right hip X ray done yesterday report read may be healing fracture or acute fracture. Will discuss with Orthopedic Surgeon Patient pending placement 02/23 Less hip pain. Today complains of generalized itching. Will start Benadryl po prn. Orthopedic consulted to evaluate right hip. Patient pending placement 02/24 Less hip pain. Generalized itching now resolved. Orthopedic consulted to evaluate right hip. He complains of sleeplessness. Will give Ambien prn Patient pending placement 02/25 Patient requested DNR status yesterday. I discussed with him and he signed forms. He also complains of worsening abdominal distension and requested ta pping, Will order paracentesis. Right hip evaluated by Dr. Trivedi and conservative management recommended. 02/26: Plan for paracentesis today. Need to set up dialysis as outpatient. assistant guest services manager working on discharge planning. 02/27: Patient did not sign the consent for paracentesis yesterday so paracentesis was done today and aspirated 6.2L ascitic fluid. Patient refusing medication per RN. Getting dialysis. Patient noted slightly altered today, will place NG tube remains altered and keep refusing oral meds, order for ammonia level and will cont lactulose. 02/28: Patient appears much more calm and cooperative today. He stated that he has been refusing procedure and medication as he believes he was not in the right state of his mind. Patient acknowledges the importance of being compliant and he promises that he will take the medications as he will be given. Discharge planning per case management as patient would need outpatient dialysis center set up and personal chcf set up. 03/01/21: Patient has senior care setting but according to caser shoe parts no available RN to accept the patient till Thursday. Continue supportive care. Discharge pending on placement. 03/02/21 -03/04/21: Discharge pending on placement, continue to monitor clinically. Continue current management and plan and supportive care. Patient need SNF placement. 03/05/2021; Awaiting SNF placement for discharge. Prognosis is very poor. Patient is nonresponsive. I try to reach to his son over the phone but could not get in touch. Patient is appropriate for hospice care. 03/06/2021; patient is awaiting SNF placement. Patient was alert and oriented. No confusion. Patient is stable to be discharged back to SNF. 03/07/2021; patient has hemoglobin of 6.8 this morning. A unit of blood ordered. Will monitor H&H. Nephrology is following for dialysis. 03/08/2021; patient's hemoglobin was 6.8 yesterday and transfused a unit of blood. I ordered yesterday to do posttransfusion H&H and was not done. CBC was ordered to be done this morning but was not done. COVID-19 test was done on 03/06 and positive. Nephrology is following the patient for his dialysis. Plan is to discharge him to SNF. Will follow with case management because patient is Covid positive. 03/09/2021; patient's repeat Covid test on 03/08/2021 was positive. Patient is pending for SNF Placement. Patient had hypoglycemia yesterday and patient was placed on Lantus and his sliding scale adjusted to high dose. Will monitor and adjust as needed. 03/10/2021; pending SNF placement. Covid test was positive on and . 03/11/2021; patient has hepatic encephalopathy and his ammonia level is very high, patient is currently on lactulose and rifaximin. Ammonia level is trending down. Nephrology is following for dialysis. Patient has positive Covid test last one was on 03/08, that makes placement difficult. Continue with case management. 03/12: Still awaiting placement, discussed with nursing staff to monitor mental s tatus changes. Will check ammonia level. Continue to adjust blood sugar. Complicated by COVID POSITIVELY. Awaiting placement for the patient. Also dialysis chair time. I have discussed with case management as my understanding was that patient was to go for hospice but this plan appears to have changed possibly not clear to me at this time 03/13: Continue supportive care crush medications that can be crushed. Ammonia level is elevated but not as elevated as previously. Continue lactulose advised nursing staff that this should be given as ordered to communicate with the night team also. Unfortunately when the patient gets better he refuses his lactulose. I truly believe that we should strongly consider palliative care for this patient but nevertheless if he wants to continue dialysis and will be compliant with his medications this is definitely an option can be pursued. Aspiration precautions monitor hemoglobin and platelets. 03/14: Patient seen and examined, more awake today. Continue supportive care, patient was made DNR wade, signed the form today after confirming the patient and also the physician. Monitor for fever. AWAITING PLACEMENT. poor prognosis 03/15/21 Patient is seen and examined. Lab and medication reviewed. Patient denied any chest pain or shortness of breath. Patient is more awake alert today. Patient is getting them hemodialysis today. Continue current management. Awaiting placement. 03/16/21 patient seen and examined. Lab and medication reviewed. Patient feels better. Hemoglobin 8.2 and hematocrit 23.9. Complained of pain in the butt. No other complain. Continue current management and supportive care. Patient is waiting for placement. 03/17: Patient remains with poor prognosis refusing dietary intake. Again discussed hospice and palliative care management considering his current medical condition and declining poor prognostic factors. Discussed with nursing staff patient will continue with lactulose had refused this morning but did take it yesterday. Continue aspiration precautions. Discussed the importance of taking the medication the patient verbalized understanding - Patient Problems (1) End-stage renal disease needing dialysis Current Visit: Yes Status: Acute (2) Diabetes 1.5, managed as type 2 Current Visit: Yes Status: Acute (3) Anemia Current Visit: Yes Status: Acute (4) Case management patient Current Visit: Yes Status: Acute (5) Chronic liver disease and cirrhosis Current Visit: Yes Status: Acute (6) Hyponatremia Current Visit: No Status: Acute (7) Hypertension Current Visit: Yes Status: Acute (8) failure to thrive (9) severe protein calorie malnutrition (10) DVT prophylaxis Current Visit: No Status: Acute History Interval history: Patient seen and examined no acute distress. Awake nursing staff reported patient was refusing medications he says that he will take them. Hospitalist Physical - Physical exam Narrative exam: VITAL SIGNS: Reviewed. GENERAL: The patient appears normally developed, awake lying down in a semiprone position pale, vital signs as documented. HEAD: No signs of head trauma. EYES: Pupils are equal. Extraocular motions intact. Icteric sclera-Jaundice EARS: Hearing grossly intact. MOUTH: Oropharynx is normal. NECK: No adenopathy, no JVD. CHEST: Chest with diminished breath sounds bilaterally. No wheezes, rales, or rhonchi. CARDIAC: Regular rate and rhythm. S1 and S2, without murmurs, gallops, or rubs. VASCULAR: No Edema. Peripheral pulses normal and equal in all extremities. ABDOMEN: Soft, non tender and non distended. No rebound or guarding, and no masses palpated. Bowel Sounds normal. MUSCULOSKELETAL: Right BKA extremities without clubbing, cyanosis or edema. NEUROLOGIC EXAM: Lethargic and stuporous. No focal sensory or strength deficits. PSYCHIATRIC: Unable to clearly examine SKIN: Jaundice detail exam as documented in skin assessment - Constitutional Vitals: Temp Pulse Resp BP Pulse Ox 98.2 F 76 18 144/62 91 03/17/21 05:53 03/17/21 05:53 03/17/21 05:53 03/17/21 05:53 03/17/21 05:53 General appearance: Present: no acute distress, well-nourished Results - Labs CBC & Chem 7: 03/16/21 06:43 03/16/21 06:43 Labs: Laboratory Last Values WBC 4.5 K/mm3 (4.5-11.0) 03/16/21 06:43 RBC 2.60 M/mm3 (3.65-5.03) L 03/16/21 06:43 Hgb 8.0 gm/dl (11.8-15.2) L 03/16/21 06:43 Hct 23.9 % (35.5-45.6) L 03/16/21 06:43 MCV 92 fl (84-94) 03/16/21 06:43 MCH 31 pg (28-32) 03/16/21 06:43 MCHC 34 % (32-34) 03/16/21 06:43 RDW 15.7 % (13.2-15.2) H 03/16/21 06:43 Plt Count 95 K/mm3 (140-440) L 03/16/21 06:43 Lymph % (Auto) 8.7 % (13.4-35.0) L 03/16/21 06:43 [place] % (Auto) 11.6 % (0.0-7.3) H 03/16/21 06:43 Eos % (Auto) 0.2 % (0.0-4.3) 03/16/21 06:43 Baso % (Auto) 0.3 % (0.0-1.8) 03/16/21 06:43 Lymph # (Auto) 0.4 K/mm3 (1.2-5.4) L 03/16/21 06:43 [place] # (Auto) 0.5 K/mm3 (0.0-0.8) 03/16/21 06:43 Eos # (Auto) 0.0 K/mm3 (0.0-0.4) 03/16/21 06:43 Baso # (Auto) 0.0 K/mm3 (0.0-0.1) 03/16/21 06:43 Add Manual Diff Complete 03/07/21 05:23 Total Counted 100 03/07/21 05:23 Seg Neutrophils % 79.2 % (40.0-70.0) H 03/16/21 06:43 Seg Neuts % (Manual) 78.0 % (40.0-70.0) H 03/07/21 05:23 Lymphocytes % (Manual) 13.0 % (13.4-35.0) L 03/07/21 05:23 Monocytes % (Manual) 9.0 % (0.0-7.3) H 03/07/21 05:23 Nucleated RBC % Not Reportable 03/07/21 05:23 Seg Neutrophils # 3.6 K/mm3 (1.8-7.7) 03/16/21 06:43 Seg Neutrophils # Man 2.0 K/mm3 (1.8-7.7) 03/07/21 05:23 Band Neutrophils # 0.0 K/mm3 03/07/21 05:23 Lymphocytes # (Manual) 0.3 K/mm3 (1.2-5.4) L 03/07/21 05:23 Abs React Lymphs (Man) 0.0 K/mm3 03/07/21 05:23 Monocytes # (Manual) 0.2 K/mm3 (0.0-0.8) 03/07/21 05:23 Eosinophils # (Manual) 0.0 K/mm3 (0.0-0.4) 03/07/21 05:23 Basophils # (Manual) 0.0 K/mm3 (0.0-0.1) 03/07/21 05:23 Metamyelocytes # 0.0 K/mm3 03/07/21 05:23 Myelocytes # 0.0 K/mm3 03/07/21 05:23 Promyelocytes # 0.0 K/mm3 03/07/21 05:23 Blast Cells # 0.0 K/mm3 03/07/21 05:23 WBC Morphology Not Reportable 03/07/21 05:23 Hypersegmented Neuts Not Reportable 03/07/21 05:23 Hyposegmented Neuts Not Reportable 03/07/21 05:23 Hypogranular Neuts Not Reportable 03/07/21 05:23 Smudge Cells Not Reportable 03/07/21 05:23 Toxic Granulation Not Reportable 03/07/21 05:23 Toxic Vacuolation Not Reportable 03/07/21 05:23 Dohle Bodies Not Reportable 03/07/21 05:23 Pelger-Huet Anomaly Not Reportable 03/07/21 05:23 Cosme Rods Not Reportable 03/07/21 05:23 Platelet Estimate Consistent w auto 03/07/21 05:23 Clumped Platelets Not Reportable 03/07/21 05:23 Plt Clumps, EDTA Not Reportable 03/07/21 05:23 Large Platelets Not Reportable 03/07/21 05:23 Giant Platelets Not Reportable 03/07/21 05:23 Platelet Satelliting Not Reportable 03/07/21 05:23 Plt Morphology Comment Not Reportable 03/07/21 05:23 RBC Morphology Not Reportable 03/07/21 05:23 Dimorphic RBCs Not Reportable 03/07/21 05:23 Polychromasia Not Reportable 03/07/21 05:23 Hypochromasia Not Reportable 03/07/21 05:23 Poikilocytosis Not Reportable 03/07/21 05:23 Anisocytosis Few 03/07/21 05:23 Microcytosis Not Reportable 03/07/21 05:23 Macrocytosis Not Reportable 03/07/21 05:23 Spherocytes Not Reportable 03/07/21 05:23 Pappenheimer Bodies Not Reportable 03/07/21 05:23 Sickle Cells Not Reportable 03/07/21 05:23 Target Cells Not Reportable 03/07/21 05:23 Tear Drop Cells Not Reportable 03/07/21 05:23 Ovalocytes Not Reportable 03/07/21 05:23 Helmet Cells Not Reportable 03/07/21 05:23 Mercado-Coffeen Bodies Not Reportable 03/07/21 05:23 [place] Rings Not Reportable 03/07/21 05:23 Kathy Cells Not Reportable 03/07/21 05:23 Bite Cells Not Reportable 03/07/21 05:23 Crenated Cell Not Reportable 03/07/21 05:23 Elliptocytes Not Reportable 03/07/21 05:23 Acanthocytes (Spur) Not Reportable 03/07/21 05:23 Rouleaux Not Reportable 03/07/21 05:23 Hemoglobin C Crystals Not Reportable 03/07/21 05:23 Schistocytes Not Reportable 03/07/21 05:23 Malaria parasites Not Reportable 03/07/21 05:23 Samir Bodies Not Reportable 03/07/21 05:23 Hem Pathologist Commnt No 03/07/21 05:23 PT 13.7 Sec. (12.2-14.9) 02/26/21 04:33 INR 1.00 (0.87-1.13) 02/26/21 04:33 Sodium 135 mmol/L (137-145) L 03/16/21 06:43 Potassium 3.6 mmol/L (3.6-5.0) 03/16/21 06:43 Chloride 95.5 mmol/L (98-107) L 03/16/21 06:43 Carbon Dioxide 30 mmol/L (22-30) 03/16/21 06:43 Anion Gap 13 mmol/L 03/16/21 06:43 BUN 37 mg/dL (9-20) H 03/16/21 06:43 Creatinine 5.2 mg/dL (0.8-1.3) H 03/16/21 06:43 Estimated GFR 12 ml/min 03/16/21 06:43 BUN/Creatinine Ratio 7 % 03/16/21 06:43 Glucose 187 mg/dL (75-100) H 03/16/21 06:43 POC Glucose 365 mg/dL (70-105) H 03/17/21 07:22 Hemoglobin A1c 7.4 % (4-6) H 02/26/21 04:33 Calcium 7.8 mg/dL (8.4-10.2) L 03/16/21 06:43 Magnesium 2.10 mg/dL (1.7-2.3) 02/17/21 02:24 Total Bilirubin 0.60 mg/dL (0.1-1.2) 03/14/21 07:24 Direct Bilirubin 0.3 mg/dL (0-0.2) H 03/14/21 07:24 Indirect Bilirubin 0.3 mg/dL 03/14/21 07:24 AST 57 units/L (5-40) H 03/14/21 07:24 ALT 24 units/L (7-56) 03/14/21 07:24 Alkaline Phosphatase 179 units/L (35-129) H 03/14/21 07:24 Ammonia 30.0 umol/L (25-60) 03/14/21 07:24 Total Creatine Kinase 86 units/L (55-170) 02/17/21 02:24 Total Protein 6.2 g/dL (6.3-8.2) L 03/14/21 07:24 Albumin 2.3 g/dL (3.9-5) L 03/14/21 07:24 Albumin/Globulin Ratio 0.6 % 03/14/21 07:24 TSH 0.986 mlU/mL (0.270-4.200) 02/17/21 02:24 Urine Color Yellow (Yellow) 02/17/21 Unknown Urine Turbidity Clear (Clear) 02/17/21 Unknown Urine pH 6.0 (5.0-7.0) 02/17/21 Unknown Ur Specific Jen[place] 1.012 (1.003-1.030) 02/17/21 Unknown Urine Protein 100 mg/dl mg/dL (Negative) 02/17/21 Unknown Urine Glucose (UA) >=500 mg/dL (Negative) 02/17/21 Unknown Urine Ketones Neg mg/dL (Negative) 02/17/21 Unknown Urine Blood Neg (Negative) 02/17/21 Unknown Urine Nitrite Neg (Negative) 02/17/21 Unknown Urine Bilirubin Neg (Negative) 02/17/21 Unknown Urine Urobilinogen < 2.0 mg/dL (<2.0) 02/17/21 Unknown Ur Leukocyte Esterase Neg (Negative) 02/17/21 Unknown Urine WBC (Auto) 2.0 /HPF (0.0-6.0) 02/17/21 Unknown Urine RBC (Auto) 2.0 /HPF (0.0-6.0) 02/17/21 Unknown U Epithel Cells (Auto) < 1.0 /HPF (0-13.0) 02/17/21 Unknown Urine Bacteria (Auto) 1+ /HPF (Negative) 02/17/21 Unknown Salicylates < 0.3 mg/dL (2.8-20.0) L 02/17/21 02:24 Acetaminophen 5.0 ug/mL (10.0-30.0) L 02/17/21 02:24 Coronavirus (PCR) Positive (Negative) A 03/08/21 10:57 Hepatitis A IgM Ab Non-reactive (NonReactive) 02/28/21 12:37 Hep Bs Antigen Non-reactive (Negative) 02/28/21 12:37 Hep B Core IgM Ab Non-reactive (NonReactive) 02/28/21 12:37 Hepatitis C Antibody Non-reactive (NonReactive) 02/28/21 12:37 Blood Type A POSITIVE 03/07/21 06:31 Antibody Screen Negative 03/07/21 06:31 Crossmatch See Detail 03/07/21 06:31 Sr/IV: Voiding Method Incontinent Active Medications - Current Medications Current Medications: Generic Name Dose Route Start Last Admin Trade Name Freq PRN Reason Stop Dose Admin Acetaminophen 650 mg 02/18/21 22:38 03/09/21 13:15 Acetaminophen 325 Mg Tab PO 650 mg Q4H PRN Administration Pain MILD(1-3)/Fever >100.5/MOLINA Albuterol 2.5 mg 02/18/21 22:38 Albuterol 2.5 Mg/3 Ml Nebu IH Q3HRT PRN Shortness Of Breath Allopurinol 100 mg 02/20/21 10:00 03/17/21 09:47 Allopurinol 100 Mg Tab PO Not Given QDAY [facility] Calcium Acetate 1,334 mg 02/20/21 08:30 03/17/21 09:47 Calcium Acetate 667 Mg Cap PO Not Given TIDWM LEYLA Dextrose 0 ml 02/18/21 23:00 02/25/21 16:56 Dextrose 50% In Water (25gm) 50 Ml Syringe IV 50 ml Q30MIN PRN Administration Hypoglycemia Protocol Diphenhydramine HCl 25 mg 02/23/21 09:10 03/01/21 10:30 Diphenhydramine 25 Mg Cap PO 25 mg BID PRN Administration Itching Famotidine 20 mg 02/19/21 10:00 03/17/21 09:48 Famotidine 20 Mg Tab PO Not Given QAM [facility] Hydralazine HCl 10 mg 02/18/21 22:56 Hydralazine 20 Mg/1 Ml Inj IV Q6H PRN htn Sodium Chloride 100 mls @ 999 mls/hr 02/19/21 09:06 Nacl 0.9% IV OLIVIA PRN Hypotension Dextrose/Sodium Chloride 1,000 mls @ 50 mls/hr 03/12/21 15:00 03/16/21 23:12 D5/0.45ns IV 50 mls/hr DIRECT LEYLA Administration Insulin Glargine 10 units 03/09/21 22:00 03/16/21 23:07 Insulin Glargine 100 Units/Ml SUB-Q 10 units QHS LEYLA Administration Insulin Human Lispro 0 unit 03/09/21 22:00 03/17/21 07:30 Insulin Lispro 100 Unit/Ml SUB-Q 10 unit ACHS LEYLA Administration Protocol Lactulose 20 gm 03/09/21 18:00 03/17/21 05:59 Lactulose 20 Gm/30 Ml Oral Liqd PO Not Given Q6HR [facility] Ondansetron HCl 4 mg 02/18/21 22:38 02/28/21 12:32 Ondansetron 4 Mg/2 Ml Inj IV 4 mg Q8H PRN Administration Nausea And Vomiting Polyethylene Glycol 17 gm 02/24/21 12:08 02/24/21 12:47 Polyethylene Glycol 3350 17 Gm Powder PO 17 gm QDAY PRN Administration Constipation Propranolol HCl 20 mg 02/20/21 10:00 03/17/21 09:47 Propranolol 10 Mg Tab PO Not Given BID LEYLA Rifaximin 550 mg 03/10/21 12:00 03/17/21 09:48 Rifaximin 550 Mg Tab PO Not Given BID LEYLA Sodium Chloride 10 ml 02/19/21 10:00 03/17/21 09:48 Sodium Chloride 0.9% 10 Ml Flush Syringe IV 10 ml BID LEYLA Administration Sodium Chloride 10 ml 02/18/21 22:38 Sodium Chloride 0.9% 10 Ml Flush Syringe IV PRN PRN LINE FLUSH Tramadol HCl 50 mg 02/24/21 13:20 03/16/21 21:03 Tramadol 50 Mg Tab PO 50 mg Q6H PRN Administration Pain, Moderate (4-6) Zolpidem Tartrate 5 mg 02/24/21 09:54 03/08/21 23:25 Zolpidem 5 Mg Tab PO 5 mg QHS PRN Administration Sleep Nutrition/Malnutrition Assess - Dietary Evaluation Nutrition/Malnutrition Findings: Nutrition Notes Start: 02/19/21 10:48 Freq: Status: Active Protocol: Document 03/15/21 11:14 LM (Rec: 03/15/21 11:28 LM [id number]) Nutrition Notes Initial or Follow up Reassessment Current Diagnosis CKD (stage V CKD),Diabetes Other Pertinent Diagnosis COVID-19 (+), hepatic encephalopathy, ascites Current Diet Renal/Consistent CHO + Nepro once daily Labs/Tests POC glu 229 BUN 14 Cr 5.3 Na 135 Pertinent Medications Reviewed Height 5 ft 11 in Weight 66.8 kg [place] Body Weight (kg) 78.18 BMI 20.5 Weight Status Appropriate Subjective/Other Information Unable to reach pt by phone. Per EMR pt ate 0% of breakfast , 75% dinner yesterday. Pt has had poor intakes >7 days. Percent of energy/protein needs met: Negligible Burn Absent Trauma Absent Current % PO Negligible Minimum of two criteria Yes Body Fat Depletion Mild depletion (non-severe) Fluid Accumulation Mild (non-severe) #2 Nutrition Diagnosis Increased nutrient needs ( specify in comment below) Diagnosis Progress(for reassessment Continues documentation) #1 Nutrition Diagnosis Malnutrition Diagnosis Progress(for reassessment Continues documentation) Is patient on ventilator? No Is Patient Ambulatory and/or Out of Bed No REE-([facility]-confined to bed) 3683.844 Calculation Used for Recommendations [facility] Additional Notes Pro needs >1.2g/kg/day Fluid needs 1-1.5L/day Nutrition Intervention Change Diet Order: Recommend enteral nutrition support if intakes continue > 50%. Nutrition Support: Nepro 1.8 at 45ml/hr Flush 200ml q4h Kcal 1,944 Protein (gm) 87 Fluid (mL) 785 Add Supplement/Snack (indicate name/kcal Nepro daily /protein ) Provides kCal: 425 Provides Protein (gm) 19 Goal #1 PO intake of meals plus ONS to meet at least 75% energy and pro needs or start TF Goal #2 Wound healing Follow-Up By: 03/18/21 Additional Comments F/U for PO/ONS intakes, POC
[2021-03-17] MEDS: D5W/0.45% NACL 1,000 ML IV SCH (16:59)
[2021-03-17] MEDS: INSULIN GLARGINE 100 UNITS/ML SUB-Q SCH (22:42)
[2021-03-18] MEDS: LACTULOSE 20 GM/30 ML ORAL LIQD PO SCH ×5 (05:53→23:25)
[2021-03-18] MEDS: D5W/0.45% NACL 1,000 ML IV SCH (05:53)
--- NOTE | 2021-03-18 08:37 | Progress Note ---
Assessment and Plan 1. ESRD: Patient is on maintenance hemodialysis three times a week, MWF schedule. Meds dosage based on GFR. Missed HD 02/18. Hemodialysis: 02/19, 02/20, 02/22, 02/25, 02/27, 03/01, 03/04, 03/06, 03/08, 03/11, 03/13, 03/15. 2. FEN: Hyperkalemia, improved. Monitor lytes and volume status. 3. Anemia, POA: 2/2 ESRD and Liver disease. Epogen with HD. PRBC as needed. 4. Cirrhosis with h/o hepatic encephalopathy: Lactulose. Monitor. 5. DM type 2: SSI. Monitor. 6. Thrombocytopenia, POA: 7. Hypertension: Monitor BP. Adjust meds as appropriate. Await placement. Subjective: Patient was seen and examined at the bedside. General Appearance: General appearance: well-developed, appears stated age, not in distress HEENT: ATNC, pupils equal Neck: trachea midline Respiratory: ctab Heart: regular, S1S2, no murmur Abdomen: soft, bowel sounds heard, not tender Integumentary: no rash, warm and dry Neurologic: alert, conversing, moving extremities Ext: no edema, R BKA Hemodialysis access: R arm AVF Subjective Date of service: 03/18/21 Objective - Vital Signs Vital signs: Vital Signs - 12hr 03/17/21 03/17/21 03/18/21 22:52 23:06 04:06 Temperature 98.2 F 98.2 F Pulse Rate 73 73 Respiratory 20 18 Rate Blood Pressure 127/53 152/55 O2 Sat by Pulse 94 89 Oximetry - Lab 03/16/21 06:43 03/16/21 06:43 Most recent lab results Calcium 7.8 mg/dL (8.4-10.2) L 03/16/21 06:43 Magnesium 2.10 mg/dL (1.7-2.3) 02/17/21 02:24 Medications & Allergies - Medications Allergies/Adverse Reactions: Allergies No Known Allergies Allergy (Verified 02/16/21 18:26) Home Medications: Home Medications Medication Instructions Recorded Confirmed Last Taken Type Calcium Acetate [Phoslo] 1,334 mg PO TIDWM #90 capsule 03/01/21 Unknown Rx Famotidine [Pepcid] 20 mg PO QAM #30 tablet 03/01/21 Unknown Rx Lactulose [Cephulac] 20 gm PO Q8HR 30 Days 03/01/21 Unknown Rx Lispro Insulin [HumaLOG] See Protocol SQ ACHS 30 Days 03/01/21 Unknown Rx allopurinoL [Zyloprim] 100 mg PO QDAY #30 tablet 03/01/21 Unknown Rx propranoloL [Inderal] 20 mg PO BID #60 tablet 03/01/21 Unknown Rx Active Medications: Generic Name Dose Route Start Last Admin Trade Name Freq PRN Reason Stop Dose Admin Acetaminophen 650 mg 02/18/21 22:38 03/09/21 13:15 Acetaminophen 325 Mg Tab PO 650 mg Q4H PRN Administration Pain MILD(1-3)/Fever >100.5/MOLINA Albuterol 2.5 mg 02/18/21 22:38 Albuterol 2.5 Mg/3 Ml Nebu IH Q3HRT PRN Shortness Of Breath Allopurinol 100 mg 02/20/21 10:00 03/17/21 09:47 Allopurinol 100 Mg Tab PO Not Given QDAY LEYLA Calcium Acetate 1,334 mg 02/20/21 08:30 03/17/21 16:53 Calcium Acetate 667 Mg Cap PO Not Given TIDWM LEYLA Dextrose 0 ml 02/18/21 23:00 02/25/21 16:56 Dextrose 50% In Water (25gm) 50 Ml Syringe IV 50 ml Q30MIN PRN Administration Hypoglycemia Protocol Diphenhydramine HCl 25 mg 02/23/21 09:10 03/01/21 10:30 Diphenhydramine 25 Mg Cap PO 25 mg BID PRN Administration Itching Famotidine 20 mg 02/19/21 10:00 03/17/21 09:48 Famotidine 20 Mg Tab PO Not Given QAM LEYLA Hydralazine HCl 10 mg 02/18/21 22:56 Hydralazine 20 Mg/1 Ml Inj IV Q6H PRN htn Sodium Chloride 100 mls @ 999 mls/hr 02/19/21 09:06 Nacl 0.9% IV OLIVIA PRN Hypotension Dextrose/Sodium Chloride 1,000 mls @ 50 mls/hr 03/12/21 15:00 03/18/21 05:53 D5/0.45ns IV 50 mls/hr DIRECT LEYLA Administration Insulin Glargine 10 units 03/09/21 22:00 03/17/21 22:42 Insulin Glargine 100 Units/Ml SUB-Q 10 units QHS LEYLA Administration Insulin Human Lispro 0 unit 03/09/21 22:00 03/17/21 22:42 Insulin Lispro 100 Unit/Ml SUB-Q 4 unit ACHS LEYLA Administration Protocol Lactulose 20 gm 03/09/21 18:00 03/18/21 06:00 Lactulose 20 Gm/30 Ml Oral Liqd PO Not Given Q6HR [facility] Ondansetron HCl 4 mg 02/18/21 22:38 02/28/21 12:32 Ondansetron 4 Mg/2 Ml Inj IV 4 mg Q8H PRN Administration Nausea And Vomiting Polyethylene Glycol 17 gm 02/24/21 12:08 02/24/21 12:47 Polyethylene Glycol 3350 17 Gm Powder PO 17 gm QDAY PRN Administration Constipation Propranolol HCl 20 mg 02/20/21 10:00 03/17/21 22:54 Propranolol 10 Mg Tab PO 20 mg BID LEYLA Administration Rifaximin 550 mg 03/10/21 12:00 03/17/21 22:43 Rifaximin 550 Mg Tab PO 550 mg BID LEYLA Administration Sodium Chloride 10 ml 02/19/21 10:00 03/17/21 23:02 Sodium Chloride 0.9% 10 Ml Flush Syringe IV 10 ml BID LEYLA Administration Sodium Chloride 10 ml 02/18/21 22:38 Sodium Chloride 0.9% 10 Ml Flush Syringe IV PRN PRN LINE FLUSH Tramadol HCl 50 mg 02/24/21 13:20 03/16/21 21:03 Tramadol 50 Mg Tab PO 50 mg Q6H PRN Administration Pain, Moderate (4-6) Zolpidem Tartrate 5 mg 02/24/21 09:54 03/08/21 23:25 Zolpidem 5 Mg Tab PO 5 mg QHS PRN Administration Sleep
--- NOTE | 2021-03-18 11:09 | Progress Note ---
Assessment and Plan Assessment and plan: 55 YO Male with ESRD on HD, Noncompliance with outpatient dialysis, Anemia, HBV, Chronic Liver Disease, Cirrhosis complicated by Esophageal Varices, HTN, Debility, DM presents to ED with confusion with diminished cognition. Patient family report the patient was "not acting like himself" and found to have worsening confusion over the past 2 days. In the ER the patient was found to have hepatic encephalopathy complicated by diminished cognition, end-stage renal disease in need of urgent dialysis, as well as uncontrolled diabetes, and acidosis. Nephrology team consulted in ED and patient was then admitted for further evaluation and Mx. A/p -- Hepatic encephalopathy due to hepatic cirrhosis cont lactulose, Neuro check, seizure precaution, aspiration precaution, fall precautions, continue to monitor. -- End stage renal disease Nephrology team consulted, strict I's/O, monitor urine output every shift, dialysis as per renal team, avoid nephrotoxic agents. --Metabolic Acidosis Nephrology team consulted, dialysis as per renal team. --Hyponatremia Monitor BMP, monitor fluid balance. -- Hyperammonemia Continue lactulose --Diabetes mellitus with hyperglycemia Consistent carb diet, SSI -- hyperkalemia, Improvement with dialysis --Ascitis, s/p paracentesis drained 6.2l of ascitic fluid --Sacral wound, cont wound care -- Moderate Protein Calorie Malnutrition, nutrition consulted --Noncompliance, counseled for medication compliance --DVT Px, SCD --DNR code status --Disposition: needs placement, CM waiting for placement Daily clinical course: 02/19: Resume dialysis will adjust insulin for better coverage. Very poor progno sis considering poor medical compliance. Agree with hospice recommendation. Will obtain wound care to continue to manage. Monitor anemia as patient was pretty anemic during the last hospitalization. Required transfusion. 02/20: Continues to undergo dialysis no change in mental status noted. Tolerating medications. Blood sugar mildly elevated adjusted insulin yesterday when awake for the patient received a dose today and if still elevated will adjust. Again case management is working on discharge plan for this patient as he is pending placement 02/21 patient complains of right hip pain. He said he fell few weeks ago and is concerned about another fracture. He had a fracture about 8 weeks ago and had surgery. Will obtain X ray right hip. Patient pending placement. 02/22 Patient seen in Dialysis Unit. He states hip pain improved. No other complaints. Right hip X ray done yesterday report read may be healing fracture or acute fracture. Will discuss with Orthopedic Surgeon Patient pending placement 02/23 Less hip pain. Today complains of generalized itching. Will start Benadryl po prn. Orthopedic consulted to evaluate right hip. Patient pending placement 02/24 Less hip pain. Generalized itching now resolved. Orthopedic consulted to evaluate right hip. He complains of sleeplessness. Will give Ambien prn Patient pending placement 02/25 Patient requested DNR status yesterday. I discussed with him and he signed forms. He also complains of worsening abdominal distension and requested ta pping, Will order paracentesis. Right hip evaluated by Dr. Trivedi and conservative management recommended. 02/26: Plan for paracentesis today. Need to set up dialysis as outpatient. manager distribution center working on discharge planning. 02/27: Patient did not sign the consent for paracentesis yesterday so paracentesis was done today and aspirated 6.2L ascitic fluid. Patient refusing medication per RN. Getting dialysis. Patient noted slightly altered today, will place NG tube remains altered and keep refusing oral meds, order for ammonia level and will cont lactulose. 02/28: Patient appears much more calm and cooperative today. He stated that he has been refusing procedure and medication as he believes he was not in the right state of his mind. Patient acknowledges the importance of being compliant and he promises that he will take the medications as he will be given. Discharge planning per case management as patient would need outpatient dialysis center set up and personal half-way set up. 03/01/21: Patient has fpc setting but according to director case no available RN to accept the patient till Thursday. Continue supportive care. Discharge pending on placement. 03/02/21 -03/04/21: Discharge pending on placement, continue to monitor clinically. Continue current management and plan and supportive care. Patient need SNF placement. 03/05/2021; Awaiting SNF placement for discharge. Prognosis is very poor. Patient is nonresponsive. I try to reach to his son over the phone but could not get in touch. Patient is appropriate for hospice care. 03/06/2021; patient is awaiting SNF placement. Patient was alert and oriented. No confusion. Patient is stable to be discharged back to SNF. 03/07/2021; patient has hemoglobin of 6.8 this morning. A unit of blood ordered. Will monitor H&H. Nephrology is following for dialysis. 03/08/2021; patient's hemoglobin was 6.8 yesterday and transfused a unit of blood. I ordered yesterday to do posttransfusion H&H and was not done. CBC was ordered to be done this morning but was not done. COVID-19 test was done on 03/06 and positive. Nephrology is following the patient for his dialysis. Plan is to discharge him to SNF. Will follow with case management because patient is Covid positive. 03/09/2021; patient's repeat Covid test on 03/08/2021 was positive. Patient is pending for SNF Placement. Patient had hypoglycemia yesterday and patient was placed on Lantus and his sliding scale adjusted to high dose. Will monitor and adjust as needed. 03/10/2021; pending SNF placement. Covid test was positive on and . 03/11/2021; patient has hepatic encephalopathy and his ammonia level is very high, patient is currently on lactulose and rifaximin. Ammonia level is trending down. Nephrology is following for dialysis. Patient has positive Covid test last one was on 03/08, that makes placement difficult. Continue with case management. 03/12: Still awaiting placement, discussed with nursing staff to monitor mental s tatus changes. Will check ammonia level. Continue to adjust blood sugar. Complicated by COVID POSITIVELY. Awaiting placement for the patient. Also dialysis chair time. I have discussed with case management as my understanding was that patient was to go for hospice but this plan appears to have changed possibly not clear to me at this time 03/13: Continue supportive care crush medications that can be crushed. Ammonia level is elevated but not as elevated as previously. Continue lactulose advised nursing staff that this should be given as ordered to communicate with the night team also. Unfortunately when the patient gets better he refuses his lactulose. I truly believe that we should strongly consider palliative care for this patient but nevertheless if he wants to continue dialysis and will be compliant with his medications this is definitely an option can be pursued. Aspiration precautions monitor hemoglobin and platelets. 03/14: Patient seen and examined, more awake today. Continue supportive care, patient was made DNR wade, signed the form today after confirming the patient and also the physician. Monitor for fever. AWAITING PLACEMENT. poor prognosis 03/15/21 Patient is seen and examined. Lab and medication reviewed. Patient denied any chest pain or shortness of breath. Patient is more awake alert today. Patient is getting them hemodialysis today. Continue current management. Awaiting placement. 03/16/21 patient seen and examined. Lab and medication reviewed. Patient feels better. Hemoglobin 8.2 and hematocrit 23.9. Complained of pain in the butt. No other complain. Continue current management and supportive care. Patient is waiting for placement. 03/17: Patient remains with poor prognosis refusing dietary intake. Again discussed hospice and palliative care management considering his current medical condition and declining poor prognostic factors. Discussed with nursing staff patient will continue with lactulose had refused this morning but did take it yesterday. Continue aspiration precautions. Discussed the importance of taking the medication the patient verbalized understanding 03/18: Patient undergoing HD discharge planning ongoing discussed with case management team. Covid test ordered today for placement purposes - Patient Problems (1) End-stage renal disease needing dialysis Current Visit: Yes Status: Acute (2) Diabetes 1.5, managed as type 2 Current Visit: Yes Status: Acute (3) Anemia Current Visit: Yes Status: Acute (4) Case management patient Current Visit: Yes Status: Acute (5) Chronic liver disease and cirrhosis Current Visit: Yes Status: Acute (6) Hyponatremia Current Visit: No Status: Acute (7) Hypertension Current Visit: Yes Status: Acute (8) failure to thrive (9) severe protein calorie malnutrition (10) DVT prophylaxis Current Visit: No Status: Acute History Interval history: Patient seen and examined no acute distress. Awake following commands, undergoing HD today. Hospitalist Physical - Physical exam Narrative exam: VITAL SIGNS: Reviewed. GENERAL: The patient appears normally developed, awake lying down in a semiprone position pale, vital signs as documented. HEAD: No signs of head trauma. EYES: Pupils are equal. Extraocular motions intact. Icteric sclera-Jaundice EARS: Hearing grossly intact. MOUTH: Oropharynx is normal. NECK: No adenopathy, no JVD. CHEST: Chest with diminished breath sounds bilaterally. No wheezes, rales, or rhonchi. CARDIAC: Regular rate and rhythm. S1 and S2, without murmurs, gallops, or rubs. VASCULAR: No Edema. Peripheral pulses normal and equal in all extremities. ABDOMEN: Soft, non tender and non distended. No rebound or guarding, and no masses palpated. Bowel Sounds normal. MUSCULOSKELETAL: Right BKA extremities without clubbing, cyanosis or edema. NEUROLOGIC EXAM: Lethargic and stuporous. No focal sensory or strength deficits. PSYCHIATRIC: Unable to clearly examine SKIN: Jaundice detail exam as documented in skin assessment - Constitutional Vitals: Temp Pulse Resp BP Pulse Ox 98.2 F 75 18 152/43 89 03/18/21 09:50 03/18/21 10:46 03/18/21 09:50 03/18/21 10:46 03/18/21 04:06 General appearance: Present: no acute distress, well-nourished Results - Labs CBC & Chem 7: 03/16/21 06:43 03/16/21 06:43 Labs: Laboratory Last Values WBC 4.5 K/mm3 (4.5-11.0) 03/16/21 06:43 RBC 2.60 M/mm3 (3.65-5.03) L 03/16/21 06:43 Hgb 8.0 gm/dl (11.8-15.2) L 03/16/21 06:43 Hct 23.9 % (35.5-45.6) L 03/16/21 06:43 MCV 92 fl (84-94) 03/16/21 06:43 MCH 31 pg (28-32) 03/16/21 06:43 MCHC 34 % (32-34) 03/16/21 06:43 RDW 15.7 % (13.2-15.2) H 03/16/21 06:43 Plt Count 95 K/mm3 (140-440) L 03/16/21 06:43 Lymph % (Auto) 8.7 % (13.4-35.0) L 03/16/21 06:43 [place] % (Auto) 11.6 % (0.0-7.3) H 03/16/21 06:43 Eos % (Auto) 0.2 % (0.0-4.3) 03/16/21 06:43 Baso % (Auto) 0.3 % (0.0-1.8) 03/16/21 06:43 Lymph # (Auto) 0.4 K/mm3 (1.2-5.4) L 03/16/21 06:43 [place] # (Auto) 0.5 K/mm3 (0.0-0.8) 03/16/21 06:43 Eos # (Auto) 0.0 K/mm3 (0.0-0.4) 03/16/21 06:43 Baso # (Auto) 0.0 K/mm3 (0.0-0.1) 03/16/21 06:43 Add Manual Diff Complete 03/07/21 05:23 Total Counted 100 03/07/21 05:23 Seg Neutrophils % 79.2 % (40.0-70.0) H 03/16/21 06:43 Seg Neuts % (Manual) 78.0 % (40.0-70.0) H 03/07/21 05:23 Lymphocytes % (Manual) 13.0 % (13.4-35.0) L 03/07/21 05:23 Monocytes % (Manual) 9.0 % (0.0-7.3) H 03/07/21 05:23 Nucleated RBC % Not Reportable 03/07/21 05:23 Seg Neutrophils # 3.6 K/mm3 (1.8-7.7) 03/16/21 06:43 Seg Neutrophils # Man 2.0 K/mm3 (1.8-7.7) 03/07/21 05:23 Band Neutrophils # 0.0 K/mm3 03/07/21 05:23 Lymphocytes # (Manual) 0.3 K/mm3 (1.2-5.4) L 03/07/21 05:23 Abs React Lymphs (Man) 0.0 K/mm3 03/07/21 05:23 Monocytes # (Manual) 0.2 K/mm3 (0.0-0.8) 03/07/21 05:23 Eosinophils # (Manual) 0.0 K/mm3 (0.0-0.4) 03/07/21 05:23 Basophils # (Manual) 0.0 K/mm3 (0.0-0.1) 03/07/21 05:23 Metamyelocytes # 0.0 K/mm3 03/07/21 05:23 Myelocytes # 0.0 K/mm3 03/07/21 05:23 Promyelocytes # 0.0 K/mm3 03/07/21 05:23 Blast Cells # 0.0 K/mm3 03/07/21 05:23 WBC Morphology Not Reportable 03/07/21 05:23 Hypersegmented Neuts Not Reportable 03/07/21 05:23 Hyposegmented Neuts Not Reportable 03/07/21 05:23 Hypogranular Neuts Not Reportable 03/07/21 05:23 Smudge Cells Not Reportable 03/07/21 05:23 Toxic Granulation Not Reportable 03/07/21 05:23 Toxic Vacuolation Not Reportable 03/07/21 05:23 Dohle Bodies Not Reportable 03/07/21 05:23 Pelger-Huet Anomaly Not Reportable 03/07/21 05:23 Cosme Rods Not Reportable 03/07/21 05:23 Platelet Estimate Consistent w auto 03/07/21 05:23 Clumped Platelets Not Reportable 03/07/21 05:23 Plt Clumps, EDTA Not Reportable 03/07/21 05:23 Large Platelets Not Reportable 03/07/21 05:23 Giant Platelets Not Reportable 03/07/21 05:23 Platelet Satelliting Not Reportable 03/07/21 05:23 Plt Morphology Comment Not Reportable 03/07/21 05:23 RBC Morphology Not Reportable 03/07/21 05:23 Dimorphic RBCs Not Reportable 03/07/21 05:23 Polychromasia Not Reportable 03/07/21 05:23 Hypochromasia Not Reportable 03/07/21 05:23 Poikilocytosis Not Reportable 03/07/21 05:23 Anisocytosis Few 03/07/21 05:23 Microcytosis Not Reportable 03/07/21 05:23 Macrocytosis Not Reportable 03/07/21 05:23 Spherocytes Not Reportable 03/07/21 05:23 Pappenheimer Bodies Not Reportable 03/07/21 05:23 Sickle Cells Not Reportable 03/07/21 05:23 Target Cells Not Reportable 03/07/21 05:23 Tear Drop Cells Not Reportable 03/07/21 05:23 Ovalocytes Not Reportable 03/07/21 05:23 Helmet Cells Not Reportable 03/07/21 05:23 Mercado-Disney Bodies Not Reportable 03/07/21 05:23 Rowdy Rings Not Reportable 03/07/21 05:23 Kathy Cells Not Reportable 03/07/21 05:23 Bite Cells Not Reportable 03/07/21 05:23 Crenated Cell Not Reportable 03/07/21 05:23 Elliptocytes Not Reportable 03/07/21 05:23 Acanthocytes (Spur) Not Reportable 03/07/21 05:23 Rouleaux Not Reportable 03/07/21 05:23 Hemoglobin C Crystals Not Reportable 03/07/21 05:23 Schistocytes Not Reportable 03/07/21 05:23 Malaria parasites Not Reportable 03/07/21 05:23 Samir Bodies Not Reportable 03/07/21 05:23 Hem Pathologist Commnt No 03/07/21 05:23 PT 13.7 Sec. (12.2-14.9) 02/26/21 04:33 INR 1.00 (0.87-1.13) 02/26/21 04:33 Sodium 135 mmol/L (137-145) L 03/16/21 06:43 Potassium 3.6 mmol/L (3.6-5.0) 03/16/21 06:43 Chloride 95.5 mmol/L (98-107) L 03/16/21 06:43 Carbon Dioxide 30 mmol/L (22-30) 03/16/21 06:43 Anion Gap 13 mmol/L 03/16/21 06:43 BUN 37 mg/dL (9-20) H 03/16/21 06:43 Creatinine 5.2 mg/dL (0.8-1.3) H 03/16/21 06:43 Estimated GFR 12 ml/min 03/16/21 06:43 BUN/Creatinine Ratio 7 % 03/16/21 06:43 Glucose 187 mg/dL (75-100) H 03/16/21 06:43 POC Glucose 179 mg/dL (70-105) H 03/18/21 10:40 Hemoglobin A1c 7.4 % (4-6) H 02/26/21 04:33 Calcium 7.8 mg/dL (8.4-10.2) L 03/16/21 06:43 Magnesium 2.10 mg/dL (1.7-2.3) 02/17/21 02:24 Total Bilirubin 0.60 mg/dL (0.1-1.2) 03/14/21 07:24 Direct Bilirubin 0.3 mg/dL (0-0.2) H 03/14/21 07:24 Indirect Bilirubin 0.3 mg/dL 03/14/21 07:24 AST 57 units/L (5-40) H 03/14/21 07:24 ALT 24 units/L (7-56) 03/14/21 07:24 Alkaline Phosphatase 179 units/L (35-129) H 03/14/21 07:24 Ammonia 30.0 umol/L (25-60) 03/14/21 07:24 Total Creatine Kinase 86 units/L (55-170) 02/17/21 02:24 Total Protein 6.2 g/dL (6.3-8.2) L 03/14/21 07:24 Albumin 2.3 g/dL (3.9-5) L 03/14/21 07:24 Albumin/Globulin Ratio 0.6 % 03/14/21 07:24 TSH 0.986 mlU/mL (0.270-4.200) 02/17/21 02:24 Urine Color Yellow (Yellow) 02/17/21 Unknown Urine Turbidity Clear (Clear) 02/17/21 Unknown Urine pH 6.0 (5.0-7.0) 02/17/21 Unknown Ur Specific [place] 1.012 (1.003-1.030) 02/17/21 Unknown Urine Protein 100 mg/dl mg/dL (Negative) 02/17/21 Unknown Urine Glucose (UA) >=500 mg/dL (Negative) 02/17/21 Unknown Urine Ketones Neg mg/dL (Negative) 02/17/21 Unknown Urine Blood Neg (Negative) 02/17/21 Unknown Urine Nitrite Neg (Negative) 02/17/21 Unknown Urine Bilirubin Neg (Negative) 02/17/21 Unknown Urine Urobilinogen < 2.0 mg/dL (<2.0) 02/17/21 Unknown Ur Leukocyte Esterase Neg (Negative) 02/17/21 Unknown Urine WBC (Auto) 2.0 /HPF (0.0-6.0) 02/17/21 Unknown Urine RBC (Auto) 2.0 /HPF (0.0-6.0) 02/17/21 Unknown U Epithel Cells (Auto) < 1.0 /HPF (0-13.0) 02/17/21 Unknown Urine Bacteria (Auto) 1+ /HPF (Negative) 02/17/21 Unknown Salicylates < 0.3 mg/dL (2.8-20.0) L 02/17/21 02:24 Acetaminophen 5.0 ug/mL (10.0-30.0) L 02/17/21 02:24 Coronavirus (PCR) Positive (Negative) A 03/08/21 10:57 Hepatitis A IgM Ab Non-reactive (NonReactive) 02/28/21 12:37 Hep Bs Antigen Non-reactive (Negative) 02/28/21 12:37 Hep B Core IgM Ab Non-reactive (NonReactive) 02/28/21 12:37 Hepatitis C Antibody Non-reactive (NonReactive) 02/28/21 12:37 Blood Type A POSITIVE 03/07/21 06:31 Antibody Screen Negative 03/07/21 06:31 Crossmatch See Detail 03/07/21 06:31 Sr/IV: Voiding Method Urinal Active Medications - Current Medications Current Medications: Generic Name Dose Route Start Last Admin Trade Name Freq PRN Reason Stop Dose Admin Acetaminophen 650 mg 02/18/21 22:38 03/09/21 13:15 Acetaminophen 325 Mg Tab PO 650 mg Q4H PRN Administration Pain MILD(1-3)/Fever >100.5/MOLINA Albuterol 2.5 mg 02/18/21 22:38 Albuterol 2.5 Mg/3 Ml Nebu IH Q3HRT PRN Shortness Of Breath Allopurinol 100 mg 02/20/21 10:00 03/17/21 09:47 Allopurinol 100 Mg Tab PO Not Given QDAY LEYLA Calcium Acetate 1,334 mg 02/20/21 08:30 03/17/21 16:53 Calcium Acetate 667 Mg Cap PO Not Given TIDWM LEYLA Dextrose 0 ml 02/18/21 23:00 02/25/21 16:56 Dextrose 50% In Water (25gm) 50 Ml Syringe IV 50 ml Q30MIN PRN Administration Hypoglycemia Protocol Diphenhydramine HCl 25 mg 02/23/21 09:10 03/01/21 10:30 Diphenhydramine 25 Mg Cap PO 25 mg BID PRN Administration Itching Famotidine 20 mg 02/19/21 10:00 03/17/21 09:48 Famotidine 20 Mg Tab PO Not Given QAM LEYLA Hydralazine HCl 10 mg 02/18/21 22:56 Hydralazine 20 Mg/1 Ml Inj IV Q6H PRN htn Sodium Chloride 100 mls @ 999 mls/hr 02/19/21 09:06 Nacl 0.9% IV OLIVIA PRN Hypotension Dextrose/Sodium Chloride 1,000 mls @ 50 mls/hr 03/12/21 15:00 03/18/21 05:53 D5/0.45ns IV 50 mls/hr DIRECT LEYLA Administration Insulin Glargine 10 units 03/09/21 22:00 03/17/21 22:42 Insulin Glargine 100 Units/Ml SUB-Q 10 units QHS LEYLA Administration Insulin Human Lispro 0 unit 03/09/21 22:00 03/17/21 22:42 Insulin Lispro 100 Unit/Ml SUB-Q 4 unit ACHS LEYLA Administration Protocol Lactulose 20 gm 03/09/21 18:00 03/18/21 06:00 Lactulose 20 Gm/30 Ml Oral Liqd PO Not Given Q6HR [facility] Ondansetron HCl 4 mg 02/18/21 22:38 02/28/21 12:32 Ondansetron 4 Mg/2 Ml Inj IV 4 mg Q8H PRN Administration Nausea And Vomiting Polyethylene Glycol 17 gm 02/24/21 12:08 02/24/21 12:47 Polyethylene Glycol 3350 17 Gm Powder PO 17 gm QDAY PRN Administration Constipation Propranolol HCl 20 mg 02/20/21 10:00 03/17/21 22:54 Propranolol 10 Mg Tab PO 20 mg BID LEYLA Administration Rifaximin 550 mg 03/10/21 12:00 03/17/21 22:43 Rifaximin 550 Mg Tab PO 550 mg BID LEYLA Administration Sodium Chloride 10 ml 02/19/21 10:00 03/17/21 23:02 Sodium Chloride 0.9% 10 Ml Flush Syringe IV 10 ml BID LEYLA Administration Sodium Chloride 10 ml 02/18/21 22:38 Sodium Chloride 0.9% 10 Ml Flush Syringe IV PRN PRN LINE FLUSH Tramadol HCl 50 mg 02/24/21 13:20 03/16/21 21:03 Tramadol 50 Mg Tab PO 50 mg Q6H PRN Administration Pain, Moderate (4-6) Zolpidem Tartrate 5 mg 02/24/21 09:54 03/08/21 23:25 Zolpidem 5 Mg Tab PO 5 mg QHS PRN Administration Sleep Nutrition/Malnutrition Assess - Dietary Evaluation Nutrition/Malnutrition Findings: Nutrition Notes Start: 02/19/21 10:48 Freq: Status: Active Protocol: Document 03/15/21 11:14 LM (Rec: 03/15/21 11:28 LM [id number]) Nutrition Notes Initial or Follow up Reassessment Current Diagnosis CKD (stage V CKD),Diabetes Other Pertinent Diagnosis COVID-19 (+), hepatic encephalopathy, ascites Current Diet Renal/Consistent CHO + Nepro once daily Labs/Tests POC glu 229 BUN 14 Cr 5.3 Na 135 Pertinent Medications Reviewed Height 5 ft 11 in Weight 66.8 kg [place] Body Weight (kg) 78.18 BMI 20.5 Weight Status Appropriate Subjective/Other Information Unable to reach pt by phone. Per EMR pt ate 0% of breakfast , 75% dinner yesterday. Pt has had poor intakes >7 days. Percent of energy/protein needs met: Negligible Burn Absent Trauma Absent Current % PO Negligible Minimum of two criteria Yes Body Fat Depletion Mild depletion (non-severe) Fluid Accumulation Mild (non-severe) #2 Nutrition Diagnosis Increased nutrient needs ( specify in comment below) Diagnosis Progress(for reassessment Continues documentation) #1 Nutrition Diagnosis Malnutrition Diagnosis Progress(for reassessment Continues documentation) Is patient on ventilator? No Is Patient Ambulatory and/or Out of Bed No REE-([facility]-confined to bed) [phone] Calculation Used for Recommendations [facility] Additional Notes Pro needs >1.2g/kg/day Fluid needs 1-1.5L/day Nutrition Intervention Change Diet Order: Recommend enteral nutrition support if intakes continue > 50%. Nutrition Support: Nepro 1.8 at 45ml/hr Flush 200ml q4h Kcal 1,944 Protein (gm) 87 Fluid (mL) 785 Add Supplement/Snack (indicate name/kcal Nepro daily /protein ) Provides kCal: 425 Provides Protein (gm) 19 Goal #1 PO intake of meals plus ONS to meet at least 75% energy and pro needs or start TF Goal #2 Wound healing Follow-Up By: 03/18/21 Additional Comments F/U for PO/ONS intakes, POC
[2021-03-18] MEDS: INSULIN LISPRO 100 UNIT/ML SUB-Q SCH ×4 (12:39→22:32)
[2021-03-18] MEDS: allopurinoL 100 MG TAB PO SCH (14:26)
[2021-03-18] MEDS: FAMOTIDINE 20 MG TAB PO SCH (14:27)
[2021-03-18] MEDS: CALCIUM ACETATE 667 MG CAP PO SCH ×3 (14:28→18:11)
[2021-03-18] MEDS: PROPRANOLOL 10 MG TAB PO SCH ×2 (14:28→22:31)
[2021-03-18] MEDS: RIFAXIMIN 550 MG TAB PO SCH ×2 (15:43→22:34)
[2021-03-18] MEDS: INSULIN GLARGINE 100 UNITS/ML SUB-Q SCH (22:34)
[2021-03-19] MEDS: D5W/0.45% NACL 1,000 ML IV SCH ×2 (01:08→20:31)
[2021-03-19] MEDS: LACTULOSE 20 GM/30 ML ORAL LIQD PO SCH ×4 (06:09→23:13)
--- NOTE | 2021-03-19 07:38 | Progress Note ---
Assessment and Plan Assessment and plan: 55 YO Male with ESRD on HD, Noncompliance with outpatient dialysis, Anemia, HBV, Chronic Liver Disease, Cirrhosis complicated by Esophageal Varices, HTN, Debility, DM presents to ED with confusion with diminished cognition. Patient family report the patient was "not acting like himself" and found to have worsening confusion over the past 2 days. In the ER the patient was found to have hepatic encephalopathy complicated by diminished cognition, end-stage renal disease in need of urgent dialysis, as well as uncontrolled diabetes, and acidosis. Nephrology team consulted in ED and patient was then admitted for further evaluation and Mx. A/p -- Hepatic encephalopathy due to hepatic cirrhosis cont lactulose, Neuro check, seizure precaution, aspiration precaution, fall precautions, continue to monitor. -- End stage renal disease Nephrology team consulted, strict I's/O, monitor urine output every shift, dialysis as per renal team, avoid nephrotoxic agents. --Metabolic Acidosis Nephrology team consulted, dialysis as per renal team. --Hyponatremia Monitor BMP, monitor fluid balance. -- Hyperammonemia Continue lactulose --Diabetes mellitus with hyperglycemia Consistent carb diet, SSI -- hyperkalemia, Improvement with dialysis --Ascitis, s/p paracentesis drained 6.2l of ascitic fluid --Sacral wound, cont wound care -- Moderate Protein Calorie Malnutrition, nutrition consulted --Noncompliance, counseled for medication compliance --DVT Px, SCD --DNR code status --Disposition: needs placement, CM waiting for placement Daily clinical course: 02/19: Resume dialysis will adjust insulin for better coverage. Very poor progn osis considering poor medical compliance. Agree with hospice recommendation. Will obtain wound care to continue to manage. Monitor anemia as patient was pretty anemic during the last hospitalization. Required transfusion. 02/20: Continues to undergo dialysis no change in mental status noted. Tolerating medications. Blood sugar mildly elevated adjusted insulin yesterday when awake for the patient received a dose today and if still elevated will adjust. Again case management is working on discharge plan for this patient as he is pending placement 02/21 patient complains of right hip pain. He said he fell few weeks ago and is concerned about another fracture. He had a fracture about 8 weeks ago and had surgery. Will obtain X ray right hip. Patient pending placement. 02/22 Patient seen in Dialysis Unit. He states hip pain improved. No other complaints. Right hip X ray done yesterday report read may be healing fracture or acute fracture. Will discuss with Orthopedic Surgeon Patient pending placement 02/23 Less hip pain. Today complains of generalized itching. Will start Benadryl po prn. Orthopedic consulted to evaluate right hip. Patient pending placement 02/24 Less hip pain. Generalized itching now resolved. Orthopedic consulted to evaluate right hip. He complains of sleeplessness. Will give Ambien prn Patient pending placement 02/25 Patient requested DNR status yesterday. I discussed with him and he signed forms. He also complains of worsening abdominal distension and requested t apping, Will order paracentesis. Right hip evaluated by Dr. Trivedi and conservative management recommended. 02/26: Plan for paracentesis today. Need to set up dialysis as outpatient. manager produce working on discharge planning. 02/27: Patient did not sign the consent for paracentesis yesterday so paracentesis was done today and aspirated 6.2L ascitic fluid. Patient refusing medication per RN. Getting dialysis. Patient noted slightly altered today, will place NG tube remains altered and keep refusing oral meds, order for ammonia level and will cont lactulose. 02/28: Patient appears much more calm and cooperative today. He stated that he has been refusing procedure and medication as he believes he was not in the right state of his mind. Patient acknowledges the importance of being compliant and he promises that he will take the medications as he will be given. Discharge planning per case management as patient would need outpatient dialysis center set up and personal mcc set up. 03/01/21: Patient has skilled nursing setting but according to caser up no available RN to accept the patient till Thursday. Continue supportive care. Discharge pending on placement. 03/02/21 -03/04/21: Discharge pending on placement, continue to monitor clinically. Continue current management and plan and supportive care. Patient need SNF placement. 03/05/2021; Awaiting SNF placement for discharge. Prognosis is very poor. Patient is nonresponsive. I try to reach to his son over the phone but could not get in touch. Patient is appropriate for hospice care. 03/06/2021; patient is awaiting SNF placement. Patient was alert and oriented. No confusion. Patient is stable to be discharged back to SNF. 03/07/2021; patient has hemoglobin of 6.8 this morning. A unit of blood ordered. Will monitor H&H. Nephrology is following for dialysis. 03/08/2021; patient's hemoglobin was 6.8 yesterday and transfused a unit of blood. I ordered yesterday to do posttransfusion H&H and was not done. CBC was ordered to be done this morning but was not done. COVID-19 test was done on 03/06 and positive. Nephrology is following the patient for his dialysis. Plan is to discharge him to SNF. Will follow with case management because patient is Covid positive. 03/09/2021; patient's repeat Covid test on 03/08/2021 was positive. Patient is pending for SNF Placement. Patient had hypoglycemia yesterday and patient was placed on Lantus and his sliding scale adjusted to high dose. Will monitor and adjust as needed. 03/10/2021; pending SNF placement. Covid test was positive on and . 03/11/2021; patient has hepatic encephalopathy and his ammonia level is very high, patient is currently on lactulose and rifaximin. Ammonia level is trending down. Nephrology is following for dialysis. Patient has positive Covid test last one was on 03/08, that makes placement difficult. Continue with case management. 03/12: Still awaiting placement, discussed with nursing staff to monitor mental status changes. Will check ammonia level. Continue to adjust blood sugar. Complicated by COVID POSITIVELY. Awaiting placement for the patient. Also dialysis chair time. I have discussed with case management as my understanding was that patient was to go for hospice but this plan appears to have changed possibly not clear to me at this time 03/13: Continue supportive care crush medications that can be crushed. Ammonia level is elevated but not as elevated as previously. Continue lactulose advised nursing staff that this should be given as ordered to communicate with the night team also. Unfortunately when the patient gets better he refuses his lactulose. I truly believe that we should strongly consider palliative care for this patient but nevertheless if he wants to continue dialysis and will be compliant with his medications this is definitely an option can be pursued. Aspiration precautions monitor hemoglobin and platelets. 03/14: Patient seen and examined, more awake today. Continue supportive care, patient was made DNR wade, signed the form today after confirming the patient and also the physician. Monitor for fever. AWAITING PLACEMENT. poor prognosis 03/15/21 Patient is seen and examined. Lab and medication reviewed. Patient denied any chest pain or shortness of breath. Patient is more awake alert today. Patient is getting them hemodialysis today. Continue current management. Awaiting placement. 03/16/21 patient seen and examined. Lab and medication reviewed. Patient feels better. Hemoglobin 8.2 and hematocrit 23.9. Complained of pain in the butt. No other complain. Continue current management and supportive care. Patient is waiting for placement. 03/17: Patient remains with poor prognosis refusing dietary intake. Again discussed hospice and palliative care management considering his current medical condition and declining poor prognostic factors. Discussed with nursing staff patient will continue with lactulose had refused this morning but did take it yesterday. Continue aspiration precautions. Discussed the importance of taking the medication the patient verbalized understanding 03/18: Patient undergoing HD discharge planning ongoing discussed with case management team. Covid test ordered today for placement purposes. 03/19/2021; Covid test was ordered and result is pending. Pending placement. - Patient Problems (1) End-stage renal disease needing dialysis Current Visit: Yes Status: Acute (2) Diabetes 1.5, managed as type 2 Current Visit: Yes Status: Acute (3) Anemia Current Visit: Yes Status: Acute (4) Case management patient Current Visit: Yes Status: Acute (5) Chronic liver disease and cirrhosis Current Visit: Yes Status: Acute (6) Hyponatremia Current Visit: No Status: Acute (7) Hypertension Current Visit: Yes Status: Acute (8) failure to thrive (9) severe protein calorie malnutrition (10) DVT prophylaxis Current Visit: No Status: Acute History Interval history: Patient was seen and evaluated this morning Patient was alert and oriented Patient doesn't have new complaints Hospitalist Physical - Physical exam Narrative exam: Not in cardiopulmonary distress. The patient appeared well nourished and normally developed. Vital signs as documented. Head exam is unremarkable. No scleral icterus . Neck is without jugular venous distension, thyromegaly, or carotid bruits. Lungs are clear to auscultation. Cardiac exam reveals regular rate and Rhythm. Abdominal exam reveals normal bowel sounds, nontender, no organomegaly. Extremities right BKA. STONE SANDBLASTER: Patient was alert and oriented. Sacral decubitus ulcer. - Constitutional Vitals: Temp Pulse Resp BP Pulse Ox 97.6 F 77 16 129/32 98 03/18/21 21:51 03/18/21 22:31 03/18/21 22:20 03/18/21 22:31 03/18/21 21:51 General appearance: Present: no acute distress, well-nourished Results - Labs CBC & Chem 7: 03/16/21 06:43 03/16/21 06:43 Labs: Laboratory Last Values WBC 4.5 K/mm3 (4.5-11.0) 03/16/21 06:43 RBC 2.60 M/mm3 (3.65-5.03) L 03/16/21 06:43 Hgb 8.0 gm/dl (11.8-15.2) L 03/16/21 06:43 Hct 23.9 % (35.5-45.6) L 03/16/21 06:43 MCV 92 fl (84-94) 03/16/21 06:43 MCH 31 pg (28-32) 03/16/21 06:43 MCHC 34 % (32-34) 03/16/21 06:43 RDW 15.7 % (13.2-15.2) H 03/16/21 06:43 Plt Count 95 K/mm3 (140-440) L 03/16/21 06:43 Lymph % (Auto) 8.7 % (13.4-35.0) L 03/16/21 06:43 [place] % (Auto) 11.6 % (0.0-7.3) H 03/16/21 06:43 Eos % (Auto) 0.2 % (0.0-4.3) 03/16/21 06:43 Baso % (Auto) 0.3 % (0.0-1.8) 03/16/21 06:43 Lymph # (Auto) 0.4 K/mm3 (1.2-5.4) L 03/16/21 06:43 [place] # (Auto) 0.5 K/mm3 (0.0-0.8) 03/16/21 06:43 Eos # (Auto) 0.0 K/mm3 (0.0-0.4) 03/16/21 06:43 Baso # (Auto) 0.0 K/mm3 (0.0-0.1) 03/16/21 06:43 Add Manual Diff Complete 03/07/21 05:23 Total Counted 100 03/07/21 05:23 Seg Neutrophils % 79.2 % (40.0-70.0) H 03/16/21 06:43 Seg Neuts % (Manual) 78.0 % (40.0-70.0) H 03/07/21 05:23 Lymphocytes % (Manual) 13.0 % (13.4-35.0) L 03/07/21 05:23 Monocytes % (Manual) 9.0 % (0.0-7.3) H 03/07/21 05:23 Nucleated RBC % Not Reportable 03/07/21 05:23 Seg Neutrophils # 3.6 K/mm3 (1.8-7.7) 03/16/21 06:43 Seg Neutrophils # Man 2.0 K/mm3 (1.8-7.7) 03/07/21 05:23 Band Neutrophils # 0.0 K/mm3 03/07/21 05:23 Lymphocytes # (Manual) 0.3 K/mm3 (1.2-5.4) L 03/07/21 05:23 Abs React Lymphs (Man) 0.0 K/mm3 03/07/21 05:23 Monocytes # (Manual) 0.2 K/mm3 (0.0-0.8) 03/07/21 05:23 Eosinophils # (Manual) 0.0 K/mm3 (0.0-0.4) 03/07/21 05:23 Basophils # (Manual) 0.0 K/mm3 (0.0-0.1) 03/07/21 05:23 Metamyelocytes # 0.0 K/mm3 03/07/21 05:23 Myelocytes # 0.0 K/mm3 03/07/21 05:23 Promyelocytes # 0.0 K/mm3 03/07/21 05:23 Blast Cells # 0.0 K/mm3 03/07/21 05:23 WBC Morphology Not Reportable 03/07/21 05:23 Hypersegmented Neuts Not Reportable 03/07/21 05:23 Hyposegmented Neuts Not Reportable 03/07/21 05:23 Hypogranular Neuts Not Reportable 03/07/21 05:23 Smudge Cells Not Reportable 03/07/21 05:23 Toxic Granulation Not Reportable 03/07/21 05:23 Toxic Vacuolation Not Reportable 03/07/21 05:23 Dohle Bodies Not Reportable 03/07/21 05:23 Pelger-Huet Anomaly Not Reportable 03/07/21 05:23 Cosme Rods Not Reportable 03/07/21 05:23 Platelet Estimate Consistent w auto 03/07/21 05:23 Clumped Platelets Not Reportable 03/07/21 05:23 Plt Clumps, EDTA Not Reportable 03/07/21 05:23 Large Platelets Not Reportable 03/07/21 05:23 Giant Platelets Not Reportable 03/07/21 05:23 Platelet Satelliting Not Reportable 03/07/21 05:23 Plt Morphology Comment Not Reportable 03/07/21 05:23 RBC Morphology Not Reportable 03/07/21 05:23 Dimorphic RBCs Not Reportable 03/07/21 05:23 Polychromasia Not Reportable 03/07/21 05:23 Hypochromasia Not Reportable 03/07/21 05:23 Poikilocytosis Not Reportable 03/07/21 05:23 Anisocytosis Few 03/07/21 05:23 Microcytosis Not Reportable 03/07/21 05:23 Macrocytosis Not Reportable 03/07/21 05:23 Spherocytes Not Reportable 03/07/21 05:23 Pappenheimer Bodies Not Reportable 03/07/21 05:23 Sickle Cells Not Reportable 03/07/21 05:23 Target Cells Not Reportable 03/07/21 05:23 Tear Drop Cells Not Reportable 03/07/21 05:23 Ovalocytes Not Reportable 03/07/21 05:23 Helmet Cells Not Reportable 03/07/21 05:23 Mercado-Eclectic Bodies Not Reportable 03/07/21 05:23 [place] Rings Not Reportable 03/07/21 05:23 Kathy Cells Not Reportable 03/07/21 05:23 Bite Cells Not Reportable 03/07/21 05:23 Crenated Cell Not Reportable 03/07/21 05:23 Elliptocytes Not Reportable 03/07/21 05:23 Acanthocytes (Spur) Not Reportable 03/07/21 05:23 Rouleaux Not Reportable 03/07/21 05:23 Hemoglobin C Crystals Not Reportable 03/07/21 05:23 Schistocytes Not Reportable 03/07/21 05:23 Malaria parasites Not Reportable 03/07/21 05:23 Samir Bodies Not Reportable 03/07/21 05:23 Hem Pathologist Commnt No 03/07/21 05:23 PT 13.7 Sec. (12.2-14.9) 02/26/21 04:33 INR 1.00 (0.87-1.13) 02/26/21 04:33 Sodium 135 mmol/L (137-145) L 03/16/21 06:43 Potassium 3.6 mmol/L (3.6-5.0) 03/16/21 06:43 Chloride 95.5 mmol/L (98-107) L 03/16/21 06:43 Carbon Dioxide 30 mmol/L (22-30) 03/16/21 06:43 Anion Gap 13 mmol/L 03/16/21 06:43 BUN 37 mg/dL (9-20) H 03/16/21 06:43 Creatinine 5.2 mg/dL (0.8-1.3) H 03/16/21 06:43 Estimated GFR 12 ml/min 03/16/21 06:43 BUN/Creatinine Ratio 7 % 03/16/21 06:43 Glucose 187 mg/dL (75-100) H 03/16/21 06:43 POC Glucose 254 mg/dL (70-105) H 03/18/21 21:35 Hemoglobin A1c 7.4 % (4-6) H 02/26/21 04:33 Calcium 7.8 mg/dL (8.4-10.2) L 03/16/21 06:43 Magnesium 2.10 mg/dL (1.7-2.3) 02/17/21 02:24 Total Bilirubin 0.60 mg/dL (0.1-1.2) 03/14/21 07:24 Direct Bilirubin 0.3 mg/dL (0-0.2) H 03/14/21 07:24 Indirect Bilirubin 0.3 mg/dL 03/14/21 07:24 AST 57 units/L (5-40) H 03/14/21 07:24 ALT 24 units/L (7-56) 03/14/21 07:24 Alkaline Phosphatase 179 units/L (35-129) H 03/14/21 07:24 Ammonia 30.0 umol/L (25-60) 03/14/21 07:24 Total Creatine Kinase 86 units/L (55-170) 02/17/21 02:24 Total Protein 6.2 g/dL (6.3-8.2) L 03/14/21 07:24 Albumin 2.3 g/dL (3.9-5) L 03/14/21 07:24 Albumin/Globulin Ratio 0.6 % 03/14/21 07:24 TSH 0.986 mlU/mL (0.270-4.200) 02/17/21 02:24 Urine Color Yellow (Yellow) 02/17/21 Unknown Urine Turbidity Clear (Clear) 02/17/21 Unknown Urine pH 6.0 (5.0-7.0) 02/17/21 Unknown Ur Specific [place] 1.012 (1.003-1.030) 02/17/21 Unknown Urine Protein 100 mg/dl mg/dL (Negative) 02/17/21 Unknown Urine Glucose (UA) >=500 mg/dL (Negative) 02/17/21 Unknown Urine Ketones Neg mg/dL (Negative) 02/17/21 Unknown Urine Blood Neg (Negative) 02/17/21 Unknown Urine Nitrite Neg (Negative) 02/17/21 Unknown Urine Bilirubin Neg (Negative) 02/17/21 Unknown Urine Urobilinogen < 2.0 mg/dL (<2.0) 02/17/21 Unknown Ur Leukocyte Esterase Neg (Negative) 02/17/21 Unknown Urine WBC (Auto) 2.0 /HPF (0.0-6.0) 02/17/21 Unknown Urine RBC (Auto) 2.0 /HPF (0.0-6.0) 02/17/21 Unknown U Epithel Cells (Auto) < 1.0 /HPF (0-13.0) 02/17/21 Unknown Urine Bacteria (Auto) 1+ /HPF (Negative) 02/17/21 Unknown Salicylates < 0.3 mg/dL (2.8-20.0) L 02/17/21 02:24 Acetaminophen 5.0 ug/mL (10.0-30.0) L 02/17/21 02:24 Coronavirus (PCR) Positive (Negative) A 03/08/21 10:57 Hepatitis A IgM Ab Non-reactive (NonReactive) 02/28/21 12:37 Hep Bs Antigen Non-reactive (Negative) 02/28/21 12:37 Hep B Core IgM Ab Non-reactive (NonReactive) 02/28/21 12:37 Hepatitis C Antibody Non-reactive (NonReactive) 02/28/21 12:37 Blood Type A POSITIVE 03/07/21 06:31 Antibody Screen Negative 03/07/21 06:31 Crossmatch See Detail 03/07/21 06:31 Sr/IV: Voiding Method Urinal Active Medications - Current Medications Current Medications: Generic Name Dose Route Start Last Admin Trade Name Freq PRN Reason Stop Dose Admin Acetaminophen 650 mg 02/18/21 22:38 03/09/21 13:15 Acetaminophen 325 Mg Tab PO 650 mg Q4H PRN Administration Pain MILD(1-3)/Fever >100.5/MOLINA Albuterol 2.5 mg 02/18/21 22:38 Albuterol 2.5 Mg/3 Ml Nebu IH Q3HRT PRN Shortness Of Breath Allopurinol 100 mg 02/20/21 10:00 03/18/21 14:26 Allopurinol 100 Mg Tab PO 100 mg QDAY LEYLA Administration Calcium Acetate 1,334 mg 02/20/21 08:30 03/18/21 18:11 Calcium Acetate 667 Mg Cap PO Not Given TIDWM LEYLA Dextrose 0 ml 02/18/21 23:00 02/25/21 16:56 Dextrose 50% In Water (25gm) 50 Ml Syringe IV 50 ml Q30MIN PRN Administration Hypoglycemia Protocol Diphenhydramine HCl 25 mg 02/23/21 09:10 03/01/21 10:30 Diphenhydramine 25 Mg Cap PO 25 mg BID PRN Administration Itching Famotidine 20 mg 02/19/21 10:00 03/18/21 14:27 Famotidine 20 Mg Tab PO 20 mg QAM LEYLA Administration Hydralazine HCl 10 mg 02/18/21 22:56 Hydralazine 20 Mg/1 Ml Inj IV Q6H PRN htn Sodium Chloride 100 mls @ 999 mls/hr 02/19/21 09:06 Nacl 0.9% IV OLIVIA PRN Hypotension Dextrose/Sodium Chloride 1,000 mls @ 50 mls/hr 03/12/21 15:00 03/19/21 01:08 D5/0.45ns IV 50 mls/hr DIRECT LEYLA Administration Insulin Glargine 10 units 03/09/21 22:00 03/18/21 22:34 Insulin Glargine 100 Units/Ml SUB-Q 10 units QHS LEYLA Administration Insulin Human Lispro 0 unit 03/09/21 22:00 03/18/21 22:32 Insulin Lispro 100 Unit/Ml SUB-Q 6 unit ACHS LEYLA Administration Protocol Lactulose 20 gm 03/09/21 18:00 03/19/21 06:09 Lactulose 20 Gm/30 Ml Oral Liqd PO 20 gm Q6HR LEYLA Administration Ondansetron HCl 4 mg 02/18/21 22:38 02/28/21 12:32 Ondansetron 4 Mg/2 Ml Inj IV 4 mg Q8H PRN Administration Nausea And Vomiting Polyethylene Glycol 17 gm 02/24/21 12:08 02/24/21 12:47 Polyethylene Glycol 3350 17 Gm Powder PO 17 gm QDAY PRN Administration Constipation Propranolol HCl 20 mg 02/20/21 10:00 03/18/21 22:31 Propranolol 10 Mg Tab PO 20 mg BID LEYLA Administration Rifaximin 550 mg 03/10/21 12:00 03/18/21 22:34 Rifaximin 550 Mg Tab PO 550 mg BID LEYLA Administration Sodium Chloride 10 ml 02/19/21 10:00 03/18/21 22:35 Sodium Chloride 0.9% 10 Ml Flush Syringe IV 10 ml BID LEYLA Administration Sodium Chloride 10 ml 02/18/21 22:38 Sodium Chloride 0.9% 10 Ml Flush Syringe IV PRN PRN LINE FLUSH Tramadol HCl 50 mg 02/24/21 13:20 03/16/21 21:03 Tramadol 50 Mg Tab PO 50 mg Q6H PRN Administration Pain, Moderate (4-6) Zolpidem Tartrate 5 mg 02/24/21 09:54 03/08/21 23:25 Zolpidem 5 Mg Tab PO 5 mg QHS PRN Administration Sleep Nutrition/Malnutrition Assess - Dietary Evaluation Nutrition/Malnutrition Findings: Nutrition Notes Start: 02/19/21 10:48 Freq: Status: Active Protocol: Document 03/18/21 12:24 ALISSA (Rec: 03/18/21 12:26 MK [id number]) Nutrition Notes Initial or Follow up Brief Note Current Diagnosis CKD (stage V CKD),Diabetes Other Pertinent Diagnosis COVID-19 (+), hepatic encephalopathy, ascites Current Diet Renal/Consistent CHO + Nepro once daily Subjective/Other Information Pt refused meals and medications yesterday. Unable to speak with pt. Nutrition Intervention Follow-Up By: 03/19/21 Additional Comments F/U for PO/ONS intakes, POC
[2021-03-19] MEDS: INSULIN LISPRO 100 UNIT/ML SUB-Q SCH ×4 (08:10→22:17)
[2021-03-19] MEDS: allopurinoL 100 MG TAB PO SCH (09:53)
[2021-03-19] MEDS: RIFAXIMIN 550 MG TAB PO SCH ×2 (09:53→22:29)
[2021-03-19] MEDS: FAMOTIDINE 20 MG TAB PO SCH (09:53)
[2021-03-19] MEDS: CALCIUM ACETATE 667 MG CAP PO SCH ×3 (09:53→17:28)
[2021-03-19] MEDS: PROPRANOLOL 10 MG TAB PO SCH ×2 (09:54→22:29)
--- NOTE | 2021-03-19 10:08 | Progress Note ---
Assessment and Plan 1. ESRD: Patient is on maintenance hemodialysis three times a week, MWF schedule. Meds dosage based on GFR. Missed HD 02/18. Hemodialysis: 02/19, 02/20, 02/22, 02/25, 02/27, 03/01, 03/04, 03/06, 03/08, 03/11, 03/13, 03/15, 03/18. 2. FEN: Hyperkalemia, improved. Monitor lytes and volume status. 3. Anemia, POA: 2/2 ESRD and Liver disease. Epogen with HD. PRBC as needed. 4. Cirrhosis with h/o hepatic encephalopathy: Lactulose and Rifaximin. Monitor. 5. DM type 2: SSI. Monitor. 6. Thrombocytopenia, POA. 7. Hypertension: Monitor BP. Adjust meds as appropriate. Await placement. Delay in placement due to Covid test positive. Subjective: Patient was seen and examined at the bedside. General Appearance: General appearance: well-developed, appears stated age, not in distress HEENT: ATNC, pupils equal Neck: trachea midline Respiratory: ctab Heart: regular, S1S2, no murmur Abdomen: soft, bowel sounds heard, slightly distended, not tender Integumentary: no rash, warm and dry Neurologic: alert, conversing, moving extremities Ext: no edema, R BKA Hemodialysis access: R arm AVF Subjective Date of service: 03/19/21 Objective - Vital Signs Vital signs: Vital Signs - 12hr 03/18/21 03/18/21 03/19/21 22:20 22:31 09:54 Pulse Rate 77 77 Pulse Rate [ 78 Anterior Bilateral Throughout] Respiratory 16 Rate [Anterior Bilateral Throughout] Blood Pressure 129/32 129/32 - Lab 03/16/21 06:43 03/16/21 06:43 Most recent lab results Calcium 7.8 mg/dL (8.4-10.2) L 03/16/21 06:43 Magnesium 2.10 mg/dL (1.7-2.3) 02/17/21 02:24 Medications & Allergies - Medications Allergies/Adverse Reactions: Allergies No Known Allergies Allergy (Verified 02/16/21 18:26) Home Medications: Home Medications Medication Instructions Recorded Confirmed Last Taken Type Calcium Acetate [Phoslo] 1,334 mg PO TIDWM #90 capsule 03/01/21 Unknown Rx Famotidine [Pepcid] 20 mg PO QAM #30 tablet 03/01/21 Unknown Rx Lactulose [Cephulac] 20 gm PO Q8HR 30 Days 03/01/21 Unknown Rx Lispro Insulin [HumaLOG] See Protocol SQ ACHS 30 Days 03/01/21 Unknown Rx allopurinoL [Zyloprim] 100 mg PO QDAY #30 tablet 03/01/21 Unknown Rx propranoloL [Inderal] 20 mg PO BID #60 tablet 03/01/21 Unknown Rx Active Medications: Generic Name Dose Route Start Last Admin Trade Name Freq PRN Reason Stop Dose Admin Acetaminophen 650 mg 02/18/21 22:38 03/09/21 13:15 Acetaminophen 325 Mg Tab PO 650 mg Q4H PRN Administration Pain MILD(1-3)/Fever >100.5/MOLINA Albuterol 2.5 mg 02/18/21 22:38 Albuterol 2.5 Mg/3 Ml Nebu IH Q3HRT PRN Shortness Of Breath Allopurinol 100 mg 02/20/21 10:00 03/19/21 09:53 Allopurinol 100 Mg Tab PO 100 mg QDAY LEYAL Administration Calcium Acetate 1,334 mg 02/20/21 08:30 03/19/21 09:53 Calcium Acetate 667 Mg Cap PO 1,334 mg TIDWM LEYLA Administration Dextrose 0 ml 02/18/21 23:00 02/25/21 16:56 Dextrose 50% In Water (25gm) 50 Ml Syringe IV 50 ml Q30MIN PRN Administration Hypoglycemia Protocol Diphenhydramine HCl 25 mg 02/23/21 09:10 03/01/21 10:30 Diphenhydramine 25 Mg Cap PO 25 mg BID PRN Administration Itching Famotidine 20 mg 02/19/21 10:00 03/19/21 09:53 Famotidine 20 Mg Tab PO 20 mg QAM LEYLA Administration Hydralazine HCl 10 mg 02/18/21 22:56 Hydralazine 20 Mg/1 Ml Inj IV Q6H PRN htn Sodium Chloride 100 mls @ 999 mls/hr 02/19/21 09:06 Nacl 0.9% IV OLIVIA PRN Hypotension Dextrose/Sodium Chloride 1,000 mls @ 50 mls/hr 03/12/21 15:00 03/19/21 01:08 D5/0.45ns IV 50 mls/hr DIRECT LEYLA Administration Insulin Glargine 10 units 03/09/21 22:00 03/18/21 22:34 Insulin Glargine 100 Units/Ml SUB-Q 10 units QHS LEYLA Administration Insulin Human Lispro 0 unit 03/09/21 22:00 03/19/21 08:10 Insulin Lispro 100 Unit/Ml SUB-Q 6 unit ACHS LEYLA Administration Protocol Lactulose 20 gm 03/09/21 18:00 03/19/21 06:09 Lactulose 20 Gm/30 Ml Oral Liqd PO 20 gm Q6HR LEYLA Administration Ondansetron HCl 4 mg 02/18/21 22:38 02/28/21 12:32 Ondansetron 4 Mg/2 Ml Inj IV 4 mg Q8H PRN Administration Nausea And Vomiting Polyethylene Glycol 17 gm 02/24/21 12:08 02/24/21 12:47 Polyethylene Glycol 3350 17 Gm Powder PO 17 gm QDAY PRN Administration Constipation Propranolol HCl 20 mg 02/20/21 10:00 03/19/21 09:54 Propranolol 10 Mg Tab PO 20 mg BID LEYLA Administration Rifaximin 550 mg 03/10/21 12:00 03/19/21 09:53 Rifaximin 550 Mg Tab PO 550 mg BID LEYLA Administration Sodium Chloride 10 ml 02/19/21 10:00 03/19/21 09:53 Sodium Chloride 0.9% 10 Ml Flush Syringe IV 10 ml BID LEYLA Administration Sodium Chloride 10 ml 02/18/21 22:38 Sodium Chloride 0.9% 10 Ml Flush Syringe IV PRN PRN LINE FLUSH Tramadol HCl 50 mg 02/24/21 13:20 03/16/21 21:03 Tramadol 50 Mg Tab PO 50 mg Q6H PRN Administration Pain, Moderate (4-6) Zolpidem Tartrate 5 mg 02/24/21 09:54 03/08/21 23:25 Zolpidem 5 Mg Tab PO 5 mg QHS PRN Administration Sleep
[2021-03-19] MEDS: INSULIN GLARGINE 100 UNITS/ML SUB-Q SCH (22:17)
[2021-03-20] MEDS: LACTULOSE 20 GM/30 ML ORAL LIQD PO SCH ×5 (05:37→17:17)
--- NOTE | 2021-03-20 07:16 | Progress Note ---
Assessment and Plan Assessment and plan: 55 YO Male with ESRD on HD, Noncompliance with outpatient dialysis, Anemia, HBV, Chronic Liver Disease, Cirrhosis complicated by Esophageal Varices, HTN, Debility, DM presents to ED with confusion with diminished cognition. Patient family report the patient was "not acting like himself" and found to have worsening confusion over the past 2 days. In the ER the patient was found to have hepatic encephalopathy complicated by diminished cognition, end-stage renal disease in need of urgent dialysis, as well as uncontrolled diabetes, and acidosis. Nephrology team consulted in ED and patient was then admitted for further evaluation and Mx. A/p -- Hepatic encephalopathy due to hepatic cirrhosis cont lactulose, Neuro check, seizure precaution, aspiration precaution, fall precautions, continue to monitor. -- End stage renal disease Nephrology team consulted, strict I's/O, monitor urine output every shift, dialysis as per renal team, avoid nephrotoxic agents. --Metabolic Acidosis Nephrology team consulted, dialysis as per renal team. --Hyponatremia Monitor BMP, monitor fluid balance. -- Hyperammonemia Continue lactulose --Diabetes mellitus with hyperglycemia Consistent carb diet, SSI -- hyperkalemia, Improvement with dialysis --Ascitis, s/p paracentesis drained 6.2l of ascitic fluid --Sacral wound, cont wound care -- Moderate Protein Calorie Malnutrition, nutrition consulted --Noncompliance, counseled for medication compliance --DVT Px, SCD --DNR code status --Disposition: needs placement, CM waiting for placement Daily clinical course: 02/19: Resume dialysis will adjust insulin for better coverage. Very poor progn osis considering poor medical compliance. Agree with hospice recommendation. Will obtain wound care to continue to manage. Monitor anemia as patient was pretty anemic during the last hospitalization. Required transfusion. 02/20: Continues to undergo dialysis no change in mental status noted. Tolerating medications. Blood sugar mildly elevated adjusted insulin yesterday when awake for the patient received a dose today and if still elevated will adjust. Again case management is working on discharge plan for this patient as he is pending placement 02/21 patient complains of right hip pain. He said he fell few weeks ago and is concerned about another fracture. He had a fracture about 8 weeks ago and had surgery. Will obtain X ray right hip. Patient pending placement. 02/22 Patient seen in Dialysis Unit. He states hip pain improved. No other complaints. Right hip X ray done yesterday report read may be healing fracture or acute fracture. Will discuss with Orthopedic Surgeon Patient pending placement 02/23 Less hip pain. Today complains of generalized itching. Will start Benadryl po prn. Orthopedic consulted to evaluate right hip. Patient pending placement 02/24 Less hip pain. Generalized itching now resolved. Orthopedic consulted to evaluate right hip. He complains of sleeplessness. Will give Ambien prn Patient pending placement 02/25 Patient requested DNR status yesterday. I discussed with him and he signed forms. He also complains of worsening abdominal distension and requested t apping, Will order paracentesis. Right hip evaluated by Dr. Trivedi and conservative management recommended. 02/26: Plan for paracentesis today. Need to set up dialysis as outpatient. catering operations manager working on discharge planning. 02/27: Patient did not sign the consent for paracentesis yesterday so paracentesis was done today and aspirated 6.2L ascitic fluid. Patient refusing medication per RN. Getting dialysis. Patient noted slightly altered today, will place NG tube remains altered and keep refusing oral meds, order for ammonia level and will cont lactulose. 02/28: Patient appears much more calm and cooperative today. He stated that he has been refusing procedure and medication as he believes he was not in the right state of his mind. Patient acknowledges the importance of being compliant and he promises that he will take the medications as he will be given. Discharge planning per case management as patient would need outpatient dialysis center set up and personal m[facility]p set up. 03/01/21: Patient has chcf setting but according to behavioral health case manager no available RN to accept the patient till Thursday. Continue supportive care. Discharge pending on placement. 03/02/21 -03/04/21: Discharge pending on placement, continue to monitor clinically. Continue current management and plan and supportive care. Patient need SNF placement. 03/05/2021; Awaiting SNF placement for discharge. Prognosis is very poor. Patient is nonresponsive. I try to reach to his son over the phone but could not get in touch. Patient is appropriate for hospice care. 03/06/2021; patient is awaiting SNF placement. Patient was alert and oriented. No confusion. Patient is stable to be discharged back to SNF. 03/07/2021; patient has hemoglobin of 6.8 this morning. A unit of blood ordered. Will monitor H&H. Nephrology is following for dialysis. 03/08/2021; patient's hemoglobin was 6.8 yesterday and transfused a unit of blood. I ordered yesterday to do posttransfusion H&H and was not done. CBC was ordered to be done this morning but was not done. COVID-19 test was done on 03/06 and positive. Nephrology is following the patient for his dialysis. Plan is to discharge him to SNF. Will follow with case management because patient is Covid positive. 03/09/2021; patient's repeat Covid test on 03/08/2021 was positive. Patient is pending for SNF Placement. Patient had hypoglycemia yesterday and patient was placed on Lantus and his sliding scale adjusted to high dose. Will monitor and adjust as needed. 03/10/2021; pending SNF placement. Covid test was positive on and . 03/11/2021; patient has hepatic encephalopathy and his ammonia level is very high, patient is currently on lactulose and rifaximin. Ammonia level is trending down. Nephrology is following for dialysis. Patient has positive Covid test last one was on 03/08, that makes placement difficult. Continue with case management. 03/12: Still awaiting placement, discussed with nursing staff to monitor mental status changes. Will check ammonia level. Continue to adjust blood sugar. Complicated by COVID POSITIVELY. Awaiting placement for the patient. Also dialysis chair time. I have discussed with case management as my understanding was that patient was to go for hospice but this plan appears to have changed possibly not clear to me at this time 03/13: Continue supportive care crush medications that can be crushed. Ammonia level is elevated but not as elevated as previously. Continue lactulose advised nursing staff that this should be given as ordered to communicate with the night team also. Unfortunately when the patient gets better he refuses his lactulose. I truly believe that we should strongly consider palliative care for this patient but nevertheless if he wants to continue dialysis and will be compliant with his medications this is definitely an option can be pursued. Aspiration precautions monitor hemoglobin and platelets. 03/14: Patient seen and examined, more awake today. Continue supportive care, patient was made DNR wade, signed the form today after confirming the patient and also the physician. Monitor for fever. AWAITING PLACEMENT. poor prognosis 03/15/21 Patient is seen and examined. Lab and medication reviewed. Patient denied any chest pain or shortness of breath. Patient is more awake alert today. Patient is getting them hemodialysis today. Continue current management. Awaiting placement. 03/16/21 patient seen and examined. Lab and medication reviewed. Patient feels better. Hemoglobin 8.2 and hematocrit 23.9. Complained of pain in the butt. No other complain. Continue current management and supportive care. Patient is waiting for placement. 03/17: Patient remains with poor prognosis refusing dietary intake. Again discussed hospice and palliative care management considering his current medical condition and declining poor prognostic factors. Discussed with nursing staff patient will continue with lactulose had refused this morning but did take it yesterday. Continue aspiration precautions. Discussed the importance of taking the medication the patient verbalized understanding 03/18: Patient undergoing HD discharge planning ongoing discussed with case management team. Covid test ordered today for placement purposes. 03/19/2021; Covid test was ordered and result is pending. Pending placement. 03/20/2021; patient's Covid test was positive again on 03/20/2021. Pending placement. - Patient Problems (1) End-stage renal disease needing dialysis Current Visit: Yes Status: Acute (2) Diabetes 1.5, managed as type 2 Current Visit: Yes Status: Acute (3) Anemia Current Visit: Yes Status: Acute (4) Case management patient Current Visit: Yes Status: Acute (5) Chronic liver disease and cirrhosis Current Visit: Yes Status: Acute (6) Hyponatremia Current Visit: No Status: Acute (7) Hypertension Current Visit: Yes Status: Acute (8) failure to thrive (9) severe protein calorie malnutrition (10) DVT prophylaxis Current Visit: No Status: Acute History Interval history: Patient was seen and evaluated this morning Patient was alert and oriented Patient doesn't have new complaints Hospitalist Physical - Physical exam Narrative exam: Not in cardiopulmonary distress. The patient appeared well nourished and normally developed. Vital signs as documented. Head exam is unremarkable. No scleral icterus . Neck is without jugular venous distension, thyromegaly, or carotid bruits. Lungs are clear to auscultation. Cardiac exam reveals regular rate and Rhythm. Abdominal exam reveals normal bowel sounds, nontender, no organomegaly. Extremities right BKA. 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 Sacral decubitus ulcer. - Constitutional Vitals: Temp Pulse Resp BP Pulse Ox 97.6 F 80 18 148/72 94 03/18/21 21:51 03/20/21 05:49 03/20/21 05:48 03/20/21 05:48 03/20/21 05:49 General appearance: Present: no acute distress, well-nourished Results - Labs CBC & Chem 7: 03/16/21 06:43 03/16/21 06:43 Labs: Laboratory Last Values WBC 4.5 K/mm3 (4.5-11.0) 03/16/21 06:43 RBC 2.60 M/mm3 (3.65-5.03) L 03/16/21 06:43 Hgb 8.0 gm/dl (11.8-15.2) L 03/16/21 06:43 Hct 23.9 % (35.5-45.6) L 03/16/21 06:43 MCV 92 fl (84-94) 03/16/21 06:43 MCH 31 pg (28-32) 03/16/21 06:43 MCHC 34 % (32-34) 03/16/21 06:43 RDW 15.7 % (13.2-15.2) H 03/16/21 06:43 Plt Count 95 K/mm3 (140-440) L 03/16/21 06:43 Lymph % (Auto) 8.7 % (13.4-35.0) L 03/16/21 06:43 Quay % (Auto) 11.6 % (0.0-7.3) H 03/16/21 06:43 Eos % (Auto) 0.2 % (0.0-4.3) 03/16/21 06:43 Baso % (Auto) 0.3 % (0.0-1.8) 03/16/21 06:43 Lymph # (Auto) 0.4 K/mm3 (1.2-5.4) L 03/16/21 06:43 Quay # (Auto) 0.5 K/mm3 (0.0-0.8) 03/16/21 06:43 Eos # (Auto) 0.0 K/mm3 (0.0-0.4) 03/16/21 06:43 Baso # (Auto) 0.0 K/mm3 (0.0-0.1) 03/16/21 06:43 Add Manual Diff Complete 03/07/21 05:23 Total Counted 100 03/07/21 05:23 Seg Neutrophils % 79.2 % (40.0-70.0) H 03/16/21 06:43 Seg Neuts % (Manual) 78.0 % (40.0-70.0) H 03/07/21 05:23 Lymphocytes % (Manual) 13.0 % (13.4-35.0) L 03/07/21 05:23 Monocytes % (Manual) 9.0 % (0.0-7.3) H 03/07/21 05:23 Nucleated RBC % Not Reportable 03/07/21 05:23 Seg Neutrophils # 3.6 K/mm3 (1.8-7.7) 03/16/21 06:43 Seg Neutrophils # Man 2.0 K/mm3 (1.8-7.7) 03/07/21 05:23 Band Neutrophils # 0.0 K/mm3 03/07/21 05:23 Lymphocytes # (Manual) 0.3 K/mm3 (1.2-5.4) L 03/07/21 05:23 Abs React Lymphs (Man) 0.0 K/mm3 03/07/21 05:23 Monocytes # (Manual) 0.2 K/mm3 (0.0-0.8) 03/07/21 05:23 Eosinophils # (Manual) 0.0 K/mm3 (0.0-0.4) 03/07/21 05:23 Basophils # (Manual) 0.0 K/mm3 (0.0-0.1) 03/07/21 05:23 Metamyelocytes # 0.0 K/mm3 03/07/21 05:23 Myelocytes # 0.0 K/mm3 03/07/21 05:23 Promyelocytes # 0.0 K/mm3 03/07/21 05:23 Blast Cells # 0.0 K/mm3 03/07/21 05:23 WBC Morphology Not Reportable 03/07/21 05:23 Hypersegmented Neuts Not Reportable 03/07/21 05:23 Hyposegmented Neuts Not Reportable 03/07/21 05:23 Hypogranular Neuts Not Reportable 03/07/21 05:23 Smudge Cells Not Reportable 03/07/21 05:23 Toxic Granulation Not Reportable 03/07/21 05:23 Toxic Vacuolation Not Reportable 03/07/21 05:23 Dohle Bodies Not Reportable 03/07/21 05:23 Pelger-Huet Anomaly Not Reportable 03/07/21 05:23 Cosme Rods Not Reportable 03/07/21 05:23 Platelet Estimate Consistent w auto 03/07/21 05:23 Clumped Platelets Not Reportable 03/07/21 05:23 Plt Clumps, EDTA Not Reportable 03/07/21 05:23 Large Platelets Not Reportable 03/07/21 05:23 Giant Platelets Not Reportable 03/07/21 05:23 Platelet Satelliting Not Reportable 03/07/21 05:23 Plt Morphology Comment Not Reportable 03/07/21 05:23 RBC Morphology Not Reportable 03/07/21 05:23 Dimorphic RBCs Not Reportable 03/07/21 05:23 Polychromasia Not Reportable 03/07/21 05:23 Hypochromasia Not Reportable 03/07/21 05:23 Poikilocytosis Not Reportable 03/07/21 05:23 Anisocytosis Few 03/07/21 05:23 Microcytosis Not Reportable 03/07/21 05:23 Macrocytosis Not Reportable 03/07/21 05:23 Spherocytes Not Reportable 03/07/21 05:23 Pappenheimer Bodies Not Reportable 03/07/21 05:23 Sickle Cells Not Reportable 03/07/21 05:23 Target Cells Not Reportable 03/07/21 05:23 Tear Drop Cells Not Reportable 03/07/21 05:23 Ovalocytes Not Reportable 03/07/21 05:23 Helmet Cells Not Reportable 03/07/21 05:23 Mercado-Oark Bodies Not Reportable 03/07/21 05:23 [place] Rings Not Reportable 03/07/21 05:23 Kathy Cells Not Reportable 03/07/21 05:23 Bite Cells Not Reportable 03/07/21 05:23 Crenated Cell Not Reportable 03/07/21 05:23 Elliptocytes Not Reportable 03/07/21 05:23 Acanthocytes (Spur) Not Reportable 03/07/21 05:23 Rouleaux Not Reportable 03/07/21 05:23 Hemoglobin C Crystals Not Reportable 03/07/21 05:23 Schistocytes Not Reportable 03/07/21 05:23 Malaria parasites Not Reportable 03/07/21 05:23 Samir Bodies Not Reportable 03/07/21 05:23 Hem Pathologist Commnt No 03/07/21 05:23 PT 13.7 Sec. (12.2-14.9) 02/26/21 04:33 INR 1.00 (0.87-1.13) 02/26/21 04:33 Sodium 135 mmol/L (137-145) L 03/16/21 06:43 Potassium 3.6 mmol/L (3.6-5.0) 03/16/21 06:43 Chloride 95.5 mmol/L (98-107) L 03/16/21 06:43 Carbon Dioxide 30 mmol/L (22-30) 03/16/21 06:43 Anion Gap 13 mmol/L 03/16/21 06:43 BUN 37 mg/dL (9-20) H 03/16/21 06:43 Creatinine 5.2 mg/dL (0.8-1.3) H 03/16/21 06:43 Estimated GFR 12 ml/min 03/16/21 06:43 BUN/Creatinine Ratio 7 % 03/16/21 06:43 Glucose 187 mg/dL (75-100) H 03/16/21 06:43 POC Glucose 270 mg/dL (70-105) H 03/19/21 21:17 Hemoglobin A1c 7.4 % (4-6) H 02/26/21 04:33 Calcium 7.8 mg/dL (8.4-10.2) L 03/16/21 06:43 Magnesium 2.10 mg/dL (1.7-2.3) 02/17/21 02:24 Total Bilirubin 0.60 mg/dL (0.1-1.2) 03/14/21 07:24 Direct Bilirubin 0.3 mg/dL (0-0.2) H 03/14/21 07:24 Indirect Bilirubin 0.3 mg/dL 03/14/21 07:24 AST 57 units/L (5-40) H 03/14/21 07:24 ALT 24 units/L (7-56) 03/14/21 07:24 Alkaline Phosphatase 179 units/L (35-129) H 03/14/21 07:24 Ammonia 30.0 umol/L (25-60) 03/14/21 07:24 Total Creatine Kinase 86 units/L (55-170) 02/17/21 02:24 Total Protein 6.2 g/dL (6.3-8.2) L 03/14/21 07:24 Albumin 2.3 g/dL (3.9-5) L 03/14/21 07:24 Albumin/Globulin Ratio 0.6 % 03/14/21 07:24 TSH 0.986 mlU/mL (0.270-4.200) 02/17/21 02:24 Urine Color Yellow (Yellow) 02/17/21 Unknown Urine Turbidity Clear (Clear) 02/17/21 Unknown Urine pH 6.0 (5.0-7.0) 02/17/21 Unknown Ur Specific [place] 1.012 (1.003-1.030) 02/17/21 Unknown Urine Protein 100 mg/dl mg/dL (Negative) 02/17/21 Unknown Urine Glucose (UA) >=500 mg/dL (Negative) 02/17/21 Unknown Urine Ketones Neg mg/dL (Negative) 02/17/21 Unknown Urine Blood Neg (Negative) 02/17/21 Unknown Urine Nitrite Neg (Negative) 02/17/21 Unknown Urine Bilirubin Neg (Negative) 02/17/21 Unknown Urine Urobilinogen < 2.0 mg/dL (<2.0) 02/17/21 Unknown Ur Leukocyte Esterase Neg (Negative) 02/17/21 Unknown Urine WBC (Auto) 2.0 /HPF (0.0-6.0) 02/17/21 Unknown Urine RBC (Auto) 2.0 /HPF (0.0-6.0) 02/17/21 Unknown U Epithel Cells (Auto) < 1.0 /HPF (0-13.0) 02/17/21 Unknown Urine Bacteria (Auto) 1+ /HPF (Negative) 02/17/21 Unknown Salicylates < 0.3 mg/dL (2.8-20.0) L 02/17/21 02:24 Acetaminophen 5.0 ug/mL (10.0-30.0) L 02/17/21 02:24 Coronavirus (PCR) Positive (Negative) A 03/18/21 Unknown Hepatitis A IgM Ab Non-reactive (NonReactive) 02/28/21 12:37 Hep Bs Antigen Non-reactive (Negative) 02/28/21 12:37 Hep B Core IgM Ab Non-reactive (NonReactive) 02/28/21 12:37 Hepatitis C Antibody Non-reactive (NonReactive) 02/28/21 12:37 Blood Type A POSITIVE 03/07/21 06:31 Antibody Screen Negative 03/07/21 06:31 Crossmatch See Detail 03/07/21 06:31 Sr/IV: Voiding Method Incontinent Active Medications - Current Medications Current Medications: Generic Name Dose Route Start Last Admin Trade Name Freq PRN Reason Stop Dose Admin Acetaminophen 650 mg 02/18/21 22:38 03/09/21 13:15 Acetaminophen 325 Mg Tab PO 650 mg Q4H PRN Administration Pain MILD(1-3)/Fever >100.5/MOLINA Albuterol 2.5 mg 02/18/21 22:38 Albuterol 2.5 Mg/3 Ml Nebu IH Q3HRT PRN Shortness Of Breath Allopurinol 100 mg 02/20/21 10:00 03/19/21 09:53 Allopurinol 100 Mg Tab PO 100 mg QDAY LEYLA Administration Calcium Acetate 1,334 mg 02/20/21 08:30 03/19/21 17:28 Calcium Acetate 667 Mg Cap PO Not Given TIDWM LEYLA Dextrose 0 ml 02/18/21 23:00 02/25/21 16:56 Dextrose 50% In Water (25gm) 50 Ml Syringe IV 50 ml Q30MIN PRN Administration Hypoglycemia Protocol Diphenhydramine HCl 25 mg 02/23/21 09:10 03/01/21 10:30 Diphenhydramine 25 Mg Cap PO 25 mg BID PRN Administration Itching Famotidine 20 mg 02/19/21 10:00 03/19/21 09:53 Famotidine 20 Mg Tab PO 20 mg QAM LEYLA Administration Hydralazine HCl 10 mg 02/18/21 22:56 Hydralazine 20 Mg/1 Ml Inj IV Q6H PRN htn Sodium Chloride 100 mls @ 999 mls/hr 02/19/21 09:06 Nacl 0.9% IV OLIVIA PRN Hypotension Dextrose/Sodium Chloride 1,000 mls @ 50 mls/hr 03/12/21 15:00 03/19/21 20:31 D5/0.45ns IV 50 mls/hr DIRECT LEYLA Administration Insulin Glargine 10 units 03/09/21 22:00 03/19/21 22:17 Insulin Glargine 100 Units/Ml SUB-Q 10 units QHS LEYLA Administration Insulin Human Lispro 0 unit 03/09/21 22:00 03/19/21 22:17 Insulin Lispro 100 Unit/Ml SUB-Q 6 unit ACHS LEYLA Administration Protocol Lactulose 20 gm 03/09/21 18:00 03/20/21 05:39 Lactulose 20 Gm/30 Ml Oral Liqd PO 20 gm Q6HR LEYLA Administration Ondansetron HCl 4 mg 02/18/21 22:38 02/28/21 12:32 Ondansetron 4 Mg/2 Ml Inj IV 4 mg Q8H PRN Administration Nausea And Vomiting Polyethylene Glycol 17 gm 02/24/21 12:08 02/24/21 12:47 Polyethylene Glycol 3350 17 Gm Powder PO 17 gm QDAY PRN Administration Constipation Propranolol HCl 20 mg 02/20/21 10:00 03/19/21 22:29 Propranolol 10 Mg Tab PO 20 mg BID LEYLA Administration Rifaximin 550 mg 03/10/21 12:00 03/19/21 22:29 Rifaximin 550 Mg Tab PO 550 mg BID LEYLA Administration Sodium Chloride 10 ml 02/19/21 10:00 03/19/21 22:28 Sodium Chloride 0.9% 10 Ml Flush Syringe IV 10 ml BID LEYLA Administration Sodium Chloride 10 ml 02/18/21 22:38 Sodium Chloride 0.9% 10 Ml Flush Syringe IV PRN PRN LINE FLUSH Tramadol HCl 50 mg 02/24/21 13:20 03/16/21 21:03 Tramadol 50 Mg Tab PO 50 mg Q6H PRN Administration Pain, Moderate (4-6) Zolpidem Tartrate 5 mg 02/24/21 09:54 03/08/21 23:25 Zolpidem 5 Mg Tab PO 5 mg QHS PRN Administration Sleep Nutrition/Malnutrition Assess - Dietary Evaluation Nutrition/Malnutrition Findings: Nutrition Notes Start: 02/19/21 10:48 Freq: Status: Active Protocol: Document 03/19/21 10:50 (Rec: 03/19/21 10:54 [email or web address]) Nutrition Notes Initial or Follow up Reassessment Current Diagnosis CKD (stage V CKD),Diabetes Other Pertinent Diagnosis COVID-19 (+), hepatic encephalopathy, ascites Current Diet Renal/Consistent CHO + Nepro once daily Labs/Tests POC BG 293 Pertinent Medications D5 1/2 NS at 50 ml/hr Height 5 ft 11 in Weight 67.2 kg [place] Body Weight (kg) 78.18 BMI 20.6 Weight Status Appropriate Subjective/Other Information RN states pt only drank water this AM. Pt did not answer phone. Recommend TF as this is the 5th day pt is refusing to eat. Percent of energy/protein needs met: Negligible Burn Absent Trauma Absent Current % PO Negligible Minimum of two criteria Yes Body Fat Depletion Mild depletion (non-severe) Fluid Accumulation Mild (non-severe) #2 Nutrition Diagnosis Increased nutrient needs ( specify in comment below) Diagnosis Progress(for reassessment Continues documentation) #1 Nutrition Diagnosis Malnutrition Diagnosis Progress(for reassessment Continues documentation) Is patient on ventilator? No Is Patient Ambulatory and/or Out of Bed No REE-([place]. Jeor-confined to bed) [phone] Calculation Used for Recommendations [facility] Additional Notes Pro needs >1.2g/kg/day Fluid needs 1-1.5L/day Nutrition Intervention Change Diet Order: Recommend enteral nutrition support. Nutrition Support: Nepro 1.8 at 45ml/hr Flush 200ml q4h Kcal 1,944 Protein (gm) 87 Fluid (mL) 785 Add Supplement/Snack (indicate name/kcal Nepro daily /protein ) Provides kCal: 425 Provides Protein (gm) 19 Goal #1 PO intake of meals plus ONS to meet at least 75% energy and pro needs or start TF Goal #2 Wound healing Follow-Up By: 03/21/21 Additional Comments FU for PO/ONS intakes and POC
[2021-03-20] MEDS: INSULIN LISPRO 100 UNIT/ML SUB-Q SCH ×4 (08:08→22:43)
[2021-03-20] MEDS: CALCIUM ACETATE 667 MG CAP PO SCH ×3 (08:47→17:17)
[2021-03-20] MEDS: FAMOTIDINE 20 MG TAB PO SCH (09:43)
[2021-03-20] MEDS: PROPRANOLOL 10 MG TAB PO SCH ×2 (09:43→22:43)
[2021-03-20] MEDS: allopurinoL 100 MG TAB PO SCH (09:44)
[2021-03-20] MEDS: RIFAXIMIN 550 MG TAB PO SCH ×2 (09:44→22:43)
--- NOTE | 2021-03-20 13:16 | Progress Note ---
Assessment and Plan 1. ESRD: Patient is on maintenance hemodialysis three times a week, MWF schedule. Meds dosage based on GFR. Missed HD 02/18. Hemodialysis: 02/19, 02/20, 02/22, 02/25, 02/27, 03/01, 03/04, 03/06, 03/08, 03/11, 03/13, 03/15, 03/18, 03/20. 2. FEN: Hyperkalemia, improved. Monitor lytes and volume status. 3. Anemia, POA: 2/2 ESRD and Liver disease. Epogen with HD. PRBC as needed. 4. Cirrhosis with h/o hepatic encephalopathy: Lactulose and Rifaximin. Monitor. 5. DM type 2: SSI. Monitor. 6. Thrombocytopenia, POA. 7. Hypertension: Monitor BP. Adjust meds as appropriate. Await placement. Delay in placement due to Covid test positive. Subjective: Patient was seen and examined at the bedside. General Appearance: General appearance: well-developed, appears stated age, not in distress HEENT: ATNC, pupils equal Neck: trachea midline Respiratory: ctab Heart: regular, S1S2, no murmur Abdomen: soft, bowel sounds heard, slightly distended, not tender Integumentary: no rash, warm and dry Neurologic: alert, conversing, moving extremities Ext: no edema, R BKA Hemodialysis access: R arm AVF Subjective Date of service: 03/20/21 Objective - Vital Signs Vital signs: Vital Signs - 12hr 03/20/21 03/20/21 05:48 05:49 Pulse Rate 81 80 Respiratory 18 Rate Blood Pressure 148/72 O2 Sat by Pulse 94 94 Oximetry - Lab 03/16/21 06:43 03/16/21 06:43 Most recent lab results Calcium 7.8 mg/dL (8.4-10.2) L 03/16/21 06:43 Magnesium 2.10 mg/dL (1.7-2.3) 02/17/21 02:24 Medications & Allergies - Medications Allergies/Adverse Reactions: Allergies No Known Allergies Allergy (Verified 02/16/21 18:26) Home Medications: Home Medications Medication Instructions Recorded Confirmed Last Taken Type Calcium Acetate [Phoslo] 1,334 mg PO TIDWM #90 capsule 03/01/21 Unknown Rx Famotidine [Pepcid] 20 mg PO QAM #30 tablet 03/01/21 Unknown Rx Lactulose [Cephulac] 20 gm PO Q8HR 30 Days 03/01/21 Unknown Rx Lispro Insulin [HumaLOG] See Protocol SQ ACHS 30 Days 03/01/21 Unknown Rx allopurinoL [Zyloprim] 100 mg PO QDAY #30 tablet 03/01/21 Unknown Rx propranoloL [Inderal] 20 mg PO BID #60 tablet 03/01/21 Unknown Rx Active Medications: Generic Name Dose Route Start Last Admin Trade Name Freq PRN Reason Stop Dose Admin Acetaminophen 650 mg 02/18/21 22:38 03/09/21 13:15 Acetaminophen 325 Mg Tab PO 650 mg Q4H PRN Administration Pain MILD(1-3)/Fever >100.5/MOLINA Albuterol 2.5 mg 02/18/21 22:38 Albuterol 2.5 Mg/3 Ml Nebu IH Q3HRT PRN Shortness Of Breath Allopurinol 100 mg 02/20/21 10:00 03/20/21 09:44 Allopurinol 100 Mg Tab PO Not Given QDAY LEYLA Calcium Acetate 1,334 mg 02/20/21 08:30 03/20/21 12:01 Calcium Acetate 667 Mg Cap PO Not Given TIDWM LEYLA Dextrose 0 ml 02/18/21 23:00 02/25/21 16:56 Dextrose 50% In Water (25gm) 50 Ml Syringe IV 50 ml Q30MIN PRN Administration Hypoglycemia Protocol Diphenhydramine HCl 25 mg 02/23/21 09:10 03/01/21 10:30 Diphenhydramine 25 Mg Cap PO 25 mg BID PRN Administration Itching Famotidine 20 mg 02/19/21 10:00 03/20/21 09:43 Famotidine 20 Mg Tab PO Not Given QAM LEYLA Hydralazine HCl 10 mg 02/18/21 22:56 Hydralazine 20 Mg/1 Ml Inj IV Q6H PRN htn Sodium Chloride 100 mls @ 999 mls/hr 02/19/21 09:06 Nacl 0.9% IV OLIVIA PRN Hypotension Dextrose/Sodium Chloride 1,000 mls @ 50 mls/hr 03/12/21 15:00 03/19/21 20:31 D5/0.45ns IV 50 mls/hr DIRECT LEYLA Administration Insulin Glargine 10 units 03/09/21 22:00 03/19/21 22:17 Insulin Glargine 100 Units/Ml SUB-Q 10 units QHS [facility] Administration Insulin Human Lispro 0 unit 03/09/21 22:00 03/20/21 12:01 Insulin Lispro 100 Unit/Ml SUB-Q Not Given ACHS [facility] Protocol Lactulose 20 gm 03/09/21 18:00 03/20/21 12:01 Lactulose 20 Gm/30 Ml Oral Liqd PO Not Given Q6HR [facility] Ondansetron HCl 4 mg 02/18/21 22:38 02/28/21 12:32 Ondansetron 4 Mg/2 Ml Inj IV 4 mg Q8H PRN Administration Nausea And Vomiting Polyethylene Glycol 17 gm 02/24/21 12:08 02/24/21 12:47 Polyethylene Glycol 3350 17 Gm Powder PO 17 gm QDAY PRN Administration Constipation Propranolol HCl 20 mg 02/20/21 10:00 03/20/21 09:43 Propranolol 10 Mg Tab PO Not Given BID [facility] Rifaximin 550 mg 03/10/21 12:00 03/20/21 09:44 Rifaximin 550 Mg Tab PO Not Given BID [facility] Sodium Chloride 10 ml 02/19/21 10:00 03/20/21 09:44 Sodium Chloride 0.9% 10 Ml Flush Syringe IV Not Given BID [facility] Sodium Chloride 10 ml 02/18/21 22:38 Sodium Chloride 0.9% 10 Ml Flush Syringe IV PRN PRN LINE FLUSH Tramadol HCl 50 mg 02/24/21 13:20 03/16/21 21:03 Tramadol 50 Mg Tab PO 50 mg Q6H PRN Administration Pain, Moderate (4-6) Zolpidem Tartrate 5 mg 02/24/21 09:54 03/08/21 23:25 Zolpidem 5 Mg Tab PO 5 mg QHS PRN Administration Sleep
[2021-03-20] MEDS: EPOETIN ALFA-EPBX 20,000 UNIT/1 ML VIAL SUB-Q PRN (14:15)
[2021-03-20] MEDS: INSULIN GLARGINE 100 UNITS/ML SUB-Q SCH (22:44)
[2021-03-21] MEDS: LACTULOSE 20 GM/30 ML ORAL LIQD PO SCH ×5 (01:35→23:32)
[2021-03-21] MEDS: RIFAXIMIN 550 MG TAB PO SCH ×2 (09:56→22:07)
[2021-03-21] MEDS: CALCIUM ACETATE 667 MG CAP PO SCH ×3 (09:57→17:51)
[2021-03-21] MEDS: FAMOTIDINE 20 MG TAB PO SCH (09:57)
[2021-03-21] MEDS: allopurinoL 100 MG TAB PO SCH (09:57)
[2021-03-21] MEDS: PROPRANOLOL 10 MG TAB PO SCH ×2 (09:57→22:07)
[2021-03-21] MEDS: INSULIN LISPRO 100 UNIT/ML SUB-Q SCH ×4 (09:57→22:08)
--- NOTE | 2021-03-21 09:58 | Progress Note ---
Assessment and Plan 1. ESRD: Patient is on maintenance hemodialysis three times a week, MWF schedule. Meds dosage based on GFR. Missed HD 02/18. Hemodialysis: 02/19, 02/20, 02/22, 02/25, 02/27, 03/01, 03/04, 03/06, 03/08, 03/11, 03/13, 03/15, 03/18, 03/20. 2. FEN: Hyperkalemia, improved. Monitor lytes and volume status. 3. Anemia, POA: 2/2 ESRD and Liver disease. Epogen with HD. PRBC as needed. 4. Cirrhosis with h/o hepatic encephalopathy: Lactulose and Rifaximin. Monitor. 5. DM type 2: SSI. Monitor. 6. Thrombocytopenia, POA. 7. Hypertension: Monitor BP. Adjust meds as appropriate. Await placement. Delay in placement due to Covid test positive. Subjective: Patient was seen and examined at the bedside. General Appearance: General appearance: well-developed, appears stated age, not in distress HEENT: ATNC, pupils equal Neck: trachea midline Respiratory: ctab Heart: regular, S1S2, no murmur Abdomen: soft, bowel sounds heard, slightly distended, not tender Integumentary: no rash, warm and dry Neurologic: alert, conversing, moving extremities Ext: no edema, R BKA Hemodialysis access: R arm AVF Subjective Date of service: 03/21/21 Objective - Vital Signs Vital signs: Vital Signs - 12hr 03/20/21 03/21/21 03/21/21 22:42 04:42 06:42 Temperature 98.3 F 98.2 F Pulse Rate 84 89 84 Respiratory 18 18 18 Rate Blood Pressure 124/67 112/42 O2 Sat by Pulse 99 91 94 Oximetry - Lab 03/16/21 06:43 03/16/21 06:43 Most recent lab results Calcium 7.8 mg/dL (8.4-10.2) L 03/16/21 06:43 Magnesium 2.10 mg/dL (1.7-2.3) 02/17/21 02:24 Medications & Allergies - Medications Allergies/Adverse Reactions: Allergies No Known Allergies Allergy (Verified 02/16/21 18:26) Home Medications: Home Medications Medication Instructions Recorded Confirmed Last Taken Type Calcium Acetate [Phoslo] 1,334 mg PO TIDWM #90 capsule 03/01/21 Unknown Rx Famotidine [Pepcid] 20 mg PO QAM #30 tablet 03/01/21 Unknown Rx Lactulose [Cephulac] 20 gm PO Q8HR 30 Days 03/01/21 Unknown Rx Lispro Insulin [HumaLOG] See Protocol SQ ACHS 30 Days 03/01/21 Unknown Rx allopurinoL [Zyloprim] 100 mg PO QDAY #30 tablet 03/01/21 Unknown Rx propranoloL [Inderal] 20 mg PO BID #60 tablet 03/01/21 Unknown Rx Active Medications: Generic Name Dose Route Start Last Admin Trade Name Freq PRN Reason Stop Dose Admin Acetaminophen 650 mg 02/18/21 22:38 03/09/21 13:15 Acetaminophen 325 Mg Tab PO 650 mg Q4H PRN Administration Pain MILD(1-3)/Fever >100.5/MOLINA Albuterol 2.5 mg 02/18/21 22:38 Albuterol 2.5 Mg/3 Ml Nebu IH Q3HRT PRN Shortness Of Breath Allopurinol 100 mg 02/20/21 10:00 03/21/21 09:57 Allopurinol 100 Mg Tab PO 100 mg QDAY LEYLA Administration Calcium Acetate 1,334 mg 02/20/21 08:30 03/21/21 09:57 Calcium Acetate 667 Mg Cap PO 1,334 mg TIDWM LEYLA Administration Dextrose 0 ml 02/18/21 23:00 02/25/21 16:56 Dextrose 50% In Water (25gm) 50 Ml Syringe IV 50 ml Q30MIN PRN Administration Hypoglycemia Protocol Diphenhydramine HCl 25 mg 02/23/21 09:10 03/01/21 10:30 Diphenhydramine 25 Mg Cap PO 25 mg BID PRN Administration Itching Famotidine 20 mg 02/19/21 10:00 03/21/21 09:57 Famotidine 20 Mg Tab PO 20 mg QAM LEYLA Administration Hydralazine HCl 10 mg 02/18/21 22:56 Hydralazine 20 Mg/1 Ml Inj IV Q6H PRN htn Sodium Chloride 100 mls @ 999 mls/hr 02/19/21 09:06 Nacl 0.9% IV OLIVIA PRN Hypotension Dextrose/Sodium Chloride 1,000 mls @ 50 mls/hr 03/12/21 15:00 03/19/21 20:31 D5/0.45ns IV 50 mls/hr DIRECT LEYLA Administration Insulin Glargine 10 units 03/09/21 22:00 03/20/21 22:44 Insulin Glargine 100 Units/Ml SUB-Q 10 units QHS LEYLA Administration Insulin Human Lispro 0 unit 03/09/21 22:00 03/21/21 09:57 Insulin Lispro 100 Unit/Ml SUB-Q 4 unit ACHS LEYLA Administration Protocol Lactulose 20 gm 03/09/21 18:00 03/21/21 06:43 Lactulose 20 Gm/30 Ml Oral Liqd PO 20 gm Q6HR LEYLA Administration Ondansetron HCl 4 mg 02/18/21 22:38 02/28/21 12:32 Ondansetron 4 Mg/2 Ml Inj IV 4 mg Q8H PRN Administration Nausea And Vomiting Polyethylene Glycol 17 gm 02/24/21 12:08 02/24/21 12:47 Polyethylene Glycol 3350 17 Gm Powder PO 17 gm QDAY PRN Administration Constipation Propranolol HCl 20 mg 02/20/21 10:00 03/21/21 09:57 Propranolol 10 Mg Tab PO 20 mg BID LEYLA Administration Rifaximin 550 mg 03/10/21 12:00 03/21/21 09:56 Rifaximin 550 Mg Tab PO 550 mg BID LEYLA Administration Sodium Chloride 10 ml 02/19/21 10:00 03/21/21 09:57 Sodium Chloride 0.9% 10 Ml Flush Syringe IV 10 ml BID LEYLA Administration Sodium Chloride 10 ml 02/18/21 22:38 Sodium Chloride 0.9% 10 Ml Flush Syringe IV PRN PRN LINE FLUSH Tramadol HCl 50 mg 02/24/21 13:20 03/16/21 21:03 Tramadol 50 Mg Tab PO 50 mg Q6H PRN Administration Pain, Moderate (4-6) Zolpidem Tartrate 5 mg 02/24/21 09:54 03/08/21 23:25 Zolpidem 5 Mg Tab PO 5 mg QHS PRN Administration Sleep
--- NOTE | 2021-03-21 12:47 | Progress Note ---
Assessment and Plan -- Hepatic encephalopathy due to hepatic cirrhosis cont lactulose, Neuro check, seizure precaution, aspiration precaution, fall precautions, continue to monitor. -- End stage renal disease Nephrology team consulted, strict I's/O, monitor urine output every shift, dialysis as per renal team, avoid nephrotoxic agents. --Metabolic Acidosis Nephrology team consulted, dialysis as per renal team. --Hyponatremia Monitor BMP, monitor fluid balance. -- Hyperammonemia Continue lactulose --Diabetes mellitus with hyperglycemia Consistent carb diet, SSI -- hyperkalemia, Improvement with dialysis --Ascitis, s/p paracentesis drained 6.2l of ascitic fluid --Sacral wound, cont wound care -- Moderate Protein Calorie Malnutrition, nutrition consulted --Noncompliance, counseled for medication compliance Subjective Date of service: 03/21/21 Principal diagnosis: Acute renal failure Interval history: 55 YO Male with ESRD on HD, Noncompliance with outpatient dialysis, Anemia, HBV, Chronic Liver Disease, Cirrhosis complicated by Esophageal Varices, HTN, Debility, DM presents to ED with confusion with diminished cognition. Patient family report the patient was "not acting like himself" and found to have worsening confusion over the past 2 days. In the ER the patient was found to have hepatic encephalopathy complicated by diminished cognition, end-stage renal disease in need of urgent dialysis, as well as uncontrolled diabetes, and acido sis. Nephrology team consulted in ED and patient was then admitted for further evaluation and Mx. I crept all over myself today. /1: Resume dialysis will adjust insulin for better coverage. Very poor prognosis considering poor medical compliance. Agree with hospice recommendation. Will obtain wound care to continue to manage. Monitor anemia as patient was pretty anemic during the last hospitalization. Required transfusion. 62: Continues to undergo dialysis no change in mental status noted. Tolerating medications. Blood sugar mildly elevated adjusted insulin yesterday when awake for the patient received a dose today and if still elevated will adjust. Again case management is working on discharge plan for this patient as he is pending placement 02/21 patient complains of right hip pain. He said he fell few weeks ago and is concerned about another fracture. He had a fracture about 8 weeks ago and had surgery. Will obtain X ray right hip. Patient pending placement. 02/22 Patient seen in Dialysis Unit. He states hip pain improved. No other complaints. Right hip X ray done yesterday report read may be healing fracture or acute fracture. Will discuss with Orthopedic Surgeon Patient pending placement 02/23 Less hip pain. Today complains of generalized itching. Will start Benadryl po prn. Orthopedic consulted to evaluate right hip. Patient pending placement 02/24 Less hip pain. Generalized itching now resolved. Orthopedic consulted to evaluate right hip. He complains of sleeplessness. Will give Ambien prn Patient pending placement 02/25 Patient requested DNR status yesterday. I discussed with him and he signed forms. He also complains of worsening abdominal distension and requested tapping, Will order paracentesis. Right hip evaluated by Dr. Trivedi and conservative management recommended. 02/26: Plan for paracentesis today. Need to set up dialysis as outpatient. manager of sustainability working on discharge planning. 02/27: Patient did not sign the consent for paracentesis yesterday so paracentesis was done today and aspirated 6.2L ascitic fluid. Patient refusing medication per RN. Getting dialysis. Patient noted slightly altered today, will place NG tube remains altered and keep refusing oral meds, order for ammonia level and will cont lactulose. 02/28: Patient appears much more calm and cooperative today. He stated that he has been refusing procedure and medication as he believes he was not in the right state of his mind. Patient acknowledges the importance of being compliant and he promises that he will take the medications as he will be given. Discharge planning per case management as patient would need outpatient dialysis center set up and personal longterm set up. 03/01/21: Patient has correction setting but according to window caser no available RN to accept the patient till Thursday. Continue supportive care. Discharge pending on placement. 03/02/21 -03/04/21: Discharge pending on placement, continue to monitor clinically. Continue current management and plan and supportive care. Patient need SNF placement. 03/05/2021; Awaiting SNF placement for discharge. Prognosis is very poor. Patient is nonresponsive. I try to reach to his son over the phone but could not get in touch. Patient is appropriate for hospice care. 03/06/2021; patient is awaiting SNF placement. Patient was alert and oriented. No confusion. Patient is stable to be discharged back to SNF. 03/07/2021; patient has hemoglobin of 6.8 this morning. A unit of blood ordered. Will monitor H&H. Nephrology is following for dialysis. 03/08/2021; patient's hemoglobin was 6.8 yesterday and transfused a unit of blood. I ordered yesterday to do posttransfusion H&H and was not done. CBC was ordered to be done this morning but was not done. COVID-19 test was done on 03/06 and positive. Nephrology is following the patient for his dialysis. Plan is to discharge him to SNF. Will follow with case management because patient is Covid positive. 03/09/2021; patient's repeat Covid test on 03/08/2021 was positive. Patient is pending for SNF Placement. Patient had hypoglycemia yesterday and patient was placed on Lantus and his sliding scale adjusted to high dose. Will monitor and adjust as needed. 03/10/2021; pending SNF placement. Covid test was positive on and . 03/11/2021; patient has hepatic encephalopathy and his ammonia level is very high, patient is currently on lactulose and rifaximin. Ammonia level is trending down. Nephrology is following for dialysis. Patient has positive Covid test last one was on 03/08, that makes placement difficult. Continue with case management. 03/12: Still awaiting placement, discussed with nursing staff to monitor mental status changes. Will check ammonia level. Continue to adjust blood sugar. Complicated by COVID POSITIVELY. Awaiting placement for the patient. Also dialysis chair time. I have discussed with case management as my understanding was that patient was to go for hospice but this plan appears to have changed possibly not clear to me at this time 03/13: Continue supportive care crush medications that can be crushed. Ammonia level is elevated but not as elevated as previously. Continue lactulose advised nursing staff that this should be given as ordered to communicate with the night team also. Unfortunately when the patient gets better he refuses his lactulose. I truly believe that we should strongly consider palliative care for this patient but nevertheless if he wants to continue dialysis and will be compliant with his medications this is definitely an option can be pursued. Aspiration precautions monitor hemoglobin and platelets. 03/14: Patient seen and examined, more awake today. Continue supportive care, patient was made DNR wade, signed the form today after confirming the patient and also the physician. Monitor for fever. AWAITING PLACEMENT. poor prognosis 03/15/21 Patient is seen and examined. Lab and medication reviewed. Patient denied any chest pain or shortness of breath. Patient is more awake alert today. Patient is getting them hemodialysis today. Continue current management. Awaiting placement. 03/16/21 patient seen and examined. Lab and medication reviewed. Patient feels better. Hemoglobin 8.2 and hematocrit 23.9. Complained of pain in the butt. No other complain. Continue current management and supportive care. Patient is waiting for placement. 03/17: Patient remains with poor prognosis refusing dietary intake. Again discussed hospice and palliative care management considering his current medical condition and declining poor prognostic factors. Discussed with nursing staff patient will continue with lactulose had refused this morning but did take it yesterday. Continue aspiration precautions. Discussed the importance of taking the medication the patient verbalized understanding 03/18: Patient undergoing HD discharge planning ongoing discussed with case management team. Covid test ordered today for placement purposes. 03/19/2021; Covid test was ordered and result is pending. Pending placement. 03/20/2021; patient's Covid test was positive again on 03/20/2021. Pending placement. 03/21/2021. Patient cooperative no acute distress at this time. Complains of loose stool diarrhea. Still awaiting placement. Unable to find hemodialysis placement Objective - Constitutional Vitals: Vital Signs - 12hr 03/21/21 03/21/21 04:42 06:42 Temperature 98.2 F Pulse Rate 89 84 Respiratory 18 18 Rate Blood Pressure 112/42 O2 Sat by Pulse 91 94 Oximetry General appearance: Present: cachectic, disheveled - EENT Eyes: PERRL, EOM intact - Neck Neck: supple, normal ROM - Respiratory Respiratory effort: normal - Cardiovascular Rhythm: regular Heart Sounds: Present: S1 & S2. Absent: gallop, rub Extremity abnormal: other (Scaphoid abdomen deconditioning) - Gastrointestinal General gastrointestinal: Present: other (Generalized weakness increased bony prominences) - Musculoskeletal Musculoskeletal: generalized weakness - Neurologic Neurologic: moves all extremities, other (Cognitive impairment) - Labs CBC & Chem 7: 03/16/21 06:43 03/16/21 06:43 Labs: Abnormal lab results 06/30/21 07/01/21 07/01/21 Range/Units 21:07 07:50 11:37 POC Glucose 271 H 247 H 305 H (70-105) mg/dL
[2021-03-21] MEDS: INSULIN GLARGINE 100 UNITS/ML SUB-Q SCH (22:07)
[2021-03-22] MEDS: LACTULOSE 20 GM/30 ML ORAL LIQD PO SCH ×4 (05:33→23:11)
[2021-03-22] MEDS: RIFAXIMIN 550 MG TAB PO SCH ×2 (09:00→22:40)
[2021-03-22] MEDS: FAMOTIDINE 20 MG TAB PO SCH (09:00)
[2021-03-22] MEDS: INSULIN LISPRO 100 UNIT/ML SUB-Q SCH ×4 (09:00→22:39)
[2021-03-22] MEDS: CALCIUM ACETATE 667 MG CAP PO SCH ×3 (09:01→17:57)
[2021-03-22] MEDS: allopurinoL 100 MG TAB PO SCH (09:01)
[2021-03-22] MEDS: PROPRANOLOL 10 MG TAB PO SCH ×2 (09:02→23:11)
--- NOTE | 2021-03-22 10:57 | Progress Note ---
Assessment and Plan -- Hepatic encephalopathy due to hepatic cirrhosis has resolved cont lactulose, Neuro check, seizure precaution, aspiration precaution, fall precautions, continue to monitor. -Diarrhea has improved. -- End stage renal disease Nephrology team consulted, strict I's/O, monitor urine output every shift, dialysis as per renal team, avoid nephrotoxic agents. Await dialysis center. --Metabolic Acidosis Nephrology team consulted, dialysis as per renal team. --Hyponatremia Monitor BMP, monitor fluid balance. -- Hyperammonemia Continue lactulose --Diabetes mellitus with hyperglycemia Consistent carb diet, SSI -- hyperkalemia, Improvement with dialysis --Ascitis, s/p paracentesis drained 6.2l of ascitic fluid --Sacral wound, cont wound care -- Moderate Protein Calorie Malnutrition, nutrition consulted --Noncompliance, counseled for medication compliance Subjective Date of service: 03/22/21 Principal diagnosis: Acute renal failure Interval history: 55 YO Male with ESRD on HD, Noncompliance with outpatient dialysis, Anemia, HBV, Chronic Liver Disease, Cirrhosis complicated by Esophageal Varices, HTN, Debility, DM presents to ED with confusion with diminished cognition. Patient family report the patient was "not acting like himself" and found to have worsening confusion over the past 2 days. In the ER the patient was found to h ave hepatic encephalopathy complicated by diminished cognition, end-stage renal disease in need of urgent dialysis, as well as uncontrolled diabetes, and acidosis. Nephrology team consulted in ED and patient was then admitted for further evaluation and Mx. I crept all over myself today. /1: Resume dialysis will adjust insulin for better coverage. Very poor prognosis considering poor medical compliance. Agree with hospice recommendation. Will obtain wound care to continue to manage. Monitor anemia as patient was pretty anemic during the last hospitalization. Required transfusion. 6: Continues to undergo dialysis no change in mental status noted. Tolerating medications. Blood sugar mildly elevated adjusted insulin yesterday when awake for the patient received a dose today and if still elevated will adjust. Again case management is working on discharge plan for this patient as he is pending placement 02/21 patient complains of right hip pain. He said he fell few weeks ago and is concerned about another fracture. He had a fracture about 8 weeks ago and had surgery. Will obtain X ray right hip. Patient pending placement. 02/22 Patient seen in Dialysis Unit. He states hip pain improved. No other complaints. Right hip X ray done yesterday report read may be healing fracture o r acute fracture. Will discuss with Orthopedic Surgeon Patient pending placement 02/23 Less hip pain. Today complains of generalized itching. Will start Benadryl po prn. Orthopedic consulted to evaluate right hip. Patient pending placement 02/24 Less hip pain. Generalized itching now resolved. Orthopedic consulted to evaluate right hip. He complains of sleeplessness. Will give Ambien prn Patient pending placement 02/25 Patient requested DNR status yesterday. I discussed with him and he signed forms. He also complains of worsening abdominal distension and requested tapping, Will order paracentesis. Right hip evaluated by Dr. Trivedi and conservative management recommended. 02/26: Plan for paracentesis today. Need to set up dialysis as outpatient. senior tax manager working on discharge planning. 02/27: Patient did not sign the consent for paracentesis yesterday so paracentesis was done today and aspirated 6.2L ascitic fluid. Patient refusing medication per RN. Getting dialysis. Patient noted slightly altered today, will place NG tube remains altered and keep refusing oral meds, order for ammonia level and will cont lactulose. 02/28: Patient appears much more calm and cooperative today. He stated that he has been refusing procedure and medication as he believes he was not in the right state of his mind. Patient acknowledges the importance of being compliant and he promises that he will take the medications as he will be given. Discharge planning per case management as patient would need outpatient dialysis center set up and personal longterm set up. 03/01/21: Patient has alf setting but according to lead case manager no available RN to accept the patient till Thursday. Continue supportive care. Discharge pending on placement. 03/02/21 -03/04/21: Discharge pending on placement, continue to monitor clinically. Continue current management and plan and supportive care. Patient need SNF placement. 03/05/2021; Awaiting SNF placement for discharge. Prognosis is very poor. Patient is nonresponsive. I try to reach to his son over the phone but could not get in touch. Patient is appropriate for hospice care. 03/06/2021; patient is awaiting SNF placement. Patient was alert and oriented. No confusion. Patient is stable to be discharged back to SNF. 03/07/2021; patient has hemoglobin of 6.8 this morning. A unit of blood ordered. Will monitor H&H. Nephrology is following for dialysis. 03/08/2021; patient's hemoglobin was 6.8 yesterday and transfused a unit of blood. I ordered yesterday to do posttransfusion H&H and was not done. CBC was ordered to be done this morning but was not done. COVID-19 test was done on 03/06 and positive. Nephrology is following the patient for his dialysis. Plan is to discharge him to SNF. Will follow with case management because patient is Covid positive. 03/09/2021; patient's repeat Covid test on 03/08/2021 was positive. Patient is pending for SNF Placement. Patient had hypoglycemia yesterday and patient was placed on Lantus and his sliding scale adjusted to high dose. Will monitor and adjust as needed. 03/10/2021; pending SNF placement. Covid test was positive on and . 03/11/2021; patient has hepatic encephalopathy and his ammonia level is very high, patient is currently on lactulose and rifaximin. Ammonia level is trending down. Nephrology is following for dialysis. Patient has positive Covid test last one was on 03/08, that makes placement difficult. Continue with case management. 03/12: Still awaiting placement, discussed with nursing staff to monitor mental status changes. Will check ammonia level. Continue to adjust blood sugar. Complicated by COVID POSITIVELY. Awaiting placement for the patient. Also dialysis chair time. I have discussed with case management as my understanding was that patient was to go for hospice but this plan appears to have changed possibly not clear to me at this time 03/13: Continue supportive care crush medications that can be crushed. Ammonia level is elevated but not as elevated as previously. Continue lactulose advised nursing staff that this should be given as ordered to communicate with the night team also. Unfortunately when the patient gets better he refuses his lactulose. I truly believe that we should strongly consider palliative care for this patient but nevertheless if he wants to continue dialysis and will be compliant with his medications this is definitely an option can be pursued. Aspiration precautions monitor hemoglobin and platelets. 03/14: Patient seen and examined, more awake today. Continue supportive care, pa tient was made DNR ealier, signed the form today after confirming the patient and also the physician. Monitor for fever. AWAITING PLACEMENT. poor prognosis 03/15/21 Patient is seen and examined. Lab and medication reviewed. Patient denied any chest pain or shortness of breath. Patient is more awake alert today. Patient is getting them hemodialysis today. Continue current management. Awaiting placement. 03/16/21 patient seen and examined. Lab and medication reviewed. Patient feel s better. Hemoglobin 8.2 and hematocrit 23.9. Complained of pain in the butt. No other complain. Continue current management and supportive care. Patient is waiting for placement. 03/17: Patient remains with poor prognosis refusing dietary intake. Again discussed hospice and palliative care management considering his current medical condition and declining poor prognostic factors. Discussed with nursing staff patient will continue with lactulose had refused this morning but did take it yesterday. Continue aspiration precautions. Discussed the importance of taking the medication the patient verbalized understanding 03/18: Patient undergoing HD discharge planning ongoing discussed with case management team. Covid test ordered today for placement purposes. 03/19/2021; Covid test was ordered and result is pending. Pending placement. 03/20/2021; patient's Covid test was positive again on 03/20/2021. Pending placement. 03/21/2021. Patient cooperative no acute distress at this time. Complains of loose stool diarrhea. Still awaiting placement. Unable to find hemodialysis placement 03/22/2021. Patient last Covid test was positive however initial test was greater than 14 days ago. Patient is no longer infected. Unable to find hemodialysis line at present. Patient being evaluated for [facility]. Objective - Constitutional Vitals: Vital Signs - 12hr 03/22/21 03:51 Temperature 98.2 F Pulse Rate 75 Respiratory 18 Rate Blood Pressure 142/41 O2 Sat by Pulse 96 Oximetry General appearance: Present: no acute distress, well-nourished - EENT Eyes: PERRL, EOM intact ENT: hearing intact, clear oral mucosa Ears: bilateral: normal - Neck Neck: supple, normal ROM - Respiratory Respiratory effort: normal Respiratory: bilateral: CTA - Breasts Breasts: normal - Cardiovascular Rhythm: regular Heart Sounds: Present: S1 & S2. Absent: gallop, rub Extremities: pulses intact, No edema, normal color, Full ROM - Gastrointestinal General gastrointestinal: Present: soft, non-tender, non-distended, normal bowel sounds - Genitourinary Male genitourinary: normal - Integumentary Integumentary: clear, warm, dry - Musculoskeletal Musculoskeletal: 1, strength equal bilaterally - Neurologic Neurologic: moves all extremities - Psychiatric Psychiatric: memory intact, appropriate mood/affect, intact judgment & insight - Labs CBC & Chem 7: 03/16/21 06:43 03/16/21 06:43 Labs: Abnormal lab results 03/21/21 03/21/21 03/21/21 Range/Units 11:37 17:06 21:30 POC Glucose 305 H 295 H 343 H (70-105) mg/dL 03/22/21 Range/Units 07:32 POC Glucose 198 H (70-105) mg/dL
--- NOTE | 2021-03-22 13:20 | Progress Note ---
Assessment and Plan 1. ESRD: Patient is on maintenance hemodialysis three times a week, MWF schedule. Meds dosage based on GFR. Missed HD 02/18. Hemodialysis: 02/19, 02/20, 02/22, 02/25, 02/27, 03/01, 03/04, 03/06, 03/08, 03/11, 03/13, 03/15, 03/18, 03/20. 2. FEN: Hyperkalemia, improved. Monitor lytes and volume status. 3. Anemia, POA: 2/2 ESRD and Liver disease. Epogen with HD. PRBC as needed. 4. Cirrhosis with h/o hepatic encephalopathy: Lactulose and Rifaximin. Monitor. 5. DM type 2: SSI. Monitor. 6. Thrombocytopenia, POA. 7. Hypertension: Monitor BP. Adjust meds as appropriate. Await placement. Delay in placement due to Covid test positive. Subjective: Patient was seen and examined at the bedside. General Appearance: General appearance: well-developed, appears stated age, not in distress HEENT: ATNC, pupils equal Neck: trachea midline Respiratory: ctab Heart: regular, S1S2, no murmur Abdomen: soft, bowel sounds heard, slightly distended, not tender Integumentary: no rash, warm and dry Neurologic: alert, conversing, moving extremities Ext: no edema, R BKA Hemodialysis access: R arm AVF Subjective Date of service: 03/22/21 Principal diagnosis: Acute renal failure Objective - Vital Signs Vital signs: Vital Signs - 12hr 03/22/21 03/22/21 03/22/21 03:51 08:50 09:00 Temperature 98.2 F 97.9 F Pulse Rate 75 73 75 Respiratory 18 18 Rate Blood Pressure 142/41 124/60 107/48 O2 Sat by Pulse 96 Oximetry 03/22/21 03/22/21 03/22/21 09:15 09:30 09:45 Temperature Pulse Rate 71 72 81 Respiratory Rate Blood Pressure 105/54 107/55 96/52 O2 Sat by Pulse Oximetry 03/22/21 03/22/21 03/22/21 10:00 10:15 10:30 Temperature Pulse Rate 68 75 71 Respiratory Rate Blood Pressure 102/53 112/49 90/49 O2 Sat by Pulse Oximetry 03/22/21 03/22/21 03/22/21 10:45 11:00 11:15 Temperature Pulse Rate 72 69 73 Respiratory Rate Blood Pressure 97/52 83/44 99/43 O2 Sat by Pulse Oximetry 03/22/21 03/22/21 03/22/21 11:30 11:45 12:00 Temperature Pulse Rate 67 73 70 Respiratory Rate Blood Pressure 72/43 80/42 110/51 O2 Sat by Pulse Oximetry 03/22/21 12:15 Temperature 97.9 F Pulse Rate 70 Respiratory 18 Rate Blood Pressure 120/57 O2 Sat by Pulse Oximetry - Lab 03/24/21 06:37 03/24/21 06:37 Most recent lab results Calcium 7.8 mg/dL (8.4-10.2) L 03/16/21 06:43 Magnesium 2.10 mg/dL (1.7-2.3) 02/17/21 02:24 Medications & Allergies - Medications Allergies/Adverse Reactions: Allergies No Known Allergies Allergy (Verified 02/16/21 18:26) Home Medications: Home Medications Medication Instructions Recorded Confirmed Last Taken Type Calcium Acetate [Phoslo] 1,334 mg PO TIDWM #90 capsule 03/01/21 Unknown Rx Famotidine [Pepcid] 20 mg PO QAM #30 tablet 03/01/21 Unknown Rx Lactulose [Cephulac] 20 gm PO Q8HR 30 Days 03/01/21 Unknown Rx Lispro Insulin [HumaLOG] See Protocol SQ ACHS 30 Days 03/01/21 Unknown Rx allopurinoL [Zyloprim] 100 mg PO QDAY #30 tablet 03/01/21 Unknown Rx propranoloL [Inderal] 20 mg PO BID #60 tablet 03/01/21 Unknown Rx Active Medications: Generic Name Dose Route Start Last Admin Trade Name Freq PRN Reason Stop Dose Admin Acetaminophen 650 mg 02/18/21 22:38 03/09/21 13:15 Acetaminophen 325 Mg Tab PO 650 mg Q4H PRN Administration Pain MILD(1-3)/Fever >100.5/MOLINA Albuterol 2.5 mg 02/18/21 22:38 Albuterol 2.5 Mg/3 Ml Nebu IH Q3HRT PRN Shortness Of Breath Allopurinol 100 mg 02/20/21 10:00 03/22/21 09:01 Allopurinol 100 Mg Tab PO 100 mg QDAY LEYLA Administration Calcium Acetate 1,334 mg 02/20/21 08:30 03/22/21 12:04 Calcium Acetate 667 Mg Cap PO Not Given TIDWM LEYLA Dextrose 0 ml 02/18/21 23:00 02/25/21 16:56 Dextrose 50% In Water (25gm) 50 Ml Syringe IV 50 ml Q30MIN PRN Administration Hypoglycemia Protocol Diphenhydramine HCl 25 mg 02/23/21 09:10 03/01/21 10:30 Diphenhydramine 25 Mg Cap PO 25 mg BID PRN Administration Itching Famotidine 20 mg 02/19/21 10:00 03/22/21 09:00 Famotidine 20 Mg Tab PO 20 mg QAM LEYLA Administration Hydralazine HCl 10 mg 02/18/21 22:56 Hydralazine 20 Mg/1 Ml Inj IV Q6H PRN htn Sodium Chloride 100 mls @ 999 mls/hr 02/19/21 09:06 Nacl 0.9% IV OLIVIA PRN Hypotension Dextrose/Sodium Chloride 1,000 mls @ 50 mls/hr 03/12/21 15:00 03/19/21 20:31 D5/0.45ns IV 50 mls/hr DIRECT LEYLA Administration Insulin Glargine 10 units 03/09/21 22:00 03/21/21 22:07 Insulin Glargine 100 Units/Ml SUB-Q 10 units QHS [facility] Administration Insulin Human Lispro 0 unit 03/09/21 22:00 03/22/21 12:04 Insulin Lispro 100 Unit/Ml SUB-Q Not Given ACHS [facility] Protocol Lactulose 20 gm 03/09/21 18:00 03/22/21 12:04 Lactulose 20 Gm/30 Ml Oral Liqd PO Not Given Q6HR [facility] Ondansetron HCl 4 mg 02/18/21 22:38 02/28/21 12:32 Ondansetron 4 Mg/2 Ml Inj IV 4 mg Q8H PRN Administration Nausea And Vomiting Polyethylene Glycol 17 gm 02/24/21 12:08 02/24/21 12:47 Polyethylene Glycol 3350 17 Gm Powder PO 17 gm QDAY PRN Administration Constipation Propranolol HCl 20 mg 02/20/21 10:00 03/22/21 09:02 Propranolol 10 Mg Tab PO 20 mg BID LEYLA Administration Rifaximin 550 mg 03/10/21 12:00 03/22/21 09:00 Rifaximin 550 Mg Tab PO 550 mg BID LEYLA Administration Sodium Chloride 10 ml 02/19/21 10:00 03/22/21 09:01 Sodium Chloride 0.9% 10 Ml Flush Syringe IV 10 ml BID LEYLA Administration Sodium Chloride 10 ml 02/18/21 22:38 Sodium Chloride 0.9% 10 Ml Flush Syringe IV PRN PRN LINE FLUSH Tramadol HCl 50 mg 02/24/21 13:20 03/16/21 21:03 Tramadol 50 Mg Tab PO 50 mg Q6H PRN Administration Pain, Moderate (4-6) Zolpidem Tartrate 5 mg 02/24/21 09:54 03/08/21 23:25 Zolpidem 5 Mg Tab PO 5 mg QHS PRN Administration Sleep
[2021-03-22] MEDS: INSULIN GLARGINE 100 UNITS/ML SUB-Q SCH (22:40)
[2021-03-23] MEDS: LACTULOSE 20 GM/30 ML ORAL LIQD PO SCH ×4 (06:40→23:13)
--- NOTE | 2021-03-23 07:21 | Progress Note ---
Assessment and Plan -- Hepatic encephalopathy due to hepatic cirrhosis has resolved cont lactulose, Neuro check, seizure precaution, aspiration precaution, fall precautions, continue to monitor. -Diarrhea has improved. -- End stage renal disease Nephrology team consulted, strict I's/O, monitor urine output every shift, dialysis as per renal team, avoid nephrotoxic agents. Await dialysis center. --Metabolic Acidosis Nephrology team consulted, dialysis as per renal team. --Hyponatremia Monitor BMP, monitor fluid balance. -- Hyperammonemia Continue lactulose --Diabetes mellitus with hyperglycemia Consistent carb diet, SSI -- hyperkalemia, Improvement with dialysis --Ascitis, s/p paracentesis drained 6.2l of ascitic fluid --Sacral wound, cont wound care -- Moderate Protein Calorie Malnutrition, nutrition consulted --Noncompliance, counseled for medication compliance Subjective Date of service: 03/23/21 Principal diagnosis: Acute renal failure Interval history: 55 YO Male with ESRD on HD, Noncompliance with outpatient dialysis, Anemia, HBV, Chronic Liver Disease, Cirrhosis complicated by Esophageal Varices, HTN, Debility, DM presents to ED with confusion with diminished cognition. Patient family report the patient was "not acting like himself" and found to have worsening confusion over the past 2 days. In the ER the patient was found to h ave hepatic encephalopathy complicated by diminished cognition, end-stage renal disease in need of urgent dialysis, as well as uncontrolled diabetes, and acidosis. Nephrology team consulted in ED and patient was then admitted for further evaluation and Mx. I crept all over myself today. /1: Resume dialysis will adjust insulin for better coverage. Very poor prognosis considering poor medical compliance. Agree with hospice recommendation. Will obtain wound care to continue to manage. Monitor anemia as patient was pretty anemic during the last hospitalization. Required transfusion. 6: Continues to undergo dialysis no change in mental status noted. Tolerating medications. Blood sugar mildly elevated adjusted insulin yesterday when awake for the patient received a dose today and if still elevated will adjust. Again case management is working on discharge plan for this patient as he is pending placement 02/21 patient complains of right hip pain. He said he fell few weeks ago and is concerned about another fracture. He had a fracture about 8 weeks ago and had surgery. Will obtain X ray right hip. Patient pending placement. 02/22 Patient seen in Dialysis Unit. He states hip pain improved. No other complaints. Right hip X ray done yesterday report read may be healing fracture o r acute fracture. Will discuss with Orthopedic Surgeon Patient pending placement 02/23 Less hip pain. Today complains of generalized itching. Will start Benadryl po prn. Orthopedic consulted to evaluate right hip. Patient pending placement 02/24 Less hip pain. Generalized itching now resolved. Orthopedic consulted to evaluate right hip. He complains of sleeplessness. Will give Ambien prn Patient pending placement 02/25 Patient requested DNR status yesterday. I discussed with him and he signed forms. He also complains of worsening abdominal distension and requested tapping, Will order paracentesis. Right hip evaluated by Dr. Trivedi and conservative management recommended. 02/26: Plan for paracentesis today. Need to set up dialysis as outpatient. diagnostic imaging manager working on discharge planning. 02/27: Patient did not sign the consent for paracentesis yesterday so paracentesis was done today and aspirated 6.2L ascitic fluid. Patient refusing medication per RN. Getting dialysis. Patient noted slightly altered today, will place NG tube remains altered and keep refusing oral meds, order for ammonia level and will cont lactulose. 02/28: Patient appears much more calm and cooperative today. He stated that he has been refusing procedure and medication as he believes he was not in the right state of his mind. Patient acknowledges the importance of being compliant and he promises that he will take the medications as he will be given. Discharge planning per case management as patient would need outpatient dialysis center set up and personal [facility] set up. 03/01/21: Patient has [facility] but according to nurse case manager no available RN to accept the patient till Thursday. Continue supportive care. Discharge pending on placement. 03/02/21 -03/04/21: Discharge pending on placement, continue to monitor clinically. Continue current management and plan and supportive care. Patient need SNF placement. 03/05/2021; Awaiting SNF placement for discharge. Prognosis is very poor. Patient is nonresponsive. I try to reach to his son over the phone but could not get in touch. Patient is appropriate for hospice care. 03/06/2021; patient is awaiting SNF placement. Patient was alert and oriented. No confusion. Patient is stable to be discharged back to SNF. 03/07/2021; patient has hemoglobin of 6.8 this morning. A unit of blood ordered. Will monitor H&H. Nephrology is following for dialysis. 03/08/2021; patient's hemoglobin was 6.8 yesterday and transfused a unit of blood. I ordered yesterday to do posttransfusion H&H and was not done. CBC was ordered to be done this morning but was not done. COVID-19 test was done on 03/06 and positive. Nephrology is following the patient for his dialysis. Plan is to discharge him to SNF. Will follow with case management because patient is Covid positive. 03/09/2021; patient's repeat Covid test on 03/08/2021 was positive. Patient is pending for SNF Placement. Patient had hypoglycemia yesterday and patient was placed on Lantus and his sliding scale adjusted to high dose. Will monitor and adjust as needed. 03/10/2021; pending SNF placement. Covid test was positive on and . 03/11/2021; patient has hepatic encephalopathy and his ammonia level is very high, patient is currently on lactulose and rifaximin. Ammonia level is trending down. Nephrology is following for dialysis. Patient has positive Covid test last one was on 03/08, that makes placement difficult. Continue with case management. 03/12: Still awaiting placement, discussed with nursing staff to monitor mental status changes. Will check ammonia level. Continue to adjust blood sugar. Complicated by COVID POSITIVELY. Awaiting placement for the patient. Also dialysis chair time. I have discussed with case management as my understanding was that patient was to go for hospice but this plan appears to have changed possibly not clear to me at this time 03/13: Continue supportive care crush medications that can be crushed. Ammonia level is elevated but not as elevated as previously. Continue lactulose advised nursing staff that this should be given as ordered to communicate with the night team also. Unfortunately when the patient gets better he refuses his lactulose. I truly believe that we should strongly consider palliative care for this patient but nevertheless if he wants to continue dialysis and will be compliant with his medications this is definitely an option can be pursued. Aspiration precautions monitor hemoglobin and platelets. 03/14: Patient seen and examined, more awake today. Continue supportive care, pa tient was made DNR ealier, signed the form today after confirming the patient and also the physician. Monitor for fever. AWAITING PLACEMENT. poor prognosis 03/15/21 Patient is seen and examined. Lab and medication reviewed. Patient denied any chest pain or shortness of breath. Patient is more awake alert today. Patient is getting them hemodialysis today. Continue current management. Awaiting placement. 03/16/21 patient seen and examined. Lab and medication reviewed. Patient feel s better. Hemoglobin 8.2 and hematocrit 23.9. Complained of pain in the butt. No other complain. Continue current management and supportive care. Patient is waiting for placement. 03/17: Patient remains with poor prognosis refusing dietary intake. Again discussed hospice and palliative care management considering his current medical condition and declining poor prognostic factors. Discussed with nursing staff patient will continue with lactulose had refused this morning but did take it yesterday. Continue aspiration precautions. Discussed the importance of taking the medication the patient verbalized understanding 03/18: Patient undergoing HD discharge planning ongoing discussed with case management team. Covid test ordered today for placement purposes. 03/19/2021; Covid test was ordered and result is pending. Pending placement. 03/20/2021; patient's Covid test was positive again on 03/20/2021. Pending placement. 03/21/2021. Patient cooperative no acute distress at this time. Complains of loose stool diarrhea. Still awaiting placement. Unable to find hemodialysis placement 03/22/2021. Patient last Covid test was positive however initial test was greater than 14 days ago. Patient is no longer infected. Unable to find hemodialysis line at present. Patient being evaluated for [facility]. Objective - Constitutional Vitals: Vital Signs - 12hr 03/22/21 03/22/21 03/23/21 21:38 23:15 05:07 Temperature 98.4 F 98.4 F Pulse Rate 73 72 77 Respiratory 16 18 Rate Blood Pressure 88/33 96/46 Blood Pressure 110/45 [Left] O2 Sat by Pulse 97 95 Oximetry - Labs CBC & Chem 7: 03/16/21 06:43 03/16/21 06:43 Labs: Abnormal lab results 03/22/21 03/22/21 03/22/21 Range/Units 07:32 16:31 21:35 POC Glucose 198 H 217 H 225 H (70-105) mg/dL 03/23/21 Range/Units 07:15 POC Glucose 275 H (70-105) mg/dL
[2021-03-23] MEDS: RIFAXIMIN 550 MG TAB PO SCH ×2 (09:51→23:13)
[2021-03-23] MEDS: CALCIUM ACETATE 667 MG CAP PO SCH ×3 (09:51→16:57)
[2021-03-23] MEDS: INSULIN LISPRO 100 UNIT/ML SUB-Q SCH ×4 (09:51→23:12)
[2021-03-23] MEDS: allopurinoL 100 MG TAB PO SCH (09:52)
[2021-03-23] MEDS: FAMOTIDINE 20 MG TAB PO SCH (09:52)
[2021-03-23] MEDS: PROPRANOLOL 10 MG TAB PO SCH ×2 (09:53→23:13)
--- NOTE | 2021-03-23 10:14 | Progress Note ---
Assessment and Plan -- Hepatic encephalopathy due to hepatic cirrhosis has resolved cont lactulose, Neuro check, seizure precaution, aspiration precaution, fall precautions, continue to monitor. -Diarrhea resolved now secondary to lactulose. Patient is alert no encephalopathy. -- End stage renal disease Nephrology team consulted, strict I's/O, monitor urine output every shift, dialysis as per renal team, avoid nephrotoxic agents. Await dialysis center. We will dialyze as indicated. --Metabolic Acidosis Nephrology team consulted, dialysis as per renal team. --Hyponatremia Monitor BMP, monitor fluid balance.-Does not require to be checked today we will check every other day now. -- Hyperammonemia Continue lactulose --Diabetes mellitus with hyperglycemia Consistent carb diet, SSI -- hyperkalemia, Improvement with dialysis --Ascitis, s/p paracentesis drained 6.2l of ascitic fluid --Sacral wound, cont wound care -- Moderate Protein Calorie Malnutrition, nutrition consulted --Noncompliance, counseled for medication compliance Subjective Date of service: 03/23/21 Principal diagnosis: Acute renal failure Interval history: 55 YO Male with ESRD on HD, Noncompliance with outpatient dialysis, Anemia, HBV, Chronic Liver Disease, Cirrhosis complicated by Esophageal Varices, HTN, Debility, DM presents to ED with confusion with diminished cognition. Patient family report the patient was "not acting like himself" and found to have worsening confusion over the past 2 days. In the ER the patient was found to have hepatic encephalopathy complicated by diminished cognition, end-stage renal disease in need of urgent dialysis, as well as uncontrolled diabetes, and acidosis. Nephrology team consulted in ED and patient was then admitted for further evaluation and Mx. I crept all over myself today. /1: Resume dialysis will adjust insulin for better coverage. Very poor prognosis considering poor medical compliance. Agree with hospice recomm endation. Will obtain wound care to continue to manage. Monitor anemia as patient was pretty anemic during the last hospitalization. Required transfusion. 02/20: Continues to undergo dialysis no change in mental status noted. Tolerating medications. Blood sugar mildly elevated adjusted insulin yesterday when awake for the patient received a dose today and if still elevated will adjust. Again case management is working on discharge plan for this patient as he is pending placement 02/21 patient complains of right hip pain. He said he fell few weeks ago and is concerned about another fracture. He had a fracture about 8 weeks ago and had surgery. Will obtain X ray right hip. Patient pending placement. 02/22 Patient seen in Dialysis Unit. He states hip pain improved. No other complaints. Right hip X ray done yesterday report read may be healing fracture or acute fracture. Will discuss with Orthopedic Surgeon Patient pending placement 02/23 Less hip pain. Today complains of generalized itching. Will start Benadryl po prn. Orthopedic consulted to evaluate right hip. Patient pending placement 02/24 Less hip pain. Generalized itching now resolved. Orthopedic consulted to evaluate right hip. He complains of sleeplessness. Will give Ambien prn Patient pending placement 02/25 Patient requested DNR status yesterday. I discussed with him and he signed forms. He also complains of worsening abdominal distension and requested tapping, Will order paracentesis. Right hip evaluated by Dr. Trivedi and conservative management recommended. 02/26: Plan for paracentesis today. Need to set up dialysis as outpatient. regional business manager working on discharge planning. 02/27: Patient did not sign the consent for paracentesis yesterday so paracentesis was done today and aspirated 6.2L ascitic fluid. Patient refusing medication per RN. Getting dialysis. Patient noted slightly altered today, will place NG tube remains altered and keep refusing oral meds, order for ammonia level and will cont lactulose. 02/28: Patient appears much more calm and cooperative today. He stated that he has been refusing procedure and medication as he believes he was not in the right state of his mind. Patient acknowledges the importance of being compliant and he promises that he will take the medications as he will be given. Discharge planning per case management as patient would need outpatient dialysis center set up and personal skilled nursing set up. 03/01/21: Patient has group home setting but according to patient case manager no available RN to accept the patient till Thursday. Continue supportive care. Discharge pending on placement. 03/02/21 -03/04/21: Discharge pending on placement, continue to monitor clinicall y. Continue current management and plan and supportive care. Patient need SNF placement. 03/05/2021; Awaiting SNF placement for discharge. Prognosis is very poor. Patient is nonresponsive. I try to reach to his son over the phone but could not get in touch. Patient is appropriate for hospice care. 03/06/2021; patient is awaiting SNF placement. Patient was alert and oriented. No confusion. Patient is stable to be discharged back to SNF. 03/07/2021; patient has hemoglobin of 6.8 this morning. A unit of blood ordered. Will monitor H&H. Nephrology is following for dialysis. 03/08/2021; patient's hemoglobin was 6.8 yesterday and transfused a unit of blood. I ordered yesterday to do posttransfusion H&H and was not done. CBC was ordered to be done this morning but was not done. COVID-19 test was done on 03/06 and positive. Nephrology is following the patient for his dialysis. Plan is to discharge him to SNF. Will follow with case management because patient is Covid positive. 03/09/2021; patient's repeat Covid test on 03/08/2021 was positive. Patient is pending for SNF Placement. Patient had hypoglycemia yesterday and patient was placed on Lantus and his sliding scale adjusted to high dose. Will monitor and adjust as needed. 03/10/2021; pending SNF placement. Covid test was positive on and . 03/11/2021; patient has hepatic encephalopathy and his ammonia level is very high, patient is currently on lactulose and rifaximin. Ammonia level is trending down. Nephrology is following for dialysis. Patient has positive Covid test last one was on 03/08, that makes placement difficult. Continue with case management. 03/12: Still awaiting placement, discussed with nursing staff to monitor mental status changes. Will check ammonia level. Continue to adjust blood sugar. Complicated by COVID POSITIVELY. Awaiting placement for the patient. Also dialysis chair time. I have discussed with case management as my understanding was that patient was to go for hospice but this plan appears to have changed possibly not clear to me at this time 03/13: Continue supportive care crush medications that can be crushed. Ammonia level is elevated but not as elevated as previously. Continue lactulose advised nursing staff that this should be given as ordered to communicate with the night team also. Unfortunately when the patient gets better he refuses his lactulose. I truly believe that we should strongly consider palliative care for this patient but nevertheless if he wants to continue dialysis and will be compliant with his medications this is definitely an option can be pursued. Aspiration precautions monitor hemoglobin and platelets. 03/14: Patient seen and examined, more awake today. Continue supportive care, patient was made DNR wade, signed the form today after confirming the patient and also the physician. Monitor for fever. AWAITING PLACEMENT. poor prognosis 03/15/21 Patient is seen and examined. Lab and medication reviewed. Patient denied any chest pain or shortness of breath. Patient is more awake alert today. Patient is getting them hemodialysis today. Continue current management. Awaiting placement. 03/16/21 patient seen and examined. Lab and medication reviewed. Patient feels better. Hemoglobin 8.2 and hematocrit 23.9. Complained of pain in the butt. No other complain. Continue current management and supportive care. Patient is waiting for placement. 03/17: Patient remains with poor prognosis refusing dietary intake. Again discussed hospice and palliative care management considering his current medical condition and declining poor prognostic factors. Discussed with nursing staff patient will continue with lactulose had refused this morning but did take it yesterday. Continue aspiration precautions. Discussed the importance of taking the medication the patient verbalized understanding 03/18: Patient undergoing HD discharge planning ongoing discussed with case management team. Covid test ordered today for placement purposes. 03/19/2021; Covid test was ordered and result is pending. Pending placement. 03/20/2021; patient's Covid test was positive again on 03/20/2021. Pending placement. 03/21/2021. Patient cooperative no acute distress at this time. Complains of loose stool diarrhea. Still awaiting placement. Unable to find hemodialysis placement 03/22/2021. Patient last Covid test was positive however initial test was greater than 14 days ago. Patient is no longer infected. Unable to find hemodialysis line at present. Patient being evaluated for [facility]. 03/23/2021. Patient continues to state he feels good much better at this time. Resting comfortably. No distress noted. Still awaiting hemodialysis center. Objective - Constitutional Vitals: Vital Signs - 12hr 03/22/21 03/23/21 23:15 05:07 Temperature 98.4 F Pulse Rate 72 77 Respiratory 18 Rate Blood Pressure 96/46 Blood Pressure 110/45 [Left] O2 Sat by Pulse 95 Oximetry General appearance: Present: cachectic, other (Thin temporal wasting.) - EENT Eyes: PERRL, EOM intact ENT: hearing intact, clear oral mucosa - Neck Neck: supple - Respiratory Respiratory effort: normal - Cardiovascular Rhythm: regular Heart Sounds: Present: S1 & S2. Absent: gallop, rub Extremities: pulses intact, No edema, normal color, Full ROM - Gastrointestinal General gastrointestinal: Present: normal bowel sounds, other (Scaphoid abdomen) - Musculoskeletal Musculoskeletal: generalized weakness - Neurologic Neurologic: moves all extremities - Labs CBC & Chem 7: 03/16/21 06:43 03/16/21 06:43 Labs: Abnormal lab results 03/22/21 03/22/21 03/23/21 Range/Units 16:31 21:35 07:15 POC Glucose 217 H 225 H 275 H (70-105) mg/dL
[2021-03-23] MEDS: INSULIN GLARGINE 100 UNITS/ML SUB-Q SCH ×2 (12:44→23:13)
[2021-03-24] MEDS: LACTULOSE 20 GM/30 ML ORAL LIQD PO SCH ×3 (06:40→19:32)
[2021-03-24 07:32] LABS: Basophils % (Auto) 0.9 % (0.0-1.8); Eosinophils # (Auto) 0.1 K/mm3 (0.0-0.4); Eosinophils % (Auto) 1.7 % (0.0-4.3); Hematocrit 22.6 % (35.5-45.6); Hemoglobin 7.8 gm/dl (11.8-15.2); Lymphocytes # (Auto) 0.6 K/mm3 (1.2-5.4); Lymphocytes % (Auto) 13.3 % (13.4-35.0); Mean Corpuscular HGB Conc 35 % (32-34); Mean Corpuscular Volume 90 fl (84-94); Monocytes # (Auto) 0.5 K/mm3 (0.0-0.8); Monocytes % (Auto) 10.9 % (0.0-7.3); Platelet Count 147 K/mm3 (140-440); Red Blood Count 2.53 M/mm3 (3.65-5.03); Red Cell Distribution Width 15.2 % (13.2-15.2)
[2021-03-24 07:49] LABS: Calcium 8.4 mg/dL (8.4-10.2)
--- NOTE | 2021-03-24 08:04 | Progress Note ---
Assessment and Plan -- Hepatic encephalopathy -Patient alert and oriented x3. due to hepatic cirrhosis has resolved cont lactulose, Neuro check, seizure precaution, aspiration precaution, fall precautions, continue to monitor. -Diarrhea resolved was secondary to lactulose. Patient is alert no encephalopathy. -- End stage renal disease Nephrology team consulted, strict I's/O, monitor urine output every shift, dialysis as per renal team, avoid nephrotoxic agents. Await dialysis center. Still no dialysis center. We will dialyze as indicated. --Metabolic Acidosis Nephrology team consulted, dialysis as per renal team. --Hyponatremia Monitor BMP, monitor fluid balance.-Does not require to be checked today we will check every other day now. -- Hyperammonemia Continue lactulose --Diabetes mellitus with hyperglycemia Consistent carb diet, SSI -- hyperkalemia, Improvement with dialysis --Ascitis, s/p paracentesis drained 6.2l of ascitic fluid -no further ascites at this time. --Sacral wound, pain control continue local wound care. -- Moderate Protein Calorie Malnutrition, nutrition consulted --Noncompliance, counseled for medication compliance --Depression discussed about depression and initiation of Zoloft Subjective Date of service: 03/24/21 Principal diagnosis: Acute renal failure Interval history: 55 YO Male with ESRD on HD, Noncompliance with outpatient dialysis, Anemia, HBV, Chronic Liver Disease, Cirrhosis complicated by Esophageal Varices, HTN, Debility, DM presents to ED with confusion with diminished cognition. Patient family report the patient was "not acting like himself" and found to have worsening confusion over the past 2 days. In the ER the patient was found to have hepatic encephalopathy complicated by diminished cognition, end-stage renal disease in need of urgent dialysis, as well as uncontrolled diabetes, and acid osis. Nephrology team consulted in ED and patient was then admitted for further evaluation and Mx. I crept all over myself today. /1: Resume dialysis will adjust insulin for better coverage. Very poor prognosis considering poor medical compliance. Agree with hospice recommendation. Will obtain wound care to continue to manage. Monitor anemia as patient was pretty anemic during the last hospitalization. Required transfusion. 02/20: Continues to undergo dialysis no change in mental status noted. Tolerating medications. Blood sugar mildly elevated adjusted insulin yesterday when awake for the patient received a dose today and if still elevated will adjust. Again case management is working on discharge plan for this patient as he is pending placement 02/21 patient complains of right hip pain. He said he fell few weeks ago and is concerned about another fracture. He had a fracture about 8 weeks ago and had surgery. Will obtain X ray right hip. Patient pending placement. 02/22 Patient seen in Dialysis Unit. He states hip pain improved. No other complaints. Right hip X ray done yesterday report read may be healing fracture or acute fracture. Will discuss with Orthopedic Surgeon Patient pending placement 02/23 Less hip pain. Today complains of generalized itching. Will start Benadryl po prn. Orthopedic consulted to evaluate right hip. Patient pending placement 02/24 Less hip pain. Generalized itching now resolved. Orthopedic consulted to evaluate right hip. He complains of sleeplessness. Will give Ambien prn Patient pending placement 02/25 Patient requested DNR status yesterday. I discussed with him and he signed forms. He also complains of worsening abdominal distension and requested tapping, Will order paracentesis. Right hip evaluated by Dr. Trivedi and conservative management recommended. 02/26: Plan for paracentesis today. Need to set up dialysis as outpatient. manager body working on discharge planning. 02/27: Patient did not sign the consent for paracentesis yesterday so paracentesis was done today and aspirated 6.2L ascitic fluid. Patient refusing medication per RN. Getting dialysis. Patient noted slightly altered today, will place NG tube remains altered and keep refusing oral meds, order for ammonia level and will cont lactulose. 02/28: Patient appears much more calm and cooperative today. He stated that he has been refusing procedure and medication as he believes he was not in the right state of his mind. Patient acknowledges the importance of being compliant and he promises that he will take the medications as he will be given. Discharge planning per case management as patient would need outpatient dialysis center set up and personal snf set up. 03/01/21: Patient has longterm setting but according to heel caser no available RN to accept the patient till Thursday. Continue supportive care. Discharge pending on placement. 03/02/21 -03/04/21: Discharge pending on placement, continue to monitor clinically. Continue current management and plan and supportive care. Patient need SNF placement. 03/05/2021; Awaiting SNF placement for discharge. Prognosis is very poor. Patient is nonresponsive. I try to reach to his son over the phone but could not get in touch. Patient is appropriate for hospice care. 03/06/2021; patient is awaiting SNF placement. Patient was alert and oriented. No confusion. Patient is stable to be discharged back to SNF. 03/07/2021; patient has hemoglobin of 6.8 this morning. A unit of blood ordered. Will monitor H&H. Nephrology is following for dialysis. 03/08/2021; patient's hemoglobin was 6.8 yesterday and transfused a unit of blood. I ordered yesterday to do posttransfusion H&H and was not done. CBC was ordered to be done this morning but was not done. COVID-19 test was done on 03/06 and positive. Nephrology is following the patient for his dialysis. Plan is to discharge him to SNF. Will follow with case management because patient is Covid positive. 03/09/2021; patient's repeat Covid test on 03/08/2021 was positive. Patient is pending for SNF Placement. Patient had hypoglycemia yesterday and patient was placed on Lantus and his sliding scale adjusted to high dose. Will monitor and adjust as needed. 03/10/2021; pending SNF placement. Covid test was positive on and . 03/11/2021; patient has hepatic encephalopathy and his ammonia level is very high, patient is currently on lactulose and rifaximin. Ammonia level is trending down. Nephrology is following for dialysis. Patient has positive Covid test last one was on 03/08, that makes placement difficult. Continue with case management. 03/12: Still awaiting placement, discussed with nursing staff to monitor mental status changes. Will check ammonia level. Continue to adjust blood sugar. Complicated by COVID POSITIVELY. Awaiting placement for the patient. Also dialysis chair time. I have discussed with case management as my understanding was that patient was to go for hospice but this plan appears to have changed possibly not clear to me at this time 03/13: Continue supportive care crush medications that can be crushed. Ammonia level is elevated but not as elevated as previously. Continue lactulose advised nursing staff that this should be given as ordered to communicate with the night team also. Unfortunately when the patient gets better he refuses his lactulose. I truly believe that we should strongly consider palliative care for this patient but nevertheless if he wants to continue dialysis and will be compliant with his medications this is definitely an option can be pursued. Aspiration precautions monitor hemoglobin and platelets. 03/14: Patient seen and examined, more awake today. Continue supportive care, patient was made DNR wade, signed the form today after confirming the patient and also the physician. Monitor for fever. AWAITING PLACEMENT. poor prognosis 03/15/21 Patient is seen and examined. Lab and medication reviewed. Patient denied any chest pain or shortness of breath. Patient is more awake alert today. Patient is getting them hemodialysis today. Continue current management. Awaiting placement. 03/16/21 patient seen and examined. Lab and medication reviewed. Patient feels better. Hemoglobin 8.2 and hematocrit 23.9. Complained of pain in the butt. No other complain. Continue current management and supportive care. Patient is waiting for placement. 03/17: Patient remains with poor prognosis refusing dietary intake. Again discussed hospice and palliative care management considering his current medical condition and declining poor prognostic factors. Discussed with nursing staff patient will continue with lactulose had refused this morning but did take it yesterday. Continue aspiration precautions. Discussed the importance of taking the medication the patient verbalized understanding 03/18: Patient undergoing HD discharge planning ongoing discussed with case management team. Covid test ordered today for placement purposes. 03/19/2021; Covid test was ordered and result is pending. Pending placement. 03/20/2021; patient's Covid test was positive again on 03/20/2021. Pending placement. 03/21/2021. Patient cooperative no acute distress at this time. Complains of loose stool diarrhea. Still awaiting placement. Unable to find hemodialysis placement 03/22/2021. Patient last Covid test was positive however initial test was greater than 14 days ago. Patient is no longer infected. Unable to find hemodialysis line at present. Patient being evaluated for [facility]. 03/23/2021. Patient continues to state he feels good much better at this time. Resting comfortably. No distress noted. Still awaiting hemodialysis center. 03/24/2021 patient with flat mood discussed about depression. Resting comfortably watching TV. Objective - Constitutional Vitals: Vital Signs - 12hr 03/23/21 03/24/21 21:00 05:03 Temperature 98.3 F 98.6 F Pulse Rate 81 75 Respiratory 16 15 Rate Blood Pressure 119/47 Blood Pressure 108/48 [Left] O2 Sat by Pulse 96 98 Oximetry General appearance: Present: cachectic, other (Thin chronically ill-appearing) - EENT Eyes: PERRL, EOM intact ENT: hearing intact, clear oral mucosa, other (Temporal wasting) - Neck Neck: supple, normal ROM - Respiratory Respiratory effort: normal Respiratory: bilateral: CTA - Cardiovascular Rhythm: regular Heart Sounds: Present: S1 & S2. Absent: gallop, rub Extremity abnormal: other (Scaphoid abdomen increased bony prominences) - Gastrointestinal General gastrointestinal: Present: soft, non-tender, non-distended, normal bowel sounds - Musculoskeletal Musculoskeletal: generalized weakness - Psychiatric Psychiatric: appropriate mood/affect - Labs CBC & Chem 7: 03/24/21 06:37 03/24/21 06:37 Labs: Abnormal lab results 03/23/21 03/23/21 03/23/21 Range/Units 11:14 16:28 21:14 RBC (3.65-5.03) M/mm3 Hgb (11.8-15.2) gm/dl Hct (35.5-45.6) % MCHC (32-34) % Lymph % (Auto) (13.4-35.0) % [place] % (Auto) (0.0-7.3) % Lymph # (Auto) (1.2-5.4) K/mm3 Seg Neutrophils % (40.0-70.0) % Potassium (3.6-5.0) mmol/L Chloride (98-107) mmol/L Carbon Dioxide (22-30) mmol/L BUN (9-20) mg/dL Creatinine (0.8-1.3) mg/dL Glucose (75-100) mg/dL POC Glucose 305 H 172 H 249 H (70-105) mg/dL 03/24/21 03/24/21 03/24/21 Range/Units 06:37 06:37 07:45 RBC 2.53 L (3.65-5.03) M/mm3 Hgb 7.8 L (11.8-15.2) gm/dl Hct 22.6 L (35.5-45.6) % MCHC 35 H (32-34) % Lymph % (Auto) 13.3 L (13.4-35.0) % [place] % (Auto) 10.9 H (0.0-7.3) % Lymph # (Auto) 0.6 L (1.2-5.4) K/mm3 Seg Neutrophils % 73.2 H (40.0-70.0) % Potassium 3.3 L (3.6-5.0) mmol/L Chloride 96.7 L (98-107) mmol/L Carbon Dioxide 31 H (22-30) mmol/L BUN 45 H (9-20) mg/dL Creatinine 6.1 H (0.8-1.3) mg/dL Glucose 136 H (75-100) mg/dL POC Glucose 131 H (70-105) mg/dL
[2021-03-24] MEDS: INSULIN LISPRO 100 UNIT/ML SUB-Q SCH ×4 (08:37→22:43)
[2021-03-24] MEDS: CALCIUM ACETATE 667 MG CAP PO SCH ×3 (09:00→19:32)
[2021-03-24] MEDS: diphenhydrAMINE 25 MG CAP PO PRN (09:01)
[2021-03-24] MEDS: FAMOTIDINE 20 MG TAB PO SCH (09:02)
[2021-03-24] MEDS: RIFAXIMIN 550 MG TAB PO SCH ×2 (09:02→22:44)
[2021-03-24] MEDS: PROPRANOLOL 10 MG TAB PO SCH ×2 (09:02→22:46)
[2021-03-24] MEDS: allopurinoL 100 MG TAB PO SCH (09:08)
[2021-03-24] MEDS ORDERED: SERTRALINE 50 MG TAB PO SCH (10:00)
[2021-03-24] MEDS ORDERED: hydrOXYzine HCL 25 MG TAB PO PRN (10:38)
[2021-03-24] MEDS ORDERED: POTASSIUM CHLORIDE ER 20 MEQ TAB PO ONE (11:00)
[2021-03-24] MEDS ORDERED: POTASSIUM CHLORIDE ER 20 MEQ TAB PO NR (15:00)
[2021-03-24] MEDS: INSULIN GLARGINE 100 UNITS/ML SUB-Q SCH (22:42)
[2021-03-25] MEDS: LACTULOSE 20 GM/30 ML ORAL LIQD PO SCH ×4 (00:23→18:23)
--- NOTE | 2021-03-25 08:30 | Progress Note ---
Assessment and Plan -- Hepatic encephalopathy -Patient alert and oriented x3. due to hepatic cirrhosis has resolved cont lactulose, Neuro check, seizure precaution, aspiration precaution, fall precautions, continue to monitor. -Diarrhea resolved was secondary to lactulose. Patient is alert no encephalopathy. -- End stage renal disease Nephrology team consulted, strict I's/O, monitor urine output every shift, dialysis as per renal team, avoid nephrotoxic agents. Await dialysis center. Still no dialysis center. We will dialyze as indicated. --Metabolic Acidosis Nephrology team consulted, dialysis as per renal team. --Hyponatremia Monitor BMP, monitor fluid balance.-Does not require to be checked today we will check every other day now. -- Hyperammonemia Continue lactulose --Pruritus Add Atarax most likely secondary to liver failure --Diabetes mellitus with hyperglycemia Consistent carb diet, SSI -- hyperkalemia, Improvement with dialysis --Ascitis, s/p paracentesis drained 6.2l of ascitic fluid -no further ascites at this time. --Sacral wound, pain control continue local wound care. -- Moderate Protein Calorie Malnutrition, nutrition consulted --Noncompliance, counseled for medication compliance --Depression discussed about depression and initiation of Zoloft Subjective Date of service: 03/25/21 Principal diagnosis: Acute renal failure Interval history: 55 YO Male with ESRD on HD, Noncompliance with outpatient dialysis, Anemia, HBV, Chronic Liver Disease, Cirrhosis complicated by Esophageal Varices, HTN, Debility, DM presents to ED with confusion with diminished cognition. Patient family report the patient was "not acting like himself" and found to have worsening confusion over the past 2 days. In the ER the patient was found to have hepatic encephalopathy complicated by diminished cognition, end-stage renal disease in need of urgent dialysis, as well as uncontrolled diabetes, and acidosis. Nephrology team consulted in ED and patient was then admitted for further evaluation and Mx. I crept all over myself today. /1: Resume dialysis will adjust insulin for better coverage. Very poor prognosis considering poor medical compliance. Agree with hospice recommendation. Will obtain wound care to continue to manage. Monitor anemia as patient was pretty anemic during the last hospitalization. Required transfusion. 02/20: Continues to undergo dialysis no change in mental status noted. Tolerating medications. Blood sugar mildly elevated adjusted insulin yesterday when awake for the patient received a dose today and if still elevated will adjust. Again case management is working on discharge plan for this patient as he is pending placement 02/21 patient complains of right hip pain. He said he fell few weeks ago and is concerned about another fracture. He had a fracture about 8 weeks ago and had surgery. Will obtain X ray right hip. Patient pending placement. 02/22 Patient seen in Dialysis Unit. He states hip pain improved. No other complaints. Right hip X ray done yesterday report read may be healing fracture or acute fracture. Will discuss with Orthopedic Surgeon Patient pending placement 02/23 Less hip pain. Today complains of generalized itching. Will start Benadryl po prn. Orthopedic consulted to evaluate right hip. Patient pending placement 02/24 Less hip pain. Generalized itching now resolved. Orthopedic consulted to evaluate right hip. He complains of sleeplessness. Will give Ambien prn Patient pending placement 02/25 Patient requested DNR status yesterday. I discussed with him and he signed forms. He also complains of worsening abdominal distension and requested tapping, Will order paracentesis. Right hip evaluated by Dr. Trivedi and conservative management recommended. 02/26: Plan for paracentesis today. Need to set up dialysis as outpatient. value stream manager working on discharge planning. 02/27: Patient did not sign the consent for paracentesis yesterday so paracentesis was done today and aspirated 6.2L ascitic fluid. Patient refusing medication per RN. Getting dialysis. Patient noted slightly altered today, will place NG tube remains altered and keep refusing oral meds, order for ammonia level and will cont lactulose. 02/28: Patient appears much more calm and cooperative today. He stated that he has been refusing procedure and medication as he believes he was not in the r ight state of his mind. Patient acknowledges the importance of being compliant and he promises that he will take the medications as he will be given. Discharge planning per case management as patient would need outpatient dialysis center set up and personal longterm set up. 03/01/21: Patient has snf setting but according to rn case mgr no available RN to accept the patient till Thursday. Continue supportive care. Discharge pending on placement. 03/02/21 -03/04/21: Discharge pending on placement, continue to monitor clinically. Continue current management and plan and supportive care. Patient need SNF placement. 03/05/2021; Awaiting SNF placement for discharge. Prognosis is very poor. Patient is nonresponsive. I try to reach to his son over the phone but could not get in touch. Patient is appropriate for hospice care. 03/06/2021; patient is awaiting SNF placement. Patient was alert and oriented. No confusion. Patient is stable to be discharged back to SNF. 03/07/2021; patient has hemoglobin of 6.8 this morning. A unit of blood ordered. Will monitor H&H. Nephrology is following for dialysis. 03/08/2021; patient's hemoglobin was 6.8 yesterday and transfused a unit of blood. I ordered yesterday to do posttransfusion H&H and was not done. CBC was ordered to be done this morning but was not done. COVID-19 test was done on 03/06 and positive. Nephrology is following the patient for his dialysis. Plan is to discharge him to SNF. Will follow with case management because patient is Covid positive. 03/09/2021; patient's repeat Covid test on 03/08/2021 was positive. Patient is pending for SNF Placement. Patient had hypoglycemia yesterday and patient was placed on Lantus and his sliding scale adjusted to high dose. Will monitor and adjust as needed. 03/10/2021; pending SNF placement. Covid test was positive on and . 03/11/2021; patient has hepatic encephalopathy and his ammonia level is very high, patient is currently on lactulose and rifaximin. Ammonia level is trending down. Nephrology is following for dialysis. Patient has positive Cov id test last one was on 03/08, that makes placement difficult. Continue with case management. 03/12: Still awaiting placement, discussed with nursing staff to monitor mental status changes. Will check ammonia level. Continue to adjust blood sugar. Complicated by COVID POSITIVELY. Awaiting placement for the patient. Also dialysis chair time. I have discussed with case management as my understanding was that patient was to go for hospice but this plan appears to have changed possibly not clear to me at this time 03/13: Continue supportive care crush medications that can be crushed. Ammonia level is elevated but not as elevated as previously. Continue lactulose advised nursing staff that this should be given as ordered to communicate with the night team also. Unfortunately when the patient gets better he refuses his lactulose. I truly believe that we should strongly consider palliative care for this patient but nevertheless if he wants to continue dialysis and will be compliant with his medications this is definitely an option can be pursued. Aspiration precautions monitor hemoglobin and platelets. 03/14: Patient seen and examined, more awake today. Continue supportive care, patient was made DNR wade, signed the form today after confirming the patient and also the physician. Monitor for fever. AWAITING PLACEMENT. poor prognosis 03/15/21 Patient is seen and examined. Lab and medication reviewed. Patient denied any chest pain or shortness of breath. Patient is more awake alert today. Patient is getting them hemodialysis today. Continue current management. Awaiting placement. 03/16/21 patient seen and examined. Lab and medication reviewed. Patient feels better. Hemoglobin 8.2 and hematocrit 23.9. Complained of pain in the butt. No other complain. Continue current management and supportive care. Patient is waiting for placement. 03/17: Patient remains with poor prognosis refusing dietary intake. Again discussed hospice and palliative care management considering his current medical condition and declining poor prognostic factors. Discussed with nursing staff patient will continue with lactulose had refused this morning but did take it yesterday. Continue aspiration precautions. Discussed the importance of taking the medication the patient verbalized understanding 03/18: Patient undergoing HD discharge planning ongoing discussed with case management team. Covid test ordered today for placement purposes. 03/19/2021; Covid test was ordered and result is pending. Pending placement. 03/20/2021; patient's Covid test was positive again on 03/20/2021. Pending placement. 03/21/2021. Patient cooperative no acute distress at this time. Complains of loose stool diarrhea. Still awaiting placement. Unable to find hemodialysis placement 03/22/2021. Patient last Covid test was positive however initial test was greater than 14 days ago. Patient is no longer infected. Unable to find hemodialysis line at present. Patient being evaluated for [facility]. 03/23/2021. Patient continues to state he feels good much better at this time. Resting comfortably. No distress noted. Still awaiting hemodialysis center. 03/24/2021 patient with flat mood discussed about depression. Resting comfortably watching TV. 03/25/2021. Patient denies depression at this time. Complains of itching all over. When am i getting out of here Objective - Constitutional Vitals: Vital Signs - 12hr 03/24/21 03/24/21 03/25/21 21:42 22:46 04:59 Temperature 98.0 F 98.0 F Pulse Rate 85 88 Respiratory 16 16 Rate Blood Pressure 110/48 110/48 117/58 O2 Sat by Pulse 100 Oximetry General appearance: Present: cachectic, other (Temporal wasting) - Neck Neck: supple, normal ROM - Respiratory Respiratory: bilateral: diminished (Poor inspiratory effort) - Cardiovascular Rhythm: regular Extremities: No edema, normal temperature Extremity abnormal: other (Increased bony prominences) - Gastrointestinal General gastrointestinal: Present: other (Scaphoid abdomen positive bowel sounds). Absent: splenomegaly - Musculoskeletal Musculoskeletal: generalized weakness - Neurologic Neurologic: CNII-XII intact, no focal deficits, moves all extremities - Labs CBC & Chem 7: 03/24/21 06:37 03/24/21 06:37 Labs: Abnormal lab results 03/24/21 03/24/21 03/24/21 Range/Units 11:37 16:34 21:41 POC Glucose 228 H 258 H 210 H (70-105) mg/dL 03/25/21 Range/Units 07:36 POC Glucose 276 H (70-105) mg/dL
[2021-03-25] MEDS: INSULIN LISPRO 100 UNIT/ML SUB-Q SCH ×5 (08:34→22:15)
[2021-03-25] MEDS: CALCIUM ACETATE 667 MG CAP PO SCH ×3 (08:35→18:23)
[2021-03-25] MEDS: PROPRANOLOL 10 MG TAB PO SCH ×2 (10:49→22:47)
[2021-03-25] MEDS: allopurinoL 100 MG TAB PO SCH (10:50)
[2021-03-25] MEDS: RIFAXIMIN 550 MG TAB PO SCH ×2 (10:50→22:15)
[2021-03-25] MEDS: FAMOTIDINE 20 MG TAB PO SCH (10:50)
[2021-03-25] MEDS: INSULIN GLARGINE 100 UNITS/ML SUB-Q SCH (22:47)
--- NOTE | 2021-03-25 23:23 | Progress Note ---
Assessment and Plan 1. ESRD: Patient is on maintenance hemodialysis three times a week, MWF schedule. Meds dosage based on GFR. Missed HD 02/18. Hemodialysis: 02/19, 02/20, 02/22, 02/25, 02/27, 03/01, 03/04, 03/06, 03/08, 03/11, 03/13, 03/15, 03/18, 03/20, 03/22, 03/25. 2. FEN: Hyperkalemia, improved. Monitor lytes and volume status. 3. Anemia, POA: 2/2 ESRD and Liver disease. Epogen with HD. PRBC as needed. 4. Cirrhosis with h/o hepatic encephalopathy: Lactulose and Rifaximin. Monitor. 5. DM type 2: SSI. Monitor. 6. Thrombocytopenia, POA. 7. Hypertension: Monitor BP. Adjust meds as appropriate. Await placement. Delay in placement due to Covid test positive. Subjective: Patient was seen and examined at the bedside. General Appearance: General appearance: well-developed, appears stated age, not in distress HEENT: ATNC, pupils equal Neck: trachea midline Respiratory: ctab Heart: regular, S1S2, no murmur Abdomen: soft, bowel sounds heard, slightly distended, not tender Integumentary: no rash, warm and dry Neurologic: alert, conversing, moving extremities Ext: no edema, R BKA Hemodialysis access: R arm AVF Subjective Date of service: 03/25/21 Principal diagnosis: Acute renal failure Objective - Vital Signs Vital signs: Vital Signs - 12hr 03/25/21 03/25/21 03/25/21 11:30 11:45 12:05 Temperature 98 F Pulse Rate 90 89 84 Respiratory 18 Rate Blood Pressure 94/51 77/41 94/50 O2 Sat by Pulse Oximetry 03/25/21 03/25/21 03/25/21 16:33 22:03 22:47 Temperature 98.0 F 97.7 F Pulse Rate 85 86 86 Respiratory 16 18 Rate Blood Pressure 104/38 114/55 114/55 O2 Sat by Pulse 97 99 Oximetry - Lab 03/24/21 06:37 03/24/21 06:37 Most recent lab results Calcium 8.4 mg/dL (8.4-10.2) 03/24/21 06:37 Magnesium 2.10 mg/dL (1.7-2.3) 02/17/21 02:24 Medications & Allergies - Medications Allergies/Adverse Reactions: Allergies No Known Allergies Allergy (Verified 02/16/21 18:26) Home Medications: Home Medications Medication Instructions Recorded Confirmed Last Taken Type Calcium Acetate [Phoslo] 1,334 mg PO TIDWM #90 capsule 03/01/21 Unknown Rx Famotidine [Pepcid] 20 mg PO QAM #30 tablet 03/01/21 Unknown Rx Lactulose [Cephulac] 20 gm PO Q8HR 30 Days 03/01/21 Unknown Rx Lispro Insulin [HumaLOG] See Protocol SQ ACHS 30 Days 03/01/21 Unknown Rx allopurinoL [Zyloprim] 100 mg PO QDAY #30 tablet 03/01/21 Unknown Rx propranoloL [Inderal] 20 mg PO BID #60 tablet 03/01/21 Unknown Rx Active Medications: Generic Name Dose Route Start Last Admin Trade Name Freq PRN Reason Stop Dose Admin Acetaminophen 650 mg 02/18/21 22:38 03/09/21 13:15 Acetaminophen 325 Mg Tab PO 650 mg Q4H PRN Administration Pain MILD(1-3)/Fever >100.5/MOLINA Albuterol 2.5 mg 02/18/21 22:38 Albuterol 2.5 Mg/3 Ml Nebu IH Q3HRT PRN Shortness Of Breath Allopurinol 100 mg 02/20/21 10:00 03/25/21 10:50 Allopurinol 100 Mg Tab PO Not Given QDAY LEYLA Calcium Acetate 1,334 mg 02/20/21 08:30 03/25/21 18:23 Calcium Acetate 667 Mg Cap PO 1,334 mg TIDWM LEYLA Administration Dextrose 0 ml 02/18/21 23:00 02/25/21 16:56 Dextrose 50% In Water (25gm) 50 Ml Syringe IV 50 ml Q30MIN PRN Administration Hypoglycemia Protocol Diphenhydramine HCl 25 mg 02/23/21 09:10 03/24/21 09:01 Diphenhydramine 25 Mg Cap PO 25 mg BID PRN Administration Itching Famotidine 20 mg 02/19/21 10:00 03/25/21 10:50 Famotidine 20 Mg Tab PO Not Given QAM LEYLA Hydralazine HCl 10 mg 02/18/21 22:56 Hydralazine 20 Mg/1 Ml Inj IV Q6H PRN htn Hydroxyzine HCl 25 mg 03/24/21 10:38 Hydroxyzine Hcl 25 Mg Tab PO Q6H PRN Itching Sodium Chloride 100 mls @ 999 mls/hr 02/19/21 09:06 Nacl 0.9% IV OLIVIA PRN Hypotension Dextrose/Sodium Chloride 1,000 mls @ 50 mls/hr 03/12/21 15:00 03/19/21 20:31 D5/0.45ns IV 50 mls/hr DIRECT LEYLA Administration Insulin Glargine 16 units 03/23/21 09:00 03/25/21 22:47 Insulin Glargine 100 Units/Ml SUB-Q 16 units QHS LEYLA Administration Insulin Human Lispro 0 unit 03/09/21 22:00 03/25/21 22:15 Insulin Lispro 100 Unit/Ml SUB-Q 8 unit ACHS LEYLA Administration Protocol Lactulose 20 gm 03/09/21 18:00 03/25/21 18:23 Lactulose 20 Gm/30 Ml Oral Liqd PO 20 gm Q6HR LEYLA Administration Ondansetron HCl 4 mg 02/18/21 22:38 02/28/21 12:32 Ondansetron 4 Mg/2 Ml Inj IV 4 mg Q8H PRN Administration Nausea And Vomiting Polyethylene Glycol 17 gm 02/24/21 12:08 02/24/21 12:47 Polyethylene Glycol 3350 17 Gm Powder PO 17 gm QDAY PRN Administration Constipation Propranolol HCl 20 mg 02/20/21 10:00 03/25/21 22:47 Propranolol 10 Mg Tab PO 20 mg BID LEYLA Administration Rifaximin 550 mg 03/10/21 12:00 03/25/21 22:15 Rifaximin 550 Mg Tab PO 550 mg BID LEYLA Administration Sodium Chloride 10 ml 02/19/21 10:00 03/25/21 22:49 Sodium Chloride 0.9% 10 Ml Flush Syringe IV Not Given BID LEYLA Sodium Chloride 10 ml 02/18/21 22:38 Sodium Chloride 0.9% 10 Ml Flush Syringe IV PRN PRN LINE FLUSH Tramadol HCl 50 mg 02/24/21 13:20 03/16/21 21:03 Tramadol 50 Mg Tab PO 50 mg Q6H PRN Administration Pain, Moderate (4-6) Zolpidem Tartrate 5 mg 02/24/21 09:54 03/08/21 23:25 Zolpidem 5 Mg Tab PO 5 mg QHS PRN Administration Sleep
[2021-03-26] MEDS: LACTULOSE 20 GM/30 ML ORAL LIQD PO SCH ×5 (00:12→23:01)
--- NOTE | 2021-03-26 08:18 | Progress Note ---
Assessment and Plan 1. ESRD: Patient is on maintenance hemodialysis three times a week, MWF schedule. Meds dosage based on GFR. Missed HD 02/18. Hemodialysis: 02/19, 02/20, 02/22, 02/25, 02/27, 03/01, 03/04, 03/06, 03/08, 03/11, 03/13, 03/15, 03/18, 03/20, 03/22, 03/25. 2. FEN: Hyperkalemia, improved. Monitor lytes and volume status. 3. Anemia, POA: 2/2 ESRD and Liver disease. Epogen with HD. PRBC as needed. 4. Cirrhosis with h/o hepatic encephalopathy: Lactulose and Rifaximin. Monitor. 5. DM type 2: SSI. Monitor. 6. Thrombocytopenia, POA. 7. Hypertension: Monitor BP. Adjust meds as appropriate. Await placement. Subjective: Patient was seen and examined at the bedside. General Appearance: General appearance: well-developed, appears stated age, not in distress HEENT: ATNC, pupils equal Neck: trachea midline Respiratory: ctab Heart: regular, S1S2, no murmur Abdomen: soft, bowel sounds heard, slightly distended, not tender Integumentary: no rash, warm and dry Neurologic: alert, conversing, moving extremities Ext: no edema, R BKA Hemodialysis access: R arm AVF Subjective Date of service: 03/26/21 Principal diagnosis: Acute renal failure Objective - Vital Signs Vital signs: Vital Signs - 12hr 03/25/21 03/25/21 03/26/21 22:03 22:47 04:28 Temperature 97.7 F 98.2 F Pulse Rate 86 86 70 Respiratory 18 18 Rate Blood Pressure 114/55 114/55 147/38 O2 Sat by Pulse 99 98 Oximetry - Lab 03/24/21 06:37 03/24/21 06:37 Most recent lab results Calcium 8.4 mg/dL (8.4-10.2) 03/24/21 06:37 Magnesium 2.10 mg/dL (1.7-2.3) 02/17/21 02:24 Medications & Allergies - Medications Allergies/Adverse Reactions: Allergies No Known Allergies Allergy (Verified 02/16/21 18:26) Home Medications: Home Medications Medication Instructions Recorded Confirmed Last Taken Type Calcium Acetate [Phoslo] 1,334 mg PO TIDWM #90 capsule 03/01/21 Unknown Rx Famotidine [Pepcid] 20 mg PO QAM #30 tablet 03/01/21 Unknown Rx Lactulose [Cephulac] 20 gm PO Q8HR 30 Days 03/01/21 Unknown Rx Lispro Insulin [HumaLOG] See Protocol SQ ACHS 30 Days 03/01/21 Unknown Rx allopurinoL [Zyloprim] 100 mg PO QDAY #30 tablet 03/01/21 Unknown Rx propranoloL [Inderal] 20 mg PO BID #60 tablet 03/01/21 Unknown Rx Active Medications: Generic Name Dose Route Start Last Admin Trade Name Freq PRN Reason Stop Dose Admin Acetaminophen 650 mg 02/18/21 22:38 03/09/21 13:15 Acetaminophen 325 Mg Tab PO 650 mg Q4H PRN Administration Pain MILD(1-3)/Fever >100.5/MOLINA Albuterol 2.5 mg 02/18/21 22:38 Albuterol 2.5 Mg/3 Ml Nebu IH Q3HRT PRN Shortness Of Breath Allopurinol 100 mg 02/20/21 10:00 03/25/21 10:50 Allopurinol 100 Mg Tab PO Not Given QDAY LEYLA Calcium Acetate 1,334 mg 02/20/21 08:30 03/25/21 18:23 Calcium Acetate 667 Mg Cap PO 1,334 mg TIDWM LEYLA Administration Dextrose 0 ml 02/18/21 23:00 02/25/21 16:56 Dextrose 50% In Water (25gm) 50 Ml Syringe IV 50 ml Q30MIN PRN Administration Hypoglycemia Protocol Diphenhydramine HCl 25 mg 02/23/21 09:10 03/24/21 09:01 Diphenhydramine 25 Mg Cap PO 25 mg BID PRN Administration Itching Famotidine 20 mg 02/19/21 10:00 03/25/21 10:50 Famotidine 20 Mg Tab PO Not Given QAM LEYLA Hydralazine HCl 10 mg 02/18/21 22:56 Hydralazine 20 Mg/1 Ml Inj IV Q6H PRN htn Hydroxyzine HCl 25 mg 03/24/21 10:38 Hydroxyzine Hcl 25 Mg Tab PO Q6H PRN Itching Sodium Chloride 100 mls @ 999 mls/hr 02/19/21 09:06 Nacl 0.9% IV OLIVIA PRN Hypotension Dextrose/Sodium Chloride 1,000 mls @ 50 mls/hr 03/12/21 15:00 03/19/21 20:31 D5/0.45ns IV 50 mls/hr DIRECT LEYLA Administration Insulin Glargine 16 units 03/23/21 09:00 03/25/21 22:47 Insulin Glargine 100 Units/Ml SUB-Q 16 units QHS LEYLA Administration Insulin Human Lispro 0 unit 03/09/21 22:00 03/25/21 22:15 Insulin Lispro 100 Unit/Ml SUB-Q 8 unit ACHS LEYLA Administration Protocol Lactulose 20 gm 03/09/21 18:00 03/26/21 05:55 Lactulose 20 Gm/30 Ml Oral Liqd PO 20 gm Q6HR LEYLA Administration Ondansetron HCl 4 mg 02/18/21 22:38 02/28/21 12:32 Ondansetron 4 Mg/2 Ml Inj IV 4 mg Q8H PRN Administration Nausea And Vomiting Polyethylene Glycol 17 gm 02/24/21 12:08 02/24/21 12:47 Polyethylene Glycol 3350 17 Gm Powder PO 17 gm QDAY PRN Administration Constipation Propranolol HCl 20 mg 02/20/21 10:00 03/25/21 22:47 Propranolol 10 Mg Tab PO 20 mg BID LEYLA Administration Rifaximin 550 mg 03/10/21 12:00 03/25/21 22:15 Rifaximin 550 Mg Tab PO 550 mg BID LEYLA Administration Sodium Chloride 10 ml 02/19/21 10:00 03/25/21 22:49 Sodium Chloride 0.9% 10 Ml Flush Syringe IV Not Given BID LEYLA Sodium Chloride 10 ml 02/18/21 22:38 Sodium Chloride 0.9% 10 Ml Flush Syringe IV PRN PRN LINE FLUSH Tramadol HCl 50 mg 02/24/21 13:20 03/16/21 21:03 Tramadol 50 Mg Tab PO 50 mg Q6H PRN Administration Pain, Moderate (4-6) Zolpidem Tartrate 5 mg 02/24/21 09:54 03/08/21 23:25 Zolpidem 5 Mg Tab PO 5 mg QHS PRN Administration Sleep
[2021-03-26] MEDS: INSULIN LISPRO 100 UNIT/ML SUB-Q SCH ×4 (08:24→22:57)
--- NOTE | 2021-03-26 08:44 | Progress Note ---
Assessment and Plan Assessment and plan: 55 YO Male with ESRD on HD, Noncompliance with outpatient dialysis, Anemia, HBV, Chronic Liver Disease, Cirrhosis complicated by Esophageal Varices, HTN, Debility, DM presents to ED with confusion with diminished cognition. Patient family report the patient was "not acting like himself" and found to have worsening confusion over the past 2 days. In the ER the patient was found to have hepatic encephalopathy complicated by diminished cognition, end-stage renal disease in need of urgent dialysis, as well as uncontrolled diabetes, and acidosis. -- Hepatic encephalopathy -Patient alert and oriented x3. due to hepatic cirrhosis has resolved cont lactulose, Neuro check, seizure precaution, aspiration precaution, fall precautions, continue to monitor. -Diarrhea resolved was secondary to lactulose. Patient is alert no encephalopathy. -- End stage renal disease Nephrology team consulted, strict I's/O, monitor urine output every shift, dialysis as per renal team, avoid nephrotoxic agents. Await dialysis center. Still no dialysis center. We will dialyze as indicated. --Metabolic Acidosis Nephrology team consulted, dialysis as per renal team. --Hyponatremia Monitor BMP, monitor fluid balance.-Does not require to be checked today we will check every other day now. -- Hyperammonemia Continue lactulose --Pruritus Add Atarax most likely secondary to liver failure --Diabetes mellitus with hyperglycemia Consistent carb diet, SSI -- hyperkalemia, Improvement with dialysis --Ascites, s/p paracentesis drained 6.2l of ascitic fluid -no further ascites at this time. --Sacral wound, pain control continue local wound care. -- Moderate Protein Calorie Malnutrition, nutrition consulted --Noncompliance, counseled for medication compliance --Depression discussed about depression and initiation of Zoloft /1: Resume dialysis will adjust insulin for better coverage. Very poor prognos is considering poor medical compliance. Agree with hospice recommendation. Will obtain wound care to continue to manage. Monitor anemia as patient was pretty anemic during the last hospitalization. Required transfusion. 02/20: Continues to undergo dialysis no change in mental status noted. Tolerating medications. Blood sugar mildly elevated adjusted insulin yesterday when awake for the patient received a dose today and if still elevated will adjust. Again case management is working on discharge plan for this patient as he is pending placement 02/21 patient complains of right hip pain. He said he fell few weeks ago and is concerned about another fracture. He had a fracture about 8 weeks ago and had surgery. Will obtain X ray right hip. Patient pending placement. 02/22 Patient seen in Dialysis Unit. He states hip pain improved. No other complaints. Right hip X ray done yesterday report read may be healing fracture or acute fracture. Will discuss with Orthopedic Surgeon Patient pending placement 02/23 Less hip pain. Today complains of generalized itching. Will start Benadryl po prn. Orthopedic consulted to evaluate right hip. Patient pending placement 02/24 Less hip pain. Generalized itching now resolved. Orthopedic consulted to evaluate right hip. He complains of sleeplessness. Will give Ambien prn Patient pending placement 02/25 Patient requested DNR status yesterday. I discussed with him and he signed forms. He also complains of worsening abdominal distension and requested tap ping, Will order paracentesis. Right hip evaluated by Dr. Trivedi and conservative management recommended. 02/26: Plan for paracentesis today. Need to set up dialysis as outpatient. manager government working on discharge planning. 02/27: Patient did not sign the consent for paracentesis yesterday so paracentesis was done today and aspirated 6.2L ascitic fluid. Patient refusing medication per RN. Getting dialysis. Patient noted slightly altered today, will place NG tube remains altered and keep refusing oral meds, order for ammonia level and will cont lactulose. 02/28: Patient appears much more calm and cooperative today. He stated that he has been refusing procedure and medication as he believes he was not in the right state of his mind. Patient acknowledges the importance of being compliant and he promises that he will take the medications as he will be given. Discharge planning per case management as patient would need outpatient dialysis center set up and personal usp set up. 03/01/21: Patient has [facility] setting but according to field case manager no available RN to accept the patient till Thursday. Continue supportive care. Discharge pending on placement. 03/02/21 -03/04/21: Discharge pending on placement, continue to monitor clinically. Continue current management and plan and supportive care. Patient need SNF placement. 03/05/2021; Awaiting SNF placement for discharge. Prognosis is very poor. Patient is nonresponsive. I try to reach to his son over the phone but could not get in touch. Patient is appropriate for hospice care. 03/06/2021; patient is awaiting SNF placement. Patient was alert and oriented. No confusion. Patient is stable to be discharged back to SNF. 03/07/2021; patient has hemoglobin of 6.8 this morning. A unit of blood ordered. Will monitor H&H. Nephrology is following for dialysis. 03/08/2021; patient's hemoglobin was 6.8 yesterday and transfused a unit of blood. I ordered yesterday to do posttransfusion H&H and was not done. CBC was ordered to be done this morning but was not done. COVID-19 test was done on 03/06 and positive. Nephrology is following the patient for his dialysis. Plan is to discharge him to SNF. Will follow with case management because patient is Covid positive. 03/09/2021; patient's repeat Covid test on 03/08/2021 was positive. Patient is pending for SNF Placement. Patient had hypoglycemia yesterday and patient was placed on Lantus and his sliding scale adjusted to high dose. Will monitor and adjust as needed. 03/10/2021; pending SNF placement. Covid test was positive on and . 03/11/2021; patient has hepatic encephalopathy and his ammonia level is very high, patient is currently on lactulose and rifaximin. Ammonia level is trending down. Nephrology is following for dialysis. Patient has positive Covid test last one was on 03/08, that makes placement difficult. Continue with case management. 03/12: Still awaiting placement, discussed with nursing staff to monitor mental status changes. Will check ammonia level. Continue to adjust blood sugar. Complicated by COVID POSITIVELY. Awaiting placement for the patient. Also dialysis chair time. I have discussed with case management as my understanding was that patient was to go for hospice but this plan appears to have changed possibly not clear to me at this time 03/13: Continue supportive care crush medications that can be crushed. Ammonia level is elevated but not as elevated as previously. Continue lactulose advised nursing staff that this should be given as ordered to communicate with the night team also. Unfortunately when the patient gets better he refuses his lactulose. I truly believe that we should strongly consider palliative care for this patient but nevertheless if he wants to continue dialysis and will be compliant with his medications this is definitely an option can be pursued. Aspiration precautions monitor hemoglobin and platelets. 03/14: Patient seen and examined, more awake today. Continue supportive care, patient was made DNR wade, signed the form today after confirming the patient and also the physician. Monitor for fever. AWAITING PLACEMENT. poor prognosis 03/15/21 Patient is seen and examined. Lab and medication reviewed. Patient denied any chest pain or shortness of breath. Patient is more awake alert today. Patient is getting them hemodialysis today. Continue current management. Awaiting placement. 03/16/21 patient seen and examined. Lab and medication reviewed. Patient feels better. Hemoglobin 8.2 and hematocrit 23.9. Complained of pain in the butt. No other complain. Continue current management and supportive care. Patient is waiting for placement. 03/17: Patient remains with poor prognosis refusing dietary intake. Again discussed hospice and palliative care management considering his current medical condition and declining poor prognostic factors. Discussed with nursing staff patient will continue with lactulose had refused this morning but did take it yesterday. Continue aspiration precautions. Discussed the importance of taking the medication the patient verbalized understanding 03/18: Patient undergoing HD discharge planning ongoing discussed with case management team. Covid test ordered today for placement purposes. 03/19/2021; Covid test was ordered and result is pending. Pending placement. 03/20/2021; patient's Covid test was positive again on 03/20/2021. Pending placement. 03/21/2021. Patient cooperative no acute distress at this time. Complains of loose stool diarrhea. Still awaiting placement. Unable to find hemodialysis placement 03/22/2021. Patient last Covid test was positive however initial test was greater than 14 days ago. Patient is no longer infected. Unable to find hemodialysis line at present. Patient being evaluated for [facility]. 03/23/2021. Patient continues to state he feels good much better at this time. Resting comfortably. No distress noted. Still awaiting hemodialysis center. 03/24/2021 patient with flat mood discussed about depression. Resting comfortably watching TV. 03/25/2021. Patient denies depression at this time. Complains of itching all over. When am i getting out of here 03/26/2021. Case management reports patient is still awaiting hemodialysis placem ent History Interval history: No new issues Hospitalist Physical - Constitutional Vitals: Temp Pulse Resp BP Pulse Ox 98.2 F 70 18 147/38 98 03/26/21 04:28 03/26/21 04:28 03/26/21 04:28 03/26/21 04:28 03/26/21 04:28 General appearance: Present: cachectic, other (Temporal wasting) - EENT Eyes: Present: PERRL, EOM intact ENT: hearing intact, clear oral mucosa, dentition normal - Neck Neck: Present: supple, normal ROM - Respiratory Respiratory effort: normal Respiratory: bilateral: CTA - Cardiovascular Rhythm: regular Heart Sounds: Present: S1 & S2. Absent: gallop, rub - Extremities Extremities: no ischemia, No edema, Full ROM - Abdominal General gastrointestinal: soft, non-tender, non-distended, normal bowel sounds - Integumentary Integumentary: Present: clear, warm, dry - Neurologic Neurologic: CNII-XII intact, moves all extremities Results - Labs CBC & Chem 7: 03/24/21 06:37 03/24/21 06:37 Labs: Laboratory Last Values WBC 4.5 K/mm3 (4.5-11.0) 03/24/21 06:37 RBC 2.53 M/mm3 (3.65-5.03) L 03/24/21 06:37 Hgb 7.8 gm/dl (11.8-15.2) L 03/24/21 06:37 Hct 22.6 % (35.5-45.6) L 03/24/21 06:37 MCV 90 fl (84-94) 03/24/21 06:37 MCH 31 pg (28-32) 03/24/21 06:37 MCHC 35 % (32-34) H 03/24/21 06:37 RDW 15.2 % (13.2-15.2) 03/24/21 06:37 Plt Count 147 K/mm3 (140-440) 03/24/21 06:37 Lymph % (Auto) 13.3 % (13.4-35.0) L 03/24/21 06:37 [place] % (Auto) 10.9 % (0.0-7.3) H 03/24/21 06:37 Eos % (Auto) 1.7 % (0.0-4.3) 03/24/21 06:37 Baso % (Auto) 0.9 % (0.0-1.8) 03/24/21 06:37 Lymph # (Auto) 0.6 K/mm3 (1.2-5.4) L 03/24/21 06:37 [place] # (Auto) 0.5 K/mm3 (0.0-0.8) 03/24/21 06:37 Eos # (Auto) 0.1 K/mm3 (0.0-0.4) 03/24/21 06:37 Baso # (Auto) 0.0 K/mm3 (0.0-0.1) 03/24/21 06:37 Add Manual Diff Complete 03/07/21 05:23 Total Counted 100 03/07/21 05:23 Seg Neutrophils % 73.2 % (40.0-70.0) H 03/24/21 06:37 Seg Neuts % (Manual) 78.0 % (40.0-70.0) H 03/07/21 05:23 Lymphocytes % (Manual) 13.0 % (13.4-35.0) L 03/07/21 05:23 Monocytes % (Manual) 9.0 % (0.0-7.3) H 03/07/21 05:23 Nucleated RBC % Not Reportable 03/07/21 05:23 Seg Neutrophils # 3.3 K/mm3 (1.8-7.7) 03/24/21 06:37 Seg Neutrophils # Man 2.0 K/mm3 (1.8-7.7) 03/07/21 05:23 Band Neutrophils # 0.0 K/mm3 03/07/21 05:23 Lymphocytes # (Manual) 0.3 K/mm3 (1.2-5.4) L 03/07/21 05:23 Abs React Lymphs (Man) 0.0 K/mm3 03/07/21 05:23 Monocytes # (Manual) 0.2 K/mm3 (0.0-0.8) 03/07/21 05:23 Eosinophils # (Manual) 0.0 K/mm3 (0.0-0.4) 03/07/21 05:23 Basophils # (Manual) 0.0 K/mm3 (0.0-0.1) 03/07/21 05:23 Metamyelocytes # 0.0 K/mm3 03/07/21 05:23 Myelocytes # 0.0 K/mm3 03/07/21 05:23 Promyelocytes # 0.0 K/mm3 03/07/21 05:23 Blast Cells # 0.0 K/mm3 03/07/21 05:23 WBC Morphology Not Reportable 03/07/21 05:23 Hypersegmented Neuts Not Reportable 03/07/21 05:23 Hyposegmented Neuts Not Reportable 03/07/21 05:23 Hypogranular Neuts Not Reportable 03/07/21 05:23 Smudge Cells Not Reportable 03/07/21 05:23 Toxic Granulation Not Reportable 03/07/21 05:23 Toxic Vacuolation Not Reportable 03/07/21 05:23 Dohle Bodies Not Reportable 03/07/21 05:23 Pelger-Huet Anomaly Not Reportable 03/07/21 05:23 Cosme Rods Not Reportable 03/07/21 05:23 Platelet Estimate Consistent w auto 03/07/21 05:23 Clumped Platelets Not Reportable 03/07/21 05:23 Plt Clumps, EDTA Not Reportable 03/07/21 05:23 Large Platelets Not Reportable 03/07/21 05:23 Giant Platelets Not Reportable 03/07/21 05:23 Platelet Satelliting Not Reportable 03/07/21 05:23 Plt Morphology Comment Not Reportable 03/07/21 05:23 RBC Morphology Not Reportable 03/07/21 05:23 Dimorphic RBCs Not Reportable 03/07/21 05:23 Polychromasia Not Reportable 03/07/21 05:23 Hypochromasia Not Reportable 03/07/21 05:23 Poikilocytosis Not Reportable 03/07/21 05:23 Anisocytosis Few 03/07/21 05:23 Microcytosis Not Reportable 03/07/21 05:23 Macrocytosis Not Reportable 03/07/21 05:23 Spherocytes Not Reportable 03/07/21 05:23 Pappenheimer Bodies Not Reportable 03/07/21 05:23 Sickle Cells Not Reportable 03/07/21 05:23 Target Cells Not Reportable 03/07/21 05:23 Tear Drop Cells Not Reportable 03/07/21 05:23 Ovalocytes Not Reportable 03/07/21 05:23 Helmet Cells Not Reportable 03/07/21 05:23 Mercado-Myra Bodies Not Reportable 03/07/21 05:23 [place] Rings Not Reportable 03/07/21 05:23 [place] Cells Not Reportable 03/07/21 05:23 Bite Cells Not Reportable 03/07/21 05:23 Crenated Cell Not Reportable 03/07/21 05:23 Elliptocytes Not Reportable 03/07/21 05:23 Acanthocytes (Spur) Not Reportable 03/07/21 05:23 Rouleaux Not Reportable 03/07/21 05:23 Hemoglobin C Crystals Not Reportable 03/07/21 05:23 Schistocytes Not Reportable 03/07/21 05:23 Malaria parasites Not Reportable 03/07/21 05:23 Samir Bodies Not Reportable 03/07/21 05:23 Hem Pathologist Commnt No 03/07/21 05:23 PT 13.7 Sec. (12.2-14.9) 02/26/21 04:33 INR 1.00 (0.87-1.13) 02/26/21 04:33 Sodium 137 mmol/L (137-145) 03/24/21 06:37 Potassium 3.3 mmol/L (3.6-5.0) L 03/24/21 06:37 Chloride 96.7 mmol/L (98-107) L 03/24/21 06:37 Carbon Dioxide 31 mmol/L (22-30) H 03/24/21 06:37 Anion Gap 13 mmol/L 03/24/21 06:37 BUN 45 mg/dL (9-20) H 03/24/21 06:37 Creatinine 6.1 mg/dL (0.8-1.3) H 03/24/21 06:37 Estimated GFR 10 ml/min 03/24/21 06:37 BUN/Creatinine Ratio 7 % 03/24/21 06:37 Glucose 136 mg/dL (75-100) H 03/24/21 06:37 POC Glucose 142 mg/dL (70-105) H 03/26/21 07:57 Hemoglobin A1c 7.4 % (4-6) H 02/26/21 04:33 Calcium 8.4 mg/dL (8.4-10.2) 03/24/21 06:37 Magnesium 2.10 mg/dL (1.7-2.3) 02/17/21 02:24 Total Bilirubin 0.60 mg/dL (0.1-1.2) 03/14/21 07:24 Direct Bilirubin 0.3 mg/dL (0-0.2) H 03/14/21 07:24 Indirect Bilirubin 0.3 mg/dL 03/14/21 07:24 AST 57 units/L (5-40) H 03/14/21 07:24 ALT 24 units/L (7-56) 03/14/21 07:24 Alkaline Phosphatase 179 units/L (35-129) H 03/14/21 07:24 Ammonia 30.0 umol/L (25-60) 03/14/21 07:24 Total Creatine Kinase 86 units/L (55-170) 02/17/21 02:24 Total Protein 6.2 g/dL (6.3-8.2) L 03/14/21 07:24 Albumin 2.3 g/dL (3.9-5) L 03/14/21 07:24 Albumin/Globulin Ratio 0.6 % 03/14/21 07:24 TSH 0.986 mlU/mL (0.270-4.200) 02/17/21 02:24 Urine Color Yellow (Yellow) 02/17/21 Unknown Urine Turbidity Clear (Clear) 02/17/21 Unknown Urine pH 6.0 (5.0-7.0) 02/17/21 Unknown Ur Specific [place] 1.012 (1.003-1.030) 02/17/21 Unknown Urine Protein 100 mg/dl mg/dL (Negative) 02/17/21 Unknown Urine Glucose (UA) >=500 mg/dL (Negative) 02/17/21 Unknown Urine Ketones Neg mg/dL (Negative) 02/17/21 Unknown Urine Blood Neg (Negative) 02/17/21 Unknown Urine Nitrite Neg (Negative) 02/17/21 Unknown Urine Bilirubin Neg (Negative) 02/17/21 Unknown Urine Urobilinogen < 2.0 mg/dL (<2.0) 02/17/21 Unknown Ur Leukocyte Esterase Neg (Negative) 02/17/21 Unknown Urine WBC (Auto) 2.0 /HPF (0.0-6.0) 02/17/21 Unknown Urine RBC (Auto) 2.0 /HPF (0.0-6.0) 02/17/21 Unknown U Epithel Cells (Auto) < 1.0 /HPF (0-13.0) 02/17/21 Unknown Urine Bacteria (Auto) 1+ /HPF (Negative) 02/17/21 Unknown Salicylates < 0.3 mg/dL (2.8-20.0) L 02/17/21 02:24 Acetaminophen 5.0 ug/mL (10.0-30.0) L 02/17/21 02:24 Coronavirus (PCR) Positive (Negative) A 03/18/21 Unknown Hepatitis A IgM Ab Non-reactive (NonReactive) 02/28/21 12:37 Hep Bs Antigen Non-reactive (Negative) 02/28/21 12:37 Hep B Core IgM Ab Non-reactive (NonReactive) 02/28/21 12:37 Hepatitis C Antibody Non-reactive (NonReactive) 02/28/21 12:37 Blood Type A POSITIVE 03/07/21 06:31 Antibody Screen Negative 03/07/21 06:31 Crossmatch See Detail 03/07/21 06:31 Sr/IV: Voiding Method Incontinent Active Medications - Current Medications Current Medications: Generic Name Dose Route Start Last Admin Trade Name Freq PRN Reason Stop Dose Admin Acetaminophen 650 mg 02/18/21 22:38 03/09/21 13:15 Acetaminophen 325 Mg Tab PO 650 mg Q4H PRN Administration Pain MILD(1-3)/Fever >100.5/MOLINA Albuterol 2.5 mg 02/18/21 22:38 Albuterol 2.5 Mg/3 Ml Nebu IH Q3HRT PRN Shortness Of Breath Allopurinol 100 mg 02/20/21 10:00 03/25/21 10:50 Allopurinol 100 Mg Tab PO Not Given QDAY LEYLA Calcium Acetate 1,334 mg 02/20/21 08:30 03/25/21 18:23 Calcium Acetate 667 Mg Cap PO 1,334 mg TIDWM LEYLA Administration Dextrose 0 ml 02/18/21 23:00 02/25/21 16:56 Dextrose 50% In Water (25gm) 50 Ml Syringe IV 50 ml Q30MIN PRN Administration Hypoglycemia Protocol Diphenhydramine HCl 25 mg 02/23/21 09:10 03/24/21 09:01 Diphenhydramine 25 Mg Cap PO 25 mg BID PRN Administration Itching Famotidine 20 mg 02/19/21 10:00 03/25/21 10:50 Famotidine 20 Mg Tab PO Not Given QAM LEYLA Hydralazine HCl 10 mg 02/18/21 22:56 Hydralazine 20 Mg/1 Ml Inj IV Q6H PRN htn Hydroxyzine HCl 25 mg 03/24/21 10:38 Hydroxyzine Hcl 25 Mg Tab PO Q6H PRN Itching Sodium Chloride 100 mls @ 999 mls/hr 02/19/21 09:06 Nacl 0.9% IV OLIVIA PRN Hypotension Dextrose/Sodium Chloride 1,000 mls @ 50 mls/hr 03/12/21 15:00 03/19/21 20:31 D5/0.45ns IV 50 mls/hr DIRECT LEYLA Administration Insulin Glargine 16 units 03/23/21 09:00 03/25/21 22:47 Insulin Glargine 100 Units/Ml SUB-Q 16 units QHS LEYLA Administration Insulin Human Lispro 0 unit 03/09/21 22:00 03/26/21 08:24 Insulin Lispro 100 Unit/Ml SUB-Q Not Given [facility] Protocol Lactulose 20 gm 03/09/21 18:00 03/26/21 05:55 Lactulose 20 Gm/30 Ml Oral Liqd PO 20 gm Q6HR LEYLA Administration Ondansetron HCl 4 mg 02/18/21 22:38 02/28/21 12:32 Ondansetron 4 Mg/2 Ml Inj IV 4 mg Q8H PRN Administration Nausea And Vomiting Polyethylene Glycol 17 gm 02/24/21 12:08 02/24/21 12:47 Polyethylene Glycol 3350 17 Gm Powder PO 17 gm QDAY PRN Administration Constipation Propranolol HCl 20 mg 02/20/21 10:00 03/25/21 22:47 Propranolol 10 Mg Tab PO 20 mg BID LEYLA Administration Rifaximin 550 mg 03/10/21 12:00 03/25/21 22:15 Rifaximin 550 Mg Tab PO 550 mg BID LEYLA Administration Sodium Chloride 10 ml 02/19/21 10:00 03/25/21 22:49 Sodium Chloride 0.9% 10 Ml Flush Syringe IV Not Given BID LEYLA Sodium Chloride 10 ml 05/31/21 22:38 Sodium Chloride 0.9% 10 Ml Flush Syringe IV PRN PRN LINE FLUSH Tramadol HCl 50 mg 02/24/21 13:20 03/16/21 21:03 Tramadol 50 Mg Tab PO 50 mg Q6H PRN Administration Pain, Moderate (4-6) Zolpidem Tartrate 5 mg 02/24/21 09:54 03/08/21 23:25 Zolpidem 5 Mg Tab PO 5 mg QHS PRN Administration Sleep Nutrition/Malnutrition Assess - Dietary Evaluation Nutrition/Malnutrition Findings: Nutrition Notes Start: 02/19/21 10:48 Freq: Status: Active Protocol: Document 03/21/21 13:32 (Rec: 03/21/21 13:35 [email or web address]) Nutrition Notes Initial or Follow up Reassessment Current Diagnosis CKD (stage V CKD),Diabetes Other Pertinent Diagnosis COVID-19 (+), hepatic encephalopathy, ascites Current Diet Renal/Consistent CHO + Nepro once daily Labs/Tests POC BG 305 Pertinent Medications Phoslo Height 5 ft 11 in Weight 66.8 kg Albert Body Weight (kg) 78.18 BMI 20.5 Weight change and time frame wt fluctuations Weight Status Appropriate Subjective/Other Information FU for intakes. RN reports pt is back to eating 100% of meals and ONS. She states when he gets upset he won't eat for a few days to a week, but when he does eat, he will eat 100%. Percent of energy/protein needs met: 100%/100% Burn Absent Trauma Absent Current % PO Good (75-100%) Minimum of two criteria Yes Body Fat Depletion Mild depletion (non-severe) Fluid Accumulation Mild (non-severe) #2 Nutrition Diagnosis Increased nutrient needs ( specify in comment below) Diagnosis Progress(for reassessment Continues documentation) #1 Nutrition Diagnosis Malnutrition Diagnosis Progress(for reassessment Continues documentation) Is patient on ventilator? No Is Patient Ambulatory and/or Out of Bed No REE-([facility] [place]-confined to bed) [phone] Calculation Used for Recommendations [facility] Additional Notes Pro needs >1.2g/kg/day Fluid needs 1-1.5L/day Nutrition Intervention Change Diet Order: Continue current Add Supplement/Snack (indicate name/kcal Nepro daily /protein ) Provides kCal: 425 Provides Protein (gm) 19 Goal #1 PO intake of meals plus ONS to meet at least 75% energy and pro needs or start TF Goal #2 Wound healing Follow-Up By: 03/26/21 Additional Comments FU for intakes
[2021-03-26] MEDS: PROPRANOLOL 10 MG TAB PO SCH ×2 (09:55→22:57)
[2021-03-26] MEDS: CALCIUM ACETATE 667 MG CAP PO SCH ×3 (09:55→17:51)
[2021-03-26] MEDS: RIFAXIMIN 550 MG TAB PO SCH ×2 (09:56→22:57)
[2021-03-26] MEDS: allopurinoL 100 MG TAB PO SCH (09:56)
[2021-03-26] MEDS: FAMOTIDINE 20 MG TAB PO SCH (09:56)
[2021-03-26] MEDS: INSULIN GLARGINE 100 UNITS/ML SUB-Q SCH (22:57)
[2021-03-27] MEDS: LACTULOSE 20 GM/30 ML ORAL LIQD PO SCH ×4 (06:28→23:13)
--- NOTE | 2021-03-27 08:11 | Progress Note ---
Assessment and Plan 1. ESRD: Patient is on maintenance hemodialysis three times a week, MWF schedule. Meds dosage based on GFR. Missed HD 02/18. Hemodialysis: 02/19, 02/20, 02/22, 02/25, 02/27, 03/01, 03/04, 03/06, 03/08, 03/11, 03/13, 03/15, 03/18, 03/20, 03/22, 03/25, 03/27. 2. FEN: Hyperkalemia, improved. Monitor lytes and volume status. 3. Anemia, POA: 2/2 ESRD and Liver disease. Epogen with HD. PRBC as needed. 4. Cirrhosis with h/o hepatic encephalopathy: Lactulose and Rifaximin. Monitor. 5. DM type 2: SSI. Monitor. 6. Thrombocytopenia, POA. 7. Hypotension: BP is intermittently low especially while on hemodialysis. Started on Midodrine. Await placement. Subjective: Patient was seen and examined at the bedside. General Appearance: General appearance: well-developed, appears stated age, not in distress HEENT: ATNC, pupils equal Neck: trachea midline Respiratory: ctab Heart: regular, S1S2, no murmur Abdomen: soft, bowel sounds heard, slightly distended, not tender Integumentary: no rash, warm and dry Neurologic: lethargic, not following any command Ext: no edema, R BKA Hemodialysis access: R arm AVF Subjective Date of service: 03/27/21 Principal diagnosis: Acute renal failure Objective - Vital Signs Vital signs: Vital Signs - 12hr 03/26/21 03/27/21 22:40 04:29 Temperature 98.1 F 98.4 F Pulse Rate 76 64 Respiratory 18 20 Rate Blood Pressure 115/55 141/73 O2 Sat by Pulse 98 99 Oximetry - Lab 03/24/21 06:37 03/24/21 06:37 Most recent lab results Calcium 8.4 mg/dL (8.4-10.2) 03/24/21 06:37 Magnesium 2.10 mg/dL (1.7-2.3) 02/17/21 02:24 Medications & Allergies - Medications Allergies/Adverse Reactions: Allergies No Known Allergies Allergy (Verified 02/16/21 18:26) Home Medications: Home Medications Medication Instructions Recorded Confirmed Last Taken Type Calcium Acetate [Phoslo] 1,334 mg PO TIDWM #90 capsule 03/01/21 Unknown Rx Famotidine [Pepcid] 20 mg PO QAM #30 tablet 03/01/21 Unknown Rx Lactulose [Cephulac] 20 gm PO Q8HR 30 Days 03/01/21 Unknown Rx Lispro Insulin [HumaLOG] See Protocol SQ ACHS 30 Days 03/01/21 Unknown Rx allopurinoL [Zyloprim] 100 mg PO QDAY #30 tablet 03/01/21 Unknown Rx propranoloL [Inderal] 20 mg PO BID #60 tablet 03/01/21 Unknown Rx Active Medications: Generic Name Dose Route Start Last Admin Trade Name Freq PRN Reason Stop Dose Admin Acetaminophen 650 mg 02/18/21 22:38 03/09/21 13:15 Acetaminophen 325 Mg Tab PO 650 mg Q4H PRN Administration Pain MILD(1-3)/Fever >100.5/MOLINA Albuterol 2.5 mg 02/18/21 22:38 Albuterol 2.5 Mg/3 Ml Nebu IH Q3HRT PRN Shortness Of Breath Allopurinol 100 mg 02/20/21 10:00 03/26/21 09:56 Allopurinol 100 Mg Tab PO 100 mg QDAY LEYLA Administration Calcium Acetate 1,334 mg 02/20/21 08:30 03/26/21 17:51 Calcium Acetate 667 Mg Cap PO Not Given TIDWM LEYLA Dextrose 0 ml 02/18/21 23:00 02/25/21 16:56 Dextrose 50% In Water (25gm) 50 Ml Syringe IV 50 ml Q30MIN PRN Administration Hypoglycemia Protocol Diphenhydramine HCl 25 mg 02/23/21 09:10 03/24/21 09:01 Diphenhydramine 25 Mg Cap PO 25 mg BID PRN Administration Itching Famotidine 20 mg 02/19/21 10:00 03/26/21 09:56 Famotidine 20 Mg Tab PO 20 mg QAM LEYLA Administration Hydralazine HCl 10 mg 02/18/21 22:56 Hydralazine 20 Mg/1 Ml Inj IV Q6H PRN htn Hydroxyzine HCl 25 mg 03/24/21 10:38 Hydroxyzine Hcl 25 Mg Tab PO Q6H PRN Itching Sodium Chloride 100 mls @ 999 mls/hr 02/19/21 09:06 Nacl 0.9% IV OLIVIA PRN Hypotension Dextrose/Sodium Chloride 1,000 mls @ 50 mls/hr 03/12/21 15:00 03/19/21 20:31 D5/0.45ns IV 50 mls/hr DIRECT LEYLA Administration Insulin Glargine 16 units 03/23/21 09:00 03/26/21 22:57 Insulin Glargine 100 Units/Ml SUB-Q 16 units QHS LEYLA Administration Insulin Human Lispro 0 unit 03/09/21 22:00 03/26/21 22:57 Insulin Lispro 100 Unit/Ml SUB-Q 4 unit ACHS LEYLA Administration Protocol Lactulose 20 gm 03/09/21 18:00 03/27/21 06:28 Lactulose 20 Gm/30 Ml Oral Liqd PO 20 gm Q6HR LEYLA Administration Ondansetron HCl 4 mg 02/18/21 22:38 02/28/21 12:32 Ondansetron 4 Mg/2 Ml Inj IV 4 mg Q8H PRN Administration Nausea And Vomiting Polyethylene Glycol 17 gm 02/24/21 12:08 02/24/21 12:47 Polyethylene Glycol 3350 17 Gm Powder PO 17 gm QDAY PRN Administration Constipation Propranolol HCl 20 mg 02/20/21 10:00 03/26/21 22:57 Propranolol 10 Mg Tab PO 20 mg BID LEYLA Administration Rifaximin 550 mg 03/10/21 12:00 03/26/21 22:57 Rifaximin 550 Mg Tab PO 550 mg BID ELYLA Administration Sodium Chloride 10 ml 02/19/21 10:00 03/26/21 23:36 Sodium Chloride 0.9% 10 Ml Flush Syringe IV Not Given BID LEYLA Sodium Chloride 10 ml 02/18/21 22:38 Sodium Chloride 0.9% 10 Ml Flush Syringe IV PRN PRN LINE FLUSH Tramadol HCl 50 mg 02/24/21 13:20 03/16/21 21:03 Tramadol 50 Mg Tab PO 50 mg Q6H PRN Administration Pain, Moderate (4-6) Zolpidem Tartrate 5 mg 02/24/21 09:54 03/08/21 23:25 Zolpidem 5 Mg Tab PO 5 mg QHS PRN Administration Sleep
--- NOTE | 2021-03-27 08:15 | Progress Note ---
Assessment and Plan Assessment and plan: 55 YO Male with ESRD on HD, Noncompliance with outpatient dialysis, Anemia, HBV, Chronic Liver Disease, Cirrhosis complicated by Esophageal Varices, HTN, Debility, DM presents to ED with confusion with diminished cognition. Patient family report the patient was "not acting like himself" and found to have worsening confusion over the past 2 days. In the ER the patient was found to have hepatic encephalopathy complicated by diminished cognition, end-stage renal disease in need of urgent dialysis, as well as uncontrolled diabetes, and acidosis. -- Hepatic encephalopathy -Patient alert and oriented x3. due to hepatic cirrhosis has resolved cont lactulose, Neuro check, seizure precaution, aspiration precaution, fall precautions, continue to monitor. -Diarrhea resolved was secondary to lactulose. Patient is alert no encephalopathy. -- End stage renal disease Nephrology team consulted, strict I's/O, monitor urine output every shift, dialysis as per renal team, avoid nephrotoxic agents. Await dialysis center. Still no dialysis center. We will dialyze as indicated. --Metabolic Acidosis Nephrology team consulted, dialysis as per renal team. --Hyponatremia Monitor BMP, monitor fluid balance.-Does not require to be checked today we will check every other day now. -- Hyperammonemia Continue lactulose --Pruritus Add Atarax most likely secondary to liver failure --Diabetes mellitus with hyperglycemia Consistent carb diet, SSI -- hyperkalemia, Improvement with dialysis --Ascites, s/p paracentesis drained 6.2l of ascitic fluid -no further ascites at this time. --Sacral wound, pain control continue local wound care. -- Moderate Protein Calorie Malnutrition, nutrition consulted --Noncompliance, counseled for medication compliance --Depression discussed about depression and initiation of Zoloft /1: Resume dialysis will adjust insulin for better coverage. Very poor prognos is considering poor medical compliance. Agree with hospice recommendation. Will obtain wound care to continue to manage. Monitor anemia as patient was pretty anemic during the last hospitalization. Required transfusion. 02/20: Continues to undergo dialysis no change in mental status noted. Tolerating medications. Blood sugar mildly elevated adjusted insulin yesterday when awake for the patient received a dose today and if still elevated will adjust. Again case management is working on discharge plan for this patient as he is pending placement 02/21 patient complains of right hip pain. He said he fell few weeks ago and is concerned about another fracture. He had a fracture about 8 weeks ago and had surgery. Will obtain X ray right hip. Patient pending placement. 02/22 Patient seen in Dialysis Unit. He states hip pain improved. No other complaints. Right hip X ray done yesterday report read may be healing fracture or acute fracture. Will discuss with Orthopedic Surgeon Patient pending placement 02/23 Less hip pain. Today complains of generalized itching. Will start Benadryl po prn. Orthopedic consulted to evaluate right hip. Patient pending placement 02/24 Less hip pain. Generalized itching now resolved. Orthopedic consulted to evaluate right hip. He complains of sleeplessness. Will give Ambien prn Patient pending placement 02/25 Patient requested DNR status yesterday. I discussed with him and he signed forms. He also complains of worsening abdominal distension and requested tap ping, Will order paracentesis. Right hip evaluated by Dr. Trivedi and conservative management recommended. 02/26: Plan for paracentesis today. Need to set up dialysis as outpatient. shift nurse manager working on discharge planning. 02/27: Patient did not sign the consent for paracentesis yesterday so paracentesis was done today and aspirated 6.2L ascitic fluid. Patient refusing medication per RN. Getting dialysis. Patient noted slightly altered today, will place NG tube remains altered and keep refusing oral meds, order for ammonia level and will cont lactulose. 02/28: Patient appears much more calm and cooperative today. He stated that he has been refusing procedure and medication as he believes he was not in the right state of his mind. Patient acknowledges the importance of being compliant and he promises that he will take the medications as he will be given. Discharge planning per case management as patient would need outpatient dialysis center set up and personal fci set up. 03/01/21: Patient has jail setting but according to case finisher no available RN to accept the patient till Thursday. Continue supportive care. Discharge pending on placement. 03/02/21 -03/04/21: Discharge pending on placement, continue to monitor clinically. Continue current management and plan and supportive care. Patient need SNF placement. 03/05/2021; Awaiting SNF placement for discharge. Prognosis is very poor. Patient is nonresponsive. I try to reach to his son over the phone but could not get in touch. Patient is appropriate for hospice care. 03/06/2021; patient is awaiting SNF placement. Patient was alert and oriented. No confusion. Patient is stable to be discharged back to SNF. 03/07/2021; patient has hemoglobin of 6.8 this morning. A unit of blood ordered. Will monitor H&H. Nephrology is following for dialysis. 03/08/2021; patient's hemoglobin was 6.8 yesterday and transfused a unit of blood. I ordered yesterday to do posttransfusion H&H and was not done. CBC was ordered to be done this morning but was not done. COVID-19 test was done on 03/06 and positive. Nephrology is following the patient for his dialysis. Plan is to discharge him to SNF. Will follow with case management because patient is Covid positive. 03/09/2021; patient's repeat Covid test on 03/08/2021 was positive. Patient is pending for SNF Placement. Patient had hypoglycemia yesterday and patient was placed on Lantus and his sliding scale adjusted to high dose. Will monitor and adjust as needed. 03/10/2021; pending SNF placement. Covid test was positive on and . 03/11/2021; patient has hepatic encephalopathy and his ammonia level is very high, patient is currently on lactulose and rifaximin. Ammonia level is trending down. Nephrology is following for dialysis. Patient has positive Covid test last one was on 03/08, that makes placement difficult. Continue with case management. 03/12: Still awaiting placement, discussed with nursing staff to monitor mental status changes. Will check ammonia level. Continue to adjust blood sugar. Complicated by COVID POSITIVELY. Awaiting placement for the patient. Also dialysis chair time. I have discussed with case management as my understanding was that patient was to go for hospice but this plan appears to have changed possibly not clear to me at this time 03/13: Continue supportive care crush medications that can be crushed. Ammonia level is elevated but not as elevated as previously. Continue lactulose advised nursing staff that this should be given as ordered to communicate with the night team also. Unfortunately when the patient gets better he refuses his lactulose. I truly believe that we should strongly consider palliative care for this patient but nevertheless if he wants to continue dialysis and will be compliant with his medications this is definitely an option can be pursued. Aspiration precautions monitor hemoglobin and platelets. 03/14: Patient seen and examined, more awake today. Continue supportive care, patient was made DNR wade, signed the form today after confirming the patient and also the physician. Monitor for fever. AWAITING PLACEMENT. poor prognosis 03/15/21 Patient is seen and examined. Lab and medication reviewed. Patient denied any chest pain or shortness of breath. Patient is more awake alert today. Patient is getting them hemodialysis today. Continue current management. Awaiting placement. 03/16/21 patient seen and examined. Lab and medication reviewed. Patient feels better. Hemoglobin 8.2 and hematocrit 23.9. Complained of pain in the butt. No other complain. Continue current management and supportive care. Patient is waiting for placement. 03/17: Patient remains with poor prognosis refusing dietary intake. Again discussed hospice and palliative care management considering his current medical condition and declining poor prognostic factors. Discussed with nursing staff patient will continue with lactulose had refused this morning but did take it yesterday. Continue aspiration precautions. Discussed the importance of taking the medication the patient verbalized understanding 03/18: Patient undergoing HD discharge planning ongoing discussed with case management team. Covid test ordered today for placement purposes. 03/19/2021; Covid test was ordered and result is pending. Pending placement. 03/20/2021; patient's Covid test was positive again on 03/20/2021. Pending placement. 03/21/2021. Patient cooperative no acute distress at this time. Complains of loose stool diarrhea. Still awaiting placement. Unable to find hemodialysis placement 03/22/2021. Patient last Covid test was positive however initial test was greater than 14 days ago. Patient is no longer infected. Unable to find hemodialysis line at present. Patient being evaluated for [facility]. 03/23/2021. Patient continues to state he feels good much better at this time. Resting comfortably. No distress noted. Still awaiting hemodialysis center. 03/24/2021 patient with flat mood discussed about depression. Resting comfortably watching TV. 03/25/2021. Patient denies depression at this time. Complains of itching all over. When am i getting out of here 03/26/2021. Case management reports patient is still awaiting hemodialysis placem ent 03/27/2021. Case management reports patient is still awaiting hemodialysis placement. Patient is on maintenance hemodialysis three times a week, MWF schedule. Cont. Lactulose and Rifaximin. Epogen with HD. History Interval history: No new issues Hospitalist Physical - Constitutional Vitals: Temp Pulse Resp BP Pulse Ox 98.4 F 64 20 141/73 99 03/27/21 04:29 03/27/21 04:29 03/27/21 04:29 03/27/21 04:29 03/27/21 04:29 General appearance: Present: cachectic, other (Temporal wasting) - EENT Eyes: Present: PERRL, EOM intact ENT: hearing intact, clear oral mucosa, dentition normal - Neck Neck: Present: supple, normal ROM - Respiratory Respiratory effort: normal Respiratory: bilateral: CTA - Cardiovascular Rhythm: regular Heart Sounds: Present: S1 & S2. Absent: gallop, rub - Extremities Extremities: no ischemia, No edema, Full ROM - Abdominal General gastrointestinal: soft, non-tender, non-distended, normal bowel sounds - Integumentary Integumentary: Present: clear, warm, dry - Neurologic Neurologic: CNII-XII intact, moves all extremities Results - Labs CBC & Chem 7: 03/24/21 06:37 03/24/21 06:37 Labs: Laboratory Last Values WBC 4.5 K/mm3 (4.5-11.0) 03/24/21 06:37 RBC 2.53 M/mm3 (3.65-5.03) L 03/24/21 06:37 Hgb 7.8 gm/dl (11.8-15.2) L 03/24/21 06:37 Hct 22.6 % (35.5-45.6) L 03/24/21 06:37 MCV 90 fl (84-94) 03/24/21 06:37 MCH 31 pg (28-32) 03/24/21 06:37 MCHC 35 % (32-34) H 03/24/21 06:37 RDW 15.2 % (13.2-15.2) 03/24/21 06:37 Plt Count 147 K/mm3 (140-440) 03/24/21 06:37 Lymph % (Auto) 13.3 % (13.4-35.0) L 03/24/21 06:37 [place] % (Auto) 10.9 % (0.0-7.3) H 03/24/21 06:37 Eos % (Auto) 1.7 % (0.0-4.3) 03/24/21 06:37 Baso % (Auto) 0.9 % (0.0-1.8) 03/24/21 06:37 Lymph # (Auto) 0.6 K/mm3 (1.2-5.4) L 03/24/21 06:37 [place] # (Auto) 0.5 K/mm3 (0.0-0.8) 03/24/21 06:37 Eos # (Auto) 0.1 K/mm3 (0.0-0.4) 03/24/21 06:37 Baso # (Auto) 0.0 K/mm3 (0.0-0.1) 03/24/21 06:37 Add Manual Diff Complete 03/07/21 05:23 Total Counted 100 03/07/21 05:23 Seg Neutrophils % 73.2 % (40.0-70.0) H 03/24/21 06:37 Seg Neuts % (Manual) 78.0 % (40.0-70.0) H 03/07/21 05:23 Lymphocytes % (Manual) 13.0 % (13.4-35.0) L 03/07/21 05:23 Monocytes % (Manual) 9.0 % (0.0-7.3) H 03/07/21 05:23 Nucleated RBC % Not Reportable 03/07/21 05:23 Seg Neutrophils # 3.3 K/mm3 (1.8-7.7) 03/24/21 06:37 Seg Neutrophils # Man 2.0 K/mm3 (1.8-7.7) 03/07/21 05:23 Band Neutrophils # 0.0 K/mm3 03/07/21 05:23 Lymphocytes # (Manual) 0.3 K/mm3 (1.2-5.4) L 03/07/21 05:23 Abs React Lymphs (Man) 0.0 K/mm3 03/07/21 05:23 Monocytes # (Manual) 0.2 K/mm3 (0.0-0.8) 03/07/21 05:23 Eosinophils # (Manual) 0.0 K/mm3 (0.0-0.4) 03/07/21 05:23 Basophils # (Manual) 0.0 K/mm3 (0.0-0.1) 03/07/21 05:23 Metamyelocytes # 0.0 K/mm3 03/07/21 05:23 Myelocytes # 0.0 K/mm3 03/07/21 05:23 Promyelocytes # 0.0 K/mm3 03/07/21 05:23 Blast Cells # 0.0 K/mm3 03/07/21 05:23 WBC Morphology Not Reportable 03/07/21 05:23 Hypersegmented Neuts Not Reportable 03/07/21 05:23 Hyposegmented Neuts Not Reportable 03/07/21 05:23 Hypogranular Neuts Not Reportable 03/07/21 05:23 Smudge Cells Not Reportable 03/07/21 05:23 Toxic Granulation Not Reportable 03/07/21 05:23 Toxic Vacuolation Not Reportable 03/07/21 05:23 Dohle Bodies Not Reportable 03/07/21 05:23 Pelger-Huet Anomaly Not Reportable 03/07/21 05:23 Cosme Rods Not Reportable 03/07/21 05:23 Platelet Estimate Consistent w auto 03/07/21 05:23 Clumped Platelets Not Reportable 03/07/21 05:23 Plt Clumps, EDTA Not Reportable 03/07/21 05:23 Large Platelets Not Reportable 03/07/21 05:23 Giant Platelets Not Reportable 03/07/21 05:23 Platelet Satelliting Not Reportable 03/07/21 05:23 Plt Morphology Comment Not Reportable 03/07/21 05:23 RBC Morphology Not Reportable 03/07/21 05:23 Dimorphic RBCs Not Reportable 03/07/21 05:23 Polychromasia Not Reportable 03/07/21 05:23 Hypochromasia Not Reportable 03/07/21 05:23 Poikilocytosis Not Reportable 03/07/21 05:23 Anisocytosis Few 03/07/21 05:23 Microcytosis Not Reportable 03/07/21 05:23 Macrocytosis Not Reportable 03/07/21 05:23 Spherocytes Not Reportable 03/07/21 05:23 Pappenheimer Bodies Not Reportable 03/07/21 05:23 Sickle Cells Not Reportable 03/07/21 05:23 Target Cells Not Reportable 03/07/21 05:23 Tear Drop Cells Not Reportable 03/07/21 05:23 Ovalocytes Not Reportable 03/07/21 05:23 Helmet Cells Not Reportable 03/07/21 05:23 [place] Bodies Not Reportable 03/07/21 05:23 [place] Rings Not Reportable 03/07/21 05:23 [place] Cells Not Reportable 03/07/21 05:23 Bite Cells Not Reportable 03/07/21 05:23 Crenated Cell Not Reportable 03/07/21 05:23 Elliptocytes Not Reportable 03/07/21 05:23 Acanthocytes (Spur) Not Reportable 03/07/21 05:23 Rouleaux Not Reportable 03/07/21 05:23 Hemoglobin C Crystals Not Reportable 03/07/21 05:23 Schistocytes Not Reportable 03/07/21 05:23 Malaria parasites Not Reportable 03/07/21 05:23 Samir Bodies Not Reportable 03/07/21 05:23 Hem Pathologist Commnt No 03/07/21 05:23 PT 13.7 Sec. (12.2-14.9) 02/26/21 04:33 INR 1.00 (0.87-1.13) 02/26/21 04:33 Sodium 137 mmol/L (137-145) 03/24/21 06:37 Potassium 3.3 mmol/L (3.6-5.0) L 03/24/21 06:37 Chloride 96.7 mmol/L (98-107) L 03/24/21 06:37 Carbon Dioxide 31 mmol/L (22-30) H 03/24/21 06:37 Anion Gap 13 mmol/L 03/24/21 06:37 BUN 45 mg/dL (9-20) H 03/24/21 06:37 Creatinine 6.1 mg/dL (0.8-1.3) H 03/24/21 06:37 Estimated GFR 10 ml/min 03/24/21 06:37 BUN/Creatinine Ratio 7 % 03/24/21 06:37 Glucose 136 mg/dL (75-100) H 03/24/21 06:37 POC Glucose 69 mg/dL (70-105) L 03/27/21 08:07 Hemoglobin A1c 7.4 % (4-6) H 02/26/21 04:33 Calcium 8.4 mg/dL (8.4-10.2) 03/24/21 06:37 Magnesium 2.10 mg/dL (1.7-2.3) 02/17/21 02:24 Total Bilirubin 0.60 mg/dL (0.1-1.2) 03/14/21 07:24 Direct Bilirubin 0.3 mg/dL (0-0.2) H 03/14/21 07:24 Indirect Bilirubin 0.3 mg/dL 03/14/21 07:24 AST 57 units/L (5-40) H 03/14/21 07:24 ALT 24 units/L (7-56) 03/14/21 07:24 Alkaline Phosphatase 179 units/L (35-129) H 03/14/21 07:24 Ammonia 30.0 umol/L (25-60) 03/14/21 07:24 Total Creatine Kinase 86 units/L (55-170) 02/17/21 02:24 Total Protein 6.2 g/dL (6.3-8.2) L 03/14/21 07:24 Albumin 2.3 g/dL (3.9-5) L 03/14/21 07:24 Albumin/Globulin Ratio 0.6 % 03/14/21 07:24 TSH 0.986 mlU/mL (0.270-4.200) 02/17/21 02:24 Urine Color Yellow (Yellow) 02/17/21 Unknown Urine Turbidity Clear (Clear) 02/17/21 Unknown Urine pH 6.0 (5.0-7.0) 02/17/21 Unknown Ur Specific [place] 1.012 (1.003-1.030) 02/17/21 Unknown Urine Protein 100 mg/dl mg/dL (Negative) 02/17/21 Unknown Urine Glucose (UA) >=500 mg/dL (Negative) 02/17/21 Unknown Urine Ketones Neg mg/dL (Negative) 02/17/21 Unknown Urine Blood Neg (Negative) 02/17/21 Unknown Urine Nitrite Neg (Negative) 02/17/21 Unknown Urine Bilirubin Neg (Negative) 02/17/21 Unknown Urine Urobilinogen < 2.0 mg/dL (<2.0) 02/17/21 Unknown Ur Leukocyte Esterase Neg (Negative) 02/17/21 Unknown Urine WBC (Auto) 2.0 /HPF (0.0-6.0) 02/17/21 Unknown Urine RBC (Auto) 2.0 /HPF (0.0-6.0) 02/17/21 Unknown U Epithel Cells (Auto) < 1.0 /HPF (0-13.0) 02/17/21 Unknown Urine Bacteria (Auto) 1+ /HPF (Negative) 02/17/21 Unknown Salicylates < 0.3 mg/dL (2.8-20.0) L 02/17/21 02:24 Acetaminophen 5.0 ug/mL (10.0-30.0) L 02/17/21 02:24 Coronavirus (PCR) Positive (Negative) A 03/18/21 Unknown Hepatitis A IgM Ab Non-reactive (NonReactive) 02/28/21 12:37 Hep Bs Antigen Non-reactive (Negative) 02/28/21 12:37 Hep B Core IgM Ab Non-reactive (NonReactive) 02/28/21 12:37 Hepatitis C Antibody Non-reactive (NonReactive) 02/28/21 12:37 Blood Type A POSITIVE 03/07/21 06:31 Antibody Screen Negative 03/07/21 06:31 Crossmatch See Detail 03/07/21 06:31 Sr/IV: Voiding Method Incontinent Active Medications - Current Medications Current Medications: Generic Name Dose Route Start Last Admin Trade Name Freq PRN Reason Stop Dose Admin Acetaminophen 650 mg 02/18/21 22:38 03/09/21 13:15 Acetaminophen 325 Mg Tab PO 650 mg Q4H PRN Administration Pain MILD(1-3)/Fever >100.5/MOLINA Albuterol 2.5 mg 02/18/21 22:38 Albuterol 2.5 Mg/3 Ml Nebu IH Q3HRT PRN Shortness Of Breath Allopurinol 100 mg 02/20/21 10:00 03/26/21 09:56 Allopurinol 100 Mg Tab PO 100 mg QDAY LEYLA Administration Calcium Acetate 1,334 mg 02/20/21 08:30 03/26/21 17:51 Calcium Acetate 667 Mg Cap PO Not Given TIDWM LEYLA Dextrose 0 ml 02/18/21 23:00 02/25/21 16:56 Dextrose 50% In Water (25gm) 50 Ml Syringe IV 50 ml Q30MIN PRN Administration Hypoglycemia Protocol Diphenhydramine HCl 25 mg 02/23/21 09:10 03/24/21 09:01 Diphenhydramine 25 Mg Cap PO 25 mg BID PRN Administration Itching Famotidine 20 mg 02/19/21 10:00 03/26/21 09:56 Famotidine 20 Mg Tab PO 20 mg QAM LEYLA Administration Hydralazine HCl 10 mg 02/18/21 22:56 Hydralazine 20 Mg/1 Ml Inj IV Q6H PRN htn Hydroxyzine HCl 25 mg 03/24/21 10:38 Hydroxyzine Hcl 25 Mg Tab PO Q6H PRN Itching Sodium Chloride 100 mls @ 999 mls/hr 02/19/21 09:06 Nacl 0.9% IV OLIVIA PRN Hypotension Dextrose/Sodium Chloride 1,000 mls @ 50 mls/hr 03/12/21 15:00 03/19/21 20:31 D5/0.45ns IV 50 mls/hr DIRECT LEYLA Administration Insulin Glargine 16 units 03/23/21 09:00 03/26/21 22:57 Insulin Glargine 100 Units/Ml SUB-Q 16 units QHS LEYLA Administration Insulin Human Lispro 0 unit 03/09/21 22:00 03/26/21 22:57 Insulin Lispro 100 Unit/Ml SUB-Q 4 unit ACHS LEYLA Administration Protocol Lactulose 20 gm 03/09/21 18:00 03/27/21 06:28 Lactulose 20 Gm/30 Ml Oral Liqd PO 20 gm Q6HR LEYLA Administration Ondansetron HCl 4 mg 02/18/21 22:38 02/28/21 12:32 Ondansetron 4 Mg/2 Ml Inj IV 4 mg Q8H PRN Administration Nausea And Vomiting Polyethylene Glycol 17 gm 02/24/21 12:08 02/24/21 12:47 Polyethylene Glycol 3350 17 Gm Powder PO 17 gm QDAY PRN Administration Constipation Propranolol HCl 20 mg 02/20/21 10:00 03/26/21 22:57 Propranolol 10 Mg Tab PO 20 mg BID LEYLA Administration Rifaximin 550 mg 03/10/21 12:00 03/26/21 22:57 Rifaximin 550 Mg Tab PO 550 mg BID LEYLA Administration Sodium Chloride 10 ml 02/19/21 10:00 03/26/21 23:36 Sodium Chloride 0.9% 10 Ml Flush Syringe IV Not Given BID LEYLA Sodium Chloride 10 ml 02/18/21 22:38 Sodium Chloride 0.9% 10 Ml Flush Syringe IV PRN PRN LINE FLUSH Tramadol HCl 50 mg 02/24/21 13:20 03/16/21 21:03 Tramadol 50 Mg Tab PO 50 mg Q6H PRN Administration Pain, Moderate (4-6) Zolpidem Tartrate 5 mg 02/24/21 09:54 03/08/21 23:25 Zolpidem 5 Mg Tab PO 5 mg QHS PRN Administration Sleep Nutrition/Malnutrition Assess - Dietary Evaluation Nutrition/Malnutrition Findings: Nutrition Notes Start: 02/19/21 10:48 Freq: Status: Active Protocol: Document 03/26/21 14:42 CW (Rec: 03/26/21 14:47 CW [id number]) Nutrition Notes Initial or Follow up Reassessment Current Diagnosis CKD (stage V CKD),Diabetes Other Pertinent Diagnosis COVID-19 (+), hepatic encephalopathy, ascites Current Diet Renal/Consistent CHO + Nepro once daily Labs/Tests 03/24 K 3.3 BUN 45 Cr 6.1 BG 136 Pertinent Medications Lactulose Humalog Phoslo Height 5 ft 11 in Weight 66.8 kg [place] Body Weight (kg) 78.18 BMI 20.5 Weight Status Appropriate Subjective/Other Information F/U for intakes. Per chart pt eating 50% of meals. RN reports that pt ate a little over 50% at lunch. Pt did not answer phone at this time. RN unsure about ONS. Percent of energy/protein needs met: 57%/46% (without ONS) Burn Absent Trauma Absent Current % PO Fair (50-74%) Minimum of two criteria Yes Body Fat Depletion Mild depletion (non-severe) Fluid Accumulation Mild (non-severe) #2 Nutrition Diagnosis Increased nutrient needs ( specify in comment below) Diagnosis Progress(for reassessment Continues documentation) #1 Nutrition Diagnosis Malnutrition Diagnosis Progress(for reassessment Continues documentation) Is patient on ventilator? No Is Patient Ambulatory and/or Out of Bed No REE-(Lander-St. Jeor-confined to bed) 7630.247 Calculation Used for Recommendations Lander-St Jeor Additional Notes Pro needs >1.2g/kg/day Fluid needs 1-1.5L/day Nutrition Intervention Change Diet Order: Continue current Add Supplement/Snack (indicate name/kcal Nepro daily /protein ) Provides kCal: 425 Provides Protein (gm) 19 Goal #1 PO intake of meals plus ONS to meet at least 75% energy and pro needs Goal #2 Wound healing Follow-Up By: 03/29/21 Additional Comments F/U for stable intakes and ONS tolerance
[2021-03-27] MEDS: INSULIN LISPRO 100 UNIT/ML SUB-Q SCH ×4 (08:17→22:32)
[2021-03-27] MEDS: PROPRANOLOL 10 MG TAB PO SCH ×2 (09:55→23:12)
[2021-03-27] MEDS: allopurinoL 100 MG TAB PO SCH (09:55)
[2021-03-27] MEDS: FAMOTIDINE 20 MG TAB PO SCH (09:55)
[2021-03-27] MEDS: RIFAXIMIN 550 MG TAB PO SCH ×2 (09:55→23:11)
[2021-03-27] MEDS: CALCIUM ACETATE 667 MG CAP PO SCH ×3 (09:55→18:31)
[2021-03-27] MEDS ORDERED: POTASSIUM CHLORIDE ER 20 MEQ TAB PO ONE (21:30)
[2021-03-27] MEDS: INSULIN GLARGINE 100 UNITS/ML SUB-Q SCH (22:31)
[2021-03-27] MEDS: MIDODRINE 5 MG TAB PO SCH (23:12)
[2021-03-28] MEDS: LACTULOSE 20 GM/30 ML ORAL LIQD PO SCH ×3 (06:40→17:12)
[2021-03-28] MEDS: INSULIN LISPRO 100 UNIT/ML SUB-Q SCH ×4 (07:30→22:03)
[2021-03-28] MEDS: CALCIUM ACETATE 667 MG CAP PO SCH ×3 (08:00→17:11)
[2021-03-28 08:23] LABS: Calcium 8.4 mg/dL (8.4-10.2)
--- NOTE | 2021-03-28 09:09 | Progress Note ---
Assessment and Plan Assessment and plan: 55 YO Male with ESRD on HD, Noncompliance with outpatient dialysis, Anemia, HBV, Chronic Liver Disease, Cirrhosis complicated by Esophageal Varices, HTN, Debility, DM presents to ED with confusion with diminished cognition. Patient family report the patient was "not acting like himself" and found to have worsening confusion over the past 2 days. In the ER the patient was found to have hepatic encephalopathy complicated by diminished cognition, end-stage renal disease in need of urgent dialysis, as well as uncontrolled diabetes, and acidosis. -- Hepatic encephalopathy -Patient alert and oriented x3. due to hepatic cirrhosis has resolved cont lactulose, Neuro check, seizure precaution, aspiration precaution, fall precautions, continue to monitor. -Diarrhea resolved was secondary to lactulose. Patient is alert no encephalopathy. -- End stage renal disease Nephrology team consulted, strict I's/O, monitor urine output every shift, dialysis as per renal team, avoid nephrotoxic agents. Await dialysis center. Still no dialysis center. We will dialyze as indicated. --Metabolic Acidosis Nephrology team consulted, dialysis as per renal team. --Hyponatremia Monitor BMP, monitor fluid balance.-Does not require to be checked today we will check every other day now. -- Hyperammonemia Continue lactulose --Pruritus Add Atarax most likely secondary to liver failure --Diabetes mellitus with hyperglycemia Consistent carb diet, SSI -- hyperkalemia, Improvement with dialysis --Ascites, s/p paracentesis drained 6.2l of ascitic fluid -no further ascites at this time. --Sacral wound, pain control continue local wound care. -- Moderate Protein Calorie Malnutrition, nutrition consulted --Noncompliance, counseled for medication compliance --Depression discussed about depression and initiation of Zoloft /1: Resume dialysis will adjust insulin for better coverage. Very poor prognos is considering poor medical compliance. Agree with hospice recommendation. Will obtain wound care to continue to manage. Monitor anemia as patient was pretty anemic during the last hospitalization. Required transfusion. 02/20: Continues to undergo dialysis no change in mental status noted. Tolerating medications. Blood sugar mildly elevated adjusted insulin yesterday when awake for the patient received a dose today and if still elevated will adjust. Again case management is working on discharge plan for this patient as he is pending placement 02/21 patient complains of right hip pain. He said he fell few weeks ago and is concerned about another fracture. He had a fracture about 8 weeks ago and had surgery. Will obtain X ray right hip. Patient pending placement. 02/22 Patient seen in Dialysis Unit. He states hip pain improved. No other complaints. Right hip X ray done yesterday report read may be healing fracture or acute fracture. Will discuss with Orthopedic Surgeon Patient pending placement 02/23 Less hip pain. Today complains of generalized itching. Will start Benadryl po prn. Orthopedic consulted to evaluate right hip. Patient pending placement 02/24 Less hip pain. Generalized itching now resolved. Orthopedic consulted to evaluate right hip. He complains of sleeplessness. Will give Ambien prn Patient pending placement 02/25 Patient requested DNR status yesterday. I discussed with him and he signed forms. He also complains of worsening abdominal distension and requested tap ping, Will order paracentesis. Right hip evaluated by Dr. Trivedi and conservative management recommended. 02/26: Plan for paracentesis today. Need to set up dialysis as outpatient. manager ed working on discharge planning. 02/27: Patient did not sign the consent for paracentesis yesterday so paracentesis was done today and aspirated 6.2L ascitic fluid. Patient refusing medication per RN. Getting dialysis. Patient noted slightly altered today, will place NG tube remains altered and keep refusing oral meds, order for ammonia level and will cont lactulose. 02/28: Patient appears much more calm and cooperative today. He stated that he has been refusing procedure and medication as he believes he was not in the right state of his mind. Patient acknowledges the importance of being compliant and he promises that he will take the medications as he will be given. Discharge planning per case management as patient would need outpatient dialysis center set up and personal snf set up. 03/01/21: Patient has group home setting but according to spring encaser no available RN to accept the patient till Thursday. Continue supportive care. Discharge pending on placement. 03/02/21 -03/04/21: Discharge pending on placement, continue to monitor clinically. Continue current management and plan and supportive care. Patient need SNF placement. 03/05/2021; Awaiting SNF placement for discharge. Prognosis is very poor. Patient is nonresponsive. I try to reach to his son over the phone but could not get in touch. Patient is appropriate for hospice care. 03/06/2021; patient is awaiting SNF placement. Patient was alert and oriented. No confusion. Patient is stable to be discharged back to SNF. 03/07/2021; patient has hemoglobin of 6.8 this morning. A unit of blood ordered. Will monitor H&H. Nephrology is following for dialysis. 03/08/2021; patient's hemoglobin was 6.8 yesterday and transfused a unit of blood. I ordered yesterday to do posttransfusion H&H and was not done. CBC was ordered to be done this morning but was not done. COVID-19 test was done on 03/06 and positive. Nephrology is following the patient for his dialysis. Plan is to discharge him to SNF. Will follow with case management because patient is Covid positive. 03/09/2021; patient's repeat Covid test on 03/08/2021 was positive. Patient is pending for SNF Placement. Patient had hypoglycemia yesterday and patient was placed on Lantus and his sliding scale adjusted to high dose. Will monitor and adjust as needed. 03/10/2021; pending SNF placement. Covid test was positive on and . 03/11/2021; patient has hepatic encephalopathy and his ammonia level is very high, patient is currently on lactulose and rifaximin. Ammonia level is trending down. Nephrology is following for dialysis. Patient has positive Covid test last one was on 03/08, that makes placement difficult. Continue with case management. 03/12: Still awaiting placement, discussed with nursing staff to monitor mental status changes. Will check ammonia level. Continue to adjust blood sugar. Complicated by COVID POSITIVELY. Awaiting placement for the patient. Also dialysis chair time. I have discussed with case management as my understanding was that patient was to go for hospice but this plan appears to have changed possibly not clear to me at this time 03/13: Continue supportive care crush medications that can be crushed. Ammonia level is elevated but not as elevated as previously. Continue lactulose advised nursing staff that this should be given as ordered to communicate with the night team also. Unfortunately when the patient gets better he refuses his lactulose. I truly believe that we should strongly consider palliative care for this patient but nevertheless if he wants to continue dialysis and will be compliant with his medications this is definitely an option can be pursued. Aspiration precautions monitor hemoglobin and platelets. 03/14: Patient seen and examined, more awake today. Continue supportive care, patient was made DNR wade, signed the form today after confirming the patient and also the physician. Monitor for fever. AWAITING PLACEMENT. poor prognosis 03/15/21 Patient is seen and examined. Lab and medication reviewed. Patient denied any chest pain or shortness of breath. Patient is more awake alert today. Patient is getting them hemodialysis today. Continue current management. Awaiting placement. 03/16/21 patient seen and examined. Lab and medication reviewed. Patient feels better. Hemoglobin 8.2 and hematocrit 23.9. Complained of pain in the butt. No other complain. Continue current management and supportive care. Patient is waiting for placement. 03/17: Patient remains with poor prognosis refusing dietary intake. Again discussed hospice and palliative care management considering his current medical condition and declining poor prognostic factors. Discussed with nursing staff patient will continue with lactulose had refused this morning but did take it yesterday. Continue aspiration precautions. Discussed the importance of taking the medication the patient verbalized understanding 03/18: Patient undergoing HD discharge planning ongoing discussed with case management team. Covid test ordered today for placement purposes. 03/19/2021; Covid test was ordered and result is pending. Pending placement. 03/20/2021; patient's Covid test was positive again on 03/20/2021. Pending placement. 03/21/2021. Patient cooperative no acute distress at this time. Complains of loose stool diarrhea. Still awaiting placement. Unable to find hemodialysis placement 03/22/2021. Patient last Covid test was positive however initial test was greater than 14 days ago. Patient is no longer infected. Unable to find hemodialysis line at present. Patient being evaluated for [facility]. 03/23/2021. Patient continues to state he feels good much better at this time. Resting comfortably. No distress noted. Still awaiting hemodialysis center. 03/24/2021 patient with flat mood discussed about depression. Resting comfortably watching TV. 03/25/2021. Patient denies depression at this time. Complains of itching all over. When am i getting out of here 03/26/2021. Case management reports patient is still awaiting hemodialysis placem ent 03/27/2021. Case management reports patient is still awaiting hemodialysis placement. Patient is on maintenance hemodialysis three times a week, MWF schedule. Cont. Lactulose and Rifaximin. Epogen with HD. 03/28/2021. Case management reports patient is still awaiting hemodialysis placement. History Interval history: No new issues Hospitalist Physical - Constitutional Vitals: Temp Pulse Resp BP Pulse Ox 98.3 F 71 18 129/58 96 03/28/21 04:59 03/28/21 04:59 03/28/21 04:59 03/28/21 04:59 03/28/21 04:59 General appearance: Present: cachectic, other (Temporal wasting) - EENT Eyes: Present: PERRL, EOM intact ENT: hearing intact, clear oral mucosa, dentition normal - Neck Neck: Present: supple, normal ROM - Respiratory Respiratory effort: normal Respiratory: bilateral: CTA - Cardiovascular Rhythm: regular Heart Sounds: Present: S1 & S2. Absent: gallop, rub - Extremities Extremities: no ischemia, No edema, Full ROM - Abdominal General gastrointestinal: soft, non-tender, non-distended, normal bowel sounds - Integumentary Integumentary: Present: clear, warm, dry - Neurologic Neurologic: CNII-XII intact, moves all extremities Results - Labs CBC & Chem 7: 03/24/21 06:37 03/28/21 07:06 Labs: Laboratory Last Values WBC 4.5 K/mm3 (4.5-11.0) 03/24/21 06:37 RBC 2.53 M/mm3 (3.65-5.03) L 03/24/21 06:37 Hgb 7.8 gm/dl (11.8-15.2) L 03/24/21 06:37 Hct 22.6 % (35.5-45.6) L 03/24/21 06:37 MCV 90 fl (84-94) 03/24/21 06:37 MCH 31 pg (28-32) 03/24/21 06:37 MCHC 35 % (32-34) H 03/24/21 06:37 RDW 15.2 % (13.2-15.2) 03/24/21 06:37 Plt Count 147 K/mm3 (140-440) 03/24/21 06:37 Lymph % (Auto) 13.3 % (13.4-35.0) L 03/24/21 06:37 [place]ill % (Auto) 10.9 % (0.0-7.3) H 03/24/21 06:37 Eos % (Auto) 1.7 % (0.0-4.3) 03/24/21 06:37 Baso % (Auto) 0.9 % (0.0-1.8) 03/24/21 06:37 Lymph # (Auto) 0.6 K/mm3 (1.2-5.4) L 03/24/21 06:37 [place] # (Auto) 0.5 K/mm3 (0.0-0.8) 03/24/21 06:37 Eos # (Auto) 0.1 K/mm3 (0.0-0.4) 03/24/21 06:37 Baso # (Auto) 0.0 K/mm3 (0.0-0.1) 03/24/21 06:37 Add Manual Diff Complete 03/07/21 05:23 Total Counted 100 03/07/21 05:23 Seg Neutrophils % 73.2 % (40.0-70.0) H 03/24/21 06:37 Seg Neuts % (Manual) 78.0 % (40.0-70.0) H 03/07/21 05:23 Lymphocytes % (Manual) 13.0 % (13.4-35.0) L 03/07/21 05:23 Monocytes % (Manual) 9.0 % (0.0-7.3) H 03/07/21 05:23 Nucleated RBC % Not Reportable 03/07/21 05:23 Seg Neutrophils # 3.3 K/mm3 (1.8-7.7) 03/24/21 06:37 Seg Neutrophils # Man 2.0 K/mm3 (1.8-7.7) 03/07/21 05:23 Band Neutrophils # 0.0 K/mm3 03/07/21 05:23 Lymphocytes # (Manual) 0.3 K/mm3 (1.2-5.4) L 03/07/21 05:23 Abs React Lymphs (Man) 0.0 K/mm3 03/07/21 05:23 Monocytes # (Manual) 0.2 K/mm3 (0.0-0.8) 03/07/21 05:23 Eosinophils # (Manual) 0.0 K/mm3 (0.0-0.4) 03/07/21 05:23 Basophils # (Manual) 0.0 K/mm3 (0.0-0.1) 03/07/21 05:23 Metamyelocytes # 0.0 K/mm3 03/07/21 05:23 Myelocytes # 0.0 K/mm3 03/07/21 05:23 Promyelocytes # 0.0 K/mm3 03/07/21 05:23 Blast Cells # 0.0 K/mm3 03/07/21 05:23 WBC Morphology Not Reportable 03/07/21 05:23 Hypersegmented Neuts Not Reportable 03/07/21 05:23 Hyposegmented Neuts Not Reportable 03/07/21 05:23 Hypogranular Neuts Not Reportable 03/07/21 05:23 Smudge Cells Not Reportable 03/07/21 05:23 Toxic Granulation Not Reportable 03/07/21 05:23 Toxic Vacuolation Not Reportable 03/07/21 05:23 Dohle Bodies Not Reportable 03/07/21 05:23 Pelger-Huet Anomaly Not Reportable 03/07/21 05:23 Cosme Rods Not Reportable 03/07/21 05:23 Platelet Estimate Consistent w auto 03/07/21 05:23 Clumped Platelets Not Reportable 03/07/21 05:23 Plt Clumps, EDTA Not Reportable 03/07/21 05:23 Large Platelets Not Reportable 03/07/21 05:23 Giant Platelets Not Reportable 03/07/21 05:23 Platelet Satelliting Not Reportable 03/07/21 05:23 Plt Morphology Comment Not Reportable 03/07/21 05:23 RBC Morphology Not Reportable 03/07/21 05:23 Dimorphic RBCs Not Reportable 03/07/21 05:23 Polychromasia Not Reportable 03/07/21 05:23 Hypochromasia Not Reportable 03/07/21 05:23 Poikilocytosis Not Reportable 03/07/21 05:23 Anisocytosis Few 03/07/21 05:23 Microcytosis Not Reportable 03/07/21 05:23 Macrocytosis Not Reportable 03/07/21 05:23 Spherocytes Not Reportable 03/07/21 05:23 Pappenheimer Bodies Not Reportable 03/07/21 05:23 Sickle Cells Not Reportable 03/07/21 05:23 Target Cells Not Reportable 03/07/21 05:23 Tear Drop Cells Not Reportable 03/07/21 05:23 Ovalocytes Not Reportable 03/07/21 05:23 Helmet Cells Not Reportable 03/07/21 05:23 Mercado-Keshena Bodies Not Reportable 03/07/21 05:23 Edmond Rings Not Reportable 03/07/21 05:23 Kathy Cells Not Reportable 03/07/21 05:23 Bite Cells Not Reportable 03/07/21 05:23 Crenated Cell Not Reportable 03/07/21 05:23 Elliptocytes Not Reportable 03/07/21 05:23 Acanthocytes (Spur) Not Reportable 03/07/21 05:23 Rouleaux Not Reportable 03/07/21 05:23 Hemoglobin C Crystals Not Reportable 03/07/21 05:23 Schistocytes Not Reportable 03/07/21 05:23 Malaria parasites Not Reportable 03/07/21 05:23 Samir Bodies Not Reportable 03/07/21 05:23 Hem Pathologist Commnt No 03/07/21 05:23 PT 13.7 Sec. (12.2-14.9) 02/26/21 04:33 INR 1.00 (0.87-1.13) 02/26/21 04:33 Sodium 140 mmol/L (137-145) 03/28/21 07:06 Potassium 3.7 mmol/L (3.6-5.0) 03/28/21 07:06 Chloride 98.1 mmol/L (98-107) 03/28/21 07:06 Carbon Dioxide 30 mmol/L (22-30) 03/28/21 07:06 Anion Gap 16 mmol/L 03/28/21 07:06 BUN 38 mg/dL (9-20) H 03/28/21 07:06 Creatinine 5.2 mg/dL (0.8-1.3) H 03/28/21 07:06 Estimated GFR 12 ml/min 03/28/21 07:06 BUN/Creatinine Ratio 7 % 03/28/21 07:06 Glucose 64 mg/dL (75-100) L 07/08/21 07:06 POC Glucose 68 mg/dL (70-105) L 03/28/21 07:37 Hemoglobin A1c 7.4 % (4-6) H 02/26/21 04:33 Calcium 8.4 mg/dL (8.4-10.2) 03/28/21 07:06 Magnesium 2.10 mg/dL (1.7-2.3) 02/17/21 02:24 Total Bilirubin 0.60 mg/dL (0.1-1.2) 03/14/21 07:24 Direct Bilirubin 0.3 mg/dL (0-0.2) H 03/14/21 07:24 Indirect Bilirubin 0.3 mg/dL 03/14/21 07:24 AST 57 units/L (5-40) H 03/14/21 07:24 ALT 24 units/L (7-56) 03/14/21 07:24 Alkaline Phosphatase 179 units/L (35-129) H 03/14/21 07:24 Ammonia 30.0 umol/L (25-60) 03/14/21 07:24 Total Creatine Kinase 86 units/L (55-170) 02/17/21 02:24 Total Protein 6.2 g/dL (6.3-8.2) L 03/14/21 07:24 Albumin 2.3 g/dL (3.9-5) L 03/14/21 07:24 Albumin/Globulin Ratio 0.6 % 03/14/21 07:24 TSH 0.986 mlU/mL (0.270-4.200) 02/17/21 02:24 Urine Color Yellow (Yellow) 02/17/21 Unknown Urine Turbidity Clear (Clear) 02/17/21 Unknown Urine pH 6.0 (5.0-7.0) 02/17/21 Unknown Ur Specific [place] 1.012 (1.003-1.030) 02/17/21 Unknown Urine Protein 100 mg/dl mg/dL (Negative) 02/17/21 Unknown Urine Glucose (UA) >=500 mg/dL (Negative) 02/17/21 Unknown Urine Ketones Neg mg/dL (Negative) 02/17/21 Unknown Urine Blood Neg (Negative) 02/17/21 Unknown Urine Nitrite Neg (Negative) 02/17/21 Unknown Urine Bilirubin Neg (Negative) 02/17/21 Unknown Urine Urobilinogen < 2.0 mg/dL (<2.0) 02/17/21 Unknown Ur Leukocyte Esterase Neg (Negative) 02/17/21 Unknown Urine WBC (Auto) 2.0 /HPF (0.0-6.0) 02/17/21 Unknown Urine RBC (Auto) 2.0 /HPF (0.0-6.0) 02/17/21 Unknown U Epithel Cells (Auto) < 1.0 /HPF (0-13.0) 02/17/21 Unknown Urine Bacteria (Auto) 1+ /HPF (Negative) 02/17/21 Unknown Salicylates < 0.3 mg/dL (2.8-20.0) L 02/17/21 02:24 Acetaminophen 5.0 ug/mL (10.0-30.0) L 02/17/21 02:24 Coronavirus (PCR) Positive (Negative) A 03/18/21 Unknown Hepatitis A IgM Ab Non-reactive (NonReactive) 02/28/21 12:37 Hep Bs Antigen Non-reactive (Negative) 02/28/21 12:37 Hep B Core IgM Ab Non-reactive (NonReactive) 02/28/21 12:37 Hepatitis C Antibody Non-reactive (NonReactive) 02/28/21 12:37 Blood Type A POSITIVE 03/07/21 06:31 Antibody Screen Negative 03/07/21 06:31 Crossmatch See Detail 03/07/21 06:31 Sr/IV: Voiding Method Incontinent Active Medications - Current Medications Current Medications: Generic Name Dose Route Start Last Admin Trade Name Freq PRN Reason Stop Dose Admin Acetaminophen 650 mg 02/18/21 22:38 03/09/21 13:15 Acetaminophen 325 Mg Tab PO 650 mg Q4H PRN Administration Pain MILD(1-3)/Fever >100.5/MOLINA Albuterol 2.5 mg 02/18/21 22:38 Albuterol 2.5 Mg/3 Ml Nebu IH Q3HRT PRN Shortness Of Breath Allopurinol 100 mg 02/20/21 10:00 03/27/21 09:55 Allopurinol 100 Mg Tab PO 100 mg QDAY LEYLA Administration Calcium Acetate 1,334 mg 02/20/21 08:30 03/27/21 18:31 Calcium Acetate 667 Mg Cap PO 1,334 mg TIDWM LEYLA Administration Dextrose 0 ml 02/18/21 23:00 02/25/21 16:56 Dextrose 50% In Water (25gm) 50 Ml Syringe IV 50 ml Q30MIN PRN Administration Hypoglycemia Protocol Diphenhydramine HCl 25 mg 02/23/21 09:10 03/24/21 09:01 Diphenhydramine 25 Mg Cap PO 25 mg BID PRN Administration Itching Famotidine 20 mg 02/19/21 10:00 03/27/21 09:55 Famotidine 20 Mg Tab PO 20 mg QAM LEYLA Administration Hydralazine HCl 10 mg 02/18/21 22:56 Hydralazine 20 Mg/1 Ml Inj IV Q6H PRN htn Hydroxyzine HCl 25 mg 03/24/21 10:38 Hydroxyzine Hcl 25 Mg Tab PO Q6H PRN Itching Sodium Chloride 100 mls @ 999 mls/hr 02/19/21 09:06 Nacl 0.9% IV OLIVIA PRN Hypotension Dextrose/Sodium Chloride 1,000 mls @ 50 mls/hr 03/12/21 15:00 03/19/21 20:31 D5/0.45ns IV 50 mls/hr DIRECT LEYLA Administration Insulin Glargine 16 units 03/23/21 09:00 03/27/21 22:31 Insulin Glargine 100 Units/Ml SUB-Q 16 units QHS LEYLA Administration Insulin Human Lispro 0 unit 03/09/21 22:00 03/28/21 07:30 Insulin Lispro 100 Unit/Ml SUB-Q Not Given ACHS [facility] Protocol Lactulose 20 gm 03/09/21 18:00 03/28/21 06:40 Lactulose 20 Gm/30 Ml Oral Liqd PO 20 gm Q6HR LEYLA Administration Midodrine 10 mg 03/27/21 22:00 03/27/21 23:12 Midodrine 5 Mg Tab PO 10 mg BID LEYLA Administration Ondansetron HCl 4 mg 02/18/21 22:38 02/28/21 12:32 Ondansetron 4 Mg/2 Ml Inj IV 4 mg Q8H PRN Administration Nausea And Vomiting Polyethylene Glycol 17 gm 02/24/21 12:08 02/24/21 12:47 Polyethylene Glycol 3350 17 Gm Powder PO 17 gm QDAY PRN Administration Constipation Propranolol HCl 20 mg 02/20/21 10:00 03/27/21 23:12 Propranolol 10 Mg Tab PO 20 mg BID LEYLA Administration Rifaximin 550 mg 03/10/21 12:00 03/27/21 23:11 Rifaximin 550 Mg Tab PO 550 mg BID LEYLA Administration Sodium Chloride 10 ml 02/19/21 10:00 03/28/21 00:41 Sodium Chloride 0.9% 10 Ml Flush Syringe IV Not Given BID LEYLA Sodium Chloride 10 ml 02/18/21 22:38 Sodium Chloride 0.9% 10 Ml Flush Syringe IV PRN PRN LINE FLUSH Zolpidem Tartrate 5 mg 02/24/21 09:54 03/08/21 23:25 Zolpidem 5 Mg Tab PO 5 mg QHS PRN Administration Sleep Nutrition/Malnutrition Assess - Dietary Evaluation Nutrition/Malnutrition Findings: Nutrition Notes Start: 02/19/21 10: 48 Freq: Status: Active Protocol: Document 03/26/21 14:42 CW (Rec: 03/26/21 14:47 CW [id number]) Nutrition Notes Initial or Follow up Reassessment Current Diagnosis CKD (stage V CKD),Diabetes Other Pertinent Diagnosis COVID-19 (+), hepatic encephalopathy, ascites Current Diet Renal/Consistent CHO + Nepro once daily Labs/Tests 03/24 K 3.3 BUN 45 Cr 6.1 BG 136 Pertinent Medications Lactulose Humalog Phoslo Height 5 ft 11 in Weight 66.8 kg [place] Body Weight (kg) 78.18 BMI 20.5 Weight Status Appropriate Subjective/Other Information F/U for intakes. Per chart pt eating 50% of meals. RN reports that pt ate a little over 50% at lunch. Pt did not answer phone at this time. RN unsure about ONS. Percent of energy/protein needs met: 57%/46% (without ONS) Burn Absent Trauma Absent Current % PO Fair (50-74%) Minimum of two criteria Yes Body Fat Depletion Mild depletion (non-severe) Fluid Accumulation Mild (non-severe) #2 Nutrition Diagnosis Increased nutrient needs ( specify in comment below) Diagnosis Progress(for reassessment Continues documentation) #1 Nutrition Diagnosis Malnutrition Diagnosis Progress(for reassessment Continues documentation) Is patient on ventilator? No Is Patient Ambulatory and/or Out of Bed No REE-(Bertie-St. or-confined to bed) 7982.752 Calculation Used for Recommendations Иван Loera Additional Notes Pro needs >1.2g/kg/day Fluid needs 1-1.5L/day Nutrition Intervention Change Diet Order: Continue current Add Supplement/Snack (indicate name/kcal Nepro daily /protein ) Provides kCal: 425 Provides Protein (gm) 19 Goal #1 PO intake of meals plus ONS to meet at least 75% energy and pro needs Goal #2 Wound healing Follow-Up By: 03/29/21 Additional Comments F/U for stable intakes and ONS tolerance
[2021-03-28] MEDS: PROPRANOLOL 10 MG TAB PO SCH ×2 (09:49→22:06)
[2021-03-28] MEDS: FAMOTIDINE 20 MG TAB PO SCH (09:49)
[2021-03-28] MEDS: RIFAXIMIN 550 MG TAB PO SCH ×2 (09:49→22:08)
[2021-03-28] MEDS: MIDODRINE 5 MG TAB PO SCH ×2 (09:49→22:07)
[2021-03-28] MEDS: allopurinoL 100 MG TAB PO SCH (09:50)
--- NOTE | 2021-03-28 10:25 | Progress Note ---
Assessment and Plan 1. ESRD: Patient is on maintenance hemodialysis three times a week, MWF schedule. Meds dosage based on GFR. Missed HD 02/18. Hemodialysis: 02/19, 02/20, 02/22, 02/25, 02/27, 03/01, 03/04, 03/06, 03/08, 03/11, 03/13, 03/15, 03/18, 03/20, 03/22, 03/25, 03/27. 2. FEN: Hyperkalemia, improved. Monitor lytes and volume status. 3. Anemia, POA: 2/2 ESRD and Liver disease. Epogen with HD. PRBC as needed. 4. Cirrhosis with h/o hepatic encephalopathy: Lactulose and Rifaximin. Monitor. 5. DM type 2: SSI. Monitor. 6. Thrombocytopenia, POA. 7. Hypotension: BP is intermittently low especially while on hemodialysis. On Midodrine. Await placement. Subjective: Patient was seen and examined at the bedside. General Appearance: General appearance: well-developed, appears stated age, not in distress HEENT: ATNC, pupils equal Neck: trachea midline Respiratory: ctab Heart: regular, S1S2, no murmur Abdomen: soft, bowel sounds heard, slightly distended, not tender Integumentary: no rash, warm and dry Neurologic: lethargic, not following any command Ext: no edema, R BKA Hemodialysis access: R arm AVF Subjective Date of service: 03/28/21 Principal diagnosis: Acute renal failure Objective - Vital Signs Vital signs: Vital Signs - 12hr 03/28/21 04:59 Temperature 98.3 F Pulse Rate 71 Respiratory 18 Rate Blood Pressure 129/58 O2 Sat by Pulse 96 Oximetry - Lab 03/24/21 06:37 03/28/21 07:06 Most recent lab results Calcium 8.4 mg/dL (8.4-10.2) 03/28/21 07:06 Magnesium 2.10 mg/dL (1.7-2.3) 02/17/21 02:24 Medications & Allergies - Medications Allergies/Adverse Reactions: Allergies No Known Allergies Allergy (Verified 02/16/21 18:26) Home Medications: Home Medications Medication Instructions Recorded Confirmed Last Taken Type Calcium Acetate [Phoslo] 1,334 mg PO TIDWM #90 capsule 03/01/21 Unknown Rx Famotidine [Pepcid] 20 mg PO QAM #30 tablet 03/01/21 Unknown Rx Lactulose [Cephulac] 20 gm PO Q8HR 30 Days 03/01/21 Unknown Rx Lispro Insulin [HumaLOG] See Protocol SQ ACHS 30 Days 03/01/21 Unknown Rx allopurinoL [Zyloprim] 100 mg PO QDAY #30 tablet 03/01/21 Unknown Rx propranoloL [Inderal] 20 mg PO BID #60 tablet 03/01/21 Unknown Rx Active Medications: Generic Name Dose Route Start Last Admin Trade Name Freq PRN Reason Stop Dose Admin Acetaminophen 650 mg 02/18/21 22:38 03/09/21 13:15 Acetaminophen 325 Mg Tab PO 650 mg Q4H PRN Administration Pain MILD(1-3)/Fever >100.5/MOLINA Albuterol 2.5 mg 02/18/21 22:38 Albuterol 2.5 Mg/3 Ml Nebu IH Q3HRT PRN Shortness Of Breath Allopurinol 100 mg 02/20/21 10:00 03/28/21 09:50 Allopurinol 100 Mg Tab PO 100 mg QDAY LEYLA Administration Calcium Acetate 1,334 mg 02/20/21 08:30 03/28/21 08:00 Calcium Acetate 667 Mg Cap PO 1,334 mg TIDWM LEYLA Administration Dextrose 0 ml 02/18/21 23:00 02/25/21 16:56 Dextrose 50% In Water (25gm) 50 Ml Syringe IV 50 ml Q30MIN PRN Administration Hypoglycemia Protocol Diphenhydramine HCl 25 mg 02/23/21 09:10 03/24/21 09:01 Diphenhydramine 25 Mg Cap PO 25 mg BID PRN Administration Itching Famotidine 20 mg 02/19/21 10:00 03/28/21 09:49 Famotidine 20 Mg Tab PO 20 mg QAM LEYLA Administration Hydralazine HCl 10 mg 02/18/21 22:56 Hydralazine 20 Mg/1 Ml Inj IV Q6H PRN htn Hydroxyzine HCl 25 mg 03/24/21 10:38 Hydroxyzine Hcl 25 Mg Tab PO Q6H PRN Itching Sodium Chloride 100 mls @ 999 mls/hr 02/19/21 09:06 Nacl 0.9% IV OLIVIA PRN Hypotension Dextrose/Sodium Chloride 1,000 mls @ 50 mls/hr 03/12/21 15:00 03/19/21 20:31 D5/0.45ns IV 50 mls/hr DIRECT LEYLA Administration Insulin Glargine 16 units 03/23/21 09:00 03/27/21 22:31 Insulin Glargine 100 Units/Ml SUB-Q 16 units QHS LEYLA Administration Insulin Human Lispro 0 unit 03/09/21 22:00 03/28/21 07:30 Insulin Lispro 100 Unit/Ml SUB-Q Not Given ACHS [facility] Protocol Lactulose 20 gm 03/09/21 18:00 03/28/21 06:40 Lactulose 20 Gm/30 Ml Oral Liqd PO 20 gm Q6HR LEYLA Administration Midodrine 10 mg 03/27/21 22:00 03/28/21 09:49 Midodrine 5 Mg Tab PO 10 mg BID LEYLA Administration Ondansetron HCl 4 mg 02/18/21 22:38 02/28/21 12:32 Ondansetron 4 Mg/2 Ml Inj IV 4 mg Q8H PRN Administration Nausea And Vomiting Polyethylene Glycol 17 gm 02/24/21 12:08 02/24/21 12:47 Polyethylene Glycol 3350 17 Gm Powder PO 17 gm QDAY PRN Administration Constipation Propranolol HCl 20 mg 02/20/21 10:00 03/28/21 09:49 Propranolol 10 Mg Tab PO 20 mg BID LEYLA Administration Rifaximin 550 mg 03/10/21 12:00 03/28/21 09:49 Rifaximin 550 Mg Tab PO 550 mg BID LEYLA Administration Sodium Chloride 10 ml 02/19/21 10:00 03/28/21 09:49 Sodium Chloride 0.9% 10 Ml Flush Syringe IV 10 ml BID LEYLA Administration Sodium Chloride 10 ml 02/18/21 22:38 Sodium Chloride 0.9% 10 Ml Flush Syringe IV PRN PRN LINE FLUSH Zolpidem Tartrate 5 mg 02/24/21 09:54 03/08/21 23:25 Zolpidem 5 Mg Tab PO 5 mg QHS PRN Administration Sleep
[2021-03-28] MEDS: INSULIN GLARGINE 100 UNITS/ML SUB-Q SCH (22:06)
[2021-03-29] MEDS: LACTULOSE 20 GM/30 ML ORAL LIQD PO SCH ×4 (00:13→18:13)
[2021-03-29] MEDS: INSULIN LISPRO 100 UNIT/ML SUB-Q SCH ×4 (07:30→22:00)
[2021-03-29] MEDS: CALCIUM ACETATE 667 MG CAP PO SCH ×3 (08:00→17:00)
--- NOTE | 2021-03-29 09:17 | Progress Note ---
Assessment and Plan Assessment and plan: 55 YO Male with ESRD on HD, Noncompliance with outpatient dialysis, Anemia, HBV, Chronic Liver Disease, Cirrhosis complicated by Esophageal Varices, HTN, Debility, DM presents to ED with confusion with diminished cognition. Patient family report the patient was "not acting like himself" and found to have worsening confusion over the past 2 days. In the ER the patient was found to have hepatic encephalopathy complicated by diminished cognition, end-stage renal disease in need of urgent dialysis, as well as uncontrolled diabetes, and acidosis. -- Hepatic encephalopathy -Patient alert and oriented x3. due to hepatic cirrhosis has resolved cont lactulose, Neuro check, seizure precaution, aspiration precaution, fall precautions, continue to monitor. -Diarrhea resolved was secondary to lactulose. Patient is alert no encephalopathy. -- End stage renal disease Nephrology team consulted, strict I's/O, monitor urine output every shift, dialysis as per renal team, avoid nephrotoxic agents. Await dialysis center. Still no dialysis center. We will dialyze as indicated. --Metabolic Acidosis Nephrology team consulted, dialysis as per renal team. --Hyponatremia Monitor BMP, monitor fluid balance.-Does not require to be checked today we will check every other day now. -- Hyperammonemia Continue lactulose --Pruritus Add Atarax most likely secondary to liver failure --Diabetes mellitus with hyperglycemia Consistent carb diet, SSI -- hyperkalemia, Improvement with dialysis --Ascites, s/p paracentesis drained 6.2l of ascitic fluid -no further ascites at this time. --Sacral wound, pain control continue local wound care. -- Moderate Protein Calorie Malnutrition, nutrition consulted --Noncompliance, counseled for medication compliance --Depression discussed about depression and initiation of Zoloft /1: Resume dialysis will adjust insulin for better coverage. Very poor prognos is considering poor medical compliance. Agree with hospice recommendation. Will obtain wound care to continue to manage. Monitor anemia as patient was pretty anemic during the last hospitalization. Required transfusion. 02/20: Continues to undergo dialysis no change in mental status noted. Tolerating medications. Blood sugar mildly elevated adjusted insulin yesterday when awake for the patient received a dose today and if still elevated will adjust. Again case management is working on discharge plan for this patient as he is pending placement 02/21 patient complains of right hip pain. He said he fell few weeks ago and is concerned about another fracture. He had a fracture about 8 weeks ago and had surgery. Will obtain X ray right hip. Patient pending placement. 02/22 Patient seen in Dialysis Unit. He states hip pain improved. No other complaints. Right hip X ray done yesterday report read may be healing fracture or acute fracture. Will discuss with Orthopedic Surgeon Patient pending placement 02/23 Less hip pain. Today complains of generalized itching. Will start Benadryl po prn. Orthopedic consulted to evaluate right hip. Patient pending placement 02/24 Less hip pain. Generalized itching now resolved. Orthopedic consulted to evaluate right hip. He complains of sleeplessness. Will give Ambien prn Patient pending placement 02/25 Patient requested DNR status yesterday. I discussed with him and he signed forms. He also complains of worsening abdominal distension and requested tap ping, Will order paracentesis. Right hip evaluated by Dr. Trivedi and conservative management recommended. 02/26: Plan for paracentesis today. Need to set up dialysis as outpatient. perennial house manager working on discharge planning. 02/27: Patient did not sign the consent for paracentesis yesterday so paracentesis was done today and aspirated 6.2L ascitic fluid. Patient refusing medication per RN. Getting dialysis. Patient noted slightly altered today, will place NG tube remains altered and keep refusing oral meds, order for ammonia level and will cont lactulose. 02/28: Patient appears much more calm and cooperative today. He stated that he has been refusing procedure and medication as he believes he was not in the right state of his mind. Patient acknowledges the importance of being compliant and he promises that he will take the medications as he will be given. Discharge planning per case management as patient would need outpatient dialysis center set up and personal mcc set up. 03/01/21: Patient has group home setting but according to assistant case manager no available RN to accept the patient till Thursday. Continue supportive care. Discharge pending on placement. 03/02/21 -03/04/21: Discharge pending on placement, continue to monitor clinically. Continue current management and plan and supportive care. Patient need SNF placement. 03/05/2021; Awaiting SNF placement for discharge. Prognosis is very poor. Patient is nonresponsive. I try to reach to his son over the phone but could not get in touch. Patient is appropriate for hospice care. 03/06/2021; patient is awaiting SNF placement. Patient was alert and oriented. No confusion. Patient is stable to be discharged back to SNF. 03/07/2021; patient has hemoglobin of 6.8 this morning. A unit of blood ordered. Will monitor H&H. Nephrology is following for dialysis. 03/08/2021; patient's hemoglobin was 6.8 yesterday and transfused a unit of blood. I ordered yesterday to do posttransfusion H&H and was not done. CBC was ordered to be done this morning but was not done. COVID-19 test was done on 03/06 and positive. Nephrology is following the patient for his dialysis. Plan is to discharge him to SNF. Will follow with case management because patient is Covid positive. 03/09/2021; patient's repeat Covid test on 03/08/2021 was positive. Patient is pending for SNF Placement. Patient had hypoglycemia yesterday and patient was placed on Lantus and his sliding scale adjusted to high dose. Will monitor and adjust as needed. 03/10/2021; pending SNF placement. Covid test was positive on and . 03/11/2021; patient has hepatic encephalopathy and his ammonia level is very high, patient is currently on lactulose and rifaximin. Ammonia level is trending down. Nephrology is following for dialysis. Patient has positive Covid test last one was on 03/08, that makes placement difficult. Continue with case management. 03/12: Still awaiting placement, discussed with nursing staff to monitor mental status changes. Will check ammonia level. Continue to adjust blood sugar. Complicated by COVID POSITIVELY. Awaiting placement for the patient. Also dialysis chair time. I have discussed with case management as my understanding was that patient was to go for hospice but this plan appears to have changed possibly not clear to me at this time 03/13: Continue supportive care crush medications that can be crushed. Ammonia level is elevated but not as elevated as previously. Continue lactulose advised nursing staff that this should be given as ordered to communicate with the night team also. Unfortunately when the patient gets better he refuses his lactulose. I truly believe that we should strongly consider palliative care for this patient but nevertheless if he wants to continue dialysis and will be compliant with his medications this is definitely an option can be pursued. Aspiration precautions monitor hemoglobin and platelets. 03/14: Patient seen and examined, more awake today. Continue supportive care, patient was made DNR wade, signed the form today after confirming the patient and also the physician. Monitor for fever. AWAITING PLACEMENT. poor prognosis 03/15/21 Patient is seen and examined. Lab and medication reviewed. Patient denied any chest pain or shortness of breath. Patient is more awake alert today. Patient is getting them hemodialysis today. Continue current management. Awaiting placement. 03/16/21 patient seen and examined. Lab and medication reviewed. Patient feels better. Hemoglobin 8.2 and hematocrit 23.9. Complained of pain in the butt. No other complain. Continue current management and supportive care. Patient is waiting for placement. 03/17: Patient remains with poor prognosis refusing dietary intake. Again discussed hospice and palliative care management considering his current medical condition and declining poor prognostic factors. Discussed with nursing staff patient will continue with lactulose had refused this morning but did take it yesterday. Continue aspiration precautions. Discussed the importance of taking the medication the patient verbalized understanding 03/18: Patient undergoing HD discharge planning ongoing discussed with case management team. Covid test ordered today for placement purposes. 03/19/2021; Covid test was ordered and result is pending. Pending placement. 03/20/2021; patient's Covid test was positive again on 03/20/2021. Pending placement. 03/21/2021. Patient cooperative no acute distress at this time. Complains of loose stool diarrhea. Still awaiting placement. Unable to find hemodialysis placement 03/22/2021. Patient last Covid test was positive however initial test was greater than 14 days ago. Patient is no longer infected. Unable to find hemodialysis line at present. Patient being evaluated for [facility]. 03/23/2021. Patient continues to state he feels good much better at this time. Resting comfortably. No distress noted. Still awaiting hemodialysis center. 03/24/2021 patient with flat mood discussed about depression. Resting comfortably watching TV. 03/25/2021. Patient denies depression at this time. Complains of itching all over. When am i getting out of here 03/26/2021. Case management reports patient is still awaiting hemodialysis placem ent 03/27/2021. Case management reports patient is still awaiting hemodialysis placement. Patient is on maintenance hemodialysis three times a week, MWF schedule. Cont. Lactulose and Rifaximin. Epogen with HD. 03/28/2021. Case management reports patient is still awaiting hemodialysis placement. 03/29/2021. Plan is for the patient to go to [facility] group home and awaiting on hemodialysis arrangements. [facility] and does not have a bed available. Covid test ordered. We will continue to follow up with case management on discharge planning. History Interval history: No new issues Hospitalist Physical - Constitutional Vitals: Temp Pulse Resp BP Pulse Ox 98.0 F 70 16 111/51 100 03/29/21 04:13 03/28/21 19:55 03/29/21 04:13 03/29/21 04:13 03/28/21 19:55 General appearance: Present: cachectic, other (Temporal wasting) - EENT Eyes: Present: PERRL, EOM intact ENT: hearing intact, clear oral mucosa, dentition normal - Neck Neck: Present: supple, normal ROM - Respiratory Respiratory effort: normal Respiratory: bilateral: CTA - Cardiovascular Rhythm: regular Heart Sounds: Present: S1 & S2. Absent: gallop, rub - Extremities Extremities: no ischemia, No edema, Full ROM - Abdominal General gastrointestinal: soft, non-tender, non-distended, normal bowel sounds - Integumentary Integumentary: Present: clear, warm, dry - Neurologic Neurologic: CNII-XII intact, moves all extremities Results - Labs CBC & Chem 7: 03/24/21 06:37 03/28/21 07:06 Labs: Laboratory Last Values WBC 4.5 K/mm3 (4.5-11.0) 03/24/21 06:37 RBC 2.53 M/mm3 (3.65-5.03) L 03/24/21 06:37 Hgb 7.8 gm/dl (11.8-15.2) L 03/24/21 06:37 Hct 22.6 % (35.5-45.6) L 03/24/21 06:37 MCV 90 fl (84-94) 03/24/21 06:37 MCH 31 pg (28-32) 03/24/21 06:37 MCHC 35 % (32-34) H 03/24/21 06:37 RDW 15.2 % (13.2-15.2) 03/24/21 06:37 Plt Count 147 K/mm3 (140-440) 03/24/21 06:37 Lymph % (Auto) 13.3 % (13.4-35.0) L 03/24/21 06:37 [place] % (Auto) 10.9 % (0.0-7.3) H 03/24/21 06:37 Eos % (Auto) 1.7 % (0.0-4.3) 03/24/21 06:37 Baso % (Auto) 0.9 % (0.0-1.8) 03/24/21 06:37 Lymph # (Auto) 0.6 K/mm3 (1.2-5.4) L 03/24/21 06:37 [place] # (Auto) 0.5 K/mm3 (0.0-0.8) 03/24/21 06:37 Eos # (Auto) 0.1 K/mm3 (0.0-0.4) 03/24/21 06:37 Baso # (Auto) 0.0 K/mm3 (0.0-0.1) 03/24/21 06:37 Add Manual Diff Complete 03/07/21 05:23 Total Counted 100 03/07/21 05:23 Seg Neutrophils % 73.2 % (40.0-70.0) H 03/24/21 06:37 Seg Neuts % (Manual) 78.0 % (40.0-70.0) H 03/07/21 05:23 Lymphocytes % (Manual) 13.0 % (13.4-35.0) L 03/07/21 05:23 Monocytes % (Manual) 9.0 % (0.0-7.3) H 03/07/21 05:23 Nucleated RBC % Not Reportable 03/07/21 05:23 Seg Neutrophils # 3.3 K/mm3 (1.8-7.7) 03/24/21 06:37 Seg Neutrophils # Man 2.0 K/mm3 (1.8-7.7) 03/07/21 05:23 Band Neutrophils # 0.0 K/mm3 03/07/21 05:23 Lymphocytes # (Manual) 0.3 K/mm3 (1.2-5.4) L 03/07/21 05:23 Abs React Lymphs (Man) 0.0 K/mm3 03/07/21 05:23 Monocytes # (Manual) 0.2 K/mm3 (0.0-0.8) 03/07/21 05:23 Eosinophils # (Manual) 0.0 K/mm3 (0.0-0.4) 03/07/21 05:23 Basophils # (Manual) 0.0 K/mm3 (0.0-0.1) 03/07/21 05:23 Metamyelocytes # 0.0 K/mm3 03/07/21 05:23 Myelocytes # 0.0 K/mm3 03/07/21 05:23 Promyelocytes # 0.0 K/mm3 03/07/21 05:23 Blast Cells # 0.0 K/mm3 03/07/21 05:23 WBC Morphology Not Reportable 03/07/21 05:23 Hypersegmented Neuts Not Reportable 03/07/21 05:23 Hyposegmented Neuts Not Reportable 03/07/21 05:23 Hypogranular Neuts Not Reportable 03/07/21 05:23 Smudge Cells Not Reportable 03/07/21 05:23 Toxic Granulation Not Reportable 03/07/21 05:23 Toxic Vacuolation Not Reportable 03/07/21 05:23 Dohle Bodies Not Reportable 03/07/21 05:23 Pelger-Huet Anomaly Not Reportable 03/07/21 05:23 Cosme Rods Not Reportable 03/07/21 05:23 Platelet Estimate Consistent w auto 03/07/21 05:23 Clumped Platelets Not Reportable 03/07/21 05:23 Plt Clumps, EDTA Not Reportable 03/07/21 05:23 Large Platelets Not Reportable 03/07/21 05:23 Giant Platelets Not Reportable 03/07/21 05:23 Platelet Satelliting Not Reportable 03/07/21 05:23 Plt Morphology Comment Not Reportable 03/07/21 05:23 RBC Morphology Not Reportable 03/07/21 05:23 Dimorphic RBCs Not Reportable 03/07/21 05:23 Polychromasia Not Reportable 03/07/21 05:23 Hypochromasia Not Reportable 03/07/21 05:23 Poikilocytosis Not Reportable 03/07/21 05:23 Anisocytosis Few 03/07/21 05:23 Microcytosis Not Reportable 03/07/21 05:23 Macrocytosis Not Reportable 03/07/21 05:23 Spherocytes Not Reportable 03/07/21 05:23 Pappenheimer Bodies Not Reportable 03/07/21 05:23 Sickle Cells Not Reportable 03/07/21 05:23 Target Cells Not Reportable 03/07/21 05:23 Tear Drop Cells Not Reportable 03/07/21 05:23 Ovalocytes Not Reportable 03/07/21 05:23 Helmet Cells Not Reportable 03/07/21 05:23 Mercado-Freeborn Bodies Not Reportable 03/07/21 05:23 [place] Rings Not Reportable 03/07/21 05:23 Kathy Cells Not Reportable 03/07/21 05:23 Bite Cells Not Reportable 03/07/21 05:23 Crenated Cell Not Reportable 03/07/21 05:23 Elliptocytes Not Reportable 03/07/21 05:23 Acanthocytes (Spur) Not Reportable 03/07/21 05:23 Rouleaux Not Reportable 03/07/21 05:23 Hemoglobin C Crystals Not Reportable 03/07/21 05:23 Schistocytes Not Reportable 03/07/21 05:23 Malaria parasites Not Reportable 03/07/21 05:23 Samir Bodies Not Reportable 03/07/21 05:23 Hem Pathologist Commnt No 03/07/21 05:23 PT 13.7 Sec. (12.2-14.9) 02/26/21 04:33 INR 1.00 (0.87-1.13) 02/26/21 04:33 Sodium 140 mmol/L (137-145) 03/28/21 07:06 Potassium 3.7 mmol/L (3.6-5.0) 03/28/21 07:06 Chloride 98.1 mmol/L (98-107) 03/28/21 07:06 Carbon Dioxide 30 mmol/L (22-30) 03/28/21 07:06 Anion Gap 16 mmol/L 03/28/21 07:06 BUN 38 mg/dL (9-20) H 03/28/21 07:06 Creatinine 5.2 mg/dL (0.8-1.3) H 03/28/21 07:06 Estimated GFR 12 ml/min 03/28/21 07:06 BUN/Creatinine Ratio 7 % 03/28/21 07:06 Glucose 64 mg/dL (75-100) L 03/28/21 07:06 POC Glucose 234 mg/dL (70-105) H 03/29/21 07:46 Hemoglobin A1c 7.4 % (4-6) H 02/26/21 04:33 Calcium 8.4 mg/dL (8.4-10.2) 03/28/21 07:06 Magnesium 2.10 mg/dL (1.7-2.3) 02/17/21 02:24 Total Bilirubin 0.60 mg/dL (0.1-1.2) 03/14/21 07:24 Direct Bilirubin 0.3 mg/dL (0-0.2) H 03/14/21 07:24 Indirect Bilirubin 0.3 mg/dL 03/14/21 07:24 AST 57 units/L (5-40) H 03/14/21 07:24 ALT 24 units/L (7-56) 03/14/21 07:24 Alkaline Phosphatase 179 units/L (35-129) H 03/14/21 07:24 Ammonia 30.0 umol/L (25-60) 03/14/21 07:24 Total Creatine Kinase 86 units/L (55-170) 02/17/21 02:24 Total Protein 6.2 g/dL (6.3-8.2) L 03/14/21 07:24 Albumin 2.3 g/dL (3.9-5) L 03/14/21 07:24 Albumin/Globulin Ratio 0.6 % 03/14/21 07:24 TSH 0.986 mlU/mL (0.270-4.200) 02/17/21 02:24 Urine Color Yellow (Yellow) 02/17/21 Unknown Urine Turbidity Clear (Clear) 02/17/21 Unknown Urine pH 6.0 (5.0-7.0) 02/17/21 Unknown Ur Specific [place] 1.012 (1.003-1.030) 02/17/21 Unknown Urine Protein 100 mg/dl mg/dL (Negative) 02/17/21 Unknown Urine Glucose (UA) >=500 mg/dL (Negative) 02/17/21 Unknown Urine Ketones Neg mg/dL (Negative) 02/17/21 Unknown Urine Blood Neg (Negative) 02/17/21 Unknown Urine Nitrite Neg (Negative) 02/17/21 Unknown Urine Bilirubin Neg (Negative) 02/17/21 Unknown Urine Urobilinogen < 2.0 mg/dL (<2.0) 02/17/21 Unknown Ur Leukocyte Esterase Neg (Negative) 02/17/21 Unknown Urine WBC (Auto) 2.0 /HPF (0.0-6.0) 02/17/21 Unknown Urine RBC (Auto) 2.0 /HPF (0.0-6.0) 02/17/21 Unknown U Epithel Cells (Auto) < 1.0 /HPF (0-13.0) 02/17/21 Unknown Urine Bacteria (Auto) 1+ /HPF (Negative) 02/17/21 Unknown Salicylates < 0.3 mg/dL (2.8-20.0) L 02/17/21 02:24 Acetaminophen 5.0 ug/mL (10.0-30.0) L 02/17/21 02:24 Coronavirus (PCR) Positive (Negative) A 03/18/21 Unknown Hepatitis A IgM Ab Non-reactive (NonReactive) 02/28/21 12:37 Hep Bs Antigen Non-reactive (Negative) 03/28/21 18:57 Hep B Core IgM Ab Non-reactive (NonReactive) 02/28/21 12:37 Hepatitis C Antibody Non-reactive (NonReactive) 02/28/21 12:37 Blood Type A POSITIVE 03/07/21 06:31 Antibody Screen Negative 03/07/21 06:31 Crossmatch See Detail 03/07/21 06:31 Sr/IV: Voiding Method Incontinent Active Medications - Current Medications Current Medications: Generic Name Dose Route Start Last Admin Trade Name Freq PRN Reason Stop Dose Admin Acetaminophen 650 mg 02/18/21 22:38 03/09/21 13:15 Acetaminophen 325 Mg Tab PO 650 mg Q4H PRN Administration Pain MILD(1-3)/Fever >100.5/MOLINA Albuterol 2.5 mg 02/18/21 22:38 Albuterol 2.5 Mg/3 Ml Nebu IH Q3HRT PRN Shortness Of Breath Allopurinol 100 mg 02/20/21 10:00 03/28/21 09:50 Allopurinol 100 Mg Tab PO 100 mg QDAY LEYLA Administration Calcium Acetate 1,334 mg 02/20/21 08:30 03/28/21 17:11 Calcium Acetate 667 Mg Cap PO 1,334 mg TIDWM LEYLA Administration Dextrose 0 ml 02/18/21 23:00 02/25/21 16:56 Dextrose 50% In Water (25gm) 50 Ml Syringe IV 50 ml Q30MIN PRN Administration Hypoglycemia Protocol Diphenhydramine HCl 25 mg 02/23/21 09:10 03/24/21 09:01 Diphenhydramine 25 Mg Cap PO 25 mg BID PRN Administration Itching Famotidine 20 mg 02/19/21 10:00 03/28/21 09:49 Famotidine 20 Mg Tab PO 20 mg QAM LEYLA Administration Hydralazine HCl 10 mg 02/18/21 22:56 Hydralazine 20 Mg/1 Ml Inj IV Q6H PRN htn Hydroxyzine HCl 25 mg 03/24/21 10:38 Hydroxyzine Hcl 25 Mg Tab PO Q6H PRN Itching Sodium Chloride 100 mls @ 999 mls/hr 02/19/21 09:06 Nacl 0.9% IV OLIVIA PRN Hypotension Dextrose/Sodium Chloride 1,000 mls @ 50 mls/hr 03/12/21 15:00 03/19/21 20:31 D5/0.45ns IV 50 mls/hr DIRECT LEYLA Administration Insulin Glargine 16 units 03/23/21 09:00 03/28/21 22:06 Insulin Glargine 100 Units/Ml SUB-Q 16 units QHS LEYLA Administration Insulin Human Lispro 0 unit 03/09/21 22:00 03/28/21 22:03 Insulin Lispro 100 Unit/Ml SUB-Q Not Given ACHS [facility] Protocol Lactulose 20 gm 03/09/21 18:00 03/29/21 05:46 Lactulose 20 Gm/30 Ml Oral Liqd PO 20 gm Q6HR LEYLA Administration Midodrine 10 mg 03/27/21 22:00 03/28/21 22:07 Midodrine 5 Mg Tab PO 10 mg BID LEYLA Administration Ondansetron HCl 4 mg 02/18/21 22:38 02/28/21 12:32 Ondansetron 4 Mg/2 Ml Inj IV 4 mg Q8H PRN Administration Nausea And Vomiting Polyethylene Glycol 17 gm 02/24/21 12:08 02/24/21 12:47 Polyethylene Glycol 3350 17 Gm Powder PO 17 gm QDAY PRN Administration Constipation Propranolol HCl 20 mg 02/20/21 10:00 03/28/21 22:06 Propranolol 10 Mg Tab PO 20 mg BID LEYLA Administration Rifaximin 550 mg 03/10/21 12:00 03/28/21 22:08 Rifaximin 550 Mg Tab PO 550 mg BID LEYLA Administration Sodium Chloride 10 ml 02/19/21 10:00 03/28/21 22:07 Sodium Chloride 0.9% 10 Ml Flush Syringe IV 10 ml BID LEYLA Administration Sodium Chloride 10 ml 02/18/21 22:38 Sodium Chloride 0.9% 10 Ml Flush Syringe IV PRN PRN LINE FLUSH Zolpidem Tartrate 5 mg 02/24/21 09:54 03/08/21 23:25 Zolpidem 5 Mg Tab PO 5 mg QHS PRN Administration Sleep Nutrition/Malnutrition Assess - Dietary Evaluation Nutrition/Malnutrition Findings: Nutrition Notes Start: 02/19/21 10:48 Freq: Status: Active Protocol: Document 03/26/21 14:42 CW (Rec: 03/26/21 14:47 CW [id number]) Nutrition Notes Initial or Follow up Reassessment Current Diagnosis CKD (stage V CKD),Diabetes Other Pertinent Diagnosis COVID-19 (+), hepatic encephalopathy, ascites Current Diet Renal/Consistent CHO + Nepro once daily Labs/Tests 03/24 K 3.3 BUN 45 Cr 6.1 BG 136 Pertinent Medications Lactulose Humalog Phoslo Height 5 ft 11 in Weight 66.8 kg [place] Body Weight (kg) 78.18 BMI 20.5 Weight Status Appropriate Subjective/Other Information F/U for intakes. Per chart pt eating 50% of meals. RN reports that pt ate a little over 50% at lunch. Pt did not answer phone at this time. RN unsure about ONS. Percent of energy/protein needs met: 57%/46% (without ONS) Burn Absent Trauma Absent Current % PO Fair (50-74%) Minimum of two criteria Yes Body Fat Depletion Mild depletion (non-severe) Fluid Accumulation Mild (non-severe) #2 Nutrition Diagnosis Increased nutrient needs ( specify in comment below) Diagnosis Progress(for reassessment Continues documentation) #1 Nutrition Diagnosis Malnutrition Diagnosis Progress(for reassessment Continues documentation) Is patient on ventilator? No Is Patient Ambulatory and/or Out of Bed No REE-([facility]-confined to bed) 7084.727 Calculation Used for Recommendations [facility] Additional Notes Pro needs >1.2g/kg/day Fluid needs 1-1.5L/day Nutrition Intervention Change Diet Order: Continue current Add Supplement/Snack (indicate name/kcal Nepro daily /protein ) Provides kCal: 425 Provides Protein (gm) 19 Goal #1 PO intake of meals plus ONS to meet at least 75% energy and pro needs Goal #2 Wound healing Follow-Up By: 03/29/21 Additional Comments F/U for stable intakes and ONS tolerance
[2021-03-29] MEDS: RIFAXIMIN 550 MG TAB PO SCH (10:02)
[2021-03-29] MEDS: allopurinoL 100 MG TAB PO SCH (10:02)
[2021-03-29] MEDS: MIDODRINE 5 MG TAB PO SCH (10:02)
[2021-03-29] MEDS: FAMOTIDINE 20 MG TAB PO SCH (10:02)
[2021-03-29] MEDS: PROPRANOLOL 10 MG TAB PO SCH (10:04)
--- NOTE | 2021-03-29 10:51 | Progress Note ---
Assessment and Plan 1. ESRD: Patient is on maintenance hemodialysis three times a week, MWF schedule. Meds dosage based on GFR. Missed HD 02/18. Hemodialysis: 02/19, 02/20, 02/22, 02/25, 02/27, 03/01, 03/04, 03/06, 03/08, 03/11, 03/13, 03/15, 03/18, 03/20, 03/22, 03/25, 03/27. 2. FEN: Hyperkalemia, improved. Monitor lytes and volume status. 3. Anemia, POA: 2/2 ESRD and Liver disease. Epogen with HD. PRBC as needed. 4. Cirrhosis with h/o hepatic encephalopathy: Lactulose and Rifaximin. Monitor. 5. DM type 2: SSI. Monitor. 6. Thrombocytopenia, POA. 7. Hypotension: BP is intermittently low especially while on hemodialysis. On Midodrine. Await placement. Subjective: Patient was seen and examined at the bedside. General Appearance: General appearance: well-developed, appears stated age, not in distress HEENT: ATNC, pupils equal Neck: trachea midline Respiratory: ctab Heart: regular, S1S2, no murmur Abdomen: soft, bowel sounds heard, slightly distended, not tender Integumentary: no rash, warm and dry Neurologic: lethargic, not following any command, moving extremities Ext: no edema, R BKA Hemodialysis access: R arm AVF Subjective Date of service: 03/29/21 Principal diagnosis: Acute renal failure Objective - Vital Signs Vital signs: Vital Signs - 12hr 03/29/21 04:13 Temperature 98.0 F Respiratory 16 Rate Blood Pressure 111/51 - Lab 03/24/21 06:37 03/28/21 07:06 Most recent lab results Calcium 8.4 mg/dL (8.4-10.2) 03/28/21 07:06 Magnesium 2.10 mg/dL (1.7-2.3) 02/17/21 02:24 Medications & Allergies - Medications Allergies/Adverse Reactions: Allergies No Known Allergies Allergy (Verified 02/16/21 18:26) Home Medications: Home Medications Medication Instructions Recorded Confirmed Last Taken Type Calcium Acetate [Phoslo] 1,334 mg PO TIDWM #90 capsule 03/01/21 Unknown Rx Famotidine [Pepcid] 20 mg PO QAM #30 tablet 03/01/21 Unknown Rx Lactulose [Cephulac] 20 gm PO Q8HR 30 Days 03/01/21 Unknown Rx Lispro Insulin [HumaLOG] See Protocol SQ ACHS 30 Days 03/01/21 Unknown Rx allopurinoL [Zyloprim] 100 mg PO QDAY #30 tablet 03/01/21 Unknown Rx propranoloL [Inderal] 20 mg PO BID #60 tablet 03/01/21 Unknown Rx Active Medications: Generic Name Dose Route Start Last Admin Trade Name Freq PRN Reason Stop Dose Admin Acetaminophen 650 mg 02/18/21 22:38 03/09/21 13:15 Acetaminophen 325 Mg Tab PO 650 mg Q4H PRN Administration Pain MILD(1-3)/Fever >100.5/MOLINA Albuterol 2.5 mg 02/18/21 22:38 Albuterol 2.5 Mg/3 Ml Nebu IH Q3HRT PRN Shortness Of Breath Allopurinol 100 mg 02/20/21 10:00 03/29/21 10:02 Allopurinol 100 Mg Tab PO 100 mg QDAY LEYLA Administration Calcium Acetate 1,334 mg 02/20/21 08:30 03/29/21 08:00 Calcium Acetate 667 Mg Cap PO 1,334 mg TIDWM LEYLA Administration Dextrose 0 ml 02/18/21 23:00 02/25/21 16:56 Dextrose 50% In Water (25gm) 50 Ml Syringe IV 50 ml Q30MIN PRN Administration Hypoglycemia Protocol Diphenhydramine HCl 25 mg 02/23/21 09:10 03/24/21 09:01 Diphenhydramine 25 Mg Cap PO 25 mg BID PRN Administration Itching Famotidine 20 mg 02/19/21 10:00 03/29/21 10:02 Famotidine 20 Mg Tab PO 20 mg QAM LEYLA Administration Hydralazine HCl 10 mg 02/18/21 22:56 Hydralazine 20 Mg/1 Ml Inj IV Q6H PRN htn Hydroxyzine HCl 25 mg 03/24/21 10:38 Hydroxyzine Hcl 25 Mg Tab PO Q6H PRN Itching Sodium Chloride 100 mls @ 999 mls/hr 02/19/21 09:06 Nacl 0.9% IV OLIVIA PRN Hypotension Dextrose/Sodium Chloride 1,000 mls @ 50 mls/hr 03/12/21 15:00 03/19/21 20:31 D5/0.45ns IV 50 mls/hr DIRECT LEYLA Administration Insulin Glargine 16 units 03/23/21 09:00 03/28/21 22:06 Insulin Glargine 100 Units/Ml SUB-Q 16 units QHS LEYLA Administration Insulin Human Lispro 0 unit 03/09/21 22:00 03/29/21 07:30 Insulin Lispro 100 Unit/Ml SUB-Q Not Given ACHS [facility] Protocol Lactulose 20 gm 03/09/21 18:00 03/29/21 05:46 Lactulose 20 Gm/30 Ml Oral Liqd PO 20 gm Q6HR LEYLA Administration Midodrine 10 mg 03/27/21 22:00 03/29/21 10:02 Midodrine 5 Mg Tab PO 10 mg BID LEYLA Administration Ondansetron HCl 4 mg 02/18/21 22:38 02/28/21 12:32 Ondansetron 4 Mg/2 Ml Inj IV 4 mg Q8H PRN Administration Nausea And Vomiting Polyethylene Glycol 17 gm 02/24/21 12:08 02/24/21 12:47 Polyethylene Glycol 3350 17 Gm Powder PO 17 gm QDAY PRN Administration Constipation Propranolol HCl 20 mg 02/20/21 10:00 03/29/21 10:04 Propranolol 10 Mg Tab PO 20 mg BID LEYLA Administration Rifaximin 550 mg 03/10/21 12:00 03/29/21 10:02 Rifaximin 550 Mg Tab PO 550 mg BID LEYLA Administration Sodium Chloride 10 ml 02/19/21 10:00 03/29/21 10:03 Sodium Chloride 0.9% 10 Ml Flush Syringe IV 10 ml BID LEYLA Administration Sodium Chloride 10 ml 02/18/21 22:38 Sodium Chloride 0.9% 10 Ml Flush Syringe IV PRN PRN LINE FLUSH Zolpidem Tartrate 5 mg 02/24/21 09:54 03/08/21 23:25 Zolpidem 5 Mg Tab PO 5 mg QHS PRN Administration Sleep
[2021-03-29] MEDS ORDERED: DEXTROSE 50% IN WATER (25GM) 50 ML SYRINGE IV PRN (12:00)
[2021-03-30] MEDS: PROPRANOLOL 10 MG TAB PO SCH ×3 (00:16→22:48)
[2021-03-30] MEDS: MIDODRINE 5 MG TAB PO SCH ×2 (00:21→12:05)
[2021-03-30] MEDS: INSULIN GLARGINE 100 UNITS/ML SUB-Q SCH ×2 (00:22→22:49)
[2021-03-30] MEDS: RIFAXIMIN 550 MG TAB PO SCH ×3 (00:22→22:48)
[2021-03-30] MEDS: LACTULOSE 20 GM/30 ML ORAL LIQD PO SCH ×4 (00:22→17:36)
[2021-03-30] MEDS: EPOETIN ALFA-EPBX 20,000 UNIT/1 ML VIAL SUB-Q PRN (00:27)
[2021-03-30 05:54] LABS: Hematocrit 23.7 % (35.5-45.6)
[2021-03-30 06:14] LABS: Iron 52 ug/dL (49-181); Total Iron Binding Capacity 203 mcg/dL (250-450)
--- NOTE | 2021-03-30 08:28 | Progress Note ---
Assessment and Plan Assessment and plan: 55 YO Male with ESRD on HD, Noncompliance with outpatient dialysis, Anemia, HBV, Chronic Liver Disease, Cirrhosis complicated by Esophageal Varices, HTN, Debility, DM presents to ED with confusion with diminished cognition. Patient family report the patient was "not acting like himself" and found to have worsening confusion over the past 2 days. In the ER the patient was found to have hepatic encephalopathy complicated by diminished cognition, end-stage renal disease in need of urgent dialysis, as well as uncontrolled diabetes, and acidosis. -- Hepatic encephalopathy -Patient alert and oriented x3. due to hepatic cirrhosis has resolved cont lactulose, Neuro check, seizure precaution, aspiration precaution, fall precautions, continue to monitor. -Diarrhea resolved was secondary to lactulose. Patient is alert no encephalopathy. -- End stage renal disease Nephrology team consulted, strict I's/O, monitor urine output every shift, dialysis as per renal team, avoid nephrotoxic agents. Await dialysis center. Still no dialysis center. We will dialyze as indicated. --Metabolic Acidosis Nephrology team consulted, dialysis as per renal team. --Hyponatremia Monitor BMP, monitor fluid balance.-Does not require to be checked today we will check every other day now. -- Hyperammonemia Continue lactulose --Pruritus Add Atarax most likely secondary to liver failure --Diabetes mellitus with hyperglycemia Consistent carb diet, SSI -- hyperkalemia, Improvement with dialysis --Ascites, s/p paracentesis drained 6.2l of ascitic fluid -no further ascites at this time. --Sacral wound, pain control continue local wound care. -- Moderate Protein Calorie Malnutrition, nutrition consulted --Noncompliance, counseled for medication compliance --Depression discussed about depression and initiation of Zoloft /1: Resume dialysis will adjust insulin for better coverage. Very poor prognos is considering poor medical compliance. Agree with hospice recommendation. Will obtain wound care to continue to manage. Monitor anemia as patient was pretty anemic during the last hospitalization. Required transfusion. 02/20: Continues to undergo dialysis no change in mental status noted. Tolerating medications. Blood sugar mildly elevated adjusted insulin yesterday when awake for the patient received a dose today and if still elevated will adjust. Again case management is working on discharge plan for this patient as he is pending placement 02/21 patient complains of right hip pain. He said he fell few weeks ago and is concerned about another fracture. He had a fracture about 8 weeks ago and had surgery. Will obtain X ray right hip. Patient pending placement. 02/22 Patient seen in Dialysis Unit. He states hip pain improved. No other complaints. Right hip X ray done yesterday report read may be healing fracture or acute fracture. Will discuss with Orthopedic Surgeon Patient pending placement 02/23 Less hip pain. Today complains of generalized itching. Will start Benadryl po prn. Orthopedic consulted to evaluate right hip. Patient pending placement 02/24 Less hip pain. Generalized itching now resolved. Orthopedic consulted to evaluate right hip. He complains of sleeplessness. Will give Ambien prn Patient pending placement 02/25 Patient requested DNR status yesterday. I discussed with him and he signed forms. He also complains of worsening abdominal distension and requested tap ping, Will order paracentesis. Right hip evaluated by Dr. Trivedi and conservative management recommended. 02/26: Plan for paracentesis today. Need to set up dialysis as outpatient. manager staffing working on discharge planning. 02/27: Patient did not sign the consent for paracentesis yesterday so paracentesis was done today and aspirated 6.2L ascitic fluid. Patient refusing medication per RN. Getting dialysis. Patient noted slightly altered today, will place NG tube remains altered and keep refusing oral meds, order for ammonia level and will cont lactulose. 02/28: Patient appears much more calm and cooperative today. He stated that he has been refusing procedure and medication as he believes he was not in the right state of his mind. Patient acknowledges the importance of being compliant and he promises that he will take the medications as he will be given. Discharge planning per case management as patient would need outpatient dialysis center set up and personal usp set up. 03/01/21: Patient has [facility] but according to porter sample case no available RN to accept the patient till Thursday. Continue supportive care. Discharge pending on placement. 03/02/21 -03/04/21: Discharge pending on placement, continue to monitor clinically. Continue current management and plan and supportive care. Patient need SNF placement. 03/05/2021; Awaiting SNF placement for discharge. Prognosis is very poor. Patient is nonresponsive. I try to reach to his son over the phone but could not get in touch. Patient is appropriate for hospice care. 03/06/2021; patient is awaiting SNF placement. Patient was alert and oriented. No confusion. Patient is stable to be discharged back to SNF. 03/07/2021; patient has hemoglobin of 6.8 this morning. A unit of blood ordered. Will monitor H&H. Nephrology is following for dialysis. 03/08/2021; patient's hemoglobin was 6.8 yesterday and transfused a unit of blood. I ordered yesterday to do posttransfusion H&H and was not done. CBC was ordered to be done this morning but was not done. COVID-19 test was done on 03/06 and positive. Nephrology is following the patient for his dialysis. Plan is to discharge him to SNF. Will follow with case management because patient is Covid positive. 03/09/2021; patient's repeat Covid test on 03/08/2021 was positive. Patient is pending for SNF Placement. Patient had hypoglycemia yesterday and patient was placed on Lantus and his sliding scale adjusted to high dose. Will monitor and adjust as needed. 03/10/2021; pending SNF placement. Covid test was positive on and . 03/11/2021; patient has hepatic encephalopathy and his ammonia level is very high, patient is currently on lactulose and rifaximin. Ammonia level is trending down. Nephrology is following for dialysis. Patient has positive Covid test last one was on 03/08, that makes placement difficult. Continue with case management. 03/12: Still awaiting placement, discussed with nursing staff to monitor mental status changes. Will check ammonia level. Continue to adjust blood sugar. Complicated by COVID POSITIVELY. Awaiting placement for the patient. Also dialysis chair time. I have discussed with case management as my understanding was that patient was to go for hospice but this plan appears to have changed possibly not clear to me at this time 03/13: Continue supportive care crush medications that can be crushed. Ammonia level is elevated but not as elevated as previously. Continue lactulose advised nursing staff that this should be given as ordered to communicate with the night team also. Unfortunately when the patient gets better he refuses his lactulose. I truly believe that we should strongly consider palliative care for this patient but nevertheless if he wants to continue dialysis and will be compliant with his medications this is definitely an option can be pursued. Aspiration precautions monitor hemoglobin and platelets. 03/14: Patient seen and examined, more awake today. Continue supportive care, patient was made DNR wade, signed the form today after confirming the patient and also the physician. Monitor for fever. AWAITING PLACEMENT. poor prognosis 03/15/21 Patient is seen and examined. Lab and medication reviewed. Patient denied any chest pain or shortness of breath. Patient is more awake alert today. Patient is getting them hemodialysis today. Continue current management. Awaiting placement. 03/16/21 patient seen and examined. Lab and medication reviewed. Patient feels better. Hemoglobin 8.2 and hematocrit 23.9. Complained of pain in the butt. No other complain. Continue current management and supportive care. Patient is waiting for placement. 03/17: Patient remains with poor prognosis refusing dietary intake. Again discussed hospice and palliative care management considering his current medical condition and declining poor prognostic factors. Discussed with nursing staff patient will continue with lactulose had refused this morning but did take it yesterday. Continue aspiration precautions. Discussed the importance of taking the medication the patient verbalized understanding 03/18: Patient undergoing HD discharge planning ongoing discussed with case management team. Covid test ordered today for placement purposes. 03/19/2021; Covid test was ordered and result is pending. Pending placement. 03/20/2021; patient's Covid test was positive again on 03/20/2021. Pending placement. 03/21/2021. Patient cooperative no acute distress at this time. Complains of loose stool diarrhea. Still awaiting placement. Unable to find hemodialysis placement 03/22/2021. Patient last Covid test was positive however initial test was greater than 14 days ago. Patient is no longer infected. Unable to find hemodialysis line at present. Patient being evaluated for [facility]. 03/23/2021. Patient continues to state he feels good much better at this time. Resting comfortably. No distress noted. Still awaiting hemodialysis center. 03/24/2021 patient with flat mood discussed about depression. Resting comfortably watching TV. 03/25/2021. Patient denies depression at this time. Complains of itching all over. When am i getting out of here 03/26/2021. Case management reports patient is still awaiting hemodialysis placem ent 03/27/2021. Case management reports patient is still awaiting hemodialysis placement. Patient is on maintenance hemodialysis three times a week, MWF schedule. Cont. Lactulose and Rifaximin. Epogen with HD. 03/28/2021. Case management reports patient is still awaiting hemodialysis placement. 03/29/2021. Plan is for the patient to go to [facility] and awaiting on hemodialysis arrangements. [facility] and does not have a bed available. Covid test ordered. We will continue to follow up with case management on discharge planning. 03/30/2021. No new developments. Await hemodialysis placement and potential transfer to [facility]. History Interval history: No new issues Hospitalist Physical - Constitutional Vitals: Temp Pulse Resp BP Pulse Ox 98.2 F 87 18 116/49 100 03/29/21 23:45 03/30/21 00:16 03/29/21 23:45 03/30/21 00:16 03/28/21 19:55 General appearance: Present: cachectic, other (Temporal wasting) Results - Labs CBC & Chem 7: 03/30/21 05:11 03/28/21 07:06 Labs: Laboratory Last Values WBC 4.5 K/mm3 (4.5-11.0) 03/24/21 06:37 RBC 2.53 M/mm3 (3.65-5.03) L 03/24/21 06:37 Hgb 8.0 gm/dl (11.8-15.2) L 03/30/21 05:11 Hct 23.7 % (35.5-45.6) L 03/30/21 05:11 MCV 90 fl (84-94) 03/24/21 06:37 MCH 31 pg (28-32) 03/24/21 06:37 MCHC 35 % (32-34) H 03/24/21 06:37 RDW 15.2 % (13.2-15.2) 03/24/21 06:37 Plt Count 147 K/mm3 (140-440) 03/24/21 06:37 Lymph % (Auto) 13.3 % (13.4-35.0) L 03/24/21 06:37 [place] % (Auto) 10.9 % (0.0-7.3) H 03/24/21 06:37 Eos % (Auto) 1.7 % (0.0-4.3) 03/24/21 06:37 Baso % (Auto) 0.9 % (0.0-1.8) 03/24/21 06:37 Lymph # (Auto) 0.6 K/mm3 (1.2-5.4) L 03/24/21 06:37 [place] # (Auto) 0.5 K/mm3 (0.0-0.8) 03/24/21 06:37 Eos # (Auto) 0.1 K/mm3 (0.0-0.4) 03/24/21 06:37 Baso # (Auto) 0.0 K/mm3 (0.0-0.1) 03/24/21 06:37 Add Manual Diff Complete 03/07/21 05:23 Total Counted 100 03/07/21 05:23 Seg Neutrophils % 73.2 % (40.0-70.0) H 03/24/21 06:37 Seg Neuts % (Manual) 78.0 % (40.0-70.0) H 03/07/21 05:23 Lymphocytes % (Manual) 13.0 % (13.4-35.0) L 03/07/21 05:23 Monocytes % (Manual) 9.0 % (0.0-7.3) H 03/07/21 05:23 Nucleated RBC % Not Reportable 03/07/21 05:23 Seg Neutrophils # 3.3 K/mm3 (1.8-7.7) 03/24/21 06:37 Seg Neutrophils # Man 2.0 K/mm3 (1.8-7.7) 03/07/21 05:23 Band Neutrophils # 0.0 K/mm3 03/07/21 05:23 Lymphocytes # (Manual) 0.3 K/mm3 (1.2-5.4) L 03/07/21 05:23 Abs React Lymphs (Man) 0.0 K/mm3 03/07/21 05:23 Monocytes # (Manual) 0.2 K/mm3 (0.0-0.8) 03/07/21 05:23 Eosinophils # (Manual) 0.0 K/mm3 (0.0-0.4) 03/07/21 05:23 Basophils # (Manual) 0.0 K/mm3 (0.0-0.1) 03/07/21 05:23 Metamyelocytes # 0.0 K/mm3 03/07/21 05:23 Myelocytes # 0.0 K/mm3 03/07/21 05:23 Promyelocytes # 0.0 K/mm3 03/07/21 05:23 Blast Cells # 0.0 K/mm3 03/07/21 05:23 WBC Morphology Not Reportable 03/07/21 05:23 Hypersegmented Neuts Not Reportable 03/07/21 05:23 Hyposegmented Neuts Not Reportable 03/07/21 05:23 Hypogranular Neuts Not Reportable 03/07/21 05:23 Smudge Cells Not Reportable 03/07/21 05:23 Toxic Granulation Not Reportable 03/07/21 05:23 Toxic Vacuolation Not Reportable 03/07/21 05:23 Dohle Bodies Not Reportable 03/07/21 05:23 Pelger-Huet Anomaly Not Reportable 03/07/21 05:23 Cosme Rods Not Reportable 03/07/21 05:23 Platelet Estimate Consistent w auto 03/07/21 05:23 Clumped Platelets Not Reportable 03/07/21 05:23 Plt Clumps, EDTA Not Reportable 03/07/21 05:23 Large Platelets Not Reportable 03/07/21 05:23 Giant Platelets Not Reportable 03/07/21 05:23 Platelet Satelliting Not Reportable 03/07/21 05:23 Plt Morphology Comment Not Reportable 03/07/21 05:23 RBC Morphology Not Reportable 03/07/21 05:23 Dimorphic RBCs Not Reportable 03/07/21 05:23 Polychromasia Not Reportable 03/07/21 05:23 Hypochromasia Not Reportable 03/07/21 05:23 Poikilocytosis Not Reportable 03/07/21 05:23 Anisocytosis Few 03/07/21 05:23 Microcytosis Not Reportable 03/07/21 05:23 Macrocytosis Not Reportable 03/07/21 05:23 Spherocytes Not Reportable 03/07/21 05:23 Pappenheimer Bodies Not Reportable 03/07/21 05:23 Sickle Cells Not Reportable 03/07/21 05:23 Target Cells Not Reportable 03/07/21 05:23 Tear Drop Cells Not Reportable 03/07/21 05:23 Ovalocytes Not Reportable 03/07/21 05:23 Helmet Cells Not Reportable 03/07/21 05:23 [place] Bodies Not Reportable 03/07/21 05:23 Rogers Rings Not Reportable 03/07/21 05:23 Kathy Cells Not Reportable 03/07/21 05:23 Bite Cells Not Reportable 03/07/21 05:23 Crenated Cell Not Reportable 03/07/21 05:23 Elliptocytes Not Reportable 03/07/21 05:23 Acanthocytes (Spur) Not Reportable 03/07/21 05:23 Rouleaux Not Reportable 03/07/21 05:23 Hemoglobin C Crystals Not Reportable 03/07/21 05:23 Schistocytes Not Reportable 03/07/21 05:23 Malaria parasites Not Reportable 03/07/21 05:23 Samir Bodies Not Reportable 03/07/21 05:23 Hem Pathologist Commnt No 03/07/21 05:23 PT 13.7 Sec. (12.2-14.9) 02/26/21 04:33 INR 1.00 (0.87-1.13) 02/26/21 04:33 Sodium 140 mmol/L (137-145) 03/28/21 07:06 Potassium 3.7 mmol/L (3.6-5.0) 03/28/21 07:06 Chloride 98.1 mmol/L (98-107) 03/28/21 07:06 Carbon Dioxide 30 mmol/L (22-30) 03/28/21 07:06 Anion Gap 16 mmol/L 03/28/21 07:06 BUN 38 mg/dL (9-20) H 03/28/21 07:06 Creatinine 5.2 mg/dL (0.8-1.3) H 03/28/21 07:06 Estimated GFR 12 ml/min 03/28/21 07:06 BUN/Creatinine Ratio 7 % 03/28/21 07:06 Glucose 64 mg/dL (75-100) L 03/28/21 07:06 POC Glucose 177 mg/dL (70-105) H 03/30/21 07:33 Hemoglobin A1c 7.4 % (4-6) H 02/26/21 04:33 Calcium 8.4 mg/dL (8.4-10.2) 03/28/21 07:06 Magnesium 2.10 mg/dL (1.7-2.3) 02/17/21 02:24 Iron 52 ug/dL (49-181) 03/30/21 05:11 TIBC 203 mcg/dL (250-450) L 03/30/21 05:11 Ferritin 70.9 ng/mL (30.0-300.0) 03/30/21 05:11 Total Bilirubin 0.60 mg/dL (0.1-1.2) 03/14/21 07:24 Direct Bilirubin 0.3 mg/dL (0-0.2) H 03/14/21 07:24 Indirect Bilirubin 0.3 mg/dL 03/14/21 07:24 AST 57 units/L (5-40) H 03/14/21 07:24 ALT 24 units/L (7-56) 03/14/21 07:24 Alkaline Phosphatase 179 units/L (35-129) H 03/14/21 07:24 Ammonia 30.0 umol/L (25-60) 03/14/21 07:24 Total Creatine Kinase 86 units/L (55-170) 02/17/21 02:24 Total Protein 6.2 g/dL (6.3-8.2) L 03/14/21 07:24 Albumin 2.3 g/dL (3.9-5) L 03/14/21 07:24 Albumin/Globulin Ratio 0.6 % 03/14/21 07:24 Vitamin B12 1583 pg/mL (211-911) H 03/30/21 05:11 Folate 10.11 ng/mL (7.3-26.0) 03/30/21 05:11 TSH 0.986 mlU/mL (0.270-4.200) 02/17/21 02:24 Urine Color Yellow (Yellow) 02/17/21 Unknown Urine Turbidity Clear (Clear) 02/17/21 Unknown Urine pH 6.0 (5.0-7.0) 02/17/21 Unknown Ur Specific [place] 1.012 (1.003-1.030) 02/17/21 Unknown Urine Protein 100 mg/dl mg/dL (Negative) 02/17/21 Unknown Urine Glucose (UA) >=500 mg/dL (Negative) 02/17/21 Unknown Urine Ketones Neg mg/dL (Negative) 02/17/21 Unknown Urine Blood Neg (Negative) 02/17/21 Unknown Urine Nitrite Neg (Negative) 02/17/21 Unknown Urine Bilirubin Neg (Negative) 02/17/21 Unknown Urine Urobilinogen < 2.0 mg/dL (<2.0) 02/17/21 Unknown Ur Leukocyte Esterase Neg (Negative) 02/17/21 Unknown Urine WBC (Auto) 2.0 /HPF (0.0-6.0) 02/17/21 Unknown Urine RBC (Auto) 2.0 /HPF (0.0-6.0) 02/17/21 Unknown U Epithel Cells (Auto) < 1.0 /HPF (0-13.0) 02/17/21 Unknown Urine Bacteria (Auto) 1+ /HPF (Negative) 02/17/21 Unknown Salicylates < 0.3 mg/dL (2.8-20.0) L 02/17/21 02:24 Acetaminophen 5.0 ug/mL (10.0-30.0) L 02/17/21 02:24 Coronavirus (PCR) Positive (Negative) A 03/29/21 Unknown Hepatitis A IgM Ab Non-reactive (NonReactive) 02/28/21 12:37 Hep Bs Antigen Non-reactive (Negative) 03/28/21 18:57 Hep B Core IgM Ab Non-reactive (NonReactive) 02/28/21 12:37 Hepatitis C Antibody Non-reactive (NonReactive) 02/28/21 12:37 Blood Type A POSITIVE 03/07/21 06:31 Antibody Screen Negative 03/07/21 06:31 Crossmatch See Detail 03/07/21 06:31 Sr/IV: Voiding Method Incontinent Active Medications - Current Medications Current Medications: Generic Name Dose Route Start Last Admin Trade Name Freq PRN Reason Stop Dose Admin Acetaminophen 650 mg 02/18/21 22:38 03/09/21 13:15 Acetaminophen 325 Mg Tab PO 650 mg Q4H PRN Administration Pain MILD(1-3)/Fever >100.5/MOLINA Albuterol 2.5 mg 02/18/21 22:38 Albuterol 2.5 Mg/3 Ml Nebu IH Q3HRT PRN Shortness Of Breath Allopurinol 100 mg 02/20/21 10:00 03/29/21 10:02 Allopurinol 100 Mg Tab PO 100 mg QDAY LEYLA Administration Calcium Acetate 1,334 mg 02/20/21 08:30 03/29/21 17:00 Calcium Acetate 667 Mg Cap PO 1,334 mg TIDWM LEYLA Administration Dextrose 50 ml 03/29/21 12:00 Dextrose 50% In Water (25gm) 50 Ml Syringe IV Q30MIN PRN HYPOGLYCEMIA Protocol Diphenhydramine HCl 25 mg 02/23/21 09:10 03/24/21 09:01 Diphenhydramine 25 Mg Cap PO 25 mg BID PRN Administration Itching Famotidine 20 mg 02/19/21 10:00 03/29/21 10:02 Famotidine 20 Mg Tab PO 20 mg QAM LEYLA Administration Hydralazine HCl 10 mg 02/18/21 22:56 Hydralazine 20 Mg/1 Ml Inj IV Q6H PRN htn Hydroxyzine HCl 25 mg 03/24/21 10:38 Hydroxyzine Hcl 25 Mg Tab PO Q6H PRN Itching Sodium Chloride 100 mls @ 999 mls/hr 02/19/21 09:06 Nacl 0.9% IV OLIVIA PRN Hypotension Insulin Glargine 16 units 03/23/21 09:00 03/30/21 00:22 Insulin Glargine 100 Units/Ml SUB-Q 16 units QHS LEYLA Administration Insulin Human Lispro 0 unit 03/09/21 22:00 03/29/21 22:00 Insulin Lispro 100 Unit/Ml SUB-Q Not Given ACHS [facility] Protocol Lactulose 20 gm 03/09/21 18:00 03/30/21 05:34 Lactulose 20 Gm/30 Ml Oral Liqd PO 20 gm Q6HR LEYLA Administration Midodrine 10 mg 03/27/21 22:00 03/30/21 00:21 Midodrine 5 Mg Tab PO 10 mg BID LEYLA Administration Ondansetron HCl 4 mg 02/18/21 22:38 02/28/21 12:32 Ondansetron 4 Mg/2 Ml Inj IV 4 mg Q8H PRN Administration Nausea And Vomiting Polyethylene Glycol 17 gm 02/24/21 12:08 02/24/21 12:47 Polyethylene Glycol 3350 17 Gm Powder PO 17 gm QDAY PRN Administration Constipation Propranolol HCl 20 mg 02/20/21 10:00 03/30/21 00:16 Propranolol 10 Mg Tab PO Not Given BID LEYLA Rifaximin 550 mg 03/10/21 12:00 03/30/21 00:22 Rifaximin 550 Mg Tab PO 550 mg BID LEYLA Administration Sodium Chloride 10 ml 02/19/21 10:00 03/29/21 22:00 Sodium Chloride 0.9% 10 Ml Flush Syringe IV Not Given BID LEYLA Sodium Chloride 10 ml 02/18/21 22:38 Sodium Chloride 0.9% 10 Ml Flush Syringe IV PRN PRN LINE FLUSH Zolpidem Tartrate 5 mg 02/24/21 09:54 03/08/21 23:25 Zolpidem 5 Mg Tab PO 5 mg QHS PRN Administration Sleep Nutrition/Malnutrition Assess - Dietary Evaluation Nutrition/Malnutrition Findings: Nutrition Notes Start: 02/19/21 10:48 Freq: Status: Active Protocol: Document 03/29/21 12:16 (Rec: 03/29/21 12:18 [email or web address]) Nutrition Notes Initial or Follow up Reassessment Current Diagnosis CKD (stage V CKD),Diabetes Other Pertinent Diagnosis COVID-19 (+), hepatic encephalopathy, ascites Current Diet Renal/Consistent CHO + Nepro once daily Labs/Tests POC BG [id number] Pertinent Medications Reviewed Height 5 ft 11 in Weight 66.5 kg [place] Body Weight (kg) 78.18 BMI 20.4 Weight Status Appropriate Subjective/Other Information FU for intakes. Pt not answering phone. Per chart, pt ate 100% of meals yesterday. Percent of energy/protein needs met: 100%/100% Burn Absent Trauma Absent Current % PO Good (75-100%) Minimum of two criteria Yes Body Fat Depletion Mild depletion (non-severe) Fluid Accumulation Mild (non-severe) #2 Nutrition Diagnosis Increased nutrient needs ( specify in comment below) Diagnosis Progress(for reassessment Continues documentation) #1 Nutrition Diagnosis Malnutrition Diagnosis Progress(for reassessment Continues documentation) Is patient on ventilator? No Is Patient Ambulatory and/or Out of Bed No REE-([facility] Jeor-confined to bed) 8225.754 Calculation [facility]ations [facility] Additional Notes Pro needs >1.2g/kg/day Fluid needs 1-1.5L/day Nutrition Intervention Change Diet Order: Continue current Add Supplement/Snack (indicate name/kcal Nepro daily /protein ) Provides kCal: 425 Provides Protein (gm) 19 Goal #1 PO intake of meals plus ONS to meet at least 75% energy and pro needs Goal #2 Wound healing Follow-Up By: 04/05/21 Additional Comments F/U for stable intakes and ONS tolerance
[2021-03-30] MEDS: CALCIUM ACETATE 667 MG CAP PO SCH ×3 (09:13→17:36)
[2021-03-30] MEDS: allopurinoL 100 MG TAB PO SCH (09:13)
[2021-03-30] MEDS: INSULIN LISPRO 100 UNIT/ML SUB-Q SCH ×4 (09:14→22:49)
[2021-03-30] MEDS: FAMOTIDINE 20 MG TAB PO SCH (09:17)
--- NOTE | 2021-03-30 14:22 | Progress Note ---
Assessment and Plan 1. ESRD: Patient is on maintenance hemodialysis three times a week, MWF schedule. Meds dosage based on GFR. Missed HD 02/18. Hemodialysis: 02/19, 02/20, 02/22, 02/25, 02/27, 03/01, 03/04, 03/06, 03/08, 03/11, 03/13, 03/15, 03/18, 03/20, 03/22, 03/25, 03/27, 03/29. 2. FEN: Hyperkalemia, improved. Monitor lytes and volume status. 3. Anemia, POA: 2/2 ESRD and Liver disease. Epogen with HD. PRBC as needed. 4. Cirrhosis with h/o hepatic encephalopathy: Lactulose and Rifaximin. Monitor. 5. DM type 2: SSI. Monitor. 6. Thrombocytopenia, POA. 7. Hypotension: BP is intermittently low especially while on hemodialysis. On Midodrine. Await placement. Subjective: Patient was seen and examined at the bedside. General Appearance: General appearance: well-developed, appears stated age, not in distress HEENT: ATNC, pupils equal Neck: trachea midline Respiratory: ctab Heart: regular, S1S2, no murmur Abdomen: soft, bowel sounds heard, slightly distended, not tender Integumentary: no rash, warm and dry Neurologic: lethargic, not following any command, moving extremities Ext: no edema, R BKA Hemodialysis access: R arm AVF Subjective Date of service: 03/30/21 Principal diagnosis: Acute renal failure Objective - Vital Signs Vital signs: Vital Signs - 12hr 03/30/21 03/30/21 11:09 12:06 Pulse Rate 85 85 Blood Pressure 140/85 O2 Sat by Pulse 98 Oximetry - Lab 03/30/21 05:11 03/28/21 07:06 Most recent lab results Calcium 8.4 mg/dL (8.4-10.2) 03/28/21 07:06 Magnesium 2.10 mg/dL (1.7-2.3) 02/17/21 02:24 Medications & Allergies - Medications Allergies/Adverse Reactions: Allergies No Known Allergies Allergy (Verified 02/16/21 18:26) Home Medications: Home Medications Medication Instructions Recorded Confirmed Last Taken Type Calcium Acetate [Phoslo] 1,334 mg PO TIDWM #90 capsule 03/01/21 Unknown Rx Famotidine [Pepcid] 20 mg PO QAM #30 tablet 03/01/21 Unknown Rx Lactulose [Cephulac] 20 gm PO Q8HR 30 Days 03/01/21 Unknown Rx Lispro Insulin [HumaLOG] See Protocol SQ ACHS 30 Days 03/01/21 Unknown Rx allopurinoL [Zyloprim] 100 mg PO QDAY #30 tablet 03/01/21 Unknown Rx propranoloL [Inderal] 20 mg PO BID #60 tablet 03/01/21 Unknown Rx Active Medications: Generic Name Dose Route Start Last Admin Trade Name Freq PRN Reason Stop Dose Admin Acetaminophen 650 mg 02/18/21 22:38 03/09/21 13:15 Acetaminophen 325 Mg Tab PO 650 mg Q4H PRN Administration Pain MILD(1-3)/Fever >100.5/MOLINA Albuterol 2.5 mg 02/18/21 22:38 Albuterol 2.5 Mg/3 Ml Nebu IH Q3HRT PRN Shortness Of Breath Allopurinol 100 mg 02/20/21 10:00 03/30/21 09:13 Allopurinol 100 Mg Tab PO 100 mg QDAY LEYLA Administration Calcium Acetate 1,334 mg 02/20/21 08:30 03/30/21 12:04 Calcium Acetate 667 Mg Cap PO 1,334 mg TIDWM LEYLA Administration Dextrose 50 ml 03/29/21 12:00 Dextrose 50% In Water (25gm) 50 Ml Syringe IV Q30MIN PRN HYPOGLYCEMIA Protocol Diphenhydramine HCl 25 mg 02/23/21 09:10 03/24/21 09:01 Diphenhydramine 25 Mg Cap PO 25 mg BID PRN Administration Itching Famotidine 20 mg 02/19/21 10:00 03/30/21 09:17 Famotidine 20 Mg Tab PO 20 mg QAM LEYLA Administration Hydralazine HCl 10 mg 02/18/21 22:56 Hydralazine 20 Mg/1 Ml Inj IV Q6H PRN htn Hydroxyzine HCl 25 mg 03/24/21 10:38 Hydroxyzine Hcl 25 Mg Tab PO Q6H PRN Itching Sodium Chloride 100 mls @ 999 mls/hr 02/19/21 09:06 Nacl 0.9% IV OLIVIA PRN Hypotension Insulin Glargine 16 units 03/23/21 09:00 03/30/21 00:22 Insulin Glargine 100 Units/Ml SUB-Q 16 units QHS LEYLA Administration Insulin Human Lispro 0 unit 03/09/21 22:00 03/30/21 12:03 Insulin Lispro 100 Unit/Ml SUB-Q 3 unit ACHS LEYLA Administration Protocol Lactulose 20 gm 03/09/21 18:00 03/30/21 12:03 Lactulose 20 Gm/30 Ml Oral Liqd PO 20 gm Q6HR LEYLA Administration Midodrine 10 mg 03/27/21 22:00 03/30/21 12:05 Midodrine 5 Mg Tab PO 10 mg BID LEYLA Administration Ondansetron HCl 4 mg 02/18/21 22:38 02/28/21 12:32 Ondansetron 4 Mg/2 Ml Inj IV 4 mg Q8H PRN Administration Nausea And Vomiting Polyethylene Glycol 17 gm 02/24/21 12:08 02/24/21 12:47 Polyethylene Glycol 3350 17 Gm Powder PO 17 gm QDAY PRN Administration Constipation Propranolol HCl 20 mg 02/20/21 10:00 03/30/21 12:06 Propranolol 10 Mg Tab PO 20 mg BID LEYLA Administration Rifaximin 550 mg 03/10/21 12:00 03/30/21 12:04 Rifaximin 550 Mg Tab PO 550 mg BID LEYLA Administration Sodium Chloride 10 ml 02/19/21 10:00 03/30/21 12:05 Sodium Chloride 0.9% 10 Ml Flush Syringe IV Not Given BID LEYLA Sodium Chloride 10 ml 02/18/21 22:38 Sodium Chloride 0.9% 10 Ml Flush Syringe IV PRN PRN LINE FLUSH Zolpidem Tartrate 5 mg 02/24/21 09:54 03/08/21 23:25 Zolpidem 5 Mg Tab PO 5 mg QHS PRN Administration Sleep
[2021-03-31] MEDS: LACTULOSE 20 GM/30 ML ORAL LIQD PO SCH ×4 (00:36→17:40)
[2021-03-31] MEDS: INSULIN LISPRO 100 UNIT/ML SUB-Q SCH ×4 (08:35→22:04)
[2021-03-31] MEDS: CALCIUM ACETATE 667 MG CAP PO SCH ×3 (08:35→17:40)
[2021-03-31] MEDS: FAMOTIDINE 20 MG TAB PO SCH (08:59)
[2021-03-31] MEDS: PROPRANOLOL 10 MG TAB PO SCH ×2 (08:59→22:06)
[2021-03-31] MEDS: RIFAXIMIN 550 MG TAB PO SCH ×2 (08:59→22:23)
[2021-03-31] MEDS: allopurinoL 100 MG TAB PO SCH (08:59)
--- NOTE | 2021-03-31 09:45 | Progress Note ---
Assessment and Plan Assessment and plan: 55 YO Male with ESRD on HD, Noncompliance with outpatient dialysis, Anemia, HBV, Chronic Liver Disease, Cirrhosis complicated by Esophageal Varices, HTN, Debility, DM presents to ED with confusion with diminished cognition. Patient family report the patient was "not acting like himself" and found to have worsening confusion over the past 2 days. In the ER the patient was found to have hepatic encephalopathy complicated by diminished cognition, end-stage renal disease in need of urgent dialysis, as well as uncontrolled diabetes, and acidosis. -- Hepatic encephalopathy -Patient alert and oriented x3. due to hepatic cirrhosis has resolved cont lactulose, Neuro check, seizure precaution, aspiration precaution, fall precautions, continue to monitor. -Diarrhea resolved was secondary to lactulose. Patient is alert no encephalopathy. -- End stage renal disease Nephrology team consulted, strict I's/O, monitor urine output every shift, dialysis as per renal team, avoid nephrotoxic agents. Await dialysis center. Still no dialysis center. We will dialyze as indicated. --Metabolic Acidosis Nephrology team consulted, dialysis as per renal team. --Hyponatremia Monitor BMP, monitor fluid balance.-Does not require to be checked today we will check every other day now. -- Hyperammonemia Continue lactulose --Pruritus Add Atarax most likely secondary to liver failure --Diabetes mellitus with hyperglycemia Consistent carb diet, SSI -- hyperkalemia, Improvement with dialysis --Ascites, s/p paracentesis drained 6.2l of ascitic fluid -no further ascites at this time. --Sacral wound, pain control continue local wound care. -- Moderate Protein Calorie Malnutrition, nutrition consulted --Noncompliance, counseled for medication compliance --Depression discussed about depression and initiation of Zoloft /1: Resume dialysis will adjust insulin for better coverage. Very poor prognos is considering poor medical compliance. Agree with hospice recommendation. Will obtain wound care to continue to manage. Monitor anemia as patient was pretty anemic during the last hospitalization. Required transfusion. 02/20: Continues to undergo dialysis no change in mental status noted. Tolerating medications. Blood sugar mildly elevated adjusted insulin yesterday when awake for the patient received a dose today and if still elevated will adjust. Again case management is working on discharge plan for this patient as he is pending placement 02/21 patient complains of right hip pain. He said he fell few weeks ago and is concerned about another fracture. He had a fracture about 8 weeks ago and had surgery. Will obtain X ray right hip. Patient pending placement. 02/22 Patient seen in Dialysis Unit. He states hip pain improved. No other complaints. Right hip X ray done yesterday report read may be healing fracture or acute fracture. Will discuss with Orthopedic Surgeon Patient pending placement 02/23 Less hip pain. Today complains of generalized itching. Will start Benadryl po prn. Orthopedic consulted to evaluate right hip. Patient pending placement 02/24 Less hip pain. Generalized itching now resolved. Orthopedic consulted to evaluate right hip. He complains of sleeplessness. Will give Ambien prn Patient pending placement 02/25 Patient requested DNR status yesterday. I discussed with him and he signed forms. He also complains of worsening abdominal distension and requested tap ping, Will order paracentesis. Right hip evaluated by Dr. Trivedi and conservative management recommended. 02/26: Plan for paracentesis today. Need to set up dialysis as outpatient. assistant branch operations manager working on discharge planning. 02/27: Patient did not sign the consent for paracentesis yesterday so paracentesis was done today and aspirated 6.2L ascitic fluid. Patient refusing medication per RN. Getting dialysis. Patient noted slightly altered today, will place NG tube remains altered and keep refusing oral meds, order for ammonia level and will cont lactulose. 02/28: Patient appears much more calm and cooperative today. He stated that he has been refusing procedure and medication as he believes he was not in the right state of his mind. Patient acknowledges the importance of being compliant and he promises that he will take the medications as he will be given. Discharge planning per case management as patient would need outpatient dialysis center set up and personal prison set up. 03/01/21: Patient has custodial setting but according to director of casework services no available RN to accept the patient till Thursday. Continue supportive care. Discharge pending on placement. 03/02/21 -03/04/21: Discharge pending on placement, continue to monitor clinically. Continue current management and plan and supportive care. Patient need SNF placement. 03/05/2021; Awaiting SNF placement for discharge. Prognosis is very poor. Patient is nonresponsive. I try to reach to his son over the phone but could not get in touch. Patient is appropriate for hospice care. 03/06/2021; patient is awaiting SNF placement. Patient was alert and oriented. No confusion. Patient is stable to be discharged back to SNF. 03/07/2021; patient has hemoglobin of 6.8 this morning. A unit of blood ordered. Will monitor H&H. Nephrology is following for dialysis. 03/08/2021; patient's hemoglobin was 6.8 yesterday and transfused a unit of blood. I ordered yesterday to do posttransfusion H&H and was not done. CBC was ordered to be done this morning but was not done. COVID-19 test was done on 03/06 and positive. Nephrology is following the patient for his dialysis. Plan is to discharge him to SNF. Will follow with case management because patient is Covid positive. 03/09/2021; patient's repeat Covid test on 03/08/2021 was positive. Patient is pending for SNF Placement. Patient had hypoglycemia yesterday and patient was placed on Lantus and his sliding scale adjusted to high dose. Will monitor and adjust as needed. 03/10/2021; pending SNF placement. Covid test was positive on and . 03/11/2021; patient has hepatic encephalopathy and his ammonia level is very high, patient is currently on lactulose and rifaximin. Ammonia level is trending down. Nephrology is following for dialysis. Patient has positive Covid test last one was on 03/08, that makes placement difficult. Continue with case management. 03/12: Still awaiting placement, discussed with nursing staff to monitor mental status changes. Will check ammonia level. Continue to adjust blood sugar. Complicated by COVID POSITIVELY. Awaiting placement for the patient. Also dialysis chair time. I have discussed with case management as my understanding was that patient was to go for hospice but this plan appears to have changed possibly not clear to me at this time 03/13: Continue supportive care crush medications that can be crushed. Ammonia level is elevated but not as elevated as previously. Continue lactulose advised nursing staff that this should be given as ordered to communicate with the night team also. Unfortunately when the patient gets better he refuses his lactulose. I truly believe that we should strongly consider palliative care for this patient but nevertheless if he wants to continue dialysis and will be compliant with his medications this is definitely an option can be pursued. Aspiration precautions monitor hemoglobin and platelets. 03/14: Patient seen and examined, more awake today. Continue supportive care, patient was made DNR wade, signed the form today after confirming the patient and also the physician. Monitor for fever. AWAITING PLACEMENT. poor prognosis 03/15/21 Patient is seen and examined. Lab and medication reviewed. Patient denied any chest pain or shortness of breath. Patient is more awake alert today. Patient is getting them hemodialysis today. Continue current management. Awaiting placement. 03/16/21 patient seen and examined. Lab and medication reviewed. Patient feels better. Hemoglobin 8.2 and hematocrit 23.9. Complained of pain in the butt. No other complain. Continue current management and supportive care. Patient is waiting for placement. 03/17: Patient remains with poor prognosis refusing dietary intake. Again discussed hospice and palliative care management considering his current medical condition and declining poor prognostic factors. Discussed with nursing staff patient will continue with lactulose had refused this morning but did take it yesterday. Continue aspiration precautions. Discussed the importance of taking the medication the patient verbalized understanding 03/18: Patient undergoing HD discharge planning ongoing discussed with case management team. Covid test ordered today for placement purposes. 03/19/2021; Covid test was ordered and result is pending. Pending placement. 03/20/2021; patient's Covid test was positive again on 03/20/2021. Pending placement. 03/21/2021. Patient cooperative no acute distress at this time. Complains of loose stool diarrhea. Still awaiting placement. Unable to find hemodialysis placement 03/22/2021. Patient last Covid test was positive however initial test was greater than 14 days ago. Patient is no longer infected. Unable to find hemodialysis line at present. Patient being evaluated for [facility]. 03/23/2021. Patient continues to state he feels good much better at this time. Resting comfortably. No distress noted. Still awaiting hemodialysis center. 03/24/2021 patient with flat mood discussed about depression. Resting comfortably watching TV. 03/25/2021. Patient denies depression at this time. Complains of itching all over. When am i getting out of here 03/26/2021. Case management reports patient is still awaiting hemodialysis placem ent 03/27/2021. Case management reports patient is still awaiting hemodialysis placement. Patient is on maintenance hemodialysis three times a week, MWF schedule. Cont. Lactulose and Rifaximin. Epogen with HD. 03/28/2021. Case management reports patient is still awaiting hemodialysis placement. 03/29/2021. Plan is for the patient to go to [facility] and awaiting on hemodialysis arrangements. [facility] and does not have a bed available. Covid test ordered. We will continue to follow up with case management on discharge planning. 03/30/2021. No new developments. Await hemodialysis placement and potential transfer to [facility]. 03/31/2021. No new developments. Await hemodialysis placement and potential transfer to [facility]. History Interval history: No new issues Hospitalist Physical - Constitutional Vitals: Temp Pulse Resp BP Pulse Ox 98.0 F 70 19 123/64 98 03/31/21 06:41 03/31/21 06:41 03/31/21 06:41 03/31/21 06:41 03/31/21 06:41 General appearance: Present: cachectic, other (Temporal wasting) - EENT Eyes: Present: PERRL, EOM intact ENT: hearing intact, clear oral mucosa, dentition normal - Neck Neck: Present: supple, normal ROM - Respiratory Respiratory effort: normal Respiratory: bilateral: CTA - Cardiovascular Rhythm: regular Heart Sounds: Present: S1 & S2. Absent: gallop, rub - Extremities Extremities: no ischemia, No edema, Full ROM - Abdominal General gastrointestinal: soft, non-tender, non-distended, normal bowel sounds - Integumentary Integumentary: Present: clear, warm, dry - Neurologic Neurologic: CNII-XII intact, moves all extremities Results - Labs CBC & Chem 7: 03/30/21 05:11 03/28/21 07:06 Labs: Laboratory Last Values WBC 4.5 K/mm3 (4.5-11.0) 03/24/21 06:37 RBC 2.53 M/mm3 (3.65-5.03) L 03/24/21 06:37 Hgb 8.0 gm/dl (11.8-15.2) L 03/30/21 05:11 Hct 23.7 % (35.5-45.6) L 03/30/21 05:11 MCV 90 fl (84-94) 03/24/21 06:37 MCH 31 pg (28-32) 03/24/21 06:37 MCHC 35 % (32-34) H 03/24/21 06:37 RDW 15.2 % (13.2-15.2) 03/24/21 06:37 Plt Count 147 K/mm3 (140-440) 03/24/21 06:37 Lymph % (Auto) 13.3 % (13.4-35.0) L 03/24/21 06:37 Travis % (Auto) 10.9 % (0.0-7.3) H 03/24/21 06:37 Eos % (Auto) 1.7 % (0.0-4.3) 03/24/21 06:37 Baso % (Auto) 0.9 % (0.0-1.8) 03/24/21 06:37 Lymph # (Auto) 0.6 K/mm3 (1.2-5.4) L 03/24/21 06:37 Travis # (Auto) 0.5 K/mm3 (0.0-0.8) 03/24/21 06:37 Eos # (Auto) 0.1 K/mm3 (0.0-0.4) 03/24/21 06:37 Baso # (Auto) 0.0 K/mm3 (0.0-0.1) 03/24/21 06:37 Add Manual Diff Complete 03/07/21 05:23 Total Counted 100 03/07/21 05:23 Seg Neutrophils % 73.2 % (40.0-70.0) H 03/24/21 06:37 Seg Neuts % (Manual) 78.0 % (40.0-70.0) H 03/07/21 05:23 Lymphocytes % (Manual) 13.0 % (13.4-35.0) L 03/07/21 05:23 Monocytes % (Manual) 9.0 % (0.0-7.3) H 03/07/21 05:23 Nucleated RBC % Not Reportable 03/07/21 05:23 Seg Neutrophils # 3.3 K/mm3 (1.8-7.7) 03/24/21 06:37 Seg Neutrophils # Man 2.0 K/mm3 (1.8-7.7) 03/07/21 05:23 Band Neutrophils # 0.0 K/mm3 03/07/21 05:23 Lymphocytes # (Manual) 0.3 K/mm3 (1.2-5.4) L 03/07/21 05:23 Abs React Lymphs (Man) 0.0 K/mm3 03/07/21 05:23 Monocytes # (Manual) 0.2 K/mm3 (0.0-0.8) 03/07/21 05:23 Eosinophils # (Manual) 0.0 K/mm3 (0.0-0.4) 03/07/21 05:23 Basophils # (Manual) 0.0 K/mm3 (0.0-0.1) 03/07/21 05:23 Metamyelocytes # 0.0 K/mm3 03/07/21 05:23 Myelocytes # 0.0 K/mm3 03/07/21 05:23 Promyelocytes # 0.0 K/mm3 03/07/21 05:23 Blast Cells # 0.0 K/mm3 03/07/21 05:23 WBC Morphology Not Reportable 03/07/21 05:23 Hypersegmented Neuts Not Reportable 03/07/21 05:23 Hyposegmented Neuts Not Reportable 03/07/21 05:23 Hypogranular Neuts Not Reportable 03/07/21 05:23 Smudge Cells Not Reportable 03/07/21 05:23 Toxic Granulation Not Reportable 03/07/21 05:23 Toxic Vacuolation Not Reportable 03/07/21 05:23 Dohle Bodies Not Reportable 03/07/21 05:23 Pelger-Huet Anomaly Not Reportable 03/07/21 05:23 Cosme Rods Not Reportable 03/07/21 05:23 Platelet Estimate Consistent w auto 03/07/21 05:23 Clumped Platelets Not Reportable 03/07/21 05:23 Plt Clumps, EDTA Not Reportable 03/07/21 05:23 Large Platelets Not Reportable 03/07/21 05:23 Giant Platelets Not Reportable 03/07/21 05:23 Platelet Satelliting Not Reportable 03/07/21 05:23 Plt Morphology Comment Not Reportable 03/07/21 05:23 RBC Morphology Not Reportable 03/07/21 05:23 Dimorphic RBCs Not Reportable 03/07/21 05:23 Polychromasia Not Reportable 03/07/21 05:23 Hypochromasia Not Reportable 03/07/21 05:23 Poikilocytosis Not Reportable 03/07/21 05:23 Anisocytosis Few 03/07/21 05:23 Microcytosis Not Reportable 03/07/21 05:23 Macrocytosis Not Reportable 03/07/21 05:23 Spherocytes Not Reportable 03/07/21 05:23 Pappenheimer Bodies Not Reportable 03/07/21 05:23 Sickle Cells Not Reportable 03/07/21 05:23 Target Cells Not Reportable 03/07/21 05:23 Tear Drop Cells Not Reportable 03/07/21 05:23 Ovalocytes Not Reportable 03/07/21 05:23 Helmet Cells Not Reportable 03/07/21 05:23 Mercado-Ipava Bodies Not Reportable 03/07/21 05:23 Flushing Rings Not Reportable 03/07/21 05:23 Kathy Cells Not Reportable 03/07/21 05:23 Bite Cells Not Reportable 03/07/21 05:23 Crenated Cell Not Reportable 03/07/21 05:23 Elliptocytes Not Reportable 03/07/21 05:23 Acanthocytes (Spur) Not Reportable 03/07/21 05:23 Rouleaux Not Reportable 03/07/21 05:23 Hemoglobin C Crystals Not Reportable 03/07/21 05:23 Schistocytes Not Reportable 03/07/21 05:23 Malaria parasites Not Reportable 03/07/21 05:23 Samir Bodies Not Reportable 03/07/21 05:23 Hem Pathologist Commnt No 03/07/21 05:23 PT 13.7 Sec. (12.2-14.9) 02/26/21 04:33 INR 1.00 (0.87-1.13) 02/26/21 04:33 Sodium 140 mmol/L (137-145) 03/28/21 07:06 Potassium 3.7 mmol/L (3.6-5.0) 03/28/21 07:06 Chloride 98.1 mmol/L (98-107) 03/28/21 07:06 Carbon Dioxide 30 mmol/L (22-30) 03/28/21 07:06 Anion Gap 16 mmol/L 03/28/21 07:06 BUN 38 mg/dL (9-20) H 03/28/21 07:06 Creatinine 5.2 mg/dL (0.8-1.3) H 03/28/21 07:06 Estimated GFR 12 ml/min 03/28/21 07:06 BUN/Creatinine Ratio 7 % 03/28/21 07:06 Glucose 64 mg/dL (75-100) L 03/28/21 07:06 POC Glucose 188 mg/dL (70-105) H 03/31/21 06:51 Hemoglobin A1c 7.4 % (4-6) H 02/26/21 04:33 Calcium 8.4 mg/dL (8.4-10.2) 03/28/21 07:06 Magnesium 2.10 mg/dL (1.7-2.3) 02/17/21 02:24 Iron 52 ug/dL (49-181) 03/30/21 05:11 TIBC 203 mcg/dL (250-450) L 03/30/21 05:11 Ferritin 70.9 ng/mL (30.0-300.0) 03/30/21 05:11 Total Bilirubin 0.60 mg/dL (0.1-1.2) 03/14/21 07:24 Direct Bilirubin 0.3 mg/dL (0-0.2) H 03/14/21 07:24 Indirect Bilirubin 0.3 mg/dL 03/14/21 07:24 AST 57 units/L (5-40) H 03/14/21 07:24 ALT 24 units/L (7-56) 03/14/21 07:24 Alkaline Phosphatase 179 units/L (35-129) H 03/14/21 07:24 Ammonia 30.0 umol/L (25-60) 03/14/21 07:24 Total Creatine Kinase 86 units/L (55-170) 02/17/21 02:24 Total Protein 6.2 g/dL (6.3-8.2) L 03/14/21 07:24 Albumin 2.3 g/dL (3.9-5) L 03/14/21 07:24 Albumin/Globulin Ratio 0.6 % 03/14/21 07:24 Vitamin B12 1583 pg/mL (211-911) H 03/30/21 05:11 Folate 10.11 ng/mL (7.3-26.0) 03/30/21 05:11 TSH 0.986 mlU/mL (0.270-4.200) 02/17/21 02:24 Urine Color Yellow (Yellow) 02/17/21 Unknown Urine Turbidity Clear (Clear) 02/17/21 Unknown Urine pH 6.0 (5.0-7.0) 02/17/21 Unknown Ur Specific [place] 1.012 (1.003-1.030) 02/17/21 Unknown Urine Protein 100 mg/dl mg/dL (Negative) 02/17/21 Unknown Urine Glucose (UA) >=500 mg/dL (Negative) 02/17/21 Unknown Urine Ketones Neg mg/dL (Negative) 02/17/21 Unknown Urine Blood Neg (Negative) 02/17/21 Unknown Urine Nitrite Neg (Negative) 02/17/21 Unknown Urine Bilirubin Neg (Negative) 02/17/21 Unknown Urine Urobilinogen < 2.0 mg/dL (<2.0) 02/17/21 Unknown Ur Leukocyte Esterase Neg (Negative) 02/17/21 Unknown Urine WBC (Auto) 2.0 /HPF (0.0-6.0) 02/17/21 Unknown Urine RBC (Auto) 2.0 /HPF (0.0-6.0) 02/17/21 Unknown U Epithel Cells (Auto) < 1.0 /HPF (0-13.0) 02/17/21 Unknown Urine Bacteria (Auto) 1+ /HPF (Negative) 02/17/21 Unknown Salicylates < 0.3 mg/dL (2.8-20.0) L 02/17/21 02:24 Acetaminophen 5.0 ug/mL (10.0-30.0) L 02/17/21 02:24 Coronavirus (PCR) Positive (Negative) A 03/29/21 Unknown Hepatitis A IgM Ab Non-reactive (NonReactive) 02/28/21 12:37 Hep Bs Antigen Non-reactive (Negative) 03/28/21 18:57 Hep B Core IgM Ab Non-reactive (NonReactive) 02/28/21 12:37 Hepatitis C Antibody Non-reactive (NonReactive) 02/28/21 12:37 Blood Type A POSITIVE 03/07/21 06:31 Antibody Screen Negative 03/07/21 06:31 Crossmatch See Detail 03/07/21 06:31 Sr/IV: Voiding Method Incontinent Active Medications - Current Medications Current Medications: Generic Name Dose Route Start Last Admin Trade Name Freq PRN Reason Stop Dose Admin Acetaminophen 650 mg 02/18/21 22:38 03/09/21 13:15 Acetaminophen 325 Mg Tab PO 650 mg Q4H PRN Administration Pain MILD(1-3)/Fever >100.5/MOLINA Albuterol 2.5 mg 02/18/21 22:38 Albuterol 2.5 Mg/3 Ml Nebu IH Q3HRT PRN Shortness Of Breath Allopurinol 100 mg 02/20/21 10:00 03/31/21 08:59 Allopurinol 100 Mg Tab PO 100 mg QDAY LEYLA Administration Calcium Acetate 1,334 mg 02/20/21 08:30 03/31/21 08:35 Calcium Acetate 667 Mg Cap PO 1,334 mg TIDWM LEYLA Administration Dextrose 50 ml 03/29/21 12:00 Dextrose 50% In Water (25gm) 50 Ml Syringe IV Q30MIN PRN HYPOGLYCEMIA Protocol Diphenhydramine HCl 25 mg 02/23/21 09:10 03/24/21 09:01 Diphenhydramine 25 Mg Cap PO 25 mg BID PRN Administration Itching Famotidine 20 mg 02/19/21 10:00 03/31/21 08:59 Famotidine 20 Mg Tab PO 20 mg QAM LEYLA Administration Hydralazine HCl 10 mg 02/18/21 22:56 Hydralazine 20 Mg/1 Ml Inj IV Q6H PRN htn Hydroxyzine HCl 25 mg 03/24/21 10:38 Hydroxyzine Hcl 25 Mg Tab PO Q6H PRN Itching Sodium Chloride 100 mls @ 999 mls/hr 02/19/21 09:06 Nacl 0.9% IV OLIVIA PRN Hypotension Insulin Glargine 16 units 03/23/21 09:00 03/30/21 22:49 Insulin Glargine 100 Units/Ml SUB-Q 16 units QHS LEYLA Administration Insulin Human Lispro 0 unit 03/09/21 22:00 03/31/21 08:35 Insulin Lispro 100 Unit/Ml SUB-Q 3 unit ACHS LEYLA Administration Protocol Lactulose 20 gm 03/09/21 18:00 03/31/21 06:14 Lactulose 20 Gm/30 Ml Oral Liqd PO 20 gm Q6HR LEYLA Administration Ondansetron HCl 4 mg 02/18/21 22:38 02/28/21 12:32 Ondansetron 4 Mg/2 Ml Inj IV 4 mg Q8H PRN Administration Nausea And Vomiting Polyethylene Glycol 17 gm 02/24/21 12:08 02/24/21 12:47 Polyethylene Glycol 3350 17 Gm Powder PO 17 gm QDAY PRN Administration Constipation Propranolol HCl 20 mg 02/20/21 10:00 03/31/21 08:59 Propranolol 10 Mg Tab PO 20 mg BID LEYLA Administration Rifaximin 550 mg 03/10/21 12:00 03/31/21 08:59 Rifaximin 550 Mg Tab PO 550 mg BID LEYLA Administration Sodium Chloride 10 ml 02/19/21 10:00 03/31/21 09:01 Sodium Chloride 0.9% 10 Ml Flush Syringe IV Not Given BID LEYLA Sodium Chloride 10 ml 02/18/21 22:38 Sodium Chloride 0.9% 10 Ml Flush Syringe IV PRN PRN LINE FLUSH Zolpidem Tartrate 5 mg 02/24/21 09:54 03/08/21 23:25 Zolpidem 5 Mg Tab PO 5 mg QHS PRN Administration Sleep Nutrition/Malnutrition Assess - Dietary Evaluation Nutrition/Malnutrition Findings: Nutrition Notes Start: 02/19/21 10:48 Freq: Status: Active Protocol: Document 03/29/21 12:16 (Rec: 03/29/21 12:18 [email or web address]) Nutrition Notes Initial or Follow up Reassessment Current Diagnosis CKD (stage V CKD),Diabetes Other Pertinent Diagnosis COVID-19 (+), hepatic encephalopathy, ascites Current Diet Renal/Consistent CHO + Nepro once daily Labs/Tests POC BG 68-234 Pertinent Medications Reviewed Height 5 ft 11 in Weight 66.5 kg [place] Body Weight (kg) 78.18 BMI 20.4 Weight Status Appropriate Subjective/Other Information FU for intakes. Pt not answering phone. Per chart, pt ate 100% of meals yesterday. Percent of energy/protein needs met: 100%/100% Burn Absent Trauma Absent Current % PO Good (75-100%) Minimum of two criteria Yes Body Fat Depletion Mild depletion (non-severe) Fluid Accumulation Mild (non-severe) #2 Nutrition Diagnosis Increased nutrient needs ( specify in comment below) Diagnosis Progress(for reassessment Continues documentation) #1 Nutrition Diagnosis Malnutrition Diagnosis Progress(for reassessment Continues documentation) Is patient on ventilator? No Is Patient Ambulatory and/or Out of Bed No REE-([facility]-confined to bed) 1825.128 Calculation Used for Recommendations [facility] Additional Notes Pro needs >1.2g/kg/day Fluid needs 1-1.5L/day Nutrition Intervention Change Diet Order: Continue current Add Supplement/Snack (indicate name/kcal Nepro daily /protein ) Provides kCal: 425 Provides Protein (gm) 19 Goal #1 PO intake of meals plus ONS to meet at least 75% energy and pro needs Goal #2 Wound healing Follow-Up By: 04/05/21 Additional Comments F/U for stable intakes and ONS tolerance
--- NOTE | 2021-03-31 12:56 | Progress Note ---
Assessment and Plan 1. ESRD: Patient is on maintenance hemodialysis three times a week, MWF schedule. Meds dosage based on GFR. Missed HD 02/18. Hemodialysis: 02/19, 02/20, 02/22, 02/25, 02/27, 03/01, 03/04, 03/06, 03/08, 03/11, 03/13, 03/15, 03/18, 03/20, 03/22, 03/25, 03/27, 03/29. 2. FEN: Hyperkalemia, improved. Monitor lytes and volume status. 3. Anemia, POA: 2/2 ESRD and Liver disease. Epogen with HD. PRBC as needed. 4. Cirrhosis with h/o hepatic encephalopathy: Lactulose and Rifaximin. Monitor. 5. DM type 2: SSI. Monitor. 6. Thrombocytopenia, POA. 7. Hypotension: BP is intermittently low especially while on hemodialysis. Was on Midodrine. Await placement. Subjective: Patient was seen and examined at the bedside. General Appearance: General appearance: well-developed, appears stated age, not in distress HEENT: ATNC, pupils equal Neck: trachea midline Respiratory: ctab Heart: regular, S1S2, no murmur Abdomen: soft, bowel sounds heard, slightly distended, not tender Integumentary: no rash, warm and dry Neurologic: lethargic, not following any command, moving extremities Ext: no edema, R BKA Hemodialysis access: R arm AVF Subjective Date of service: 03/31/21 Principal diagnosis: Acute renal failure Objective - Vital Signs Vital signs: Vital Signs - 12hr 03/31/21 06:41 Temperature 98.0 F Pulse Rate 70 Respiratory 19 Rate Blood Pressure 123/64 O2 Sat by Pulse 98 Oximetry - Lab 03/30/21 05:11 03/28/21 07:06 Most recent lab results Calcium 8.4 mg/dL (8.4-10.2) 03/28/21 07:06 Magnesium 2.10 mg/dL (1.7-2.3) 02/17/21 02:24 Medications & Allergies - Medications Allergies/Adverse Reactions: Allergies No Known Allergies Allergy (Verified 02/16/21 18:26) Home Medications: Home Medications Medication Instructions Recorded Confirmed Last Taken Type Calcium Acetate [Phoslo] 1,334 mg PO TIDWM #90 capsule 03/01/21 Unknown Rx Famotidine [Pepcid] 20 mg PO QAM #30 tablet 03/01/21 Unknown Rx Lactulose [Cephulac] 20 gm PO Q8HR 30 Days 03/01/21 Unknown Rx Lispro Insulin [HumaLOG] See Protocol SQ ACHS 30 Days 03/01/21 Unknown Rx allopurinoL [Zyloprim] 100 mg PO QDAY #30 tablet 03/01/21 Unknown Rx propranoloL [Inderal] 20 mg PO BID #60 tablet 03/01/21 Unknown Rx Active Medications: Generic Name Dose Route Start Last Admin Trade Name Freq PRN Reason Stop Dose Admin Acetaminophen 650 mg 02/18/21 22:38 03/09/21 13:15 Acetaminophen 325 Mg Tab PO 650 mg Q4H PRN Administration Pain MILD(1-3)/Fever >100.5/MOLINA Albuterol 2.5 mg 02/18/21 22:38 Albuterol 2.5 Mg/3 Ml Nebu IH Q3HRT PRN Shortness Of Breath Allopurinol 100 mg 02/20/21 10:00 03/31/21 08:59 Allopurinol 100 Mg Tab PO 100 mg QDAY LEYLA Administration Calcium Acetate 1,334 mg 02/20/21 08:30 03/31/21 08:35 Calcium Acetate 667 Mg Cap PO 1,334 mg TIDWM LEYLA Administration Dextrose 50 ml 03/29/21 12:00 Dextrose 50% In Water (25gm) 50 Ml Syringe IV Q30MIN PRN HYPOGLYCEMIA Protocol Diphenhydramine HCl 25 mg 02/23/21 09:10 03/24/21 09:01 Diphenhydramine 25 Mg Cap PO 25 mg BID PRN Administration Itching Famotidine 20 mg 02/19/21 10:00 03/31/21 08:59 Famotidine 20 Mg Tab PO 20 mg QAM LEYLA Administration Hydralazine HCl 10 mg 02/18/21 22:56 Hydralazine 20 Mg/1 Ml Inj IV Q6H PRN htn Hydroxyzine HCl 25 mg 03/24/21 10:38 Hydroxyzine Hcl 25 Mg Tab PO Q6H PRN Itching Sodium Chloride 100 mls @ 999 mls/hr 02/19/21 09:06 Nacl 0.9% IV OLIVIA PRN Hypotension Insulin Glargine 16 units 03/23/21 09:00 03/30/21 22:49 Insulin Glargine 100 Units/Ml SUB-Q 16 units QHS LEYLA Administration Insulin Human Lispro 0 unit 03/09/21 22:00 03/31/21 08:35 Insulin Lispro 100 Unit/Ml SUB-Q 3 unit ACHS LEYLA Administration Protocol Lactulose 20 gm 03/09/21 18:00 03/31/21 06:14 Lactulose 20 Gm/30 Ml Oral Liqd PO 20 gm Q6HR LEYLA Administration Ondansetron HCl 4 mg 02/18/21 22:38 02/28/21 12:32 Ondansetron 4 Mg/2 Ml Inj IV 4 mg Q8H PRN Administration Nausea And Vomiting Polyethylene Glycol 17 gm 02/24/21 12:08 02/24/21 12:47 Polyethylene Glycol 3350 17 Gm Powder PO 17 gm QDAY PRN Administration Constipation Propranolol HCl 20 mg 02/20/21 10:00 03/31/21 08:59 Propranolol 10 Mg Tab PO 20 mg BID LEYLA Administration Rifaximin 550 mg 03/10/21 12:00 03/31/21 08:59 Rifaximin 550 Mg Tab PO 550 mg BID LEYLA Administration Sodium Chloride 10 ml 02/19/21 10:00 03/31/21 09:01 Sodium Chloride 0.9% 10 Ml Flush Syringe IV Not Given BID LEYLA Sodium Chloride 10 ml 02/18/21 22:38 Sodium Chloride 0.9% 10 Ml Flush Syringe IV PRN PRN LINE FLUSH Zolpidem Tartrate 5 mg 02/24/21 09:54 03/08/21 23:25 Zolpidem 5 Mg Tab PO 5 mg QHS PRN Administration Sleep
[2021-03-31] MEDS: INSULIN GLARGINE 100 UNITS/ML SUB-Q SCH (22:22)
[2021-04-01] MEDS: LACTULOSE 20 GM/30 ML ORAL LIQD PO SCH ×4 (00:24→19:06)
--- NOTE | 2021-04-01 07:44 | Progress Note ---
Assessment and Plan Assessment and plan: 55 YO Male with ESRD on HD, Noncompliance with outpatient dialysis, Anemia, HBV, Chronic Liver Disease, Cirrhosis complicated by Esophageal Varices, HTN, Debility, DM presents to ED with confusion with diminished cognition. Patient family report the patient was "not acting like himself" and found to have worsening confusion over the past 2 days. In the ER the patient was found to have hepatic encephalopathy complicated by diminished cognition, end-stage renal disease in need of urgent dialysis, as well as uncontrolled diabetes, and acidosis. -- Hepatic encephalopathy -Patient alert and oriented x3. due to hepatic cirrhosis has resolved cont lactulose, Neuro check, seizure precaution, aspiration precaution, fall precautions, continue to monitor. -Diarrhea resolved was secondary to lactulose. Patient is alert no encephalopathy. -- End stage renal disease Nephrology team consulted, strict I's/O, monitor urine output every shift, dialysis as per renal team, avoid nephrotoxic agents. Await dialysis center. Still no dialysis center. We will dialyze as indicated. --Metabolic Acidosis Nephrology team consulted, dialysis as per renal team. --Hyponatremia Monitor BMP, monitor fluid balance.-Does not require to be checked today we will check every other day now. -- Hyperammonemia Continue lactulose --Pruritus Add Atarax most likely secondary to liver failure --Diabetes mellitus with hyperglycemia Consistent carb diet, SSI -- hyperkalemia, Improvement with dialysis --Ascites, s/p paracentesis drained 6.2l of ascitic fluid -no further ascites at this time. --Sacral wound, pain control continue local wound care. -- Moderate Protein Calorie Malnutrition, nutrition consulted --Noncompliance, counseled for medication compliance --Depression discussed about depression and initiation of Zoloft /1: Resume dialysis will adjust insulin for better coverage. Very poor prognos is considering poor medical compliance. Agree with hospice recommendation. Will obtain wound care to continue to manage. Monitor anemia as patient was pretty anemic during the last hospitalization. Required transfusion. 02/20: Continues to undergo dialysis no change in mental status noted. Tolerating medications. Blood sugar mildly elevated adjusted insulin yesterday when awake for the patient received a dose today and if still elevated will adjust. Again case management is working on discharge plan for this patient as he is pending placement 02/21 patient complains of right hip pain. He said he fell few weeks ago and is concerned about another fracture. He had a fracture about 8 weeks ago and had surgery. Will obtain X ray right hip. Patient pending placement. 02/22 Patient seen in Dialysis Unit. He states hip pain improved. No other complaints. Right hip X ray done yesterday report read may be healing fracture or acute fracture. Will discuss with Orthopedic Surgeon Patient pending placement 02/23 Less hip pain. Today complains of generalized itching. Will start Benadryl po prn. Orthopedic consulted to evaluate right hip. Patient pending placement 02/24 Less hip pain. Generalized itching now resolved. Orthopedic consulted to evaluate right hip. He complains of sleeplessness. Will give Ambien prn Patient pending placement 02/25 Patient requested DNR status yesterday. I discussed with him and he signed forms. He also complains of worsening abdominal distension and requested tap ping, Will order paracentesis. Right hip evaluated by Dr. Trivedi and conservative management recommended. 02/26: Plan for paracentesis today. Need to set up dialysis as outpatient. document manager working on discharge planning. 02/27: Patient did not sign the consent for paracentesis yesterday so paracentesis was done today and aspirated 6.2L ascitic fluid. Patient refusing medication per RN. Getting dialysis. Patient noted slightly altered today, will place NG tube remains altered and keep refusing oral meds, order for ammonia level and will cont lactulose. 02/28: Patient appears much more calm and cooperative today. He stated that he has been refusing procedure and medication as he believes he was not in the right state of his mind. Patient acknowledges the importance of being compliant and he promises that he will take the medications as he will be given. Discharge planning per case management as patient would need outpatient dialysis center set up and personal chcf set up. 03/01/21: Patient has [facility] setting but according to case management assistant no available RN to accept the patient till Thursday. Continue supportive care. Discharge pending on placement. 03/02/21 -03/04/21: Discharge pending on placement, continue to monitor clinically. Continue current management and plan and supportive care. Patient need SNF placement. 03/05/2021; Awaiting SNF placement for discharge. Prognosis is very poor. Patient is nonresponsive. I try to reach to his son over the phone but could not get in touch. Patient is appropriate for hospice care. 03/06/2021; patient is awaiting SNF placement. Patient was alert and oriented. No confusion. Patient is stable to be discharged back to SNF. 03/07/2021; patient has hemoglobin of 6.8 this morning. A unit of blood ordered. Will monitor H&H. Nephrology is following for dialysis. 03/08/2021; patient's hemoglobin was 6.8 yesterday and transfused a unit of blood. I ordered yesterday to do posttransfusion H&H and was not done. CBC was ordered to be done this morning but was not done. COVID-19 test was done on 03/06 and positive. Nephrology is following the patient for his dialysis. Plan is to discharge him to SNF. Will follow with case management because patient is Covid positive. 03/09/2021; patient's repeat Covid test on 03/08/2021 was positive. Patient is pending for SNF Placement. Patient had hypoglycemia yesterday and patient was placed on Lantus and his sliding scale adjusted to high dose. Will monitor and adjust as needed. 03/10/2021; pending SNF placement. Covid test was positive on and . 03/11/2021; patient has hepatic encephalopathy and his ammonia level is very high, patient is currently on lactulose and rifaximin. Ammonia level is trending down. Nephrology is following for dialysis. Patient has positive Covid test last one was on 03/08, that makes placement difficult. Continue with case management. 03/12: Still awaiting placement, discussed with nursing staff to monitor mental status changes. Will check ammonia level. Continue to adjust blood sugar. Complicated by COVID POSITIVELY. Awaiting placement for the patient. Also dialysis chair time. I have discussed with case management as my understanding was that patient was to go for hospice but this plan appears to have changed possibly not clear to me at this time 03/13: Continue supportive care crush medications that can be crushed. Ammonia level is elevated but not as elevated as previously. Continue lactulose advised nursing staff that this should be given as ordered to communicate with the night team also. Unfortunately when the patient gets better he refuses his lactulose. I truly believe that we should strongly consider palliative care for this patient but nevertheless if he wants to continue dialysis and will be compliant with his medications this is definitely an option can be pursued. Aspiration precautions monitor hemoglobin and platelets. 03/14: Patient seen and examined, more awake today. Continue supportive care, patient was made DNR wade, signed the form today after confirming the patient and also the physician. Monitor for fever. AWAITING PLACEMENT. poor prognosis 03/15/21 Patient is seen and examined. Lab and medication reviewed. Patient denied any chest pain or shortness of breath. Patient is more awake alert today. Patient is getting them hemodialysis today. Continue current management. Awaiting placement. 03/16/21 patient seen and examined. Lab and medication reviewed. Patient feels better. Hemoglobin 8.2 and hematocrit 23.9. Complained of pain in the butt. No other complain. Continue current management and supportive care. Patient is waiting for placement. 03/17: Patient remains with poor prognosis refusing dietary intake. Again discussed hospice and palliative care management considering his current medical condition and declining poor prognostic factors. Discussed with nursing staff patient will continue with lactulose had refused this morning but did take it yesterday. Continue aspiration precautions. Discussed the importance of taking the medication the patient verbalized understanding 03/18: Patient undergoing HD discharge planning ongoing discussed with case management team. Covid test ordered today for placement purposes. 03/19/2021; Covid test was ordered and result is pending. Pending placement. 03/20/2021; patient's Covid test was positive again on 03/20/2021. Pending placement. 03/21/2021. Patient cooperative no acute distress at this time. Complains of loose stool diarrhea. Still awaiting placement. Unable to find hemodialysis placement 03/22/2021. Patient last Covid test was positive however initial test was greater than 14 days ago. Patient is no longer infected. Unable to find hemodialysis line at present. Patient being evaluated for [facility]. 03/23/2021. Patient continues to state he feels good much better at this time. Resting comfortably. No distress noted. Still awaiting hemodialysis center. 03/24/2021 patient with flat mood discussed about depression. Resting comfortably watching TV. 03/25/2021. Patient denies depression at this time. Complains of itching all over. When am i getting out of here 03/26/2021. Case management reports patient is still awaiting hemodialysis placem ent 03/27/2021. Case management reports patient is still awaiting hemodialysis placement. Patient is on maintenance hemodialysis three times a week, MWF schedule. Cont. Lactulose and Rifaximin. Epogen with HD. 03/28/2021. Case management reports patient is still awaiting hemodialysis placement. 03/29/2021. Plan is for the patient to go to [facility] and awaiting on hemodialysis arrangements. [facility] and does not have a bed available. Covid test ordered. We will continue to follow up with case management on discharge planning. 03/30/2021. No new developments. Await hemodialysis placement and potential transfer to [facility]. 03/31/2021. No new developments. Await hemodialysis placement and potential transfer to [facility]. 04/01/2021. Patient resting comfortably. No new issues overnight. Plan is for the patient to go to [facility] and awaiting on hemodialysis arrangements. [facility] and does not have a bed available. Latest Covid test was positive on 03/29/2021. We will continue to follow up with case manag bobby on discharge planning. History Interval history: No new issues Hospitalist Physical - Constitutional Vitals: Temp Pulse Resp BP Pulse Ox 97.3 F L 75 16 156/79 79 L 04/01/21 04:13 04/01/21 04:13 04/01/21 04:13 03/31/21 22:56 04/01/21 04:13 General appearance: Present: cachectic, other (Temporal wasting) - EENT Eyes: Present: PERRL, EOM intact ENT: hearing intact, clear oral mucosa, dentition normal - Neck Neck: Present: supple, normal ROM - Respiratory Respiratory effort: normal Respiratory: bilateral: CTA - Cardiovascular Rhythm: regular Heart Sounds: Present: S1 & S2. Absent: gallop, rub - Extremities Extremities: no ischemia, No edema, Full ROM - Abdominal General gastrointestinal: soft, non-tender, non-distended, normal bowel sounds - Integumentary Integumentary: Present: clear, warm, dry - Neurologic Neurologic: CNII-XII intact, moves all extremities Results - Labs CBC & Chem 7: 03/30/21 05:11 03/28/21 07:06 Labs: Laboratory Last Values WBC 4.5 K/mm3 (4.5-11.0) 03/24/21 06:37 RBC 2.53 M/mm3 (3.65-5.03) L 03/24/21 06:37 Hgb 8.0 gm/dl (11.8-15.2) L 03/30/21 05:11 Hct 23.7 % (35.5-45.6) L 03/30/21 05:11 MCV 90 fl (84-94) 03/24/21 06:37 MCH 31 pg (28-32) 03/24/21 06:37 MCHC 35 % (32-34) H 03/24/21 06:37 RDW 15.2 % (13.2-15.2) 03/24/21 06:37 Plt Count 147 K/mm3 (140-440) 03/24/21 06:37 Lymph % (Auto) 13.3 % (13.4-35.0) L 03/24/21 06:37 Cottle % (Auto) 10.9 % (0.0-7.3) H 03/24/21 06:37 Eos % (Auto) 1.7 % (0.0-4.3) 03/24/21 06:37 Baso % (Auto) 0.9 % (0.0-1.8) 03/24/21 06:37 Lymph # (Auto) 0.6 K/mm3 (1.2-5.4) L 03/24/21 06:37 Cottle # (Auto) 0.5 K/mm3 (0.0-0.8) 03/24/21 06:37 Eos # (Auto) 0.1 K/mm3 (0.0-0.4) 03/24/21 06:37 Baso # (Auto) 0.0 K/mm3 (0.0-0.1) 03/24/21 06:37 Add Manual Diff Complete 03/07/21 05:23 Total Counted 100 03/07/21 05:23 Seg Neutrophils % 73.2 % (40.0-70.0) H 03/24/21 06:37 Seg Neuts % (Manual) 78.0 % (40.0-70.0) H 03/07/21 05:23 Lymphocytes % (Manual) 13.0 % (13.4-35.0) L 03/07/21 05:23 Monocytes % (Manual) 9.0 % (0.0-7.3) H 03/07/21 05:23 Nucleated RBC % Not Reportable 03/07/21 05:23 Seg Neutrophils # 3.3 K/mm3 (1.8-7.7) 03/24/21 06:37 Seg Neutrophils # Man 2.0 K/mm3 (1.8-7.7) 03/07/21 05:23 Band Neutrophils # 0.0 K/mm3 03/07/21 05:23 Lymphocytes # (Manual) 0.3 K/mm3 (1.2-5.4) L 03/07/21 05:23 Abs React Lymphs (Man) 0.0 K/mm3 03/07/21 05:23 Monocytes # (Manual) 0.2 K/mm3 (0.0-0.8) 03/07/21 05:23 Eosinophils # (Manual) 0.0 K/mm3 (0.0-0.4) 03/07/21 05:23 Basophils # (Manual) 0.0 K/mm3 (0.0-0.1) 03/07/21 05:23 Metamyelocytes # 0.0 K/mm3 03/07/21 05:23 Myelocytes # 0.0 K/mm3 03/07/21 05:23 Promyelocytes # 0.0 K/mm3 03/07/21 05:23 Blast Cells # 0.0 K/mm3 03/07/21 05:23 WBC Morphology Not Reportable 03/07/21 05:23 Hypersegmented Neuts Not Reportable 03/07/21 05:23 Hyposegmented Neuts Not Reportable 03/07/21 05:23 Hypogranular Neuts Not Reportable 03/07/21 05:23 Smudge Cells Not Reportable 03/07/21 05:23 Toxic Granulation Not Reportable 03/07/21 05:23 Toxic Vacuolation Not Reportable 03/07/21 05:23 Dohle Bodies Not Reportable 03/07/21 05:23 Pelger-Huet Anomaly Not Reportable 03/07/21 05:23 Cosme Rods Not Reportable 03/07/21 05:23 Platelet Estimate Consistent w auto 03/07/21 05:23 Clumped Platelets Not Reportable 03/07/21 05:23 Plt Clumps, EDTA Not Reportable 03/07/21 05:23 Large Platelets Not Reportable 03/07/21 05:23 Giant Platelets Not Reportable 03/07/21 05:23 Platelet Satelliting Not Reportable 03/07/21 05:23 Plt Morphology Comment Not Reportable 03/07/21 05:23 RBC Morphology Not Reportable 03/07/21 05:23 Dimorphic RBCs Not Reportable 03/07/21 05:23 Polychromasia Not Reportable 03/07/21 05:23 Hypochromasia Not Reportable 03/07/21 05:23 Poikilocytosis Not Reportable 03/07/21 05:23 Anisocytosis Few 03/07/21 05:23 Microcytosis Not Reportable 03/07/21 05:23 Macrocytosis Not Reportable 03/07/21 05:23 Spherocytes Not Reportable 03/07/21 05:23 Pappenheimer Bodies Not Reportable 03/07/21 05:23 Sickle Cells Not Reportable 03/07/21 05:23 Target Cells Not Reportable 03/07/21 05:23 Tear Drop Cells Not Reportable 03/07/21 05:23 Ovalocytes Not Reportable 03/07/21 05:23 Helmet Cells Not Reportable 03/07/21 05:23 Mercado-Moriarty Bodies Not Reportable 03/07/21 05:23 [place] Rings Not Reportable 03/07/21 05:23 Iberia Cells Not Reportable 03/07/21 05:23 Bite Cells Not Reportable 03/07/21 05:23 Crenated Cell Not Reportable 03/07/21 05:23 Elliptocytes Not Reportable 03/07/21 05:23 Acanthocytes (Spur) Not Reportable 03/07/21 05:23 Rouleaux Not Reportable 03/07/21 05:23 Hemoglobin C Crystals Not Reportable 03/07/21 05:23 Schistocytes Not Reportable 03/07/21 05:23 Malaria parasites Not Reportable 03/07/21 05:23 Samir Bodies Not Reportable 03/07/21 05:23 Hem Pathologist Commnt No 03/07/21 05:23 PT 13.7 Sec. (12.2-14.9) 02/26/21 04:33 INR 1.00 (0.87-1.13) 02/26/21 04:33 Sodium 140 mmol/L (137-145) 03/28/21 07:06 Potassium 3.7 mmol/L (3.6-5.0) 03/28/21 07:06 Chloride 98.1 mmol/L (98-107) 03/28/21 07:06 Carbon Dioxide 30 mmol/L (22-30) 03/28/21 07:06 Anion Gap 16 mmol/L 03/28/21 07:06 BUN 38 mg/dL (9-20) H 03/28/21 07:06 Creatinine 5.2 mg/dL (0.8-1.3) H 03/28/21 07:06 Estimated GFR 12 ml/min 03/28/21 07:06 BUN/Creatinine Ratio 7 % 03/28/21 07:06 Glucose 64 mg/dL (75-100) L 03/28/21 07:06 POC Glucose 242 mg/dL (70-105) H 04/01/21 07:33 Hemoglobin A1c 7.4 % (4-6) H 02/26/21 04:33 Calcium 8.4 mg/dL (8.4-10.2) 03/28/21 07:06 Magnesium 2.10 mg/dL (1.7-2.3) 02/17/21 02:24 Iron 52 ug/dL (49-181) 03/30/21 05:11 TIBC 203 mcg/dL (250-450) L 03/30/21 05:11 Ferritin 70.9 ng/mL (30.0-300.0) 03/30/21 05:11 Total Bilirubin 0.60 mg/dL (0.1-1.2) 03/14/21 07:24 Direct Bilirubin 0.3 mg/dL (0-0.2) H 03/14/21 07:24 Indirect Bilirubin 0.3 mg/dL 03/14/21 07:24 AST 57 units/L (5-40) H 03/14/21 07:24 ALT 24 units/L (7-56) 03/14/21 07:24 Alkaline Phosphatase 179 units/L (35-129) H 03/14/21 07:24 Ammonia 30.0 umol/L (25-60) 03/14/21 07:24 Total Creatine Kinase 86 units/L (55-170) 02/17/21 02:24 Total Protein 6.2 g/dL (6.3-8.2) L 03/14/21 07:24 Albumin 2.3 g/dL (3.9-5) L 03/14/21 07:24 Albumin/Globulin Ratio 0.6 % 03/14/21 07:24 Vitamin B12 1583 pg/mL (211-911) H 03/30/21 05:11 Folate 10.11 ng/mL (7.3-26.0) 03/30/21 05:11 TSH 0.986 mlU/mL (0.270-4.200) 02/17/21 02:24 Urine Color Yellow (Yellow) 02/17/21 Unknown Urine Turbidity Clear (Clear) 02/17/21 Unknown Urine pH 6.0 (5.0-7.0) 02/17/21 Unknown Ur Specific Glade 1.012 (1.003-1.030) 02/17/21 Unknown Urine Protein 100 mg/dl mg/dL (Negative) 02/17/21 Unknown Urine Glucose (UA) >=500 mg/dL (Negative) 02/17/21 Unknown Urine Ketones Neg mg/dL (Negative) 02/17/21 Unknown Urine Blood Neg (Negative) 02/17/21 Unknown Urine Nitrite Neg (Negative) 02/17/21 Unknown Urine Bilirubin Neg (Negative) 02/17/21 Unknown Urine Urobilinogen < 2.0 mg/dL (<2.0) 02/17/21 Unknown Ur Leukocyte Esterase Neg (Negative) 02/17/21 Unknown Urine WBC (Auto) 2.0 /HPF (0.0-6.0) 02/17/21 Unknown Urine RBC (Auto) 2.0 /HPF (0.0-6.0) 02/17/21 Unknown U Epithel Cells (Auto) < 1.0 /HPF (0-13.0) 02/17/21 Unknown Urine Bacteria (Auto) 1+ /HPF (Negative) 02/17/21 Unknown Salicylates < 0.3 mg/dL (2.8-20.0) L 02/17/21 02:24 Acetaminophen 5.0 ug/mL (10.0-30.0) L 02/17/21 02:24 Coronavirus (PCR) Positive (Negative) A 03/29/21 Unknown Hepatitis A IgM Ab Non-reactive (NonReactive) 02/28/21 12:37 Hep Bs Antigen Non-reactive (Negative) 03/28/21 18:57 Hep B Core IgM Ab Non-reactive (NonReactive) 02/28/21 12:37 Hepatitis C Antibody Non-reactive (NonReactive) 02/28/21 12:37 Blood Type A POSITIVE 03/07/21 06:31 Antibody Screen Negative 03/07/21 06:31 Crossmatch See Detail 03/07/21 06:31 Sr/IV: Voiding Method Incontinent Active Medications - Current Medications Current Medications: Generic Name Dose Route Start Last Admin Trade Name Freq PRN Reason Stop Dose Admin Acetaminophen 650 mg 02/18/21 22:38 03/09/21 13:15 Acetaminophen 325 Mg Tab PO 650 mg Q4H PRN Administration Pain MILD(1-3)/Fever >100.5/MOLINA Albuterol 2.5 mg 02/18/21 22:38 Albuterol 2.5 Mg/3 Ml Nebu IH Q3HRT PRN Shortness Of Breath Allopurinol 100 mg 02/20/21 10:00 03/31/21 08:59 Allopurinol 100 Mg Tab PO 100 mg QDAY LEYLA Administration Calcium Acetate 1,334 mg 02/20/21 08:30 03/31/21 17:40 Calcium Acetate 667 Mg Cap PO 1,334 mg TIDWM LEYLA Administration Dextrose 50 ml 03/29/21 12:00 Dextrose 50% In Water (25gm) 50 Ml Syringe IV Q30MIN PRN HYPOGLYCEMIA Protocol Diphenhydramine HCl 25 mg 02/23/21 09:10 03/24/21 09:01 Diphenhydramine 25 Mg Cap PO 25 mg BID PRN Administration Itching Famotidine 20 mg 02/19/21 10:00 03/31/21 08:59 Famotidine 20 Mg Tab PO 20 mg QAM LEYLA Administration Hydralazine HCl 10 mg 02/18/21 22:56 Hydralazine 20 Mg/1 Ml Inj IV Q6H PRN htn Hydroxyzine HCl 25 mg 03/24/21 10:38 Hydroxyzine Hcl 25 Mg Tab PO Q6H PRN Itching Sodium Chloride 100 mls @ 999 mls/hr 02/19/21 09:06 Nacl 0.9% IV OLIVIA PRN Hypotension Insulin Glargine 16 units 03/23/21 09:00 03/31/21 22:22 Insulin Glargine 100 Units/Ml SUB-Q 16 units QHS LEYLA Administration Insulin Human Lispro 0 unit 03/09/21 22:00 03/31/21 22:04 Insulin Lispro 100 Unit/Ml SUB-Q 6 unit ACHS LEYLA Administration Protocol Lactulose 20 gm 03/09/21 18:00 04/01/21 05:13 Lactulose 20 Gm/30 Ml Oral Liqd PO 20 gm Q6HR LEYLA Administration Ondansetron HCl 4 mg 02/18/21 22:38 02/28/21 12:32 Ondansetron 4 Mg/2 Ml Inj IV 4 mg Q8H PRN Administration Nausea And Vomiting Polyethylene Glycol 17 gm 02/24/21 12:08 02/24/21 12:47 Polyethylene Glycol 3350 17 Gm Powder PO 17 gm QDAY PRN Administration Constipation Propranolol HCl 20 mg 02/20/21 10:00 03/31/21 22:06 Propranolol 10 Mg Tab PO 20 mg BID LEYLA Administration Rifaximin 550 mg 03/10/21 12:00 03/31/21 22:23 Rifaximin 550 Mg Tab PO 550 mg BID LEYLA Administration Sodium Chloride 10 ml 02/19/21 10:00 04/01/21 00:08 Sodium Chloride 0.9% 10 Ml Flush Syringe IV 10 ml BID LEYLA Administration Sodium Chloride 10 ml 02/18/21 22:38 Sodium Chloride 0.9% 10 Ml Flush Syringe IV PRN PRN LINE FLUSH Zolpidem Tartrate 5 mg 02/24/21 09:54 03/08/21 23:25 Zolpidem 5 Mg Tab PO 5 mg QHS PRN Administration Sleep Nutrition/Malnutrition Assess - Dietary Evaluation Nutrition/Malnutrition Findings: Nutrition Notes Start: 02/19/21 10:48 Freq: Status: Active Protocol: Document 03/29/21 12:16 ALISSA (Rec: 03/29/21 12:18 ALISSA [id number]) Nutrition Notes Initial or Follow up Reassessment Current Diagnosis CKD (stage V CKD),Diabetes Other Pertinent Diagnosis COVID-19 (+), hepatic encephalopathy, ascites Current Diet Renal/Consistent CHO + Nepro once daily Labs/Tests POC BG 68-234 Pertinent Medications Reviewed Height 5 ft 11 in Weight 66.5 kg [place] Body Weight (kg) 78.18 BMI 20.4 Weight Status Appropriate Subjective/Other Information FU for intakes. Pt not answering phone. Per chart, pt ate 100% of meals yesterday. Percent of energy/protein needs met: 100%/100% Burn Absent Trauma Absent Current % PO Good (75-100%) Minimum of two criteria Yes Body Fat Depletion Mild depletion (non-severe) Fluid Accumulation Mild (non-severe) #2 Nutrition Diagnosis Increased nutrient needs ( specify in comment below) Diagnosis Progress(for reassessment Continues documentation) #1 Nutrition Diagnosis Malnutrition Diagnosis Progress(for reassessment Continues documentation) Is patient on ventilator? No Is Patient Ambulatory and/or Out of Bed No REE-([facility]-confined to bed) 9665.128 Calculation Used for Recommendations [facility] Additional Notes Pro needs >1.2g/kg/day Fluid needs 1-1.5L/day Nutrition Intervention Change Diet Order: Continue current Add Supplement/Snack (indicate name/kcal Nepro daily /protein ) Provides kCal: 425 Provides Protein (gm) 19 Goal #1 PO intake of meals plus ONS to meet at least 75% energy and pro needs Goal #2 Wound healing Follow-Up By: 04/05/21 Additional Comments F/U for stable intakes and ONS tolerance
[2021-04-01] MEDS: CALCIUM ACETATE 667 MG CAP PO SCH ×3 (09:27→19:05)
[2021-04-01] MEDS: INSULIN LISPRO 100 UNIT/ML SUB-Q SCH ×4 (09:28→22:15)
[2021-04-01] MEDS: PROPRANOLOL 10 MG TAB PO SCH ×2 (12:31→22:14)
[2021-04-01] MEDS: RIFAXIMIN 550 MG TAB PO SCH ×2 (12:33→22:14)
[2021-04-01] MEDS: FAMOTIDINE 20 MG TAB PO SCH (12:33)
[2021-04-01] MEDS: allopurinoL 100 MG TAB PO SCH (12:34)
--- NOTE | 2021-04-01 12:37 | Progress Note ---
Assessment and Plan 1. ESRD: Patient is on maintenance hemodialysis three times a week, MWF schedule. Meds dosage based on GFR. Missed HD 02/18. Hemodialysis: 02/19, 02/20, 02/22, 02/25, 02/27, 03/01, 03/04, 03/06, 03/08, 03/11, 03/13, 03/15, 03/18, 03/20, 03/22, 03/25, 03/27, 03/29. 2. FEN: Monitor lytes and volume status. 3. Anemia, POA: 2/2 ESRD and Liver disease. Epogen with HD. PRBC as needed. 4. Cirrhosis with h/o hepatic encephalopathy: Lactulose and Rifaximin. Monitor. 5. DM type 2: SSI. Monitor. 6. Thrombocytopenia, POA. 7. Hypotension: BP was intermittently low especially while on hemodialysis. Was on Midodrine. Await placement. Subjective: Patient was seen and examined at the bedside. Per RN pt is eating well. General Appearance: General appearance: well-developed, appears stated age, not in distress HEENT: ATNC, pupils equal Neck: trachea midline Respiratory: ctab Heart: regular, S1S2, no murmur Abdomen: soft, bowel sounds heard, slightly distended, not tender Integumentary: no rash, warm and dry Neurologic: alert, able to move extremities Ext: no edema, R BKA Hemodialysis access: R arm AVF Subjective Date of service: 04/01/21 Principal diagnosis: Acute renal failure Objective - Vital Signs Vital signs: Vital Signs - 12hr 04/01/21 04/01/21 04/01/21 04:13 11:44 12:31 Temperature 97.3 F L 98.5 F Pulse Rate 75 77 77 Respiratory 16 19 Rate Blood Pressure 109/52 109/52 O2 Sat by Pulse 79 L 100 Oximetry - Lab 03/30/21 05:11 03/28/21 07:06 Most recent lab results Calcium 8.4 mg/dL (8.4-10.2) 03/28/21 07:06 Magnesium 2.10 mg/dL (1.7-2.3) 02/17/21 02:24 Medications & Allergies - Medications Allergies/Adverse Reactions: Allergies No Known Allergies Allergy (Verified 02/16/21 18:26) Home Medications: Home Medications Medication Instructions Recorded Confirmed Last Taken Type Calcium Acetate [Phoslo] 1,334 mg PO TIDWM #90 capsule 03/01/21 Unknown Rx Famotidine [Pepcid] 20 mg PO QAM #30 tablet 03/01/21 Unknown Rx Lactulose [Cephulac] 20 gm PO Q8HR 30 Days 03/01/21 Unknown Rx Lispro Insulin [HumaLOG] See Protocol SQ ACHS 30 Days 03/01/21 Unknown Rx allopurinoL [Zyloprim] 100 mg PO QDAY #30 tablet 03/01/21 Unknown Rx propranoloL [Inderal] 20 mg PO BID #60 tablet 03/01/21 Unknown Rx Active Medications: Generic Name Dose Route Start Last Admin Trade Name Freq PRN Reason Stop Dose Admin Acetaminophen 650 mg 02/18/21 22:38 03/09/21 13:15 Acetaminophen 325 Mg Tab PO 650 mg Q4H PRN Administration Pain MILD(1-3)/Fever >100.5/MOLINA Albuterol 2.5 mg 02/18/21 22:38 Albuterol 2.5 Mg/3 Ml Nebu IH Q3HRT PRN Shortness Of Breath Allopurinol 100 mg 02/20/21 10:00 04/01/21 12:34 Allopurinol 100 Mg Tab PO 100 mg QDAY LEYLA Administration Calcium Acetate 1,334 mg 02/20/21 08:30 04/01/21 12:34 Calcium Acetate 667 Mg Cap PO 1,334 mg TIDWM LEYLA Administration Dextrose 50 ml 03/29/21 12:00 Dextrose 50% In Water (25gm) 50 Ml Syringe IV Q30MIN PRN HYPOGLYCEMIA Protocol Diphenhydramine HCl 25 mg 02/23/21 09:10 03/24/21 09:01 Diphenhydramine 25 Mg Cap PO 25 mg BID PRN Administration Itching Famotidine 20 mg 02/19/21 10:00 04/01/21 12:33 Famotidine 20 Mg Tab PO 20 mg QAM LEYLA Administration Hydralazine HCl 10 mg 02/18/21 22:56 Hydralazine 20 Mg/1 Ml Inj IV Q6H PRN htn Hydroxyzine HCl 25 mg 03/24/21 10:38 Hydroxyzine Hcl 25 Mg Tab PO Q6H PRN Itching Sodium Chloride 100 mls @ 999 mls/hr 02/19/21 09:06 Nacl 0.9% IV OLIVIA PRN Hypotension Insulin Glargine 16 units 03/23/21 09:00 03/31/21 22:22 Insulin Glargine 100 Units/Ml SUB-Q 16 units QHS LEYLA Administration Insulin Human Lispro 0 unit 03/09/21 22:00 04/01/21 12:32 Insulin Lispro 100 Unit/Ml SUB-Q 4 unit ACHS LEYLA Administration Protocol Lactulose 20 gm 03/09/21 18:00 04/01/21 12:34 Lactulose 20 Gm/30 Ml Oral Liqd PO 20 gm Q6HR LEYLA Administration Ondansetron HCl 4 mg 02/18/21 22:38 02/28/21 12:32 Ondansetron 4 Mg/2 Ml Inj IV 4 mg Q8H PRN Administration Nausea And Vomiting Polyethylene Glycol 17 gm 02/24/21 12:08 02/24/21 12:47 Polyethylene Glycol 3350 17 Gm Powder PO 17 gm QDAY PRN Administration Constipation Propranolol HCl 20 mg 02/20/21 10:00 04/01/21 12:31 Propranolol 10 Mg Tab PO Not Given BID LEYLA Rifaximin 550 mg 03/10/21 12:00 04/01/21 12:33 Rifaximin 550 Mg Tab PO 550 mg BID LEYLA Administration Sodium Chloride 10 ml 02/19/21 10:00 04/01/21 00:08 Sodium Chloride 0.9% 10 Ml Flush Syringe IV 10 ml BID LEYLA Administration Sodium Chloride 10 ml 02/18/21 22:38 Sodium Chloride 0.9% 10 Ml Flush Syringe IV PRN PRN LINE FLUSH Zolpidem Tartrate 5 mg 02/24/21 09:54 03/08/21 23:25 Zolpidem 5 Mg Tab PO 5 mg QHS PRN Administration Sleep
[2021-04-01] MEDS: INSULIN GLARGINE 100 UNITS/ML SUB-Q SCH (22:16)
[2021-04-02] MEDS: LACTULOSE 20 GM/30 ML ORAL LIQD PO SCH ×4 (00:51→17:58)
--- NOTE | 2021-04-02 07:16 | Progress Note ---
Assessment and Plan Assessment and plan: 55 YO Male with ESRD on HD, Noncompliance with outpatient dialysis, Anemia, HBV, Chronic Liver Disease, Cirrhosis complicated by Esophageal Varices, HTN, Debility, DM presents to ED with confusion with diminished cognition. Patient family report the patient was "not acting like himself" and found to have worsening confusion over the past 2 days. In the ER the patient was found to have hepatic encephalopathy complicated by diminished cognition, end-stage renal disease in need of urgent dialysis, as well as uncontrolled diabetes, and acidosis. Nephrology team consulted in ED and patient was then admitted for further evaluation and Mx. A/p -- Hepatic encephalopathy due to hepatic cirrhosis cont lactulose, Neuro check, seizure precaution, aspiration precaution, fall precautions, continue to monitor. -- End stage renal disease Nephrology team consulted, strict I's/O, monitor urine output every shift, dialysis as per renal team, avoid nephrotoxic agents. --Metabolic Acidosis Nephrology team consulted, dialysis as per renal team. --Hyponatremia Monitor BMP, monitor fluid balance. -- Hyperammonemia Continue lactulose --Diabetes mellitus with hyperglycemia Consistent carb diet, SSI -- hyperkalemia, Improvement with dialysis --Ascitis, s/p paracentesis drained 6.2l of ascitic fluid --Sacral wound, cont wound care -- Moderate Protein Calorie Malnutrition, nutrition consulted --Noncompliance, counseled for medication compliance --DVT Px, SCD --DNR code status --Disposition: needs placement, CM waiting for placement Daily clinical course: 02/19: Resume dialysis will adjust insulin for better coverage. Very poor progn osis considering poor medical compliance. Agree with hospice recommendation. Will obtain wound care to continue to manage. Monitor anemia as patient was pretty anemic during the last hospitalization. Required transfusion. 02/20: Continues to undergo dialysis no change in mental status noted. Tolerating medications. Blood sugar mildly elevated adjusted insulin yesterday when awake for the patient received a dose today and if still elevated will adjust. Again case management is working on discharge plan for this patient as he is pending placement 02/21 patient complains of right hip pain. He said he fell few weeks ago and is concerned about another fracture. He had a fracture about 8 weeks ago and had surgery. Will obtain X ray right hip. Patient pending placement. 02/22 Patient seen in Dialysis Unit. He states hip pain improved. No other complaints. Right hip X ray done yesterday report read may be healing fracture or acute fracture. Will discuss with Orthopedic Surgeon Patient pending placement 02/23 Less hip pain. Today complains of generalized itching. Will start Benadryl po prn. Orthopedic consulted to evaluate right hip. Patient pending placement 02/24 Less hip pain. Generalized itching now resolved. Orthopedic consulted to evaluate right hip. He complains of sleeplessness. Will give Ambien prn Patient pending placement 02/25 Patient requested DNR status yesterday. I discussed with him and he signed forms. He also complains of worsening abdominal distension and requested t apping, Will order paracentesis. Right hip evaluated by Dr. Trivedi and conservative management recommended. 02/26: Plan for paracentesis today. Need to set up dialysis as outpatient. care coordination manager working on discharge planning. 02/27: Patient did not sign the consent for paracentesis yesterday so paracentesis was done today and aspirated 6.2L ascitic fluid. Patient refusing medication per RN. Getting dialysis. Patient noted slightly altered today, will place NG tube remains altered and keep refusing oral meds, order for ammonia level and will cont lactulose. 02/28: Patient appears much more calm and cooperative today. He stated that he has been refusing procedure and medication as he believes he was not in the right state of his mind. Patient acknowledges the importance of being compliant and he promises that he will take the medications as he will be given. Discharge planning per case management as patient would need outpatient dialysis center set up and personal detention set up. 03/01/21: Patient has [facility] setting but according to transplant case manager no available RN to accept the patient till Thursday. Continue supportive care. Discharge pending on placement. 03/02/21 -03/04/21: Discharge pending on placement, continue to monitor clinically. Continue current management and plan and supportive care. Patient need SNF placement. 03/05/2021; Awaiting SNF placement for discharge. Prognosis is very poor. Patient is nonresponsive. I try to reach to his son over the phone but could not get in touch. Patient is appropriate for hospice care. 03/06/2021; patient is awaiting SNF placement. Patient was alert and oriented. No confusion. Patient is stable to be discharged back to SNF. 03/07/2021; patient has hemoglobin of 6.8 this morning. A unit of blood ordered. Will monitor H&H. Nephrology is following for dialysis. 03/08/2021; patient's hemoglobin was 6.8 yesterday and transfused a unit of blood. I ordered yesterday to do posttransfusion H&H and was not done. CBC was ordered to be done this morning but was not done. COVID-19 test was done on 03/06 and positive. Nephrology is following the patient for his dialysis. Plan is to discharge him to SNF. Will follow with case management because patient is Covid positive. 03/09/2021; patient's repeat Covid test on 03/08/2021 was positive. Patient is pending for SNF Placement. Patient had hypoglycemia yesterday and patient was placed on Lantus and his sliding scale adjusted to high dose. Will monitor and adjust as needed. 03/10/2021; pending SNF placement. Covid test was positive on and . 03/11/2021; patient has hepatic encephalopathy and his ammonia level is very high, patient is currently on lactulose and rifaximin. Ammonia level is trending down. Nephrology is following for dialysis. Patient has positive Covid test last one was on 03/08, that makes placement difficult. Continue with case management. 03/12: Still awaiting placement, discussed with nursing staff to monitor mental status changes. Will check ammonia level. Continue to adjust blood sugar. Complicated by COVID POSITIVELY. Awaiting placement for the patient. Also dialysis chair time. I have discussed with case management as my understanding was that patient was to go for hospice but this plan appears to have changed possibly not clear to me at this time 03/13: Continue supportive care crush medications that can be crushed. Ammonia level is elevated but not as elevated as previously. Continue lactulose advised nursing staff that this should be given as ordered to communicate with the night team also. Unfortunately when the patient gets better he refuses his lactulose. I truly believe that we should strongly consider palliative care for this patient but nevertheless if he wants to continue dialysis and will be compliant with his medications this is definitely an option can be pursued. Aspiration precautions monitor hemoglobin and platelets. 03/14: Patient seen and examined, more awake today. Continue supportive care, patient was made DNR wade, signed the form today after confirming the patient and also the physician. Monitor for fever. AWAITING PLACEMENT. poor prognosis 03/15/21 Patient is seen and examined. Lab and medication reviewed. Patient denied any chest pain or shortness of breath. Patient is more awake alert today. Patient is getting them hemodialysis today. Continue current management. Awaiting placement. 03/16/21 patient seen and examined. Lab and medication reviewed. Patient feels better. Hemoglobin 8.2 and hematocrit 23.9. Complained of pain in the butt. No other complain. Continue current management and supportive care. Patient is waiting for placement. 03/17: Patient remains with poor prognosis refusing dietary intake. Again discussed hospice and palliative care management considering his current medical condition and declining poor prognostic factors. Discussed with nursing staff patient will continue with lactulose had refused this morning but did take it yesterday. Continue aspiration precautions. Discussed the importance of taking the medication the patient verbalized understanding 03/18: Patient undergoing HD discharge planning ongoing discussed with case management team. Covid test ordered today for placement purposes. 03/19/2021; Covid test was ordered and result is pending. Pending placement. 03/20/2021; patient's Covid test was positive again on 03/20/2021. Pending placement. 03/21/2021. Patient cooperative no acute distress at this time. Complains of loose stool diarrhea. Still awaiting placement. Unable to find hemodialysis placement 03/22/2021. Patient last Covid test was positive however initial test was greater than 14 days ago. Patient is no longer infected. Unable to find hemodialysis line at present. Patient being evaluated for [facility]. 03/23/2021. Patient continues to state he feels good much better at this time. Resting comfortably. No distress noted. Still awaiting hemodialysis center. 03/24/2021 patient with flat mood discussed about depression. Resting comfortably watching TV. 03/25/2021. Patient denies depression at this time. Complains of itching all over. When am i getting out of here 03/26/2021. Case management reports patient is still awaiting hemodialysis plac ement 03/27/2021. Case management reports patient is still awaiting hemodialysis placement. Patient is on maintenance hemodialysis three times a week, MWF schedule. Cont. Lactulose and Rifaximin. Epogen with HD. 03/28/2021. Case management reports patient is still awaiting hemodialysis placement. 03/29/2021. Plan is for the patient to go to [facility] and awaiting on hemodialysis arrangements. [facility] and does not have a bed available. Covid test ordered. We will continue to follow up with case management on discharge planning. 03/30/2021. No new developments. Await hemodialysis placement and potential transfer to [facility]. 03/31/2021. No new developments. Await hemodialysis placement and potential transfer to [facility]. 04/01/2021. Patient resting comfortably. No new issues overnight. Plan is for the patient to go to [facility] and awaiting on hemodialysis arrangements. [facility] and does not have a bed available. Latest Covid test was positive on 03/29/2021. We will continue to follow up with case man agement on discharge planning. 04/02/2021; pending placement and outpatient hemodialysis arrangement. Patient was Covid + on 03/29/2021 - Patient Problems (1) End-stage renal disease needing dialysis Current Visit: Yes Status: Acute (2) Diabetes 1.5, managed as type 2 Current Visit: Yes Status: Acute (3) Anemia Current Visit: Yes Status: Acute (4) Case management patient Current Visit: Yes Status: Acute (5) Chronic liver disease and cirrhosis Current Visit: Yes Status: Acute (6) Hyponatremia Current Visit: No Status: Acute (7) Hypertension Current Visit: Yes Status: Acute (8) failure to thrive (9) severe protein calorie malnutrition (10) DVT prophylaxis Current Visit: No Status: Acute History Interval history: Patient was seen and evaluated this morning Patient doesn't have new complaints Hospitalist Physical - Physical exam Narrative exam: Not in cardiopulmonary distress. The patient appeared well nourished and normally developed. Vital signs as documented. Head exam is unremarkable. No scleral icterus . Neck is without jugular venous distension, thyromegaly, or carotid bruits. Lungs are clear to auscultation. Cardiac exam reveals regular rate and Rhythm. Abdominal exam reveals normal bowel sounds, nontender, no organomegaly. Extremities right BKA. [employer]POR[employer] OF [employer] RESOURCES: Patient was alert and oriented. Sacral decubitus ulcer. - Constitutional Vitals: Temp Pulse Resp BP Pulse Ox 97.9 F 72 16 133/47 97 04/02/21 04:52 04/02/21 04:52 04/02/21 04:52 04/02/21 04:52 04/02/21 04:52 General appearance: Present: cachectic, other (Temporal wasting) Results - Labs CBC & Chem 7: 03/30/21 05:11 03/28/21 07:06 Labs: Laboratory Last Values WBC 4.5 K/mm3 (4.5-11.0) 03/24/21 06:37 RBC 2.53 M/mm3 (3.65-5.03) L 03/24/21 06:37 Hgb 8.0 gm/dl (11.8-15.2) L 03/30/21 05:11 Hct 23.7 % (35.5-45.6) L 03/30/21 05:11 MCV 90 fl (84-94) 03/24/21 06:37 MCH 31 pg (28-32) 03/24/21 06:37 MCHC 35 % (32-34) H 03/24/21 06:37 RDW 15.2 % (13.2-15.2) 03/24/21 06:37 Plt Count 147 K/mm3 (140-440) 03/24/21 06:37 Lymph % (Auto) 13.3 % (13.4-35.0) L 03/24/21 06:37 George % (Auto) 10.9 % (0.0-7.3) H 03/24/21 06:37 Eos % (Auto) 1.7 % (0.0-4.3) 03/24/21 06:37 Baso % (Auto) 0.9 % (0.0-1.8) 03/24/21 06:37 Lymph # (Auto) 0.6 K/mm3 (1.2-5.4) L 03/24/21 06:37 George # (Auto) 0.5 K/mm3 (0.0-0.8) 03/24/21 06:37 Eos # (Auto) 0.1 K/mm3 (0.0-0.4) 03/24/21 06:37 Baso # (Auto) 0.0 K/mm3 (0.0-0.1) 03/24/21 06:37 Add Manual Diff Complete 03/07/21 05:23 Total Counted 100 03/07/21 05:23 Seg Neutrophils % 73.2 % (40.0-70.0) H 03/24/21 06:37 Seg Neuts % (Manual) 78.0 % (40.0-70.0) H 03/07/21 05:23 Lymphocytes % (Manual) 13.0 % (13.4-35.0) L 03/07/21 05:23 Monocytes % (Manual) 9.0 % (0.0-7.3) H 03/07/21 05:23 Nucleated RBC % Not Reportable 03/07/21 05:23 Seg Neutrophils # 3.3 K/mm3 (1.8-7.7) 03/24/21 06:37 Seg Neutrophils # Man 2.0 K/mm3 (1.8-7.7) 03/07/21 05:23 Band Neutrophils # 0.0 K/mm3 03/07/21 05:23 Lymphocytes # (Manual) 0.3 K/mm3 (1.2-5.4) L 03/07/21 05:23 Abs React Lymphs (Man) 0.0 K/mm3 03/07/21 05:23 Monocytes # (Manual) 0.2 K/mm3 (0.0-0.8) 03/07/21 05:23 Eosinophils # (Manual) 0.0 K/mm3 (0.0-0.4) 03/07/21 05:23 Basophils # (Manual) 0.0 K/mm3 (0.0-0.1) 03/07/21 05:23 Metamyelocytes # 0.0 K/mm3 03/07/21 05:23 Myelocytes # 0.0 K/mm3 03/07/21 05:23 Promyelocytes # 0.0 K/mm3 03/07/21 05:23 Blast Cells # 0.0 K/mm3 03/07/21 05:23 WBC Morphology Not Reportable 03/07/21 05:23 Hypersegmented Neuts Not Reportable 03/07/21 05:23 Hyposegmented Neuts Not Reportable 03/07/21 05:23 Hypogranular Neuts Not Reportable 03/07/21 05:23 Smudge Cells Not Reportable 03/07/21 05:23 Toxic Granulation Not Reportable 03/07/21 05:23 Toxic Vacuolation Not Reportable 03/07/21 05:23 Dohle Bodies Not Reportable 03/07/21 05:23 Pelger-Huet Anomaly Not Reportable 03/07/21 05:23 Cosme Rods Not Reportable 03/07/21 05:23 Platelet Estimate Consistent w auto 03/07/21 05:23 Clumped Platelets Not Reportable 03/07/21 05:23 Plt Clumps, EDTA Not Reportable 03/07/21 05:23 Large Platelets Not Reportable 03/07/21 05:23 Giant Platelets Not Reportable 03/07/21 05:23 Platelet Satelliting Not Reportable 03/07/21 05:23 Plt Morphology Comment Not Reportable 03/07/21 05:23 RBC Morphology Not Reportable 03/07/21 05:23 Dimorphic RBCs Not Reportable 03/07/21 05:23 Polychromasia Not Reportable 03/07/21 05:23 Hypochromasia Not Reportable 03/07/21 05:23 Poikilocytosis Not Reportable 03/07/21 05:23 Anisocytosis Few 03/07/21 05:23 Microcytosis Not Reportable 03/07/21 05:23 Macrocytosis Not Reportable 03/07/21 05:23 Spherocytes Not Reportable 03/07/21 05:23 Pappenheimer Bodies Not Reportable 03/07/21 05:23 Sickle Cells Not Reportable 03/07/21 05:23 Target Cells Not Reportable 03/07/21 05:23 Tear Drop Cells Not Reportable 03/07/21 05:23 Ovalocytes Not Reportable 03/07/21 05:23 Helmet Cells Not Reportable 03/07/21 05:23 Mercado-[place] Bodies Not Reportable 03/07/21 05:23 [place] Rings Not Reportable 03/07/21 05:23 Kathy Cells Not Reportable 03/07/21 05:23 Bite Cells Not Reportable 03/07/21 05:23 Crenated Cell Not Reportable 03/07/21 05:23 Elliptocytes Not Reportable 03/07/21 05:23 Acanthocytes (Spur) Not Reportable 03/07/21 05:23 Rouleaux Not Reportable 03/07/21 05:23 Hemoglobin C Crystals Not Reportable 03/07/21 05:23 Schistocytes Not Reportable 03/07/21 05:23 Malaria parasites Not Reportable 03/07/21 05:23 Samir Bodies Not Reportable 03/07/21 05:23 Hem Pathologist Commnt No 03/07/21 05:23 PT 13.7 Sec. (12.2-14.9) 02/26/21 04:33 INR 1.00 (0.87-1.13) 02/26/21 04:33 Sodium 140 mmol/L (137-145) 03/28/21 07:06 Potassium 3.7 mmol/L (3.6-5.0) 03/28/21 07:06 Chloride 98.1 mmol/L (98-107) 03/28/21 07:06 Carbon Dioxide 30 mmol/L (22-30) 03/28/21 07:06 Anion Gap 16 mmol/L 03/28/21 07:06 BUN 38 mg/dL (9-20) H 03/28/21 07:06 Creatinine 5.2 mg/dL (0.8-1.3) H 03/28/21 07:06 Estimated GFR 12 ml/min 03/28/21 07:06 BUN/Creatinine Ratio 7 % 03/28/21 07:06 Glucose 64 mg/dL (75-100) L 03/28/21 07:06 POC Glucose 215 mg/dL (70-105) H 04/01/21 21:29 Hemoglobin A1c 7.4 % (4-6) H 02/26/21 04:33 Calcium 8.4 mg/dL (8.4-10.2) 03/28/21 07:06 Magnesium 2.10 mg/dL (1.7-2.3) 02/17/21 02:24 Iron 52 ug/dL (49-181) 03/30/21 05:11 TIBC 203 mcg/dL (250-450) L 03/30/21 05:11 Ferritin 70.9 ng/mL (30.0-300.0) 03/30/21 05:11 Total Bilirubin 0.60 mg/dL (0.1-1.2) 03/14/21 07:24 Direct Bilirubin 0.3 mg/dL (0-0.2) H 03/14/21 07:24 Indirect Bilirubin 0.3 mg/dL 03/14/21 07:24 AST 57 units/L (5-40) H 03/14/21 07:24 ALT 24 units/L (7-56) 03/14/21 07:24 Alkaline Phosphatase 179 units/L (35-129) H 03/14/21 07:24 Ammonia 30.0 umol/L (25-60) 03/14/21 07:24 Total Creatine Kinase 86 units/L (55-170) 02/17/21 02:24 Total Protein 6.2 g/dL (6.3-8.2) L 03/14/21 07:24 Albumin 2.3 g/dL (3.9-5) L 03/14/21 07:24 Albumin/Globulin Ratio 0.6 % 03/14/21 07:24 Vitamin B12 1583 pg/mL (211-911) H 03/30/21 05:11 Folate 10.11 ng/mL (7.3-26.0) 03/30/21 05:11 TSH 0.986 mlU/mL (0.270-4.200) 02/17/21 02:24 Urine Color Yellow (Yellow) 02/17/21 Unknown Urine Turbidity Clear (Clear) 02/17/21 Unknown Urine pH 6.0 (5.0-7.0) 02/17/21 Unknown Ur Specific Ariel 1.012 (1.003-1.030) 02/17/21 Unknown Urine Protein 100 mg/dl mg/dL (Negative) 02/17/21 Unknown Urine Glucose (UA) >=500 mg/dL (Negative) 02/17/21 Unknown Urine Ketones Neg mg/dL (Negative) 02/17/21 Unknown Urine Blood Neg (Negative) 02/17/21 Unknown Urine Nitrite Neg (Negative) 02/17/21 Unknown Urine Bilirubin Neg (Negative) 02/17/21 Unknown Urine Urobilinogen < 2.0 mg/dL (<2.0) 02/17/21 Unknown Ur Leukocyte Esterase Neg (Negative) 02/17/21 Unknown Urine WBC (Auto) 2.0 /HPF (0.0-6.0) 02/17/21 Unknown Urine RBC (Auto) 2.0 /HPF (0.0-6.0) 02/17/21 Unknown U Epithel Cells (Auto) < 1.0 /HPF (0-13.0) 02/17/21 Unknown Urine Bacteria (Auto) 1+ /HPF (Negative) 02/17/21 Unknown Salicylates < 0.3 mg/dL (2.8-20.0) L 02/17/21 02:24 Acetaminophen 5.0 ug/mL (10.0-30.0) L 02/17/21 02:24 Coronavirus (PCR) Positive (Negative) A 03/29/21 Unknown Hepatitis A IgM Ab Non-reactive (NonReactive) 02/28/21 12:37 Hep Bs Antigen Non-reactive (Negative) 03/28/21 18:57 Hep B Core IgM Ab Non-reactive (NonReactive) 02/28/21 12:37 Hepatitis C Antibody Non-reactive (NonReactive) 02/28/21 12:37 Blood Type A POSITIVE 03/07/21 06:31 Antibody Screen Negative 03/07/21 06:31 Crossmatch See Detail 03/07/21 06:31 Sr/IV: Voiding Method Incontinent Active Medications - Current Medications Current Medications: Generic Name Dose Route Start Last Admin Trade Name Freq PRN Reason Stop Dose Admin Acetaminophen 650 mg 02/18/21 22:38 03/09/21 13:15 Acetaminophen 325 Mg Tab PO 650 mg Q4H PRN Administration Pain MILD(1-3)/Fever >100.5/MOLINA Albuterol 2.5 mg 02/18/21 22:38 Albuterol 2.5 Mg/3 Ml Nebu IH Q3HRT PRN Shortness Of Breath Allopurinol 100 mg 02/20/21 10:00 04/01/21 12:34 Allopurinol 100 Mg Tab PO 100 mg QDAY LEYLA Administration Calcium Acetate 1,334 mg 02/20/21 08:30 04/01/21 19:05 Calcium Acetate 667 Mg Cap PO Not Given TIDWM LEYLA Dextrose 50 ml 03/29/21 12:00 Dextrose 50% In Water (25gm) 50 Ml Syringe IV Q30MIN PRN HYPOGLYCEMIA Protocol Diphenhydramine HCl 25 mg 02/23/21 09:10 03/24/21 09:01 Diphenhydramine 25 Mg Cap PO 25 mg BID PRN Administration Itching Famotidine 20 mg 02/19/21 10:00 04/01/21 12:33 Famotidine 20 Mg Tab PO 20 mg QAM LEYLA Administration Hydralazine HCl 10 mg 02/18/21 22:56 Hydralazine 20 Mg/1 Ml Inj IV Q6H PRN htn Hydroxyzine HCl 25 mg 03/24/21 10:38 Hydroxyzine Hcl 25 Mg Tab PO Q6H PRN Itching Sodium Chloride 100 mls @ 999 mls/hr 02/19/21 09:06 Nacl 0.9% IV OLIVIA PRN Hypotension Insulin Glargine 16 units 03/23/21 09:00 04/01/21 22:16 Insulin Glargine 100 Units/Ml SUB-Q 16 units QHS LEYLA Administration Insulin Human Lispro 0 unit 03/09/21 22:00 04/01/21 22:15 Insulin Lispro 100 Unit/Ml SUB-Q 4 unit ACHS LEYLA Administration Protocol Lactulose 20 gm 03/09/21 18:00 04/02/21 05:54 Lactulose 20 Gm/30 Ml Oral Liqd PO 20 gm Q6HR LEYLA Administration Ondansetron HCl 4 mg 02/18/21 22:38 02/28/21 12:32 Ondansetron 4 Mg/2 Ml Inj IV 4 mg Q8H PRN Administration Nausea And Vomiting Polyethylene Glycol 17 gm 02/24/21 12:08 02/24/21 12:47 Polyethylene Glycol 3350 17 Gm Powder PO 17 gm QDAY PRN Administration Constipation Propranolol HCl 20 mg 02/20/21 10:00 04/01/21 22:14 Propranolol 10 Mg Tab PO 20 mg BID LEYLA Administration Rifaximin 550 mg 03/10/21 12:00 04/01/21 22:14 Rifaximin 550 Mg Tab PO 550 mg BID LEYLA Administration Sodium Chloride 10 ml 02/19/21 10:00 04/01/21 22:14 Sodium Chloride 0.9% 10 Ml Flush Syringe IV 10 ml BID LEYLA Administration Sodium Chloride 10 ml 02/18/21 22:38 Sodium Chloride 0.9% 10 Ml Flush Syringe IV PRN PRN LINE FLUSH Zolpidem Tartrate 5 mg 02/24/21 09:54 03/08/21 23:25 Zolpidem 5 Mg Tab PO 5 mg QHS PRN Administration Sleep Nutrition/Malnutrition Assess - Dietary Evaluation Nutrition/Malnutrition Findings: Nutrition Notes Start: 02/19/21 10:48 Freq: Status: Active Protocol: Document 03/29/21 12:16 MK (Rec: 03/29/21 12:18 ALISSA [email or web address]) Nutrition Notes Initial or Follow up Reassessment Current Diagnosis CKD (stage V CKD),Diabetes Other Pertinent Diagnosis COVID-19 (+), hepatic encephalopathy, ascites Current Diet Renal/Consistent CHO + Nepro once daily Labs/Tests POC BG [id number] Pertinent Medications Reviewed Height 5 ft 11 in Weight 66.5 kg [place] Body Weight (kg) 78.18 BMI 20.4 Weight Status Appropriate Subjective/Other Information FU for intakes. Pt not answering phone. Per chart, pt ate 100% of meals yesterday. Percent of energy/protein needs met: 100%/100% Burn Absent Trauma Absent Current % PO Good (75-100%) Minimum of two criteria Yes Body Fat Depletion Mild depletion (non-severe) Fluid Accumulation Mild (non-severe) #2 Nutrition Diagnosis Increased nutrient needs ( specify in comment below) Diagnosis Progress(for reassessment Continues documentation) #1 Nutrition Diagnosis Malnutrition Diagnosis Progress(for reassessment Continues documentation) Is patient on ventilator? No Is Patient Ambulatory and/or Out of Bed No REE-([place]-St. Jeor-confined to bed) 1825.128 Calculation Used for Recommendations [place] Jeor Additional Notes Pro needs >1.2g/kg/day Fluid needs 1-1.5L/day Nutrition Intervention Change Diet Order: Continue current Add Supplement/Snack (indicate name/kcal Nepro daily /protein ) Provides kCal: 425 Provides Protein (gm) 19 Goal #1 PO intake of meals plus ONS to meet at least 75% energy and pro needs Goal #2 Wound healing Follow-Up By: 04/05/21 Additional Comments F/U for stable intakes and ONS tolerance
[2021-04-02] MEDS: CALCIUM ACETATE 667 MG CAP PO SCH ×3 (08:49→17:58)
--- NOTE | 2021-04-02 08:49 | Progress Note ---
Assessment and Plan 1. ESRD: Patient is on maintenance hemodialysis three times a week, MWF schedule. Meds dosage based on GFR. Missed HD 02/18. Hemodialysis: 02/19, 02/20, 02/22, 02/25, 02/27, 03/01, 03/04, 03/06, 03/08, 03/11, 03/13, 03/15, 03/18, 03/20, 03/22, 03/25, 03/27, 03/29, 04/01. 2. FEN: Monitor lytes and volume status. 3. Anemia, POA: 2/2 ESRD and Liver disease. Epogen with HD. PRBC as needed. 4. Cirrhosis with h/o hepatic encephalopathy: Lactulose and Rifaximin. Monitor. 5. DM type 2: SSI. Monitor. 6. Thrombocytopenia, POA. 7. Hypotension: BP was intermittently low especially while on hemodialysis. Was on Midodrine. Await placement. Subjective: Patient was seen and examined at the bedside. General Appearance: General appearance: well-developed, appears stated age, not in distress HEENT: ATNC, pupils equal Neck: trachea midline Respiratory: ctab Heart: regular, S1S2, no murmur Abdomen: soft, bowel sounds heard, slightly distended, not tender Integumentary: no rash, warm and dry Neurologic: lethargic, able to move extremities Ext: no edema, R BKA Hemodialysis access: R arm AVF Subjective Date of service: 04/02/21 Principal diagnosis: Acute renal failure Objective - Vital Signs Vital signs: Vital Signs - 12hr 04/01/21 04/01/21 04/01/21 21:29 22:00 22:14 Temperature 97.9 F Pulse Rate 76 76 Respiratory 16 17 Rate Respiratory 17 Rate [Right Upper Groin] Blood Pressure 128/57 128/57 O2 Sat by Pulse 100 Oximetry 04/02/21 04:52 Temperature 97.9 F Pulse Rate 72 Respiratory 16 Rate Respiratory Rate [Right Upper Groin] Blood Pressure 133/47 O2 Sat by Pulse 97 Oximetry - Lab 03/30/21 05:11 03/28/21 07:06 Most recent lab results Calcium 8.4 mg/dL (8.4-10.2) 03/28/21 07:06 Magnesium 2.10 mg/dL (1.7-2.3) 02/17/21 02:24 Medications & Allergies - Medications Allergies/Adverse Reactions: Allergies No Known Allergies Allergy (Verified 02/16/21 18:26) Home Medications: Home Medications Medication Instructions Recorded Confirmed Last Taken Type Calcium Acetate [Phoslo] 1,334 mg PO TIDWM #90 capsule 03/01/21 Unknown Rx Famotidine [Pepcid] 20 mg PO QAM #30 tablet 03/01/21 Unknown Rx Lactulose [Cephulac] 20 gm PO Q8HR 30 Days 03/01/21 Unknown Rx Lispro Insulin [HumaLOG] See Protocol SQ ACHS 30 Days 03/01/21 Unknown Rx allopurinoL [Zyloprim] 100 mg PO QDAY #30 tablet 03/01/21 Unknown Rx propranoloL [Inderal] 20 mg PO BID #60 tablet 03/01/21 Unknown Rx Active Medications: Generic Name Dose Route Start Last Admin Trade Name Freq PRN Reason Stop Dose Admin Acetaminophen 650 mg 02/18/21 22:38 03/09/21 13:15 Acetaminophen 325 Mg Tab PO 650 mg Q4H PRN Administration Pain MILD(1-3)/Fever >100.5/MOLINA Albuterol 2.5 mg 02/18/21 22:38 Albuterol 2.5 Mg/3 Ml Nebu IH Q3HRT PRN Shortness Of Breath Allopurinol 100 mg 02/20/21 10:00 04/01/21 12:34 Allopurinol 100 Mg Tab PO 100 mg QDAY LEYLA Administration Calcium Acetate 1,334 mg 02/20/21 08:30 04/01/21 19:05 Calcium Acetate 667 Mg Cap PO Not Given TIDWM LEYLA Dextrose 50 ml 03/29/21 12:00 Dextrose 50% In Water (25gm) 50 Ml Syringe IV Q30MIN PRN HYPOGLYCEMIA Protocol Diphenhydramine HCl 25 mg 02/23/21 09:10 03/24/21 09:01 Diphenhydramine 25 Mg Cap PO 25 mg BID PRN Administration Itching Famotidine 20 mg 02/19/21 10:00 04/01/21 12:33 Famotidine 20 Mg Tab PO 20 mg QAM LEYLA Administration Hydralazine HCl 10 mg 02/18/21 22:56 Hydralazine 20 Mg/1 Ml Inj IV Q6H PRN htn Hydroxyzine HCl 25 mg 03/24/21 10:38 Hydroxyzine Hcl 25 Mg Tab PO Q6H PRN Itching Sodium Chloride 100 mls @ 999 mls/hr 02/19/21 09:06 Nacl 0.9% IV OLIVIA PRN Hypotension Insulin Glargine 16 units 03/23/21 09:00 04/01/21 22:16 Insulin Glargine 100 Units/Ml SUB-Q 16 units QHS LEYLA Administration Insulin Human Lispro 0 unit 03/09/21 22:00 04/01/21 22:15 Insulin Lispro 100 Unit/Ml SUB-Q 4 unit ACHS LEYLA Administration Protocol Lactulose 20 gm 03/09/21 18:00 04/02/21 05:54 Lactulose 20 Gm/30 Ml Oral Liqd PO 20 gm Q6HR LEYLA Administration Ondansetron HCl 4 mg 02/18/21 22:38 02/28/21 12:32 Ondansetron 4 Mg/2 Ml Inj IV 4 mg Q8H PRN Administration Nausea And Vomiting Polyethylene Glycol 17 gm 02/24/21 12:08 02/24/21 12:47 Polyethylene Glycol 3350 17 Gm Powder PO 17 gm QDAY PRN Administration Constipation Propranolol HCl 20 mg 02/20/21 10:00 04/01/21 22:14 Propranolol 10 Mg Tab PO 20 mg BID LEYLA Administration Rifaximin 550 mg 03/10/21 12:00 04/01/21 22:14 Rifaximin 550 Mg Tab PO 550 mg BID LEYLA Administration Sodium Chloride 10 ml 02/19/21 10:00 04/01/21 22:14 Sodium Chloride 0.9% 10 Ml Flush Syringe IV 10 ml BID LEYLA Administration Sodium Chloride 10 ml 02/18/21 22:38 Sodium Chloride 0.9% 10 Ml Flush Syringe IV PRN PRN LINE FLUSH Zolpidem Tartrate 5 mg 02/24/21 09:54 03/08/21 23:25 Zolpidem 5 Mg Tab PO 5 mg QHS PRN Administration Sleep
[2021-04-02] MEDS: INSULIN LISPRO 100 UNIT/ML SUB-Q SCH ×4 (08:50→22:32)
[2021-04-02] MEDS: allopurinoL 100 MG TAB PO SCH (10:52)
[2021-04-02] MEDS: RIFAXIMIN 550 MG TAB PO SCH ×2 (10:52→22:31)
[2021-04-02] MEDS: FAMOTIDINE 20 MG TAB PO SCH (10:52)
[2021-04-02] MEDS: PROPRANOLOL 10 MG TAB PO SCH ×2 (11:05→22:31)
[2021-04-02] MEDS: INSULIN GLARGINE 100 UNITS/ML SUB-Q SCH (22:32)
[2021-04-03] MEDS: LACTULOSE 20 GM/30 ML ORAL LIQD PO SCH ×6 (00:20→23:13)
[2021-04-03] MEDS: INSULIN LISPRO 100 UNIT/ML SUB-Q SCH ×4 (07:30→22:57)
[2021-04-03 08:58] LABS: Hematocrit 24.9 % (35.5-45.6); Hemoglobin 8.2 gm/dl (11.8-15.2)
[2021-04-03 09:23] LABS: Calcium 8.5 mg/dL (8.4-10.2)
[2021-04-03] MEDS: PROPRANOLOL 10 MG TAB PO SCH ×3 (09:30→23:10)
[2021-04-03] MEDS: RIFAXIMIN 550 MG TAB PO SCH ×3 (09:31→23:12)
[2021-04-03] MEDS: FAMOTIDINE 20 MG TAB PO SCH (09:31)
[2021-04-03] MEDS: CALCIUM ACETATE 667 MG CAP PO SCH ×3 (09:31→17:16)
[2021-04-03] MEDS: allopurinoL 100 MG TAB PO SCH (09:32)
--- NOTE | 2021-04-03 11:49 | Progress Note ---
Assessment and Plan 1. ESRD: Patient is on maintenance hemodialysis three times a week, MWF schedule. Meds dosage based on GFR. Missed HD 02/18. Hemodialysis: 02/19, 02/20, 02/22, 02/25, 02/27, 03/01, 03/04, 03/06, 03/08, 03/11, 03/13, 03/15, 03/18, 03/20, 03/22, 03/25, 03/27, 03/29, 04/01. 2. FEN: Monitor lytes and volume status. 3. Anemia, POA: 2/2 ESRD and Liver disease. Epogen with HD. PRBC as needed. 4. Cirrhosis with h/o hepatic encephalopathy: Lactulose and Rifaximin. Monitor. 5. DM type 2: SSI. Monitor. 6. Thrombocytopenia, POA. 7. Hypotension: BP was intermittently low especially while on hemodialysis. Await placement. Subjective: Patient was seen and examined at the bedside. General Appearance: General appearance: well-developed, appears stated age, not in distress HEENT: ATNC, pupils equal Neck: trachea midline Respiratory: ctab Heart: regular, S1S2, no murmur Abdomen: soft, bowel sounds heard, slightly distended, not tender Integumentary: no rash, warm and dry Neurologic: lethargic, not following any command Ext: no edema, R BKA Hemodialysis access: R arm AVF Subjective Date of service: 04/03/21 Principal diagnosis: Acute renal failure Objective - Vital Signs Vital signs: Vital Signs - 12hr 04/03/21 04/03/21 04:13 09:30 Temperature 97.4 F L Pulse Rate 63 63 Respiratory 16 Rate Blood Pressure 123/57 123/57 O2 Sat by Pulse 73 L Oximetry - Lab 04/03/21 07:31 04/03/21 07:30 Most recent lab results Calcium 8.5 mg/dL (8.4-10.2) 04/03/21 07:30 Phosphorus 3.40 mg/dL (2.5-4.5) 04/03/21 07:30 Magnesium 2.10 mg/dL (1.7-2.3) 02/17/21 02:24 Medications & Allergies - Medications Allergies/Adverse Reactions: Allergies No Known Allergies Allergy (Verified 02/16/21 18:26) Home Medications: Home Medications Medication Instructions Recorded Confirmed Last Taken Type Calcium Acetate [Phoslo] 1,334 mg PO TIDWM #90 capsule 03/01/21 Unknown Rx Famotidine [Pepcid] 20 mg PO QAM #30 tablet 03/01/21 Unknown Rx Lactulose [Cephulac] 20 gm PO Q8HR 30 Days 03/01/21 Unknown Rx Lispro Insulin [HumaLOG] See Protocol SQ ACHS 30 Days 03/01/21 Unknown Rx allopurinoL [Zyloprim] 100 mg PO QDAY #30 tablet 03/01/21 Unknown Rx propranoloL [Inderal] 20 mg PO BID #60 tablet 03/01/21 Unknown Rx Active Medications: Generic Name Dose Route Start Last Admin Trade Name Freq PRN Reason Stop Dose Admin Acetaminophen 650 mg 02/18/21 22:38 03/09/21 13:15 Acetaminophen 325 Mg Tab PO 650 mg Q4H PRN Administration Pain MILD(1-3)/Fever >100.5/MOLINA Albuterol 2.5 mg 02/18/21 22:38 Albuterol 2.5 Mg/3 Ml Nebu IH Q3HRT PRN Shortness Of Breath Allopurinol 100 mg 02/20/21 10:00 04/03/21 09:32 Allopurinol 100 Mg Tab PO 100 mg QDAY LEYLA Administration Calcium Acetate 1,334 mg 02/20/21 08:30 04/03/21 09:31 Calcium Acetate 667 Mg Cap PO 1,334 mg TIDWM LEYLA Administration Dextrose 50 ml 03/29/21 12:00 Dextrose 50% In Water (25gm) 50 Ml Syringe IV Q30MIN PRN HYPOGLYCEMIA Protocol Diphenhydramine HCl 25 mg 02/23/21 09:10 03/24/21 09:01 Diphenhydramine 25 Mg Cap PO 25 mg BID PRN Administration Itching Famotidine 20 mg 02/19/21 10:00 04/03/21 09:31 Famotidine 20 Mg Tab PO 20 mg QAM LEYLA Administration Hydralazine HCl 10 mg 02/18/21 22:56 Hydralazine 20 Mg/1 Ml Inj IV Q6H PRN htn Hydroxyzine HCl 25 mg 03/24/21 10:38 Hydroxyzine Hcl 25 Mg Tab PO Q6H PRN Itching Sodium Chloride 100 mls @ 999 mls/hr 02/19/21 09:06 Nacl 0.9% IV OLIVIA PRN Hypotension Insulin Glargine 16 units 03/23/21 09:00 04/02/21 22:32 Insulin Glargine 100 Units/Ml SUB-Q 16 units QHS LEYLA Administration Insulin Human Lispro 0 unit 03/09/21 22:00 04/03/21 07:30 Insulin Lispro 100 Unit/Ml SUB-Q 6 unit ACHS LEYLA Administration Protocol Lactulose 20 gm 03/09/21 18:00 04/03/21 05:37 Lactulose 20 Gm/30 Ml Oral Liqd PO Not Given Q6HR [facility] Ondansetron HCl 4 mg 02/18/21 22:38 02/28/21 12:32 Ondansetron 4 Mg/2 Ml Inj IV 4 mg Q8H PRN Administration Nausea And Vomiting Polyethylene Glycol 17 gm 02/24/21 12:08 02/24/21 12:47 Polyethylene Glycol 3350 17 Gm Powder PO 17 gm QDAY PRN Administration Constipation Propranolol HCl 20 mg 02/20/21 10:00 04/03/21 09:30 Propranolol 10 Mg Tab PO 20 mg BID LEYLA Administration Rifaximin 550 mg 03/10/21 12:00 04/03/21 09:31 Rifaximin 550 Mg Tab PO 550 mg BID LEYLA Administration Sodium Chloride 10 ml 02/19/21 10:00 04/03/21 09:31 Sodium Chloride 0.9% 10 Ml Flush Syringe IV Not Given BID LEYLA Sodium Chloride 10 ml 02/18/21 22:38 Sodium Chloride 0.9% 10 Ml Flush Syringe IV PRN PRN LINE FLUSH Zolpidem Tartrate 5 mg 02/24/21 09:54 03/08/21 23:25 Zolpidem 5 Mg Tab PO 5 mg QHS PRN Administration Sleep
[2021-04-03] MEDS: INSULIN GLARGINE 100 UNITS/ML SUB-Q SCH (22:58)
[2021-04-04] MEDS: LACTULOSE 20 GM/30 ML ORAL LIQD PO SCH ×4 (07:20→23:07)
[2021-04-04] MEDS: INSULIN LISPRO 100 UNIT/ML SUB-Q SCH ×4 (07:30→23:03)
[2021-04-04] MEDS: CALCIUM ACETATE 667 MG CAP PO SCH ×3 (08:00→17:13)
[2021-04-04] MEDS: PROPRANOLOL 10 MG TAB PO SCH ×3 (08:46→23:04)
[2021-04-04] MEDS: allopurinoL 100 MG TAB PO SCH ×2 (08:47→16:29)
[2021-04-04] MEDS: FAMOTIDINE 20 MG TAB PO SCH ×2 (08:47→16:28)
[2021-04-04] MEDS: RIFAXIMIN 550 MG TAB PO SCH ×3 (08:47→23:04)
--- NOTE | 2021-04-04 09:55 | Progress Note ---
Assessment and Plan 1. ESRD: Patient is on maintenance hemodialysis three times a week, MWF schedule. Meds dosage based on GFR. Missed HD 02/18. Hemodialysis: 02/19, 02/20, 02/22, 02/25, 02/27, 03/01, 03/04, 03/06, 03/08, 03/11, 03/13, 03/15, 03/18, 03/20, 03/22, 03/25, 03/27, 03/29, 04/01, 04/03. 2. FEN: Monitor lytes and volume status. 3. Anemia, POA: 2/2 ESRD and Liver disease. Epogen with HD. PRBC as needed. 4. Cirrhosis with h/o hepatic encephalopathy: Lactulose and Rifaximin. Monitor. 5. DM type 2: SSI. Monitor. 6. Thrombocytopenia, POA. 7. Hypotension: BP was intermittently low especially while on hemodialysis. Await placement. Subjective: Patient was seen and examined at the bedside. General Appearance: General appearance: well-developed, appears stated age, not in distress HEENT: ATNC, pupils equal Neck: trachea midline Respiratory: ctab Heart: regular, S1S2, no murmur Abdomen: soft, bowel sounds heard, slightly distended, not tender Integumentary: no rash, warm and dry Neurologic: lethargic, not following any command Ext: no edema, R BKA Hemodialysis access: R arm AVF Subjective Date of service: 04/04/21 Principal diagnosis: Acute renal failure Objective - Vital Signs Vital signs: Vital Signs - 12hr 04/04/21 04/04/21 04:50 08:46 Temperature 97.9 F Pulse Rate 75 78 Respiratory 16 Rate Blood Pressure 115/50 130/60 O2 Sat by Pulse 94 Oximetry - Lab 04/03/21 07:31 04/03/21 07:30 Most recent lab results Calcium 8.5 mg/dL (8.4-10.2) 04/03/21 07:30 Phosphorus 3.40 mg/dL (2.5-4.5) 04/03/21 07:30 Magnesium 2.10 mg/dL (1.7-2.3) 02/17/21 02:24 Medications & Allergies - Medications Allergies/Adverse Reactions: Allergies No Known Allergies Allergy (Verified 02/16/21 18:26) Home Medications: Home Medications Medication Instructions Recorded Confirmed Last Taken Type Calcium Acetate [Phoslo] 1,334 mg PO TIDWM #90 capsule 03/01/21 Unknown Rx Famotidine [Pepcid] 20 mg PO QAM #30 tablet 03/01/21 Unknown Rx Lactulose [Cephulac] 20 gm PO Q8HR 30 Days 03/01/21 Unknown Rx Lispro Insulin [HumaLOG] See Protocol SQ ACHS 30 Days 03/01/21 Unknown Rx allopurinoL [Zyloprim] 100 mg PO QDAY #30 tablet 03/01/21 Unknown Rx propranoloL [Inderal] 20 mg PO BID #60 tablet 03/01/21 Unknown Rx Active Medications: Generic Name Dose Route Start Last Admin Trade Name Freq PRN Reason Stop Dose Admin Acetaminophen 650 mg 02/18/21 22:38 03/09/21 13:15 Acetaminophen 325 Mg Tab PO 650 mg Q4H PRN Administration Pain MILD(1-3)/Fever >100.5/MOLINA Albuterol 2.5 mg 02/18/21 22:38 Albuterol 2.5 Mg/3 Ml Nebu IH Q3HRT PRN Shortness Of Breath Allopurinol 100 mg 02/20/21 10:00 04/04/21 08:47 Allopurinol 100 Mg Tab PO 100 mg QDAY LEYLA Administration Calcium Acetate 1,334 mg 02/20/21 08:30 04/04/21 08:00 Calcium Acetate 667 Mg Cap PO 1,334 mg TIDWM LEYLA Administration Dextrose 50 ml 03/29/21 12:00 Dextrose 50% In Water (25gm) 50 Ml Syringe IV Q30MIN PRN HYPOGLYCEMIA Protocol Diphenhydramine HCl 25 mg 02/23/21 09:10 03/24/21 09:01 Diphenhydramine 25 Mg Cap PO 25 mg BID PRN Administration Itching Famotidine 20 mg 02/19/21 10:00 04/04/21 08:47 Famotidine 20 Mg Tab PO 20 mg QAM LEYLA Administration Hydralazine HCl 10 mg 02/18/21 22:56 Hydralazine 20 Mg/1 Ml Inj IV Q6H PRN htn Hydroxyzine HCl 25 mg 03/24/21 10:38 Hydroxyzine Hcl 25 Mg Tab PO Q6H PRN Itching Sodium Chloride 100 mls @ 999 mls/hr 02/19/21 09:06 Nacl 0.9% IV OLIVIA PRN Hypotension Insulin Glargine 16 units 03/23/21 09:00 04/03/21 22:58 Insulin Glargine 100 Units/Ml SUB-Q 16 units QHS LEYLA Administration Insulin Human Lispro 0 unit 03/09/21 22:00 04/04/21 07:30 Insulin Lispro 100 Unit/Ml SUB-Q Not Given ACHS PENDING SALE TO [facility] Protocol Lactulose 20 gm 03/09/21 18:00 04/04/21 07:20 Lactulose 20 Gm/30 Ml Oral Liqd PO Not Given Q6HR PENDING SALE TO [facility] Ondansetron HCl 4 mg 02/18/21 22:38 02/28/21 12:32 Ondansetron 4 Mg/2 Ml Inj IV 4 mg Q8H PRN Administration Nausea And Vomiting Polyethylene Glycol 17 gm 02/24/21 12:08 02/24/21 12:47 Polyethylene Glycol 3350 17 Gm Powder PO 17 gm QDAY PRN Administration Constipation Propranolol HCl 20 mg 02/20/21 10:00 04/04/21 08:46 Propranolol 10 Mg Tab PO 20 mg BID LEYLA Administration Rifaximin 550 mg 03/10/21 12:00 04/04/21 08:47 Rifaximin 550 Mg Tab PO 550 mg BID LEYLA Administration Sodium Chloride 10 ml 02/19/21 10:00 04/03/21 23:11 Sodium Chloride 0.9% 10 Ml Flush Syringe IV Not Given BID LEYLA Sodium Chloride 10 ml 02/18/21 22:38 Sodium Chloride 0.9% 10 Ml Flush Syringe IV PRN PRN LINE FLUSH Zolpidem Tartrate 5 mg 02/24/21 09:54 03/08/21 23:25 Zolpidem 5 Mg Tab PO 5 mg QHS PRN Administration Sleep
--- NOTE | 2021-04-04 16:31 | Progress Note ---
Assessment and Plan Assessment and Plan -- Hepatic encephalopathy -Patient alert and oriented x3. due to hepatic cirrhosis has resolved cont lactulose, Neuro check, seizure precaution, aspiration precaution, fall precautions, continue to monitor. -Diarrhea resolved was secondary to lactulose. Patient is alert no encephalopathy. -- End stage renal disease Nephrology team consulted, strict I's/O, monitor urine output every shift, dialysis as per renal team, avoid nephrotoxic agents. Await dialysis center. Still no dialysis center. We will dialyze as indicated. --Metabolic Acidosis Nephrology team consulted, dialysis as per renal team. --Hyponatremia Monitor BMP, monitor fluid balance.-Does not require to be checked today we will check every other day now. -- Hyperammonemia Continue lactulose --Pruritus Add Atarax most likely secondary to liver failure --Diabetes mellitus with hyperglycemia Consistent carb diet, SSI -- hyperkalemia, Improvement with dialysis --Ascites, s/p paracentesis drained 6.2l of ascitic fluid -no further ascites at this time. --Sacral wound, pain control continue local wound care. -- Moderate Protein Calorie Malnutrition, nutrition consulted --Noncompliance, counseled for medication compliance --Depression discussed about depression and initiation of Zoloft Subjective Date of service: 04/03/21 Principal diagnosis: Acute encephalopathy Interval history: 55 YO Male with ESRD on HD, Noncompliance with outpatient dialysis, Anemia, HBV, Chronic Liver Disease, Cirrhosis complicated by Esophageal Varices, HTN, Debility, DM presents to ED with confusion with diminished cognition. Patient family report the patient was "not acting like himself" and found to have worsening confusion over the past 2 days. In the ER the patient was found to have hepatic encephalopathy complicated by diminished cognition, end-stage renal disease in need of urgent dialysis, as well as uncontrolled diabetes, and acidosis. 61: Resume dialysis will adjust insulin for better coverage. Very poor progn osis considering poor medical compliance. Agree with hospice recommendation. Will obtain wound care to continue to manage. Monitor anemia as patient was pretty anemic during the last hospitalization. Required transfusion. 6/2: Continues to undergo dialysis no change in mental status noted. Tolerating medications. Blood sugar mildly elevated adjusted insulin yesterday when awake for the patient received a dose today and if still elevated will adjust. Again case management is working on discharge plan for this patient as he is pending placement 02/21 patient complains of right hip pain. He said he fell few weeks ago and is concerned about another fracture. He had a fracture about 8 weeks ago and had surgery. Will obtain X ray right hip. Patient pending placement. 02/22 Patient seen in Dialysis Unit. He states hip pain improved. No other complaints. Right hip X ray done yesterday report read may be healing fracture or acute fracture. Will discuss with Orthopedic Surgeon Patient pending placement 02/23 Less hip pain. Today complains of generalized itching. Will start Benadryl po prn. Orthopedic consulted to evaluate right hip. Patient pending placement 02/24 Less hip pain. Generalized itching now resolved. Orthopedic consulted to evaluate right hip. He complains of sleeplessness. Will give Ambien prn Patient pending placement 02/25 Patient requested DNR status yesterday. I discussed with him and he signed forms. He also complains of worsening abdominal distension and requested t apping, Will order paracentesis. Right hip evaluated by Dr. Trivedi and conservative management recommended. 02/26: Plan for paracentesis today. Need to set up dialysis as outpatient. 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 02/27: Patient did not sign the consent for paracentesis yesterday so paracentesis was done today and aspirated 6.2L ascitic fluid. Patient refusing medication per RN. Getting dialysis. Patient noted slightly altered today, will place NG tube remains altered and keep refusing oral meds, order for ammonia level and will cont lactulose. 02/28: Patient appears much more calm and cooperative today. He stated that he has been refusing procedure and medication as he believes he was not in the right state of his mind. Patient acknowledges the importance of being compliant and he promises that he will take the medications as he will be given. Discharge planning per case management as patient would need outpatient dialysis center set up and personal alf set up. 03/01/21: Patient has assisted setting but according to case management rn no available RN to accept the patient till Thursday. Continue supportive care. Discharge pending on placement. 03/02/21 -03/04/21: Discharge pending on placement, continue to monitor clinically. Continue current management and plan and supportive care. Patient need SNF placement. 03/05/2021; Awaiting SNF placement for discharge. Prognosis is very poor. Patient is nonresponsive. I try to reach to his son over the phone but could not get in touch. Patient is appropriate for hospice care. 03/06/2021; patient is awaiting SNF placement. Patient was alert and oriented. No confusion. Patient is stable to be discharged back to SNF. 03/07/2021; patient has hemoglobin of 6.8 this morning. A unit of blood ordered. Will monitor H&H. Nephrology is following for dialysis. 03/08/2021; patient's hemoglobin was 6.8 yesterday and transfused a unit of blood. I ordered yesterday to do posttransfusion H&H and was not done. CBC was ordered to be done this morning but was not done. COVID-19 test was done on 03/06 and positive. Nephrology is following the patient for his dialysis. Plan is to discharge him to SNF. Will follow with case management because patient is Covid positive. 03/09/2021; patient's repeat Covid test on 03/08/2021 was positive. Patient is pending for SNF Placement. Patient had hypoglycemia yesterday and patient was placed on Lantus and his sliding scale adjusted to high dose. Will monitor and adjust as needed. 03/10/2021; pending SNF placement. Covid test was positive on and . 03/11/2021; patient has hepatic encephalopathy and his ammonia level is very high, patient is currently on lactulose and rifaximin. Ammonia level is trending down. Nephrology is following for dialysis. Patient has positive Covid test last one was on 03/08, that makes placement difficult. Continue with case management. 03/12: Still awaiting placement, discussed with nursing staff to monitor mental status changes. Will check ammonia level. Continue to adjust blood sugar. Complicated by COVID POSITIVELY. Awaiting placement for the patient. Also dialysis chair time. I have discussed with case management as my understanding was that patient was to go for hospice but this plan appears to have changed possibly not clear to me at this time 03/13: Continue supportive care crush medications that can be crushed. Ammonia level is elevated but not as elevated as previously. Continue lactulose advised nursing staff that this should be given as ordered to communicate with the night team also. Unfortunately when the patient gets better he refuses his lactulose. I truly believe that we should strongly consider palliative care for this patient but nevertheless if he wants to continue dialysis and will be compliant with his medications this is definitely an option can be pursued. Aspiration precautions monitor hemoglobin and platelets. 03/14: Patient seen and examined, more awake today. Continue supportive care, patient was made DNR wade, signed the form today after confirming the patient and also the physician. Monitor for fever. AWAITING PLACEMENT. poor prognosis 03/15/21 Patient is seen and examined. Lab and medication reviewed. Patient denied any chest pain or shortness of breath. Patient is more awake alert today. Patient is getting them hemodialysis today. Continue current management. Awaiting placement. 03/16/21 patient seen and examined. Lab and medication reviewed. Patient feels better. Hemoglobin 8.2 and hematocrit 23.9. Complained of pain in the butt. No other complain. Continue current management and supportive care. Patient is waiting for placement. 03/17: Patient remains with poor prognosis refusing dietary intake. Again discussed hospice and palliative care management considering his current medical condition and declining poor prognostic factors. Discussed with nursing staff patient will continue with lactulose had refused this morning but did take it yesterday. Continue aspiration precautions. Discussed the importance of taking the medication the patient verbalized understanding 03/18: Patient undergoing HD discharge planning ongoing discussed with case management team. Covid test ordered today for placement purposes. 03/19/2021; Covid test was ordered and result is pending. Pending placement. 03/20/2021; patient's Covid test was positive again on 03/20/2021. Pending placement. 03/21/2021. Patient cooperative no acute distress at this time. Complains of loose stool diarrhea. Still awaiting placement. Unable to find hemodialysis placement 03/22/2021. Patient last Covid test was positive however initial test was greater than 14 days ago. Patient is no longer infected. Unable to find hemodialysis line at present. Patient being evaluated for [facility]. 03/23/2021. Patient continues to state he feels good much better at this time. Resting comfortably. No distress noted. Still awaiting hemodialysis center. 03/24/2021 patient with flat mood discussed about depression. Resting comfortably watching TV. 03/25/2021. Patient denies depression at this time. Complains of itching all over. When am i getting out of here 03/26/2021. Case management reports patient is still awaiting hemodialysis plac ement 03/27/2021. Case management reports patient is still awaiting hemodialysis placement. Patient is on maintenance hemodialysis three times a week, MWF schedule. Cont. Lactulose and Rifaximin. Epogen with HD. 03/28/2021. Case management reports patient is still awaiting hemodialysis placement. 03/29/2021. Plan is for the patient to go to [facility] and awaiting on hemodialysis arrangements. [facility] and does not have a bed available. Covid test ordered. We will continue to follow up with case management on discharge planning. 03/30/2021. No new developments. Await hemodialysis placement and potential transfer to [facility]. 03/31/2021. No new developments. Await hemodialysis placement and potential transfer to [facility]. 04/03/2021 Waiting for transfer to detention facility Objective - Constitutional Vitals: Vital Signs - 12hr 04/04/21 04/04/21 04/04/21 04:50 08:46 12:24 Temperature 97.9 F 98.4 F Pulse Rate 75 78 79 Respiratory 16 18 Rate Blood Pressure 115/50 130/60 160/69 O2 Sat by Pulse 94 99 Oximetry General appearance: Present: no acute distress, well-nourished - EENT Eyes: PERRL, EOM intact ENT: hearing intact, clear oral mucosa Ears: bilateral: normal - Neck Neck: supple, normal ROM - Respiratory Respiratory effort: normal Respiratory: bilateral: CTA - Breasts Breasts: normal - Cardiovascular Heart rate: 78 Rhythm: regular Heart Sounds: Present: S1 & S2. Absent: gallop, rub Extremities: pulses intact, No edema, normal color, Full ROM - Gastrointestinal General gastrointestinal: Present: soft, non-tender, non-distended, normal bowel sounds - Genitourinary Male genitourinary: normal - Integumentary Integumentary: clear, warm, dry - Musculoskeletal Musculoskeletal: 1, strength equal bilaterally - Neurologic Neurologic: moves all extremities - Allied health notes Allied health notes reviewed: nursing, case management - Labs CBC & Chem 7: 04/03/21 07:31 04/03/21 07:30 Labs: Abnormal lab results 04/03/21 04/03/21 04/03/21 Range/Units 16:45 20:47 Unknown POC Glucose 170 H 175 H (70-105) mg/dL Coronavirus (PCR) Positive A (Negative) 04/04/21 04/04/21 Range/Units 08:19 12:21 POC Glucose 112 H 278 H (70-105) mg/dL Coronavirus (PCR) (Negative)
--- NOTE | 2021-04-04 16:31 | Progress Note ---
Assessment and Plan Assessment and Plan -- Hepatic encephalopathy -Patient alert and oriented x3. due to hepatic cirrhosis has resolved cont lactulose, Neuro check, seizure precaution, aspiration precaution, fall precautions, continue to monitor. -Diarrhea resolved was secondary to lactulose. Patient is alert no encephalopathy. -- End stage renal disease Nephrology team consulted, strict I's/O, monitor urine output every shift, dialysis as per renal team, avoid nephrotoxic agents. Await dialysis center. Still no dialysis center. We will dialyze as indicated. --Metabolic Acidosis Nephrology team consulted, dialysis as per renal team. --Hyponatremia Monitor BMP, monitor fluid balance.-Does not require to be checked today we will check every other day now. -- Hyperammonemia Continue lactulose --Pruritus Add Atarax most likely secondary to liver failure --Diabetes mellitus with hyperglycemia Consistent carb diet, SSI -- hyperkalemia, Improvement with dialysis --Ascites, s/p paracentesis drained 6.2l of ascitic fluid -no further ascites at this time. --Sacral wound, pain control continue local wound care. -- Moderate Protein Calorie Malnutrition, nutrition consulted --Noncompliance, counseled for medication compliance --Depression discussed about depression and initiation of Zoloft Waiting for transfer to prison facility Subjective Date of service: 04/04/21 Principal diagnosis: Acute encephalopathy Interval history: 55 YO Male with ESRD on HD, Noncompliance with outpatient dialysis, Anemia, HBV, Chronic Liver Disease, Cirrhosis complicated by Esophageal Varices, HTN, Debility, DM presents to ED with confusion with diminished cognition. Patient family report the patient was "not acting like himself" and found to have worsening confusion over the past 2 days. In the ER the patient was found to have hepatic encephalopathy complicated by diminished cognition, end-stage renal disease in need of urgent dialysis, as well as uncontrolled diabetes, and acidosis. 61: Resume dialysis will adjust insulin for better coverage. Very poor prognosis considering poor medical compliance. Agree with hospice recommendation. Will obtain wound care to continue to manage. Monitor anemia as patient was pretty anemic during the last hospitalization. Required transfusion. /2: Continues to undergo dialysis no change in mental status noted. Tolerating medications. Blood sugar mildly elevated adjusted insulin yesterday when awake for the patient received a dose today and if still elevated will adjust. Again case management is working on discharge plan for this patient as he is pending placement 02/21 patient complains of right hip pain. He said he fell few weeks ago and is concerned about another fracture. He had a fracture about 8 weeks ago and had surgery. Will obtain X ray right hip. Patient pending placement. 02/22 Patient seen in Dialysis Unit. He states hip pain improved. No other complaints. Right hip X ray done yesterday report read may be healing fracture or acute fracture. Will discuss with Orthopedic Surgeon Patient pending placement 02/23 Less hip pain. Today complains of generalized itching. Will start Benadryl po prn. Orthopedic consulted to evaluate right hip. Patient pending placement 02/24 Less hip pain. Generalized itching now resolved. Orthopedic consulted to ev aluate right hip. He complains of sleeplessness. Will give Ambien prn Patient pending placement 02/25 Patient requested DNR status yesterday. I discussed with him and he signed forms. He also complains of worsening abdominal distension and requested tapping, Will order paracentesis. Right hip evaluated by Dr. Trivedi and conservative management recommended. 02/26: Plan for paracentesis today. Need to set up dialysis as outpatient. technical delivery manager working on discharge planning. 02/27: Patient did not sign the consent for paracentesis yesterday so paracentesis was done today and aspirated 6.2L ascitic fluid. Patient refusing medication per RN. Getting dialysis. Patient noted slightly altered today, will place NG tube remains altered and keep refusing oral meds, order for ammonia level and will cont lactulose. 02/28: Patient appears much more calm and cooperative today. He stated that he h as been refusing procedure and medication as he believes he was not in the right state of his mind. Patient acknowledges the importance of being compliant and he promises that he will take the medications as he will be given. Discharge planning per case management as patient would need outpatient dialysis center set up and personal fpc set up. 03/01/21: Patient has halfway setting but according to business case analyst no available RN to accept the patient till Thursday. Continue supportive care. Discharge pending on placement. 03/02/21 -03/04/21: Discharge pending on placement, continue to monitor clinically. Continue current management and plan and supportive care. Patient need SNF placement. 03/05/2021; Awaiting SNF placement for discharge. Prognosis is very poor. Patient is nonresponsive. I try to reach to his son over the phone but could not get in touch. Patient is appropriate for hospice care. 03/06/2021; patient is awaiting SNF placement. Patient was alert and oriented. No confusion. Patient is stable to be discharged back to SNF. 03/07/2021; patient has hemoglobin of 6.8 this morning. A unit of blood ordered. Will monitor H&H. Nephrology is following for dialysis. 03/08/2021; patient's hemoglobin was 6.8 yesterday and transfused a unit of blood. I ordered yesterday to do posttransfusion H&H and was not done. CBC was ordered to be done this morning but was not done. COVID-19 test was done on 03/06 and positive. Nephrology is following the patient for his dialysis. Plan is to discharge him to SNF. Will follow with case management because patient is Covid positive. 03/09/2021; patient's repeat Covid test on 03/08/2021 was positive. Patient is pending for SNF Placement. Patient had hypoglycemia yesterday and patient was placed on Lantus and his sliding scale adjusted to high dose. Will monitor and adjust as needed. 03/10/2021; pending SNF placement. Covid test was positive on and . 03/11/2021; patient has hepatic encephalopathy and his ammonia level is very high, patient is currently on lactulose and rifaximin. Ammonia level is rafael nding down. Nephrology is following for dialysis. Patient has positive Covid test last one was on 03/08, that makes placement difficult. Continue with case management. 03/12: Still awaiting placement, discussed with nursing staff to monitor mental status changes. Will check ammonia level. Continue to adjust blood sugar. Complicated by COVID POSITIVELY. Awaiting placement for the patient. Also dialysis chair time. I have discussed with case management as my understanding was that patient was to go for hospice but this plan appears to have changed possibly not clear to me at this time 03/13: Continue supportive care crush medications that can be crushed. Ammonia level is elevated but not as elevated as previously. Continue lactulose advised nursing staff that this should be given as ordered to communicate with the night team also. Unfortunately when the patient gets better he refuses his lactulose. I truly believe that we should strongly consider palliative care for this regis ent but nevertheless if he wants to continue dialysis and will be compliant with his medications this is definitely an option can be pursued. Aspiration precautions monitor hemoglobin and platelets. 03/14: Patient seen and examined, more awake today. Continue supportive care, patient was made DNR wade, signed the form today after confirming the patient and also the physician. Monitor for fever. AWAITING PLACEMENT. poor prognosis 03/15/21 Patient is seen and examined. Lab and medication reviewed. Patient denied any chest pain or shortness of breath. Patient is more awake alert today. Patient is getting them hemodialysis today. Continue current management. Awaiting placement. 03/16/21 patient seen and examined. Lab and medication reviewed. Patient feels better. Hemoglobin 8.2 and hematocrit 23.9. Complained of pain in the butt. No other complain. Continue current management and supportive care. Patient is waiting for placement. 03/17: Patient remains with poor prognosis refusing dietary intake. Again discussed hospice and palliative care management considering his current medical condition and declining poor prognostic factors. Discussed with nursing staff darrell son continue with lactulose had refused this morning but did take it yesterday. Continue aspiration precautions. Discussed the importance of taking the medication the patient verbalized underst anding 03/18: Patient undergoing HD discharge planning ongoing discussed with case management team. Covid test ordered today for placement purposes. 03/19/2021; Covid test was ordered and result is pending. Pending placement. 03/20/2021; patient's Covid test was positive again on 03/20/2021. Pending placement. 03/21/2021. Patient cooperative no acute distress at this time. Complains of loose stool diarrhea. Still awaiting placement. Unable to find hemodialysis placement 03/22/2021. Patient last Covid test was positive however initial test was greater than 14 days ago. Patient is no longer infected. Unable to find hemodialysis line at present. Patient being evaluated for [facility]. 03/23/2021. Patient continues to state he feels good much better at this time. Resting comfortably. No distress noted. Still awaiting hemodialysis center. 03/24/2021 patient with flat mood discussed about depression. Resting comfortably watching TV. 03/25/2021. Patient denies depression at this time. Complains of itching all over. When am i getting out of here 03/26/2021. Case management reports patient is still awaiting hemodialysis placement 03/27/2021. Case management reports patient is still awaiting hemodialysis placement. Patient is on maintenance hemodialysis three times a week, MWF schedule. Cont. Lactulose and Rifaximin. Epogen with HD. 03/28/2021. Case management reports patient is still awaiting hemodialysis placement. 03/29/2021. Plan is for the patient to go to [facility] and awaiting on hemodialysis arrangements. [facility] and does not have a bed available. Covid test ordered. We will continue to follow up with case management on discharge planning. 03/30/2021. No new developments. Await hemodialysis placement and potential transfer to [facility]. 03/31/2021. No new developments. Await hemodialysis placement and potential transfer to [facility]. 04/03/2021 Waiting for transfer to prison facility 04/04/2021 Waiting for transfer to prison facility Objective - Constitutional Vitals: Vital Signs - 12hr 04/04/21 04/04/21 04/04/21 04:50 08:46 12:24 Temperature 97.9 F 98.4 F Pulse Rate 75 78 79 Respiratory 16 18 Rate Blood Pressure 115/50 130/60 160/69 O2 Sat by Pulse 94 99 Oximetry General appearance: Present: no acute distress, well-nourished - EENT Eyes: PERRL, EOM intact ENT: hearing intact, clear oral mucosa Ears: bilateral: normal - Neck Neck: supple, normal ROM - Respiratory Respiratory effort: normal Respiratory: bilateral: CTA - Breasts Breasts: normal - Cardiovascular Heart rate: 78 Rhythm: regular Heart Sounds: Present: S1 & S2. Absent: gallop, rub Extremities: pulses intact, No edema, normal color, Full ROM - Gastrointestinal General gastrointestinal: Present: soft, non-tender, non-distended, normal bowel sounds - Genitourinary Male genitourinary: normal - Integumentary Integumentary: clear, warm, dry - Musculoskeletal Musculoskeletal: 1, strength equal bilaterally - Neurologic Neurologic: moves all extremities - Psychiatric Psychiatric: memory intact, appropriate mood/affect, intact judgment & insight - Labs CBC & Chem 7: 04/03/21 07:31 04/03/21 07:30 Labs: Abnormal lab results 04/03/21 04/03/21 04/03/21 Range/Units 16:45 20:47 Unknown POC Glucose 170 H 175 H (70-105) mg/dL Coronavirus (PCR) Positive A (Negative) 04/04/21 04/04/21 Range/Units 08:19 12:21 POC Glucose 112 H 278 H (70-105) mg/dL Coronavirus (PCR) (Negative)
[2021-04-04] MEDS: INSULIN GLARGINE 100 UNITS/ML SUB-Q SCH (23:03)
[2021-04-05] MEDS: LACTULOSE 20 GM/30 ML ORAL LIQD PO SCH ×4 (05:22→23:31)
[2021-04-05 07:57] LABS: Eosinophils # (Auto) 0.1 K/mm3 (0.0-0.4); Eosinophils % (Auto) 3.4 % (0.0-4.3); Hematocrit 21.5 % (35.5-45.6); Hemoglobin 7.2 gm/dl (11.8-15.2); Lymphocytes # (Auto) 0.7 K/mm3 (1.2-5.4); Lymphocytes % (Auto) 18.6 % (13.4-35.0); Mean Corpuscular HGB Conc 33 % (32-34); Mean Corpuscular Volume 92 fl (84-94); Monocytes # (Auto) 0.5 K/mm3 (0.0-0.8); Monocytes % (Auto) 12.6 % (0.0-7.3); Red Blood Count 2.33 M/mm3 (3.65-5.03); Red Cell Distribution Width 18.2 % (13.2-15.2)
[2021-04-05 08:12] LABS: Platelet Count 72 K/mm3 (140-440)
[2021-04-05] MEDS: INSULIN LISPRO 100 UNIT/ML SUB-Q SCH ×4 (08:36→23:32)
[2021-04-05] MEDS: CALCIUM ACETATE 667 MG CAP PO SCH ×3 (09:19→18:12)
[2021-04-05] MEDS: FAMOTIDINE 20 MG TAB PO SCH (09:19)
[2021-04-05] MEDS: RIFAXIMIN 550 MG TAB PO SCH ×2 (09:20→23:31)
[2021-04-05] MEDS: PROPRANOLOL 10 MG TAB PO SCH ×2 (09:20→23:31)
[2021-04-05] MEDS: allopurinoL 100 MG TAB PO SCH (09:20)
[2021-04-05 09:46] LABS: Albumin 2.5 g/dL (3.9-5); Calcium 8.9 mg/dL (8.4-10.2)
--- NOTE | 2021-04-05 10:49 | Progress Note ---
Assessment and Plan 1. ESRD: Patient is on maintenance hemodialysis three times a week, MWF schedule. Meds dosage based on GFR. Missed HD 02/18. Hemodialysis: 02/19, 02/20, 02/22, 02/25, 02/27, 03/01, 03/04, 03/06, 03/08, 03/11, 03/13, 03/15, 03/18, 03/20, 03/22, 03/25, 03/27, 03/29, 04/01, 04/03. 2. FEN: Monitor lytes and volume status. 3. Anemia, POA: 2/2 ESRD and Liver disease. Epogen with HD. IV Iron 125 mg 04/05. PRBC as needed. 4. Cirrhosis with h/o hepatic encephalopathy: Lactulose and Rifaximin. Monitor. 5. DM type 2: SSI. Monitor. 6. Thrombocytopenia, POA. 7. Hypotension: BP was intermittently low especially while on hemodialysis. Await placement. Subjective: Patient was seen and examined at the bedside. General Appearance: General appearance: well-developed, appears stated age, not in distress HEENT: ATNC, pupils equal Neck: trachea midline Respiratory: ctab Heart: regular, S1S2, no murmur Abdomen: soft, bowel sounds heard, slightly distended, not tender Integumentary: no rash, warm and dry Neurologic: lethargic, not following any command Ext: no edema, R BKA Hemodialysis access: R arm AVF Subjective Date of service: 04/05/21 Principal diagnosis: Acute encephalopathy Objective - Vital Signs Vital signs: Vital Signs - 12hr 04/05/21 04/05/21 05:03 09:28 Temperature 97.9 F Pulse Rate 76 Respiratory 20 Rate Blood Pressure 185/75 134/60 O2 Sat by Pulse 99 Oximetry - Lab 04/05/21 07:46 04/05/21 07:46 Most recent lab results Calcium 8.9 mg/dL (8.4-10.2) 04/05/21 07:46 Phosphorus 3.40 mg/dL (2.5-4.5) 04/03/21 07:30 Magnesium 2.10 mg/dL (1.7-2.3) 02/17/21 02:24 Medications & Allergies - Medications Allergies/Adverse Reactions: Allergies No Known Allergies Allergy (Verified 02/16/21 18:26) Home Medications: Home Medications Medication Instructions Recorded Confirmed Last Taken Type Calcium Acetate [Phoslo] 1,334 mg PO TIDWM #90 capsule 03/01/21 Unknown Rx Famotidine [Pepcid] 20 mg PO QAM #30 tablet 03/01/21 Unknown Rx Lactulose [Cephulac] 20 gm PO Q8HR 30 Days 03/01/21 Unknown Rx Lispro Insulin [HumaLOG] See Protocol SQ ACHS 30 Days 03/01/21 Unknown Rx allopurinoL [Zyloprim] 100 mg PO QDAY #30 tablet 03/01/21 Unknown Rx propranoloL [Inderal] 20 mg PO BID #60 tablet 03/01/21 Unknown Rx Active Medications: Generic Name Dose Route Start Last Admin Trade Name Freq PRN Reason Stop Dose Admin Acetaminophen 650 mg 02/18/21 22:38 03/09/21 13:15 Acetaminophen 325 Mg Tab PO 650 mg Q4H PRN Administration Pain MILD(1-3)/Fever >100.5/MOLINA Albuterol 2.5 mg 02/18/21 22:38 Albuterol 2.5 Mg/3 Ml Nebu IH Q3HRT PRN Shortness Of Breath Allopurinol 100 mg 02/20/21 10:00 04/05/21 09:20 Allopurinol 100 Mg Tab PO 100 mg QDAY LEYLA Administration Calcium Acetate 1,334 mg 02/20/21 08:30 04/05/21 09:19 Calcium Acetate 667 Mg Cap PO 1,334 mg TIDWM LEYLA Administration Dextrose 50 ml 03/29/21 12:00 Dextrose 50% In Water (25gm) 50 Ml Syringe IV Q30MIN PRN HYPOGLYCEMIA Protocol Diphenhydramine HCl 25 mg 02/23/21 09:10 03/24/21 09:01 Diphenhydramine 25 Mg Cap PO 25 mg BID PRN Administration Itching Famotidine 20 mg 02/19/21 10:00 04/05/21 09:19 Famotidine 20 Mg Tab PO 20 mg QAM LEYLA Administration Hydralazine HCl 10 mg 02/18/21 22:56 Hydralazine 20 Mg/1 Ml Inj IV Q6H PRN htn Hydroxyzine HCl 25 mg 03/24/21 10:38 Hydroxyzine Hcl 25 Mg Tab PO Q6H PRN Itching Sodium Chloride 100 mls @ 999 mls/hr 02/19/21 09:06 Nacl 0.9% IV OLIVIA PRN Hypotension Insulin Glargine 16 units 03/23/21 09:00 04/04/21 23:03 Insulin Glargine 100 Units/Ml SUB-Q 16 units QHS LEYLA Administration Insulin Human Lispro 0 unit 03/09/21 22:00 04/05/21 08:36 Insulin Lispro 100 Unit/Ml SUB-Q 3 unit ACHS LEYLA Administration Protocol Lactulose 20 gm 03/09/21 18:00 04/05/21 05:22 Lactulose 20 Gm/30 Ml Oral Liqd PO 20 gm Q6HR LEYLA Administration Ondansetron HCl 4 mg 02/18/21 22:38 02/28/21 12:32 Ondansetron 4 Mg/2 Ml Inj IV 4 mg Q8H PRN Administration Nausea And Vomiting Polyethylene Glycol 17 gm 02/24/21 12:08 02/24/21 12:47 Polyethylene Glycol 3350 17 Gm Powder PO 17 gm QDAY PRN Administration Constipation Propranolol HCl 20 mg 02/20/21 10:00 04/05/21 09:20 Propranolol 10 Mg Tab PO 20 mg BID LEYLA Administration Rifaximin 550 mg 03/10/21 12:00 04/05/21 09:20 Rifaximin 550 Mg Tab PO 550 mg BID LEYLA Administration Sodium Chloride 10 ml 02/19/21 10:00 04/05/21 09:19 Sodium Chloride 0.9% 10 Ml Flush Syringe IV Not Given BID LEYLA Sodium Chloride 10 ml 02/18/21 22:38 Sodium Chloride 0.9% 10 Ml Flush Syringe IV PRN PRN LINE FLUSH Zolpidem Tartrate 5 mg 02/24/21 09:54 03/08/21 23:25 Zolpidem 5 Mg Tab PO 5 mg QHS PRN Administration Sleep
[2021-04-05] MEDS ORDERED: SODIUM FERRIC GLUCON/SUCRO 125 MG in SODIUM CHLORIDE 0.9% 100 ML IV ONE (12:00)
[2021-04-05] MEDS: EPOETIN ALFA-EPBX 20,000 UNIT/1 ML VIAL SUB-Q PRN (22:40)
[2021-04-05] MEDS: INSULIN GLARGINE 100 UNITS/ML SUB-Q SCH (23:31)
[2021-04-06] MEDS: LACTULOSE 20 GM/30 ML ORAL LIQD PO SCH ×3 (06:26→18:18)
--- NOTE | 2021-04-06 07:27 | Progress Note ---
Assessment and Plan Assessment and Plan -- Hepatic encephalopathy -Patient alert and oriented x3. due to hepatic cirrhosis has resolved cont lactulose, Neuro check, seizure precaution, aspiration precaution, fall precautions, continue to monitor. -Diarrhea resolved was secondary to lactulose. Patient is alert no encephalopathy. -- End stage renal disease Nephrology team consulted, strict I's/O, monitor urine output every shift, dialysis as per renal team, avoid nephrotoxic agents. Await dialysis center. Still no dialysis center. We will dialyze as indicated. --Metabolic Acidosis Nephrology team consulted, dialysis as per renal team. --Hyponatremia Monitor BMP, monitor fluid balance.-Does not require to be checked today we will check every other day now. -- Hyperammonemia Continue lactulose --Pruritus Add Atarax most likely secondary to liver failure --Diabetes mellitus with hyperglycemia Consistent carb diet, SSI -- hyperkalemia, Improvement with dialysis --Ascites, s/p paracentesis drained 6.2l of ascitic fluid -no further ascites at this time. --Sacral wound, pain control continue local wound care. -- Moderate Protein Calorie Malnutrition, nutrition consulted --Noncompliance, counseled for medication compliance --Depression discussed about depression and initiation of Zoloft Waiting for transfer to intermediate facility Subjective Date of service: 04/05/21 Principal diagnosis: Acute encephalopathy Interval history: 55 YO Male with ESRD on HD, Noncompliance with outpatient dialysis, Anemia, HBV, Chronic Liver Disease, Cirrhosis complicated by Esophageal Varices, HTN, Debility, DM presents to ED with confusion with diminished cognition. Patient family report the patient was "not acting like himself" and found to have worsening confusion over the past 2 days. In the ER the patient was found to have hepatic encephalopathy complicated by diminished cognition, end-stage renal disease in need of urgent dialysis, as well as uncontrolled diabetes, and acidosis. 61: Resume dialysis will adjust insulin for better coverage. Very poor prognosis considering poor medical compliance. Agree with hospice recommendation. Will obtain wound care to continue to manage. Monitor anemia as patient was pretty anemic during the last hospitalization. Required transfusion. /2: Continues to undergo dialysis no change in mental status noted. Tolerating medications. Blood sugar mildly elevated adjusted insulin yesterday when awake for the patient received a dose today and if still elevated will adjust. Again case management is working on discharge plan for this patient as he is pending placement 02/21 patient complains of right hip pain. He said he fell few weeks ago and is concerned about another fracture. He had a fracture about 8 weeks ago and had surgery. Will obtain X ray right hip. Patient pending placement. 02/22 Patient seen in Dialysis Unit. He states hip pain improved. No other complaints. Right hip X ray done yesterday report read may be healing fracture or acute fracture. Will discuss with Orthopedic Surgeon Patient pending placement 02/23 Less hip pain. Today complains of generalized itching. Will start Benadryl po prn. Orthopedic consulted to evaluate right hip. Patient pending placement 02/24 Less hip pain. Generalized itching now resolved. Orthopedic consulted to ev aluate right hip. He complains of sleeplessness. Will give Ambien prn Patient pending placement 02/25 Patient requested DNR status yesterday. I discussed with him and he signed forms. He also complains of worsening abdominal distension and requested tapping, Will order paracentesis. Right hip evaluated by Dr. Trivedi and conservative management recommended. 02/26: Plan for paracentesis today. Need to set up dialysis as outpatient. data deliverables manager working on discharge planning. 02/27: Patient did not sign the consent for paracentesis yesterday so paracentesis was done today and aspirated 6.2L ascitic fluid. Patient refusing medication per RN. Getting dialysis. Patient noted slightly altered today, will place NG tube remains altered and keep refusing oral meds, order for ammonia level and will cont lactulose. 02/28: Patient appears much more calm and cooperative today. He stated that he h as been refusing procedure and medication as he believes he was not in the right state of his mind. Patient acknowledges the importance of being compliant and he promises that he will take the medications as he will be given. Discharge planning per case management as patient would need outpatient dialysis center set up and personal detention set up. 03/01/21: Patient has group home setting but according to case management rn no available RN to accept the patient till Thursday. Continue supportive care. Discharge pending on placement. 03/02/21 -03/04/21: Discharge pending on placement, continue to monitor clinically. Continue current management and plan and supportive care. Patient need SNF placement. 03/05/2021; Awaiting SNF placement for discharge. Prognosis is very poor. Patient is nonresponsive. I try to reach to his son over the phone but could not get in touch. Patient is appropriate for hospice care. 03/06/2021; patient is awaiting SNF placement. Patient was alert and oriented. No confusion. Patient is stable to be discharged back to SNF. 03/07/2021; patient has hemoglobin of 6.8 this morning. A unit of blood ordered. Will monitor H&H. Nephrology is following for dialysis. 03/08/2021; patient's hemoglobin was 6.8 yesterday and transfused a unit of blood. I ordered yesterday to do posttransfusion H&H and was not done. CBC was ordered to be done this morning but was not done. COVID-19 test was done on 03/06 and positive. Nephrology is following the patient for his dialysis. Plan is to discharge him to SNF. Will follow with case management because patient is Covid positive. 03/09/2021; patient's repeat Covid test on 03/08/2021 was positive. Patient is pending for SNF Placement. Patient had hypoglycemia yesterday and patient was placed on Lantus and his sliding scale adjusted to high dose. Will monitor and adjust as needed. 03/10/2021; pending SNF placement. Covid test was positive on and . 03/11/2021; patient has hepatic encephalopathy and his ammonia level is very high, patient is currently on lactulose and rifaximin. Ammonia level is rafael nding down. Nephrology is following for dialysis. Patient has positive Covid test last one was on 03/08, that makes placement difficult. Continue with case management. 03/12: Still awaiting placement, discussed with nursing staff to monitor mental status changes. Will check ammonia level. Continue to adjust blood sugar. Complicated by COVID POSITIVELY. Awaiting placement for the patient. Also dialysis chair time. I have discussed with case management as my understanding was that patient was to go for hospice but this plan appears to have changed possibly not clear to me at this time 03/13: Continue supportive care crush medications that can be crushed. Ammonia level is elevated but not as elevated as previously. Continue lactulose advised nursing staff that this should be given as ordered to communicate with the night team also. Unfortunately when the patient gets better he refuses his lactulose. I truly believe that we should strongly consider palliative care for this regis ent but nevertheless if he wants to continue dialysis and will be compliant with his medications this is definitely an option can be pursued. Aspiration precautions monitor hemoglobin and platelets. 03/14: Patient seen and examined, more awake today. Continue supportive care, patient was made DNR wade, signed the form today after confirming the patient and also the physician. Monitor for fever. AWAITING PLACEMENT. poor prognosis 03/15/21 Patient is seen and examined. Lab and medication reviewed. Patient denied any chest pain or shortness of breath. Patient is more awake alert today. Patient is getting them hemodialysis today. Continue current management. Awaiting placement. 03/16/21 patient seen and examined. Lab and medication reviewed. Patient feels better. Hemoglobin 8.2 and hematocrit 23.9. Complained of pain in the butt. No other complain. Continue current management and supportive care. Patient is waiting for placement. 03/17: Patient remains with poor prognosis refusing dietary intake. Again discussed hospice and palliative care management considering his current medical condition and declining poor prognostic factors. Discussed with nursing staff darrell son continue with lactulose had refused this morning but did take it yesterday. Continue aspiration precautions. Discussed the importance of taking the medication the patient verbalized underst anding 03/18: Patient undergoing HD discharge planning ongoing discussed with case management team. Covid test ordered today for placement purposes. 03/19/2021; Covid test was ordered and result is pending. Pending placement. 03/20/2021; patient's Covid test was positive again on 03/20/2021. Pending placement. 03/21/2021. Patient cooperative no acute distress at this time. Complains of loose stool diarrhea. Still awaiting placement. Unable to find hemodialysis placement 03/22/2021. Patient last Covid test was positive however initial test was greater than 14 days ago. Patient is no longer infected. Unable to find hemodialysis line at present. Patient being evaluated for [facility]. 03/23/2021. Patient continues to state he feels good much better at this time. Resting comfortably. No distress noted. Still awaiting hemodialysis center. 03/24/2021 patient with flat mood discussed about depression. Resting comfortably watching TV. 03/25/2021. Patient denies depression at this time. Complains of itching all over. When am i getting out of here 03/26/2021. Case management reports patient is still awaiting hemodialysis placement 03/27/2021. Case management reports patient is still awaiting hemodialysis placement. Patient is on maintenance hemodialysis three times a week, MWF schedule. Cont. Lactulose and Rifaximin. Epogen with HD. 03/28/2021. Case management reports patient is still awaiting hemodialysis placement. 03/29/2021. Plan is for the patient to go to [facility] and awaiting on hemodialysis arrangements. [facility] and does not have a bed available. Covid test ordered. We will continue to follow up with case management on discharge planning. 03/30/2021. No new developments. Await hemodialysis placement and potential transfer to [facility]. 03/31/2021. No new developments. Await hemodialysis placement and potential transfer to [facility]. 04/03/2021 Waiting for transfer to intermediate facility 04/04/2021 Waiting for transfer to intermediate facility 04/05/2021 Undergoing hemodialysis during making examination Waiting for placement Objective - Constitutional Vitals: Vital Signs - 12hr 04/05/21 04/05/21 04/05/21 19:30 19:45 20:00 Temperature Pulse Rate 72 77 75 Respiratory Rate Blood Pressure 127/66 115/56 115/55 Blood Pressure [Left] O2 Sat by Pulse Oximetry 04/05/21 04/05/21 04/05/21 20:15 20:30 20:45 Temperature Pulse Rate 73 77 81 Respiratory Rate Blood Pressure 108/56 122/54 115/51 Blood Pressure [Left] O2 Sat by Pulse Oximetry 04/05/21 04/05/21 04/05/21 21:00 21:15 21:30 Temperature Pulse Rate 77 76 78 Respiratory Rate Blood Pressure 112/65 126/55 114/55 Blood Pressure [Left] O2 Sat by Pulse Oximetry 04/05/21 04/05/21 04/05/21 21:45 22:00 22:30 Temperature 97.5 F L Pulse Rate 66 78 72 Respiratory 18 Rate Blood Pressure 126/62 121/58 132/68 Blood Pressure [Left] O2 Sat by Pulse Oximetry 04/05/21 04/05/21 04/06/21 23:22 23:30 05:05 Temperature 98.2 F 98.0 F Pulse Rate 77 76 78 Respiratory 18 18 Rate Blood Pressure 103/62 156/56 Blood Pressure 151/66 [Left] O2 Sat by Pulse 99 97 Oximetry General appearance: Present: no acute distress, well-nourished - EENT Eyes: PERRL, EOM intact ENT: hearing intact, clear oral mucosa Ears: bilateral: normal - Neck Neck: supple, normal ROM - Respiratory Respiratory effort: normal Respiratory: bilateral: CTA - Breasts Breasts: normal - Cardiovascular Heart rate: 78 Rhythm: regular Heart Sounds: Present: S1 & S2. Absent: gallop, rub Extremities: pulses intact, No edema, normal color, Full ROM - Gastrointestinal General gastrointestinal: Present: soft, non-tender, non-distended, normal bowel sounds - Genitourinary Male genitourinary: normal - Integumentary Integumentary: clear, warm, dry - Musculoskeletal Musculoskeletal: 1, strength equal bilaterally - Neurologic Neurologic: moves all extremities - Psychiatric Psychiatric: memory intact, appropriate mood/affect, intact judgment & insight - Labs CBC & Chem 7: 04/05/21 07:46 04/05/21 07:46 Labs: Abnormal lab results 04/05/21 04/05/21 04/05/21 Range/Units 07:46 07:46 07:46 WBC 3.6 L (4.5-11.0) K/mm3 RBC 2.33 L (3.65-5.03) M/mm3 Hgb 7.2 L (11.8-15.2) gm/dl Hct 21.5 L (35.5-45.6) % RDW 18.2 H (13.2-15.2) % Plt Count 72 L (140-440) K/mm3 [place] % (Auto) 12.6 H (0.0-7.3) % Lymph # (Auto) 0.7 L (1.2-5.4) K/mm3 BUN 60 H (9-20) mg/dL Creatinine 6.5 H (0.8-1.3) mg/dL Glucose 217 H (75-100) mg/dL POC Glucose (70-105) mg/dL Alkaline Phosphatase 183 H (35-129) units/L Ammonia 68.0 H (25-60) umol/L Total Protein 5.8 L (6.3-8.2) g/dL Albumin 2.5 L (3.9-5) g/dL 04/05/21 04/05/21 04/05/21 Range/Units 08:20 11:38 17:43 WBC (4.5-11.0) K/mm3 RBC (3.65-5.03) M/mm3 Hgb (11.8-15.2) gm/dl Hct (35.5-45.6) % RDW (13.2-15.2) % Plt Count (140-440) K/mm3 [place] % (Auto) (0.0-7.3) % Lymph # (Auto) (1.2-5.4) K/mm3 BUN (9-20) mg/dL Creatinine (0.8-1.3) mg/dL Glucose (75-100) mg/dL POC Glucose 194 H 216 H 272 H (70-105) mg/dL Alkaline Phosphatase (35-129) units/L Ammonia (25-60) umol/L Total Protein (6.3-8.2) g/dL Albumin (3.9-5) g/dL 04/05/21 04/06/21 04/06/21 Range/Units 21:53 02:12 06:29 WBC (4.5-11.0) K/mm3 RBC (3.65-5.03) M/mm3 Hgb (11.8-15.2) gm/dl Hct (35.5-45.6) % RDW (13.2-15.2) % Plt Count (140-440) K/mm3 [place] % (Auto) (0.0-7.3) % Lymph # (Auto) (1.2-5.4) K/mm3 BUN (9-20) mg/dL Creatinine (0.8-1.3) mg/dL Glucose (75-100) mg/dL POC Glucose 210 H 159 H 109 H (70-105) mg/dL Alkaline Phosphatase (35-129) units/L Ammonia (25-60) umol/L Total Protein (6.3-8.2) g/dL Albumin (3.9-5) g/dL
[2021-04-06] MEDS: INSULIN LISPRO 100 UNIT/ML SUB-Q SCH ×4 (08:20→22:26)
--- NOTE | 2021-04-06 09:47 | Progress Note ---
Assessment and Plan 1. ESRD: Patient is on maintenance hemodialysis three times a week, MWF schedule. Meds dosage based on GFR. Missed HD 02/18. Hemodialysis: 02/19, 02/20, 02/22, 02/25, 02/27, 03/01, 03/04, 03/06, 03/08, 03/11, 03/13, 03/15, 03/18, 03/20, 03/22, 03/25, 03/27, 03/29, 04/01, 04/03, 04/05. 2. FEN: Monitor lytes and volume status. 3. Anemia, POA: 2/2 ESRD and Liver disease. Epogen with HD. IV Iron 125 mg 04/05. PRBC as needed. 4. Cirrhosis with h/o hepatic encephalopathy: Lactulose and Rifaximin. Monitor. 5. DM type 2: SSI. Monitor. 6. Thrombocytopenia, POA. 7. Hypotension: BP was intermittently low especially while on hemodialysis. Await placement. Subjective: Patient was seen and examined at the bedside. General Appearance: General appearance: well-developed, appears stated age, not in distress HEENT: ATNC, pupils equal Neck: trachea midline Respiratory: ctab Heart: regular, S1S2, no murmur Abdomen: soft, bowel sounds heard, slightly distended, not tender Integumentary: no rash, warm and dry Neurologic: lethargic, not following any command Ext: no edema, R BKA Hemodialysis access: R arm AVF Subjective Date of service: 04/06/21 Principal diagnosis: Acute encephalopathy Objective - Vital Signs Vital signs: Vital Signs - 12hr 04/05/21 04/05/21 04/05/21 22:00 22:30 23:22 Temperature 97.5 F L 98.2 F Pulse Rate 78 72 77 Respiratory 18 18 Rate Blood Pressure 121/58 132/68 103/62 Blood Pressure [Left] O2 Sat by Pulse 99 Oximetry 04/05/21 04/06/21 23:30 05:05 Temperature 98.0 F Pulse Rate 76 78 Respiratory 18 Rate Blood Pressure 156/56 Blood Pressure 151/66 [Left] O2 Sat by Pulse 97 Oximetry - Lab 04/05/21 07:46 04/05/21 07:46 Most recent lab results Calcium 8.9 mg/dL (8.4-10.2) 04/05/21 07:46 Phosphorus 3.40 mg/dL (2.5-4.5) 04/03/21 07:30 Magnesium 2.10 mg/dL (1.7-2.3) 02/17/21 02:24 Medications & Allergies - Medications Allergies/Adverse Reactions: Allergies No Known Allergies Allergy (Verified 02/16/21 18:26) Home Medications: Home Medications Medication Instructions Recorded Confirmed Last Taken Type Calcium Acetate [Phoslo] 1,334 mg PO TIDWM #90 capsule 03/01/21 Unknown Rx Famotidine [Pepcid] 20 mg PO QAM #30 tablet 03/01/21 Unknown Rx Lactulose [Cephulac] 20 gm PO Q8HR 30 Days 03/01/21 Unknown Rx Lispro Insulin [HumaLOG] See Protocol SQ ACHS 30 Days 03/01/21 Unknown Rx allopurinoL [Zyloprim] 100 mg PO QDAY #30 tablet 03/01/21 Unknown Rx propranoloL [Inderal] 20 mg PO BID #60 tablet 03/01/21 Unknown Rx Active Medications: Generic Name Dose Route Start Last Admin Trade Name Freq PRN Reason Stop Dose Admin Acetaminophen 650 mg 02/18/21 22:38 03/09/21 13:15 Acetaminophen 325 Mg Tab PO 650 mg Q4H PRN Administration Pain MILD(1-3)/Fever >100.5/MOLINA Albuterol 2.5 mg 02/18/21 22:38 Albuterol 2.5 Mg/3 Ml Nebu IH Q3HRT PRN Shortness Of Breath Allopurinol 100 mg 02/20/21 10:00 04/05/21 09:20 Allopurinol 100 Mg Tab PO 100 mg QDAY LEYLA Administration Calcium Acetate 1,334 mg 02/20/21 08:30 04/05/21 18:12 Calcium Acetate 667 Mg Cap PO 1,334 mg TIDWM LEYLA Administration Dextrose 50 ml 03/29/21 12:00 Dextrose 50% In Water (25gm) 50 Ml Syringe IV Q30MIN PRN HYPOGLYCEMIA Protocol Diphenhydramine HCl 25 mg 02/23/21 09:10 03/24/21 09:01 Diphenhydramine 25 Mg Cap PO 25 mg BID PRN Administration Itching Famotidine 20 mg 02/19/21 10:00 04/05/21 09:19 Famotidine 20 Mg Tab PO 20 mg QAM LEYLA Administration Hydralazine HCl 10 mg 02/18/21 22:56 Hydralazine 20 Mg/1 Ml Inj IV Q6H PRN htn Hydroxyzine HCl 25 mg 03/24/21 10:38 Hydroxyzine Hcl 25 Mg Tab PO Q6H PRN Itching Sodium Chloride 100 mls @ 999 mls/hr 02/19/21 09:06 Nacl 0.9% IV OLIVIA PRN Hypotension Insulin Glargine 16 units 03/23/21 09:00 04/05/21 23:31 Insulin Glargine 100 Units/Ml SUB-Q 16 units QHS LEYLA Administration Insulin Human Lispro 0 unit 03/09/21 22:00 04/06/21 08:20 Insulin Lispro 100 Unit/Ml SUB-Q Not Given ACHS [facility] Protocol Lactulose 20 gm 03/09/21 18:00 04/06/21 06:26 Lactulose 20 Gm/30 Ml Oral Liqd PO 20 gm Q6HR LEYLA Administration Ondansetron HCl 4 mg 02/18/21 22:38 02/28/21 12:32 Ondansetron 4 Mg/2 Ml Inj IV 4 mg Q8H PRN Administration Nausea And Vomiting Polyethylene Glycol 17 gm 02/24/21 12:08 02/24/21 12:47 Polyethylene Glycol 3350 17 Gm Powder PO 17 gm QDAY PRN Administration Constipation Propranolol HCl 20 mg 02/20/21 10:00 04/05/21 23:31 Propranolol 10 Mg Tab PO 20 mg BID LEYLA Administration Rifaximin 550 mg 03/10/21 12:00 04/05/21 23:31 Rifaximin 550 Mg Tab PO 550 mg BID LEYLA Administration Sodium Chloride 10 ml 02/19/21 10:00 04/05/21 23:32 Sodium Chloride 0.9% 10 Ml Flush Syringe IV 10 ml BID LEYLA Administration Sodium Chloride 10 ml 02/18/21 22:38 Sodium Chloride 0.9% 10 Ml Flush Syringe IV PRN PRN LINE FLUSH Zolpidem Tartrate 5 mg 02/24/21 09:54 03/08/21 23:25 Zolpidem 5 Mg Tab PO 5 mg QHS PRN Administration Sleep
[2021-04-06] MEDS: PROPRANOLOL 10 MG TAB PO SCH ×2 (10:09→22:24)
[2021-04-06] MEDS: FAMOTIDINE 20 MG TAB PO SCH (10:09)
[2021-04-06] MEDS: allopurinoL 100 MG TAB PO SCH (10:09)
[2021-04-06] MEDS: RIFAXIMIN 550 MG TAB PO SCH ×2 (10:10→22:27)
[2021-04-06] MEDS: CALCIUM ACETATE 667 MG CAP PO SCH ×3 (10:10→18:18)
[2021-04-06] MEDS: INSULIN GLARGINE 100 UNITS/ML SUB-Q SCH (22:23)
[2021-04-07] MEDS: LACTULOSE 20 GM/30 ML ORAL LIQD PO SCH ×4 (00:37→17:30)
[2021-04-07] MEDS: RIFAXIMIN 550 MG TAB PO SCH ×2 (08:59→21:53)
[2021-04-07] MEDS: FAMOTIDINE 20 MG TAB PO SCH (08:59)
[2021-04-07] MEDS: CALCIUM ACETATE 667 MG CAP PO SCH ×3 (08:59→17:29)
[2021-04-07] MEDS: PROPRANOLOL 10 MG TAB PO SCH ×2 (08:59→21:53)
[2021-04-07] MEDS: allopurinoL 100 MG TAB PO SCH (08:59)
[2021-04-07] MEDS: INSULIN LISPRO 100 UNIT/ML SUB-Q SCH ×4 (09:00→22:54)
--- NOTE | 2021-04-07 14:38 | Progress Note ---
Assessment and Plan Assessment and Plan -- Hepatic encephalopathy -Patient alert and oriented x3. due to hepatic cirrhosis has resolved cont lactulose, Neuro check, seizure precaution, aspiration precaution, fall precautions, continue to monitor. -Diarrhea resolved was secondary to lactulose. Patient is alert no encephalopathy. -- End stage renal disease Nephrology team consulted, strict I's/O, monitor urine output every shift, dialysis as per renal team, avoid nephrotoxic agents. Await dialysis center. Still no dialysis center. We will dialyze as indicated. --Metabolic Acidosis Nephrology team consulted, dialysis as per renal team. --Hyponatremia Monitor BMP, monitor fluid balance.-Does not require to be checked today we will check every other day now. -- Hyperammonemia Continue lactulose --Pruritus Add Atarax most likely secondary to liver failure --Diabetes mellitus with hyperglycemia Consistent carb diet, SSI -- hyperkalemia, Improvement with dialysis --Ascites, s/p paracentesis drained 6.2l of ascitic fluid -no further ascites at this time. --Sacral wound, pain control continue local wound care. -- Moderate Protein Calorie Malnutrition, nutrition consulted --Noncompliance, counseled for medication compliance --Depression discussed about depression and initiation of Zoloft Waiting for transfer to prison facility Subjective Date of service: 04/07/21 Principal diagnosis: Acute encephalopathy Interval history: 55 YO Male with ESRD on HD, Noncompliance with outpatient dialysis, Anemia, HBV, Chronic Liver Disease, Cirrhosis complicated by Esophageal Varices, HTN, Debility, DM presents to ED with confusion with diminished cognition. Patient family report the patient was "not acting like himself" and found to have worsening confusion over the past 2 days. In the ER the patient was found to have hepatic encephalopathy complicated by diminished cognition, end-stage renal disease in need of urgent dialysis, as well as uncontrolled diabetes, and acidosis. 61: Resume dialysis will adjust insulin for better coverage. Very poor prognosis considering poor medical compliance. Agree with hospice recommendation. Will obtain wound care to continue to manage. Monitor anemia as patient was pretty anemic during the last hospitalization. Required transfusion. /2: Continues to undergo dialysis no change in mental status noted. Tolerating medications. Blood sugar mildly elevated adjusted insulin yesterday when awake for the patient received a dose today and if still elevated will adjust. Again case management is working on discharge plan for this patient as he is pending placement 02/21 patient complains of right hip pain. He said he fell few weeks ago and is concerned about another fracture. He had a fracture about 8 weeks ago and had surgery. Will obtain X ray right hip. Patient pending placement. 02/22 Patient seen in Dialysis Unit. He states hip pain improved. No other complaints. Right hip X ray done yesterday report read may be healing fracture or acute fracture. Will discuss with Orthopedic Surgeon Patient pending placement 02/23 Less hip pain. Today complains of generalized itching. Will start Benadryl po prn. Orthopedic consulted to evaluate right hip. Patient pending placement 02/24 Less hip pain. Generalized itching now resolved. Orthopedic consulted to ev aluate right hip. He complains of sleeplessness. Will give Ambien prn Patient pending placement 02/25 Patient requested DNR status yesterday. I discussed with him and he signed forms. He also complains of worsening abdominal distension and requested tapping, Will order paracentesis. Right hip evaluated by Dr. Trivedi and conservative management recommended. 02/26: Plan for paracentesis today. Need to set up dialysis as outpatient. medical case manager working on discharge planning. 02/27: Patient did not sign the consent for paracentesis yesterday so paracentesis was done today and aspirated 6.2L ascitic fluid. Patient refusing medication per RN. Getting dialysis. Patient noted slightly altered today, will place NG tube remains altered and keep refusing oral meds, order for ammonia level and will cont lactulose. 02/28: Patient appears much more calm and cooperative today. He stated that he h as been refusing procedure and medication as he believes he was not in the right state of his mind. Patient acknowledges the importance of being compliant and he promises that he will take the medications as he will be given. Discharge planning per case management as patient would need outpatient dialysis center set up and [facility] set [facility]. 03/01/21: Patient has [facility] setting but according to caseworker intake no available RN to accept the patient till Thursday. Continue supportive care. Discharge pending on placement. 03/02/21 -03/04/21: Discharge pending on placement, continue to monitor clinically. Continue current management and plan and supportive care. Patient need SNF placement. 03/05/2021; Awaiting SNF placement for discharge. Prognosis is very poor. Patient is nonresponsive. I try to reach to his son over the phone but could not get in touch. Patient is appropriate for hospice care. 03/06/2021; patient is awaiting SNF placement. Patient was alert and oriented. No confusion. Patient is stable to be discharged back to SNF. 03/07/2021; patient has hemoglobin of 6.8 this morning. A unit of blood ordered. Will monitor H&H. Nephrology is following for dialysis. 03/08/2021; patient's hemoglobin was 6.8 yesterday and transfused a unit of blood. I ordered yesterday to do posttransfusion H&H and was not done. CBC was ordered to be done this morning but was not done. COVID-19 test was done on 03/06 and positive. Nephrology is following the patient for his dialysis. Plan is to discharge him to SNF. Will follow with case management because patient is Covid positive. 03/09/2021; patient's repeat Covid test on 03/08/2021 was positive. Patient is pending for SNF Placement. Patient had hypoglycemia yesterday and patient was placed on Lantus and his sliding scale adjusted to high dose. Will monitor and adjust as needed. 03/10/2021; pending SNF placement. Covid test was positive on and . 03/11/2021; patient has hepatic encephalopathy and his ammonia level is very high, patient is currently on lactulose and rifaximin. Ammonia level is rafael nding down. Nephrology is following for dialysis. Patient has positive Covid test last one was on 03/08, that makes placement difficult. Continue with case management. 03/12: Still awaiting placement, discussed with nursing staff to monitor mental status changes. Will check ammonia level. Continue to adjust blood sugar. Complicated by COVID POSITIVELY. Awaiting placement for the patient. Also dialysis chair time. I have discussed with case management as my understanding was that patient was to go for hospice but this plan appears to have changed possibly not clear to me at this time 03/13: Continue supportive care crush medications that can be crushed. Ammonia level is elevated but not as elevated as previously. Continue lactulose advised nursing staff that this should be given as ordered to communicate with the night team also. Unfortunately when the patient gets better he refuses his lactulose. I truly believe that we should strongly consider palliative care for this regis ent but nevertheless if he wants to continue dialysis and will be compliant with his medications this is definitely an option can be pursued. Aspiration precautions monitor hemoglobin and platelets. 03/14: Patient seen and examined, more awake today. Continue supportive care, patient was made DNR wade, signed the form today after confirming the patient and also the physician. Monitor for fever. AWAITING PLACEMENT. poor prognosis 03/15/21 Patient is seen and examined. Lab and medication reviewed. Patient denied any chest pain or shortness of breath. Patient is more awake alert today. Patient is getting them hemodialysis today. Continue current management. Awaiting placement. 03/16/21 patient seen and examined. Lab and medication reviewed. Patient feels better. Hemoglobin 8.2 and hematocrit 23.9. Complained of pain in the butt. No other complain. Continue current management and supportive care. Patient is waiting for placement. 03/17: Patient remains with poor prognosis refusing dietary intake. Again discussed hospice and palliative care management considering his current medical condition and declining poor prognostic factors. Discussed with nursing staff darrell son continue with lactulose had refused this morning but did take it yesterday. Continue aspiration precautions. Discussed the importance of taking the medication the patient verbalized underst anding 03/18: Patient undergoing HD discharge planning ongoing discussed with case management team. Covid test ordered today for placement purposes. 03/19/2021; Covid test was ordered and result is pending. Pending placement. 03/20/2021; patient's Covid test was positive again on 03/20/2021. Pending placement. 03/21/2021. Patient cooperative no acute distress at this time. Complains of loose stool diarrhea. Still awaiting placement. Unable to find hemodialysis placement 03/22/2021. Patient last Covid test was positive however initial test was greater than 14 days ago. Patient is no longer infected. Unable to find hemodialysis line at present. Patient being evaluated for [facility]. 03/23/2021. Patient continues to state he feels good much better at this time. Resting comfortably. No distress noted. Still awaiting hemodialysis center. 03/24/2021 patient with flat mood discussed about depression. Resting comfortably watching TV. 03/25/2021. Patient denies depression at this time. Complains of itching all over. When am i getting out of here 03/26/2021. Case management reports patient is still awaiting hemodialysis placement 03/27/2021. Case management reports patient is still awaiting hemodialysis placement. Patient is on maintenance hemodialysis three times a week, MWF schedule. Cont. Lactulose and Rifaximin. Epogen with HD. 03/28/2021. Case management reports patient is still awaiting hemodialysis placement. 03/29/2021. Plan is for the patient to go to [facility] and awaiting on hemodialysis arrangements. [place] and does not have a bed available. Covid test ordered. We will continue to follow up with case management on discharge planning. 03/30/2021. No new developments. Await hemodialysis placement and potential transfer to [facility]. 03/31/2021. No new developments. Await hemodialysis placement and potential transfer to [facility]. 04/03/2021 Waiting for transfer to prison facility 04/04/2021 Waiting for transfer to prison facility 04/05/2021 Undergoing hemodialysis during making examination Waiting for placement 04/06/2021 Waiting for placement 04/07/2021 waiting for placement Objective - Constitutional Vitals: Vital Signs - 12hr 04/07/21 04:06 Temperature 97.8 F Pulse Rate 37 L Respiratory 16 Rate Blood Pressure 129/55 O2 Sat by Pulse 55 L Oximetry General appearance: Present: no acute distress, well-nourished - EENT Eyes: PERRL, EOM intact ENT: hearing intact, clear oral mucosa Ears: bilateral: normal - Neck Neck: supple, normal ROM - Respiratory Respiratory effort: normal Respiratory: bilateral: CTA - Breasts Breasts: normal - Cardiovascular Heart rate: 78 Rhythm: regular Heart Sounds: Present: S1 & S2. Absent: gallop, rub Extremities: pulses intact, No edema, normal color, Full ROM - Gastrointestinal General gastrointestinal: Present: soft, non-tender, non-distended, normal bowel sounds - Genitourinary Male genitourinary: normal - Integumentary Integumentary: clear, warm, dry - Musculoskeletal Musculoskeletal: 1, strength equal bilaterally - Neurologic Neurologic: moves all extremities - Psychiatric Psychiatric: memory intact, appropriate mood/affect, intact judgment & insight - Labs CBC & Chem 7: 04/05/21 07:46 04/05/21 07:46 Labs: Abnormal lab results 04/06/21 04/06/21 04/07/21 Range/Units 17:04 21:21 07:50 POC Glucose 219 H 191 H 285 H (70-105) mg/dL 04/07/21 Range/Units 11:28 POC Glucose 238 H (70-105) mg/dL
[2021-04-07] MEDS: INSULIN GLARGINE 100 UNITS/ML SUB-Q SCH (21:52)
[2021-04-08] MEDS: LACTULOSE 20 GM/30 ML ORAL LIQD PO SCH ×5 (00:50→23:11)
--- NOTE | 2021-04-08 06:50 | Progress Note ---
Assessment and Plan Assessment and Plan -- Hepatic encephalopathy -Patient alert and oriented x3. due to hepatic cirrhosis has resolved cont lactulose, Neuro check, seizure precaution, aspiration precaution, fall precautions, continue to monitor. -Diarrhea resolved was secondary to lactulose. Patient is alert no encephalopathy. -- End stage renal disease Nephrology team consulted, strict I's/O, monitor urine output every shift, dialysis as per renal team, avoid nephrotoxic agents. Await dialysis center. Still no dialysis center. We will dialyze as indicated. --Metabolic Acidosis Nephrology team consulted, dialysis as per renal team. --Hyponatremia Monitor BMP, monitor fluid balance.-Does not require to be checked today we will check every other day now. -- Hyperammonemia Continue lactulose --Pruritus Add Atarax most likely secondary to liver failure --Diabetes mellitus with hyperglycemia Consistent carb diet, SSI -- hyperkalemia, Improvement with dialysis --Ascites, s/p paracentesis drained 6.2l of ascitic fluid -no further ascites at this time. --Sacral wound, pain control continue local wound care. -- Moderate Protein Calorie Malnutrition, nutrition consulted --Noncompliance, counseled for medication compliance --Depression discussed about depression and initiation of Zoloft [facility] Subjective Date of service: 04/08/21 Principal diagnosis: Acute encephalopathy Interval history: 55 YO Male with ESRD on HD, Noncompliance with outpatient dialysis, Anemia, HBV, Chronic Liver Disease, Cirrhosis complicated by Esophageal Varices, HTN, Debility, DM presents to ED with confusion with diminished cognition. Patient family report the patient was "not acting like himself" and found to have worsening confusion over the past 2 days. In the ER the patient was found to have hepatic encephalopathy complicated by diminished cognition, end-stage renal disease in need of urgent dialysis, as well as uncontrolled diabetes, and acidosis. 61: Resume dialysis will adjust insulin for better coverage. Very poor prognosis considering poor medical compliance. Agree with hospice recommendation. Will obtain wound care to continue to manage. Monitor anemia as patient was pretty anemic during the last hospitalization. Required transfusion. /2: Continues to undergo dialysis no change in mental status noted. Tolerating medications. Blood sugar mildly elevated adjusted insulin yesterday when awake for the patient received a dose today and if still elevated will adjust. Again case management is working on discharge plan for this patient as he is pending placement 02/21 patient complains of right hip pain. He said he fell few weeks ago and is concerned about another fracture. He had a fracture about 8 weeks ago and had surgery. Will obtain X ray right hip. Patient pending placement. 02/22 Patient seen in Dialysis Unit. He states hip pain improved. No other complaints. Right hip X ray done yesterday report read may be healing fracture or acute fracture. Will discuss with Orthopedic Surgeon Patient pending placement 02/23 Less hip pain. Today complains of generalized itching. Will start Benadryl po prn. Orthopedic consulted to evaluate right hip. Patient pending placement 02/24 Less hip pain. Generalized itching now resolved. Orthopedic consulted to ev aluate right hip. He complains of sleeplessness. Will give Ambien prn Patient pending placement 02/25 Patient requested DNR status yesterday. I discussed with him and he signed forms. He also complains of worsening abdominal distension and requested tapping, Will order paracentesis. Right hip evaluated by Dr. Trivedi and conservative management recommended. 02/26: Plan for paracentesis today. Need to set up dialysis as outpatient. manager commission working on discharge planning. 02/27: Patient did not sign the consent for paracentesis yesterday so paracentesis was done today and aspirated 6.2L ascitic fluid. Patient refusing medication per RN. Getting dialysis. Patient noted slightly altered today, will place NG tube remains altered and keep refusing oral meds, order for ammonia level and will cont lactulose. 02/28: Patient appears much more calm and cooperative today. He stated that he h as been refusing procedure and medication as he believes he was not in the right state of his mind. Patient acknowledges the importance of being compliant and he promises that he will take the medications as he will be given. Discharge planning per case management as patient would need outpatient dialysis center set up and personal fpc set up. 03/01/21: Patient has [facility] setting but according to family service caseworker no available RN to accept the patient till Thursday. Continue supportive care. Discharge pending on placement. 03/02/21 -03/04/21: Discharge pending on placement, continue to monitor clinically. Continue current management and plan and supportive care. Patient need SNF placement. 03/05/2021; Awaiting SNF placement for discharge. Prognosis is very poor. Patient is nonresponsive. I try to reach to his son over the phone but could not get in touch. Patient is appropriate for hospice care. 03/06/2021; patient is awaiting SNF placement. Patient was alert and oriented. No confusion. Patient is stable to be discharged back to SNF. 03/07/2021; patient has hemoglobin of 6.8 this morning. A unit of blood ordered. Will monitor H&H. Nephrology is following for dialysis. 03/08/2021; patient's hemoglobin was 6.8 yesterday and transfused a unit of blood. I ordered yesterday to do posttransfusion H&H and was not done. CBC was ordered to be done this morning but was not done. COVID-19 test was done on 03/06 and positive. Nephrology is following the patient for his dialysis. Plan is to discharge him to SNF. Will follow with case management because patient is Covid positive. 03/09/2021; patient's repeat Covid test on 03/08/2021 was positive. Patient is pending for SNF Placement. Patient had hypoglycemia yesterday and patient was placed on Lantus and his sliding scale adjusted to high dose. Will monitor and adjust as needed. 03/10/2021; pending SNF placement. Covid test was positive on and . 03/11/2021; patient has hepatic encephalopathy and his ammonia level is very high, patient is currently on lactulose and rifaximin. Ammonia level is rafael nding down. Nephrology is following for dialysis. Patient has positive Covid test last one was on 03/08, that makes placement difficult. Continue with case management. 03/12: Still awaiting placement, discussed with nursing staff to monitor mental status changes. Will check ammonia level. Continue to adjust blood sugar. Complicated by COVID POSITIVELY. Awaiting placement for the patient. Also dialysis chair time. I have discussed with case management as my understanding was that patient was to go for hospice but this plan appears to have changed possibly not clear to me at this time 03/13: Continue supportive care crush medications that can be crushed. Ammonia level is elevated but not as elevated as previously. Continue lactulose advised nursing staff that this should be given as ordered to communicate with the night team also. Unfortunately when the patient gets better he refuses his lactulose. I truly believe that we should strongly consider palliative care for this regis ent but nevertheless if he wants to continue dialysis and will be compliant with his medications this is definitely an option can be pursued. Aspiration precautions monitor hemoglobin and platelets. 03/14: Patient seen and examined, more awake today. Continue supportive care, patient was made DNR wade, signed the form today after confirming the patient and also the physician. Monitor for fever. AWAITING PLACEMENT. poor prognosis 03/15/21 Patient is seen and examined. Lab and medication reviewed. Patient denied any chest pain or shortness of breath. Patient is more awake alert today. Patient is getting them hemodialysis today. Continue current management. Awaiting placement. 03/16/21 patient seen and examined. Lab and medication reviewed. Patient feels better. Hemoglobin 8.2 and hematocrit 23.9. Complained of pain in the butt. No other complain. Continue current management and supportive care. Patient is waiting for placement. 03/17: Patient remains with poor prognosis refusing dietary intake. Again discussed hospice and palliative care management considering his current medical condition and declining poor prognostic factors. Discussed with nursing staff darrell son continue with lactulose had refused this morning but did take it yesterday. Continue aspiration precautions. Discussed the importance of taking the medication the patient verbalized underst anding 03/18: Patient undergoing HD discharge planning ongoing discussed with case management team. Covid test ordered today for placement purposes. 03/19/2021; Covid test was ordered and result is pending. Pending placement. 03/20/2021; patient's Covid test was positive again on 03/20/2021. Pending placement. 03/21/2021. Patient cooperative no acute distress at this time. Complains of loose stool diarrhea. Still awaiting placement. Unable to find hemodialysis placement 03/22/2021. Patient last Covid test was positive however initial test was greater than 14 days ago. Patient is no longer infected. Unable to find hemodialysis line at present. Patient being evaluated for [facility]. 03/23/2021. Patient continues to state he feels good much better at this time. Resting comfortably. No distress noted. Still awaiting hemodialysis center. 03/24/2021 patient with flat mood discussed about depression. Resting comfortably watching TV. 03/25/2021. Patient denies depression at this time. Complains of itching all over. When am i getting out of here 03/26/2021. Case management reports patient is still awaiting hemodialysis placement 03/27/2021. Case management reports patient is still awaiting hemodialysis placement. Patient is on maintenance hemodialysis three times a week, MWF schedule. Cont. Lactulose and Rifaximin. Epogen with HD. 03/28/2021. Case management reports patient is still awaiting hemodialysis placement. 03/29/2021. Plan is for the patient to go to [facility] and awaiting on hemodialysis arrangements. [facility] and does not have a bed available. Covid test ordered. We will continue to follow up with case management on discharge planning. 03/30/2021. No new developments. Await hemodialysis placement and potential transfer to [facility]. 03/31/2021. No new developments. Await hemodialysis placement and potential transfer to [facility]. 04/03/2021 [facility]ing [facility] to [facility] facility 04/04/2021 Waiting for transfer to [facility] facility 04/05/2021 Undergoing hemodialysis during making examination Waiting for placement 04/06/2021 Waiting for placement 04/07/2021 Waiting for placement 04/08/2021 Waiting for placement Objective - Constitutional Vitals: Vital Signs - 12hr 04/07/21 04/07/21 04/07/21 21:18 21:45 21:53 Temperature 97.9 F 97.9 F Pulse Rate 85 85 Respiratory 6 L 16 Rate Blood Pressure 121/56 121/56 Blood Pressure 121/56 [Left] O2 Sat by Pulse 98 Oximetry 04/08/21 05:11 Temperature 97.9 F Pulse Rate Respiratory 16 Rate Blood Pressure 145/75 Blood Pressure [Left] O2 Sat by Pulse Oximetry General appearance: Present: no acute distress, well-nourished - EENT Eyes: PERRL, EOM intact ENT: hearing intact, clear oral mucosa Ears: bilateral: normal - Neck Neck: supple, normal ROM - Respiratory Respiratory effort: normal Respiratory: bilateral: CTA - Breasts Breasts: normal - Cardiovascular Heart rate: 78 Rhythm: regular Heart Sounds: Present: S1 & S2. Absent: gallop, rub Extremities: pulses intact, No edema, normal color, Full ROM - Gastrointestinal General gastrointestinal: Present: soft, non-tender, non-distended, normal bowel sounds - Genitourinary Male genitourinary: normal - Integumentary Integumentary: clear, warm, dry - Musculoskeletal Musculoskeletal: 1, strength equal bilaterally - Neurologic Neurologic: moves all extremities - Psychiatric Psychiatric: memory intact, appropriate mood/affect, intact judgment & insight - Labs CBC & Chem 7: 04/05/21 07:46 04/05/21 07:46 Labs: Abnormal lab results 04/07/21 04/07/21 04/07/21 Range/Units 07:50 11:28 16:29 POC Glucose 285 H 238 H 193 H (70-105) mg/dL 04/07/21 Range/Units 22:26 POC Glucose 150 H (70-105) mg/dL
[2021-04-08] MEDS: INSULIN LISPRO 100 UNIT/ML SUB-Q SCH ×4 (07:30→22:19)
[2021-04-08] MEDS: CALCIUM ACETATE 667 MG CAP PO SCH ×3 (09:43→17:00)
[2021-04-08] MEDS: PROPRANOLOL 10 MG TAB PO SCH ×2 (09:45→22:19)
[2021-04-08] MEDS: allopurinoL 100 MG TAB PO SCH (09:46)
[2021-04-08] MEDS: RIFAXIMIN 550 MG TAB PO SCH ×2 (09:47→22:19)
--- NOTE | 2021-04-08 09:47 | Progress Note ---
Assessment and Plan 1. ESRD: Patient is on maintenance hemodialysis three times a week, MWF schedule. Meds dosage based on GFR. Missed HD 02/18. Hemodialysis: 02/19, 02/20, 02/22, 02/25, 02/27, 03/01, 03/04, 03/06, 03/08, 03/11, 03/13, 03/15, 03/18, 03/20, 03/22, 03/25, 03/27, 03/29, 04/01, 04/03, 04/05. 2. FEN: Monitor lytes and volume status. 3. Anemia, POA: 2/2 ESRD and Liver disease. Epogen with HD. IV Iron 125 mg 04/05. PRBC as needed. 4. Cirrhosis with h/o hepatic encephalopathy: Lactulose and Rifaximin. Monitor. 5. DM type 2: SSI. Monitor. 6. Thrombocytopenia, POA. 7. Hypotension: BP is better now. Await placement. Subjective: Patient was seen and examined at the bedside. General Appearance: General appearance: well-developed, appears stated age, not in distress HEENT: ATNC, pupils equal Neck: trachea midline Respiratory: ctab Heart: regular, S1S2, no murmur Abdomen: soft, bowel sounds heard, slightly distended, not tender Integumentary: no rash, warm and dry Neurologic: lethargic, answering few questions Ext: no edema, R BKA Hemodialysis access: R arm AVF Subjective Date of service: 04/08/21 Principal diagnosis: Acute encephalopathy Objective - Vital Signs Vital signs: Vital Signs - 12hr 04/07/21 04/08/21 21:53 05:11 Temperature 97.9 F Pulse Rate 85 Respiratory 16 Rate Blood Pressure 121/56 145/75 - Lab 04/05/21 07:46 04/05/21 07:46 Most recent lab results Calcium 8.9 mg/dL (8.4-10.2) 04/05/21 07:46 Phosphorus 3.40 mg/dL (2.5-4.5) 04/03/21 07:30 Magnesium 2.10 mg/dL (1.7-2.3) 02/17/21 02:24 Medications & Allergies - Medications Allergies/Adverse Reactions: Allergies No Known Allergies Allergy (Verified 02/16/21 18:26) Home Medications: Home Medications Medication Instructions Recorded Confirmed Last Taken Type Calcium Acetate [Phoslo] 1,334 mg PO TIDWM #90 capsule 03/01/21 Unknown Rx Famotidine [Pepcid] 20 mg PO QAM #30 tablet 03/01/21 Unknown Rx Lactulose [Cephulac] 20 gm PO Q8HR 30 Days 03/01/21 Unknown Rx Lispro Insulin [HumaLOG] See Protocol SQ ACHS 30 Days 03/01/21 Unknown Rx allopurinoL [Zyloprim] 100 mg PO QDAY #30 tablet 03/01/21 Unknown Rx propranoloL [Inderal] 20 mg PO BID #60 tablet 03/01/21 Unknown Rx Active Medications: Generic Name Dose Route Start Last Admin Trade Name Freq PRN Reason Stop Dose Admin Acetaminophen 650 mg 02/18/21 22:38 03/09/21 13:15 Acetaminophen 325 Mg Tab PO 650 mg Q4H PRN Administration Pain MILD(1-3)/Fever >100.5/MOLINA Albuterol 2.5 mg 02/18/21 22:38 Albuterol 2.5 Mg/3 Ml Nebu IH Q3HRT PRN Shortness Of Breath Allopurinol 100 mg 02/20/21 10:00 04/07/21 08:59 Allopurinol 100 Mg Tab PO 100 mg QDAY LEYLA Administration Calcium Acetate 1,334 mg 02/20/21 08:30 04/07/21 17:29 Calcium Acetate 667 Mg Cap PO 1,334 mg TIDWM LEYLA Administration Dextrose 50 ml 03/29/21 12:00 Dextrose 50% In Water (25gm) 50 Ml Syringe IV Q30MIN PRN HYPOGLYCEMIA Protocol Diphenhydramine HCl 25 mg 02/23/21 09:10 03/24/21 09:01 Diphenhydramine 25 Mg Cap PO 25 mg BID PRN Administration Itching Famotidine 20 mg 02/19/21 10:00 04/07/21 08:59 Famotidine 20 Mg Tab PO 20 mg QAM LEYLA Administration Hydralazine HCl 10 mg 02/18/21 22:56 Hydralazine 20 Mg/1 Ml Inj IV Q6H PRN htn Hydroxyzine HCl 25 mg 03/24/21 10:38 Hydroxyzine Hcl 25 Mg Tab PO Q6H PRN Itching Sodium Chloride 100 mls @ 999 mls/hr 02/19/21 09:06 Nacl 0.9% IV OLIVIA PRN Hypotension Insulin Glargine 16 units 03/23/21 09:00 04/07/21 21:52 Insulin Glargine 100 Units/Ml SUB-Q 16 units QHS LEYLA Administration Insulin Human Lispro 0 unit 03/09/21 22:00 04/07/21 22:54 Insulin Lispro 100 Unit/Ml SUB-Q Not Given ACHS [facility] Protocol Lactulose 20 gm 03/09/21 18:00 04/08/21 06:02 Lactulose 20 Gm/30 Ml Oral Liqd PO 20 gm Q6HR LEYLA Administration Ondansetron HCl 4 mg 02/18/21 22:38 02/28/21 12:32 Ondansetron 4 Mg/2 Ml Inj IV 4 mg Q8H PRN Administration Nausea And Vomiting Polyethylene Glycol 17 gm 02/24/21 12:08 02/24/21 12:47 Polyethylene Glycol 3350 17 Gm Powder PO 17 gm QDAY PRN Administration Constipation Propranolol HCl 20 mg 02/20/21 10:00 04/07/21 21:53 Propranolol 10 Mg Tab PO 20 mg BID LEYLA Administration Rifaximin 550 mg 03/10/21 12:00 04/07/21 21:53 Rifaximin 550 Mg Tab PO 550 mg BID LEYLA Administration Sodium Chloride 10 ml 02/19/21 10:00 04/07/21 21:54 Sodium Chloride 0.9% 10 Ml Flush Syringe IV 10 ml BID LEYLA Administration Sodium Chloride 10 ml 02/18/21 22:38 Sodium Chloride 0.9% 10 Ml Flush Syringe IV PRN PRN LINE FLUSH Zolpidem Tartrate 5 mg 02/24/21 09:54 03/08/21 23:25 Zolpidem 5 Mg Tab PO 5 mg QHS PRN Administration Sleep
[2021-04-08] MEDS: FAMOTIDINE 20 MG TAB PO SCH (09:53)
[2021-04-08] MEDS: INSULIN GLARGINE 100 UNITS/ML SUB-Q SCH (22:19)
[2021-04-09] MEDS: LACTULOSE 20 GM/30 ML ORAL LIQD PO SCH ×4 (05:43→23:11)
[2021-04-09] MEDS: INSULIN LISPRO 100 UNIT/ML SUB-Q SCH ×4 (08:20→22:07)
--- NOTE | 2021-04-09 08:54 | Progress Note ---
Assessment and Plan 1. ESRD: Patient is on maintenance hemodialysis three times a week, MWF schedule. Meds dosage based on GFR. Missed HD 02/18. Hemodialysis: 02/19, 02/20, 02/22, 02/25, 02/27, 03/01, 03/04, 03/06, 03/08, 03/11, 03/13, 03/15, 03/18, 03/20, 03/22, 03/25, 03/27, 03/29, 04/01, 04/03, 04/05, 04/08. 2. FEN: Monitor lytes and volume status. 3. Anemia, POA: 2/2 ESRD and Liver disease. Epogen with HD. IV Iron 125 mg 04/05. PRBC as needed. 4. Cirrhosis with h/o hepatic encephalopathy: Lactulose and Rifaximin. Monitor. 5. DM type 2: SSI. Monitor. 6. Thrombocytopenia, POA. 7. Hypotension: BP is better now. Await placement. Subjective: Patient was seen and examined at the bedside. General Appearance: General appearance: well-developed, appears stated age, not in distress HEENT: ATNC, pupils equal Neck: trachea midline Respiratory: ctab Heart: regular, S1S2, no murmur Abdomen: soft, bowel sounds heard, slightly distended, not tender Integumentary: no rash, warm and dry Neurologic: alert, answering few questions Ext: no edema, R BKA Hemodialysis access: R arm AVF Subjective Date of service: 04/09/21 Principal diagnosis: Acute encephalopathy Objective - Vital Signs Vital signs: Vital Signs - 12hr 04/08/21 04/09/21 21:18 04:59 Temperature 97.4 F L 97.9 F Respiratory 16 16 Rate Blood Pressure 142/68 146/67 - Lab 04/05/21 07:46 04/05/21 07:46 Most recent lab results Calcium 8.9 mg/dL (8.4-10.2) 04/05/21 07:46 Phosphorus 3.40 mg/dL (2.5-4.5) 04/03/21 07:30 Magnesium 2.10 mg/dL (1.7-2.3) 02/17/21 02:24 Medications & Allergies - Medications Allergies/Adverse Reactions: Allergies No Known Allergies Allergy (Verified 02/16/21 18:26) Home Medications: Home Medications Medication Instructions Recorded Confirmed Last Taken Type Calcium Acetate [Phoslo] 1,334 mg PO TIDWM #90 capsule 03/01/21 Unknown Rx Famotidine [Pepcid] 20 mg PO QAM #30 tablet 03/01/21 Unknown Rx Lactulose [Cephulac] 20 gm PO Q8HR 30 Days 03/01/21 Unknown Rx Lispro Insulin [HumaLOG] See Protocol SQ ACHS 30 Days 03/01/21 Unknown Rx allopurinoL [Zyloprim] 100 mg PO QDAY #30 tablet 03/01/21 Unknown Rx propranoloL [Inderal] 20 mg PO BID #60 tablet 03/01/21 Unknown Rx Active Medications: Generic Name Dose Route Start Last Admin Trade Name Freq PRN Reason Stop Dose Admin Acetaminophen 650 mg 02/18/21 22:38 03/09/21 13:15 Acetaminophen 325 Mg Tab PO 650 mg Q4H PRN Administration Pain MILD(1-3)/Fever >100.5/MOLINA Albuterol 2.5 mg 02/18/21 22:38 Albuterol 2.5 Mg/3 Ml Nebu IH Q3HRT PRN Shortness Of Breath Allopurinol 100 mg 02/20/21 10:00 04/08/21 09:46 Allopurinol 100 Mg Tab PO 100 mg QDAY LEYLA Administration Calcium Acetate 1,334 mg 02/20/21 08:30 04/08/21 17:00 Calcium Acetate 667 Mg Cap PO Not Given TIDWM LEYLA Dextrose 50 ml 03/29/21 12:00 Dextrose 50% In Water (25gm) 50 Ml Syringe IV Q30MIN PRN HYPOGLYCEMIA Protocol Diphenhydramine HCl 25 mg 02/23/21 09:10 03/24/21 09:01 Diphenhydramine 25 Mg Cap PO 25 mg BID PRN Administration Itching Famotidine 20 mg 02/19/21 10:00 04/08/21 09:53 Famotidine 20 Mg Tab PO 20 mg QAM LEYLA Administration Hydralazine HCl 10 mg 02/18/21 22:56 Hydralazine 20 Mg/1 Ml Inj IV Q6H PRN htn Hydroxyzine HCl 25 mg 03/24/21 10:38 Hydroxyzine Hcl 25 Mg Tab PO Q6H PRN Itching Sodium Chloride 100 mls @ 999 mls/hr 02/19/21 09:06 Nacl 0.9% IV OLIVIA PRN Hypotension Insulin Glargine 16 units 03/23/21 09:00 04/08/21 22:19 Insulin Glargine 100 Units/Ml SUB-Q 16 units QHS LEYLA Administration Insulin Human Lispro 0 unit 03/09/21 22:00 04/09/21 08:20 Insulin Lispro 100 Unit/Ml SUB-Q Not Given ACHS [facility] Protocol Lactulose 20 gm 03/09/21 18:00 04/09/21 05:43 Lactulose 20 Gm/30 Ml Oral Liqd PO 20 gm Q6HR LEYLA Administration Ondansetron HCl 4 mg 02/18/21 22:38 02/28/21 12:32 Ondansetron 4 Mg/2 Ml Inj IV 4 mg Q8H PRN Administration Nausea And Vomiting Polyethylene Glycol 17 gm 02/24/21 12:08 02/24/21 12:47 Polyethylene Glycol 3350 17 Gm Powder PO 17 gm QDAY PRN Administration Constipation Propranolol HCl 20 mg 02/20/21 10:00 04/08/21 22:19 Propranolol 10 Mg Tab PO 20 mg BID LEYLA Administration Rifaximin 550 mg 03/10/21 12:00 04/08/21 22:19 Rifaximin 550 Mg Tab PO 550 mg BID LEYLA Administration Sodium Chloride 10 ml 02/19/21 10:00 04/08/21 23:49 Sodium Chloride 0.9% 10 Ml Flush Syringe IV Not Given BID LEYLA Sodium Chloride 10 ml 02/18/21 22:38 Sodium Chloride 0.9% 10 Ml Flush Syringe IV PRN PRN LINE FLUSH Zolpidem Tartrate 5 mg 02/24/21 09:54 03/08/21 23:25 Zolpidem 5 Mg Tab PO 5 mg QHS PRN Administration Sleep
[2021-04-09] MEDS: CALCIUM ACETATE 667 MG CAP PO SCH ×3 (09:03→16:56)
[2021-04-09] MEDS: PROPRANOLOL 10 MG TAB PO SCH ×2 (11:46→22:07)
[2021-04-09] MEDS: RIFAXIMIN 550 MG TAB PO SCH ×2 (11:47→22:08)
[2021-04-09] MEDS: FAMOTIDINE 20 MG TAB PO SCH (11:47)
[2021-04-09] MEDS: allopurinoL 100 MG TAB PO SCH (11:49)
--- NOTE | 2021-04-09 13:47 | Progress Note ---
Assessment and Plan Assessment and plan: 55 YO Male with ESRD on HD, Noncompliance with outpatient dialysis, Anemia, HBV, Chronic Liver Disease, Cirrhosis complicated by Esophageal Varices, HTN, Debility, DM presents to ED with confusion with diminished cognition. Patient family report the patient was "not acting like himself" and found to have worsening confusion over the past 2 days. In the ER the patient was found to have hepatic encephalopathy complicated by diminished cognition, end-stage renal disease in need of urgent dialysis, as well as uncontrolled diabetes, and acidosis. Nephrology team consulted in ED and patient was then admitted for further evaluation and Mx. A/p -- Hepatic encephalopathy due to hepatic cirrhosis cont lactulose, Neuro check, seizure precaution, aspiration precaution, fall precautions, continue to monitor. -- End stage renal disease Nephrology team consulted, strict I's/O, monitor urine output every shift, dialysis as per renal team, avoid nephrotoxic agents. --Metabolic Acidosis Nephrology team consulted, dialysis as per renal team. --Hyponatremia Monitor BMP, monitor fluid balance. -- Hyperammonemia Continue lactulose --Diabetes mellitus with hyperglycemia Consistent carb diet, SSI -- hyperkalemia, Improvement with dialysis --Ascitis, s/p paracentesis drained 6.2l of ascitic fluid --Sacral wound, cont wound care -- Moderate Protein Calorie Malnutrition, nutrition consulted --Noncompliance, counseled for medication compliance --DVT Px, SCD --DNR code status --Disposition: needs placement, CM waiting for placement -- Hepatic encephalopathy -Patient alert and oriented x3. due to hepatic cirrhosis has resolved cont lactulose, Neuro check, seizure precaution, aspiration precaution, fall precautions, continue to monitor. -Diarrhea resolved was secondary to lactulose. Patient is alert no encephalopathy. -- End stage renal disease Nephrology team consulted, strict I's/O, monitor urine output every shift, dialysis as per renal team, avoid nephrotoxic agents. Await dialysis center. Still no dialysis center. We will dialyze as indicated. --Metabolic Acidosis Nephrology team consulted, dialysis as per renal team. --Hyponatremia Monitor BMP, monitor fluid balance.-Does not require to be checked today we will check every other day now. -- Hyperammonemia Continue lactulose --Pruritus Add Atarax most likely secondary to liver failure --Diabetes mellitus with hyperglycemia Consistent carb diet, SSI -- hyperkalemia, Improvement with dialysis --Ascites, s/p paracentesis drained 6.2l of ascitic fluid -no further ascites at this time. --Sacral wound, pain control continue local wound care. -- Moderate Protein Calorie Malnutrition, nutrition consulted --Noncompliance, counseled for medication compliance --Depression discussed about depression and initiation of Zoloft [facility] 02/19: Resume dialysis will adjust insulin for better coverage. Very poor prognosis considering poor medical compliance. Agree with hospice recommendation. Will obtain wound care to continue to manage. Monitor anemia as patient was pretty anemic during the last hospitalization. Required transfusion. 02/20: Continues to undergo dialysis no change in mental status noted. Tolerating medications. Blood sugar mildly elevated adjusted insulin yesterday when awake for the patient received a dose today and if still elevated will adjust. Again case management is working on discharge plan for this patient as he is pending placement 02/21 patient complains of right hip pain. He said he fell few weeks ago and is concerned about another fracture. He had a fracture about 8 weeks ago and had surgery. Will obtain X ray right hip. Patient pending placement. 02/22 Patient seen in Dialysis Unit. He states hip pain improved. No other complaints. Right hip X ray done yesterday report read may be healing fracture or acute fracture. Will discuss with Orthopedic Surgeon Patient pending placement 02/23 Less hip pain. Today complains of generalized itching. Will start Benadryl po prn. Orthopedic consulted to evaluate right hip. Patient pending placement 02/24 Less hip pain. Generalized itching now resolved. Orthopedic consulted to evaluate right hip. He complains of sleeplessness. Will give Ambien prn Patient pending placement 02/25 Patient requested DNR status yesterday. I discussed with him and he signed forms. He also complains of worsening abdominal distension and requested tapping, Will order paracentesis. Right hip evaluated by Dr. Trivedi and conservative management recommended. 02/26: Plan for paracentesis today. Need to set up dialysis as outpatient. retail office manager working on discharge planning. 02/27: Patient did not sign the consent for paracentesis yesterday so paracentesis was done today and aspirated 6.2L ascitic fluid. Patient refusing medication per RN. Getting dialysis. Patient noted slightly altered today, will place NG tube remains altered and keep refusing oral meds, order for ammonia level and will cont lactulose. 02/28: Patient appears much more calm and cooperative today. He stated that he has been refusing procedure and medication as he believes he was not in the right state of his mind. Patient acknowledges the importance of being compliant and he promises that he will take the medications as he will be given. Discharge planning per case management as patient would need outpatient dialysis center set up and personal senior care set up. 03/01/21: Patient has longterm setting but according to case supervisor no available RN to accept the patient till Thursday. Continue supportive care. Discharge pending on placement. 03/02/21 -03/04/21: Discharge pending on placement, continue to monitor clinically. Continue current management and plan and supportive care. Patient need SNF placement. 03/05/2021; Awaiting SNF placement for discharge. Prognosis is very poor. Patient is nonresponsive. I try to reach to his son over the phone but could not get in touch. Patient is appropriate for hospice care. 03/06/2021; patient is awaiting SNF placement. Patient was alert and oriented. No confusion. Patient is stable to be discharged back to SNF. 03/07/2021; patient has hemoglobin of 6.8 this morning. A unit of blood ordered. Will monitor H&H. Nephrology is following for dialysis. 03/08/2021; patient's hemoglobin was 6.8 yesterday and transfused a unit of blood. I ordered yesterday to do posttransfusion H&H and was not done. CBC was ordered to be done this morning but was not done. COVID-19 test was done on 03/06 and positive. Nephrology is following the patient for his dialysis. Plan is to discharge him to SNF. Will follow with case management because patient is Covid positive. 03/09/2021; patient's repeat Covid test on 03/08/2021 was positive. Patient is pending for SNF Placement. Patient had hypoglycemia yesterday and patient was placed on Lantus and his sliding scale adjusted to high dose. Will monitor and adjust as needed. 03/10/2021; pending SNF placement. Covid test was positive on and . 03/11/2021; patient has hepatic encephalopathy and his ammonia level is very high, patient is currently on lactulose and rifaximin. Ammonia level is trending down. Nephrology is following for dialysis. Patient has positive C ovid test last one was on 03/08, that makes placement difficult. Continue with case management. 03/12: Still awaiting placement, discussed with nursing staff to monitor mental status changes. Will check ammonia level. Continue to adjust blood sugar. Complicated by COVID POSITIVELY. Awaiting placement for the patient. Also dialysis chair time. I have discussed with case management as my understanding was that patient was to go for hospice but this plan appears to have changed possibly not clear to me at this time 03/13: Continue supportive care crush medications that can be crushed. Ammonia level is elevated but not as elevated as previously. Continue lactulose advised nursing staff that this should be given as ordered to communicate with the night team also. Unfortunately when the patient gets better he refuses his lactulose. I truly believe that we should strongly consider palliative care for this patient but nevertheless if he wants to continue dialysis and will be compliant with his medications this is definitely an option can be pursued. Aspiration precautions monitor hemoglobin and platelets. 03/14: Patient seen and examined, more awake today. Continue supportive care, patient was made DNR wade, signed the form today after confirming the patient and also the physician. Monitor for fever. AWAITING PLACEMENT. poor prognosis 03/15/21 Patient is seen and examined. Lab and medication reviewed. Patient denied any chest pain or shortness of breath. Patient is more awake alert today. Patient is getting them hemodialysis today. Continue current management. Awaiting placement. 03/16/21 patient seen and examined. Lab and medication reviewed. Patient feels better. Hemoglobin 8.2 and hematocrit 23.9. Complained of pain in the butt. No other complain. Continue current management and supportive care. Patient is waiting for placement. 03/17: Patient remains with poor prognosis refusing dietary intake. Again discussed hospice and palliative care management considering his current medical condition and declining poor prognostic factors. Discussed with nursing staff patient will continue with lactulose had refused this morning but did take it yesterday. Continue aspiration precautions. Discussed the importance of taking the medication the patient verbalized understanding 03/18: Patient undergoing HD discharge planning ongoing discussed with case management team. Covid test ordered today for placement purposes. 03/19/2021; Covid test was ordered and result is pending. Pending placement. 03/20/2021; patient's Covid test was positive again on 03/20/2021. Pending placement. 03/21/2021. Patient cooperative no acute distress at this time. Complains of loose stool diarrhea. Still awaiting placement. Unable to find hemodialysis placement 03/22/2021. Patient last Covid test was positive however initial test was greater than 14 days ago. Patient is no longer infected. Unable to find hemodialysis line at present. Patient being evaluated for [facility]. 03/23/2021. Patient continues to state he feels good much better at this time. Resting comfortably. No distress noted. Still awaiting hemodialysis center. 03/24/2021 patient with flat mood discussed about depression. Resting comfortably watching TV. 03/25/2021. Patient denies depression at this time. Complains of itching all over. When am i getting out of here 03/26/2021. Case management reports patient is still awaiting hemodialysis placement 03/27/2021. Case management reports patient is still awaiting hemodialysis placement. Patient is on maintenance hemodialysis three times a week, MWF schedule. Cont. Lactulose and Rifaximin. Epogen with HD. 03/28/2021. Case management reports patient is still awaiting hemodialysis placement. 03/29/2021. Plan is for the patient to go to [facility] and awaiting on hemodialysis arrangements. [facility] and does not have a bed available. Covid test ordered. We will continue to follow up with case management on discharge planning. 03/30/2021. No new developments. Await hemodialysis placement and potential transfer to [facility]. 03/31/2021. No new developments. Await hemodialysis placement and potential transfer to [facility]. 04/03/2021 [facility] to [facility] 04/04/2021 Waiting for transfer to [facility] facility 04/05/2021 Undergoing hemodialysis during making examination Waiting for placement 04/06/2021 Waiting for placement 04/07/2021 Waiting for placement 04/08/2021 Waiting for placement 04/09: Patient seen and examined a little bit lethargic otherwise no new changes. hatch tender.. Awaiting placement noted thrombocytopenia continue to monitor. Discussed with case management and Nursing staff. History Interval history: Patient seen and examined no acute distress. Awake following commands, lethargic. Hospitalist Physical - Physical exam Narrative exam: VITAL SIGNS: Reviewed. GENERAL: The patient appears normally developed, awake lying down in a semiprone position pale, vital signs as documented. HEAD: No signs of head trauma. EYES: Pupils are equal. Extraocular motions intact. Icteric sclera-Jaundice EARS: Hearing grossly intact. MOUTH: Oropharynx is normal. NECK: No adenopathy, no JVD. CHEST: Chest with diminished breath sounds bilaterally. No wheezes, rales, or rhonchi. CARDIAC: Regular rate and rhythm. S1 and S2, without murmurs, gallops, or rubs. VASCULAR: No Edema. Peripheral pulses normal and equal in all extremities. ABDOMEN: Soft, non tender and non distended. No rebound or guarding, and no masses palpated. Bowel Sounds normal. MUSCULOSKELETAL: Right BKA extremities without clubbing, cyanosis or edema. NEUROLOGIC EXAM: Lethargic and stuporous. No focal sensory or strength deficits. PSYCHIATRIC: Unable to clearly examine SKIN: Jaundice detail exam as documented in skin assessment - Constitutional Vitals: Temp Pulse Resp BP Pulse Ox 99.0 F 83 20 135/59 100 04/09/21 11:10 04/09/21 11:46 04/09/21 11:10 04/09/21 11:46 04/09/21 11:10 General appearance: Present: no acute distress, well-nourished Results - Labs CBC & Chem 7: 04/05/21 07:46 04/05/21 07:46 Labs: Laboratory Last Values WBC 3.6 K/mm3 (4.5-11.0) L 04/05/21 07:46 RBC 2.33 M/mm3 (3.65-5.03) L 04/05/21 07:46 Hgb 7.2 gm/dl (11.8-15.2) L 04/05/21 07:46 Hct 21.5 % (35.5-45.6) L 04/05/21 07:46 MCV 92 fl (84-94) 04/05/21 07:46 MCH 31 pg (28-32) 04/05/21 07:46 MCHC 33 % (32-34) 04/05/21 07:46 RDW 18.2 % (13.2-15.2) H 04/05/21 07:46 Plt Count 72 K/mm3 (140-440) L 04/05/21 07:46 Lymph % (Auto) 18.6 % (13.4-35.0) 04/05/21 07:46 Granite % (Auto) 12.6 % (0.0-7.3) H 04/05/21 07:46 Eos % (Auto) 3.4 % (0.0-4.3) 04/05/21 07:46 Baso % (Auto) 1.0 % (0.0-1.8) 04/05/21 07:46 Lymph # (Auto) 0.7 K/mm3 (1.2-5.4) L 04/05/21 07:46 Granite # (Auto) 0.5 K/mm3 (0.0-0.8) 04/05/21 07:46 Eos # (Auto) 0.1 K/mm3 (0.0-0.4) 04/05/21 07:46 Baso # (Auto) 0.0 K/mm3 (0.0-0.1) 04/05/21 07:46 Add Manual Diff Complete 03/07/21 05:23 Total Counted 100 03/07/21 05:23 Seg Neutrophils % 64.4 % (40.0-70.0) 04/05/21 07:46 Seg Neuts % (Manual) 78.0 % (40.0-70.0) H 03/07/21 05:23 Lymphocytes % (Manual) 13.0 % (13.4-35.0) L 03/07/21 05:23 Monocytes % (Manual) 9.0 % (0.0-7.3) H 03/07/21 05:23 Nucleated RBC % Not Reportable 03/07/21 05:23 Seg Neutrophils # 2.3 K/mm3 (1.8-7.7) 04/05/21 07:46 Seg Neutrophils # Man 2.0 K/mm3 (1.8-7.7) 03/07/21 05:23 Band Neutrophils # 0.0 K/mm3 03/07/21 05:23 Lymphocytes # (Manual) 0.3 K/mm3 (1.2-5.4) L 03/07/21 05:23 Abs React Lymphs (Man) 0.0 K/mm3 03/07/21 05:23 Monocytes # (Manual) 0.2 K/mm3 (0.0-0.8) 03/07/21 05:23 Eosinophils # (Manual) 0.0 K/mm3 (0.0-0.4) 03/07/21 05:23 Basophils # (Manual) 0.0 K/mm3 (0.0-0.1) 03/07/21 05:23 Metamyelocytes # 0.0 K/mm3 03/07/21 05:23 Myelocytes # 0.0 K/mm3 03/07/21 05:23 Promyelocytes # 0.0 K/mm3 03/07/21 05:23 Blast Cells # 0.0 K/mm3 03/07/21 05:23 WBC Morphology Not Reportable 03/07/21 05:23 Hypersegmented Neuts Not Reportable 03/07/21 05:23 Hyposegmented Neuts Not Reportable 03/07/21 05:23 Hypogranular Neuts Not Reportable 03/07/21 05:23 Smudge Cells Not Reportable 03/07/21 05:23 Toxic Granulation Not Reportable 03/07/21 05:23 Toxic Vacuolation Not Reportable 03/07/21 05:23 Dohle Bodies Not Reportable 03/07/21 05:23 Pelger-Huet Anomaly Not Reportable 03/07/21 05:23 Cosme Rods Not Reportable 03/07/21 05:23 Platelet Estimate Consistent w auto 03/07/21 05:23 Clumped Platelets Not Reportable 03/07/21 05:23 Plt Clumps, EDTA Not Reportable 03/07/21 05:23 Large Platelets Not Reportable 03/07/21 05:23 Giant Platelets Not Reportable 03/07/21 05:23 Platelet Satelliting Not Reportable 03/07/21 05:23 Plt Morphology Comment Not Reportable 03/07/21 05:23 RBC Morphology Not Reportable 03/07/21 05:23 Dimorphic RBCs Not Reportable 03/07/21 05:23 Polychromasia Not Reportable 03/07/21 05:23 Hypochromasia Not Reportable 03/07/21 05:23 Poikilocytosis Not Reportable 03/07/21 05:23 Anisocytosis Few 03/07/21 05:23 Microcytosis Not Reportable 03/07/21 05:23 Macrocytosis Not Reportable 03/07/21 05:23 Spherocytes Not Reportable 03/07/21 05:23 Pappenheimer Bodies Not Reportable 03/07/21 05:23 Sickle Cells Not Reportable 03/07/21 05:23 Target Cells Not Reportable 03/07/21 05:23 Tear Drop Cells Not Reportable 03/07/21 05:23 Ovalocytes Not Reportable 03/07/21 05:23 Helmet Cells Not Reportable 03/07/21 05:23 [place] Bodies Not Reportable 03/07/21 05:23 [place] Rings Not Reportable 03/07/21 05:23 [place] Cells Not Reportable 03/07/21 05:23 Bite Cells Not Reportable 03/07/21 05:23 Crenated Cell Not Reportable 03/07/21 05:23 Elliptocytes Not Reportable 03/07/21 05:23 Acanthocytes (Spur) Not Reportable 03/07/21 05:23 Rouleaux Not Reportable 03/07/21 05:23 Hemoglobin C Crystals Not Reportable 03/07/21 05:23 Schistocytes Not Reportable 03/07/21 05:23 Malaria parasites Not Reportable 03/07/21 05:23 Samir Bodies Not Reportable 03/07/21 05:23 Hem Pathologist Commnt No 03/07/21 05:23 PT 13.7 Sec. (12.2-14.9) 02/26/21 04:33 INR 1.00 (0.87-1.13) 02/26/21 04:33 Sodium 140 mmol/L (137-145) 04/05/21 07:46 Potassium 4.3 mmol/L (3.6-5.0) 04/05/21 07:46 Chloride 100.3 mmol/L (98-107) 04/05/21 07:46 Carbon Dioxide 30 mmol/L (22-30) 04/05/21 07:46 Anion Gap 14 mmol/L 04/05/21 07:46 BUN 60 mg/dL (9-20) H 04/05/21 07:46 Creatinine 6.5 mg/dL (0.8-1.3) H 04/05/21 07:46 Estimated GFR 9 ml/min 04/05/21 07:46 BUN/Creatinine Ratio 9 % 04/05/21 07:46 Glucose 217 mg/dL (75-100) H 04/05/21 07:46 POC Glucose 239 mg/dL (70-105) H 04/09/21 11:11 Hemoglobin A1c 7.4 % (4-6) H 02/26/21 04:33 Calcium 8.9 mg/dL (8.4-10.2) 04/05/21 07:46 Phosphorus 3.40 mg/dL (2.5-4.5) 04/03/21 07:30 Magnesium 2.10 mg/dL (1.7-2.3) 02/17/21 02:24 Iron 52 ug/dL (49-181) 03/30/21 05:11 TIBC 203 mcg/dL (250-450) L 03/30/21 05:11 Ferritin 70.9 ng/mL (30.0-300.0) 03/30/21 05:11 Total Bilirubin 0.60 mg/dL (0.1-1.2) 04/05/21 07:46 Direct Bilirubin 0.3 mg/dL (0-0.2) H 03/14/21 07:24 Indirect Bilirubin 0.3 mg/dL 03/14/21 07:24 AST 34 units/L (5-40) 04/05/21 07:46 ALT 23 units/L (7-56) 04/05/21 07:46 Alkaline Phosphatase 183 units/L (35-129) H 04/05/21 07:46 Ammonia 68.0 umol/L (25-60) H 04/05/21 07:46 Total Creatine Kinase 86 units/L (55-170) 02/17/21 02:24 Total Protein 5.8 g/dL (6.3-8.2) L 04/05/21 07:46 Albumin 2.5 g/dL (3.9-5) L 04/05/21 07:46 Albumin/Globulin Ratio 0.8 % 04/05/21 07:46 Vitamin B12 1583 pg/mL (211-911) H 03/30/21 05:11 Folate 10.11 ng/mL (7.3-26.0) 03/30/21 05:11 TSH 0.986 mlU/mL (0.270-4.200) 02/17/21 02:24 Urine Color Yellow (Yellow) 02/17/21 Unknown Urine Turbidity Clear (Clear) 02/17/21 Unknown Urine pH 6.0 (5.0-7.0) 02/17/21 Unknown Ur Specific [place] 1.012 (1.003-1.030) 02/17/21 Unknown Urine Protein 100 mg/dl mg/dL (Negative) 02/17/21 Unknown Urine Glucose (UA) >=500 mg/dL (Negative) 02/17/21 Unknown Urine Ketones Neg mg/dL (Negative) 02/17/21 Unknown Urine Blood Neg (Negative) 02/17/21 Unknown Urine Nitrite Neg (Negative) 02/17/21 Unknown Urine Bilirubin Neg (Negative) 02/17/21 Unknown Urine Urobilinogen < 2.0 mg/dL (<2.0) 02/17/21 Unknown Ur Leukocyte Esterase Neg (Negative) 02/17/21 Unknown Urine WBC (Auto) 2.0 /HPF (0.0-6.0) 02/17/21 Unknown Urine RBC (Auto) 2.0 /HPF (0.0-6.0) 02/17/21 Unknown U Epithel Cells (Auto) < 1.0 /HPF (0-13.0) 02/17/21 Unknown Urine Bacteria (Auto) 1+ /HPF (Negative) 02/17/21 Unknown Salicylates < 0.3 mg/dL (2.8-20.0) L 02/17/21 02:24 Acetaminophen 5.0 ug/mL (10.0-30.0) L 02/17/21 02:24 Coronavirus (PCR) Positive (Negative) A 04/03/21 Unknown Hepatitis A IgM Ab Non-reactive (NonReactive) 02/28/21 12:37 Hep Bs Antigen Non-reactive (Negative) 03/28/21 18:57 Hep B Core IgM Ab Non-reactive (NonReactive) 02/28/21 12:37 Hepatitis C Antibody Non-reactive (NonReactive) 02/28/21 12:37 Blood Type A POSITIVE 03/07/21 06:31 Antibody Screen Negative 03/07/21 06:31 Crossmatch See Detail 03/07/21 06:31 Sr/IV: Voiding Method Incontinent Active Medications - Current Medications Current Medications: Generic Name Dose Route Start Last Admin Trade Name Freq PRN Reason Stop Dose Admin Acetaminophen 650 mg 02/18/21 22:38 03/09/21 13:15 Acetaminophen 325 Mg Tab PO 650 mg Q4H PRN Administration Pain MILD(1-3)/Fever >100.5/MOLNIA Albuterol 2.5 mg 02/18/21 22:38 Albuterol 2.5 Mg/3 Ml Nebu IH Q3HRT PRN Shortness Of Breath Allopurinol 100 mg 02/20/21 10:00 04/09/21 11:49 Allopurinol 100 Mg Tab PO 100 mg QDAY LEYLA Administration Calcium Acetate 1,334 mg 02/20/21 08:30 04/09/21 11:46 Calcium Acetate 667 Mg Cap PO 1,334 mg TIDWM LEYLA Administration Dextrose 50 ml 03/29/21 12:00 Dextrose 50% In Water (25gm) 50 Ml Syringe IV Q30MIN PRN HYPOGLYCEMIA Protocol Diphenhydramine HCl 25 mg 02/23/21 09:10 03/24/21 09:01 Diphenhydramine 25 Mg Cap PO 25 mg BID PRN Administration Itching Famotidine 20 mg 02/19/21 10:00 04/09/21 11:47 Famotidine 20 Mg Tab PO 20 mg QAM LEYLA Administration Hydralazine HCl 10 mg 02/18/21 22:56 Hydralazine 20 Mg/1 Ml Inj IV Q6H PRN htn Hydroxyzine HCl 25 mg 03/24/21 10:38 Hydroxyzine Hcl 25 Mg Tab PO Q6H PRN Itching Sodium Chloride 100 mls @ 999 mls/hr 02/19/21 09:06 Nacl 0.9% IV OLIVIA PRN Hypotension Insulin Glargine 16 units 03/23/21 09:00 04/08/21 22:19 Insulin Glargine 100 Units/Ml SUB-Q 16 units QHS LEYLA Administration Insulin Human Lispro 0 unit 03/09/21 22:00 04/09/21 11:54 Insulin Lispro 100 Unit/Ml SUB-Q 4 unit ACHS LEYLA Administration Protocol Lactulose 20 gm 03/09/21 18:00 04/09/21 11:45 Lactulose 20 Gm/30 Ml Oral Liqd PO 20 gm Q6HR LEYLA Administration Ondansetron HCl 4 mg 02/18/21 22:38 02/28/21 12:32 Ondansetron 4 Mg/2 Ml Inj IV 4 mg Q8H PRN Administration Nausea And Vomiting Polyethylene Glycol 17 gm 02/24/21 12:08 02/24/21 12:47 Polyethylene Glycol 3350 17 Gm Powder PO 17 gm QDAY PRN Administration Constipation Propranolol HCl 20 mg 02/20/21 10:00 04/09/21 11:46 Propranolol 10 Mg Tab PO 20 mg BID LEYLA Administration Rifaximin 550 mg 03/10/21 12:00 04/09/21 11:47 Rifaximin 550 Mg Tab PO 550 mg BID LEYLA Administration Sodium Chloride 10 ml 02/19/21 10:00 04/09/21 11:50 Sodium Chloride 0.9% 10 Ml Flush Syringe IV 10 ml BID LEYLA Administration Sodium Chloride 10 ml 02/18/21 22:38 Sodium Chloride 0.9% 10 Ml Flush Syringe IV PRN PRN LINE FLUSH Zolpidem Tartrate 5 mg 02/24/21 09:54 03/08/21 23:25 Zolpidem 5 Mg Tab PO 5 mg QHS PRN Administration Sleep Nutrition/Malnutrition Assess - Dietary Evaluation Nutrition/Malnutrition Findings: Nutrition Notes Start: 02/19/21 10:48 Freq: Status: Active Protocol: Document 04/05/21 12:26 (Rec: 04/05/21 12:28 [email or web address]) Nutrition Notes Initial or Follow up Reassessment Current Diagnosis CKD (stage V CKD),Diabetes Other Pertinent Diagnosis COVID-19 (+), hepatic encephalopathy, ascites Current Diet Renal/Consistent CHO + Nepro once daily Labs/Tests POC BG [phone] Pertinent Medications Reviewed Height 5 ft 11 in Weight 70.8 kg Clifford Body Weight (kg) 78.18 BMI 21.7 Weight Status Appropriate Subjective/Other Information FU For intakes. Pt did not answer phone x2. Pt eating 100 % of meals. Percent of energy/protein needs met: 100%/100% Burn Absent Trauma Absent Current % PO Good (75-100%) Minimum of two criteria Yes Body Fat Depletion Mild depletion (non-severe) Fluid Accumulation Mild (non-severe) #2 Nutrition Diagnosis Increased nutrient needs ( specify in comment below) Diagnosis Progress(for reassessment Continues documentation) #1 Nutrition Diagnosis Malnutrition Diagnosis Progress(for reassessment Continues documentation) Is patient on ventilator? No Is Patient Ambulatory and/or Out of Bed No REE-([place]-St. Jeor-confined to bed) 7734.044 Calculation Used for Recommendations [place] Je[place] Additional Notes Pro needs >1.2g/kg/day Fluid needs 1-1.5L/day Nutrition Intervention Change Diet Order: Continue current Add Supplement/Snack (indicate name/kcal Nepro daily /protein ) Provides kCal: 425 Provides Protein (gm) 19 Goal #1 PO intake of meals plus ONS to meet at least 75% energy and pro needs Goal #2 Wound healing Follow-Up By: 04/12/21 Additional Comments FU for stable intakes and ONS tolerance
[2021-04-09] MEDS: INSULIN GLARGINE 100 UNITS/ML SUB-Q SCH (22:07)
[2021-04-10] MEDS: LACTULOSE 20 GM/30 ML ORAL LIQD PO SCH ×4 (05:52→17:25)
[2021-04-10] MEDS: INSULIN LISPRO 100 UNIT/ML SUB-Q SCH ×4 (09:37→22:05)
[2021-04-10] MEDS: CALCIUM ACETATE 667 MG CAP PO SCH ×3 (09:42→17:24)
[2021-04-10] MEDS: FAMOTIDINE 20 MG TAB PO SCH (09:43)
[2021-04-10] MEDS: RIFAXIMIN 550 MG TAB PO SCH ×2 (09:43→22:06)
[2021-04-10] MEDS: allopurinoL 100 MG TAB PO SCH (09:43)
--- NOTE | 2021-04-10 10:54 | Progress Note ---
Assessment and Plan Assessment and plan: 55 YO Male with ESRD on HD, Noncompliance with outpatient dialysis, Anemia, HBV, Chronic Liver Disease, Cirrhosis complicated by Esophageal Varices, HTN, Debility, DM presents to ED with confusion with diminished cognition. Patient family report the patient was "not acting like himself" and found to have worsening confusion over the past 2 days. In the ER the patient was found to have hepatic encephalopathy complicated by diminished cognition, end-stage renal disease in need of urgent dialysis, as well as uncontrolled diabetes, and acidosis. Nephrology team consulted in ED and patient was then admitted for further evaluation and Mx. A/p -- Hepatic encephalopathy due to hepatic cirrhosis cont lactulose, Neuro check, seizure precaution, aspiration precaution, fall precautions, continue to monitor. -- End stage renal disease Nephrology team consulted, strict I's/O, monitor urine output every shift, dialysis as per renal team, avoid nephrotoxic agents. --Metabolic Acidosis Nephrology team consulted, dialysis as per renal team. --Hyponatremia Monitor BMP, monitor fluid balance. -- Hyperammonemia Continue lactulose --Diabetes mellitus with hyperglycemia Consistent carb diet, SSI -- hyperkalemia, Improvement with dialysis --Ascitis, s/p paracentesis drained 6.2l of ascitic fluid --Sacral wound, cont wound care -- Moderate Protein Calorie Malnutrition, nutrition consulted --Noncompliance, counseled for medication compliance -- Thrombocytopenia --DVT Px, SCD --DNR code status --Disposition: needs placement, CM waiting for placement -- Hepatic encephalopathy -Patient alert and oriented x3. due to hepatic cirrhosis has resolved cont lactulose, Neuro check, seizure precaution, aspiration precaution, fall precautions, continue to monitor. -Diarrhea resolved was secondary to lactulose. Patient is alert no encephalopathy. -- End stage renal disease Nephrology team consulted, strict I's/O, monitor urine output every shift, dialysis as per renal team, avoid nephrotoxic agents. Await dialysis center. Still no dialysis center. We will dialyze as indicated. --Metabolic Acidosis Nephrology team consulted, dialysis as per renal team. --Hyponatremia Monitor BMP, monitor fluid balance.-Does not require to be checked today we will check every other day now. -- Hyperammonemia Continue lactulose --Pruritus Add Atarax most likely secondary to liver failure --Diabetes mellitus with hyperglycemia Consistent carb diet, SSI -- hyperkalemia, Improvement with dialysis --Ascites, s/p paracentesis drained 6.2l of ascitic fluid -no further ascites at this time. --Sacral wound, pain control continue local wound care. -- Moderate Protein Calorie Malnutrition, nutrition consulted --Noncompliance, counseled for medication compliance --Depression discussed about depression and initiation of Zoloft [facility]ing [facility] 02/19: Resume dialysis will adjust insulin for better coverage. Very poor prognosis considering poor medical compliance. Agree with hospice recommendation. Will obtain wound care to continue to manage. Monitor anemia as patient was pretty anemic during the last hospitalization. Required transfusion. 02/20: Continues to undergo dialysis no change in mental status noted. Tolerating medications. Blood sugar mildly elevated adjusted insulin yesterday when awake for the patient received a dose today and if still elevated will adjust. Again case management is working on discharge plan for this patient as he is pending placement 02/21 patient complains of right hip pain. He said he fell few weeks ago and is concerned about another fracture. He had a fracture about 8 weeks ago and had surgery. Will obtain X ray right hip. Patient pending placement. 02/22 Patient seen in Dialysis Unit. He states hip pain improved. No other complaints. Right hip X ray done yesterday report read may be healing fracture or acute fracture. Will discuss with Orthopedic Surgeon Patient pending placement 02/23 Less hip pain. Today complains of generalized itching. Will start Benadryl po prn. Orthopedic consulted to evaluate right hip. Patient pending placement 02/24 Less hip pain. Generalized itching now resolved. Orthopedic consulted to evaluate right hip. He complains of sleeplessness. Will give Ambien prn Patient pending placement 02/25 Patient requested DNR status yesterday. I discussed with him and he signed forms. He also complains of worsening abdominal distension and requested nelsy ing, Will order paracentesis. Right hip evaluated by Dr. Trivedi and conservative management recommended. 02/26: Plan for paracentesis today. Need to set up dialysis as outpatient. manager protein working on discharge planning. 02/27: Patient did not sign the consent for paracentesis yesterday so paracentesis was done today and aspirated 6.2L ascitic fluid. Patient refusing medication per RN. Getting dialysis. Patient noted slightly altered today, will place NG tube remains altered and keep refusing oral meds, order for ammonia level and will cont lactulose. 02/28: Patient appears much more calm and cooperative today. He stated that he has been refusing procedure and medication as he believes he was not in the right state of his mind. Patient acknowledges the importance of being compliant and he promises that he will take the medications as he will be given. Discharge planning per case management as patient would need outpatient dialysis center set up and personal fdc set up. 03/01/21: Patient has long-term setting but according to cyanide case hardener no available RN to accept the patient till Thursday. Continue supportive care. Discharge pending on placement. 03/02/21 -03/04/21: Discharge pending on placement, continue to monitor clinically. Continue current management and plan and supportive care. Patient need SNF placement. 03/05/2021; Awaiting SNF placement for discharge. Prognosis is very poor. Patient is nonresponsive. I try to reach to his son over the phone but could not get in touch. Patient is appropriate for hospice care. 03/06/2021; patient is awaiting SNF placement. Patient was alert and oriented. No confusion. Patient is stable to be discharged back to SNF. 03/07/2021; patient has hemoglobin of 6.8 this morning. A unit of blood ordered. Will monitor H&H. Nephrology is following for dialysis. 03/08/2021; patient's hemoglobin was 6.8 yesterday and transfused a unit of blood. I ordered yesterday to do posttransfusion H&H and was not done. CBC was ordered to be done this morning but was not done. COVID-19 test was done on 03/06 and positive. Nephrology is following the patient for his dialysis. Plan is to discharge him to SNF. Will follow with case management because patient is Covid positive. 03/09/2021; patient's repeat Covid test on 03/08/2021 was positive. Patient is pending for SNF Placement. Patient had hypoglycemia yesterday and patient was placed on Lantus and his sliding scale adjusted to high dose. Will monitor and adjust as needed. 03/10/2021; pending SNF placement. Covid test was positive on and . 03/11/2021; patient has hepatic encephalopathy and his ammonia level is very high, patient is currently on lactulose and rifaximin. Ammonia level is trending down. Nephrology is following for dialysis. Patient has positive Covid test last one was on 03/08, that makes placement difficult. Continue with case management. 03/12: Still awaiting placement, discussed with nursing staff to monitor mental status changes. Will check ammonia level. Continue to adjust blood sugar. Complicated by COVID POSITIVELY. Awaiting placement for the patient. Also dialysis chair time. I have discussed with case management as my understanding was that patient was to go for hospice but this plan appears to have changed possibly not clear to me at this time 03/13: Continue supportive care crush medications that can be crushed. Ammonia level is elevated but not as elevated as previously. Continue lactulose advised nursing staff that this should be given as ordered to communicate with the night team also. Unfortunately when the patient gets better he refuses his lactulose. I truly believe that we should strongly consider palliative care for this patient but nevertheless if he wants to continue dialysis and will be compliant with his medications this is definitely an option can be pursued. Aspiration precautions monitor hemoglobin and platelets. 03/14: Patient seen and examined, more awake today. Continue supportive care, patient was made DNR wade, signed the form today after confirming the patient and also the physician. Monitor for fever. AWAITING PLACEMENT. poor prognosis 03/15/21 Patient is seen and examined. Lab and medication reviewed. Patient denied any chest pain or shortness of breath. Patient is more awake alert today. Patient is getting them hemodialysis today. Continue current management. Awaiting placement. 03/16/21 patient seen and examined. Lab and medication reviewed. Patient feels better. Hemoglobin 8.2 and hematocrit 23.9. Complained of pain in the butt. No other complain. Continue current management and supportive care. Patient is waiting for placement. 03/17: Patient remains with poor prognosis refusing dietary intake. Again discussed hospice and palliative care management considering his current medical condition and declining poor prognostic factors. Discussed with nursing staff patient will continue with lactulose had refused this morning but did take it yesterday. Continue aspiration precautions. Discussed the importance of taking the medication the patient verbalized understanding 03/18: Patient undergoing HD discharge planning ongoing discussed with case management team. Covid test ordered today for placement purposes. 03/19/2021; Covid test was ordered and result is pending. Pending placement. 03/20/2021; patient's Covid test was positive again on 03/20/2021. Pending placement. 03/21/2021. Patient cooperative no acute distress at this time. Complains of loose stool diarrhea. Still awaiting placement. Unable to find hemodialysis placement 03/22/2021. Patient last Covid test was positive however initial test was greater than 14 days ago. Patient is no longer infected. Unable to find hemodialysis line at present. Patient being evaluated for [facility]. 03/23/2021. Patient continues to state he feels good much better at this time. Resting comfortably. No distress noted. Still awaiting hemodialysis center. 03/24/2021 patient with flat mood discussed about depression. Resting comfortably watching TV. 03/25/2021. Patient denies depression at this time. Complains of itching all over. When am i getting out of here 03/26/2021. Case management reports patient is still awaiting hemodialysis placement 03/27/2021. Case management reports patient is still awaiting hemodialysis placement. Patient is on maintenance hemodialysis three times a week, MWF schedule. Cont. Lactulose and Rifaximin. Epogen with HD. 03/28/2021. Case management reports patient is still awaiting hemodialysis placement. 03/29/2021. Plan is for the patient to go to [facility] and awaiting on hemodialysis arrangements. [facility] and does not have a bed available. Covid test ordered. We will continue to follow up with case management on discharge planning. 03/30/2021. No new developments. Await hemodialysis placement and potential transfer to [facility]. 03/31/2021. No new developments. Await hemodialysis placement and potential transfer to [facility]. 04/03/2021 [facility]ing for [facility] to [facility] 04/04/2021 Waiting for transfer to [facility] facility 04/05/2021 Undergoing hemodialysis during making examination Waiting for placement 04/06/2021 Waiting for placement 04/07/2021 Waiting for placement 04/08/2021 Waiting for placement 04/09: Patient seen and examined a little bit lethargic otherwise no new changes. Awaiting placement noted thrombocytopenia continue to monitor. Discussed with case management and Nursing staff. 04/10: Thrombocytopenia persist, continue to monitor. Still with lethargy. Continue to monitor, Aspiration precautions. Continue with HD History Interval history: Patient seen and examined no acute distress. Awake following commands, still with some lethargic. Hospitalist Physical - Physical exam Narrative exam: VITAL SIGNS: Reviewed. GENERAL: The patient appears normally developed, awake lying down in a semiprone position pale, vital signs as documented. HEAD: No signs of head trauma. EYES: Pupils are equal. Extraocular motions intact. Icteric sclera-Jaundice EARS: Hearing grossly intact. MOUTH: Oropharynx is normal. NECK: No adenopathy, no JVD. CHEST: Chest with diminished breath sounds bilaterally. No wheezes, rales, or rhonchi. CARDIAC: Regular rate and rhythm. S1 and S2, without murmurs, gallops, or rubs. VASCULAR: No Edema. Peripheral pulses normal and equal in all extremities. ABDOMEN: Soft, non tender and non distended. No rebound or guarding, and no masses palpated. Bowel Sounds normal. MUSCULOSKELETAL: Right BKA extremities without clubbing, cyanosis or edema. NEUROLOGIC EXAM: Lethargic and stuporous. No focal sensory or strength deficits. PSYCHIATRIC: Unable to clearly examine SKIN: Jaundice detail exam as documented in skin assessment - Constitutional Vitals: Temp Pulse Resp BP Pulse Ox 97.6 F 87 18 142/53 100 04/10/21 05:16 04/10/21 05:16 04/10/21 05:16 04/10/21 05:16 04/10/21 05:16 General appearance: Present: no acute distress, well-nourished Results - Labs CBC & Chem 7: 04/10/21 14:54 04/05/21 07:46 Labs: Laboratory Last Values WBC 3.6 K/mm3 (4.5-11.0) L 04/05/21 07:46 RBC 2.33 M/mm3 (3.65-5.03) L 04/05/21 07:46 Hgb 7.2 gm/dl (11.8-15.2) L 04/05/21 07:46 Hct 21.5 % (35.5-45.6) L 04/05/21 07:46 MCV 92 fl (84-94) 04/05/21 07:46 MCH 31 pg (28-32) 04/05/21 07:46 MCHC 33 % (32-34) 04/05/21 07:46 RDW 18.2 % (13.2-15.2) H 04/05/21 07:46 Plt Count 72 K/mm3 (140-440) L 04/05/21 07:46 Lymph % (Auto) 18.6 % (13.4-35.0) 04/05/21 07:46 Petroleum % (Auto) 12.6 % (0.0-7.3) H 04/05/21 07:46 Eos % (Auto) 3.4 % (0.0-4.3) 04/05/21 07:46 Baso % (Auto) 1.0 % (0.0-1.8) 04/05/21 07:46 Lymph # (Auto) 0.7 K/mm3 (1.2-5.4) L 04/05/21 07:46 Petroleum # (Auto) 0.5 K/mm3 (0.0-0.8) 04/05/21 07:46 Eos # (Auto) 0.1 K/mm3 (0.0-0.4) 04/05/21 07:46 Baso # (Auto) 0.0 K/mm3 (0.0-0.1) 04/05/21 07:46 Add Manual Diff Complete 03/07/21 05:23 Total Counted 100 03/07/21 05:23 Seg Neutrophils % 64.4 % (40.0-70.0) 04/05/21 07:46 Seg Neuts % (Manual) 78.0 % (40.0-70.0) H 03/07/21 05:23 Lymphocytes % (Manual) 13.0 % (13.4-35.0) L 03/07/21 05:23 Monocytes % (Manual) 9.0 % (0.0-7.3) H 03/07/21 05:23 Nucleated RBC % Not Reportable 03/07/21 05:23 Seg Neutrophils # 2.3 K/mm3 (1.8-7.7) 04/05/21 07:46 Seg Neutrophils # Man 2.0 K/mm3 (1.8-7.7) 03/07/21 05:23 Band Neutrophils # 0.0 K/mm3 03/07/21 05:23 Lymphocytes # (Manual) 0.3 K/mm3 (1.2-5.4) L 03/07/21 05:23 Abs React Lymphs (Man) 0.0 K/mm3 03/07/21 05:23 Monocytes # (Manual) 0.2 K/mm3 (0.0-0.8) 03/07/21 05:23 Eosinophils # (Manual) 0.0 K/mm3 (0.0-0.4) 03/07/21 05:23 Basophils # (Manual) 0.0 K/mm3 (0.0-0.1) 03/07/21 05:23 Metamyelocytes # 0.0 K/mm3 03/07/21 05:23 Myelocytes # 0.0 K/mm3 03/07/21 05:23 Promyelocytes # 0.0 K/mm3 03/07/21 05:23 Blast Cells # 0.0 K/mm3 03/07/21 05:23 WBC Morphology Not Reportable 03/07/21 05:23 Hypersegmented Neuts Not Reportable 03/07/21 05:23 Hyposegmented Neuts Not Reportable 03/07/21 05:23 Hypogranular Neuts Not Reportable 03/07/21 05:23 Smudge Cells Not Reportable 03/07/21 05:23 Toxic Granulation Not Reportable 03/07/21 05:23 Toxic Vacuolation Not Reportable 03/07/21 05:23 Dohle Bodies Not Reportable 03/07/21 05:23 Pelger-Huet Anomaly Not Reportable 03/07/21 05:23 Cosme Rods Not Reportable 03/07/21 05:23 Platelet Estimate Consistent w auto 03/07/21 05:23 Clumped Platelets Not Reportable 03/07/21 05:23 Plt Clumps, EDTA Not Reportable 03/07/21 05:23 Large Platelets Not Reportable 03/07/21 05:23 Giant Platelets Not Reportable 03/07/21 05:23 Platelet Satelliting Not Reportable 03/07/21 05:23 Plt Morphology Comment Not Reportable 03/07/21 05:23 RBC Morphology Not Reportable 03/07/21 05:23 Dimorphic RBCs Not Reportable 03/07/21 05:23 Polychromasia Not Reportable 03/07/21 05:23 Hypochromasia Not Reportable 03/07/21 05:23 Poikilocytosis Not Reportable 03/07/21 05:23 Anisocytosis Few 03/07/21 05:23 Microcytosis Not Reportable 03/07/21 05:23 Macrocytosis Not Reportable 03/07/21 05:23 Spherocytes Not Reportable 03/07/21 05:23 Pappenheimer Bodies Not Reportable 03/07/21 05:23 Sickle Cells Not Reportable 03/07/21 05:23 Target Cells Not Reportable 03/07/21 05:23 Tear Drop Cells Not Reportable 03/07/21 05:23 Ovalocytes Not Reportable 03/07/21 05:23 Helmet Cells Not Reportable 03/07/21 05:23 Mercado-Muncy Bodies Not Reportable 03/07/21 05:23 [place] Rings Not Reportable 03/07/21 05:23 Kathy Cells Not Reportable 03/07/21 05:23 Bite Cells Not Reportable 03/07/21 05:23 Crenated Cell Not Reportable 03/07/21 05:23 Elliptocytes Not Reportable 03/07/21 05:23 Acanthocytes (Spur) Not Reportable 03/07/21 05:23 Rouleaux Not Reportable 03/07/21 05:23 Hemoglobin C Crystals Not Reportable 03/07/21 05:23 Schistocytes Not Reportable 03/07/21 05:23 Malaria parasites Not Reportable 03/07/21 05:23 Samir Bodies Not Reportable 03/07/21 05:23 Hem Pathologist Commnt No 03/07/21 05:23 PT 13.7 Sec. (12.2-14.9) 02/26/21 04:33 INR 1.00 (0.87-1.13) 02/26/21 04:33 Sodium 140 mmol/L (137-145) 04/05/21 07:46 Potassium 4.3 mmol/L (3.6-5.0) 04/05/21 07:46 Chloride 100.3 mmol/L (98-107) 04/05/21 07:46 Carbon Dioxide 30 mmol/L (22-30) 04/05/21 07:46 Anion Gap 14 mmol/L 04/05/21 07:46 BUN 60 mg/dL (9-20) H 04/05/21 07:46 Creatinine 6.5 mg/dL (0.8-1.3) H 04/05/21 07:46 Estimated GFR 9 ml/min 04/05/21 07:46 BUN/Creatinine Ratio 9 % 04/05/21 07:46 Glucose 217 mg/dL (75-100) H 04/05/21 07:46 POC Glucose 219 mg/dL (70-105) H 04/10/21 07:31 Hemoglobin A1c 7.4 % (4-6) H 02/26/21 04:33 Calcium 8.9 mg/dL (8.4-10.2) 04/05/21 07:46 Phosphorus 3.40 mg/dL (2.5-4.5) 04/03/21 07:30 Magnesium 2.10 mg/dL (1.7-2.3) 02/17/21 02:24 Iron 52 ug/dL (49-181) 03/30/21 05:11 TIBC 203 mcg/dL (250-450) L 03/30/21 05:11 Ferritin 70.9 ng/mL (30.0-300.0) 03/30/21 05:11 Total Bilirubin 0.60 mg/dL (0.1-1.2) 04/05/21 07:46 Direct Bilirubin 0.3 mg/dL (0-0.2) H 03/14/21 07:24 Indirect Bilirubin 0.3 mg/dL 03/14/21 07:24 AST 34 units/L (5-40) 04/05/21 07:46 ALT 23 units/L (7-56) 04/05/21 07:46 Alkaline Phosphatase 183 units/L (35-129) H 04/05/21 07:46 Ammonia 68.0 umol/L (25-60) H 04/05/21 07:46 Total Creatine Kinase 86 units/L (55-170) 02/17/21 02:24 Total Protein 5.8 g/dL (6.3-8.2) L 04/05/21 07:46 Albumin 2.5 g/dL (3.9-5) L 04/05/21 07:46 Albumin/Globulin Ratio 0.8 % 04/05/21 07:46 Vitamin B12 1583 pg/mL (211-911) H 03/30/21 05:11 Folate 10.11 ng/mL (7.3-26.0) 03/30/21 05:11 TSH 0.986 mlU/mL (0.270-4.200) 02/17/21 02:24 Urine Color Yellow (Yellow) 02/17/21 Unknown Urine Turbidity Clear (Clear) 02/17/21 Unknown Urine pH 6.0 (5.0-7.0) 02/17/21 Unknown Ur Specific [place] 1.012 (1.003-1.030) 02/17/21 Unknown Urine Protein 100 mg/dl mg/dL (Negative) 02/17/21 Unknown Urine Glucose (UA) >=500 mg/dL (Negative) 02/17/21 Unknown Urine Ketones Neg mg/dL (Negative) 02/17/21 Unknown Urine Blood Neg (Negative) 02/17/21 Unknown Urine Nitrite Neg (Negative) 02/17/21 Unknown Urine Bilirubin Neg (Negative) 02/17/21 Unknown Urine Urobilinogen < 2.0 mg/dL (<2.0) 02/17/21 Unknown Ur Leukocyte Esterase Neg (Negative) 02/17/21 Unknown Urine WBC (Auto) 2.0 /HPF (0.0-6.0) 02/17/21 Unknown Urine RBC (Auto) 2.0 /HPF (0.0-6.0) 02/17/21 Unknown U Epithel Cells (Auto) < 1.0 /HPF (0-13.0) 02/17/21 Unknown Urine Bacteria (Auto) 1+ /HPF (Negative) 02/17/21 Unknown Salicylates < 0.3 mg/dL (2.8-20.0) L 02/17/21 02:24 Acetaminophen 5.0 ug/mL (10.0-30.0) L 02/17/21 02:24 Coronavirus (PCR) Positive (Negative) A 04/03/21 Unknown Hepatitis A IgM Ab Non-reactive (NonReactive) 02/28/21 12:37 Hep Bs Antigen Non-reactive (Negative) 03/28/21 18:57 Hep B Core IgM Ab Non-reactive (NonReactive) 02/28/21 12:37 Hepatitis C Antibody Non-reactive (NonReactive) 02/28/21 12:37 Blood Type A POSITIVE 03/07/21 06:31 Antibody Screen Negative 03/07/21 06:31 Crossmatch See Detail 03/07/21 06:31 Sr/IV: Voiding Method Incontinent Active Medications - Current Medications Current Medications: Generic Name Dose Route Start Last Admin Trade Name Freq PRN Reason Stop Dose Admin Acetaminophen 650 mg 02/18/21 22:38 03/09/21 13:15 Acetaminophen 325 Mg Tab PO 650 mg Q4H PRN Administration Pain MILD(1-3)/Fever >100.5/MOLINA Albuterol 2.5 mg 02/18/21 22:38 Albuterol 2.5 Mg/3 Ml Nebu IH Q3HRT PRN Shortness Of Breath Allopurinol 100 mg 02/20/21 10:00 04/10/21 09:43 Allopurinol 100 Mg Tab PO 100 mg QDAY LEYLA Administration Calcium Acetate 1,334 mg 02/20/21 08:30 04/10/21 09:42 Calcium Acetate 667 Mg Cap PO 1,334 mg TIDWM LEYLA Administration Dextrose 50 ml 03/29/21 12:00 Dextrose 50% In Water (25gm) 50 Ml Syringe IV Q30MIN PRN HYPOGLYCEMIA Protocol Diphenhydramine HCl 25 mg 02/23/21 09:10 03/24/21 09:01 Diphenhydramine 25 Mg Cap PO 25 mg BID PRN Administration Itching Famotidine 20 mg 02/19/21 10:00 04/10/21 09:43 Famotidine 20 Mg Tab PO 20 mg QAM LEYLA Administration Hydralazine HCl 10 mg 02/18/21 22:56 Hydralazine 20 Mg/1 Ml Inj IV Q6H PRN htn Hydroxyzine HCl 25 mg 03/24/21 10:38 Hydroxyzine Hcl 25 Mg Tab PO Q6H PRN Itching Sodium Chloride 100 mls @ 999 mls/hr 02/19/21 09:06 Nacl 0.9% IV OLIVIA PRN Hypotension Insulin Glargine 16 units 03/23/21 09:00 04/09/21 22:07 Insulin Glargine 100 Units/Ml SUB-Q 16 units QHS LEYLA Administration Insulin Human Lispro 0 unit 03/09/21 22:00 04/10/21 09:37 Insulin Lispro 100 Unit/Ml SUB-Q 4 unit ACHS LEYLA Administration Protocol Lactulose 20 gm 03/09/21 18:00 04/10/21 05:52 Lactulose 20 Gm/30 Ml Oral Liqd PO 20 gm Q6HR LEYLA Administration Ondansetron HCl 4 mg 02/18/21 22:38 02/28/21 12:32 Ondansetron 4 Mg/2 Ml Inj IV 4 mg Q8H PRN Administration Nausea And Vomiting Polyethylene Glycol 17 gm 02/24/21 12:08 02/24/21 12:47 Polyethylene Glycol 3350 17 Gm Powder PO 17 gm QDAY PRN Administration Constipation Propranolol HCl 20 mg 02/20/21 10:00 04/09/21 22:07 Propranolol 10 Mg Tab PO 20 mg BID LEYLA Administration Rifaximin 550 mg 03/10/21 12:00 04/10/21 09:43 Rifaximin 550 Mg Tab PO 550 mg BID LEYLA Administration Sodium Chloride 10 ml 02/19/21 10:00 04/10/21 09:43 Sodium Chloride 0.9% 10 Ml Flush Syringe IV 10 ml BID LEYLA Administration Sodium Chloride 10 ml 02/18/21 22:38 Sodium Chloride 0.9% 10 Ml Flush Syringe IV PRN PRN LINE FLUSH Zolpidem Tartrate 5 mg 02/24/21 09:54 03/08/21 23:25 Zolpidem 5 Mg Tab PO 5 mg QHS PRN Administration Sleep Nutrition/Malnutrition Assess - Dietary Evaluation Nutrition/Malnutrition Findings: Nutrition Notes Start: 02/19/21 10:48 Freq: Status: Active Protocol: Document 04/05/21 12:26 (Rec: 04/05/21 12:28 [id number]) Nutrition Notes Initial or Follow up Reassessment Current Diagnosis CKD (stage V CKD),Diabetes Other Pertinent Diagnosis COVID-19 (+), hepatic encephalopathy, ascites Current Diet Renal/Consistent CHO + Nepro once daily Labs/Tests POC BG [phone] Pertinent Medications Reviewed Height 5 ft 11 in Weight 70.8 kg [place] Body Weight (kg) 78.18 BMI 21.7 Weight Status Appropriate Subjective/Other Information FU For intakes. Pt did not answer phone x2. Pt eating 100 % of meals. Percent of energy/protein needs met: 100%/100% Burn Absent Trauma Absent Current % PO Good (75-100%) Minimum of two criteria Yes Body Fat Depletion Mild depletion (non-severe) Fluid Accumulation Mild (non-severe) #2 Nutrition Diagnosis Increased nutrient needs ( specify in comment below) Diagnosis Progress(for reassessment Continues documentation) #1 Nutrition Diagnosis Malnutrition Diagnosis Progress(for reassessment Continues documentation) Is patient on ventilator? No Is Patient Ambulatory and/or Out of Bed No REE-([facility]-confined to bed) 0583.988 Calculation [facility]ations [facility] Additional Notes Pro needs >1.2g/kg/day Fluid needs 1-1.5L/day Nutrition Intervention Change Diet Order: Continue current Add Supplement/Snack (indicate name/kcal Nepro daily /protein ) Provides kCal: 425 Provides Protein (gm) 19 Goal #1 PO intake of meals plus ONS to meet at least 75% energy and pro needs Goal #2 Wound healing Follow-Up By: 04/12/21 Additional Comments FU for stable intakes and ONS tolerance - Malnutrition Assessment Minimum of two criteria: Yes - Attestation Statement I have reviewed and agreed w/ Malnutrition eval & tx plan: Yes
--- NOTE | 2021-04-10 11:33 | Progress Note ---
Assessment and Plan 1. ESRD: Patient is on maintenance hemodialysis three times a week, MWF schedule. Meds dosage based on GFR. Missed HD 02/18. Hemodialysis: 02/19, 02/20, 02/22, 02/25, 02/27, 03/01, 03/04, 03/06, 03/08, 03/11, 03/13, 03/15, 03/18, 03/20, 03/22, 03/25, 03/27, 03/29, 04/01, 04/03, 04/05, 04/08, 04/10. After about 30 min of treatment the fistula site was infiltrated as patient was keep moving his arm. The treatment was stopped. 2. FEN: Monitor lytes and volume status. 3. Anemia, POA: 2/2 ESRD and Liver disease. Epogen with HD. IV Iron 125 mg 04/05. PRBC as needed. 4. Cirrhosis with h/o hepatic encephalopathy: Lactulose and Rifaximin. Monitor. 5. DM type 2: SSI. Monitor. 6. Thrombocytopenia, POA. 7. Hypotension: BP is better now. Await placement. Subjective: Patient was seen and examined at the bedside. General Appearance: General appearance: well-developed, appears stated age, not in distress HEENT: ATNC, pupils equal Neck: trachea midline Respiratory: ctab Heart: regular, S1S2, no murmur Abdomen: soft, bowel sounds heard, slightly distended, not tender Integumentary: no rash, warm and dry Neurologic: lethargic, not following any command Ext: no edema, R BKA Hemodialysis access: R arm AVF Subjective Date of service: 04/10/21 Principal diagnosis: Acute encephalopathy Objective - Vital Signs Vital signs: Vital Signs - 12hr 04/10/21 04/10/21 04/10/21 05:16 10:35 10:45 Temperature 97.6 F 97.9 F Pulse Rate 87 74 74 Respiratory 18 18 Rate Blood Pressure 142/53 169/82 140/76 O2 Sat by Pulse 100 Oximetry 04/10/21 04/10/21 11:00 11:15 Temperature Pulse Rate 78 78 Respiratory Rate Blood Pressure 146/77 141/61 O2 Sat by Pulse Oximetry - Lab 04/10/21 14:54 04/10/21 14:54 Most recent lab results Calcium 8.9 mg/dL (8.4-10.2) 04/05/21 07:46 Phosphorus 3.40 mg/dL (2.5-4.5) 04/03/21 07:30 Magnesium 2.10 mg/dL (1.7-2.3) 02/17/21 02:24 Medications & Allergies - Medications Allergies/Adverse Reactions: Allergies No Known Allergies Allergy (Verified 02/16/21 18:26) Home Medications: Home Medications Medication Instructions Recorded Confirmed Last Taken Type Calcium Acetate [Phoslo] 1,334 mg PO TIDWM #90 capsule 03/01/21 Unknown Rx Famotidine [Pepcid] 20 mg PO QAM #30 tablet 03/01/21 Unknown Rx Lactulose [Cephulac] 20 gm PO Q8HR 30 Days 03/01/21 Unknown Rx Lispro Insulin [HumaLOG] See Protocol SQ ACHS 30 Days 03/01/21 Unknown Rx allopurinoL [Zyloprim] 100 mg PO QDAY #30 tablet 03/01/21 Unknown Rx propranoloL [Inderal] 20 mg PO BID #60 tablet 03/01/21 Unknown Rx Active Medications: Generic Name Dose Route Start Last Admin Trade Name Freq PRN Reason Stop Dose Admin Acetaminophen 650 mg 02/18/21 22:38 03/09/21 13:15 Acetaminophen 325 Mg Tab PO 650 mg Q4H PRN Administration Pain MILD(1-3)/Fever >100.5/MOLINA Albuterol 2.5 mg 02/18/21 22:38 Albuterol 2.5 Mg/3 Ml Nebu IH Q3HRT PRN Shortness Of Breath Allopurinol 100 mg 02/20/21 10:00 04/10/21 09:43 Allopurinol 100 Mg Tab PO 100 mg QDAY LEYLA Administration Calcium Acetate 1,334 mg 02/20/21 08:30 04/10/21 09:42 Calcium Acetate 667 Mg Cap PO 1,334 mg TIDWM LEYLA Administration Dextrose 50 ml 03/29/21 12:00 Dextrose 50% In Water (25gm) 50 Ml Syringe IV Q30MIN PRN HYPOGLYCEMIA Protocol Diphenhydramine HCl 25 mg 02/23/21 09:10 03/24/21 09:01 Diphenhydramine 25 Mg Cap PO 25 mg BID PRN Administration Itching Famotidine 20 mg 02/19/21 10:00 04/10/21 09:43 Famotidine 20 Mg Tab PO 20 mg QAM LEYLA Administration Hydralazine HCl 10 mg 02/18/21 22:56 Hydralazine 20 Mg/1 Ml Inj IV Q6H PRN htn Hydroxyzine HCl 25 mg 03/24/21 10:38 Hydroxyzine Hcl 25 Mg Tab PO Q6H PRN Itching Sodium Chloride 100 mls @ 999 mls/hr 02/19/21 09:06 Nacl 0.9% IV OLIVIA PRN Hypotension Insulin Glargine 16 units 03/23/21 09:00 04/09/21 22:07 Insulin Glargine 100 Units/Ml SUB-Q 16 units QHS LEYLA Administration Insulin Human Lispro 0 unit 03/09/21 22:00 04/10/21 09:37 Insulin Lispro 100 Unit/Ml SUB-Q 4 unit ACHS LEYLA Administration Protocol Lactulose 20 gm 03/09/21 18:00 04/10/21 05:52 Lactulose 20 Gm/30 Ml Oral Liqd PO 20 gm Q6HR LEYLA Administration Ondansetron HCl 4 mg 02/18/21 22:38 02/28/21 12:32 Ondansetron 4 Mg/2 Ml Inj IV 4 mg Q8H PRN Administration Nausea And Vomiting Polyethylene Glycol 17 gm 02/24/21 12:08 02/24/21 12:47 Polyethylene Glycol 3350 17 Gm Powder PO 17 gm QDAY PRN Administration Constipation Propranolol HCl 20 mg 02/20/21 10:00 04/09/21 22:07 Propranolol 10 Mg Tab PO 20 mg BID LEYLA Administration Rifaximin 550 mg 03/10/21 12:00 04/10/21 09:43 Rifaximin 550 Mg Tab PO 550 mg BID LEYLA Administration Sodium Chloride 10 ml 02/19/21 10:00 04/10/21 09:43 Sodium Chloride 0.9% 10 Ml Flush Syringe IV 10 ml BID LEYLA Administration Sodium Chloride 10 ml 02/18/21 22:38 Sodium Chloride 0.9% 10 Ml Flush Syringe IV PRN PRN LINE FLUSH Zolpidem Tartrate 5 mg 02/24/21 09:54 03/08/21 23:25 Zolpidem 5 Mg Tab PO 5 mg QHS PRN Administration Sleep
[2021-04-10] MEDS: PROPRANOLOL 10 MG TAB PO SCH ×2 (12:08→22:06)
[2021-04-10 15:09] LABS: Hemoglobin 7.6 gm/dl (11.8-15.2); Mean Corpuscular HGB Conc 33 % (32-34); Mean Corpuscular Volume 95 fl (84-94); Red Blood Count 2.43 M/mm3 (3.65-5.03)
[2021-04-10 15:14] LABS: Platelet Count 98 K/mm3 (140-440)
[2021-04-10 15:26] LABS: Calcium 8.5 mg/dL (8.4-10.2)
[2021-04-10] MEDS: INSULIN GLARGINE 100 UNITS/ML SUB-Q SCH (22:04)
[2021-04-11] MEDS: LACTULOSE 20 GM/30 ML ORAL LIQD PO SCH ×5 (02:55→23:52)
--- NOTE | 2021-04-11 07:39 | Progress Note ---
Assessment and Plan Assessment and plan: 55 YO Male with ESRD on HD, Noncompliance with outpatient dialysis, Anemia, HBV, Chronic Liver Disease, Cirrhosis complicated by Esophageal Varices, HTN, Debility, DM presents to ED with confusion with diminished cognition. Patient family report the patient was "not acting like himself" and found to have worsening confusion over the past 2 days. In the ER the patient was found to have hepatic encephalopathy complicated by diminished cognition, end-stage renal disease in need of urgent dialysis, as well as uncontrolled diabetes, and acidosis. Nephrology team consulted in ED and patient was then admitted for further evaluation and Mx. A/p -- Hepatic encephalopathy due to hepatic cirrhosis cont lactulose, Neuro check, seizure precaution, aspiration precaution, fall precautions, continue to monitor. -- End stage renal disease Nephrology team consulted, strict I's/O, monitor urine output every shift, dialysis as per renal team, avoid nephrotoxic agents. --Metabolic Acidosis Nephrology team consulted, dialysis as per renal team. --Hyponatremia Monitor BMP, monitor fluid balance. -- Hyperammonemia Continue lactulose --Diabetes mellitus with hyperglycemia Consistent carb diet, SSI -- hyperkalemia, Improvement with dialysis --Ascitis, s/p paracentesis drained 6.2l of ascitic fluid --Sacral wound, cont wound care -- Moderate Protein Calorie Malnutrition, nutrition consulted --Noncompliance, counseled for medication compliance -- Thrombocytopenia --DVT Px, SCD --DNR code status --Disposition: needs placement, CM waiting for placement -- Hepatic encephalopathy -Patient alert and oriented x3. due to hepatic cirrhosis has resolved cont lactulose, Neuro check, seizure precaution, aspiration precaution, fall precautions, continue to monitor. -Diarrhea resolved was secondary to lactulose. Patient is alert no encephalopathy. -- End stage renal disease Nephrology team consulted, strict I's/O, monitor urine output every shift, dialysis as per renal team, avoid nephrotoxic agents. Await dialysis center. Still no dialysis center. We will dialyze as indicated. --Metabolic Acidosis Nephrology team consulted, dialysis as per renal team. --Hyponatremia Monitor BMP, monitor fluid balance.-Does not require to be checked today we will check every other day now. -- Hyperammonemia Continue lactulose --Pruritus Add Atarax most likely secondary to liver failure --Diabetes mellitus with hyperglycemia Consistent carb diet, SSI -- hyperkalemia, Improvement with dialysis --Ascites, s/p paracentesis drained 6.2l of ascitic fluid -no further ascites at this time. --Sacral wound, pain control continue local wound care. -- Moderate Protein Calorie Malnutrition, nutrition consulted --Noncompliance, counseled for medication compliance --Depression discussed about depression and initiation of Zoloft Waiting for transfer to [facility] facility 02/19: Resume dialysis will adjust insulin for better coverage. Very poor prognosis considering poor medical compliance. Agree with hospice recommendation. Will obtain wound care to continue to manage. Monitor anemia as patient was pretty anemic during the last hospitalization. Required transfusion. 02/20: Continues to undergo dialysis no change in mental status noted. Tolerating medications. Blood sugar mildly elevated adjusted insulin yesterday when awake for the patient received a dose today and if still elevated will adjust. Again case management is working on discharge plan for this patient as he is pending placement 02/21 patient complains of right hip pain. He said he fell few weeks ago and is concerned about another fracture. He had a fracture about 8 weeks ago and had surgery. Will obtain X ray right hip. Patient pending placement. 02/22 Patient seen in Dialysis Unit. He states hip pain improved. No other complaints. Right hip X ray done yesterday report read may be healing fracture or acute fracture. Will discuss with Orthopedic Surgeon Patient pending placement 02/23 Less hip pain. Today complains of generalized itching. Will start Benadryl po prn. Orthopedic consulted to evaluate right hip. Patient pending placement 02/24 Less hip pain. Generalized itching now resolved. Orthopedic consulted to evaluate right hip. He complains of sleeplessness. Will give Ambien prn Patient pending placement 02/25 Patient requested DNR status yesterday. I discussed with him and he signed forms. He also complains of worsening abdominal distension and requested nelsy ing, Will order paracentesis. Right hip evaluated by Dr. Trivedi and conservative management recommended. 02/26: Plan for paracentesis today. Need to set up dialysis as outpatient. funeral home general manager working on discharge planning. 02/27: Patient did not sign the consent for paracentesis yesterday so paracentesis was done today and aspirated 6.2L ascitic fluid. Patient refusing medication per RN. Getting dialysis. Patient noted slightly altered today, will place NG tube remains altered and keep refusing oral meds, order for ammonia level and will cont lactulose. 02/28: Patient appears much more calm and cooperative today. He stated that he has been refusing procedure and medication as he believes he was not in the right state of his mind. Patient acknowledges the importance of being compliant and he promises that he will take the medications as he will be given. Discharge planning per case management as patient would need outpatient dialysis center set up and personal custodial set up. 03/01/21: Patient has senior living setting but according to major case detective no available RN to accept the patient till Thursday. Continue supportive care. Discharge pending on placement. 03/02/21 -03/04/21: Discharge pending on placement, continue to monitor clinically. Continue current management and plan and supportive care. Patient need SNF placement. 03/05/2021; Awaiting SNF placement for discharge. Prognosis is very poor. Patient is nonresponsive. I try to reach to his son over the phone but could not get in touch. Patient is appropriate for hospice care. 03/06/2021; patient is awaiting SNF placement. Patient was alert and oriented. No confusion. Patient is stable to be discharged back to SNF. 03/07/2021; patient has hemoglobin of 6.8 this morning. A unit of blood ordered. Will monitor H&H. Nephrology is following for dialysis. 03/08/2021; patient's hemoglobin was 6.8 yesterday and transfused a unit of blood. I ordered yesterday to do posttransfusion H&H and was not done. CBC was ordered to be done this morning but was not done. COVID-19 test was done on 03/06 and positive. Nephrology is following the patient for his dialysis. Plan is to discharge him to SNF. Will follow with case management because patient is Covid positive. 03/09/2021; patient's repeat Covid test on 03/08/2021 was positive. Patient is pending for SNF Placement. Patient had hypoglycemia yesterday and patient was placed on Lantus and his sliding scale adjusted to high dose. Will monitor and adjust as needed. 03/10/2021; pending SNF placement. Covid test was positive on and . 03/11/2021; patient has hepatic encephalopathy and his ammonia level is very high, patient is currently on lactulose and rifaximin. Ammonia level is trending down. Nephrology is following for dialysis. Patient has positive Covid test last one was on 03/08, that makes placement difficult. Continue with case management. 03/12: Still awaiting placement, discussed with nursing staff to monitor mental status changes. Will check ammonia level. Continue to adjust blood sugar. Complicated by COVID POSITIVELY. Awaiting placement for the patient. Also dialysis chair time. I have discussed with case management as my understanding was that patient was to go for hospice but this plan appears to have changed possibly not clear to me at this time 03/13: Continue supportive care crush medications that can be crushed. Ammonia level is elevated but not as elevated as previously. Continue lactulose advised nursing staff that this should be given as ordered to communicate with the night team also. Unfortunately when the patient gets better he refuses his lactulose. I truly believe that we should strongly consider palliative care for this patient but nevertheless if he wants to continue dialysis and will be compliant with his medications this is definitely an option can be pursued. Aspiration precautions monitor hemoglobin and platelets. 03/14: Patient seen and examined, more awake today. Continue supportive care, patient was made DNR wade, signed the form today after confirming the patient and also the physician. Monitor for fever. AWAITING PLACEMENT. poor prognosis 03/15/21 Patient is seen and examined. Lab and medication reviewed. Patient denied any chest pain or shortness of breath. Patient is more awake alert today. Patient is getting them hemodialysis today. Continue current management. Awaiting placement. 03/16/21 patient seen and examined. Lab and medication reviewed. Patient feels better. Hemoglobin 8.2 and hematocrit 23.9. Complained of pain in the butt. No other complain. Continue current management and supportive care. Patient is waiting for placement. 03/17: Patient remains with poor prognosis refusing dietary intake. Again discussed hospice and palliative care management considering his current medical condition and declining poor prognostic factors. Discussed with nursing staff patient will continue with lactulose had refused this morning but did take it yesterday. Continue aspiration precautions. Discussed the importance of taking the medication the patient verbalized understanding 03/18: Patient undergoing HD discharge planning ongoing discussed with case management team. Covid test ordered today for placement purposes. 03/19/2021; Covid test was ordered and result is pending. Pending placement. 03/20/2021; patient's Covid test was positive again on 03/20/2021. Pending placement. 03/21/2021. Patient cooperative no acute distress at this time. Complains of loose stool diarrhea. Still awaiting placement. Unable to find hemodialysis placement 03/22/2021. Patient last Covid test was positive however initial test was greater than 14 days ago. Patient is no longer infected. Unable to find hemodialysis line at present. Patient being evaluated for [facility]. 03/23/2021. Patient continues to state he feels good much better at this time. Resting comfortably. No distress noted. Still awaiting hemodialysis center. 03/24/2021 patient with flat mood discussed about depression. Resting comfortably watching TV. 03/25/2021. Patient denies depression at this time. Complains of itching all over. When am i getting out of here 03/26/2021. Case management reports patient is still awaiting hemodialysis placement 03/27/2021. Case management reports patient is still awaiting hemodialysis placement. Patient is on maintenance hemodialysis three times a week, MWF schedule. Cont. Lactulose and Rifaximin. Epogen with HD. 03/28/2021. Case management reports patient is still awaiting hemodialysis placement. 03/29/2021. Plan is for the patient to go to [facility] and awaiting on hemodialysis arrangements. [facility] and does not have a bed available. Covid test ordered. We will continue to follow up with case management on discharge planning. 03/30/2021. No new developments. Await hemodialysis placement and potential transfer to [facility]. 03/31/2021. No new developments. Await hemodialysis placement and potential transfer to [facility]. 04/03/2021 Waiting for transfer to [facility] facility 04/04/2021 Waiting for transfer to [facility] facility 04/05/2021 Undergoing hemodialysis during making examination Waiting for placement 04/06/2021 Waiting for placement 04/07/2021 Waiting for placement 04/08/2021 Waiting for placement 04/09: Patient seen and examined a little bit lethargic otherwise no new changes. Awaiting placement noted thrombocytopenia continue to monitor. Discussed with case management and Nursing staff. 04/10: Thrombocytopenia persist, continue to monitor. Still with lethargy. Continue to monitor, Aspiration precautions. Continue with HD 04/11: Discussed with case management patient may possibly have a HD time today and will be able to be discharged unfortunately I think patient has a really poor prognosis considering his liver failure and my recommendation remains for hospice management to be considered outpatient. Patient however wants to continue dialysis. We will continue lactulose. History Interval history: Patient seen and examined no acute distress. Awake following commands, still with some lethargic. Hospitalist Physical - Physical exam Narrative exam: VITAL SIGNS: Reviewed. GENERAL: The patient appears normally developed, awake lying down in a semiprone position pale, vital signs as documented. HEAD: No signs of head trauma. EYES: Pupils are equal. Extraocular motions intact. Icteric sclera-Jaundice EARS: Hearing grossly intact. MOUTH: Oropharynx is normal. NECK: No adenopathy, no JVD. CHEST: Chest with diminished breath sounds bilaterally. No wheezes, rales, or rhonchi. CARDIAC: Regular rate and rhythm. S1 and S2, without murmurs, gallops, or rubs. VASCULAR: No Edema. Peripheral pulses normal and equal in all extremities. ABDOMEN: Soft, non tender and non distended. No rebound or guarding, and no masses palpated. Bowel Sounds normal. MUSCULOSKELETAL: Right BKA extremities without clubbing, cyanosis or edema. NEUROLOGIC EXAM: Lethargic and stuporous. No focal sensory or strength deficits. PSYCHIATRIC: Unable to clearly examine SKIN: Jaundice detail exam as documented in skin assessment - Constitutional Vitals: Temp Pulse Resp BP Pulse Ox 97.9 F 71 16 134/68 100 04/10/21 20:42 04/10/21 22:06 04/10/21 20:42 04/10/21 22:06 04/10/21 22:00 General appearance: Present: no acute distress, well-nourished Results - Labs CBC & Chem 7: 04/10/21 14:54 04/10/21 14:54 Labs: Laboratory Last Values WBC 3.4 K/mm3 (4.5-11.0) L 04/10/21 14:54 RBC 2.43 M/mm3 (3.65-5.03) L 04/10/21 14:54 Hgb 7.6 gm/dl (11.8-15.2) L 04/10/21 14:54 Hct 23.0 % (35.5-45.6) L 04/10/21 14:54 MCV 95 fl (84-94) H 04/10/21 14:54 MCH 31 pg (28-32) 04/10/21 14:54 MCHC 33 % (32-34) 04/10/21 14:54 RDW 20.0 % (13.2-15.2) H 04/10/21 14:54 Plt Count 98 K/mm3 (140-440) L 04/10/21 14:54 Lymph % (Auto) 18.6 % (13.4-35.0) 04/05/21 07:46 Mayes % (Auto) 12.6 % (0.0-7.3) H 04/05/21 07:46 Eos % (Auto) 3.4 % (0.0-4.3) 04/05/21 07:46 Baso % (Auto) 1.0 % (0.0-1.8) 04/05/21 07:46 Lymph # (Auto) 0.7 K/mm3 (1.2-5.4) L 04/05/21 07:46 Mayes # (Auto) 0.5 K/mm3 (0.0-0.8) 04/05/21 07:46 Eos # (Auto) 0.1 K/mm3 (0.0-0.4) 04/05/21 07:46 Baso # (Auto) 0.0 K/mm3 (0.0-0.1) 04/05/21 07:46 Add Manual Diff Complete 03/07/21 05:23 Total Counted 100 03/07/21 05:23 Seg Neutrophils % 64.4 % (40.0-70.0) 04/05/21 07:46 Seg Neuts % (Manual) 78.0 % (40.0-70.0) H 03/07/21 05:23 Lymphocytes % (Manual) 13.0 % (13.4-35.0) L 03/07/21 05:23 Monocytes % (Manual) 9.0 % (0.0-7.3) H 03/07/21 05:23 Nucleated RBC % Not Reportable 03/07/21 05:23 Seg Neutrophils # 2.3 K/mm3 (1.8-7.7) 04/05/21 07:46 Seg Neutrophils # Man 2.0 K/mm3 (1.8-7.7) 03/07/21 05:23 Band Neutrophils # 0.0 K/mm3 03/07/21 05:23 Lymphocytes # (Manual) 0.3 K/mm3 (1.2-5.4) L 03/07/21 05:23 Abs React Lymphs (Man) 0.0 K/mm3 03/07/21 05:23 Monocytes # (Manual) 0.2 K/mm3 (0.0-0.8) 03/07/21 05:23 Eosinophils # (Manual) 0.0 K/mm3 (0.0-0.4) 03/07/21 05:23 Basophils # (Manual) 0.0 K/mm3 (0.0-0.1) 03/07/21 05:23 Metamyelocytes # 0.0 K/mm3 03/07/21 05:23 Myelocytes # 0.0 K/mm3 03/07/21 05:23 Promyelocytes # 0.0 K/mm3 03/07/21 05:23 Blast Cells # 0.0 K/mm3 03/07/21 05:23 WBC Morphology Not Reportable 03/07/21 05:23 Hypersegmented Neuts Not Reportable 03/07/21 05:23 Hyposegmented Neuts Not Reportable 03/07/21 05:23 Hypogranular Neuts Not Reportable 03/07/21 05:23 Smudge Cells Not Reportable 03/07/21 05:23 Toxic Granulation Not Reportable 03/07/21 05:23 Toxic Vacuolation Not Reportable 03/07/21 05:23 Dohle Bodies Not Reportable 03/07/21 05:23 Pelger-Huet Anomaly Not Reportable 03/07/21 05:23 Cosme Rods Not Reportable 03/07/21 05:23 Platelet Estimate Consistent w auto 03/07/21 05:23 Clumped Platelets Not Reportable 03/07/21 05:23 Plt Clumps, EDTA Not Reportable 03/07/21 05:23 Large Platelets Not Reportable 03/07/21 05:23 Giant Platelets Not Reportable 03/07/21 05:23 Platelet Satelliting Not Reportable 03/07/21 05:23 Plt Morphology Comment Not Reportable 03/07/21 05:23 RBC Morphology Not Reportable 03/07/21 05:23 Dimorphic RBCs Not Reportable 03/07/21 05:23 Polychromasia Not Reportable 03/07/21 05:23 Hypochromasia Not Reportable 03/07/21 05:23 Poikilocytosis Not Reportable 03/07/21 05:23 Anisocytosis Few 03/07/21 05:23 Microcytosis Not Reportable 03/07/21 05:23 Macrocytosis Not Reportable 03/07/21 05:23 Spherocytes Not Reportable 03/07/21 05:23 Pappenheimer Bodies Not Reportable 03/07/21 05:23 Sickle Cells Not Reportable 03/07/21 05:23 Target Cells Not Reportable 03/07/21 05:23 Tear Drop Cells Not Reportable 03/07/21 05:23 Ovalocytes Not Reportable 03/07/21 05:23 Helmet Cells Not Reportable 03/07/21 05:23 Mercado-Paradis Bodies Not Reportable 03/07/21 05:23 [place] Rings Not Reportable 03/07/21 05:23 [place] Cells Not Reportable 03/07/21 05:23 Bite Cells Not Reportable 03/07/21 05:23 Crenated Cell Not Reportable 03/07/21 05:23 Elliptocytes Not Reportable 03/07/21 05:23 Acanthocytes (Spur) Not Reportable 03/07/21 05:23 Rouleaux Not Reportable 03/07/21 05:23 Hemoglobin C Crystals Not Reportable 03/07/21 05:23 Schistocytes Not Reportable 03/07/21 05:23 Malaria parasites Not Reportable 03/07/21 05:23 Samir Bodies Not Reportable 03/07/21 05:23 Hem Pathologist Commnt No 03/07/21 05:23 PT 13.7 Sec. (12.2-14.9) 02/26/21 04:33 INR 1.00 (0.87-1.13) 02/26/21 04:33 Sodium 137 mmol/L (137-145) 04/10/21 14:54 Potassium 4.1 mmol/L (3.6-5.0) 04/10/21 14:54 Chloride 97.7 mmol/L (98-107) L 04/10/21 14:54 Carbon Dioxide 25 mmol/L (22-30) 04/10/21 14:54 Anion Gap 18 mmol/L 04/10/21 14:54 BUN 47 mg/dL (9-20) H 04/10/21 14:54 Creatinine 5.9 mg/dL (0.8-1.3) H 04/10/21 14:54 Estimated GFR 10 ml/min 04/10/21 14:54 BUN/Creatinine Ratio 8 % 04/10/21 14:54 Glucose 215 mg/dL (75-100) H 04/10/21 14:54 POC Glucose 227 mg/dL (70-105) H 04/10/21 21:34 Hemoglobin A1c 7.4 % (4-6) H 02/26/21 04:33 Calcium 8.5 mg/dL (8.4-10.2) 04/10/21 14:54 Phosphorus 3.40 mg/dL (2.5-4.5) 04/03/21 07:30 Magnesium 2.10 mg/dL (1.7-2.3) 02/17/21 02:24 Iron 52 ug/dL (49-181) 03/30/21 05:11 TIBC 203 mcg/dL (250-450) L 03/30/21 05:11 Ferritin 70.9 ng/mL (30.0-300.0) 03/30/21 05:11 Total Bilirubin 0.60 mg/dL (0.1-1.2) 04/05/21 07:46 Direct Bilirubin 0.3 mg/dL (0-0.2) H 03/14/21 07:24 Indirect Bilirubin 0.3 mg/dL 03/14/21 07:24 AST 34 units/L (5-40) 04/05/21 07:46 ALT 23 units/L (7-56) 04/05/21 07:46 Alkaline Phosphatase 183 units/L (35-129) H 04/05/21 07:46 Ammonia 68.0 umol/L (25-60) H 04/05/21 07:46 Total Creatine Kinase 86 units/L (55-170) 02/17/21 02:24 Total Protein 5.8 g/dL (6.3-8.2) L 04/05/21 07:46 Albumin 2.5 g/dL (3.9-5) L 04/05/21 07:46 Albumin/Globulin Ratio 0.8 % 04/05/21 07:46 Vitamin B12 1583 pg/mL (211-911) H 03/30/21 05:11 Folate 10.11 ng/mL (7.3-26.0) 03/30/21 05:11 TSH 0.986 mlU/mL (0.270-4.200) 02/17/21 02:24 Urine Color Yellow (Yellow) 02/17/21 Unknown Urine Turbidity Clear (Clear) 02/17/21 Unknown Urine pH 6.0 (5.0-7.0) 02/17/21 Unknown Ur Specific Cope 1.012 (1.003-1.030) 02/17/21 Unknown Urine Protein 100 mg/dl mg/dL (Negative) 02/17/21 Unknown Urine Glucose (UA) >=500 mg/dL (Negative) 02/17/21 Unknown Urine Ketones Neg mg/dL (Negative) 02/17/21 Unknown Urine Blood Neg (Negative) 02/17/21 Unknown Urine Nitrite Neg (Negative) 02/17/21 Unknown Urine Bilirubin Neg (Negative) 02/17/21 Unknown Urine Urobilinogen < 2.0 mg/dL (<2.0) 02/17/21 Unknown Ur Leukocyte Esterase Neg (Negative) 02/17/21 Unknown Urine WBC (Auto) 2.0 /HPF (0.0-6.0) 02/17/21 Unknown Urine RBC (Auto) 2.0 /HPF (0.0-6.0) 02/17/21 Unknown U Epithel Cells (Auto) < 1.0 /HPF (0-13.0) 02/17/21 Unknown Urine Bacteria (Auto) 1+ /HPF (Negative) 02/17/21 Unknown Salicylates < 0.3 mg/dL (2.8-20.0) L 02/17/21 02:24 Acetaminophen 5.0 ug/mL (10.0-30.0) L 02/17/21 02:24 Coronavirus (PCR) Positive (Negative) A 04/10/21 Unknown Hepatitis A IgM Ab Non-reactive (NonReactive) 02/28/21 12:37 Hep Bs Antigen Non-reactive (Negative) 03/28/21 18:57 Hep B Core IgM Ab Non-reactive (NonReactive) 02/28/21 12:37 Hepatitis C Antibody Non-reactive (NonReactive) 02/28/21 12:37 Blood Type A POSITIVE 03/07/21 06:31 Antibody Screen Negative 03/07/21 06:31 Crossmatch See Detail 03/07/21 06:31 Sr/IV: Voiding Method Incontinent Active Medications - Current Medications Current Medications: Generic Name Dose Route Start Last Admin Trade Name Freq PRN Reason Stop Dose Admin Acetaminophen 650 mg 02/18/21 22:38 03/09/21 13:15 Acetaminophen 325 Mg Tab PO 650 mg Q4H PRN Administration Pain MILD(1-3)/Fever >100.5/MOLINA Albuterol 2.5 mg 02/18/21 22:38 Albuterol 2.5 Mg/3 Ml Nebu IH Q3HRT PRN Shortness Of Breath Allopurinol 100 mg 02/20/21 10:00 04/10/21 09:43 Allopurinol 100 Mg Tab PO 100 mg QDAY LEYLA Administration Calcium Acetate 1,334 mg 02/20/21 08:30 04/10/21 17:24 Calcium Acetate 667 Mg Cap PO 1,334 mg TIDWM LEYLA Administration Dextrose 50 ml 03/29/21 12:00 Dextrose 50% In Water (25gm) 50 Ml Syringe IV Q30MIN PRN HYPOGLYCEMIA Protocol Diphenhydramine HCl 25 mg 02/23/21 09:10 03/24/21 09:01 Diphenhydramine 25 Mg Cap PO 25 mg BID PRN Administration Itching Famotidine 20 mg 02/19/21 10:00 04/10/21 09:43 Famotidine 20 Mg Tab PO 20 mg QAM LEYLA Administration Hydralazine HCl 10 mg 02/18/21 22:56 Hydralazine 20 Mg/1 Ml Inj IV Q6H PRN htn Hydroxyzine HCl 25 mg 03/24/21 10:38 Hydroxyzine Hcl 25 Mg Tab PO Q6H PRN Itching Sodium Chloride 100 mls @ 999 mls/hr 02/19/21 09:06 Nacl 0.9% IV OLIVIA PRN Hypotension Insulin Glargine 16 units 03/23/21 09:00 04/10/21 22:04 Insulin Glargine 100 Units/Ml SUB-Q 16 units QHS LEYLA Administration Insulin Human Lispro 0 unit 06/19/21 22:00 04/10/21 22:05 Insulin Lispro 100 Unit/Ml SUB-Q 4 unit ACHS LEYLA Administration Protocol Lactulose 20 gm 03/09/21 18:00 04/11/21 05:17 Lactulose 20 Gm/30 Ml Oral Liqd PO 20 gm Q6HR LEYLA Administration Ondansetron HCl 4 mg 02/18/21 22:38 02/28/21 12:32 Ondansetron 4 Mg/2 Ml Inj IV 4 mg Q8H PRN Administration Nausea And Vomiting Polyethylene Glycol 17 gm 02/24/21 12:08 02/24/21 12:47 Polyethylene Glycol 3350 17 Gm Powder PO 17 gm QDAY PRN Administration Constipation Propranolol HCl 20 mg 02/20/21 10:00 04/10/21 22:06 Propranolol 10 Mg Tab PO 20 mg BID LEYLA Administration Rifaximin 550 mg 03/10/21 12:00 04/10/21 22:06 Rifaximin 550 Mg Tab PO 550 mg BID LEYLA Administration Sodium Chloride 10 ml 02/19/21 10:00 04/10/21 22:06 Sodium Chloride 0.9% 10 Ml Flush Syringe IV Not Given BID LEYLA Sodium Chloride 10 ml 02/18/21 22:38 Sodium Chloride 0.9% 10 Ml Flush Syringe IV PRN PRN LINE FLUSH Zolpidem Tartrate 5 mg 02/24/21 09:54 03/08/21 23:25 Zolpidem 5 Mg Tab PO 5 mg QHS PRN Administration Sleep Nutrition/Malnutrition Assess - Dietary Evaluation Nutrition/Malnutrition Findings: Nutrition Notes Start: 02/19/21 10:48 Freq: Status: Active Protocol: Document 04/05/21 12:26 (Rec: 04/05/21 12:28 [email or web address]) Nutrition Notes Initial or Follow up Reassessment Current Diagnosis CKD (stage V CKD),Diabetes Other Pertinent Diagnosis COVID-19 (+), hepatic encephalopathy, ascites Current Diet Renal/Consistent CHO + Nepro once daily Labs/Tests POC BG [phone] Pertinent Medications Reviewed Height 5 ft 11 in Weight 70.8 kg [place] Body Weight (kg) 78.18 BMI 21.7 Weight Status Appropriate Subjective/Other Information FU For intakes. Pt did not answer phone x2. Pt eating 100 % of meals. Percent of energy/protein needs met: 100%/100% Burn Absent Trauma Absent Current % PO Good (75-100%) Minimum of two criteria Yes Body Fat Depletion Mild depletion (non-severe) Fluid Accumulation Mild (non-severe) #2 Nutrition Diagnosis Increased nutrient needs ( specify in comment below) Diagnosis Progress(for reassessment Continues documentation) #1 Nutrition Diagnosis Malnutrition Diagnosis Progress(for reassessment Continues documentation) Is patient on ventilator? No Is Patient Ambulatory and/or Out of Bed No REE-([facility]-confined to bed) [phone] Calculation Used for Recommendations [facility] Additional Notes Pro needs >1.2g/kg/day Fluid needs 1-1.5L/day Nutrition Intervention Change Diet Order: Continue current Add Supplement/Snack (indicate name/kcal Nepro daily /protein ) Provides kCal: 425 Provides Protein (gm) 19 Goal #1 PO intake of meals plus ONS to meet at least 75% energy and pro needs Goal #2 Wound healing Follow-Up By: 04/12/21 Additional Comments FU for stable intakes and ONS tolerance
[2021-04-11] MEDS: INSULIN LISPRO 100 UNIT/ML SUB-Q SCH ×4 (08:05→22:57)
[2021-04-11] MEDS: CALCIUM ACETATE 667 MG CAP PO SCH ×3 (08:26→17:52)
--- NOTE | 2021-04-11 09:18 | Progress Note ---
Assessment and Plan 1. ESRD: Patient is on maintenance hemodialysis three times a week, MWF schedule. Meds dosage based on GFR. Missed HD 02/18. Hemodialysis: 02/19, 02/20, 02/22, 02/25, 02/27, 03/01, 03/04, 03/06, 03/08, 03/11, 03/13, 03/15, 03/18, 03/20, 03/22, 03/25, 03/27, 03/29, 04/01, 04/03, 04/05, 04/08, 04/10. 04/10: After about 30 min of treatment the fistula site was infiltrated as patient was keep moving his arm. The treatment was stopped. 2. FEN: Monitor lytes and volume status. 3. Anemia, POA: 2/2 ESRD and Liver disease. Epogen with HD. IV Iron 125 mg 04/05. PRBC as needed. 4. Cirrhosis with h/o hepatic encephalopathy: Lactulose and Rifaximin. Monitor. 5. DM type 2: SSI. Monitor. 6. Thrombocytopenia, POA. 7. Hypotension: BP is better. Await placement. Subjective: Patient was seen and examined at the bedside. General Appearance: General appearance: well-developed, appears stated age, not in distress HEENT: ATNC, pupils equal Neck: trachea midline Respiratory: ctab Heart: regular, S1S2, no murmur Abdomen: soft, bowel sounds heard, slightly distended, not tender Integumentary: no rash, warm and dry Neurologic: lethargic, not following any command Ext: no edema, R BKA Hemodialysis access: R arm AVF Subjective Date of service: 04/11/21 Principal diagnosis: Acute encephalopathy Objective - Vital Signs Vital signs: Vital Signs - 12hr 04/10/21 04/10/21 22:00 22:06 Pulse Rate 71 Blood Pressure 134/68 O2 Sat by Pulse 100 Oximetry - Lab 04/10/21 14:54 04/10/21 14:54 Most recent lab results Calcium 8.5 mg/dL (8.4-10.2) 04/10/21 14:54 Phosphorus 3.40 mg/dL (2.5-4.5) 04/03/21 07:30 Magnesium 2.10 mg/dL (1.7-2.3) 02/17/21 02:24 Medications & Allergies - Medications Allergies/Adverse Reactions: Allergies No Known Allergies Allergy (Verified 02/16/21 18:26) Home Medications: Home Medications Medication Instructions Recorded Confirmed Last Taken Type Calcium Acetate [Phoslo] 1,334 mg PO TIDWM #90 capsule 03/01/21 Unknown Rx Famotidine [Pepcid] 20 mg PO QAM #30 tablet 03/01/21 Unknown Rx Lactulose [Cephulac] 20 gm PO Q8HR 30 Days 03/01/21 Unknown Rx Lispro Insulin [HumaLOG] See Protocol SQ ACHS 30 Days 03/01/21 Unknown Rx allopurinoL [Zyloprim] 100 mg PO QDAY #30 tablet 03/01/21 Unknown Rx propranoloL [Inderal] 20 mg PO BID #60 tablet 03/01/21 Unknown Rx Active Medications: Generic Name Dose Route Start Last Admin Trade Name Freq PRN Reason Stop Dose Admin Acetaminophen 650 mg 02/18/21 22:38 03/09/21 13:15 Acetaminophen 325 Mg Tab PO 650 mg Q4H PRN Administration Pain MILD(1-3)/Fever >100.5/MOLINA Albuterol 2.5 mg 02/18/21 22:38 Albuterol 2.5 Mg/3 Ml Nebu IH Q3HRT PRN Shortness Of Breath Allopurinol 100 mg 02/20/21 10:00 04/10/21 09:43 Allopurinol 100 Mg Tab PO 100 mg QDAY LEYLA Administration Calcium Acetate 1,334 mg 02/20/21 08:30 04/11/21 08:26 Calcium Acetate 667 Mg Cap PO 1,334 mg TIDWM LEYLA Administration Dextrose 50 ml 03/29/21 12:00 Dextrose 50% In Water (25gm) 50 Ml Syringe IV Q30MIN PRN HYPOGLYCEMIA Protocol Diphenhydramine HCl 25 mg 02/23/21 09:10 03/24/21 09:01 Diphenhydramine 25 Mg Cap PO 25 mg BID PRN Administration Itching Famotidine 20 mg 02/19/21 10:00 04/10/21 09:43 Famotidine 20 Mg Tab PO 20 mg QAM LEYLA Administration Hydralazine HCl 10 mg 02/18/21 22:56 Hydralazine 20 Mg/1 Ml Inj IV Q6H PRN htn Hydroxyzine HCl 25 mg 03/24/21 10:38 Hydroxyzine Hcl 25 Mg Tab PO Q6H PRN Itching Sodium Chloride 100 mls @ 999 mls/hr 02/19/21 09:06 Nacl 0.9% IV OLIVIA PRN Hypotension Insulin Glargine 16 units 03/23/21 09:00 04/10/21 22:04 Insulin Glargine 100 Units/Ml SUB-Q 16 units QHS LEYLA Administration Insulin Human Lispro 0 unit 03/09/21 22:00 04/11/21 08:05 Insulin Lispro 100 Unit/Ml SUB-Q Not Given ACHS [facility] Protocol Lactulose 20 gm 03/09/21 18:00 04/11/21 05:17 Lactulose 20 Gm/30 Ml Oral Liqd PO 20 gm Q6HR LEYLA Administration Ondansetron HCl 4 mg 02/18/21 22:38 02/28/21 12:32 Ondansetron 4 Mg/2 Ml Inj IV 4 mg Q8H PRN Administration Nausea And Vomiting Polyethylene Glycol 17 gm 02/24/21 12:08 02/24/21 12:47 Polyethylene Glycol 3350 17 Gm Powder PO 17 gm QDAY PRN Administration Constipation Propranolol HCl 20 mg 02/20/21 10:00 04/10/21 22:06 Propranolol 10 Mg Tab PO 20 mg BID LEYLA Administration Rifaximin 550 mg 03/10/21 12:00 04/10/21 22:06 Rifaximin 550 Mg Tab PO 550 mg BID LEYLA Administration Sodium Chloride 10 ml 02/19/21 10:00 04/10/21 22:06 Sodium Chloride 0.9% 10 Ml Flush Syringe IV Not Given BID LEYLA Sodium Chloride 10 ml 02/18/21 22:38 Sodium Chloride 0.9% 10 Ml Flush Syringe IV PRN PRN LINE FLUSH Zolpidem Tartrate 5 mg 02/24/21 09:54 03/08/21 23:25 Zolpidem 5 Mg Tab PO 5 mg QHS PRN Administration Sleep
[2021-04-11] MEDS: RIFAXIMIN 550 MG TAB PO SCH ×2 (10:00→22:56)
[2021-04-11] MEDS: FAMOTIDINE 20 MG TAB PO SCH (10:00)
[2021-04-11] MEDS: PROPRANOLOL 10 MG TAB PO SCH ×2 (10:00→22:56)
[2021-04-11] MEDS: allopurinoL 100 MG TAB PO SCH (10:00)
--- NOTE | 2021-04-11 10:27 | Discharge Summary ---
Providers - Providers Date of Admission: 02/19/21 16:35 Attending physician: RONNIE PIERRE MD 02/17/21 02:42 Consult to Case Management [CONS] Stat Services Needed at Discharge: Technical Sales Support Specialist Notified:: awaiting call back 02/18/21 22:13 Consult to Physician [CONS] Urgent Comment: Dr. Edwards spoke with Dr. Pool @ [id number] Consulting Provider: MOLLY TOVAR Physician Instructions: Reason For Exam: esrd 02/18/21 22:40 Consult to Dietitian/Nutrition [CONS] Routine Physician Instructions: Reason For Exam: Reason for Consult: Diet education 02/19/21 07:34 Consult to Wound/ET Nurse [CONS] Routine Reason For Exam: wound eval 02/22/21 14:04 Consult to Physician [CONS] Routine Comment: Consulting Provider: NEFTALI TRIVEDI Physician Instructions: Reason For Exam: Right hip pain, recent hip fracture post surg 02/26/21 14:06 Occupational Therapy Evaluate and Treat [CONS] Routine Comment: Reason For Exam: Eval & Treat Physical Therapy Evaluation and Treat [CONS] Routine Comment: Reason For Exam: Eval & Treat 02/26/21 22:37 Consult to Wound/ET Nurse [CONS] Routine Reason For Exam: wound eval 02/28/21 23:29 Consult to Wound/ET Nurse [CONS] Routine Reason For Exam: puss coming out between scrotum and penis 03/20/21 22:39 Consult to Wound/ET Nurse [CONS] Routine Reason For Exam: wound eval Primary care physician: CREDIT ADMINISTRATION OFFICER Hospitalization Reason for admission: AMS Condition: Fair Hospital course: 55 YO Male with ESRD on HD, Noncompliance with outpatient dialysis, Anemia, HBV, Chronic Liver Disease, Cirrhosis complicated by Esophageal Varices, HTN, Debility, DM presents to ED with confusion with diminished cognition. Patient family report the patient was "not acting like himself" and found to have worsening confusion over the past 2 days. In the ER the patient was found to have hepatic encephalopathy complicated by diminished cognition, end-stage renal disease in need of urgent dialysis, as well as uncontrolled diabetes, and acidosis. Nephrology team consulted in ED and patient was then admitted for further evaluation and Mx. 02/19: Resume dialysis will adjust insulin for better coverage. Very poor prognosis considering poor medical compliance. Agree with hospice recommendation. Will obtain wound care to continue to manage. Monitor anemia as patient was pretty anemic during the last hospitalization. Required transfusion. 02/20: Continues to undergo dialysis no change in mental status noted. Tolerating medications. Blood sugar mildly elevated adjusted insulin yesterday when awake for the patient received a dose today and if still elevated will adjust. Again case management is working on discharge plan for this patient as he is pending placement 02/21 patient complains of right hip pain. He said he fell few weeks ago and is concerned about another fracture. He had a fracture about 8 weeks ago and had surgery. Will obtain X ray right hip. Patient pending placement. 02/22 Patient seen in Dialysis Unit. He states hip pain improved. No other complaints. Right hip X ray done yesterday report read may be healing fracture or acute fracture. Will discuss with Orthopedic Surgeon Patient pending placement 02/23 Less hip pain. Today complains of generalized itching. Will start Benadryl po prn. Orthopedic consulted to evaluate right hip. Patient pending placement 02/24 Less hip pain. Generalized itching now resolved. Orthopedic consulted to evaluate right hip. He complains of sleeplessness. Will give Ambien prn Patient pending placement 02/25 Patient requested DNR status yesterday. I discussed with him and he signed forms. He also complains of worsening abdominal distension and requested tapping, Will order paracentesis. Right hip evaluated by Dr. Trivedi and conservative management recommended. 02/26: Plan for paracentesis today. Need to set up dialysis as outpatient. supply chain procurement manager working on discharge planning. 02/27: Patient did not sign the consent for paracentesis yesterday so paracentesis was done today and aspirated 6.2L ascitic fluid. Patient refusing medication per RN. Getting dialysis. Patient noted slightly altered today, will place NG tube remains altered and keep refusing oral meds, order for ammonia level and will cont lactulose. 02/28: Patient appears much more calm and cooperative today. He stated that he has been refusing procedure and medication as he believes he was not in the right state of his mind. Patient acknowledges the importance of being compliant and he promises that he will take the medications as he will be given. Discharge planning per case management as patient would need outpatient dialysis center set up and personal prison set up. 03/01/21: Patient has correction setting but according to case sealer no available RN to accept the patient till Thursday. Continue supportive care. Discharge pending on placement. 03/02/21 -03/04/21: Discharge pending on placement, continue to monitor clinically. Continue current management and plan and supportive care. Patient need SNF placement. 03/05/2021; Awaiting SNF placement for discharge. Prognosis is very poor. Patient is nonresponsive. I try to reach to his son over the phone but could not get in touch. Patient is appropriate for hospice care. 03/06/2021; patient is awaiting SNF placement. Patient was alert and oriented. No confusion. Patient is stable to be discharged back to SNF. 03/07/2021; patient has hemoglobin of 6.8 this morning. A unit of blood ordered. Will monitor H&H. Nephrology is following for dialysis. 03/08/2021; patient's hemoglobin was 6.8 yesterday and transfused a unit of blood. I ordered yesterday to do posttransfusion H&H and was not done. CBC was ordered to be done this morning but was not done. COVID-19 test was done on 03/06 and positive. Nephrology is following the patient for his dialysis. Plan is to discharge him to SNF. Will follow with case management because patient is Covid positive. 03/09/2021; patient's repeat Covid test on 03/08/2021 was positive. Patient is pending for SNF Placement. Patient had hypoglycemia yesterday and patient was placed on Lantus and his sliding scale adjusted to high dose. Will monitor and adjust as needed. 03/10/2021; pending SNF placement. Covid test was positive on and . 03/11/2021; patient has hepatic encephalopathy and his ammonia level is very high, patient is currently on lactulose and rifaximin. Ammonia level is trending down. Nephrology is following for dialysis. Patient has positive Cov id test last one was on 03/08, that makes placement difficult. Continue with case management. 03/12: Still awaiting placement, discussed with nursing staff to monitor mental status changes. Will check ammonia level. Continue to adjust blood sugar. Complicated by COVID POSITIVELY. Awaiting placement for the patient. Also dialysis chair time. I have discussed with case management as my understanding was that patient was to go for hospice but this plan appears to have changed possibly not clear to me at this time 03/13: Continue supportive care crush medications that can be crushed. Ammonia level is elevated but not as elevated as previously. Continue lactulose advised nursing staff that this should be given as ordered to communicate with the night team also. Unfortunately when the patient gets better he refuses his lactulose. I truly believe that we should strongly consider palliative care for this patient but nevertheless if he wants to continue dialysis and will be compliant with his medications this is definitely an option can be pursued. Aspiration precautions monitor hemoglobin and platelets. 03/14: Patient seen and examined, more awake today. Continue supportive care, patient was made DNR wade, signed the form today after confirming the patient and also the physician. Monitor for fever. AWAITING PLACEMENT. poor prognosis 03/15/21 Patient is seen and examined. Lab and medication reviewed. Patient denied any chest pain or shortness of breath. Patient is more awake alert today. Patient is getting them hemodialysis today. Continue current management. Awaiting placement. 03/16/21 patient seen and examined. Lab and medication reviewed. Patient feels better. Hemoglobin 8.2 and hematocrit 23.9. Complained of pain in the butt. No other complain. Continue current management and supportive care. Patient is waiting for placement. 03/17: Patient remains with poor prognosis refusing dietary intake. Again discussed hospice and palliative care management considering his current medical condition and declining poor prognostic factors. Discussed with nursing staff patient will continue with lactulose had refused this morning but did take it yesterday. Continue aspiration precautions. Discussed the importance of taking the medication the patient verbalized understanding 03/18: Patient undergoing HD discharge planning ongoing discussed with case management team. Covid test ordered today for placement purposes. 03/19/2021; Covid test was ordered and result is pending. Pending placement. 03/20/2021; patient's Covid test was positive again on 03/20/2021. Pending placement. 03/21/2021. Patient cooperative no acute distress at this time. Complains of loose stool diarrhea. Still awaiting placement. Unable to find hemodialysis placement 03/22/2021. Patient last Covid test was positive however initial test was greater than 14 days ago. Patient is no longer infected. Unable to find hemodialysis line at present. Patient being evaluated for [facility]. 03/23/2021. Patient continues to state he feels good much better at this time. Resting comfortably. No distress noted. Still awaiting hemodialysis center. 03/24/2021 patient with flat mood discussed about depression. Resting comfortably watching TV. 03/25/2021. Patient denies depression at this time. Complains of itching all over. When am i getting out of here 03/26/2021. Case management reports patient is still awaiting hemodialysis placement 03/27/2021. Case management reports patient is still awaiting hemodialysis placement. Patient is on maintenance hemodialysis three times a week, MWF schedule. Cont. Lactulose and Rifaximin. Epogen with HD. 03/28/2021. Case management reports patient is still awaiting hemodialysis placement. 03/29/2021. Plan is for the patient to go to [facility] and awaiting on hemodialysis arrangements. [facility] and does not have a bed available. Covid test ordered. We will continue to follow up with case management on discharge planning. 03/30/2021. No new developments. Await hemodialysis placement and potential transfer to [facility]. 03/31/2021. No new developments. Await hemodialysis placement and potential transfer to [facility]. 04/03/2021 Waiting for transfer to retirement facility 04/04/2021 Waiting for transfer to retirement facility 04/05/2021 Undergoing hemodialysis during making examination Waiting for placement 04/06/2021 Waiting for placement 04/07/2021 Waiting for placement 04/08/2021 Waiting for placement 04/09: Patient seen and examined a little bit lethargic otherwise no new changes. Awaiting placement noted thrombocytopenia continue to monitor. Discussed with case management and Nursing staff. 04/10: Thrombocytopenia persist, continue to monitor. Still with lethargy. Continue to monitor, Aspiration precautions. Continue with HD 04/11: Discussed with case management patient may possibly have a HD time today and will be able to be discharged unfortunately I think patient has a really poor prognosis considering his liver failure and my recommendation remains for hospice management to be considered outpatient. A/p -- Hepatic encephalopathy due to hepatic cirrhosis cont lactulose, Neuro check, seizure precaution, aspiration precaution, fall precautions, continue to monitor. -- End stage renal disease Nephrology team consulted, strict I's/O, monitor urine output every shift, dialysis as per renal team, avoid nephrotoxic agents. --Metabolic Acidosis Nephrology team consulted, dialysis as per renal team. --Hyponatremia Monitor BMP, monitor fluid balance. -- Hyperammonemia Continue lactulose --Diabetes mellitus with hyperglycemia Consistent carb diet, SSI -- hyperkalemia, Improvement with dialysis --Ascitis, s/p paracentesis drained 6.2l of ascitic fluid --Sacral wound, cont wound care -- Moderate Protein Calorie Malnutrition, nutrition consulted --Noncompliance, counseled for medication compliance -- Thrombocytopenia --DVT Px, SCD --DNR code status --Disposition: needs placement, CM waiting for placement -- Hepatic encephalopathy -Patient alert and oriented x3. due to hepatic cirrhosis has resolved cont lactulose, Neuro check, seizure precaution, aspiration precaution, fall precautions, continue to monitor. -Diarrhea resolved was secondary to lactulose. Patient is alert no encephalopathy. -- End stage renal disease Nephrology team consulted, strict I's/O, monitor urine output every shift, dialysis as per renal team, avoid nephrotoxic agents. Await dialysis center. Still no dialysis center. We will dialyze as indicated. --Metabolic Acidosis Nephrology team consulted, dialysis as per renal team. --Hyponatremia Monitor BMP, monitor fluid balance.-Does not require to be checked today we will check every other day now. -- Hyperammonemia Continue lactulose --Pruritus Add Atarax most likely secondary to liver failure --Diabetes mellitus with hyperglycemia Consistent carb diet, SSI -- hyperkalemia, Improvement with dialysis --Ascites, s/p paracentesis drained 6.2l of ascitic fluid -no further ascites at this time. --Sacral wound, pain control continue local wound care. -- Moderate Protein Calorie Malnutrition, nutrition consulted --Noncompliance, counseled for medication compliance --Depression discussed about depression and initiation of Zoloft Waiting for transfer to retirement facility Disposition: 51 HOSPICE[facility]MEDICAL FACILITY Final Discharge Diagnosis (Prints w/discharge instructions): Hepatic encephalopathy Time spent for discharge: 35 MINS Core Measure Documentation - Palliative Care Palliative Care/ Comfort Measures: Not Applicable - Core Measures Any of the following diagnoses?: none Exam - Physical Exam Narrative exam: VITAL SIGNS: Reviewed. GENERAL: The patient appears normally developed, awake lying down in a semiprone position pale, vital signs as documented. HEAD: No signs of head trauma. EYES: Pupils are equal. Extraocular motions intact. Icteric sclera-Jaundice EARS: Hearing grossly intact. MOUTH: Oropharynx is normal. NECK: No adenopathy, no JVD. CHEST: Chest with diminished breath sounds bilaterally. No wheezes, rales, or rhonchi. CARDIAC: Regular rate and rhythm. S1 and S2, without murmurs, gallops, or rubs. VASCULAR: No Edema. Peripheral pulses normal and equal in all extremities. ABDOMEN: Soft, non tender and non distended. No rebound or guarding, and no masses palpated. Bowel Sounds normal. MUSCULOSKELETAL: Right BKA extremities without clubbing, cyanosis or edema. NEUROLOGIC EXAM: Lethargic and stuporous. No focal sensory or strength deficits. PSYCHIATRIC: Unable to clearly examine SKIN: Jaundice detail exam as documented in skin assessment - Constitutional Vitals: Temp Pulse Resp BP Pulse Ox 97.9 F 71 16 134/68 100 04/10/21 20:42 04/10/21 22:06 04/10/21 20:42 04/10/21 22:06 04/10/21 22:00 Plan Activity: advance as tolerated, fall precautions Diet: renal Special Instructions: restrict fluid intake to (1000CC/DAY), record daily weights, record daily BP diary Follow up with: MARY LOU RED MD [Staff Physician] - 7 Days PRIMARY CARE, [Primary Care Provider] - 3-5 Days TIP ESCOBAR MD [Staff Physician] - 7 Days Prescriptions: Lactulose [Cephulac] 20 gm PO Q8HR 30 Days Lispro Insulin [HumaLOG] See Protocol SQ ACHS 30 Days propranoloL [Inderal] 20 mg PO BID #60 tablet Famotidine [Pepcid] 20 mg PO QAM #30 tablet Calcium Acetate [Phoslo] 1,334 mg PO TIDWM #90 capsule allopurinoL [Zyloprim] 100 mg PO QDAY #30 tablet
[2021-04-11] MEDS: INSULIN GLARGINE 100 UNITS/ML SUB-Q SCH (22:56)
[2021-04-12] MEDS: LACTULOSE 20 GM/30 ML ORAL LIQD PO SCH ×3 (06:00→17:14)
[2021-04-12 07:18] LABS: Hematocrit 25.1 % (35.5-45.6); Hemoglobin 8.3 gm/dl (11.8-15.2); Mean Corpuscular HGB Conc 33 % (32-34); Mean Corpuscular Volume 93 fl (84-94); Platelet Count 105 K/mm3 (140-440); Red Blood Count 2.71 M/mm3 (3.65-5.03)
[2021-04-12 07:22] LABS: Red Cell Distribution Width 20.1 % (13.2-15.2)
[2021-04-12 07:36] LABS: Calcium 9.4 mg/dL (8.4-10.2)
--- NOTE | 2021-04-12 08:25 | Progress Note ---
Assessment and Plan Assessment and plan: 55 YO Male with ESRD on HD, Noncompliance with outpatient dialysis, Anemia, HBV, Chronic Liver Disease, Cirrhosis complicated by Esophageal Varices, HTN, Debility, DM presents to ED with confusion with diminished cognition. Patient family report the patient was "not acting like himself" and found to have worsening confusion over the past 2 days. In the ER the patient was found to have hepatic encephalopathy complicated by diminished cognition, end-stage renal disease in need of urgent dialysis, as well as uncontrolled diabetes, and acidosis. Nephrology team consulted in ED and patient was then admitted for further evaluation and Mx. A/p -- Hepatic encephalopathy due to hepatic cirrhosis cont lactulose, Neuro check, seizure precaution, aspiration precaution, fall precautions, continue to monitor. -- End stage renal disease Nephrology team consulted, strict I's/O, monitor urine output every shift, dialysis as per renal team, avoid nephrotoxic agents. --Metabolic Acidosis Nephrology team consulted, dialysis as per renal team. --Hyponatremia Monitor BMP, monitor fluid balance. -- Hyperammonemia Continue lactulose --Diabetes mellitus with hyperglycemia Consistent carb diet, SSI -- hyperkalemia, Improvement with dialysis --Ascitis, s/p paracentesis drained 6.2l of ascitic fluid --Sacral wound, cont wound care -- Moderate Protein Calorie Malnutrition, nutrition consulted --Noncompliance, counseled for medication compliance -- Thrombocytopenia --DVT Px, SCD --DNR code status --Disposition: needs placement, CM waiting for placement -- Hepatic encephalopathy -Patient alert and oriented x3. due to hepatic cirrhosis has resolved cont lactulose, Neuro check, seizure precaution, aspiration precaution, fall precautions, continue to monitor. -Diarrhea resolved was secondary to lactulose. Patient is alert no encephalopathy. -- End stage renal disease Nephrology team consulted, strict I's/O, monitor urine output every shift, dialysis as per renal team, avoid nephrotoxic agents. Await dialysis center. Still no dialysis center. We will dialyze as indicated. --Metabolic Acidosis Nephrology team consulted, dialysis as per renal team. --Hyponatremia Monitor BMP, monitor fluid balance.-Does not require to be checked today we will check every other day now. -- Hyperammonemia Continue lactulose --Pruritus Add Atarax most likely secondary to liver failure --Diabetes mellitus with hyperglycemia Consistent carb diet, SSI -- hyperkalemia, Improvement with dialysis --Ascites, s/p paracentesis drained 6.2l of ascitic fluid -no further ascites at this time. --Sacral wound, pain control continue local wound care. -- Moderate Protein Calorie Malnutrition, nutrition consulted --Noncompliance, counseled for medication compliance --Depression discussed about depression and initiation of Zoloft [facility] 02/19: Resume dialysis will adjust insulin for better coverage. Very poor prognosis considering poor medical compliance. Agree with hospice recommendation. Will obtain wound care to continue to manage. Monitor anemia as patient was pretty anemic during the last hospitalization. Required transfusion. 02/20: Continues to undergo dialysis no change in mental status noted. Tolerating medications. Blood sugar mildly elevated adjusted insulin yesterday when awake for the patient received a dose today and if still elevated will adjust. Again case management is working on discharge plan for this patient as he is pending placement 02/21 patient complains of right hip pain. He said he fell few weeks ago and is concerned about another fracture. He had a fracture about 8 weeks ago and had surgery. Will obtain X ray right hip. Patient pending placement. 02/22 Patient seen in Dialysis Unit. He states hip pain improved. No other complaints. Right hip X ray done yesterday report read may be healing fracture or acute fracture. Will discuss with Orthopedic Surgeon Patient pending placement 02/23 Less hip pain. Today complains of generalized itching. Will start Benadryl po prn. Orthopedic consulted to evaluate right hip. Patient pending placement 02/24 Less hip pain. Generalized itching now resolved. Orthopedic consulted to evaluate right hip. He complains of sleeplessness. Will give Ambien prn Patient pending placement 02/25 Patient requested DNR status yesterday. I discussed with him and he signed forms. He also complains of worsening abdominal distension and requested nelsy ing, Will order paracentesis. Right hip evaluated by Dr. Trivedi and conservative management recommended. 02/26: Plan for paracentesis today. Need to set up dialysis as outpatient. flight operations manager working on discharge planning. 02/27: Patient did not sign the consent for paracentesis yesterday so paracentesis was done today and aspirated 6.2L ascitic fluid. Patient refusing medication per RN. Getting dialysis. Patient noted slightly altered today, will place NG tube remains altered and keep refusing oral meds, order for ammonia level and will cont lactulose. 02/28: Patient appears much more calm and cooperative today. He stated that he has been refusing procedure and medication as he believes he was not in the right state of his mind. Patient acknowledges the importance of being compliant and he promises that he will take the medications as he will be given. Discharge planning per case management as patient would need outpatient dialysis center set up and personal snf set up. 03/01/21: Patient has [facility] setting but according to supportive employment case manager no available RN to accept the patient till Thursday. Continue supportive care. Discharge pending on placement. 03/02/21 -03/04/21: Discharge pending on placement, continue to monitor clinically. Continue current management and plan and supportive care. Patient need SNF placement. 03/05/2021; Awaiting SNF placement for discharge. Prognosis is very poor. Patient is nonresponsive. I try to reach to his son over the phone but could not get in touch. Patient is appropriate for hospice care. 03/06/2021; patient is awaiting SNF placement. Patient was alert and oriented. No confusion. Patient is stable to be discharged back to SNF. 03/07/2021; patient has hemoglobin of 6.8 this morning. A unit of blood ordered. Will monitor H&H. Nephrology is following for dialysis. 03/08/2021; patient's hemoglobin was 6.8 yesterday and transfused a unit of blood. I ordered yesterday to do posttransfusion H&H and was not done. CBC was ordered to be done this morning but was not done. COVID-19 test was done on 03/06 and positive. Nephrology is following the patient for his dialysis. Plan is to discharge him to SNF. Will follow with case management because patient is Covid positive. 03/09/2021; patient's repeat Covid test on 03/08/2021 was positive. Patient is pending for SNF Placement. Patient had hypoglycemia yesterday and patient was placed on Lantus and his sliding scale adjusted to high dose. Will monitor and adjust as needed. 03/10/2021; pending SNF placement. Covid test was positive on and . 03/11/2021; patient has hepatic encephalopathy and his ammonia level is very high, patient is currently on lactulose and rifaximin. Ammonia level is trending down. Nephrology is following for dialysis. Patient has positive Covid test last one was on 03/08, that makes placement difficult. Continue with case management. 03/12: Still awaiting placement, discussed with nursing staff to monitor mental status changes. Will check ammonia level. Continue to adjust blood sugar. Complicated by COVID POSITIVELY. Awaiting placement for the patient. Also dialysis chair time. I have discussed with case management as my understanding was that patient was to go for hospice but this plan appears to have changed possibly not clear to me at this time 03/13: Continue supportive care crush medications that can be crushed. Ammonia level is elevated but not as elevated as previously. Continue lactulose advised nursing staff that this should be given as ordered to communicate with the night team also. Unfortunately when the patient gets better he refuses his lactulose. I truly believe that we should strongly consider palliative care for this patient but nevertheless if he wants to continue dialysis and will be compliant with his medications this is definitely an option can be pursued. Aspiration precautions monitor hemoglobin and platelets. 03/14: Patient seen and examined, more awake today. Continue supportive care, patient was made DNR wade, signed the form today after confirming the patient and also the physician. Monitor for fever. AWAITING PLACEMENT. poor prognosis 03/15/21 Patient is seen and examined. Lab and medication reviewed. Patient denied any chest pain or shortness of breath. Patient is more awake alert today. Patient is getting them hemodialysis today. Continue current management. Awaiting placement. 03/16/21 patient seen and examined. Lab and medication reviewed. Patient feels better. Hemoglobin 8.2 and hematocrit 23.9. Complained of pain in the butt. No other complain. Continue current management and supportive care. Patient is waiting for placement. 03/17: Patient remains with poor prognosis refusing dietary intake. Again discussed hospice and palliative care management considering his current medical condition and declining poor prognostic factors. Discussed with nursing staff patient will continue with lactulose had refused this morning but did take it yesterday. Continue aspiration precautions. Discussed the importance of taking the medication the patient verbalized understanding 03/18: Patient undergoing HD discharge planning ongoing discussed with case management team. Covid test ordered today for placement purposes. 03/19/2021; Covid test was ordered and result is pending. Pending placement. 03/20/2021; patient's Covid test was positive again on 03/20/2021. Pending placement. 03/21/2021. Patient cooperative no acute distress at this time. Complains of loose stool diarrhea. Still awaiting placement. Unable to find hemodialysis placement 03/22/2021. Patient last Covid test was positive however initial test was greater than 14 days ago. Patient is no longer infected. Unable to find hemodialysis line at present. Patient being evaluated for [facility]. 03/23/2021. Patient continues to state he feels good much better at this time. Resting comfortably. No distress noted. Still awaiting hemodialysis center. 03/24/2021 patient with flat mood discussed about depression. Resting comfortably watching TV. 03/25/2021. Patient denies depression at this time. Complains of itching all over. When am i getting out of here 03/26/2021. Case management reports patient is still awaiting hemodialysis placement 03/27/2021. Case management reports patient is still awaiting hemodialysis placement. Patient is on maintenance hemodialysis three times a week, MWF schedule. Cont. Lactulose and Rifaximin. Epogen with HD. 03/28/2021. Case management reports patient is still awaiting hemodialysis placement. 03/29/2021. Plan is for the patient to go to [facility] and awaiting on hemodialysis arrangements. [facility] and does not have a bed available. Covid test ordered. We will continue to follow up with case management on discharge planning. 03/30/2021. No new developments. Await hemodialysis placement and potential transfer to [facility]. 03/31/2021. No new developments. Await hemodialysis placement and potential transfer to [facility]. 04/03/2021 [facility]ing [facility] 04/04/2021 [facility]ing for transfer [facility] 04/05/2021 Undergoing hemodialysis during making examination Waiting for placement 04/06/2021 Waiting for placement 04/07/2021 Waiting for placement 04/08/2021 Waiting for placement 04/09: Patient seen and examined a little bit lethargic otherwise no new changes. Awaiting placement noted thrombocytopenia continue to monitor. Discussed with case management and Nursing staff. 04/10: Thrombocytopenia persist, continue to monitor. Still with lethargy. Continue to monitor, Aspiration precautions. Continue with HD 04/11: Discussed with case management patient may possibly have a HD time today and will be able to be discharged unfortunately I think patient has a really poor prognosis considering his liver failure and my recommendation remains for hospice management to be considered outpatient. Patient however wants to continue dialysis. We will continue lactulose. 04/12: Today admitted with hyperkalemia expect correction with dialysis. We will recheck BMP in a.m.. Discussed with nursing staff will continue lactulose at this time. Awaiting placement. Poor prognosis History Interval history: Patient seen and examined no acute distress. still with some lethargic. Not following any commands undergoing HD today Hospitalist Physical - Physical exam Narrative exam: VITAL SIGNS: Reviewed. GENERAL: The patient appears normally developed, awake lying down in a se miprone position undergoing HD pale, vital signs as documented. HEAD: No signs of head trauma. EYES: Pupils are equal. Extraocular motions intact. Icteric sclera-Jaundice EARS: Hearing grossly intact. MOUTH: Oropharynx is normal. NECK: No adenopathy, no JVD. CHEST: Chest with diminished breath sounds bilaterally. No wheezes, rales, or rhonchi. CARDIAC: Regular rate and rhythm. S1 and S2, without murmurs, gallops, or rubs. VASCULAR: No Edema. Peripheral pulses normal and equal in all extremities. ABDOMEN: Soft, non tender and non distended. No rebound or guarding, and no masses palpated. Bowel Sounds normal. MUSCULOSKELETAL: Right BKA extremities without clubbing, cyanosis or edema. NEUROLOGIC EXAM: Lethargic and stuporous. No focal sensory or strength deficits. PSYCHIATRIC: Unable to clearly examine SKIN: Jaundice detail exam as documented in skin assessment - Constitutional Vitals: Temp Pulse Resp BP Pulse Ox 98.6 F 73 18 125/59 100 04/11/21 16:32 04/11/21 16:32 04/11/21 16:32 04/11/21 16:32 04/11/21 22:00 General appearance: Present: no acute distress, well-nourished Results - Labs CBC & Chem 7: 04/12/21 06:54 04/12/21 06:54 Labs: Laboratory Last Values WBC 3.5 K/mm3 (4.5-11.0) L 04/12/21 06:54 RBC 2.71 M/mm3 (3.65-5.03) L 04/12/21 06:54 Hgb 8.3 gm/dl (11.8-15.2) L 04/12/21 06:54 Hct 25.1 % (35.5-45.6) L 04/12/21 06:54 MCV 93 fl (84-94) 04/12/21 06:54 MCH 31 pg (28-32) 04/12/21 06:54 MCHC 33 % (32-34) 04/12/21 06:54 RDW 20.1 % (13.2-15.2) H 04/12/21 06:54 Plt Count 105 K/mm3 (140-440) L 04/12/21 06:54 Lymph % (Auto) 18.6 % (13.4-35.0) 04/05/21 07:46 [place] % (Auto) 12.6 % (0.0-7.3) H 04/05/21 07:46 Eos % (Auto) 3.4 % (0.0-4.3) 04/05/21 07:46 Baso % (Auto) 1.0 % (0.0-1.8) 04/05/21 07:46 Lymph # (Auto) 0.7 K/mm3 (1.2-5.4) L 04/05/21 07:46 [place] # (Auto) 0.5 K/mm3 (0.0-0.8) 04/05/21 07:46 Eos # (Auto) 0.1 K/mm3 (0.0-0.4) 04/05/21 07:46 Baso # (Auto) 0.0 K/mm3 (0.0-0.1) 04/05/21 07:46 Add Manual Diff Complete 03/07/21 05:23 Total Counted 100 03/07/21 05:23 Seg Neutrophils % 64.4 % (40.0-70.0) 04/05/21 07:46 Seg Neuts % (Manual) 78.0 % (40.0-70.0) H 03/07/21 05:23 Lymphocytes % (Manual) 13.0 % (13.4-35.0) L 03/07/21 05:23 Monocytes % (Manual) 9.0 % (0.0-7.3) H 03/07/21 05:23 Nucleated RBC % Not Reportable 03/07/21 05:23 Seg Neutrophils # 2.3 K/mm3 (1.8-7.7) 04/05/21 07:46 Seg Neutrophils # Man 2.0 K/mm3 (1.8-7.7) 03/07/21 05:23 Band Neutrophils # 0.0 K/mm3 03/07/21 05:23 Lymphocytes # (Manual) 0.3 K/mm3 (1.2-5.4) L 03/07/21 05:23 Abs React Lymphs (Man) 0.0 K/mm3 03/07/21 05:23 Monocytes # (Manual) 0.2 K/mm3 (0.0-0.8) 03/07/21 05:23 Eosinophils # (Manual) 0.0 K/mm3 (0.0-0.4) 03/07/21 05:23 Basophils # (Manual) 0.0 K/mm3 (0.0-0.1) 03/07/21 05:23 Metamyelocytes # 0.0 K/mm3 03/07/21 05:23 Myelocytes # 0.0 K/mm3 03/07/21 05:23 Promyelocytes # 0.0 K/mm3 03/07/21 05:23 Blast Cells # 0.0 K/mm3 03/07/21 05:23 WBC Morphology Not Reportable 03/07/21 05:23 Hypersegmented Neuts Not Reportable 03/07/21 05:23 Hyposegmented Neuts Not Reportable 03/07/21 05:23 Hypogranular Neuts Not Reportable 03/07/21 05:23 Smudge Cells Not Reportable 03/07/21 05:23 Toxic Granulation Not Reportable 03/07/21 05:23 Toxic Vacuolation Not Reportable 03/07/21 05:23 Dohle Bodies Not Reportable 03/07/21 05:23 Pelger-Huet Anomaly Not Reportable 03/07/21 05:23 Cosme Rods Not Reportable 03/07/21 05:23 Platelet Estimate Consistent w auto 03/07/21 05:23 Clumped Platelets Not Reportable 03/07/21 05:23 Plt Clumps, EDTA Not Reportable 03/07/21 05:23 Large Platelets Not Reportable 03/07/21 05:23 Giant Platelets Not Reportable 03/07/21 05:23 Platelet Satelliting Not Reportable 03/07/21 05:23 Plt Morphology Comment Not Reportable 03/07/21 05:23 RBC Morphology Not Reportable 03/07/21 05:23 Dimorphic RBCs Not Reportable 03/07/21 05:23 Polychromasia Not Reportable 03/07/21 05:23 Hypochromasia Not Reportable 03/07/21 05:23 Poikilocytosis Not Reportable 03/07/21 05:23 Anisocytosis Few 03/07/21 05:23 Microcytosis Not Reportable 03/07/21 05:23 Macrocytosis Not Reportable 03/07/21 05:23 Spherocytes Not Reportable 03/07/21 05:23 Pappenheimer Bodies Not Reportable 03/07/21 05:23 Sickle Cells Not Reportable 03/07/21 05:23 Target Cells Not Reportable 03/07/21 05:23 Tear Drop Cells Not Reportable 03/07/21 05:23 Ovalocytes Not Reportable 03/07/21 05:23 Helmet Cells Not Reportable 03/07/21 05:23 [place] Bodies Not Reportable 03/07/21 05:23 [place] Rings Not Reportable 03/07/21 05:23 [place] Cells Not Reportable 03/07/21 05:23 Bite Cells Not Reportable 03/07/21 05:23 Crenated Cell Not Reportable 03/07/21 05:23 Elliptocytes Not Reportable 03/07/21 05:23 Acanthocytes (Spur) Not Reportable 03/07/21 05:23 Rouleaux Not Reportable 03/07/21 05:23 Hemoglobin C Crystals Not Reportable 03/07/21 05:23 Schistocytes Not Reportable 03/07/21 05:23 Malaria parasites Not Reportable 03/07/21 05:23 Samir Bodies Not Reportable 03/07/21 05:23 Hem Pathologist Commnt No 03/07/21 05:23 PT 13.7 Sec. (12.2-14.9) 02/26/21 04:33 INR 1.00 (0.87-1.13) 02/26/21 04:33 Sodium 138 mmol/L (137-145) 04/12/21 06:54 Potassium 5.2 mmol/L (3.6-5.0) H D 04/12/21 06:54 Chloride 98.6 mmol/L (98-107) 04/12/21 06:54 Carbon Dioxide 30 mmol/L (22-30) 04/12/21 06:54 Anion Gap 15 mmol/L 04/12/21 06:54 BUN 62 mg/dL (9-20) H 04/12/21 06:54 Creatinine 7.0 mg/dL (0.8-1.3) H 04/12/21 06:54 Estimated GFR 8 ml/min 04/12/21 06:54 BUN/Creatinine Ratio 9 % 04/12/21 06:54 Glucose 107 mg/dL (75-100) H 04/12/21 06:54 POC Glucose 95 mg/dL (70-105) 04/12/21 07:49 Hemoglobin A1c 7.4 % (4-6) H 02/26/21 04:33 Calcium 9.4 mg/dL (8.4-10.2) 04/12/21 06:54 Phosphorus 3.40 mg/dL (2.5-4.5) 04/03/21 07:30 Magnesium 2.10 mg/dL (1.7-2.3) 02/17/21 02:24 Iron 52 ug/dL (49-181) 03/30/21 05:11 TIBC 203 mcg/dL (250-450) L 03/30/21 05:11 Ferritin 70.9 ng/mL (30.0-300.0) 03/30/21 05:11 Total Bilirubin 0.60 mg/dL (0.1-1.2) 04/05/21 07:46 Direct Bilirubin 0.3 mg/dL (0-0.2) H 03/14/21 07:24 Indirect Bilirubin 0.3 mg/dL 03/14/21 07:24 AST 34 units/L (5-40) 04/05/21 07:46 ALT 23 units/L (7-56) 04/05/21 07:46 Alkaline Phosphatase 183 units/L (35-129) H 04/05/21 07:46 Ammonia 68.0 umol/L (25-60) H 04/05/21 07:46 Total Creatine Kinase 86 units/L (55-170) 02/17/21 02:24 Total Protein 5.8 g/dL (6.3-8.2) L 04/05/21 07:46 Albumin 2.5 g/dL (3.9-5) L 04/05/21 07:46 Albumin/Globulin Ratio 0.8 % 04/05/21 07:46 Vitamin B12 1583 pg/mL (211-911) H 03/30/21 05:11 Folate 10.11 ng/mL (7.3-26.0) 03/30/21 05:11 TSH 0.986 mlU/mL (0.270-4.200) 02/17/21 02:24 Urine Color Yellow (Yellow) 02/17/21 Unknown Urine Turbidity Clear (Clear) 02/17/21 Unknown Urine pH 6.0 (5.0-7.0) 02/17/21 Unknown Ur Specific [place] 1.012 (1.003-1.030) 02/17/21 Unknown Urine Protein 100 mg/dl mg/dL (Negative) 02/17/21 Unknown Urine Glucose (UA) >=500 mg/dL (Negative) 02/17/21 Unknown Urine Ketones Neg mg/dL (Negative) 02/17/21 Unknown Urine Blood Neg (Negative) 02/17/21 Unknown Urine Nitrite Neg (Negative) 02/17/21 Unknown Urine Bilirubin Neg (Negative) 02/17/21 Unknown Urine Urobilinogen < 2.0 mg/dL (<2.0) 02/17/21 Unknown Ur Leukocyte Esterase Neg (Negative) 02/17/21 Unknown Urine WBC (Auto) 2.0 /HPF (0.0-6.0) 02/17/21 Unknown Urine RBC (Auto) 2.0 /HPF (0.0-6.0) 02/17/21 Unknown U Epithel Cells (Auto) < 1.0 /HPF (0-13.0) 02/17/21 Unknown Urine Bacteria (Auto) 1+ /HPF (Negative) 02/17/21 Unknown Salicylates < 0.3 mg/dL (2.8-20.0) L 02/17/21 02:24 Acetaminophen 5.0 ug/mL (10.0-30.0) L 02/17/21 02:24 Coronavirus (PCR) Positive (Negative) A 04/10/21 Unknown Hepatitis A IgM Ab Non-reactive (NonReactive) 02/28/21 12:37 Hep Bs Antigen Non-reactive (Negative) 03/28/21 18:57 Hep B Core IgM Ab Non-reactive (NonReactive) 02/28/21 12:37 Hepatitis C Antibody Non-reactive (NonReactive) 02/28/21 12:37 Blood Type A POSITIVE 03/07/21 06:31 Antibody Screen Negative 03/07/21 06:31 Crossmatch See Detail 03/07/21 06:31 Sr/IV: Voiding Method Incontinent Active Medications - Current Medications Current Medications: Generic Name Dose Route Start Last Admin Trade Name Freq PRN Reason Stop Dose Admin Acetaminophen 650 mg 02/18/21 22:38 03/09/21 13:15 Acetaminophen 325 Mg Tab PO 650 mg Q4H PRN Administration Pain MILD(1-3)/Fever >100.5/MOLINA Albuterol 2.5 mg 02/18/21 22:38 Albuterol 2.5 Mg/3 Ml Nebu IH Q3HRT PRN Shortness Of Breath Allopurinol 100 mg 02/20/21 10:00 04/11/21 10:00 Allopurinol 100 Mg Tab PO 100 mg QDAY LEYLA Administration Calcium Acetate 1,334 mg 02/20/21 08:30 04/11/21 17:52 Calcium Acetate 667 Mg Cap PO 1,334 mg TIDWM LEYLA Administration Dextrose 50 ml 03/29/21 12:00 Dextrose 50% In Water (25gm) 50 Ml Syringe IV Q30MIN PRN HYPOGLYCEMIA Protocol Diphenhydramine HCl 25 mg 02/23/21 09:10 03/24/21 09:01 Diphenhydramine 25 Mg Cap PO 25 mg BID PRN Administration Itching Famotidine 20 mg 02/19/21 10:00 04/11/21 10:00 Famotidine 20 Mg Tab PO 20 mg QAM LEYLA Administration Hydralazine HCl 10 mg 02/18/21 22:56 Hydralazine 20 Mg/1 Ml Inj IV Q6H PRN htn Hydroxyzine HCl 25 mg 03/24/21 10:38 Hydroxyzine Hcl 25 Mg Tab PO Q6H PRN Itching Sodium Chloride 100 mls @ 999 mls/hr 02/19/21 09:06 Nacl 0.9% IV OLIVIA PRN Hypotension Insulin Glargine 16 units 03/23/21 09:00 04/11/21 22:56 Insulin Glargine 100 Units/Ml SUB-Q 16 units QHS LEYLA Administration Insulin Human Lispro 0 unit 03/09/21 22:00 04/11/21 22:57 Insulin Lispro 100 Unit/Ml SUB-Q Not Given [facility]S [facility] Protocol Lactulose 20 gm 03/09/21 18:00 04/12/21 06:00 Lactulose 20 Gm/30 Ml Oral Liqd PO 20 gm Q6HR LEYLA Administration Ondansetron HCl 4 mg 02/18/21 22:38 02/28/21 12:32 Ondansetron 4 Mg/2 Ml Inj IV 4 mg Q8H PRN Administration Nausea And Vomiting Polyethylene Glycol 17 gm 02/24/21 12:08 02/24/21 12:47 Polyethylene Glycol 3350 17 Gm Powder PO 17 gm QDAY PRN Administration Constipation Propranolol HCl 20 mg 02/20/21 10:00 04/11/21 22:56 Propranolol 10 Mg Tab PO 20 mg BID LEYLA Administration Rifaximin 550 mg 03/10/21 12:00 04/11/21 22:56 Rifaximin 550 Mg Tab PO 550 mg BID LEYLA Administration Sodium Chloride 10 ml 02/19/21 10:00 04/11/21 22:57 Sodium Chloride 0.9% 10 Ml Flush Syringe IV Not Given BID LEYLA Sodium Chloride 10 ml 02/18/21 22:38 Sodium Chloride 0.9% 10 Ml Flush Syringe IV PRN PRN LINE FLUSH Zolpidem Tartrate 5 mg 02/24/21 09:54 03/08/21 23:25 Zolpidem 5 Mg Tab PO 5 mg QHS PRN Administration Sleep Nutrition/Malnutrition Assess - Dietary Evaluation Nutrition/Malnutrition Findings: Nutrition Notes Start: 02/19/21 10:48 Freq: Status: Active Protocol: Document 04/05/21 12:26 ALISSA (Rec: 04/05/21 12:28 ALISSA [id number]) Nutrition Notes Initial or Follow up Reassessment Current Diagnosis CKD (stage V CKD),Diabetes Other Pertinent Diagnosis COVID-19 (+), hepatic encephalopathy, ascites Current Diet Renal/Consistent CHO + Nepro once daily Labs/Tests POC BG [phone] Pertinent Medications Reviewed Height 5 ft 11 in Weight 70.8 kg [place] Body Weight (kg) 78.18 BMI 21.7 Weight Status Appropriate Subjective/Other Information FU For intakes. Pt did not answer phone x2. Pt eating 100 % of meals. Percent of energy/protein needs met: 100%/100% Burn Absent Trauma Absent Current % PO Good (75-100%) Minimum of two criteria Yes Body Fat Depletion Mild depletion (non-severe) Fluid Accumulation Mild (non-severe) #2 Nutrition Diagnosis Increased nutrient needs ( specify in comment below) Diagnosis Progress(for reassessment Continues documentation) #1 Nutrition Diagnosis Malnutrition Diagnosis Progress(for reassessment Continues documentation) Is patient on ventilator? No Is Patient Ambulatory and/or Out of Bed No REE-([facility]-confined to bed) 5038.709 Calculation Used for Recommendations [facility] Additional Notes Pro needs >1.2g/kg/day Fluid needs 1-1.5L/day Nutrition Intervention Change Diet Order: Continue current Add Supplement/Snack (indicate name/kcal Nepro daily /protein ) Provides kCal: 425 Provides Protein (gm) 19 Goal #1 PO intake of meals plus ONS to meet at least 75% energy and pro needs Goal #2 Wound healing Follow-Up By: 04/12/21 Additional Comments FU for stable intakes and ONS tolerance
[2021-04-12] MEDS: INSULIN LISPRO 100 UNIT/ML SUB-Q SCH ×4 (08:27→22:21)
--- NOTE | 2021-04-12 08:51 | Progress Note ---
Assessment and Plan 1. ESRD: Patient is on maintenance hemodialysis three times a week, MWF schedule. Meds dosage based on GFR. Missed HD 02/18. Hemodialysis: 02/19, 02/20, 02/22, 02/25, 02/27, 03/01, 03/04, 03/06, 03/08, 03/11, 03/13, 03/15, 03/18, 03/20, 03/22, 03/25, 03/27, 03/29, 04/01, 04/03, 04/05, 04/08, 04/10. 2. FEN: Monitor lytes and volume status. 3. Anemia, POA: 2/2 ESRD and Liver disease. Epogen with HD. IV Iron 125 mg 04/05. PRBC as needed. 4. Cirrhosis with h/o hepatic encephalopathy: Lactulose and Rifaximin. Monitor. 5. DM type 2: SSI. Monitor. 6. Thrombocytopenia, POA. 7. Hypotension: BP is better. Await placement. Subjective: Patient was seen and examined at the bedside. General Appearance: General appearance: well-developed, appears stated age, not in distress HEENT: ATNC, pupils equal Neck: trachea midline Respiratory: ctab Heart: regular, S1S2, no murmur Abdomen: soft, bowel sounds heard, slightly distended, not tender Integumentary: no rash, warm and dry Neurologic: lethargic, not following any command Ext: no edema, R BKA Hemodialysis access: R arm AVF Subjective Date of service: 04/12/21 Principal diagnosis: Acute encephalopathy Objective - Vital Signs Vital signs: Vital Signs - 12hr 04/11/21 22:00 O2 Sat by Pulse 100 Oximetry - Lab 04/12/21 06:54 04/12/21 06:54 Most recent lab results Calcium 9.4 mg/dL (8.4-10.2) 04/12/21 06:54 Phosphorus 3.40 mg/dL (2.5-4.5) 04/03/21 07:30 Magnesium 2.10 mg/dL (1.7-2.3) 02/17/21 02:24 Medications & Allergies - Medications Allergies/Adverse Reactions: Allergies No Known Allergies Allergy (Verified 02/16/21 18:26) Home Medications: Home Medications Medication Instructions Recorded Confirmed Last Taken Type Calcium Acetate [Phoslo] 1,334 mg PO TIDWM #90 capsule 03/01/21 Unknown Rx Famotidine [Pepcid] 20 mg PO QAM #30 tablet 03/01/21 Unknown Rx Lactulose [Cephulac] 20 gm PO Q8HR 30 Days 03/01/21 Unknown Rx Lispro Insulin [HumaLOG] See Protocol SQ ACHS 30 Days 03/01/21 Unknown Rx allopurinoL [Zyloprim] 100 mg PO QDAY #30 tablet 03/01/21 Unknown Rx propranoloL [Inderal] 20 mg PO BID #60 tablet 03/01/21 Unknown Rx Active Medications: Generic Name Dose Route Start Last Admin Trade Name Freq PRN Reason Stop Dose Admin Acetaminophen 650 mg 02/18/21 22:38 03/09/21 13:15 Acetaminophen 325 Mg Tab PO 650 mg Q4H PRN Administration Pain MILD(1-3)/Fever >100.5/MOLINA Albuterol 2.5 mg 02/18/21 22:38 Albuterol 2.5 Mg/3 Ml Nebu IH Q3HRT PRN Shortness Of Breath Allopurinol 100 mg 02/20/21 10:00 04/11/21 10:00 Allopurinol 100 Mg Tab PO 100 mg QDAY LEYLA Administration Calcium Acetate 1,334 mg 02/20/21 08:30 04/11/21 17:52 Calcium Acetate 667 Mg Cap PO 1,334 mg TIDWM LEYLA Administration Dextrose 50 ml 03/29/21 12:00 Dextrose 50% In Water (25gm) 50 Ml Syringe IV Q30MIN PRN HYPOGLYCEMIA Protocol Diphenhydramine HCl 25 mg 02/23/21 09:10 03/24/21 09:01 Diphenhydramine 25 Mg Cap PO 25 mg BID PRN Administration Itching Famotidine 20 mg 02/19/21 10:00 04/11/21 10:00 Famotidine 20 Mg Tab PO 20 mg QAM LEYLA Administration Hydralazine HCl 10 mg 02/18/21 22:56 Hydralazine 20 Mg/1 Ml Inj IV Q6H PRN htn Hydroxyzine HCl 25 mg 03/24/21 10:38 Hydroxyzine Hcl 25 Mg Tab PO Q6H PRN Itching Sodium Chloride 100 mls @ 999 mls/hr 02/19/21 09:06 Nacl 0.9% IV OLIVIA PRN Hypotension Insulin Glargine 16 units 03/23/21 09:00 04/11/21 22:56 Insulin Glargine 100 Units/Ml SUB-Q 16 units QHS LEYLA Administration Insulin Human Lispro 0 unit 03/09/21 22:00 04/12/21 08:27 Insulin Lispro 100 Unit/Ml SUB-Q Not Given ACHS [facility] Protocol Lactulose 20 gm 03/09/21 18:00 04/12/21 06:00 Lactulose 20 Gm/30 Ml Oral Liqd PO 20 gm Q6HR LEYLA Administration Ondansetron HCl 4 mg 02/18/21 22:38 02/28/21 12:32 Ondansetron 4 Mg/2 Ml Inj IV 4 mg Q8H PRN Administration Nausea And Vomiting Polyethylene Glycol 17 gm 02/24/21 12:08 02/24/21 12:47 Polyethylene Glycol 3350 17 Gm Powder PO 17 gm QDAY PRN Administration Constipation Propranolol HCl 20 mg 02/20/21 10:00 04/11/21 22:56 Propranolol 10 Mg Tab PO 20 mg BID LEYLA Administration Rifaximin 550 mg 03/10/21 12:00 04/11/21 22:56 Rifaximin 550 Mg Tab PO 550 mg BID LEYLA Administration Sodium Chloride 10 ml 02/19/21 10:00 04/11/21 22:57 Sodium Chloride 0.9% 10 Ml Flush Syringe IV Not Given BID LEYLA Sodium Chloride 10 ml 02/18/21 22:38 Sodium Chloride 0.9% 10 Ml Flush Syringe IV PRN PRN LINE FLUSH Zolpidem Tartrate 5 mg 02/24/21 09:54 03/08/21 23:25 Zolpidem 5 Mg Tab PO 5 mg QHS PRN Administration Sleep
[2021-04-12] MEDS: PROPRANOLOL 10 MG TAB PO SCH ×2 (10:20→22:21)
[2021-04-12] MEDS: RIFAXIMIN 550 MG TAB PO SCH ×2 (10:22→22:21)
[2021-04-12] MEDS: FAMOTIDINE 20 MG TAB PO SCH (10:22)
[2021-04-12] MEDS: CALCIUM ACETATE 667 MG CAP PO SCH ×4 (10:22→17:12)
[2021-04-12] MEDS: allopurinoL 100 MG TAB PO SCH (10:22)
[2021-04-12] MEDS: EPOETIN ALFA-EPBX 20,000 UNIT/1 ML VIAL SUB-Q PRN (12:45)
[2021-04-12] MEDS: INSULIN GLARGINE 100 UNITS/ML SUB-Q SCH (22:20)
[2021-04-13] MEDS: LACTULOSE 20 GM/30 ML ORAL LIQD PO SCH ×4 (00:44→17:08)
[2021-04-13] MEDS: INSULIN LISPRO 100 UNIT/ML SUB-Q SCH ×4 (08:26→22:10)
[2021-04-13] MEDS: CALCIUM ACETATE 667 MG CAP PO SCH ×3 (09:20→16:41)
[2021-04-13] MEDS: PROPRANOLOL 10 MG TAB PO SCH ×2 (09:20→22:02)
[2021-04-13] MEDS: FAMOTIDINE 20 MG TAB PO SCH (09:21)
[2021-04-13] MEDS: allopurinoL 100 MG TAB PO SCH (09:21)
[2021-04-13] MEDS: RIFAXIMIN 550 MG TAB PO SCH ×2 (09:21→22:01)
--- NOTE | 2021-04-13 11:12 | Progress Note ---
Assessment and Plan Assessment and plan: 55 YO Male with ESRD on HD, Noncompliance with outpatient dialysis, Anemia, HBV, Chronic Liver Disease, Cirrhosis complicated by Esophageal Varices, HTN, Debility, DM presents to ED with confusion with diminished cognition. Patient family report the patient was "not acting like himself" and found to have worsening confusion over the past 2 days. In the ER the patient was found to have hepatic encephalopathy complicated by diminished cognition, end-stage renal disease in need of urgent dialysis, as well as uncontrolled diabetes, and acidosis. Nephrology team consulted in ED and patient was then admitted for further evaluation and Mx. A/p -- Hepatic encephalopathy due to hepatic cirrhosis cont lactulose, Neuro check, seizure precaution, aspiration precaution, fall precautions, continue to monitor. -- End stage renal disease Nephrology team consulted, strict I's/O, monitor urine output every shift, dialysis as per renal team, avoid nephrotoxic agents. --Metabolic Acidosis Nephrology team consulted, dialysis as per renal team. --Hyponatremia Monitor BMP, monitor fluid balance. -- Hyperammonemia Continue lactulose --Diabetes mellitus with hyperglycemia Consistent carb diet, SSI -- hyperkalemia, Improvement with dialysis --Ascitis, s/p paracentesis drained 6.2l of ascitic fluid --Sacral wound, cont wound care -- Moderate Protein Calorie Malnutrition, nutrition consulted --Noncompliance, counseled for medication compliance -- Thrombocytopenia --DVT Px, SCD --DNR code status --Disposition: needs placement, CM waiting for placement -- Hepatic encephalopathy -Patient alert and oriented x3. due to hepatic cirrhosis has resolved cont lactulose, Neuro check, seizure precaution, aspiration precaution, fall precautions, continue to monitor. -Diarrhea resolved was secondary to lactulose. Patient is alert no encephalopathy. -- End stage renal disease Nephrology team consulted, strict I's/O, monitor urine output every shift, dialysis as per renal team, avoid nephrotoxic agents. Await dialysis center. Still no dialysis center. We will dialyze as indicated. --Metabolic Acidosis Nephrology team consulted, dialysis as per renal team. --Hyponatremia Monitor BMP, monitor fluid balance.-Does not require to be checked today we will check every other day now. -- Hyperammonemia Continue lactulose --Pruritus Add Atarax most likely secondary to liver failure --Diabetes mellitus with hyperglycemia Consistent carb diet, SSI -- hyperkalemia, Improvement with dialysis --Ascites, s/p paracentesis drained 6.2l of ascitic fluid -no further ascites at this time. --Sacral wound, pain control continue local wound care. -- Moderate Protein Calorie Malnutrition, nutrition consulted --Noncompliance, counseled for medication compliance --Depression discussed about depression and initiation of Zoloft Waiting for transfer to detention facility 02/19: Resume dialysis will adjust insulin for better coverage. Very poor prognosis considering poor medical compliance. Agree with hospice recommendation. Will obtain wound care to continue to manage. Monitor anemia as patient was pretty anemic during the last hospitalization. Required transfusion. 02/20: Continues to undergo dialysis no change in mental status noted. Tolerating medications. Blood sugar mildly elevated adjusted insulin yesterday when awake for the patient received a dose today and if still elevated will adjust. Again case management is working on discharge plan for this patient as he is pending placement 02/21 patient complains of right hip pain. He said he fell few weeks ago and is concerned about another fracture. He had a fracture about 8 weeks ago and had surgery. Will obtain X ray right hip. Patient pending placement. 02/22 Patient seen in Dialysis Unit. He states hip pain improved. No other complaints. Right hip X ray done yesterday report read may be healing fracture or acute fracture. Will discuss with Orthopedic Surgeon Patient pending placement 02/23 Less hip pain. Today complains of generalized itching. Will start Benadryl po prn. Orthopedic consulted to evaluate right hip. Patient pending placement 02/24 Less hip pain. Generalized itching now resolved. Orthopedic consulted to evaluate right hip. He complains of sleeplessness. Will give Ambien prn Patient pending placement 02/25 Patient requested DNR status yesterday. I discussed with him and he signed forms. He also complains of worsening abdominal distension and requested nelsy ing, Will order paracentesis. Right hip evaluated by Dr. Trivedi and conservative management recommended. 02/26: Plan for paracentesis today. Need to set up dialysis as outpatient. 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 02/27: Patient did not sign the consent for paracentesis yesterday so paracentesis was done today and aspirated 6.2L ascitic fluid. Patient refusing medication per RN. Getting dialysis. Patient noted slightly altered today, will place NG tube remains altered and keep refusing oral meds, order for ammonia level and will cont lactulose. 02/28: Patient appears much more calm and cooperative today. He stated that he has been refusing procedure and medication as he believes he was not in the right state of his mind. Patient acknowledges the importance of being compliant and he promises that he will take the medications as he will be given. Discharge planning per case management as patient would need outpatient dialysis center set up and personal retirement set up. 03/01/21: Patient has assisted setting but according to human services case manager no available RN to accept the patient till Thursday. Continue supportive care. Discharge pending on placement. 03/02/21 -03/04/21: Discharge pending on placement, continue to monitor clinically. Continue current management and plan and supportive care. Patient need SNF placement. 03/05/2021; Awaiting SNF placement for discharge. Prognosis is very poor. Patient is nonresponsive. I try to reach to his son over the phone but could not get in touch. Patient is appropriate for hospice care. 03/06/2021; patient is awaiting SNF placement. Patient was alert and oriented. No confusion. Patient is stable to be discharged back to SNF. 03/07/2021; patient has hemoglobin of 6.8 this morning. A unit of blood ordered. Will monitor H&H. Nephrology is following for dialysis. 03/08/2021; patient's hemoglobin was 6.8 yesterday and transfused a unit of blood. I ordered yesterday to do posttransfusion H&H and was not done. CBC was ordered to be done this morning but was not done. COVID-19 test was done on 03/06 and positive. Nephrology is following the patient for his dialysis. Plan is to discharge him to SNF. Will follow with case management because patient is Covid positive. 03/09/2021; patient's repeat Covid test on 03/08/2021 was positive. Patient is pending for SNF Placement. Patient had hypoglycemia yesterday and patient was placed on Lantus and his sliding scale adjusted to high dose. Will monitor and adjust as needed. 03/10/2021; pending SNF placement. Covid test was positive on and . 03/11/2021; patient has hepatic encephalopathy and his ammonia level is very high, patient is currently on lactulose and rifaximin. Ammonia level is trending down. Nephrology is following for dialysis. Patient has positive Covid test last one was on 03/08, that makes placement difficult. Continue with case management. 03/12: Still awaiting placement, discussed with nursing staff to monitor mental status changes. Will check ammonia level. Continue to adjust blood sugar. Complicated by COVID POSITIVELY. Awaiting placement for the patient. Also dialysis chair time. I have discussed with case management as my understanding was that patient was to go for hospice but this plan appears to have changed possibly not clear to me at this time 03/13: Continue supportive care crush medications that can be crushed. Ammonia level is elevated but not as elevated as previously. Continue lactulose advised nursing staff that this should be given as ordered to communicate with the night team also. Unfortunately when the patient gets better he refuses his lactulose. I truly believe that we should strongly consider palliative care for this patient but nevertheless if he wants to continue dialysis and will be compliant with his medications this is definitely an option can be pursued. Aspiration precautions monitor hemoglobin and platelets. 03/14: Patient seen and examined, more awake today. Continue supportive care, patient was made DNR wade, signed the form today after confirming the patient and also the physician. Monitor for fever. AWAITING PLACEMENT. poor prognosis 03/15/21 Patient is seen and examined. Lab and medication reviewed. Patient denied any chest pain or shortness of breath. Patient is more awake alert today. Patient is getting them hemodialysis today. Continue current management. Awaiting placement. 03/16/21 patient seen and examined. Lab and medication reviewed. Patient feels better. Hemoglobin 8.2 and hematocrit 23.9. Complained of pain in the butt. No other complain. Continue current management and supportive care. Patient is waiting for placement. 03/17: Patient remains with poor prognosis refusing dietary intake. Again discussed hospice and palliative care management considering his current medical condition and declining poor prognostic factors. Discussed with nursing staff patient will continue with lactulose had refused this morning but did take it yesterday. Continue aspiration precautions. Discussed the importance of taking the medication the patient verbalized understanding 03/18: Patient undergoing HD discharge planning ongoing discussed with case management team. Covid test ordered today for placement purposes. 03/19/2021; Covid test was ordered and result is pending. Pending placement. 03/20/2021; patient's Covid test was positive again on 03/20/2021. Pending placement. 03/21/2021. Patient cooperative no acute distress at this time. Complains of loose stool diarrhea. Still awaiting placement. Unable to find hemodialysis placement 03/22/2021. Patient last Covid test was positive however initial test was greater than 14 days ago. Patient is no longer infected. Unable to find hemodialysis line at present. Patient being evaluated for [facility]. 03/23/2021. Patient continues to state he feels good much better at this time. Resting comfortably. No distress noted. Still awaiting hemodialysis center. 03/24/2021 patient with flat mood discussed about depression. Resting comfortably watching TV. 03/25/2021. Patient denies depression at this time. Complains of itching all over. When am i getting out of here 03/26/2021. Case management reports patient is still awaiting hemodialysis placement 03/27/2021. Case management reports patient is still awaiting hemodialysis placement. Patient is on maintenance hemodialysis three times a week, MWF schedule. Cont. Lactulose and Rifaximin. Epogen with HD. 03/28/2021. Case management reports patient is still awaiting hemodialysis placement. 03/29/2021. Plan is for the patient to go to [facility] and awaiting on hemodialysis arrangements. [facility] and does not have a bed available. Covid test ordered. We will continue to follow up with case management on discharge planning. 03/30/2021. No new developments. Await hemodialysis placement and potential transfer to [facility]. 03/31/2021. No new developments. Await hemodialysis placement and potential transfer to [facility]. 04/03/2021 Waiting for transfer to detention facility 04/04/2021 Waiting for transfer to detention facility 04/05/2021 Undergoing hemodialysis during making examination Waiting for placement 04/06/2021 Waiting for placement 04/07/2021 Waiting for placement 04/08/2021 Waiting for placement 04/09: Patient seen and examined a little bit lethargic otherwise no new changes. Awaiting placement noted thrombocytopenia continue to monitor. Discussed with case management and Nursing staff. 04/10: Thrombocytopenia persist, continue to monitor. Still with lethargy. Continue to monitor, Aspiration precautions. Continue with HD 04/11: Discussed with case management patient may possibly have a HD time today and will be able to be discharged unfortunately I think patient has a really poor prognosis considering his liver failure and my recommendation remains for hospice management to be considered outpatient. Patient however wants to continue dialysis. We will continue lactulose. 04/12: Today admitted with hyperkalemia expect correction with dialysis. We will recheck BMP in a.m.. Discussed with nursing staff will continue lactulose at this time. Awaiting placement. Poor prognosis 04/13: m continues with very poor prognosis considering overall clinical condition. Family will had a discussion with case management about hospice. Case management working on this while we will continue to work on other discharge plans. History Interval history: Patient seen and examined no acute distress. still with some lethargic. Not following any commands although awake just choosing not to speak. Hospitalist Physical - Physical exam Narrative exam: VITAL SIGNS: Reviewed. GENERAL: The patient appears normally developed, awake lying down in a semiprone position pale, vital signs as documented. HEAD: No signs of head trauma. EYES: Pupils are equal. Extraocular motions intact. Icteric sclera-Jaundice EARS: Hearing grossly intact. MOUTH: Oropharynx is normal. NECK: No adenopathy, no JVD. CHEST: Chest with diminished breath sounds bilaterally. No wheezes, rales, or rhonchi. CARDIAC: Regular rate and rhythm. S1 and S2, without murmurs, gallops, or rubs. VASCULAR: No Edema. Peripheral pulses normal and equal in all extremities. ABDOMEN: Soft, non tender and non distended. No rebound or guarding, and no masses palpated. Bowel Sounds normal. MUSCULOSKELETAL: Right BKA extremities without clubbing, cyanosis or edema. NEUROLOGIC EXAM: Lethargic and stuporous. No focal sensory or strength deficits. PSYCHIATRIC: Unable to clearly examine SKIN: Jaundice detail exam as documented in skin assessment - Constitutional Vitals: Temp Pulse Resp BP Pulse Ox 97.9 F 67 16 136/70 100 04/12/21 21:36 04/13/21 09:21 04/12/21 21:36 04/13/21 09:21 04/12/21 22:00 General appearance: Present: no acute distress, well-nourished Results - Labs CBC & Chem 7: 04/12/21 06:54 04/12/21 06:54 Labs: Laboratory Last Values WBC 3.5 K/mm3 (4.5-11.0) L 04/12/21 06:54 RBC 2.71 M/mm3 (3.65-5.03) L 04/12/21 06:54 Hgb 8.3 gm/dl (11.8-15.2) L 04/12/21 06:54 Hct 25.1 % (35.5-45.6) L 04/12/21 06:54 MCV 93 fl (84-94) 04/12/21 06:54 MCH 31 pg (28-32) 04/12/21 06:54 MCHC 33 % (32-34) 04/12/21 06:54 RDW 20.1 % (13.2-15.2) H 04/12/21 06:54 Plt Count 105 K/mm3 (140-440) L 04/12/21 06:54 Lymph % (Auto) 18.6 % (13.4-35.0) 04/05/21 07:46 [place] % (Auto) 12.6 % (0.0-7.3) H 04/05/21 07:46 Eos % (Auto) 3.4 % (0.0-4.3) 04/05/21 07:46 Baso % (Auto) 1.0 % (0.0-1.8) 04/05/21 07:46 Lymph # (Auto) 0.7 K/mm3 (1.2-5.4) L 04/05/21 07:46 [place] # (Auto) 0.5 K/mm3 (0.0-0.8) 04/05/21 07:46 Eos # (Auto) 0.1 K/mm3 (0.0-0.4) 04/05/21 07:46 Baso # (Auto) 0.0 K/mm3 (0.0-0.1) 04/05/21 07:46 Add Manual Diff Complete 03/07/21 05:23 Total Counted 100 03/07/21 05:23 Seg Neutrophils % 64.4 % (40.0-70.0) 04/05/21 07:46 Seg Neuts % (Manual) 78.0 % (40.0-70.0) H 03/07/21 05:23 Lymphocytes % (Manual) 13.0 % (13.4-35.0) L 03/07/21 05:23 Monocytes % (Manual) 9.0 % (0.0-7.3) H 03/07/21 05:23 Nucleated RBC % Not Reportable 03/07/21 05:23 Seg Neutrophils # 2.3 K/mm3 (1.8-7.7) 04/05/21 07:46 Seg Neutrophils # Man 2.0 K/mm3 (1.8-7.7) 03/07/21 05:23 Band Neutrophils # 0.0 K/mm3 03/07/21 05:23 Lymphocytes # (Manual) 0.3 K/mm3 (1.2-5.4) L 03/07/21 05:23 Abs React Lymphs (Man) 0.0 K/mm3 03/07/21 05:23 Monocytes # (Manual) 0.2 K/mm3 (0.0-0.8) 03/07/21 05:23 Eosinophils # (Manual) 0.0 K/mm3 (0.0-0.4) 03/07/21 05:23 Basophils # (Manual) 0.0 K/mm3 (0.0-0.1) 03/07/21 05:23 Metamyelocytes # 0.0 K/mm3 03/07/21 05:23 Myelocytes # 0.0 K/mm3 03/07/21 05:23 Promyelocytes # 0.0 K/mm3 03/07/21 05:23 Blast Cells # 0.0 K/mm3 03/07/21 05:23 WBC Morphology Not Reportable 03/07/21 05:23 Hypersegmented Neuts Not Reportable 03/07/21 05:23 Hyposegmented Neuts Not Reportable 03/07/21 05:23 Hypogranular Neuts Not Reportable 03/07/21 05:23 Smudge Cells Not Reportable 03/07/21 05:23 Toxic Granulation Not Reportable 03/07/21 05:23 Toxic Vacuolation Not Reportable 03/07/21 05:23 Dohle Bodies Not Reportable 03/07/21 05:23 Pelger-Huet Anomaly Not Reportable 03/07/21 05:23 Cosme Rods Not Reportable 03/07/21 05:23 Platelet Estimate Consistent w auto 03/07/21 05:23 Clumped Platelets Not Reportable 03/07/21 05:23 Plt Clumps, EDTA Not Reportable 03/07/21 05:23 Large Platelets Not Reportable 03/07/21 05:23 Giant Platelets Not Reportable 03/07/21 05:23 Platelet Satelliting Not Reportable 03/07/21 05:23 Plt Morphology Comment Not Reportable 03/07/21 05:23 RBC Morphology Not Reportable 03/07/21 05:23 Dimorphic RBCs Not Reportable 03/07/21 05:23 Polychromasia Not Reportable 03/07/21 05:23 Hypochromasia Not Reportable 03/07/21 05:23 Poikilocytosis Not Reportable 03/07/21 05:23 Anisocytosis Few 03/07/21 05:23 Microcytosis Not Reportable 03/07/21 05:23 Macrocytosis Not Reportable 03/07/21 05:23 Spherocytes Not Reportable 03/07/21 05:23 Pappenheimer Bodies Not Reportable 03/07/21 05:23 Sickle Cells Not Reportable 03/07/21 05:23 Target Cells Not Reportable 03/07/21 05:23 Tear Drop Cells Not Reportable 03/07/21 05:23 Ovalocytes Not Reportable 03/07/21 05:23 Helmet Cells Not Reportable 03/07/21 05:23 [place] Bodies Not Reportable 03/07/21 05:23 [place] Rings Not Reportable 03/07/21 05:23 Kathy Cells Not Reportable 03/07/21 05:23 Bite Cells Not Reportable 03/07/21 05:23 Crenated Cell Not Reportable 03/07/21 05:23 Elliptocytes Not Reportable 03/07/21 05:23 Acanthocytes (Spur) Not Reportable 03/07/21 05:23 Rouleaux Not Reportable 03/07/21 05:23 Hemoglobin C Crystals Not Reportable 03/07/21 05:23 Schistocytes Not Reportable 03/07/21 05:23 Malaria parasites Not Reportable 03/07/21 05:23 Samir Bodies Not Reportable 03/07/21 05:23 Hem Pathologist Commnt No 03/07/21 05:23 PT 13.7 Sec. (12.2-14.9) 02/26/21 04:33 INR 1.00 (0.87-1.13) 02/26/21 04:33 Sodium 138 mmol/L (137-145) 04/12/21 06:54 Potassium 5.2 mmol/L (3.6-5.0) H D 04/12/21 06:54 Chloride 98.6 mmol/L (98-107) 04/12/21 06:54 Carbon Dioxide 30 mmol/L (22-30) 04/12/21 06:54 Anion Gap 15 mmol/L 04/12/21 06:54 BUN 62 mg/dL (9-20) H 04/12/21 06:54 Creatinine 7.0 mg/dL (0.8-1.3) H 04/12/21 06:54 Estimated GFR 8 ml/min 04/12/21 06:54 BUN/Creatinine Ratio 9 % 04/12/21 06:54 Glucose 107 mg/dL (75-100) H 04/12/21 06:54 POC Glucose 80 mg/dL (70-105) 04/13/21 07:35 Hemoglobin A1c 7.4 % (4-6) H 02/26/21 04:33 Calcium 9.4 mg/dL (8.4-10.2) 04/12/21 06:54 Phosphorus 3.40 mg/dL (2.5-4.5) 04/03/21 07:30 Magnesium 2.10 mg/dL (1.7-2.3) 02/17/21 02:24 Iron 52 ug/dL (49-181) 03/30/21 05:11 TIBC 203 mcg/dL (250-450) L 03/30/21 05:11 Ferritin 70.9 ng/mL (30.0-300.0) 03/30/21 05:11 Total Bilirubin 0.60 mg/dL (0.1-1.2) 04/05/21 07:46 Direct Bilirubin 0.3 mg/dL (0-0.2) H 03/14/21 07:24 Indirect Bilirubin 0.3 mg/dL 03/14/21 07:24 AST 34 units/L (5-40) 04/05/21 07:46 ALT 23 units/L (7-56) 04/05/21 07:46 Alkaline Phosphatase 183 units/L (35-129) H 04/05/21 07:46 Ammonia 68.0 umol/L (25-60) H 04/05/21 07:46 Total Creatine Kinase 86 units/L (55-170) 02/17/21 02:24 Total Protein 5.8 g/dL (6.3-8.2) L 04/05/21 07:46 Albumin 2.5 g/dL (3.9-5) L 04/05/21 07:46 Albumin/Globulin Ratio 0.8 % 04/05/21 07:46 Vitamin B12 1583 pg/mL (211-911) H 03/30/21 05:11 Folate 10.11 ng/mL (7.3-26.0) 03/30/21 05:11 TSH 0.986 mlU/mL (0.270-4.200) 02/17/21 02:24 Urine Color Yellow (Yellow) 02/17/21 Unknown Urine Turbidity Clear (Clear) 02/17/21 Unknown Urine pH 6.0 (5.0-7.0) 02/17/21 Unknown Ur Specific [place] 1.012 (1.003-1.030) 02/17/21 Unknown Urine Protein 100 mg/dl mg/dL (Negative) 02/17/21 Unknown Urine Glucose (UA) >=500 mg/dL (Negative) 02/17/21 Unknown Urine Ketones Neg mg/dL (Negative) 02/17/21 Unknown Urine Blood Neg (Negative) 02/17/21 Unknown Urine Nitrite Neg (Negative) 02/17/21 Unknown Urine Bilirubin Neg (Negative) 02/17/21 Unknown Urine Urobilinogen < 2.0 mg/dL (<2.0) 02/17/21 Unknown Ur Leukocyte Esterase Neg (Negative) 02/17/21 Unknown Urine WBC (Auto) 2.0 /HPF (0.0-6.0) 02/17/21 Unknown Urine RBC (Auto) 2.0 /HPF (0.0-6.0) 02/17/21 Unknown U Epithel Cells (Auto) < 1.0 /HPF (0-13.0) 02/17/21 Unknown Urine Bacteria (Auto) 1+ /HPF (Negative) 02/17/21 Unknown Salicylates < 0.3 mg/dL (2.8-20.0) L 02/17/21 02:24 Acetaminophen 5.0 ug/mL (10.0-30.0) L 02/17/21 02:24 Coronavirus (PCR) Positive (Negative) A 04/10/21 Unknown Hepatitis A IgM Ab Non-reactive (NonReactive) 02/28/21 12:37 Hep Bs Antigen Non-reactive (Negative) 03/28/21 18:57 Hep B Core IgM Ab Non-reactive (NonReactive) 02/28/21 12:37 Hepatitis C Antibody Non-reactive (NonReactive) 02/28/21 12:37 Blood Type A POSITIVE 03/07/21 06:31 Antibody Screen Negative 03/07/21 06:31 Crossmatch See Detail 03/07/21 06:31 Sr/IV: Voiding Method Incontinent Active Medications - Current Medications Current Medications: Generic Name Dose Route Start Last Admin Trade Name Freq PRN Reason Stop Dose Admin Acetaminophen 650 mg 02/18/21 22:38 03/09/21 13:15 Acetaminophen 325 Mg Tab PO 650 mg Q4H PRN Administration Pain MILD(1-3)/Fever >100.5/MOLINA Albuterol 2.5 mg 02/18/21 22:38 Albuterol 2.5 Mg/3 Ml Nebu IH Q3HRT PRN Shortness Of Breath Allopurinol 100 mg 02/20/21 10:00 04/13/21 09:21 Allopurinol 100 Mg Tab PO 100 mg QDAY LEYLA Administration Calcium Acetate 1,334 mg 02/20/21 08:30 04/13/21 09:20 Calcium Acetate 667 Mg Cap PO 1,334 mg TIDWM LEYLA Administration Dextrose 50 ml 03/29/21 12:00 Dextrose 50% In Water (25gm) 50 Ml Syringe IV Q30MIN PRN HYPOGLYCEMIA Protocol Diphenhydramine HCl 25 mg 02/23/21 09:10 03/24/21 09:01 Diphenhydramine 25 Mg Cap PO 25 mg BID PRN Administration Itching Famotidine 20 mg 02/19/21 10:00 04/13/21 09:21 Famotidine 20 Mg Tab PO 20 mg QAM LEYLA Administration Hydralazine HCl 10 mg 02/18/21 22:56 Hydralazine 20 Mg/1 Ml Inj IV Q6H PRN htn Hydroxyzine HCl 25 mg 03/24/21 10:38 Hydroxyzine Hcl 25 Mg Tab PO Q6H PRN Itching Sodium Chloride 100 mls @ 999 mls/hr 02/19/21 09:06 Nacl 0.9% IV OLIVIA PRN Hypotension Insulin Glargine 16 units 03/23/21 09:00 04/12/21 22:20 Insulin Glargine 100 Units/Ml SUB-Q 16 units QHS LEYLA Administration Insulin Human Lispro 0 unit 03/09/21 22:00 04/13/21 08:26 Insulin Lispro 100 Unit/Ml SUB-Q Not Given ACHS [facility] Protocol Lactulose 20 gm 03/09/21 18:00 04/13/21 05:42 Lactulose 20 Gm/30 Ml Oral Liqd PO Not Given Q6HR [facility] Ondansetron HCl 4 mg 02/18/21 22:38 02/28/21 12:32 Ondansetron 4 Mg/2 Ml Inj IV 4 mg Q8H PRN Administration Nausea And Vomiting Polyethylene Glycol 17 gm 02/24/21 12:08 02/24/21 12:47 Polyethylene Glycol 3350 17 Gm Powder PO 17 gm QDAY PRN Administration Constipation Propranolol HCl 20 mg 02/20/21 10:00 04/13/21 09:20 Propranolol 10 Mg Tab PO 20 mg BID LEYLA Administration Rifaximin 550 mg 03/10/21 12:00 04/13/21 09:21 Rifaximin 550 Mg Tab PO 550 mg BID LEYLA Administration Sodium Chloride 10 ml 02/19/21 10:00 04/13/21 09:21 Sodium Chloride 0.9% 10 Ml Flush Syringe IV 10 ml BID LEYLA Administration Sodium Chloride 10 ml 02/18/21 22:38 Sodium Chloride 0.9% 10 Ml Flush Syringe IV PRN PRN LINE FLUSH Zolpidem Tartrate 5 mg 02/24/21 09:54 03/08/21 23:25 Zolpidem 5 Mg Tab PO 5 mg QHS PRN Administration Sleep Nutrition/Malnutrition Assess - Dietary Evaluation Nutrition/Malnutrition Findings: Nutrition Notes Start: 02/19/21 10:48 Freq: Status: Active Protocol: Document 04/12/21 11:23 ALISSA (Rec: 04/12/21 11:25 ALISSA [email or web address]) Nutrition Notes Initial or Follow up Reassessment Current Diagnosis CKD (stage V CKD),Diabetes Other Pertinent Diagnosis COVID-19 (+), hepatic encephalopathy, ascites Current Diet Renal/Consistent CHO + Nepro once daily Labs/Tests K 2.6 BUN 62 Cr 7 Pertinent Medications Phoslo Height 5 ft 11 in Weight 71.3 kg [place] Body Weight (kg) 78.18 BMI 21.9 Weight Status Appropriate Subjective/Other Information FU for intakes. Pt did not answer phone x2. Pt eating 100 % of meals, per chart. Percent of energy/protein needs met: 100%/100% Burn Absent Trauma Absent Current % PO Good (75-100%) Minimum of two criteria Yes Body Fat Depletion Mild depletion (non-severe) Fluid Accumulation Mild (non-severe) #2 Nutrition Diagnosis Increased nutrient needs ( specify in comment below) Diagnosis Progress(for reassessment Continues documentation) #1 Nutrition Diagnosis Malnutrition Diagnosis Progress(for reassessment Continues documentation) Is patient on ventilator? No Is Patient Ambulatory and/or Out of Bed No REE-([facility]-confined to bed) [phone] Calculation Used for Recommendations [facility] Additional Notes Pro needs >1.2g/kg/day Fluid needs 1-1.5L/day Nutrition Intervention Change Diet Order: Continue current Add Supplement/Snack (indicate name/kcal Nepro daily /protein ) Provides kCal: 425 Provides Protein (gm) 19 Goal #1 PO intake of meals plus ONS to meet at least 75% energy and pro needs Goal #2 Wound healing Follow-Up By: 04/19/21 Additional Comments FU for stable intakes and ONS tolerance
--- NOTE | 2021-04-13 11:20 | Progress Note ---
Assessment and Plan 1. ESRD: Patient is on maintenance hemodialysis three times a week, MWF schedule. Meds dosage based on GFR. Missed HD 02/18. Hemodialysis: 02/19, 02/20, 02/22, 02/25, 02/27, 03/01, 03/04, 03/06, 03/08, 03/11, 03/13, 03/15, 03/18, 03/20, 03/22, 03/25, 03/27, 03/29, 04/01, 04/03, 04/05, 04/08, 04/10, 04/12. 2. FEN: Monitor lytes and volume status. 3. Anemia, POA: 2/2 ESRD and Liver disease. Epogen with HD. IV Iron 125 mg 04/05. PRBC as needed. 4. Cirrhosis with h/o hepatic encephalopathy: Lactulose and Rifaximin. Monitor. 5. DM type 2: SSI. Monitor. 6. Thrombocytopenia, POA. 7. Hypotension: BP is better. Await placement. Subjective: Patient was seen and examined at the bedside. General Appearance: General appearance: well-developed, appears stated age, not in distress HEENT: ATNC, pupils equal Neck: trachea midline Respiratory: ctab Heart: regular, S1S2, no murmur Abdomen: soft, bowel sounds heard, slightly distended, not tender Integumentary: no rash, warm and dry Neurologic: lethargic, not following any command Ext: no edema, R BKA Hemodialysis access: R arm AVF Subjective Date of service: 04/13/21 Principal diagnosis: Acute encephalopathy Objective - Vital Signs Vital signs: Vital Signs - 12hr 04/13/21 09:21 Pulse Rate 67 Blood Pressure 136/70 [Left] - Lab 04/12/21 06:54 04/12/21 06:54 Most recent lab results Calcium 9.4 mg/dL (8.4-10.2) 04/12/21 06:54 Phosphorus 3.40 mg/dL (2.5-4.5) 04/03/21 07:30 Magnesium 2.10 mg/dL (1.7-2.3) 02/17/21 02:24 Medications & Allergies - Medications Allergies/Adverse Reactions: Allergies No Known Allergies Allergy (Verified 02/16/21 18:26) Home Medications: Home Medications Medication Instructions Recorded Confirmed Last Taken Type Calcium Acetate [Phoslo] 1,334 mg PO TIDWM #90 capsule 03/01/21 Unknown Rx Famotidine [Pepcid] 20 mg PO QAM #30 tablet 03/01/21 Unknown Rx Lactulose [Cephulac] 20 gm PO Q8HR 30 Days 03/01/21 Unknown Rx Lispro Insulin [HumaLOG] See Protocol SQ ACHS 30 Days 03/01/21 Unknown Rx allopurinoL [Zyloprim] 100 mg PO QDAY #30 tablet 03/01/21 Unknown Rx propranoloL [Inderal] 20 mg PO BID #60 tablet 03/01/21 Unknown Rx Active Medications: Generic Name Dose Route Start Last Admin Trade Name Freq PRN Reason Stop Dose Admin Acetaminophen 650 mg 02/18/21 22:38 03/09/21 13:15 Acetaminophen 325 Mg Tab PO 650 mg Q4H PRN Administration Pain MILD(1-3)/Fever >100.5/MOLINA Albuterol 2.5 mg 02/18/21 22:38 Albuterol 2.5 Mg/3 Ml Nebu IH Q3HRT PRN Shortness Of Breath Allopurinol 100 mg 02/20/21 10:00 04/13/21 09:21 Allopurinol 100 Mg Tab PO 100 mg QDAY LEYLA Administration Calcium Acetate 1,334 mg 02/20/21 08:30 04/13/21 09:20 Calcium Acetate 667 Mg Cap PO 1,334 mg TIDWM LEYLA Administration Dextrose 50 ml 03/29/21 12:00 Dextrose 50% In Water (25gm) 50 Ml Syringe IV Q30MIN PRN HYPOGLYCEMIA Protocol Diphenhydramine HCl 25 mg 02/23/21 09:10 03/24/21 09:01 Diphenhydramine 25 Mg Cap PO 25 mg BID PRN Administration Itching Famotidine 20 mg 02/19/21 10:00 04/13/21 09:21 Famotidine 20 Mg Tab PO 20 mg QAM LEYLA Administration Hydralazine HCl 10 mg 02/18/21 22:56 Hydralazine 20 Mg/1 Ml Inj IV Q6H PRN htn Hydroxyzine HCl 25 mg 03/24/21 10:38 Hydroxyzine Hcl 25 Mg Tab PO Q6H PRN Itching Sodium Chloride 100 mls @ 999 mls/hr 02/19/21 09:06 Nacl 0.9% IV OLIVIA PRN Hypotension Insulin Glargine 16 units 03/23/21 09:00 04/12/21 22:20 Insulin Glargine 100 Units/Ml SUB-Q 16 units QHS LEYLA Administration Insulin Human Lispro 0 unit 03/09/21 22:00 04/13/21 08:26 Insulin Lispro 100 Unit/Ml SUB-Q Not Given ACHS [facility] Protocol Lactulose 20 gm 03/09/21 18:00 04/13/21 05:42 Lactulose 20 Gm/30 Ml Oral Liqd PO Not Given Q6HR [facility] Ondansetron HCl 4 mg 02/18/21 22:38 02/28/21 12:32 Ondansetron 4 Mg/2 Ml Inj IV 4 mg Q8H PRN Administration Nausea And Vomiting Polyethylene Glycol 17 gm 02/24/21 12:08 02/24/21 12:47 Polyethylene Glycol 3350 17 Gm Powder PO 17 gm QDAY PRN Administration Constipation Propranolol HCl 20 mg 02/20/21 10:00 04/13/21 09:20 Propranolol 10 Mg Tab PO 20 mg BID LEYLA Administration Rifaximin 550 mg 03/10/21 12:00 04/13/21 09:21 Rifaximin 550 Mg Tab PO 550 mg BID LEYLA Administration Sodium Chloride 10 ml 02/19/21 10:00 04/13/21 09:21 Sodium Chloride 0.9% 10 Ml Flush Syringe IV 10 ml BID LEYLA Administration Sodium Chloride 10 ml 02/18/21 22:38 Sodium Chloride 0.9% 10 Ml Flush Syringe IV PRN PRN LINE FLUSH Zolpidem Tartrate 5 mg 02/24/21 09:54 03/08/21 23:25 Zolpidem 5 Mg Tab PO 5 mg QHS PRN Administration Sleep
[2021-04-13] MEDS: INSULIN GLARGINE 100 UNITS/ML SUB-Q SCH (22:01)
[2021-04-14] MEDS: LACTULOSE 20 GM/30 ML ORAL LIQD PO SCH ×4 (01:35→18:33)
[2021-04-14] MEDS: FAMOTIDINE 20 MG TAB PO SCH (09:44)
[2021-04-14] MEDS: RIFAXIMIN 550 MG TAB PO SCH ×2 (09:44→21:27)
[2021-04-14] MEDS: allopurinoL 100 MG TAB PO SCH (09:44)
[2021-04-14] MEDS: CALCIUM ACETATE 667 MG CAP PO SCH ×3 (09:44→16:43)
[2021-04-14] MEDS: INSULIN LISPRO 100 UNIT/ML SUB-Q SCH ×4 (09:47→23:17)
[2021-04-14] MEDS: PROPRANOLOL 10 MG TAB PO SCH ×2 (09:50→23:00)
--- NOTE | 2021-04-14 12:44 | Progress Note ---
Assessment and Plan Assessment and plan: 55 YO Male with ESRD on HD, Noncompliance with outpatient dialysis, Anemia, HBV, Chronic Liver Disease, Cirrhosis complicated by Esophageal Varices, HTN, Debility, DM presents to ED with confusion with diminished cognition. Patient family report the patient was "not acting like himself" and found to have worsening confusion over the past 2 days. In the ER the patient was found to have hepatic encephalopathy complicated by diminished cognition, end-stage renal disease in need of urgent dialysis, as well as uncontrolled diabetes, and acidosis. Nephrology team consulted in ED and patient was then admitted for further evaluation and Mx. A/p -- Hepatic encephalopathy due to hepatic cirrhosis cont lactulose, Neuro check, seizure precaution, aspiration precaution, fall precautions, continue to monitor. -- End stage renal disease Nephrology team consulted, strict I's/O, monitor urine output every shift, dialysis as per renal team, avoid nephrotoxic agents. --Metabolic Acidosis Nephrology team consulted, dialysis as per renal team. --Hyponatremia Monitor BMP, monitor fluid balance. -- Hyperammonemia Continue lactulose --Diabetes mellitus with hyperglycemia Consistent carb diet, SSI -- hyperkalemia, Improvement with dialysis --Ascitis, s/p paracentesis drained 6.2l of ascitic fluid --Sacral wound, cont wound care -- Moderate Protein Calorie Malnutrition, nutrition consulted --Noncompliance, counseled for medication compliance -- Thrombocytopenia --DVT Px, SCD --DNR code status --Disposition: needs placement, CM waiting for placement -- Hepatic encephalopathy -Patient alert and oriented x3. due to hepatic cirrhosis has resolved cont lactulose, Neuro check, seizure precaution, aspiration precaution, fall precautions, continue to monitor. -Diarrhea resolved was secondary to lactulose. Patient is alert no encephalopathy. -- End stage renal disease Nephrology team consulted, strict I's/O, monitor urine output every shift, dialysis as per renal team, avoid nephrotoxic agents. Await dialysis center. Still no dialysis center. We will dialyze as indicated. --Metabolic Acidosis Nephrology team consulted, dialysis as per renal team. --Hyponatremia Monitor BMP, monitor fluid balance.-Does not require to be checked today we will check every other day now. -- Hyperammonemia Continue lactulose --Pruritus Add Atarax most likely secondary to liver failure --Diabetes mellitus with hyperglycemia Consistent carb diet, SSI -- hyperkalemia, Improvement with dialysis --Ascites, s/p paracentesis drained 6.2l of ascitic fluid -no further ascites at this time. --Sacral wound, pain control continue local wound care. -- Moderate Protein Calorie Malnutrition, nutrition consulted --Noncompliance, counseled for medication compliance --Depression discussed about depression and initiation of Zoloft Waiting for transfer to detention facility 02/19: Resume dialysis will adjust insulin for better coverage. Very poor prognosis considering poor medical compliance. Agree with hospice recommendation. Will obtain wound care to continue to manage. Monitor anemia as patient was pretty anemic during the last hospitalization. Required transfusion. 02/20: Continues to undergo dialysis no change in mental status noted. Tolerating medications. Blood sugar mildly elevated adjusted insulin yesterday when awake for the patient received a dose today and if still elevated will adjust. Again case management is working on discharge plan for this patient as he is pending placement 02/21 patient complains of right hip pain. He said he fell few weeks ago and is concerned about another fracture. He had a fracture about 8 weeks ago and had surgery. Will obtain X ray right hip. Patient pending placement. 02/22 Patient seen in Dialysis Unit. He states hip pain improved. No other complaints. Right hip X ray done yesterday report read may be healing fracture or acute fracture. Will discuss with Orthopedic Surgeon Patient pending placement 02/23 Less hip pain. Today complains of generalized itching. Will start Benadryl po prn. Orthopedic consulted to evaluate right hip. Patient pending placement 02/24 Less hip pain. Generalized itching now resolved. Orthopedic consulted to evaluate right hip. He complains of sleeplessness. Will give Ambien prn Patient pending placement 02/25 Patient requested DNR status yesterday. I discussed with him and he signed forms. He also complains of worsening abdominal distension and requested nelsy ing, Will order paracentesis. Right hip evaluated by Dr. Trivedi and conservative management recommended. 02/26: Plan for paracentesis today. Need to set up dialysis as outpatient. operations research manager working on discharge planning. 02/27: Patient did not sign the consent for paracentesis yesterday so paracentesis was done today and aspirated 6.2L ascitic fluid. Patient refusing medication per RN. Getting dialysis. Patient noted slightly altered today, will place NG tube remains altered and keep refusing oral meds, order for ammonia level and will cont lactulose. 02/28: Patient appears much more calm and cooperative today. He stated that he has been refusing procedure and medication as he believes he was not in the right state of his mind. Patient acknowledges the importance of being compliant and he promises that he will take the medications as he will be given. Discharge planning per case management as patient would need outpatient dialysis center set up and personal residential set up. 03/01/21: Patient has senior care setting but according to case filler no available RN to accept the patient till Thursday. Continue supportive care. Discharge pending on placement. 03/02/21 -03/04/21: Discharge pending on placement, continue to monitor clinically. Continue current management and plan and supportive care. Patient need SNF placement. 03/05/2021; Awaiting SNF placement for discharge. Prognosis is very poor. Patient is nonresponsive. I try to reach to his son over the phone but could not get in touch. Patient is appropriate for hospice care. 03/06/2021; patient is awaiting SNF placement. Patient was alert and oriented. No confusion. Patient is stable to be discharged back to SNF. 03/07/2021; patient has hemoglobin of 6.8 this morning. A unit of blood ordered. Will monitor H&H. Nephrology is following for dialysis. 03/08/2021; patient's hemoglobin was 6.8 yesterday and transfused a unit of blood. I ordered yesterday to do posttransfusion H&H and was not done. CBC was ordered to be done this morning but was not done. COVID-19 test was done on 03/06 and positive. Nephrology is following the patient for his dialysis. Plan is to discharge him to SNF. Will follow with case management because patient is Covid positive. 03/09/2021; patient's repeat Covid test on 03/08/2021 was positive. Patient is pending for SNF Placement. Patient had hypoglycemia yesterday and patient was placed on Lantus and his sliding scale adjusted to high dose. Will monitor and adjust as needed. 03/10/2021; pending SNF placement. Covid test was positive on and . 03/11/2021; patient has hepatic encephalopathy and his ammonia level is very high, patient is currently on lactulose and rifaximin. Ammonia level is trending down. Nephrology is following for dialysis. Patient has positive Covid test last one was on 03/08, that makes placement difficult. Continue with case management. 03/12: Still awaiting placement, discussed with nursing staff to monitor mental status changes. Will check ammonia level. Continue to adjust blood sugar. Complicated by COVID POSITIVELY. Awaiting placement for the patient. Also dialysis chair time. I have discussed with case management as my understanding was that patient was to go for hospice but this plan appears to have changed possibly not clear to me at this time 03/13: Continue supportive care crush medications that can be crushed. Ammonia level is elevated but not as elevated as previously. Continue lactulose advised nursing staff that this should be given as ordered to communicate with the night team also. Unfortunately when the patient gets better he refuses his lactulose. I truly believe that we should strongly consider palliative care for this patient but nevertheless if he wants to continue dialysis and will be compliant with his medications this is definitely an option can be pursued. Aspiration precautions monitor hemoglobin and platelets. 03/14: Patient seen and examined, more awake today. Continue supportive care, patient was made DNR wade, signed the form today after confirming the patient and also the physician. Monitor for fever. AWAITING PLACEMENT. poor prognosis 03/15/21 Patient is seen and examined. Lab and medication reviewed. Patient denied any chest pain or shortness of breath. Patient is more awake alert today. Patient is getting them hemodialysis today. Continue current management. Awaiting placement. 03/16/21 patient seen and examined. Lab and medication reviewed. Patient feels better. Hemoglobin 8.2 and hematocrit 23.9. Complained of pain in the butt. No other complain. Continue current management and supportive care. Patient is waiting for placement. 03/17: Patient remains with poor prognosis refusing dietary intake. Again discussed hospice and palliative care management considering his current medical condition and declining poor prognostic factors. Discussed with nursing staff patient will continue with lactulose had refused this morning but did take it yesterday. Continue aspiration precautions. Discussed the importance of taking the medication the patient verbalized understanding 03/18: Patient undergoing HD discharge planning ongoing discussed with case management team. Covid test ordered today for placement purposes. 03/19/2021; Covid test was ordered and result is pending. Pending placement. 03/20/2021; patient's Covid test was positive again on 03/20/2021. Pending placement. 03/21/2021. Patient cooperative no acute distress at this time. Complains of loose stool diarrhea. Still awaiting placement. Unable to find hemodialysis placement 03/22/2021. Patient last Covid test was positive however initial test was greater than 14 days ago. Patient is no longer infected. Unable to find hemodialysis line at present. Patient being evaluated for [facility]. 03/23/2021. Patient continues to state he feels good much better at this time. Resting comfortably. No distress noted. Still awaiting hemodialysis center. 03/24/2021 patient with flat mood discussed about depression. Resting comfortably watching TV. 03/25/2021. Patient denies depression at this time. Complains of itching all over. When am i getting out of here 03/26/2021. Case management reports patient is still awaiting hemodialysis placement 03/27/2021. Case management reports patient is still awaiting hemodialysis placement. Patient is on maintenance hemodialysis three times a week, MWF schedule. Cont. Lactulose and Rifaximin. Epogen with HD. 03/28/2021. Case management reports patient is still awaiting hemodialysis placement. 03/29/2021. Plan is for the patient to go to [facility] and awaiting on hemodialysis arrangements. [facility] and does not have a bed available. Covid test ordered. We will continue to follow up with case management on discharge planning. 03/30/2021. No new developments. Await hemodialysis placement and potential transfer to [facility]. 03/31/2021. No new developments. Await hemodialysis placement and potential transfer to [facility]. 04/03/2021 Waiting for transfer to detention facility 04/04/2021 Waiting for transfer to detention facility 04/05/2021 Undergoing hemodialysis during making examination Waiting for placement 04/06/2021 Waiting for placement 04/07/2021 Waiting for placement 04/08/2021 Waiting for placement 04/09: Patient seen and examined a little bit lethargic otherwise no new changes. Awaiting placement noted thrombocytopenia continue to monitor. Discussed with case management and Nursing staff. 04/10: Thrombocytopenia persist, continue to monitor. Still with lethargy. Continue to monitor, Aspiration precautions. Continue with HD 04/11: Discussed with case management patient may possibly have a HD time today and will be able to be discharged unfortunately I think patient has a really poor prognosis considering his liver failure and my recommendation remains for hospice management to be considered outpatient. Patient however wants to continue dialysis. We will continue lactulose. 04/12: Today admitted with hyperkalemia expect correction with dialysis. We will recheck BMP in a.m.. Discussed with nursing staff will continue lactulose at this time. Awaiting placement. Poor prognosis 04/13: m continues with very poor prognosis considering overall clinical condition. Family will had a discussion with case management about hospice. Case management working on this while we will continue to work on other discharge plans. 04/14: Tolerating tube feeds awaiting placement and possible hospice placement. History Interval history: Patient seen and examined no acute distress. still with some lethargic. Started on tube feeds, not following any commands although awake just choosing not to speak. Hospitalist Physical - Physical exam Narrative exam: VITAL SIGNS: Reviewed. GENERAL: The patient appears normally developed, awake lying down in a semiprone position pale, vital signs as documented. HEAD: No signs of head trauma. EYES: Pupils are equal. Extraocular motions intact. Icteric sclera-Jaundice EARS: Hearing grossly intact. MOUTH: Oropharynx is normal. NECK: No adenopathy, no JVD. CHEST: Chest with diminished breath sounds bilaterally. No wheezes, rales, or rhonchi. CARDIAC: Regular rate and rhythm. S1 and S2, without murmurs, gallops, or rubs. VASCULAR: No Edema. Peripheral pulses normal and equal in all extremities. ABDOMEN: Soft, non tender and non distended. No rebound or guarding, and no masses palpated. Bowel Sounds normal. MUSCULOSKELETAL: Right BKA extremities without clubbing, cyanosis or edema. NEUROLOGIC EXAM: Lethargic and stuporous. No focal sensory or strength deficits. PSYCHIATRIC: Unable to clearly examine SKIN: Jaundice detail exam as documented in skin assessment - Constitutional Vitals: Temp Pulse Resp BP Pulse Ox 98.0 F 73 18 124/55 100 04/14/21 03:10 04/14/21 09:50 04/14/21 10:00 04/14/21 09:50 04/14/21 10:00 General appearance: Present: no acute distress, well-nourished Results - Labs CBC & Chem 7: 04/12/21 06:54 04/12/21 06:54 Labs: Laboratory Last Values WBC 3.5 K/mm3 (4.5-11.0) L 04/12/21 06:54 RBC 2.71 M/mm3 (3.65-5.03) L 04/12/21 06:54 Hgb 8.3 gm/dl (11.8-15.2) L 04/12/21 06:54 Hct 25.1 % (35.5-45.6) L 04/12/21 06:54 MCV 93 fl (84-94) 04/12/21 06:54 MCH 31 pg (28-32) 04/12/21 06:54 MCHC 33 % (32-34) 04/12/21 06:54 RDW 20.1 % (13.2-15.2) H 04/12/21 06:54 Plt Count 105 K/mm3 (140-440) L 04/12/21 06:54 Lymph % (Auto) 18.6 % (13.4-35.0) 04/05/21 07:46 [place] % (Auto) 12.6 % (0.0-7.3) H 04/05/21 07:46 Eos % (Auto) 3.4 % (0.0-4.3) 04/05/21 07:46 Baso % (Auto) 1.0 % (0.0-1.8) 04/05/21 07:46 Lymph # (Auto) 0.7 K/mm3 (1.2-5.4) L 04/05/21 07:46 [place] # (Auto) 0.5 K/mm3 (0.0-0.8) 04/05/21 07:46 Eos # (Auto) 0.1 K/mm3 (0.0-0.4) 04/05/21 07:46 Baso # (Auto) 0.0 K/mm3 (0.0-0.1) 04/05/21 07:46 Add Manual Diff Complete 03/07/21 05:23 Total Counted 100 03/07/21 05:23 Seg Neutrophils % 64.4 % (40.0-70.0) 04/05/21 07:46 Seg Neuts % (Manual) 78.0 % (40.0-70.0) H 03/07/21 05:23 Lymphocytes % (Manual) 13.0 % (13.4-35.0) L 03/07/21 05:23 Monocytes % (Manual) 9.0 % (0.0-7.3) H 03/07/21 05:23 Nucleated RBC % Not Reportable 03/07/21 05:23 Seg Neutrophils # 2.3 K/mm3 (1.8-7.7) 04/05/21 07:46 Seg Neutrophils # Man 2.0 K/mm3 (1.8-7.7) 03/07/21 05:23 Band Neutrophils # 0.0 K/mm3 03/07/21 05:23 Lymphocytes # (Manual) 0.3 K/mm3 (1.2-5.4) L 03/07/21 05:23 Abs React Lymphs (Man) 0.0 K/mm3 03/07/21 05:23 Monocytes # (Manual) 0.2 K/mm3 (0.0-0.8) 03/07/21 05:23 Eosinophils # (Manual) 0.0 K/mm3 (0.0-0.4) 03/07/21 05:23 Basophils # (Manual) 0.0 K/mm3 (0.0-0.1) 03/07/21 05:23 Metamyelocytes # 0.0 K/mm3 03/07/21 05:23 Myelocytes # 0.0 K/mm3 03/07/21 05:23 Promyelocytes # 0.0 K/mm3 03/07/21 05:23 Blast Cells # 0.0 K/mm3 03/07/21 05:23 WBC Morphology Not Reportable 03/07/21 05:23 Hypersegmented Neuts Not Reportable 03/07/21 05:23 Hyposegmented Neuts Not Reportable 03/07/21 05:23 Hypogranular Neuts Not Reportable 03/07/21 05:23 Smudge Cells Not Reportable 03/07/21 05:23 Toxic Granulation Not Reportable 03/07/21 05:23 Toxic Vacuolation Not Reportable 03/07/21 05:23 Dohle Bodies Not Reportable 03/07/21 05:23 Pelger-Huet Anomaly Not Reportable 03/07/21 05:23 Cosme Rods Not Reportable 03/07/21 05:23 Platelet Estimate Consistent w auto 03/07/21 05:23 Clumped Platelets Not Reportable 03/07/21 05:23 Plt Clumps, EDTA Not Reportable 03/07/21 05:23 Large Platelets Not Reportable 03/07/21 05:23 Giant Platelets Not Reportable 03/07/21 05:23 Platelet Satelliting Not Reportable 03/07/21 05:23 Plt Morphology Comment Not Reportable 03/07/21 05:23 RBC Morphology Not Reportable 03/07/21 05:23 Dimorphic RBCs Not Reportable 03/07/21 05:23 Polychromasia Not Reportable 03/07/21 05:23 Hypochromasia Not Reportable 03/07/21 05:23 Poikilocytosis Not Reportable 03/07/21 05:23 Anisocytosis Few 03/07/21 05:23 Microcytosis Not Reportable 03/07/21 05:23 Macrocytosis Not Reportable 03/07/21 05:23 Spherocytes Not Reportable 03/07/21 05:23 Pappenheimer Bodies Not Reportable 03/07/21 05:23 Sickle Cells Not Reportable 03/07/21 05:23 Target Cells Not Reportable 03/07/21 05:23 Tear Drop Cells Not Reportable 03/07/21 05:23 Ovalocytes Not Reportable 03/07/21 05:23 Helmet Cells Not Reportable 03/07/21 05:23 [place] Bodies Not Reportable 03/07/21 05:23 [place] Rings Not Reportable 03/07/21 05:23 [place] Cells Not Reportable 03/07/21 05:23 Bite Cells Not Reportable 03/07/21 05:23 Crenated Cell Not Reportable 03/07/21 05:23 Elliptocytes Not Reportable 03/07/21 05:23 Acanthocytes (Spur) Not Reportable 03/07/21 05:23 Rouleaux Not Reportable 03/07/21 05:23 Hemoglobin C Crystals Not Reportable 03/07/21 05:23 Schistocytes Not Reportable 03/07/21 05:23 Malaria parasites Not Reportable 03/07/21 05:23 Samir Bodies Not Reportable 03/07/21 05:23 Hem Pathologist Commnt No 03/07/21 05:23 PT 13.7 Sec. (12.2-14.9) 02/26/21 04:33 INR 1.00 (0.87-1.13) 02/26/21 04:33 Sodium 138 mmol/L (137-145) 04/12/21 06:54 Potassium 5.2 mmol/L (3.6-5.0) H D 04/12/21 06:54 Chloride 98.6 mmol/L (98-107) 04/12/21 06:54 Carbon Dioxide 30 mmol/L (22-30) 04/12/21 06:54 Anion Gap 15 mmol/L 04/12/21 06:54 BUN 62 mg/dL (9-20) H 04/12/21 06:54 Creatinine 7.0 mg/dL (0.8-1.3) H 04/12/21 06:54 Estimated GFR 8 ml/min 04/12/21 06:54 BUN/Creatinine Ratio 9 % 04/12/21 06:54 Glucose 107 mg/dL (75-100) H 04/12/21 06:54 POC Glucose 97 mg/dL (70-105) 04/14/21 12:04 Hemoglobin A1c 7.4 % (4-6) H 02/26/21 04:33 Calcium 9.4 mg/dL (8.4-10.2) 04/12/21 06:54 Phosphorus 3.40 mg/dL (2.5-4.5) 04/03/21 07:30 Magnesium 2.10 mg/dL (1.7-2.3) 02/17/21 02:24 Iron 52 ug/dL (49-181) 03/30/21 05:11 TIBC 203 mcg/dL (250-450) L 03/30/21 05:11 Ferritin 70.9 ng/mL (30.0-300.0) 03/30/21 05:11 Total Bilirubin 0.60 mg/dL (0.1-1.2) 04/05/21 07:46 Direct Bilirubin 0.3 mg/dL (0-0.2) H 03/14/21 07:24 Indirect Bilirubin 0.3 mg/dL 03/14/21 07:24 AST 34 units/L (5-40) 04/05/21 07:46 ALT 23 units/L (7-56) 04/05/21 07:46 Alkaline Phosphatase 183 units/L (35-129) H 04/05/21 07:46 Ammonia 68.0 umol/L (25-60) H 04/05/21 07:46 Total Creatine Kinase 86 units/L (55-170) 02/17/21 02:24 Total Protein 5.8 g/dL (6.3-8.2) L 04/05/21 07:46 Albumin 2.5 g/dL (3.9-5) L 04/05/21 07:46 Albumin/Globulin Ratio 0.8 % 04/05/21 07:46 Vitamin B12 1583 pg/mL (211-911) H 03/30/21 05:11 Folate 10.11 ng/mL (7.3-26.0) 03/30/21 05:11 TSH 0.986 mlU/mL (0.270-4.200) 02/17/21 02:24 Urine Color Yellow (Yellow) 02/17/21 Unknown Urine Turbidity Clear (Clear) 02/17/21 Unknown Urine pH 6.0 (5.0-7.0) 02/17/21 Unknown Ur Specific [place] 1.012 (1.003-1.030) 02/17/21 Unknown Urine Protein 100 mg/dl mg/dL (Negative) 02/17/21 Unknown Urine Glucose (UA) >=500 mg/dL (Negative) 02/17/21 Unknown Urine Ketones Neg mg/dL (Negative) 02/17/21 Unknown Urine Blood Neg (Negative) 02/17/21 Unknown Urine Nitrite Neg (Negative) 02/17/21 Unknown Urine Bilirubin Neg (Negative) 02/17/21 Unknown Urine Urobilinogen < 2.0 mg/dL (<2.0) 02/17/21 Unknown Ur Leukocyte Esterase Neg (Negative) 02/17/21 Unknown Urine WBC (Auto) 2.0 /HPF (0.0-6.0) 02/17/21 Unknown Urine RBC (Auto) 2.0 /HPF (0.0-6.0) 02/17/21 Unknown U Epithel Cells (Auto) < 1.0 /HPF (0-13.0) 02/17/21 Unknown Urine Bacteria (Auto) 1+ /HPF (Negative) 02/17/21 Unknown Salicylates < 0.3 mg/dL (2.8-20.0) L 02/17/21 02:24 Acetaminophen 5.0 ug/mL (10.0-30.0) L 02/17/21 02:24 Coronavirus (PCR) Positive (Negative) A 04/10/21 Unknown Hepatitis A IgM Ab Non-reactive (NonReactive) 02/28/21 12:37 Hep Bs Antigen Non-reactive (Negative) 03/28/21 18:57 Hep B Core IgM Ab Non-reactive (NonReactive) 02/28/21 12:37 Hepatitis C Antibody Non-reactive (NonReactive) 02/28/21 12:37 Blood Type A POSITIVE 03/07/21 06:31 Antibody Screen Negative 03/07/21 06:31 Crossmatch See Detail 03/07/21 06:31 Sr/IV: Voiding Method Incontinent Active Medications - Current Medications Current Medications: Generic Name Dose Route Start Last Admin Trade Name Freq PRN Reason Stop Dose Admin Acetaminophen 650 mg 02/18/21 22:38 03/09/21 13:15 Acetaminophen 325 Mg Tab PO 650 mg Q4H PRN Administration Pain MILD(1-3)/Fever >100.5/MOLINA Albuterol 2.5 mg 02/18/21 22:38 Albuterol 2.5 Mg/3 Ml Nebu IH Q3HRT PRN Shortness Of Breath Allopurinol 100 mg 02/20/21 10:00 04/14/21 09:44 Allopurinol 100 Mg Tab PO 100 mg QDAY LEYLA Administration Calcium Acetate 1,334 mg 02/20/21 08:30 04/14/21 12:28 Calcium Acetate 667 Mg Cap PO 1,334 mg TIDWM LEYLA Administration Dextrose 50 ml 03/29/21 12:00 Dextrose 50% In Water (25gm) 50 Ml Syringe IV Q30MIN PRN HYPOGLYCEMIA Protocol Diphenhydramine HCl 25 mg 02/23/21 09:10 03/24/21 09:01 Diphenhydramine 25 Mg Cap PO 25 mg BID PRN Administration Itching Famotidine 20 mg 02/19/21 10:00 04/14/21 09:44 Famotidine 20 Mg Tab PO 20 mg QAM LEYLA Administration Hydralazine HCl 10 mg 02/18/21 22:56 Hydralazine 20 Mg/1 Ml Inj IV Q6H PRN htn Hydroxyzine HCl 25 mg 03/24/21 10:38 Hydroxyzine Hcl 25 Mg Tab PO Q6H PRN Itching Sodium Chloride 100 mls @ 999 mls/hr 02/19/21 09:06 Nacl 0.9% IV OLIVIA PRN Hypotension Insulin Glargine 16 units 03/23/21 09:00 04/13/21 22:01 Insulin Glargine 100 Units/Ml SUB-Q 16 units QHS LEYLA Administration Insulin Human Lispro 0 unit 03/09/21 22:00 04/14/21 12:16 Insulin Lispro 100 Unit/Ml SUB-Q Not Given ACHS [facility] Protocol Lactulose 20 gm 03/09/21 18:00 04/14/21 12:29 Lactulose 20 Gm/30 Ml Oral Liqd PO 20 gm Q6HR LEYLA Administration Ondansetron HCl 4 mg 02/18/21 22:38 02/28/21 12:32 Ondansetron 4 Mg/2 Ml Inj IV 4 mg Q8H PRN Administration Nausea And Vomiting Polyethylene Glycol 17 gm 02/24/21 12:08 02/24/21 12:47 Polyethylene Glycol 3350 17 Gm Powder PO 17 gm QDAY PRN Administration Constipation Propranolol HCl 20 mg 02/20/21 10:00 04/14/21 09:50 Propranolol 10 Mg Tab PO Not Given BID LEYLA Rifaximin 550 mg 03/10/21 12:00 04/14/21 09:44 Rifaximin 550 Mg Tab PO 550 mg BID LEYLA Administration Sodium Chloride 10 ml 02/19/21 10:00 04/14/21 09:44 Sodium Chloride 0.9% 10 Ml Flush Syringe IV 10 ml BID LEYLA Administration Sodium Chloride 10 ml 02/18/21 22:38 Sodium Chloride 0.9% 10 Ml Flush Syringe IV PRN PRN LINE FLUSH Zolpidem Tartrate 5 mg 02/24/21 09:54 03/08/21 23:25 Zolpidem 5 Mg Tab PO 5 mg QHS PRN Administration Sleep Nutrition/Malnutrition Assess - Dietary Evaluation Nutrition/Malnutrition Findings: Nutrition Notes Start: 02/19/21 10:48 Freq: Status: Active Protocol: Document 04/12/21 11:23 ALISSA (Rec: 04/12/21 11:25 ALISSA [id number]) Nutrition Notes Initial or Follow up Reassessment Current Diagnosis CKD (stage V CKD),Diabetes Other Pertinent Diagnosis COVID-19 (+), hepatic encephalopathy, ascites Current Diet Renal/Consistent CHO + Nepro once daily Labs/Tests K 2.6 BUN 62 Cr 7 Pertinent Medications Phoslo Height 5 ft 11 in Weight 71.3 kg [place] Body Weight (kg) 78.18 BMI 21.9 Weight Status Appropriate Subjective/Other Information FU for intakes. Pt did not answer phone x2. Pt eating 100 % of meals, per chart. Percent of energy/protein needs met: 100%/100% Burn Absent Trauma Absent Current % PO Good (75-100%) Minimum of two criteria Yes Body Fat Depletion Mild depletion (non-severe) Fluid Accumulation Mild (non-severe) #2 Nutrition Diagnosis Increased nutrient needs ( specify in comment below) Diagnosis Progress(for reassessment Continues documentation) #1 Nutrition Diagnosis Malnutrition Diagnosis Progress(for reassessment Continues documentation) Is patient on ventilator? No Is Patient Ambulatory and/or Out of Bed No REE-([facility]-confined to bed) 0060.845 Calculation Used for Recommendations [facility] Additional Notes Pro needs >1.2g/kg/day Fluid needs 1-1.5L/day Nutrition Intervention Change Diet Order: Continue current Add Supplement/Snack (indicate name/kcal Nepro daily /protein ) Provides kCal: 425 Provides Protein (gm) 19 Goal #1 PO intake of meals plus ONS to meet at least 75% energy and pro needs Goal #2 Wound healing Follow-Up By: 04/19/21 Additional Comments FU for stable intakes and ONS tolerance
[2021-04-14] MEDS: ZOLPIDEM 5 MG TAB PO PRN (21:27)
[2021-04-14] MEDS: INSULIN GLARGINE 100 UNITS/ML SUB-Q SCH (23:17)
[2021-04-15] MEDS: LACTULOSE 20 GM/30 ML ORAL LIQD PO SCH ×5 (00:41→23:46)
[2021-04-15] MEDS: INSULIN LISPRO 100 UNIT/ML SUB-Q SCH ×4 (09:34→22:26)
[2021-04-15] MEDS: FAMOTIDINE 20 MG TAB PO SCH (09:35)
[2021-04-15] MEDS: RIFAXIMIN 550 MG TAB PO SCH ×2 (09:35→22:25)
[2021-04-15] MEDS: CALCIUM ACETATE 667 MG CAP PO SCH ×3 (09:35→20:01)
[2021-04-15] MEDS: allopurinoL 100 MG TAB PO SCH (09:44)
[2021-04-15] MEDS: PROPRANOLOL 10 MG TAB PO SCH ×2 (09:46→22:25)
--- NOTE | 2021-04-15 10:42 | Progress Note ---
Assessment and Plan 1. ESRD: Patient is on maintenance hemodialysis three times a week, MWF schedule. Meds dosage based on GFR. Hemodialysis: 02/19, 02/20, 02/22, 02/25, 02/27, 03/01, 03/04, 03/06, 03/08, 03/11, 03/13, 03/15, 03/18, 03/20, 03/22, 03/25, 03/27, 03/29, 04/01, 04/03, 04/05, 04/08, 04/10, 04/12. 2. FEN: Monitor lytes and volume status. 3. Anemia, POA: 2/2 ESRD and Liver disease. Epogen with HD. IV Iron 125 mg 04/05. PRBC as needed. 4. Cirrhosis with h/o hepatic encephalopathy: Lactulose and Rifaximin. Monitor. 5. DM type 2: SSI. Monitor. 6. Thrombocytopenia, POA. 7. COVID infection: Isolation precautions. Await placement. Subjective: Patient was seen and examined at the bedside. General Appearance: General appearance: well-developed, appears stated age, not in distress HEENT: ATNC, pupils equal Neck: trachea midline Respiratory: ctab Heart: regular, S1S2, no murmur Abdomen: soft, bowel sounds heard, distended, not tender Integumentary: no rash, warm and dry Neurologic: lethargic, not following any command Ext: no edema, R BKA Hemodialysis access: R arm AVF Subjective Date of service: 04/15/21 Principal diagnosis: Acute encephalopathy Objective - Vital Signs Vital signs: Vital Signs - 12hr 04/14/21 04/15/21 04/15/21 23:00 04:16 04:42 Temperature 98.2 F Pulse Rate 89 Respiratory 20 Rate Blood Pressure 139/50 160/67 Blood Pressure [Left] O2 Sat by Pulse Oximetry 04/15/21 04/15/21 04:44 09:46 Temperature Pulse Rate 68 82 Respiratory 20 Rate Blood Pressure 137/72 Blood Pressure 160/67 [Left] O2 Sat by Pulse 96 Oximetry - Lab 04/12/21 06:54 04/12/21 06:54 Most recent lab results Calcium 9.4 mg/dL (8.4-10.2) 04/12/21 06:54 Phosphorus 3.40 mg/dL (2.5-4.5) 04/03/21 07:30 Magnesium 2.10 mg/dL (1.7-2.3) 02/17/21 02:24 Medications & Allergies - Medications Allergies/Adverse Reactions: Allergies No Known Allergies Allergy (Verified 02/16/21 18:26) Home Medications: Home Medications Medication Instructions Recorded Confirmed Last Taken Type Calcium Acetate [Phoslo] 1,334 mg PO TIDWM #90 capsule 03/01/21 Unknown Rx Famotidine [Pepcid] 20 mg PO QAM #30 tablet 03/01/21 Unknown Rx Lactulose [Cephulac] 20 gm PO Q8HR 30 Days 03/01/21 Unknown Rx Lispro Insulin [HumaLOG] See Protocol SQ ACHS 30 Days 03/01/21 Unknown Rx allopurinoL [Zyloprim] 100 mg PO QDAY #30 tablet 03/01/21 Unknown Rx propranoloL [Inderal] 20 mg PO BID #60 tablet 03/01/21 Unknown Rx Active Medications: Generic Name Dose Route Start Last Admin Trade Name Freq PRN Reason Stop Dose Admin Acetaminophen 650 mg 02/18/21 22:38 03/09/21 13:15 Acetaminophen 325 Mg Tab PO 650 mg Q4H PRN Administration Pain MILD(1-3)/Fever >100.5/MOLINA Albuterol 2.5 mg 02/18/21 22:38 Albuterol 2.5 Mg/3 Ml Nebu IH Q3HRT PRN Shortness Of Breath Allopurinol 100 mg 02/20/21 10:00 04/15/21 09:44 Allopurinol 100 Mg Tab PO 100 mg QDAY LEYLA Administration Calcium Acetate 1,334 mg 02/20/21 08:30 04/15/21 09:35 Calcium Acetate 667 Mg Cap PO 1,334 mg TIDWM LEYLA Administration Dextrose 50 ml 03/29/21 12:00 Dextrose 50% In Water (25gm) 50 Ml Syringe IV Q30MIN PRN HYPOGLYCEMIA Protocol Diphenhydramine HCl 25 mg 02/23/21 09:10 03/24/21 09:01 Diphenhydramine 25 Mg Cap PO 25 mg BID PRN Administration Itching Famotidine 20 mg 02/19/21 10:00 04/15/21 09:35 Famotidine 20 Mg Tab PO 20 mg QAM LEYLA Administration Hydralazine HCl 10 mg 02/18/21 22:56 Hydralazine 20 Mg/1 Ml Inj IV Q6H PRN htn Hydroxyzine HCl 25 mg 03/24/21 10:38 Hydroxyzine Hcl 25 Mg Tab PO Q6H PRN Itching Sodium Chloride 100 mls @ 999 mls/hr 02/19/21 09:06 Nacl 0.9% IV OLIVIA PRN Hypotension Insulin Glargine 16 units 03/23/21 09:00 04/14/21 23:17 Insulin Glargine 100 Units/Ml SUB-Q 16 units QHS LEYLA Administration Insulin Human Lispro 0 unit 03/09/21 22:00 04/15/21 09:34 Insulin Lispro 100 Unit/Ml SUB-Q 4 unit ACHS LEYLA Administration Protocol Lactulose 20 gm 03/09/21 18:00 04/15/21 06:32 Lactulose 20 Gm/30 Ml Oral Liqd PO 20 gm Q6HR LEYLA Administration Ondansetron HCl 4 mg 02/18/21 22:38 02/28/21 12:32 Ondansetron 4 Mg/2 Ml Inj IV 4 mg Q8H PRN Administration Nausea And Vomiting Polyethylene Glycol 17 gm 02/24/21 12:08 02/24/21 12:47 Polyethylene Glycol 3350 17 Gm Powder PO 17 gm QDAY PRN Administration Constipation Propranolol HCl 20 mg 02/20/21 10:00 04/15/21 09:46 Propranolol 10 Mg Tab PO 20 mg BID LEYLA Administration Rifaximin 550 mg 03/10/21 12:00 04/15/21 09:35 Rifaximin 550 Mg Tab PO 550 mg BID LEYLA Administration Sodium Chloride 10 ml 02/19/21 10:00 04/15/21 09:35 Sodium Chloride 0.9% 10 Ml Flush Syringe IV 10 ml BID LEYLA Administration Sodium Chloride 10 ml 02/18/21 22:38 Sodium Chloride 0.9% 10 Ml Flush Syringe IV PRN PRN LINE FLUSH Zolpidem Tartrate 5 mg 02/24/21 09:54 04/14/21 21:27 Zolpidem 5 Mg Tab PO 5 mg QHS PRN Administration Sleep
--- NOTE | 2021-04-15 11:48 | Progress Note ---
Assessment and Plan Assessment and plan: A/p -- Hepatic encephalopathy due to hepatic cirrhosis cont lactulose, Neuro check, seizure precaution, aspiration precaution, fall precautions, continue to monitor. -- End stage renal disease Nephrology team consulted, strict I's/O, monitor urine output every shift, dialysis as per renal team, avoid nephrotoxic agents. --Metabolic Acidosis Nephrology team consulted, dialysis as per renal team. --Hyponatremia Monitor BMP, monitor fluid balance. -- Hyperammonemia Continue lactulose --Diabetes mellitus with hyperglycemia Consistent carb diet, SSI -- hyperkalemia, Improvement with dialysis --Ascitis, s/p paracentesis drained 6.2l of ascitic fluid --Sacral wound, cont wound care -- Moderate Protein Calorie Malnutrition, nutrition consulted --Noncompliance, counseled for medication compliance -- Thrombocytopenia --DVT Px, SCD --DNR code status --Disposition: needs placement, CM waiting for placement -- Hepatic encephalopathy -Patient alert and oriented x3. due to hepatic cirrhosis has resolved cont lactulose, Neuro check, seizure precaution, aspiration precaution, fall precautions, continue to monitor. -Diarrhea resolved was secondary to lactulose. Patient is alert no encephalopathy. -- End stage renal disease Nephrology team consulted, strict I's/O, monitor urine output every shift, dialysis as per renal team, avoid nephrotoxic agents. Await dialysis center. Still no dialysis center. We will dialyze as indicated. --Metabolic Acidosis Nephrology team consulted, dialysis as per renal team. --Hyponatremia Monitor BMP, monitor fluid balance.-Does not require to be checked today we will check every other day now. -- Hyperammonemia Continue lactulose --Pruritus Add Atarax most likely secondary to liver failure --Diabetes mellitus with hyperglycemia Consistent carb diet, SSI -- hyperkalemia, Improvement with dialysis --Ascites, s/p paracentesis drained 6.2l of ascitic fluid -no further ascites at this time. --Sacral wound, pain control continue local wound care. -- Moderate Protein Calorie Malnutrition, nutrition consulted --Noncompliance, counseled for medication compliance --Depression discussed about depression and initiation of Zoloft Waiting for transfer to detention facility 02/19: Resume dialysis will adjust insulin for better coverage. Very poor prognosis considering poor medical compliance. Agree with hospice recommendation. Will obtain wound care to continue to manage. Monitor anemia as patient was pretty anemic during the last hospitalization. Required transfusion. 02/20: Continues to undergo dialysis no change in mental status noted. Tolerating medications. Blood sugar mildly elevated adjusted insulin yesterday when awake for the patient received a dose today and if still elevated will adjust. Again case management is working on discharge plan for this patient as he is pending placement 02/21 patient complains of right hip pain. He said he fell few weeks ago and is concerned about another fracture. He had a fracture about 8 weeks ago and had surgery. Will obtain X ray right hip. Patient pending placement. 02/22 Patient seen in Dialysis Unit. He states hip pain improved. No other complaints. Right hip X ray done yesterday report read may be healing fracture or acute fracture. Will discuss with Orthopedic Surgeon Patient pending placement 02/23 Less hip pain. Today complains of generalized itching. Will start Benadryl po prn. Orthopedic consulted to evaluate right hip. Patient pending placement 02/24 Less hip pain. Generalized itching now resolved. Orthopedic consulted to evaluate right hip. He complains of sleeplessness. Will give Ambien prn Patient pending placement 02/25 Patient requested DNR status yesterday. I discussed with him and he signed forms. He also complains of worsening abdominal distension and requested tapping, Will order paracentesis. Right hip evaluated by Dr. Trivedi and conservative management recommended. 02/26: Plan for paracentesis today. Need to set up dialysis as outpatient. merchandise manager working on discharge planning. 02/27: Patient did not sign the consent for paracentesis yesterday so paracentesis was done today and aspirated 6.2L ascitic fluid. Patient refusing medication per RN. Getting dialysis. Patient noted slightly altered today, will place NG tube remains altered and keep refusing oral meds, order for ammonia level and w ill cont lactulose. 02/28: Patient appears much more calm and cooperative today. He stated that he has been refusing procedure and medication as he believes he was not in the right state of his mind. Patient acknowledges the importance of being compliant and he promises that he will take the medications as he will be given. Discharge planning per case management as patient would need outpatient dialysis center set up and personal chcf set up. 03/01/21: Patient has residential setting but according to oil field caser no available RN to accept the patient till Thursday. Continue supportive care. Discharge pending on placement. 03/02/21 -03/04/21: Discharge pending on placement, continue to monitor clinically. Continue current management and plan and supportive care. Patient need SNF placement. 03/05/2021; Awaiting SNF placement for discharge. Prognosis is very poor. Patient is nonresponsive. I try to reach to his son over the phone but could not get in touch. Patient is appropriate for hospice care. 03/06/2021; patient is awaiting SNF placement. Patient was alert and oriented. No confusion. Patient is stable to be discharged back to SNF. 03/07/2021; patient has hemoglobin of 6.8 this morning. A unit of blood ordered. Will monitor H&H. Nephrology is following for dialysis. 03/08/2021; patient's hemoglobin was 6.8 yesterday and transfused a unit of blood. I ordered yesterday to do posttransfusion H&H and was not done. CBC was ordered to be done this morning but was not done. COVID-19 test was done on 03/06 and positive. Nephrology is following the patient for his dialysis. Plan is to discharge him to SNF. Will follow with case management because patient is Covid positive. 03/09/2021; patient's repeat Covid test on 03/08/2021 was positive. Patient is p ending for SNF Placement. Patient had hypoglycemia yesterday and patient was placed on Lantus and his sliding scale adjusted to high dose. Will monitor and adjust as needed. 03/10/2021; pending SNF placement. Covid test was positive on and . 03/11/2021; patient has hepatic encephalopathy and his ammonia level is very high, patient is currently on lactulose and rifaximin. Ammonia level is t rending down. Nephrology is following for dialysis. Patient has positive Covid test last one was on 03/08, that makes placement difficult. Continue with case management. 03/12: Still awaiting placement, discussed with nursing staff to monitor mental status changes. Will check ammonia level. Continue to adjust blood sugar. Complicated by COVID POSITIVELY. Awaiting placement for the patient. Also dialysis chair time. I have discussed with case management as my understanding was that patient was to go for hospice but this plan appears to have changed possibly not clear to me at this time 03/13: Continue supportive care crush medications that can be crushed. Ammonia level is elevated but not as elevated as previously. Continue lactulose advised nursing staff that this should be given as ordered to communicate with the night team also. Unfortunately when the patient gets better he refuses his lactulose. I truly believe that we should strongly consider palliative care for this pa tient but nevertheless if he wants to continue dialysis and will be compliant with his medications this is definitely an option can be pursued. Aspiration precautions monitor hemoglobin and platelets. 03/14: Patient seen and examined, more awake today. Continue supportive care, patient was made DNR wade, signed the form today after confirming the patient and also the physician. Monitor for fever. AWAITING PLACEMENT. poor prognosis 03/15/21 Patient is seen and examined. Lab and medication reviewed. Patient denied any chest pain or shortness of breath. Patient is more awake alert today. Patient is getting them hemodialysis today. Continue current management. Awaiting placement. 03/16/21 patient seen and examined. Lab and medication reviewed. Patient feels better. Hemoglobin 8.2 and hematocrit 23.9. Complained of pain in the butt. No other complain. Continue current management and supportive care. Patient is waiting for placement. 03/17: Patient remains with poor prognosis refusing dietary intake. Again discussed hospice and palliative care management considering his current medical condition and declining poor prognostic factors. Discussed with nursing staff patient will continue with lactulose had refused this morning but did take it yesterday. Continue aspiration precautions. Discussed the importance of taking the medication the patient verbalized under standing 03/18: Patient undergoing HD discharge planning ongoing discussed with case management team. Covid test ordered today for placement purposes. 03/19/2021; Covid test was ordered and result is pending. Pending placement. 03/20/2021; patient's Covid test was positive again on 03/20/2021. Pending placement. 03/21/2021. Patient cooperative no acute distress at this time. Complains of loose stool diarrhea. Still awaiting placement. Unable to find hemodialysis placement 03/22/2021. Patient last Covid test was positive however initial test was greater than 14 days ago. Patient is no longer infected. Unable to find hemodialysis line at present. Patient being evaluated for [facility]. 03/23/2021. Patient continues to state he feels good much better at this time. Resting comfortably. No distress noted. Still awaiting hemodialysis center. 03/24/2021 patient with flat mood discussed about depression. Resting comfortably watching TV. 03/25/2021. Patient denies depression at this time. Complains of itching all over. When am i getting out of here 03/26/2021. Case management reports patient is still awaiting hemodialysis placement 03/27/2021. Case management reports patient is still awaiting hemodialysis placement. Patient is on maintenance hemodialysis three times a week, MWF schedule. Cont. Lactulose and Rifaximin. Epogen with HD. 03/28/2021. Case management reports patient is still awaiting hemodialysis placement. 03/29/2021. Plan is for the patient to go to [facility] and awaiting on hemodialysis arrangements. [facility] and does not have a bed available. Covid test ordered. We will continue to follow up with case management on discharge planning. 03/30/2021. No new developments. Await hemodialysis placement and potential transfer to [facility]. 03/31/2021. No new developments. Await hemodialysis placement and potential transfer to [facility]. 04/03/2021 Waiting for transfer to detention facility 04/04/2021 Waiting for transfer to detention facility 04/05/2021 Undergoing hemodialysis during making examination Waiting for placement 04/06/2021 Waiting for placement 04/07/2021 Waiting for placement 04/08/2021 Waiting for placement 04/09: Patient seen and examined a little bit lethargic otherwise no new changes. Awaiting placement noted thrombocytopenia continue to monitor. Discussed with case management and Nursing staff. 04/10: Thrombocytopenia persist, continue to monitor. Still with lethargy. Continue to monitor, Aspiration precautions. Continue with HD 04/11: Discussed with case management patient may possibly have a HD time today and will be able to be discharged unfortunately I think patient has a really poor prognosis considering his liver failure and my recommendation remains for hospice management to be considered outpatient. Patient however wants to continue dialysis. We will continue lactulose. 04/12: Today admitted with hyperkalemia expect correction with dialysis. We will recheck BMP in a.m.. Discussed with nursing staff will continue lactulose at this time. Awaiting placement. Poor prognosis 04/13: m continues with very poor prognosis considering overall clinical condition. Family will had a discussion with case management about hospice. Case management working on this while we will continue to work on other discharge plans. 04/14: Tolerating tube feeds awaiting placement and possible hospice placement. 04/15: Brief summary: 55 YO Male with ESRD on HD, Noncompliance with outpatient dialysis, Anemia, HBV, Chronic Liver Disease, Cirrhosis complicated by Esophageal Varices, HTN, Debility, DM presents to ED with confusion with diminished cognition. Patient family report the patient was "not acting like himself" and found to have worsening confusion over the past 2 days. In the ER the patient was found to have hepatic encephalopathy complicated by diminished cognition, end-stage renal disease in need of urgent dialysis, as well as uncon trolled diabetes, and acidosis. Nephrology team consulted in ED and patient was then admitted for further evaluation and Mx. He has been in the hospital for about 55 days continues to go on dialysis. Repeat Covid test has always come back positive although he is not requiring oxygen. He does have intermittent confusion and does not seem to have any good prognosis considering his alcoholic hepatitis. Continue to encourage nurses to give him his lactulose. He is awaiting hospice decision. History Interval history: Patient seen and examined no acute distress. still with some lethargic a bit more responsive today. Answered all question about how he is feeling since he is okay. Hospitalist Physical - Physical exam Narrative exam: VITAL SIGNS: Reviewed. GENERAL: The patient appears normally developed, awake lying down in a semiprone position pale, vital signs as documented. HEAD: No signs of head trauma. EYES: Pupils are equal. Extraocular motions intact. Icteric sclera-Jaundice EARS: Hearing grossly intact. MOUTH: Oropharynx is normal. NECK: No adenopathy, no JVD. CHEST: Chest with diminished breath sounds bilaterally. No wheezes, rales, or rhonchi. CARDIAC: Regular rate and rhythm. S1 and S2, without murmurs, gallops, or rubs. VASCULAR: No Edema. Peripheral pulses normal and equal in all extremities. ABDOMEN: Soft, non tender and non distended. No rebound or guarding, and no masses palpated. Bowel Sounds normal. MUSCULOSKELETAL: Right BKA extremities without clubbing, cyanosis or edema. NEUROLOGIC EXAM: Lethargic and stuporous. No focal sensory or strength deficits. PSYCHIATRIC: Unable to clearly examine SKIN: Jaundice detail exam as documented in skin assessment - Constitutional Vitals: Temp Pulse Resp BP Pulse Ox 98.2 F 82 20 137/72 96 04/15/21 04:42 04/15/21 09:46 04/15/21 04:44 04/15/21 09:46 04/15/21 04:44 General appearance: Present: no acute distress, well-nourished Results - Labs CBC & Chem 7: 04/12/21 06:54 04/12/21 06:54 Labs: Laboratory Last Values WBC 3.5 K/mm3 (4.5-11.0) L 04/12/21 06:54 RBC 2.71 M/mm3 (3.65-5.03) L 04/12/21 06:54 Hgb 8.3 gm/dl (11.8-15.2) L 04/12/21 06:54 Hct 25.1 % (35.5-45.6) L 04/12/21 06:54 MCV 93 fl (84-94) 04/12/21 06:54 MCH 31 pg (28-32) 04/12/21 06:54 MCHC 33 % (32-34) 04/12/21 06:54 RDW 20.1 % (13.2-15.2) H 04/12/21 06:54 Plt Count 105 K/mm3 (140-440) L 04/12/21 06:54 Lymph % (Auto) 18.6 % (13.4-35.0) 04/05/21 07:46 [place] % (Auto) 12.6 % (0.0-7.3) H 04/05/21 07:46 Eos % (Auto) 3.4 % (0.0-4.3) 04/05/21 07:46 Baso % (Auto) 1.0 % (0.0-1.8) 04/05/21 07:46 Lymph # (Auto) 0.7 K/mm3 (1.2-5.4) L 04/05/21 07:46 [place] # (Auto) 0.5 K/mm3 (0.0-0.8) 04/05/21 07:46 Eos # (Auto) 0.1 K/mm3 (0.0-0.4) 04/05/21 07:46 Baso # (Auto) 0.0 K/mm3 (0.0-0.1) 04/05/21 07:46 Add Manual Diff Complete 03/07/21 05:23 Total Counted 100 03/07/21 05:23 Seg Neutrophils % 64.4 % (40.0-70.0) 04/05/21 07:46 Seg Neuts % (Manual) 78.0 % (40.0-70.0) H 03/07/21 05:23 Lymphocytes % (Manual) 13.0 % (13.4-35.0) L 03/07/21 05:23 Monocytes % (Manual) 9.0 % (0.0-7.3) H 03/07/21 05:23 Nucleated RBC % Not Reportable 03/07/21 05:23 Seg Neutrophils # 2.3 K/mm3 (1.8-7.7) 04/05/21 07:46 Seg Neutrophils # Man 2.0 K/mm3 (1.8-7.7) 03/07/21 05:23 Band Neutrophils # 0.0 K/mm3 03/07/21 05:23 Lymphocytes # (Manual) 0.3 K/mm3 (1.2-5.4) L 03/07/21 05:23 Abs React Lymphs (Man) 0.0 K/mm3 03/07/21 05:23 Monocytes # (Manual) 0.2 K/mm3 (0.0-0.8) 03/07/21 05:23 Eosinophils # (Manual) 0.0 K/mm3 (0.0-0.4) 03/07/21 05:23 Basophils # (Manual) 0.0 K/mm3 (0.0-0.1) 03/07/21 05:23 Metamyelocytes # 0.0 K/mm3 03/07/21 05:23 Myelocytes # 0.0 K/mm3 03/07/21 05:23 Promyelocytes # 0.0 K/mm3 03/07/21 05:23 Blast Cells # 0.0 K/mm3 03/07/21 05:23 WBC Morphology Not Reportable 03/07/21 05:23 Hypersegmented Neuts Not Reportable 03/07/21 05:23 Hyposegmented Neuts Not Reportable 03/07/21 05:23 Hypogranular Neuts Not Reportable 03/07/21 05:23 Smudge Cells Not Reportable 03/07/21 05:23 Toxic Granulation Not Reportable 03/07/21 05:23 Toxic Vacuolation Not Reportable 03/07/21 05:23 Dohle Bodies Not Reportable 03/07/21 05:23 Pelger-Huet Anomaly Not Reportable 03/07/21 05:23 Cosme Rods Not Reportable 03/07/21 05:23 Platelet Estimate Consistent w auto 03/07/21 05:23 Clumped Platelets Not Reportable 03/07/21 05:23 Plt Clumps, EDTA Not Reportable 03/07/21 05:23 Large Platelets Not Reportable 03/07/21 05:23 Giant Platelets Not Reportable 03/07/21 05:23 Platelet Satelliting Not Reportable 03/07/21 05:23 Plt Morphology Comment Not Reportable 03/07/21 05:23 RBC Morphology Not Reportable 03/07/21 05:23 Dimorphic RBCs Not Reportable 03/07/21 05:23 Polychromasia Not Reportable 03/07/21 05:23 Hypochromasia Not Reportable 03/07/21 05:23 Poikilocytosis Not Reportable 03/07/21 05:23 Anisocytosis Few 03/07/21 05:23 Microcytosis Not Reportable 03/07/21 05:23 Macrocytosis Not Reportable 03/07/21 05:23 Spherocytes Not Reportable 03/07/21 05:23 Pappenheimer Bodies Not Reportable 03/07/21 05:23 Sickle Cells Not Reportable 03/07/21 05:23 Target Cells Not Reportable 03/07/21 05:23 Tear Drop Cells Not Reportable 03/07/21 05:23 Ovalocytes Not Reportable 03/07/21 05:23 Helmet Cells Not Reportable 03/07/21 05:23 Merc[place] Bodies Not Reportable 03/07/21 05:23 Hanahan Rings Not Reportable 03/07/21 05:23 Kathy Cells Not Reportable 03/07/21 05:23 Bite Cells Not Reportable 03/07/21 05:23 Crenated Cell Not Reportable 03/07/21 05:23 Elliptocytes Not Reportable 03/07/21 05:23 Acanthocytes (Spur) Not Reportable 03/07/21 05:23 Rouleaux Not Reportable 03/07/21 05:23 Hemoglobin C Crystals Not Reportable 03/07/21 05:23 Schistocytes Not Reportable 03/07/21 05:23 Malaria parasites Not Reportable 03/07/21 05:23 Samir Bodies Not Reportable 03/07/21 05:23 Hem Pathologist Commnt No 03/07/21 05:23 PT 13.7 Sec. (12.2-14.9) 02/26/21 04:33 INR 1.00 (0.87-1.13) 02/26/21 04:33 Sodium 138 mmol/L (137-145) 04/12/21 06:54 Potassium 5.2 mmol/L (3.6-5.0) H D 04/12/21 06:54 Chloride 98.6 mmol/L (98-107) 04/12/21 06:54 Carbon Dioxide 30 mmol/L (22-30) 04/12/21 06:54 Anion Gap 15 mmol/L 04/12/21 06:54 BUN 62 mg/dL (9-20) H 04/12/21 06:54 Creatinine 7.0 mg/dL (0.8-1.3) H 04/12/21 06:54 Estimated GFR 8 ml/min 04/12/21 06:54 BUN/Creatinine Ratio 9 % 04/12/21 06:54 Glucose 107 mg/dL (75-100) H 04/12/21 06:54 POC Glucose 233 mg/dL (70-105) H 04/15/21 08:18 Hemoglobin A1c 7.4 % (4-6) H 02/26/21 04:33 Calcium 9.4 mg/dL (8.4-10.2) 04/12/21 06:54 Phosphorus 3.40 mg/dL (2.5-4.5) 04/03/21 07:30 Magnesium 2.10 mg/dL (1.7-2.3) 02/17/21 02:24 Iron 52 ug/dL (49-181) 03/30/21 05:11 TIBC 203 mcg/dL (250-450) L 03/30/21 05:11 Ferritin 70.9 ng/mL (30.0-300.0) 03/30/21 05:11 Total Bilirubin 0.60 mg/dL (0.1-1.2) 04/05/21 07:46 Direct Bilirubin 0.3 mg/dL (0-0.2) H 03/14/21 07:24 Indirect Bilirubin 0.3 mg/dL 03/14/21 07:24 AST 34 units/L (5-40) 04/05/21 07:46 ALT 23 units/L (7-56) 04/05/21 07:46 Alkaline Phosphatase 183 units/L (35-129) H 04/05/21 07:46 Ammonia 68.0 umol/L (25-60) H 04/05/21 07:46 Total Creatine Kinase 86 units/L (55-170) 02/17/21 02:24 Total Protein 5.8 g/dL (6.3-8.2) L 04/05/21 07:46 Albumin 2.5 g/dL (3.9-5) L 04/05/21 07:46 Albumin/Globulin Ratio 0.8 % 04/05/21 07:46 Vitamin B12 1583 pg/mL (211-911) H 03/30/21 05:11 Folate 10.11 ng/mL (7.3-26.0) 03/30/21 05:11 TSH 0.986 mlU/mL (0.270-4.200) 02/17/21 02:24 Urine Color Yellow (Yellow) 02/17/21 Unknown Urine Turbidity Clear (Clear) 02/17/21 Unknown Urine pH 6.0 (5.0-7.0) 02/17/21 Unknown Ur Specific [place] 1.012 (1.003-1.030) 02/17/21 Unknown Urine Protein 100 mg/dl mg/dL (Negative) 02/17/21 Unknown Urine Glucose (UA) >=500 mg/dL (Negative) 02/17/21 Unknown Urine Ketones Neg mg/dL (Negative) 02/17/21 Unknown Urine Blood Neg (Negative) 02/17/21 Unknown Urine Nitrite Neg (Negative) 02/17/21 Unknown Urine Bilirubin Neg (Negative) 02/17/21 Unknown Urine Urobilinogen < 2.0 mg/dL (<2.0) 02/17/21 Unknown Ur Leukocyte Esterase Neg (Negative) 02/17/21 Unknown Urine WBC (Auto) 2.0 /HPF (0.0-6.0) 02/17/21 Unknown Urine RBC (Auto) 2.0 /HPF (0.0-6.0) 02/17/21 Unknown U Epithel Cells (Auto) < 1.0 /HPF (0-13.0) 02/17/21 Unknown Urine Bacteria (Auto) 1+ /HPF (Negative) 02/17/21 Unknown Salicylates < 0.3 mg/dL (2.8-20.0) L 02/17/21 02:24 Acetaminophen 5.0 ug/mL (10.0-30.0) L 02/17/21 02:24 Coronavirus (PCR) Positive (Negative) A 04/10/21 Unknown Hepatitis A IgM Ab Non-reactive (NonReactive) 02/28/21 12:37 Hep Bs Antigen Non-reactive (Negative) 03/28/21 18:57 Hep B Core IgM Ab Non-reactive (NonReactive) 02/28/21 12:37 Hepatitis C Antibody Non-reactive (NonReactive) 02/28/21 12:37 Blood Type A POSITIVE 03/07/21 06:31 Antibody Screen Negative 03/07/21 06:31 Crossmatch See Detail 03/07/21 06:31 Sr/IV: Voiding Method Incontinent Active Medications - Current Medications Current Medications: Generic Name Dose Route Start Last Admin Trade Name Freq PRN Reason Stop Dose Admin Acetaminophen 650 mg 02/18/21 22:38 03/09/21 13:15 Acetaminophen 325 Mg Tab PO 650 mg Q4H PRN Administration Pain MILD(1-3)/Fever >100.5/MOLINA Albuterol 2.5 mg 02/18/21 22:38 Albuterol 2.5 Mg/3 Ml Nebu IH Q3HRT PRN Shortness Of Breath Allopurinol 100 mg 02/20/21 10:00 04/15/21 09:44 Allopurinol 100 Mg Tab PO 100 mg QDAY LEYLA Administration Calcium Acetate 1,334 mg 02/20/21 08:30 04/15/21 09:35 Calcium Acetate 667 Mg Cap PO 1,334 mg TIDWM LEYLA Administration Dextrose 50 ml 03/29/21 12:00 Dextrose 50% In Water (25gm) 50 Ml Syringe IV Q30MIN PRN HYPOGLYCEMIA Protocol Diphenhydramine HCl 25 mg 02/23/21 09:10 03/24/21 09:01 Diphenhydramine 25 Mg Cap PO 25 mg BID PRN Administration Itching Famotidine 20 mg 02/19/21 10:00 04/15/21 09:35 Famotidine 20 Mg Tab PO 20 mg QAM LEYLA Administration Hydralazine HCl 10 mg 02/18/21 22:56 Hydralazine 20 Mg/1 Ml Inj IV Q6H PRN htn Hydroxyzine HCl 25 mg 03/24/21 10:38 Hydroxyzine Hcl 25 Mg Tab PO Q6H PRN Itching Sodium Chloride 100 mls @ 999 mls/hr 02/19/21 09:06 Nacl 0.9% IV OLIVIA PRN Hypotension Insulin Glargine 16 units 03/23/21 09:00 04/14/21 23:17 Insulin Glargine 100 Units/Ml SUB-Q 16 units QHS LEYLA Administration Insulin Human Lispro 0 unit 03/09/21 22:00 04/15/21 09:34 Insulin Lispro 100 Unit/Ml SUB-Q 4 unit ACHS LEYLA Administration Protocol Lactulose 20 gm 03/09/21 18:00 04/15/21 06:32 Lactulose 20 Gm/30 Ml Oral Liqd PO 20 gm Q6HR LEYLA Administration Ondansetron HCl 4 mg 02/18/21 22:38 02/28/21 12:32 Ondansetron 4 Mg/2 Ml Inj IV 4 mg Q8H PRN Administration Nausea And Vomiting Polyethylene Glycol 17 gm 02/24/21 12:08 02/24/21 12:47 Polyethylene Glycol 3350 17 Gm Powder PO 17 gm QDAY PRN Administration Constipation Propranolol HCl 20 mg 02/20/21 10:00 04/15/21 09:46 Propranolol 10 Mg Tab PO 20 mg BID LEYLA Administration Rifaximin 550 mg 03/10/21 12:00 04/15/21 09:35 Rifaximin 550 Mg Tab PO 550 mg BID LEYLA Administration Sodium Chloride 10 ml 02/19/21 10:00 04/15/21 09:35 Sodium Chloride 0.9% 10 Ml Flush Syringe IV 10 ml BID LEYLA Administration Sodium Chloride 10 ml 02/18/21 22:38 Sodium Chloride 0.9% 10 Ml Flush Syringe IV PRN PRN LINE FLUSH Zolpidem Tartrate 5 mg 02/24/21 09:54 04/14/21 21:27 Zolpidem 5 Mg Tab PO 5 mg QHS PRN Administration Sleep Nutrition/Malnutrition Assess - Dietary Evaluation Nutrition/Malnutrition Findings: Nutrition Notes Start: 02/19/21 10:48 Freq: Status: Active Protocol: Document 04/12/21 11:23 (Rec: 04/12/21 11:25 [id number]) Nutrition Notes Initial or Follow up Reassessment Current Diagnosis CKD (stage V CKD),Diabetes Other Pertinent Diagnosis COVID-19 (+), hepatic encephalopathy, ascites Current Diet Renal/Consistent CHO + Nepro once daily Labs/Tests K 2.6 BUN 62 Cr 7 Pertinent Medications Phoslo Height 5 ft 11 in Weight 71.3 kg [place] Body Weight (kg) 78.18 BMI 21.9 Weight Status Appropriate Subjective/Other Information FU for intakes. Pt did not answer phone x2. Pt eating 100 % of meals, per chart. Percent of energy/protein needs met: 100%/100% Burn Absent Trauma Absent Current % PO Good (75-100%) Minimum of two criteria Yes Body Fat Depletion Mild depletion (non-severe) Fluid Accumulation Mild (non-severe) #2 Nutrition Diagnosis Increased nutrient needs ( specify in comment below) Diagnosis Progress(for reassessment Continues documentation) #1 Nutrition Diagnosis Malnutrition Diagnosis Progress(for reassessment Continues documentation) Is patient on ventilator? No Is Patient Ambulatory and/or Out of Bed No REE-([facility]-confined to bed) [phone] Calculation Used for Recommendations [facility] Additional Notes Pro needs >1.2g/kg/day Fluid needs 1-1.5L/day Nutrition Intervention Change Diet Order: Continue current Add Supplement/Snack (indicate name/kcal Nepro daily /protein ) Provides kCal: 425 Provides Protein (gm) 19 Goal #1 PO intake of meals plus ONS to meet at least 75% energy and pro needs Goal #2 Wound healing Follow-Up By: 04/19/21 Additional Comments FU for stable intakes and ONS tolerance
[2021-04-15] MEDS: INSULIN GLARGINE 100 UNITS/ML SUB-Q SCH (22:24)
[2021-04-16] MEDS: LACTULOSE 20 GM/30 ML ORAL LIQD PO SCH ×4 (06:58→23:32)
--- NOTE | 2021-04-16 07:45 | Progress Note ---
Assessment and Plan Assessment and plan: -- Hepatic encephalopathy due to hepatic cirrhosis cont lactulose, Neuro check, seizure precaution, aspiration precaution, fall precautions, continue to monitor. -- End stage renal disease Nephrology team consulted, strict I's/O, monitor urine output every shift, dialysis as per renal team, avoid nephrotoxic agents. --Metabolic Acidosis Nephrology team consulted, dialysis as per renal team. --Hyponatremia Monitor BMP, monitor fluid balance. -- Hyperammonemia Continue lactulose --Diabetes mellitus with hyperglycemia Consistent carb diet, SSI -- hyperkalemia, Improvement with dialysis --Ascitis, s/p paracentesis drained 6.2l of ascitic fluid --Sacral wound, cont wound care -- Moderate Protein Calorie Malnutrition, nutrition consulted --Noncompliance, counseled for medication compliance -- Thrombocytopenia --DVT Px, SCD --DNR code status --Disposition: needs placement, CM waiting for placement -- Hepatic encephalopathy -Patient alert and oriented x3. due to hepatic cirrhosis has resolved cont lactulose, Neuro check, seizure precaution, aspiration precaution, fall precautions, continue to monitor. -Diarrhea resolved was secondary to lactulose. Patient is alert no enceph alopathy. -- End stage renal disease Nephrology team consulted, strict I's/O, monitor urine output every shift, dialysis as per renal team, avoid nephrotoxic agents. Await dialysis center. Still no dialysis center. We will dialyze as indicated. --Metabolic Acidosis Nephrology team consulted, dialysis as per renal team. --Hyponatremia Monitor BMP, monitor fluid balance.-Does not require to be checked today we will check every other day now. -- Hyperammonemia Continue lactulose --Pruritus Add Atarax most likely secondary to liver failure --Diabetes mellitus with hyperglycemia Consistent carb diet, SSI -- hyperkalemia, Improvement with dialysis --Ascites, s/p paracentesis drained 6.2l of ascitic fluid -no further ascites at this time. --Sacral wound, pain control continue local wound care. -- Moderate Protein Calorie Malnutrition, nutrition consulted --Noncompliance, counseled for medication compliance --Depression discussed about depression and initiation of Zoloft [facility]19: Resume dialysis will adjust insulin for better coverage. Very poor prognosis considering poor medical compliance. Agree with hospice recommendation. Will obtain wound care to continue to manage. Monitor anemia as patient was pretty anemic during the last hospitalization. Required transfusion. 02/20: Continues to undergo dialysis no change in mental status noted. Tolerating medications. Blood sugar mildly elevated adjusted insulin yesterday when awake for the patient received a dose today and if still elevated will adjust. Again case management is working on discharge plan for this patient as he is pending placement 02/21 patient complains of right hip pain. He said he fell few weeks ago and is concerned about another fracture. He had a fracture about 8 weeks ago and had surgery. Will obtain X ray right hip. Patient pending placement. 02/22 Patient seen in Dialysis Unit. He states hip pain improved. No other complaints. Right hip X ray done yesterday report read may be healing fracture or acute fracture. Will discuss with Orthopedic Surgeon Patient pending placement 02/23 Less hip pain. Today complains of generalized itching. Will start Benadryl po prn. Orthopedic consulted to evaluate right hip. Patient pending placement 02/24 Less hip pain. Generalized itching now resolved. Orthopedic consulted to evaluate right hip. He complains of sleeplessness. Will give Ambien prn Patient pending placement 02/25 Patient requested DNR status yesterday. I discussed with him and he signed forms. He also complains of worsening abdominal distension and requested tapping, Will order paracentesis. Right hip evaluated by Dr. Trivedi and conservative management recommended. 02/26: Plan for paracentesis today. Need to set up dialysis as outpatient. night shift manager working on discharge planning. 02/27: Patient did not sign the consent for paracentesis yesterday so paracentesis was done today and aspirated 6.2L ascitic fluid. Patient refusing medication per RN. Getting dialysis. Patient noted slightly altered today, will place NG tube remains altered and keep refusing oral meds, order for ammonia level and will cont lactulose. 02/28: Patient appears much more calm and cooperative today. He stated that he has been refusing procedure and medication as he believes he was not in the right state of his mind. Patient acknowledges the importance of being compliant and he promises that he will take the medications as he will be given. Discharge planning per case management as patient would need outpatient dialysis center set up and [facility] set up. 03/01/21: Patient has intermediate setting but according to special education case manager no available RN to accept the patient till Thursday. Continue supportive care. Discharge pending on placement. 03/02/21 -03/04/21: Discharge pending on placement, continue to monitor clinically. Continue current management and plan and supportive care. Patient need SNF placement. 03/05/2021; Awaiting SNF placement for discharge. Prognosis is very poor. Patient is nonresponsive. I try to reach to his son over the phone but could not get in touch. Patient is appropriate for hospice care. 03/06/2021; patient is awaiting SNF placement. Patient was alert and oriented. No confusion. Patient is stable to be discharged back to SNF. 03/07/2021; patient has hemoglobin of 6.8 this morning. A unit of blood ordered. Will monitor H&H. Nephrology is following for dialysis. 03/08/2021; patient's hemoglobin was 6.8 yesterday and transfused a unit of blood. I ordered yesterday to do posttransfusion H&H and was not done. CBC was ordered to be done this morning but was not done. COVID-19 test was done on 03/06 and positive. Nephrology is following the patient for his dialysis. Plan is to discharge him to SNF. Will follow with case management because patient is Covid positive. 03/09/2021; patient's repeat Covid test on 03/08/2021 was positive. Patient is pending for SNF Placement. Patient had hypoglycemia yesterday and patient was placed on Lantus and his sliding scale adjusted to high dose. Will monitor and adjust as needed. 03/10/2021; pending SNF placement. Covid test was positive on and . 03/11/2021; patient has hepatic encephalopathy and his ammonia level is very high , patient is currently on lactulose and rifaximin. Ammonia level is trending down. Nephrology is following for dialysis. Patient has positive Covid test last one was on 03/08, that makes placement difficult. Continue with case management. 03/12: Still awaiting placement, discussed with nursing staff to monitor mental status changes. Will check ammonia level. Continue to adjust blood sugar. C omplicated by COVID POSITIVELY. Awaiting placement for the patient. Also dialysis chair time. I have discussed with case management as my understanding was that patient was to go for hospice but this plan appears to have changed possibly not clear to me at this time 03/13: Continue supportive care crush medications that can be crushed. Ammonia level is elevated but not as elevated as previously. Continue lactulose advised nursing staff that this should be given as ordered to communicate with the night team also. Unfortunately when the patient gets better he refuses his lactulose. I truly believe that we should strongly consider palliative care for this patient but nevertheless if he wants to continue dialysis and will be compliant with his medications this is definitely an option can be pursued. Aspiration precautions monitor hemoglobin and platelets. 03/14: Patient seen and examined, more awake today. Continue supportive care, patient was made DNR wade, signed the form today after confirming the patient and also the physician. Monitor for fever. AWAITING PLACEMENT. poor prognosis 03/15/21 Patient is seen and examined. Lab and medication reviewed. Patient denied any chest pain or shortness of breath. Patient is more awake alert today. Patient is getting them hemodialysis today. Continue current management. Awaiting placement. 03/16/21 patient seen and examined. Lab and medication reviewed. Patient feels better. Hemoglobin 8.2 and hematocrit 23.9. Complained of pain in the butt. No other complain. Continue current management and supportive care. Patient is waiting for placement. 03/17: Patient remains with poor prognosis refusing dietary intake. Again discussed hospice and palliative care management considering his current medical condition and declining poor prognostic factors. Discussed with nursing staff patient will continue with lactulose had refused this morning but did take it yesterday. Continue aspiration precautions. Discussed the importance of taking the medication the patient verbalized understanding 03/18: Patient undergoing HD discharge planning ongoing discussed with case management team. Covid test ordered today for placement purposes. 03/19/2021; Covid test was ordered and result is pending. Pending placement. 03/20/2021; patient's Covid test was positive again on 03/20/2021. Pending placement. 03/21/2021. Patient cooperative no acute distress at this time. Complains of loose stool diarrhea. Still awaiting placement. Unable to find hemodialysis placement 03/22/2021. Patient last Covid test was positive however initial test was greater than 14 days ago. Patient is no longer infected. Unable to find hemodialysis line at present. Patient being evaluated for [facility]. 03/23/2021. Patient continues to state he feels good much better at this time. Resting comfortably. No distress noted. Still awaiting hemodialysis center. 03/24/2021 patient with flat mood discussed about depression. Resting comfortably watching TV. 03/25/2021. Patient denies depression at this time. Complains of itching all over. When am i getting out of here 03/26/2021. Case management reports patient is still awaiting hemodialysis placement 03/27/2021. Case management reports patient is still awaiting hemodialysis placement. Patient is on maintenance hemodialysis three times a week, MWF schedule. Cont. Lactulose and Rifaximin. Epogen with HD. 03/28/2021. Case management reports patient is still awaiting hemodialysis placement. 03/29/2021. Plan is for the patient to go to [facility] and awaiting on hemodialysis arrangements. [facility] and does not have a bed available. Covid test ordered. We will continue to follow up with case management on discharge planning. 03/30/2021. No new developments. Await hemodialysis placement and potential transfer to [facility]. 03/31/2021. No new developments. Await hemodialysis placement and potential transfer to [facility]. 04/03/2021 [facility] 04/04/[facility]21 Waiting for [facility] to [facility] 04/05/2021 Undergoing hemodialysis during making examination Waiting for placement 04/06/2021 Waiting for placement 04/07/2021 Waiting for placement 04/08/2021 Waiting for placement 04/09: Patient seen and examined a little bit lethargic otherwise no new changes. Awaiting placement noted thrombocytopenia continue to monitor. Discussed with case management and Nursing staff. 04/10: Thrombocytopenia persist, continue to monitor. Still with lethargy. Continue to monitor, Aspiration precautions. Continue with HD 04/11: Discussed with case management patient may possibly have a HD time today and will be able to be discharged unfortunately I think patient has a really poor prognosis considering his liver failure and my recommendation remains for hospice management to be considered outpatient. Patient however wants to continue dialysis. We will continue lactulose. 04/12: Today admitted with hyperkalemia expect correction with dialysis. We will recheck BMP in a.m.. Discussed with nursing staff will continue lactulose at this time. Awaiting placement. Poor prognosis 04/13: m continues with very poor prognosis considering overall clinical condition. Family will had a discussion with case management about hospice. Case management working on this while we will continue to work on other discharge plans. 04/14: Tolerating tube feeds awaiting placement and possible hospice placement. 04/15: Brief summary: 55 YO Male with ESRD on HD, Noncompliance with outpatient dialysis, Anemia, HBV, Chronic Liver Disease, Cirrhosis complicated by Esophageal Varices, HTN, Debility, DM presents to ED with confusion with diminished cognition. Patient family report the patient was "not acting like himself" and found to have worsening confusion over the past 2 days. In the ER the patient was found to have hepatic encephalopathy complicated by diminished cognition, end-stage renal disease in need of urgent dialysis, as well as uncontrolled diabetes, and acidosis. Nephrology team consulted in ED and patient was then admitted for further evaluation and Mx. He has been in the hospital for about 55 days continues to go on dialysis. Repeat Covid test has always come back positive although he is not requiring oxygen. He does have intermittent confusion and does not seem to have any good prognosis considering his alcoholic hepatitis. Continue to encourage nurses to give him his lactulose. He is awaiting hospice decision. 04/16; Awaiting hospice decision. Discussed with case management and she told me to send referral to different hospice facilities. History Interval history: Patient was seen and evaluated this morning Patient doesn't have new complaints Hospitalist Physical - Physical exam Narrative exam: Not in cardiopulmonary distress. The patient appeared well nourished and normally developed. Vital signs as documented. Head exam is unremarkable. No scleral icterus . Neck is without jugular venous distension, thyromegaly, or carotid bruits. Lungs are clear to auscultation. Cardiac exam reveals regular rate and Rhythm. Abdominal exam reveals normal bowel sounds, nontender, no organomegaly. Extremities right BKA. 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 Sacral decubitus ulcer. - Constitutional Vitals: Temp Pulse Resp BP Pulse Ox 97.8 F 73 18 170/83 90 04/16/21 04:51 04/16/21 04:51 04/16/21 04:51 04/16/21 04:51 04/16/21 04:51 General appearance: Present: no acute distress, well-nourished Results - Labs CBC & Chem 7: 04/12/21 06:54 04/12/21 06:54 Labs: Laboratory Last Values WBC 3.5 K/mm3 (4.5-11.0) L 04/12/21 06:54 RBC 2.71 M/mm3 (3.65-5.03) L 04/12/21 06:54 Hgb 8.3 gm/dl (11.8-15.2) L 04/12/21 06:54 Hct 25.1 % (35.5-45.6) L 04/12/21 06:54 MCV 93 fl (84-94) 04/12/21 06:54 MCH 31 pg (28-32) 04/12/21 06:54 MCHC 33 % (32-34) 04/12/21 06:54 RDW 20.1 % (13.2-15.2) H 04/12/21 06:54 Plt Count 105 K/mm3 (140-440) L 04/12/21 06:54 Lymph % (Auto) 18.6 % (13.4-35.0) 04/05/21 07:46 Dale % (Auto) 12.6 % (0.0-7.3) H 04/05/21 07:46 Eos % (Auto) 3.4 % (0.0-4.3) 04/05/21 07:46 Baso % (Auto) 1.0 % (0.0-1.8) 04/05/21 07:46 Lymph # (Auto) 0.7 K/mm3 (1.2-5.4) L 04/05/21 07:46 Dale # (Auto) 0.5 K/mm3 (0.0-0.8) 04/05/21 07:46 Eos # (Auto) 0.1 K/mm3 (0.0-0.4) 04/05/21 07:46 Baso # (Auto) 0.0 K/mm3 (0.0-0.1) 04/05/21 07:46 Add Manual Diff Complete 03/07/21 05:23 Total Counted 100 03/07/21 05:23 Seg Neutrophils % 64.4 % (40.0-70.0) 04/05/21 07:46 Seg Neuts % (Manual) 78.0 % (40.0-70.0) H 03/07/21 05:23 Lymphocytes % (Manual) 13.0 % (13.4-35.0) L 03/07/21 05:23 Monocytes % (Manual) 9.0 % (0.0-7.3) H 03/07/21 05:23 Nucleated RBC % Not Reportable 03/07/21 05:23 Seg Neutrophils # 2.3 K/mm3 (1.8-7.7) 04/05/21 07:46 Seg Neutrophils # Man 2.0 K/mm3 (1.8-7.7) 03/07/21 05:23 Band Neutrophils # 0.0 K/mm3 03/07/21 05:23 Lymphocytes # (Manual) 0.3 K/mm3 (1.2-5.4) L 03/07/21 05:23 Abs React Lymphs (Man) 0.0 K/mm3 03/07/21 05:23 Monocytes # (Manual) 0.2 K/mm3 (0.0-0.8) 03/07/21 05:23 Eosinophils # (Manual) 0.0 K/mm3 (0.0-0.4) 03/07/21 05:23 Basophils # (Manual) 0.0 K/mm3 (0.0-0.1) 03/07/21 05:23 Metamyelocytes # 0.0 K/mm3 03/07/21 05:23 Myelocytes # 0.0 K/mm3 03/07/21 05:23 Promyelocytes # 0.0 K/mm3 03/07/21 05:23 Blast Cells # 0.0 K/mm3 03/07/21 05:23 WBC Morphology Not Reportable 03/07/21 05:23 Hypersegmented Neuts Not Reportable 03/07/21 05:23 Hyposegmented Neuts Not Reportable 03/07/21 05:23 Hypogranular Neuts Not Reportable 03/07/21 05:23 Smudge Cells Not Reportable 03/07/21 05:23 Toxic Granulation Not Reportable 03/07/21 05:23 Toxic Vacuolation Not Reportable 03/07/21 05:23 Dohle Bodies Not Reportable 03/07/21 05:23 Pelger-Huet Anomaly Not Reportable 03/07/21 05:23 Cosme Rods Not Reportable 03/07/21 05:23 Platelet Estimate Consistent w auto 03/07/21 05:23 Clumped Platelets Not Reportable 03/07/21 05:23 Plt Clumps, EDTA Not Reportable 03/07/21 05:23 Large Platelets Not Reportable 03/07/21 05:23 Giant Platelets Not Reportable 03/07/21 05:23 Platelet Satelliting Not Reportable 03/07/21 05:23 Plt Morphology Comment Not Reportable 03/07/21 05:23 RBC Morphology Not Reportable 03/07/21 05:23 Dimorphic RBCs Not Reportable 03/07/21 05:23 Polychromasia Not Reportable 03/07/21 05:23 Hypochromasia Not Reportable 03/07/21 05:23 Poikilocytosis Not Reportable 03/07/21 05:23 Anisocytosis Few 03/07/21 05:23 Microcytosis Not Reportable 03/07/21 05:23 Macrocytosis Not Reportable 03/07/21 05:23 Spherocytes Not Reportable 03/07/21 05:23 Pappenheimer Bodies Not Reportable 03/07/21 05:23 Sickle Cells Not Reportable 03/07/21 05:23 Target Cells Not Reportable 03/07/21 05:23 Tear Drop Cells Not Reportable 03/07/21 05:23 Ovalocytes Not Reportable 03/07/21 05:23 Helmet Cells Not Reportable 03/07/21 05:23 [place] Bodies Not Reportable 03/07/21 05:23 [place] Rings Not Reportable 03/07/21 05:23 Kathy Cells Not Reportable 03/07/21 05:23 Bite Cells Not Reportable 03/07/21 05:23 Crenated Cell Not Reportable 03/07/21 05:23 Elliptocytes Not Reportable 03/07/21 05:23 Acanthocytes (Spur) Not Reportable 03/07/21 05:23 Rouleaux Not Reportable 03/07/21 05:23 Hemoglobin C Crystals Not Reportable 03/07/21 05:23 Schistocytes Not Reportable 03/07/21 05:23 Malaria parasites Not Reportable 03/07/21 05:23 Samir Bodies Not Reportable 03/07/21 05:23 Hem Pathologist Commnt No 03/07/21 05:23 PT 13.7 Sec. (12.2-14.9) 02/26/21 04:33 INR 1.00 (0.87-1.13) 02/26/21 04:33 Sodium 138 mmol/L (137-145) 04/12/21 06:54 Potassium 5.2 mmol/L (3.6-5.0) H D 04/12/21 06:54 Chloride 98.6 mmol/L (98-107) 04/12/21 06:54 Carbon Dioxide 30 mmol/L (22-30) 04/12/21 06:54 Anion Gap 15 mmol/L 04/12/21 06:54 BUN 62 mg/dL (9-20) H 04/12/21 06:54 Creatinine 7.0 mg/dL (0.8-1.3) H 04/12/21 06:54 Estimated GFR 8 ml/min 04/12/21 06:54 BUN/Creatinine Ratio 9 % 04/12/21 06:54 Glucose 107 mg/dL (75-100) H 04/12/21 06:54 POC Glucose 105 mg/dL (70-105) 04/16/21 07:32 Hemoglobin A1c 7.4 % (4-6) H 02/26/21 04:33 Calcium 9.4 mg/dL (8.4-10.2) 04/12/21 06:54 Phosphorus 3.40 mg/dL (2.5-4.5) 04/03/21 07:30 Magnesium 2.10 mg/dL (1.7-2.3) 02/17/21 02:24 Iron 52 ug/dL (49-181) 03/30/21 05:11 TIBC 203 mcg/dL (250-450) L 03/30/21 05:11 Ferritin 70.9 ng/mL (30.0-300.0) 03/30/21 05:11 Total Bilirubin 0.60 mg/dL (0.1-1.2) 04/05/21 07:46 Direct Bilirubin 0.3 mg/dL (0-0.2) H 03/14/21 07:24 Indirect Bilirubin 0.3 mg/dL 03/14/21 07:24 AST 34 units/L (5-40) 04/05/21 07:46 ALT 23 units/L (7-56) 04/05/21 07:46 Alkaline Phosphatase 183 units/L (35-129) H 04/05/21 07:46 Ammonia 68.0 umol/L (25-60) H 04/05/21 07:46 Total Creatine Kinase 86 units/L (55-170) 02/17/21 02:24 Total Protein 5.8 g/dL (6.3-8.2) L 04/05/21 07:46 Albumin 2.5 g/dL (3.9-5) L 04/05/21 07:46 Albumin/Globulin Ratio 0.8 % 04/05/21 07:46 Vitamin B12 1583 pg/mL (211-911) H 03/30/21 05:11 Folate 10.11 ng/mL (7.3-26.0) 03/30/21 05:11 TSH 0.986 mlU/mL (0.270-4.200) 02/17/21 02:24 Urine Color Yellow (Yellow) 02/17/21 Unknown Urine Turbidity Clear (Clear) 02/17/21 Unknown Urine pH 6.0 (5.0-7.0) 02/17/21 Unknown Ur Specific [place] 1.012 (1.003-1.030) 02/17/21 Unknown Urine Protein 100 mg/dl mg/dL (Negative) 02/17/21 Unknown Urine Glucose (UA) >=500 mg/dL (Negative) 02/17/21 Unknown Urine Ketones Neg mg/dL (Negative) 02/17/21 Unknown Urine Blood Neg (Negative) 02/17/21 Unknown Urine Nitrite Neg (Negative) 02/17/21 Unknown Urine Bilirubin Neg (Negative) 02/17/21 Unknown Urine Urobilinogen < 2.0 mg/dL (<2.0) 02/17/21 Unknown Ur Leukocyte Esterase Neg (Negative) 02/17/21 Unknown Urine WBC (Auto) 2.0 /HPF (0.0-6.0) 02/17/21 Unknown Urine RBC (Auto) 2.0 /HPF (0.0-6.0) 02/17/21 Unknown U Epithel Cells (Auto) < 1.0 /HPF (0-13.0) 02/17/21 Unknown Urine Bacteria (Auto) 1+ /HPF (Negative) 02/17/21 Unknown Salicylates < 0.3 mg/dL (2.8-20.0) L 02/17/21 02:24 Acetaminophen 5.0 ug/mL (10.0-30.0) L 02/17/21 02:24 Coronavirus (PCR) Positive (Negative) A 04/10/21 Unknown Hepatitis A IgM Ab Non-reactive (NonReactive) 02/28/21 12:37 Hep Bs Antigen Non-reactive (Negative) 03/28/21 18:57 Hep B Core IgM Ab Non-reactive (NonReactive) 02/28/21 12:37 Hepatitis C Antibody Non-reactive (NonReactive) 02/28/21 12:37 Blood Type A POSITIVE 03/07/21 06:31 Antibody Screen Negative 03/07/21 06:31 Crossmatch See Detail 03/07/21 06:31 Sr/IV: Voiding Method Incontinent Active Medications - Current Medications Current Medications: Generic Name Dose Route Start Last Admin Trade Name Freq PRN Reason Stop Dose Admin Acetaminophen 650 mg 02/18/21 22:38 03/09/21 13:15 Acetaminophen 325 Mg Tab PO 650 mg Q4H PRN Administration Pain MILD(1-3)/Fever >100.5/MOLINA Albuterol 2.5 mg 02/18/21 22:38 Albuterol 2.5 Mg/3 Ml Nebu IH Q3HRT PRN Shortness Of Breath Allopurinol 100 mg 02/20/21 10:00 04/15/21 09:44 Allopurinol 100 Mg Tab PO 100 mg QDAY LEYLA Administration Calcium Acetate 1,334 mg 02/20/21 08:30 04/15/21 20:01 Calcium Acetate 667 Mg Cap PO Not Given TIDWM LEYLA Dextrose 50 ml 03/29/21 12:00 Dextrose 50% In Water (25gm) 50 Ml Syringe IV Q30MIN PRN HYPOGLYCEMIA Protocol Diphenhydramine HCl 25 mg 02/23/21 09:10 03/24/21 09:01 Diphenhydramine 25 Mg Cap PO 25 mg BID PRN Administration Itching Famotidine 20 mg 02/19/21 10:00 04/15/21 09:35 Famotidine 20 Mg Tab PO 20 mg QAM LEYLA Administration Hydralazine HCl 10 mg 02/18/21 22:56 Hydralazine 20 Mg/1 Ml Inj IV Q6H PRN htn Hydroxyzine HCl 25 mg 03/24/21 10:38 Hydroxyzine Hcl 25 Mg Tab PO Q6H PRN Itching Sodium Chloride 100 mls @ 999 mls/hr 02/19/21 09:06 Nacl 0.9% IV OLIVIA PRN Hypotension Insulin Glargine 16 units 03/23/21 09:00 04/15/21 22:24 Insulin Glargine 100 Units/Ml SUB-Q 16 units QHS LEYLA Administration Insulin Human Lispro 0 unit 03/09/21 22:00 04/15/21 22:26 Insulin Lispro 100 Unit/Ml SUB-Q 4 unit ACHS LEYLA Administration Protocol Lactulose 20 gm 03/09/21 18:00 04/16/21 06:58 Lactulose 20 Gm/30 Ml Oral Liqd PO 20 gm Q6HR LEYLA Administration Ondansetron HCl 4 mg 02/18/21 22:38 02/28/21 12:32 Ondansetron 4 Mg/2 Ml Inj IV 4 mg Q8H PRN Administration Nausea And Vomiting Polyethylene Glycol 17 gm 02/24/21 12:08 02/24/21 12:47 Polyethylene Glycol 3350 17 Gm Powder PO 17 gm QDAY PRN Administration Constipation Propranolol HCl 20 mg 02/20/21 10:00 04/15/21 22:25 Propranolol 10 Mg Tab PO 20 mg BID LEYLA Administration Rifaximin 550 mg 03/10/21 12:00 04/15/21 22:25 Rifaximin 550 Mg Tab PO 550 mg BID LEYLA Administration Sodium Chloride 10 ml 02/19/21 10:00 04/15/21 22:26 Sodium Chloride 0.9% 10 Ml Flush Syringe IV Not Given BID LEYLA Sodium Chloride 10 ml 02/18/21 22:38 Sodium Chloride 0.9% 10 Ml Flush Syringe IV PRN PRN LINE FLUSH Zolpidem Tartrate 5 mg 02/24/21 09:54 04/14/21 21:27 Zolpidem 5 Mg Tab PO 5 mg QHS PRN Administration Sleep Nutrition/Malnutrition Assess - Dietary Evaluation Nutrition/Malnutrition Findings: Nutrition Notes Start: 02/19/21 10:48 Freq: Status: Active Protocol: Document 04/12/21 11:23 (Rec: 04/12/21 11:25 [email or web address]) Nutrition Notes Initial or Follow up Reassessment Current Diagnosis CKD (stage V CKD),Diabetes Other Pertinent Diagnosis COVID-19 (+), hepatic encephalopathy, ascites Current Diet Renal/Consistent CHO + Nepro once daily Labs/Tests K 2.6 BUN 62 Cr 7 Pertinent Medications [place] Height 5 ft 11 in Weight 71.3 kg [place] Body Weight (kg) 78.18 BMI 21.9 Weight Status Appropriate Subjective/Other Information FU for intakes. Pt did not answer phone x2. Pt eating 100 % of meals, per chart. Percent of energy/protein needs met: 100%/100% Burn Absent Trauma Absent Current % PO Good (75-100%) Minimum of two criteria Yes Body Fat Depletion Mild depletion (non-severe) Fluid Accumulation Mild (non-severe) #2 Nutrition Diagnosis Increased nutrient needs ( specify in comment below) Diagnosis Progress(for reassessment Continues documentation) #1 Nutrition Diagnosis Malnutrition Diagnosis Progress(for reassessment Continues documentation) Is patient on ventilator? No Is Patient Ambulatory and/or Out of Bed No REE-([facility]-confined to bed) 0326.066 Calculation Used for Recommendations [facility] Additional Notes Pro needs >1.2g/kg/day Fluid needs 1-1.5L/day Nutrition Intervention Change Diet Order: Continue current Add Supplement/Snack (indicate name/kcal Nepro daily /protein ) Provides kCal: 425 Provides Protein (gm) 19 Goal #1 PO intake of meals plus ONS to meet at least 75% energy and pro needs Goal #2 Wound healing Follow-Up By: 04/19/21 Additional Comments FU for stable intakes and ONS tolerance
[2021-04-16] MEDS: INSULIN LISPRO 100 UNIT/ML SUB-Q SCH ×4 (08:38→22:57)
[2021-04-16] MEDS: RIFAXIMIN 550 MG TAB PO SCH ×2 (10:40→22:55)
[2021-04-16] MEDS: FAMOTIDINE 20 MG TAB PO SCH (10:41)
[2021-04-16] MEDS: allopurinoL 100 MG TAB PO SCH (10:41)
[2021-04-16] MEDS: CALCIUM ACETATE 667 MG CAP PO SCH ×3 (10:48→17:45)
[2021-04-16] MEDS: PROPRANOLOL 10 MG TAB PO SCH ×2 (10:49→22:55)
--- NOTE | 2021-04-16 14:09 | Progress Note ---
Assessment and Plan 1. ESRD: Patient is on maintenance hemodialysis three times a week, MWF schedule. Meds dosage based on GFR. Hemodialysis: 02/19, 02/20, 02/22, 02/25, 02/27, 03/01, 03/04, 03/06, 03/08, 03/11, 03/13, 03/15, 03/18, 03/20, 03/22, 03/25, 03/27, 03/29, 04/01, 04/03, 04/05, 04/08, 04/10, 04/12, 04/15. 2. FEN: Monitor lytes and volume status. 3. Anemia, POA: 2/2 ESRD and Liver disease. Epogen with HD. IV Iron 125 mg 04/05. PRBC as needed. 4. Cirrhosis with h/o hepatic encephalopathy: Lactulose and Rifaximin. Monitor. 5. DM type 2: SSI. Monitor. 6. Thrombocytopenia, POA. 7. COVID infection: Isolation precautions. Await placement. Subjective: Patient was seen and examined at the bedside. General Appearance: General appearance: well-developed, appears stated age, not in distress HEENT: ATNC, pupils equal Neck: trachea midline Respiratory: ctab Heart: regular, S1S2, no murmur Abdomen: soft, bowel sounds heard, distended, not tender Integumentary: no rash, warm and dry Neurologic: lethargic, not following any command Ext: no edema, R BKA Hemodialysis access: R arm AVF Subjective Date of service: 04/16/21 Principal diagnosis: Acute encephalopathy Objective - Vital Signs Vital signs: Vital Signs - 12hr 04/16/21 04/16/21 04/16/21 04:51 10:00 10:49 Temperature 97.8 F Pulse Rate 73 73 Respiratory 18 Rate Blood Pressure 170/83 170/83 O2 Sat by Pulse 90 99 Oximetry - Lab 04/12/21 06:54 04/12/21 06:54 Most recent lab results Calcium 9.4 mg/dL (8.4-10.2) 04/12/21 06:54 Phosphorus 3.40 mg/dL (2.5-4.5) 04/03/21 07:30 Magnesium 2.10 mg/dL (1.7-2.3) 02/17/21 02:24 Medications & Allergies - Medications Allergies/Adverse Reactions: Allergies No Known Allergies Allergy (Verified 02/16/21 18:26) Home Medications: Home Medications Medication Instructions Recorded Confirmed Last Taken Type Calcium Acetate [Phoslo] 1,334 mg PO TIDWM #90 capsule 03/01/21 Unknown Rx Famotidine [Pepcid] 20 mg PO QAM #30 tablet 03/01/21 Unknown Rx Lactulose [Cephulac] 20 gm PO Q8HR 30 Days 03/01/21 Unknown Rx Lispro Insulin [HumaLOG] See Protocol SQ ACHS 30 Days 03/01/21 Unknown Rx allopurinoL [Zyloprim] 100 mg PO QDAY #30 tablet 03/01/21 Unknown Rx propranoloL [Inderal] 20 mg PO BID #60 tablet 03/01/21 Unknown Rx Active Medications: Generic Name Dose Route Start Last Admin Trade Name Freq PRN Reason Stop Dose Admin Acetaminophen 650 mg 02/18/21 22:38 03/09/21 13:15 Acetaminophen 325 Mg Tab PO 650 mg Q4H PRN Administration Pain MILD(1-3)/Fever >100.5/MOLINA Albuterol 2.5 mg 02/18/21 22:38 Albuterol 2.5 Mg/3 Ml Nebu IH Q3HRT PRN Shortness Of Breath Allopurinol 100 mg 02/20/21 10:00 04/16/21 10:41 Allopurinol 100 Mg Tab PO 100 mg QDAY LEYLA Administration Calcium Acetate 1,334 mg 02/20/21 08:30 04/16/21 13:32 Calcium Acetate 667 Mg Cap PO Not Given TIDWM LEYLA Dextrose 50 ml 03/29/21 12:00 Dextrose 50% In Water (25gm) 50 Ml Syringe IV Q30MIN PRN HYPOGLYCEMIA Protocol Diphenhydramine HCl 25 mg 02/23/21 09:10 03/24/21 09:01 Diphenhydramine 25 Mg Cap PO 25 mg BID PRN Administration Itching Famotidine 20 mg 02/19/21 10:00 04/16/21 10:41 Famotidine 20 Mg Tab PO 20 mg QAM LEYLA Administration Hydralazine HCl 10 mg 02/18/21 22:56 Hydralazine 20 Mg/1 Ml Inj IV Q6H PRN htn Hydroxyzine HCl 25 mg 03/24/21 10:38 Hydroxyzine Hcl 25 Mg Tab PO Q6H PRN Itching Sodium Chloride 100 mls @ 999 mls/hr 02/19/21 09:06 Nacl 0.9% IV OLIVIA PRN Hypotension Insulin Glargine 16 units 03/23/21 09:00 04/15/21 22:24 Insulin Glargine 100 Units/Ml SUB-Q 16 units QHS LEYLA Administration Insulin Human Lispro 0 unit 03/09/21 22:00 04/16/21 13:04 Insulin Lispro 100 Unit/Ml SUB-Q Not Given ACHS [facility] Protocol Lactulose 20 gm 03/09/21 18:00 04/16/21 13:05 Lactulose 20 Gm/30 Ml Oral Liqd PO Not Given Q6HR [facility] Ondansetron HCl 4 mg 02/18/21 22:38 02/28/21 12:32 Ondansetron 4 Mg/2 Ml Inj IV 4 mg Q8H PRN Administration Nausea And Vomiting Polyethylene Glycol 17 gm 02/24/21 12:08 02/24/21 12:47 Polyethylene Glycol 3350 17 Gm Powder PO 17 gm QDAY PRN Administration Constipation Propranolol HCl 20 mg 02/20/21 10:00 04/16/21 10:49 Propranolol 10 Mg Tab PO 20 mg BID LEYLA Administration Rifaximin 550 mg 03/10/21 12:00 04/16/21 10:40 Rifaximin 550 Mg Tab PO 550 mg BID LEYLA Administration Sodium Chloride 10 ml 02/19/21 10:00 04/16/21 10:41 Sodium Chloride 0.9% 10 Ml Flush Syringe IV 10 ml BID LEYLA Administration Sodium Chloride 10 ml 02/18/21 22:38 Sodium Chloride 0.9% 10 Ml Flush Syringe IV PRN PRN LINE FLUSH Zolpidem Tartrate 5 mg 02/24/21 09:54 04/14/21 21:27 Zolpidem 5 Mg Tab PO 5 mg QHS PRN Administration Sleep
[2021-04-16] MEDS: INSULIN GLARGINE 100 UNITS/ML SUB-Q SCH (22:55)
[2021-04-17] MEDS: LACTULOSE 20 GM/30 ML ORAL LIQD PO SCH ×3 (06:42→18:25)
--- NOTE | 2021-04-17 07:36 | Progress Note ---
Assessment and Plan Assessment and plan: -- Hepatic encephalopathy due to hepatic cirrhosis cont lactulose, Neuro check, seizure precaution, aspiration precaution, fall precautions, continue to monitor. -- End stage renal disease Nephrology team consulted, strict I's/O, monitor urine output every shift, dialysis as per renal team, avoid nephrotoxic agents. --Metabolic Acidosis Nephrology team consulted, dialysis as per renal team. --Hyponatremia Monitor BMP, monitor fluid balance. -- Hyperammonemia Continue lactulose --Diabetes mellitus with hyperglycemia Consistent carb diet, SSI -- hyperkalemia, Improvement with dialysis --Ascitis, s/p paracentesis drained 6.2l of ascitic fluid --Sacral wound, cont wound care -- Moderate Protein Calorie Malnutrition, nutrition consulted --Noncompliance, counseled for medication compliance -- Thrombocytopenia --DVT Px, SCD --DNR code status --Disposition: needs placement, CM waiting for placement -- Hepatic encephalopathy -Patient alert and oriented x3. due to hepatic cirrhosis has resolved cont lactulose, Neuro check, seizure precaution, aspiration precaution, fall precautions, continue to monitor. -Diarrhea resolved was secondary to lactulose. Patient is alert no enceph alopathy. -- End stage renal disease Nephrology team consulted, strict I's/O, monitor urine output every shift, dialysis as per renal team, avoid nephrotoxic agents. Await dialysis center. Still no dialysis center. We will dialyze as indicated. --Metabolic Acidosis Nephrology team consulted, dialysis as per renal team. --Hyponatremia Monitor BMP, monitor fluid balance.-Does not require to be checked today we will check every other day now. -- Hyperammonemia Continue lactulose --Pruritus Add Atarax most likely secondary to liver failure --Diabetes mellitus with hyperglycemia Consistent carb diet, SSI -- hyperkalemia, Improvement with dialysis --Ascites, s/p paracentesis drained 6.2l of ascitic fluid -no further ascites at this time. --Sacral wound, pain control continue local wound care. -- Moderate Protein Calorie Malnutrition, nutrition consulted --Noncompliance, counseled for medication compliance --Depression discussed about depression and initiation of Zoloft Waiting for transfer to alf facility 02/19: Resume dialysis will adjust insulin for better coverage. Very poor prognosis considering poor medical compliance. Agree with hospice recommendation. Will obtain wound care to continue to manage. Monitor anemia as patient was pretty anemic during the last hospitalization. Required transfusion. 02/20: Continues to undergo dialysis no change in mental status noted. Tolerating medications. Blood sugar mildly elevated adjusted insulin yesterday when awake for the patient received a dose today and if still elevated will adjust. Again case management is working on discharge plan for this patient as he is pending placement 02/21 patient complains of right hip pain. He said he fell few weeks ago and is concerned about another fracture. He had a fracture about 8 weeks ago and had surgery. Will obtain X ray right hip. Patient pending placement. 02/22 Patient seen in Dialysis Unit. He states hip pain improved. No other complaints. Right hip X ray done yesterday report read may be healing fracture or acute fracture. Will discuss with Orthopedic Surgeon Patient pending placement 02/23 Less hip pain. Today complains of generalized itching. Will start Benadryl po prn. Orthopedic consulted to evaluate right hip. Patient pending placement 02/24 Less hip pain. Generalized itching now resolved. Orthopedic consulted to evaluate right hip. He complains of sleeplessness. Will give Ambien prn Patient pending placement 02/25 Patient requested DNR status yesterday. I discussed with him and he signed forms. He also complains of worsening abdominal distension and requested tapping, Will order paracentesis. Right hip evaluated by Dr. Trivedi and conservative management recommended. 02/26: Plan for paracentesis today. Need to set up dialysis as outpatient. 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 02/27: Patient did not sign the consent for paracentesis yesterday so paracentesis was done today and aspirated 6.2L ascitic fluid. Patient refusing medication per RN. Getting dialysis. Patient noted slightly altered today, will place NG tube remains altered and keep refusing oral meds, order for ammonia level and will cont lactulose. 02/28: Patient appears much more calm and cooperative today. He stated that he has been refusing procedure and medication as he believes he was not in the right state of his mind. Patient acknowledges the importance of being compliant and he promises that he will take the medications as he will be given. Discharge planning per case management as patient would need outpatient dialysis center set up and personal residential set up. 03/01/21: Patient has [facility] setting but according to medical case manager no available RN to accept the patient till Thursday. Continue supportive care. Discharge pending on placement. 03/02/21 -03/04/21: Discharge pending on placement, continue to monitor clinically. Continue current management and plan and supportive care. Patient need SNF placement. 03/05/2021; Awaiting SNF placement for discharge. Prognosis is very poor. Patient is nonresponsive. I try to reach to his son over the phone but could not get in touch. Patient is appropriate for hospice care. 03/06/2021; patient is awaiting SNF placement. Patient was alert and oriented. No confusion. Patient is stable to be discharged back to SNF. 03/07/2021; patient has hemoglobin of 6.8 this morning. A unit of blood ordered. Will monitor H&H. Nephrology is following for dialysis. 03/08/2021; patient's hemoglobin was 6.8 yesterday and transfused a unit of blood. I ordered yesterday to do posttransfusion H&H and was not done. CBC was ordered to be done this morning but was not done. COVID-19 test was done on 03/06 and positive. Nephrology is following the patient for his dialysis. Plan is to discharge him to SNF. Will follow with case management because patient is Covid positive. 03/09/2021; patient's repeat Covid test on 03/08/2021 was positive. Patient is pending for SNF Placement. Patient had hypoglycemia yesterday and patient was placed on Lantus and his sliding scale adjusted to high dose. Will monitor and adjust as needed. 03/10/2021; pending SNF placement. Covid test was positive on and . 03/11/2021; patient has hepatic encephalopathy and his ammonia level is very high , patient is currently on lactulose and rifaximin. Ammonia level is trending down. Nephrology is following for dialysis. Patient has positive Covid test last one was on 03/08, that makes placement difficult. Continue with case management. 03/12: Still awaiting placement, discussed with nursing staff to monitor mental status changes. Will check ammonia level. Continue to adjust blood sugar. C omplicated by COVID POSITIVELY. Awaiting placement for the patient. Also dialysis chair time. I have discussed with case management as my understanding was that patient was to go for hospice but this plan appears to have changed possibly not clear to me at this time 03/13: Continue supportive care crush medications that can be crushed. Ammonia level is elevated but not as elevated as previously. Continue lactulose advised nursing staff that this should be given as ordered to communicate with the night team also. Unfortunately when the patient gets better he refuses his lactulose. I truly believe that we should strongly consider palliative care for this patient but nevertheless if he wants to continue dialysis and will be compliant with his medications this is definitely an option can be pursued. Aspiration precautions monitor hemoglobin and platelets. 03/14: Patient seen and examined, more awake today. Continue supportive care, patient was made DNR wade, signed the form today after confirming the patient and also the physician. Monitor for fever. AWAITING PLACEMENT. poor prognosis 03/15/21 Patient is seen and examined. Lab and medication reviewed. Patient denied any chest pain or shortness of breath. Patient is more awake alert today. Patient is getting them hemodialysis today. Continue current management. Awaiting placement. 03/16/21 patient seen and examined. Lab and medication reviewed. Patient feels better. Hemoglobin 8.2 and hematocrit 23.9. Complained of pain in the butt. No other complain. Continue current management and supportive care. Patient is waiting for placement. 03/17: Patient remains with poor prognosis refusing dietary intake. Again discussed hospice and palliative care management considering his current medical condition and declining poor prognostic factors. Discussed with nursing staff patient will continue with lactulose had refused this morning but did take it yesterday. Continue aspiration precautions. Discussed the importance of taking the medication the patient verbalized understanding 03/18: Patient undergoing HD discharge planning ongoing discussed with case management team. Covid test ordered today for placement purposes. 03/19/2021; Covid test was ordered and result is pending. Pending placement. 03/20/2021; patient's Covid test was positive again on 03/20/2021. Pending placement. 03/21/2021. Patient cooperative no acute distress at this time. Complains of loose stool diarrhea. Still awaiting placement. Unable to find hemodialysis placement 03/22/2021. Patient last Covid test was positive however initial test was greater than 14 days ago. Patient is no longer infected. Unable to find hemodialysis line at present. Patient being evaluated for [facility]. 03/23/2021. Patient continues to state he feels good much better at this time. Resting comfortably. No distress noted. Still awaiting hemodialysis center. 03/24/2021 patient with flat mood discussed about depression. Resting comfortably watching TV. 03/25/2021. Patient denies depression at this time. Complains of itching all over. When am i getting out of here 03/26/2021. Case management reports patient is still awaiting hemodialysis placement 03/27/2021. Case management reports patient is still awaiting hemodialysis placement. Patient is on maintenance hemodialysis three times a week, MWF schedule. Cont. Lactulose and Rifaximin. Epogen with HD. 03/28/2021. Case management reports patient is still awaiting hemodialysis placement. 03/29/2021. Plan is for the patient to go to [facility] and awaiting on hemodialysis arrangements. [facility] and does not have a bed available. Covid test ordered. We will continue to follow up with case management on discharge planning. 03/30/2021. No new developments. Await hemodialysis placement and potential transfer to [facility]. 03/31/2021. No new developments. Await hemodialysis placement and potential transfer to [facility]. 04/03/2021 Waiting for transfer to alf facility 04/04/2021 Waiting for transfer to alf facility 04/05/2021 Undergoing hemodialysis during making examination Waiting for placement 04/06/2021 Waiting for placement 04/07/2021 Waiting for placement 04/08/2021 Waiting for placement 04/09: Patient seen and examined a little bit lethargic otherwise no new changes. Awaiting placement noted thrombocytopenia continue to monitor. Discussed with case management and Nursing staff. 04/10: Thrombocytopenia persist, continue to monitor. Still with lethargy. Continue to monitor, Aspiration precautions. Continue with HD 04/11: Discussed with case management patient may possibly have a HD time today and will be able to be discharged unfortunately I think patient has a really poor prognosis considering his liver failure and my recommendation remains for hospice management to be considered outpatient. Patient however wants to continue dialysis. We will continue lactulose. 04/12: Today admitted with hyperkalemia expect correction with dialysis. We will recheck BMP in a.m.. Discussed with nursing staff will continue lactulose at this time. Awaiting placement. Poor prognosis 04/13: m continues with very poor prognosis considering overall clinical condition. Family will had a discussion with case management about hospice. Case management working on this while we will continue to work on other discharge plans. 04/14: Tolerating tube feeds awaiting placement and possible hospice placement. 04/15: Brief summary: 55 YO Male with ESRD on HD, Noncompliance with outpatient dialysis, Anemia, HBV, Chronic Liver Disease, Cirrhosis complicated by Esophageal Varices, HTN, Debility, DM presents to ED with confusion with diminished cognition. Patient family report the patient was "not acting like himself" and found to have worsening confusion over the past 2 days. In the ER the patient was found to have hepatic encephalopathy complicated by diminished cognition, end-stage renal disease in need of urgent dialysis, as well as uncontrolled diabetes, and acidosis. Nephrology team consulted in ED and patient was then admitted for further evaluation and Mx. He has been in the hospital for about 55 days continues to go on dialysis. Repeat Covid test has always come back positive although he is not requiring oxygen. He does have intermittent confusion and does not seem to have any good prognosis considering his alcoholic hepatitis. Continue to encourage nurses to give him his lactulose. He is awaiting hospice decision. 04/16; Awaiting hospice decision. Discussed with case management and she told me to send referral to different hospice facilities. 04/17; awaiting acceptance by hospice facilities. Patient had positive Covid test multiple times. History Interval history: Patient was seen and evaluated this morning Patient doesn't have new complaints Hospitalist Physical - Physical exam Narrative exam: Not in cardiopulmonary distress. The patient appeared well nourished and normally developed. Vital signs as documented. Head exam is unremarkable. No scleral icterus . Neck is without jugular venous distension, thyromegaly, or carotid bruits. Lungs are clear to auscultation. Cardiac exam reveals regular rate and Rhythm. Abdominal exam reveals normal bowel sounds, nontender, no organomegaly. Extremities right BKA. 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 Sacral decubitus ulcer. - Constitutional Vitals: Temp Pulse Resp BP Pulse Ox 98.6 F 76 18 97/57 97 04/17/21 04:28 04/17/21 04:28 04/17/21 04:28 04/17/21 04:04/17/21 04:28 General appearance: Present: no acute distress, well-nourished Results - Labs CBC & Chem 7: 04/12/21 06:54 04/12/21 06:54 Labs: Laboratory Last Values WBC 3.5 K/mm3 (4.5-11.0) L 04/12/21 06:54 RBC 2.71 M/mm3 (3.65-5.03) L 04/12/21 06:54 Hgb 8.3 gm/dl (11.8-15.2) L 04/12/21 06:54 Hct 25.1 % (35.5-45.6) L 04/12/21 06:54 MCV 93 fl (84-94) 04/12/21 06:54 MCH 31 pg (28-32) 04/12/21 06:54 MCHC 33 % (32-34) 04/12/21 06:54 RDW 20.1 % (13.2-15.2) H 04/12/21 06:54 Plt Count 105 K/mm3 (140-440) L 04/12/21 06:54 Lymph % (Auto) 18.6 % (13.4-35.0) 04/05/21 07:46 [place] % (Auto) 12.6 % (0.0-7.3) H 04/05/21 07:46 Eos % (Auto) 3.4 % (0.0-4.3) 04/05/21 07:46 Baso % (Auto) 1.0 % (0.0-1.8) 04/05/21 07:46 Lymph # (Auto) 0.7 K/mm3 (1.2-5.4) L 04/05/21 07:46 [place] # (Auto) 0.5 K/mm3 (0.0-0.8) 04/05/21 07:46 Eos # (Auto) 0.1 K/mm3 (0.0-0.4) 04/05/21 07:46 Baso # (Auto) 0.0 K/mm3 (0.0-0.1) 04/05/21 07:46 Add Manual Diff Complete 03/07/21 05:23 Total Counted 100 03/07/21 05:23 Seg Neutrophils % 64.4 % (40.0-70.0) 04/05/21 07:46 Seg Neuts % (Manual) 78.0 % (40.0-70.0) H 03/07/21 05:23 Lymphocytes % (Manual) 13.0 % (13.4-35.0) L 03/07/21 05:23 Monocytes % (Manual) 9.0 % (0.0-7.3) H 03/07/21 05:23 Nucleated RBC % Not Reportable 03/07/21 05:23 Seg Neutrophils # 2.3 K/mm3 (1.8-7.7) 04/05/21 07:46 Seg Neutrophils # Man 2.0 K/mm3 (1.8-7.7) 03/07/21 05:23 Band Neutrophils # 0.0 K/mm3 03/07/21 05:23 Lymphocytes # (Manual) 0.3 K/mm3 (1.2-5.4) L 03/07/21 05:23 Abs React Lymphs (Man) 0.0 K/mm3 03/07/21 05:23 Monocytes # (Manual) 0.2 K/mm3 (0.0-0.8) 03/07/21 05:23 Eosinophils # (Manual) 0.0 K/mm3 (0.0-0.4) 03/07/21 05:23 Basophils # (Manual) 0.0 K/mm3 (0.0-0.1) 03/07/21 05:23 Metamyelocytes # 0.0 K/mm3 03/07/21 05:23 Myelocytes # 0.0 K/mm3 03/07/21 05:23 Promyelocytes # 0.0 K/mm3 03/07/21 05:23 Blast Cells # 0.0 K/mm3 03/07/21 05:23 WBC Morphology Not Reportable 03/07/21 05:23 Hypersegmented Neuts Not Reportable 03/07/21 05:23 Hyposegmented Neuts Not Reportable 03/07/21 05:23 Hypogranular Neuts Not Reportable 03/07/21 05:23 Smudge Cells Not Reportable 03/07/21 05:23 Toxic Granulation Not Reportable 03/07/21 05:23 Toxic Vacuolation Not Reportable 03/07/21 05:23 Dohle Bodies Not Reportable 03/07/21 05:23 Pelger-Huet Anomaly Not Reportable 03/07/21 05:23 Cosme Rods Not Reportable 03/07/21 05:23 Platelet Estimate Consistent w auto 03/07/21 05:23 Clumped Platelets Not Reportable 03/07/21 05:23 Plt Clumps, EDTA Not Reportable 03/07/21 05:23 Large Platelets Not Reportable 03/07/21 05:23 Giant Platelets Not Reportable 03/07/21 05:23 Platelet Satelliting Not Reportable 03/07/21 05:23 Plt Morphology Comment Not Reportable 03/07/21 05:23 RBC Morphology Not Reportable 03/07/21 05:23 Dimorphic RBCs Not Reportable 03/07/21 05:23 Polychromasia Not Reportable 03/07/21 05:23 Hypochromasia Not Reportable 03/07/21 05:23 Poikilocytosis Not Reportable 03/07/21 05:23 Anisocytosis Few 03/07/21 05:23 Microcytosis Not Reportable 03/07/21 05:23 Macrocytosis Not Reportable 03/07/21 05:23 Spherocytes Not Reportable 03/07/21 05:23 Pappenheimer Bodies Not Reportable 03/07/21 05:23 Sickle Cells Not Reportable 03/07/21 05:23 Target Cells Not Reportable 03/07/21 05:23 Tear Drop Cells Not Reportable 03/07/21 05:23 Ovalocytes Not Reportable 03/07/21 05:23 Helmet Cells Not Reportable 03/07/21 05:23 Merc[place] Bodies Not Reportable 03/07/21 05:23 [place] Rings Not Reportable 03/07/21 05:23 Kathy Cells Not Reportable 03/07/21 05:23 Bite Cells Not Reportable 03/07/21 05:23 Crenated Cell Not Reportable 03/07/21 05:23 Elliptocytes Not Reportable 03/07/21 05:23 Acanthocytes (Spur) Not Reportable 03/07/21 05:23 Rouleaux Not Reportable 03/07/21 05:23 Hemoglobin C Crystals Not Reportable 03/07/21 05:23 Schistocytes Not Reportable 03/07/21 05:23 Malaria parasites Not Reportable 03/07/21 05:23 Samir Bodies Not Reportable 03/07/21 05:23 Hem Pathologist Commnt No 03/07/21 05:23 PT 13.7 Sec. (12.2-14.9) 02/26/21 04:33 INR 1.00 (0.87-1.13) 02/26/21 04:33 Sodium 138 mmol/L (137-145) 04/12/21 06:54 Potassium 5.2 mmol/L (3.6-5.0) H D 04/12/21 06:54 Chloride 98.6 mmol/L (98-107) 04/12/21 06:54 Carbon Dioxide 30 mmol/L (22-30) 04/12/21 06:54 Anion Gap 15 mmol/L 04/12/21 06:54 BUN 62 mg/dL (9-20) H 04/12/21 06:54 Creatinine 7.0 mg/dL (0.8-1.3) H 04/12/21 06:54 Estimated GFR 8 ml/min 04/12/21 06:54 BUN/Creatinine Ratio 9 % 04/12/21 06:54 Glucose 107 mg/dL (75-100) H 04/12/21 06:54 POC Glucose 196 mg/dL (70-105) H 04/17/21 07:29 Hemoglobin A1c 7.4 % (4-6) H 02/26/21 04:33 Calcium 9.4 mg/dL (8.4-10.2) 04/12/21 06:54 Phosphorus 3.40 mg/dL (2.5-4.5) 04/03/21 07:30 Magnesium 2.10 mg/dL (1.7-2.3) 02/17/21 02:24 Iron 52 ug/dL (49-181) 03/30/21 05:11 TIBC 203 mcg/dL (250-450) L 03/30/21 05:11 Ferritin 70.9 ng/mL (30.0-300.0) 03/30/21 05:11 Total Bilirubin 0.60 mg/dL (0.1-1.2) 04/05/21 07:46 Direct Bilirubin 0.3 mg/dL (0-0.2) H 03/14/21 07:24 Indirect Bilirubin 0.3 mg/dL 03/14/21 07:24 AST 34 units/L (5-40) 04/05/21 07:46 ALT 23 units/L (7-56) 04/05/21 07:46 Alkaline Phosphatase 183 units/L (35-129) H 04/05/21 07:46 Ammonia 68.0 umol/L (25-60) H 04/05/21 07:46 Total Creatine Kinase 86 units/L (55-170) 02/17/21 02:24 Total Protein 5.8 g/dL (6.3-8.2) L 04/05/21 07:46 Albumin 2.5 g/dL (3.9-5) L 04/05/21 07:46 Albumin/Globulin Ratio 0.8 % 04/05/21 07:46 Vitamin B12 1583 pg/mL (211-911) H 03/30/21 05:11 Folate 10.11 ng/mL (7.3-26.0) 03/30/21 05:11 TSH 0.986 mlU/mL (0.270-4.200) 02/17/21 02:24 Urine Color Yellow (Yellow) 02/17/21 Unknown Urine Turbidity Clear (Clear) 02/17/21 Unknown Urine pH 6.0 (5.0-7.0) 02/17/21 Unknown Ur Specific [place] 1.012 (1.003-1.030) 02/17/21 Unknown Urine Protein 100 mg/dl mg/dL (Negative) 02/17/21 Unknown Urine Glucose (UA) >=500 mg/dL (Negative) 02/17/21 Unknown Urine Ketones Neg mg/dL (Negative) 02/17/21 Unknown Urine Blood Neg (Negative) 02/17/21 Unknown Urine Nitrite Neg (Negative) 02/17/21 Unknown Urine Bilirubin Neg (Negative) 02/17/21 Unknown Urine Urobilinogen < 2.0 mg/dL (<2.0) 02/17/21 Unknown Ur Leukocyte Esterase Neg (Negative) 02/17/21 Unknown Urine WBC (Auto) 2.0 /HPF (0.0-6.0) 02/17/21 Unknown Urine RBC (Auto) 2.0 /HPF (0.0-6.0) 02/17/21 Unknown U Epithel Cells (Auto) < 1.0 /HPF (0-13.0) 02/17/21 Unknown Urine Bacteria (Auto) 1+ /HPF (Negative) 02/17/21 Unknown Salicylates < 0.3 mg/dL (2.8-20.0) L 02/17/21 02:24 Acetaminophen 5.0 ug/mL (10.0-30.0) L 02/17/21 02:24 Coronavirus (PCR) Positive (Negative) A 04/10/21 Unknown Hepatitis A IgM Ab Non-reactive (NonReactive) 02/28/21 12:37 Hep Bs Antigen Non-reactive (Negative) 03/28/21 18:57 Hep B Core IgM Ab Non-reactive (NonReactive) 02/28/21 12:37 Hepatitis C Antibody Non-reactive (NonReactive) 02/28/21 12:37 Blood Type A POSITIVE 03/07/21 06:31 Antibody Screen Negative 03/07/21 06:31 Crossmatch See Detail 03/07/21 06:31 Sr/IV: Voiding Method Incontinent Active Medications - Current Medications Current Medications: Generic Name Dose Route Start Last Admin Trade Name Freq PRN Reason Stop Dose Admin Acetaminophen 650 mg 02/18/21 22:38 03/09/21 13:15 Acetaminophen 325 Mg Tab PO 650 mg Q4H PRN Administration Pain MILD(1-3)/Fever >100.5/MOLINA Albuterol 2.5 mg 02/18/21 22:38 Albuterol 2.5 Mg/3 Ml Nebu IH Q3HRT PRN Shortness Of Breath Allopurinol 100 mg 02/20/21 10:00 04/16/21 10:41 Allopurinol 100 Mg Tab PO 100 mg QDAY LEYLA Administration Calcium Acetate 1,334 mg 02/20/21 08:30 04/16/21 17:45 Calcium Acetate 667 Mg Cap PO Not Given TIDWM LEYLA Dextrose 50 ml 03/29/21 12:00 Dextrose 50% In Water (25gm) 50 Ml Syringe IV Q30MIN PRN HYPOGLYCEMIA Protocol Diphenhydramine HCl 25 mg 02/23/21 09:10 03/24/21 09:01 Diphenhydramine 25 Mg Cap PO 25 mg BID PRN Administration Itching Famotidine 20 mg 02/19/21 10:00 04/16/21 10:41 Famotidine 20 Mg Tab PO 20 mg QAM LEYLA Administration Hydralazine HCl 10 mg 02/18/21 22:56 Hydralazine 20 Mg/1 Ml Inj IV Q6H PRN htn Hydroxyzine HCl 25 mg 03/24/21 10:38 Hydroxyzine Hcl 25 Mg Tab PO Q6H PRN Itching Sodium Chloride 100 mls @ 999 mls/hr 02/19/21 09:06 Nacl 0.9% IV OLIVIA PRN Hypotension Insulin Glargine 16 units 03/23/21 09:00 04/16/21 22:55 Insulin Glargine 100 Units/Ml SUB-Q 16 units QHS LEYLA Administration Insulin Human Lispro 0 unit 03/09/21 22:00 04/16/21 22:57 Insulin Lispro 100 Unit/Ml SUB-Q 4 unit ACHS LEYLA Administration Protocol Lactulose 20 gm 03/09/21 18:00 04/17/21 06:42 Lactulose 20 Gm/30 Ml Oral Liqd PO 20 gm Q6HR LEYLA Administration Ondansetron HCl 4 mg 02/18/21 22:38 02/28/21 12:32 Ondansetron 4 Mg/2 Ml Inj IV 4 mg Q8H PRN Administration Nausea And Vomiting Polyethylene Glycol 17 gm 02/24/21 12:08 02/24/21 12:47 Polyethylene Glycol 3350 17 Gm Powder PO 17 gm QDAY PRN Administration Constipation Propranolol HCl 20 mg 02/20/21 10:00 04/16/21 22:55 Propranolol 10 Mg Tab PO 20 mg BID LEYLA Administration Rifaximin 550 mg 03/10/21 12:00 04/16/21 22:55 Rifaximin 550 Mg Tab PO 550 mg BID LEYLA Administration Sodium Chloride 10 ml 02/19/21 10:00 04/16/21 22:56 Sodium Chloride 0.9% 10 Ml Flush Syringe IV Not Given BID LEYLA Sodium Chloride 10 ml 02/18/21 22:38 Sodium Chloride 0.9% 10 Ml Flush Syringe IV PRN PRN LINE FLUSH Zolpidem Tartrate 5 mg 02/24/21 09:54 04/14/21 21:27 Zolpidem 5 Mg Tab PO 5 mg QHS PRN Administration Sleep Nutrition/Malnutrition Assess - Dietary Evaluation Nutrition/Malnutrition Findings: Nutrition Notes Start: 02/19/21 10:48 Freq: Status: Active Protocol: Document 04/12/21 11:23 ALISSA (Rec: 04/12/21 11:25 ALISSA [id number]) Nutrition Notes Initial or Follow up Reassessment Current Diagnosis CKD (stage V CKD),Diabetes Other Pertinent Diagnosis COVID-19 (+), hepatic encephalopathy, ascites Current Diet Renal/Consistent CHO + Nepro once daily Labs/Tests K 2.6 BUN 62 Cr 7 Pertinent Medications Phoslo Height 5 ft 11 in Weight 71.3 kg [place] Body Weight (kg) 78.18 BMI 21.9 Weight Status Appropriate Subjective/Other Information FU for intakes. Pt did not answer phone x2. Pt eating 100 % of meals, per chart. Percent of energy/protein needs met: 100%/100% Burn Absent Trauma Absent Current % PO Good (75-100%) Minimum of two criteria Yes Body Fat Depletion Mild depletion (non-severe) Fluid Accumulation Mild (non-severe) #2 Nutrition Diagnosis Increased nutrient needs ( specify in comment below) Diagnosis Progress(for reassessment Continues documentation) #1 Nutrition Diagnosis Malnutrition Diagnosis Progress(for reassessment Continues documentation) Is patient on ventilator? No Is Patient Ambulatory and/or Out of Bed No REE-([facility]-confined to bed) [phone] Calculation Used for Recommendations [facility] Additional Notes Pro needs >1.2g/kg/day Fluid needs 1-1.5L/day Nutrition Intervention Change Diet Order: Continue current Add Supplement/Snack (indicate name/kcal Nepro daily /protein ) Provides kCal: 425 Provides Protein (gm) 19 Goal #1 PO intake of meals plus ONS to meet at least 75% energy and pro needs Goal #2 Wound healing Follow-Up By: 04/19/21 Additional Comments FU for stable intakes and ONS tolerance
[2021-04-17] MEDS: INSULIN LISPRO 100 UNIT/ML SUB-Q SCH ×5 (08:36→22:33)
[2021-04-17] MEDS: CALCIUM ACETATE 667 MG CAP PO SCH ×4 (08:37→18:25)
[2021-04-17] MEDS: PROPRANOLOL 10 MG TAB PO SCH ×2 (10:55→22:32)
[2021-04-17] MEDS: FAMOTIDINE 20 MG TAB PO SCH (10:56)
[2021-04-17] MEDS: RIFAXIMIN 550 MG TAB PO SCH ×2 (10:57→22:29)
[2021-04-17] MEDS: allopurinoL 100 MG TAB PO SCH (10:57)
--- NOTE | 2021-04-17 12:16 | Progress Note ---
Assessment and Plan 1. ESRD: Patient is on maintenance hemodialysis three times a week, MWF schedule. Meds dosage based on GFR. Hemodialysis: 02/19, 02/20, 02/22, 02/25, 02/27, 03/01, 03/04, 03/06, 03/08, 03/11, 03/13, 03/15, 03/18, 03/20, 03/22, 03/25, 03/27, 03/29, 04/01, 04/03, 04/05, 04/08, 04/10, 04/12, 04/15, 04/17. 2. FEN: Monitor lytes and volume status. 3. Anemia, POA: 2/2 ESRD and Liver disease. Epogen with HD. IV Iron 125 mg 04/05. PRBC as needed. 4. Cirrhosis with h/o hepatic encephalopathy: Lactulose and Rifaximin. Monitor. 5. DM type 2: SSI. Monitor. 6. Thrombocytopenia, POA. 7. COVID infection: Isolation precautions. Await placement. Subjective: Patient was seen and examined at the bedside. General Appearance: General appearance: well-developed, appears stated age, not in distress HEENT: ATNC, pupils equal Neck: trachea midline Respiratory: ctab Heart: regular, S1S2, no murmur Abdomen: soft, bowel sounds heard, distended, not tender Integumentary: no rash, warm and dry Neurologic: lethargic, not following any command Ext: no edema, R BKA Hemodialysis access: R arm AVF Subjective Date of service: 04/17/21 Principal diagnosis: Acute encephalopathy Objective - Vital Signs Vital signs: Vital Signs - 12hr 04/17/21 04/17/21 04/17/21 04:28 09:42 09:51 Temperature 98.6 F 97.7 F Pulse Rate 76 78 75 Respiratory 18 18 Rate Blood Pressure 97/57 133/56 137/67 O2 Sat by Pulse 97 Oximetry O2 Sat by Pulse 100 Oximetry [ Anterior Bilateral Throughout] O2 Sat by Pulse 100 Oximetry [ Posterior Bilateral Throughout] 04/17/21 04/17/21 04/17/21 10:00 10:30 11:00 Temperature Pulse Rate 76 81 80 Respiratory Rate Blood Pressure 125/63 118/49 106/39 O2 Sat by Pulse Oximetry O2 Sat by Pulse Oximetry [ Anterior Bilateral Throughout] O2 Sat by Pulse Oximetry [ Posterior Bilateral Throughout] 04/17/21 04/17/21 11:30 12:00 Temperature Pulse Rate 81 82 Respiratory Rate Blood Pressure 103/50 97/52 O2 Sat by Pulse Oximetry O2 Sat by Pulse Oximetry [ Anterior Bilateral Throughout] O2 Sat by Pulse Oximetry [ Posterior Bilateral Throughout] - Lab 04/12/21 06:54 04/12/21 06:54 Most recent lab results Calcium 9.4 mg/dL (8.4-10.2) 04/12/21 06:54 Phosphorus 3.40 mg/dL (2.5-4.5) 04/03/21 07:30 Magnesium 2.10 mg/dL (1.7-2.3) 02/17/21 02:24 Medications & Allergies - Medications Allergies/Adverse Reactions: Allergies No Known Allergies Allergy (Verified 02/16/21 18:26) Home Medications: Home Medications Medication Instructions Recorded Confirmed Last Taken Type Calcium Acetate [Phoslo] 1,334 mg PO TIDWM #90 capsule 03/01/21 Unknown Rx Famotidine [Pepcid] 20 mg PO QAM #30 tablet 03/01/21 Unknown Rx Lactulose [Cephulac] 20 gm PO Q8HR 30 Days 03/01/21 Unknown Rx Lispro Insulin [HumaLOG] See Protocol SQ ACHS 30 Days 03/01/21 Unknown Rx allopurinoL [Zyloprim] 100 mg PO QDAY #30 tablet 03/01/21 Unknown Rx propranoloL [Inderal] 20 mg PO BID #60 tablet 03/01/21 Unknown Rx Active Medications: Generic Name Dose Route Start Last Admin Trade Name Vinayq PRN Reason Stop Dose Admin Acetaminophen 650 mg 02/18/21 22:38 03/09/21 13:15 Acetaminophen 325 Mg Tab PO 650 mg Q4H PRN Administration Pain MILD(1-3)/Fever >100.5/MOLINA Albuterol 2.5 mg 02/18/21 22:38 Albuterol 2.5 Mg/3 Ml Nebu IH Q3HRT PRN Shortness Of Breath Allopurinol 100 mg 02/20/21 10:00 04/17/21 10:57 Allopurinol 100 Mg Tab PO Not Given QDAY LEYLA Calcium Acetate 1,334 mg 02/20/21 08:30 04/17/21 08:37 Calcium Acetate 667 Mg Cap PO 1,334 mg TIDWM LEYLA Administration Dextrose 50 ml 03/29/21 12:00 Dextrose 50% In Water (25gm) 50 Ml Syringe IV Q30MIN PRN HYPOGLYCEMIA Protocol Diphenhydramine HCl 25 mg 02/23/21 09:10 03/24/21 09:01 Diphenhydramine 25 Mg Cap PO 25 mg BID PRN Administration Itching Famotidine 20 mg 02/19/21 10:00 04/17/21 10:56 Famotidine 20 Mg Tab PO Not Given QAM LEYLA Hydralazine HCl 10 mg 02/18/21 22:56 Hydralazine 20 Mg/1 Ml Inj IV Q6H PRN htn Hydroxyzine HCl 25 mg 03/24/21 10:38 Hydroxyzine Hcl 25 Mg Tab PO Q6H PRN Itching Sodium Chloride 100 mls @ 999 mls/hr 02/19/21 09:06 Nacl 0.9% IV OLIVIA PRN Hypotension Insulin Glargine 16 units 03/23/21 09:00 04/16/21 22:55 Insulin Glargine 100 Units/Ml SUB-Q 16 units QHS LEYLA Administration Insulin Human Lispro 0 unit 03/09/21 22:00 04/17/21 08:36 Insulin Lispro 100 Unit/Ml SUB-Q 3 unit ACHS LEYLA Administration Protocol Lactulose 20 gm 03/09/21 18:00 04/17/21 06:42 Lactulose 20 Gm/30 Ml Oral Liqd PO 20 gm Q6HR LEYLA Administration Ondansetron HCl 4 mg 02/18/21 22:38 02/28/21 12:32 Ondansetron 4 Mg/2 Ml Inj IV 4 mg Q8H PRN Administration Nausea And Vomiting Polyethylene Glycol 17 gm 02/24/21 12:08 02/24/21 12:47 Polyethylene Glycol 3350 17 Gm Powder PO 17 gm QDAY PRN Administration Constipation Propranolol HCl 20 mg 02/20/21 10:00 04/17/21 10:55 Propranolol 10 Mg Tab PO Not Given BID LEYLA Rifaximin 550 mg 03/10/21 12:00 04/17/21 10:57 Rifaximin 550 Mg Tab PO Not Given BID LEYLA Sodium Chloride 10 ml 02/19/21 10:00 04/16/21 22:56 Sodium Chloride 0.9% 10 Ml Flush Syringe IV Not Given BID LEYLA Sodium Chloride 10 ml 02/18/21 22:38 Sodium Chloride 0.9% 10 Ml Flush Syringe IV PRN PRN LINE FLUSH Zolpidem Tartrate 5 mg 02/24/21 09:54 04/14/21 21:27 Zolpidem 5 Mg Tab PO 5 mg QHS PRN Administration Sleep
[2021-04-17] MEDS: INSULIN GLARGINE 100 UNITS/ML SUB-Q SCH (22:29)
[2021-04-18] MEDS: LACTULOSE 20 GM/30 ML ORAL LIQD PO SCH ×5 (00:21→23:15)
--- NOTE | 2021-04-18 07:35 | Progress Note ---
Assessment and Plan Assessment and plan: -- Hepatic encephalopathy due to hepatic cirrhosis cont lactulose, Neuro check, seizure precaution, aspiration precaution, fall precautions, continue to monitor. -- End stage renal disease Nephrology team consulted, strict I's/O, monitor urine output every shift, dialysis as per renal team, avoid nephrotoxic agents. --Metabolic Acidosis Nephrology team consulted, dialysis as per renal team. --Hyponatremia Monitor BMP, monitor fluid balance. -- Hyperammonemia Continue lactulose --Diabetes mellitus with hyperglycemia Consistent carb diet, SSI -- hyperkalemia, Improvement with dialysis --Ascitis, s/p paracentesis drained 6.2l of ascitic fluid --Sacral wound, cont wound care -- Moderate Protein Calorie Malnutrition, nutrition consulted --Noncompliance, counseled for medication compliance -- Thrombocytopenia --DVT Px, SCD --DNR code status --Disposition: needs placement, CM waiting for placement -- Hepatic encephalopathy -Patient alert and oriented x3. due to hepatic cirrhosis has resolved cont lactulose, Neuro check, seizure precaution, aspiration precaution, fall precautions, continue to monitor. -Diarrhea resolved was secondary to lactulose. Patient is alert no enceph alopathy. -- End stage renal disease Nephrology team consulted, strict I's/O, monitor urine output every shift, dialysis as per renal team, avoid nephrotoxic agents. Await dialysis center. Still no dialysis center. We will dialyze as indicated. --Metabolic Acidosis Nephrology team consulted, dialysis as per renal team. --Hyponatremia Monitor BMP, monitor fluid balance.-Does not require to be checked today we will check every other day now. -- Hyperammonemia Continue lactulose --Pruritus Add Atarax most likely secondary to liver failure --Diabetes mellitus with hyperglycemia Consistent carb diet, SSI -- hyperkalemia, Improvement with dialysis --Ascites, s/p paracentesis drained 6.2l of ascitic fluid -no further ascites at this time. --Sacral wound, pain control continue local wound care. -- Moderate Protein Calorie Malnutrition, nutrition consulted --Noncompliance, counseled for medication compliance --Depression discussed about depression and initiation of Zoloft [facility] 02/19: Resume dialysis will adjust insulin for better coverage. Very poor prognosis considering poor medical compliance. Agree with hospice recommendation. Will obtain wound care to continue to manage. Monitor anemia as patient was pretty anemic during the last hospitalization. Required transfusion. 02/20: Continues to undergo dialysis no change in mental status noted. Tolerating medications. Blood sugar mildly elevated adjusted insulin yesterday when awake for the patient received a dose today and if still elevated will adjust. Again case management is working on discharge plan for this patient as he is pending placement 02/21 patient complains of right hip pain. He said he fell few weeks ago and is concerned about another fracture. He had a fracture about 8 weeks ago and had surgery. Will obtain X ray right hip. Patient pending placement. 02/22 Patient seen in Dialysis Unit. He states hip pain improved. No other complaints. Right hip X ray done yesterday report read may be healing fracture or acute fracture. Will discuss with Orthopedic Surgeon Patient pending placement 02/23 Less hip pain. Today complains of generalized itching. Will start Benadryl po prn. Orthopedic consulted to evaluate right hip. Patient pending placement 02/24 Less hip pain. Generalized itching now resolved. Orthopedic consulted to evaluate right hip. He complains of sleeplessness. Will give Ambien prn Patient pending placement 02/25 Patient requested DNR status yesterday. I discussed with him and he signed forms. He also complains of worsening abdominal distension and requested tapping, Will order paracentesis. Right hip evaluated by Dr. Trivedi and conservative management recommended. 02/26: Plan for paracentesis today. Need to set up dialysis as outpatient. food service manager working on discharge planning. 02/27: Patient did not sign the consent for paracentesis yesterday so paracentesis was done today and aspirated 6.2L ascitic fluid. Patient refusing medication per RN. Getting dialysis. Patient noted slightly altered today, will place NG tube remains altered and keep refusing oral meds, order for ammonia level and will cont lactulose. 02/28: Patient appears much more calm and cooperative today. He stated that he has been refusing procedure and medication as he believes he was not in the right state of his mind. Patient acknowledges the importance of being compliant and he promises that he will take the medications as he will be given. Discharge planning per case management as patient would need outpatient dialysis center set up and personal senior living set up. 03/01/21: [facility] has [facility] setting but according to disability case manager no available RN to accept the patient till Thursday. Continue supportive care. Discharge pending on placement. 03/02/21 -03/04/21: Discharge pending on placement, continue to monitor clinically. Continue current management and plan and supportive care. Patient need SNF placement. 03/05/2021; Awaiting SNF placement for discharge. Prognosis is very poor. Patient is nonresponsive. I try to reach to his son over the phone but could not get in touch. Patient is appropriate for hospice care. 03/06/2021; patient is awaiting SNF placement. Patient was alert and oriented. No confusion. Patient is stable to be discharged back to SNF. 03/07/2021; patient has hemoglobin of 6.8 this morning. A unit of blood ordered. Will monitor H&H. Nephrology is following for dialysis. 03/08/2021; patient's hemoglobin was 6.8 yesterday and transfused a unit of blood. I ordered yesterday to do posttransfusion H&H and was not done. CBC was ordered to be done this morning but was not done. COVID-19 test was done on 03/06 and positive. Nephrology is following the patient for his dialysis. Plan is to discharge him to SNF. Will follow with case management because patient is Covid positive. 03/09/2021; patient's repeat Covid test on 03/08/2021 was positive. Patient is pending for SNF Placement. Patient had hypoglycemia yesterday and patient was placed on Lantus and his sliding scale adjusted to high dose. Will monitor and adjust as needed. 03/10/2021; pending SNF placement. Covid test was positive on and . 03/11/2021; patient has hepatic encephalopathy and his ammonia level is very high , patient is currently on lactulose and rifaximin. Ammonia level is trending down. Nephrology is following for dialysis. Patient has positive Covid test last one was on 03/08, that makes placement difficult. Continue with case management. 03/12: Still awaiting placement, discussed with nursing staff to monitor mental status changes. Will check ammonia level. Continue to adjust blood sugar. C omplicated by COVID POSITIVELY. Awaiting placement for the patient. Also dialysis chair time. I have discussed with case management as my understanding was that patient was to go for hospice but this plan appears to have changed possibly not clear to me at this time 03/13: Continue supportive care crush medications that can be crushed. Ammonia level is elevated but not as elevated as previously. Continue lactulose advised nursing staff that this should be given as ordered to communicate with the night team also. Unfortunately when the patient gets better he refuses his lactulose. I truly believe that we should strongly consider palliative care for this patient but nevertheless if he wants to continue dialysis and will be compliant with his medications this is definitely an option can be pursued. Aspiration precautions monitor hemoglobin and platelets. 03/14: Patient seen and examined, more awake today. Continue supportive care, patient was made DNR wade, signed the form today after confirming the patient and also the physician. Monitor for fever. AWAITING PLACEMENT. poor prognosis 03/15/21 Patient is seen and examined. Lab and medication reviewed. Patient denied any chest pain or shortness of breath. Patient is more awake alert today. Patient is getting them hemodialysis today. Continue current management. Awaiting placement. 03/16/21 patient seen and examined. Lab and medication reviewed. Patient feels better. Hemoglobin 8.2 and hematocrit 23.9. Complained of pain in the butt. No other complain. Continue current management and supportive care. Patient is waiting for placement. 03/17: Patient remains with poor prognosis refusing dietary intake. Again discussed hospice and palliative care management considering his current medical condition and declining poor prognostic factors. Discussed with nursing staff patient will continue with lactulose had refused this morning but did take it yesterday. Continue aspiration precautions. Discussed the importance of taking the medication the patient verbalized understanding 03/18: Patient undergoing HD discharge planning ongoing discussed with case management team. Covid test ordered today for placement purposes. 03/19/2021; Covid test was ordered and result is pending. Pending placement. 03/20/2021; patient's Covid test was positive again on 03/20/2021. Pending placement. 03/21/2021. Patient cooperative no acute distress at this time. Complains of loose stool diarrhea. Still awaiting placement. Unable to find hemodialysis placement 03/22/2021. Patient last Covid test was positive however initial test was greater than 14 days ago. Patient is no longer infected. Unable to find hemodialysis line at present. Patient being evaluated for [facility]. 03/23/2021. Patient continues to state he feels good much better at this time. Resting comfortably. No distress noted. Still awaiting hemodialysis center. 03/24/2021 patient with flat mood discussed about depression. Resting comfortably watching TV. 03/25/2021. Patient denies depression at this time. Complains of itching all over. When am i getting out of here 03/26/2021. Case management reports patient is still awaiting hemodialysis placement 03/27/2021. Case management reports patient is still awaiting hemodialysis placement. Patient is on maintenance hemodialysis three times a week, MWF schedule. Cont. Lactulose and Rifaximin. Epogen with HD. 03/28/2021. Case management reports patient is still awaiting hemodialysis placement. 03/29/2021. Plan is for the patient to go to [facility] and awaiting on hemodialysis arrangements. [facility] and does not have a bed available. Covid test ordered. We will continue to follow up with case management on discharge planning. 03/30/2021. No new developments. Await hemodialysis placement and potential transfer to [facility]. 03/31/2021. No new developments. Await hemodialysis placement and potential transfer to [facility]. 04/03/2021 [facility]ing for transfer to [facility] facility 04/04/2021 Waiting for transfer to [facility] facility 04/05/2021 Undergoing hemodialysis during making examination Waiting for placement 04/06/2021 Waiting for placement 04/07/2021 Waiting for placement 04/08/2021 Waiting for placement 04/09: Patient seen and examined a little bit lethargic otherwise no new changes. Awaiting placement noted thrombocytopenia continue to monitor. Discussed with case management and Nursing staff. 04/10: Thrombocytopenia persist, continue to monitor. Still with lethargy. Continue to monitor, Aspiration precautions. Continue with HD 04/11: Discussed with case management patient may possibly have a HD time today and will be able to be discharged unfortunately I think patient has a really poor prognosis considering his liver failure and my recommendation remains for hospice management to be considered outpatient. Patient however wants to continue dialysis. We will continue lactulose. 04/12: Today admitted with hyperkalemia expect correction with dialysis. We will recheck BMP in a.m.. Discussed with nursing staff will continue lactulose at this time. Awaiting placement. Poor prognosis 04/13: m continues with very poor prognosis considering overall clinical condition. Family will had a discussion with case management about hospice. Case management working on this while we will continue to work on other discharge plans. 04/14: Tolerating tube feeds awaiting placement and possible hospice placement. 04/15: Brief summary: 55 YO Male with ESRD on HD, Noncompliance with outpatient dialysis, Anemia, HBV, Chronic Liver Disease, Cirrhosis complicated by Esophageal Varices, HTN, Debility, DM presents to ED with confusion with diminished cognition. Patient family report the patient was "not acting like himself" and found to have worsening confusion over the past 2 days. In the ER the patient was found to have hepatic encephalopathy complicated by diminished cognition, end-stage renal disease in need of urgent dialysis, as well as uncontrolled diabetes, and acidosis. Nephrology team consulted in ED and patient was then admitted for further evaluation and Mx. He has been in the hospital for about 55 days continues to go on dialysis. Repeat Covid test has always come back positive although he is not requiring oxygen. He does have intermittent confusion and does not seem to have any good prognosis considering his alcoholic hepatitis. Continue to encourage nurses to give him his lactulose. He is awaiting hospice decision. 04/16; Awaiting hospice decision. Discussed with case management and she told me to send referral to different hospice facilities. 04/17; awaiting acceptance by hospice facilities. Patient had positive Covid test multiple times. 09/18; pending hospice placement. History Interval history: Patient was seen and evaluated this morning Patient doesn't have new complaints Hospitalist Physical - Physical exam Narrative exam: Not in cardiopulmonary distress. The patient appeared well nourished and normally developed. Vital signs as documented. Head exam is unremarkable. No scleral icterus . Neck is without jugular venous distension, thyromegaly, or carotid bruits. Lungs are clear to auscultation. Cardiac exam reveals regular rate and Rhythm. Abdominal exam reveals normal bowel sounds, nontender, no organomegaly. Extremities right BKA. 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 Sacral decubitus ulcer. - Constitutional Vitals: Temp Pulse Resp BP Pulse Ox 98.2 F 81 19 132/68 99 04/18/21 06:04/18/21 06:04/18/21 06:04/18/21 06:04/18/21 06:26 General appearance: Present: no acute distress, well-nourished Results - Labs CBC & Chem 7: 04/12/21 06:54 04/12/21 06:54 Labs: Laboratory Last Values WBC 3.5 K/mm3 (4.5-11.0) L 04/12/21 06:54 RBC 2.71 M/mm3 (3.65-5.03) L 04/12/21 06:54 Hgb 8.3 gm/dl (11.8-15.2) L 04/12/21 06:54 Hct 25.1 % (35.5-45.6) L 04/12/21 06:54 MCV 93 fl (84-94) 04/12/21 06:54 MCH 31 pg (28-32) 04/12/21 06:54 MCHC 33 % (32-34) 04/12/21 06:54 RDW 20.1 % (13.2-15.2) H 04/12/21 06:54 Plt Count 105 K/mm3 (140-440) L 04/12/21 06:54 Lymph % (Auto) 18.6 % (13.4-35.0) 04/05/21 07:46 [place] % (Auto) 12.6 % (0.0-7.3) H 04/05/21 07:46 Eos % (Auto) 3.4 % (0.0-4.3) 04/05/21 07:46 Baso % (Auto) 1.0 % (0.0-1.8) 04/05/21 07:46 Lymph # (Auto) 0.7 K/mm3 (1.2-5.4) L 04/05/21 07:46 [place] # (Auto) 0.5 K/mm3 (0.0-0.8) 04/05/21 07:46 Eos # (Auto) 0.1 K/mm3 (0.0-0.4) 04/05/21 07:46 Baso # (Auto) 0.0 K/mm3 (0.0-0.1) 04/05/21 07:46 Add Manual Diff Complete 03/07/21 05:23 Total Counted 100 03/07/21 05:23 Seg Neutrophils % 64.4 % (40.0-70.0) 04/05/21 07:46 Seg Neuts % (Manual) 78.0 % (40.0-70.0) H 03/07/21 05:23 Lymphocytes % (Manual) 13.0 % (13.4-35.0) L 03/07/21 05:23 Monocytes % (Manual) 9.0 % (0.0-7.3) H 03/07/21 05:23 Nucleated RBC % Not Reportable 03/07/21 05:23 Seg Neutrophils # 2.3 K/mm3 (1.8-7.7) 04/05/21 07:46 Seg Neutrophils # Man 2.0 K/mm3 (1.8-7.7) 03/07/21 05:23 Band Neutrophils # 0.0 K/mm3 03/07/21 05:23 Lymphocytes # (Manual) 0.3 K/mm3 (1.2-5.4) L 03/07/21 05:23 Abs React Lymphs (Man) 0.0 K/mm3 03/07/21 05:23 Monocytes # (Manual) 0.2 K/mm3 (0.0-0.8) 03/07/21 05:23 Eosinophils # (Manual) 0.0 K/mm3 (0.0-0.4) 03/07/21 05:23 Basophils # (Manual) 0.0 K/mm3 (0.0-0.1) 03/07/21 05:23 Metamyelocytes # 0.0 K/mm3 03/07/21 05:23 Myelocytes # 0.0 K/mm3 03/07/21 05:23 Promyelocytes # 0.0 K/mm3 03/07/21 05:23 Blast Cells # 0.0 K/mm3 03/07/21 05:23 WBC Morphology Not Reportable 03/07/21 05:23 Hypersegmented Neuts Not Reportable 03/07/21 05:23 Hyposegmented Neuts Not Reportable 03/07/21 05:23 Hypogranular Neuts Not Reportable 03/07/21 05:23 Smudge Cells Not Reportable 03/07/21 05:23 Toxic Granulation Not Reportable 03/07/21 05:23 Toxic Vacuolation Not Reportable 03/07/21 05:23 Dohle Bodies Not Reportable 03/07/21 05:23 Pelger-Huet Anomaly Not Reportable 03/07/21 05:23 Cosme Rods Not Reportable 03/07/21 05:23 Platelet Estimate Consistent w auto 03/07/21 05:23 Clumped Platelets Not Reportable 03/07/21 05:23 Plt Clumps, EDTA Not Reportable 03/07/21 05:23 Large Platelets Not Reportable 03/07/21 05:23 Giant Platelets Not Reportable 03/07/21 05:23 Platelet Satelliting Not Reportable 03/07/21 05:23 Plt Morphology Comment Not Reportable 03/07/21 05:23 RBC Morphology Not Reportable 03/07/21 05:23 Dimorphic RBCs Not Reportable 03/07/21 05:23 Polychromasia Not Reportable 03/07/21 05:23 Hypochromasia Not Reportable 03/07/21 05:23 Poikilocytosis Not Reportable 03/07/21 05:23 Anisocytosis Few 03/07/21 05:23 Microcytosis Not Reportable 03/07/21 05:23 Macrocytosis Not Reportable 03/07/21 05:23 Spherocytes Not Reportable 03/07/21 05:23 Pappenheimer Bodies Not Reportable 03/07/21 05:23 Sickle Cells Not Reportable 03/07/21 05:23 Target Cells Not Reportable 03/07/21 05:23 Tear Drop Cells Not Reportable 03/07/21 05:23 Ovalocytes Not Reportable 03/07/21 05:23 Helmet Cells Not Reportable 03/07/21 05:23 [place] Bodies Not Reportable 03/07/21 05:23 [place] Rings Not Reportable 03/07/21 05:23 Pierpont Cells Not Reportable 03/07/21 05:23 Bite Cells Not Reportable 03/07/21 05:23 Crenated Cell Not Reportable 03/07/21 05:23 Elliptocytes Not Reportable 03/07/21 05:23 Acanthocytes (Spur) Not Reportable 03/07/21 05:23 Rouleaux Not Reportable 03/07/21 05:23 Hemoglobin C Crystals Not Reportable 03/07/21 05:23 Schistocytes Not Reportable 03/07/21 05:23 Malaria parasites Not Reportable 03/07/21 05:23 Samir Bodies Not Reportable 03/07/21 05:23 Hem Pathologist Commnt No 03/07/21 05:23 PT 13.7 Sec. (12.2-14.9) 02/26/21 04:33 INR 1.00 (0.87-1.13) 02/26/21 04:33 Sodium 138 mmol/L (137-145) 04/12/21 06:54 Potassium 5.2 mmol/L (3.6-5.0) H D 04/12/21 06:54 Chloride 98.6 mmol/L (98-107) 04/12/21 06:54 Carbon Dioxide 30 mmol/L (22-30) 04/12/21 06:54 Anion Gap 15 mmol/L 04/12/21 06:54 BUN 62 mg/dL (9-20) H 04/12/21 06:54 Creatinine 7.0 mg/dL (0.8-1.3) H 04/12/21 06:54 Estimated GFR 8 ml/min 04/12/21 06:54 BUN/Creatinine Ratio 9 % 04/12/21 06:54 Glucose 107 mg/dL (75-100) H 04/12/21 06:54 POC Glucose 171 mg/dL (70-105) H 04/17/21 21:21 Hemoglobin A1c 7.4 % (4-6) H 02/26/21 04:33 Calcium 9.4 mg/dL (8.4-10.2) 04/12/21 06:54 Phosphorus 3.40 mg/dL (2.5-4.5) 04/03/21 07:30 Magnesium 2.10 mg/dL (1.7-2.3) 02/17/21 02:24 Iron 52 ug/dL (49-181) 03/30/21 05:11 TIBC 203 mcg/dL (250-450) L 03/30/21 05:11 Ferritin 70.9 ng/mL (30.0-300.0) 03/30/21 05:11 Total Bilirubin 0.60 mg/dL (0.1-1.2) 04/05/21 07:46 Direct Bilirubin 0.3 mg/dL (0-0.2) H 03/14/21 07:24 Indirect Bilirubin 0.3 mg/dL 03/14/21 07:24 AST 34 units/L (5-40) 04/05/21 07:46 ALT 23 units/L (7-56) 04/05/21 07:46 Alkaline Phosphatase 183 units/L (35-129) H 04/05/21 07:46 Ammonia 68.0 umol/L (25-60) H 04/05/21 07:46 Total Creatine Kinase 86 units/L (55-170) 02/17/21 02:24 Total Protein 5.8 g/dL (6.3-8.2) L 04/05/21 07:46 Albumin 2.5 g/dL (3.9-5) L 04/05/21 07:46 Albumin/Globulin Ratio 0.8 % 04/05/21 07:46 Vitamin B12 1583 pg/mL (211-911) H 03/30/21 05:11 Folate 10.11 ng/mL (7.3-26.0) 03/30/21 05:11 TSH 0.986 mlU/mL (0.270-4.200) 02/17/21 02:24 Urine Color Yellow (Yellow) 02/17/21 Unknown Urine Turbidity Clear (Clear) 02/17/21 Unknown Urine pH 6.0 (5.0-7.0) 02/17/21 Unknown Ur Specific [place] 1.012 (1.003-1.030) 02/17/21 Unknown Urine Protein 100 mg/dl mg/dL (Negative) 02/17/21 Unknown Urine Glucose (UA) >=500 mg/dL (Negative) 02/17/21 Unknown Urine Ketones Neg mg/dL (Negative) 02/17/21 Unknown Urine Blood Neg (Negative) 02/17/21 Unknown Urine Nitrite Neg (Negative) 02/17/21 Unknown Urine Bilirubin Neg (Negative) 02/17/21 Unknown Urine Urobilinogen < 2.0 mg/dL (<2.0) 02/17/21 Unknown Ur Leukocyte Esterase Neg (Negative) 02/17/21 Unknown Urine WBC (Auto) 2.0 /HPF (0.0-6.0) 02/17/21 Unknown Urine RBC (Auto) 2.0 /HPF (0.0-6.0) 02/17/21 Unknown U Epithel Cells (Auto) < 1.0 /HPF (0-13.0) 02/17/21 Unknown Urine Bacteria (Auto) 1+ /HPF (Negative) 02/17/21 Unknown Salicylates < 0.3 mg/dL (2.8-20.0) L 02/17/21 02:24 Acetaminophen 5.0 ug/mL (10.0-30.0) L 02/17/21 02:24 Coronavirus (PCR) Positive (Negative) A 04/10/21 Unknown Hepatitis A IgM Ab Non-reactive (NonReactive) 02/28/21 12:37 Hep Bs Antigen Non-reactive (Negative) 03/28/21 18:57 Hep B Core IgM Ab Non-reactive (NonReactive) 02/28/21 12:37 Hepatitis C Antibody Non-reactive (NonReactive) 02/28/21 12:37 Blood Type A POSITIVE 03/07/21 06:31 Antibody Screen Negative 03/07/21 06:31 Crossmatch See Detail 03/07/21 06:31 Sr/IV: Voiding Method Diaper Active Medications - Current Medications Current Medications: Generic Name Dose Route Start Last Admin Trade Name Freq PRN Reason Stop Dose Admin Acetaminophen 650 mg 02/18/21 22:38 03/09/21 13:15 Acetaminophen 325 Mg Tab PO 650 mg Q4H PRN Administration Pain MILD(1-3)/Fever >100.5/MOLINA Albuterol 2.5 mg 02/18/21 22:38 Albuterol 2.5 Mg/3 Ml Nebu IH Q3HRT PRN Shortness Of Breath Allopurinol 100 mg 02/20/21 10:00 04/17/21 10:57 Allopurinol 100 Mg Tab PO Not Given QDAY LEYLA Calcium Acetate 1,334 mg 02/20/21 08:30 04/17/21 18:25 Calcium Acetate 667 Mg Cap PO 1,334 mg TIDWM LEYLA Administration Dextrose 50 ml 03/29/21 12:00 Dextrose 50% In Water (25gm) 50 Ml Syringe IV Q30MIN PRN HYPOGLYCEMIA Protocol Diphenhydramine HCl 25 mg 02/23/21 09:10 03/24/21 09:01 Diphenhydramine 25 Mg Cap PO 25 mg BID PRN Administration Itching Famotidine 20 mg 02/19/21 10:00 04/17/21 10:56 Famotidine 20 Mg Tab PO Not Given QAM LEYLA Hydralazine HCl 10 mg 02/18/21 22:56 Hydralazine 20 Mg/1 Ml Inj IV Q6H PRN htn Hydroxyzine HCl 25 mg 03/24/21 10:38 Hydroxyzine Hcl 25 Mg Tab PO Q6H PRN Itching Sodium Chloride 100 mls @ 999 mls/hr 02/19/21 09:06 Nacl 0.9% IV OLIVIA PRN Hypotension Insulin Glargine 16 units 03/23/21 09:00 04/17/21 22:29 Insulin Glargine 100 Units/Ml SUB-Q 16 units QHS LEYLA Administration Insulin Human Lispro 0 unit 03/09/21 22:00 04/17/21 22:33 Insulin Lispro 100 Unit/Ml SUB-Q 3 unit ACHS LEYLA Administration Protocol Lactulose 20 gm 03/09/21 18:00 04/18/21 06:40 Lactulose 20 Gm/30 Ml Oral Liqd PO 20 gm Q6HR LEYLA Administration Ondansetron HCl 4 mg 02/18/21 22:38 02/28/21 12:32 Ondansetron 4 Mg/2 Ml Inj IV 4 mg Q8H PRN Administration Nausea And Vomiting Polyethylene Glycol 17 gm 02/24/21 12:08 02/24/21 12:47 Polyethylene Glycol 3350 17 Gm Powder PO 17 gm QDAY PRN Administration Constipation Propranolol HCl 20 mg 02/20/21 10:00 04/17/21 22:32 Propranolol 10 Mg Tab PO Not Given BID LEYLA Rifaximin 550 mg 03/10/21 12:00 04/17/21 22:29 Rifaximin 550 Mg Tab PO 550 mg BID LEYLA Administration Sodium Chloride 10 ml 02/19/21 10:00 04/17/21 22:31 Sodium Chloride 0.9% 10 Ml Flush Syringe IV Not Given BID LEYLA Sodium Chloride 10 ml 02/18/21 22:38 Sodium Chloride 0.9% 10 Ml Flush Syringe IV PRN PRN LINE FLUSH Zolpidem Tartrate 5 mg 02/24/21 09:54 04/14/21 21:27 Zolpidem 5 Mg Tab PO 5 mg QHS PRN Administration Sleep Nutrition/Malnutrition Assess - Dietary Evaluation Nutrition/Malnutrition Findings: Nutrition Notes Start: 02/19/21 10:48 Freq: Status: Active Protocol: Document 04/12/21 11:23 ALISSA (Rec: 04/12/21 11:25 ALISSA [id number]) Nutrition Notes Initial or Follow up Reassessment Current Diagnosis CKD (stage V CKD),Diabetes Other Pertinent Diagnosis COVID-19 (+), hepatic encephalopathy, ascites Current Diet Renal/Consistent CHO + Nepro once daily Labs/Tests K 2.6 BUN 62 Cr 7 Pertinent Medications Phoslo Height 5 ft 11 in Weight 71.3 kg [place] Body Weight (kg) 78.18 BMI 21.9 Weight Status Appropriate Subjective/Other Information FU for intakes. Pt did not answer phone x2. Pt eating 100 % of meals, per chart. Percent of energy/protein needs met: 100%/100% Burn Absent Trauma Absent Current % PO Good (75-100%) Minimum of two criteria Yes Body Fat Depletion Mild depletion (non-severe) Fluid Accumulation Mild (non-severe) #2 Nutrition Diagnosis Increased nutrient needs ( specify in comment below) Diagnosis Progress(for reassessment Continues documentation) #1 Nutrition Diagnosis Malnutrition Diagnosis Progress(for reassessment Continues documentation) Is patient on ventilator? No Is Patient Ambulatory and/or Out of Bed No REE-([facility]-confined to bed) 3632.701 Calculation Used for Recommendations [facility] Additional Notes Pro needs >1.2g/kg/day Fluid needs 1-1.5L/day Nutrition Intervention Change Diet Order: Continue current Add Supplement/Snack (indicate name/kcal Nepro daily /protein ) Provides kCal: 425 Provides Protein (gm) 19 Goal #1 PO intake of meals plus ONS to meet at least 75% energy and pro needs Goal #2 Wound healing Follow-Up By: 04/19/21 Additional Comments FU for stable intakes and ONS tolerance
[2021-04-18] MEDS: FAMOTIDINE 20 MG TAB PO SCH (09:12)
[2021-04-18] MEDS: CALCIUM ACETATE 667 MG CAP PO SCH ×3 (09:12→18:08)
[2021-04-18] MEDS: RIFAXIMIN 550 MG TAB PO SCH ×2 (09:12→23:14)
[2021-04-18] MEDS: allopurinoL 100 MG TAB PO SCH (09:12)
[2021-04-18] MEDS: INSULIN LISPRO 100 UNIT/ML SUB-Q SCH ×4 (09:37→23:14)
[2021-04-18] MEDS: PROPRANOLOL 10 MG TAB PO SCH ×2 (09:49→23:14)
--- NOTE | 2021-04-18 12:02 | Progress Note ---
Assessment and Plan 1. ESRD: Patient is on maintenance hemodialysis three times a week, MWF schedule. Meds dosage based on GFR. Hemodialysis: 02/19, 02/20, 02/22, 02/25, 02/27, 03/01, 03/04, 03/06, 03/08, 03/11, 03/13, 03/15, 03/18, 03/20, 03/22, 03/25, 03/27, 03/29, 04/01, 04/03, 04/05, 04/08, 04/10, 04/12, 04/15, 04/17. 2. FEN: Monitor lytes and volume status. 3. Anemia, POA: 2/2 ESRD and Liver disease. Epogen with HD. IV Iron 125 mg 04/05. PRBC as needed. 4. Cirrhosis with h/o hepatic encephalopathy: Lactulose and Rifaximin. S/p paracentesis 02/27. Monitor. 5. DM type 2: SSI. Monitor. 6. Thrombocytopenia, POA. 7. COVID infection: Isolation precautions. Await placement. Subjective: Patient was seen and examined at the bedside. General Appearance: General appearance: well-developed, appears stated age, not in distress HEENT: ATNC, pupils equal Neck: trachea midline Respiratory: ctab Heart: regular, S1S2, no murmur Abdomen: soft, bowel sounds heard, distended, not tender Integumentary: no rash, warm and dry Neurologic: lethargic, not following any command Ext: no edema, R BKA Hemodialysis access: R arm AVF Subjective Date of service: 04/18/21 Principal diagnosis: Acute encephalopathy Objective - Vital Signs Vital signs: Vital Signs - 12hr 04/18/21 04/18/21 06:26 09:49 Temperature 98.2 F Pulse Rate 81 84 Respiratory 19 Rate Blood Pressure 132/68 123/58 O2 Sat by Pulse 99 Oximetry - Lab 04/12/21 06:54 04/12/21 06:54 Most recent lab results Calcium 9.4 mg/dL (8.4-10.2) 04/12/21 06:54 Phosphorus 3.40 mg/dL (2.5-4.5) 04/03/21 07:30 Magnesium 2.10 mg/dL (1.7-2.3) 02/17/21 02:24 Medications & Allergies - Medications Allergies/Adverse Reactions: Allergies No Known Allergies Allergy (Verified 02/16/21 18:26) Home Medications: Home Medications Medication Instructions Recorded Confirmed Last Taken Type Calcium Acetate [Phoslo] 1,334 mg PO TIDWM #90 capsule 03/01/21 Unknown Rx Famotidine [Pepcid] 20 mg PO QAM #30 tablet 03/01/21 Unknown Rx Lactulose [Cephulac] 20 gm PO Q8HR 30 Days 03/01/21 Unknown Rx Lispro Insulin [HumaLOG] See Protocol SQ ACHS 30 Days 03/01/21 Unknown Rx allopurinoL [Zyloprim] 100 mg PO QDAY #30 tablet 03/01/21 Unknown Rx propranoloL [Inderal] 20 mg PO BID #60 tablet 03/01/21 Unknown Rx Active Medications: Generic Name Dose Route Start Last Admin Trade Name Freq PRN Reason Stop Dose Admin Acetaminophen 650 mg 02/18/21 22:38 03/09/21 13:15 Acetaminophen 325 Mg Tab PO 650 mg Q4H PRN Administration Pain MILD(1-3)/Fever >100.5/MOLINA Albuterol 2.5 mg 02/18/21 22:38 Albuterol 2.5 Mg/3 Ml Nebu IH Q3HRT PRN Shortness Of Breath Allopurinol 100 mg 02/20/21 10:00 04/18/21 09:12 Allopurinol 100 Mg Tab PO 100 mg QDAY LEYLA Administration Calcium Acetate 1,334 mg 02/20/21 08:30 04/18/21 09:12 Calcium Acetate 667 Mg Cap PO 1,334 mg TIDWM LEYLA Administration Dextrose 50 ml 03/29/21 12:00 Dextrose 50% In Water (25gm) 50 Ml Syringe IV Q30MIN PRN HYPOGLYCEMIA Protocol Diphenhydramine HCl 25 mg 02/23/21 09:10 03/24/21 09:01 Diphenhydramine 25 Mg Cap PO 25 mg BID PRN Administration Itching Famotidine 20 mg 02/19/21 10:00 04/18/21 09:12 Famotidine 20 Mg Tab PO 20 mg QAM LEYLA Administration Hydralazine HCl 10 mg 02/18/21 22:56 Hydralazine 20 Mg/1 Ml Inj IV Q6H PRN htn Hydroxyzine HCl 25 mg 03/24/21 10:38 Hydroxyzine Hcl 25 Mg Tab PO Q6H PRN Itching Sodium Chloride 100 mls @ 999 mls/hr 02/19/21 09:06 Nacl 0.9% IV OLIVIA PRN Hypotension Insulin Glargine 16 units 03/23/21 09:00 04/17/21 22:29 Insulin Glargine 100 Units/Ml SUB-Q 16 units QHS LEYLA Administration Insulin Human Lispro 0 unit 03/09/21 22:00 04/18/21 09:37 Insulin Lispro 100 Unit/Ml SUB-Q 3 unit ACHS LEYLA Administration Protocol Lactulose 20 gm 03/09/21 18:00 04/18/21 06:40 Lactulose 20 Gm/30 Ml Oral Liqd PO 20 gm Q6HR LEYLA Administration Ondansetron HCl 4 mg 02/18/21 22:38 02/28/21 12:32 Ondansetron 4 Mg/2 Ml Inj IV 4 mg Q8H PRN Administration Nausea And Vomiting Polyethylene Glycol 17 gm 02/24/21 12:08 02/24/21 12:47 Polyethylene Glycol 3350 17 Gm Powder PO 17 gm QDAY PRN Administration Constipation Propranolol HCl 20 mg 02/20/21 10:00 04/18/21 09:49 Propranolol 10 Mg Tab PO 20 mg BID LEYLA Administration Rifaximin 550 mg 03/10/21 12:00 04/18/21 09:12 Rifaximin 550 Mg Tab PO 550 mg BID LEYLA Administration Sodium Chloride 10 ml 02/19/21 10:00 04/18/21 09:12 Sodium Chloride 0.9% 10 Ml Flush Syringe IV Not Given BID LEYLA Sodium Chloride 10 ml 02/18/21 22:38 Sodium Chloride 0.9% 10 Ml Flush Syringe IV PRN PRN LINE FLUSH Zolpidem Tartrate 5 mg 02/24/21 09:54 04/14/21 21:27 Zolpidem 5 Mg Tab PO 5 mg QHS PRN Administration Sleep
[2021-04-18] MEDS: INSULIN GLARGINE 100 UNITS/ML SUB-Q SCH (23:14)
[2021-04-19] MEDS: LACTULOSE 20 GM/30 ML ORAL LIQD PO SCH ×4 (06:39→23:59)
--- NOTE | 2021-04-19 08:17 | Progress Note ---
Assessment and Plan Assessment and plan: -- Hepatic encephalopathy due to hepatic cirrhosis cont lactulose, Neuro check, seizure precaution, aspiration precaution, fall precautions, continue to monitor. -- End stage renal disease Nephrology team consulted, strict I's/O, monitor urine output every shift, dialysis as per renal team, avoid nephrotoxic agents. --Metabolic Acidosis Nephrology team consulted, dialysis as per renal team. --Hyponatremia Monitor BMP, monitor fluid balance. -- Hyperammonemia Continue lactulose --Diabetes mellitus with hyperglycemia Consistent carb diet, SSI -- hyperkalemia, Improvement with dialysis --Ascitis, s/p paracentesis drained 6.2l of ascitic fluid --Sacral wound, cont wound care -- Moderate Protein Calorie Malnutrition, nutrition consulted --Noncompliance, counseled for medication compliance -- Thrombocytopenia --DVT Px, SCD --DNR code status --Disposition: needs placement, CM waiting for placement -- Hepatic encephalopathy -Patient alert and oriented x3. due to hepatic cirrhosis has resolved cont lactulose, Neuro check, seizure precaution, aspiration precaution, fall precautions, continue to monitor. -Diarrhea resolved was secondary to lactulose. Patient is alert no enceph alopathy. -- End stage renal disease Nephrology team consulted, strict I's/O, monitor urine output every shift, dialysis as per renal team, avoid nephrotoxic agents. Await dialysis center. Still no dialysis center. We will dialyze as indicated. --Metabolic Acidosis Nephrology team consulted, dialysis as per renal team. --Hyponatremia Monitor BMP, monitor fluid balance.-Does not require to be checked today we will check every other day now. -- Hyperammonemia Continue lactulose --Pruritus Add Atarax most likely secondary to liver failure --Diabetes mellitus with hyperglycemia Consistent carb diet, SSI -- hyperkalemia, Improvement with dialysis --Ascites, s/p paracentesis drained 6.2l of ascitic fluid -no further ascites at this time. --Sacral wound, pain control continue local wound care. -- Moderate Protein Calorie Malnutrition, nutrition consulted --Noncompliance, counseled for medication compliance --Depression discussed about depression and initiation of Zoloft Waiting for transfer to [facility] 02/19: Resume dialysis will adjust insulin for better coverage. Very poor prognosis considering poor medical compliance. Agree with hospice recommendation. Will obtain wound care to continue to manage. Monitor anemia as patient was pretty anemic during the last hospitalization. Required transfusion. 02/20: Continues to undergo dialysis no change in mental status noted. Tolerating medications. Blood sugar mildly elevated adjusted insulin yesterday when awake for the patient received a dose today and if still elevated will adjust. Again case management is working on discharge plan for this patient as he is pending placement 02/21 patient complains of right hip pain. He said he fell few weeks ago and is concerned about another fracture. He had a fracture about 8 weeks ago and had surgery. Will obtain X ray right hip. Patient pending placement. 02/22 Patient seen in Dialysis Unit. He states hip pain improved. No other complaints. Right hip X ray done yesterday report read may be healing fracture or acute fracture. Will discuss with Orthopedic Surgeon Patient pending placement 02/23 Less hip pain. Today complains of generalized itching. Will start Benadryl po prn. Orthopedic consulted to evaluate right hip. Patient pending placement 02/24 Less hip pain. Generalized itching now resolved. Orthopedic consulted to evaluate right hip. He complains of sleeplessness. Will give Ambien prn Patient pending placement 02/25 Patient requested DNR status yesterday. I discussed with him and he signed forms. He also complains of worsening abdominal distension and requested tapping, Will order paracentesis. Right hip evaluated by Dr. Trivedi and conservative management recommended. 02/26: Plan for paracentesis today. Need to set up dialysis as outpatient. wind energy project manager working on discharge planning. 02/27: Patient did not sign the consent for paracentesis yesterday so paracentesis was done today and aspirated 6.2L ascitic fluid. Patient refusing medication per RN. Getting dialysis. Patient noted slightly altered today, will place NG tube remains altered and keep refusing oral meds, order for ammonia level and will cont lactulose. 02/28: Patient appears much more calm and cooperative today. He stated that he has been refusing procedure and medication as he believes he was not in the right state of his mind. Patient acknowledges the importance of being compliant and he promises that he will take the medications as he will be given. Discharge planning per case management as patient would need outpatient dialysis center set up and personal group home set up. 03/01/21: Patient has penitentiary setting but according to community case manager no available RN to accept the patient till Thursday. Continue supportive care. Discharge pending on placement. 03/02/21 -03/04/21: Discharge pending on placement, continue to monitor clinically. Continue current management and plan and supportive care. Patient need SNF placement. 03/05/2021; Awaiting SNF placement for discharge. Prognosis is very poor. Patient is nonresponsive. I try to reach to his son over the phone but could not get in touch. Patient is appropriate for hospice care. 03/06/2021; patient is awaiting SNF placement. Patient was alert and oriented. No confusion. Patient is stable to be discharged back to SNF. 03/07/2021; patient has hemoglobin of 6.8 this morning. A unit of blood ordered. Will monitor H&H. Nephrology is following for dialysis. 03/08/2021; patient's hemoglobin was 6.8 yesterday and transfused a unit of blood. I ordered yesterday to do posttransfusion H&H and was not done. CBC was ordered to be done this morning but was not done. COVID-19 test was done on 03/06 and positive. Nephrology is following the patient for his dialysis. Plan is to discharge him to SNF. Will follow with case management because patient is Covid positive. 03/09/2021; patient's repeat Covid test on 03/08/2021 was positive. Patient is pending for SNF Placement. Patient had hypoglycemia yesterday and patient was placed on Lantus and his sliding scale adjusted to high dose. Will monitor and adjust as needed. 03/10/2021; pending SNF placement. Covid test was positive on and . 03/11/2021; patient has hepatic encephalopathy and his ammonia level is very high , patient is currently on lactulose and rifaximin. Ammonia level is trending down. Nephrology is following for dialysis. Patient has positive Covid test last one was on 03/08, that makes placement difficult. Continue with case management. 03/12: Still awaiting placement, discussed with nursing staff to monitor mental status changes. Will check ammonia level. Continue to adjust blood sugar. C omplicated by COVID POSITIVELY. Awaiting placement for the patient. Also dialysis chair time. I have discussed with case management as my understanding was that patient was to go for hospice but this plan appears to have changed possibly not clear to me at this time 03/13: Continue supportive care crush medications that can be crushed. Ammonia level is elevated but not as elevated as previously. Continue lactulose advised nursing staff that this should be given as ordered to communicate with the night team also. Unfortunately when the patient gets better he refuses his lactulose. I truly believe that we should strongly consider palliative care for this patient but nevertheless if he wants to continue dialysis and will be compliant with his medications this is definitely an option can be pursued. Aspiration precautions monitor hemoglobin and platelets. 03/14: Patient seen and examined, more awake today. Continue supportive care, patient was made DNR wade, signed the form today after confirming the patient and also the physician. Monitor for fever. AWAITING PLACEMENT. poor prognosis 03/15/21 Patient is seen and examined. Lab and medication reviewed. Patient denied any chest pain or shortness of breath. Patient is more awake alert today. Patient is getting them hemodialysis today. Continue current management. Awaiting placement. 03/16/21 patient seen and examined. Lab and medication reviewed. Patient feels better. Hemoglobin 8.2 and hematocrit 23.9. Complained of pain in the butt. No other complain. Continue current management and supportive care. Patient is waiting for placement. 03/17: Patient remains with poor prognosis refusing dietary intake. Again discussed hospice and palliative care management considering his current medical condition and declining poor prognostic factors. Discussed with nursing staff patient will continue with lactulose had refused this morning but did take it yesterday. Continue aspiration precautions. Discussed the importance of taking the medication the patient verbalized understanding 03/18: Patient undergoing HD discharge planning ongoing discussed with case management team. Covid test ordered today for placement purposes. 03/19/2021; Covid test was ordered and result is pending. Pending placement. 03/20/2021; patient's Covid test was positive again on 03/20/2021. Pending placement. 03/21/2021. Patient cooperative no acute distress at this time. Complains of loose stool diarrhea. Still awaiting placement. Unable to find hemodialysis placement 03/22/2021. Patient last Covid test was positive however initial test was greater than 14 days ago. Patient is no longer infected. Unable to find hemodialysis line at present. Patient being [facility] for [facility]. 03/23/2021. Patient continues to state he feels good much better at this time. Resting comfortably. No distress noted. Still awaiting hemodialysis center. 03/24/2021 patient with flat mood discussed about depression. Resting comfortably watching TV. 03/25/2021. Patient denies depression at this time. Complains of itching all over. When am i getting out of here 03/26/2021. Case management reports patient is still awaiting hemodialysis placement 03/27/2021. Case management reports patient is still awaiting hemodialysis placement. Patient is on maintenance hemodialysis three times a week, MWF schedule. Cont. Lactulose and Rifaximin. Epogen with HD. 03/28/2021. Case management reports patient is still awaiting hemodialysis placement. 03/29/2021. Plan is for the patient to go to [facility] and awaiting on hemodialysis arrangements. [facility] and does not have a bed available. Covid test ordered. We will continue to follow up with case management on discharge planning. 03/30/2021. No new developments. Await hemodialysis placement and potential transfer to [facility]. 03/31/2021. No new developments. Await hemodialysis placement and potential transfer to [facility]. 04/03/2021 Waiting for transfer to [facility] facility 04/04/2021 Waiting for transfer to [facility] facility 04/05/2021 Undergoing hemodialysis during making examination Waiting for placement 04/06/2021 Waiting for placement 04/07/2021 Waiting for placement 04/08/2021 Waiting for placement 04/09: Patient seen and examined a little bit lethargic otherwise no new changes. Awaiting placement noted thrombocytopenia continue to monitor. Discussed with case management and Nursing staff. 04/10: Thrombocytopenia persist, continue to monitor. Still with lethargy. Continue to monitor, Aspiration precautions. Continue with HD 04/11: Discussed with case management patient may possibly have a HD time today and will be able to be discharged unfortunately I think patient has a really poor prognosis considering his liver failure and my recommendation remains for hospice management to be considered outpatient. Patient however wants to continue dialysis. We will continue lactulose. 04/12: Today admitted with hyperkalemia expect correction with dialysis. We will recheck BMP in a.m.. Discussed with nursing staff will continue lactulose at this time. Awaiting placement. Poor prognosis 04/13: m continues with very poor prognosis considering overall clinical condition. Family will had a discussion with case management about hospice. Case management working on this while we will continue to work on other discharge plans. 04/14: Tolerating tube feeds awaiting placement and possible hospice placement. 04/15: Brief summary: 55 YO Male with ESRD on HD, Noncompliance with outpatient dialysis, Anemia, HBV, Chronic Liver Disease, Cirrhosis complicated by Esophageal Varices, HTN, Debility, DM presents to ED with confusion with diminished cognition. Patient family report the patient was "not acting like himself" and found to have worsening confusion over the past 2 days. In the ER the patient was found to have hepatic encephalopathy complicated by diminished cognition, end-stage renal disease in need of urgent dialysis, as well as uncontrolled diabetes, and acidosis. Nephrology team consulted in ED and patient was then admitted for further evaluation and Mx. He has been in the hospital for about 55 days continues to go on dialysis. Repeat Covid test has always come back positive although he is not requiring oxygen. He does have intermittent confusion and does not seem to have any good prognosis considering his alcoholic hepatitis. Continue to encourage nurses to give him his lactulose. He is awaiting hospice decision. 04/16; Awaiting hospice decision. Discussed with case management and she told me to send referral to different hospice facilities. 04/17; awaiting acceptance by hospice facilities. Patient had positive Covid test multiple times. 09/18; pending hospice placement. 09/19; awaiting hospice placement. Patient does not have any family member to take him. History Interval history: Patient was seen and evaluated this morning Patient doesn't have new complaints Hospitalist Physical - Physical exam Narrative exam: Not in cardiopulmonary distress. The patient appeared well nourished and normally developed. Vital signs as documented. Head exam is unremarkable. No scleral icterus . Neck is without jugular venous distension, thyromegaly, or carotid bruits. Lungs are clear to auscultation. Cardiac exam reveals regular rate and Rhythm. Abdominal exam reveals normal bowel sounds, nontender, no organomegaly. Extremities right BKA. ALGEBRA TEACHER: Patient was alert and oriented. Sacral decubitus ulcer. - Constitutional Vitals: Temp Pulse Resp BP Pulse Ox 98.5 F 82 18 102/47 100 04/19/21 03:27 04/19/21 03:27 04/19/21 03:27 04/19/21 03:27 04/19/21 03:27 General appearance: Present: no acute distress, well-nourished Results - Labs CBC & Chem 7: 04/12/21 06:54 04/12/21 06:54 Labs: Laboratory Last Values WBC 3.5 K/mm3 (4.5-11.0) L 04/12/21 06:54 RBC 2.71 M/mm3 (3.65-5.03) L 04/12/21 06:54 Hgb 8.3 gm/dl (11.8-15.2) L 04/12/21 06:54 Hct 25.1 % (35.5-45.6) L 04/12/21 06:54 MCV 93 fl (84-94) 04/12/21 06:54 MCH 31 pg (28-32) 04/12/21 06:54 MCHC 33 % (32-34) 04/12/21 06:54 RDW 20.1 % (13.2-15.2) H 04/12/21 06:54 Plt Count 105 K/mm3 (140-440) L 04/12/21 06:54 Lymph % (Auto) 18.6 % (13.4-35.0) 04/05/21 07:46 Robertson % (Auto) 12.6 % (0.0-7.3) H 04/05/21 07:46 Eos % (Auto) 3.4 % (0.0-4.3) 04/05/21 07:46 Baso % (Auto) 1.0 % (0.0-1.8) 04/05/21 07:46 Lymph # (Auto) 0.7 K/mm3 (1.2-5.4) L 04/05/21 07:46 Robertson # (Auto) 0.5 K/mm3 (0.0-0.8) 04/05/21 07:46 Eos # (Auto) 0.1 K/mm3 (0.0-0.4) 04/05/21 07:46 Baso # (Auto) 0.0 K/mm3 (0.0-0.1) 04/05/21 07:46 Add Manual Diff Complete 03/07/21 05:23 Total Counted 100 03/07/21 05:23 Seg Neutrophils % 64.4 % (40.0-70.0) 04/05/21 07:46 Seg Neuts % (Manual) 78.0 % (40.0-70.0) H 03/07/21 05:23 Lymphocytes % (Manual) 13.0 % (13.4-35.0) L 03/07/21 05:23 Monocytes % (Manual) 9.0 % (0.0-7.3) H 03/07/21 05:23 Nucleated RBC % Not Reportable 03/07/21 05:23 Seg Neutrophils # 2.3 K/mm3 (1.8-7.7) 04/05/21 07:46 Seg Neutrophils # Man 2.0 K/mm3 (1.8-7.7) 03/07/21 05:23 Band Neutrophils # 0.0 K/mm3 03/07/21 05:23 Lymphocytes # (Manual) 0.3 K/mm3 (1.2-5.4) L 03/07/21 05:23 Abs React Lymphs (Man) 0.0 K/mm3 03/07/21 05:23 Monocytes # (Manual) 0.2 K/mm3 (0.0-0.8) 03/07/21 05:23 Eosinophils # (Manual) 0.0 K/mm3 (0.0-0.4) 03/07/21 05:23 Basophils # (Manual) 0.0 K/mm3 (0.0-0.1) 03/07/21 05:23 Metamyelocytes # 0.0 K/mm3 03/07/21 05:23 Myelocytes # 0.0 K/mm3 03/07/21 05:23 Promyelocytes # 0.0 K/mm3 03/07/21 05:23 Blast Cells # 0.0 K/mm3 03/07/21 05:23 WBC Morphology Not Reportable 03/07/21 05:23 Hypersegmented Neuts Not Reportable 03/07/21 05:23 Hyposegmented Neuts Not Reportable 03/07/21 05:23 Hypogranular Neuts Not Reportable 03/07/21 05:23 Smudge Cells Not Reportable 03/07/21 05:23 Toxic Granulation Not Reportable 03/07/21 05:23 Toxic Vacuolation Not Reportable 03/07/21 05:23 Dohle Bodies Not Reportable 03/07/21 05:23 Pelger-Huet Anomaly Not Reportable 03/07/21 05:23 Cosme Rods Not Reportable 03/07/21 05:23 Platelet Estimate Consistent w auto 03/07/21 05:23 Clumped Platelets Not Reportable 03/07/21 05:23 Plt Clumps, EDTA Not Reportable 03/07/21 05:23 Large Platelets Not Reportable 03/07/21 05:23 Giant Platelets Not Reportable 03/07/21 05:23 Platelet Satelliting Not Reportable 03/07/21 05:23 Plt Morphology Comment Not Reportable 03/07/21 05:23 RBC Morphology Not Reportable 03/07/21 05:23 Dimorphic RBCs Not Reportable 03/07/21 05:23 Polychromasia Not Reportable 03/07/21 05:23 Hypochromasia Not Reportable 03/07/21 05:23 Poikilocytosis Not Reportable 03/07/21 05:23 Anisocytosis Few 03/07/21 05:23 Microcytosis Not Reportable 03/07/21 05:23 Macrocytosis Not Reportable 03/07/21 05:23 Spherocytes Not Reportable 03/07/21 05:23 Pappenheimer Bodies Not Reportable 03/07/21 05:23 Sickle Cells Not Reportable 03/07/21 05:23 Target Cells Not Reportable 03/07/21 05:23 Tear Drop Cells Not Reportable 03/07/21 05:23 Ovalocytes Not Reportable 03/07/21 05:23 Helmet Cells Not Reportable 03/07/21 05:23 Mercado-Coco Bodies Not Reportable 03/07/21 05:23 [place] Rings Not Reportable 03/07/21 05:23 Brinson Cells Not Reportable 03/07/21 05:23 Bite Cells Not Reportable 03/07/21 05:23 Crenated Cell Not Reportable 03/07/21 05:23 Elliptocytes Not Reportable 03/07/21 05:23 Acanthocytes (Spur) Not Reportable 03/07/21 05:23 Rouleaux Not Reportable 03/07/21 05:23 Hemoglobin C Crystals Not Reportable 03/07/21 05:23 Schistocytes Not Reportable 03/07/21 05:23 Malaria parasites Not Reportable 03/07/21 05:23 Samir Bodies Not Reportable 03/07/21 05:23 Hem Pathologist Commnt No 03/07/21 05:23 PT 13.7 Sec. (12.2-14.9) 02/26/21 04:33 INR 1.00 (0.87-1.13) 02/26/21 04:33 Sodium 138 mmol/L (137-145) 04/12/21 06:54 Potassium 5.2 mmol/L (3.6-5.0) H D 04/12/21 06:54 Chloride 98.6 mmol/L (98-107) 04/12/21 06:54 Carbon Dioxide 30 mmol/L (22-30) 04/12/21 06:54 Anion Gap 15 mmol/L 04/12/21 06:54 BUN 62 mg/dL (9-20) H 04/12/21 06:54 Creatinine 7.0 mg/dL (0.8-1.3) H 04/12/21 06:54 Estimated GFR 8 ml/min 04/12/21 06:54 BUN/Creatinine Ratio 9 % 04/12/21 06:54 Glucose 107 mg/dL (75-100) H 04/12/21 06:54 POC Glucose 327 mg/dL (70-105) H 04/19/21 07:43 Hemoglobin A1c 7.4 % (4-6) H 02/26/21 04:33 Calcium 9.4 mg/dL (8.4-10.2) 04/12/21 06:54 Phosphorus 3.40 mg/dL (2.5-4.5) 04/03/21 07:30 Magnesium 2.10 mg/dL (1.7-2.3) 02/17/21 02:24 Iron 52 ug/dL (49-181) 03/30/21 05:11 TIBC 203 mcg/dL (250-450) L 03/30/21 05:11 Ferritin 70.9 ng/mL (30.0-300.0) 03/30/21 05:11 Total Bilirubin 0.60 mg/dL (0.1-1.2) 04/05/21 07:46 Direct Bilirubin 0.3 mg/dL (0-0.2) H 03/14/21 07:24 Indirect Bilirubin 0.3 mg/dL 03/14/21 07:24 AST 34 units/L (5-40) 04/05/21 07:46 ALT 23 units/L (7-56) 04/05/21 07:46 Alkaline Phosphatase 183 units/L (35-129) H 04/05/21 07:46 Ammonia 68.0 umol/L (25-60) H 04/05/21 07:46 Total Creatine Kinase 86 units/L (55-170) 02/17/21 02:24 Total Protein 5.8 g/dL (6.3-8.2) L 04/05/21 07:46 Albumin 2.5 g/dL (3.9-5) L 04/05/21 07:46 Albumin/Globulin Ratio 0.8 % 04/05/21 07:46 Vitamin B12 1583 pg/mL (211-911) H 03/30/21 05:11 Folate 10.11 ng/mL (7.3-26.0) 03/30/21 05:11 TSH 0.986 mlU/mL (0.270-4.200) 02/17/21 02:24 Urine Color Yellow (Yellow) 02/17/21 Unknown Urine Turbidity Clear (Clear) 02/17/21 Unknown Urine pH 6.0 (5.0-7.0) 02/17/21 Unknown Ur Specific Juliette 1.012 (1.003-1.030) 02/17/21 Unknown Urine Protein 100 mg/dl mg/dL (Negative) 02/17/21 Unknown Urine Glucose (UA) >=500 mg/dL (Negative) 02/17/21 Unknown Urine Ketones Neg mg/dL (Negative) 02/17/21 Unknown Urine Blood Neg (Negative) 02/17/21 Unknown Urine Nitrite Neg (Negative) 02/17/21 Unknown Urine Bilirubin Neg (Negative) 02/17/21 Unknown Urine Urobilinogen < 2.0 mg/dL (<2.0) 02/17/21 Unknown Ur Leukocyte Esterase Neg (Negative) 02/17/21 Unknown Urine WBC (Auto) 2.0 /HPF (0.0-6.0) 02/17/21 Unknown Urine RBC (Auto) 2.0 /HPF (0.0-6.0) 02/17/21 Unknown U Epithel Cells (Auto) < 1.0 /HPF (0-13.0) 02/17/21 Unknown Urine Bacteria (Auto) 1+ /HPF (Negative) 02/17/21 Unknown Salicylates < 0.3 mg/dL (2.8-20.0) L 02/17/21 02:24 Acetaminophen 5.0 ug/mL (10.0-30.0) L 02/17/21 02:24 Coronavirus (PCR) Positive (Negative) A 04/10/21 Unknown Hepatitis A IgM Ab Non-reactive (NonReactive) 02/28/21 12:37 Hep Bs Antigen Non-reactive (Negative) 03/28/21 18:57 Hep B Core IgM Ab Non-reactive (NonReactive) 02/28/21 12:37 Hepatitis C Antibody Non-reactive (NonReactive) 02/28/21 12:37 Blood Type A POSITIVE 03/07/21 06:31 Antibody Screen Negative 03/07/21 06:31 Crossmatch See Detail 03/07/21 06:31 Sr/IV: Voiding Method Diaper Active Medications - Current Medications Current Medications: Generic Name Dose Route Start Last Admin Trade Name Freq PRN Reason Stop Dose Admin Acetaminophen 650 mg 02/18/21 22:38 03/09/21 13:15 Acetaminophen 325 Mg Tab PO 650 mg Q4H PRN Administration Pain MILD(1-3)/Fever >100.5/MOLINA Albuterol 2.5 mg 02/18/21 22:38 Albuterol 2.5 Mg/3 Ml Nebu IH Q3HRT PRN Shortness Of Breath Allopurinol 100 mg 02/20/21 10:00 04/18/21 09:12 Allopurinol 100 Mg Tab PO 100 mg QDAY LEYLA Administration Calcium Acetate 1,334 mg 02/20/21 08:30 04/18/21 18:08 Calcium Acetate 667 Mg Cap PO 1,334 mg TIDWM LEYLA Administration Dextrose 50 ml 03/29/21 12:00 Dextrose 50% In Water (25gm) 50 Ml Syringe IV Q30MIN PRN HYPOGLYCEMIA Protocol Diphenhydramine HCl 25 mg 02/23/21 09:10 03/24/21 09:01 Diphenhydramine 25 Mg Cap PO 25 mg BID PRN Administration Itching Famotidine 20 mg 02/19/21 10:00 04/18/21 09:12 Famotidine 20 Mg Tab PO 20 mg QAM LEYLA Administration Hydralazine HCl 10 mg 02/18/21 22:56 Hydralazine 20 Mg/1 Ml Inj IV Q6H PRN htn Hydroxyzine HCl 25 mg 03/24/21 10:38 Hydroxyzine Hcl 25 Mg Tab PO Q6H PRN Itching Sodium Chloride 100 mls @ 999 mls/hr 02/19/21 09:06 Nacl 0.9% IV OLIVIA PRN Hypotension Insulin Glargine 16 units 03/23/21 09:00 04/18/21 23:14 Insulin Glargine 100 Units/Ml SUB-Q 16 units QHS LEYLA Administration Insulin Human Lispro 0 unit 03/09/21 22:00 04/18/21 23:14 Insulin Lispro 100 Unit/Ml SUB-Q 4 unit ACHS LEYLA Administration Protocol Lactulose 20 gm 03/09/21 18:00 04/19/21 06:39 Lactulose 20 Gm/30 Ml Oral Liqd PO 20 gm Q6HR LEYLA Administration Ondansetron HCl 4 mg 02/18/21 22:38 02/28/21 12:32 Ondansetron 4 Mg/2 Ml Inj IV 4 mg Q8H PRN Administration Nausea And Vomiting Polyethylene Glycol 17 gm 02/24/21 12:08 02/24/21 12:47 Polyethylene Glycol 3350 17 Gm Powder PO 17 gm QDAY PRN Administration Constipation Propranolol HCl 20 mg 02/20/21 10:00 04/18/21 23:14 Propranolol 10 Mg Tab PO 20 mg BID LEYLA Administration Rifaximin 550 mg 03/10/21 12:00 04/18/21 23:14 Rifaximin 550 Mg Tab PO 550 mg BID LEYLA Administration Sodium Chloride 10 ml 02/19/21 10:00 04/18/21 09:12 Sodium Chloride 0.9% 10 Ml Flush Syringe IV Not Given BID LEYLA Sodium Chloride 10 ml 02/18/21 22:38 Sodium Chloride 0.9% 10 Ml Flush Syringe IV PRN PRN LINE FLUSH Zolpidem Tartrate 5 mg 02/24/21 09:54 04/14/21 21:27 Zolpidem 5 Mg Tab PO 5 mg QHS PRN Administration Sleep Nutrition/Malnutrition Assess - Dietary Evaluation Nutrition/Malnutrition Findings: Nutrition Notes Start: 02/19/21 10:48 Freq: Status: Active Protocol: Document 04/12/21 11:23 (Rec: 04/12/21 11:25 [id number]) Nutrition Notes Initial or Follow up Reassessment Current Diagnosis CKD (stage V CKD),Diabetes Other Pertinent Diagnosis COVID-19 (+), hepatic encephalopathy, ascites Current Diet Renal/Consistent CHO + Nepro once daily Labs/Tests K 2.6 BUN 62 Cr 7 Pertinent Medications Phoslo Height 5 ft 11 in Weight 71.3 kg [place] Body Weight (kg) 78.18 BMI 21.9 Weight Status Appropriate Subjective/Other Information FU for intakes. Pt did not answer phone x2. Pt eating 100 % of meals, per chart. Percent of energy/protein needs met: 100%/100% Burn Absent Trauma Absent Current % PO Good (75-100%) Minimum of two criteria Yes Body Fat Depletion Mild depletion (non-severe) Fluid Accumulation Mild (non-severe) #2 Nutrition Diagnosis Increased nutrient needs ( specify in comment below) Diagnosis Progress(for reassessment Continues documentation) #1 Nutrition Diagnosis Malnutrition Diagnosis Progress(for reassessment Continues documentation) Is patient on ventilator? No Is Patient Ambulatory and/or Out of Bed No REE-([place]. Jeor-confined to bed) 7911.872 Calculation Used for Recommendations [place] or Additional Notes Pro needs >1.2g/kg/day Fluid needs 1-1.5L/day Nutrition Intervention Change Diet Order: Continue current Add Supplement/Snack (indicate name/kcal Nepro daily /protein ) Provides kCal: 425 Provides Protein (gm) 19 Goal #1 PO intake of meals plus ONS to meet at least 75% energy and pro needs Goal #2 Wound healing Follow-Up By: 04/19/21 Additional Comments FU for stable intakes and ONS tolerance
[2021-04-19] MEDS: INSULIN LISPRO 100 UNIT/ML SUB-Q SCH ×4 (08:44→23:59)
[2021-04-19] MEDS: CALCIUM ACETATE 667 MG CAP PO SCH ×3 (08:52→18:27)
[2021-04-19] MEDS: RIFAXIMIN 550 MG TAB PO SCH ×2 (08:59→22:23)
[2021-04-19] MEDS: allopurinoL 100 MG TAB PO SCH (08:59)
[2021-04-19] MEDS: FAMOTIDINE 20 MG TAB PO SCH (08:59)
[2021-04-19] MEDS: PROPRANOLOL 10 MG TAB PO SCH ×2 (09:00→22:23)
--- NOTE | 2021-04-19 13:21 | Progress Note ---
Assessment and Plan 1. ESRD: Patient is on maintenance hemodialysis three times a week, MWF schedule. Meds dosage based on GFR. Hemodialysis: 02/19, 02/20, 02/22, 02/25, 02/27, 03/01, 03/04, 03/06, 03/08, 03/11, 03/13, 03/15, 03/18, 03/20, 03/22, 03/25, 03/27, 03/29, 04/01, 04/03, 04/05, 04/08, 04/10, 04/12, 04/15, 04/17. 2. FEN: Monitor lytes and volume status. 3. Anemia, POA: 2/2 ESRD and Liver disease. Epogen with HD. IV Iron 125 mg 04/05. PRBC as needed. 4. Cirrhosis with h/o hepatic encephalopathy: Lactulose and Rifaximin. S/p paracentesis 02/27. Monitor. 5. DM type 2: SSI. Monitor. 6. Thrombocytopenia, POA. 7. COVID infection: Isolation precautions. Await placement. Subjective: Patient was seen and examined at the bedside. General Appearance: General appearance: well-developed, appears stated age, not in distress HEENT: ATNC, pupils equal Neck: trachea midline Respiratory: ctab Heart: regular, S1S2, no murmur Abdomen: soft, bowel sounds heard, distended, not tender Integumentary: no rash, warm and dry Neurologic: lethargic, not following any command Ext: no edema, R BKA Hemodialysis access: R arm AVF Subjective Date of service: 04/19/21 Principal diagnosis: Acute encephalopathy Objective - Vital Signs Vital signs: Vital Signs - 12hr 04/19/21 04/19/21 03:27 09:00 Temperature 98.5 F Pulse Rate 82 82 Respiratory 18 Rate Blood Pressure 102/47 102/47 O2 Sat by Pulse 100 Oximetry - Lab 04/12/21 06:54 04/12/21 06:54 Most recent lab results Calcium 9.4 mg/dL (8.4-10.2) 04/12/21 06:54 Phosphorus 3.40 mg/dL (2.5-4.5) 04/03/21 07:30 Magnesium 2.10 mg/dL (1.7-2.3) 02/17/21 02:24 Medications & Allergies - Medications Allergies/Adverse Reactions: Allergies No Known Allergies Allergy (Verified 02/16/21 18:26) Home Medications: Home Medications Medication Instructions Recorded Confirmed Last Taken Type Calcium Acetate [Phoslo] 1,334 mg PO TIDWM #90 capsule 03/01/21 Unknown Rx Famotidine [Pepcid] 20 mg PO QAM #30 tablet 03/01/21 Unknown Rx Lactulose [Cephulac] 20 gm PO Q8HR 30 Days 03/01/21 Unknown Rx Lispro Insulin [HumaLOG] See Protocol SQ ACHS 30 Days 03/01/21 Unknown Rx allopurinoL [Zyloprim] 100 mg PO QDAY #30 tablet 03/01/21 Unknown Rx propranoloL [Inderal] 20 mg PO BID #60 tablet 03/01/21 Unknown Rx Active Medications: Generic Name Dose Route Start Last Admin Trade Name Freq PRN Reason Stop Dose Admin Acetaminophen 650 mg 02/18/21 22:38 03/09/21 13:15 Acetaminophen 325 Mg Tab PO 650 mg Q4H PRN Administration Pain MILD(1-3)/Fever >100.5/MOLINA Albuterol 2.5 mg 02/18/21 22:38 Albuterol 2.5 Mg/3 Ml Nebu IH Q3HRT PRN Shortness Of Breath Allopurinol 100 mg 02/20/21 10:00 04/19/21 08:59 Allopurinol 100 Mg Tab PO 100 mg QDAY LEYLA Administration Calcium Acetate 1,334 mg 02/20/21 08:30 04/19/21 13:10 Calcium Acetate 667 Mg Cap PO Not Given TIDWM LEYLA Dextrose 50 ml 03/29/21 12:00 Dextrose 50% In Water (25gm) 50 Ml Syringe IV Q30MIN PRN HYPOGLYCEMIA Protocol Diphenhydramine HCl 25 mg 02/23/21 09:10 03/24/21 09:01 Diphenhydramine 25 Mg Cap PO 25 mg BID PRN Administration Itching Famotidine 20 mg 02/19/21 10:00 04/19/21 08:59 Famotidine 20 Mg Tab PO 20 mg QAM LEYLA Administration Hydralazine HCl 10 mg 02/18/21 22:56 Hydralazine 20 Mg/1 Ml Inj IV Q6H PRN htn Hydroxyzine HCl 25 mg 03/24/21 10:38 Hydroxyzine Hcl 25 Mg Tab PO Q6H PRN Itching Sodium Chloride 100 mls @ 999 mls/hr 02/19/21 09:06 Nacl 0.9% IV OLIVIA PRN Hypotension Insulin Glargine 16 units 03/23/21 09:00 04/18/21 23:14 Insulin Glargine 100 Units/Ml SUB-Q 16 units QHS LEYLA Administration Insulin Human Lispro 0 unit 03/09/21 22:00 04/19/21 13:10 Insulin Lispro 100 Unit/Ml SUB-Q 4 unit ACHS LEYLA Administration Protocol Lactulose 20 gm 03/09/21 18:00 04/19/21 13:10 Lactulose 20 Gm/30 Ml Oral Liqd PO Not Given Q6HR [facility] Ondansetron HCl 4 mg 02/18/21 22:38 02/28/21 12:32 Ondansetron 4 Mg/2 Ml Inj IV 4 mg Q8H PRN Administration Nausea And Vomiting Polyethylene Glycol 17 gm 02/24/21 12:08 02/24/21 12:47 Polyethylene Glycol 3350 17 Gm Powder PO 17 gm QDAY PRN Administration Constipation Propranolol HCl 20 mg 02/20/21 10:00 04/19/21 09:00 Propranolol 10 Mg Tab PO Not Given BID LEYLA Rifaximin 550 mg 03/10/21 12:00 04/19/21 08:59 Rifaximin 550 Mg Tab PO 550 mg BID LEYLA Administration Sodium Chloride 10 ml 02/19/21 10:00 04/19/21 08:59 Sodium Chloride 0.9% 10 Ml Flush Syringe IV Not Given BID LEYLA Sodium Chloride 10 ml 02/18/21 22:38 Sodium Chloride 0.9% 10 Ml Flush Syringe IV PRN PRN LINE FLUSH Zolpidem Tartrate 5 mg 02/24/21 09:54 04/14/21 21:27 Zolpidem 5 Mg Tab PO 5 mg QHS PRN Administration Sleep
[2021-04-19] MEDS: INSULIN GLARGINE 100 UNITS/ML SUB-Q SCH (23:59)
[2021-04-20] MEDS: LACTULOSE 20 GM/30 ML ORAL LIQD PO SCH ×4 (06:02→23:35)
[2021-04-20] MEDS ORDERED: SODIUM CHLORIDE 0.9% 100 ML IV PRN (07:52)
[2021-04-20] MEDS: INSULIN LISPRO 100 UNIT/ML SUB-Q SCH ×4 (08:39→23:38)
[2021-04-20] MEDS: CALCIUM ACETATE 667 MG CAP PO SCH ×3 (08:46→16:38)
[2021-04-20] MEDS: PROPRANOLOL 10 MG TAB PO SCH ×2 (09:46→23:35)
[2021-04-20] MEDS: FAMOTIDINE 20 MG TAB PO SCH (09:46)
[2021-04-20] MEDS: RIFAXIMIN 550 MG TAB PO SCH ×2 (09:46→23:35)
[2021-04-20] MEDS: allopurinoL 100 MG TAB PO SCH (09:46)
--- NOTE | 2021-04-20 09:58 | Progress Note ---
Assessment and Plan 1. ESRD: Patient is on maintenance hemodialysis three times a week, MWF schedule. Meds dosage based on GFR. Hemodialysis: 02/19, 02/20, 02/22, 02/25, 02/27, 03/01, 03/04, 03/06, 03/08, 03/11, 03/13, 03/15, 03/18, 03/20, 03/22, 03/25, 03/27, 03/29, 04/01, 04/03, 04/05, 04/08, 04/10, 04/12, 04/15, 04/17. HD today. 2. FEN: Monitor lytes and volume status. 3. Anemia, POA: 2/2 ESRD and Liver disease. Epogen with HD. IV Iron 125 mg 04/05. IV Iron today. PRBC as needed. 4. Cirrhosis with h/o hepatic encephalopathy: Lactulose and Rifaximin. S/p paracentesis 02/27. Monitor. 5. DM type 2: SSI. Monitor. 6. Thrombocytopenia, POA. 7. COVID infection: Isolation precautions. Await placement. Subjective: Patient was seen and examined at the bedside. General Appearance: General appearance: well-developed, appears stated age, not in distress HEENT: ATNC, pupils equal Neck: trachea midline Respiratory: ctab Heart: regular, S1S2, no murmur Abdomen: soft, bowel sounds heard, distended, not tender Integumentary: no rash, warm and dry Neurologic: lethargic, not following any command Ext: no edema, R BKA Hemodialysis access: R arm AVF Subjective Date of service: 04/20/21 Principal diagnosis: Acute encephalopathy Objective - Vital Signs Vital signs: Vital Signs - 12hr 04/19/21 04/20/21 04/20/21 22:26 01:48 06:01 Temperature 98.2 F 97.7 F Pulse Rate 75 76 Respiratory 18 18 Rate Blood Pressure 174/56 137/65 O2 Sat by Pulse 95 100 99 Oximetry 04/20/21 09:46 Temperature Pulse Rate 76 Respiratory Rate Blood Pressure 137/65 O2 Sat by Pulse Oximetry - Lab 04/12/21 06:54 04/12/21 06:54 Most recent lab results Calcium 9.4 mg/dL (8.4-10.2) 04/12/21 06:54 Phosphorus 3.40 mg/dL (2.5-4.5) 04/03/21 07:30 Magnesium 2.10 mg/dL (1.7-2.3) 02/17/21 02:24 Medications & Allergies - Medications Allergies/Adverse Reactions: Allergies No Known Allergies Allergy (Verified 02/16/21 18:26) Home Medications: Home Medications Medication Instructions Recorded Confirmed Last Taken Type Calcium Acetate [Phoslo] 1,334 mg PO TIDWM #90 capsule 03/01/21 Unknown Rx Famotidine [Pepcid] 20 mg PO QAM #30 tablet 03/01/21 Unknown Rx Lactulose [Cephulac] 20 gm PO Q8HR 30 Days 03/01/21 Unknown Rx Lispro Insulin [HumaLOG] See Protocol SQ ACHS 30 Days 03/01/21 Unknown Rx allopurinoL [Zyloprim] 100 mg PO QDAY #30 tablet 03/01/21 Unknown Rx propranoloL [Inderal] 20 mg PO BID #60 tablet 03/01/21 Unknown Rx Active Medications: Generic Name Dose Route Start Last Admin Trade Name Freq PRN Reason Stop Dose Admin Acetaminophen 650 mg 02/18/21 22:38 03/09/21 13:15 Acetaminophen 325 Mg Tab PO 650 mg Q4H PRN Administration Pain MILD(1-3)/Fever >100.5/MOLINA Albuterol 2.5 mg 02/18/21 22:38 Albuterol 2.5 Mg/3 Ml Nebu IH Q3HRT PRN Shortness Of Breath Allopurinol 100 mg 02/20/21 10:00 04/20/21 09:46 Allopurinol 100 Mg Tab PO 100 mg QDAY LEYLA Administration Calcium Acetate 1,334 mg 02/20/21 08:30 04/20/21 08:46 Calcium Acetate 667 Mg Cap PO 1,334 mg TIDWM LEYLA Administration Dextrose 50 ml 03/29/21 12:00 Dextrose 50% In Water (25gm) 50 Ml Syringe IV Q30MIN PRN HYPOGLYCEMIA Protocol Diphenhydramine HCl 25 mg 02/23/21 09:10 03/24/21 09:01 Diphenhydramine 25 Mg Cap PO 25 mg BID PRN Administration Itching Famotidine 20 mg 02/19/21 10:00 04/20/21 09:46 Famotidine 20 Mg Tab PO 20 mg QAM LEYLA Administration Hydralazine HCl 10 mg 02/18/21 22:56 Hydralazine 20 Mg/1 Ml Inj IV Q6H PRN htn Hydroxyzine HCl 25 mg 03/24/21 10:38 Hydroxyzine Hcl 25 Mg Tab PO Q6H PRN Itching Sodium Chloride 100 mls @ 999 mls/hr 02/19/21 09:06 Nacl 0.9% IV OLIVIA PRN Hypotension Sodium Chloride 100 mls @ 999 mls/hr 04/20/21 07:52 Nacl 0.9% IV OLIVIA PRN Hypotension Insulin Glargine 16 units 03/23/21 09:00 04/19/21 23:59 Insulin Glargine 100 Units/Ml SUB-Q 16 units QHS LEYLA Administration Insulin Human Lispro 0 unit 03/09/21 22:00 04/20/21 08:39 Insulin Lispro 100 Unit/Ml SUB-Q 4 unit ACHS LEYLA Administration Protocol Lactulose 20 gm 03/09/21 18:00 04/20/21 06:02 Lactulose 20 Gm/30 Ml Oral Liqd PO 20 gm Q6HR LEYLA Administration Ondansetron HCl 4 mg 02/18/21 22:38 02/28/21 12:32 Ondansetron 4 Mg/2 Ml Inj IV 4 mg Q8H PRN Administration Nausea And Vomiting Polyethylene Glycol 17 gm 02/24/21 12:08 02/24/21 12:47 Polyethylene Glycol 3350 17 Gm Powder PO 17 gm QDAY PRN Administration Constipation Propranolol HCl 20 mg 02/20/21 10:00 04/20/21 09:46 Propranolol 10 Mg Tab PO 20 mg BID LEYLA Administration Rifaximin 550 mg 03/10/21 12:00 04/20/21 09:46 Rifaximin 550 Mg Tab PO 550 mg BID LEYLA Administration Sodium Chloride 10 ml 02/19/21 10:00 04/20/21 09:47 Sodium Chloride 0.9% 10 Ml Flush Syringe IV 10 ml BID LEYLA Administration Sodium Chloride 10 ml 02/18/21 22:38 Sodium Chloride 0.9% 10 Ml Flush Syringe IV PRN PRN LINE FLUSH Zolpidem Tartrate 5 mg 02/24/21 09:54 04/14/21 21:27 Zolpidem 5 Mg Tab PO 5 mg QHS PRN Administration Sleep
--- NOTE | 2021-04-20 12:05 | Progress Note ---
Assessment and Plan - Patient Problems (1) Hepatic encephalopathy Current Visit: No Status: Acute Plan to address problem: Supportive care, Pt is DNR, comfort measures. (2) Acidosis Current Visit: Yes Status: Acute Plan to address problem: Supportive care, dialysis as per renal team. (3) End stage renal disease Current Visit: Yes Status: Acute Plan to address problem: Dialysis as per renal team, strict I's/O, avoid nephrotoxic agents. (4) DVT prophylaxis Current Visit: No Status: Acute Plan to address problem: SCD to bilateral lower extremities while in bed, History Interval history: 55 YO Male with Hepatic Encephalopathy, ESRD, Metabolic Acidosis pending placement/Hospice Care. Pt is DNR at this time. No reported nursing events. Hospitalist Physical - Constitutional Vitals: Temp Pulse Resp BP Pulse Ox 97.7 F 76 18 137/65 99 04/20/21 06:01 04/20/21 09:46 04/20/21 06:01 04/20/21 09:46 04/20/21 06:01 General appearance: Present: no acute distress, well-nourished - EENT Eyes: Present: PERRL - Neck Neck: Present: supple - Respiratory Respiratory: bilateral: diminished - Cardiovascular Rhythm: regular Heart Sounds: Present: S1 & S2 - Extremities Extremities: no ischemia Peripheral Pulses: within normal limits - Abdominal General gastrointestinal: soft, non-tender, non-distended - Integumentary Integumentary: Present: clear, dry - Psychiatric Psychiatric: appropriate mood/affect - Neurologic Neurologic: CNII-XII intact Results - Labs CBC & Chem 7: 04/12/21 06:54 04/12/21 06:54 Labs: Laboratory Last Values WBC 3.5 K/mm3 (4.5-11.0) L 04/12/21 06:54 RBC 2.71 M/mm3 (3.65-5.03) L 04/12/21 06:54 Hgb 8.3 gm/dl (11.8-15.2) L 04/12/21 06:54 Hct 25.1 % (35.5-45.6) L 04/12/21 06:54 MCV 93 fl (84-94) 04/12/21 06:54 MCH 31 pg (28-32) 04/12/21 06:54 MCHC 33 % (32-34) 04/12/21 06:54 RDW 20.1 % (13.2-15.2) H 04/12/21 06:54 Plt Count 105 K/mm3 (140-440) L 04/12/21 06:54 Lymph % (Auto) 18.6 % (13.4-35.0) 04/05/21 07:46 [place] % (Auto) 12.6 % (0.0-7.3) H 04/05/21 07:46 Eos % (Auto) 3.4 % (0.0-4.3) 04/05/21 07:46 Baso % (Auto) 1.0 % (0.0-1.8) 04/05/21 07:46 Lymph # (Auto) 0.7 K/mm3 (1.2-5.4) L 04/05/21 07:46 [place] # (Auto) 0.5 K/mm3 (0.0-0.8) 04/05/21 07:46 Eos # (Auto) 0.1 K/mm3 (0.0-0.4) 04/05/21 07:46 Baso # (Auto) 0.0 K/mm3 (0.0-0.1) 04/05/21 07:46 Add Manual Diff Complete 03/07/21 05:23 Total Counted 100 03/07/21 05:23 Seg Neutrophils % 64.4 % (40.0-70.0) 04/05/21 07:46 Seg Neuts % (Manual) 78.0 % (40.0-70.0) H 03/07/21 05:23 Lymphocytes % (Manual) 13.0 % (13.4-35.0) L 03/07/21 05:23 Monocytes % (Manual) 9.0 % (0.0-7.3) H 03/07/21 05:23 Nucleated RBC % Not Reportable 03/07/21 05:23 Seg Neutrophils # 2.3 K/mm3 (1.8-7.7) 04/05/21 07:46 Seg Neutrophils # Man 2.0 K/mm3 (1.8-7.7) 03/07/21 05:23 Band Neutrophils # 0.0 K/mm3 03/07/21 05:23 Lymphocytes # (Manual) 0.3 K/mm3 (1.2-5.4) L 03/07/21 05:23 Abs React Lymphs (Man) 0.0 K/mm3 03/07/21 05:23 Monocytes # (Manual) 0.2 K/mm3 (0.0-0.8) 03/07/21 05:23 Eosinophils # (Manual) 0.0 K/mm3 (0.0-0.4) 03/07/21 05:23 Basophils # (Manual) 0.0 K/mm3 (0.0-0.1) 03/07/21 05:23 Metamyelocytes # 0.0 K/mm3 03/07/21 05:23 Myelocytes # 0.0 K/mm3 03/07/21 05:23 Promyelocytes # 0.0 K/mm3 03/07/21 05:23 Blast Cells # 0.0 K/mm3 03/07/21 05:23 WBC Morphology Not Reportable 03/07/21 05:23 Hypersegmented Neuts Not Reportable 03/07/21 05:23 Hyposegmented Neuts Not Reportable 03/07/21 05:23 Hypogranular Neuts Not Reportable 03/07/21 05:23 Smudge Cells Not Reportable 03/07/21 05:23 Toxic Granulation Not Reportable 03/07/21 05:23 Toxic Vacuolation Not Reportable 03/07/21 05:23 Dohle Bodies Not Reportable 03/07/21 05:23 Pelger-Huet Anomaly Not Reportable 03/07/21 05:23 Cosme Rods Not Reportable 03/07/21 05:23 Platelet Estimate Consistent w auto 03/07/21 05:23 Clumped Platelets Not Reportable 03/07/21 05:23 Plt Clumps, EDTA Not Reportable 03/07/21 05:23 Large Platelets Not Reportable 03/07/21 05:23 Giant Platelets Not Reportable 03/07/21 05:23 Platelet Satelliting Not Reportable 03/07/21 05:23 Plt Morphology Comment Not Reportable 03/07/21 05:23 RBC Morphology Not Reportable 03/07/21 05:23 Dimorphic RBCs Not Reportable 03/07/21 05:23 Polychromasia Not Reportable 03/07/21 05:23 Hypochromasia Not Reportable 03/07/21 05:23 Poikilocytosis Not Reportable 03/07/21 05:23 Anisocytosis Few 03/07/21 05:23 Microcytosis Not Reportable 03/07/21 05:23 Macrocytosis Not Reportable 03/07/21 05:23 Spherocytes Not Reportable 03/07/21 05:23 Pappenheimer Bodies Not Reportable 03/07/21 05:23 Sickle Cells Not Reportable 03/07/21 05:23 Target Cells Not Reportable 03/07/21 05:23 Tear Drop Cells Not Reportable 03/07/21 05:23 Ovalocytes Not Reportable 03/07/21 05:23 Helmet Cells Not Reportable 03/07/21 05:23 [place] Bodies Not Reportable 03/07/21 05:23 Imperial Rings Not Reportable 03/07/21 05:23 Kathy Cells Not Reportable 03/07/21 05:23 Bite Cells Not Reportable 03/07/21 05:23 Crenated Cell Not Reportable 03/07/21 05:23 Elliptocytes Not Reportable 03/07/21 05:23 Acanthocytes (Spur) Not Reportable 03/07/21 05:23 Rouleaux Not Reportable 03/07/21 05:23 Hemoglobin C Crystals Not Reportable 03/07/21 05:23 Schistocytes Not Reportable 03/07/21 05:23 Malaria parasites Not Reportable 03/07/21 05:23 Samir Bodies Not Reportable 03/07/21 05:23 Hem Pathologist Commnt No 03/07/21 05:23 PT 13.7 Sec. (12.2-14.9) 02/26/21 04:33 INR 1.00 (0.87-1.13) 02/26/21 04:33 Sodium 138 mmol/L (137-145) 04/12/21 06:54 Potassium 5.2 mmol/L (3.6-5.0) H D 04/12/21 06:54 Chloride 98.6 mmol/L (98-107) 04/12/21 06:54 Carbon Dioxide 30 mmol/L (22-30) 04/12/21 06:54 Anion Gap 15 mmol/L 04/12/21 06:54 BUN 62 mg/dL (9-20) H 04/12/21 06:54 Creatinine 7.0 mg/dL (0.8-1.3) H 04/12/21 06:54 Estimated GFR 8 ml/min 04/12/21 06:54 BUN/Creatinine Ratio 9 % 04/12/21 06:54 Glucose 107 mg/dL (75-100) H 04/12/21 06:54 POC Glucose 247 mg/dL (70-105) H 04/20/21 07:32 Hemoglobin A1c 7.4 % (4-6) H 02/26/21 04:33 Calcium 9.4 mg/dL (8.4-10.2) 04/12/21 06:54 Phosphorus 3.40 mg/dL (2.5-4.5) 04/03/21 07:30 Magnesium 2.10 mg/dL (1.7-2.3) 02/17/21 02:24 Iron 52 ug/dL (49-181) 03/30/21 05:11 TIBC 203 mcg/dL (250-450) L 03/30/21 05:11 Ferritin 70.9 ng/mL (30.0-300.0) 03/30/21 05:11 Total Bilirubin 0.60 mg/dL (0.1-1.2) 04/05/21 07:46 Direct Bilirubin 0.3 mg/dL (0-0.2) H 03/14/21 07:24 Indirect Bilirubin 0.3 mg/dL 03/14/21 07:24 AST 34 units/L (5-40) 04/05/21 07:46 ALT 23 units/L (7-56) 04/05/21 07:46 Alkaline Phosphatase 183 units/L (35-129) H 04/05/21 07:46 Ammonia 68.0 umol/L (25-60) H 04/05/21 07:46 Total Creatine Kinase 86 units/L (55-170) 02/17/21 02:24 Total Protein 5.8 g/dL (6.3-8.2) L 04/05/21 07:46 Albumin 2.5 g/dL (3.9-5) L 04/05/21 07:46 Albumin/Globulin Ratio 0.8 % 04/05/21 07:46 Vitamin B12 1583 pg/mL (211-911) H 03/30/21 05:11 Folate 10.11 ng/mL (7.3-26.0) 03/30/21 05:11 TSH 0.986 mlU/mL (0.270-4.200) 02/17/21 02:24 Urine Color Yellow (Yellow) 02/17/21 Unknown Urine Turbidity Clear (Clear) 02/17/21 Unknown Urine pH 6.0 (5.0-7.0) 02/17/21 Unknown Ur Specific [place] 1.012 (1.003-1.030) 02/17/21 Unknown Urine Protein 100 mg/dl mg/dL (Negative) 02/17/21 Unknown Urine Glucose (UA) >=500 mg/dL (Negative) 02/17/21 Unknown Urine Ketones Neg mg/dL (Negative) 02/17/21 Unknown Urine Blood Neg (Negative) 02/17/21 Unknown Urine Nitrite Neg (Negative) 02/17/21 Unknown Urine Bilirubin Neg (Negative) 02/17/21 Unknown Urine Urobilinogen < 2.0 mg/dL (<2.0) 02/17/21 Unknown Ur Leukocyte Esterase Neg (Negative) 02/17/21 Unknown Urine WBC (Auto) 2.0 /HPF (0.0-6.0) 02/17/21 Unknown Urine RBC (Auto) 2.0 /HPF (0.0-6.0) 02/17/21 Unknown U Epithel Cells (Auto) < 1.0 /HPF (0-13.0) 02/17/21 Unknown Urine Bacteria (Auto) 1+ /HPF (Negative) 02/17/21 Unknown Salicylates < 0.3 mg/dL (2.8-20.0) L 02/17/21 02:24 Acetaminophen 5.0 ug/mL (10.0-30.0) L 02/17/21 02:24 Coronavirus (PCR) Positive (Negative) A 04/10/21 Unknown Hepatitis A IgM Ab Non-reactive (NonReactive) 02/28/21 12:37 Hep Bs Antigen Non-reactive (Negative) 03/28/21 18:57 Hep B Core IgM Ab Non-reactive (NonReactive) 02/28/21 12:37 Hepatitis C Antibody Non-reactive (NonReactive) 02/28/21 12:37 Blood Type A POSITIVE 03/07/21 06:31 Antibody Screen Negative 03/07/21 06:31 Crossmatch See Detail 03/07/21 06:31 Sr/IV: Voiding Method Incontinent Active Medications - Current Medications Current Medications: Generic Name Dose Route Start Last Admin Trade Name Freq PRN Reason Stop Dose Admin Acetaminophen 650 mg 02/18/21 22:38 03/09/21 13:15 Acetaminophen 325 Mg Tab PO 650 mg Q4H PRN Administration Pain MILD(1-3)/Fever >100.5/MOLINA Albuterol 2.5 mg 02/18/21 22:38 Albuterol 2.5 Mg/3 Ml Nebu IH Q3HRT PRN Shortness Of Breath Allopurinol 100 mg 02/20/21 10:00 04/20/21 09:46 Allopurinol 100 Mg Tab PO 100 mg QDAY LEYLA Administration Calcium Acetate 1,334 mg 02/20/21 08:30 04/20/21 08:46 Calcium Acetate 667 Mg Cap PO 1,334 mg TIDWM LEYLA Administration Dextrose 50 ml 03/29/21 12:00 Dextrose 50% In Water (25gm) 50 Ml Syringe IV Q30MIN PRN HYPOGLYCEMIA Protocol Diphenhydramine HCl 25 mg 02/23/21 09:10 03/24/21 09:01 Diphenhydramine 25 Mg Cap PO 25 mg BID PRN Administration Itching Famotidine 20 mg 02/19/21 10:00 04/20/21 09:46 Famotidine 20 Mg Tab PO 20 mg QAM LEYLA Administration Hydralazine HCl 10 mg 02/18/21 22:56 Hydralazine 20 Mg/1 Ml Inj IV Q6H PRN htn Hydroxyzine HCl 25 mg 03/24/21 10:38 Hydroxyzine Hcl 25 Mg Tab PO Q6H PRN Itching Sodium Chloride 100 mls @ 999 mls/hr 02/19/21 09:06 Nacl 0.9% IV OLIVIA PRN Hypotension Sodium Chloride 100 mls @ 999 mls/hr 04/20/21 07:52 Nacl 0.9% IV OLIVIA PRN Hypotension Ferric Sodium Gluconate 110 mls @ 100 mls/hr 04/20/21 12:04 Complex 125 mg/ Sodium IV 04/20/21 13:09 Chloride ONCE ONE Insulin Glargine 16 units 03/23/21 09:00 04/19/21 23:59 Insulin Glargine 100 Units/Ml SUB-Q 16 units QHS LEYLA Administration Insulin Human Lispro 0 unit 03/09/21 22:00 04/20/21 08:39 Insulin Lispro 100 Unit/Ml SUB-Q 4 unit ACHS LEYLA Administration Protocol Lactulose 20 gm 03/09/21 18:00 04/20/21 06:02 Lactulose 20 Gm/30 Ml Oral Liqd PO 20 gm Q6HR LEYLA Administration Ondansetron HCl 4 mg 02/18/21 22:38 02/28/21 12:32 Ondansetron 4 Mg/2 Ml Inj IV 4 mg Q8H PRN Administration Nausea And Vomiting Polyethylene Glycol 17 gm 02/24/21 12:08 02/24/21 12:47 Polyethylene Glycol 3350 17 Gm Powder PO 17 gm QDAY PRN Administration Constipation Propranolol HCl 20 mg 02/20/21 10:00 04/20/21 09:46 Propranolol 10 Mg Tab PO 20 mg BID LEYLA Administration Rifaximin 550 mg 03/10/21 12:00 04/20/21 09:46 Rifaximin 550 Mg Tab PO 550 mg BID LEYLA Administration Sodium Chloride 10 ml 02/19/21 10:00 04/20/21 09:47 Sodium Chloride 0.9% 10 Ml Flush Syringe IV 10 ml BID LEYLA Administration Sodium Chloride 10 ml 02/18/21 22:38 Sodium Chloride 0.9% 10 Ml Flush Syringe IV PRN PRN LINE FLUSH Zolpidem Tartrate 5 mg 02/24/21 09:54 04/14/21 21:27 Zolpidem 5 Mg Tab PO 5 mg QHS PRN Administration Sleep Nutrition/Malnutrition Assess - Dietary Evaluation Nutrition/Malnutrition Findings: Nutrition Notes Start: 02/19/21 10:48 Freq: Status: Active Protocol: Document 04/19/21 09:48 (Rec: 04/19/21 09:49 [email or web address]) Nutrition Notes Initial or Follow up Brief Note Current Diagnosis CKD (stage V CKD),Diabetes Other Pertinent Diagnosis COVID-19 (+), hepatic encephalopathy, ascites Current Diet Renal/Consistent CHO + Nepro once daily Subjective/Other Information PT continues to eat 100% of meals. Percent of energy/protein needs met: 100%/100% Current % PO Good (75-100%) Nutrition Intervention Revisit per MD consult or patient Sign Off request:
[2021-04-20] MEDS ORDERED: SODIUM FERRIC GLUCON/SUCRO 125 MG in SODIUM CHLORIDE 0.9% 100 ML IV ONE (13:00)
[2021-04-20] MEDS: INSULIN GLARGINE 100 UNITS/ML SUB-Q SCH (23:36)
[2021-04-21] MEDS: LACTULOSE 20 GM/30 ML ORAL LIQD PO SCH ×4 (06:29→23:20)
[2021-04-21] MEDS: allopurinoL 100 MG TAB PO SCH (10:12)
[2021-04-21] MEDS: RIFAXIMIN 550 MG TAB PO SCH ×2 (10:12→23:17)
[2021-04-21] MEDS: FAMOTIDINE 20 MG TAB PO SCH (10:12)
[2021-04-21] MEDS: PROPRANOLOL 10 MG TAB PO SCH ×2 (10:12→23:17)
[2021-04-21] MEDS: CALCIUM ACETATE 667 MG CAP PO SCH ×3 (10:12→17:21)
[2021-04-21] MEDS: INSULIN LISPRO 100 UNIT/ML SUB-Q SCH ×4 (10:13→23:34)
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
[2021-04-21] MEDS: INSULIN GLARGINE 100 UNITS/ML SUB-Q SCH (23:17)
[2021-04-22] MEDS: LACTULOSE 20 GM/30 ML ORAL LIQD PO SCH ×2 (05:49→15:30)
[2021-04-22] MEDS: INSULIN LISPRO 100 UNIT/ML SUB-Q SCH ×2 (08:35→12:46)
[2021-04-22] MEDS: CALCIUM ACETATE 667 MG CAP PO SCH ×2 (08:36→12:46)
--- NOTE | 2021-04-22 09:54 | Progress Note ---
Assessment and Plan Assessment and plan: 55 YO Male with ESRD on HD, Noncompliance with outpatient dialysis, Anemia, HBV, Chronic Liver Disease, Cirrhosis complicated by Esophageal Varices, HTN, Debility, DM presents to ED with confusion with diminished cognition. Patient family report the patient was "not acting like himself" and found to have worsening confusion over the past 2 days. In the ER the patient was found to have hepatic encephalopathy complicated by diminished cognition, end-stage renal disease in need of urgent dialysis, as well as uncontrolled diabetes, and acidosis. -- Hepatic encephalopathy -Patient alert and oriented x3. due to hepatic cirrhosis has resolved cont lactulose, Neuro check, seizure precaution, aspiration precaution, fall precautions, continue to monitor. -Diarrhea resolved was secondary to lactulose. Patient is alert no encephalopathy. -- End stage renal disease Nephrology team consulted, strict I's/O, monitor urine output every shift, dialysis as per renal team, avoid nephrotoxic agents. Await dialysis center. Still no dialysis center. We will dialyze as indicated. --Metabolic Acidosis Nephrology team consulted, dialysis as per renal team. --Hyponatremia Monitor BMP, monitor fluid balance.-Does not require to be checked today we will check every other day now. -- Hyperammonemia Continue lactulose --Pruritus Add Atarax most likely secondary to liver failure --Diabetes mellitus with hyperglycemia Consistent carb diet, SSI -- hyperkalemia, Improvement with dialysis --Ascites, s/p paracentesis drained 6.2l of ascitic fluid -no further ascites at this time. --Sacral wound, pain control continue local wound care. -- Moderate Protein Calorie Malnutrition, nutrition consulted --Noncompliance, counseled for medication compliance --Depression discussed about depression and initiation of Zoloft /1: Resume dialysis will adjust insulin for better coverage. Very poor prognos is considering poor medical compliance. Agree with hospice recommendation. Will obtain wound care to continue to manage. Monitor anemia as patient was pretty anemic during the last hospitalization. Required transfusion. 02/20: Continues to undergo dialysis no change in mental status noted. Tolerating medications. Blood sugar mildly elevated adjusted insulin yesterday when awake for the patient received a dose today and if still elevated will adjust. Again case management is working on discharge plan for this patient as he is pending placement 02/21 patient complains of right hip pain. He said he fell few weeks ago and is concerned about another fracture. He had a fracture about 8 weeks ago and had surgery. Will obtain X ray right hip. Patient pending placement. 02/22 Patient seen in Dialysis Unit. He states hip pain improved. No other complaints. Right hip X ray done yesterday report read may be healing fracture or acute fracture. Will discuss with Orthopedic Surgeon Patient pending placement 02/23 Less hip pain. Today complains of generalized itching. Will start Benadryl po prn. Orthopedic consulted to evaluate right hip. Patient pending placement 02/24 Less hip pain. Generalized itching now resolved. Orthopedic consulted to evaluate right hip. He complains of sleeplessness. Will give Ambien prn Patient pending placement 02/25 Patient requested DNR status yesterday. I discussed with him and he signed forms. He also complains of worsening abdominal distension and requested tap ping, Will order paracentesis. Right hip evaluated by Dr. Trivedi and conservative management recommended. 02/26: Plan for paracentesis today. Need to set up dialysis as outpatient. landscaping manager working on discharge planning. 02/27: Patient did not sign the consent for paracentesis yesterday so paracentesis was done today and aspirated 6.2L ascitic fluid. Patient refusing medication per RN. Getting dialysis. Patient noted slightly altered today, will place NG tube remains altered and keep refusing oral meds, order for ammonia level and will cont lactulose. 02/28: Patient appears much more calm and cooperative today. He stated that he has been refusing procedure and medication as he believes he was not in the right state of his mind. Patient acknowledges the importance of being compliant and he promises that he will take the medications as he will be given. Discharge planning per case management as patient would need outpatient dialysis center set up and personal halfway set up. 03/01/21: Patient has skilled nursing setting but according to employment case manager no available RN to accept the patient till Thursday. Continue supportive care. Discharge pending on placement. 03/02/21 -03/04/21: Discharge pending on placement, continue to monitor clinically. Continue current management and plan and supportive care. Patient need SNF placement. 03/05/2021; Awaiting SNF placement for discharge. Prognosis is very poor. Patient is nonresponsive. I try to reach to his son over the phone but could not get in touch. Patient is appropriate for hospice care. 03/06/2021; patient is awaiting SNF placement. Patient was alert and oriented. No confusion. Patient is stable to be discharged back to SNF. 03/07/2021; patient has hemoglobin of 6.8 this morning. A unit of blood ordered. Will monitor H&H. Nephrology is following for dialysis. 03/08/2021; patient's hemoglobin was 6.8 yesterday and transfused a unit of blood. I ordered yesterday to do posttransfusion H&H and was not done. CBC was ordered to be done this morning but was not done. COVID-19 test was done on 03/06 and positive. Nephrology is following the patient for his dialysis. Plan is to discharge him to SNF. Will follow with case management because patient is Covid positive. 03/09/2021; patient's repeat Covid test on 03/08/2021 was positive. Patient is pending for SNF Placement. Patient had hypoglycemia yesterday and patient was placed on Lantus and his sliding scale adjusted to high dose. Will monitor and adjust as needed. 03/10/2021; pending SNF placement. Covid test was positive on and . 03/11/2021; patient has hepatic encephalopathy and his ammonia level is very high, patient is currently on lactulose and rifaximin. Ammonia level is trending down. Nephrology is following for dialysis. Patient has positive Covid test last one was on 03/08, that makes placement difficult. Continue with case management. 03/12: Still awaiting placement, discussed with nursing staff to monitor mental status changes. Will check ammonia level. Continue to adjust blood sugar. Complicated by COVID POSITIVELY. Awaiting placement for the patient. Also dialysis chair time. I have discussed with case management as my understanding was that patient was to go for hospice but this plan appears to have changed possibly not clear to me at this time 03/13: Continue supportive care crush medications that can be crushed. Ammonia level is elevated but not as elevated as previously. Continue lactulose advised nursing staff that this should be given as ordered to communicate with the night team also. Unfortunately when the patient gets better he refuses his lactulose. I truly believe that we should strongly consider palliative care for this patient but nevertheless if he wants to continue dialysis and will be compliant with his medications this is definitely an option can be pursued. Aspiration precautions monitor hemoglobin and platelets. 03/14: Patient seen and examined, more awake today. Continue supportive care, patient was made DNR wade, signed the form today after confirming the patient and also the physician. Monitor for fever. AWAITING PLACEMENT. poor prognosis 03/15/21 Patient is seen and examined. Lab and medication reviewed. Patient denied any chest pain or shortness of breath. Patient is more awake alert today. Patient is getting them hemodialysis today. Continue current management. Awaiting placement. 03/16/21 patient seen and examined. Lab and medication reviewed. Patient feels better. Hemoglobin 8.2 and hematocrit 23.9. Complained of pain in the butt. No other complain. Continue current management and supportive care. Patient is waiting for placement. 03/17: Patient remains with poor prognosis refusing dietary intake. Again discussed hospice and palliative care management considering his current medical condition and declining poor prognostic factors. Discussed with nursing staff patient will continue with lactulose had refused this morning but did take it yesterday. Continue aspiration precautions. Discussed the importance of taking the medication the patient verbalized understanding 03/18: Patient undergoing HD discharge planning ongoing discussed with case management team. Covid test ordered today for placement purposes. 03/19/2021; Covid test was ordered and result is pending. Pending placement. 03/20/2021; patient's Covid test was positive again on 03/20/2021. Pending placement. 03/21/2021. Patient cooperative no acute distress at this time. Complains of loose stool diarrhea. Still awaiting placement. Unable to find hemodialysis placement 03/22/2021. Patient last Covid test was positive however initial test was greater than 14 days ago. Patient is no longer infected. Unable to find hemodialysis line at present. Patient being evaluated for [facility]. 03/23/2021. Patient continues to state he feels good much better at this time. Resting comfortably. No distress noted. Still awaiting hemodialysis center. 03/24/2021 patient with flat mood discussed about depression. Resting comfortably watching TV. 03/25/2021. Patient denies depression at this time. Complains of itching all over. When am i getting out of here 03/26/2021. Case management reports patient is still awaiting hemodialysis placem ent 03/27/2021. Case management reports patient is still awaiting hemodialysis placement. Patient is on maintenance hemodialysis three times a week, MWF schedule. Cont. Lactulose and Rifaximin. Epogen with HD. 03/28/2021. Case management reports patient is still awaiting hemodialysis placement. 03/29/2021. Plan is for the patient to go to [facility] and awaiting on hemodialysis arrangements. [facility] and does not have a bed available. Covid test ordered. We will continue to follow up with case management on discharge planning. 03/30/2021. No new developments. Await hemodialysis placement and potential transfer to [facility]. 03/31/2021. No new developments. Await hemodialysis placement and potential transfer to [facility]. 04/01/2021. Patient resting comfortably. No new issues overnight. Plan is for the patient to go to [facility] and awaiting on hemodialysis arrangements. [facility] and does not have a bed available. Latest Covid test was positive on 03/29/2021. We will continue to follow up with case manag bobby on discharge planning. 04/03/2021 Waiting for transfer to shelter facility 04/04/2021 Waiting for transfer to shelter facility 04/05/2021 Undergoing hemodialysis during making examination Waiting for placement 04/06/2021 Waiting for placement 04/07/2021 Waiting for placement 04/08/2021 Waiting for placement 04/09: Patient seen and examined a little bit lethargic otherwise no new changes. Awaiting placement noted thrombocytopenia continue to monitor. Discussed with case management and Nursing staff. 04/10: Thrombocytopenia persist, continue to monitor. Still with lethargy. Continue to monitor, Aspiration precautions. Continue with HD 04/11: Discussed with case management patient may possibly have a HD time today and will be able to be discharged unfortunately I think patient has a really poor prognosis considering his liver failure and my recommendation remains for hospice management to be considered outpatient. Patient however wants to continue dialysis. We will continue lactulose. 04/12: Today admitted with hyperkalemia expect correction with dialysis. We will recheck BMP in a.m.. Discussed with nursing staff will continue lactulose at this time. Awaiting placement. Poor prognosis 04/13: m continues with very poor prognosis considering overall clinical condition. Family will had a discussion with case management about hospice. Case management working on this while we will continue to work on other discharge plans. 04/14: Tolerating tube feeds awaiting placement and possible hospice placement. 04/15: Brief summary: 55 YO Male with ESRD on HD, Noncompliance with outpatient dialysis, Anemia, HBV, Chronic Liver Disease, Cirrhosis complicated by Esophageal Varices, HTN, Debility, DM presents to ED with confusion with diminished cognition. Patient family report the patient was "not acting like himself" and found to have worsening confusion over the past 2 days. In the ER the patient was found to have hepatic encephalopathy complicated by diminished cognition, end-stage renal disease in need of urgent dialysis, as well as uncontrolled diabetes, and acidosis. Nephrology team consulted in ED and patient was then admitted for further evaluation and Mx. He has been in the hospital for about 55 days continues to go on dialysis. Repeat Covid test has always come back positive although he is not requiring oxygen. He does have intermittent confusion and does not seem to have any good prognosis considering his alcoholic hepatitis. Continue to encourage nurses to give him his lactulose. He is awaiting hospice decision. 04/16; Awaiting hospice decision. Discussed with case management and she told me to send referral to different hospice facilities. 04/17; awaiting acceptance by hospice facilities. Patient had positive Covid ricardo t multiple times. 04/18; pending hospice placement. 04/19; awaiting hospice placement. Patient does not have any family member to take him. 04/22/2021. Case management reports that clinicals were faxed to [facility]. Follow-up with case management with regards to discharge planning/acceptance to hospice. History Interval history: No new issues Hospitalist Physical - Constitutional Vitals: Temp Pulse Resp BP Pulse Ox 98.6 F 83 16 152/79 99 04/22/21 04:37 04/21/21 23:17 04/22/21 04:37 04/22/21 04:37 04/21/21 23:13 General appearance: Present: no acute distress, well-nourished - EENT Eyes: Present: PERRL, EOM intact ENT: hearing intact, clear oral mucosa, dentition normal - Neck Neck: Present: supple, normal ROM - Respiratory Respiratory effort: normal Respiratory: bilateral: CTA - Cardiovascular Rhythm: regular Heart Sounds: Present: S1 & S2. Absent: gallop, rub - Extremities Extremities: no ischemia, No edema, Full ROM - Abdominal General gastrointestinal: soft, non-tender, non-distended, normal bowel sounds - Integumentary Integumentary: Present: clear, warm, dry - Neurologic Neurologic: other (Encephalopathic) Results - Labs CBC & Chem 7: 04/12/21 06:54 04/12/21 06:54 Labs: Laboratory Last Values WBC 3.5 K/mm3 (4.5-11.0) L 04/12/21 06:54 RBC 2.71 M/mm3 (3.65-5.03) L 04/12/21 06:54 Hgb 8.3 gm/dl (11.8-15.2) L 04/12/21 06:54 Hct 25.1 % (35.5-45.6) L 04/12/21 06:54 MCV 93 fl (84-94) 04/12/21 06:54 MCH 31 pg (28-32) 04/12/21 06:54 MCHC 33 % (32-34) 04/12/21 06:54 RDW 20.1 % (13.2-15.2) H 04/12/21 06:54 Plt Count 105 K/mm3 (140-440) L 04/12/21 06:54 Lymph % (Auto) 18.6 % (13.4-35.0) 04/05/21 07:46 [place] % (Auto) 12.6 % (0.0-7.3) H 04/05/21 07:46 Eos % (Auto) 3.4 % (0.0-4.3) 04/05/21 07:46 Baso % (Auto) 1.0 % (0.0-1.8) 04/05/21 07:46 Lymph # (Auto) 0.7 K/mm3 (1.2-5.4) L 04/05/21 07:46 [place] # (Auto) 0.5 K/mm3 (0.0-0.8) 04/05/21 07:46 Eos # (Auto) 0.1 K/mm3 (0.0-0.4) 04/05/21 07:46 Baso # (Auto) 0.0 K/mm3 (0.0-0.1) 04/05/21 07:46 Add Manual Diff Complete 03/07/21 05:23 Total Counted 100 03/07/21 05:23 Seg Neutrophils % 64.4 % (40.0-70.0) 04/05/21 07:46 Seg Neuts % (Manual) 78.0 % (40.0-70.0) H 03/07/21 05:23 Lymphocytes % (Manual) 13.0 % (13.4-35.0) L 03/07/21 05:23 Monocytes % (Manual) 9.0 % (0.0-7.3) H 03/07/21 05:23 Nucleated RBC % Not Reportable 03/07/21 05:23 Seg Neutrophils # 2.3 K/mm3 (1.8-7.7) 04/05/21 07:46 Seg Neutrophils # Man 2.0 K/mm3 (1.8-7.7) 03/07/21 05:23 Band Neutrophils # 0.0 K/mm3 03/07/21 05:23 Lymphocytes # (Manual) 0.3 K/mm3 (1.2-5.4) L 03/07/21 05:23 Abs React Lymphs (Man) 0.0 K/mm3 03/07/21 05:23 Monocytes # (Manual) 0.2 K/mm3 (0.0-0.8) 03/07/21 05:23 Eosinophils # (Manual) 0.0 K/mm3 (0.0-0.4) 03/07/21 05:23 Basophils # (Manual) 0.0 K/mm3 (0.0-0.1) 03/07/21 05:23 Metamyelocytes # 0.0 K/mm3 03/07/21 05:23 Myelocytes # 0.0 K/mm3 03/07/21 05:23 Promyelocytes # 0.0 K/mm3 03/07/21 05:23 Blast Cells # 0.0 K/mm3 03/07/21 05:23 WBC Morphology Not Reportable 03/07/21 05:23 Hypersegmented Neuts Not Reportable 03/07/21 05:23 Hyposegmented Neuts Not Reportable 03/07/21 05:23 Hypogranular Neuts Not Reportable 03/07/21 05:23 Smudge Cells Not Reportable 03/07/21 05:23 Toxic Granulation Not Reportable 03/07/21 05:23 Toxic Vacuolation Not Reportable 03/07/21 05:23 Dohle Bodies Not Reportable 03/07/21 05:23 Pelger-Huet Anomaly Not Reportable 03/07/21 05:23 Cosme Rods Not Reportable 03/07/21 05:23 Platelet Estimate Consistent w auto 03/07/21 05:23 Clumped Platelets Not Reportable 03/07/21 05:23 Plt Clumps, EDTA Not Reportable 03/07/21 05:23 Large Platelets Not Reportable 03/07/21 05:23 Giant Platelets Not Reportable 03/07/21 05:23 Platelet Satelliting Not Reportable 03/07/21 05:23 Plt Morphology Comment Not Reportable 03/07/21 05:23 RBC Morphology Not Reportable 03/07/21 05:23 Dimorphic RBCs Not Reportable 03/07/21 05:23 Polychromasia Not Reportable 03/07/21 05:23 Hypochromasia Not Reportable 03/07/21 05:23 Poikilocytosis Not Reportable 03/07/21 05:23 Anisocytosis Few 03/07/21 05:23 Microcytosis Not Reportable 03/07/21 05:23 Macrocytosis Not Reportable 03/07/21 05:23 Spherocytes Not Reportable 03/07/21 05:23 Pappenheimer Bodies Not Reportable 03/07/21 05:23 Sickle Cells Not Reportable 03/07/21 05:23 Target Cells Not Reportable 03/07/21 05:23 Tear Drop Cells Not Reportable 03/07/21 05:23 Ovalocytes Not Reportable 03/07/21 05:23 Helmet Cells Not Reportable 03/07/21 05:23 Mercado-Parker Strip Bodies Not Reportable 03/07/21 05:23 [place] Rings Not Reportable 03/07/21 05:23 Kathy Cells Not Reportable 03/07/21 05:23 Bite Cells Not Reportable 03/07/21 05:23 Crenated Cell Not Reportable 03/07/21 05:23 Elliptocytes Not Reportable 03/07/21 05:23 Acanthocytes (Spur) Not Reportable 03/07/21 05:23 Rouleaux Not Reportable 03/07/21 05:23 Hemoglobin C Crystals Not Reportable 03/07/21 05:23 Schistocytes Not Reportable 03/07/21 05:23 Malaria parasites Not Reportable 03/07/21 05:23 Samir Bodies Not Reportable 03/07/21 05:23 Hem Pathologist Commnt No 03/07/21 05:23 PT 13.7 Sec. (12.2-14.9) 02/26/21 04:33 INR 1.00 (0.87-1.13) 02/26/21 04:33 Sodium 138 mmol/L (137-145) 04/12/21 06:54 Potassium 5.2 mmol/L (3.6-5.0) H D 04/12/21 06:54 Chloride 98.6 mmol/L (98-107) 04/12/21 06:54 Carbon Dioxide 30 mmol/L (22-30) 04/12/21 06:54 Anion Gap 15 mmol/L 04/12/21 06:54 BUN 62 mg/dL (9-20) H 04/12/21 06:54 Creatinine 7.0 mg/dL (0.8-1.3) H 04/12/21 06:54 Estimated GFR 8 ml/min 04/12/21 06:54 BUN/Creatinine Ratio 9 % 04/12/21 06:54 Glucose 107 mg/dL (75-100) H 04/12/21 06:54 POC Glucose 287 mg/dL (70-105) H 04/22/21 07:45 Hemoglobin A1c 7.4 % (4-6) H 02/26/21 04:33 Calcium 9.4 mg/dL (8.4-10.2) 04/12/21 06:54 Phosphorus 3.40 mg/dL (2.5-4.5) 04/03/21 07:30 Magnesium 2.10 mg/dL (1.7-2.3) 02/17/21 02:24 Iron 52 ug/dL (49-181) 03/30/21 05:11 TIBC 203 mcg/dL (250-450) L 03/30/21 05:11 Ferritin 70.9 ng/mL (30.0-300.0) 03/30/21 05:11 Total Bilirubin 0.60 mg/dL (0.1-1.2) 04/05/21 07:46 Direct Bilirubin 0.3 mg/dL (0-0.2) H 03/14/21 07:24 Indirect Bilirubin 0.3 mg/dL 03/14/21 07:24 AST 34 units/L (5-40) 04/05/21 07:46 ALT 23 units/L (7-56) 04/05/21 07:46 Alkaline Phosphatase 183 units/L (35-129) H 04/05/21 07:46 Ammonia 68.0 umol/L (25-60) H 04/05/21 07:46 Total Creatine Kinase 86 units/L (55-170) 02/17/21 02:24 Total Protein 5.8 g/dL (6.3-8.2) L 04/05/21 07:46 Albumin 2.5 g/dL (3.9-5) L 04/05/21 07:46 Albumin/Globulin Ratio 0.8 % 04/05/21 07:46 Vitamin B12 1583 pg/mL (211-911) H 03/30/21 05:11 Folate 10.11 ng/mL (7.3-26.0) 03/30/21 05:11 TSH 0.986 mlU/mL (0.270-4.200) 02/17/21 02:24 Urine Color Yellow (Yellow) 02/17/21 Unknown Urine Turbidity Clear (Clear) 02/17/21 Unknown Urine pH 6.0 (5.0-7.0) 02/17/21 Unknown Ur Specific [place] 1.012 (1.003-1.030) 02/17/21 Unknown Urine Protein 100 mg/dl mg/dL (Negative) 02/17/21 Unknown Urine Glucose (UA) >=500 mg/dL (Negative) 02/17/21 Unknown Urine Ketones Neg mg/dL (Negative) 02/17/21 Unknown Urine Blood Neg (Negative) 02/17/21 Unknown Urine Nitrite Neg (Negative) 02/17/21 Unknown Urine Bilirubin Neg (Negative) 02/17/21 Unknown Urine Urobilinogen < 2.0 mg/dL (<2.0) 02/17/21 Unknown Ur Leukocyte Esterase Neg (Negative) 02/17/21 Unknown Urine WBC (Auto) 2.0 /HPF (0.0-6.0) 02/17/21 Unknown Urine RBC (Auto) 2.0 /HPF (0.0-6.0) 02/17/21 Unknown U Epithel Cells (Auto) < 1.0 /HPF (0-13.0) 02/17/21 Unknown Urine Bacteria (Auto) 1+ /HPF (Negative) 02/17/21 Unknown Salicylates < 0.3 mg/dL (2.8-20.0) L 02/17/21 02:24 Acetaminophen 5.0 ug/mL (10.0-30.0) L 02/17/21 02:24 Coronavirus (PCR) Negative (Negative) 04/20/21 10:04 Hepatitis A IgM Ab Non-reactive (NonReactive) 02/28/21 12:37 Hep Bs Antigen Non-reactive (Negative) 03/28/21 18:57 Hep B Core IgM Ab Non-reactive (NonReactive) 02/28/21 12:37 Hepatitis C Antibody Non-reactive (NonReactive) 02/28/21 12:37 Blood Type A POSITIVE 03/07/21 06:31 Antibody Screen Negative 03/07/21 06:31 Crossmatch See Detail 03/07/21 06:31 Sr/IV: Voiding Method Incontinent Active Medications - Current Medications Current Medications: Generic Name Dose Route Start Last Admin Trade Name Freq PRN Reason Stop Dose Admin Acetaminophen 650 mg 02/18/21 22:38 03/09/21 13:15 Acetaminophen 325 Mg Tab PO 650 mg Q4H PRN Administration Pain MILD(1-3)/Fever >100.5/MOLINA Albuterol 2.5 mg 02/18/21 22:38 Albuterol 2.5 Mg/3 Ml Nebu IH Q3HRT PRN Shortness Of Breath Allopurinol 100 mg 02/20/21 10:00 04/21/21 10:12 Allopurinol 100 Mg Tab PO 100 mg QDAY LEYLA Administration Calcium Acetate 1,334 mg 02/20/21 08:30 04/22/21 08:36 Calcium Acetate 667 Mg Cap PO 1,334 mg TIDWM LEYLA Administration Dextrose 50 ml 03/29/21 12:00 Dextrose 50% In Water (25gm) 50 Ml Syringe IV Q30MIN PRN HYPOGLYCEMIA Protocol Diphenhydramine HCl 25 mg 02/23/21 09:10 03/24/21 09:01 Diphenhydramine 25 Mg Cap PO 25 mg BID PRN Administration Itching Famotidine 20 mg 02/19/21 10:00 04/21/21 10:12 Famotidine 20 Mg Tab PO 20 mg QAM LEYLA Administration Hydralazine HCl 10 mg 02/18/21 22:56 Hydralazine 20 Mg/1 Ml Inj IV Q6H PRN htn Hydroxyzine HCl 25 mg 03/24/21 10:38 Hydroxyzine Hcl 25 Mg Tab PO Q6H PRN Itching Sodium Chloride 100 mls @ 999 mls/hr 02/19/21 09:06 Nacl 0.9% IV OLIVIA PRN Hypotension Sodium Chloride 100 mls @ 999 mls/hr 04/20/21 07:52 Nacl 0.9% IV OLIVIA PRN Hypotension Insulin Glargine 16 units 03/23/21 09:00 04/21/21 23:17 Insulin Glargine 100 Units/Ml SUB-Q 16 units QHS LEYLA Administration Insulin Human Lispro 0 unit 03/09/21 22:00 04/22/21 08:35 Insulin Lispro 100 Unit/Ml SUB-Q 6 unit ACHS LEYLA Administration Protocol Lactulose 20 gm 03/09/21 18:00 04/22/21 05:49 Lactulose 20 Gm/30 Ml Oral Liqd PO 20 gm Q6HR LEYLA Administration Ondansetron HCl 4 mg 02/18/21 22:38 02/28/21 12:32 Ondansetron 4 Mg/2 Ml Inj IV 4 mg Q8H PRN Administration Nausea And Vomiting Polyethylene Glycol 17 gm 02/24/21 12:08 02/24/21 12:47 Polyethylene Glycol 3350 17 Gm Powder PO 17 gm QDAY PRN Administration Constipation Propranolol HCl 20 mg 02/20/21 10:00 04/21/21 23:17 Propranolol 10 Mg Tab PO 20 mg BID LEYLA Administration Rifaximin 550 mg 03/10/21 12:00 04/21/21 23:17 Rifaximin 550 Mg Tab PO 550 mg BID LEYLA Administration Sodium Chloride 10 ml 02/19/21 10:00 04/21/21 23:20 Sodium Chloride 0.9% 10 Ml Flush Syringe IV Not Given BID LEYLA Sodium Chloride 10 ml 02/18/21 22:38 Sodium Chloride 0.9% 10 Ml Flush Syringe IV PRN PRN LINE FLUSH Zolpidem Tartrate 5 mg 02/24/21 09:54 04/14/21 21:27 Zolpidem 5 Mg Tab PO 5 mg QHS PRN Administration Sleep Nutrition/Malnutrition Assess - Dietary Evaluation Nutrition/Malnutrition Findings: Nutrition Notes Start: 02/19/21 10:48 Freq: Status: Active Protocol: Document 04/19/21 09:48 (Rec: 04/19/21 09:49 [id number]) Nutrition Notes Initial or Follow up Brief Note Current Diagnosis CKD (stage V CKD),Diabetes Other Pertinent Diagnosis COVID-19 (+), hepatic encephalopathy, ascites Current Diet Renal/Consistent CHO + Nepro once daily Subjective/Other Information PT continues to eat 100% of meals. Percent of energy/protein needs met: 100%/100% Current % PO Good (75-100%) Nutrition Intervention Revisit per MD consult or patient Sign Off request:
[2021-04-22] MEDS: PROPRANOLOL 10 MG TAB PO SCH (11:00)
[2021-04-22] MEDS: allopurinoL 100 MG TAB PO SCH (11:00)
[2021-04-22] MEDS: FAMOTIDINE 20 MG TAB PO SCH (11:00)
[2021-04-22] MEDS: RIFAXIMIN 550 MG TAB PO SCH (11:00)
--- NOTE | 2021-04-22 13:56 | Progress Note ---
Assessment and Plan 1. ESRD: Patient is on maintenance hemodialysis three times a week, MWF schedule. Meds dosage based on GFR. Hemodialysis: 02/19, 02/20, 02/22, 02/25, 02/27, 03/01, 03/04, 03/06, 03/08, 03/11, 03/13, 03/15, 03/18, 03/20, 03/22, 03/25, 03/27, 03/29, 04/01, 04/03, 04/05, 04/08, 04/10, 04/12, 04/15, 04/17, 04/20, 04/22. Patient is going to inpatient hospice facility. D/w his son and mother over the phone. They are aware and agreed to stopping dialysis. Hemodialysis stopped. 2. FEN: Monitor lytes and volume status. 3. Anemia, POA: 2/2 ESRD and Liver disease. 4. Cirrhosis with h/o hepatic encephalopathy: Lactulose and Rifaximin. S/p paracentesis 02/27. Monitor. 5. DM type 2: SSI. Monitor. 6. Thrombocytopenia, POA. 7. COVID infection: Isolation precautions. Await transfer to inpatient hospice. Subjective: Patient was seen and examined at the bedside. General Appearance: General appearance: well-developed, appears stated age, not in distress HEENT: ATNC, pupils equal Neck: trachea midline Respiratory: ctab Heart: regular, S1S2, no murmur Abdomen: soft, bowel sounds heard, distended, not tender Integumentary: no rash, warm and dry Neurologic: lethargic, not following any command Ext: no edema, R BKA Hemodialysis access: R arm AVF Subjective Date of service: 04/22/21 Principal diagnosis: Acute encephalopathy Objective - Vital Signs Vital signs: Vital Signs - 12hr 04/22/21 04:37 Temperature 98.6 F Respiratory 16 Rate Blood Pressure 152/79 - Lab 04/12/21 06:54 04/12/21 06:54 Most recent lab results Calcium 9.4 mg/dL (8.4-10.2) 04/12/21 06:54 Phosphorus 3.40 mg/dL (2.5-4.5) 04/03/21 07:30 Magnesium 2.10 mg/dL (1.7-2.3) 02/17/21 02:24 Medications & Allergies - Medications Allergies/Adverse Reactions: Allergies No Known Allergies Allergy (Verified 02/16/21 18:26) Home Medications: Home Medications Medication Instructions Recorded Confirmed Last Taken Type Calcium Acetate [Phoslo] 1,334 mg PO TIDWM #90 capsule 03/01/21 Unknown Rx Famotidine [Pepcid] 20 mg PO QAM #30 tablet 03/01/21 Unknown Rx Lactulose [Cephulac] 20 gm PO Q8HR 30 Days 03/01/21 Unknown Rx Lispro Insulin [HumaLOG] See Protocol SQ ACHS 30 Days 03/01/21 Unknown Rx allopurinoL [Zyloprim] 100 mg PO QDAY #30 tablet 03/01/21 Unknown Rx propranoloL [Inderal] 20 mg PO BID #60 tablet 03/01/21 Unknown Rx Active Medications: Generic Name Dose Route Start Last Admin Trade Name Freq PRN Reason Stop Dose Admin Acetaminophen 650 mg 02/18/21 22:38 03/09/21 13:15 Acetaminophen 325 Mg Tab PO 650 mg Q4H PRN Administration Pain MILD(1-3)/Fever >100.5/MOLINA Albuterol 2.5 mg 02/18/21 22:38 Albuterol 2.5 Mg/3 Ml Nebu IH Q3HRT PRN Shortness Of Breath Allopurinol 100 mg 02/20/21 10:00 04/22/21 11:00 Allopurinol 100 Mg Tab PO Not Given QDAY LEYLA Calcium Acetate 1,334 mg 02/20/21 08:30 04/22/21 12:46 Calcium Acetate 667 Mg Cap PO Not Given TIDWM LEYLA Dextrose 50 ml 03/29/21 12:00 Dextrose 50% In Water (25gm) 50 Ml Syringe IV Q30MIN PRN HYPOGLYCEMIA Protocol Diphenhydramine HCl 25 mg 02/23/21 09:10 03/24/21 09:01 Diphenhydramine 25 Mg Cap PO 25 mg BID PRN Administration Itching Famotidine 20 mg 02/19/21 10:00 04/22/21 11:00 Famotidine 20 Mg Tab PO Not Given QAM LEYLA Hydralazine HCl 10 mg 02/18/21 22:56 Hydralazine 20 Mg/1 Ml Inj IV Q6H PRN htn Hydroxyzine HCl 25 mg 03/24/21 10:38 Hydroxyzine Hcl 25 Mg Tab PO Q6H PRN Itching Sodium Chloride 100 mls @ 999 mls/hr 02/19/21 09:06 Nacl 0.9% IV OLIVIA PRN Hypotension Sodium Chloride 100 mls @ 999 mls/hr 04/20/21 07:52 Nacl 0.9% IV OLIVIA PRN Hypotension Insulin Glargine 16 units 03/23/21 09:00 04/21/21 23:17 Insulin Glargine 100 Units/Ml SUB-Q 16 units QHS LEYLA Administration Insulin Human Lispro 0 unit 03/09/21 22:00 04/22/21 12:46 Insulin Lispro 100 Unit/Ml SUB-Q Not Given ACHS [facility] Protocol Lactulose 20 gm 03/09/21 18:00 04/22/21 05:49 Lactulose 20 Gm/30 Ml Oral Liqd PO 20 gm Q6HR LEYLA Administration Ondansetron HCl 4 mg 02/18/21 22:38 02/28/21 12:32 Ondansetron 4 Mg/2 Ml Inj IV 4 mg Q8H PRN Administration Nausea And Vomiting Polyethylene Glycol 17 gm 02/24/21 12:08 02/24/21 12:47 Polyethylene Glycol 3350 17 Gm Powder PO 17 gm QDAY PRN Administration Constipation Propranolol HCl 20 mg 02/20/21 10:00 04/22/21 11:00 Propranolol 10 Mg Tab PO Not Given BID LEYLA Rifaximin 550 mg 03/10/21 12:00 04/22/21 11:00 Rifaximin 550 Mg Tab PO Not Given BID LEYLA Sodium Chloride 10 ml 02/19/21 10:00 04/22/21 11:01 Sodium Chloride 0.9% 10 Ml Flush Syringe IV Not Given BID LEYLA Sodium Chloride 10 ml 02/18/21 22:38 Sodium Chloride 0.9% 10 Ml Flush Syringe IV PRN PRN LINE FLUSH Zolpidem Tartrate 5 mg 02/24/21 09:54 04/14/21 21:27 Zolpidem 5 Mg Tab PO 5 mg QHS PRN Administration Sleep
[2021-04-22 14:41] VITALS: BP 160/81
--- NOTE | 2021-05-09 06:45 | Discharge Summary ---
Providers - Providers Date of Admission: 02/19/21 16:35 Date of discharge: 04/22/21 Attending physician: CARLINE CHATMAN 02/17/21 02:42 Consult to Case Management [CONS] Stat Services Needed at Discharge: Ccie Notified:: awaiting call back 02/18/21 22:13 Consult to Physician [CONS] Urgent Comment: Dr. Edwards spoke with Dr. Pool @ 0224 Consulting Provider: MOLLY TOVAR Physician Instructions: Reason For Exam: esrd 02/18/21 22:40 Consult to Dietitian/Nutrition [CONS] Routine Physician Instructions: Reason For Exam: Reason for Consult: Diet education 02/19/21 07:34 Consult to Wound/ET Nurse [CONS] Routine Reason For Exam: wound eval 02/22/21 14:04 Consult to Physician [CONS] Routine Comment: Consulting Provider: NEFTALI TRIVEDI Physician Instructions: Reason For Exam: Right hip pain, recent hip fracture post surg 02/26/21 14:06 Occupational Therapy Evaluate and Treat [CONS] Routine Comment: Reason For Exam: Eval & Treat Physical Therapy Evaluation and Treat [CONS] Routine Comment: Reason For Exam: Eval & Treat 02/26/21 22:37 Consult to Wound/ET Nurse [CONS] Routine Reason For Exam: wound eval 02/28/21 23:29 Consult to Wound/ET Nurse [CONS] Routine Reason For Exam: puss coming out between scrotum and penis 03/20/21 22:39 Consult to Wound/ET Nurse [CONS] Routine Reason For Exam: wound eval Primary care physician: SENIOR WRITER Hospitalization Reason for admission: AMS Condition: Fair Hospital course: 55 YO Male with ESRD on HD, Noncompliance with outpatient dialysis, Anemia, HBV, Chronic Liver Disease, Cirrhosis complicated by Esophageal Varices, HTN, Debility, DM presents to ED with confusion with diminished cognition. Patient family report the patient was "not acting like himself" and found to have worsening confusion over the past 2 days. In the ER the patient was found to have hepatic encephalopathy complicated by diminished cognition, end-stage renal disease in need of urgent dialysis, as well as uncontrolled diabetes, and acidosis. Nephrology team consulted in ED and patient was then admitted for further evaluation and Mx. A/p -- Hepatic encephalopathy due to hepatic cirrhosis cont lactulose, Neuro check, seizure precaution, aspiration precaution, fall precautions, continue to monitor. -- End stage renal disease Nephrology team consulted, strict I's/O, monitor urine output every shift, dialysis as per renal team, avoid nephrotoxic agents. --Metabolic Acidosis Nephrology team consulted, dialysis as per renal team. --Hyponatremia Monitor BMP, monitor fluid balance. -- Hyperammonemia Continue lactulose --Diabetes mellitus with hyperglycemia Consistent carb diet, SSI -- hyperkalemia, Improvement with dialysis --Ascitis, s/p paracentesis drained 6.2l of ascitic fluid --Sacral wound, cont wound care -- Moderate Protein Calorie Malnutrition, nutrition consulted --Noncompliance, counseled for medication compliance -- Thrombocytopenia --DVT Px, SCD --DNR code status --Disposition: needs placement, CM waiting for placement -- Hepatic encephalopathy -Patient alert and oriented x3. due to hepatic cirrhosis has resolved cont lactulose, Neuro check, seizure precaution, aspiration precaution, fall precautions, continue to monitor. -Diarrhea resolved was secondary to lactulose. Patient is alert no encephalopathy. -- End stage renal disease Nephrology team consulted, strict I's/O, monitor urine output every shift, dialysis as per renal team, avoid nephrotoxic agents. Await dialysis center. Still no dialysis center. We will dialyze as indicated. --Metabolic Acidosis Nephrology team consulted, dialysis as per renal team. --Hyponatremia Monitor BMP, monitor fluid balance.-Does not require to be checked today we will check every other day now. -- Hyperammonemia Continue lactulose --Pruritus Add Atarax most likely secondary to liver failure --Diabetes mellitus with hyperglycemia Consistent carb diet, SSI -- hyperkalemia, Improvement with dialysis --Ascites, s/p paracentesis drained 6.2l of ascitic fluid -no further ascites at this time. --Sacral wound, pain control continue local wound care. -- Moderate Protein Calorie Malnutrition, nutrition consulted --Noncompliance, counseled for medication compliance --Depression discussed about depression and initiation of Zoloft Waiting for transfer to halfway facility Hospital course: 02/19: Resume dialysis will adjust insulin for better coverage. Very poor progno sis considering poor medical compliance. Agree with hospice recommendation. Will obtain wound care to continue to manage. Monitor anemia as patient was pretty anemic during the last hospitalization. Required transfusion. 02/20: Continues to undergo dialysis no change in mental status noted. Tolerating medications. Blood sugar mildly elevated adjusted insulin yesterday when awake for the patient received a dose today and if still elevated will adjust. Again case management is working on discharge plan for this patient as he is pending placement 02/21 patient complains of right hip pain. He said he fell few weeks ago and is concerned about another fracture. He had a fracture about 8 weeks ago and had surgery. Will obtain X ray right hip. Patient pending placement. 02/22 Patient seen in Dialysis Unit. He states hip pain improved. No other complaints. Right hip X ray done yesterday report read may be healing fracture or acute fracture. Will discuss with Orthopedic Surgeon Patient pending placement 02/23 Less hip pain. Today complains of generalized itching. Will start Benadryl po prn. Orthopedic consulted to evaluate right hip. Patient pending placement 02/24 Less hip pain. Generalized itching now resolved. Orthopedic consulted to evaluate right hip. He complains of sleeplessness. Will give Ambien prn Patient pending placement 02/25 Patient requested DNR status yesterday. I discussed with him and he signed forms. He also complains of worsening abdominal distension and requested tapping, Will order paracentesis. Right hip evaluated by Dr. Trivedi and conservative management recommended. 02/26: Plan for paracentesis today. Need to set up dialysis as outpatient. vocational case manager working on discharge planning. 02/27: Patient did not sign the consent for paracentesis yesterday so paracentesis was done today and aspirated 6.2L ascitic fluid. Patient refusing medication per RN. Getting dialysis. Patient noted slightly altered today, will place NG tube remains altered and keep refusing oral meds, order for ammonia level and will cont lactulose. 02/28: Patient appears much more calm and cooperative today. He stated that he has been refusing procedure and medication as he believes he was not in the right state of his mind. Patient acknowledges the importance of being compliant and he promises that he will take the medications as he will be given. Discharge planning per case management as patient would need outpatient dialysis center set up and personal assisted set up. 03/01/21: Patient has senior care setting but according to showcase maker no available RN to accept the patient till Thursday. Continue supportive care. Discharge pending on placement. 03/02/21 -03/04/21: Discharge pending on placement, continue to monitor clinically. Continue current management and plan and supportive care. Patient need SNF placement. 03/05/2021; Awaiting SNF placement for discharge. Prognosis is very poor. Patient is nonresponsive. I try to reach to his son over the phone but could not get in touch. Patient is appropriate for hospice care. 03/06/2021; patient is awaiting SNF placement. Patient was alert and oriented. No confusion. Patient is stable to be discharged back to SNF. 03/07/2021; patient has hemoglobin of 6.8 this morning. A unit of blood ordered. Will monitor H&H. Nephrology is following for dialysis. 03/08/2021; patient's hemoglobin was 6.8 yesterday and transfused a unit of blood. I ordered yesterday to do posttransfusion H&H and was not done. CBC was ordered to be done this morning but was not done. COVID-19 test was done on 03/06 and positive. Nephrology is following the patient for his dialysis. Plan is to discharge him to SNF. Will follow with case management because patient is Covid positive. 03/09/2021; patient's repeat Covid test on 03/08/2021 was positive. Patient is pending for SNF Placement. Patient had hypoglycemia yesterday and patient was placed on Lantus and his sliding scale adjusted to high dose. Will monitor and adjust as needed. 03/10/2021; pending SNF placement. Covid test was positive on and . 03/11/2021; patient has hepatic encephalopathy and his ammonia level is very high, patient is currently on lactulose and rifaximin. Ammonia level is trending down. Nephrology is following for dialysis. Patient has positive Covid test last one was on 03/08, that makes placement difficult. Continue with case management. 03/12: Still awaiting placement, discussed with nursing staff to monitor mental status changes. Will check ammonia level. Continue to adjust blood sugar. Complicated by COVID POSITIVELY. Awaiting placement for the patient. Also dialysis chair time. I have discussed with case management as my understanding was that patient was to go for hospice but this plan appears to have changed possibly not clear to me at this time 03/13: Continue supportive care crush medications that can be crushed. Ammonia level is elevated but not as elevated as previously. Continue lactulose advised nursing staff that this should be given as ordered to communicate with the night team also. Unfortunately when the patient gets better he refuses his lactulose. I truly believe that we should strongly consider palliative care for this patient but nevertheless if he wants to continue dialysis and will be compliant with his medications this is definitely an option can be pursued. Aspiration precautions monitor hemoglobin and platelets. 03/14: Patient seen and examined, more awake today. Continue supportive care, patient was made DNR wade, signed the form today after confirming the patient and also the physician. Monitor for fever. AWAITING PLACEMENT. poor prognosis 03/15/21 Patient is seen and examined. Lab and medication reviewed. Patient denied any chest pain or shortness of breath. Patient is more awake alert today. Patient is getting them hemodialysis today. Continue current management. Awaiting placement. 03/16/21 patient seen and examined. Lab and medication reviewed. Patient feels better. Hemoglobin 8.2 and hematocrit 23.9. Complained of pain in the butt. No other complain. Continue current management and supportive care. Patient is waiting for placement. 03/17: Patient remains with poor prognosis refusing dietary intake. Again discussed hospice and palliative care management considering his current medical condition and declining poor prognostic factors. Discussed with nursing staff patient will continue with lactulose had refused this morning but did take it yesterday. Continue aspiration precautions. Discussed the importance of taking the medication the patient verbalized understanding 03/18: Patient undergoing HD discharge planning ongoing discussed with case management team. Covid test ordered today for placement purposes. 03/19/2021; Covid test was ordered and result is pending. Pending placement. 03/20/2021; patient's Covid test was positive again on 03/20/2021. Pending placement. 03/21/2021. Patient cooperative no acute distress at this time. Complains of loose stool diarrhea. Still awaiting placement. Unable to find hemodialysis placement 03/22/2021. Patient last Covid test was positive however initial test was greater than 14 days ago. Patient is no longer infected. Unable to find hemodialysis line at present. Patient being evaluated for [facility]. 03/23/2021. Patient continues to state he feels good much better at this time. Resting comfortably. No distress noted. Still awaiting hemodialysis center. 03/24/2021 patient with flat mood discussed about depression. Resting comfortably watching TV. 03/25/2021. Patient denies depression at this time. Complains of itching all over. When am i getting out of here 03/26/2021. Case management reports patient is still awaiting hemodialysis place ment 03/27/2021. Case management reports patient is still awaiting hemodialysis placement. Patient is on maintenance hemodialysis three times a week, MWF schedule. Cont. Lactulose and Rifaximin. Epogen with HD. 03/28/2021. Case management reports patient is still awaiting hemodialysis placement. 03/29/2021. Plan is for the patient to go to [facility] and awaiting on hemodialysis arrangements. [facility] and does not have a bed available. Covid test ordered. We will continue to follow up with case management on discharge planning. 03/30/2021. No new developments. Await hemodialysis placement and potential transfer to [facility]. 03/31/2021. No new developments. Await hemodialysis placement and potential transfer to [facility]. 04/03/2021 Waiting for transfer to halfway facility 04/04/2021 Waiting for transfer to halfway facility 04/05/2021 Undergoing hemodialysis during making examination Waiting for placement 04/06/2021 Waiting for placement 04/07/2021 Waiting for placement 04/08/2021 Waiting for placement 04/09: Patient seen and examined a little bit lethargic otherwise no new changes. Awaiting placement noted thrombocytopenia continue to monitor. Discussed with case management and Nursing staff. 04/10: Thrombocytopenia persist, continue to monitor. Still with lethargy. Continue to monitor, Aspiration precautions. Continue with HD 04/11: Discussed with case management patient may possibly have a HD time today and will be able to be discharged unfortunately I think patient has a really poor prognosis considering his liver failure and my recommendation remains for hospice management to be considered outpatient. 04/12: Today admitted with hyperkalemia expect correction with dialysis. We will recheck BMP in a.m.. Discussed with nursing staff will continue lactulose at this time. Awaiting placement. Poor prognosis 04/13: m continues with very poor prognosis considering overall clinical condition. Family will had a discussion with case management about hospice. Case management working on this while we will continue to work on other discharge plans. 04/14: Tolerating tube feeds awaiting placement and possible hospice placement. 04/15: Brief summary: 55 YO Male with ESRD on HD, Noncompliance with outpatient dialysis, Anemia, HBV, Chronic Liver Disease, Cirrhosis complicated by Esophageal Varices, HTN, Debility, DM presents to ED with confusion with diminished cognition. Patient family report the patient was "not acting like himself" and found to have worsening confusion over the past 2 days. In the ER the patient was found to have hepatic encephalopathy complicated by diminished cognition, end-stage renal disease in need of urgent dialysis, as well as uncontrolled diabetes, and acidosis. Nephrology team consulted in ED and patient was then admitted for further evaluation and Mx. He has been in the hospital for about 55 days continues to go on dialysis. Repeat Covid test has a lways come back positive although he is not requiring oxygen. He does have intermittent confusion and does not seem to have any good prognosis considering his alcoholic hepatitis. Continue to encourage nurses to give him his lactulose. He is awaiting hospice decision. 04/16; Awaiting hospice decision. Discussed with case management and she told me to send referral to different hospice facilities. 04/17; awaiting acceptance by hospice facilities. Patient had positive Covid test multiple times. 04/18; pending hospice placement. 04/19; awaiting hospice placement. Patient does not have any family member to take him. 04/22/2021. Case management reports that clinicals were faxed to [facility]. Follow-up with case management with regards to discharge planning/acceptance to hospice. Dedicated discharge time 40 minutes Disposition: [facility]OS[facility] FAC[facility] Final Discharge Diagnosis (Prints w/discharge instructions): Hepatic en cephalopathy, ESRD, metabolic acidosis, hyponatremia, hyperammonemia, pruritus, diabetes mellitus with hyperglycemia, ascites, sacral wound, moderate protein calorie malnutrition, medical noncompliance, depression Core Measure Documentation - Palliative Care Palliative Care/ Comfort Measures: Hospice Care - Core Measures Any of the following diagnoses?: none Exam - Constitutional Vitals: Temp Pulse Resp BP Pulse Ox 98.2 F 64 16 160/81 97 04/22/21 14:35 04/22/21 14:35 04/22/21 14:35 04/22/21 14:35 04/22/21 14:35 General appearance: Present: no acute distress, cachectic - EENT Eyes: Present: PERRL ENT: hearing intact, clear oral mucosa - Neck Neck: Present: supple, normal ROM - Respiratory Respiratory effort: normal Respiratory: bilateral: diminished - Cardiovascular Heart Sounds: Present: S1 & S2. Absent: rub, click - Extremities Extremities: pulses symmetrical, No edema Peripheral Pulses: within normal limits - Abdominal General gastrointestinal: Present: soft, non-tender, non-distended, normal bowel sounds Male genitourinary: Present: normal - Integumentary Integumentary: Present: clear, warm, dry - Musculoskeletal Musculoskeletal: gait normal, strength equal bilaterally - Psychiatric Psychiatric: appropriate mood/affect, intact judgment & insight - Neurologic Neurologic: other (Encephalopathic) Plan Activity: other (Per hospice recommendation) Weight Bearing Status: Weight Bear as Tolerated Follow up with: MARY LOU RED MD [Staff Physician] - 7 Days PRIMARY CARE, [Primary Care Provider] - 3-5 Days TIP ESCOBAR MD [Staff Physician] - 7 Days Prescriptions: Lactulose [Cephulac] 20 gm PO Q8HR 30 Days Lispro Insulin [HumaLOG] See Protocol SQ ACHS 30 Days propranoloL [Inderal] 20 mg PO BID #60 tablet Famotidine [Pepcid] 20 mg PO QAM #30 tablet Calcium Acetate [Phoslo] 1,334 mg PO TIDWM #90 capsule allopurinoL [Zyloprim] 100 mg PO QDAY #30 tablet
== END 2021-04-22 17:55 | disposition hospice, inpatient (51) | DRG 441 ==
LOC: ED 17:47 → 3A 02-18 22:26 → OBSVTOIN 02-19 16:35 → 3A 03-07 12:27
PROVIDERS: ADMIT Hospitalist; ATTEND Hospitalist
PROC: 5A1D70Z Performance of Urinary Filtration, Intermittent, Less than 6 Hours Per Day (ICD-10-PCS; principal; 2021-02-19)
PROC: 5A1D70Z Performance of Urinary Filtration, Intermittent, Less than 6 Hours Per Day (ICD-10-PCS; 2021-02-20)
PROC: 5A1D70Z Performance of Urinary Filtration, Intermittent, Less than 6 Hours Per Day (ICD-10-PCS; 2021-02-22)
PROC: 5A1D70Z Performance of Urinary Filtration, Intermittent, Less than 6 Hours Per Day (ICD-10-PCS; 2021-02-25)
PROC: 0W9G30Z Drainage of Peritoneal Cavity with Drainage Device, Percutaneous Approach (ICD-10-PCS; 2021-02-27)
PROC: 5A1D70Z Performance of Urinary Filtration, Intermittent, Less than 6 Hours Per Day (ICD-10-PCS; 2021-02-27)
PROC: 5A1D70Z Performance of Urinary Filtration, Intermittent, Less than 6 Hours Per Day (ICD-10-PCS; 2021-03-01)
PROC: 5A1D70Z Performance of Urinary Filtration, Intermittent, Less than 6 Hours Per Day (ICD-10-PCS; 2021-03-04)
PROC: 5A1D70Z Performance of Urinary Filtration, Intermittent, Less than 6 Hours Per Day (ICD-10-PCS; 2021-03-06)
PROC: 30233N1 Transfusion of Nonautologous Red Blood Cells into Peripheral Vein, Percutaneous Approach (ICD-10-PCS; 2021-03-07)
PROC: 5A1D70Z Performance of Urinary Filtration, Intermittent, Less than 6 Hours Per Day (ICD-10-PCS; 2021-03-08)
PROC: 5A1D70Z Performance of Urinary Filtration, Intermittent, Less than 6 Hours Per Day (ICD-10-PCS; 2021-03-11)
PROC: 5A1D70Z Performance of Urinary Filtration, Intermittent, Less than 6 Hours Per Day (ICD-10-PCS; 2021-03-13)
PROC: 5A1D70Z Performance of Urinary Filtration, Intermittent, Less than 6 Hours Per Day (ICD-10-PCS; 2021-03-15)
PROC: 5A1D70Z Performance of Urinary Filtration, Intermittent, Less than 6 Hours Per Day (ICD-10-PCS; 2021-03-18)
PROC: 5A1D70Z Performance of Urinary Filtration, Intermittent, Less than 6 Hours Per Day (ICD-10-PCS; 2021-03-20)
PROC: 5A1D70Z Performance of Urinary Filtration, Intermittent, Less than 6 Hours Per Day (ICD-10-PCS; 2021-03-22)
PROC: 5A1D70Z Performance of Urinary Filtration, Intermittent, Less than 6 Hours Per Day (ICD-10-PCS; 2021-03-27)
PROC: 5A1D70Z Performance of Urinary Filtration, Intermittent, Less than 6 Hours Per Day (ICD-10-PCS; 2021-03-29)
PROC: 5A1D70Z Performance of Urinary Filtration, Intermittent, Less than 6 Hours Per Day (ICD-10-PCS; 2021-04-01)
PROC: 5A1D70Z Performance of Urinary Filtration, Intermittent, Less than 6 Hours Per Day (ICD-10-PCS; 2021-04-03)
PROC: 5A1D70Z Performance of Urinary Filtration, Intermittent, Less than 6 Hours Per Day (ICD-10-PCS; 2021-04-05)
PROC: 5A1D70Z Performance of Urinary Filtration, Intermittent, Less than 6 Hours Per Day (ICD-10-PCS; 2021-04-08)
PROC: 5A1D70Z Performance of Urinary Filtration, Intermittent, Less than 6 Hours Per Day (ICD-10-PCS; 2021-04-10)
PROC: 5A1D70Z Performance of Urinary Filtration, Intermittent, Less than 6 Hours Per Day (ICD-10-PCS; 2021-04-12)
PROC: 5A1D70Z Performance of Urinary Filtration, Intermittent, Less than 6 Hours Per Day (ICD-10-PCS; 2021-04-15)
PROC: 5A1D70Z Performance of Urinary Filtration, Intermittent, Less than 6 Hours Per Day (ICD-10-PCS; 2021-04-17)
PROC: 5A1D70Z Performance of Urinary Filtration, Intermittent, Less than 6 Hours Per Day (ICD-10-PCS; 2021-04-20)
PROC: 5A1D70Z Performance of Urinary Filtration, Intermittent, Less than 6 Hours Per Day (ICD-10-PCS; 2021-04-22)
DX: K72.00 Acute and subacute hepatic failure without coma (principal); N18.6 End stage renal disease; U07.1 COVID-19; K74.60 Unspecified cirrhosis of liver; E87.5 Hyperkalemia; I12.0 Hypertensive chronic kidney disease with stage 5 chronic kidney disease or end stage renal disease; E87.2 Acidosis; E87.1 Hypo-osmolality and hyponatremia; E11.65 Type 2 diabetes mellitus with hyperglycemia; E44.0 Moderate protein-calorie malnutrition; Z68.21 Body mass index [BMI] 21.0-21.9, adult; E72.20 Disorder of urea cycle metabolism, unspecified; D69.6 Thrombocytopenia, unspecified; D63.1 Anemia in chronic kidney disease; B19.9 Unspecified viral hepatitis without hepatic coma; R18.8 Other ascites; E11.22 Type 2 diabetes mellitus with diabetic chronic kidney disease; L29.8 Other pruritus; Z79.4 Long term (current) use of insulin; Z89.512 Acquired absence of left leg below knee; Z87.891 Personal history of nicotine dependence; Z91.15 Patient's noncompliance with renal dialysis; Z66 Do not resuscitate
CPT/HCPCS: 36415; 49083; 71046; 80048; 80053; 80074; 80076; 80320; 81001; 82140; 82550; 82607; 82728; 82747; 82962; 83036; 83550; 83735; 84100; 84443; 85007; 85014; 85018; 85025; 85027; 85610; 86706; 86850; 86900; 86901; 86920; 87086; 94640; 96372; 96374; G0378; G0480; J0610; J0885; J1644; J1815; J2405; J2916; J7040; J7070; P9016; U0003